=== PATIENT | female | born 1965 | race Caucasian/White ===

== ENCOUNTER → 2024-05-20 | Outpatient (CLI) | payer OTHER, SELFPAY ==
[2024-05-20 11:21] LABS: Hemoglobin 15.9 g/dL (12.0-15.0); Mean Corp Hgb Conc 32.4 g/dL (32-36); Mean Corpuscular Hgb 29.9 pg (27.0-32.0); Mean Corpuscular Volume 92.3 fL (81-99); Mean Platelet Vol. 10.1 fl (6.2-12.0); Platelet Count 216 K/mm3 (150-450); RBC Distribution Width CV 12.8 % (11.6-14.6); RBC Distribution Width SD 43.4 fl (35.1-43.9); Red Blood Count 5.31 M/mm3 (4.2-5.4); White Blood Count 9.9 K/mm3 (4.4-11.0)
[2024-05-20 11:54] LABS: AST(SGOT) 17 U/L (15-37); Alanine Aminotransfer ALT/SGPT 26 U/L (13-56); Albumin, Serum 3.7 g/dL (3.2-5.0); Alkaline Phosphatase 64 U/L (45-117); Anion Gap 5 (5-15); BUN 8 mg/dL (7-18); BUN/Creat Ratio 11.9 RATIO (10-20); Calcium,Total 9.4 mg/dL (8.5-10.1); Chloride 109 mmol/L (98-107); Cholesterol 98 mg/dL (200); Creatinine, Serum 0.67 mg/dL (0.55-1.02); EST Glomerular Filtration Rate 95 mL/min (>60); Est Glom Filt Rate - Afr Amer 115 mL/min (>60); Globulin 3.6 g/dL (2.2-4.2); Glucose 135 mg/dL (74-106); High Density Lipoprotein 41 mg/dL; Potassium 3.8 mmol/L (3.5-5.1); Protein, Total 7.3 g/dL (6.4-8.2); Sodium Level 139 mmol/L (136-145); Triglycerides 103 mg/dL; Very Low Density Lipoprotein 21 mg/dL (5-40)
== END | disposition home or self-care (01) ==
LOC: LAB 10:38
PROVIDERS: PCP Preventive Medicine Occupational Medicine; Referring Provider Internal Medicine Cardiovascular Disease; Visit Provider Internal Medicine Cardiovascular Disease
DX: I25.10 Atherosclerotic heart disease of native coronary artery without angina pectoris (principal); I74.09 Other arterial embolism and thrombosis of abdominal aorta; J44.9 Chronic obstructive pulmonary disease, unspecified; E11.9 Type 2 diabetes mellitus without complications
CPT/HCPCS: 36415; 80053; 80061; 85027

== ENCOUNTER → 2024-06-12 | Outpatient (CLI) | payer OTHER, SELFPAY ==
--- NOTE | 2024-06-12 06:56 | ECHOD_ITS ---
Reason For Study: CHEST PAIN Procedure This was a 2D Doppler, Color Flow transthoracic echocardiogram. Exam performed in department. Left Ventricle Normal LV size. Mild concentric left ventricular hypertrophy. The left ventricular ejection fraction is 65 %. Stage 1 diastolic dysfunction. Right Ventricle Normal right ventricle. Atria The left atrium is mildly enlarged. Normal right atrium. Bubble contrast study is negative for PFO/ASD. Mitral Valve There is Mild focal posterior mitral annular calcification. Trivial mitral valve insufficiency. Tricuspid Valve Trivial tricuspid valve insufficiency. Unable to estimate RV systolic pressure due to insufficient tricuspid regurgitant envelope. Aortic Valve Trisinus/trileaflet aortic valve. Pulmonic Valve The pulmonic valve is not well visualized. Great Vessels Calcified aortic root. Pericardium/Pleural No pericardial effusion. Medication Performed a rapid injection of agitated mix of 9 cc saline and 1cc air to assess for atrial septal defect. MMode/2D Measurements & Calculations LVIDd: 3.7 cm IVSd: 1.1 cm LAV(MOD-bp): 38.4 ml LVIDs: 2.4 cm LVPWd: 1.3 cm RVDd: 3.0 cm FS: 35.9 % LAV(MOD-bp) Indexed: 22.5 ml/m2 LAV(MOD-sp2): 53.7 ml LAV(MOD-sp4): 26.7 ml SV(MOD-sp4): 45.2 ml SV(sp4-el): 47.8 ml LVAd ap4: 25.5 cm2 LVLd ap4: 7.8 cm EDV(MOD-sp4): 68.7 ml EDV(sp4-el): 70.4 ml LVAs ap4: 13.5 cm2 LVLs ap4: 6.8 cm ESV(MOD-sp4): 23.6 ml ESV(sp4-el): 22.5 ml EF(MOD-sp4): 65.7 % EF(sp4-el): 68.0 % LA dimension(2D): 4.0 cm LA A4 area: 13.6 cm2 RA A4 area: 14.1 cm2 Time Measurements MV dec time: 0.16 sec Doppler Measurements & Calculations MV E max kj: 54.0 cm/sec Lat Peak E' Kj: 11.8 cm/sec Med Peak E' Kj: 8.6 cm/sec MV A max kj: 79.7 cm/sec E/E' lat: 4.6 E/E' med: 6.3 MV E/A: 0.68 MV V2 max: 90.0 cm/sec MV dec slope: 352.2 cm/sec2 Ao V2 max: 145.8 cm/sec MV max P.2 mmHg Ao max P.5 mmHg MV V2 mean: 60.5 cm/sec Ao V2 mean: 100.4 cm/sec MV mean P.6 mmHg Ao mean P.6 mmHg MV V2 VTI: 23.8 cm Ao V2 VTI: 31.7 cm AV (velocity ratio): 0.69 LV V1 max: 103.5 cm/sec PA V2 max: 85.1 cm/sec LV V1 max P.3 mmHg PA V2 mean: 67.3 cm/sec LV V1 mean P.7 mmHg LV V1 mean: 78.3 cm/sec LV V1 VTI: 21.8 cm ECHO/Echo Complete Interpretation Summary Mild concentric left ventricular hypertrophy. The left ventricular ejection fraction is 65 %. Stage 1 diastolic dysfunction. The left atrium is mildly enlarged. There is Mild focal posterior mitral annular calcification. Calcified aortic root. Ordering Physician: Andrew Maldonado Referring Physician: Andrew Maldonado Performed By: Marielos Cool RCS
--- NOTE | 2024-06-15 09:59 | STRESSREP_ITS ---
Stress Test Report Date: 06/12/2024 Procedure: Pharmacologic stress nuclear imaging study Indications: Chest pain Consent: Per the patient Procedure: The patient underwent pharmacologic (Regadenoson 0.4mg ) evaluation with a peak heart rate of 102 beats per minute (63%predicted maximal heart rate) and a peak blood pressure of 108/62 mmHg. The baseline ECG demonstrated sinus rhythm. The peak pharmacologic ECG demonstrated no ischemic changes. There were no cardiac dysrhythmias pretest, during pharmacologic infusion, or recovery. There was no complaint of chest discomfort during pharmacologic infusion or recovery. The patient was injected with 11.9 millicuries of technetium 99m Cardiolite and subsequently rest SPECT Cardiolite nuclear imaging was obtained in the horizontal long, vertical long, and short axis views. The patient underwent pharmacologic (Regadenoson) evaluation. The patient was injected with 34.7 millicuries of technetium 99m Cardiolite and subsequently stress SPECT Cardiolite nuclear imaging was obtained in the horizontal long, vertical long, and short axis views. A gated Cardiolite study at peak stress was obtained. The examination was stopped secondary to completion of protocol. Rest and stress SPECT Cardiolite nuclear imaging status post realignment, normalization, and attenuation correction demonstrate mildly decreased perfusion of the apex both in the breast as well as post pharmacological stress. Normal wall motion suggests attenuation artifact. There is end systolic thickening and brightening. The gated Cardiolite study demonstrates myocardial thickening and inward wall motion. The reported LVEF is 75%. Impression: 1. Pharmacologic (Regadenoson) evaluation 2. Peak pharmacologic ECG with no ischemic changes. 3. There were no cardiac dysrhythmias pretest, during pharmacologic infusion, or recovery. 5. Rest and stress SPECT Cardiolite nuclear imaging demonstrate relative uniform tracer uptake and myocardial perfusion appearing within normal limits. 6. The gated Cardiolite study reports an LVEF of 75%. This note was generated with [employer] software. It may contain incorrect words, spelling, and punctuation that were not noted in checking the note before signing.
== END | disposition home or self-care (01) ==
LOC: CVS 06:53
PROVIDERS: PCP Registered Nurse; Referring Provider Internal Medicine Cardiovascular Disease; Visit Provider Internal Medicine Cardiovascular Disease
DX: I25.10 Atherosclerotic heart disease of native coronary artery without angina pectoris (principal); I74.09 Other arterial embolism and thrombosis of abdominal aorta; J44.9 Chronic obstructive pulmonary disease, unspecified; E11.9 Type 2 diabetes mellitus without complications; G47.33 Obstructive sleep apnea (adult) (pediatric); E78.5 Hyperlipidemia, unspecified
CPT/HCPCS: 78452; 93017; 93306; A9500; A4216; J2785

== ENCOUNTER → 2024-08-19 | Outpatient (CLI) | payer MEDICAID, SELFPAY | END | disposition home or self-care (01) | PROVIDERS: PCP Registered Nurse; Referring Provider Internal Medicine Cardiovascular Disease; Visit Provider Internal Medicine Cardiovascular Disease | DX: J44.9 Chronic obstructive pulmonary disease, unspecified (principal); I25.10 Atherosclerotic heart disease of native coronary artery without angina pectoris; I51.89 Other ill-defined heart diseases; R06.09 Other forms of dyspnea | CPT/HCPCS: 94060; 94726; 94729 ==

== ENCOUNTER 2024-09-02 08:15 | Day surgery (SDC) | payer MEDICAID, SELFPAY ==
[2024-09-01 07:51] VITALS: BMI 25.0
[2024-09-02 09:12] LABS: Absolute Lymphocyte Count 2.58 X10^3/uL (0.83-4.51); Absolute Neutrophil Count 5.6 X10^3/uL (2.0-7.7); Basophil# 0.09 X10^3/uL; Eosinophil# 0.07 X10^3/uL; Eosinophils% 0.8 % (0-5); Hematocrit 50.8 % (37-47); Hemoglobin 16.7 g/dL (12.0-15.0); Lymphocyte # 2.58 X10^3/ul (0.83-4.51); Lymphocyte % 28.1 % (19-41); Mean Corp Hgb Conc 32.9 g/dL (32-36); Mean Corpuscular Hgb 30.2 pg (27.0-32.0); Mean Corpuscular Volume 91.9 fL (81-99); Mean Platelet Vol. 9.6 fl (6.2-12.0); Monocyte# 0.78 X10^3/uL; Monocyte% 8.5 % (0-10); NRBC Flagged by Analyzer 0 % (0-5); Neutrophil # 5.58 X10^3/uL (2.7-7.7); Neutrophil % 60.8 % (47-70); Platelet Count 225 K/mm3 (150-450); RBC Distribution Width CV 12.4 % (11.6-14.6); Red Blood Count 5.53 M/mm3 (4.2-5.4); White Blood Count 9.2 K/mm3 (4.4-11.0)
[2024-09-02 09:36] LABS: Anion Gap 5 (5-15); BUN 17 mg/dL (7-18); BUN/Creat Ratio 22.8 RATIO (10-20); Calcium,Total 9.4 mg/dL (8.5-10.1); Chloride 108 mmol/L (98-107); Creatinine, Serum 0.75 mg/dL (0.55-1.02); EST Glomerular Filtration Rate 84 mL/min (>60); Est Glom Filt Rate - Afr Amer 102 mL/min (>60); Estimated Creatinine Clearance 74.69 ml/min; Glucose 176 mg/dL (74-106); Potassium 3.9 mmol/L (3.5-5.1); Sodium Level 139 mmol/L (136-145)
--- NOTE | 2024-09-02 10:24 | PCM.HP.STD ---
HPI - General HPI Narrative CHIDI VELASQUEZ, is a 59 F who presents with prior left common iliac artery stent with stenosis proximal to leading edge adjacent to bifurcation. She presents for angiogram with possible intervention to preserve stent patency [facility] Medical History Aortoiliac occlusive disease Atherosclerosis of [place] arteries of extremities with rest pain, left leg COPD (chronic obstructive pulmonary disease) Coronary artery disease CALVIN (generalized anxiety disorder) Hyperlipidemia Lumbar foraminal stenosis MDD (major depressive disorder) AVE (obstructive sleep apnea) Peripheral neuropathy Type 2 diabetes mellitus Home Medications ?Medication ?Instructions ?Recorded ?Last Taken ?Type mometasone 220 mcg/actuation(60 220 mcg inhalation BID 07/03/14 Unknown History doses) breath activated powder inhaler (Asmanex Corso12haler) sitagliptin phosphate 50 1 ea PO BID 07/03/14 09/01/24 History mg-metformin 500 mg tablet (Janumet) atorvastatin 40 mg tablet 40 mg PO DAILY 05/12/24 Unknown History gabapentin 600 mg tablet 600 mg PO DAILY 05/12/24 Unknown History methocarbamol 500 mg tablet 500 mg PO QHS 05/12/24 Unknown History metoprolol succinate 25 mg capsule 25 mg PO DAILY 05/12/24 Unknown History sprinkle, ext. release 24 hr pantoprazole 40 mg tablet,delayed 40 mg PO DAILY 05/12/24 Unknown History release tiotropium bromide 2.5 2 puff inhalation DAILY 05/12/24 Unknown History mcg/actuation mist for inhalation (Spiriva Respimat) albuterol sulfate 90 mcg/actuation 1 inh inhalation ONCE 05/20/24 Unknown History aerosol inhaler clopidogrel 75 mg tablet 75 mg PO QDAY 05/20/24 09/01/24 History empagliflozin 10 mg tablet 10 mg PO DAILY 05/20/24 09/01/24 History (Jardiance) lidocaine 5 % topical patch 1 patch topical DAILY 05/20/24 Unknown History tramadol 50 mg tablet 50 mg PO DAILY 05/20/24 Unknown History aripiprazole 5 mg tablet 5 mg PO QDAY 08/11/24 Unknown History escitalopram oxalate 20 mg tablet 20 mg PO QDAY 08/11/24 Unknown History hydroxyzine HCl 25 mg tablet 25 mg PO TID 08/11/24 Unknown History Allergy/AdvReac Type Severity Reaction Status Date / Time No Known Allergies Allergy Verified 08/11/24 10:18 Family History Mother Heart disease Father Cancer Surgical History History of cardiac catheterization History of carotid endarterectomy History of cholecystectomy History of colonoscopy History of hysterectomy History of oophorectomy History of spinal surgery Hx of CABG Presence of stent in coronary artery S/P insertion of iliac artery stent (~05/2022) Social History Smoking Status: Former smoker Tobacco: How many years used: 38 how long ago did patient quit smokin months Vital Signs Vital Signs Vital Signs: Weight Weight: 146 lb Body Mass Index (BMI) 25.0 Physical Exam Const alert, oriented x3, no apparent distress and healthy appearing General Appearance: cooperative; Negative for combative or lethargic Orientation / Consciousness: awake Exam Limitations: no limitations HEENT Head and Scalp: normocephalic and atraumatic Eyes EOMs intact bilaterally General Eye: normal appearance of both eyes Neck full ROM General: trachea midline Resp normal respiratory effort and no use of accessory muscles Effort and Inspection: Negative for labored, stridor or audible wheezes Cardio regular rate and regular rhythm Back/Spine Cervical Spine: cervical ROM normal Extremity full ROM, normal capillary refill and no clubbing, cyanosis or edema Skin no rashes or lesions noted and no wounds Neuro oriented x3, CN's II-XII intact bilaterally, no focal motor deficits and no sensory deficits noted Psych thought process normal, cooperative, affect normal, speech normal and activity/motor behavior normal Results Lab / Micro Data 09/02/24 08:59 09/02/24 08:59 Labs: Laboratory Results - last 24 hr 09/02/24 08:59: WBC 9.2, RBC 5.53 H, Hgb 16.7 H, Hct 50.8 H, MCV 91.9, MCH 30.2, MCHC 32.9, RDW Std Deviation 42.0, RDW Coeff of [place] 12.4, Plt Count 225, MPV 9.6, Immature Gran % (Auto) 0.800, Neut % (Auto) 60.8, Lymph % (Auto) 28.1, [place] % (Auto) 8.5, Eos % (Auto) 0.8, Baso % (Auto) 1.0, Absolute Neuts (auto) 5.6, Absolute Lymphs (auto) 2.58, Nucleated RBC % 0, Sodium 139, Potassium 3.9, Chloride 108 H, Carbon Dioxide 26.0, Anion Gap 5, BUN 17, Creatinine 0.75, Estim Creat Clear Calc 74.69, Est GFR (MDRD) Af Amer 102, Est GFR (MDRD) Non-Af 84, BUN/Creatinine Ratio 22.8 H, Glucose 176 H, Calcium 9.4 Assessment & Plan Assessment/Plan (1) Peripheral arterial disease: PLAN: -angiogram possible kissing iliac stents
--- NOTE | 2024-09-02 16:42 | OP.PCM_ITS ---
Operative Report (Standard) Operative Information Surgery/Procedure Performed: Aortogram and pelvic angiogram Intravascular ultrasound aorta, left common iliac, left external iliac arteries Angioplasty and stent of the left common iliac artery Surgeon: Alejandro Quintana Date of Procedure: 09/02/24 Procedure Start Time: 11:00 Procedure Stop Time: 12:00 Pre-Operative Diagnosis: Atherosclerosis with claudication of left lower extremity with stenosis above prior iliac stent, at risk of stent Post-Operative Diagnosis: Same Select all DRAINS/GRAFTS/IMPLANTS that apply: Implanted device Implanted device details: Bard Lifestream 9x58 balloon expandable covered stent Type of Anesthesia: Local and Sedation,Conscious Estimated Blood Loss: 3 Specimen collected: No Description of surgery: HPI: Patient is a 59-year-old female who previously underwent a left common iliac artery stenting for lifestyle limiting claudication in 2021 at an outside facility. She had minimal improvement in her symptoms and subsequent surveillance vascular studies have suggested worsening left lower extremity perfusion. She had a CT angiography which revealed greater than 60% stenosis of the common iliac artery just proximal to the previously placed stent. Is unclear whether this was missed at the original intervention or if this has been progression of disease adjacent to the stent. She presents now for angiography with possible iliac artery intervention. Description of procedure: Upon obtaining form consent and verification correct patient procedure site patient was taken to the Application Software [facility] where she was positioned prepped and draped in usual sterile fashion. Timeouts performed consultation ministered Versed and fentanyl. Skin overlying the left common femoral artery was anesthetized 1% lidocaine the vessel accessed under ultrasound guidance with micropuncture needle wire. This was then exchanged for micropuncture sheath through which injection iliofemoral angiogram was performed revealing satisfactory positioning with no extravasation or dissection. This revealed stenosis at the inferior aspect of the prior stent as well as superior to it. There is also poor stent wall apposition of the distal aspect. Through the micropuncture sheath a Bentson wire was advanced traversing the prior stent and into the abdominal aorta. The micropuncture sheath was exchanged for a short 5 [place] sheath and through this an Omni Flush catheter advanced into the abdominal aorta and digital traction aortogram pelvic angiogram was performed. This revealed that there was no significant atherosclerosis at the origin of the contralateral iliac artery and the lesion appeared to be just below the left common iliac artery origin. So there is potentially room to perform intervention without the need for kissing iliac stents. An 018 wire was then advanced through the flush catheter which was then withdrawn and intravascular ultrasound probe advanced and recorded pullback performed of the aorta, left common iliac artery, left external iliac artery. This confirmed severe stenosis greater than 80% just superior to the previously placed stent as well as a mobile dissection flap inferior to the stent. This also revealed that the stent was fairly undersized compared to the [place] vessel. Finally this confirmed that we were able to treat the culprit lesion without need to extend to the aorta. The patient was then heparinized allowed to circulate for 3 minutes. The intravascular ultrasound probe was withdrawn and the catheter readvanced, the 018 wire exchanged for the Bentson wire and the 5 [place] sheath exchanged for 7 [place] Brite tip sheath. A marker catheter was then advanced in the position and magnified subtraction angiography performed of the iliac artery. This confirmed need for approximately 6 cm length stent. A Bard Lifestream 9 x 58 balloon expandable covered stent was then brought in field prep for manufactures instructions. This was then advanced into position with satisfactory coverage of the proximal lesion and inferior to the aortic bifurcation. The stent also covered the dissection inferior to the prior stent and landed cephalad to the internal iliac artery origin. Balloon was then inflated to nominal and then deflated withdrawn. Repeat angiography revealed satisfactory stent positioning with no residual stenosis either proximal or distal and no extravasation or dissection. The pre-existing dissection was covered in its entirety. There was poor stent to wall apposition at the distal aspect so a 10 mm x 2 angioplasty balloon was then advanced into the inferior aspect of the stent and inflated to nominal and then deflated withdrawn. Repeat angiography revealed improved stent wall apposition. The flush catheter then readvanced into the abdominal aorta and completion subtraction angiography performed in this position which revealed brisk contrast transit with no extravasation or dissection. There is no compromise of the contralateral iliac artery. Injection of this position did not reveal any contrast outside the distal aspect of the stent. A Mynx closure device was then deployed followed by 5 minutes minute pressure with satisfactory stasis noted. The patient was taken recovery area with plan discharged to home. Surgical Findings: See above. 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
== END 2024-09-02 23:59 | disposition home or self-care (01) ==
PROVIDERS: PCP Registered Nurse; Referring Provider Surgery Trauma Surgery; Visit Provider Surgery Trauma Surgery
DX: I73.9 Peripheral vascular disease, unspecified (principal); J44.9 Chronic obstructive pulmonary disease, unspecified; E11.51 Type 2 diabetes mellitus with diabetic peripheral angiopathy without gangrene; E11.42 Type 2 diabetes mellitus with diabetic polyneuropathy; I25.10 Atherosclerotic heart disease of native coronary artery without angina pectoris; E78.5 Hyperlipidemia, unspecified; G47.33 Obstructive sleep apnea (adult) (pediatric); Z95.820 Peripheral vascular angioplasty status with implants and grafts; Z79.51 Long term (current) use of inhaled steroids; Z87.891 Personal history of nicotine dependence; Z79.02 Long term (current) use of antithrombotics/antiplatelets; Z79.899 Other long term (current) drug therapy; Z79.84 Long term (current) use of oral hypoglycemic drugs; Z95.5 Presence of coronary angioplasty implant and graft; Z95.1 Presence of aortocoronary bypass graft
CPT/HCPCS: 36200; 36415; 37221; 37252; 37253; 75625; 76937; 80048; 85025; 99152; 99153; C1753; C1760; C1769; C1874; C1894; Q9967; C1725

== ENCOUNTER → 2024-10-01 | Outpatient (CLI) | payer MEDICAID, SELFPAY ==
[2024-10-01 11:48] LABS: Absolute Lymphocyte Count 4.04 X10^3/uL (0.83-4.51); Absolute Neutrophil Count 5.4 X10^3/uL (2.0-7.7); Basophil# 0.16 X10^3/uL; Basophil% 1.5 % (0-1); Eosinophil# 0.14 X10^3/uL; Eosinophils% 1.3 % (0-5); Hematocrit 49.5 % (37-47); Hemoglobin 16.3 g/dL (12.0-15.0); Lymphocyte # 4.04 X10^3/ul (0.83-4.51); Mean Corp Hgb Conc 32.9 g/dL (32-36); Mean Corpuscular Hgb 30.7 pg (27.0-32.0); Mean Corpuscular Volume 93.2 fL (81-99); Mean Platelet Vol. 9.6 fl (6.2-12.0); Monocyte# 0.73 X10^3/uL; Monocyte% 6.9 % (0-10); NRBC Flagged by Analyzer 0 % (0-5); Neutrophil # 5.43 X10^3/uL (2.7-7.7); Neutrophil % 51.1 % (47-70); POSITIVE MORPHOLOGY YES; Platelet Count 235 K/mm3 (150-450); RBC Distribution Width CV 12.5 % (11.6-14.6); RBC Distribution Width SD 42.7 fl (35.1-43.9); Red Blood Count 5.31 M/mm3 (4.2-5.4); White Blood Count 10.6 K/mm3 (4.4-11.0)
[2024-10-01 11:53] LABS: Differential Indicated SCAN CRITERIA MET
[2024-10-01 13:51] LABS: Atypical Lymphocyte 1+ %; Platelet Estimate ADEQUATE (ADEQ); Red Cell Morphology NORM C+C NORMAL (NORM C&C)
[2024-10-04 12:07] LABS: Alternaria tenuis <0.10 kU/L (Class 0); Ash, White <0.10 kU/L (Class 0); Aspergillus fumigatus <0.10 kU/L (Class 0); Bermuda Grass <0.10 kU/L (Class 0); Birch <0.10 kU/L (Class 0); Black Walnut <0.10 kU/L (Class 0); Cat Hair / Dander,Stand <0.10 kU/L (Class 0); Cedar, Mountain <0.10 kU/L (Class 0); Cladosporium herbarum <0.10 kU/L (Class 0); Cockroach, American <0.10 kU/L (Class 0); Cottonwood <0.10 kU/L (Class 0); D farinae Mite <0.10 kU/L (Class 0); D pteronyssinus <0.10 kU/L (Class 0); Dog Epithelia <0.10 kU/L (Class 0); Elm, American White <0.10 kU/L (Class 0); Immunoglobulin E 9 IU/mL (6-495); Maple/Box Elder <0.10 kU/L (Class 0); Mouse Urine <0.10 kU/L (Class 0); Mulberry, White <0.10 kU/L (Class 0); Oak, White <0.10 kU/L (Class 0); Pecan <0.10 kU/L (Class 0); Penicillium Notatum <0.10 kU/L (Class 0); Pigweed, Rough <0.10 kU/L (Class 0); Ragweed, Short/Common <0.10 kU/L (Class 0); Russian Thistle <0.10 kU/L (Class 0); Sheep Sorrel <0.10 kU/L (Class 0); Sycamore, American <0.10 kU/L (Class 0); Timothy Grass <0.10 kU/L (Class 0)
[2024-10-05 09:07] LABS: Immunoglobulin E 8 IU/mL (6-495)
== END | disposition home or self-care (01) ==
LOC: PAVLAB 11:28
PROVIDERS: PCP Registered Nurse; Referring Provider Internal Medicine Critical Care Medicine; Visit Provider Internal Medicine Critical Care Medicine
DX: J45.909 Unspecified asthma, uncomplicated (principal); F17.211 Nicotine dependence, cigarettes, in remission
CPT/HCPCS: 36415; 82785; 85025; 86003

== ENCOUNTER → 2024-10-14 | Outpatient (CLI) | payer MEDICAID, SELFPAY ==
--- NOTE | 2024-10-14 12:35 | ADUL_ITS ---
Reason For Study: S/P L YEIMY Stent Left Velocities Ext. Iliac Artery, dist = 106.7 cm./sec. Common Femoral Artery, mid = 119.0 cm./sec. Supf Femoral Artery, prox = 100.8 cm./sec. Supf Femoral Artery, mid = 80.1 cm./sec. Supf Femoral Artery, dist. = 52.7 cm./sec. Profunda Femoral Artery = 85.3 cm./sec. Popliteal Artery, mid = 53.9 cm./sec. Post. Tibial Artery, prox = 82.1 cm./sec. Post. Tibial Artery, mid = 57.6 cm./sec. Post. Tibial Artery, dist = 94.4 cm./sec. Peroneal Artery, prox = 39.2 cm./sec. Peroneal Artery, mid = 45.3 cm./sec. Peroneal Artery,dist = 35.5 cm./sec. Ant. Tibial Artery, prox = 47.8 cm./sec. Ant. Tibial Artery, mid = 60.0 cm./sec. Ant. Tibial Artery, dist = 78.4 cm./sec. Procedure Exam performed in department. VL/US Art Duplex Unilat Lower Ext Interpretation Summary Left lower extremity arteries patent with normal velocities and no evidence of stenosis Ordering Physician: Marlee Araujo Referring Physician: Ce Loza NP Performed By: Vicenta Marie RVT and Student
--- NOTE | 2024-10-14 12:35 | ART_ITS ---
Reason For Study: S/P L YEIMY Stent Procedure A bilateral lower extremity continuous wave Doppler with analog waveform analysis and ankle brachial indexes. Left Segmental Pressures Left brachial= 111mmHg. Left posterior tibial artery = 109mmHg. Left dorsalis pedis artery = 117mmHg. Left digit = 66 mmHg. The left dorsalis pedis waveforms are triphasic. The left posterior tibial artery waveforms are triphasic. Right Segmental Pressures Right brachial= 112mmHg. Right posterior tibial artery = 108mmHg. Right dorsalis pedis artery = 121mmHg. Right digit = 71 mmHg. The right dorsalis pedis waveforms are triphasic. The right posterior tibial artery waveforms are triphasic. Indices The right ankle brachial index by the dorsalis pedis is 1.08. The right ankle brachial index by the posterior tibial artery is 0.96. The right digital-brachial index is 0.63. The left ankle brachial index by the dorsalis pedis is 1.04. The left ankle brachial index by the posterior tibial artery is 0.97. The left digital-brachial index is 0.59. VL/Ankle Brachial Index Interpretation Summary Right TASIA 1.08, normal. Doppler/PVR waveforms of the right ankle normal at rest . TBI diminished, pedal.digit disease vs spasm Left TASIA 1.04, normal. Doppler/PVR waveforms of the left ankle normal at rest. TBI diminished, pedal.digit disease vs spasm Ordering Physician: Marlee Araujo Referring Physician: MARLEE ARAUJO Performed By: Vicenta Marie RVT and Student
== END | disposition home or self-care (01) ==
LOC: CVS 12:33
PROVIDERS: PCP Registered Nurse; Referring Provider Physician Assistant; Visit Provider Physician Assistant
DX: Z48.812 Encounter for surgical aftercare following surgery on the circulatory system (principal); I73.9 Peripheral vascular disease, unspecified
CPT/HCPCS: 93922; 93926

== ENCOUNTER → 2024-10-15 | Outpatient (CLI) | payer MEDICAID, SELFPAY ==
[2024-10-15 11:38] VITALS: PULSE 87; PULSE 90; PULSE 92; PULSE 94; PULSE 95; O2SAT 95; O2SAT 96; O2SAT 97
--- NOTE | 2024-10-19 10:29 | PCM.PSN.6M ---
PSN 6 Minute Walk Test 6 Minute Walk Test 6 Minute Walk Test: 6 Minute Walk Test PSN:6-Minute Walk Test Start: 10/15/24 11:38 Freq: Status: Active Protocol: [id number].[id number] Document 10/15/24 11:38 EW (Rec: 10/15/24 11:40 EW [id number]) 6 Minute Walk Test Date Performed 10/15/24 Time Performed 11:30 Height 5 ft 2 in Weight: 157 lb Weight in Pounds 157.0 lbs Assistive device used: None Pre-test Oxygen Delivery Method Room Air Pulse Ox (%) 97 Pulse Rate (60-100 beats/min) 90 Dyspnea Fran Scale (0-10) 0 Exertion Fran Scale (6-20) 7 1st minute Oxygen Delivery Method Room Air Pulse Ox (%) 95 Pulse Rate (60-100 beats/min) 94 2nd minute Oxygen Delivery Method Room Air Pulse Ox (%) 96 Pulse Rate (60-100 beats/min) 92 3rd minute Oxygen Delivery Method Room Air Pulse Ox (%) 96 Pulse Rate (60-100 beats/min) 95 4th minute Oxygen Delivery Method Room Air Pulse Ox (%) 95 Pulse Rate (60-100 beats/min) 94 5th minute Oxygen Delivery Method Room Air Pulse Ox (%) 95 Pulse Rate (60-100 beats/min) 94 6th minute Oxygen Delivery Method Room Air Pulse Ox (%) 95 Pulse Rate (60-100 beats/min) 90 Post-test Oxygen Delivery Method Room Air Pulse Ox (%) 97 Pulse Rate (60-100 beats/min) 87 Dyspnea Fran Scale (0-10) 1 Exertion Frna Scale (6-20) 14 Full Laps Walked 17 Partial Lap, Number of Tiles Walked 0 Total Distance Walked (ft) 1003 Interpretation Interpretation: The patient ambulated 1003 feet over the course of 6 minutes beginning on room air without assistive devices. Pretesting oxygen saturation was noted to be 97% on room air. With ambulation, the jerel oxygen saturation was 95%. There was no significant exertional oxygen desaturation. Recommendations Recommendations: There is no indication for the use of supplemental oxygen at this time.
== END | disposition home or self-care (01) ==
LOC: PSN 11:14
PROVIDERS: PCP Registered Nurse; Referring Provider Internal Medicine Critical Care Medicine; Visit Provider Internal Medicine Critical Care Medicine
DX: F17.211 Nicotine dependence, cigarettes, in remission (principal); J45.909 Unspecified asthma, uncomplicated
CPT/HCPCS: 94618

== ENCOUNTER → 2024-10-17 | Outpatient (CLI) | payer MEDICAID, SELFPAY ==
--- NOTE | 2024-10-17 07:34 | CT_ITS ---
EXAM: CT CHEST, LUNG CANCER SCREENING WITHOUT INTRAVENOUS CONTRAST CLINICAL INDICATION: h/o tobacco dependency TECHNIQUE: Helically acquired images were obtained of the chest without intravenous contrast using low dose (LDCT) lung cancer screening protocol. This CT exam was performed using one or more of the following dose reduction techniques: automated exposure control, adjustment of the mA and/or kV according to patient size, and/or use of iterative reconstruction technique. COMPARISON: No relevant prior studies available. FINDINGS: LUNGS AND PLEURAL SPACES: Paraseptal emphysematous changes of the upper lobes of lungs noted. No pleural effusion or thickening. No pneumothorax. No evidence of a lung mass or nodule. HEART: Surgical changes of coronary artery bypass graft (CABG). No pericardial effusion. Normal heart size. Coronary artery calcification and stents are present. MEDIASTINUM: Normal. No mediastinal or hilar adenopathy. Esophagus is unremarkable. No hiatal hernia. THYROID: Normal. No thyroid nodules or calcification. BONES/JOINTS: No suspicious lytic or blastic abnormality. VASCULATURE: See above. LYMPH NODES: Normal. No enlarged lymph nodes. CT/Low Dose CT Lung Screening IMPRESSION: 1. No evidence of a lung mass or nodule. 2. Paraseptal emphysematous changes of the lung apices. 3. Lung-RADS score: 1S - Additional clinically significant or potentially clinically significant findings are described. Recommend continued annual screening with a low-dose CT (LDCT) in 12 months. Electronically Signed: Mode Nicolas MD at 17:03 [facility] ,
== END | disposition home or self-care (01) ==
LOC: CT 07:20
PROVIDERS: PCP Registered Nurse; Referring Provider Internal Medicine Critical Care Medicine; Visit Provider Internal Medicine Critical Care Medicine
DX: Z12.2 Encounter for screening for malignant neoplasm of respiratory organs (principal); F17.211 Nicotine dependence, cigarettes, in remission; J45.909 Unspecified asthma, uncomplicated

== ENCOUNTER → 2024-11-02 | Outpatient (CLI) | payer MEDICARE, MEDICAID, SELFPAY ==
[2024-11-02 11:22] LABS: AST(SGOT) 9 U/L (15-37); Alanine Aminotransfer ALT/SGPT 20 U/L (13-56); Albumin, Serum 3.8 g/dL (3.2-5.0); Alkaline Phosphatase 72 U/L (45-117); Bilirubin, Direct 0.15 mg/dL (0.00-0.30); Cholesterol 184 mg/dL (200); Globulin 3.9 g/dL (2.2-4.2); High Density Lipoprotein 44 mg/dL; Protein, Total 7.7 g/dL (6.4-8.2); Triglycerides 242 mg/dL; Very Low Density Lipoprotein 48 mg/dL (5-40)
== END | disposition home or self-care (01) ==
LOC: LAB 09:10
PROVIDERS: PCP Registered Nurse; Referring Provider Physician Assistant Medical; Visit Provider Physician Assistant Medical
DX: E78.00 Pure hypercholesterolemia, unspecified (principal)
CPT/HCPCS: 36415; 80061; 80076

== ENCOUNTER → 2025-03-04 | Outpatient (CLI) | payer MEDICARE, MEDICAID, SELFPAY ==
--- NOTE | 2025-03-04 08:39 | ART_ITS ---
Reason For Study Reason For Study: PVD Procedure A bilateral lower extremity continuous wave Doppler with analog waveform analysis,segmental pressures,and ankle brachial indexes with exercise. Left Segmental Pressures Left brachial= 144mmHg. Left posterior tibial artery = 137mmHg. Left dorsalis pedis artery = 160mmHg. Left digit = 118 mmHg. The left dorsalis pedis waveforms are triphasic. The left posterior tibial artery waveforms are triphasic. Right Segmental Pressures Right posterior tibial artery = 153mmHg. Right dorsalis pedis artery = 163mmHg. Right digit = 99 mmHg. The right dorsalis pedis waveforms are triphasic. The right posterior tibial artery waveforms are triphasic. Indices The right ankle brachial index by the dorsalis pedis is 1.13. The right ankle brachial index by the posterior tibial artery is 1.06. The right digital-brachial index is 0.69. The right post exercise ankle brachial index is 1.00. The left ankle brachial index by the dorsalis pedis is 1.11. The left ankle brachial index by the posterior tibial artery is 0.95. The left digital-brachial index is 0.82. The left post exercise ankle brachial index is 0.98. VL/Lower Ext Art Exam w/ Exercise Interpretation Summary Right TASIA 1.13, normal. Doppler/PVR waveforms of the right leg normal at rest. TBI diminished, pedal/digit disease vs spasm. Right lower extremity exhibits normal response to exercise. Left TASIA 1.11, normal. TBI and Doppler/PVR waveforms of the left leg normal at rest. Left lower extremity exhibits normal response to exercise. Ordering Physician: Marlee Araujo Referring Physician: Ce Loza Performed By: Vicenta Marie RVT
== END | disposition home or self-care (01) ==
PROVIDERS: PCP Registered Nurse; Referring Provider Physician Assistant; Visit Provider Physician Assistant
DX: Z48.812 Encounter for surgical aftercare following surgery on the circulatory system (principal); I74.09 Other arterial embolism and thrombosis of abdominal aorta
CPT/HCPCS: 93924

== ENCOUNTER 2025-07-19 09:51 | Day surgery (SDC) | payer MEDICARE, MEDICAID, SELFPAY ==
--- NOTE | 2025-07-15 11:21 | PAT.ANESEVAL ---
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 When Was Last Pacemaker Check QUESTION #4 FULL TEXT: You/Your Family Experience fever (hyperthermia) with Anesthesia Last Oral Intake Last Oral intake: Last Oral Intake NPO since Meds taken in AM with sips of water? Meds patient instructed to take am of surgery PONV PONV - brazing machine operator helper: PONV - brazing machine operator helper Female Yes 07/15/25 09:28 HX of Motion Sickness No 07/15/25 09:28 HX of N/V After Surgery No 07/15/25 09:28 Non-Smoker Yes 07/15/25 09:28 Duration of Surgery greater Yes 07/15/25 09:28 than 60 minutes Number of Risk Factors 3 07/15/25 09:28 PONV Score Moderate Risk 07/15/25 09:28 Height & Weight Height & Weight: Anesthesia: Height & Weight Height 5 ft 2 in 04/01/25 10:56 Respiratory Assessment Respiratory Assessment - brazing machine operator helper: Respiratory Tract Infection Hx - brazing machine operator helper Hx Respiratory Tract Infection No 07/15/25 09:28 STOP Sleep Apnea STOP Sleep Apnea - brazing machine operator helper: STOP Sleep Apnea - brazing machine operator helper Hx Hypertension Yes: CONTROLLED WITH MED 07/15/25 09:28 Hx Sleep Apnea Yes 07/15/25 09:28 CPAP Yes: NONCOMPLIANT 07/15/25 09:28 BIPAP No 07/15/25 09:28 Do you snore loudly (louder than talking or can be heard Do you often feel tired/ fatigued/ sleepy during daytime? Has anyone observed you stop breathing during sleep? STOP Results Positive 07/15/25 09:28 QUESTION #5 FULL TEXT : Do you snore loudly (louder than talking or can be heard through closed doors)? 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 Specify any problems Hx of Preganancy in last 3 No 07/15/25 09:28 Months Nurse Filling Out Transfusion DSCHRIBER 07/15/25 09:28 & Questions: Date: 07/15/25 07/15/25 09:28 Time: :30 07/15/25 09:28 Patient unable to answer at this time (ie. confused, unrespo /Reproduction History /Reproductive History - brazing machine operator helper: /Reproductive Hx- brazing machine operator helper Hx Now No 07/15/25 09:28 Gestational Age (in weeks): EDC: Hx Hx Para Hx Section SAB No 07/15/25 09:28 [facility] Medical History (Updated 07/15/25 @ 09:46 by Darlene Bauer) Wears glasses Post-menopausal Marijuana use Alcohol use Ambulates with cane Arthritis Blood disorder Restless legs Injury of back Injury of head and neck Syncope Dietary restriction Gastric reflux Former smoker CPAP (continuous positive airway pressure) dependence Chronic cough Hypertension Leg cramps History of pain when walking History of normal Holter exam History of echocardiogram History of stress test Cardiology follow-up encounter Ventral hernia Coronary artery disease CALVIN (generalized anxiety disorder) MDD (major depressive disorder) Lumbar foraminal stenosis Hyperlipidemia Peripheral neuropathy Type 2 diabetes mellitus COPD (chronic obstructive pulmonary disease) Atherosclerosis of [place] arteries of extremities with rest pain, left leg Aortoiliac occlusive disease Home Medications ?Medication ?Instructions ?Recorded ?Last Taken ?Type atorvastatin 40 mg tablet 40 mg PO DAILY 05/12/24 Unknown History methocarbamol 500 mg tablet 1,000 mg PO QHS 05/12/24 Unknown History pantoprazole 40 mg tablet,delayed 40 mg PO DAILY 05/12/24 Unknown History release albuterol sulfate 90 mcg/actuation 1 inh inhalation Q4H PRN shortness 05/20/24 Unknown History aerosol inhaler of breath or wheezing clopidogrel 75 mg tablet 75 mg PO QDAY 05/20/24 09/01/24 History empagliflozin 10 mg tablet 10 mg PO DAILY 05/20/24 09/01/24 History (Jardiance) lidocaine 5 % topical patch 1 patch topical QHS 05/20/24 Unknown History aripiprazole 5 mg tablet 5 mg PO QDAY 08/11/24 Unknown History hydroxyzine HCl 25 mg tablet 25 mg PO TID PRN anxiety 08/11/24 Unknown History aspirin 81 mg tablet,delayed 81 mg PO QDAY 09/16/24 Unknown History release fluticasone 250 mcg-salmeterol 50 1 ea inhalation BID 10/01/24 Unknown History mcg/dose blistr powdr for inhalation (Advair Diskus) fluticasone propionate 50 2 spray intranasal QDAY 10/01/24 Unknown History mcg/actuation nasal spray,suspension (Allergy Relief (fluticasone)) amlodipine 5 mg tablet 5 mg PO QDAY #90 tabs 04/01/25 Unknown Rx metoprolol succinate 50 mg 50 mg PO QDAY #90 tabs 04/01/25 Unknown Rx tablet,extended release 24 hr tramadol 50 mg tablet 100 mg PO Q8H PRN pain 04/01/25 Unknown History cinnamon bark 500 mg capsule 2,000 mg PO BID 07/15/25 Unknown History (Cinnamon) naproxen 500 mg tablet,delayed 500 mg PO BID 07/15/25 Unknown History release pregabalin 200 mg capsule 200 mg PO TID PRN pain (scale 07/15/25 Unknown History score 1-3) tirzepatide 5 mg/0.5 mL 5 mg subcut MO 07/15/25 Unknown History subcutaneous pen injector (Mounjaro) tizanidine 4 mg tablet 4 mg PO BID PRN muscle spasticity 07/15/25 Unknown History Allergy/AdvReac Type Severity Reaction Status Date / Time No Known Allergies Allergy Verified 07/15/25 09:15 Family History Mother Heart disease Father Cancer Surgical History (Updated 07/15/25 @ 09:46 by Darlene Bauer) Hx of arthroscopic knee surgery H/O angioplasty S/P insertion of iliac artery stent (~05/2022) History of carotid endarterectomy History of oophorectomy History of cardiac catheterization History of spinal surgery History of colonoscopy Presence of stent in coronary artery Hx of CABG History of hysterectomy History of cholecystectomy Social History Smoking Status: Former smoker Tobacco: How many years used: 38 how long ago did patient quit smokin months second hand exposure: Yes Audit: Pertinent Findings Pertinent Findings EKG Perinent findings: EKG November 09, 2024. Normal sinus rhythm. Echo (EF%) pertinent findings: Echo 06/12/2024. Mild concentric left ventricular hypertrophy. EF 65%. Stage I diastolic dysfunction. The left atrium is mildly enlarged. There is mild focal posterior mitral annular calcification. Calcified aortic root. Consult pertinent findings: Cardiology visit 04/28/2025. 59-year-old lady with history of hypertension hyperlipidemia coronary artery disease with bypass surgery 06/01/2020 left internal mammary artery to the left anterior descending coronary artery with reverse saphenous vein, aortocoronary sequential graft side to side to the posterior descending coronary artery and end-to-side to the distal obtuse marginal coronary artery. Her most recent stress test from 06/15/2024 was negative for ischemia. She appears stable at this time. Will continue with her current medical therapy, along with aggressive risk factor and lifestyle modifications. Recommendation Anesthesia Recommendation Anesthesia recommendation: OPTIMIZED for anesthesia
[2025-07-19] VITALS (9 sets, daily range): BP systolic 113–151; BP diastolic 57–79; PULSE 78–82; RESP 16–18; TEMP 36.1–36.4; O2SAT 95–99; BMI 28.2
[2025-07-19] MEDS: Lactated Ringers 1,000 ML 15 ML IV (10:47)
--- NOTE | 2025-07-19 11:04 | PCM.PRE.AN2 ---
ASA Classification* ASA Classification ASA Classification: 3 Assessment & Plan Anesthesia* Anesthesia Assessment Anesthesia Assessment: Discussed sedation and/or anesthesia options, risks, benefits, and alternatives with patient/parents/legal guardian/POA. Questions invited. The patient/parents/legal guardian/POA seems to understand and agrees to proceed with anesthesia plan. Reviewed the physical assessment, medical history, allergy history and patient home medications list prior to surgery/procedure/anesthetic and documented any changes. Performed airway and anesthesia risk assessments. Anesthesia Type Anesthesia Type: General and Block Anesthesia Focused Assessment* Temperature: 97.5 F Pulse Rate: 80 Blood Pressure: 117/79 Respiratory Rate: 16 Pulse Ox: 99 Airway Assessment Mouth opens: >3 cm Mallampati Score: II Labs Anesthesia Preop lab: CBC WBC, (4.4-11.0) 10.6 K/mm3 10/01/24, 11:39 RBC, (4.2-5.4) 5.31 M/mm3 10/01/24, 11:39 Hgb, (12.0-15.0) 16.3 g/dL H 10/01/24, 11:39 Hct, (37-47) 49.5 % H 10/01/24, 11:39 Plt Count, (150-450) 235 K/mm3 10/01/24, 11:39 CHEMISTRY Potassium, (3.5-5.1) 3.9 mmol/L 09/02/24, 08:59 Sodium, (136-145) 139 mmol/L 09/02/24, 08:59 BUN, (7-18) 17 mg/dL 09/02/24, 08:59 Creatinine, (0.55-1.02) 0.75 mg/dL 09/02/24, 08:59 Glucose, (74-106) 176 mg/dL H 09/02/24, 08:59 COAG Pre-Assessment Diagnosis/Proposed Procedure Planned Operative Procedure(s): RIGHT SHOULDER ARTHROSCOPY RTC REPAIR Anesthesia History 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 When Was Last Pacemaker Check QUESTION #4 FULL TEXT: You/Your Family Experience fever (hyperthermia) with Anesthesia Last Oral Intake Last Oral intake: Last Oral Intake NPO since 07:30 07/19/25 10:28 Meds taken in AM with sips of Yes 07/19/25 10:28 water? Meds patient instructed to take am of surgery PONV PONV - communications department head: PONV - communications department head Female Yes 07/15/25 09:28 HX of Motion Sickness No 07/15/25 09:28 HX of N/V After Surgery No 07/15/25 09:28 Non-Smoker Yes 07/15/25 09:28 Duration of Surgery greater Yes 07/15/25 09:28 than 60 minutes Number of Risk Factors 3 07/15/25 09:28 PONV Score Moderate Risk 07/15/25 09:28 Height & Weight Height & Weight: Anesthesia: Height & Weight Height 5 ft 2 in 07/19/25 10:28 Weight: 70 kg 07/19/25 10:28 Body Mass Index (BMI) 28.2 07/19/25 10:28 Respiratory Assessment Respiratory Assessment - communications department head: Respiratory Tract Infection Hx - communications department head Hx Respiratory Tract Infection No 07/15/25 09:28 STOP Sleep Apnea STOP Sleep Apnea - communications department head: STOP Sleep Apnea - communications department head Hx Hypertension Yes: CONTROLLED WITH MED 07/15/25 09:28 Hx Sleep Apnea Yes 07/15/25 09:28 CPAP Yes: NONCOMPLIANT 07/15/25 09:28 BIPAP No 07/15/25 09:28 Do you snore loudly (louder than talking or can be heard Do you often feel tired/ fatigued/ sleepy during daytime? Has anyone observed you stop breathing during sleep? STOP Results Positive 07/15/25 09:28 QUESTION #5 FULL TEXT : Do you snore loudly (louder than talking or can be heard through closed doors)? 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 Specify any problems Hx of Preganancy in last 3 No 07/15/25 09:28 Months Nurse Filling Out Transfusion DSCHRIBER 07/15/25 09:28 & Questions: Date: 07/15/25 07/15/25 09:28 Time: :30 07/15/25 09:28 Patient unable to answer at this time (ie. confused, unrespo /Reproduction History /Reproductive History - communications department head: /Reproductive Hx- communications department head Hx Now No 07/15/25 09:28 Gestational Age (in weeks): EDC: Hx Hx Para Hx Section SAB No 07/15/25 09:28 Active Medications Active Medications: Current Medications Generic Name Dose Route Start Last Admin Trade Name Freq PRN Reason Stop Dose Admin Cefazolin Sodium 2 gm/ Sodium 110 mls @ 200 mls/hr 07/19/25 12:30 Chloride IV 07/19/25 13:02 INTRAOP ONE Lactated Ringer's 1,000 mls @ 15 mls/hr 07/19/25 10:15 07/19/25 10:47 IV 15 mls/hr .Q48H JOSE Administration PFSH Medical History Wears glasses Post-menopausal Marijuana use Alcohol use Ambulates with cane Arthritis Blood disorder Restless legs Injury of back Injury of head and neck Syncope Dietary restriction Gastric reflux Former smoker CPAP (continuous positive airway pressure) dependence Chronic cough Hypertension Leg cramps History of pain when walking History of normal Holter exam History of echocardiogram History of stress test Cardiology follow-up encounter Ventral hernia Coronary artery disease CALVIN (generalized anxiety disorder) MDD (major depressive disorder) Lumbar foraminal stenosis Hyperlipidemia Peripheral neuropathy Type 2 diabetes mellitus COPD (chronic obstructive pulmonary disease) Atherosclerosis of [place] arteries of extremities with rest pain, left leg Aortoiliac occlusive disease Home Medications ?Medication ?Instructions ?Recorded ?Last Taken ?Type atorvastatin 40 mg tablet 40 mg PO DAILY 05/12/24 Unknown History methocarbamol 500 mg tablet 1,000 mg PO QHS 05/12/24 Unknown History pantoprazole 40 mg tablet,delayed 40 mg PO DAILY 05/12/24 07/19/25 History release albuterol sulfate 90 mcg/actuation 1 inh inhalation Q4H PRN shortness 05/20/24 Unknown History aerosol inhaler of breath or wheezing clopidogrel 75 mg tablet 75 mg PO QDAY 05/20/24 07/14/25 History empagliflozin 10 mg tablet 10 mg PO DAILY 05/20/24 07/14/25 History (Jardiance) lidocaine 5 % topical patch 1 patch topical QHS 05/20/24 Unknown History aripiprazole 5 mg tablet 5 mg PO QDAY 08/11/24 Unknown History hydroxyzine HCl 25 mg tablet 25 mg PO TID PRN anxiety 08/11/24 Unknown History aspirin 81 mg tablet,delayed 81 mg PO QDAY 09/16/24 Unknown History release fluticasone 250 mcg-salmeterol 50 1 ea inhalation BID 10/01/24 07/19/25 History mcg/dose blistr powdr for inhalation (Advair Diskus) fluticasone propionate 50 2 spray intranasal QDAY 10/01/24 Unknown History mcg/actuation nasal spray,suspension (Allergy Relief (fluticasone)) amlodipine 5 mg tablet 5 mg PO QDAY #90 tabs 04/01/25 07/19/25 07:30 Rx metoprolol succinate 50 mg 50 mg PO QDAY #90 tabs 04/01/25 07/19/25 Rx tablet,extended release 24 hr tramadol 50 mg tablet 100 mg PO Q8H PRN pain 04/01/25 Unknown History cinnamon bark 500 mg capsule 2,000 mg PO BID 07/15/25 Unknown History (Cinnamon) naproxen 500 mg tablet,delayed 500 mg PO BID 07/15/25 07/14/25 History release pregabalin 200 mg capsule 200 mg PO TID PRN pain (scale 07/15/25 Unknown History score 1-3) tirzepatide 5 mg/0.5 mL 5 mg subcut MO 07/15/25 07/12/25 History subcutaneous pen injector (Gertrudis) tizanidine 4 mg tablet 4 mg PO BID PRN muscle spasticity 07/15/25 Unknown History Allergy/AdvReac Type Severity Reaction Status Date / Time No Known Allergies Allergy Verified 07/15/25 09:15 Family History Mother Heart disease Father Cancer Surgical History Hx of arthroscopic knee surgery H/O angioplasty S/P insertion of iliac artery stent (~05/2022) History of carotid endarterectomy History of oophorectomy History of cardiac catheterization History of spinal surgery History of colonoscopy Presence of stent in coronary artery Hx of CABG History of hysterectomy History of cholecystectomy Social History Smoking Status: Former smoker Tobacco: How many years used: 38 how long ago did patient quit smokin months second hand exposure: Yes Review of Systems (Anesthesia) ROS Narrative System reviewed and no additional complaints, except as documented.
[2025-07-19] MEDS: Midazolam 2 MG/2 ML Syringe IV (11:45)
[2025-07-19] MEDS: Cefazolin 1 GM/5 ML Vial 2 GM IV (12:01)
[2025-07-19] MEDS: Lactated Ringers 1,000 ML 1000 ML IV (12:01)
[2025-07-19] MEDS: fentaNYL 100 MCG/2 ML Ampul IV (12:07)
[2025-07-19] MEDS: Lidocaine 1% (5 ml sdv) 5 ML Vial IV (12:07)
[2025-07-19] MEDS: Epinephrine (1 mg/ml) 1 MG/ML VIAL (13:01)
--- NOTE | 2025-07-19 13:18 | PCM.OPRPT ---
Operative Report (Standard) Operative Information Date of Procedure: 07/19/25 Pre-Operative Diagnosis: 1. Right shoulder rotator cuff tear 2. Right shoulder adhesive capsulitis 3. Right shoulder superior labral tear anterior posterior Post-Operative Diagnosis: 1. Right shoulder rotator cuff tear 2. Right shoulder adhesive capsulitis 3. Right shoulder superior labral tear anterior posterior 4. Right shoulder long head of biceps tendinopathy Surgery/Procedure Performed: 1. Right shoulder arthroscopic rotator cuff repair 2. Right shoulder arthroscopic capsular release with manipulation under anesthesia 3. 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: Yes Entertainer Or Variety Artist: Shefali Skinner Tasks completed by first aid trainer: Opening & closing, Implanting device and Retracting Type of Anesthesia: General/Regional RN Documented Start/Stop Times: Operation Date: 07/19/25 12:30 Case Time Into Pre-Op 07/19/25 10:08 Anesthesia Start 07/19/25 12:01 Into Room 07/19/25 12:01 Procedure Start 07/19/25 12:26 Procedure Start Time: 12:26 Procedure Stop Time: 13:27 Select all DRAINS/GRAFTS/IMPLANTS that apply: Implanted device Implanted device details: Arthrex metallic biceps button, Arthrex 4.75 mm self punching bio composite swivel lock anchor Estimated Blood Loss: 5 cc Specimen collected: No Description of surgery: Patient was identified in preoperative holding area by name, medical record number, and date of . The operative extremity was marked. All questions were answered to the patient's satisfaction. An interscalene block was administered by anesthesia prior to the procedure. Patient was then brought to the operative suite at time of his procedure. She was positioned supine a sterile operating table. General anesthesia was induced and LMA was placed. Patient was then placed in lateral decubitus position with the right side up. A beanbag was used to hold the patient in the lateral decubitus position. An axillary roll was placed. Pillows were placed beneath and between his legs to for any bony prominences. We prepped and draped the right upper extremity in normal, sterile orthopedic fashion. The operative extremity was placed in traction utilizing arthroscopic bedroom with 15 pounds of tension applied to the operative extremity throughout the arthroscopic portion of the case. We performed a timeout with all parties in attendance in agreement with the side, site, and operation be performed. No concerns were voiced and we elected to proceed with surgery. 2 g Ancef was administered IV prior to incision by anesthesia staff. I first established a standard posterior portal 2 fingerbreadths inferior medial to the posterior lateral border of the scapular spine. Blunt tipped trocar and arthroscopic cannula was introduced into the glenohumeral joint. Joint was inflated with normal saline with epinephrine. Arthroscope was then introduced. Diagnostic arthroscopy was commenced. Upon entering the joint, I was unable to distend the joint at all to safely visualize the glenohumeral joint and made decision to remove arthroscopic instruments and perform a manipulation under anesthesia. Free manipulation range of motion was flexion to 90 degrees, external rotation 0 degrees. Multiple adhesions were then released with gradual overhead forward flexion and external rotation. There was full flexion to 160 degrees and external rotation to 40 degrees after completion of manipulation under anesthesia. I then reentered the shoulder in the posterior portal with the arthroscope and was able to do much better visualize the joint and joint suction was appropriate at this time. There was diffuse synovitis noted and some bleeding from our manipulation. This was cauterized. Capsular release was then performed through an anterior interval portal in the rotator interval carefully dissecting the interval. I released the anterior labrum from the capsule with the cautery. I then placed the arthroscope in the anterior portal and released the posterior capsule from the labrum with the cautery in standard fashion. The inferior capsule was visualized and appeared to be released with the manipulation. Glenohumeral cartilage was pristine. Superior labral tearing was noted with unstable biceps anchor. Tenotomy was performed at the biceps labral junction and the biceps tendon was allowed to retract into its groove. 60% articular sided tearing of the supraspinatus was noted and articular side was debrided with the shaver. Subscapularis was pristine. No loose bodies were identified. I then turned my attention to the subacromial space. Arthroscopic instruments were removed. I reentered the shoulder in the subacromial space with blunt tipped trocar. Standard lateral portal was established with an 11 blade scalpel. Passport was placed for suture management during rotator cuff repair. I then skeletonized the undersurface of the acromion. Acromion was unremarkable. The subacromial bursa was limitedly debrided. Bursitis was encountered. Bursal side of the supraspinatus tendon was then evaluated. I gently probed with a tissue elevator and easily fell until full-thickness tear in the crescent portion of the tendon. Limited debridement of adjacent tissue was performed with a shaver. Tear measured less than 1 cm in width. Tissue quality appeared reasonable. There was no significant delamination noted. Given the small cuff tear, I proceeded with a single anchor repair with a ripstop type configuration with a inverted mattress suture tape and FiberLink suture in the central portion of tendon medial to the suture tape. The 3 suture tails were then passed through the eyelet of a swivel lock anchor which was placed at the lateral margin of the footprint with good cortical purchase. There is small dogear anteriorly which was reduced with the knotless mechanism. Sutures were cut flush with the anchor. Anatomic reduction was achieved. I then thoroughly lavaged the subacromial space. Arthroscopic instruments were removed. Portal sites were closed in standard fashion with a [id number] 3-0 nylon suture. The arm was then taken out of traction. I turned my attention to the tenodesis. 2 cm oblique incision was made along the inferior border of the pectoralis major. Blunt dissection was carried down to level of the fascia which was opened just inferior to the pectoralis major. Long the biceps tendon was then retrieved beneath the pectoralis major. Partial tearing and tenosynovitis was noted in the tendon. Whipstitch was performed with a #2 fiber loop at the musculotendinous junction. The intercalary segment of the tendon was amputated and discarded. I then passed the suture tails alternatingly through a biceps button. Periosteum was elevated in the subpectoral region of the humerus. Unicortical fighter pilot hole was established with a spade tip drill. Button was then placed in our fighter pilot hole and deployed. Sutures were tensioned and tied. Suture tail was passed back through the tendon with a scorpion suture passer and reinforced with another set of knots. Wound was irrigated. Tenodesis was stable. Field block was administered with 10 cc quarter percent bupivacaine with epinephrine. Dermis was reapproximated buried 3-0 Vicryl suture. Skin finally reapproximated subsequent 4-0 Monocryl and Dermabond. Bulky sterile compression dressing was applied. Patient was placed in UltraSling. She tolerated the procedure well without apparent complication. She was safely awoken the operative suite and extubated. She was transferred to his ana paula and subsequently to PACU in stable condition. Need for skilled human resources assistant: Shefali Skinner PA-C was critical to the outcome of the case. During the course of the procedure the physician human resources assistant played a vital role. Her intimate knowledge of my steps in the procedure aided in safe and expedient completion of the procedure. The PA played a vital role in positioning particularly in obtaining the appropriate positioning. The PA was also vital in the retraction of soft tissues during the exposure and protecting vital structures. The PA was also vital and obtaining tendon reduction and assisting with hardware placement. She also played a vital role in closure and sling application with my direct supervision. Post Operative Plan: Weightbearing: Nonweightbearing right upper extremity, okay for pendulums. Range of motion of wrist elbow and hand as tolerated. Physical therapy to start in 2 weeks. Antibiotics: 2 g Ancef IV prior to incision DVT Prophylaxis: Restart home aspirin and Plavix postoperative day #1, early mobilization Rcokwell: None Dressing: Maintain dressing x 2 days then ok to shower X-Rays: None Pain Medication: Oxycodone Rx upon discharge Follow-up: 2 weeks post-operatively with me in the office Surgical Findings: Severe adhesive capsulitis. Improved range of motion after capsular release and YOU. Small partial thickness supraspinatus tear, at least 60%. Complications Complications: No Admit VTE Documentation VTE Present on Admission: No VTE Mechan Device Prophylaxis: SCD's VTE Pharm Prophylaxis ordered?: Yes
[2025-07-19] MEDS: Bupiv/Epi 0.25% 30 ML Vial (13:20)
--- NOTE | 2025-07-19 13:34 | PCM.POST.ANE ---
Anesthesia: Postop Eval I Current Vital Signs Temperature: 97 F Pulse Rate: 78 Blood Pressure: 151/68 Respiratory Rate: 18 Pulse Ox: 95 Assessment Airway patent: Yes Spontaneous unlabored respirations: Yes nausea: No Vomiting: No Anesthesia Complication: No Fluid Hydration Crystalloid volume administer (ml): 1,000 Total IV fluid infused: 1,000 Progress Note Anesthesia document: Postop Eval 1 completed: Yes
--- NOTE | 2025-07-19 14:06 | POSTOPAN2_ITS ---
Anesthesia Postop Eval I Sum Postop Eval Completion status Anesthesia document: Postop Eval 1 completed: Yes Anesthesia Postop Eval I Summary Anesthesia Postop Eval I Summary: Anesthesia Postop Eval I: Assessment Summary Airway patent Yes 07/19/25 13:37 [email or web address] Spontaneous unlabored Yes 07/19/25 13:37 [email or web address] respirations Mental status nausea No 07/19/25 13:37 [email or web address] Vomiting No 07/19/25 13:37 [email or web address] Anesthesia Postop Eval I: Fluid Summary Crystalloid volume administer 1,000 07/19/25 13:37 [email or web address] (ml) Colloids volume administered ( ml) Blood Product volume administered (ml) Total IV fluid infused 1,000 07/19/25 13:37 [email or web address] Anesthesia Postop Eval I: Summary Notes Anesthesia Complication No 07/19/25 13:37 [email or web address] Anesthesia Complication Comment: Post-operative progress note Anesthesia: Postop Eval II Evaluation Mental status: Awake Pain Level: 1 nausea: No Vomiting: No
--- NOTE | 2025-07-19 14:06 | PCM.POSTANE2 ---
Anesthesia Postop Eval I Sum Postop Eval Completion status Anesthesia document: Postop Eval 1 completed: Yes Anesthesia Postop Eval I Summary Anesthesia Postop Eval I Summary: Anesthesia Postop Eval I: Assessment Summary Airway patent Yes 07/19/25 13:37 [email or web address] Spontaneous unlabored Yes 07/19/25 13:37 [email or web address] respirations Mental status nausea No 07/19/25 13:37 [email or web address] Vomiting No 07/19/25 13:37 [email or web address] Anesthesia Postop Eval I: Fluid Summary Crystalloid volume administer 1,000 07/19/25 13:37 [email or web address] (ml) Colloids volume administered ( ml) Blood Product volume administered (ml) Total IV fluid infused 1,000 07/19/25 13:37 [email or web address] Anesthesia Postop Eval I: Summary Notes Anesthesia Complication No 07/19/25 13:37 [email or web address] Anesthesia Complication Comment: Post-operative progress note Anesthesia: Postop Eval II Evaluation Mental status: Awake Pain Level: 1 nausea: No Vomiting: No
== END 2025-07-19 15:26 | disposition home or self-care (01) ==
LOC: SDC 10:02 → AC 10:03
PROVIDERS: PCP Registered Nurse; Referring Provider Student in an Organized Health Care Education/Training Program; Visit Provider Student in an Organized Health Care Education/Training Program
PROC: (CPT 29827; principal; 2025-07-19 12:10)
DX: M75.101 Unspecified rotator cuff tear or rupture of right shoulder, not specified as traumatic (principal); J44.9 Chronic obstructive pulmonary disease, unspecified; E11.9 Type 2 diabetes mellitus without complications; M75.01 Adhesive capsulitis of right shoulder; F32.A Depression, unspecified; I10 Essential (primary) hypertension; E78.00 Pure hypercholesterolemia, unspecified; K21.9 Gastro-esophageal reflux disease without esophagitis; F41.9 Anxiety disorder, unspecified; I25.10 Atherosclerotic heart disease of native coronary artery without angina pectoris; Z86.718 Personal history of other venous thrombosis and embolism; Z79.84 Long term (current) use of oral hypoglycemic drugs; Z79.02 Long term (current) use of antithrombotics/antiplatelets; Z79.82 Long term (current) use of aspirin; Z79.899 Other long term (current) drug therapy; Z79.51 Long term (current) use of inhaled steroids; Z95.1 Presence of aortocoronary bypass graft; Z87.891 Personal history of nicotine dependence
CPT/HCPCS: 29827; 23430; 23700; 64450; 01630; 82962; C1713; J2405

== ENCOUNTER → 2025-08-16 | Outpatient (CLI) | payer MEDICARE, MEDICAID, SELFPAY ==
--- OUTSIDE RECORDS SUMMARY | 2025-08-16 19:39 | XMS RPT_ITS | CCD ---
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 Name Role Phone ALEJANDRO DAMON MD Admitting Unavailable ALEJANDRO DAMON MD Attending Unavailable ALEJANDRO DAMON MD Primary Care Unavailable ALEJANDRO DAMON MD Consulting Unavailable PROVIDER, UNKNOWN Consulting Unavailable PROVIDER, UNKNOWN Consulting Unavailable PROVIDER, UNKNOWN Consulting Unavailable DANAY WOODARD Admitting Unavailable DANAY WOODARD Attending Unavailable ALEJANDRO DAMON MD Referring Unavailable DANAY WOODARD Primary Care Unavailable ALEJANDRO DAMON MD Consulting Unavailable PROVIDER, UNKNOWN Consulting Unavailable PROVIDER, UNKNOWN Consulting Unavailable PROVIDER, UNKNOWN Consulting Unavailable No Family, Physician Primary Care Unavailable Lazara DAMON MD Unavailable JEYSON BLACK MD Unavailable [phone] Cale CARRILLO MD Unavailable [phone] Licha Merrill Unavailable Unavailable Kirit MCCLURE, Allison Unavailable Unavaila JSOE LUIS Jean Unavailable Unavailable DUGLAS MCCLURE, GERRI Unavailable Unavailable Aniya Holcomb Unavailable Unavailable Andera Damon Unavailable Unavailable CARLA DAMON Unavailable Unavailable DEMETRA CLARK Unavailable Unavailable JAYESH WALTER Unavailable Unavailable Unavailable Unavailable JOSE ANGEL ARCINIEGA-JOSEPHINE TRAORE Primary Care Physi kianna Josephine Walter CNP Primary Care Provider JOSEPHINE WALTER Attending Unavailable JOSEPHINE WALTER Primary Care Unavailable VARSHA MALONE MD Attending Unavailable JOSEPHINE WALTER Primary Care Unavailable VARSHA MALONE MD Attending Unavailable JOSEPHINE WALTER Primary Care Unavailable JOSEPHINE WALTER Primary Care Unavailable JOSEPHINE WALTER Attending Unavailable MICHELLE WHITTEN Attending Unavailable Alejandro Quintana MD Unavailable Andrew Maldnoado MD Unavailable SeaySharron Unavailable JOSEPHINE WALTER Primary Care Unavailable QIANA, MAYANK T Referring Unavailable MARLEE OVERTON Attending Unavailable JOSEPHINE WALTER Primary Care Unavailable MARLEE OVERTON Attending Unavailable Jose Angel PATHOLOGY TECHNOLOGIST-C, Josephine Referring Provider [phone] Marlee Del Rio Attending Provider [phone] Andrew Maldonado MD Attending Provider Jose Angel PATHOLOGY TECHNOLOGIST-C, Josephine Primary Care Provider [phone] Marlee Del Rio Referring Provider [phone] Alejandro Quintana MD Attending Provider [phone] Jose Angel PATHOLOGY TECHNOLOGIST-C, Josephine Referring Provider [phone] Marlee Del Rio Attending Provider [phone] [facility] PATHOLOGY TECHNOLOGIST-C, Susanne Attending Provider [phone] Jose Angel [facility] Primary Care Prov ider CONRY, MAYANK Referring Unavailable [facility], JOSEPHINE AMBERLE Primary Care Unava ilable CONRY, MAYANK Referring Unavailable JOSE ANGEL, JOSEPHINE AMBERLE Primary Care Unava ilable CONRY, MAYANK Referring Unavailable GOLIAS, SARA Attending Unavailable JOSE ANGEL, JOSEPHINE AMBERLE Primary Care Unava ilable CONRY, MAYANK Referring Unavailable JOSE ANGEL, JOSEPHINE AMBERLE Primary Care Unava ilable CONRY, MYAANK Referring Unavailable VALENTE HERNANDEZ Attending Unavailable JOSE ANGEL, JOSEPHINE AMBERLE Primary Care Unava ilable CONRY, MAYANK Referring Unavailable GOLIAS, SARA Attending Unavailable [facility], JOSEPHINE AMBERLE Primary Care Unava ilable CONRY, MAYANK Referring Unavailable GOLIAS, SARA Attending Unavailable JOSE ANGEL, JOSEPHINE AMBERLE Primary Care Unava ilable CONRY, MAYANK Referring Unavailable JOSE ANGEL, JOSEPHINE AMBERLE Primary Care Unava ilable CONRY, MAYANK Referring Unavailable GOLIAS, SARA Attending Unavailable JOSE ANGEL, JOSEPHINE AMBERLE Primary Care Unava ilable CONRY, MAYANK Referring Unavailable JOSE ANGEL, JOSEPHINE AMBERLE Primary Care Unava ilable CONRY, MAYANK Referring Unavailable JOSE ANGEL, JOSEPHINE AMBERLE Primary Care Unava ilable CONRY, MAYANK Referring Unavailable JOSE ANGEL, JOSEPHINE AMBERLE Primary Care Unava ilable KOBI GARSIA Referring Unavailable JOSE ANGEL, JOSEPHINE AMBERLE Primary Care Unava ilable JOSE ANGEL, JOSEPHINE AMBERLE Primary Care Unava ilable JOSE ANGEL, JOSEPHINE AMBERLE Referring Unava ilable JOSE ANGEL, JOSEPHINE AMBERLE Primary Care Unava ilable CONRY, MAYANK Referring Unavailable CONRY, MAYANK Referring Unavailable JOSE ANGEL, JOSEPHINE AMBERZULMA Primary Care Unava ilable CONRY, MAYANK Referring Unavailable JOSE ANGEL, JOSEPHINE AMBERLE Primary Care Unava ilable MARLEE OVERTON Referring Unavailable JOSE ANGEL, JOSEPHINE AMBERZULMA Primary Care Unava ilable JOSE ANGEL, JOSEPHINE AMBERLE Primary Care Unava ilable CONRY, MAYANK Referring Unavailable CONRY, MAYANK Referring Unavailable SARA WISEMAN Attending Unavailable JOSE ANGEL, JOSEPHINE AMBERLE Primary Care Unava ilable JOSE ANGEL BAR FINISH OPERATOR-SINK MAKER, JOSEPHINE A Attending Un available JOSE ANGEL BAR FINISH OPERATOR-SINK MAKER, JOSEPHINE A Primary Care Un available JOSE ANGEL BAR FINISH OPERATOR-SINK MAKER, JOSEPHINE A Attending Un available JOSE ANGEL BAR FINISH OPERATOR-SINK MAKER, JOSEPHINE A Primary Care Un available JOSE ANGEL BAR FINISH OPERATOR-SINK MAKER, JOSEPHINE A Attending Un available JOSE ANGEL BAR FINISH OPERATOR-SINK MAKER, JOSEPHINE A Primary Care Un available JOSE ANGEL BAR FINISH OPERATOR-SINK MAKER, JOSEPHINE A Attending Un available JOSE ANGEL BAR FINISH OPERATOR-SINK MAKER, JOSEPHINE A Primary Care Un available JOSE ANGEL BAR FINISH OPERATOR-SINK MAKER, JOSEPHINE A Attending Un available JOSE ANGEL BAR FINISH OPERATOR-SINK MAKER, JOSEPHINE A Primary Care Un available JOSE ANGEL, JOSEPHINE AMBERLE Primary Care Unava ilable ROMEO STAFFORD Attending Unavailable CONRY, MAYANK T Attending Unavailable ROMEO STAFFORD Referring Unavailable JOSE ANGEL, JOSEPHINE AMBERLE Primary Care Unava ilable CONRY, MAYANK T Referring Unavailable JOSE ANGEL, JOSEPHINE AMBER Primary Care Unava ilable NEWTON SHINE Attending Unavailable [facility], JOSEPHINE AMBER Primary Care Unava ilable CONRY, MAYANK T Referring Unavailable CONRY, MAYANK T Attending Unavailable [facility], JOSEPHINE AMBER Primary Care Unava ilable CONRY, MAYANK T Attending Unavailable [facility], JOSEPHINE AMBER Primary Care Unava ilable JOSE ANGEL, JOSEPHINE AMBER Primary Care Unava ilable CONRY, MAYANK T Referring Unavailable [facility], JOSEPHINE AMBER Primary Care Unava ilable CONRY, MAYANK T Attending Unavailable [facility], JOSEPHINE AMBER Primary Care Unava ilable CONRY, MAYANK T Referring Unavailable [facility], JOSEPHINE AMBER Primary Care Unava ilable CONRY, MYAANK T Attending Unavailable [facility], [facility] Primary Care Unava ilable CONRY, MAYANK T Referring Unavailable [facility], JOSEPHINE AMBER Primary Care Unava ilable KOBI GARSIA Attending Unavailable SELF Referring Unavailable [facility], [facility] Primary Care Unava ilable CONRY, MAYANK T Attending Unavailable [facility], [facility] Primary Care Unava ilable CONRY, MAYANK T Attending Unavailable [facility], [facility] Primary Care Unava ilable KOBI GARSIA Attending Unavailable [facility], [facility] Primary Care Unava ilable NEWTON SHINE Admitting Unavailable NEWTON SHINE Attending Unavailable [facility], [facility] Primary Care Unava ilable MISRY, MAYANK T Attending Unavailable [facility] Primary Care Unava ilable Jose Angel PATHOLOGY TECHNOLOGIST-C, Josephine Primary Care Physician Dr. Moiz Rodriguez DO Attending Physician Dr. Moiz Rodriguez DO Referring Provider Jose Angel PATHOLOGY TECHNOLOGIST-Josephine Lopez Referring Provider Sharron Moore Attending Physician Andrew Maldonado Referring Unavailable Andrew Maldonado Attending Unavailable Jose Angel PATHOLOGY TECHNOLOGIST, [facility] Unavailabl e Varinder Rendon Attending Unavailable Joel, Andrew Referring Unavailable Jose Angel PATHOLOGY TECHNOLOGIST, [facility] Unavailabl e Jose Angel PATHOLOGY TECHNOLOGIST, [facility] Unavailabl e Araujo, Marlee Referring Unavailable Araujo, Marlee Attending Unavailable Mariano, Alejandro Attending Unavailable Jose Angel PATHOLOGY TECHNOLOGIST, [facility] Unavailabl e Araujo, Marlee Referring Unavailable Jose Angel PATHOLOGY TECHNOLOGIST, [facility] Unavailabl e Jose Angel PATHOLOGY TECHNOLOGIST, [place] Referring Unavailabl e Sharron Seay Attending Unavailable Moiz Rodriguez Referring Unavailable Moiz Rodriguez Attending Unavailable Jose Angel PATHOLOGY TECHNOLOGIST, [facility] Unavailabl e Jose Angel PATHOLOGY TECHNOLOGIST, [facility] Unavailabl e Sharron Seay Referring Unavailable Sharron Seay Attending Unavailable Jose Angel PATHOLOGY TECHNOLOGIST, [facility] Unavailabl e Araujo, Marlee Referring Unavailable Araujo, Marlee Attending Unavailable Brown, Varinder Referring Unavailable BrownVarinder Attending Unavailable Jose Angel PATHOLOGY TECHNOLOGIST, [facility] Unavailabl e Brown, Varinder Referring Unavailable Jose Angel PATHOLOGY TECHNOLOGIST, [facility] Unavailabl e BrownVarinder Attending Unavailable Brown, Varinder Referring Unavailable Jose Angel PATHOLOGY TECHNOLOGIST, [facility] Unavailabl e Varinder Rendon Attending Unavailable Modesto, Alejandro Referring Unavailable Mariano, Alejandro Attending Unavailable Jose Angel PATHOLOGY TECHNOLOGIST, [facility] Unavailabl e Araujo, Marlee Consulting Unavailable Jose Angel PATHOLOGY TECHNOLOGIST, [place] Referring Unavailabl e Araujo, Marlee Attending Unavailable Andrew Maldonado Attending Unavailable Jose Angel PATHOLOGY TECHNOLOGIST, [place] Referring Unavailabl e Jose Angel PATHOLOGY TECHNOLOGIST, [facility] Unavailabl e Varinder Rendon Attending Unavailable Jose Angel PATHOLOGY TECHNOLOGIST, [facility] Unavailabl e Fernando Cooper Referring Unavailable Jose Angel PATHOLOGY TECHNOLOGIST, [facility] Unavailabl e Jose Angel PATHOLOGY TECHNOLOGIST, [place] Referring Unavailabl e Araujo, Marlee Attending Unavailable Eric Casey Attending Unavailable Jose Angel PATHOLOGY TECHNOLOGIST, [facility] Unavailabl e Jose Angel PATHOLOGY TECHNOLOGIST, [place] Referring Unavailabl e Modesto, Alejandro Attending Unavailable Jose Angel PATHOLOGY TECHNOLOGIST, [facility] Unavailabl e Araujo, Marlee Referring Unavailable Modesto, Alejandro Referring Unavailable Mariano, Alejandro Attending Unavailable Jose Angel [facility]Y TECHNOLOGIST, [facility] Ara[facility]jo, Marlee Consulting Unavailable Alejandro Quintana Consulting Unavailable Jose Angel HAUSER, [facility] Walter PATHOLOGY TECHNOLOGIST, [place] Referring UnavailSusanne Pro Attending Unavailable Varinder Rendon Consulting Unavailable Varinder Rendon Referring Unavailable Jose Angel PATHOLOGY TECHNOLOGIST, [facility] UnavailVarinder Turner Attending Unavailable Jose Angel HAUSER, [facility] UnavailDahiana Enrique Referring Unavail able Dahiana Escamilla Attending Unavail able Jose Angel PATHOLOGY TECHNOLOGIST, [facility] Araujo, Marlee Referring Unavailable Marlee Araujo Attending Unavailable Medications Current Medications Medication Drug Class(es) Dates Sig (Normalized) Sig (Original) 0.5 ML tirzepatide 10 MG/ML Auto-Injector [Mounjaro] (3 sources) Start: 05-24-2025 End: 08-22-2025 inject 1 dose by subcutaneous injection every week Mounjaro 5 mg/0.5 mL subcutaneous solution Dose : 5 mg =, Subcutaneous, qWeek, rotate injection sites, # 4 EA, 2 Refill(s), Pharmacy: [facility], 160, cm, 05/24/25 9:47:00 EDT, Height, kg, 05/24/25 9:47:00 EDT, Dosing Weight Start Date: 05/24/25 Stop Date: 08/22/25 Status: Ordered Medication Dispense Status: Completed Quantity: 4.0 Unit: EA Total Allowed Fills: 3 Fills Dispensed: 0 acetaminophen 500 mg oral tablet (20 sources) Start: 12-02-2024 End: 03-02-2025 take 2 tablets by mouth every six hours in the evening acetaminophen (TYLENOL) 500 mg tablet Take 2 tablets by mouth every 6 hours. 720 tablet 12/02/2024 1:26 PM EST 12/02/2024 03/02/2025 Active [id number] 200 actuat albuterol 0.09 mg/actuat metered dose inhaler (20 sources) beta2-Adrenergic Agonist Start: 09-07-2024 take 2 puff(s) by inhalation every six hours as needed for wheezing ProAir HFA MDI (90 mcg/inh) inhalation aerosol 2 puff(s), Inhalation, q6hr, PRN as needed for wheezing, # 3 EA, 3 Refill(s), Pharmacy: [facility], 158, cm, 07/22/24 8:29:00 EDT, Height, kg, 07/22/24 8:29:00 EDT, Dosing Weight Start Date: 09/07/24 Status: Ordered Medication Dispense Status: Completed Quantity: 3.0 Unit: EA Total Allowed Fills: 4 Fills Dispensed: 0 Start: 07-10-2024 take 2 puff(s) by in halation every six hours as needed for wheezing ProAir HFA MDI (90 mcg/inh) inhalation aerosol 2 puff(s), Inhalation, q6hr, PRN as needed for wheezing, # 3 EA, 0 Refill(s), Pharmacy: [facility], 158, loren, 06/03/24 7:47:00 EDT, Height, kg, 06/03/24 7:47:00 EDT, Dosing Weight Start Date: 07/10/24 Status: Ordered Start: 05-20-2024 Albuterol Sulf ate 90 mcg/actuation HFA aerosol inhaler Active 1 NMA INHALATION Q4H as needed for shortness of breath or wheezing May 19, 2024 11:00pm Complies with drug therapy Start: 05-20-2024 Albuterol Sulf ate 90 mcg/actuation HFA aerosol inhaler Active 1 NMA INHALATION ONCE May 20, 2024 12:00am Start: 04-27-2020 take 2 puff(s) by in halation every six hours as needed for wheezing ProAir HFA MDI (90 mcg/inh) inhalation aerosol 2 puff(s), Inhalation, q6hr, PRN as needed for wheezing Start Date: 04/27/20 Status: Ordered Start: 02-15-2020 take 1-2 puff(s) by inhalation every six hours as needed for wheezing albuterol HFA (PROVENTIL HFA, VENTOLIN HFA) 90 mcg/actuation inhaler Inhale 1-2 Puffs as instructed every 6 hours as needed for wheezing/shortness of breath. 02/15/2020 Active Start: 06-17-2019 ProAir HFA 108 (90 Base) MCG/ACT Inhalation Aerosol Solution ; 2 puffs Puff every four hours, as needed for 90 days Quantity: 3 {Inhaler} Refills: 1 Ordered: 17-Jun-2019 MD Lazara DAMON Start: 17-Jun-2019 Comments: Medication taken as needed. Comment on above: Medication taken as needed. amLODIPine 5 mg oral tablet (20 sources) Dihydropyridine Calcium Channel Dakotah Start: 01-28-20 End: 04-01-20 take 1 tablet by mouth once daily Amlodipine 5 mg tablet Active 5 mg PO daily April 01, 2025 10:17am Complies with drug therapy ARIPiprazole 5 mg oral tablet (20 sources) Atypical Antipsychotic Start: 08-11-20 take 1 tablet by mouth once daily Aripiprazole 5 mg tablet Active 5 mg PO daily August 11, 2024 12:00am Complies with drug therapy aspirin 81 mg delayed release oral tablet (20 sources) Platelet Aggregation Inhibitor, Nonsteroidal Anti-inflammatory Drug Start: 09-16-20 take 1 tablet by mouth once daily Aspirin 81 mg tablet,delayed release (DR/EC) Active 81 mg PO daily September 16, 2024 12:00am Complies with drug therapy take 1 capsule by mouth once abdelrahman ly aspirin 81 mg cap Take 81 mg by mouth once daily. Dr. Quintana manages. No instructions given Active take 1 tablet by mouth once cecelia y Aspirin Adult Low Strength 81 MG Oral Tablet Delayed Release ; 1 (one) daily (81 MG) atorvastatin 40 mg oral tablet (20 sources) HMG-CoA Reductase Inhibitor Start: 07-27-2020 End: 04-16-2026 take 1 tablet by mouth once daily Atorvastatin 40 mg tablet Active 40 mg PO DAILY May 11, 2024 11:00pm Complies with drug therapy 120 actuat budesonide 0.16 mg/actuat / formoterol fumarate 0.0045 mg/actuat metered dose inhaler (1 source) Corticosteroid, beta2-Adrenergic Agonist Start: 06-17-2019 take 2 puff(s) by inhalation twice daily Symbicort 160-4.5 MCG/ACT Inhalation Aerosol ; 2 (two) Puff two times daily for 60 days Quantity: 2 {Inhalation} Refills: 5 Ordered: 17-Jun-2019 MD Lazara DAMON Start: 17-Jun-2019 Comments: Mail order. Fax to ID #: [id number] Comment on above: Mail order. Fax to [phone] #: [id number] cariprazine 1.5 mg oral capsule (20 sources) Atypical Antipsychotic Start: 08-04-2025 take 1 capsule by mouth once daily Start: 07-22-2024 End: 11-20-2025 take 1 capsule by mouth once daily cariprazine (VRAYLAR) 1.5 mg capsule Take 1.5 mg by mouth once daily. 07/22/2024 Active cinnamon bark 500 mg oral capsule (1 source) Start: 07-15-2025 End: 08-04-2025 take 1 capsule by mouth twice daily Cinnamon Bark (Cinnamon) 500 mg capsule Discontinued 2000 mg PO TWICE A DAY July 14, 2025 11:00pm August 04, 2025 11:24am clopidogrel 75 mg oral tablet (20 sources) [id number] Platelet Inhibitor Start: 03-13-2024 End: 05-19-2026 take 1 tablet by mouth once daily Clopidogrel 75 mg tablet Active 75 mg PO daily May 19, 2024 11:00pm Complies with drug therapy diclofenac sodium 0.01 mg/mg topical gel (6 sources) Nonsteroidal Anti-inflammatory Drug Start: 05-27-2025 End: 08-25-2025 apply 2 g topically four times daily diclofenac (VOLTAREN) 1 % topical gel Apply 2 g to affected area four times daily. 240 g 2 05/27/2025 08/25/2025 Active docusate sodium 100 mg oral capsule (5 sources) Start: 12-02-2024 End: 12-16-2024 take 1 capsule by mouth twice daily in the evening docusate sodium (COLACE) 100 mg capsule Take 1 capsule by mouth two times a day for 14 days. 28 capsule 12/02/2024 1:26 PM EST 12/02/2024 12/16/2024 Active empagliflozin 10 mg oral tablet (20 sources) Sodium-Glucose Cotransporter 2 Inhibitor Start: 03-13-2024 End: 05-19-2026 take 1 tablet by mouth once daily Empagliflozin (Jardiance) 10 mg tablet Active 10 mg PO DAILY May 19, 2024 11:00pm Complies with drug therapy Start: 07-27-2020 take 1 tablet by coco once daily Jardiance 10 MG Oral Tablet ; 1 (one) Tablet daily for 30 days Quantity: 30 {Tablet} Refills: 2 Ordered: 27-Jul-2020 MD Lazara DAMON Start: 27-Jul-2020 ergocalciferol 0.05 mg oral capsule (19 sources) Provitamin D2 Compound Start: 08-04-2025 Start: 01-19-2025 take 1 capsule by mo ut every week ergocalciferol 50,000 unit capsule (VITAMIN D2, DRISDOL) Take 1 capsule by mouth one time a week. 01/19/2025 Active fluconazole 100 mg oral tablet (20 sources) Azole Antifungal Start: 08-14-2024 fluconazole ( DIFLUCAN) 100 mg tablet Take 100 mg by mouth as needed (yeast infections). 08/14/2024 Active Start: 11-03-2018 End: 11-17-2018 Diflucan 100 MG Oral Tablet ; 1 (one) Tablet 2 with initial dose, then 1 daily for 14 days Quantity: 15 {Tablet} Refills: 0 Ordered: 21-Nov-2018 MD Cale CARRILLO Start: 03-Nov-2018 End: 17-Nov-2018 Status: Inactive fluticasone propionate 0.05 mg/actuat metered dose nasal spray (20 sources) Corticosteroid Start: 10-01-2024 take 50 ug nasal route once daily Fluticasone Propionate (Allergy Relief (Fluticasone)) 50 mcg/actuation spray,suspension Active 2 NMA INTRANASAL daily October 01, 2024 12:00am administer into each nostril Complies with drug therapy Start: 08-19-2024 End: 08-14-2025 take 1 spray(s) nasal route once daily fluticasone proprionate NASAL 50 mcg/ spray 50 mcg Dose = 1 spray(s), Intranasal, qDay, USE 1 SPRAY(S) IN EACH NOSTRIL ONCE DAILY, # 3 EA, 3 Refill(s), Pharmacy: [facility], 158, cm, 07/22/24 8:29:00 EDT, Height, kg, 07/22/24 8:29:00 EDT, Dosing Weight Start Date: 08/19/24 Stop Date: 08/14/25 Status: Ordered Medication Dispense Status: Completed Quantity: 3.0 Unit: EA Total Allowed Fills: 4 Fills Dispensed: 0 Start: 03-13-2024 take 2 spray(s) nasa l route once daily fluticasone (FLONASE) 50 mcg/actuation nasal spray Use 2 Sprays in each nostril once daily. 03/13/2024 Active Start: 03-13-2024 take 1 spray(s) nasa l route once daily fluticasone (FLONASE) 50 mcg/actuation nasal spray USE 1 SPRAY(S) IN EACH NOSTRIL ONCE DAILY 03/13/2024 Active Start: 03-13-2024 take 1 spray(s) nasa l route once daily fluticasone proprionate NASAL 50 mcg/ spray USE 1 SPRAY(S) IN EACH NOSTRIL ONCE DAILY Start Date: 03/13/24 Status: Ordered Start: 07-15-2018 End: 05-20-2020 Fluticasone Propionate 50 MC G/ACT Nasal Suspension ; 2 (two) spray(s) spray(s) at bedtime for 90 days Quantity: 2 {Bottle} Refills: 3 Ordered: 20-May-2020 REN Beth Start: 15-Jul-2018 End: 20-May-2020 Status: Inactive fluticasone / salmeterol (20 sources) Corticosteroid, beta2-Adrenergic Agonist Start: 11-05-2024 take 1 dose by inhalation twice daily Advair Diskus 250 mcg-50 mcg inhalation powder Dose = 1 puff(s), Inhalation, BID, # 3 EA, 0 Refill(s), Pharmacy: [facility], 158, cm, 10/12/24 11:24:00 EST, Height, kg, 10/12/24 11:24:00 EST, Dosing Weight Start Date: 11/05/24 Status: Ordered Medication Dispense Status: Completed Quantity: 3.0 Unit: EA Total Allowed Fills: 1 Fills Dispensed: 0 Start: 11-05-2024 take 1 dose by inhal ation twice daily Advair Diskus 250 mcg-50 mcg inhalation powder Dose = 1 puff(s), Inhalation, BID, # 3 EA, 0 Refill(s), Pharmacy: [facility], 158, cm, 10/12/24 11:24:00 EST, Height, kg, 10/12/24 11:24:00 EST, Dosing Weight Start Date: 11/05/24 Status: Ordered Quantity: 3.0 Unit: EA Repeat number: 1 Start: 10-01-2024 Fluticasone Pr opion-Salmeterol (Advair Diskus) 250-50 mcg/dose blister with device Active 1 NMA INHALATION TWICE A DAY October 01, 2024 12:00am Complies with drug therapy Start: 10-01-2024 Fluticasone Pr opion-Salmeterol (Advair Diskus) 250-50 mcg/dose blister with device Active 1 NMA INHALATION TWICE A DAY October 01, 2024 1:00am Start: 07-10-2024 take 1 dose by inhal ation twice daily Advair Diskus 250 mcg-50 mcg inhalation powder Dose = 1 puff(s), Inhalation, BID, # 3 EA, 0 Refill(s), Pharmacy: [facility], 158, cm, 06/03/24 7:47:00 EDT, Height, kg, 06/03/24 7:47:00 EDT, Dosing Weight Start Date: 07/10/24 Status: Ordered Start: 04-27-2020 take 1 dose by inhal ation twice daily Advair Diskus 250 mcg-50 mcg inhalation powder Dose = 1 puff(s), Inhalation, BID Start Date: 04/27/20 Status: Ordered Start: 02-15-2020 fluticasone-sa lmeterol (ADVAIR, WIXELA) 250-50 mcg/dose inhaler Inhale 1 Inhalation as instructed two times a day. 02/15/2020 Active Start: 02-15-2020 fluticasone-sa lmeterol (ADVAIR, WIXELA) 250-50 mcg/dose inhaler Inhale 1 Inhalation as instructed two times a day. 0 02/15/2020 Active Start: 06-17-2019 Advair Diskus 250-50 MCG/DOSE Inhalation Aerosol Powder Breath Activated ; 1 inhalation Aero Pow Br Act Aero Pow Br Act two times daily for 60 days Quantity: 2 {Inhalation} Refills: 5 Ordered: 17-Jun-2019 REN Beth Start: 17-Jun-2019 Comments: Mail order. Fax: Customer ID: [id number] Start: 07-15-2018 End: 09-03-2018 Advair Diskus 250-50 MCG/DOS E Inhalation Aerosol Powder Breath Activated ; 1 inhalation Aero Pow Br Act two times daily for 0 days Quantity: 1 {Disk} Refills: 3 Ordered: 03-Sep-2018 REN ARDON Start: 15-Jul-2018 End: 03-Sep-2018 Status: Inactive Comment on above: Mail order. Fax: 10-07 [phone] ID: [id number] hydrOXYzine hydrochloride 25 mg oral tablet (20 sources) Antihistamine Start: 024 take 1 tablet by mouth once daily hydrOXYzine HCl (ATARAX) 25 mg tablet Take 25 mg by mouth once daily. 09/21/2024 Active Start: 08-11-2024 take 1 tablet by coco th three times daily as needed for anxiety Hydroxyzine Hcl 25 mg tablet Active 25 mg PO THREE TIMES A DAY as needed for anxiety August 11, 2024 12:00am Complies with drug therapy Start: 07-22-2024 End: 09-20-2024 hydrOXYzine hydrochloride 25 mg oral tablet Dose : 25 mg = 1 tab(s), Oral, q8h, PRN as needed for anxiety, X 30 day(s), # 45 tab(s), 1 Refill(s), 09/20/24 9:27:00 AM EST, Pharmacy: [facility], Generalized anxiety disorder Major depression, chronic, 158, cm, 07/22/24 8:29:00 EDT, Height, kg, 07/22/24 8:29:00 EDT, Dosing Weight Start Date: 07/22/24 Stop Date: 09/20/24 Status: Ordered lidocaine 0.05 mg/mg medicated patch (20 sources) Antiarrhythmic, Amide Local Anesthetic Start: 02-04-2025 End: 11-01-2025 lidocaine 5% topical patch Apply 1 patch(es), Topical, qDay, remove patches after 12 hours, X 90 day(s), # 90 patch(es), 2 Refill(s), Pharmacy: [facility], 158, cm, 01/18/25 10:31:00 EDT, Height, 75.4, kg, 01/18/25 10:31:00 EDT, Dosing Weight Start Date: 02/04/25 Stop Date: 11/01/25 Status: Ordered Medication Dispense Status: Completed Quantity: 90.0 Unit: patch(es) Total Allowed Fills: 3 Fills Dispensed: 0 Start: 01-26-2025 End: 01-26-2025 lidocaine (PF) 10 mg/mL (1 % ) 4 mL injection (XYLOCAINE) Start: 01-26-2025 End: 01-26-2025 4 mL, Injection - FOR ORTHO USE ONLY, ONCE, 1 dose, Starting on Sat01/26/25 at 1241, Until Sat01/26/25 at 1241 Start: 09-15-2024 apply 1 dose transde rmal route every twelve hours lidocaine (LIDODERM) 5 % Apply 1 Patch as directed every 12 hours. ARMS 09/15/2024 Active Start: 06-03-2024 End: 09-01-2024 lidocaine 5% topical patch A pply 1 patch(es), Topical, qDay, remove patches after 12 hours, X 30 day(s), # 30 patch(es), 2 Refill(s), Pharmacy: [facility], 158, cm, 06/03/24 7:47:00 EDT, Height, 69.4, kg, 06/03/24 7:47:00 EDT, Dosing Weight Start Date: 06/03/24 Stop Date: 09/01/24 Status: Ordered Start: 05-20-2024 Lidocaine 5 % adhesive patch,medicated Active 1 NMA TOPICAL AT BEDTIME May 19, 2024 11:00pm leave on most painful area for up to 12 hrs Complies with drug therapy Start: 03-13-2024 lidocaine 5% t opical patch Apply 1 patch(es), Topical, qDay, remove patches after 12 hours, # 30 patch(es), 0 Refill(s), 72.7 Start Date: 03/13/24 Status: Ordered losartan potassium 25 mg oral tablet (20 sources) Angiotensin 2 Receptor Dakotah Start: 02-15-2020 End: 11-09-2024 take 1 tablet by mouth once daily losartan (COZAAR) 25 mg tablet Take 25 mg by mouth once daily. 02/15/2020 Active metFORMIN hydrochloride 1000 mg / SITagliptin 50 mg oral tablet (20 sources) Biguanide, Dipeptidyl Peptidase 4 Inhibitor Start: 10-12-2024 take 1 tablet by mouth twice daily at mealtime JANUMET 50-1,000 mg per tablet Take 1 tablet by mouth two times a day with meals. 10/12/2024 Active Start: 10-12-2024 JANUMET 50-1,0 00 mg per tablet 10/12/2024 Active Start: 03-13-2024 End: 05-29-2025 take 1 tablet by mouth twice daily Janumet XR 50 / 1000 mg extended release oral tablet Dose = 1 tab(s), Oral, BID, # 180 tab(s), 3 Refill(s), Pharmacy: [facility], 158, cm, 06/03/24 7:47:00 EDT, Height, kg, 06/03/24 7:47:00 EDT, Dosing Weight Start Date: 06/03/24 Stop Date: 05/29/25 Status: Ordered Start: 02-15-2020 End: 11-09-2024 take 2 tablets by mouth once daily SITagliptin-metFORMIN (JANUMET XR) 50-1,000 mg TM24 Take 2 tablets by mouth once daily. [facility] 11/04/24 duplicate entry d/t insurance [facility] 02/15/2020 11/09/2024 Discontinued (Duplicate Entry) Start: 08-03-2019 End: 09-02-2019 take 1 tablet by mouth once daily Janumet XR 50-1000 MG Oral Tablet Extended Release 24 Hour ; 1 (one) Tablet daily for 30 days Quantity: 30 {Tablet} Refills: 0 Ordered: 03-Aug-2019 MD Lazara DAMON Start: 03-Aug-2019 End: 02-Sep-2019 Status: Inactive Start: 07-03-2014 End: 07-15-2025 Sitagliptin Phos-Metformin ( Janumet 50-500 Mg Tablet) 1 EACH tablet Discontinued 1 NMA PO TWICE A DAY July 02, 2014 11:00pm July 15, 2025 8:19am take 1 tablet by coco th once daily Janumet 50-500 MG Oral Tablet ; 1 tab daily (50-500 MG) Status: Inactive take 1 tablet by coco th every twenty-four hours Janumet XR 50-1000 MG Oral Tablet Extended Release 24 Hour ; 1 bid (50-1000 MG) Status: Inactive methocarbamol 500 mg oral tablet (20 sources) Muscle Relaxant Start: 05-12-2024 take 1 tablet by mouth at bedtime Methocarbamol 500 mg tablet Active 500 mg PO AT BEDTIME May 12, 2024 12:00am Start: 03-13-2024 End: 02-16-2025 take 2 tablets by mouth four times daily as needed methocarbamol 500 mg oral tablet TAKE TWO Tablets BY MOUTH FOUR TIMES DAILY NEEDED Start Date: 05/24/25 Status: Ordered Medication Dispense Status: Completed Total Allowed Fills: 1 Fills Dispensed: 0 methylPREDNISolone (18 sources) Corticosteroid Start: 02-04-2025 methylPREDNISolone (MEDROL DOSE-PACK) 4 mg Dose-Pack A directed 02/04/2025 Active 24 hr metoprolol succinate 50 mg extended release oral tablet (20 sources) beta-Adrenergic Dakotah Start: 01-27-2025 End: 04-01-2025 take 1 tablet by mouth once daily Metoprolol Succinate 50 mg tablet extended release 24 hr Active 50 mg PO daily 90 April 01, 2025 10:17am Complies with drug therapy Start: 05-12-2024 End: 01-27-2025 take 1 capsule by mouth once daily Metoprolol Succinate 25 mg capsule,sprinkle,ER 24hr Discontinued 25 mg PO DAILY May 11, 2024 11:00pm January 27, 2025 2:41pm Start: 03-13-2024 End: 05-30-2025 take 2 tablets by mouth once daily metoprolol succinate ER (TOPROL XL) 25 mg 24 hr tablet Take 2 tablets by mouth once daily. 180 tablet 05/20/2025 Active Start: 07-27-2020 take 0.5 tablet by m outh twice daily Metoprolol Tartrate 25 MG Oral Tablet ; 1/2 Tablet two times daily for 90 days Quantity: 90 {Tablet} Refills: 1 Ordered: 27-Jul-2020 MD Lazara DAMON Start: 27-Jul-2020 Start: 02-15-2020 End: 11-09-2024 metoprolol tartrate, short a cting, (LOPRESSOR) 50 mg tablet Take 50 mg by mouth. PACC 11/04/24 not taking [facility] 02/15/2020 11/09/2024 Discontinued (Changing Therapy/Dosage Form) MiscMED Miscellaneous Medica tion (4 sources) Start: 01-18-2025 MiscMED Miscel laneous Medication See Instructions, Takes a roll on advanced pain relief OTC to help with pain, 0 Refill(s), 74.1 Start Date: 01/18/25 Status: Ordered Medication Dispense Status: Completed Total Allowed Fills: 1 Fills Dispensed: 0 Start: 01-18-2025 MiscMED Miscel laneous Medication See Instructions, Takes a roll on advanced pain relief OTC to help with pain, 0 Refill(s), 74.1 Start Date: 01/18/25 Status: Ordered Repeat number: 1 MOUNJARO 2.5 mg/0.5 mL pen injector (9 sources) Start: 04-30-2025 inject 2.5 mg by subcutaneous injection every week MOUNJARO 2.5 mg/0.5 mL pen injector Inject 2.5 mg subcutaneously one time a week. PCP 04/30/2025 Active naproxen 500 mg delayed release oral tablet (9 sources) Nonsteroidal Anti-inflammatory Drug Start: 07-15-2025 take 1 tablet by mouth twice daily Naproxen 500 mg tablet,delayed release (DR/EC) Active 500 mg PO TWICE A DAY July 14, 2025 11:00pm Complies with drug therapy Start: 05-20-2025 End: 06-19-2025 take 1 tablet by mouth every twelve hours as needed naproxen (NAPROSYN) 500 mg tablet Take 1 tablet by mouth two times a day as needed (for Pain. Take with food.). FOR PAIN. TAKE WITH FOOD. 60 tablet 05/20/2025 06/19/2025 Active Start: 08-23-2024 End: 09-06-2024 take 1 tablet by mouth every twelve hours as needed naproxen (NAPROSYN) 500 mg tablet Take 1 tablet by mouth two times a day as needed for pain for up to 14 days. 28 tablet 08/23/2024 09/06/2024 Active Szlxo-8-VBT-EPA-Fish Oil (FISH OIL) 1,000 (120-180) mg cap (20 sources) Ezndn-3-IZJ-EPA- Fish Oil (FISH OIL) 1,000 (120-180) mg cap Take 2 g by mouth once daily. Last dose 11/09 due to surgery Active pantoprazole 40 mg delayed release oral tablet (20 sources) Proton Pump Inhibitor Start: 2023 End: 2025 take 1 tablet by mouth once daily Pantoprazole 40 mg tablet,delayed release (DR/EC) Active 40 mg PO DAILY May 11, 2024 11:00pm Complies with drug therapy Start: 07-07-2018 End: 07-15-2018 Pantoprazole Sodium 40 MG Or al Tablet Delayed Release ; 1 tab Tablet daily for 90 days Quantity: 90 {Tablet} Refills: 0 Ordered: 15-Jul-2018 MD Lazara DAMON Start: 07-Jul-2018 End: 15-Jul-2018 Status: Inactive polyethylene glycol 3350 170 00 mg powder for oral solution (4 sources) Osmotic Laxative Start: 08-04-2025 Start: 05-24-2025 MiraLax oral p owder for reconstitution gram(s) =, Oral, qDay, 0 Refill(s) Start Date: 05/24/25 Status: Ordered Medication Dispense Status: Completed Total Allowed Fills: 1 Fills Dispensed: 0 pregabalin 200 mg oral capsule (20 sources) Start: 07-15-2025 take 1 capsule by mouth three times daily as needed for pain Pregabalin 200 mg capsule Active 200 mg PO THREE TIMES A DAY as needed for pain (scale score 1-3) July 14, 2025 11:00pm Complies with drug therapy Start: 05-18-2025 End: 06-17-2025 take 1 capsule by mouth three times daily pregabalin (LYRICA) 200 mg capsule Indications: Cervical spondylosis with myelopathy , Lumbosacral spondylosis without myelopathy Take 1 capsule by mouth three times a day for 30 days. 90 capsule 2 05/18/2025 06/17/2025 Active Start: 09-28-2024 End: 07-15-2025 take 1 capsule by mouth three times daily Pregabalin (Lyrica) 150 mg capsule Discontinued 150 mg PO THREE TIMES A DAY November 17, 2024 12:00am July 15, 2025 8:19am Probiotic (2 sources) Start: 07-22-2024 Probiotic 0 Re fill(s) Start Date: 07/22/24 Status: Ordered Repeat number: 1 Start: 07-22-2024 Probiotic 0 Re fill(s) Start Date: 07/22/24 Status: Ordered sennosides, fpc 8.6 mg oral capsule (5 sources) Start: 08-04-2025 take 2 capsules by m outh at bedtime as needed Start: 02-15-2025 senna (sennosi yessi) 8.6 mg oral tablet Dose : 17.2 mg = 2 tab(s), Oral, qHS, PRN as needed for constipation, # 50 tab(s), 0 Refill(s), Pharmacy: [facility]/pharmacy #[id number], Constipation due to opioid therapy, 160, cm, 02/15/25 13:43:00 EDT, Height, kg, 02/15/25 13:43:00 EDT, Dosing Weight Start Date: 02/15/25 Status: Ordered Medication Dispense Status: Completed Quantity: 50.0 Unit: tab(s) Total Allowed Fills: 1 Fills Dispensed: 0 Indications: Drug induced constipation; Tirzepatide (1 source) Start: 08-04-2025 Tirzepatide (Mounjaro) 7.5 mg/0.5 mL pen injector Active 7.5 mg SC EVERY WEEK August 04, 2025 12:00am Complies with drug therapy Tirzepatide (1 source) Start: 07-15-2025 End: 08-04-2025 Tirzepatide (Mounjaro) 5 mg/0.5 mL pen injector Discontinued 5 mg SC MO July 14, 2025 11:00pm August 04, 2025 7:57am tiZANidine 4 mg oral tablet (20 sources) Central alpha-2 Adrenergic Agonist Start: 07-15-2025 take 1 tablet by mouth twice daily as needed Tizanidine 4 mg tablet Active 4 mg PO TWICE A DAY as needed for muscle spasticity July 14, 2025 11:00pm Complies with drug therapy Start: 05-18-2025 End: 06-17-2025 take 1 tablet by mouth every twelve hours as needed tiZANidine (ZANAFLEX) 4 mg tablet Take 1 tablet by mouth two times a day as needed. 60 tablet 2 05/18/2025 06/17/2025 Active Start: 01-12-2025 End: 03-18-2025 take 1 tablet by mouth every six hours as needed tiZANidine 4 mg oral tablet TAKE 1 TABLET BY MOUTH EVERY 6 HOURS NEEDED Start Date: 01/18/25 Status: Ordered Medication Dispense Status: Completed Total Allowed Fills: 1 Fills Dispensed: 0 traMADol hydrochloride 50 mg oral tablet (20 sources) Opioid Agonist Start: 05-24-2025 End: 08-22-2025 traMADol 50 mg oral tablet Dose : 100 mg = 2 tab(s), Oral, q8h, PRN for pain, # 60 tab(s), 2 Refill(s), Pharmacy: [facility], Spinal stenosis, lumbar region without neurogenic claudication Rotator cuff tear, 160, cm, 05/24/25 9:47:00 EDT, Height, 74.2, kg, 05/24/25 9:47:00 EDT, Dosing Weight Start Date: 05/24/25 Stop Date: 08/22/25 Status: Ordered Medication Dispense Status: Completed Quantity: 60.0 Unit: tab(s) Total Allowed Fills: 3 Fills Dispensed: 0 Indications: Spinal stenosis, lumbar region without neurogenic claudication; Unspecified rotator cuff tear or rupture of unspecified shoulder, not specified as traumatic; Start: 04-01-2025 take 2 tablets by [facility] every eight hours as needed for pain Tramadol 50 mg tablet Active 100 mg PO Q8H as needed for pain April 01, 2025 10:00am Complies with drug therapy Start: 04-01-2025 take 2 tablets by [facility] every six hours Tramadol 50 mg tablet Active 100 mg PO EVERY 6 HOURS April 01, 2025 11:00am Start: 03-03-2025 End: 05-02-2025 traMADol 50 mg oral tablet D ose : 100 mg = 2 tab(s), Oral, q8h, PRN for pain, # 60 tab(s), 1 Refill(s), Pharmacy: [facility], Spinal stenosis, lumbar region without neurogenic claudication Rotator cuff tear, 160, cm, 02/15/25 13:43:00 EDT, Height, 73.7, kg, 02/15/25 13:43:00 EDT, Dosing Weight Start Date: 03/03/25 Stop Date: 05/02/25 Status: Ordered Quantity: 60.0 Unit: tab(s) Repeat number: 2 Indications: Unspecified rotator cuff tear or rupture of unspecified shoulder, not specified as traumatic; Spinal stenosis, lumbar region without neurogenic claudication; Start: 12-02-2024 End: 12-16-2024 take 1 tablet by mouth every six hours as needed for pain traMADol (ULTRAM) 50 mg tablet Indications: Cervical myelopathy (HCC) Take 1 tablet by mouth every 6 hours as needed for pain for up to 7 days. 28 tablet 12/09/2024 12/16/2024 Active Start: 05-20-2024 End: 04-01-2025 take 1 tablet by mouth once daily as needed Tramadol 50 mg tablet Discontinued 50 mg PO DAILY as needed January 27, 2025 8:41am April 01, 2025 10:01am Start: 03-13-2024 End: 09-02-2024 take 1 tablet by mouth every six hours as needed traMADol (ULTRAM) 50 mg tablet Take 50 mg by mouth every 6 hours as needed for pain. 03/13/2024 Active Vitamin D2 1.25 mg (50,000 intl units) oral capsule (4 sources) Start: 04-21-2025 End: 07-20-2025 Vitamin D2 1.25 mg (50,000 i ntl units) oral capsule Dose : 50,000 International_Unit = 1 cap(s), Oral, qWeek, # 13 cap(s), 0 Refill(s), Pharmacy: [facility], 160, cm, 02/15/25 13:43:00 EDT, Height, kg, 02/15/25 13:43:00 EDT, Dosing Weight Start Date: 04/21/25 Stop Date: 07/20/25 Status: Ordered Medication Dispense Status: Completed Quantity: 13.0 Unit: cap(s) Total Allowed Fills: 1 Fills Dispensed: 0 Start: 04-21-2025 End: 07-20-2025 Vitamin D2 1.25 mg (50,000 i ntl units) oral capsule Dose : 50,000 International_Unit = 1 cap(s), Oral, qWeek, # 13 cap(s), 0 Refill(s), Pharmacy: [facility], 160, cm, 02/15/25 13:43:00 EDT, Height, kg, 02/15/25 13:43:00 EDT, Dosing Weight Start Date: 04/21/25 Stop Date: 07/20/25 Status: Ordered Quantity: 13.0 Unit: cap(s) Repeat number: 1 Completed/Discontinued Medications Medication Drug Class(es) Dates Sig (Normalized) Sig (Original) acetaminophen 300 mg / HYDROcodone bitartrate 5 mg oral tablet (3 sources) Opioid Agonist Start: 07-03-2014 End: 05-20-2024 Hydrocodone-Acetam inophen (Vicodin 5-300 Mg Tablet) 1 EACH tablet Discontinued 1 {tbl} PO EVERY 4 HOURS NEEDED as needed for Pain July 02, 2014 11:00pm May 20, 2024 8:58am acetaminophen 325 mg / oxyCODONE hydrochloride 5 mg oral tablet (1 source) Opioid Agonist Start: 06-17-2020 End: 06-24-2020 take 1 tablet by mouth twice daily as needed oxyCODONE-Acetamin ophen 5-325 MG Oral Tablet ; 1 (one) Tablet two times daily as needed for 7 days Quantity: 14 {Tablet} Refills: 0 Ordered: 04-Jul-2020 MD Lazara DAMON Start: 17-Jun-2020 End: 24-Jun-2020 Status: Inactive Comments: Medication taken as needed. Comment on above: Medication taken as needed. 60 actuat aclidinium bromide 0.4 mg/actuat dry powder inhaler (1 source) Start: 11-21-2018 End: 12-05-2018 take 1 puff(s) by inhalation twice daily as needed Tudorza Pressair 400 MCG/ACT Inhalation Aerosol Powder Breath Activated ; 1 puff Puff two times daily, as needed for 90 days Quantity: 1 {Inhaler} Refills: 0 Ordered: 05-Dec-2018 MD Lazara DAMON Start: 21-Nov-2018 End: 05-Dec-2018 Status: Inactive Comments: Medication taken as needed. Comment on above: Medication taken as needed. azithromycin 250 mg oral tablet (1 source) Macrolide Antimicrobial Start: 09-19-2018 End: 09-24-2018 Azithromycin 250 MG Oral Tablet ; 2 (two) Tablet on day one, then 1 tablet daily for 4 days for 5 days Quantity: 6 {Tablet} Refills: 0 Ordered: 06-Oct-2018 MD JEYSON BLACK Start: 19-Sep-2018 End: 24-Sep-2018 Status: Inactive benzonatate 100 mg oral capsule (8 sources) Non-narcotic Antitussive Start: 01-06-2020 End: 11-09-2024 benzonatate (TESSALON PERLE) 100 mg capsule Take 100 mg by mouth. PACC 11/04/24 no longer taking [facility] 01/06/2020 11/09/2024 Discontinued (Course of therapy completed) 30 ml bupivacaine hydrochloride 5 mg/ml injection (2 sources) Amide Local Anesthetic Start: 01-26-2025 End: 01-26-2025 BUPivacaine (PF) 0.5 % (5 mg/mL) 4 mL injection Start: 01-26-2025 End: 01-26-2025 4 mL, Injection - FOR ORTHO USE ONLY, ONCE, 1 dose, Starting on Sat01/26/25 at 1241, Until Sat01/26/25 at 1241 cephalexin 500 mg oral capsule (3 sources) Cephalosporin Antibacterial Start: 10-26-2014 End: 05-20-2024 take 1 capsule by mouth every six hours Cephalexin 500 MG capsule Discontinued 500 mg PO EVERY 6 HOURS 12 0 October 26, 2014 12:00am May 20, 2024 8:58am cyclobenzaprine hydrochloride 10 mg oral tablet (8 sources) Muscle Relaxant End: 11-09-2024 cyclobenzaprine (FLEXERIL) 10 mg tablet PACC 11/04/24 no longer taking [facility] 11/09/2024 Discontinued (Discontinued by another Health Care Provider) doxycycline hyclate 100 mg oral capsule (9 sources) Tetracycline-class Drug Start: 09-15-2024 End: 11-09-2024 take 1 capsule by mouth every twelve hours doxycycline hyclate (VIBRAMYCIN) 100 mg capsule Take 1 capsule by mouth every 12 hours. PACC 11/04/24 no longer taking [facility] 09/15/2024 11/09/2024 Discontinued (Course of therapy completed) Start: 06-03-2024 End: 06-13-2024 doxycycline hyclate 100 mg o ral capsule Dose : 100 mg = 1 cap(s), Oral, BID, X 10 day(s), # 20 cap(s), 0 Refill(s), 06/13/24 9:27:00 AM EDT, Pharmacy: [facility] #[id number], COPD exacerbation, 158, cm, 06/03/24 7:47:00 EDT, Height, 69.4, kg, 06/03/24 7:47:00 EDT, Dosing Weight Start Date: 06/03/24 Stop Date: 06/13/24 Status: Ordered escitalopram 20 mg oral tablet (20 sources) Serotonin Reuptake Inhibitor Start: 07-22-2024 End: 07-17-2025 take 1 tablet by mouth once daily Escitalopram Oxalate 20 mg tablet Discontinued 20 mg PO daily August 11, 2024 12:00am July 15, 2025 8:17am Start: 03-13-2024 End: 11-09-2024 take 1 tablet by mouth once escitalopram oxalate (BRIGETTE PRO) 10 mg tablet Take 10 mg by mouth every afternoon. 03/13/2024 11/09/2024 Discontinued (Discontinued by another Health Care Provider) Start: 03-13-2024 End: 05-30-2025 escitalopram 10 mg oral tabl et Dose : 10 mg = 1 tab(s), Oral, qDay, TAKE 1 TABLET BY MOUTH EVERY DAY, # 90 tab(s), 3 Refill(s), Pharmacy: [facility], 158, cm, 06/03/24 7:47:00 EDT, Height, kg, 06/03/24 7:47:00 EDT, Dosing Weight Start Date: 06/04/24 Stop Date: 05/30/25 Status: Ordered ezetimibe 10 mg oral tablet (14 sources) Dietary Cholesterol Absorption Inhibitor Start: 03-13-2024 End: 05-30-2025 take 1 tablet by mouth once daily Ezetimibe 10 mg tablet Discontinued 10 mg PO DAILY May 11, 2024 11:00pm August 11, 2024 4:05pm gabapentin 600 mg oral tablet (20 sources) Anti-epileptic Agent Start: 05-12-2024 End: 10-01-2024 take 1 tablet by mouth once daily Gabapentin 600 mg tablet Discontinued 600 mg PO DAILY May 12, 2024 1:30pm October 01, 2024 10:32am Start: 02-15-2020 End: 11-09-2024 take 2 capsules by mouth three times daily gabapentin (NEURONTIN) 300 mg capsule Take 600 mg by mouth three times a day. [facility] 11/04/24 NO LONGER TAKING JS 02/15/2020 11/09/2024 Discontinued (Discontinued by another Health Care Provider) Start: 06-17-2019 End: 09-15-2019 take 1 capsule by mouth four times daily as needed Neurontin 300 MG Oral Capsule ; 1 (one) Capsule four times daily, as needed for 90 days Quantity: 270 {Capsule} Refills: 0 Ordered: 17-Jun-2019 MD Lazara DAMON Start: 17-Jun-2019 End: 15-Sep-2019 Status: Inactive Comments: Medication taken as needed. Start: 07-03-2014 End: 05-12-2024 take 1 tablet by mouth three times daily at mealtime Gabapentin 600 MG tablet Discontinued 600 mg PO 3 TIMES DAILY WITH MEALS July 02, 2014 11:00pm May 12, 2024 1:36pm Comment on above: Cancel any remaining rx for 300 mg tabs Medication taken as needed. glipiZIDE er 2.5 mg 24 hr extended release oral tablet (1 source) Sulfonylurea Start: 11-03-19 End: 12-04-19 take 1 tablet by mouth once daily GlipiZIDE ER 2.5 MG Oral Tablet Extended Release 24 Hour ; 1 (one) Tablet Tablet daily for 30 days Quantity: 60 {Tablet} Refills: 0 Ordered: 05-Dec-2018 REN Beth Start: 03-Nov-2018 End: 03-Dec-2018 Status: Inactive glyBURIDE 2.5 mg oral tablet (1 source) Sulfonylurea Start: 12-06-19 End: 06-17-20 19 take 1 tablet by mouth twice daily glyBURIDE 2.5 MG Oral Tablet ; 1 (one) Tablet Tablet two times daily for 30 days Quantity: 60 {Tablet} Refills: 2 Ordered: 17-Jun-2019 REN ARDON Start: 05-Dec-2018 End: 17-Jun-2019 Status: Inactive ibuprofen 800 mg oral tablet (3 sources) Nonsteroidal Anti-inflammatory Drug Start: 07-03-20 End: 05-20-20 take 1 tablet by mouth three times daily as needed for pain Ibuprofen (Motrin) 800 MG tablet Discontinued 800 mg PO 3 TIMES DAILY NEEDED as needed for Pain July 02, 2014 11:00pm May 20, 2024 8:58am isosorbide dinitrate 30 mg oral tablet (1 source) Nitrate Vasodilator take 1 tablet by mouth once daily Isosorbide Dinitrate 30 MG Oral Tablet ; 1 daily (30 MG) Status: Inactive lisinopril 10 mg oral tablet (1 source) Angiotensin Converting Enzyme Inhibitor Start: 07-07-20 18 End: 09-03-20 18 Lisinopril 10 MG Oral Tablet ; 1 tab Tablet daily for 90 days Quantity: 90 {Tablet} Refills: 0 Ordered: 03-Sep-2018 REN ARDON Start: 07-Jul-2018 End: 03-Sep-2018 Status: Inactive modified 24 hr metFORMIN hydrochloride 500 mg extended release oral tablet (3 sources) Biguanide Start: 09-05-20 18 End: 06-17-20 19 take 2 tablets by mouth once daily metFORMIN HCl ER 500 MG Oral Tablet Extended Release 24 Hour ; 2 (two) Tablet Tablet daily for 30 days Quantity: 60 {Tablet} Refills: 5 Ordered: 17-Jun-2019 REN ARDON Start: 05-Sep-2018 End: 17-Jun-2019 Status: Inactive Start: 09-05-2018 End: 09-05-2018 take 2 tablets by mouth once daily MetFORMIN HCl ER (MOD) 500 MG Oral Tablet Extended Release 24 Hour ; 2 (two) Tablet daily for 30 days Quantity: 60 {Tablet} Refills: 5 Ordered: 05-Sep-2018 MD Lazara DAMON Start: 05-Sep-2018 End: 05-Sep-2018 Status: Inactive Start: 07-15-2018 End: 09-03-2018 take 1 tablet by mouth twice daily MetFORMIN HCl 500 MG Oral Tablet ; one Tablet two times daily for 90 days Quantity: 180 {Tablet} Refills: 5 Ordered: 03-Sep-2018 MD Lazara DAMON Start: 15-Jul-2018 End: 03-Sep-2018 Status: Inactive mometasone furoate 0.05 mg/actuat metered dose nasal spray (4 sources) Corticosteroid Start: 07-07-2018 End: 07-15-2018 take 2 spray(s) nasal route once daily Mometasone Furoate 50 MCG/ACT Nasal Suspension ; 2 (two) [place] each nostril qday for 90 days Quantity: 1 {Bottle} Refills: 2 Ordered: 15-Jul-2018 MD Lazara DAMON Start: 07-Jul-2018 End: 15-Jul-2018 Status: Inactive Start: 07-03-2014 End: 10-01-2024 Mometasone (Asmanex 220 Mcg Twisthaler) 220 MCG inhaler Discontinued 220 ug INHALATION TWICE A DAY July 02, 2014 11:00pm October 01, 2024 10:34am Start: 07-03-2014 End: 10-01-2024 Mometasone (Asmanex 220 Mcg Twisthaler) 220 MCG inhaler Discontinued 220 ug INHALATION TWICE A DAY July 03, 2014 12:00am October 01, 2024 11:34am montelukast 10 mg oral tablet (12 sources) Leukotriene Receptor Antagonist Start: 07-03-2014 End: 11-09-2024 take 1 tablet by mouth once daily Montelukast 10 MG tablet Discontinued 10 mg PO DAILY July 02, 2014 11:00pm May 20, 2024 8:58am nystatin 245568 unt/ml oral suspension (1 source) Polyene Antifungal Start: 11-03-2018 End: 11-03-2018 take 5 mL by mouth four times daily Nystatin 496854 UNIT/ML Mouth/Throat Suspension ; 5 Milliliter swish and swallow qid for 14 days Quantity: 150 {Milliliter} Refills: 0 Ordered: 03-Nov-2018 MD Cale CARRILLO Start: 03-Nov-2018 End: 03-Nov-2018 Status: Inactive [place]ana 7-Nlg-Jcl-Fish Oil (Fish Oil) 900-1,400 mg capsule,delayed release(DR/EC) (3 sources) Start: 09-16-2024 End: 01-27-2025 [place]ana 4-Kps-Vyu-Fish Oil (Fish Oil) 900-1,400 mg capsule,delayed release(DR/EC) Discontinued NMA PO September 16, 2024 12:00am January 27, 2025 8:40am Start: 09-16-2024 End: 01-27-2025 [place]ana 7-Ygi-Idc-Fish Oil (Fi sh Oil) 900-1,400 mg capsule,delayed release(DR/EC) Discontinued NMA PO September 16, 2024 1:00am January 27, 2025 9:40am omeprazole 40 mg delayed release oral capsule (9 sources) Proton Pump Inhibitor Start: 02-15-2020 End: 11-09-2024 omeprazole (PRILOSEC) 40 mg capsule PACC 11/04/24 no longer taking js 02/15/2020 11/09/2024 Discontinued (Discontinued by another Health Care Provider) ondansetron 4 mg disintegrating oral tablet (1 source) Serotonin-3 Receptor Antagonist Start: 01-30-2019 End: 06-17-2019 take 1 tablet by mouth every four hours as needed Ondansetron 4 MG Oral Tablet Disintegrating ; 1 (one) Tablet every four hours, as needed for 3 days Quantity: 10 {Tablet} Refills: 1 Ordered: 17-Jun-2019 REN ARDON Start: 30-Jan-2019 End: 17-Jun-2019 Status: Inactive Comments: Medication taken as needed. Comment on above: Medication taken as needed. oxyCODONE hydrochloride 10 mg oral tablet (18 sources) Opioid Agonist Start: 01-18-2025 End: 04-01-2025 take 1 tablet by mouth every eight hours as needed for pain Oxycodone 10 mg tablet Discontinued 10 mg PO EVERY 8 HOURS as needed for pain 0 January 26, 2025 11:00pm April 01, 2025 9:59am Start: 01-07-2025 End: 01-12-2025 take 1 tablet by mouth every six hours as needed for pain oxyCODONE IR (ROXICODONE) 5 mg immediate release tablet Indications: Status post cervical spinal fusion Take 1 tablet by mouth every 6 hours as needed for pain for up to 5 days. 20 tablet 01/07/2025 01/12/2025 Active predniSONE 20 mg oral tablet (9 sources) Start: 06-03-2024 End: 11-09-2024 predniSONE (DELTASONE) 20 mg tablet [facility] 11/04/24 NOT TAKING [facility] 06/03/2024 11/09/2024 Discontinued (Course of therapy completed) rosuvastatin calcium 40 mg oral tablet (3 sources) HMG-CoA Reductase Inhibitor Start: 07-03-2014 End: 05-20-2024 take 1 tablet by mouth once daily Rosuvastatin (Crestor) 40 MG tablet Discontinued 40 mg PO DAILY July 02, 2014 11:00pm May 20, 2024 8:59am ticagrelor 90 mg oral tablet (9 sources) Start: 02-15-2020 End: 11-09-2024 ticagrelor (BRILINTA) 90 mg tablet Take 90 mg by mouth once daily. Pt reports not taking PACC 11/0902/15/2020 11/09/2024 Discontinued (Discontinued by another Health Care Provider) Start: 02-15-2020 ticagrelor (BR ILINTA) 90 mg tablet Take 90 mg by mouth. 02/15/2020 Active 60 actuat tiotropium 0.0025 mg/actuat inhalation spray (20 sources) Anticholinergic Start: 05-12-2024 End: 04-01-2025 take 2.5 ug by inhalation once daily Tiotropium [place] (Spiriva Respimat) 2.5 mcg/actuation mist Discontinued 2 NMA INHALATION DAILY May 11, 2024 11:00pm April 01, 2025 10:00am Start: 03-13-2024 End: 05-30-2025 Spiriva HandiHaler 18 mcg inhalation capsule Dose : 18 mcg = 1 cap(s), Inhalation, qDay, # 90 cap(s), 3 Refill(s), Pharmacy: [facility], 158, cm, 06/03/24 7:47:00 EDT, Height, kg, 06/03/24 7:47:00 EDT, Dosing Weight Start Date: 06/04/24 Stop Date: 05/30/25 Status: Ordered Start: 02-15-2020 End: 11-09-2024 take 1 capsule by inhalation once daily tiotropium (SPIRIVA) 18 mcg inhalation capsule Inhale 18 mcg as instructed once daily. [facility] 11/04/24 no longer taking [facility] 02/15/2020 11/09/2024 Discontinued (Discontinued by another Health Care Provider) traZODone hydrochloride 100 mg oral tablet (10 sources) Serotonin Reuptake Inhibitor Start: 03-13-2024 End: 11-09-2024 take 1 tablet by mouth once daily at bedtime traZODone (DESYREL) 100 mg tablet Take 100 mg by mouth daily at bedtime. PAC 11/04/24 NO LONGER TAKING [facility] 03/13/2024 11/09/2024 Discontinued (Discontinued by another Health Care Provider) 1 ml triamcinolone acetonide 40 mg/ml injection (2 sources) Corticosteroid Start: 01-26-2025 End: 01-26-2025 triamcinolone acetonide 80 mg injection (KeNALog 40) Start: 01-26-2025 End: 01-26-2025 80 mg, Injection - FOR ORTHO USE ONLY, ONCE, 1 dose, Starting on Sat01/26/25 at 1241, Until Sat01/26/25 at 1241 Problems Active Problems Problem Classification Problem Date Documented Da te Episodic/Chronic Acute posthemorrhagic anemia (3 sources) Acute posthemorrhagic anemia; Translations: [Acute posthemorrhagic anemia] 06-17-2020 Episodic Comment on above: 11.1 (06/04/20). Administrative/social admission (2 sources) Patient encounter status; Translations: [Counseling, unspecified] 09-19-2018 Episodic Anxiety disorders (12 sources) Generalized anxiety disorder; Translations: [Generalized anxiety disorder] 03-13-2024 Chronic Comment on above: ON MED Aortic and peripheral arterial embolism or thrombosis (11 sources) Occlusion of aortoiliac artery; Translations: [Other arterial embolism and thrombosis of abdominal aorta] Onset: 5 09-16-2024 Chronic Comment on above: S/p L common iliac a rtery stent 09/02/24 Asthma (4 sources) Asthma; Translations: [Unspecified asthma, uncomplicated] Onset: 5 08-04-2025 Chronic Chronic obstructive pulmonary disease and bronchiectasis (20 sources) Mild chronic obstructive pulmonary disease; Translations: [Chronic obstructive pulmonary disease, unspecified] Onset: 5 07-27-2020 Chronic Comment on above: counselled that need s to stop smoking. Abnormal lung sounds. INHALERS Chronic obstructive pulmonary disease and bronchiectasis (3 sources) Chronic obstructive pulmonary disease and bronchiectasis 05-20-2020 Complications of surgical procedures or medical care (2 sources) Hypoinsulinemia following procedure; Translations: [Postprocedural hypoinsulinemia] Onset: 5 11-05-2024 Chronic Coronary atherosclerosis and other heart disease (20 sources) Coronary arteriosclerosis; Translations: [Atherosclerotic heart disease of [place] coronary artery without angina pectoris] Onset: 5 07-27-2020 Chronic Comment on above: stent placed 09/17, CABGx3 06/19. Sees cards. Diabetes mellitus with complications (12 sources) Neuropathy due to diabetes mellitus; Translations: [Type 2 diabetes mellitus with diabetic neuropathy, unspecified] Onset: 4 04-27-2019 Chronic Comment on above: new diagnosis. Diabetes mellitus without complication (20 sources) Type 2 diabetes mellitus without complication; Translations: [Type 2 diabetes mellitus without complications] Onset: 4 07-27-2020 Chronic Comment on above: Consider decrease me tormin if A1C good (in Janumet) to see if helps with diarrhea. Labs getting drawn elsewhere. ON MEDS Diabetes mellitus without complication (4 sources) Diabetes mellitus without complication 05-20-2020 Disorders of lipid metabolism (20 sources) Mixed hyperlipidemia; Translations: [Mixed hyperlipidemia] Onset: 5 07-27-2020 Chronic Comment on above: OPE=[id number] (02/19/18). ON MED Esophageal disorders (11 sources) Gastroesophageal reflux disease without esophagitis; Translations: [Gastro-esophageal reflux disease without esophagitis] Onset: 5 10-24-2021 Chronic Comment on above: does not do well if off of meds. Had symptoms on prilosec 20mg dose in past so will keep at 40mg. Esophageal disorders (2 sources) Esophageal disorders 05-20-2020 Essential hypertension (20 sources) Hypertensive disorder; Translations: [Essential (primary) hypertension] Onset: 5 11-09-2024 Chronic Genitourinary symptoms and ill-defined conditions (1 source) Increased frequency of urination; Translations: [Frequency of micturition] 06-17-2019 Episodic Headache; including migraine (1 source) Headache; including migraine 07-15-2018 Immunizations and screening for infectious disease (1 source) Needs influenza immunization; Translations: [Encounter for immunization] 07-15-2018 Episodic Inflammatory diseases of female pelvic organs (1 source) Subacute vaginitis; Translations: [Subacute and chronic vaginitis] 06-17-2019 Episodic Mood disorders (8 sources) Major depressive disorder; Translations: [Major depressive disorder, single episode, unspecified] 05-12-2024 Chronic Comment on above: ON MED Mycoses (2 sources) Candidiasis of mouth; Translations: [Candidal stomatitis] 11-03-2018 Episodic Noninfectious gastroenteritis (3 sources) Chronic diarrhea; Translations: [Noninfective gastroenteritis and colitis, unspecified] 05-20-2020 Episodic Nonspecific chest pain (14 sources) Chest pain 04-28-2020 Episodic Osteoarthritis (20 sources) Arthritis of knee; Translations: [Unilateral primary osteoarthritis, unspecified knee] Onset: 5 09-19-2018 Chronic Other acquired deformities (4 sources) Lumbar spondylolisthesis; Translations: [Spondylolisthesis, lumbar region] 05-18-2025 Episodic Other acquired deformities (1 source) Spondylolysis; Translations: [Spondylolysis, lumbar region] 05-18-2025 Episodic Other acquired deformities (2 sources) Spondylolisthesis, lumbar region; Translations: [Spondylolisthesis of lumbar region] Onset: 5 Episodic Other acquired deformities (1 source) Spondylolysis, lumbar region; Translations: [Lumbar spondylolysis] Onset: 5 Episodic Other aftercare (1 source) Post-discharge follow-up; Translations: [Encounter for follow-up examination after completed treatment for conditions other than malignant neoplasm] 06-17-2020 Episodic Other aftercare (3 sources) Surgical follow-up; Translations: [Encounter for surgical aftercare following surgery on the circulatory system] 09-16-2024 Episodic Other aftercare (2 sources) Other usp (current) drug therapy; Translations: [Other usp (current) drug therapy] Onset: Episodic Other and ill-defined heart disease (7 sources) Heart disease 04-27-2020 Chronic Other and ill-defined heart disease (10 sources) Diastolic dysfunction; Translations: [Other ill-defined heart diseases] 08-11-2024 Chronic Other and ill-defined heart disease (1 source) Other ill-defined heart diseases; Translations: [Other ill-defined heart diseases] Onset: Chronic Other circulatory disease (3 sources) Iliac artery stenosis 03-13-2024 Chronic Other circulatory disease (7 sources) Iatrogenic hypotension; Translations: [Other hypotension] 06-17-2020 Episodic Other connective tissue disease (2 sources) Female pelvic floor dysfunction; Translations: [Other specified disorders of muscle] 12-05-2018 Episodic Other connective tissue disease (10 sources) H/O: arthrodesis; Translations: [Arthrodesis status] Onset: 5 12-08-2024 Episodic Other connective tissue disease (4 sources) Adhesive capsulitis of right shoulder; Translations: [Adhesive capsulitis of right shoulder] 01-26-2025 Episodic Other connective tissue disease (2 sources) Myofascial pain; Translations: [Myalgia, other site] 02-16-2025 Episodic Other connective tissue disease (1 source) Unspecified rotator cuff tear or rupture of right shoulder, not specified as traumatic; Translations: [Unspecified rotator cuff tear or rupture of right shoulder, not specified as traumatic] Onset: 5 Episodic Other gastrointestinal disorders (1 source) Dysphagia; Translations: [Dysphagia, unspecified] 11-09-2024 Episodic Other lower respiratory disease (1 source) Abnormal breathing; Translations: [Unspecified abnormalities of breathing] 11-05-2024 Episodic Other lower respiratory disease (6 sources) Dyspnea on exertion; Translations: [Other forms of dyspnea] 05-20-2024 Episodic Other nervous system disorders (2 sources) Neuropathy; Translations: [Polyneuropathy, unspecified] 07-07-2018 Chronic Other nervous system disorders (20 sources) Cervical myelopathy; Translations: [Disease of spinal cord, unspecified] Onset: 5 09-08-2024 Chronic Other nervous system disorders (14 sources) Chronic pain; Translations: [Other chronic pain] Onset: 5 11-10-2024 Chronic Other nervous system disorders (3 sources) Peripheral nerve disease ; Translations: [Polyneuropathy, unspecified] 05-12-2024 Chronic Other nervous system disorders (2 sources) Other chronic pain; Translations: [Chronic right shoulder pain] Onset: 5 Chronic Other nervous system disorders (2 sources) Disease of spinal cord, unspecified; Translations: [Cervical myelopathy (HCC)] Onset: 5 Chronic Other nervous system disorders (2 sources) Postoperative pain ; Translations: [Other acute postprocedural pain] 06-17-2020 Episodic Other non-traumatic joint disorders (2 sources) Pain in left shoulder; Translations: [Pain in joint, shoulder region] Onset: 5 01-18-2025 Episodic Other nutritional; endocrine; and metabolic disorders (20 sources) Obese class I; Translations: [Obesity, Class I, BMI 30-34.9] Onset: 5 11-30-2024 Chronic Other upper respiratory disease (4 sources) Seasonal allergy; Translations: [Other seasonal allergic rhinitis] 06-17-2019 Chronic Other upper respiratory disease (1 source) Vocal cord paralysis; Translations: [Paralysis of vocal cords and larynx, unilateral] 11-09-2024 Chronic Other upper respiratory disease (1 source) Paralysis of vocal cords and larynx, unilateral; Translations: [Unilateral vocal cord paralysis] Onset: 5 Chronic Other upper respiratory infections (1 source) Chronic sinusitis; Translations: [Chronic sinusitis, unspecified] 09-19-2018 Chronic Peripheral and visceral atherosclerosis (12 sources) Peripheral vascular disease, unspecified; Translations: [Peripheral vascular disease, unspecified] Onset: 5 06-17-2020 Chronic Residual codes; unclassified (11 sources) Obstructive sleep apnea syndrome; Translations: [Obstructive sleep apnea (adult) (pediatric)] 03-13-2024 Chronic Residual codes; unclassified (20 sources) Sleep apnea; Translations: [Sleep apnea, unspecified] Onset: 5 11-30-2024 Chronic Residual codes; unclassified (2 sources) Obstructive sleep apnea (adult) (pediatric); Translations: [Obstructive sleep apnea (adult) (pediatric)] Onset: Chronic Residual codes; unclassified (6 sources) Tobacco user; Translations: [Tobacco use] 06-17-2020 Episodic Comment on above: smoker. Residual codes; unclassified (2 sources) Overweight; Translations: [Other specified conditions influencing health status] 09-19-2018 Episodic Residual codes; unclassified (1 source) Procedure not done; Translations: [Procedure and treatment not carried out, unspecified reason] 03-24-2024 Episodic Spondylosis; intervertebral disc disorders; other back problems (20 sources) Cervical spondylosis; Translations: [Other spondylosis with myelopathy, cervical region] Onset: 4 09-28-2024 Chronic Spondylosis; intervertebral disc disorders; other back problems (20 sources) Spinal stenosis in cervical region; Translations: [Spinal stenosis, cervical region] Onset: 4 07-27-2020 Episodic Substance-related disorders (7 sources) Tobacco dependence caused by cigarettes; Translations: [Nicotine dependence, cigarettes, in remission] Onset: 5 10-01-2024 Chronic Comment on above: LDCT ordered for Sep Unclassified (1 source) Follow-up after Hospitalization - The diagnosis of chest pain. The patient reports feeling feels well with minor complaints. The hospitalization was at [facility]. New medicaitons include: ASA and Isosorbide. Note for Follow-up after Hospitalization: going to [place] with Dr Woodard for heart cath 05-27-20. Eating better and losing weight. Going thru a divorce. C/O tiredness at times. 05-20-2020 Unclassified (1 source) sore throat - The sore throat has been occurring for 1 week. The symptoms have been associated with change in voice, cough (green), difficulty in swallowing and ear pain, while the symptoms have not been associated with fever. The sore throat is relieved by analgesics (Ibuprofen, Mucinex, Dayquil/Nyquil). 09-19-2018 Unclassified (1 source) Back Pain Lumbar, Chronic - This condition occurred without any known injury. The activity involved prolonged sitting. Note for Chronic lumbar back pain: Pt. denies any change in urination. 07-15-2018 Unclassified (1 source) [ADDITIONAL REASON] Knee Pain - The knee pain has been occurring for 2 months. The knee pain is aggravated by climbing. Note for Knee Pain: Pt. climbs into a truck daily and is having difficulty with pain by the end of the day. 07-15-2018 Unclassified (1 source) [ADDITIONAL REASON] Diabetes Type II, Follow Up - Note for Follow up for diabetes type II: Pt. does not check blood glucose at home. Pt. would like to discuss medications that are not covered by insurance. 07-15-2018 Unclassified (2 sources) History of cervical spine fusion 01-12-2025 Unclassified (3 sources) Chronic pain of right upper limb 01-12-2025 Unclassified (2 sources) Traumatic tear of right rotator cuff, unspecified tear extent, initial encounter 01-19-2025 Unclassified (1 source) Left shoulder pain, unspecified chronicity 01-20-2025 Unclassified (4 sources) Peripheral arterial disease 10-12-2024 Unclassified (6 sources) Autogenerated Problem Onset: 5 05-20-2025 Unclassified (1 source) Low back pain, unspecified back pain laterality, unspecified chronicity, unspecified whether sciatica present; Translations: [Low back pain, unspecified back pain laterality, unspecified chronicity, unspecified whether sciatica present] Onset: 4 Unclassified (1 source) Acute low back pain without sciatica, unspecified back pain laterality; Translations: [Acute low back pain without sciatica, unspecified back pain laterality] Onset: Past or Other Problems Problem Classification Problem Date Documented Da te Episodic/Chronic Abdominal hernia (11 sources) Umbilical hernia; Translations: [Hernia of anterior abdominal wall] Onset: 01-04-2025 03-13-2024 Episodic Complications of surgical procedures or medical care (9 sources) Complication of procedure; Translations: [Complication of surgical and medical care, unspecified, initial encounter] Onset: 02-23-2025 02-23-2025 Episodic Coronary atherosclerosis and other heart disease (20 sources) Stented coronary artery; Translations: [Presence of coronary angioplasty implant and graft] Onset: 11-30-2024 11-30-2024 Episodic Other aftercare (20 sources) Long-term current use of opiate analgesic drug; Translations: [prison (current) use of opiate analgesic] Onset: 11-10-2024 11-10-2024 Episodic Other aftercare (1 source) Encounter for surgical aftercare following surgery on the circulatory system; Translations: [Encounter for surgical aftercare following surgery on the circulatory system] Onset: 03-08-2025 Episodic Other connective tissue disease (20 sources) History of cervical spine fusion; Translations: [Arthrodesis status] Onset: 12-08-2024 12-15-2024 Episodic Other connective tissue disease (6 sources) Arthrodesis status; Translations: [S/P cervical spinal fusion] Onset: 10-09-2024 Episodic Other connective tissue disease (1 source) Myalgia, other site; Translations: [Myofascial pain] Onset: 02-16-2025 Episodic Other connective tissue disease (1 source) Adhesive capsulitis of right shoulder; Translations: [Adhesive capsulitis of right shoulder] Onset: 02-16-2025 Episodic Other gastrointestinal disorders (1 source) Dysphagia, unspecified; Translations: [Dysphagia, unspecified type] Onset: 11-09-2024 Episodic Other lower respiratory disease (1 source) Unspecified abnormalities of breathing; Translations: [Unspecified abnormalities of breathing] Onset: 11-09-2024 Episodic Other lower respiratory disease (1 source) Other forms of dyspnea; Translations: [Other forms of dyspnea] Onset: 03-12-2025 Episodic Other non-traumatic joint disorders (20 sources) Chronic pain of right upper limb; Translations: [Pain in right shoulder] Onset: 11-10-2024 01-12-2025 Episodic Other non-traumatic joint disorders (2 sources) Pain in right shoulder; Translations: [Chronic right shoulder pain] Onset: 01-13-2025 Episodic Other screening for suspected conditions (not mental disorders or infectious disease) (3 sources) Encounter for screening for nutritional disorder; Translations: [Encounter for screening for other suspected endocrine disorder] Onset: 11-04-2024 Episodic Residual codes; unclassified (20 sources) History of clinical finding in subject; Translations: [Personal history of other medical treatment] Onset: 11-30-2024 11-30-2024 Episodic Residual codes; unclassified (20 sources) Postprocedural state finding; Translations: [Other specified postprocedural states] Onset: 12-08-2024 12-08-2024 Episodic Sprains and strains (6 sources) Strain of muscle(s) and tendon(s) of the rotator cuff of right shoulder, initial encounter; Translations: [Rotator cuff (capsule) sprain] Onset: 01-19-2025 01-19-2025 Episodic Unclassified (1 source) Coronary Artery Disease (CAD) - Note for Coronary artery disease: Cardiac Surgery at [facility]. Has questions about Metoprolol ( blood pressures have been running low). Atorvastatin is currently on hold until cardio visit with Dr. Jignesh Yost on July 14, 2020. Also reported that surgeon for back wanted her to have surgery at some point for spinal stenosis, but needs to see certified recreational therapist before proceeding with any other surgeries. 06-17-2020 Unclassified (1 source) [ADDITIONAL REASON] Transition into care - The patient is transitioning into care from a hospital ([facility]) and a summary of care was reviewed. 06-17-2020 Unclassified (1 source) !Patient notification of lab results - Dr. Damon. Note for !Patient notification of lab results : Chidi, your urine culture came back normal. So you do not have a urinary tract infection or obvious vaginal infection. Assuming you are still having trouble, I would recommend that you see a yeast cake cutter for that. If you want any help setting that up just let us know. 06-19-2019 Unclassified (1 source) !Patient notification of lab results - Dr. Damon. Note for !Patient notification of lab results : fabienne Weaver for the delay in your results. Your A1C (3 month sugar check) was back down to 7.2 which is much improved. Our goal is still to get it under 7, so I think we did the right thing by going up on the Janumet.Let us know if you have any questions. 05-20-2019 Unclassified (1 source) Diarrhea - The onset of the diarrhea has been acute and has been occurring in a persistent pattern for 3 days. The symptoms have been associated with abdominal pain, nausea and weakness (sugars high and low). Note for Diarrhea: using Immodium prn. 01-30-2019 Unclassified (1 source) Mouth pain - The onset of the mouth pain has been acute and has been occurring for 10 days. Note for Mouth pain: Pt states had bilateral hip injections at [facility] Lidocaine/Kenalog on Oct 23 and Oct 30. Two days after first injection noted tongue pain and feeling of thickness. Now states tongue has white patches and is sore. Throat also starting to hurt. Burning w/ eating and drinking. H/O thrush.Also c/o hands cramping and increased thirst (is diabetic but does not check blood sugars at home). Also c/o difficulty sleeping. Here for exam. 11-03-2018 Unclassified (1 source) !Patient notification of lab results - Tommy. Note for !Patient notification of lab results : Chidi I did get your A1C results then, and it was MUCH improved at 7.5 (down from 9.5). Although the metformin has something to do with that, it is clear that you are working on your diet as well.Our goal is to get that under 7, so hopefully with the higher dose of metformin (if you can take it) and your continued work on diet and exercise we can get it there.Let us know if you have any questions. 09-04-2018 Unclassified (1 source) Transition into care - The patient is transitioning into care from another physician. Note for Transition into care: Moved here from [place] 07-07-2018 Results Test Name Value Interpretation Reference Range Facility Pulmonary Visit Reporton Pulmonary Visit Report [facility] Pulmonary Medicine [address] [place], [place] [address] OFFICE VISIT Date of Service: 08/04/25 MR#: [id number] Acct: [id number] Name: CHIDI MUSA Rep #: [id number] 1 : 1965 Provider: NATACHA Seay Age/Sex: 60/F Location: [facility] Status: Signed Assessment and Plan Assessment and Plan (1) AVE (obstructive sleep apnea): Status: Chronic Plan: Deteriorated. The patient is wondering if she would be appropriate for the inspire device. Unfortunately, I do not have a sleep study on and to know how severe her sleep apnea is. The sleep test that she previously had is over 2 years old anyway. I explained to the patient that PAP therapy is the gold standard to treat sleep apnea and the goal would be to have less than 5 events per hour. Treatment with the inspire device is considered successful with a 50% reduction in residual AHI, which depending on the severity of her sleep apnea, could leave her with an AHI greater than 5, even as high as 15 or 30. After discussing the risks and benefits the patient has agreed to reconsider PAP therapy. We will start with a split-night study to evaluate for the presence of obstructive sleep apnea and then get an appropriate recommended pressure support therapy with a comfortable mask. The patient is willing to try therapy and follow-up shortly here in the office to evaluate a compliance report and her symptoms. If the patient is unable to tolerate PAP therapy we will evaluate for the appropriateness of a referral to ENT for the inspire device. Follow-up in 6 to 8 weeks to evaluate response. She has been encouraged to contact the office with any new or worsening symptoms in the meantime. (2) MDD (major depressive disorder): Status: Chronic Qualifiers: Major depression recurrence: recurrent Active/Remission status: remission status unspecified Qualified Code(s): F33.9 - Major depressive disorder, recurrent, unspecified Comment: ON MED Plan: The patient admits to having major depressive disorder and understands that it is important to control obstructive sleep apnea to help reduce depression. Medication is managed by primary care and will continue to be moving forward. (3) Asthma: Status: Chronic Qualifiers: Asthma severity: moderate Asthma persistence: persistent Asthma complication type: uncomplicated Qualified Code(s): J45.40 - Moderate persistent asthma, uncomplicated Plan: Pulmonary function test from 2023 was normal, even though the patient has a significant smoking history she is not showing signs of COPD. She is stable on Advair and Flonase, which will be continued. Symptoms are not progressed, and she has remained smoke-free. No reason to repeat pulmonary function test at this time. No indication for antibiotics or prednisone. (4) Smoking greater than 20 pack years: Status: Chronic Comment: LDCT ordered for September 2025 Plan: Encourage ongoing smoking cessation. The last LDCT that we have on file is from September 2024. She is appropriate for repeat LDCT in 12 months, which will be September 2025. Ordered accordingly. (5) Anxiety: Status: Chronic Plan: Complicates exam, plan, care and prognosis. This may inhibit the patient's ability to tolerate PAP therapy. We will work with her to find a comfortable pressure and interface for the management of her obstructive sleep apnea. He will be my goal to try to find equipment that she can tolerate to control her sleep apnea through PAP therapy rather than the inspire device. However, if we are not able to find comfortable therapy with positive airway pressure I will refer the patient appropriately for either a dental appliance or the inspire device. Orders: Orders Split Night Sleep Study Today G47.33 - Obstructive sleep apnea (adult) (pediatric) Low Dose CT Lung Screening 09/30/25 F17.210 - Nicotine dependence, cigarettes, uncomplicated Plan Details Additional Comments: This note was generated with Tribe dictation software. It may contain incorrect words, spelling, and punctuation that were not noted in checking the note before signing. Portions of this documentation have been copied and pasted from previous office visit notes to provide a cohesive continuity of the history. The note has been reviewed, edited, and updated, as necessary. I have spent 41 minutes today reviewing labs, records and history. Time includes coordinating care, interpretation of tests. This also includes time I spent with the patient for exam, treatment plan and education as well as documenting clinical information. Follow Up: 6 Weeks HPI follow up Chief Complaint: high red blood cells HPI Comments Details: This patient presents to the office today to discuss high red and white blood cells. She is ambulatory and on room air. She has not recently been se (more content not included)... [facility] [facility] Telephone (IVAN) CHIDI MUSA ([id number]) 1965 F Date Time Provider Department 07/21/25 [facility] During your visit today, we recorded the following information about you: Palak Borjas LPN 07/21/2025 11:09 AM Signed Stated I just had shoulder surgery on 07/19/25 and I want to know if this will be a problem with laying on the table 07/29 for my LESI?Explained she should discuss having the LESI done, due to steroid use, with Surgeon to see if there should be a waiting period to have this done and why, to call us back and let us know his reply, stated ok. Allergies As of Date: 07/21/2025 (No Known Allergies) Date Reviewed: 05/20/2025 Reviewed by: Brynn Lisa MA - Fully Assessed Reason for Visit: LESI questions [Other] Prescriptions as of 07/21/2025 - pregablin (LYRICA) 200 mg capsule Take 1 capsule by mouth three times a day for 30 days. - diclofenac (VOLTAREN) 1 % topical gel Apply 2 g to affected area four times daily. - metoprolol succinate ER (TOPROL XL) 25 mg 24 hr tablet Take 2 tablets by mouth once daily. - MOUNJARO 2.5 mg/0.5 mL pen injector Inject 2.5 mg subcutaneously one time a week. PCP - amLODIPine (NORVASC) 5 mg tablet Take 1 tablet by mouth once daily. - methylPREDNISolone (MEDROL DOSE-PACK) 4 mg Dose-Pack A directed - ergocalciferol 50,000 unit capsule (VITAMIN D2, DRISDOL) Take 1 capsule by mouth one time a week. - losartan (COZAAR) 25 mg tablet Take 25 mg by mouth once daily. - Lzphu-5-CLK-EPA-Fish Oil (FISH OIL) 1,000 (120-180) mg cap Take 2 g by mouth once daily. Last dose 11/09 due to surgery - JANUMET 50-1,000 mg per tablet Take 1 tablet by mouth two times a day with meals. - ARIPiprazole (ABILIFY) 5 mg tablet Take 5 mg by mouth once daily. - cariprazine (VRAYLAR) 1.5 mg capsule Take 1.5 mg by mouth once daily. - JARDIANCE 10 mg tablet Take 10 mg by mouth once daily. - fluconazole (DIFLUCAN) 100 mg tablet Take 100 mg by mouth as needed (yeast infections). - fluticasone (FLONASE) 50 mcg/actuation nasal spray Use 2 Sprays in each nostril once daily. - hydrOXYzine HCl (ATARAX) 25 mg tablet Take 25 mg by mouth once daily. - lidocaine (LIDODERM) 5 % Apply 1 Patch as directed every 12 hours. ARMS - aspirin 81 mg cap Take 81 mg by mouth once daily. Dr. Quintana manages. No instructions given - albuterol HFA (PROVENTIL HFA, VENTOLIN HFA) 90 mcg/actuation inhaler Inhale 1-2 Puffs as instructed every 6 hours as needed for wheezing/shortness of breath. - atorvastatin (LIPITOR) 40 mg tablet Take 40 mg by mouth once daily. - clopidogrel (PLAVIX) 75 mg tablet Take 75 mg by mouth once daily. Dr. Quintana manages - fluticasone-salmetero l (ADVAIR, WIXELA) 250-50 mcg/dose inhaler Inhale 1 Inhalation as instructed two times a day. - pantoprazole DR (PROTONIX) 40 mg tablet Take 40 mg by mouth every afternoon. Problem List As Of Date 07/21/2025 Noted Resolved Cervical spondylosis with myelopathy [M47.12] 09/28/2024 Chronic right shoulder pain [M25.511, G89.29] 11/10/2024 Long-term current use of opiate analgesic [Z79.*11/10/2024 Lumbosacral spondylosis without myelopathy [M47*11/10/2024 Preop testing [Z01.818] 11/26/2024 Cervical myelopathy (HCC) [G95.9] 11/30/2024 CAD (coronary artery disease) [I25.10] 11/30/2024 Sleep apnea [G47.30] 11/30/2024 History of coronary artery bypass graft [Z95.1] 11/30/2024 Stented coronary artery [Z95.5] 11/30/2024 HTN (hypertension) [I10] 11/30/2024 Diabetes mellitus, type 2 (HCC) [E11.9] 11/30/2024 Arthritis [M19.90] 11/30/2024 History of psychiatric care [Z92.89] 11/30/2024 Obesity, Class I, BMI 30-34.9 [E66.811] 11/30/2024 Other specified postprocedural states [Z98.890] 12/08/2024 S/P cervical spinal fusion [Z98.1] 12/08/2024 Lumbosacral spondylosis with radiculopathy [M47*05/20/2025 Encounter Status:Closed by PALAK BORJAS on 07/21/25 [facility] Bedside Glucoseon 07-19-2025 FINGERSTICK GLU 127 mg/dL High 74-106 [facility] Comment on above: Result Comment: KASSANDRA KENT OF PATIENT CARE PER NURSING PROTOCOL Performed By: #### L 501.080 #### [facility] [address] [place], [address] CNCOon 07-19-2025 CNCO Letter Text [facility] Glucose measurement at bedsi deOrdered By: Moiz Rodriguez on 07-19-2025 Glucose [Mass/Vol] 127 mg/dL High 74-106 [facility] Comment on above: MANAGEMENT OF PATIEN T CARE PER NURSING PROTOCOL MR/POSTOP.ANEon 07-19-2025 MR/POSTOP.[facility] Medical Records Department [address] [facility] [place] [address] Anesthesia Postop Eval I 07/19/25 1334 MR#: [id number] Acct: [id number] Name: CHIDI MUSA Rep #: [id number] : 1965 60 From: Kaleb Cervantes CRNA PCP: Josephine Walter NP-C Status:REG SDC Y Race: C Location: [address] Anesthesia: Postop Eval I Current Vital Signs Temperature: 97 F Pulse Rate: 78 Blood Pressure: 151/68 Respiratory Rate: 18 Pulse Ox: 95 Assessment Airway patent: Yes Spontaneous unlabored respirations: Yes nausea: No Vomiting: No Anesthesia Complication: No Fluid Hydration Crystalloid volume administer (ml): 1,000 Total IV fluid infused: 1,000 Progress Note Anesthesia document: Postop Eval 1 completed: Yes 07/19/25 1337 Date Kaleb Blojailyn RESEARCH INTERN Cosigner Signature: Date CC: Signed Normal [facility] MR/[id number] 07-19-2025 [facility] Medical Records Department [address] [place] [address] Anesthesia Postop Eval II 07/19/25 1406 MR#: [id number] Acct: [id number] Name: CHIDI MUSA Rep #: [id number] : 1965 60 From: Uriel Meek MD PCP: NATACHA Loyola Status[place] [facility] [place] Race: C Location: [place] [address] Anesthesia Postop Eval I Sum Postop Eval Completion status Anesthesia document: Postop Eval 1 completed: Yes Anesthesia Postop Eval I Summary Anesthesia Postop Eval I Summary: Anesthesia Postop Eval I: Assessment Summary Airway patent Yes 07/19/25 13:37 RESEARCH [email or web address].[email or web address] Spontaneous unlabored Yes 07/19/25 13:37 RESEARCH INTERN.JBLOU respirations Mental status nausea No 07/19/25 13:37 RESEARCH INTERN.JBLOU Vomiting No 07/19/25 13:37 RESEARCH INTERN.JBLOU Anesthesia Postop Eval I: Fluid Summary Crystalloid volume administer 1,000 07/19/25 13:37 RESEARCH INTERN.JBLOU (ml) Colloids volume administered ( ml) Blood Product volume administered (ml) Total IV fluid infused 1,000 07/19/25 13:37 RESEARCH INTERN.JBLOU Anesthesia Postop Eval I: Summary Notes Anesthesia Complication No 07/19/25 13:37 RESEARCH INTERN.JBLOU Anesthesia Complication Comment: Post-operative progress note Anesthesia: Postop Eval II Evaluation Mental status: Awake Pain Level: 1 nausea: No Vomiting: No 07/19/25 1406 Date Uriel Bojorquez Signature: Date CC: Signed Normal [facility] Operative Reporton 5 Operative Report [facility] Medical Records Department [address] [place] [address] Operative Report 07/19/25 1318 MR#: [id number] Acct: [id number] Name: CHIDI MUSA Rep #: [id number] : 1965 60 From: Moiz Rodriguez DO PCP: NATACHA Loyola [facility] Location: [place] [address] Operative Report (Standard) Operative Information Date of Procedure: 07/19/25 Pre-Operative Diagnosis: 1. Right shoulder rotator cuff tear 2. Right shoulder adhesive capsulitis 3. Right shoulder superior labral tear anterior posterior Post-Operative Diagnosis: 1. Right shoulder rotator cuff tear 2. Right shoulder adhesive capsulitis 3. Right shoulder superior labral tear anterior posterior 4. Right shoulder long head of biceps tendinopathy Surgery/Procedure Performed: 1. Right shoulder arthroscopic rotator cuff repair 2. Right shoulder arthroscopic capsular release with manipulation under anesthesia 3. Right shoulder mini open subpectoral biceps tenodesis hvac r instructor: Yes Die Repair Machinist: Shefali Skinner Tasks completed by clinical education assistant: Opening closing, Implanting device and Retracting Type of Anesthesia: General/Regional RN Documented Start/Stop Times: Operation Date: 07/19/25 12:30 Case Time Into Pre-Op 07/19/25 10:08 Anesthesia Start 07/19/25 12:01 Into Room 07/19/25 12:01 Procedure Start 07/19/25 12:26 Procedure Start Time: 12:26 Procedure Stop Time: 13:27 Select all DRAINS/GRAFTS/IMPLANT S that apply: Implanted device Implanted device details: Arthrex metallic biceps button, Arthrex 4.75 mm self punching bio composite swivel lock anchor Estimated Blood Loss: 5 cc Specimen collected: No Description of surgery: Patient was identified in preoperative holding area by name, medical record number, and date of . The operative extremity was marked. All questions were answered to the patient's satisfaction. An interscalene block was administered by anesthesia prior to the procedure. Patient was then brought to the operative suite at time of his procedure. She was positioned supine a sterile operating table. General anesthesia was induced and LMA was placed. Patient was then placed in lateral decubitus position with the right side up. A beanbag was used to hold the patient in the lateral decubitus position. An axillary roll was placed. Pillows were placed beneath and between his legs to for any bony prominences. We prepped and draped the right upper extremity in normal, sterile orthopedic fashion. The operative extremity was placed in traction utilizing arthroscopic bedroom with 15 pounds of tension applied to the operative extremity throughout the arthroscopic portion of the case. We performed a timeout with all parties in attendance in agreement with the side, site, and operation be performed. No concerns were voiced and we elected to proceed with surgery. 2 g Ancef was administered IV prior to incision by anesthesia staff. I first established a standard posterior portal 2 fingerbreadths inferior medial to the posterior lateral border of the scapular spine. Blunt tipped trocar and arthroscopic cannula was introduced into the glenohumeral joint. Joint was inflated with normal saline with epinephrine. Arthroscope was then introduced. Diagnostic arthroscopy was commenced. Upon entering the joint, I was unable to distend the joint at all to safely visualize the glenohumeral joint and made decision to remove arthroscopic instruments and perform a manipulation under anesthesia. Free manipulation range of motion was flexion to 90 degrees, external rotation 0 degrees. Multiple adhesions were then released with gradual overhead forward flexion and external rotation. There was full flexion to 160 degrees and external rotation to 40 degrees after completion of manipulation under anesthesia. I then reentered the shoulder in the posterior portal with the arthroscope and was able to do much better visualize the joint and joint suction was appropriate at this time. There was diffuse synovitis noted and some bleeding from our manipulation. This was cauterized. Capsular release was then performed through an anterior interval portal in the rotator interval carefully dissecting the interval. I released the anterior labrum from the capsule with the cautery. I then placed the arthroscope in the anterior portal and released the posterior capsule from the labrum with the cautery in standard fashion. The inferior capsule was visualized and appeared to be released with the manipulation. Glenohumeral cartilage was pristine. Superior labral tearing was noted with unstable biceps anchor. Tenotomy was performed at the biceps labral junction and the biceps tendon was allowed to retract into its groove. 60% articular sided tearing of the supraspinatus was noted and articular side was debrided with the shaver. Subscapularis was (more content not included)... Normal [facility] Medical Records Department [address] [place] [address] PAT - Anesthesia 07/15/25 1121 MR#: [id number] Acct: [id number] Name: CHIDI MUSA Rep #: [id number] : 1965 60 From: Wallace Wilson MD PCP: NATACHA Loyola Status[place]PRE [facility] [place] Race: C [place] [facility] Pre-Assessment Diagnosis/Proposed Procedure Planned Operative Procedure(s): RIGHT SHOULDER ARTHROSCOPY RTC REPAIR Anesthesia History Anesthesia History - telecom analyst: Anesthesia History - telecom analyst Hx Hospitalization No 07/15/25 09:28 Any Problems With Anesthesia No 07/15/25 09:28 Cholinesterase deficiency No 07/15/25 09:28 You/Your Family Experience No 07/15/25 09:28 fever (hyperthermia) with Relationship Recent Exposure to Contagious Disease Does patient have nerve No 07/15/25 09:28 stimulator Patient instructed to have device shut off --Does patient have Pacemaker or ICD? When Was Last Pacemaker Check QUESTION #4 FULL TEXT: You/Your Family Experience fever (hyperthermia) with Anesthesia Last Oral Intake Last Oral intake: Last Oral Intake NPO since Meds taken in AM with sips of water? Meds patient instructed to take am of surgery PONV PONV - telecom analyst: PONV - telecom analyst Female Yes 07/15/25 09:28 HX of Motion Sickness No 07/15/25 09:28 HX of N/V After Surgery No 07/15/25 09:28 Non-Smoker Yes 07/15/25 09:28 Duration of Surgery greater Yes 07/15/25 09:28 than 60 minutes Number of Risk Factors 3 07/15/25 09:28 PONV Score Moderate Risk 07/15/25 09:28 Height Weight Height Weight: Anesthesia: Height Weight Height 5 ft 2 in 04/01/25 10:56 Respiratory Assessment Respiratory Assessment - telecom analyst: Respiratory Tract Infection Hx - telecom analyst Hx Respiratory Tract Infection No 07/15/25 09:28 STOP Sleep Apnea STOP Sleep Apnea - telecom analyst: STOP Sleep Apnea - telecom analyst Hx Hypertension Yes: CONTROLLED WITH MED 07/15/25 09:28 Hx Sleep Apnea Yes 07/15/25 09:28 CPAP Yes: NONCOMPLIANT 07/15/25 09:28 BIPAP No 07/15/25 09:28 Do you snore loudly (louder than talking or can be heard Do you often feel tired/ fatigued/ sleepy during daytime? Has anyone observed you stop breathing during sleep? STOP Results Positive 07/15/25 09:28 QUESTION #5 FULL TEXT : Do you snore loudly (louder than talking or can be heard through closed doors)? Tobacco Use History Tobacco Use History - telecom analyst: Tobacco Use History - telecom analyst Tobacco Use Smoking Status Former smoker 07/15/25 09:28 Hx Tobacco Use No 07/15/25 09:28 Years Smoking Packs Smoked per Day Smoking Cessation Date was Yes - quit smoking within 15 07/15/25 09:28 within the last 15 years years Hx Smoking Cessation Date 09/30/23 07/15/25 09:28 Hx Smoking Cessation No 07/15/25 09:28 Counseling Hematologic Medial History Hematologic Hx - telecom analyst: Hematologic Medical Hx - supervisor conditioning yard Hx of Blood Transfusion No 07/15/25 09:28 Hx of Transfusion in last 3 No 07/15/25 09:28 Months Date of Last Transfusion (if within last 3 months) Ever experience any problems No 07/15/25 09:28 with transfusion(s)? Specify any problems Hx of Preganancy in last 3 No 07/15/25 09:28 Months Nurse Filling Out Transfusion DSCHRIBER 07/15/25 09:28 Questions: Date: 07/15/25 07/15/25 09:28 Time: 07/15/25 09:28 Patient unable to answer at this time (ie. confused, unrespo /Reproductio n History /Reproductiv e History - telecom analyst: /Reproductiv e Hx- telecom analyst Hx Now No 07/15/25 09:28 Gestational Age (in weeks): EDC: Hx Hx Para Hx Section SAB No 07/15/25 09:28 [facility] Medical History (Updated 07/15/25 @ 09:46 by Darlene Bauer) Wears glasses Post-menopausal Marijuana use Alcohol use Ambulates with cane Arthritis Blood disorder Restless legs Injury of back Injury of head and neck Syncope Dietary restriction Gastric reflux Former smoker CPAP (continuous positive airway pressure) dependence Chronic cough Hypertension Leg cramps History of pain when walking History of normal Holter exam History of echocardiogram History of stress test Cardiology follow-up encounter Ventral hernia Coronary artery disease CALVIN (generalized anxiety disorder) MDD (major depressive disorder) Lumbar foraminal stenosis Hyperlipidemia Peripheral neuropathy Type 2 diabetes mellitus COPD (chronic obstructive pulmonary disease) Atherosclerosis of [place] arteries of extremities with rest pain, left leg Aorto (more content not included)... Normal [facility] .Auto Diffon 06-11-2025 Basophil, Absolute 0.1 10 3/mcL Normal 0.0-0.3 [facility] Comment on above: Performed By: #### T SH, GFR, CMP, A1C, ANEU, VIDH, CBC, LIPID, FT4, ADIFF #### [place] [address] [place], [place] [address] Basophils/100 WBC (Bld) 1.1 % Normal 0.0-2.5 [facility] Comment on above: Performed By: #### T SH, GFR, CMP, A1C, ANEU, VIDH, CBC, LIPID, FT4, ADIFF #### [place] [address] [place], [place] [address] Eosinophil, Absolute 0.1 10 3/mcL Normal 0.0-0.7 [facility] Comment on above: Performed By: #### T SH, GFR, CMP, A1C, ANEU, VIDH, CBC, LIPID, FT4, ADIFF #### [address] [address] Eosinophils/100 WBC (Bld) 1.3 % Normal 0.0-6.0 [facility] Comment on above: Performed By: #### T SH, GFR, CMP, A1C, ANEU, VIDH, CBC, LIPID, FT4, ADIFF #### [address] [address] Lymphocyte, Absolute 2.8 10 3/mcL Normal 0.9-4.3 [facility] Comment on above: Performed By: #### T SH, GFR, CMP, A1C, ANEU, VIDH, CBC, LIPID, FT4, ADIFF #### [address] [address] Lymphocytes/100 WBC (Bld) 26.5 % Normal 20.0-40.0 [facility] Comment on above: Performed By: #### T SH, GFR, CMP, A1C, ANEU, VIDH, CBC, LIPID, FT4, ADIFF #### [address] [address] Monocyte, Absolute 0.8 10 3/mcL Normal 0.1-1.4 [facility] Comment on above: Performed By: #### T SH, GFR, CMP, A1C, ANEU, VIDH, CBC, LIPID, FT4, ADIFF #### [address] [address] Monocytes/100 WBC (Bld) 7.6 % Normal 2.0-13.0 [facility] Comment on above: Performed By: #### T SH, GFR, CMP, A1C, ANEU, VIDH, CBC, LIPID, FT4, ADIFF #### [address] [address] Neutrophils/100 WBC (Bld) 63.5 % Normal 50.0-75.0 [facility] Comment on above: Performed By: #### T SH, GFR, CMP, A1C, ANEU, VIDH, CBC, LIPID, FT4, ADIFF #### [address] [address] .NEUABSon 06-11-2025 Neutrophil, Absolute 6.7 10 3/mcL Normal 2.3-8.1 [facility] Comment on above: Performed By: #### T SH, GFR, CMP, A1C, ANEU, VIDH, CBC, LIPID, FT4, ADIFF #### [place] [id number] CBCon 06-11-2025 Erythrocyte distribution width (RBC) [Ratio] 13.8 % Normal 11.5-15.5 [facility] Comment on above: Performed By: #### T SH, GFR, CMP, A1C, ANEU, VIDH, CBC, LIPID, FT4, ADIFF #### [place] [address] Hematocrit (Bld) [Volume fraction] 47.9 % High 34.0-46.0 [facility] Comment on above: Performed By: #### T SH, GFR, CMP, A1C, ANEU, VIDH, CBC, LIPID, FT4, ADIFF #### [place] [address] Hgb 16.3 G/dL High 12.0-16.0 [facility] Comment on above: Performed By: #### T SH, GFR, CMP, A1C, ANEU, VIDH, CBC, LIPID, FT4, ADIFF #### [place] [address] MCH (RBC) [Entitic mass] 31.1 pg Normal 27.0-33.0 [facility] Comment on above: Performed By: #### T SH, GFR, CMP, A1C, ANEU, VIDH, CBC, LIPID, FT4, ADIFF #### [place] [address] MCHC 34.1 G/dL Normal 32.0-36.0 [facility] Comment on above: Performed By: #### T SH, GFR, CMP, A1C, ANEU, VIDH, CBC, LIPID, FT4, ADIFF #### [address] [address] MCV (RBC) [Entitic vol] 91.1 fL Normal 80.0-99.0 [facility] Comment on above: Performed By: #### T SH, GFR, CMP, A1C, ANEU, VIDH, CBC, LIPID, FT4, ADIFF #### [address] [address] Platelet 186 10 3/mcL Normal 150-450 [facility] Comment on above: Performed By: #### T SH, GFR, CMP, A1C, ANEU, VIDH, CBC, LIPID, FT4, ADIFF #### [place] [id number] Platelet mean volume (Bld) [Entitic vol] 8.8 fL Normal 6.6-10.5 [facility] Comment on above: Performed By: #### T SH, GFR, CMP, A1C, ANEU, VIDH, CBC, LIPID, FT4, ADIFF #### [place] [id number] RBC 5.25 10 6/mcL Normal 4.10-5.30 [facility] Comment on above: Performed By: #### T SH, GFR, CMP, A1C, ANEU, VIDH, CBC, LIPID, FT4, ADIFF #### [address] [address] WBC 10.6 10 3/mcL Normal 4.5-10.8 [facility] Comment on above: Performed By: #### T SH, GFR, CMP, A1C, ANEU, VIDH, CBC, LIPID, FT4, ADIFF #### [address] [address] LABORATORYOrdered By: SYSTEM SYSTEM on 06-11-2025 Basophils (Bld) [#/Vol] 0.1 103/mcL Normal 0.0 - 0.3 10^3/mcL AO Workflow SS Basophils/100 WBC (Bld) 1.1 % Normal 0.0 - 2.5 % AO Workflow SS Eosinophil, Absolute 0.1 103/mcL Normal 0.0 - 0 .7 10^3/mcL AO Workflow SS Eosinophils/100 WBC (Bld) 1.3 % Normal 0.0 - 6.0 % AO Workflow SS Erythrocyte distribution width (RBC) [Ratio] 13.8 % Normal 11.5 - 15.5 % AO Workflow SS Hematocrit (Bld) [Volume fraction] 47.9 % High 34.0 - 46.0 % AO Workflow SS Hemoglobin (Bld) [Mass/Vol] 16.3 G/dL High 12.0 - 16.0 G/dL AO Workflow SS Lymphocytes (Bld) [#/Vol] 2.8 103/mcL Normal 0.9 - 4.3 10^3/mcL AO Workflow SS Lymphocytes/100 WBC (Bld) 26.5 % Normal 20.0 - 40.0 % AO Workflow SS MCH (RBC) [Entitic mass] 31.1 pg Normal 27.0 - 33.0 pg AO Workflow SS MCHC 34.1 G/dL Normal 32.0 - 36.0 G/dL AO Workflow SS MCV (RBC) [Entitic vol] 91.1 fL Normal 80.0 - 99.0 fL AO Workflow SS Monocytes (Bld) [#/Vol] 0.8 103/mcL Normal 0.1 - 1.4 10^3/mcL AO Workflow SS Monocytes/100 WBC (Bld) 7.6 % Normal 2.0 - 13.0 % AO Workflow SS Neutrophils (Bld) [#/Vol] 6.7 103/mcL Normal 2.3 - 8.1 10^3/mcL AO Workflow SS Neutrophils/100 WBC (Bld) 63.5 % Normal 50.0 - 75.0 % AO Workflow SS Platelet mean volume (Bld) [Entitic vol] 8.8 fL Normal 6.6 - 10.5 fL AO Workflow SS Platelets (Bld) [#/Vol] 186 103/mcL Normal 150 - 450 10^3/mcL AO Workflow SS RBC (Bld) [#/Vol] 5.25 106/mcL Normal 4.10 - 5.3 0 10^6/mcL AO Workflow SS WBC (Bld) [#/Vol] 10.6 103/mcL Normal 4.5 - 10.8 10^3/mcL AO Workflow SS MR Lumbar spine WO contrasto n 06-11-2025 IMPRESSION: Lumbar spondylosis as described most notable at L3-4 where there is asymmetric left-sided subarticular zone and neural foraminal narrowing. There is also moderate bilateral neural foraminal narrowing at L4-5. No severe spinal canal stenosis. Anatomic Lumbar Variant: None. L4-5 is considered the level of the iliac crest and assume there are 5 lumbar-type vertebrae. 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: PILLO Transcribe Date/Time: Jun 11 2025 8:56A Dictated by : ROMEO KIM MD This examination was interpreted and the report reviewed and electronically signed by: ROMEO KIM MD on Jun 11 2025 3:11PM [facility] DIVISION OF RADIOLOGY * * *Final Report* * * DATE OF EXAM: Jun 11 2025 7:35AM [facility]M 0303 - MRI LUMBAR SPINE WO IVCON / PROCEDURE REASON: Spondylolisthesis of lumbar region * * * * Physician Interpretation * * * * EXAMINATION: MRI LUMBAR SPINE WO IVCON CLINICAL HISTORY: Spondylolisthesis of lumbar region TECHNIQUE: Routine lumbosacral spine MR protocol without gadolinium. MQ: [id number] COMPARISON: CT 08/23/2024 RESULT: Counting reference: Lumbosacral junction. For the purposes of this report, L4-5 is considered the level of the iliac crest and assume there are 5 lumbar-type vertebrae. Anatomic variant: None. Localizer images: No additional findings. Alignment: Alignment is anatomic. Bone marrow signal/fracture: No evidence of pathologic marrow infiltration. No evidence of prior fracture. Conus: The conus is within normal limits of signal intensity and morphology. Paraspinal soft tissues: Paraspinal soft tissues are within normal limits. Lower thoracic spine: Visualized lower thoracic canal and foramina are patent. L1-L2: Disc bulging. Mild narrowing of the spinal canal. Foramina are patent. L2-L3: Minimal disc bulging and facet hypertrophy. Mild narrowing of the spinal canal and neural foramina. L3-L4: Disc bulging, eccentric to the left with osteophytes, and facet hypertrophy. Moderate left and mild right neural foraminal narrowing. Mild spinal canal narrowing with significant left-sided subarticular zone encroachment. L4-L5: Left greater than right facet hypertrophy. Moderate bilateral neural foraminal stenosis. Mild narrowing of the spinal canal. L5-S1: Canal and foramina are patent Sacrum and iliac wings: The visualized sacrum and iliac wings are within normal limits. DIVISION OF RADIOLOGY Provider, [facility] - 06/11/2025 * * *Final Report* * * DATE OF EXAM: Jun 11 2025 7:35AM [facility]M 0303 - MRI LUMBAR SPINE WO IVCON / PROCEDURE REASON: Spondylolisthesis of lumbar region * * * * Physician Interpretation * * * * EXAMINATION: MRI LUMBAR SPINE WO IVCON CLINICAL HISTORY: Spondylolisthesis of lumbar region TECHNIQUE: Routine lumbosacral spine MR protocol without gadolinium. MQ: [id number] COMPARISON: CT 08/23/2024 RESULT: Counting reference: Lumbosacral junction. For the purposes of this report, L4-5 is considered the level of the iliac crest and assume there are 5 lumbar-type vertebrae. Anatomic variant: None. Localizer images: No additional findings. Alignment: Alignment is anatomic. Bone marrow signal/fracture: No evidence of pathologic marrow infiltration. No evidence of prior fracture. Conus: The conus is within normal limits of signal intensity and morphology. Paraspinal soft tissues: Paraspinal soft tissues are within normal limits. Lower thoracic spine: Visualized lower thoracic canal and foramina are patent. L1-L2: Disc bulging. Mild narrowing of the spinal canal. Foramina are patent. L2-L3: Minimal disc bulging and facet hypertrophy. Mild narrowing of the spinal canal and neural foramina. L3-L4: Disc bulging, eccentric to the left with osteophytes, and facet hypertrophy. Moderate left and mild right neural foraminal narrowing. Mild spinal canal narrowing with significant left-sided subarticular zone encroachment. L4-L5: Left greater than right facet hypertrophy. Moderate bilateral neural foraminal stenosis. Mild narrowing of the spinal canal. L5-S1: Canal and foramina are patent Sacrum and iliac wings: The visualized sacrum and iliac wings are within normal limits. IMPRESSION IMPRESSION: Lumbar spondylosis as described most notable at L3-4 where there is asymmetric left-sided subarticular zone and neural foraminal narrowing. There is also moderate bilateral neural foraminal narrowing at L4-5. No severe spinal canal stenosis. Anatomic Lumbar Variant: None. L4-5 is considered the level of the iliac crest and assume there are 5 lumbar-type vertebrae. 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: PILLO Transcribe Date/Time: Jun 11 2025 8:56A Dictated by : ROMEO KIM MD This examination was interpreted and the report reviewed and electronically signed by: ROMEO KIM MD on Jun 11 2025 3:11PM EST [facility] Radiology Study observation (narrative) [facility] MR Lumbar spine WO contrastO rdered By: [facility] Provider on 06-11-2025 [facility] MRI LUMBAR SPINE WO IVCONon 06-11-2025 MRI LUMBAR SPINE WO IVCON * * *Final Report* * * DATE OF EXAM: Jun 11 2025 7:35AM [facility]M 0303 - MRI LUMBAR SPINE WO IVCON / PROCEDURE REASON: Spondylolisthesis of lumbar region * * * * Physician Interpretation * * * * EXAMINATION: MRI LUMBAR SPINE WO IVCON CLINICAL HISTORY: Spondylolisthesis of lumbar region TECHNIQUE: Routine lumbosacral spine MR protocol without gadolinium. MQ: [id number] COMPARISON: CT 08/23/2024 RESULT: Counting reference: Lumbosacral junction. For the purposes of this report, L4-5 is considered the level of the iliac crest and assume there are 5 lumbar-type vertebrae. Anatomic variant: None. Localizer images: No additional findings. Alignment: Alignment is anatomic. Bone marrow signal/fracture: No evidence of pathologic marrow infiltration. No evidence of prior fracture. Conus: The conus is within normal limits of signal intensity and morphology. Paraspinal soft tissues: Paraspinal soft tissues are within normal limits. Lower thoracic spine: Visualized lower thoracic canal and foramina are patent. L1-L2: Disc bulging. Mild narrowing of the spinal canal. Foramina are patent. L2-L3: Minimal disc bulging and facet hypertrophy. Mild narrowing of the spinal canal and neural foramina. L3-L4: Disc bulging, eccentric to the left with osteophytes, and facet hypertrophy. Moderate left and mild right neural foraminal narrowing. Mild spinal canal narrowing with significant left-sided subarticular zone encroachment. L4-L5: Left greater than right facet hypertrophy. Moderate bilateral neural foraminal stenosis. Mild narrowing of the spinal canal. L5-S1: Canal and foramina are patent Sacrum and iliac wings: The visualized sacrum and iliac wings are within normal limits. IMPRESSION: Lumbar spondylosis as described most notable at L3-4 where there is asymmetric left-sided subarticular zone and neural foraminal narrowing. There is also moderate bilateral neural foraminal narrowing at L4-5. No severe spinal canal stenosis. Anatomic Lumbar Variant: None. L4-5 is considered the level of the iliac crest and assume there are 5 lumbar-type vertebrae. 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: PILLO Transcribe Date/Time: Jun 11 2025 8:56A Dictated by : ROMEO KIM MD This examination was interpreted and the report reviewed and electronically signed by: ROMEO KIM MD on Jun 11 2025 3:11PM EST [id number] N [facility] (PAIVisualant) CHIDI MUSA ([id number]) 1965 F Date Time Provider Department 06/10/25 [facility] During your visit today, we recorded the following information about you: Dinora Galloway 06/10/2025 7:58 AM Signed Diabetic clearance is in scanned documents. Dinora Galloway June 10, 2025 7:58 AM Allergies As of Date: 06/10/2025 (No Known Allergies) Date Reviewed: 05/20/2025 Reviewed by: Brynn Lisa MA - Fully Assessed Reason for Visit: Diabetic Clearance Received [Other] Prescriptions as of 06/10/2025 - diclofenac (VOLTAREN) 1 % topical gel Apply 2 g to affected area four times daily. - naproxen (NAPROSYN) 500 mg tablet Take 1 tablet by mouth two times a day as needed (for Pain. Take with food.). FOR PAIN. TAKE WITH FOOD. - metoprolol succinate ER (TOPROL XL) 25 mg 24 hr tablet Take 2 tablets by mouth once daily. - MOUNJARO 2.5 mg/0.5 mL pen injector Inject 2.5 mg subcutaneously one time a week. PCP - pregabalin (LYRICA) 200 mg capsule Take 1 capsule by mouth three times a day for 30 days. - tiZANidine (ZANAFLEX) 4 mg tablet Take 1 tablet by mouth two times a day as needed. - amLODIPine (NORVASC) 5 mg tablet Take 1 tablet by mouth once daily. - methylPREDNISolone (MEDROL DOSE-PACK) 4 mg Dose-Pack A directed - ergocalciferol 50,000 unit capsule (VITAMIN D2, DRISDOL) Take 1 capsule by mouth one time a week. - losartan (COZAAR) 25 mg tablet Take 25 mg by mouth once daily. - Kwcxc-9-YKX-EPA-Fish Oil (FISH OIL) 1,000 (120-180) mg cap Take 2 g by mouth once daily. Last dose 11/09 due to surgery - JANUMET 50-1,000 mg per tablet Take 1 tablet by mouth two times a day with meals. - ARIPiprazole (ABILIFY) 5 mg tablet Take 5 mg by mouth once daily. - cariprazine (VRAYLAR) 1.5 mg capsule Take 1.5 mg by mouth once daily. - JARDIANCE 10 mg tablet Take 10 mg by mouth once daily. - fluconazole (DIFLUCAN) 100 mg tablet Take 100 mg by mouth as needed (yeast infections). - fluticasone (FLONASE) 50 mcg/actuation nasal spray Use 2 Sprays in each nostril once daily. - hydrOXYzine HCl (ATARAX) 25 mg tablet Take 25 mg by mouth once daily. - lidocaine (LIDODERM) 5 % Apply 1 Patch as directed every 12 hours. ARMS - aspirin 81 mg cap Take 81 mg by mouth once daily. Dr. Quintana manages. No instructions given - albuterol HFA (PROVENTIL HFA, VENTOLIN HFA) 90 mcg/actuation inhaler Inhale 1-2 Puffs as instructed every 6 hours as needed for wheezing/shortness of breath. - atorvastatin (LIPITOR) 40 mg tablet Take 40 mg by mouth once daily. - clopidogrel (PLAVIX) 75 mg tablet Take 75 mg by mouth once daily. Dr. Quintana manages - fluticasone-salmetero l (ADVAIR, WIXELA) 250-50 mcg/dose inhaler Inhale 1 Inhalation as instructed two times a day. - pantoprazole DR (PROTONIX) 40 mg tablet Take 40 mg by mouth every afternoon. Problem List As Of Date 06/10/2025 Noted Resolved Cervical spondylosis with myelopathy [M47.12] 09/28/2024 Chronic right shoulder pain [M25.511, G89.29] 11/10/2024 Long-term current use of opiate analgesic [Z79.*11/10/2024 Lumbosacral spondylosis without myelopathy [M47*11/10/2024 Preop testing [Z01.818] 11/26/2024 Cervical myelopathy (HCC) [G95.9] 11/30/2024 CAD (coronary artery disease) [I25.10] 11/30/2024 Sleep apnea [G47.30] 11/30/2024 History of coronary artery bypass graft [Z95.1] 11/30/2024 Stented coronary artery [Z95.5] 11/30/2024 HTN (hypertension) [I10] 11/30/2024 Diabetes mellitus, type 2 (HCC) [E11.9] 11/30/2024 Arthritis [M19.90] 11/30/2024 History of psychiatric care [Z92.89] 11/30/2024 Obesity, Class I, BMI 30-34.9 [E66.811] 11/30/2024 Other specified postprocedural states [Z98.890] 12/08/2024 S/P cervical spinal fusion [Z98.1] 12/08/2024 Lumbosacral spondylosis with radiculopathy [M47*05/20/2025 Encounter Status:Closed by DINORA GALLOWAY on 06/10/25 [facility] EUGENIEN Telephone (IVAN) CHIDI MUSA ([id number]) 1965 F Date Time Provider Department 06/10/25 KOBI GARSIA During your visit today, we recorded the following information about you: Jina Ramirez MA 06/10/2025 3:19 PM Signed Patient left message on Rx refill line stating she would like a increase in her pregabalin . The current dose is like eating candy and does nothing for her. Would like a call from the office . Jina Ramirez MA June 10, 2025 3:18 PM Kobi Garsia PA-C 06/10/2025 5:22 PM Signed She is on a reasonable dose of Lyrica. I will not increase the dose because the medication was last filled on 04/05/2025 which indicates she is taking the less medication than prescribed. [place] remind her the Lyrica can be taken three times a day Phillip Haji RN 06/11/2025 8:59 AM Signed Attempted to call pt, phone message states subscriber not in service, unable to leave a message Phillip Haji RN June 11, 2025 8:59 AM Allergies As of Date: 06/10/2025 (No Known Allergies) Date Reviewed: 05/20/2025 Reviewed by: Brynn Lisa MA - Fully Assessed Reason for Visit: Medication Problem [65] Prescriptions as of 06/11/2025 - diclofenac (VOLTAREN) 1 % topical gel Apply 2 g to affected area four times daily. - naproxen (NAPROSYN) 500 mg tablet Take 1 tablet by mouth two times a day as needed (for Pain. Take with food.). FOR PAIN. TAKE WITH FOOD. - metoprolol succinate ER (TOPROL XL) 25 mg 24 hr tablet Take 2 tablets by mouth once daily. - MOUNJARO 2.5 mg/0.5 mL pen injector Inject 2.5 mg subcutaneously one time a week. PCP - pregabalin (LYRICA) 200 mg capsule Take 1 capsule by mouth three times a day for 30 days. - tiZANidine (ZANAFLEX) 4 mg tablet Take 1 tablet by mouth two times a day as needed. - amLODIPine (NORVASC) 5 mg tablet Take 1 tablet by mouth once daily. - methylPREDNISolone (MEDROL DOSE-PACK) 4 mg Dose-Pack A directed - ergocalciferol 50,000 unit capsule (VITAMIN D2, DRISDOL) Take 1 capsule by mouth one time a week. - losartan (COZAAR) 25 mg tablet Take 25 mg by mouth once daily. - Jxltt-1-WCG-EPA-Fish Oil (FISH OIL) 1,000 (120-180) mg cap Take 2 g by mouth once daily. Last dose 11/09 due to surgery - JANUMET 50-1,000 mg per tablet Take 1 tablet by mouth two times a day with meals. - ARIPiprazole (ABILIFY) 5 mg tablet Take 5 mg by mouth once daily. - cariprazine (VRAYLAR) 1.5 mg capsule Take 1.5 mg by mouth once daily. - JARDIANCE 10 mg tablet Take 10 mg by mouth once daily. - fluconazole (DIFLUCAN) 100 mg tablet Take 100 mg by mouth as needed (yeast infections). - fluticasone (FLONASE) 50 mcg/actuation nasal spray Use 2 Sprays in each nostril once daily. - hydrOXYzine HCl (ATARAX) 25 mg tablet Take 25 mg by mouth once daily. - lidocaine (LIDODERM) 5 % Apply 1 Patch as directed every 12 hours. ARMS - aspirin 81 mg cap Take 81 mg by mouth once daily. Dr. Quintana manages. No instructions given - albuterol HFA (PROVENTIL HFA, VENTOLIN HFA) 90 mcg/actuation inhaler Inhale 1-2 Puffs as instructed every 6 hours as needed for wheezing/shortness of breath. - atorvastatin (LIPITOR) 40 mg tablet Take 40 mg by mouth once daily. - clopidogrel (PLAVIX) 75 mg tablet Take 75 mg by mouth once daily. Dr. Quintana manages - fluticasone-salmetero l (ADVAIR, WIXELA) 250-50 mcg/dose inhaler Inhale 1 Inhalation as instructed two times a day. - pantoprazole DR (PROTONIX) 40 mg tablet Take 40 mg by mouth every afternoon. Problem List As Of Date 06/10/2025 Noted Resolved Cervical spondylosis with myelopathy [M47.12] 09/28/2024 Chronic right shoulder pain [M25.511, G89.29] 11/10/2024 Long-term current use of opiate analgesic [Z79.*11/10/2024 Lumbosacral spondylosis without myelopathy [M47*11/10/2024 Preop testing [Z01.818] 11/26/2024 Cervical myelopathy (HCC) [G95.9] 11/30/2024 CAD (coronary artery disease) [I25.10] 11/30/2024 Sleep apnea [G47.30] 11/30/2024 History of coronary artery bypass graft [Z95.1] 11/30/2024 Stented coronary artery [Z95.5] 11/30/2024 HTN (hypertension) [I10] 11/30/2024 Diabetes mellitus, type 2 (HCC) [E11.9] 11/30/2024 Arthritis [M19.90] 11/30/2024 History of psychiatric care [Z92.89] 11/30/2024 Obesity, Class I, BMI 30-34.9 [E66.811] 11/30/2024 Other specified postprocedural states [Z98.890] 12/08/2024 S/P cervical spinal fusion [Z98.1] 12/08/2024 Lumbosacral spondylosis with radiculopathy [M47*05/20/2025 Encounter Status:Closed by PHILLIP HAJI on 06/11/25 [facility] .Auto Diffon 06-04-2025 Basophil, Absolute 0.1 10 3/mcL Normal 0.0-0.3 [facility] Comment on above: Performed By: #### L IPID, ANEU, CMP, GFR, CBC, ADIFF, A1C ####[facility] [place], [place] [address] Basophils/100 WBC (Bld) 1.3 % Normal 0.0-2.5 [facility] Comment on above: Performed By: #### L IPID, ANEU, CMP, GFR, CBC, ADIFF, A1C ####[facility] [place], [place] [address] Eosinophil, Absolute 0.1 10 3/mcL Normal 0.0-0.7 [facility] Comment on above: Performed By: #### L IPID, ANEU, CMP, GFR, CBC, ADIFF, A1C ####[facility] [place], [place] [address] Eosinophils/100 WBC (Bld) 1.6 % Normal 0.0-6.0 [facility] Comment on above: Performed By: #### L IPID, ANEU, CMP, GFR, CBC, ADIFF, A1C ####[place] [address] [place], [place] [address] Lymphocyte, Absolute 2.7 10 3/mcL Normal 0.9-4.3 [facility] Comment on above: Performed By: #### L IPID, ANEU, CMP, GFR, CBC, ADIFF, A1C ####[place] [address] [place], [place] [address] Lymphocytes/100 WBC (Bld) 30.7 % Normal 20.0-40.0 [facility] Comment on above: Performed By: #### L IPID, ANEU, CMP, GFR, CBC, ADIFF, A1C ####[place] [address] [place], [place] [address] Monocyte, Absolute 0.8 10 3/mcL Normal 0.1-1.4 [facility] Comment on above: Performed By: #### L IPID, ANEU, CMP, GFR, CBC, ADIFF, A1C ####[place] [address] [place], [place] [address] Monocytes/100 WBC (Bld) 9.0 % Normal 2.0-13.0 [facility] Comment on above: Performed By: #### L IPID, ANEU, CMP, GFR, CBC, ADIFF, A1C ####[place] [address] [place], [place] [address] Neutrophils/100 WBC (Bld) 57.4 % Normal 50.0-75.0 [facility] Comment on above: Performed By: #### L IPID, ANEU, CMP, GFR, CBC, ADIFF, A1C ####[place] [address] [place], [place] [address] .GFRon 06-04-2025 Estimated Glomerular Filtration Rate 87 ml/min/1.73sqm Normal [facility] Comment on above: Result Comment: Stages of Chronic Kidney Disease (CKD) Stage Description eGFR(ml/min/1.73 sq.m.) CKD 1 Normal kidney function or >=90 normal kindney function with possible kidney damage (ex. Proteinuria) CKD 2 Kidney damage with mild loss 60-89 of kidney function CKD 3a Mild to moderate loss of kidney 45-59 function CKD 3b Moderate to severe loss of 30-44 of kindey function CKD 4 Severe loss of kidney function 15-29 CKD 5 Kidney failure <15 Note: (go live 2024) the eGFR calculation was updated to the 2020 CKD-EPI creatinine equation without a race factor to calculate the eGFR results. Performed By: #### L IPID, ANEU, CMP, GFR, CBC, ADIFF, A1C ####[place] [address] [place], [place] [address] .NEUABSon 06-04-2025 Neutrophil, Absolute 5.0 10 3/mcL Normal 2.3-8.1 [facility] Comment on above: Performed By: #### L IPID, ANEU, CMP, GFR, CBC, ADIFF, A1C ####[place] [place], [place] [address] A1Con 06-04-2025 Glucose [Mass/Vol] 171 mg/dL Normal [facility] Comment on above: Result Comment: Jacinta mated Average Glucose calculated by equation ((28.7xA1C)-46.7) Estimated average glucose (eAG) is a calculated value from Hemoglobin A1C and is shipping services sales representative of the average blood glucose level in the last 2-3 month period. Normal range: less than 114 mg/dL Performed By: #### L IPID, ANEU, CMP, GFR, CBC, ADIFF, A1C ####[place] [place], [place] [address] HbA1c (Bld) [Mass fraction] 7.6 % High 4.3-6.4 [facility] Comment on above: Performed By: #### L IPID, ANEU, CMP, GFR, CBC, ADIFF, A1C ####[place] [address] [place], [place] [address] CBCon 06-04-2025 Erythrocyte distribution width (RBC) [Ratio] 13.9 % Normal 11.5-15.5 [facility] Comment on above: Performed By: #### L IPID, ANEU, CMP, GFR, CBC, ADIFF, A1C ####[place] [address] [place], [place] [address] Hematocrit (Bld) [Volume fraction] 52.4 % High 34.0-46.0 [facility] Comment on above: Performed By: #### L IPID, ANEU, CMP, GFR, CBC, ADIFF, A1C ####[address] [place], [place] [address] Hgb 17.5 G/dL High 12.0-16.0 [facility] Comment on above: Performed By: #### L IPID, ANEU, CMP, GFR, CBC, ADIFF, A1C ####[address] [place], [place] [address] MCH (RBC) [Entitic mass] 30.5 pg Normal 27.0-33.0 [facility] Comment on above: Performed By: #### L IPID, ANEU, CMP, GFR, CBC, ADIFF, A1C ####[address] [place], [place] [address] MCHC 33.4 G/dL Normal 32.0-36.0 [facility] Comment on above: Performed By: #### L IPID, ANEU, CMP, GFR, CBC, ADIFF, A1C ####[place] [address] [place], [place] [address] MCV (RBC) [Entitic vol] 91.4 fL Normal 80.0-99.0 [facility] Comment on above: Performed By: #### L IPID, ANEU, CMP, GFR, CBC, ADIFF, A1C ####[address] [place], [place] [address] Platelet 218 10 3/mcL Normal 150-450 [facility] Comment on above: Performed By: #### L IPID, ANEU, CMP, GFR, CBC, ADIFF, A1C ####[address] [place], [place] [address] Platelet mean volume (Bld) [Entitic vol] 8.8 fL Normal 6.6-10.5 [facility] Comment on above: Performed By: #### L IPID, ANEU, CMP, GFR, CBC, ADIFF, A1C ####[address] [place], [place] [address] RBC 5.73 10 6/mcL High 4.10-5.30 [facility] Comment on above: Performed By: #### L IPID, ANEU, CMP, GFR, CBC, ADIFF, A1C ####[address] [place], [place] [address] WBC 8.7 10 3/mcL Normal 4.5-10.8 [facility] Comment on above: Performed By: #### L IPID, ANEU, CMP, GFR, CBC, ADIFF, A1C ####[address] [address] [place], [place] [address] CMPon 06-04-2025 Albumin Level 4.1 G/dL Normal 3.4-4.8 [facility] Comment on above: Performed By: #### L IPID, ANEU, CMP, GFR, CBC, ADIFF, A1C ####[address] [place], [place] [address] Albumin/Globulin [Mass ratio] 1.2 {ratio} Normal 1.1-2.5 [facility] Comment on above: Performed By: #### L IPID, ANEU, CMP, GFR, CBC, ADIFF, A1C ####[address] [address] [place], [place] [address] ALP [Catalytic activity/Vol] 76 U/L Normal 40-135 [facility] Comment on above: Performed By: #### L IPID, ANEU, CMP, GFR, CBC, ADIFF, A1C ####[address] [place], [place] [address] ALT [Catalytic activity/Vol] 28 U/L Normal 14-59 [facility] Comment on above: Performed By: #### L IPID, ANEU, CMP, GFR, CBC, ADIFF, A1C ####[address] [address] [place], [place] [address] AST [Catalytic activity/Vol] 12 U/L Normal 10-40 [facility] Comment on above: Performed By: #### L IPID, ANEU, CMP, GFR, CBC, ADIFF, A1C ####[address] [place], [place] [address] Bili Total 1.1 mg/dL High 0.2-1.0 [facility] Comment on above: Result Comment: Use of this assay is not recommended for patients undergoing treatment with eltrombopag due to the potential for falsely elevated results. Performed By: #### L IPID, ANEU, CMP, GFR, CBC, ADIFF, A1C ####[address] [place], [place] [address] BUN/Creatinine Ratio 28 ratio High 7-27 [facility] Comment on above: Performed By: #### L IPID, ANEU, CMP, GFR, CBC, ADIFF, A1C ####[address] [place], [place] [address] Calcium [Mass/Vol] 9.6 mg/dL Normal 8.4-10.2 [facility] Comment on above: Performed By: #### L IPID, ANEU, CMP, GFR, CBC, ADIFF, A1C ####[address] [place], [place] [address] Chloride [Moles/Vol] 102 mmol/L Normal 98-107 [facility] Comment on above: Performed By: #### L IPID, ANEU, CMP, GFR, CBC, ADIFF, A1C ####[address] [place], [place] [address] CO2 [Moles/Vol] 28 mmol/L Normal 23-31 [facility] Comment on above: Performed By: #### L IPID, ANEU, CMP, GFR, CBC, ADIFF, A1C ####[address] [place], [place] [address] Creatinine [Mass/Vol] 0.78 mg/dL Normal 0.51-0.95 [facility] Comment on above: Performed By: #### L IPID, ANEU, CMP, GFR, CBC, ADIFF, A1C ####[place] [address] [place], [place] [address] Electrolyte Balance 8.0 mEq/L Normal 4.0-15.[address] [facility] Comment on above: Performed By: #### L IPID, ANEU, CMP, GFR, CBC, ADIFF, A1C ####[address] [place], [place] [address] Globulin 3.3 G/dL Normal 2.7-4.4 [facility] Comment on above: Performed By: #### L IPID, ANEU, CMP, GFR, CBC, ADIFF, A1C ####[address] [place], [place] [address] Glucose [Mass/Vol] 161 mg/dL High 80-115 [facility] Comment on above: Performed By: #### L IPID, ANEU, CMP, GFR, CBC, ADIFF, A1C ####[address] [place], [place] [address] Potassium [Moles/Vol] 4.1 mmol/L Normal 3.5-5.1 [facility] Comment on above: Performed By: #### L IPID, ANEU, CMP, GFR, CBC, ADIFF, A1C ####[address] [address] Sodium [Moles/Vol] 138 mmol/L Normal 136-145 [facility] Comment on above: Performed By: #### L IPID, ANEU, CMP, GFR, CBC, ADIFF, A1C ####[address] [place], [place] [address] Total Protein 7.4 G/dL Normal 6.4-8.2 [facility] Comment on above: Performed By: #### L IPID, ANEU, CMP, GFR, CBC, ADIFF, A1C ####[address] [place], [place] [address] Urea nitrogen [Mass/Vol] 22 mg/dL High 7-18 [facility] Comment on above: Performed By: #### L IPID, ANEU, CMP, GFR, CBC, ADIFF, A1C ####[address] [place], [place] [address] James 06-04-2025 REUBEN Telephone (IVAN) CHIDI MUSA ([id number]) 1965 F Date Time Provider Department 06/04/25 KOBI GARSIA During your visit today, we recorded the following information about you: Phillip Haji RN 06/04/2025 1:00 PM Signed Pt states that she started the voltaren gel and developed heart palpitations. She then researched it and states it has heart attack and stroke warning, pt states she is already a heart patient and will not continue to use this medication. She is asking for something in its place to help with her pain. Phillip Haji RN June 04, 2025 1:00 PM Angela Rojo PA-C 06/04/2025 1:20 PM Signed She could try lidocaine ointment and/or lidocaine patches/salon pas patches over the counter, but unfortunately there aren't any other anti-inflammatory creams to try, and as Kobi has told her previously, she shouldn't use an oral version of an NSAID due to being on plavix. If she has a TENS unit, she could try using that on her shoulder. Palak Borjas LPN 06/04/2025 2:48 PM Signed Spoke with pt who stated since she started to have chest pain after taking the NSAID, stopped using this, and I already use the lidocaine 5% patches. Discussed if TEN's is being used, stated I haven't for a while, it broke. Suggested asking for a new order next time having a OV and new order can be sent, especially since last purchased under private ins.. Allergies As of Date: 06/04/2025 (No Known Allergies) Date Reviewed: 05/20/2025 Reviewed by: Brynn Lisa MA - Fully Assessed Reason for Visit: Medication Problem [65] Prescriptions as of 06/04/2025 - diclofenac (VOLTAREN) 1 % topical gel Apply 2 g to affected area four times daily. - naproxen (NAPROSYN) 500 mg tablet Take 1 tablet by mouth two times a day as needed (for Pain. Take with food.). FOR PAIN. TAKE WITH FOOD. - metoprolol succinate ER (TOPROL XL) 25 mg 24 hr tablet Take 2 tablets by mouth once daily. - MOUNJARO 2.5 mg/0.5 mL pen injector Inject 2.5 mg subcutaneously one time a week. PCP - pregabalin (LYRICA) 200 mg capsule Take 1 capsule by mouth three times a day for 30 days. - tiZANidine (ZANAFLEX) 4 mg tablet Take 1 tablet by mouth two times a day as needed. - amLODIPine (NORVASC) 5 mg tablet Take 1 tablet by mouth once daily. - methylPREDNISolone (MEDROL DOSE-PACK) 4 mg Dose-Pack A directed - ergocalciferol 50,000 unit capsule (VITAMIN D2, DRISDOL) Take 1 capsule by mouth one time a week. - losartan (COZAAR) 25 mg tablet Take 25 mg by mouth once daily. - Ugmdo-1-MQG-EPA-Fish Oil (FISH OIL) 1,000 (120-180) mg cap Take 2 g by mouth once daily. Last dose 11/09 due to surgery - JANUMET 50-1,000 mg per tablet Take 1 tablet by mouth two times a day with meals. - ARIPiprazole (ABILIFY) 5 mg tablet Take 5 mg by mouth once daily. - cariprazine (VRAYLAR) 1.5 mg capsule Take 1.5 mg by mouth once daily. - JARDIANCE 10 mg tablet Take 10 mg by mouth once daily. - fluconazole (DIFLUCAN) 100 mg tablet Take 100 mg by mouth as needed (yeast infections). - fluticasone (FLONASE) 50 mcg/actuation nasal spray Use 2 Sprays in each nostril once daily. - hydrOXYzine HCl (ATARAX) 25 mg tablet Take 25 mg by mouth once daily. - lidocaine (LIDODERM) 5 % Apply 1 Patch as directed every 12 hours. ARMS - aspirin 81 mg cap Take 81 mg by mouth once daily. Dr. Quintana manages. No instructions given - albuterol HFA (PROVENTIL HFA, VENTOLIN HFA) 90 mcg/actuation inhaler Inhale 1-2 Puffs as instructed every 6 hours as needed for wheezing/shortness of breath. - atorvastatin (LIPITOR) 40 mg tablet Take 40 mg by mouth once daily. - clopidogrel (PLAVIX) 75 mg tablet Take 75 mg by mouth once daily. Dr. Quintana manages - fluticasone-salmetero l (ADVAIR, WIXELA) 250-50 mcg/dose inhaler Inhale 1 Inhalation as instructed two times a day. - pantoprazole DR (PROTONIX) 40 mg tablet Take 40 mg by mouth every afternoon. Problem List As Of Date 06/04/2025 Noted Resolved Cervical spondylosis with myelopathy [M47.12] 09/28/2024 Chronic right shoulder pain [M25.511, G89.29] 11/10/2024 Long-term current use of opiate analgesic [Z79.*11/10/2024 Lumbosacral spondylosis without myelopathy [M47*11/10/2024 Preop testing [Z01.818] 11/26/2024 Cervical myelopathy (HCC) [G95.9] 11/30/2024 CAD (coronary artery disease) [I25.10] 11/30/2024 Sleep apnea [G47.30] 11/30/2024 History of coronary artery bypass graft [Z95.1] 11/30/2024 Stented coronary artery [Z95.5] 11/30/2024 HTN (hypertension) [I10] 11/30/2024 Diabetes mellitus, type 2 (HCC) [E11.9] 11/30/2024 Arthritis [M19.90] 11/30/2024 History of psychiatric care [Z92.89] 11/30/2024 Obesity, Class I, BMI 30-34.9 [E66.811] 11/30/2024 Other specified postprocedural states [Z98.890] 12/08/2024 S/P cervical spinal fusion [Z98.1] 12/08/2024 Lumbosacral spondylosis with radiculopathy [M47 (more content not included)... Normal [facility] LABORATORYOrdered By: SYSTEM SYSTEM on 06-04-2025 Albumin BCP dye [Mass/Vol] 4.1 G/dL Normal 3.4 - 4.8 G/dL AO ADM SS Albumin/Globulin [Mass ratio] 1.2 {ratio} Normal 1.1 - 2.5 ratio AO ADM SS ALP [Catalytic activity/Vol] 76 U/L Normal 40 - 135 U/L AO ADM SS ALT With P-5'-P [Catalytic activity/Vol] 28 U/L Normal 14 - 59 U/L AO ADM SS AST With P-5'-P [Catalytic activity/Vol] 12 U/L Normal 10 - 40 U/L AO ADM SS Basophils (Bld) [#/Vol] 0.1 103/mcL Normal 0.0 - 0.3 10^3/mcL AO Workflow SS Basophils/100 WBC (Bld) 1.3 % Normal 0.0 - 2.5 % AO Workflow SS Bilirubin [Mass/Vol] 1.1 mg/dL High 0.2 - 1 .0 mg/dL AO ADM SS Comment on above: Interpretive Data: U se of this assay is not recommended for patients undergoing treatment with eltrombopag due to the potential for falsely elevated results. Calcium [Mass/Vol] 9.6 mg/dL Normal 8.4 - 10. 2 mg/dL AO ADM SS Chloride [Moles/Vol] 102 mmol/L Normal 98 - 10 7 mmol/L AO ADM SS CO2 [Moles/Vol] 28 mmol/L Normal 23 - 31 mmol/L AO ADM SS Creatinine [Mass/Vol] 0.78 mg/dL Normal 0.51 - 0.95 mg/dL AO ADM SS Electrolyte Balance 8.0 mEq/L Normal 4.0 - 15 .0 mEq/L AO ADM SS Eosinophil, Absolute 0.1 103/mcL Normal 0.0 - 0 .7 10^3/mcL AO Workflow SS Eosinophils/100 WBC (Bld) 1.6 % Normal 0.0 - 6.0 % AO Workflow SS Erythrocyte distribution width (RBC) [Ratio] 13.9 % Normal 11.5 - 15.5 % AO Workflow SS Estimated Glomerular Filtration Rate 87 ml/min/1.73sqm Invalid Interpretation Code AO Chemistry S Comment on above: Interpretive Data: Stages of Chronic Kidney Disease (CKD) Stage Description eGFR(ml/min/1.73 sq.m.) CKD 1 Normal kidney function or >=90 normal kindney function with possible kidney damage (ex. Proteinuria) CKD 2 Kidney damage with mild loss 60-89 of kidney function CKD 3a Mild to moderate loss of kidney 45-59 function CKD 3b Moderate to severe loss of 30-44 of kindey function CKD 4 Severe loss of kidney function 15-29 CKD 5 Kidney failure <15 Note: (go live 2024) the eGFR calculation was updated to the 2020 CKD-EPI creatinine equation without a race factor to calculate the eGFR results. Globulin 3.3 G/dL Normal 2.7 - 4.4 G/dL AO ADM SS Glucose [Mass/Vol] 161 mg/dL High 80 - 115 mg/dL AO ADM SS Glucose [Mass/Vol] 171 mg/dL Invalid Interpretation Code AO Chemistry S Comment on above: Interpretive Data: E stimated average glucose (eAG) is a calculated value from Hemoglobin A1C and is shipping services sales representative of the average blood glucose level in the last 2-3 month period. Normal range: less than 114 mg/dL HbA1c (Bld) [Mass fraction] 7.6 % High 4.3 - 6.4 % AO ADM SS Hematocrit (Bld) [Volume fraction] 52.4 % High 34.0 - 46.0 % AO Workflow SS Hemoglobin (Bld) [Mass/Vol] 17.5 G/dL High 12.0 - 16.0 G/dL AO Workflow SS Lymphocytes (Bld) [#/Vol] 2.7 103/mcL Normal 0.9 - 4.3 10^3/mcL AO Workflow SS Lymphocytes/100 WBC (Bld) 30.7 % Normal 20.0 - 40.0 % AO Workflow SS MCH (RBC) [Entitic mass] 30.5 pg Normal 27.0 - 33.0 pg AO Workflow SS MCHC 33.4 G/dL Normal 32.0 - 36.0 G/dL AO Workflow SS MCV (RBC) [Entitic vol] 91.4 fL Normal 80.0 - 99.0 fL AO Workflow SS Monocytes (Bld) [#/Vol] 0.8 103/mcL Normal 0.1 - 1.4 10^3/mcL AO Workflow SS Monocytes/100 WBC (Bld) 9.0 % Normal 2.0 - 13.0 % AO Workflow SS Neutrophils (Bld) [#/Vol] 5.0 103/mcL Normal 2.3 - 8.1 10^3/mcL AO Workflow SS Neutrophils/100 WBC (Bld) 57.4 % Normal 50.0 - 75.0 % AO Workflow SS Platelet mean volume (Bld) [Entitic vol] 8.8 fL Normal 6.6 - 10.5 fL AO Workflow SS Platelets (Bld) [#/Vol] 218 103/mcL Normal 150 - 450 10^3/mcL AO Workflow SS Potassium [Moles/Vol] 4.1 mmol/L Normal 3.5 - 5.1 mmol/L AO ADM SS Protein [Mass/Vol] 7.4 G/dL Normal 6.4 - 8.2 G/dL AO ADM SS RBC (Bld) [#/Vol] 5.73 106/mcL High 4.10 - 5.3 0 10^6/mcL AO Workflow SS Sodium [Moles/Vol] 138 mmol/L Normal 136 - 145 mmol/L AO ADM SS Urea nitrogen [Mass/Vol] 22 mg/dL High 7 - 18 mg/dL AO ADM SS Urea nitrogen/Creatinine [Mass ratio] 28 ratio High 7 - 27 ratio AO ADM SS WBC (Bld) [#/Vol] 8.7 103/mcL Normal 4.5 - 10.8 10^3/mcL AO Workflow SS LABORATORYOrdered By: Jemal Riggs on 06-04-2025 Cholesterol [Mass/Vol] 187 mg/dL Normal 0 - 200 mg/dL AO ADM SS Comment on above: Interpretive Data: C holesterol Reference Interval: Less than 200 Desirable 200-239 Borderline high risk 240 and above High risk Cholesterol in HDL [Mass/Vol] 31 mg/dL Low 40 - 60 mg/dL AO ADM SS Cholesterol in LDL [Mass/Vol] 115 mg/dL Normal 0 - 130 mg/dL AO ADM SS Triglyceride [Mass/Vol] 206 mg/dL High 0 - 150 mg/dL AO ADM SS Comment on above: Interpretive Data: T riglyceride Reference Interval: Less than 150 Normal 150-199 Borderline high risk 200-499 High risk 500 or higher Very high risk LIPIDon 06-04-2025 Cholesterol [Mass/Vol] 187 mg/dL Normal 0-200 [facility] Comment on above: Result Comment: Chol esterol Reference Interval: Less than 200 Desirable 200-239 Borderline high risk 240 and above High risk Performed By: #### L IPID, ANEU, CMP, GFR, CBC, ADIFF, A1C ####[facility] [place], [place] [address] Cholesterol in HDL [Mass/Vol] 31 mg/dL Low 40-60 [facility] Comment on above: Performed By: #### L IPID, ANEU, CMP, GFR, CBC, ADIFF, A1C ####[address] [place], [place] [address] Cholesterol in LDL [Mass/Vol] 115 mg/dL Normal 0-130 [facility] Comment on above: Performed By: #### L IPID, ANEU, CMP, GFR, CBC, ADIFF, A1C ####[address] [place], [place] [address] Triglyceride [Mass/Vol] 206 mg/dL High 0-150 [facility] Comment on above: Result Comment: Trig lyceride Reference Interval: Less than 150 Normal 150-199 Borderline high risk 200-499 High risk 500 or higher Very high risk Performed By: #### L IPID, ANEU, CMP, GFR, CBC, ADIFF, A1C ####[address] [place], [place] [address] James 06-01-2025 EUGENIE Telephone (IVAN) CHIDI MUSA ([id number]) 1965 F Date Time Provider Department 06/01/25 KOBI GARSIA During your visit today, we recorded the following information about you: Jina Ramirez MA 06/01/2025 1:13 PM Signed Patient called Rx refill line asking for a call back. She states her pregabalin (LYRICA) 200 mg capsule isn't helping with her shoulder pain. Requesting something stronger Jina Ramirez MA June 01, 2025 1:13 PM Palak Borjas LPN 06/01/2025 2:55 PM Signed Left message on Id'd VM asking if she has used cream that was ordered and how often, to return call to Nur[facility]. Palak Borjas LPN 06/01/2025 3:47 PM Signed Spoke with pt who stated she did not get the voltaren gel yet I don't know what pharmacy that went to. Explained what pharmacy. Stated I don't think I have any lyrica also. Explained pregabalin is lyrica and script was sent on 05/18/25, to check with pharmacy on both orders. Encouraged use these medications for pain relief as ordered. Allergies As of Date: 06/01/2025 (No Known Allergies) Date Reviewed: 05/20/2025 Reviewed by: Brynn Lisa MA - Fully Assessed Reason for Visit: Medication Problem [65] Prescriptions as of 06/01/2025 - diclofenac (VOLTAREN) 1 % topical gel Apply 2 g to affected area four times daily. - naproxen (NAPROSYN) 500 mg tablet Take 1 tablet by mouth two times a day as needed (for Pain. Take with food.). FOR PAIN. TAKE WITH FOOD. - metoprolol succinate ER (TOPROL XL) 25 mg 24 hr tablet Take 2 tablets by mouth once daily. - MOUNJARO 2.5 mg/0.5 mL pen injector Inject 2.5 mg subcutaneously one time a week. PCP - pregabalin (LYRICA) 200 mg capsule Take 1 capsule by mouth three times a day for 30 days. - tiZANidine (ZANAFLEX) 4 mg tablet Take 1 tablet by mouth two times a day as needed. - amLODIPine (NORVASC) 5 mg tablet Take 1 tablet by mouth once daily. - methylPREDNISolone (MEDROL DOSE-PACK) 4 mg Dose-Pack A directed - ergocalciferol 50,000 unit capsule (VITAMIN D2, DRISDOL) Take 1 capsule by mouth one time a week. - losartan (COZAAR) 25 mg tablet Take 25 mg by mouth once daily. - Jypad-5-SPV-EPA-Fish Oil (FISH OIL) 1,000 (120-180) mg cap Take 2 g by mouth once daily. Last dose 11/09 due to surgery - JANUMET 50-1,000 mg per tablet Take 1 tablet by mouth two times a day with meals. - ARIPiprazole (ABILIFY) 5 mg tablet Take 5 mg by mouth once daily. - cariprazine (VRAYLAR) 1.5 mg capsule Take 1.5 mg by mouth once daily. - JARDIANCE 10 mg tablet Take 10 mg by mouth once daily. - fluconazole (DIFLUCAN) 100 mg tablet Take 100 mg by mouth as needed (yeast infections). - fluticasone (FLONASE) 50 mcg/actuation nasal spray Use 2 Sprays in each nostril once daily. - hydrOXYzine HCl (ATARAX) 25 mg tablet Take 25 mg by mouth once daily. - lidocaine (LIDODERM) 5 % Apply 1 Patch as directed every 12 hours. ARMS - aspirin 81 mg cap Take 81 mg by mouth once daily. Dr. Quintana manages. No instructions given - albuterol HFA (PROVENTIL HFA, VENTOLIN HFA) 90 mcg/actuation inhaler Inhale 1-2 Puffs as instructed every 6 hours as needed for wheezing/shortness of breath. - atorvastatin (LIPITOR) 40 mg tablet Take 40 mg by mouth once daily. - clopidogrel (PLAVIX) 75 mg tablet Take 75 mg by mouth once daily. Dr. Quintana manages - fluticasone-salmetero l (ADVAIR, WIXELA) 250-50 mcg/dose inhaler Inhale 1 Inhalation as instructed two times a day. - pantoprazole DR (PROTONIX) 40 mg tablet Take 40 mg by mouth every afternoon. Problem List As Of Date 06/01/2025 Noted Resolved Cervical spondylosis with myelopathy [M47.12] 09/28/2024 Chronic right shoulder pain [M25.511, G89.29] 11/10/2024 Long-term current use of opiate analgesic [Z79.*11/10/2024 Lumbosacral spondylosis without myelopathy [M47*11/10/2024 Preop testing [Z01.818] 11/26/2024 Cervical myelopathy (HCC) [G95.9] 11/30/2024 CAD (coronary artery disease) [I25.10] 11/30/2024 Sleep apnea [G47.30] 11/30/2024 History of coronary artery bypass graft [Z95.1] 11/30/2024 Stented coronary artery [Z95.5] 11/30/2024 HTN (hypertension) [I10] 11/30/2024 Diabetes mellitus, type 2 (HCC) [E11.9] 11/30/2024 Arthritis [M19.90] 11/30/2024 History of psychiatric care [Z92.89] 11/30/2024 Obesity, Class I, BMI 30-34.9 [E66.811] 11/30/2024 Other specified postprocedural states [Z98.890] 12/08/2024 S/P cervical spinal fusion [Z98.1] 12/08/2024 Lumbosacral spondylosis with radiculopathy [M47*05/20/2025 Encounter Status:Closed by PALAK BORJAS on 06/01/25 [facility] CHIDI MUSA ([id number]) 1965 F Date Time Provider Department 05/26/25 NEWTON SHINE [facility] During your visit today, we recorded the following information about you: Celine Hamilton MA 05/26/2025 1:06 PM Signed Patient called in about a pain cream that was suppose to be ordered for her. Palak Borjas LPN 05/27/2025 2:45 PM Signed Attempted to reach pt to discuss, no answer or VM set up. Allergies As of Date: 05/26/2025 (No Known Allergies) Date Reviewed: 05/20/2025 Reviewed by: Brynn Lisa MA - Fully Assessed Primary Visit Diagnosis:Lumbosacral spondylosis without myelopathy [M47.817] Order(s):diclofenac (VOLTAREN) 1 % topical gelApply 2 g to affected area four times daily.Disp: 240 gRfl: 2 Prescriptions as of 05/27/2025 - diclofenac (VOLTAREN) 1 % topical gel Apply 2 g to affected area four times daily. - naproxen (NAPROSYN) 500 mg tablet Take 1 tablet by mouth two times a day as needed (for Pain. Take with food.). FOR PAIN. TAKE WITH FOOD. - metoprolol succinate ER (TOPROL XL) 25 mg 24 hr tablet Take 2 tablets by mouth once daily. - MOUNJARO 2.5 mg/0.5 mL pen injector Inject 2.5 mg subcutaneously one time a week. PCP - pregabalin (LYRICA) 200 mg capsule Take 1 capsule by mouth three times a day for 30 days. - tiZANidine (ZANAFLEX) 4 mg tablet Take 1 tablet by mouth two times a day as needed. - amLODIPine (NORVASC) 5 mg tablet Take 1 tablet by mouth once daily. - methylPREDNISolone (MEDROL DOSE-PACK) 4 mg Dose-Pack A directed - ergocalciferol 50,000 unit capsule (VITAMIN D2, DRISDOL) Take 1 capsule by mouth one time a week. - losartan (COZAAR) 25 mg tablet Take 25 mg by mouth once daily. - Wbsby-4-SVS-EPA-Fish Oil (FISH OIL) 1,000 (120-180) mg cap Take 2 g by mouth once daily. Last dose 11/09 due to surgery - JANUMET 50-1,000 mg per tablet Take 1 tablet by mouth two times a day with meals. - ARIPiprazole (ABILIFY) 5 mg tablet Take 5 mg by mouth once daily. - cariprazine (VRAYLAR) 1.5 mg capsule Take 1.5 mg by mouth once daily. - JARDIANCE 10 mg tablet Take 10 mg by mouth once daily. - fluconazole (DIFLUCAN) 100 mg tablet Take 100 mg by mouth as needed (yeast infections). - fluticasone (FLONASE) 50 mcg/actuation nasal spray Use 2 Sprays in each nostril once daily. - hydrOXYzine HCl (ATARAX) 25 mg tablet Take 25 mg by mouth once daily. - lidocaine (LIDODERM) 5 % Apply 1 Patch as directed every 12 hours. ARMS - aspirin 81 mg cap Take 81 mg by mouth once daily. Dr. Quintana manages. No instructions given - albuterol HFA (PROVENTIL HFA, VENTOLIN HFA) 90 mcg/actuation inhaler Inhale 1-2 Puffs as instructed every 6 hours as needed for wheezing/shortness of breath. - atorvastatin (LIPITOR) 40 mg tablet Take 40 mg by mouth once daily. - clopidogrel (PLAVIX) 75 mg tablet Take 75 mg by mouth once daily. Dr. Quintana manages - fluticasone-salmetero l (ADVAIR, WIXELA) 250-50 mcg/dose inhaler Inhale 1 Inhalation as instructed two times a day. - pantoprazole DR (PROTONIX) 40 mg tablet Take 40 mg by mouth every afternoon. Problem List As Of Date 05/26/2025 Noted Resolved Cervical spondylosis with myelopathy [M47.12] 09/28/2024 Chronic right shoulder pain [M25.511, G89.29] 11/10/2024 Long-term current use of opiate analgesic [Z79.*11/10/2024 Lumbosacral spondylosis without myelopathy [M47*11/10/2024 Preop testing [Z01.818] 11/26/2024 Cervical myelopathy (HCC) [G95.9] 11/30/2024 CAD (coronary artery disease) [I25.10] 11/30/2024 Sleep apnea [G47.30] 11/30/2024 History of coronary artery bypass graft [Z95.1] 11/30/2024 Stented coronary artery [Z95.5] 11/30/2024 HTN (hypertension) [I10] 11/30/2024 Diabetes mellitus, type 2 (HCC) [E11.9] 11/30/2024 Arthritis [M19.90] 11/30/2024 History of psychiatric care [Z92.89] 11/30/2024 Obesity, Class I, BMI 30-34.9 [E66.811] 11/30/2024 Other specified postprocedural states [Z98.890] 12/08/2024 S/P cervical spinal fusion [Z98.1] 12/08/2024 Lumbosacral spondylosis with radiculopathy [M47*05/20/2025 Prescriptions ordered this encounter Disp Refills Start End DICLOFENAC 1 % TOPICAL GEL 240 g 2 05/27/2025 08/25/2025 Route: TOP Sig: Apply 2 g to affected area four times daily. Encounter Status:Closed by NEWTON SHINE on 05/27/25 [facility] James 05-25-2025 REUBEN Telephone (PAIMER) CHIDI MUSA ([id number]) 1965 F Date Time Provider Department 05/25/25 KOBI GARSIA During your visit today, we recorded the following information about you: Phillip Haji RN 05/25/2025 11:36 AM Signed Pt states she has not gotten any relief with right shoulder injections done 05/17. Pt is asking if anything else can be done, next ov is 08/19, please dahlia Haji RN May 25, 2025 11:36 AM Kobi Garsia PA-C 05/25/2025 11:56 AM Signed She may follow up with ortho. Or if interested, she may resume PT. I can place an order. She can apply Voltaren gel as needed to the shoulder. I'd not recommend PO NSAIDs since patient is also prescribed Plavix Phillip Haji RN 05/25/2025 4:05 PM Signed Pt notified of the below, she said she will try the diclofenac gel. She does not want to do therapy because they can never get insurance to approve it and she is still paying on a bill from last time. Phillip Haji RN May 25, 2025 4:05 PM Allergies As of Date: 05/25/2025 (No Known Allergies) Date Reviewed: 05/20/2025 Reviewed by: Brynn Lisa MA - Fully Assessed Reason for Visit: Patient Update [1234] Prescriptions as of 07/13/2025 - pregablin (LYRICA) 200 mg capsule Take 1 capsule by mouth three times a day for 30 days. - diclofenac (VOLTAREN) 1 % topical gel Apply 2 g to affected area four times daily. - metoprolol succinate ER (TOPROL XL) 25 mg 24 hr tablet Take 2 tablets by mouth once daily. - MOUNJARO 2.5 mg/0.5 mL pen injector Inject 2.5 mg subcutaneously one time a week. PCP - amLODIPine (NORVASC) 5 mg tablet Take 1 tablet by mouth once daily. - methylPREDNISolone (MEDROL DOSE-PACK) 4 mg Dose-Pack A directed - ergocalciferol 50,000 unit capsule (VITAMIN D2, DRISDOL) Take 1 capsule by mouth one time a week. - losartan (COZAAR) 25 mg tablet Take 25 mg by mouth once daily. - Ujlnu-2-IQT-EPA-Fish Oil (FISH OIL) 1,000 (120-180) mg cap Take 2 g by mouth once daily. Last dose 11/09 due to surgery - JANUMET 50-1,000 mg per tablet Take 1 tablet by mouth two times a day with meals. - ARIPiprazole (ABILIFY) 5 mg tablet Take 5 mg by mouth once daily. - cariprazine (VRAYLAR) 1.5 mg capsule Take 1.5 mg by mouth once daily. - JARDIANCE 10 mg tablet Take 10 mg by mouth once daily. - fluconazole (DIFLUCAN) 100 mg tablet Take 100 mg by mouth as needed (yeast infections). - fluticasone (FLONASE) 50 mcg/actuation nasal spray Use 2 Sprays in each nostril once daily. - hydrOXYzine HCl (ATARAX) 25 mg tablet Take 25 mg by mouth once daily. - lidocaine (LIDODERM) 5 % Apply 1 Patch as directed every 12 hours. ARMS - aspirin 81 mg cap Take 81 mg by mouth once daily. Dr. Quintana manages. No instructions given - albuterol HFA (PROVENTIL HFA, VENTOLIN HFA) 90 mcg/actuation inhaler Inhale 1-2 Puffs as instructed every 6 hours as needed for wheezing/shortness of breath. - atorvastatin (LIPITOR) 40 mg tablet Take 40 mg by mouth once daily. - clopidogrel (PLAVIX) 75 mg tablet Take 75 mg by mouth once daily. Dr. Quintana manages - fluticasone-salmetero l (ADVAIR, WIXELA) 250-50 mcg/dose inhaler Inhale 1 Inhalation as instructed two times a day. - pantoprazole DR (PROTONIX) 40 mg tablet Take 40 mg by mouth every afternoon. Problem List As Of Date 05/25/2025 Noted Resolved Cervical spondylosis with myelopathy [M47.12] 09/28/2024 Chronic right shoulder pain [M25.511, G89.29] 11/10/2024 Long-term current use of opiate analgesic [Z79.*11/10/2024 Lumbosacral spondylosis without myelopathy [M47*11/10/2024 Preop testing [Z01.818] 11/26/2024 Cervical myelopathy (HCC) [G95.9] 11/30/2024 CAD (coronary artery disease) [I25.10] 11/30/2024 Sleep apnea [G47.30] 11/30/2024 History of coronary artery bypass graft [Z95.1] 11/30/2024 Stented coronary artery [Z95.5] 11/30/2024 HTN (hypertension) [I10] 11/30/2024 Diabetes mellitus, type 2 (HCC) [E11.9] 11/30/2024 Arthritis [M19.90] 11/30/2024 History of psychiatric care [Z92.89] 11/30/2024 Obesity, Class I, BMI 30-34.9 [E66.811] 11/30/2024 Other specified postprocedural states [Z98.890] 12/08/2024 S/P cervical spinal fusion [Z98.1] 12/08/2024 Lumbosacral spondylosis with radiculopathy [M47*05/20/2025 Encounter Status:Closed by PHILLIP HAJI on 07/13/25 [facility] LABORATORYOrdered By: Yassine Govea on 05-24-2025 Amphetamines Screen Ql (U) Negative *NA* (05/24/25 10:11 AM) Invalid Interpretation Code Negative AO ADM SS Barbiturates Screen Ql (U) Negative *NA* (05/24/25 10:11 AM) Invalid Interpretation Code Negative AO ADM SS Benzodiazepines Ql (U) Negative *NA* (05/24/25 10:11 AM) Invalid Interpretation Code Negative AO ADM SS Benzoylecgonine Screen Ql (U) Negative *NA* (05/24/25 10:11 AM) Invalid Interpretation Code Negative AO ADM SS Cannabinoids Screen Ql (U) Positive *ABN* (05/24/25 10:11 AM) Invalid Interpretation Code Negative AO ADM SS Methadone Screen Ql (U) Negative *NA* (05/24/25 10:11 AM) Invalid Interpretation Code Negative AO ADM SS Opiates Screen Ql (U) Negative *NA* (05/24/25 10:11 AM) Invalid Interpretation Code Negative AO ADM SS Phencyclidine Ql (U) Negative *NA* (05/24/25 10:11 AM) Invalid Interpretation Code Negative AO ADM SS Urine Drugs screened: See Below 1 (05/24/25 10:11 AM) Normal AO Chemistry S Comment on above: Interpretive Data: T his drug screen is a presumptive screening only. No confirmation will be performed unless requested. Drugs screened include: Threshold Amphetamines/Methamphetamines 1,000 ng/mL Barbiturates 200 ng/mL Benzodiazepine metabolites 200 ng/mL Cannabinoids (THC metabolites) 50 ng/mL Cocaine 300 ng/mL Opiates 300 ng/mL Methadone 300 ng/mL Phencyclidine (PCP) 25 ng/mL Testing has been performed FOR MEDICAL PURPOSES ONLY. Lizette 05-24-2025 Amphetamine (u) Negative Normal Negative [facility] Comment on above: Performed By: #### T SH, GFR, CMP, A1C, ANEU, VIDH, CBC, LIPID, FT4, ADIFF #### [address] [address] Barbiturate (u) Negative Normal Negative [facility] Comment on above: Performed By: #### T SH, GFR, CMP, A1C, ANEU, VIDH, CBC, LIPID, FT4, ADIFF #### [address] [address] Benzodiazepine (u) Negative Normal Negative [facility] Comment on above: Performed By: #### T SH, GFR, CMP, A1C, ANEU, VIDH, CBC, LIPID, FT4, ADIFF #### [address] [address] Cannabinoid (u) Positive Abnormal Negative [facility] Comment on above: Performed By: #### T SH, GFR, CMP, A1C, ANEU, VIDH, CBC, LIPID, FT4, ADIFF #### [address] [address] Cocaine Ql (U) Negative Normal Negative [facility] Comment on above: Performed By: #### T SH, GFR, CMP, A1C, ANEU, VIDH, CBC, LIPID, FT4, ADIFF #### [place] [address] Methadone Ql (U) Negative Normal Negative [facility] Comment on above: Performed By: #### T SH, GFR, CMP, A1C, ANEU, VIDH, CBC, LIPID, FT4, ADIFF #### [place] [address] Opiate (u) Negative Normal Negative [facility] Comment on above: Performed By: #### T SH, GFR, CMP, A1C, ANEU, VIDH, CBC, LIPID, FT4, ADIFF #### [place] [address] PCP (u) Negative Normal Negative [facility] Comment on above: Performed By: #### T SH, GFR, CMP, A1C, ANEU, VIDH, CBC, LIPID, FT4, ADIFF #### [place] [address] Urine Drugs screened: See Below [facility] Comment on above: Result Comment: This drug screen is a presumptive screening only. No confirmation will be performed unless requested. Drugs screened include: Threshold Amphetamines/Methamphetamines 1,000 ng/mL Barbiturates 200 ng/mL Benzodiazepine metabolites 200 ng/mL Cannabinoids (THC metabolites) 50 ng/mL Cocaine 300 ng/mL Opiates 300 ng/mL Methadone 300 ng/mL Phencyclidine (PCP) 25 ng/mL Testing has been performed FOR MEDICAL PURPOSES ONLY. Performed By: #### T SH, GFR, CMP, A1C, ANEU, VIDH, CBC, LIPID, FT4, ADIFF #### [place] [address] CNCOon 05-20-2025 CNCO Letter Text [facility] OPERATIVE NOon 05-20-2025 OPERATIVE NO HNO ID: [id number] Author: NEWTON SHINE MD Service: Anesthesiology Author Type: Physician Type: Operative Report Filed: 05/20/2025 09:29 Note Text: OPERATIVE/PROCEDURE REPORT : LOG ID: [id number] SURGERY/PROCEDURE DATE: 05/20/2025 INCISION/PROCEDURE START TIME: 9:15 AM INCISION CLOSE/PROCEDURE END TIME: 9:27 AM PRE-OP/PRE-PROCEDURE DIAGNOSIS: Chronic right shoulder pain [M25.511, G89.29] POST-OP/POST-PROCEDUR E DIAGNOSIS: Chronic right shoulder pain [M25.511, G89.29] SURGERY/PROCEDURE(S): Right Suprascapular Nerve block under ultrasound guidance SURGEON(S)/PROCEDURAL IST(S) AND MOTOR OVERHAULER(S): Surgeons and Role: * Newton Shine MD - Primary No Additional Staff The attending was present for the gutierrez portions of the procedure. ANESTHESIA: Local SURGERY/PROCEDURE DESCRIPTION: . Ms. Musa was transported to the fluoroscopy suite and was placed in a sitting position on the fluoroscopy table. The patient was monitored using pulse oximetry and intermittent blood pressure reading. Using sterile technique, the skin over the injection site was prepped with Chlora-Prep and draped. INFORMED CONSENT: The procedure, risks, benefits and options were discussed with patient. There are no contraindications to the procedure. The patient expressed understanding and agreed to proceed. The personnel performing the procedure was discussed. I verify that I personally obtained Chidi Musa's consent prior to the start of the procedure and the signed consent can be found on the patient's chart. Newton Shine MD May 20, 2025 PROCEDURE: right SUPRASCAPULAR NERVE BLOCK-ultrasound guidance DESCRIPTION OF PROCEDURE: The patient was brought to the fluoroscopy suite. The patient was seated on the fluoroscopy table. Continuous hemodynamic monitoring was initiated including blood pressure and pulse oximetry. The skin was prepped with povidone-iodine three times, and draped in a sterile fashion. With a 25-gauge, 1.5 inch needle, lidocaine 1% was injected subcutaneously over the entry site. Ultrasound probe was positioned in a transverse fashion along the scapular spine. A 22-gauge 80 mm ultrasound needle was advanced under ultrasound guidance and placed underneath the transverse scapular ligament. After negative aspiration for blood or air. Subsequently, 6 ml of Bupivacaine 0.5% and 40 mg Kenalog was slowly administered. The needle was removed and bleeding was nil. A sterile dressing was applied. Patient was taken to the Post-block Recovery Area for further observation. EBL: NONE Specimen: None Newton Shine MD May 20, 2025 [facility] Post-Procedure Note Patient name: Chidi Musa ASSESSMENT: Pre Procedure diagnosis: Suprascapular nerve entrapment (primary encounter diagnosis) Post-Procedure diagnosis: same Post Procedure Pain Level: 1 on a scale of 0-10. Postoperative Nausea/Vomiting (PONV): absent Postoperative hydration status: adequate PLAN: - s/p right SUPRASCAPULAR NERVE BLOCK. - RTC as needed for repeat injection. - The treatment plan was discussed with the patient. Post procedure instructions were reviewed and the patient voiced understanding. Chidi Musa was discharged to Home. Condition at the time of discharge was Good Newton Shine MD May 20, 2025 [facility] 05-19-[address] [facility] Telephone (IVAN) CHIDI MUSA ([id number]) 1965 F Date Time Provider Department 05/19/25 NEWTON SHINE During your visit today, we recorded the following information about you: Phillip Haji RN 05/19/2025 1:44 PM Signed Pt states she spoke to her vasuclar surgeon, harlan Quintana dr, Rehan, and medical provider , MURTAZA Walter, about stopping blood thinner for procedure, ASA 81 and Plavix 75. Pt states she has gotten the okay to procedure with procedure as scheduled. Phillip Haji RN May 19, 2025 1:44 PM Kobi Garsia PA-C 05/20/2025 8:09 AM Signed She does not need to stop her blood thinner for the nerve blk. She needs to discuss medication/sliding scale to manage her blood sugar due to the steroids. Palak Borjas LPN 05/20/2025 11:13 AM Signed Steroid clearance form faxed to Deo Walter PCP at this time. Pt informed of this information and that she will need to work with her PCP on a possible sliding scale and that she does not need to stop the blood thinners for this procedure, stated ok. Allergies As of Date: 05/19/2025 (No Known Allergies) Date Reviewed: 05/18/2025 Reviewed by: Palak Borjas LPN - Fully Assessed Reason for Visit: Patient Update [1234] Prescriptions as of 05/20/2025 - naproxen (NAPROSYN) 500 mg tablet Take 1 tablet by mouth two times a day as needed (for Pain. Take with food.). FOR PAIN. TAKE WITH FOOD. - metoprolol succinate ER (TOPROL XL) 25 mg 24 hr tablet Take 2 tablets by mouth once daily. - MOUNJARO 2.5 mg/0.5 mL pen injector Inject 2.5 mg subcutaneously one time a week. PCP - pregabalin (LYRICA) 200 mg capsule Take 1 capsule by mouth three times a day for 30 days. - tiZANidine (ZANAFLEX) 4 mg tablet Take 1 tablet by mouth two times a day as needed. - amLODIPine (NORVASC) 5 mg tablet Take 1 tablet by mouth once daily. - methylPREDNISolone (MEDROL DOSE-PACK) 4 mg Dose-Pack A directed - ergocalciferol 50,000 unit capsule (VITAMIN D2, DRISDOL) Take 1 capsule by mouth one time a week. - losartan (COZAAR) 25 mg tablet Take 25 mg by mouth once daily. - Jfjvi-4-YIR-EPA-Fish Oil (FISH OIL) 1,000 (120-180) mg cap Take 2 g by mouth once daily. Last dose 11/09 due to surgery - JANUMET 50-1,000 mg per tablet Take 1 tablet by mouth two times a day with meals. - ARIPiprazole (ABILIFY) 5 mg tablet Take 5 mg by mouth once daily. - cariprazine (VRAYLAR) 1.5 mg capsule Take 1.5 mg by mouth once daily. - JARDIANCE 10 mg tablet Take 10 mg by mouth once daily. - fluconazole (DIFLUCAN) 100 mg tablet Take 100 mg by mouth as needed (yeast infections). - fluticasone (FLONASE) 50 mcg/actuation nasal spray Use 2 Sprays in each nostril once daily. - hydrOXYzine HCl (ATARAX) 25 mg tablet Take 25 mg by mouth once daily. - lidocaine (LIDODERM) 5 % Apply 1 Patch as directed every 12 hours. ARMS - aspirin 81 mg cap Take 81 mg by mouth once daily. Dr. Quintana manages. No instructions given - albuterol HFA (PROVENTIL HFA, VENTOLIN HFA) 90 mcg/actuation inhaler Inhale 1-2 Puffs as instructed every 6 hours as needed for wheezing/shortness of breath. - atorvastatin (LIPITOR) 40 mg tablet Take 40 mg by mouth once daily. - clopidogrel (PLAVIX) 75 mg tablet Take 75 mg by mouth once daily. Dr. Quintana manages - fluticasone-salmetero l (ADVAIR, WIXELA) 250-50 mcg/dose inhaler Inhale 1 Inhalation as instructed two times a day. - pantoprazole DR (PROTONIX) 40 mg tablet Take 40 mg by mouth every afternoon. Problem List As Of Date 05/19/2025 Noted Resolved Cervical spondylosis with myelopathy [M47.12] 09/28/2024 Chronic right shoulder pain [M25.511, G89.29] 11/10/2024 Long-term current use of opiate analgesic [Z79.*11/10/2024 Lumbosacral spondylosis without myelopathy [M47*11/10/2024 Preop testing [Z01.818] 11/26/2024 Cervical myelopathy (HCC) [G95.9] 11/30/2024 CAD (coronary artery disease) [I25.10] 11/30/2024 Sleep apnea [G47.30] 11/30/2024 History of coronary artery bypass graft [Z95.1] 11/30/2024 Stented coronary artery [Z95.5] 11/30/2024 HTN (hypertension) [I10] 11/30/2024 Diabetes mellitus, type 2 (HCC) [E11.9] 11/30/2024 Arthritis [M19.90] 11/30/2024 History of psychiatric care [Z92.89] 11/30/2024 Obesity, Class I, BMI 30-34.9 [E66.811] 11/30/2024 Other specified postprocedural states [Z98.890] 12/08/2024 S/P cervical spinal fusion [Z98.1] 12/08/2024 Encounter Status:Closed by PALAK BORJAS on 05/20/25 [facility] CNOVon 05-18-2025 CNOV Office Visit (IVAN ) CHIDI MUSA ([id number]) 1965 F Date Time Provider Department 05/18/25 9:30 AM KOBI GARSIA During your visit today, we recorded the following information about you: Pulse Respiration Blood pressure Weight 75/minute 16/minute 118/61 75.1 kg Height 1.6 m Kobi Garsia PA-C 05/18/2025 10:02 AM Signed PATIENT: Chidi Musa : 1965 DATE OF SERVICE: 05/18/2025 REFERRING PRACTITIONER: No ref. provider found PRIMARY CARE PROVIDER: Josephine Walter CNP CHIEF COMPLAINT: Patient presents with: Pain: Neck Shoulder Low back HISTORY OF PRESENT ILLNESS: Chidi Musa is a 59 year old year old female who presents to the clinic today with chief complaint(s) as above. Following up for: chronic pain, neck pain, right shoulder pain, low back pain Response to treatment recommendations: Lyrica and Tizanidine reduces pain levels but pain is still difficult to control. PCP prescribes Tramadol, medication is not as helpful as before. Pt stopped PT due affordability.This was helping the neck pain but not right shoulder pain. Pt scheduled for suprascapular nerve blk on 05/20/2025. She has seen Dr Overton recently and is not a surgical candidate unless able to reduce blood sugar. Increased low back pain for the past 3 months, pain radiates to both legs, not improved with conservative treatment Current primary concern/description: low back pain/aching, throbbing Pain Level: 10 /10 Better with: heat, positioning Worse with: walking or sitting for long Numbness/Tingling: [x] Yes [] No both legs/calves Bladder/bowel fxn change: [] Yes [x] No --- Review of Systems HENT: Negative. Eyes: Negative. Cardiovascular: Positive for claudication. Respiratory: Negative. Endocrine: Negative. Skin: Negative. Musculoskeletal: Positive for back pain, joint pain, muscle weakness, myalgias, neck pain and stiffness. Gastrointestinal: Negative. Genitourinary: Negative. Neurological: Positive for loss of balance and paresthesias. Psychiatric/Behaviora l: Positive for depression. The patient has insomnia. === HISTORY: ALLERGIES No Known Allergies PAST MEDICAL HISTORY Diagnosis Date Back pain [facility] Pain management Dr. Jorge follows Coronary artery disease 1 stent placed 09/08/19 Dr. Maldonado follows, started managaing care in 12/2023 Depression PCP manages Diabetes ([facility]) PCP manages Generalized anxiety disorder PCP manages GERD (gastroesophageal reflux disease) controlled with meds PCP follows Heart attack ([facility]) 05/2020 CABG X3-[place] Hypertension PCP manages/ controlled on meds Mixed hyperlipidemia controlled with meds PCP follows Neck pain Dr. Sheehan follows- reported falling off pickup truck bed 08/30/24 and has had problems since. muscle spasms down both arms/shoulders AVE (obstructive sleep apnea) sleep study completed 2023 [facility]. due to anxiety/depression noncompliant with cpap. unable to tolerate mask Other emphysema ([facility]) Maria T Seay N.P. pulmonology [place]. 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 [address] Quintana follows-aspirin/plavi x PAST SURGICAL HISTORY Procedure Laterality Date ADDTL NECK SPINE FUSION 06/30/2007 [place] ARTHROTOMY W/MENISCUS REPAIR KNEE Left 06/18/2007 CABG (3) VEIN GRAFTS AND ARTERIAL GRAFT(S) 05/2020 [facility] Rendon PAST SURGICAL HISTORY OF Left 09/02/2024 stent placement Iliac artery PAST SURGICAL HISTORY OF 09/08/2019 1 stent placed in heart REMOVAL GALLBLADDER 04/11/1986 [facility] TOTAL ABDOM HYSTERECTOMY 08/30/2005 at [facility] No family history on file. SOCIAL HISTORY[1] Current Outpatient Medications Medication Sig pregabalin (LYRICA) 150 mg capsule Take 1 capsule by mouth three times a day for 30 days. amLODIPine (NORVASC) 5 mg tablet Take 1 tablet by mouth once daily. methylPREDNISolone (MEDROL DOSE-PACK) 4 mg Dose-Pack A directed ergocalciferol 50,000 unit capsule (VITAMIN D2, DRISDOL) Take 1 capsule by mouth one time a week. losartan (COZAAR) 25 mg tablet Take 25 mg by mouth once daily. Tcbqw-2-NPV-EPA-Fish Oil (FISH OIL) 1,000 (120-180) mg cap Take 2 g by mouth once daily. Last dose 11/09 due to surgery JANUMET 50-1,000 mg per tablet Take 1 tablet by mouth two times a day with meals. ARIPiprazole (ABILIFY) 5 mg tablet Take 5 mg by mouth once daily. cariprazine (VRAYLAR) 1.5 mg capsule Take 1.5 mg by mouth once daily. JARDIANCE 10 mg tablet Take 10 mg by mouth once daily. fluconazole (DIFLUCAN) 100 mg tablet Take 100 mg by mouth as needed (yeast infections). fluticasone (FLONASE) 50 mcg/actuation nasal spray Use 2 Sprays in each nostril once daily. hydrOXYzine HCl (ATARAX) 25 mg tablet Take 25 mg by m (more content not included)... [facility] 05-18-2025 [facility] Telephone (IVAN) CHIDI MUSA ([id number]) 1965 F Date Time Provider Department 05/18/25 KOBI GARSIA During your visit today, we recorded the following information about you: Kobi Garsia PA-C 05/18/2025 10:01 AM Signed Can you ask pt to contact her PCP and notify her of her upcoming procedure in case her diabetic medications need adjusted after the procedure? *Im unable to message the PCP directly (not [facility]) and was unable to reach the provider on the number given Chrissie Sarah RN 05/18/2025 1:36 PM Signed Pt contacted as to below and acknowledges below as well as to contact [facility] with any updates, questions, or concerns. Chrissie Sarah RN May 18, 2025 1:36 PM Allergies As of Date: 05/18/2025 (No Known Allergies) Date Reviewed: 05/18/2025 Reviewed by: Palak Borjas LPN - Fully Assessed Prescriptions as of 05/18/2025 - MOUNJARO 2.5 mg/0.5 mL pen injector Inject 2.5 mg subcutaneously one time a week. PCP - pregabalin (LYRICA) 200 mg capsule Take 1 capsule by mouth three times a day for 30 days. - tiZANidine (ZANAFLEX) 4 mg tablet Take 1 tablet by mouth two times a day as needed. - amLODIPine (NORVASC) 5 mg tablet Take 1 tablet by mouth once daily. - methylPREDNISolone (MEDROL DOSE-PACK) 4 mg Dose-Pack A directed - ergocalciferol 50,000 unit capsule (VITAMIN D2, DRISDOL) Take 1 capsule by mouth one time a week. - losartan (COZAAR) 25 mg tablet Take 25 mg by mouth once daily. - Vnued-0-VRI-EPA-Fish Oil (FISH OIL) 1,000 (120-180) mg cap Take 2 g by mouth once daily. Last dose 11/09 due to surgery - JANUMET 50-1,000 mg per tablet Take 1 tablet by mouth two times a day with meals. - ARIPiprazole (ABILIFY) 5 mg tablet Take 5 mg by mouth once daily. - cariprazine (VRAYLAR) 1.5 mg capsule Take 1.5 mg by mouth once daily. - JARDIANCE 10 mg tablet Take 10 mg by mouth once daily. - fluconazole (DIFLUCAN) 100 mg tablet Take 100 mg by mouth as needed (yeast infections). - fluticasone (FLONASE) 50 mcg/actuation nasal spray Use 2 Sprays in each nostril once daily. - hydrOXYzine HCl (ATARAX) 25 mg tablet Take 25 mg by mouth once daily. - lidocaine (LIDODERM) 5 % Apply 1 Patch as directed every 12 hours. ARMS - aspirin 81 mg cap Take 81 mg by mouth once daily. Dr. Quintana manages. No instructions given - albuterol HFA (PROVENTIL HFA, VENTOLIN HFA) 90 mcg/actuation inhaler Inhale 1-2 Puffs as instructed every 6 hours as needed for wheezing/shortness of breath. - atorvastatin (LIPITOR) 40 mg tablet Take 40 mg by mouth once daily. - clopidogrel (PLAVIX) 75 mg tablet Take 75 mg by mouth once daily. Dr. Quintana manages - fluticasone-salmetero l (ADVAIR, WIXELA) 250-50 mcg/dose inhaler Inhale 1 Inhalation as instructed two times a day. - metoprolol succinate ER (TOPROL XL) 25 mg 24 hr tablet Take 25 mg by mouth once daily. - pantoprazole DR (PROTONIX) 40 mg tablet Take 40 mg by mouth every afternoon. Problem List As Of Date 05/18/2025 Noted Resolved Cervical spondylosis with myelopathy [M47.12] 09/28/2024 Chronic right shoulder pain [M25.511, G89.29] 11/10/2024 Long-term current use of opiate analgesic [Z79.*11/10/2024 Lumbosacral spondylosis without myelopathy [M47*11/10/2024 Preop testing [Z01.818] 11/26/2024 Cervical myelopathy (HCC) [G95.9] 11/30/2024 CAD (coronary artery disease) [I25.10] 11/30/2024 Sleep apnea [G47.30] 11/30/2024 History of coronary artery bypass graft [Z95.1] 11/30/2024 Stented coronary artery [Z95.5] 11/30/2024 HTN (hypertension) [I10] 11/30/2024 Diabetes mellitus, type 2 (HCC) [E11.9] 11/30/2024 Arthritis [M19.90] 11/30/2024 History of psychiatric care [Z92.89] 11/30/2024 Obesity, Class I, BMI 30-34.9 [E66.811] 11/30/2024 Other specified postprocedural states [Z98.890] 12/08/2024 S/P cervical spinal fusion [Z98.1] 12/08/2024 Encounter Status:Closed by CHRISSIE SARAH on 05/18/25 Normal [facility] .Auto Diffon 04-27-2025 Basophil, Absolute 0.2 10 3/mcL Normal 0.0-0.3 [facility] Comment on above: Performed By: #### T SH, GFR, CMP, A1C, ANEU, VIDH, CBC, LIPID, FT4, ADIFF ####[address] [place], [place] [address] Basophils/100 WBC (Bld) 1.9 % Normal 0.0-2.5 [facility] Comment on above: Performed By: #### T SH, GFR, CMP, A1C, ANEU, VIDH, CBC, LIPID, FT4, ADIFF ####[place] [address] [place], [place] [address] Eosinophil, Absolute 0.1 10 3/mcL Normal 0.0-0.7 [facility] Comment on above: Performed By: #### T SH, GFR, CMP, A1C, ANEU, VIDH, CBC, LIPID, FT4, ADIFF ####[facility] [place], [place] [address] Eosinophils/100 WBC (Bld) 1.4 % Normal 0.0-6.0 [facility] Comment on above: Performed By: #### T SH, GFR, CMP, A1C, ANEU, VIDH, CBC, LIPID, FT4, ADIFF ####[address] [place], [place] [address] Lymphocyte, Absolute 2.8 10 3/mcL Normal 0.9-4.3 [facility] Comment on above: Performed By: #### T SH, GFR, CMP, A1C, ANEU, VIDH, CBC, LIPID, FT4, ADIFF ####[facility] [place], [place] [address] Lymphocytes/100 WBC (Bld) 29.9 % Normal 20.0-40.0 [facility] Comment on above: Performed By: #### T SH, GFR, CMP, A1C, ANEU, VIDH, CBC, LIPID, FT4, ADIFF ####[address] [place], [place] [address] Monocyte, Absolute 0.8 10 3/mcL Normal 0.1-1.4 [facility] Comment on above: Performed By: #### T SH, GFR, CMP, A1C, ANEU, VIDH, CBC, LIPID, FT4, ADIFF ####[place] [address] [place], [place] [address] Monocytes/100 WBC (Bld) 8.1 % Normal 2.0-13.0 [facility] Comment on above: Performed By: #### T SH, GFR, CMP, A1C, ANEU, VIDH, CBC, LIPID, FT4, ADIFF ####[facility] [place], [place] [address] Neutrophils/100 WBC (Bld) 58.7 % Normal 50.0-75.0 [facility] Comment on above: Performed By: #### T SH, GFR, CMP, A1C, ANEU, VIDH, CBC, LIPID, FT4, ADIFF ####[facility] [place], [place] [address] .GFRon 04-27-2025 Estimated Glomerular Filtration Rate 100 ml/min/1.73sqm Normal [facility] Comment on above: Result Comment: Stages of Chronic Kidney Disease (CKD) Stage Description eGFR(ml/min/1.73 sq.m.) CKD 1 Normal kidney function or >=90 normal kindney function with possible kidney damage (ex. Proteinuria) CKD 2 Kidney damage with mild loss 60-89 of kidney function CKD 3a Mild to moderate loss of kidney 45-59 function CKD 3b Moderate to severe loss of 30-44 of kindey function CKD 4 Severe loss of kidney function 15-29 CKD 5 Kidney failure <15 Note: (go live 2024) the eGFR calculation was updated to the 2020 CKD-EPI creatinine equation without a race factor to calculate the eGFR results. Performed By: #### T SH, GFR, CMP, A1C, ANEU, VIDH, CBC, LIPID, FT4, ADIFF #### [facility] [address] [place], [place] [address] .NEUABSon 04-27-2025 Neutrophil, Absolute 5.4 10 3/mcL Normal 2.3-8.1 [facility] Comment on above: Performed By: #### T SH, GFR, CMP, A1C, ANEU, VIDH, CBC, LIPID, FT4, ADIFF ####[place] [id number] [place], [place] [address] A1Con 04-27-2025 Glucose [Mass/Vol] 206 mg/dL Normal [facility] Comment on above: Result Comment: Jacinta mated Average Glucose calculated by equation ((28.7xA1C)-46.7) Estimated average glucose (eAG) is a calculated value from Hemoglobin A1C and is shipping services sales representative of the average blood glucose level in the last 2-3 month period. Normal range: less than 114 mg/dL Performed By: #### T SH, GFR, CMP, A1C, ANEU, VIDH, CBC, LIPID, FT4, ADIFF #### [place] [address] HbA1c (Bld) [Mass fraction] 8.8 % High 4.3-6.4 [facility] Comment on above: Performed By: #### T SH, GFR, CMP, A1C, ANEU, VIDH, CBC, LIPID, FT4, ADIFF #### [place] [address] CBCon 04-27-2025 Erythrocyte distribution width (RBC) [Ratio] 14.4 % Normal 11.5-15.5 [facility] Comment on above: Performed By: #### T SH, GFR, CMP, A1C, ANEU, VIDH, CBC, LIPID, FT4, ADIFF #### [place] [address] Hematocrit (Bld) [Volume fraction] 47.1 % High 34.0-46.0 [facility] Comment on above: Performed By: #### T SH, GFR, CMP, A1C, ANEU, VIDH, CBC, LIPID, FT4, ADIFF #### [place] [address] Hgb 15.9 G/dL Normal 12.0-16.0 [facility] Comment on above: Performed By: #### T SH, GFR, CMP, A1C, ANEU, VIDH, CBC, LIPID, FT4, ADIFF #### [address] [address] MCH (RBC) [Entitic mass] 30.6 pg Normal 27.0-33.0 [facility] Comment on above: Performed By: #### T SH, GFR, CMP, A1C, ANEU, VIDH, CBC, LIPID, FT4, ADIFF #### [place] [address] MCHC 33.7 G/dL Normal 32.0-36.0 [facility] Comment on above: Performed By: #### T SH, GFR, CMP, A1C, ANEU, VIDH, CBC, LIPID, FT4, ADIFF #### [place] [address] MCV (RBC) [Entitic vol] 90.8 fL Normal 80.0-99.0 [facility] Comment on above: Performed By: #### T SH, GFR, CMP, A1C, ANEU, VIDH, CBC, LIPID, FT4, ADIFF #### [place] [address] Platelet 203 10 3/mcL Normal 150-450 [facility] Comment on above: Performed By: #### T SH, GFR, CMP, A1C, ANEU, VIDH, CBC, LIPID, FT4, ADIFF #### [place] [address] Platelet mean volume (Bld) [Entitic vol] 8.7 fL Normal 6.6-10.5 [facility] Comment on above: Performed By: #### T SH, GFR, CMP, A1C, ANEU, VIDH, CBC, LIPID, FT4, ADIFF #### [place] [address] RBC 5.19 10 6/mcL Normal 4.10-5.30 [facility] Comment on above: Performed By: #### T SH, GFR, CMP, A1C, ANEU, VIDH, CBC, LIPID, FT4, ADIFF #### [place] [id number] WBC 9.3 10 3/mcL Normal 4.5-10.8 [facility] Comment on above: Performed By: #### T SH, GFR, CMP, A1C, ANEU, VIDH, CBC, LIPID, FT4, ADIFF #### [address] [address] CMPon 04-27-2025 Albumin Level 3.5 G/dL Normal 3.4-4.8 [facility] Comment on above: Performed By: #### T SH, GFR, CMP, A1C, ANEU, VIDH, CBC, LIPID, FT4, ADIFF #### [address] [address] Albumin/Globulin [Mass ratio] 1.0 {ratio} Low 1.1-2.5 [facility] Comment on above: Performed By: #### T SH, GFR, CMP, A1C, ANEU, VIDH, CBC, LIPID, FT4, ADIFF #### [address] [address] ALP [Catalytic activity/Vol] 61 U/L Normal 40-135 [facility] Comment on above: Performed By: #### T SH, GFR, CMP, A1C, ANEU, VIDH, CBC, LIPID, FT4, ADIFF #### [address] [address] ALT [Catalytic activity/Vol] 19 U/L Normal 14-59 [facility] Comment on above: Performed By: #### T SH, GFR, CMP, A1C, ANEU, VIDH, CBC, LIPID, FT4, ADIFF #### [address] [address] AST [Catalytic activity/Vol] 13 U/L Normal 10-40 [facility] Comment on above: Performed By: #### T SH, GFR, CMP, A1C, ANEU, VIDH, CBC, LIPID, FT4, ADIFF #### [address] [address] Bili Total 0.9 mg/dL Normal 0.2-1.0 [facility] Comment on above: Result Comment: Use of this assay is not recommended for patients undergoing treatment with eltrombopag due to the potential for falsely elevated results. Performed By: #### T SH, GFR, CMP, A1C, ANEU, VIDH, CBC, LIPID, FT4, ADIFF #### [address] [address] BUN/Creatinine Ratio 23 ratio Normal 7-27 [facility] Comment on above: Performed By: #### T SH, GFR, CMP, A1C, ANEU, VIDH, CBC, LIPID, FT4, ADIFF #### [address] [address] Calcium [Mass/Vol] 9.4 mg/dL Normal 8.4-10.2 [facility] Comment on above: Performed By: #### T SH, GFR, CMP, A1C, ANEU, VIDH, CBC, LIPID, FT4, ADIFF #### [place] [address] Chloride [Moles/Vol] 105 mmol/L Normal 98-107 [facility] Comment on above: Performed By: #### T SH, GFR, CMP, A1C, ANEU, VIDH, CBC, LIPID, FT4, ADIFF #### [place] [address] CO2 [Moles/Vol] 28 mmol/L Normal 23-31 [facility] Comment on above: Performed By: #### T SH, GFR, CMP, A1C, ANEU, VIDH, CBC, LIPID, FT4, ADIFF #### [address] [address] Creatinine [Mass/Vol] 0.66 mg/dL Normal 0.51-0.95 [facility] Comment on above: Performed By: #### T SH, GFR, CMP, A1C, ANEU, VIDH, CBC, LIPID, FT4, ADIFF #### [address] [address] Electrolyte Balance 8.0 mEq/L Normal 4.0-15.[address] [facility] Comment on above: Performed By: #### T SH, GFR, CMP, A1C, ANEU, VIDH, CBC, LIPID, FT4, ADIFF #### [address] [address] Globulin 3.5 G/dL Normal 2.7-4.4 [facility] Comment on above: Performed By: #### T SH, GFR, CMP, A1C, ANEU, VIDH, CBC, LIPID, FT4, ADIFF #### [address] [address] Glucose [Mass/Vol] 153 mg/dL High 80-115 [facility] Comment on above: Performed By: #### T SH, GFR, CMP, A1C, ANEU, VIDH, CBC, LIPID, FT4, ADIFF #### [address] [address] Potassium [Moles/Vol] 3.9 mmol/L Normal 3.5-5.1 [facility] Comment on above: Performed By: #### T SH, GFR, CMP, A1C, ANEU, VIDH, CBC, LIPID, FT4, ADIFF #### [address] [address] Sodium [Moles/Vol] 141 mmol/L Normal 136-145 [facility] Comment on above: Performed By: #### T SH, GFR, CMP, A1C, ANEU, VIDH, CBC, LIPID, FT4, ADIFF #### [address] [address] Total Protein 7.0 G/dL Normal 6.4-8.2 [facility] Comment on above: Performed By: #### T SH, GFR, CMP, A1C, ANEU, VIDH, CBC, LIPID, FT4, ADIFF #### [address] [address] Urea nitrogen [Mass/Vol] 15 mg/dL Normal 7-18 [facility] Comment on above: Performed By: #### T SH, GFR, CMP, A1C, ANEU, VIDH, CBC, LIPID, FT4, ADIFF #### [address] [address] FT4on 04-27-2025 Free T4 [Mass/Vol] 1.18 ng/dL Normal 0.76-1.46 [facility] Comment on above: Performed By: #### T SH, GFR, CMP, A1C, ANEU, VIDH, CBC, LIPID, FT4, ADIFF #### [address] [address] LABORATORYOrdered By: SYSTEM SYSTEM on 04-27-2025 25-hydroxyvitamin D3 [Mass/Vol] 34.8 ng/mL Invalid Interpretation Code AO ADM SS Comment on above: Interpretive Data: I nterpretive Values Based on Total 25(OH) Vitamin D: Deficient <20 ng/mL Insufficient 20 - <30 ng/mL Sufficient 30-100 ng/mL Albumin BCP dye [Mass/Vol] 3.5 G/dL Normal 3.4 - 4.8 G/dL AO ADM SS Albumin/Globulin [Mass ratio] 1.0 {ratio} Low 1.1 - 2.5 ratio AO ADM SS ALP [Catalytic activity/Vol] 61 U/L Normal 40 - 135 U/L AO ADM SS ALT With P-5'-P [Catalytic activity/Vol] 19 U/L Normal 14 - 59 U/L AO ADM SS AST With P-5'-P [Catalytic activity/Vol] 13 U/L Normal 10 - 40 U/L AO ADM SS Basophils (Bld) [#/Vol] 0.2 103/mcL Normal 0.0 - 0.3 10^3/mcL AO Workflow SS Basophils/100 WBC (Bld) 1.9 % Normal 0.0 - 2.5 % AO Workflow SS Bilirubin [Mass/Vol] 0.9 mg/dL Normal 0.2 - 1 .0 mg/dL AO ADM SS Comment on above: Interpretive Data: U se of this assay is not recommended for patients undergoing treatment with eltrombopag due to the potential for falsely elevated results. Calcium [Mass/Vol] 9.4 mg/dL Normal 8.4 - 10. 2 mg/dL AO ADM SS Chloride [Moles/Vol] 105 mmol/L Normal 98 - 10 7 mmol/L AO ADM SS CO2 [Moles/Vol] 28 mmol/L Normal 23 - 31 mmol/L AO ADM SS Creatinine [Mass/Vol] 0.66 mg/dL Normal 0.51 - 0.95 mg/dL AO ADM SS Electrolyte Balance 8.0 mEq/L Normal 4.0 - 15 .0 mEq/L AO ADM SS Eosinophil, Absolute 0.1 103/mcL Normal 0.0 - 0 .7 10^3/mcL AO Workflow SS Eosinophils/100 WBC (Bld) 1.4 % Normal 0.0 - 6.0 % AO Workflow SS Erythrocyte distribution width (RBC) [Ratio] 14.4 % Normal 11.5 - 15.5 % AO Workflow SS Estimated Glomerular Filtration Rate 100 ml/min/1.73sqm Invalid Interpretation Code AO Chemistry S Comment on above: Interpretive Data: Stages of Chronic Kidney Disease (CKD) Stage Description eGFR(ml/min/1.73 sq.m.) CKD 1 Normal kidney function or >=90 normal kindney function with possible kidney damage (ex. Proteinuria) CKD 2 Kidney damage with mild loss 60-89 of kidney function CKD 3a Mild to moderate loss of kidney 45-59 function CKD 3b Moderate to severe loss of 30-44 of kindey function CKD 4 Severe loss of kidney function 15-29 CKD 5 Kidney failure <15 Note: (go live 2024) the eGFR calculation was updated to the 2020 CKD-EPI creatinine equation without a race factor to calculate the eGFR results. Free T4 [Mass/Vol] 1.18 ng/dL Normal 0.76 - 1. 46 ng/dL AO ADM SS Globulin 3.5 G/dL Normal 2.7 - 4.4 G/dL AO ADM SS Glucose [Mass/Vol] 153 mg/dL High 80 - 115 mg/dL AO ADM SS Glucose [Mass/Vol] 206 mg/dL Invalid Interpretation Code AO Chemistry S Comment on above: Interpretive Data: E stimated average glucose (eAG) is a calculated value from Hemoglobin A1C and is shipping services sales representative of the average blood glucose level in the last 2-3 month period. Normal range: less than 114 mg/dL HbA1c (Bld) [Mass fraction] 8.8 % High 4.3 - 6.4 % AO ADM SS Hematocrit (Bld) [Volume fraction] 47.1 % High 34.0 - 46.0 % AO Workflow SS Hemoglobin (Bld) [Mass/Vol] 15.9 G/dL Normal 12.0 - 16.0 G/dL AO Workflow SS Lymphocytes (Bld) [#/Vol] 2.8 103/mcL Normal 0.9 - 4.3 10^3/mcL AO Workflow SS Lymphocytes/100 WBC (Bld) 29.9 % Normal 20.0 - 40.0 % AO Workflow SS MCH (RBC) [Entitic mass] 30.6 pg Normal 27.0 - 33.0 pg AO Workflow SS MCHC 33.7 G/dL Normal 32.0 - 36.0 G/dL AO Workflow SS MCV (RBC) [Entitic vol] 90.8 fL Normal 80.0 - 99.0 fL AO Workflow SS Monocytes (Bld) [#/Vol] 0.8 103/mcL Normal 0.1 - 1.4 10^3/mcL AO Workflow SS Monocytes/100 WBC (Bld) 8.1 % Normal 2.0 - 13.0 % AO Workflow SS Neutrophils (Bld) [#/Vol] 5.4 103/mcL Normal 2.3 - 8.1 10^3/mcL AO Workflow SS Neutrophils/100 WBC (Bld) 58.7 % Normal 50.0 - 75.0 % AO Workflow SS Platelet mean volume (Bld) [Entitic vol] 8.7 fL Normal 6.6 - 10.5 fL AO Workflow SS Platelets (Bld) [#/Vol] 203 103/mcL Normal 150 - 450 10^3/mcL AO Workflow SS Potassium [Moles/Vol] 3.9 mmol/L Normal 3.5 - 5.1 mmol/L AO ADM SS Protein [Mass/Vol] 7.0 G/dL Normal 6.4 - 8.2 G/dL AO ADM SS RBC (Bld) [#/Vol] 5.19 106/mcL Normal 4.10 - 5.3 0 10^6/mcL AO Workflow SS Sodium [Moles/Vol] 141 mmol/L Normal 136 - 145 mmol/L AO ADM SS TSH Qn 1.74 m[IU]/L Normal 0.36 - 3.74 mcIU/mL AO ADM SS Urea nitrogen [Mass/Vol] 15 mg/dL Normal 7 - 18 mg/dL AO ADM SS Urea nitrogen/Creatinine [Mass ratio] 23 ratio Normal 7 - 27 ratio AO ADM SS WBC (Bld) [#/Vol] 9.3 103/mcL Normal 4.5 - 10.8 10^3/mcL AO Workflow SS LABORATORYOrdered By: Lali Ortiz on 04-27-2025 Cholesterol [Mass/Vol] 140 mg/dL Normal 0 - 200 mg/dL AO ADM SS Comment on above: Interpretive Data: C holesterol Reference Interval: Less than 200 Desirable 200-239 Borderline high risk 240 and above High risk Cholesterol in HDL [Mass/Vol] 33 mg/dL Low 40 - 60 mg/dL AO ADM SS Cholesterol in LDL [Mass/Vol] 57 mg/dL Normal 0 - 130 mg/dL AO ADM SS Triglyceride [Mass/Vol] 252 mg/dL High 0 - 150 mg/dL AO ADM SS Comment on above: Interpretive Data: T riglyceride Reference Interval: Less than 150 Normal 150-199 Borderline high risk 200-499 High risk 500 or higher Very high risk LIPIDon 04-27-2025 Cholesterol [Mass/Vol] 140 mg/dL Normal 0-200 [facility] Comment on above: Result Comment: Chol esterol Reference Interval: Less than 200 Desirable 200-239 Borderline high risk 240 and above High risk Performed By: #### T SH, GFR, CMP, A1C, ANEU, VIDH, CBC, LIPID, FT4, ADIFF #### [address] [address] Cholesterol in HDL [Mass/Vol] 33 mg/dL Low 40-60 [facility] Comment on above: Performed By: #### T SH, GFR, CMP, A1C, ANEU, VIDH, CBC, LIPID, FT4, ADIFF #### [address] [address] Cholesterol in LDL [Mass/Vol] 57 mg/dL Normal 0-130 [facility] Comment on above: Performed By: #### T SH, GFR, CMP, A1C, ANEU, VIDH, CBC, LIPID, FT4, ADIFF #### [address] [address] Triglyceride [Mass/Vol] 252 mg/dL High 0-150 [facility] Comment on above: Result Comment: Trig lyceride Reference Interval: Less than 150 Normal 150-199 Borderline high risk 200-499 High risk 500 or higher Very high risk Performed By: #### T SH, GFR, CMP, A1C, ANEU, VIDH, CBC, LIPID, FT4, ADIFF #### [place] [place], [place] [address] TSHon 04-27-2025 TSH Qn 1.74 m[IU]/L Normal 0.36-3.74 [facility] Comment on above: Performed By: #### T SH, GFR, CMP, A1C, ANEU, VIDH, CBC, LIPID, FT4, ADIFF #### [place] [address] [place], [place] [address] VIDHon 04-27-2025 Vit. D 25-Hydroxy 34.8 ng/mL Normal [facility] Comment on above: Result Comment: Inte rpretive Values Based on Total 25(OH) Vitamin D: Deficient <20 ng/mL Insufficient 20 - <30 ng/mL Sufficient 30-100 ng/mL Performed By: #### T SH, GFR, CMP, A1C, ANEU, VIDH, CBC, LIPID, FT4, ADIFF #### [address] [address] Cardiology Visit Reporton Cardiology Visit Report [facility] [address] [place] [address] OFFICE VISIT Date of Service: 04/01/25 MR#: [id number] Acct: [id number] Name: CHIDI MUSA Rep #: [id number] : 1965 Provider: NATACHA michael Age/Sex: 59/F [place] [facility] [place] [place] Status: Signed HPI HPI History of Present Illness Details: This is a 59-year-old lady who presents today for cardiovascular follow-up visit. She has a history of hypertension, hyperlipidemia, coronary artery disease with bypass surgery 06/01/2020-left internal mammary artery to the left anterior descending coronary artery with reverse saphenous vein, aortocoronary sequential graft [id number] to the posterior descending coronary artery and end-to-side to the distal obtuse marginal coronary artery. From a cardiac standpoint, the patient is doing well. She denies any palpitations, chest pain, pressure or heaviness. She does acknowledge SOB with exertion-walking. This is nothing new or worsening. She denies Orthopnea, and PND. She does not have bleeding issues; no blood in urine, stool, or nosebleeds. She does acknowledge a decrease in energy level-she is status post cervical surgery. She denies myalgias, or claudication. She does not have edema, or sudden weight gain. She does have occasional lightheadedness with quick positional changes. She denies dizziness, syncopal or near syncopal episodes, and headaches. Intake Vital Signs 01/27/25 08:23 04/01/25 10:56 Height 5 ft 2 in 5 ft 2 in Weight: 172 lb BMI 31.4 BP 118/71 Blood Pressure Location Lt brachial Position Sitting Respiration 18 Pulse 67 Pulse Source Monitor Intake Visit Reasons: 3 M FU Grinder Lap Required: No Accompanied by: Self Is patient in pain?: No Allergies No Known Allergies Allergy (Verified 04/01/25 11:11) Medications ???Medication ???Instructions ???Recorded ???Confirmed ???Type sitagliptin phosphate 50 1 ea PO BID 07/03/14 04/01/25 Hist ory mg-metformin 500 mg tablet (Janumet) atorvastatin 40 mg tablet 40 mg PO DAILY 05/12/24 04/01/25 H istory methocarbamol 500 mg tablet 500 mg PO QHS 05/12/24 04/01/25 Hi story pantoprazole 40 mg tablet,delayed 40 mg PO DAILY 05/12/24 04/01/25 History release albuterol sulfate 90 mcg/actuation 1 inh inhalation ONCE 05/20/24 0 04/01/25 History aerosol inhaler clopidogrel 75 mg tablet 75 mg PO QDAY 05/20/24 04/01/25 Hi story empagliflozin 10 mg tablet 10 mg PO DAILY 05/20/24 04/01/25 H istory (Jardiance) lidocaine 5 % topical patch 1 patch topical DAILY 05/20/2412/22 History aripiprazole 5 mg tablet 5 mg PO QDAY 08/11/24 04/01/25 His tory escitalopram oxalate 20 mg tablet 20 mg PO QDAY 08/11/24 04/01/25 H istory hydroxyzine HCl 25 mg tablet 25 mg PO TID 08/11/24 04/01/25 His tory aspirin 81 mg tablet,delayed 81 mg PO QDAY 09/16/24 04/01/25 Hi story release fluticasone 250 mcg-salmeterol 50 1 ea inhalation BID 10/01/2412/22 History mcg/dose blistr powdr for inhalation (Advair Diskus) fluticasone propionate 50 2 spray intranasal QDAY 10/01/24 0 04/01/25 History mcg/actuation nasal spray,suspension (Allergy Relief (fluticasone)) pregabalin 150 mg capsule (Lyrica) 150 mg PO TID 11/17/24 04/01/25 History amlodipine 5 mg tablet 5 mg PO QDAY #90 tabs 04/01/2512/22 Rx metoprolol succinate 50 mg 50 mg PO QDAY #90 tabs 04/01/25 Rx tablet,extended release 24 hr tramadol 50 mg tablet 100 mg PO Q6H 04/01/25 04/01/25 Hi story Have you fallen in the past year?: Yes (6-2 of them knees gave out, rest tripping) PFSH Medical History Ventral hernia Coronary artery disease [place] (generalized anxiety disorder) MDD (major depressive disorder) AVE (obstructive sleep apnea) Lumbar foraminal stenosis Hyperlipidemia Peripheral neuropathy Type 2 diabetes mellitus COPD (chronic obstructive pulmonary disease) Atherosclerosis of [place] arteries of extremities with rest pain, left leg Aortoiliac occlusive disease Surgical History H/O angioplasty S/P insertion of iliac artery stent ( 05/2022) History of carotid endarterectomy History of oophorectomy History of cardiac catheterization History of spinal surgery History of colonoscopy Presence of stent in coronary artery Hx of CABG History of hysterectomy History of cholecystectomy Family History Mother Heart disease Father Cancer Social History Smoking Status: Former smoker Tobacco: How many years used: 38 how long ago did patient quit smokin months (more content not included)... Normal [facility] CT CERVICAL SPINE WO IVCONon 03-10-2025 CT CERVICAL SPINE WO IVCON * * *Final Report* * * DATE OF EXAM: Mar 10 2025 8:51AM [facility] 0505 - CT CERVICAL SPINE WO IVCON / PROCEDURE REASON: Adverse effect of treatment, initial encounter * * * * Physician Interpretation * * * * EXAMINATION: CT CERVICAL SPINE WO IVCON CLINICAL HISTORY: Adverse effect of treatment, initial encounter TECHNIQUE: Spiral, high resolution axial unenhanced images were obtained from the skull base to the cervicothoracic junction with sagittal and coronal planar reconstructions. MQ: [id number] CT Radiation dose: Integrated CT Dose-Length Product (DLP) for this visit = 389 mGy*cm CT Dose Reduction Employed: Automated exposure control(AEC) and iterative recon COMPARISON: Same day MRI cervical spine, CT cervical spine 10/20/2024 and MRI cervical spine 09/21/2024 RESULT: Counting reference: Craniocervical junction. Anatomic Variants: None. Nanotechnician (topogram) images: Median sternotomy wires are present. Alignment: Mild straightening of the normal cervical lordosis. Minimal anterolisthesis of C5 upon C6. Craniocervical junction: Craniocervical junction is normal. Osseous structures/fracture: Postsurgical changes related to prior C6-C7 anterior cervical discectomy and interbody fusion. Postsurgical changes related to interval C5 laminectomy as well as C4-5 and C5-6 posterior instrumentation with lateral mass screws and vertical connecting rods. There is mild periprosthetic lucency surrounding both C6 lateral mass screws. No evidence of hardware fracture. Osseous fusion of the C6 and C7 vertebral bodies. No evidence of acute osseous fracture. Cervical soft tissues: Postsurgical changes of the prevertebral soft tissues at C6-C7. Postsurgical changes of the dorsal paraspinal soft tissues from C4-C6. Atherosclerotic calcifications at the carotid bulbs. Emphysematous changes of the lung apices. Degenerative changes: Calcified disc osteophyte complex at C5-6. Degenerative canal and neural foraminal stenoses are better characterized on same-day MRI cervical spine. Suspect mild to moderate bilateral neural foraminal stenosis at C5-6 due to uncovertebral and facet hypertrophy, right greater than left. Otherwise, no severe osseous neural foraminal stenosis. IMPRESSION: Interval postsurgical changes related to C5 posterior decompression and C4-C6 posterior instrumentation. Mild periprostatic lucency surrounding both C6 lateral mass screws, suspicious for hardware loosening. No evidence of hardware fracture. Stable postsurgical changes related to prior C6-7 ACDF. Canal and neural foraminal stenoses are better characterized on same-day MRI. Anatomic Variant: None. Assume 7 cervical vertebrae with counting from the craniocervical junction. 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: PILLO Transcribe Date/Time: Mar 10 2025 9:31A Dictated by : JAYLIN PETERSON MD This examination was interpreted and the report reviewed and electronically signed by: JAYLIN PETERSON MD on Mar 10 2025 9:40AM EST [id number] N Normal [facility] CT Cervical spine WO contras ton 03-10-2025 IMPRESSION: Interval postsurgical changes related to C5 posterior decompression and C4-C6 posterior instrumentation. Mild periprostatic lucency surrounding both C6 lateral mass screws, suspicious for hardware loosening. No evidence of hardware fracture. Stable postsurgical changes related to prior C6-7 ACDF. Canal and neural foraminal stenoses are better characterized on same-day MRI. Anatomic Variant: None. Assume 7 cervical vertebrae with counting from the craniocervical junction. 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: ROBERTS CHAPELJunior Transcribe Date/Time: Mar 10 2025 9:31A Dictated by : JAYLIN PETERSON MD This examination was interpreted and the report reviewed and electronically signed by: JAYLIN PETERSON MD on Mar 10 2025 9:40AM EST DIVISION OF RADIOLOGY * * *Final Report* * * DATE OF EXAM: Mar 10 2025 8:51AM [facility] 0505 - CT CERVICAL SPINE WO IVCON / PROCEDURE REASON: Adverse effect of treatment, initial encounter * * * * Physician Interpretation * * * * EXAMINATION: CT CERVICAL SPINE WO IVCON CLINICAL HISTORY: Adverse effect of treatment, initial encounter TECHNIQUE: Spiral, high resolution axial unenhanced images were obtained from the skull base to the cervicothoracic junction with sagittal and coronal planar reconstructions. MQ: [id number]_5 CT Radiation dose: Integrated CT Dose-Length Product (DLP) for this visit = 389 mGy*cm CT Dose Reduction Employed: Automated exposure control(AEC) and iterative recon COMPARISON: Same day MRI cervical spine, CT cervical spine 10/20/2024 and MRI cervical spine 09/21/2024 RESULT: Counting reference: Craniocervical junction. Anatomic Variants: None. Nanotechnician (topogram) images: Median sternotomy wires are present. Alignment: Mild straightening of the normal cervical lordosis. Minimal anterolisthesis of C5 upon C6. Craniocervical junction: Craniocervical junction is normal. Osseous structures/fracture: Postsurgical changes related to prior C6-C7 anterior cervical discectomy and interbody fusion. Postsurgical changes related to interval C5 laminectomy as well as C4-5 and C5-6 posterior instrumentation with lateral mass screws and vertical connecting rods. There is mild periprosthetic lucency surrounding both C6 lateral mass screws. No evidence of hardware fracture. Osseous fusion of the C6 and C7 vertebral bodies. No evidence of acute osseous fracture. Cervical soft tissues: Postsurgical changes of the prevertebral soft tissues at C6-C7. Postsurgical changes of the dorsal paraspinal soft tissues from C4-C6. Atherosclerotic calcifications at the carotid bulbs. Emphysematous changes of the lung apices. Degenerative changes: Calcified disc osteophyte complex at C5-6. Degenerative canal and neural foraminal stenoses are better characterized on same-day MRI cervical spine. Suspect mild to moderate bilateral neural foraminal stenosis at C5-6 due to uncovertebral and facet hypertrophy, right greater than left. Otherwise, no severe osseous neural foraminal stenosis. DIVISION OF RADIOLOGY Provider, [facility] - 03/10/2025 * * *Final Report* * * DATE OF EXAM: Mar 10 2025 8:51AM [facility] 0505 - CT CERVICAL SPINE WO IVCON / PROCEDURE REASON: Adverse effect of treatment, initial encounter * * * * Physician Interpretation * * * * EXAMINATION: CT CERVICAL SPINE WO IVCON CLINICAL HISTORY: Adverse effect of treatment, initial encounter TECHNIQUE: Spiral, high resolution axial unenhanced images were obtained from the skull base to the cervicothoracic junction with sagittal and coronal planar reconstructions. MQ: [id number] CT Radiation dose: Integrated CT Dose-Length Product (DLP) for this visit = 389 mGy*cm CT Dose Reduction Employed: Automated exposure control(AEC) and iterative recon COMPARISON: Same day MRI cervical spine, CT cervical spine 10/20/2024 and MRI cervical spine 09/21/2024 RESULT: Counting reference: Craniocervical junction. Anatomic Variants: None. Nanotechnician (topogram) images: Median sternotomy wires are present. Alignment: Mild straightening of the normal cervical lordosis. Minimal anterolisthesis of C5 upon C6. Craniocervical junction: Craniocervical junction is normal. Osseous structures/fracture: Postsurgical changes related to prior C6-C7 anterior cervical discectomy and interbody fusion. Postsurgical changes related to interval C5 laminectomy as well as C4-5 and C5-6 posterior instrumentation with lateral mass screws and vertical connecting rods. There is mild periprosthetic lucency surrounding both C6 lateral mass screws. No evidence of hardware fracture. Osseous fusion of the C6 and C7 vertebral bodies. No evidence of acute osseous fracture. Cervical soft tissues: Postsurgical changes of the prevertebral soft tissues at C6-C7. Postsurgical changes of the dorsal paraspinal soft tissues from C4-C6. Atherosclerotic calcifications at the carotid bulbs. Emphysematous changes of the lung apices. Degenerative changes: Calcified disc osteophyte complex at C5-6. Degenerative canal and neural foraminal stenoses are better characterized on same-day MRI cervical spine. Suspect mild to moderate bilateral neural foraminal stenosis at C5-6 due to uncovertebral and facet hypertrophy, right greater than left. Otherwise, no severe osseous neural foraminal stenosis. IMPRESSION IMPRESSION: Interval postsurgical changes related to C5 posterior decompression and C4-C6 posterior instrumentation. Mild periprostatic lucency surrounding both C6 lateral mass screws, suspicious for hardware loosening. No evidence of hardware fracture. Stable postsurgical changes related to prior C6-7 ACDF. Canal and neural foraminal stenoses are better characterized on same-day MRI. Anatomic Variant: None. Assume 7 cervical vertebrae with counting from the craniocervical junction. 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: PSCB Transcribe Date/Time: Mar 10 2025 9:31A Dictated by : JAYLIN PETERSON MD This examination was interpreted and the report reviewed and electronically signed by: JAYLIN PETERSON MD on Mar 10 2025 9:40AM EST [facility] CT Cervical spine WO contras tOrdered By: [facility] Provider on 03-10-2025 [facility] MR Cervical spine WO contras ton 03-10-2025 IMPRESSION: Post surgical changes of the cervical spine with improved canal patency at C5-6, as discussed. Hardware is better characterized on same day CT. No new high-grade canal stenosis. Suboptimal evaluation of the neural foramina at C5-6, although suspect mild to moderate persistent neural foraminal narrowing. Similar myelomalacia at C5-6. Anatomic Variant: None. Assume 7 cervical vertebrae with counting from the craniocervical junction. 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: PILLO Transcribe Date/Time: Mar 10 2025 9:21A Dictated by : JAYLIN PETERSON MD This examination was interpreted and the report reviewed and electronically signed by: JAYLIN PETERSON MD on Mar 10 2025 3:45PM [facility] DIVISION OF RADIOLOGY * * *Final Report* * * DATE OF EXAM: Mar 10 2025 8:25AM [facility] 0297 - MRI CERVICAL SPINE WO IVCON / PROCEDURE REASON: Adverse effect of treatment, initial encounter * * * * Physician Interpretation * * * * EXAMINATION: MRI CERVICAL SPINE WO IVCON CLINICAL HISTORY: Adverse effect of treatment, initial encounter TECHNIQUE: Routine cervical spine MR protocol without gadolinium. MQ: MRCSPWO_3 COMPARISON: CT cervical spine 10/20/2024 and MRI cervical spine 09/21/2024 RESULT: Counting reference: Craniocervical junction. Anatomic Variants: None. Localizer images: No additional findings Alignment: Straightening of the normal cervical lordosis. Craniocervical junction: Craniocervical junction is normal. Cord: Similar mild cord volume loss at C5-6 with probable punctate focus of myelomalacia within the right aspect of the cord in this region. No new cord signal abnormality. Bone marrow signal/fracture: Postsurgical changes related to prior C6-7 anterior cervical discectomy and interbody fusion, as well as interval C5 laminectomy/posterior decompression with C4-5 and C5-6 posterior instrumented fusion ( with lateral mass screws and vertical connecting rods). Hardware integrity is difficult to assess on the basis of MRI. No suspicious/pathologic marrow infiltrative process. Osseous fusion of C6 and C7 vertebral bodies, unchanged. Cervical soft tissues: Postsurgical changes of the dorsal paraspinal soft tissues from C4-C6. Post surgical changes of the prevertebral soft tissues at C6-7. C2-C3: Similar mild canal stenosis due to a disc bulge and dorsal ligamentum flavum infolding. No significant neural foraminal stenosis. C3-C4: Similar mild canal stenosis due to a disc bulge and dorsal ligamentum flavum infolding. The right neural foramen is patent. Mild left neural foraminal stenosis due to uncovertebral and facet hypertrophy. C4-C5: The canal is partially decompressed posteriorly. Mild effacement of the ventral CSF space due to a disc bulge. No significant neural foraminal stenosis. C5-C6: Postsurgical changes related to interval posterior decompression with improved canal patency. Persistent effacement of the ventral CSF space due to a disc bulge/extrusion slightly eccentric to the right with underlying osteophytes. There is similar ventral cord abutment. The dorsal CSF space is patent. The neural foramina are suboptimally assessed due to metallic artifact, although suspect mild to moderate bilateral neural foraminal stenosis, right greater than left, due to uncovertebral and facet hypertrophy. C6-C7: Mild canal stenosis due to osteophytic endplate ridging eccentric to the right as well as dorsal ligamentum flavum infolding. No significant neural foraminal stenosis. C7-T1: No significant canal or neural foraminal stenosis. DIVISION OF RADIOLOGY Provider, [facility] - 03/10/2025 * * *Final Report* * * DATE OF EXAM: Mar 10 2025 8:25AM [facility] 0297 - MRI CERVICAL SPINE WO IVCON / PROCEDURE REASON: Adverse effect of treatment, initial encounter * * * * Physician Interpretation * * * * EXAMINATION: MRI CERVICAL SPINE WO IVCON CLINICAL HISTORY: Adverse effect of treatment, initial encounter TECHNIQUE: Routine cervical spine MR protocol without gadolinium. MQ: [id number]_3 COMPARISON: CT cervical spine 10/20/2024 and MRI cervical spine 09/21/2024 RESULT: Counting reference: Craniocervical junction. Anatomic Variants: None. Localizer images: No additional findings Alignment: Straightening of the normal cervical lordosis. Craniocervical junction: Craniocervical junction is normal. Cord: Similar mild cord volume loss at C5-6 with probable punctate focus of myelomalacia within the right aspect of the cord in this region. No new cord signal abnormality. Bone marrow signal/fracture: Postsurgical changes related to prior C6-7 anterior cervical discectomy and interbody fusion, as well as interval C5 laminectomy/posterior decompression with C4-5 and C5-6 posterior instrumented fusion ( with lateral mass screws and vertical connecting rods). Hardware integrity is difficult to assess on the basis of MRI. No suspicious/pathologic marrow infiltrative process. Osseous fusion of C6 and C7 vertebral bodies, unchanged. Cervical soft tissues: Postsurgical changes of the dorsal paraspinal soft tissues from C4-C6. Post surgical changes of the prevertebral soft tissues at C6-7. C2-C3: Similar mild canal stenosis due to a disc bulge and dorsal ligamentum flavum infolding. No significant neural foraminal stenosis. C3-C4: Similar mild canal stenosis due to a disc bulge and dorsal ligamentum flavum infolding. The right neural foramen is patent. Mild left neural foraminal stenosis due to uncovertebral and facet hypertrophy. C4-C5: The canal is partially decompressed posteriorly. Mild effacement of the ventral CSF space due to a disc bulge. No significant neural foraminal stenosis. C5-C6: Postsurgical changes related to interval posterior decompression with improved canal patency. Persistent effacement of the ventral CSF space due to a disc bulge/extrusion slightly eccentric to the right with underlying osteophytes. There is similar ventral cord abutment. The dorsal CSF space is patent. The neural foramina are suboptimally assessed due to metallic artifact, although suspect mild to moderate bilateral neural foraminal stenosis, right greater than left, due to uncovertebral and facet hypertrophy. C6-C7: Mild canal stenosis due to osteophytic endplate ridging eccentric to the right as well as dorsal ligamentum flavum infolding. No significant neural foraminal stenosis. C7-T1: No significant canal or neural foraminal stenosis. IMPRESSION IMPRESSION: Post surgical changes of the cervical spine with improved canal patency at C5-6, as discussed. Hardware is better characterized on same day CT. No new high-grade canal stenosis. Suboptimal evaluation of the neural foramina at C5-6, although suspect mild to moderate persistent neural foraminal narrowing. Similar myelomalacia at C5-6. Anatomic Variant: None. Assume 7 cervical vertebrae with counting from the craniocervical junction. 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: PSCB Transcribe Date/Time: Mar 10 2025 9:21A Dictated by : JAYLIN PETERSON MD This examination was interpreted and the report reviewed and electronically signed by: JAYLIN PETERSON MD on Mar 10 2025 3:45PM [facility] MR Cervical spine WO contras tOrdered By: [facility] Provider on 03-10-2025 [facility] MRI CERVICAL SPINE WO IVCONo n 03-10-2025 MRI CERVICAL SPINE WO IVCON * * *Final Report* * * DATE OF EXAM: Mar 10 2025 8:25AM [facility] 0297 - MRI CERVICAL SPINE WO IVCON / PROCEDURE REASON: Adverse effect of treatment, initial encounter * * * * Physician Interpretation * * * * EXAMINATION: MRI CERVICAL SPINE WO IVCON CLINICAL HISTORY: Adverse effect of treatment, initial encounter TECHNIQUE: Routine cervical spine MR protocol without gadolinium. MQ: MRCSPWO_3 COMPARISON: CT cervical spine 10/20/2024 and MRI cervical spine 09/21/2024 RESULT: Counting reference: Craniocervical junction. Anatomic Variants: None. Localizer images: No additional findings Alignment: Straightening of the normal cervical lordosis. Craniocervical junction: Craniocervical junction is normal. Cord: Similar mild cord volume loss at C5-6 with probable punctate focus of myelomalacia within the right aspect of the cord in this region. No new cord signal abnormality. Bone marrow signal/fracture: Postsurgical changes related to prior C6-7 anterior cervical discectomy and interbody fusion, as well as interval C5 laminectomy/posterior decompression with C4-5 and C5-6 posterior instrumented fusion ( with lateral mass screws and vertical connecting rods). Hardware integrity is difficult to assess on the basis of MRI. No suspicious/pathologic marrow infiltrative process. Osseous fusion of C6 and C7 vertebral bodies, unchanged. Cervical soft tissues: Postsurgical changes of the dorsal paraspinal soft tissues from C4-C6. Post surgical changes of the prevertebral soft tissues at C6-7. C2-C3: Similar mild canal stenosis due to a disc bulge and dorsal ligamentum flavum infolding. No significant neural foraminal stenosis. C3-C4: Similar mild canal stenosis due to a disc bulge and dorsal ligamentum flavum infolding. The right neural foramen is patent. Mild left neural foraminal stenosis due to uncovertebral and facet hypertrophy. C4-C5: The canal is partially decompressed posteriorly. Mild effacement of the ventral CSF space due to a disc bulge. No significant neural foraminal stenosis. C5-C6: Postsurgical changes related to interval posterior decompression with improved canal patency. Persistent effacement of the ventral CSF space due to a disc bulge/extrusion slightly eccentric to the right with underlying osteophytes. There is similar ventral cord abutment. The dorsal CSF space is patent. The neural foramina are suboptimally assessed due to metallic artifact, although suspect mild to moderate bilateral neural foraminal stenosis, right greater than left, due to uncovertebral and facet hypertrophy. C6-C7: Mild canal stenosis due to osteophytic endplate ridging eccentric to the right as well as dorsal ligamentum flavum infolding. No significant neural foraminal stenosis. C7-T1: No significant canal or neural foraminal stenosis. IMPRESSION: Post surgical changes of the cervical spine with improved canal patency at C5-6, as discussed. Hardware is better characterized on same day CT. No new high-grade canal stenosis. Suboptimal evaluation of the neural foramina at C5-6, although suspect mild to moderate persistent neural foraminal narrowing. Similar myelomalacia at C5-6. Anatomic Variant: None. Assume 7 cervical vertebrae with counting from the craniocervical junction. 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: ROBERTS CHAPELJunior Transcribe Date/Time: Mar 10 2025 9:21A Dictated by : JAYLIN PETERSON MD This examination was interpreted and the report reviewed and electronically signed by: JAYLIN PETERSON MD on Mar 10 2025 3:45PM EST [id number] Normal [facility] No Panel Informationon 03-10 Radiology Study observation (narrative) [facility] Arterial study reportOrdered By: Alejandro Quintana on 03-04-2025 Noninvasive arteriosclerosis study report [facility] [address] [place] [id number] Lower Ext Art Exam w/ Exercise 03/04/25 0856 MR#: [id number] Acct: [id number] Name: CHIDI MUSA Rep #:[id number] : 1965 59 From: Alejandro Green Attending Dr: HEIDI Allen Stat us: REG CLI Ordering Dr: Marlee Araujo Date: Location: [facility] Sex: F C Admitted: Reason For Study Reason For Study: PVD Procedure A bilateral lower extremity continuous wave Doppler with analog waveform analysis,segmental pressures,and ankle brachial indexes with exercise. Left Segmental Pressures Left brachial= 144mmHg. Left posterior tibial artery = 137mmHg. Left dorsalis pedis artery = 160mmHg. Left digit = 118 mmHg. The left dorsalis pedis waveforms are triphasic. The left posterior tibialartery waveforms are triphasic. Right Segmental Pressures Right posterior tibial artery = 153mmHg. Right dorsalis pedis artery = 163mmHg. Right digit = 99 mmHg. The right dorsalis pedis waveforms are triphasic. The right posterior tibial artery waveforms are triphasic. Indices The right ankle brachial index by the dorsalis pedis is 1.13. The right ankle brachial index by the posterior tibial artery is 1.06. The right digital-brachial index is 0.69. The right post exercise ankle brachial index is 1.00. The left ankle brachial index by the dorsalis pedis is 1.11. The left ankle brachial index by the posterior tibial artery is 0.95. The left digital-brachial index is 0.82. The left post exercise ankle brachial index is 0.98. VL/Lower Ext Art Exam w/ Exercise Interpretation Summary Right TASIA 1.13, normal. Doppler/PVR waveforms of the right leg normal at rest. TBI diminished, pedal/digit disease vs spasm. Right lower extremity exhibits normal response to exercise. Left TASIA 1.11, normal. TBI and Doppler/PVR waveforms of the left leg normal at rest. Left lower extremity exhibits normal response to exercise. Ordering Physician: Marlee Araujo Referring Physician: Josephine Walter Performed By: Romeo Marie RVT 03/04/25 1601 Date _ Alejandro Quintana MD CC: NATACHA Walter; HEIDI Allen ~ Date Dictated: 03/04/25855 Date Transcribed: 03/04/25 1601 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: Signed [facility] Work Phone: Lower Ext Art Exam w/ Exerci mignon 03-04-2025 Lower Ext Art Exam w/ Exercise [facility] [place] [address] Lower Ext Art Exam w/ Exercise 03/04/2556 MR#: [id number] Acct: [id number] Name: CHIDI MUSA Rep #: [id number] : 1965 59 From: Alejandro Quintana MD Attending Dr: HEIDI Allen Status: REG CLI Ordering Dr: Marlee Araujo Date: 03/04/25 Location: [facility] Sex: F C Admitted: Reason For Study Reason For Study: PVD Procedure A bilateral lower extremity continuous wave Doppler with analog waveform analysis,segmental pressures,and ankle brachial indexes with exercise. Left Segmental Pressures Left brachial= 144mmHg. Left posterior tibial artery = 137mmHg. Left dorsalis pedis artery = 160mmHg. Left digit = 118 mmHg. The left dorsalis pedis waveforms are triphasic. The left posterior tibial artery waveforms are triphasic. Right Segmental Pressures Right posterior tibial artery = 153mmHg. Right dorsalis pedis artery = 163mmHg. Right digit = 99 mmHg. The right dorsalis pedis waveforms are triphasic. The right posterior tibial artery waveforms are triphasic. Indices The right ankle brachial index by the dorsalis pedis is 1.13. The right ankle brachial index by the posterior tibial artery is 1.06. The right digital-brachial index is 0.69. The right post exercise ankle brachial index is 1.00. The left ankle brachial index by the dorsalis pedis is 1.11. The left ankle brachial index by the posterior tibial artery is 0.95. The left digital-brachial index is 0.82. The left post exercise ankle brachial index is 0.98. VL/Lower Ext Art Exam w/ Exercise Interpretation Summary Right TASIA 1.13, normal. Doppler/PVR waveforms of the right leg normal at rest. TBI diminished, pedal/digit disease vs spasm. Right lower extremity exhibits normal response to exercise. Left TASIA 1.11, normal. TBI and Doppler/PVR waveforms of the left leg normal at rest. Left lower extremity exhibits normal response to exercise. Ordering Physician: Marlee Araujo Referring Physician: Josephine Walter Performed By: Romeo Marie RVT 03/04/25 1601 Date Alejandro Quintana MD CC: PATHOLOGY TECHNOLOGIST-C Josephine Walter; HEIDI Allen Date Dictated: 03/04/2556 Date Transcribed: 03/04/25 160 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: Signed Sam[facility] CNTHERAPYon 03-03-2025 CNTHERAPY OT/PT/Speech Visit (PTWS) CHIDI MUSA ([id number]) 1965 F Date Time Provider Department 03/03/25 7:45 AM VALENTE HERNANDEZ PTWS Date Time Provider Department Center 03/03/2025 7:45 AM [id number], COLIN PTWS [facility] Reason for Visit: Physical Therapy [503] PT Discharge [752] Primary Visit Diagnosis:Chronic right shoulder pain [M25.511, G89.29] Other Visit Diagnosis:S/P cervical spinal fusion [Z98.1] Allergies As of Date: 03/03/2025 (No Known Allergies) Date Reviewed: 02/23/2025 Reviewed by: Hina Torres MA - Fully Assessed Prescriptions as of 05/06/2025 - pregabalin (LYRICA) 150 mg capsule Take 1 capsule by mouth three times a day for 30 days. - amLODIPine (NORVASC) 5 mg tablet Take 1 tablet by mouth once daily. - methylPREDNISolone (MEDROL DOSE-PACK) 4 mg Dose-Pack A directed - ergocalciferol 50,000 unit capsule (VITAMIN D2, DRISDOL) Take 1 capsule by mouth one time a week. - losartan (COZAAR) 25 mg tablet Take 25 mg by mouth once daily. - Aoyxj-7-HOM-EPA-Fish Oil (FISH OIL) 1,000 (120-180) mg cap Take 2 g by mouth once daily. Last dose 11/09 due to surgery - JANUMET 50-1,000 mg per tablet Take 1 tablet by mouth two times a day with meals. - ARIPiprazole (ABILIFY) 5 mg tablet Take 5 mg by mouth once daily. - cariprazine (VRAYLAR) 1.5 mg capsule Take 1.5 mg by mouth once daily. - JARDIANCE 10 mg tablet Take 10 mg by mouth once daily. - fluconazole (DIFLUCAN) 100 mg tablet Take 100 mg by mouth as needed (yeast infections). - fluticasone (FLONASE) 50 mcg/actuation nasal spray Use 2 Sprays in each nostril once daily. - hydrOXYzine HCl (ATARAX) 25 mg tablet Take 25 mg by mouth once daily. - lidocaine (LIDODERM) 5 % Apply 1 Patch as directed every 12 hours. ARMS - aspirin 81 mg cap Take 81 mg by mouth once daily. Dr. Quintana manages. No instructions given - albuterol HFA (PROVENTIL HFA, VENTOLIN HFA) 90 mcg/actuation inhaler Inhale 1-2 Puffs as instructed every 6 hours as needed for wheezing/shortness of breath. - atorvastatin (LIPITOR) 40 mg tablet Take 40 mg by mouth once daily. - clopidogrel (PLAVIX) 75 mg tablet Take 75 mg by mouth once daily. Dr. Quintana manages - fluticasone-salmetero l (ADVAIR, WIXELA) 250-50 mcg/dose inhaler Inhale 1 Inhalation as instructed two times a day. - metoprolol succinate ER (TOPROL XL) 25 mg 24 hr tablet Take 25 mg by mouth once daily. - pantoprazole DR (PROTONIX) 40 mg tablet Take 40 mg by mouth every afternoon. Normal [facility] CNTHERAPYon 02-26-2025 CNTHERAPY OT/PT/Speech Visit (PTWS) CHIDI MUSA ([id number]) 1965 F Date Time Provider Department 02/26/25 10:30 AM SARA WISEMAN PTWS Date Time Provider Department [place] 02/26/2025 10:30 AM [id number], BRENT PTWS Vickie Sam Reason for Visit: Physical Therapy [503] PT Progress Note [4696] Primary Visit Diagnosis:Chronic right shoulder pain [M25.511, G89.29] Other Visit Diagnosis:S/P cervical spinal fusion [Z98.1] Allergies As of Date: 02/26/2025 (No Known Allergies) Date Reviewed: 02/23/2025 Reviewed by: Hina Torres MA - Fully Assessed Prescriptions as of 02/26/2025 - amLODIPine (NORVASC) 5 mg tablet Take 1 tablet by mouth once daily. - methylPREDNISolone (MEDROL DOSE-PACK) 4 mg Dose-Pack A directed - ergocalciferol 50,000 unit capsule (VITAMIN D2, DRISDOL) Take 1 capsule by mouth one time a week. - losartan (COZAAR) 25 mg tablet Take 25 mg by mouth once daily. - pregabalin (LYRICA) 150 mg capsule Take 1 capsule by mouth three times a day for 30 days. - tiZANidine (ZANAFLEX) 4 mg tablet Take 1 tablet by mouth every 6 hours as needed. - acetaminophen (TYLENOL) 500 mg tablet Take 2 tablets by mouth every 6 hours. - Exapt-3-UMT-EPA-Fish Oil (FISH OIL) 1,000 (120-180) mg cap Take 2 g by mouth once daily. Last dose 11/09 due to surgery - JANUMET 50-1,000 mg per tablet Take 1 tablet by mouth two times a day with meals. - ARIPiprazole (ABILIFY) 5 mg tablet Take 5 mg by mouth once daily. - cariprazine (VRAYLAR) 1.5 mg capsule Take 1.5 mg by mouth once daily. - JARDIANCE 10 mg tablet Take 10 mg by mouth once daily. - fluconazole (DIFLUCAN) 100 mg tablet Take 100 mg by mouth as needed (yeast infections). - fluticasone (FLONASE) 50 mcg/actuation nasal spray Use 2 Sprays in each nostril once daily. - hydrOXYzine HCl (ATARAX) 25 mg tablet Take 25 mg by mouth once daily. - lidocaine (LIDODERM) 5 % Apply 1 Patch as directed every 12 hours. ARMS - aspirin 81 mg cap Take 81 mg by mouth once daily. Dr. Quintana manages. No instructions given - albuterol HFA (PROVENTIL HFA, VENTOLIN HFA) 90 mcg/actuation inhaler Inhale 1-2 Puffs as instructed every 6 hours as needed for wheezing/shortness of breath. - atorvastatin (LIPITOR) 40 mg tablet Take 40 mg by mouth once daily. - clopidogrel (PLAVIX) 75 mg tablet Take 75 mg by mouth once daily. Dr. Quintana manages - fluticasone-salmetero l (ADVAIR, WIXELA) 250-50 mcg/dose inhaler Inhale 1 Inhalation as instructed two times a day. - metoprolol succinate ER (TOPROL XL) 25 mg 24 hr tablet Take 25 mg by mouth once daily. - pantoprazole DR (PROTONIX) 40 mg tablet Take 40 mg by mouth every afternoon. [facility] CNOVon 02-23-2025 CNOV Office Visit ([facility] ) CHIDI MUSA ([id number]) 1965 Date Time Provider Department 02/23/25 9:30 AM MAYANK SHEEHAN [facility] During your visit today, we recorded the following information about you: Weight Height 73.9 kg 1.6 m Hina Torres MA 02/23/2025 9:46 AM Signed 59 y/o female presents to office for a routine post op appointment. Pain is radiating into the right shoulder. Xrays obtained today. Mayank Sheehan MD 02/23/2025 9:46 AM Signed Mayank Sheehan MD [facility] - Orthopaedic Spine Surgeon [address] [facility], [address], [facility] [address], [place] [address] Phone: [phone] FAX: [phone] Spine Surgery Post-op Follow-up Service Date: 02/23/2025 Surgery Date: 11/30/2024 Surgery(ies): C4-6 PSF, C5 laminectomy Pre-operative Symptoms: Cervical spine pain with radiation to bilateral upper extremities, bilateral upper extremity weakness, gait imbalance, dexterity issues HPI: Chidi Musa is seen for 3-month post operative follow up. Pain in cervical spine is can be improved significantly. She has severe pain in the right shoulder. This is her main complaint today. Pain only radiates down the arm to the level of the elbow with range of motion of the right shoulder. She is unable to sleep on the right side. Any range of motion of the right shoulder causes her severe pain. She did have an injection completed which she feels worsened her pain. Also states the range of motion of the shoulder has been worsening. She did receive a second opinion regarding the right shoulder from [facility] who recommended proceeding with surgery after she was cleared from spinal surgery standpoint. ALLERGIES No Known Allergies Current Outpatient Medications Medication Sig Dispense Refill amLODIPine (NORVASC) 5 mg tablet Take 1 tablet by mouth once daily. methylPREDNISolone (MEDROL DOSE-PACK) 4 mg Dose-Pack A directed ergocalciferol 50,000 unit capsule (VITAMIN D2, DRISDOL) Take 1 capsule by mouth one time a week. losartan (COZAAR) 25 mg tablet Take 25 mg by mouth once daily. pregabalin (LYRICA) 150 mg capsule Take 1 capsule by mouth three times a day for 30 days. 90 capsule 2 tiZANidine (ZANAFLEX) 4 mg tablet Take 1 tablet by mouth every 6 hours as needed. 30 tablet 1 acetaminophen (TYLENOL) 500 mg tablet Take 2 tablets by mouth every 6 hours. 720 tablet 0 JANUMET 50-1,000 mg per tablet Take 1 tablet by mouth two times a day with meals. ARIPiprazole (ABILIFY) 5 mg tablet Take 5 mg by mouth once daily. JARDIANCE 10 mg tablet Take 10 mg by mouth once daily. fluconazole (DIFLUCAN) 100 mg tablet Take 100 mg by mouth as needed (yeast infections). fluticasone (FLONASE) 50 mcg/actuation nasal spray Use 2 Sprays in each nostril once daily. hydrOXYzine HCl (ATARAX) 25 mg tablet Take 25 mg by mouth once daily. lidocaine (LIDODERM) 5 % Apply 1 Patch as directed every 12 hours. ARMS aspirin 81 mg cap Take 81 mg by mouth once daily. Dr. Quintana manages. No instructions given albuterol HFA (PROVENTIL HFA, VENTOLIN HFA) 90 mcg/actuation inhaler Inhale 1-2 Puffs as instructed every 6 hours as needed for wheezing/shortness of breath. atorvastatin (LIPITOR) 40 mg tablet Take 40 mg by mouth once daily. clopidogrel (PLAVIX) 75 mg tablet Take 75 mg by mouth once daily. Dr. Quintana manages fluticasone-salmetero l (ADVAIR, WIXELA) 250-50 mcg/dose inhaler Inhale 1 Inhalation as instructed two times a day. metoprolol succinate ER (TOPROL XL) 25 mg 24 hr tablet Take 25 mg by mouth once daily. (Patient taking differently: Take 50 mg by mouth once daily.) pantoprazole DR (PROTONIX) 40 mg tablet Take 40 mg by mouth every afternoon. Fcgkx-3-BQO-EPA-Fish Oil (FISH OIL) 1,000 (120-180) mg cap Take 2 g by mouth once daily. Last dose 11/09 due to surgery cariprazine (VRAYLAR) 1.5 mg capsule Take 1.5 mg by mouth once daily. No current facility-administered medications for this visit. Physical Examination: Vital Signs: Ht 160 cm (5' 3) Wt 73.9 kg (163 lb) BMI 28.87 kg/m? General Appearance: Well nourished, well developed, and no apparent distress. Incision: Clean, dry, and intact. No active drainage. No erythema. Cervical collar in place in appropriate position. Sensory: Sensation intact to light touch in C5-T1 and L1-S1 dermatomes. Motor: Upper Extremities Right Left Deltoid (C5) 3* 5 Biceps (C6) 5 5 Triceps (C7) 5 5 First Assistant (C8) 5 5 Interossei (T1) 5 5 Lower Extremities Right Left Psoas (L2) 5 5 Quadriceps (L3) 5 5 Dorsiflexion (L4) 5 5 EHL (L5) 5 5 Plantarflexion (S1) 5 5 *Severely limited secondary to pain. Gait: Smooth reciprocal gait. Long Tract Signs: No clonus. Ruben's present bilaterally. Reflexes: Symmetric, brisk bilateral patellar and Achilles reflexes. Right Shoulder: Severe pain wi (more content not included)... [facility] CNTHERAPYon 02-18-2025 CNTHERAPY OT/PT/Speech Visit (PTWS) CHIDI MUSA ([id number]) 1965 F Date Time Provider Department 02/18/25 10:00 AM SARA WISEMAN [facility] Date Time Provider Department Center 02/18/2025 10:00 AM [id number], BRENT PTWS Vickie Sam Reason for Visit: Physical Therapy [503] Primary Visit Diagnosis:Chronic right shoulder pain [M25.511, G89.29] Other Visit Diagnosis:S/P cervical spinal fusion [Z98.1] Allergies As of Date: 02/18/2025 (No Known Allergies) Date Reviewed: 02/16/2025 Reviewed by: Palak Borjas LPN - Fully Assessed Prescriptions as of 02/18/2025 - amLODIPine (NORVASC) 5 mg tablet Take 1 tablet by mouth once daily. - methylPREDNISolone (MEDROL DOSE-PACK) 4 mg Dose-Pack A directed - ergocalciferol 50,000 unit capsule (VITAMIN D2, DRISDOL) Take 1 capsule by mouth one time a week. - losartan (COZAAR) 25 mg tablet Take 25 mg by mouth once daily. - pregabalin (LYRICA) 150 mg capsule Take 1 capsule by mouth three times a day for 30 days. - tiZANidine (ZANAFLEX) 4 mg tablet Take 1 tablet by mouth every 6 hours as needed. - acetaminophen (TYLENOL) 500 mg tablet Take 2 tablets by mouth every 6 hours. - Hscwu-7-AXX-EPA-Fish Oil (FISH OIL) 1,000 (120-180) mg cap Take 2 g by mouth once daily. Last dose 11/09 due to surgery - JANUMET 50-1,000 mg per tablet Take 1 tablet by mouth two times a day with meals. - ARIPiprazole (ABILIFY) 5 mg tablet Take 5 mg by mouth once daily. - cariprazine (VRAYLAR) 1.5 mg capsule Take 1.5 mg by mouth once daily. - JARDIANCE 10 mg tablet Take 10 mg by mouth once daily. - fluconazole (DIFLUCAN) 100 mg tablet Take 100 mg by mouth as needed (yeast infections). - fluticasone (FLONASE) 50 mcg/actuation nasal spray Use 2 Sprays in each nostril once daily. - hydrOXYzine HCl (ATARAX) 25 mg tablet Take 25 mg by mouth once daily. - lidocaine (LIDODERM) 5 % Apply 1 Patch as directed every 12 hours. ARMS - aspirin 81 mg cap Take 81 mg by mouth once daily. Dr. Quintana manages. No instructions given - albuterol HFA (PROVENTIL HFA, VENTOLIN HFA) 90 mcg/actuation inhaler Inhale 1-2 Puffs as instructed every 6 hours as needed for wheezing/shortness of breath. - atorvastatin (LIPITOR) 40 mg tablet Take 40 mg by mouth once daily. - clopidogrel (PLAVIX) 75 mg tablet Take 75 mg by mouth once daily. Dr. Quintana manages - fluticasone-salmetero l (ADVAIR, WIXELA) 250-50 mcg/dose inhaler Inhale 1 Inhalation as instructed two times a day. - metoprolol succinate ER (TOPROL XL) 25 mg 24 hr tablet Take 25 mg by mouth once daily. - pantoprazole DR HilarioPROTONIX) 40 mg tablet Take 40 mg by mouth every afternoon. [facility] XR CERVICAL 4V AP/LAT/FLX/EX Ton 02-18-2025 XR CERVICAL 4V AP/LAT/FLX/EXT * * *Final Report* * * DATE OF EXAM: Feb 18 2025 11:26AM WRX [id number] - XR CERVICAL 4V AP/LAT/FLX/EXT / PROCEDURE REASON: S/P cervical spinal fusion * * * * Physician Interpretation * * * * EXAMINATION / TECHNIQUE: XR CERVICAL 4V AP/LAT/FLX/EXT HISTORY: cervical spinal fusion done 11/30/2024, follow-up. S/P cervical spinal fusion COMPARISON: 01/12/25. RESULT: See Impression IMPRESSION: Counting reference: Craniocervical junction. Anatomic Variants: None. Anterior and posterior fusion constructs are intact and unchanged in position. Vertebral body heights and sagittal alignment are maintained. Prevertebral soft tissues are normal. No dynamic instability. 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: ROBERTS CHAPELJunior Transcribe Date/Time: Feb 23 2025 8:10P Dictated by : JANELLE HORNER MD This examination was interpreted and the report reviewed and electronically signed by: JANELLE HORNER MD on Feb 23 2025 8:11PM EST [id number] [facility] James 02-17-[address] [facility] Telephone ([facility]) CHIDI MUSA ([id number]) 1965 F Date Time Provider Department 02/17/25 MAYANK SHEEHAN [facility] During your visit today, we recorded the following information about you: Isaiah Quintana 02/17/2025 3:41 PM Signed Spoke to patient I requested her to have x-rays done before seeing Dr Sheehan on 02-23-25, she will do so Allergies As of Date: 02/17/2025 (No Known Allergies) Date Reviewed: 02/16/2025 Reviewed by: Palak Borjas LPN - Fully Assessed Prescriptions as of 02/17/2025 - amLODIPine (NORVASC) 5 mg tablet Take 1 tablet by mouth once daily. - methylPREDNISolone (MEDROL DOSE-PACK) 4 mg Dose-Pack A directed - ergocalciferol 50,000 unit capsule (VITAMIN D2, DRISDOL) Take 1 capsule by mouth one time a week. - losartan (COZAAR) 25 mg tablet Take 25 mg by mouth once daily. - pregabalin (LYRICA) 150 mg capsule Take 1 capsule by mouth three times a day for 30 days. - tiZANidine (ZANAFLEX) 4 mg tablet Take 1 tablet by mouth every 6 hours as needed. - acetaminophen (TYLENOL) 500 mg tablet Take 2 tablets by mouth every 6 hours. - Tcozx-6-KSZ-EPA-Fish Oil (FISH OIL) 1,000 (120-180) mg cap Take 2 g by mouth once daily. Last dose 11/09 due to surgery - JANUMET 50-1,000 mg per tablet Take 1 tablet by mouth two times a day with meals. - ARIPiprazole (ABILIFY) 5 mg tablet Take 5 mg by mouth once daily. - cariprazine (VRAYLAR) 1.5 mg capsule Take 1.5 mg by mouth once daily. - JARDIANCE 10 mg tablet Take 10 mg by mouth once daily. - fluconazole (DIFLUCAN) 100 mg tablet Take 100 mg by mouth as needed (yeast infections). - fluticasone (FLONASE) 50 mcg/actuation nasal spray Use 2 Sprays in each nostril once daily. - hydrOXYzine HCl (ATARAX) 25 mg tablet Take 25 mg by mouth once daily. - lidocaine (LIDODERM) 5 % Apply 1 Patch as directed every 12 hours. ARMS - aspirin 81 mg cap Take 81 mg by mouth once daily. Dr. Quintana manages. No instructions given - albuterol HFA (PROVENTIL HFA, VENTOLIN HFA) 90 mcg/actuation inhaler Inhale 1-2 Puffs as instructed every 6 hours as needed for wheezing/shortness of breath. - atorvastatin (LIPITOR) 40 mg tablet Take 40 mg by mouth once daily. - clopidogrel (PLAVIX) 75 mg tablet Take 75 mg by mouth once daily. Dr. Quintana manages - fluticasone-salmetero l (ADVAIR, WIXELA) 250-50 mcg/dose inhaler Inhale 1 Inhalation as instructed two times a day. - metoprolol succinate ER (TOPROL XL) 25 mg 24 hr tablet Take 25 mg by mouth once daily. - pantoprazole DR (PROTONIX) 40 mg tablet Take 40 mg by mouth every afternoon. Problem List As Of Date 02/17/2025 Noted Resolved Cervical spondylosis with myelopathy [M47.12] 09/28/2024 Chronic right shoulder pain [M25.511, G89.29] 11/10/2024 Long-term current use of opiate analgesic [Z79.*11/10/2024 Lumbosacral spondylosis without myelopathy [M47*11/10/2024 Preop testing [Z01.818] 11/26/2024 Cervical myelopathy (HCC) [G95.9] 11/30/2024 CAD (coronary artery disease) [I25.10] 11/30/2024 Sleep apnea [G47.30] 11/30/2024 History of coronary artery bypass graft [Z95.1] 11/30/2024 Stented coronary artery [Z95.5] 11/30/2024 HTN (hypertension) [I10] 11/30/2024 Diabetes mellitus, type 2 (HCC) [E11.9] 11/30/2024 Arthritis [M19.90] 11/30/2024 History of psychiatric care [Z92.89] 11/30/2024 Obesity, Class I, BMI 30-34.9 [E66.811] 11/30/2024 Other specified postprocedural states [Z98.890] 12/08/2024 S/P cervical spinal fusion [Z98.1] 12/08/2024 Encounter Status:Closed by ISAIAH QUINTANA on 02/17/25 [facility] Drea 02-16-2025 CNOV Office Visit ([facility] ) CHIDI MUSA ([id number]) 1965 F Date Time Provider Department 02/16/25 8:30 AM KOBI GARSIA During your visit today, we recorded the following information about you: Pulse Respiration Blood pressure Weight 77/minute 16/minute 125/68 74.4 kg Height 1.575 m Palak Borjas LPN 02/16/2025 9:07 AM Signed Neck - Less radiating pain since going to PT (still going), feels like a knot in neck. Pain goes into rt arm Had steroid injection from Dr Overton, pain worse. Presently on oral steroids. Uses hemp cream Shoulder- right - pain goes into back. Pain feels deep. Kobi Garsia PA-C 02/16/2025 9:07 AM Signed PATIENT: Chidi Musa : 1965 DATE OF SERVICE: 02/16/2025 REFERRING PRACTITIONER: Donny PRIMARY CARE PROVIDER: Josephine Walter SINK MAKER, SINK MAKER CHIEF COMPLAINT: Patient presents with: Pain: Shoulder - right Neck HISTORY OF PRESENT ILLNESS: Chidi Musa is a 59 year old year old female who presents to the clinic today with chief complaint(s) as above. Following up for: chronic pain, right shoulder pain, neck pain, low back pain Response to treatment recommendations: Lyrica and Tizanidine help dull the pain. Pt continues with PT which is helping the neck pain but not right shoulder pain Current primary concern/description: right shoulder pain/aching, burning, dull Pain Level: 10 /10 Better with: medication, reposition, rest Worse with: at night, movement of right shoulder Numbness/Tingling: [] Yes [x] No Bladder/bowel fxn change: [] Yes [x] No --- Review of Systems Constitutional: Negative. HENT: Negative. Eyes: Negative. Cardiovascular: Negative. Respiratory: Negative. Endocrine: Negative. Skin: Negative. Musculoskeletal: Positive for back pain, joint pain, muscle weakness, myalgias, neck pain and stiffness. Gastrointestinal: Negative. Genitourinary: Negative. Neurological: Negative. Psychiatric/Behaviora l: Positive for depression. The patient is nervous/anxious. === HISTORY: ALLERGIES No Known Allergies PAST MEDICAL HISTORY Diagnosis Date Back pain [facility] Pain management Dr. Jorge follows Coronary artery disease 1 stent placed 09/08/19 Dr. Maldonado follows, started managaing care in 12/2023 Depression PCP manages Diabetes ([facility]) PCP manages Generalized anxiety disorder PCP manages GERD (gastroesophageal reflux disease) controlled with meds PCP follows Heart attack ([facility]) 05/2020 CABG X3-[place] Hypertension PCP manages/ controlled on meds Mixed hyperlipidemia controlled with meds PCP follows Neck pain Dr. Sheehan follows- reported falling off pickup truck bed 08/30/24 and has had problems since. muscle spasms down both arms/shoulders AVE (obstructive sleep apnea) sleep study completed 2023 [facility]. due to anxiety/depression noncompliant with cpap. unable to tolerate mask Other emphysema ([facility]) Maria T Seay N.P. pulmonology [place]. 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 [address] Quintana follows-aspirin/plavi x PAST SURGICAL HISTORY Procedure Laterality Date ADDTL NECK SPINE FUSION 06/30/2007 [place] ARTHROTOMY W/MENISCUS REPAIR KNEE Left 06/18/2007 CABG (3) VEIN GRAFTS AND ARTERIAL GRAFT(S) 05/2020 [place]-Dr. Rendon PAST SURGICAL HISTORY OF Left 09/02/2024 stent placement Iliac artery PAST SURGICAL HISTORY OF 09/08/2019 1 stent placed in heart REMOVAL GALLBLADDER 04/11/1986 [facility] TOTAL ABDOM HYSTERECTOMY 08/30/2005 at [facility] No family history on file. Social History Tobacco Use Smoking status: Former Current packs/day: 1.00 Average packs/day: 1 pack/day for 38.0 years (38.0 ttl pk-yrs) Types: Cigarettes Smokeless tobacco: Never Vaping Use Vaping status: Former Substance Use Topics Alcohol use: Yes Drug use: Not Currently Types: Marijuana Comment: occasionally Current Outpatient Medications Medication Sig amLODIPine (NORVASC) 5 mg tablet Take 1 tablet by mouth once daily. methylPREDNISolone (MEDROL DOSE-PACK) 4 mg Dose-Pack A directed ergocalciferol 50,000 unit capsule (VITAMIN D2, DRISDOL) Take 1 capsule by mouth one time a week. losartan (COZAAR) 25 mg tablet Take 25 mg by mouth once daily. tiZANidine (ZANAFLEX) 4 mg tablet TAKE 1 TABLET BY MOUTH EVERY 6 HOURS NEEDED acetaminophen (TYLENOL) 500 mg tablet Take 2 tablets by mouth every 6 hours. JANUMET 50-1,000 mg per tablet Take 1 tablet by mouth two times a day with meals. ARIPiprazole (ABILIFY) 5 mg tablet Take 5 mg by mouth once daily. JARDIANCE 10 mg tablet Take 10 mg by mouth once daily. fluconazole (DIFLUCAN) 100 mg tablet Take 100 mg by mouth as needed (yeast infections). fluticasone (FLONASE) 50 mcg/actuation nasal spray Use (more content not included)... [facility] 02-16-2025 [facility] Telephone ([facility]) CHIDI MUSA ([id number]) 1965 F Date Time Provider Department 02/16/25 KOBI GARSIA During your visit today, we recorded the following information about you: Neelam Manuel RN 02/16/2025 1:18 PM Signed Pt called and LM stating that her PT will do the dry needling. She needs order faxed to [phone]. Neelam Manuel RN February 16, 2025 1:17 PM Kobi Garsia PA-C 02/16/2025 5:11 PM Signed Dry needling ordered Phillip Haji RN 02/17/2025 1:56 PM Signed Lmom to call office Phillip Haji RN February 17, 2025 1:55 PM Phillip Haji RN 02/17/2025 2:43 PM Signed Pt notified Phillip Haji RN February 17, 2025 2:43 PM Allergies As of Date: 02/16/2025 (No Known Allergies) Date Reviewed: 02/16/2025 Reviewed by: Palak Borjas LPN - Fully Assessed Reason for Visit: Patient Update [1234] Primary Visit Diagnosis:Myofascial pain [M79.18] Order(s):CONSULT TO PHYSICAL THERAPY [1300] Order #: [id number]: 1 FUTURE Prescriptions as of 02/17/2025 - amLODIPine (NORVASC) 5 mg tablet Take 1 tablet by mouth once daily. - methylPREDNISolone (MEDROL DOSE-PACK) 4 mg Dose-Pack A directed - ergocalciferol 50,000 unit capsule (VITAMIN D2, DRISDOL) Take 1 capsule by mouth one time a week. - losartan (COZAAR) 25 mg tablet Take 25 mg by mouth once daily. - pregabalin (LYRICA) 150 mg capsule Take 1 capsule by mouth three times a day for 30 days. - tiZANidine (ZANAFLEX) 4 mg tablet Take 1 tablet by mouth every 6 hours as needed. - acetaminophen (TYLENOL) 500 mg tablet Take 2 tablets by mouth every 6 hours. - Ingxj-2-XKG-EPA-Fish Oil (FISH OIL) 1,000 (120-180) mg cap Take 2 g by mouth once daily. Last dose 11/09 due to surgery - JANUMET 50-1,000 mg per tablet Take 1 tablet by mouth two times a day with meals. - ARIPiprazole (ABILIFY) 5 mg tablet Take 5 mg by mouth once daily. - cariprazine (VRAYLAR) 1.5 mg capsule Take 1.5 mg by mouth once daily. - JARDIANCE 10 mg tablet Take 10 mg by mouth once daily. - fluconazole (DIFLUCAN) 100 mg tablet Take 100 mg by mouth as needed (yeast infections). - fluticasone (FLONASE) 50 mcg/actuation nasal spray Use 2 Sprays in each nostril once daily. - hydrOXYzine HCl (ATARAX) 25 mg tablet Take 25 mg by mouth once daily. - lidocaine (LIDODERM) 5 % Apply 1 Patch as directed every 12 hours. ARMS - aspirin 81 mg cap Take 81 mg by mouth once daily. Dr. Quintana manages. No instructions given - albuterol HFA (PROVENTIL HFA, VENTOLIN HFA) 90 mcg/actuation inhaler Inhale 1-2 Puffs as instructed every 6 hours as needed for wheezing/shortness of breath. - atorvastatin (LIPITOR) 40 mg tablet Take 40 mg by mouth once daily. - clopidogrel (PLAVIX) 75 mg tablet Take 75 mg by mouth once daily. Dr. Quintana manages - fluticasone-salmetero l (ADVAIR, WIXELA) 250-50 mcg/dose inhaler Inhale 1 Inhalation as instructed two times a day. - metoprolol succinate ER (TOPROL XL) 25 mg 24 hr tablet Take 25 mg by mouth once daily. - pantoprazole DR (PROTONIX) 40 mg tablet Take 40 mg by mouth every afternoon. Problem List As Of Date 02/16/2025 Noted Resolved Cervical spondylosis with myelopathy [M47.12] 09/28/2024 Chronic right shoulder pain [M25.511, G89.29] 11/10/2024 Long-term current use of opiate analgesic [Z79.*11/10/2024 Lumbosacral spondylosis without myelopathy [M47*11/10/2024 Preop testing [Z01.818] 11/26/2024 Cervical myelopathy (HCC) [G95.9] 11/30/2024 CAD (coronary artery disease) [I25.10] 11/30/2024 Sleep apnea [G47.30] 11/30/2024 History of coronary artery bypass graft [Z95.1] 11/30/2024 Stented coronary artery [Z95.5] 11/30/2024 HTN (hypertension) [I10] 11/30/2024 Diabetes mellitus, type 2 (HCC) [E11.9] 11/30/2024 Arthritis [M19.90] 11/30/2024 History of psychiatric care [Z92.89] 11/30/2024 Obesity, Class I, BMI 30-34.9 [E66.811] 11/30/2024 Other specified postprocedural states [Z98.890] 12/08/2024 S/P cervical spinal fusion [Z98.1] 12/08/2024 Encounter Status:Closed by PHILLIP HAJI on 02/17/25 [facility] CNTHERAPYon 02-15-2025 CNTHERAPY OT/PT/Speech Visit (PTWS) CHIDI MUSA ([id number]) 1965 F Date Time Provider Department 02/15/25 8:45 AM MANUELA LIANG Date Time Provider Department [place] 02/15/2025 8:45 AM [id number] LIANG Reason for Visit: Physical Therapy [503] Primary Visit Diagnosis:Chronic right shoulder pain [M25.511, G89.29] Other Visit Diagnosis:S/P cervical spinal fusion [Z98.1] Allergies As of Date: 02/15/2025 (No Known Allergies) Date Reviewed: 01/26/2025 Reviewed by: Marlee Overton MD - Fully Assessed Prescriptions as of 02/15/2025 - tiZANidine (ZANAFLEX) 4 mg tablet TAKE 1 TABLET BY MOUTH EVERY 6 HOURS NEEDED - oxyCODONE IR (ROXICODONE) 10 mg tab - pregabalin (LYRICA) 150 mg capsule Take 1 capsule by mouth three times a day for 30 days. - acetaminophen (TYLENOL) 500 mg tablet Take 2 tablets by mouth every 6 hours. - Wtgtv-7-RVB-EPA-Fish Oil (FISH OIL) 1,000 (120-180) mg cap Take 2 g by mouth once daily. Last dose 11/09 due to surgery - JANUMET 50-1,000 mg per tablet Take 1 tablet by mouth two times a day with meals. - ARIPiprazole (ABILIFY) 5 mg tablet Take 5 mg by mouth once daily. - cariprazine (VRAYLAR) 1.5 mg capsule Take 1.5 mg by mouth once daily. - JARDIANCE 10 mg tablet Take 10 mg by mouth once daily. - fluconazole (DIFLUCAN) 100 mg tablet Take 100 mg by mouth as needed (yeast infections). - fluticasone (FLONASE) 50 mcg/actuation nasal spray Use 2 Sprays in each nostril once daily. - hydrOXYzine HCl (ATARAX) 25 mg tablet Take 25 mg by mouth once daily. - lidocaine (LIDODERM) 5 % Apply 1 Patch as directed every 12 hours. ARMS - methocarbamol (ROBAXIN) 500 mg tablet Take 1,000 mg by mouth four times a day as needed (PAIN). - aspirin 81 mg cap Take 81 mg by mouth once daily. Dr. Quintana manages. No instructions given - albuterol HFA (PROVENTIL HFA, VENTOLIN HFA) 90 mcg/actuation inhaler Inhale 1-2 Puffs as instructed every 6 hours as needed for wheezing/shortness of breath. - atorvastatin (LIPITOR) 40 mg tablet Take 40 mg by mouth once daily. - clopidogrel (PLAVIX) 75 mg tablet Take 75 mg by mouth once daily. Dr. Quintana manages - fluticasone-salmetero l (ADVAIR, WIXELA) 250-50 mcg/dose inhaler Inhale 1 Inhalation as instructed two times a day. - metoprolol succinate ER (TOPROL XL) 25 mg 24 hr tablet Take 25 mg by mouth once daily. - pantoprazole DR (PROTONIX) 40 mg tablet Take 40 mg by mouth every afternoon. [facility] CNTHERAPYon 02-11-2025 CNTHERAPY OT/PT/Speech Visit (PTWS) CHIDI MUSA ([id number]) 1965 F Date Time Provider Department 02/11/25 8:45 AM MANUELA LIANG [facility] Date Time Provider Department Center 02/11/2025 8:45 AM [id number] LIANG Reason for Visit: Physical Therapy [503] Primary Visit Diagnosis:Chronic right shoulder pain [M25.511, G89.29] Other Visit Diagnosis:S/P cervical spinal fusion [Z98.1] Allergies As of Date: 02/11/2025 (No Known Allergies) Date Reviewed: 01/26/2025 Reviewed by: Marlee Overton MD - Fully Assessed Prescriptions as of 02/11/2025 - tiZANidine (ZANAFLEX) 4 mg tablet TAKE 1 TABLET BY MOUTH EVERY 6 HOURS NEEDED - oxyCODONE IR (ROXICODONE) 10 mg tab - pregabalin (LYRICA) 150 mg capsule Take 1 capsule by mouth three times a day for 30 days. - acetaminophen (TYLENOL) 500 mg tablet Take 2 tablets by mouth every 6 hours. - Laono-6-QKG-EPA-Fish Oil (FISH OIL) 1,000 (120-180) mg cap Take 2 g by mouth once daily. Last dose 11/09 due to surgery - JANUMET 50-1,000 mg per tablet Take 1 tablet by mouth two times a day with meals. - ARIPiprazole (ABILIFY) 5 mg tablet Take 5 mg by mouth once daily. - cariprazine (VRAYLAR) 1.5 mg capsule Take 1.5 mg by mouth once daily. - JARDIANCE 10 mg tablet Take 10 mg by mouth once daily. - fluconazole (DIFLUCAN) 100 mg tablet Take 100 mg by mouth as needed (yeast infections). - fluticasone (FLONASE) 50 mcg/actuation nasal spray Use 2 Sprays in each nostril once daily. - hydrOXYzine HCl (ATARAX) 25 mg tablet Take 25 mg by mouth once daily. - lidocaine (LIDODERM) 5 % Apply 1 Patch as directed every 12 hours. ARMS - methocarbamol (ROBAXIN) 500 mg tablet Take 1,000 mg by mouth four times a day as needed (PAIN). - aspirin 81 mg cap Take 81 mg by mouth once daily. Dr. Quintana manages. No instructions given - albuterol HFA (PROVENTIL HFA, VENTOLIN HFA) 90 mcg/actuation inhaler Inhale 1-2 Puffs as instructed every 6 hours as needed for wheezing/shortness of breath. - atorvastatin (LIPITOR) 40 mg tablet Take 40 mg by mouth once daily. - clopidogrel (PLAVIX) 75 mg tablet Take 75 mg by mouth once daily. Dr. Quintana manages - fluticasone-salmetero l (ADVAIR, WIXELA) 250-50 mcg/dose inhaler Inhale 1 Inhalation as instructed two times a day. - metoprolol succinate ER (TOPROL XL) 25 mg 24 hr tablet Take 25 mg by mouth once daily. - pantoprazole DR (PROTONIX) 40 mg tablet Take 40 mg by mouth every afternoon. Ticket Sales Supervisor: Addendum Therapy (PT/OT/Speech/Resp) ID: [id number] 02/11/2025 9:25 AM Author: MANUELA LIANG Signed by MANUELA LIANG ENTRY EXAMINER on 02/11/2025 at 9:25 AM * * * This document replaces document [id number] * * * Document text: Program_ID:[id number] Access Code: [email or web address] URL: [email or web address] Date: 02-11-2025 Prepared By: Sara Wiseman Program Notes Exercises - Seated Cervical Flexion AROM - 3 x daily - 7 x weekly - 2 sets - 10 reps - Seated Cervical Extension AROM - 3 x daily - 7 x weekly - 2 sets - 10 reps - Seated Cervical Sidebending AROM - 3 x daily - 7 x weekly - 2 sets - 10 reps - Seated Cervical Rotation AROM - 3 x daily - 7 x weekly - 2 sets - 10 reps - Standing Isometric Cervical Sidebending with Manual Resistance - 1 x daily - 7 x weekly - 2 sets - 5-10 reps - Standing Isometric Cervical Extension with Manual Resistance - 1 x daily - 7 x weekly - 2 sets - 5-10 reps - Standing Isometric Cervical Flexion with Manual Resistance - 1 x daily - 7 x weekly - 2 sets - 5-10 reps - Seated Shoulder Flexion Towel Slide at Table Top - 1 x daily - 7 x weekly - 2 sets - 10 reps ----- [facility] THERAPY NTon 02-11-2025 THERAPY NT HNO ID: [id number] Author: MANUELA LIANG PTA Service: ? Author Type: Human Resources Manager Type: Therapy (PT/OT/Speech/Resp) Filed: 02/11/2025 09:25 Note Text: Program_ID:[id number] Access Code: [email or web address] URL: [email or web address] Date: 02-11-2025 Prepared By: Sara Wiseman Program Notes Exercises - Seated Cervical Flexion AROM - 3 x daily - 7 x weekly - 2 sets - 10 reps - Seated Cervical Extension AROM - 3 x daily - 7 x weekly - 2 sets - 10 reps - Seated Cervical Sidebending AROM - 3 x daily - 7 x weekly - 2 sets - 10 reps - Seated Cervical Rotation AROM - 3 x daily - 7 x weekly - 2 sets - 10 reps - Standing Isometric Cervical Sidebending with Manual Resistance - 1 x daily - 7 x weekly - 2 sets - 5-10 reps - Standing Isometric Cervical Extension with Manual Resistance - 1 x daily - 7 x weekly - 2 sets - 5-10 reps - Standing Isometric Cervical Flexion with Manual Resistance - 1 x daily - 7 x weekly - 2 sets - 5-10 reps - Seated Shoulder Flexion Towel Slide at Table Top - 1 x daily - 7 x weekly - 2 sets - 10 reps [facility] [id number] 02-04-2025 [id number] HNO ID: [id number] Author: SARA WISEMAN PT Service: ? Author Type: Physical Therapist Type: [id number] Filed: 02/04/2025 17:38 Note Text: [facility] Physical Therapy Plan of Care Certification Patient Name: Chidi Musa : 1965 [facility] #: [id number] Date: 02/04/2025 To: Mayank Sheehan MD From Therapist: Sara Wiseman PT RE: Patient Certification/ Recertification Your review, approval and electronic signature are required in order to comply with Payor: MEDICARE / Plan: MEDICARE A AND B / Product Type: Medicare / regulations. The identified Physical Therapy PLAN OF CARE for the patient is as follows: M25.511, G89.29 Chronic right shoulder pain (primary encounter diagnosis) Z98.1 S/P cervical spinal fusion PLAN OF CARE UPDATE: Assessment: Chidi Musa demonstrates moderate improvement in cervical spine, especially ROM and difficulty with R UE symptoms and function. The patient has progressed toward goals. Patient continues to present with impairments in ADL's, independence in exercise, overall function, patient reported outcome measures, posture, range of motion, soft tissue healing, strength, and symptom management that interfere with reaching overhead, reaching behind back, dressing, lifting, sleeping, grooming . Current prognosis is Good due to: current objective clinical presentation, positive past response to therapy, within-session changes. The patient will benefit from continued skilled therapy services to meet the updated goals for this plan of care as noted below. Updated: 02/04/25 Goals for Episode of Care: established 01/13/25 Patient reported outcome of physical function will increase T-score by a minimum 5 points. - Partially MET, will continue Boles in home exercise program. - MET, will continue and progress to tolerance. Patient will decrease R shoulder pain rating by 2 points to meet minimal clinical important difference for numeric pain rating scale. - Not MET, will continue Patient will increase active ROM of R shoulder to WFL, symmetrical and pain-free to allow pt to to improve performance of ADLs. - Not MET, will continue Perform reaching, lifting, dressing and grooming with decreased report of symptoms/pain in 6 weeks. - Not MET, will continue Patient will decrease neck pain rating by 2 points to meet minimal clinical important difference for numeric pain rating scale.- Partially MET, will continue Restore pain free cervical ROM to WFL to allow for improved tolerance with design tech. - Partially MET, will continue Sleep throughout the night without pain/symptoms. - Not MET, will continue Patient will increase strength of postural muscles to WFL to allow for improve ability to maintain proper posture, improve mechanics, and decrease pain. - Not MET, will continue Patient Goals: decrease pain and be able to plant lira this spring. Walk dog - Not MET, will continue Time Frame for Goals and Treatment : 03/18/25 Patient Goals: decrease pain and be able to plant lira this spring. Walk dog Planned Interventions, Frequency, and Duration: 2x/week, 6 weeks Total Number of Visits Planned: 12 Patient to be seen for Therapeutic exercise (38419), Neuromuscular re-education (76134), Manual therapy (54970), Therapeutic activities (77737), Self-[place] [facility] management (60546), Patient/Family/Caregi lena Education, Body Mechanics Training PLAN FOR NEXT VISIT: Continue with gentle therex for R UE and cervical spine. Progress to tolerance and continue manual therapy. For further details regarding this patient refer to the Physical Therapy electronically documented visit dated 02/04/2025. Provider Attestation I have reviewed the treatment plan for Chidi Paige Musa, [facility]# [id number] for the period of 02/04/25 -- 03/18/25, established on 02/04/2025. Signature certifies the need for therapy services. [facility] CNTHERAPYon 02-04-2025 CNTHERAPY OT/PT/Speech Visit (PTWS) CHIDI MUSA ([id number]) 1965 F Date Time Provider Department 02/04/25 10:00 AM SARA WISEMAN PTWS Date Time Provider Department Center 02/04/2025 10:00 AM [id number], BRENT PTWS [facility] Reason for Visit: Physical Therapy [503] PT Progress Note [1596] Primary Visit Diagnosis:Chronic right shoulder pain [M25.511, G89.29] Other Visit Diagnosis:S/P cervical spinal fusion [Z98.1] Allergies As of Date: 02/04/2025 (No Known Allergies) Date Reviewed: 01/26/2025 Reviewed by: Marlee Overton MD - Fully Assessed Prescriptions as of 02/04/2025 - tiZANidine (ZANAFLEX) 4 mg tablet TAKE 1 TABLET BY MOUTH EVERY 6 HOURS NEEDED - oxyCODONE IR (ROXICODONE) 10 mg tab - pregabalin (LYRICA) 150 mg capsule Take 1 capsule by mouth three times a day for 30 days. - acetaminophen (TYLENOL) 500 mg tablet Take 2 tablets by mouth every 6 hours. - Vezep-8-KMN-EPA-Fish Oil (FISH OIL) 1,000 (120-180) mg cap Take 2 g by mouth once daily. Last dose 11/09 due to surgery - JANUMET 50-1,000 mg per tablet Take 1 tablet by mouth two times a day with meals. - ARIPiprazole (ABILIFY) 5 mg tablet Take 5 mg by mouth once daily. - cariprazine (VRAYLAR) 1.5 mg capsule Take 1.5 mg by mouth once daily. - JARDIANCE 10 mg tablet Take 10 mg by mouth once daily. - fluconazole (DIFLUCAN) 100 mg tablet Take 100 mg by mouth as needed (yeast infections). - fluticasone (FLONASE) 50 mcg/actuation nasal spray Use 2 Sprays in each nostril once daily. - hydrOXYzine HCl (ATARAX) 25 mg tablet Take 25 mg by mouth once daily. - lidocaine (LIDODERM) 5 % Apply 1 Patch as directed every 12 hours. ARMS - methocarbamol (ROBAXIN) 500 mg tablet Take 1,000 mg by mouth four times a day as needed (PAIN). - aspirin 81 mg cap Take 81 mg by mouth once daily. Dr. Quintana manages. No instructions given - albuterol HFA (PROVENTIL HFA, VENTOLIN HFA) 90 mcg/actuation inhaler Inhale 1-2 Puffs as instructed every 6 hours as needed for wheezing/shortness of breath. - atorvastatin (LIPITOR) 40 mg tablet Take 40 mg by mouth once daily. - clopidogrel (PLAVIX) 75 mg tablet Take 75 mg by mouth once daily. Dr. Quintana manages - fluticasone-salmetero l (ADVAIR, WIXELA) 250-50 mcg/dose inhaler Inhale 1 Inhalation as instructed two times a day. - metoprolol succinate ER (TOPROL XL) 25 mg 24 hr tablet Take 25 mg by mouth once daily. - pantoprazole DR (PROTONIX) 40 mg tablet Take 40 mg by mouth every afternoon. [facility] ([facility]) CHIDI MUSA ([id number]) 1965 F Date Time Provider Department 02/03/25 CLAUDIA WASHINGTON MRI During your visit today, we recorded the following information about you: Christelle Marte 02/03/2025 8:19 AM Signed Patient is requesting disc of 01/21/25 MRI Shoulder RT. PSS explained that a separate release would need signed for report and to provide the fax number of the non [facility] office. 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 Claudia Washington, PSS 02/05/2025 12:17 PM Signed Pt picked up Allergies As of Date: 02/03/2025 (No Known Allergies) Date Reviewed: 01/26/2025 Reviewed by: Marlee Overton MD - Fully Assessed Reason for Visit: Release Of Medical Records [2017] Cmt: Imaging Prescriptions as of 04/22/2025 - pregabalin (LYRICA) 150 mg capsule Take 1 capsule by mouth three times a day for 30 days. - amLODIPine (NORVASC) 5 mg tablet Take 1 tablet by mouth once daily. - methylPREDNISolone (MEDROL DOSE-PACK) 4 mg Dose-Pack A directed - ergocalciferol 50,000 unit capsule (VITAMIN D2, DRISDOL) Take 1 capsule by mouth one time a week. - losartan (COZAAR) 25 mg tablet Take 25 mg by mouth once daily. - Ukevy-9-CNB-EPA-Fish Oil (FISH OIL) 1,000 (120-180) mg cap Take 2 g by mouth once daily. Last dose 11/09 due to surgery - JANUMET 50-1,000 mg per tablet Take 1 tablet by mouth two times a day with meals. - ARIPiprazole (ABILIFY) 5 mg tablet Take 5 mg by mouth once daily. - cariprazine (VRAYLAR) 1.5 mg capsule Take 1.5 mg by mouth once daily. - JARDIANCE 10 mg tablet Take 10 mg by mouth once daily. - fluconazole (DIFLUCAN) 100 mg tablet Take 100 mg by mouth as needed (yeast infections). - fluticasone (FLONASE) 50 mcg/actuation nasal spray Use 2 Sprays in each nostril once daily. - hydrOXYzine HCl (ATARAX) 25 mg tablet Take 25 mg by mouth once daily. - lidocaine (LIDODERM) 5 % Apply 1 Patch as directed every 12 hours. ARMS - aspirin 81 mg cap Take 81 mg by mouth once daily. Dr. Quintana manages. No instructions given - albuterol HFA (PROVENTIL HFA, VENTOLIN HFA) 90 mcg/actuation inhaler Inhale 1-2 Puffs as instructed every 6 hours as needed for wheezing/shortness of breath. - atorvastatin (LIPITOR) 40 mg tablet Take 40 mg by mouth once daily. - clopidogrel (PLAVIX) 75 mg tablet Take 75 mg by mouth once daily. Dr. Quintana manages - fluticasone-salmetero l (ADVAIR, WIXELA) 250-50 mcg/dose inhaler Inhale 1 Inhalation as instructed two times a day. - metoprolol succinate ER (TOPROL XL) 25 mg 24 hr tablet Take 25 mg by mouth once daily. - pantoprazole DR (PROTONIX) 40 mg tablet Take 40 mg by mouth every afternoon. Problem List As Of Date 02/03/2025 Noted Resolved Cervical spondylosis with myelopathy [M47.12] 09/28/2024 Chronic right shoulder pain [M25.511, G89.29] 11/10/2024 Long-term current use of opiate analgesic [Z79.*11/10/2024 Lumbosacral spondylosis without myelopathy [M47*11/10/2024 Preop testing [Z01.818] 11/26/2024 Cervical myelopathy (HCC) [G95.9] 11/30/2024 CAD (coronary artery disease) [I25.10] 11/30/2024 Sleep apnea [G47.30] 11/30/2024 History of coronary artery bypass graft [Z95.1] 11/30/2024 Stented coronary artery [Z95.5] 11/30/2024 HTN (hypertension) [I10] 11/30/2024 Diabetes mellitus, type 2 (HCC) [E11.9] 11/30/2024 Arthritis [M19.90] 11/30/2024 History of psychiatric care [Z92.89] 11/30/2024 Obesity, Class I, BMI 30-34.9 [E66.811] 11/30/2024 Other specified postprocedural states [Z98.890] 12/08/2024 S/P cervical spinal fusion [Z98.1] 12/08/2024 Encounter Status:[facility]ST[facility] CHIDI MUSA ([id number]) 1965 F Date Time Provider Department 02/02/25 MAYANK SHEEHAN [facility] During your visit today, we recorded the following information about you: Hina Torres MA 02/02/2025 4:05 PM Poly Weaver called into the office today with concerns of worsened shoulder pain since an injection that is radiating through the forearm. She was asking if Dr. Sheehan could take over the care for the shoulder and arm. I informed her that Dr. Sheehan only treats spine, that she would need to call and schedule a follow up with Dr. Overton. She verbalized understanding. Allergies As of Date: 02/02/2025 (No Known Allergies) Date Reviewed: 01/26/2025 Reviewed by: Marlee Overton MD - Fully Assessed Prescriptions as of 02/02/2025 - tiZANidine (ZANAFLEX) 4 mg tablet TAKE 1 TABLET BY MOUTH EVERY 6 HOURS NEEDED - oxyCODONE IR (ROXICODONE) 10 mg tab - pregabalin (LYRICA) 150 mg capsule Take 1 capsule by mouth three times a day for 30 days. - acetaminophen (TYLENOL) 500 mg tablet Take 2 tablets by mouth every 6 hours. - Sbxhq-0-THH-EPA-Fish Oil (FISH OIL) 1,000 (120-180) mg cap Take 2 g by mouth once daily. Last dose 11/09 due to surgery - JANUMET 50-1,000 mg per tablet Take 1 tablet by mouth two times a day with meals. - ARIPiprazole (ABILIFY) 5 mg tablet Take 5 mg by mouth once daily. - cariprazine (VRAYLAR) 1.5 mg capsule Take 1.5 mg by mouth once daily. - JARDIANCE 10 mg tablet Take 10 mg by mouth once daily. - fluconazole (DIFLUCAN) 100 mg tablet Take 100 mg by mouth as needed (yeast infections). - fluticasone (FLONASE) 50 mcg/actuation nasal spray Use 2 Sprays in each nostril once daily. - hydrOXYzine HCl (ATARAX) 25 mg tablet Take 25 mg by mouth once daily. - lidocaine (LIDODERM) 5 % Apply 1 Patch as directed every 12 hours. ARMS - methocarbamol (ROBAXIN) 500 mg tablet Take 1,000 mg by mouth four times a day as needed (PAIN). - aspirin 81 mg cap Take 81 mg by mouth once daily. Dr. Quintana manages. No instructions given - albuterol HFA (PROVENTIL HFA, VENTOLIN HFA) 90 mcg/actuation inhaler Inhale 1-2 Puffs as instructed every 6 hours as needed for wheezing/shortness of breath. - atorvastatin (LIPITOR) 40 mg tablet Take 40 mg by mouth once daily. - clopidogrel (PLAVIX) 75 mg tablet Take 75 mg by mouth once daily. Dr. Quintana manages - fluticasone-salmetero l (ADVAIR, WIXELA) 250-50 mcg/dose inhaler Inhale 1 Inhalation as instructed two times a day. - metoprolol succinate ER (TOPROL XL) 25 mg 24 hr tablet Take 25 mg by mouth once daily. - pantoprazole DR (PROTONIX) 40 mg tablet Take 40 mg by mouth every afternoon. Problem List As Of Date 02/02/2025 Noted Resolved Cervical spondylosis with myelopathy [M47.12] 09/28/2024 Chronic right shoulder pain [M25.511, G89.29] 11/10/2024 Long-term current use of opiate analgesic [Z79.*11/10/2024 Lumbosacral spondylosis without myelopathy [M47*11/10/2024 Preop testing [Z01.818] 11/26/2024 Cervical myelopathy (HCC) [G95.9] 11/30/2024 CAD (coronary artery disease) [I25.10] 11/30/2024 Sleep apnea [G47.30] 11/30/2024 History of coronary artery bypass graft [Z95.1] 11/30/2024 Stented coronary artery [Z95.5] 11/30/2024 HTN (hypertension) [I10] 11/30/2024 Diabetes mellitus, type 2 (HCC) [E11.9] 11/30/2024 Arthritis [M19.90] 11/30/2024 History of psychiatric care [Z92.89] 11/30/2024 Obesity, Class I, BMI 30-34.9 [E66.811] 11/30/2024 Other specified postprocedural states [Z98.890] 12/08/2024 S/P cervical spinal fusion [Z98.1] 12/08/2024 Encounter Status:Closed by HINA TORRES on 02/02/25 [facility] CNTHERAPYon 02-02-2025 CNTHERAPY OT/PT/Speech Visit (PTWS) CHIDI MUSA ([id number]) 1965 F Date Time Provider Department 02/02/25 9:30 AM MANUELA LIANG PTWS Date Time Provider Department Center 02/02/2025 9:30 AM [id number] LIANG Reason for Visit: Physical Therapy [503] Primary Visit Diagnosis:Chronic right shoulder pain [M25.511, G89.29] Other Visit Diagnosis:S/P cervical spinal fusion [Z98.1] Allergies As of Date: 02/02/2025 (No Known Allergies) Date Reviewed: 01/26/2025 Reviewed by: Marlee Overton MD - Fully Assessed Prescriptions as of 02/02/2025 - tiZANidine (ZANAFLEX) 4 mg tablet TAKE 1 TABLET BY MOUTH EVERY 6 HOURS NEEDED - oxyCODONE IR (ROXICODONE) 10 mg tab - pregabalin (LYRICA) 150 mg capsule Take 1 capsule by mouth three times a day for 30 days. - acetaminophen (TYLENOL) 500 mg tablet Take 2 tablets by mouth every 6 hours. - Khwnb-2-IKO-EPA-Fish Oil (FISH OIL) 1,000 (120-180) mg cap Take 2 g by mouth once daily. Last dose 11/09 due to surgery - JANUMET 50-1,000 mg per tablet Take 1 tablet by mouth two times a day with meals. - ARIPiprazole (ABILIFY) 5 mg tablet Take 5 mg by mouth once daily. - cariprazine (VRAYLAR) 1.5 mg capsule Take 1.5 mg by mouth once daily. - JARDIANCE 10 mg tablet Take 10 mg by mouth once daily. - fluconazole (DIFLUCAN) 100 mg tablet Take 100 mg by mouth as needed (yeast infections). - fluticasone (FLONASE) 50 mcg/actuation nasal spray Use 2 Sprays in each nostril once daily. - hydrOXYzine HCl (ATARAX) 25 mg tablet Take 25 mg by mouth once daily. - lidocaine (LIDODERM) 5 % Apply 1 Patch as directed every 12 hours. ARMS - methocarbamol (ROBAXIN) 500 mg tablet Take 1,000 mg by mouth four times a day as needed (PAIN). - aspirin 81 mg cap Take 81 mg by mouth once daily. Dr. Quintana manages. No instructions given - albuterol HFA (PROVENTIL HFA, VENTOLIN HFA) 90 mcg/actuation inhaler Inhale 1-2 Puffs as instructed every 6 hours as needed for wheezing/shortness of breath. - atorvastatin (LIPITOR) 40 mg tablet Take 40 mg by mouth once daily. - clopidogrel (PLAVIX) 75 mg tablet Take 75 mg by mouth once daily. Dr. Quintana manages - fluticasone-salmetero l (ADVAIR, WIXELA) 250-50 mcg/dose inhaler Inhale 1 Inhalation as instructed two times a day. - metoprolol succinate ER (TOPROL XL) 25 mg 24 hr tablet Take 25 mg by mouth once daily. - pantoprazole DR (PROTONIX) 40 mg tablet Take 40 mg by mouth every afternoon. [facility] (AGPOB1) CHIDI MUSA ([id number]) 1965 F Date Time Provider Department 01/29/25 MARLEE OVERTON AGPOB1 During your visit today, we recorded the following information about you: Cassie Lopez 01/29/2025 1:12 PM Addendum I just called Chidi back, but had to leave a message. I left her Dr. Overton's reply below on her voicemail. ----- Message from Marlee Overton MD sent at 01/29/2025 12:04 PM EDT ----- Regarding: RE: Post injection complaints No I doubt the forearm pain is coming from her shoulder. She has a bad neck and probably is the reason her forearm is hurting. But tell her nothing to worry about. ----- Message ----- From: Cassie Lopez Sent: 01/29/2025 10:29 AM EDT To: Marlee Overton MD Subject: RE: Post injection complaints Did you mean this is normal side effect sometimes and just recheck in 6 wks? ----- Message ----- From: Marlee Overton MD Sent: 01/29/2025 9:31 AM EDT To: Cassie Karimi Subject: RE: Post injection complaints No need for MRI of forearm. This is likely coming from her neck. Just normalize and I'll check on her in 6 weeks. ----- Message ----- From: Cassie Lopez Sent: 01/29/2025 9:16 AM EDT To: Marlee Overton MD Subject: Post injection complaints Chidi called this morning stating since injection earlier this week she is having more shoulder pain that is going into her forearm. She thinks she needs an MRI of her forearm now and is asking for an order. I let her know you are in surgery all day, but that I would send message to see what is appropriate for next step. Allergies As of Date: 01/29/2025 (No Known Allergies) Date Reviewed: 01/26/2025 Reviewed by: Marlee Overton MD - Fully Assessed Reason for Visit: Patient Update [1234] Returning Patient's Call [408] Cmt: Patient post injection concern Prescriptions as of 01/29/2025 - tiZANidine (ZANAFLEX) 4 mg tablet TAKE 1 TABLET BY MOUTH EVERY 6 HOURS NEEDED - oxyCODONE IR (ROXICODONE) 10 mg tab - pregabalin (LYRICA) 150 mg capsule Take 1 capsule by mouth three times a day for 30 days. - acetaminophen (TYLENOL) 500 mg tablet Take 2 tablets by mouth every 6 hours. - Bmwsz-6-XDN-EPA-Fish Oil (FISH OIL) 1,000 (120-180) mg cap Take 2 g by mouth once daily. Last dose 11/09 due to surgery - JANUMET 50-1,000 mg per tablet Take 1 tablet by mouth two times a day with meals. - ARIPiprazole (ABILIFY) 5 mg tablet Take 5 mg by mouth once daily. - cariprazine (VRAYLAR) 1.5 mg capsule Take 1.5 mg by mouth once daily. - JARDIANCE 10 mg tablet Take 10 mg by mouth once daily. - fluconazole (DIFLUCAN) 100 mg tablet Take 100 mg by mouth as needed (yeast infections). - fluticasone (FLONASE) 50 mcg/actuation nasal spray Use 2 Sprays in each nostril once daily. - hydrOXYzine HCl (ATARAX) 25 mg tablet Take 25 mg by mouth once daily. - lidocaine (LIDODERM) 5 % Apply 1 Patch as directed every 12 hours. ARMS - methocarbamol (ROBAXIN) 500 mg tablet Take 1,000 mg by mouth four times a day as needed (PAIN). - aspirin 81 mg cap Take 81 mg by mouth once daily. Dr. Quintana manages. No instructions given - albuterol HFA (PROVENTIL HFA, VENTOLIN HFA) 90 mcg/actuation inhaler Inhale 1-2 Puffs as instructed every 6 hours as needed for wheezing/shortness of breath. - atorvastatin (LIPITOR) 40 mg tablet Take 40 mg by mouth once daily. - clopidogrel (PLAVIX) 75 mg tablet Take 75 mg by mouth once daily. Dr. Quintana manages - fluticasone-salmetero l (ADVAIR, WIXELA) 250-50 mcg/dose inhaler Inhale 1 Inhalation as instructed two times a day. - metoprolol succinate ER (TOPROL XL) 25 mg 24 hr tablet Take 25 mg by mouth once daily. - pantoprazole DR (PROTONIX) 40 mg tablet Take 40 mg by mouth every afternoon. Problem List As Of Date 01/29/2025 Noted Resolved Cervical spondylosis with myelopathy [M47.12] 09/28/2024 Chronic right shoulder pain [M25.511, G89.29] 11/10/2024 Long-term current use of opiate analgesic [Z79.*11/10/2024 Lumbosacral spondylosis without myelopathy [M47*11/10/2024 Preop testing [Z01.818] 11/26/2024 Cervical myelopathy (HCC) [G95.9] 11/30/2024 CAD (coronary artery disease) [I25.10] 11/30/2024 Sleep apnea [G47.30] 11/30/2024 History of coronary artery bypass graft [Z95.1] 11/30/2024 Stented coronary artery [Z95.5] 11/30/2024 HTN (hypertension) [I10] 11/30/2024 Diabetes mellitus, type 2 (HCC) [E11.9] 11/30/2024 Arthritis [M19.90] 11/30/2024 History of psychiatric care [Z92.89] 11/30/2024 Obesity, Class I, BMI 30-34.9 [E66.811] 11/30/2024 Other specified postprocedural states [Z98.890] 12/08/2024 S/P cervical spinal fusion [Z98.1] 12/08/2024 Encounter Status:Closed by [employer] MANAGER CASSIE KARIMI on 01/29/25 [facility] CNPN Telephone (PAIMER) CHIDI MUSA ([id number]) 1965 F Date Time Provider Department 01/29/25 [facility] [facility] During your visit today, we recorded the following information about you: Neelam Manuel RN 01/29/2025 8:52 AM Signed Pt called and LM on care line noting that she changed her mind and does not want to see provider in [place]. She wants to keep seeing our PM in [place]. Pt asking to disregard previous message. Neelam Manuel RN January 29, 2025 8:51 AM Allergies As of Date: 01/29/2025 (No Known Allergies) Date Reviewed: 01/26/2025 Reviewed by: Marlee Overton MD - Fully Assessed Reason for Visit: Patient Update [1234] Cmt: Pt not wanting to leave [facility] PM Prescriptions as of 01/29/2025 - tiZANidine (ZANAFLEX) 4 mg tablet TAKE 1 TABLET BY MOUTH EVERY 6 HOURS NEEDED - oxyCODONE IR (ROXICODONE) 10 mg tab - pregabalin (LYRICA) 150 mg capsule Take 1 capsule by mouth three times a day for 30 days. - acetaminophen (TYLENOL) 500 mg tablet Take 2 tablets by mouth every 6 hours. - Nlrrr-4-LPP-EPA-Fish Oil (FISH OIL) 1,000 (120-180) mg cap Take 2 g by mouth once daily. Last dose 11/09 due to surgery - JANUMET 50-1,000 mg per tablet Take 1 tablet by mouth two times a day with meals. - ARIPiprazole (ABILIFY) 5 mg tablet Take 5 mg by mouth once daily. - cariprazine (VRAYLAR) 1.5 mg capsule Take 1.5 mg by mouth once daily. - JARDIANCE 10 mg tablet Take 10 mg by mouth once daily. - fluconazole (DIFLUCAN) 100 mg tablet Take 100 mg by mouth as needed (yeast infections). - fluticasone (FLONASE) 50 mcg/actuation nasal spray Use 2 Sprays in each nostril once daily. - hydrOXYzine HCl (ATARAX) 25 mg tablet Take 25 mg by mouth once daily. - lidocaine (LIDODERM) 5 % Apply 1 Patch as directed every 12 hours. ARMS - methocarbamol (ROBAXIN) 500 mg tablet Take 1,000 mg by mouth four times a day as needed (PAIN). - aspirin 81 mg cap Take 81 mg by mouth once daily. Dr. Quintana manages. No instructions given - albuterol HFA (PROVENTIL HFA, VENTOLIN HFA) 90 mcg/actuation inhaler Inhale 1-2 Puffs as instructed every 6 hours as needed for wheezing/shortness of breath. - atorvastatin (LIPITOR) 40 mg tablet Take 40 mg by mouth once daily. - clopidogrel (PLAVIX) 75 mg tablet Take 75 mg by mouth once daily. Dr. Quintana manages - fluticasone-salmetero l (ADVAIR, WIXELA) 250-50 mcg/dose inhaler Inhale 1 Inhalation as instructed two times a day. - metoprolol succinate ER (TOPROL XL) 25 mg 24 hr tablet Take 25 mg by mouth once daily. - pantoprazole DR (PROTONIX) 40 mg tablet Take 40 mg by mouth every afternoon. Problem List As Of Date 01/29/2025 Noted Resolved Cervical spondylosis with myelopathy [M47.12] 09/28/2024 Chronic right shoulder pain [M25.511, G89.29] 11/10/2024 Long-term current use of opiate analgesic [Z79.*11/10/2024 Lumbosacral spondylosis without myelopathy [M47*11/10/2024 Preop testing [Z01.818] 11/26/2024 Cervical myelopathy (HCC) [G95.9] 11/30/2024 CAD (coronary artery disease) [I25.10] 11/30/2024 Sleep apnea [G47.30] 11/30/2024 History of coronary artery bypass graft [Z95.1] 11/30/2024 Stented coronary artery [Z95.5] 11/30/2024 HTN (hypertension) [I10] 11/30/2024 Diabetes mellitus, type 2 (HCC) [E11.9] 11/30/2024 Arthritis [M19.90] 11/30/2024 History of psychiatric care [Z92.89] 11/30/2024 Obesity, Class I, BMI 30-34.9 [E66.811] 11/30/2024 Other specified postprocedural states [Z98.890] 12/08/2024 S/P cervical spinal fusion [Z98.1] 12/08/2024 Encounter Status:Closed by NEELAM MANUEL on 01/29/25 [facility] James 01-28-2025 CNPN Telephone (SPAGWO) CHIDI MUSA ([id number]) 1965 F Date Time Provider Department 01/28/25 PHILLIP BLAND During your visit today, we recorded the following information about you: DougFernando 01/28/2025 1:04 PM Signed Patient stopped by the [place] office today, hoping to get scheduled with [facility]. She has been seeing another pain management practice recently so she signed a records release request and was told about the release of care letter that is required. Notified her that once we have her records (and a release of car letter) from the other practice we will reach out to get her scheduled. Fernando Camacho Allergies As of Date: 01/28/2025 (No Known Allergies) Date Reviewed: 01/26/2025 Reviewed by: Marlee Overton MD - Fully Assessed Reason for Visit: New Patient Evaluation [154] Prescriptions as of 01/28/2025 - tiZANidine (ZANAFLEX) 4 mg tablet TAKE 1 TABLET BY MOUTH EVERY 6 HOURS NEEDED - oxyCODONE IR (ROXICODONE) 10 mg tab - pregabalin (LYRICA) 150 mg capsule Take 1 capsule by mouth three times a day for 30 days. - acetaminophen (TYLENOL) 500 mg tablet Take 2 tablets by mouth every 6 hours. - Enpfj-7-EHB-EPA-Fish Oil (FISH OIL) 1,000 (120-180) mg cap Take 2 g by mouth once daily. Last dose 11/09 due to surgery - JANUMET 50-1,000 mg per tablet Take 1 tablet by mouth two times a day with meals. - ARIPiprazole (ABILIFY) 5 mg tablet Take 5 mg by mouth once daily. - cariprazine (VRAYLAR) 1.5 mg capsule Take 1.5 mg by mouth once daily. - JARDIANCE 10 mg tablet Take 10 mg by mouth once daily. - fluconazole (DIFLUCAN) 100 mg tablet Take 100 mg by mouth as needed (yeast infections). - fluticasone (FLONASE) 50 mcg/actuation nasal spray Use 2 Sprays in each nostril once daily. - hydrOXYzine HCl (ATARAX) 25 mg tablet Take 25 mg by mouth once daily. - lidocaine (LIDODERM) 5 % Apply 1 Patch as directed every 12 hours. ARMS - methocarbamol (ROBAXIN) 500 mg tablet Take 1,000 mg by mouth four times a day as needed (PAIN). - aspirin 81 mg cap Take 81 mg by mouth once daily. Dr. Quintana manages. No instructions given - albuterol HFA (PROVENTIL HFA, VENTOLIN HFA) 90 mcg/actuation inhaler Inhale 1-2 Puffs as instructed every 6 hours as needed for wheezing/shortness of breath. - atorvastatin (LIPITOR) 40 mg tablet Take 40 mg by mouth once daily. - clopidogrel (PLAVIX) 75 mg tablet Take 75 mg by mouth once daily. Dr. Quintana manages - fluticasone-salmetero l (ADVAIR, WIXELA) 250-50 mcg/dose inhaler Inhale 1 Inhalation as instructed two times a day. - metoprolol succinate ER (TOPROL XL) 25 mg 24 hr tablet Take 25 mg by mouth once daily. - pantoprazole DR (PROTONIX) 40 mg tablet Take 40 mg by mouth every afternoon. Problem List As Of Date 01/28/2025 Noted Resolved Cervical spondylosis with myelopathy [M47.12] 09/28/2024 Chronic right shoulder pain [M25.511, G89.29] 11/10/2024 Long-term current use of opiate analgesic [Z79.*11/10/2024 Lumbosacral spondylosis without myelopathy [M47*11/10/2024 Preop testing [Z01.818] 11/26/2024 Cervical myelopathy (HCC) [G95.9] 11/30/2024 CAD (coronary artery disease) [I25.10] 11/30/2024 Sleep apnea [G47.30] 11/30/2024 History of coronary artery bypass graft [Z95.1] 11/30/2024 Stented coronary artery [Z95.5] 11/30/2024 HTN (hypertension) [I10] 11/30/2024 Diabetes mellitus, type 2 (HCC) [E11.9] 11/30/2024 Arthritis [M19.90] 11/30/2024 History of psychiatric care [Z92.89] 11/30/2024 Obesity, Class I, BMI 30-34.9 [E66.811] 11/30/2024 Other specified postprocedural states [Z98.890] 12/08/2024 S/P cervical spinal fusion [Z98.1] 12/08/2024 Encounter Status:Closed by FERNANDO CAMACHO on 01/28/25 [facility] CNTHERAPYon 01-28-2025 CNTHERAPY OT/PT/Speech Visit (PTWS) CHIDI MUSA ([id number]) 1965 F Date Time Provider Department 01/28/25 10:45 AM SARA WISEMAN PTMERRAY Date Time Provider Department Center 01/28/2025 10:45 AM [id number], BRENT PTWS Vickie Sam Reason for Visit: Physical Therapy [503] Primary Visit Diagnosis:Chronic right shoulder pain [M25.511, G89.29] Other Visit Diagnosis:S/P cervical spinal fusion [Z98.1] Allergies As of Date: 01/28/2025 (No Known Allergies) Date Reviewed: 01/26/2025 Reviewed by: Marlee Overton MD - Fully Assessed Prescriptions as of 01/28/2025 - tiZANidine (ZANAFLEX) 4 mg tablet TAKE 1 TABLET BY MOUTH EVERY 6 HOURS NEEDED - oxyCODONE IR (ROXICODONE) 10 mg tab - pregabalin (LYRICA) 150 mg capsule Take 1 capsule by mouth three times a day for 30 days. - acetaminophen (TYLENOL) 500 mg tablet Take 2 tablets by mouth every 6 hours. - Jbqcm-2-SMQ-EPA-Fish Oil (FISH OIL) 1,000 (120-180) mg cap Take 2 g by mouth once daily. Last dose 11/09 due to surgery - JANUMET 50-1,000 mg per tablet Take 1 tablet by mouth two times a day with meals. - ARIPiprazole (ABILIFY) 5 mg tablet Take 5 mg by mouth once daily. - cariprazine (VRAYLAR) 1.5 mg capsule Take 1.5 mg by mouth once daily. - JARDIANCE 10 mg tablet Take 10 mg by mouth once daily. - fluconazole (DIFLUCAN) 100 mg tablet Take 100 mg by mouth as needed (yeast infections). - fluticasone (FLONASE) 50 mcg/actuation nasal spray Use 2 Sprays in each nostril once daily. - hydrOXYzine HCl (ATARAX) 25 mg tablet Take 25 mg by mouth once daily. - lidocaine (LIDODERM) 5 % Apply 1 Patch as directed every 12 hours. ARMS - methocarbamol (ROBAXIN) 500 mg tablet Take 1,000 mg by mouth four times a day as needed (PAIN). - aspirin 81 mg cap Take 81 mg by mouth once daily. Dr. Quintana manages. No instructions given - albuterol HFA (PROVENTIL HFA, VENTOLIN HFA) 90 mcg/actuation inhaler Inhale 1-2 Puffs as instructed every 6 hours as needed for wheezing/shortness of breath. - atorvastatin (LIPITOR) 40 mg tablet Take 40 mg by mouth once daily. - clopidogrel (PLAVIX) 75 mg tablet Take 75 mg by mouth once daily. Dr. Quintana manages - fluticasone-salmetero l (ADVAIR, WIXELA) 250-50 mcg/dose inhaler Inhale 1 Inhalation as instructed two times a day. - metoprolol succinate ER (TOPROL XL) 25 mg 24 hr tablet Take 25 mg by mouth once daily. - pantoprazole DR (PROTONIX) 40 mg tablet Take 40 mg by mouth every afternoon. [facility] Cardiology Visit Reporton Cardiology Visit Report [facility] [address] [place] [address] OFFICE VISIT Date of Service: 01/27/25 MR#: [id number] Acct: [id number] Name: CHIDI MUSA Rep #: [id number] : 1965 Provider: Dr. Andrew Maldonado MD Age/Sex: 59/F [place] [facility] [place] [place] Status: Signed HPI HPI History of Present Illness Details: This lady is here for follow-up visit. Lately she has been having problems with her shoulders. According to her, she has been diagnosed with frozen shoulder. She describes significant pain with that. Denies any chest pains. She continues to have some shortness of breath with exertion. Not very specific about it. Denies orthopnea or PND. No ankle edema. Intake Vital Signs 11/04/24 08:58 01/27/25 08:23 Height 5 ft 2 in 5 ft 2 in Weight: 167 lb BMI 30.5 BP 130/75 H Blood Pressure Location Lt brachial Position Sitting Respiration 18 Pulse 76 Pulse Source NIBP Intake Visit Reasons: 6 M FU Grinder Lap Required: No Accompanied by: Self Is patient in pain?: Yes (joints; neck/shoulder) Allergies No Known Allergies Allergy (Verified 01/27/25 09:39) Medications ???Medication ???Instructions ???Recorded ???Confirmed ???Type sitagliptin phosphate 50 1 ea PO BID 07/03/14 01/27/25 Hist ory mg-metformin 500 mg tablet (Shayanumeestefania) atorvastatin 40 mg tablet 40 mg PO DAILY 05/12/24 01/27/25 H istory methocarbamol 500 mg tablet 500 mg PO QHS 05/12/24 01/27/25 Hi story metoprolol succinate 25 mg capsule 25 mg PO DAILY 05/12/24 01/27/25 History sprinkle, ext. release 24 hr pantoprazole 40 mg tablet,delayed 40 mg PO DAILY 05/12/24 01/27/25 History release tiotropium bromide 2.5 2 puff inhalation DAILY 05/12/24 0 01/27/25 History mcg/actuation mist for inhalation (Spiriva Respimat) albuterol sulfate 90 mcg/actuation 1 inh inhalation ONCE 05/20/24 0 01/27/25 History aerosol inhaler clopidogrel 75 mg tablet 75 mg PO QDAY 05/20/24 01/27/25 Hi story empagliflozin 10 mg tablet 10 mg PO DAILY 05/20/24 01/27/25 H istory (Jardiance) lidocaine 5 % topical patch 1 patch topical DAILY 05/20/24 History aripiprazole 5 mg tablet 5 mg PO QDAY 08/11/24 01/27/25 His tory escitalopram oxalate 20 mg tablet 20 mg PO QDAY 08/11/24 01/27/25 H istory hydroxyzine HCl 25 mg tablet 25 mg PO TID 08/11/24 01/27/25 His tory aspirin 81 mg tablet,delayed 81 mg PO QDAY 09/16/24 01/27/25 Hi story release fluticasone 250 mcg-salmeterol 50 1 ea inhalation BID 10/01/2412/31 History mcg/dose blistr powdr for inhalation (Advair Diskus) fluticasone propionate 50 2 spray intranasal QDAY 10/01/24 0 01/27/25 History mcg/actuation nasal spray,suspension (Allergy Relief (fluticasone)) pregabalin 150 mg capsule (Lyrica) 150 mg PO TID 11/17/24 01/27/25 History oxycodone 10 mg tablet 10 mg PO Q8 PRN pain 01/27/2512/31 History tramadol 50 mg tablet 50 mg PO DAILY PRN 01/27/25 History Ejection fraction %: 65 Have you fallen in the past year?: Yes (BLE weakness; no major injury) [facility] Medical History Aortoiliac occlusive disease Atherosclerosis of [place] arteries of extremities with rest pain, left leg COPD (chronic obstructive pulmonary disease) Coronary artery disease CALVIN (generalized anxiety disorder) Hyperlipidemia Lumbar foraminal stenosis MDD (major depressive disorder) AVE (obstructive sleep apnea) Peripheral neuropathy Type 2 diabetes mellitus Ventral hernia Surgical History H/O angioplasty History of cardiac catheterization History of carotid endarterectomy History of cholecystectomy History of colonoscopy History of hysterectomy History of oophorectomy History of spinal surgery Hx of CABG Presence of stent in coronary artery S/P insertion of iliac artery stent ( 05/2022) Family History Mother Heart disease Father Cancer Social History Smoking Status: Former smoker Tobacco: How many years used: 38 how long ago did patient quit smokin months second hand exposure: Yes ROS Const Const: Positive for headache(s); Negative for fatigue, weakness or weight gain Eyes Eyes: Positive for blurry vision ENT ENT: Positive for headache(s); Negative for dizziness, Nosebleed/epistaxis or balance problems Cardio Chest Pain: No Palpitations: No Edema: None Muscle aches with walking: None Resp Respiratory: Positive for SOB with activity, SOB at rest and SOB orthopnea SOB lying down GI GI: Negative nausea, vomiting or heartburn Musc Musc: Positive fo (more content not included)... [facility] ) CHIDI MUSA ([id number]) 1965 F Date Time Provider Department 01/26/25 11:00 AM [id number] During your visit today, we recorded the following information about you: Respiration Weight Height 17/minute 75.3 kg 1.575 m Marlee Overton MD 01/26/2025 12:42 PM Signed Marlee Overton MD Orthopedic Sports Medicine Surgery [address] [facility] On license of [facility] [id number] [address] [place] [address] [facility] [address], [facility] [address], [place] [address] NAME: Chidi Musa : 1965 DATE: 01/26/2025 Reason for Visit/Chief Complaint: Right shoulder pain History of present illness: Chidi is a 59 year old female who presents for follow-up evaluation of acute right shoulder pain after a fall in August 2024. At the patient's last visit, I ordered an MRI as I was concerned for a traumatic full-thickness rotator cuff tear. She presents 1 week later for MRI results. She continues to have excruciating pain in her right shoulder. A normal sprain started 2 years. She cannot lift her arm at all due to her significant right shoulder pain. I have reviewed and updated the patient's past medical history, past surgical history, social history, and family history. This is located both in the patient's note and their intake form that has been scanned into the medical record for today's visit. 14 point review of systems was reviewed per signed intake sheet and is otherwise negative except as noted above. Objective: Constitutional: Well developed, well nourished, no acute distress HEENT: mucous membranes moist, normocephalic atraumatic Psychologic: appropriate mood and affect Chest: bilateral chest elevations, symmetric Cardiovascular: pink extremities, peripheral perfusion intact Respiratory: no respiratory distress, nonlabored on room air Abdomen: soft, nontender Neurologic: orientation to person, place and time Right SHOULDER EXAM Examination of the right shoulder very limited due to patient's pain. She has exquisite tenderness palpation around her entire right arm. She has active forward elevation 20 degrees. Passive forward elevation 90 degrees with significant pain. External rotation 30 degrees. Internal rotation to hip with significant pain. Unable to assess strength due to patient's significant pain and weakness. The patient has a warm and well-perfused upper extremity with capillary refill less than 2 seconds. Sensation is intact to light touch in terminal nerve distributions. The patient has no palpable epitrochlear lymphadenopathy. Imaging: X-Rays: 3 views right shoulder personally reviewed demonstrate no acute abnormalities. Evidence of sternal wires. MRI right shoulder personally reviewed demonstrating a partial-thickness rotator cuff tear with no full-thickness component. There is capsular edema consistent with adhesive capsulitis. Procedures: Large Joint Arthro/Inj: R shoulder joint 01/26/2025 12:41 PM The procedure site was prepped in the usual sterile fashion. Site: R shoulder joint Medications: 80 mg triamcinolone acetonide 40 mg/mL Anesthetics: 4 mL lidocaine (PF) 10 mg/mL (1 %); 4 mL BUPivacaine (PF) 0.5 % (5 mg/mL) Outcome: Tolerated well, no immediate complications Post-injection instructions were reviewed with the patient and the patient voiced understanding of these instructions. Informed Consent [place] Protocol SIGN IN Sign in communication not applicable due to emergent procedure. TIME OUT Relevant labs, photos, and/or imaging studies have been reviewed. Consent documented and matches the intended procedure. Assessment/Plan 59-year-old female with right shoulder partial rotator cuff tear, possible adhesive capsulitis - I discussed treatment options with the patient. I discussed the risk of right shoulder subacromial injection including bleeding, infection, continued pain, and she elected to proceed. This was administered in office without complication. See procedure note. Postinjection instructions given to patient. It is possible she is in the inflammatory phase of adhesive capsulitis following her cervical spine surgery. I will see her back in 6 weeks to monitor her progress. All questions were answered at today's visit. Marlee Overton MD 01/26/2025 12:40 PM Robbie Lechuga LPN 01/26/2025 12:42 PM Signed Prepared medication injection 4ml of lidocaine, 4ml of bupivacaine, and 2ml of triamcinolone a for provider to administer to patient per order. Once prepared medication was handed to provider to administer to patient. Robbie Lechuga LPN Allergies As of Date: 01/26/2025 (No Known Allergies) Date Reviewed: 01/26/2025 Reviewed by: Marlee Overton MD - Fully Assessed Reason for Visit: Follow Up [171] Results - Mri [3561] Primary Visit Diagnosis:Traumatic tear of right (more content not included)... Normal [facility] Large Joint Arthro/Inj: R sh oulder jointon 01-26-2025 Marlee Overton MD 01/26/2025 12:42 PM Large Joint Arthro/Inj: R shoulder joint 01/26/2025 12:41 PM The procedure site was prepped in the usual sterile fashion. Site: R shoulder joint Medications: 80 mg triamcinolone acetonide 40 mg/mL Anesthetics: 4 mL lidocaine (PF) 10 mg/mL (1 %); 4 mL BUPivacaine (PF) 0.5 % (5 mg/mL) Outcome: Tolerated well, no immediate complications Post-injection instructions were reviewed with the patient and the patient voiced understanding of these instructions. Informed Consent [place] Protocol SIGN IN Sign in communication not applicable due to emergent procedure. TIME OUT Relevant labs, photos, and/or imaging studies have been reviewed. Consent documented and matches the intended procedure. [facility] CNTHERAPYon 01-25-2025 CNTHERAPY OT/PT/Speech Visit (PTWS) CHIDI MUSA ([id number]) 1965 F Date Time Provider Department 01/25/25 11:00 AM MANUELA LIANG PTMERARY Date Time Provider Department [place] 01/25/2025 11:00 AM [id number], MARIAH PTWS Vickie Sam Reason for Visit: Physical Therapy [503] Primary Visit Diagnosis:Chronic right shoulder pain [M25.511, G89.29] Other Visit Diagnosis:S/P cervical spinal fusion [Z98.1] Allergies As of Date: 01/25/2025 (No Known Allergies) Date Reviewed: 01/19/2025 Reviewed by: Marlee Overton MD - Fully Assessed Prescriptions as of 01/25/2025 - tiZANidine (ZANAFLEX) 4 mg tablet TAKE 1 TABLET BY MOUTH EVERY 6 HOURS NEEDED - oxyCODONE IR (ROXICODONE) 10 mg tab - pregabalin (LYRICA) 150 mg capsule Take 1 capsule by mouth three times a day for 30 days. - acetaminophen (TYLENOL) 500 mg tablet Take 2 tablets by mouth every 6 hours. - Ykpgw-2-LCW-EPA-Fish Oil (FISH OIL) 1,000 (120-180) mg cap Take 2 g by mouth once daily. Last dose 11/09 due to surgery - JANUMET 50-1,000 mg per tablet Take 1 tablet by mouth two times a day with meals. - ARIPiprazole (ABILIFY) 5 mg tablet Take 5 mg by mouth once daily. - cariprazine (VRAYLAR) 1.5 mg capsule Take 1.5 mg by mouth once daily. - JARDIANCE 10 mg tablet Take 10 mg by mouth once daily. - fluconazole (DIFLUCAN) 100 mg tablet Take 100 mg by mouth as needed (yeast infections). - fluticasone (FLONASE) 50 mcg/actuation nasal spray Use 2 Sprays in each nostril once daily. - hydrOXYzine HCl (ATARAX) 25 mg tablet Take 25 mg by mouth once daily. - lidocaine (LIDODERM) 5 % Apply 1 Patch as directed every 12 hours. ARMS - methocarbamol (ROBAXIN) 500 mg tablet Take 1,000 mg by mouth four times a day as needed (PAIN). - aspirin 81 mg cap Take 81 mg by mouth once daily. Dr. Quintana manages. No instructions given - albuterol HFA (PROVENTIL HFA, VENTOLIN HFA) 90 mcg/actuation inhaler Inhale 1-2 Puffs as instructed every 6 hours as needed for wheezing/shortness of breath. - atorvastatin (LIPITOR) 40 mg tablet Take 40 mg by mouth once daily. - clopidogrel (PLAVIX) 75 mg tablet Take 75 mg by mouth once daily. Dr. Quintana manages - fluticasone-salmetero l (ADVAIR, WIXELA) 250-50 mcg/dose inhaler Inhale 1 Inhalation as instructed two times a day. - metoprolol succinate ER (TOPROL XL) 25 mg 24 hr tablet Take 25 mg by mouth once daily. - pantoprazole DR (PROTONIX) 40 mg tablet Take 40 mg by mouth every afternoon. [facility] MRI SHOULDER WO IVCON RTon 0 01-21-2025 MRI SHOULDER WO IVCON RT * * *Final Report* * * DATE OF EXAM: Jan 21 2025 8:09AM WR [id number] - MRI SHOULDER WO IVCON RT / PROCEDURE REASON: Traumatic tear of right rotator cuff, unspecified tear extent, initial encounter * * * * Physician Interpretation * * * * EXAMINATION: MRI SHOULDER WO IVCON RT HISTORY: Fall August 2024 with persistent right shoulder pain and decreased range of motion. TECHNIQUE: Routine non-contrast MRI of the shoulder. MQ: [id number] COMPARISON: Radiographs 01/12/2025 RESULT: TENDONS: Rotator cuff tendons: -Supraspinatus: High grade bursal surface partial thickness (more than 50%) tear involving the anterior third of the tendon with background tendinosis -Infraspinatus: Intact with mild tendinosis -Subscapularis: Intact with mild tendinosis -Teres Minor: Intact tendon Biceps (Long head) Tendon: Intact , with medial perching in the bicipital groove MUSCLES: Rotator cuff muscles: -Supraspinatus: Preserved bulk and no fatty changes. -Infraspinatus: Preserved bulk and no fatty changes. -Subscapularis: Preserved bulk and no fatty changes. -Teres Minor: Preserved bulk and no fatty changes. Other muscles: Preserved signal and bulk in the deltoid. JOINTS: Glenohumeral Joint: -Labrum: Tear in the superior labrum -Cartilage: Normal -Joint Fluid: No effusion . No synovitis. Mild diffuse capsular thickening and edema. Acromioclavicular Joint: Mild hypertrophic degenerative changes BONES AND MARROW: No evidence of fracture or suspicious bone marrow replacing process OTHER: Subdeltoid/Subacromia l Bursa: Normal Other: No other significant findings. Localizer images: No additional findings. IMPRESSION: Rotator cuff tendinosis with small high-grade partial-thickness supraspinatus rotator cuff tear at the leading edge. No atrophy. Capsular edema and thickening which can be seen with adhesive capsulitis. Superior labral tear. 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: PSCB Transcribe Date/Time: Jan 21 2025 8:25A Dictated by : JOSÉ LUIS MOSS, DO This examination was interpreted and the report reviewed and electronically signed by: BASIM GO MD on Jan 21 2025 8:44AM EST [id number] [facility] CNOVon 01-19-2025 CNOV Office Visit (AGHWG1 ) CHIDI MUSA ([id number]) 1965 F Date Time Provider Department 01/19/25 10:15 AM MARLEE OVERTON [id number] During your visit today, we recorded the following information about you: Respiration Weight Height 18/minute 75.3 kg 1.575 m Marlee Overton MD 01/19/2025 10:43 AM Signed Marlee Overton MD Orthopedic Sports Medicine Surgery [address] [place] [address] [id number] [place] [address] Dr [facility] [address] [address] NAME: Chidi Musa : 1965 DATE: 01/19/2025 Reason for Visit/Chief Complaint: Right shoulder pain History of present illness: Chidi is a 59 year old female who presents as a consultation requested by Dr. Mayank Sheehan for an opinion regarding right shoulder pain. My final recommendations will be communicated back to the requesting physician by way of shared medical record or letter via US mail. The patient states she had a fall in August when she fell off a pickup truck. She was evaluated in the emergency department and eventually had surgery by Dr. Sheehan for her cervical spine. The patient states since her fall, she has been unable to lift her right arm. She has had extreme pain in her right shoulder going down her right arm into her elbow. She cannot sleep due to her pain. Today in my office, she is in exquisite pain. She does started physical therapy postoperative after her cervical spine. She states prior to her fall, she was having no right shoulder pain. She is right-hand dominant. 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 She used to smoke but has not smoked recently. I have reviewed and updated the patient's past medical history, past surgical history, social history, and family history. This is located both in the patient's note and their intake form that has been scanned into the medical record for today's visit. 14 point review of systems was reviewed per signed intake sheet and is otherwise negative except as noted above. Objective: Constitutional: Well developed, well nourished, no acute distress HEENT: mucous membranes moist, normocephalic atraumatic Psychologic: appropriate mood and affect Chest: bilateral chest elevations, symmetric Cardiovascular: pink extremities, peripheral perfusion intact Respiratory: no respiratory distress, nonlabored on room air Abdomen: soft, nontender Neurologic: orientation to person, place and time Right SHOULDER EXAM Examination of the right shoulder very limited due to patient's pain. She has exquisite tenderness palpation around her entire right arm. She has active forward elevation 20 degrees. Passive forward elevation 90 degrees with significant pain. External rotation 30 degrees. Internal rotation to hip with significant pain. Unable to assess strength due to patient's significant pain and weakness. The patient has a warm and well-perfused upper extremity with capillary refill less than 2 seconds. Sensation is intact to light touch in terminal nerve distributions. The patient has no palpable epitrochlear lymphadenopathy. Imaging: X-Rays: 3 views right shoulder personally reviewed demonstrate no acute abnormalities. Evidence of sternal wires. 3 views left shoulder ordered, obtained, reviewed in office today demonstrate no acute abnormalities. Assessment/Plan 59-year-old female with extreme right shoulder pain and weakness with unable to lift arm after fall in August 2024. - I discussed treatment options with the patient. This time, I will order an MRI to rule out a traumatic full-thickness rotator cuff tear. Patient is having pain out of proportion I discussed treatment options with the patient. This time, I will order an MRI to rule out a traumatic full-thickness rotator cuff tear. Patient is having pain out of proportion I did place a physical therapy order to start gentle range of motion exercises prior to MRI completion. Will continue to monitor patient for Left shoulder pain, unspecified chronicity (primary encounter diagnosis) Traumatic tear of right rotator cuff, unspecified tear extent, initial encounter, patient to schedule visit as per follow up discussed. Marlee Overton MD 01/19/2025 Referring Provider: MAYANK SHEEHAN [[id number]] Allergies As of Date: 01/19/2025 (No Known Allergies) Date Reviewed: 01/19/2025 Reviewed by: Marlee Overton MD - Fully Assessed Reason for Visit: New [785667] Pain [78] New [463301] Pain [78] Primary Visit Diagnosis:Left shoulder pain, unspecified chronicity [M25.512] Other Visit Diagnosis:Traumatic tear of right rotator cuff, unspecified tear extent, initial encounter [S46.011A] Order(s):XR SHOULDER GENERAL 3V OR MORE AP/TRUE AP/OTHER LEFT [8301721] Order #: [id number] CONSULT TO PHYSICAL THERAPY [9032] Order #: [id number]: 1 FUTURE MRI SHOULDER WO IVCON RIGHT [37987 (more content not included)... [facility] XR Shoulder - left 3 Viewson 01-19-2025 3 views left shoulde r ordered, obtained, reviewed in office today demonstrate no acute abnormalities. [facility] Radiology Study observation (narrative) [facility] [id number] 01-13-2025 [id number] HNO ID: [id number] Author: SARA WISEMAN PT Service: ? Author Type: Physical Therapist Type: [id number] Filed: 01/13/2025 15:35 Note Text: [facility] Sports Therapy Physical Therapy Plan of Care Certification Patient Name: Chidi Musa : 1965 [facility] #: [id number] Date: 01/13/2025 To: Mayank Sheehan MD From Therapist: Sara Wiseman PT RE: Patient Certification/ Recertification Your review, approval and electronic signature are required in order to comply with Payor: MEDICARE / Plan: MEDICARE A AND B / Product Type: Medicare / regulations. 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 The patient presents with impairments in ADL's, independence in exercise, overall function, range of motion, strength, symptom management, and tissue tenderness. PROMIS? (Patient-Reported Outcomes Measurement Information System) scores were reviewed and identified as a rehabilitation concern. Prognosis for therapy is Fair due to: clinical presentation, multiple co- morbidities, chronic nature of impairments, limited tolerance to activity, limited support system. The patient will benefit from skilled therapy services to meet the goals established for this plan of care as noted below. Goals for Episode of Care: established 01/13/25 Patient reported outcome of physical function will increase T-score by a minimum 5 points. Boles in home exercise program. Patient will decrease R shoulder pain rating by 2 points to meet minimal clinical important difference for numeric pain rating scale. Patient will increase active ROM of R shoulder to WFL, symmetrical and pain-free to allow pt to to improve performance of ADLs. Perform reaching, lifting, dressing and grooming with decreased report of symptoms/pain in 6 weeks. Patient will decrease neck pain rating by 2 points to meet minimal clinical important difference for numeric pain rating scale. Restore pain free cervical ROM to WFL to allow for improved tolerance with design tech. Sleep throughout the night without pain/symptoms. Patient will increase strength of postural muscles to WFL to allow for improve ability to maintain proper posture, improve mechanics, and decrease pain. Patient Goals: decrease pain and be able to plant lira this spring. Walk dog Time Frame for Goals and Treatment : 02/24/25 Planned Interventions, Frequency, and Duration: Current Frequency: 2x/week Duration: 6 weeks Total Number of Visits Planned: 12 Planned Treatment Interventions: Therapeutic exercise (97099), Neuromuscular re-education (65179), Manual therapy (13130), Therapeutic activities (96538), Self-[facility] management (28322), Patient/Family/Caregi lena Education, Body Mechanics Training PLAN FOR NEXT VISIT: Review, correct and progress HEP to tolerance. Focus on AROM and pain control through therex for R shoulder and cervical spine. Postural strengthening should be considered as well as gentle stretching of cervical spine musculature. Patient demonstrates good understanding of plan of care and treatment. The above goals and plan of care were discussed and agreed upon by patient/family. For further details regarding this patient refer to the Physical Therapy electronically documented visit dated 01/13/2025. Provider Attestation I have reviewed the treatment plan for Chidi Paige Musa, F# [id number] for the period of 01/13/25 -- 02/24/25, established on 01/13/2025. Signature certifies the need for therapy services. [facility] CNTHERAPYon 01-13-2025 CNTHERAPY OT/PT/Speech Visit (PTWS) EVACHIDI L ([id number]) 1965 F Date Time Provider Department 01/13/25 9:00 AM SARA WISEMAN PTWS Date Time Provider Department [place] 01/13/2025 9:00 AM [id number], BRENT PTWS Vickie Sam Reason for Visit: PT Eval [747] Physical Therapy [503] Visit Diagnoses:Status post cervical spinal fusion [Z98.1] Chronic right shoulder pain [M25.511, G89.29] Allergies As of Date: 01/13/2025 (No Known Allergies) Date Reviewed: 01/12/2025 Reviewed by: Hina Torres MA - Fully Assessed Prescriptions as of 01/13/2025 - tiZANidine (ZANAFLEX) 4 mg tablet Take 1 tablet by mouth every 6 hours as needed. - pregabalin (LYRICA) 150 mg capsule Take 1 capsule by mouth three times a day for 30 days. - acetaminophen (TYLENOL) 500 mg tablet Take 2 tablets by mouth every 6 hours. - Ebrap-2-XVF-EPA-Fish Oil (FISH OIL) 1,000 (120-180) mg cap Take 2 g by mouth once daily. Last dose 11/09 due to surgery - JANUMET 50-1,000 mg per tablet Take 1 tablet by mouth two times a day with meals. - ARIPiprazole (ABILIFY) 5 mg tablet Take 5 mg by mouth once daily. - cariprazine (VRAYLAR) 1.5 mg capsule Take 1.5 mg by mouth once daily. - JARDIANCE 10 mg tablet Take 10 mg by mouth once daily. - fluconazole (DIFLUCAN) 100 mg tablet Take 100 mg by mouth as needed (yeast infections). - fluticasone (FLONASE) 50 mcg/actuation nasal spray Use 2 Sprays in each nostril once daily. - hydrOXYzine HCl (ATARAX) 25 mg tablet Take 25 mg by mouth once daily. - lidocaine (LIDODERM) 5 % Apply 1 Patch as directed every 12 hours. ARMS - methocarbamol (ROBAXIN) 500 mg tablet Take 1,000 mg by mouth four times a day as needed (PAIN). - aspirin 81 mg cap Take 81 mg by mouth once daily. Dr. Quintana manages. No instructions given - albuterol HFA (PROVENTIL HFA, VENTOLIN HFA) 90 mcg/actuation inhaler Inhale 1-2 Puffs as instructed every 6 hours as needed for wheezing/shortness of breath. - atorvastatin (LIPITOR) 40 mg tablet Take 40 mg by mouth once daily. - clopidogrel (PLAVIX) 75 mg tablet Take 75 mg by mouth once daily. Dr. Quintana manages - fluticasone-salmetero l (ADVAIR, WIXELA) 250-50 mcg/dose inhaler Inhale 1 Inhalation as instructed two times a day. - metoprolol succinate ER (TOPROL XL) 25 mg 24 hr tablet Take 25 mg by mouth once daily. - pantoprazole DR (PROTONIX) 40 mg tablet Take 40 mg by mouth every afternoon. Ticket Sales Supervisor: Addendum Therapy (PT/OT/Speech/Resp) ID: [id number] 01/13/2025 9:55 AM Author: SARA WISEMAN Signed by SARA WISEMAN PT on 01/13/2025 at 9:55 AM * * * This document replaces document [id number] * * * Document text: Program_ID:[id number] Access Code: [email or web address] URL: [email or web address] Date: 01-13-2025 Prepared By: Sara Wiseman Program Notes Exercises - Seated Cervical Flexion AROM - 3 x daily - 7 x weekly - 2 sets - 10 reps - Seated Cervical Extension AROM - 3 x daily - 7 x weekly - 2 sets - 10 reps - Seated Cervical Sidebending AROM - 3 x daily - 7 x weekly - 2 sets - 10 reps - Seated Cervical Rotation AROM - 3 x daily - 7 x weekly - 2 sets - 10 reps ----- [facility] THERAPY NTon 01-13-2025 THERAPY NT HNO ID: [id number] Author: SARA WISEMAN PT Service: ? Author Type: Physical Therapist Type: Therapy (PT/OT/Speech/Resp) Filed: 01/13/2025 09:55 Note Text: Program_ID:[id number] Access Code: [email or web address] URL: [email or web address] Date: 01-13-2025 Prepared By: Sara Wiseman Program Notes Exercises - Seated Cervical Flexion AROM - 3 x daily - 7 x weekly - 2 sets - 10 reps - Seated Cervical Extension AROM - 3 x daily - 7 x weekly - 2 sets - 10 reps - Seated Cervical Sidebending AROM - 3 x daily - 7 x weekly - 2 sets - 10 reps - Seated Cervical Rotation AROM - 3 x daily - 7 x weekly - 2 sets - 10 reps [facility] CNOVon 01-12-2025 CNOV Office Visit ([facility] ) CHIDI MUSA ([id number]) 1965 F Date Time Provider Department 01/12/25 9:45 AM MAYANK SHEEHAN [facility] During your visit today, we recorded the following information about you: Hina Torres MA 01/12/2025 9:28 AM Signed 59 y/o female presents to office for a routine post op appointment. She is wearing the cervical collar as prescribed. Xrays obtained. The pain is radiating down the right arm. She doesn't believe she has had a muscle relaxer Mayank Sheehan MD 01/12/2025 9:28 AM Signed Mayank Sheehan MD [facility] - Orthopaedic Spine Surgeon [address], [address], [place] [address] [place] [address], [address], [place] [address] Phone: [phone] FAX: [phone] Spine Surgery Post-op Follow-up Service Date: 01/12/2025 Surgery Date: 11/30/2024 Surgery(ies): C4-6 PSF, C5 laminectomy Pre-operative Symptoms: Cervical spine pain with radiation to bilateral upper extremities, bilateral upper extremity weakness, gait imbalance, dexterity issues HPI: Chidi Musa is seen for 6 week post operative follow up. She is doing very well. Has some continued pain in the posterior cervical spine but this is well-controlled with pain medication. Feels that strength, numbness, dexterity, and balance have all improved. She has been compliant with cervical collar wear. Chidi reports persistent shoulder pain that is affecting her sleep. The pain is localized to the shoulder, axilla, and across the upper chest. It is exacerbated by arm elevation, external rotation, and palpation. She denies any recent falls or trauma. She also reports a sensation of a big knot at the base of her right ear, which she finds bothersome. She denies hand numbness and notes improved cervical range of motion. She has been using lidocaine patches for pain relief, but they have not been effective. She also reports that Oxycodone initially provided 2.5 hours of sleep but became ineffective after 2 nights. She inquires about the possibility of trying a muscle relaxer for pain management. ALLERGIES No Known Allergies Current Outpatient Medications Medication Sig Dispense Refill oxyCODONE IR (ROXICODONE) 5 mg immediate release tablet Take 1 tablet by mouth every 6 hours as needed for pain for up to 5 days. 20 tablet 0 acetaminophen (TYLENOL) 500 mg tablet Take 2 tablets by mouth every 6 hours. 720 tablet 0 Vktar-9-HYD-EPA-Fish Oil (FISH OIL) 1,000 (120-180) mg cap Take 2 g by mouth once daily. Last dose 11/09 due to surgery JANUMET 50-1,000 mg per tablet Take 1 tablet by mouth two times a day with meals. ARIPiprazole (ABILIFY) 5 mg tablet Take 5 mg by mouth once daily. JARDIANCE 10 mg tablet Take 10 mg by mouth once daily. fluconazole (DIFLUCAN) 100 mg tablet Take 100 mg by mouth as needed (yeast infections). fluticasone (FLONASE) 50 mcg/actuation nasal spray Use 2 Sprays in each nostril once daily. hydrOXYzine HCl (ATARAX) 25 mg tablet Take 25 mg by mouth once daily. lidocaine (LIDODERM) 5 % Apply 1 Patch as directed every 12 hours. ARMS methocarbamol (ROBAXIN) 500 mg tablet Take 1,000 mg by mouth four times a day as needed (PAIN). aspirin 81 mg cap Take 81 mg by mouth once daily. Dr. Quintana manages. No instructions given albuterol HFA (PROVENTIL HFA, VENTOLIN HFA) 90 mcg/actuation inhaler Inhale 1-2 Puffs as instructed every 6 hours as needed for wheezing/shortness of breath. atorvastatin (LIPITOR) 40 mg tablet Take 40 mg by mouth once daily. clopidogrel (PLAVIX) 75 mg tablet Take 75 mg by mouth once daily. Dr. Quintana manages fluticasone-salmetero l (ADVAIR, WIXELA) 250-50 mcg/dose inhaler Inhale 1 Inhalation as instructed two times a day. metoprolol succinate ER (TOPROL XL) 25 mg 24 hr tablet Take 25 mg by mouth once daily. pantoprazole DR (PROTONIX) 40 mg tablet Take 40 mg by mouth every afternoon. pregabalin (LYRICA) 150 mg capsule Take 1 capsule by mouth three times a day for 30 days. 90 capsule 1 cariprazine (VRAYLAR) 1.5 mg capsule Take 1.5 mg by mouth once daily. No current facility-administered medications for this visit. Physical Examination: Vital Signs: There were no vitals taken for this visit. General Appearance: Well nourished, well developed, and no apparent distress. Incision: Clean, dry, and intact. No active drainage. No erythema. Cervical collar in place in appropriate position. Sensory: Sensation intact to light touch in C5-T1 and L1-S1 dermatomes. Motor: Upper Extremities Right Left Deltoid (C5) 5 5 Biceps (C6) 5 5 Triceps (C7) 5 5 First Assistant (C8) 5 5 Interossei (T1) 5 5 Lower Extremities Right Left Psoas (L2) 5 5 Quadriceps (L3) 5 5 Dorsiflexion (L4) 5 5 EHL (L5) 5 5 Plantarflexion (S1) 5 5 Gait: Smooth reciprocal gait. Long Tract Signs: No clonus. Ruben's present bilaterally. Reflexes: S (more content not included)... [facility] XR CERVICAL 2V AP/LATon 12-29 XR CERVICAL 2V AP/LAT * * *Final Report* * * DATE OF EXAM: Jan 12 2025 8:36AM RHX 5308 - XR CERVICAL 2V AP/LAT / PROCEDURE REASON: S/P cervical spinal fusion * * * * Physician Interpretation * * * * XR CERVICAL 2V AP/LAT Ordering Physician: MAYANK SHEEHAN 01/12/2025 8:36 AM 4 VIEW CERVICAL SPINE: Clinical Statement: Status post cervical spinal fusion Comparison: Two-view cervical spine 12/15/2024 FINDINGS: Vertebral body C1-C7 are visualized. There is an anterior cervical fusion with osseous fusion of the vertebral bodies at C6-C7. A posterior spinal fusion is seen at C4 C5-6 and C5-C6. Laminectomies are seen in C4 and C5 no hardware failure or loosening there is mild degenerative disc disease at C5-C6 IMPRESSION: Stable postsurgical changes, no acute abnormality 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: PILLO Transcribe Date/Time: Jan 13 2025 10:24A Dictated by : ALLI ASHER MD This examination was interpreted and the report reviewed and electronically signed by: ALLI ASHER MD on Jan 13 2025 10:26AM EST [id number] N [facility] XR SHLDR >/=3V AP/BUTCH AP/OTH R RTon 01-12-2025 XR SHLDR >/=3V AP/BUTCH AP/OTHR RT * * *Final Report* * * DATE OF EXAM: Jan 12 2025 10:05AM RHX 5253 - XR SHLDR >/=3V AP/BUTCH AP/OTHR RT / PROCEDURE REASON: multiple diagnoses * * * * Physician Interpretation * * * * XR SHLDR >/=3V AP/BUTCH AP/OTHR RT Ordering Physician: MAYANK SHEEHAN Clinical Statement: Right shoulder pain with decreased range of motion FINDINGS: No fracture or dislocation. The glenohumeral relationship is normal. Moderate acromioclavicular degenerative change. No periarticular calcifications or erosive arthropathy. Postoperative changes in the cervical spine, partially visualized. IMPRESSION: No acute osseous abnormality. Moderate acromioclavicular degenerative change. 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: PSCB Transcribe Date/Time: Jan 14 2025 7:03A Dictated by : CAREY DAMON MD This examination was interpreted and the report reviewed and electronically signed by: CAREY DAMON MD on Jan 14 2025 7:03AM EST [id number] N [facility] 25(OH)D3 [facility] 2024 25-hydroxyvitamin D3 [Mass/Vol] 17.1 ng/mL Low 31.0-80.0 [facility] Comment on above: Order Comment: Speci men Type: BLOOD SPECIMENOrdering Facility: [facility] Address: [address] [place] [address] Result Comment: Clas sification of 25 [place] Vitamin D status: Deficiency/Insufficiency: < or = 30 ng/ml. Sufficiency/Optimal Levels: 31-80 ng/mL Toxicity: > 100 ng/mL. Test performed by chemiluminescent immunoassay. Performed By: #### 1 989-3 ####[facility] LABIA [id number] [place] [address] [place] ALBUMIN/CREATININE RATIO, UR [facility] 01-07-2025 Albumin DL <= 20 mg/L (U) [Mass/Vol] mg/dL [facility] Comment on above: Order Comment: Speci men Type: URINE SPECIMENOrdering Facility: [facility] Address: [address] [place] [address] Performed By: #### U ACR ####[facility] LABCLIA [id number] [place] [address] [place] Albumin/Creatinine (U) [Mass ratio] <25 Normal <30 [facility] Comment on above: Order Comment: Speci men Type: URINE SPECIMENOrdering Facility: [facility] Address: [address] [place] [address] Result Comment: Adul t Male and Female Nephrotic Criteria: <30 mg/g is considered normal to mildly increased 30-300 mg/g is considered moderately increased >300 mg/g is considered severely increased KDIGO. (2013). KDIGO 2012 Clinical Practice Guideline for the Evaluation and Management of Chronic Kidney Disease. Official Journal of the International Society of Nephrology, 3(1), 1-150. Performed By: #### U ACR ####[facility] LABCLIA [id number] [address] [place] Creatinine (U) [Mass/Vol] 47.1 mg/dL Normal 20.0-300.0 [facility] Comment on above: Order Comment: Maryellen gallardo Type: URINE SPECIMENOrdering Facility: [facility] Address: [address] [place] [address] Performed By: #### U ACR ####[facility] LABIA [id number] [address] [place] CBC panel Auto (Bld)on 01-07 Erythrocyte distribution width (RBC) [Ratio] 12.6 % Normal 11.5-15.0 [facility] Comment on above: Order Comment: Jadi men Type: BLOOD SPECIMENOrdering Facility: [facility] Address: [address] [place] [address] Performed By: #### 5 8410-2 ####[facility] LABIA [id number] [address] [place] Hematocrit (Bld) [Volume fraction] 50.4 % High 36.0-46.0 [facility] Comment on above: Order Comment: Jadi men Type: BLOOD SPECIMENOrdering Facility: [facility] Address: [address] [place] [address] Performed By: #### 5 8410-2 ####[facility] LABIA [id number] [address] OF [facility] Hemoglobin (Bld) [Mass/Vol] 16.7 g/dL High 11.5-15.5 [facility] Comment on above: Order Comment: Speci men Type: BLOOD SPECIMENOrdering Facility: [facility] Address: [address] [place] [address] Performed By: #### 5 8410-2 ####[facility] LABIA [id number] [address] [place] MCH (RBC) [Entitic mass] 29.9 pg Normal 26.0-34.0 [facility] Comment on above: Order Comment: Speci men Type: BLOOD SPECIMENOrdering Facility: [facility] Address: [address] [place] [address] Performed By: #### 5 8410-2 ####[facility] LABIA [id number] [address] MCHC (RBC) [Mass/Vol] 33.1 g/dL Normal 30.5-36.0 [facility] Comment on above: Order Comment: Speci men Type: BLOOD SPECIMENOrdering Facility: [facility] Address: [address] [place] [address] Performed By: #### 5 8410-2 ####[facility] LABIA [id number] [place] [id number] [place] [facility] MCV (RBC) [Entitic vol] 90.3 fL Normal 80.0-100.0 [facility] Comment on above: Order Comment: Speci men Type: BLOOD SPECIMENOrdering Facility: [facility] Address: [address] [place] [address] Performed By: #### 5 8410-2 ####[facility] LABCLIA [id number] [address] [address] [place] Nucleated RBC (Bld) [#/Vol] 10*3/uL Normal <0.01 [facility] Comment on above: Order Comment: Speci men Type: BLOOD SPECIMENOrdering Facility: [facility] Address: [address] [place] [address] Performed By: #### 5 8410-2 ####[facility] LABIA [id number] [place] [id number] [place] Platelet mean volume (Bld) [Entitic vol] 10.1 fL Normal 9.0-12.7 [facility] Comment on above: Order Comment: Speci men Type: BLOOD SPECIMENOrdering Facility: [facility] Address: [address] [place] [address] Performed By: #### 5 8410-2 ####[facility] LABIA [id number] [address] [place] Platelets (Bld) [#/Vol] 266 10*3/uL Normal 150-400 [facility] Comment on above: Order Comment: Speci men Type: BLOOD SPECIMENOrdering Facility: [facility] Address: [address] [place] [address] Performed By: #### 5 8410-2 ####[facility] LABIA [id number] [place] [id number] [place] RBC (Bld) [#/Vol] 5.58 10*6/uL High 3.90-5.20 [facility] Comment on above: Order Comment: Speci men Type: BLOOD SPECIMENOrdering Facility: [facility] Address: [address] [place] [address] Performed By: #### 5 8410-2 ####[facility] LABIA [id number] [place] [address] [place] WBC (Bld) [#/Vol] 10.61 10*3/uL Normal 3.70-11.00 [facility] Comment on above: Order Comment: Speci men Type: BLOOD SPECIMENOrdering Facility: [facility] Address: [address] [place] [address] Performed By: #### 5 8410-2 ####[facility] LABCLIA [id number] [place] [address] [place] Comprehensive metabolic 2000 panelon 01-07-2025 Albumin [Mass/Vol] 4.5 g/dL Normal 3.9-4.9 [facility] Comment on above: Order Comment: Speci men Type: BLOOD SPECIMENOrdering Facility: [facility] Address: [address] [place] [address] Performed By: #### 2 4323-8, 3016-3, 21681-6, 3024-7 ####[facility] LABCLIA [id number] [place] [address] [place] ALP [Catalytic activity/Vol] 70 U/L Normal 34-123 [facility] Comment on above: Order Comment: Speci men Type: BLOOD SPECIMENOrdering Facility: [facility] Address: [address] [place] [address] Performed By: #### 2 4323-8, 3016-3, 77003-9, 3024-7 ####[facility] LABCLIA [id number] [place] [address] [place] ALT [Catalytic activity/Vol] 22 U/L Normal 7-38 [facility] Comment on above: Order Comment: Speci men Type: BLOOD SPECIMENOrdering Facility: [facility] Address: [address] [place] [address] Performed By: #### 2 4323-8, 3016-3, 95150-8, 3024-7 ####[facility] LABCLIA [id number] [address] [address] [place] Anion gap [Moles/Vol] 14 mmol/L Normal 8-15 [facility] Comment on above: Order Comment: Speci men Type: BLOOD SPECIMENOrdering Facility: [facility] Address: [address] [place] [address] Performed By: #### 2 4323-8, 3016-3, 72696-1, 3024-7 ####[facility] LABCLIA [id number] [address] [address] [place] AST [Catalytic activity/Vol] 16 U/L Normal 13-35 [facility] Comment on above: Order Comment: Speci men Type: BLOOD SPECIMENOrdering Facility: [facility] Address: [address] [place] [address] Performed By: #### 2 4323-8, 3016-3, 13512-1, 3024-7 ####[facility] LABIA [id number] [address] [address] [place] Bilirubin [Mass/Vol] 0.9 mg/dL Normal 0.2-1.3 [facility] Comment on above: Order Comment: Speci men Type: BLOOD SPECIMENOrdering Facility: [facility] Address: [address] [place] [address] Performed By: #### 2 4323-8, 3016-3, 83782-2, 3024-7 ####[facility] LABCLIA [id number] [address] [address] [place] Calcium [Mass/Vol] 9.9 mg/dL Normal 8.5-10.2 [facility] Comment on above: Order Comment: Speci men Type: BLOOD SPECIMENOrdering Facility: [facility] Address: [address] [place] [address] Performed By: #### 2 4323-8, 3016-3, 34244-4, 3024-7 ####[facility] LABCLIA [id number] [address] [address] [place] Chloride [Moles/Vol] 103 mmol/L Normal 98-107 [facility] Comment on above: Order Comment: Speci men Type: BLOOD SPECIMENOrdering Facility: [facility] Address: [address] [place] [address] Performed By: #### 2 4323-8, 3016-3, 50514-7, 3024-7 ####[facility] LABIA [id number] [place] [address] [place] CO2 [Moles/Vol] 21 mmol/L Low 22-30 [facility] Comment on above: Order Comment: Speci men Type: BLOOD SPECIMENOrdering Facility: [facility] Address: [address] [place] [address] Performed By: #### 2 4323-8, 3016-3, 81945-7, 3024-7 ####[facility] LABIA [id number] [place] [address] [place] Creatinine [Mass/Vol] 0.59 mg/dL Normal 0.58-0.96 [facility] Comment on above: Order Comment: Speci men Type: BLOOD SPECIMENOrdering Facility: [facility] Address: [address] [place] [address] Performed By: #### 2 4323-8, 3016-3, 39935-7, 302-7 ####[facility] LABIA [id number] [place] [address] [place] Creatinine and Glomerular filtration rate.predicted panel (S/P/Bld) 103 mL/min/1.73m??? Normal >=60 [facility] Comment on above: Order Comment: Speci men Type: BLOOD SPECIMENOrdering Facility: [facility] Address: [address] [place] [address] Result Comment: Jacinta mated Glomerular Filtration Rate (eGFR) is calculated using the 2020 CKD-EPI creatinine equation. This equation utilizes serum creatinine, sex, and age as parameters. The creatinine assay has traceable calibration to isotope dilution-mass spectrometry. Refer to KDIGO guidelines for clinical interpretation. In patients with unstable renal function, e.g. those with acute kidney injury, the eGFR may not accurately reflect actual GFR. Performed By: #### 2 4323-8, 3016-3, 84569-9, 3023-7 ####[facility] LABCLIA [id number] [address] [address] [place] Glucose [Mass/Vol] 225 mg/dL High 74-99 [facility] Comment on above: Order Comment: Maryellen gallardo Type: BLOOD SPECIMENOrdering Facility: [facility] Address: [address] [place] [address] Result Comment: The [place] Diabetes Association (ADA) provides guidance for cutoff values for fasting glucose and random glucose. The ADA defines fasting as no caloric intake for at least 8 hours. Fasting plasma glucose results between 100 to 125 mg/dL indicate increased risk for diabetes (prediabetes). Fasting plasma glucose results greater than or equal to 126 mg/dL meet the criteria for diagnosis of diabetes. In the absence of unequivocal hyperglycemia, results should be confirmed by repeat testing. In a patient with classic symptoms of hyperglycemia or hyperglycemic crisis, random plasma glucose results greater than or equal to 200 mg/dL meet the criteria for diagnosis of diabetes. Reference: Standards of Medical Care in Diabetes 2016, [place] Diabetes Association. Diabetes Care. 2016.39(Suppl 1). Performed By: #### 2 4323-8, 3016-3, 90856-7, 302-7 ####[facility] LABIA [id number] [address] [address] [place] Potassium [Moles/Vol] 3.8 mmol/L Normal 3.7-5.1 [facility] Comment on above: Order Comment: Maryellen gallardo Type: BLOOD SPECIMENOrdering Facility: [facility] Address: [address] [place], [place] [address] Performed By: #### 2 4323-8, 3016-3, 91211-6, 3024-7 ####[facility] LABCLIA [id number] [facility] [address] [place] [address] [place] Protein [Mass/Vol] 7.5 g/dL Normal 6.3-8.0 [facility] Comment on above: Order Comment: Jadi men Type: BLOOD SPECIMENOrdering Facility: [facility] Address: [address] [place], [place] [address] Performed By: #### 2 4323-8, 3016-3, 38349-1, 302-7 ####[facility] LABCLIA [id number] [address] [address] [place] Sodium [Moles/Vol] 138 mmol/L Normal 136-144 [facility] Comment on above: Order Comment: Maryellen gallardo Type: BLOOD SPECIMENOrdering Facility: [facility] Address: [address] [place] [address] Performed By: #### 2 4323-8, 3016-3, 38714-1, 302-7 ####[facility] LABCLIA [id number] [address] [address] [place] Urea nitrogen [Mass/Vol] 12 mg/dL Normal 7-21 [facility] Comment on above: Order Comment: Maryellen gallardo Type: BLOOD SPECIMENOrdering Facility: [facility] Address: [address] [place] [address] Performed By: #### 2 4323-8, 3016-3, 86134-9, 3024-7 ####[facility] LABCLIA [id number] [address] [address] [place] HbA1c (Bld)on 01-07-2025 Average glucose Estimated from glycated hemoglobin (Bld) [Mass/Vol] 183 mg/dL Normal [facility] Comment on above: Order Comment: Speci men Type: BLOOD SPECIMENOrdering Facility: [facility] Address: [address] [place] [address] Result Comment: eAG: (Estimated average glucose) is a calculated value from HgbA1c and is shipping services sales representative of the average blood glucose level in the last 2-3 month period. Performed By: #### 5 5454-3 ####[facility] LABCLIA [id number] [address] [address] [place] HbA1c (Bld) [Mass fraction] 8.0 % High 4.3-5.6 [facility] Comment on above: Order Comment: Maryellen [facility] Type: BLOOD SPECIMENOrdering Facility: [facility] Address: [address] [place] [address] Result Comment: Leo [place] Diabetes Association guidelines indicate that patients with HgbA1c in the range 5.7-6.4% are at increased risk for development of diabetes, and intervention by lifestyle modification may be beneficial. HgbA1c greater or equal to 6.5% is considered diagnostic of diabetes. Performed By: #### 5 5454-3 ####[facility] LABCLIA [id number] [address] [address] [place] Lipid 1996 panelon 5 Cholesterol [Mass/Vol] 195 mg/dL Normal <200 [facility] Comment on above: Order Comment: Maryellen [facility] Type: BLOOD SPECIMENOrdering Facility: [facility] Address: [address] [place] [address] Result Comment: <200 mg/dL, Desirable 200-239 mg/dL, Borderline high >239 mg/dL, High Performed By: #### 2 4323-8, 3016-3, 82392-1, 3024-7 ####[facility] LABCLIA [id number] [address] [address] [place] Cholesterol in HDL [Mass/Vol] 39 mg/dL Low >39 [facility] Comment on above: Order Comment: Maryellen [facility] Type: BLOOD SPECIMENOrdering Facility: [facility] Address: [address] [place] [address] Result Comment: 40-5 9 mg/dL, Acceptable >59 mg/dL, High: Negative risk factor for coronary heart disease <40 mg/dL, Low: Positive risk factor for coronary heart disease Performed By: #### 2 4323-8, 3016-3, 54123-2, 302-7 ####[facility] LABCLIA [id number] [place] [address] [facility] Cholesterol in LDL [Mass/Vol] 122 mg/dL High <100 [facility] Comment on above: Order Comment: Maryellen gallardo Type: BLOOD SPECIMENOrdering Facility: [facility] Address: [address] [place] [address] Result Comment: <100 mg/dL, Optimal 100-129 mg/dL, Near optimal/above optimal 130-159 mg/dL, Borderline high 160-189 mg/dL, High >189 mg/dL, Very high Secondary prevention optimal LDL Cholesterol levels are recommended to be < 70 mg/dL Performed By: #### 2 4323-8, 3016-3, 05636-4, 7 ####[facility] LABCLIA [id number] [address] [place] Cholesterol in LDL/Cholesterol in HDL [Mass ratio] 3.13 {ratio} High <2.54 [facility] Comment on above: Order Comment: Maryellen gallardo Type: BLOOD SPECIMENOrdering Facility: [facility] Address: [address] [place] [address] Result Comment: Refe rence: 1. National Cholesterol Education Program ATP III Guideline At-A-Glance Quick Desk Reference: National Heart, Lung, and Blood [place]. National Institutes of Health. 2001: NIH Publication No. 01-3305. 2. An International Atherosclerosis Society position paper: global recommendations for the management of dyslipidemia: executive summary, Atherosclerosis. 2014: 232(2):410-413. Performed By: #### 2 4323-8, 3016-3, 30718-4, 3023-7 ####[facility] LABCLIA [id number] [address] [address] [place] Cholesterol in VLDL [Mass/Vol] 34 mg/dL High <30 [facility] Comment on above: Order Comment: Speci men Type: BLOOD SPECIMENOrdering Facility: [facility] Address: [address] [place] [address] Performed By: #### 2 4323-8, 6-3, 12089-4, 3023-7 ####[facility] LABCLIA [id number] [address] [address] [place] Cholesterol non HDL [Mass/Vol] 156 mg/dL High <130 [facility] Comment on above: Order Comment: Speci men Type: BLOOD SPECIMENOrdering Facility: [facility] Address: [address] [place] [address] Result Comment: <130 mg/dL, Optimal 130-159 mg/dL, Near optimal/above optimal 160-189 mg/dL, Borderline high 190-219 mg/dL, High >219 mg/dL, Very high Secondary prevention optimal non HDL Cholesterol levels are recommended to be <100 mg/dL Performed By: #### 2 4323-8, 6-3, 82492-9, 7 ####[facility] LABCLIA [id number] [address] [place] [address] [place] Cholesterol.total/Ch olesterol in HDL [Mass ratio] 5.00 {ratio} Normal <5.10 [facility] Comment on above: Order Comment: Speci men Type: BLOOD SPECIMENOrdering Facility: [facility] Address: [address] [place] [address] Performed By: #### 2 4323-8, 6-3, 27616-8, 3023-7 ####[facility] LABCLIA [id number] [address] [address] [place] FASTING TIME 12 hrs Normal [facility] Comment on above: Order Comment: Speci men Type: BLOOD SPECIMENOrdering Facility: [facility] Address: [address] [place] [address] Performed By: #### 2 4323-8, 3016-3, 91073-0, 3027 ####[facility] LABCLIA [id number] [address] [address] [place] Triglyceride [Mass/Vol] 169 mg/dL High <150 [facility] Comment on above: Order Comment: Speci men Type: BLOOD SPECIMENOrdering Facility: [facility] Address: [address] [place] [address] Result Comment: <150 mg/dL, Normal 150-199 mg/dL, Borderline high 200-499 mg/dL, High >499 mg/dL, Very high Performed By: #### 2 4323-8, 3016-3, 32230-9, 3024-03 ####[facility] LABCLIA [id number] [address] [place] [address] [place] T4 Free SerPl-mCncon 025 Free T4 [Mass/Vol] 1.6 ng/dL Normal 0.9-1.7 [facility] Comment on above: Order Comment: Speci men Type: BLOOD SPECIMENOrdering Facility: [facility] Address: [address] [place] [address] Performed By: #### 2 4323-8, 3016-3, 34777-8, 7 ####[facility] LABCLIA [id number] [address] [address] [place] TSH SerPl-aCncon 01-07-2025 TSH Qn 1.330 m[IU]/L Normal 0.270-4.200 [facility] Comment on above: Order Comment: Speci men Type: BLOOD SPECIMENOrdering Facility: [facility] Address: [address] [place] [address] Performed By: #### 2 4323-8, 3016-3, 29245-5, 3024-7 ####[facility] VALERIE [id number] [address] [place] James 01-06-2025 CNPN Telephone ([facility]) CHIDI MUSA ([id number]) 1965 F Date Time Provider Department 01/06/25 MAYANK SHEEHAN [facility] During your visit today, we recorded the following information about you: Isaiah Quintana 01/06/2025 1:30 PM Signed Spoke to patient I requested her to have x-rays done before seeing Dr Sheehan on 01-12-25, she will do so Allergies As of Date: 01/06/2025 (No Known Allergies) Date Reviewed: 12/15/2024 Reviewed by: Hina Torres MA - Fully Assessed Prescriptions as of 01/06/2025 - pregabalin (LYRICA) 150 mg capsule Take 1 capsule by mouth three times a day for 30 days. - acetaminophen (TYLENOL) 500 mg tablet Take 2 tablets by mouth every 6 hours. - Otsiq-1-OVO-EPA-Fish Oil (FISH OIL) 1,000 (120-180) mg cap Take 2 g by mouth once daily. Last dose 11/09 due to surgery - JANUMET 50-1,000 mg per tablet Take 1 tablet by mouth two times a day with meals. - ARIPiprazole (ABILIFY) 5 mg tablet Take 5 mg by mouth once daily. - cariprazine (VRAYLAR) 1.5 mg capsule Take 1.5 mg by mouth once daily. - JARDIANCE 10 mg tablet Take 10 mg by mouth once daily. - fluconazole (DIFLUCAN) 100 mg tablet Take 100 mg by mouth as needed (yeast infections). - fluticasone (FLONASE) 50 mcg/actuation nasal spray Use 2 Sprays in each nostril once daily. - hydrOXYzine HCl (ATARAX) 25 mg tablet Take 25 mg by mouth once daily. - lidocaine (LIDODERM) 5 % Apply 1 Patch as directed every 12 hours. ARMS - methocarbamol (ROBAXIN) 500 mg tablet Take 1,000 mg by mouth four times a day as needed (PAIN). - aspirin 81 mg cap Take 81 mg by mouth once daily. Dr. Quintana manages. No instructions given - albuterol HFA (PROVENTIL HFA, VENTOLIN HFA) 90 mcg/actuation inhaler Inhale 1-2 Puffs as instructed every 6 hours as needed for wheezing/shortness of breath. - atorvastatin (LIPITOR) 40 mg tablet Take 40 mg by mouth once daily. - clopidogrel (PLAVIX) 75 mg tablet Take 75 mg by mouth once daily. Dr. Quintana manages - fluticasone-salmetero l (ADVAIR, WIXELA) 250-50 mcg/dose inhaler Inhale 1 Inhalation as instructed two times a day. - metoprolol succinate ER (TOPROL XL) 25 mg 24 hr tablet Take 25 mg by mouth once daily. - pantoprazole DR (PROTONIX) 40 mg tablet Take 40 mg by mouth every afternoon. Problem List As Of Date 01/06/2025 Noted Resolved Cervical spondylosis with myelopathy [M47.12] 09/28/2024 Other chronic pain [G89.29] 11/10/2024 Long-term current use of opiate analgesic [Z79.*11/10/2024 Lumbosacral spondylosis without myelopathy [M47*11/10/2024 Preop testing [Z01.818] 11/26/2024 Cervical myelopathy (HCC) [G95.9] 11/30/2024 CAD (coronary artery disease) [I25.10] 11/30/2024 Sleep apnea [G47.30] 11/30/2024 History of coronary artery bypass graft [Z95.1] 11/30/2024 Stented coronary artery [Z95.5] 11/30/2024 HTN (hypertension) [I10] 11/30/2024 Diabetes mellitus, type 2 (HCC) [E11.9] 11/30/2024 Arthritis [M19.90] 11/30/2024 History of psychiatric care [Z92.89] 11/30/2024 Obesity, Class I, BMI 30-34.9 [E66.811] 11/30/2024 Other specified postprocedural states [Z98.890] 12/08/2024 Status post arthrodesis [Z98.1] 12/08/2024 Encounter Status:Closed by ISAIAH QUINTANA on 01/06/25 [facility] CNPN Telephone ([employer]) CHIDI MUSA ([id number]) 1965 F Date Time Provider Department 01/06/25 MAYANK SHEEHAN [facility] During your visit today, we recorded the following information about you: Kaleb Schultz LPN 01/06/2025 1:42 PM Signed Patient called with c/o having increased pain and spasms to Rt arm. Patient has very little relief with Tramadol 50 mg. Pain on average is an 8, but today patient rates pain a 10. She has been using a heating pad, and OTC cream for pain as well. Patient wanting to know if she can increase the Tramadol or try a different pain medication. Kaleb Schultz LPN Allergies As of Date: 01/06/2025 (No Known Allergies) Date Reviewed: 12/15/2024 Reviewed by: Hina Torres MA - Fully Assessed Reason for Visit: Patient Question [4939] Primary Visit Diagnosis:Status post cervical spinal fusion [Z98.1] Order(s):oxyCODONE IR (ROXICODONE) 5 mg immediate release tabletTake 1 tablet by mouth every 6 hours as needed for pain for up to 5 days.Disp: 20 tabletRfl: 0 Prescriptions as of 01/07/2025 - oxyCODONE IR (ROXICODONE) 5 mg immediate release tablet Take 1 tablet by mouth every 6 hours as needed for pain for up to 5 days. - pregabalin (LYRICA) 150 mg capsule Take 1 capsule by mouth three times a day for 30 days. - acetaminophen (TYLENOL) 500 mg tablet Take 2 tablets by mouth every 6 hours. - Wudlk-4-KVN-EPA-Fish Oil (FISH OIL) 1,000 (120-180) mg cap Take 2 g by mouth once daily. Last dose 11/09 due to surgery - JANUMET 50-1,000 mg per tablet Take 1 tablet by mouth two times a day with meals. - ARIPiprazole (ABILIFY) 5 mg tablet Take 5 mg by mouth once daily. - cariprazine (VRAYLAR) 1.5 mg capsule Take 1.5 mg by mouth once daily. - JARDIANCE 10 mg tablet Take 10 mg by mouth once daily. - fluconazole (DIFLUCAN) 100 mg tablet Take 100 mg by mouth as needed (yeast infections). - fluticasone (FLONASE) 50 mcg/actuation nasal spray Use 2 Sprays in each nostril once daily. - hydrOXYzine HCl (ATARAX) 25 mg tablet Take 25 mg by mouth once daily. - lidocaine (LIDODERM) 5 % Apply 1 Patch as directed every 12 hours. ARMS - methocarbamol (ROBAXIN) 500 mg tablet Take 1,000 mg by mouth four times a day as needed (PAIN). - aspirin 81 mg cap Take 81 mg by mouth once daily. Dr. Quintana manages. No instructions given - albuterol HFA (PROVENTIL HFA, VENTOLIN HFA) 90 mcg/actuation inhaler Inhale 1-2 Puffs as instructed every 6 hours as needed for wheezing/shortness of breath. - atorvastatin (LIPITOR) 40 mg tablet Take 40 mg by mouth once daily. - clopidogrel (PLAVIX) 75 mg tablet Take 75 mg by mouth once daily. Dr. Quintana manages - fluticasone-salmetero l (ADVAIR, WIXELA) 250-50 mcg/dose inhaler Inhale 1 Inhalation as instructed two times a day. - metoprolol succinate ER (TOPROL XL) 25 mg 24 hr tablet Take 25 mg by mouth once daily. - pantoprazole DR (PROTONIX) 40 mg tablet Take 40 mg by mouth every afternoon. Problem List As Of Date 01/06/2025 Noted Resolved Cervical spondylosis with myelopathy [M47.12] 09/28/2024 Other chronic pain [G89.29] 11/10/2024 Long-term current use of opiate analgesic [Z79.*11/10/2024 Lumbosacral spondylosis without myelopathy [M47*11/10/2024 Preop testing [Z01.818] 11/26/2024 Cervical myelopathy (HCC) [G95.9] 11/30/2024 CAD (coronary artery disease) [I25.10] 11/30/2024 Sleep apnea [G47.30] 11/30/2024 History of coronary artery bypass graft [Z95.1] 11/30/2024 Stented coronary artery [Z95.5] 11/30/2024 HTN (hypertension) [I10] 11/30/2024 Diabetes mellitus, type 2 (HCC) [E11.9] 11/30/2024 Arthritis [M19.90] 11/30/2024 History of psychiatric care [Z92.89] 11/30/2024 Obesity, Class I, BMI 30-34.9 [E66.811] 11/30/2024 Other specified postprocedural states [Z98.890] 12/08/2024 Status post arthrodesis [Z98.1] 12/08/2024 Prescriptions ordered this encounter Disp Refills Start End OXYCODONE 5 MG TABLET 20 t* 0 01/07/2025 01/12/2025 Route: ORAL Sig: Take 1 tablet by mouth every 6 hours as needed for pain for up to 5 days. Encounter Status:Closed by MAYANK SHEEHAN on 01/07/25 [facility]rea 12-15-2024 CNOV Office Visit ([facility] ) CHIDI MUSA ([id number]) 1965 F Date Time Provider Department 12/15/24 10:30 AM MAYANK SHEEHAN [facility] During your visit today, we recorded the following information about you: Weight Height 75.3 kg 1.575 m Hina Torres MA 12/15/2024 11:19 AM Signed 59 y/o female presents to office for routine post op. Sx 11/30/24 cervical fusion. She reports overall she is feeling much better. Still having occasional pain. Mayank Sheehan MD 12/15/2024 11:19 AM Signed Mayank Sheehan MD [facility] - Orthopaedic Spine Surgeon [address] [facility], [address], [address], [address], [place] [address] Phone: [phone] ([phone] FAX: [phone] Spine Surgery Post-op Follow-up Service Date: 12/15/2024 Surgery Date: 11/30/2024 Surgery(ies): C4-6 PSF, C5 laminectomy Pre-operative Symptoms: Cervical spine pain with radiation to bilateral upper extremities, bilateral upper extremity weakness, gait imbalance, dexterity issues HPI: Chidi Musa is seen for 2 week post operative follow up. She is doing very well. Has some continued pain in the posterior cervical spine but this is well-controlled with pain medication. Radiating pain in the right extremity has significantly proved. Feels that strength, numbness, dexterity, and balance have all improved. She has been compliant with cervical collar wear. Denies new issues. ALLERGIES No Known Allergies Current Outpatient Medications Medication Sig Dispense Refill traMADol (ULTRAM) 50 mg tablet Take 1 tablet by mouth every 6 hours as needed for pain for up to 7 days. 28 tablet 0 pregabalin (LYRICA) 150 mg capsule Take 1 capsule by mouth three times a day for 30 days. 90 capsule 1 acetaminophen (TYLENOL) 500 mg tablet Take 2 tablets by mouth every 6 hours. 720 tablet 0 docusate sodium (COLACE) 100 mg capsule Take 1 capsule by mouth two times a day for 14 days. 28 capsule 0 Egxqn-1-XPH-EPA-Fish Oil (FISH OIL) 1,000 (120-180) mg cap Take 2 g by mouth once daily. Last dose 11/09 due to surgery JANUMET 50-1,000 mg per tablet Take 1 tablet by mouth two times a day with meals. ARIPiprazole (ABILIFY) 5 mg tablet Take 5 mg by mouth once daily. JARDIANCE 10 mg tablet Take 10 mg by mouth once daily. fluconazole (DIFLUCAN) 100 mg tablet Take 100 mg by mouth as needed (yeast infections). fluticasone (FLONASE) 50 mcg/actuation nasal spray Use 2 Sprays in each nostril once daily. hydrOXYzine HCl (ATARAX) 25 mg tablet Take 25 mg by mouth once daily. lidocaine (LIDODERM) 5 % Apply 1 Patch as directed every 12 hours. ARMS methocarbamol (ROBAXIN) 500 mg tablet Take 1,000 mg by mouth four times a day as needed (PAIN). aspirin 81 mg cap Take 81 mg by mouth once daily. Dr. Quintana manages. No instructions given albuterol HFA (PROVENTIL HFA, VENTOLIN HFA) 90 mcg/actuation inhaler Inhale 1-2 Puffs as instructed every 6 hours as needed for wheezing/shortness of breath. atorvastatin (LIPITOR) 40 mg tablet Take 40 mg by mouth once daily. clopidogrel (PLAVIX) 75 mg tablet Take 75 mg by mouth once daily. Dr. Quintana manages fluticasone-salmetero l (ADVAIR, WIXELA) 250-50 mcg/dose inhaler Inhale 1 Inhalation as instructed two times a day. metoprolol succinate ER (TOPROL XL) 25 mg 24 hr tablet Take 25 mg by mouth once daily. pantoprazole DR (PROTONIX) 40 mg tablet Take 40 mg by mouth every afternoon. cariprazine (VRAYLAR) 1.5 mg capsule Take 1.5 mg by mouth once daily. No current facility-administered medications for this visit. Physical Examination: Vital Signs: Ht 157.5 cm (5' 2) Wt 75.3 kg (166 lb) BMI 30.36 kg/m? General Appearance: Well nourished, well developed, and no apparent distress. Incision: Clean, dry, and intact. No active drainage. No erythema. Cervical collar in place in appropriate position. Sensory: Sensation intact to light touch in C5-T1 and L1-S1 dermatomes. Motor: Upper Extremities Right Left Deltoid (C5) 5 5 Biceps (C6) 5 5 Triceps (C7) 5 5 First Assistant (C8) 5 5 Interossei (T1) 5 5 Lower Extremities Right Left Psoas (L2) 5 5 Quadriceps (L3) 5 5 Dorsiflexion (L4) 5 5 EHL (L5) 5 5 Plantarflexion (S1) 5 5 Gait: Smooth reciprocal gait. Long Tract Signs: No clonus. Ruben's present bilaterally. Reflexes: Symmetric, brisk bilateral patellar and Achilles reflexes. Imaging AP and lateral x-rays cervical spine obtained and independently interpreted. Image demonstrates C4-6 posterior spinal fusion instrumentation in appropriate position. Assessment 59 year old female who presents 2 weeks status-post C4-6 PSF, C5 laminectomy: recovering well. Plan Hard cervical collar may be removed when seated or lying down. Collar should be worn when upright and ambulatory. Continue with pain medication as prescribed. Continue with restrictions of bending, twi (more content not included)... [facility] XR CERVICAL 2V AP/LATon 11-28 XR CERVICAL 2V AP/LAT * * *Final Report* * * DATE OF EXAM: Dec 15 2024 10:17AM RHX [id number] - XR CERVICAL 2V AP/LAT / PROCEDURE REASON: S/P cervical spinal fusion * * * * Physician Interpretation * * * * XR CERVICAL 2V AP/LAT Ordering Physician: MAYANK SHEEHAN Clinical Statement: Status post cervical spinal fusion. Comparison 12/02/2024 FINDINGS: Redemonstration of postoperative changes status post multilevel decompression with posterior construct C4-C6. Prior anterior fusion with screw and plate fixation C6-7 with solid osseous fusion across the discs. The hardware is intact and in unchanged position. No change in alignment. The lung apices are clear. IMPRESSION: Postoperative changes status post C4-6 posterior decompression and fusion and prior C6-7 fusion. No hardware complication or change in alignment. 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: PSCB Transcribe Date/Time: Dec 17 2024 7:03A Dictated by : CAREY DAMON MD This examination was interpreted and the report reviewed and electronically signed by: CAREY DAMON MD on Dec 17 2024 7:05AM EST [id number] N [facility] CHIDI MUSA ([id number]) 1965 F Date Time Provider Department 12/09/24 MAYANK SHEEHAN During your visit today, we recorded the following information about you: Isaiah Quintana 12/09/2024 2:25 PM Signed Called patient to inform her to have x-rays done before seeing Dr Sheehan on 12-15-24, She will do so. Allergies As of Date: 12/09/2024 (No Known Allergies) Date Reviewed: 12/02/2024 Reviewed by: Desiree Blas, RN - Fully Assessed Prescriptions as of 12/09/2024 - pregabalin (LYRICA) 150 mg capsule Take 1 capsule by mouth three times a day for 30 days. - acetaminophen (TYLENOL) 500 mg tablet Take 2 tablets by mouth every 6 hours. - docusate sodium (COLACE) 100 mg capsule Take 1 capsule by mouth two times a day for 14 days. - traMADol (ULTRAM) 50 mg tablet Take 1 tablet by mouth every 6 hours as needed for pain for up to 7 days. - Cbehy-2-MTC-EPA-Fish Oil (FISH OIL) 1,000 (120-180) mg cap Take 2 g by mouth once daily. Last dose 11/09 due to surgery - JANUMET 50-1,000 mg per tablet Take 1 tablet by mouth two times a day with meals. - ARIPiprazole (ABILIFY) 5 mg tablet Take 5 mg by mouth once daily. - cariprazine (VRAYLAR) 1.5 mg capsule Take 1.5 mg by mouth once daily. - JARDIANCE 10 mg tablet Take 10 mg by mouth once daily. - fluconazole (DIFLUCAN) 100 mg tablet Take 100 mg by mouth as needed (yeast infections). - fluticasone (FLONASE) 50 mcg/actuation nasal spray Use 2 Sprays in each nostril once daily. - hydrOXYzine HCl (ATARAX) 25 mg tablet Take 25 mg by mouth once daily. - lidocaine (LIDODERM) 5 % Apply 1 Patch as directed every 12 hours. ARMS - methocarbamol (ROBAXIN) 500 mg tablet Take 1,000 mg by mouth four times a day as needed (PAIN). - aspirin 81 mg cap Take 81 mg by mouth once daily. Dr. Quintana manages. No instructions given - albuterol HFA (PROVENTIL HFA, VENTOLIN HFA) 90 mcg/actuation inhaler Inhale 1-2 Puffs as instructed every 6 hours as needed for wheezing/shortness of breath. - atorvastatin (LIPITOR) 40 mg tablet Take 40 mg by mouth once daily. - clopidogrel (PLAVIX) 75 mg tablet Take 75 mg by mouth once daily. Dr. Quintana manages - fluticasone-salmetero l (ADVAIR, WIXELA) 250-50 mcg/dose inhaler Inhale 1 Inhalation as instructed two times a day. - metoprolol succinate ER (TOPROL XL) 25 mg 24 hr tablet Take 25 mg by mouth once daily. - pantoprazole DR (PROTONIX) 40 mg tablet Take 40 mg by mouth every afternoon. Problem List As Of Date 12/09/2024 Noted Resolved Cervical spondylosis with myelopathy [M47.12] 09/28/2024 Other chronic pain [G89.29] 11/10/2024 Long-term current use of opiate analgesic [Z79.*11/10/2024 Lumbosacral spondylosis without myelopathy [M47*11/10/2024 Preop testing [Z01.818] 11/26/2024 Cervical myelopathy (HCC) [G95.9] 11/30/2024 CAD (coronary artery disease) [I25.10] 11/30/2024 Sleep apnea [G47.30] 11/30/2024 History of coronary artery bypass graft [Z95.1] 11/30/2024 Stented coronary artery [Z95.5] 11/30/2024 HTN (hypertension) [I10] 11/30/2024 Diabetes mellitus, type 2 (HCC) [E11.9] 11/30/2024 Arthritis [M19.90] 11/30/2024 History of psychiatric care [Z92.89] 11/30/2024 Obesity, Class I, BMI 30-34.9 [E66.811] 11/30/2024 Other specified postprocedural states [Z98.890] 12/08/2024 Status post arthrodesis [Z98.1] 12/08/2024 Encounter Status:Closed by ISAIAH QUINTANA on 12/09/24 Normal [facility] Basic metabolic 2000 panelon 12-02-2024 Anion gap [Moles/Vol] 7 mmol/L Normal 5-16 [facility] Comment on above: Order Comment: Speci men Type: BLOOD SPECIMENOrdering Facility: [facility] Address: [address] [place] [address] Performed By: #### 2 4321-2 ####[facility] LABORATORYCLIA [id number] [place] [id number] [place] Calcium [Mass/Vol] 9.4 mg/dL Normal 8.5-10.5 [facility] Comment on above: Order Comment: Speci men Type: BLOOD SPECIMENOrdering Facility: [facility] Address: [address] [place] [address] Performed By: #### 2 4321-2 ####[facility] LABORATORYCLIA [id number] [place] [address] [place] Chloride [Moles/Vol] 108 mmol/L High 98-107 [facility] Comment on above: Order Comment: Speci men Type: BLOOD SPECIMENOrdering Facility: [facility] Address: [address] [place] [address] Performed By: #### 2 4321-2 ####[facility] LABORATORYCLIA [id number] [place] [id number] [place] CO2 [Moles/Vol] 23 mmol/L Normal 21-32 [facility] Comment on above: Order Comment: Speci men Type: BLOOD SPECIMENOrdering Facility: [facility] Address: [address] [place] [address] Performed By: #### 2 4321-2 ####[facility] LABORATORYCLIA [id number] [place] [id number] [place] Creatinine [Mass/Vol] 0.52 mg/dL Normal 0.51-0.95 [facility] Comment on above: Order Comment: Maryellen gallardo Type: BLOOD SPECIMENOrdering Facility: [facility] Address: [address] [place] [address] Result Comment: Kandice ents receiving either N-Acetylcysteine (NAC) or Metamizole prior to venipuncture, may have falsely depressed results. Performed By: #### 2 4321-2 ####[facility] LABORATORYCLIA [id number] [address] OF [facility] Creatinine and Glomerular filtration rate.predicted panel (S/P/Bld) 107 mL/min/1.73m??? Normal >=60 [facility] Comment on above: Order Comment: Mareyllen gallardo Type: BLOOD SPECIMENOrdering Facility: [facility] Address: [address] [place] [address] Result Comment: Jacinta mated Glomerular Filtration Rate (eGFR) is calculated using the 2020 CKD-EPI creatinine equation. This equation utilizes serum creatinine, sex, and age as parameters. The creatinine assay has traceable calibration to isotope dilution-mass spectrometry. Refer to KDIGO guidelines for clinical interpretation. In patients with unstable renal function, e.g. those with acute kidney injury, the eGFR may not accurately reflect actual GFR. Performed By: #### 2 4321-2 ####[facility] LABORATORYCLIA [id number] [place] [address] [place] Glucose [Mass/Vol] 157 mg/dL High 70-100 [facility] Comment on above: Order Comment: Maryellen gallardo Type: BLOOD SPECIMENOrdering Facility: [facility] Address: [address] [place] [address] Result Comment: The [place] Diabetes Association (ADA) provides guidance for cutoff values for fasting glucose and random glucose. The ADA defines fasting as no caloric intake for at least 8 hours. Fasting plasma glucose results between 100 to 125 mg/dL indicate increased risk for diabetes (prediabetes). Fasting plasma glucose results greater than or equal to 126 mg/dL meet the criteria for diagnosis of diabetes. In the absence of unequivocal hyperglycemia, results should be confirmed by repeat testing. In a patient with classic symptoms of hyperglycemia or hyperglycemic crisis, random plasma glucose results greater than or equal to 200 mg/dL meet the criteria for diagnosis of diabetes. Reference: Standards of Medical Care in Diabetes 2016, [place] Diabetes Association. Diabetes Care. 2016.39(Suppl 1). Results may be falsely elevated after the administration of Sulfapyridine. Results may be falsely depressed after the administration of Sulfasalazine. Performed By: #### 2 4321-2 ####[facility] LABORATORYCLIA [id number] [place] [address] [place] Potassium [Moles/Vol] 4.4 mmol/L Normal 3.5-5.1 [facility] Comment on above: Order Comment: Speci men Type: BLOOD SPECIMENOrdering Facility: [facility] Address: [address] [place] [address] Performed By: #### 2 4321-2 ####[facility] LABORATORYCLIA [id number] [place] [address] [place] Sodium [Moles/Vol] 138 mmol/L Normal 136-145 [facility] Comment on above: Order Comment: Speci men Type: BLOOD SPECIMENOrdering Facility: [facility] Address: [address] [place] [address] Performed By: #### 2 4321-2 ####[facility] LABORATORYCLIA [id number] [place] [id number] [place] Urea nitrogen [Mass/Vol] 12 mg/dL Normal 7-26 [facility] Comment on above: Order Comment: Speci men Type: BLOOD SPECIMENOrdering Facility: [facility] Address: [address] [place] [address] Performed By: #### 2 4321-2 ####[facility] LABORATORYCLIA [id number] [place] [id number] [place] CBC panel Auto (Bld)on 12-02 Erythrocyte distribution width (RBC) [Ratio] 12.7 % Normal 11.5-15.0 [facility] Comment on above: Order Comment: Speci men Type: BLOOD SPECIMENOrdering Facility: [facility] Address: [address] [place] [address] Performed By: #### 5 8410-2 ####[facility] LABORATORYCLIA [id number] [address] [place] Hematocrit (Bld) [Volume fraction] 45.2 % Normal 36.0-46.0 [facility] Comment on above: Order Comment: Speci men Type: BLOOD SPECIMENOrdering Facility: [facility] Address: [address] [place] [address] Performed By: #### 5 8410-2 ####[facility] LABORATORYCLIA [id number] [place] [address] [place] Hemoglobin (Bld) [Mass/Vol] 15.2 g/dL Normal 11.5-15.5 [facility] Comment on above: Order Comment: Speci men Type: BLOOD SPECIMENOrdering Facility: [facility] Address: [address] [place] [address] Performed By: #### 5 8410-2 ####[facility] LABORATORYCLIA [id number] [address] [place] MCH (RBC) [Entitic mass] 30.7 pg Normal 26.0-34.0 [facility] Comment on above: Order Comment: Speci men Type: BLOOD SPECIMENOrdering Facility: [facility] Address: [address] [place] [address] Performed By: #### 5 8410-2 ####[facility] LABORATORYCLIA [id number] [place] [address] [place] MCHC (RBC) [Mass/Vol] 33.6 g/dL Normal 30.5-36.0 [facility] Comment on above: Order Comment: Speci men Type: BLOOD SPECIMENOrdering Facility: [facility] Address: [address] [place] [address] Performed By: #### 5 8410-2 ####[facility] LABORATORYCLIA [id number] [place] [address] [place] MCV (RBC) [Entitic vol] 91.3 fL Normal 80.0-100.0 [facility] Comment on above: Order Comment: Speci men Type: BLOOD SPECIMENOrdering Facility: [facility] Address: [address] [place] [address] Performed By: #### 5 8410-2 ####[facility] LABORATORYCLIA [id number] [place] [id number] [place] Nucleated RBC (Bld) [#/Vol] 10*3/uL Normal <0.01 [facility] Comment on above: Order Comment: Speci men Type: BLOOD SPECIMENOrdering Facility: [facility] Address: [address] [place] [address] Performed By: #### 5 8410-2 ####[facility] LABORATORYCLIA [id number] [place] [address] [place] Platelet mean volume (Bld) [Entitic vol] 10.2 fL Normal 9.0-12.7 [facility] Comment on above: Order Comment: Speci men Type: BLOOD SPECIMENOrdering Facility: [facility] Address: [address] [place] [address] Performed By: #### 5 8410-2 ####[facility]ORATORYCLIA [id number] [place] [address] [place] Platelets (Bld) [#/Vol] 198 10*3/uL Normal 150-400 [facility] Comment on above: Order Comment: Speci men Type: BLOOD SPECIMENOrdering Facility: [facility] Address: [address] [place] [address] Performed By: #### 5 8410-2 ####[facility] LABORATORYCLIA [id number] [place] [address] [place] RBC (Bld) [#/Vol] 4.95 10*6/uL Normal 3.90-5.20 [facility] Comment on above: Order Comment: Speci men Type: BLOOD SPECIMENOrdering Facility: [facility] Address: [address] [place] [address] Performed By: #### 5 8410-2 ####[facility] LABORATORYCLIA [id number] [address] [place] WBC (Bld) [#/Vol] 12.43 10*3/uL High 3.70-11.00 [facility] Comment on above: Order Comment: Speci men Type: BLOOD SPECIMENOrdering Facility: [facility] Address: [facility] [place] [address] Performed By: #### 5 8410-2 ####[facility] LABORATORYCLIA [id number] [place] [id number] [facility] CNDSon 12-02-2024 CNDS HNO ID: [id number] Author: MAYANK SHEEHAN MD Service: Orthopaedic Surgery Author Type: Physician Type: Discharge Summary Filed: 12/03/2024 14:49 Note Text: DISCHARGE SUMMARY PATIENT NAME: Chidi Musa Code Status: Full Code Highest Readmission Risk Score: 9 The 30 day readmissions risk score is derived from an internally validated risk model which evaluates patient level characteristics, utilization history, medication orders and lab results up until the day of discharge. Patients with a score of 39 or above are considered highest risk for readmission. Specific patient level drivers will be listed at the bottom of the summary. Admission Information Admission Information ADMIT DATE: 11/30/2024 DISCHARGE DATE: 12/02/24 MY DOCTORS AND MEDICAL TEAM: My Main Hospital Doctor: Mayank Sheehan MD Primary Care Provider: Josephine Walter CNP, CNP My Medical Team Members: Treatment Team: Attending Provider: Mayank Sheehan MD Consulting: APP2 Consulting: Andrea Harper APRN.CNP MY CONDITION AT DISCHARGE: Stable REASON I WAS IN THE HOSPITAL: cervical myelopathy SUMMARY OF WHAT HAPPENED WHILE I WAS IN THE HOSPITAL: Patient was admitted for pain control and observation. Patient was hemodynamically stable following surgery. Pain controlled. Evaluated by physical therapy who recommended discharge to home . OTHER PROBLEMS/DIAGNOSIS: Principal Problem: Cervical myelopathy (HCC) Active Problems: CAD (coronary artery disease) Sleep apnea History of coronary artery bypass graft Stented coronary artery HTN (hypertension) Diabetes mellitus, type 2 (HCC) Arthritis History of psychiatric care Obesity, Class I, BMI 30-34.9 Resolved Problems: * No resolved hospital problems. * OPERATIONS PERFORMED WHILE IN THE HOSPITAL:PSF cervical spine Discharge Disposition Discharge Disposition: Home With Self Care Activity When You Leave the Hospital May bathe and shower May shower only Weight-bearing limited to: Anterior AND Posterior Cervical Fusions: Hard cervical collar on at all times except during showers Dressing may be removed (except Steri Strips) on POD #5 Posterior cervical fusions require suture removal and have no Steri Strips No cervical ROM Limit lifting to <15 lbs No diet restrictions Pain medication as prescribed, avoid NSAIDs May resume anticoagulation on POD #7 Diet Instructions Regular For Pain When You Leave the Hospital Use the dispensed medication (see prescription) Call Your Doctor If You have redness, swelling, pus or drainage from the wound Treatment Team: Attending Provider: Mayank Sheehan MD Consulting: MR KELVIN FELICIANO APP2 Consulting: Andrea Harper APRN.SINK MAKER FOLLOW-UP APPOINTMENTS ALREADY SCHEDULED WITH A [facility] PROVIDER: Future Appointments Date Time Provider Department Center 12/15/2024 10:30 AM Mayank Sheehan MD [facility] ALLERGIES No Known Allergies DISCHARGE MEDICATION: Medication List START taking these medications acetaminophen 500 mg tablet Commonly known as: TYLENOL Take 2 tablets by mouth every 6 hours. docusate sodium 100 mg capsule Commonly known as: COLACE Take 1 capsule by mouth two times a day for 14 days. CONTINUE taking these medications albuterol HFA 90 mcg/actuation inhaler Commonly known as: PROVENTIL HFA, VENTOLIN HFA ARIPiprazole 5 mg tablet Commonly known as: ABILIFY aspirin 81 mg Cap atorvastatin 40 mg tablet Commonly known as: LIPITOR clopidogrel 75 mg tablet Commonly known as: PLAVIX Fish OiL 1,000 (120-180) mg Cap Generic drug: Sivck-7-ZYB-EPA-Fish Oil fluconazole 100 mg tablet Commonly known as: DIFLUCAN fluticasone 50 mcg/actuation nasal spray Commonly known as: FLONASE fluticasone-salmetero l 250-50 mcg/dose inhaler Commonly known as: ADVAIR, WIXELA hydrOXYzine HCl 25 mg tablet Commonly known as: ATARAX JANUMET 50-1,000 mg per tablet Generic drug: SITagliptin-metFORMIN JARDIANCE 10 mg tablet Generic drug: empagliflozin lidocaine 5 % Commonly known as: LIDODERM methocarbamol 500 mg tablet Commonly known as: ROBAXIN metoprolol succinate ER 25 mg 24 hr tablet Commonly known as: TOPROL XL pantoprazole DR 40 mg tablet Commonly known as: PROTONIX pregabalin 150 mg capsule Commonly known as: LYRICA Take 1 capsule by mouth three times a day for 30 days. traMADol 50 mg tablet Commonly known as: ULTRAM Take 1 tablet by mouth every 6 hours as needed for pain for up to 7 days. VRAYLAR 1.5 mg capsule Generic drug: cariprazine Where to Get Your Medications These medications were sent to [facility] [address] [place] [address] Hours: Saturday-Saturday 7am-7pm, Saturday 9am-1pm acetaminophen 500 mg tablet docusate sodium 100 mg capsule traMADol 50 mg tablet Discharge Physical Exam: VITAL SIGNS: BP 132/59 Pulse 66 Temp 36.8 ?C (98. (more content not included)... Normal [facility] CONSULT PROGon 12-02-2024 CONSULT PROG HNO ID: [id number] Author: ANDREA HARPER APRN.CNP Service: Hospital Medicine Author Type: Nurse Practitioner Type: Consult Progress Note Filed: 12/02/2024 14:13 Note Text: DEPARTMENT OF HOSPITAL MEDICINE CONSULT PROGRESS NOTE SERVICE DATE: 12/02/2024 SERVICE TIME: 1:08 PM Hospital Medicine/Primary Attending: Mayank Sheehan MD PRIMARY CARE PHYSICIAN: Josephine Walter CNP, SINK MAKER Readmission: Highest Readmission Risk Score: 9 Subjective INTERVAL HPI: No acute events overnight. Seen and examined at bedside. She states pain well controlled, although rated 7/10. Denies chest pain, shortness of breath, abdominal pain, nausea, vomiting, fever, chills. Surgery planning discharge today. She is medically stable for discharge. Current Facility-Administered Medications Medication Dose Route Frequency albuterol HFA 90 mcg/actuation 1-2 Puff (PROVENTIL HFA, VENTOLIN HFA) 1-2 Puff INHALATION q 6 H PRN atorvastatin 40 mg tab(s) (LIPITOR) 40 mg ORAL DAILY metoprolol succinate ER 25 mg tab(s) (TOPROL XL) 25 mg ORAL DAILY pantoprazole DR 40 mg tab(s) (PROTONIX) 40 mg ORAL DAILY (6 AM) ARIPiprazole 5 mg tablet (ABILIFY) 5 mg ORAL DAILY empagliflozin 10 mg tab(s) (JARDIANCE) 10 mg ORAL DAILY hydrOXYzine HCl 25 mg tab(s) (ATARAX) 25 mg ORAL DAILY methocarbamol 1,000 mg tab(s) (ROBAXIN) 1,000 mg ORAL QID PRN pregabalin 150 mg cap(s) (LYRICA) 150 mg ORAL TID morphine 2 mg injection 2 mg INTRAVENOUS q 2 H PRN acetaminophen 1,000 mg tab(s) (TYLENOL) 1,000 mg ORAL q 6 H ondansetron 4 mg tab(s) (ZOFRAN) 4 mg ORAL q 6 H PRN Or ondansetron (PF) 4 mg injection (ZOFRAN) 4 mg INTRAVENOUS q 6 H PRN metoclopramide HCl 10 mg injection (REGLAN) 10 mg INTRAVENOUS q 6 H PRN diphenhydrAMINE 25 mg injection (BENADRYL) 25 mg INTRAVENOUS q 6 H PRN docusate sodium 100 mg cap(s) (COLACE) 100 mg ORAL BID mometasone-formoterol 100-5 mcg/actuation 2 Puff inhaler (DULERA) 2 Puff INHALATION BID SITagliptin phosphate 50 mg tab(s) (JANUVIA) 50 mg ORAL DAILY And metFORMIN 1,000 mg tab(s) (GLUCOPHAGE) 1,000 mg ORAL BID w MEALS traMADol 50 mg tab(s) (ULTRAM) 50 mg ORAL q 6 H PRN dextrose 40 % 15 g 15 g ORAL PRN Or glucagon 1 mg injection 1 mg INTRAMUSCULAR PRN Or dextrose 10% iv bolus 12.5 g INTRAVENOUS PRN insulin lispro injection (rapid acting) (ADMElog) SUBCUTANEOUS w MEALS Objective PHYSICAL EXAM: BP 132/59 Pulse 66 Temp (Src) 98.3 (Oral) Resp 16 Ht 5' 2 (1.58m) Wt 166 lb 3.6 oz (75.4kg) SpO2 97% BMI 30.40 kg/(m2). O2 Therapy: Room Air Physical Exam Performed GENERAL: Alert, no distress, cooperative, Obese SKIN: Skin color, texture, turgor normal. No rashes or lesions. NECK: C-collar intact, hemovac intact with scant serosanguinous drainage in canister LUNGS: Lungs clear to auscultation, Good diaphragmatic excursion CARDIAC: Normal S1 and S2; no rubs, murmurs, or gallops ABDOMEN: Abdomen soft, non-tender, BS normal, No masses or organomegaly EXTREMITIES: Normal exam of the extremities NEURO: Grossly normal cognition, motor function, and cranial nerves III-XII The remainder of the physical exam is noncontributory. Lines, Drains, and Airways Line Duration Peripheral 11/30/24 1146 Left Forearm 18 Gauge 2 days Drain Duration Drain/Tube 11/30/24 1649 Hemovac Upper;Medial Back Drain #1 1 day Reviewed lines and will discuss with nurse to discontinue. DATA: Diagnostic tests reviewed for today's visit: Most recent labs Most recent imaging CBC, Coags, BMP, Mg, Phos Recent Labs 12/02/24 0601 12/01/24 0522 WBC 12.43* 11.80* HB 15.2 14.3 HCT 45.2 43.8 PLT 198 202 NA 138 139 K 4.4 4.3 CHLOR 108* 105 CO2 23 28 BUN 12 12 CREAT 0.52 0.68 GLUC 157* 132* CA 9.4 9.1 Assessment/Plan Problem List Cervical myelopathy (HCC) (POA: Yes) CAD (coronary artery disease) (POA: Status not on file) Sleep apnea (POA: Status not on file) History of coronary artery bypass graft (POA: Status not on file) Stented coronary artery (POA: Status not on file) HTN (hypertension) (POA: Status not on file) Diabetes mellitus, type 2 (HCC) (POA: Status not on file) Arthritis (POA: Status not on file) History of psychiatric care (POA: Status not on file) Obesity, Class I, BMI 30-34.9 (POA: Status not on file) HOSPITAL COURSE: Chidi Musa is a 59 year old female presented with past medical history of HTN, HLD, CAD s/p PCI and CABG x 3, PAD s/p iliac artery stent/thrombectomy 08/2024, TIIDM, emphysema, AVE noncompliant with CPAP, Hx R vocal cord paralysis and dysphagia, anxiety, GERD, and cervical stenosis presenting for elective C4-6 PSF with C5 laminectomy with Dr. Sheehan on 11/30/24. [facility] is consulted for medical management. Principal Problem: #Cervical Stenosis - s/p C4-6 PSF with C5 laminectomy with Dr. Sheehan on 11/30/24 - Management including DVT prophylaxis and pain management per surgery primary. #CAD s/p PCI And CABG #HTN #HLD #PAD - Continue home A (more content not included)... Normal [facility] XR CERVICAL 2V AP/LATon 03-0 XR CERVICAL 2V AP/LAT * * *Final Report* * * DATE OF EXAM: Dec 02 2024 8:29AM RHX [id number] - XR CERVICAL 2V AP/LAT / PROCEDURE REASON: Post-operative / post-procedure assessment, asymptomatic * * * * Physician Interpretation * * * * XR CERVICAL 2V AP/LAT Ordering Physician: MAYANK SHEEHAN Clinical Statement: Postoperative/postpro cedural assessment, asymptomatic. Comparison 09/08/2024 FINDINGS: Interval posterior decompression with construct C4-C6. The hardware is intact. Normal alignment. Prior C6-7 fusion There is a surgical drain present. No prevertebral soft tissue swelling. IMPRESSION: Interval C4-6 posterior decompression and fusion. No hardware complication identified. 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: PSCB Transcribe Date/Time: Dec 02 2024 8:48A Dictated by : CAREY DAMON MD This examination was interpreted and the report reviewed and electronically signed by: CAREY DAMON MD on Dec 02 2024 8:49AM EST [id number] Normal [facility] Basic metabolic 2000 panelon 12-01-2024 Anion gap [Moles/Vol] 6 mmol/L Normal -16 [facility] Comment on above: Order Comment: Speci men Type: BLOOD SPECIMENOrdering Facility: [facility] Address: [address] [place] [address] Performed By: #### 2 4321-2 ####[facility] LABORATORYCLIA [id number] [place] [address] [place] Calcium [Mass/Vol] 9.1 mg/dL Normal 8.5-10.5 [facility] Comment on above: Order Comment: Speci men Type: BLOOD SPECIMENOrdering Facility: [facility] Address: [address] [place] [address] Performed By: #### 2 4321-2 ####[facility] LABORATORYCLIA [id number] [place] [id number] [place] Chloride [Moles/Vol] 105 mmol/L Normal 98-107 [facility] Comment on above: Order Comment: Speci men Type: BLOOD SPECIMENOrdering Facility: [facility] Address: [address] [place] [address] Performed By: #### 2 4321-2 ####[facility] LABORATORYCLIA [id number] [place] [address] [place] CO2 [Moles/Vol] 28 mmol/L Normal 21-32 [facility] Comment on above: Order Comment: Speci men Type: BLOOD SPECIMENOrdering Facility: [facility] Address: [address] [place] [address] Performed By: #### 2 4321-2 ####[facility] LABORATORYCLIA [id number] [place] [address] [place] Creatinine [Mass/Vol] 0.68 mg/dL Normal 0.51-0.95 [facility] Comment on above: Order Comment: Speci men Type: BLOOD SPECIMENOrdering Facility: [facility] Address: [address] [place] [address] Result Comment: Kandice ents receiving either N-Acetylcysteine (NAC) or Metamizole prior to venipuncture, may have falsely depressed results. Performed By: #### 2 4321-2 ####[facility] LABORATORYCLIA [id number] [place] [address] [place] Creatinine and Glomerular filtration rate.predicted panel (S/P/Bld) 100 mL/min/1.73m??? Normal >=60 [facility] Comment on above: Order Comment: Speci men Type: BLOOD SPECIMENOrdering Facility: [facility] Address: [address] [place] [address] Result Comment: Jacinta mated Glomerular Filtration Rate (eGFR) is calculated using the 2020 CKD-EPI creatinine equation. This equation utilizes serum creatinine, sex, and age as parameters. The creatinine assay has traceable calibration to isotope dilution-mass spectrometry. Refer to KDIGO guidelines for clinical interpretation. In patients with unstable renal function, e.g. those with acute kidney injury, the eGFR may not accurately reflect actual GFR. Performed By: #### 2 4321-2 ####[facility] LABORATORYCLIA [id number] [place] [address] [place] Glucose [Mass/Vol] 132 mg/dL High 70-100 [facility] Comment on above: Order Comment: Maryellen gallardo Type: BLOOD SPECIMENOrdering Facility: [facility] Address: [address] [place] [id number] Result Comment: The [place] Diabetes Association (ADA) provides guidance for cutoff values for fasting glucose and random glucose. The ADA defines fasting as no caloric intake for at least 8 hours. Fasting plasma glucose results between 100 to 125 mg/dL indicate increased risk for diabetes (prediabetes). Fasting plasma glucose results greater than or equal to 126 mg/dL meet the criteria for diagnosis of diabetes. In the absence of unequivocal hyperglycemia, results should be confirmed by repeat testing. In a patient with classic symptoms of hyperglycemia or hyperglycemic crisis, random plasma glucose results greater than or equal to 200 mg/dL meet the criteria for diagnosis of diabetes. Reference: Standards of Medical Care in Diabetes 2016, [place] Diabetes Association. Diabetes Care. 2016.39(Suppl 1). Results may be falsely elevated after the administration of Sulfapyridine. Results may be falsely depressed after the administration of Sulfasalazine. Performed By: #### 2 4321-2 ####[facility] LABORATORYCLIA [id number] [place] [address] [place] Potassium [Moles/Vol] 4.3 mmol/L Normal 3.5-5.1 [facility] Comment on above: Order Comment: Maryellen gallardo Type: BLOOD SPECIMENOrdering Facility: [facility] Address: [address] [place] [address] Performed By: #### 2 4321-2 ####[facility] LABORATORYCLIA [id number] [place] [id number] [place] Sodium [Moles/Vol] 139 mmol/L Normal 136-145 [facility] Comment on above: Order Comment: Speci men Type: BLOOD SPECIMENOrdering Facility: [facility] Address: [address] [place] [address] Performed By: #### 2 4321-2 ####[facility] LABORATORYCLIA [id number] [place] [id number] [place] Urea nitrogen [Mass/Vol] 12 mg/dL Normal 7-26 [facility] Comment on above: Order Comment: Speci men Type: BLOOD SPECIMENOrdering Facility: [facility] Address: [address] [place] [address] Performed By: #### 2 4321-2 ####[facility] LABORATORYCLIA [id number] [place] [id number] [facility] CBC panel Auto (Bld)on 12-01 Erythrocyte distribution width (RBC) [Ratio] 12.4 % Normal 11.5-15.0 [facility] Comment on above: Order Comment: Speci men Type: BLOOD SPECIMENOrdering Facility: [facility] Address: [address] [place] [address] Performed By: #### 5 8410-2 ####[facility] LABORATORYCLIA [id number] [address] [place] Hematocrit (Bld) [Volume fraction] 43.8 % Normal 36.0-46.0 [facility] Comment on above: Order Comment: Speci men Type: BLOOD SPECIMENOrdering Facility: [facility] Address: [address] [place] [address] Performed By: #### 5 8410-2 ####[facility] LABORATORYCLIA [id number] [place] [id number] [place] Hemoglobin (Bld) [Mass/Vol] 14.3 g/dL Normal 11.5-15.5 [facility] Comment on above: Order Comment: Speci men Type: BLOOD SPECIMENOrdering Facility: [facility] Address: [address] [place] [address] Performed By: #### 5 8410-2 ####[facility] LABORATORYCLIA [id number] [address] MCH (RBC) [Entitic mass] 30.4 pg Normal 26.0-34.0 [facility] Comment on above: Order Comment: Speci men Type: BLOOD SPECIMENOrdering Facility: [facility] Address: [address] [place] [address] Performed By: #### 5 8410-2 ####[facility] LABORATORYCLIA [id number] [address] [place] MCHC (RBC) [Mass/Vol] 32.6 g/dL Normal 30.5-36.0 [facility] Comment on above: Order Comment: Speci men Type: BLOOD SPECIMENOrdering Facility: [facility] Address: [address] [place] [address] Performed By: #### 5 8410-2 ####[facility] LABORATORYCLIA [id number] [address] MCV (RBC) [Entitic vol] 93.0 fL Normal 80.0-100.0 [facility] Comment on above: Order Comment: Speci men Type: BLOOD SPECIMENOrdering Facility: [facility] Address: [address] [place] [address] Performed By: #### 5 8410-2 ####[facility] LABORATORYCLIA [id number] [address] Nucleated RBC (Bld) [#/Vol] 10*3/uL Normal <0.01 [facility] Comment on above: Order Comment: Speci men Type: BLOOD SPECIMENOrdering Facility: [facility] Address: [address] [place] [address] Performed By: #### 5 8410-2 ####[facility] LABORATORYCLIA [id number] [address] [place] Platelet mean volume (Bld) [Entitic vol] 9.7 fL Normal 9.0-12.7 [facility] Comment on above: Order Comment: Speci men Type: BLOOD SPECIMENOrdering Facility: [facility] Address: [address] [place] [address] Performed By: #### 5 8410-2 ####[facility] LABORATORYCLIA [id number] [place] [id number] [facility] Platelets (Bld) [#/Vol] 202 10*3/uL Normal 150-400 [facility] Comment on above: Order Comment: Speci men Type: BLOOD SPECIMENOrdering Facility: [facility] Address: [address] [place] [address] Performed By: #### 5 8410-2 ####[facility] LABORATORYCLIA [id number] [place] [id number] [facility] RBC (Bld) [#/Vol] 4.71 10*6/uL Normal 3.90-5.20 [facility] Comment on above: Order Comment: Speci men Type: BLOOD SPECIMENOrdering Facility: [facility] Address: [address] [place] [address] Performed By: #### 5 8410-2 ####[facility] LABORATORYCLIA [id number] [place] [id number] [facility] [place] WBC (Bld) [#/Vol] 11.80 10*3/uL High 3.70-11.00 [facility] Comment on above: Order Comment: Speci men Type: BLOOD SPECIMENOrdering Facility: [facility] Address: [address] [place] [address] Performed By: #### 5 8410-2 ####[facility] LABORATORYCLIA [id number] [place] [id number] [facility] CONSULTon 12-01-2024 CONSULT HNO ID: [id number] Author: DANYELL CROKOS PA Service: Hospital Medicine Author Type: Physician Manufacturing Helper Type: Consults Filed: 12/01/2024 15:32 Note Text: DEPARTMENT OF HOSPITAL MEDICINE INITIAL CONSULT HANDP SERVICE DATE: 12/01/2024 SERVICE TIME: 9:52 AM Hospital Medicine/Primary: HEIDI Lopez HPI: Pt is a 59 yo female with PMHx of HTN, HLD, CAD s/p PCI and CABG x 3, PAD s/p iliac artery stent/thrombectomy 08/2024, TIIDM, emphysema, AVE noncompliant with CPAP, Hx R vocal cord paralysis and dysphagia, anxiety, GERD, and cervical stenosis presenting for elective C4-6 PSF with C5 laminectomy with Dr. Sheehan on 11/30/24. [facility] is consulted for medical management. Preoperative labwork was unremarkable. On admission, BP 134/71, temp 97.7, HR 67, RR 18, SpO2 98% on RA. Subjective : Had RUE pain preoperatively and notes that this has almost entirely resolved. Neck pain is so far fairly well-controlled. Denies CP, SOB, cough, congestion, fever/chills, sore throat, nausea, vomiting, change in bowel or bladder habits. No significant overnight events per RN. Review of Systems Respiratory: Negative for cough and shortness of breath. Cardiovascular: Negative for chest pain. Gastrointestinal: Negative for abdominal pain, nausea and vomiting. Musculoskeletal: Positive for neck pain. Neurological: Positive for light-headedness. Negative for dizziness. MEDICATIONS: Reviewed Objective PHYSICAL EXAM: BP 165/69 Pulse 72 Temp (Src) 98.1 (Oral) Resp 18 Ht 5' 2 (1.58m) Wt 166 lb 3.6 oz (75.4kg) SpO2 97% BMI 30.40 kg/(m2). O2 Therapy: Room Air, Liters (Numeric Only): 1.5 Physical Exam Constitutional: General: She is not in acute distress. Appearance: She is not ill-appearing. Comments: Pleasant and cooperative adult female sitting up in chair wearing C collar, NAD. Neck: Comments: Drain in place with mod amount of serosanguineous drainage. Cardiovascular: Rate and Rhythm: Normal rate and regular rhythm. Heart sounds: Normal heart sounds. Pulmonary: Effort: Pulmonary effort is normal. Breath sounds: Normal breath sounds. Abdominal: General: Bowel sounds are normal. There is no distension. Palpations: Abdomen is soft. Tenderness: There is no abdominal tenderness. Neurological: Mental Status: She is alert. Psychiatric: Mood and Affect: Mood normal. Behavior: Behavior normal. DATA: Diagnostic tests reviewed for today's visit: Most recent labs and imaging results. CBC, Coags, BMP, Mg, Phos Recent Labs 12/01/24 0522 WBC 11.80* HB 14.3 HCT 43.8 PLT 202 NA 139 K 4.3 CHLOR 105 CO2 28 BUN 12 CREAT 0.68 GLUC 132* CA 9.1 Liver Function, Amylase, AND Lipase Cardiac Enzymes Assessment and Plan: #Cervical Stenosis - s/p C4-6 PSF with C5 laminectomy with Dr. Sheehan on 11/30/24 - Management including DVT prophylaxis and pain management per surgery primary. - Monitor daily CBC for post-op abnormalities including leukocytosis and anemia. #CAD s/p PCI And CABG #HTN #HLD #PAD - Continue home ASA 81mg and plavix 75mg daily when okay per ortho surg. Continue home lipitor 20mg daily. - Continue toprol 25mg daily #TIIDM - continue home jardiance 10mg daily with janumet BID - Start Scale I SSI - Continue Accu-Cheks before meals and at bedtime. Hypoglycemia management per protocol. #AVE noncompliant with CPAP #Emphysema without Exacerbation - Continue dulera - Continue to emphasize importance of CPAP Compliance #Anxiety- Continue home vraylar 1.5mg daily and bilify 5mg daily #GERD- #Obesity- Weight loss recommended and encouraged. Medication and Non-Pharmacologic VTE Prophylaxis/Anticoagu lants 11/30/242014 vte pharmacologic prophylaxis contraindicated ([place]) 11/30/242014 pneumatic compression sleeve(s) ([place]) 11/30/242014 activity - mobilize patient ([place]) VTE Prophylaxis: Other - Management including DVT prophylaxis and pain management per surgery primary. Code Status: Full Code Disposition: Provided counseling/patient education regarding acute conditions, exacerbation of chronic conditions, management of chronic conditions Plan of care discussed with: discussed with RN, discussed with TCC/SW, patient and family updated, I personally examined the patient, I personally reviewed chart data, labs, radiology reports SIGNATURE: HEIDI Lopez PATIENT NAME: Chidi Musa DATE: December 01, 2024 TIME: 9:52 AM PAGER/CONTACT #: [phone] [facility] NURSING PROGon 12-01-2024 NURSING PROG HNO ID: [id number] Author: DESIREE BLAS RN Service: Nursing Author Type: Registered Nurse Type: Nursing Progress Note Filed: 12/01/2024 10:40 Note Text: Spoke to Cami at this time regarding LSO that was ordered Saturday, per Tammi , brace had to be special fitted and ordered and should be delivered to pt this afternoon. Case management and therapies updated at this time. [facility] THERAPY NTon 12-01-2024 THERAPY NT HNO ID: [id number] Author: TIERRA VU, OTR/L Service: Occupational Therapy Author Type: Occupational Therapist Type: Therapy (PT/OT/Speech/Resp) Filed: 12/01/2024 12:03 Note Text: Occupational Therapy Evaluation Summary SERVICE DATE: 12/01/2024 SERVICE TIME: 1108 to 1153 ROOM: [place] [address] OT 6 Clicks Score: 24 Total Joint Replacement Discharge Readiness: Cleared from Occupational Therapy DISCHARGE RECOMMENDATIONS Home Recommended Discharge Disposition Comments: pt presents at supervision level with ADLs, functional transfers and safety. pt able to manage c-collar, has friend to assist upon homegoing 22/04 for a week. pt with no further skilled OT needs Anticipated Discharge Needs: Supervision at Home Supervision at Home due to: Decreased safety awareness ASSESSMENT Response to Therapy Interventions: Good Participation in Activities PRECAUTIONS Spine, Brace, Lines/Tubes/Drains hemovac CURRENT HOSPITAL COURSE s/p elective C5 laminectomy and C4-[address] fusion by Dr Sheehan on 11/30/24 Relevant Past Medical History: CAD, depression, DM, anxiety, CABG, HTN, back pain HOME LIVING Patient Lives With: Self/Alone Assistance Available: 24-Hour, Other: See Comment Comments: friend to stay with pt Entry To Home: Stairs, With Rail Number Of Stairs Into Home: 2 Number Of Stairs To Bed/Bath: 0 Tub/Shower Type: step over tub shower Equipment Owned: Grab Bars- Shower, Grab Bars- Toilet PRIOR FUNCTIONAL LEVEL Within Functional Limits Pt reports independence with all activity prior to admission. She reports ambulating without an AD Baseline Cognition: Oriented to self, Oriented to place, Oriented to time, Oriented to situation SUBJECTIVE COGNITION Responsiveness: Alert Follows Commands: 3-step Commands THERAPY DIAGNOSIS Decreased activities of daily living (ADL) TREATMENT INTERVENTIONS Evaluation, Self Retirement Management (19491) Timed Code Treatment (minutes): 30 Skilled Treatment Time (minutes): 45 TRAINING AND EDUCATION PROVIDED Activity Adaptation/Compensato ry Strategies, Bed Mobility, Benefits of In-Hospital Mobility, Discharge Planning, Edema Management, Energy Conservation, Functional Mobility Involving ADLs, Grooming Tasks, Insight into Deficits, Lower Extremity Bathing, Lower Extremity Dressing, Pain Management, Positioning, Precautions/Restricti ons, Role of Occupational Therapy, Safety/Judgment, Sitting Balance to Improve Boles with ADLs/Self-Care, Standing Balance to Improve Boles with ADLs/Self-Care, Transfer - Sit to Stand, Transfer - Toilet/Commode THERAPEUTIC SKILLS USED Activity Dosing, Cuing Tactile, Cuing Verbal, Cuing Visual FUNCTIONAL STATUS Activities of Daily Living Assist Level Additional Information Feeding Independent Grooming Supervision Bathing Upper Body Supervision Bathing Lower Body Supervision Dressing Upper Body Supervision Dressing Lower Body Supervision Toileting Supervision Mobility Assist Level Additional Information Bed Mobility Supine To Sit: Supervision Sit To Supine: Supervision Sit to Stand Supervision Stand to Sit Supervision Bed to Chair Toilet/Commode Supervision Shower Functional Mobility Supervision, Additional Information Functional Mobility Device: None good pacing, no LOB, denied dizziness; to/from bathroom ~18ftx2 GOALS Patient will demonstrate understanding of importance of mobility during hospital stay and resolve all self-care, cognitive and/or coping needs identified. Rehab Potential: Excellent PLAN OT Frequency: Discontinue Therapy Services Reasons Therapy Services Discontinued: Goals met Treatment Interventions: Education, Self Care/Home Management SIGNATURE: PACO Singh/L PATIENT NAME: Chidi Musa DATE: December 01, 2024 TIME: 12:02 PM Normal [facility] THERAPY NT HNO ID: [id number] Author: ARCENIO NOONAN PT Service: Physical Therapy Author Type: Physical Therapist Type: Therapy (PT/OT/Speech/Resp) Filed: 12/01/2024 10:54 Note Text: Physical Therapy Evaluation Summary SERVICE DATE: 12/01/2024 SERVICE TIME: 0930 to 0954 ROOM: [id number] PT 6 Clicks Score: 24 Total Joint Replacement Discharge Readiness: Cleared from Physical Therapy DISCHARGE RECOMMENDATIONS Home Recommended Discharge Disposition Comments: with HEP Anticipated Discharge Needs: Supervision at Home Supervision at Home due to: Decreased safety awareness ASSESSMENT Response to Therapy Interventions: Good Participation in Activities Pt tolerated PT eval well. She demonstrated good overall mobility and does not require inpatient therapy at this time PRECAUTIONS Spine, Brace, Lines/Tubes/Drains CURRENT HOSPITAL COURSE s/p elective C5 laminectomy and C4-[address] spinal fusion by Dr Sheehan on 11/30/24 Relevant Past Medical History: CAD, depression, DM, anxiety, CABG, HTN, back pain HOME LIVING Patient Lives With: Self/Alone Assistance Available: 24-Hour, Other: See Comment Comments: friend to stay with pt Entry To Home: Stairs, With Rail Number Of Stairs Into Home: 2 Number Of Stairs To Bed/Bath: 0 Tub/Shower Type: step over tub shower Equipment Owned: Grab Bars- Shower PRIOR FUNCTIONAL LEVEL Within Functional Limits Pt reports independence with all activity prior to admission. She reports ambulating without an AD SUBJECTIVE THERAPY DIAGNOSIS Reduced mobility-other TREATMENT INTERVENTIONS Evaluation, Therapeutic Activity (89112) Timed Code Treatment (minutes): 9 Skilled Treatment Time (minutes): 24 TRAINING AND EDUCATION PROVIDED Anatomy and Impact on Deficits, Assistive Device Use, Bed Mobility, Benefits of In-Hospital Mobility, Discharge Planning, Disease Specific Education, Exercise Program, Expected Functional Level, Falls Prevention, Gait Pattern, Reduction of Deviations, Handout Issued, Positioning, Precautions/Restricti ons, Role of Physical Therapy, Transfers THERAPEUTIC SKILLS USED Cues for Sequencing/Proper Technique for Activity, Cuing Verbal FUNCTIONAL STATUS Bed Mobility Supine To Sit: Supervision, Additional Information log roll Transfers Sit To Stand: Supervision Stand To Sit: Supervision Bed to Chair Gait Supervision Gait Device: None General Deviations/Observatio ns: Shuffling Gait Gait Distance (feet): 250 Stairs Supervision Stairs Device: Rail Number of Stairs: 5 GOALS Patient will demonstrate understanding of importance of mobility during hospital stay and resolve all functional needs identified. Rehab Potential: Excellent Progress Toward Goals: Progressing as expected PLAN PT Frequency: Discontinue Therapy Services Reasons Therapy Services Discontinued: No skilled needs Treatment Interventions: Education SIGNATURE: Arcenio Noonan, PT PATIENT NAME: Chidi Musa DATE: December 01, 2024 TIME: 10:54 AM Normal [facility] ANES POSTPROC EVALon 025 ANES POSTPROC EVAL HNO ID: [id number] Author: KEN ZARATE MD Service: Anesthesiology Author Type: Anesthesiologist Type: Anesthesia Postprocedure Evaluation Filed: 11/30/2024 18:53 Note Text: POST ANESTHESIA EVALUATION NOTE : 1965 Procedure Summary Date: 11/30/24 Room / Location: OR 05 / OR Anesthesia Start: 1430 Anesthesia Stop: 1730 Procedures: ARTHRODESIS CERVICAL POSTERIOR, BELOW C2 1ST SINGLE LEVEL (Bilateral: Spine Cervical) ARTHRODESIS CERVICAL BELOW C2, 2ND CERVICAL LEVEL (Bilateral: Spine Cervical) LAMINECTOMY CERVICAL POSTERIOR LEVEL 3 (Bilateral: Spine Cervical) Diagnosis: Cervical myelopathy (HCC) 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 Spinal stenosis in cervical region (Cervical myelopathy (HCC) [G95.9]) (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 [M50.322, Z98.1]) (Spinal stenosis in cervical region [M48.02]) Surgeons: Mayank Sheehan MD Responsible Provider: Ken Zarate MD Anesthesia Type: general ASA Status: 3 Anesthesia Type: general Airway Type: ETT Last Vitals Vitals Value Taken Time BP 131/63 11/30/24 1845 Temp 36.7 ?C (98 ?F) 11/30/24 1717 Pulse 74 11/30/24 1852 Resp 16 11/30/24 1745 SpO2 95 % 11/30/24 1852 Vitals shown include unfiled device data. Post Anesthesia Patient Status Patient Evaluation: PACU. Anticipated Disposition: inpatient floor planned admission. Neurological Status: aware and responsive. Pulmonary Status: breathing comfortably on room air Airway Control: returned to baseline unsupported. Cardiovascular Status: stable. Pain Management: clinically adequate Postoperative Hydration: acceptable. Intraoperative Events: no significant anesthesia events Post Operative Nausea/Vomiting Status: no significant post operative nausea or vomiting Recommendation: further care per PACU/ICU/floor team. Anesthesia Observations No Documentation SIGNATURE: Ken Zarate MD PATIENT NAME: Chidi Musa DATE: November 30, 2024 TIME: 6:53 PM CSN: [id number] [facility] ANES PRE-OPon 11-30-2024 ANES PRE-OP HNO ID: [id number] Author: ED DO DO Service: ? Author Type: Anesthesiologist Type: Anesthesia Preprocedure Evaluation Filed: 11/30/2024 12:14 Note Text: ANESTHESIOLOGY DAY OF SURGERY NOTE : 1965 Procedure Information Date/Time: 11/30/24 1435 Procedures: ARTHRODESIS CERVICAL POSTERIOR, BELOW C2 1ST SINGLE LEVEL (Bilateral: Spine Cervical) ARTHRODESIS CERVICAL BELOW C2, 2ND CERVICAL LEVEL (Bilateral: Spine Cervical) LAMINECTOMY CERVICAL POSTERIOR LEVEL 3 (Bilateral: Spine Cervical) TRANSFUSION BLOOD Location: MR OR 05 / MR OR Surgeons: Mayank Sheehan MD Estimated body mass index is 30.4 kg/m? as calculated from the following: Height as of this encounter: 157.5 cm (5' 2). Weight as of this encounter: 75.4 kg (166 lb 3.6 oz). Most recent hematocrit and potassium results: Hematocrit 48.0 11/04/2024 Potassium 4.1 11/04/2024 Relevant Problems ANESTHESIA (+) Sleep apnea CARDIO (+) CAD (coronary artery disease) (+) HTN (hypertension) (+) History of coronary artery bypass graft (+) Stented coronary artery ENDO (+) Diabetes mellitus, type 2 (HCC) NEURO-PSYCH (+) History of psychiatric care PULMONARY (+) Sleep apnea Other (+) Arthritis I - PHYSICAL EVALUATION AIRWAY Patient intubated: No. Tracheostomy tube not present Mallampati: III. TM distance: >3 FB. Neck ROM: full ROM without neurological symptoms. Mouth opening: adequate. Short neck: no. Thick neck: no DENTAL Dental findings: teeth intact. II - ANESTHESIA PLAN ASA Score: 3 Anesthetic Plan: general Airway type: ETT NPO Status: adequate Beta [place] Monitoring Plan Monitoring plan: standard ASA and invasive hemodynamic monitoring. Monitoring method: arterial Line (possible marina) Post Procedure Analgesic Plan Postoperative analgesic plan: parenteral or oral opioids, multimodal analgesia and per surgical service. Informed Consent Anesthetic risks, benefits, alternatives, personnel and consent discussed: yes. Patient / Responsible Alliance Party agrees to proceed: yes Patient / Surrogate agrees to blood products: blood products not planned Vitals Value Taken Time BP 134/71 11/30/24 1054 Pulse 69 11/30/24 1056 Resp 18 11/30/24 1054 Temp 36.5 ?C (97.7 ?F) 11/30/24 1054 SpO2 98 % 11/30/24 1056 Vitals shown include unfiled device data. Facility-Administered Medications as of 11/30/2024 Medication Dose Route Frequency lidocaine (PF) 10 mg/mL (1 %) 2 mg injection (XYLOCAINE) 0.2 mL INTRADERMAL PRN lactated ringers iv infusion 30 mL/hr INTRAVENOUS CONTINUOUS NaCl 0.9% iv flush bag 20 mL INTRAVENOUS PRN ceFAZolin iv piggyback 2 g in D5W (iso-osmotic) 100 mL (ANCEF) 2 g INTRAVENOUS ONCE vancomycin iv piggyback 1 g in D5W 200 mL (VANCOCIN) 1 g INTRAVENOUS ONCE tranexamic acid (CYKLOKAPRON) in NaCl 0.7% 1,000 mg 100 mL 1,000 mg INTRAVENOUS ONCE Outpatient Medications as of 11/30/2024 Medication Sig JANUMET 50-1,000 mg per tablet Take 1 tablet by mouth two times a day with meals. ARIPiprazole (ABILIFY) 5 mg tablet Take 5 mg by mouth once daily. cariprazine (VRAYLAR) 1.5 mg capsule Take 1.5 mg by mouth once daily. JARDIANCE 10 mg tablet Take 10 mg by mouth once daily. fluconazole (DIFLUCAN) 100 mg tablet Take 100 mg by mouth as needed (yeast infections). fluticasone (FLONASE) 50 mcg/actuation nasal spray Use 2 Sprays in each nostril once daily. hydrOXYzine HCl (ATARAX) 25 mg tablet Take 25 mg by mouth once daily. lidocaine (LIDODERM) 5 % Apply 1 Patch as directed every 12 hours. ARMS methocarbamol (ROBAXIN) 500 mg tablet Take 1,000 mg by mouth four times a day as needed (PAIN). pregabalin (LYRICA) 150 mg capsule Take 1 capsule by mouth three times a day for 30 days. aspirin 81 mg cap Take 81 mg by mouth once daily. Dr. Quintana manages. No instructions given albuterol HFA (PROVENTIL HFA, VENTOLIN HFA) 90 mcg/actuation inhaler Inhale 1-2 Puffs as instructed every 6 hours as needed for wheezing/shortness of breath. atorvastatin (LIPITOR) 40 mg tablet Take 40 mg by mouth once daily. clopidogrel (PLAVIX) 75 mg tablet Take 75 mg by mouth once daily. Dr. Quintana manages fluticasone-salmetero l (ADVAIR, WIXELA) 250-50 mcg/dose inhaler Inhale 1 Inhalation as instructed two times a day. metoprolol succinate ER (TOPROL XL) 25 mg 24 hr tablet Take 25 mg by mouth once daily. pantoprazole DR (PROTONIX) 40 mg tablet Take 40 mg by mouth every afternoon. traMADol (ULTRAM) 50 mg tablet Take 50 mg by mouth every 6 hours as needed for pain. I have interviewed and examined the patient. I have reviewed the medical record and/or the pre-anesthesia evaluation, pertinent labs, and test results. This contains updated information obtained within 48 hours of Surgery/Procedure. SIGNATURE: Ed Do DO PATIENT NAME: Chidi Musa DATE: November 30, 2024 TIME: 11:36 AM CSN: [id number] [facility] BRIEF OP NOTon 11-30-2024 BRIEF OP NOT HNO ID: [id number] Author: MAYANK SHEEHAN MD Service: Orthopaedic Surgery Author Type: Physician Type: Brief Op Note Filed: 11/30/2024 17:16 Note Text: Orthopaedic Surgery Brief Operative Note Log ID: [id number] Surgery/Procedure Date: 11/30/2024 Incision/Procedure Start Time: 3:24 PM Incision Close/Procedure End Time: 4:59 PM Surgeon(s)/Procedural ist(s) and Manufacturing Helper(s): Surgeons and Role: * Mayank Sheehan MD - Primary Physician Manufacturing Helper: Hannah Morrow PA-C Shaker Repairer: Gita Lindsey SA Procedure(s): C4-6 PSF with C5 laminectomy Anesthesia: General Pre-Op/Pre-Procedure Diagnosis: Cervical myelopathy Post-Op/Post-Procedur e Diagnosis: Same Fluids: 1,800 mL Estimated Blood Loss: 50 mL Rockwell: None Specimens: None Drains: 10 [place] Hemovac Findings: See operative report. Complications: None Special medications: 2 g Ancef/1 g Vancomycin (IV)/1 g TXA/1 g Vancomycin powder Assessment: 59 year old female status-post: C4-6 PSF with C5 laminectomy. Post op plan: Pain control. Neuro checks Q4H. Activity: No cervical spine ROM. No lifting >15 lbs. Immobilization: Hard cervical collar at all times. Dressing(s): Aquacel - maintain until POD #5. Drain(s): 10 [place] Hemovac - maintain until output <30 mL/shift. PT/OT: Evaluation AND recommendations. DVT PPx: SCDs. No chemoprophylaxis. Antibiotics: Ancef 2 g Q8H and Vancomycin 1 g Q12 H for 24 hours. Rockwell: None. Imaging: X-rays of C-spine on POD #2. Anticipated Length of Stay/Disposition: 3-4 days/Home. Mayank Sheehan MD Orthopaedic Spine Surgery [facility] HISTORY PHYSICALon HISTORY PHYSICAL HNO ID: [id number] Author: MAYANK SHEEHAN MD Service: Orthopaedic Surgery Author Type: Physician Type: H&P Filed: 11/30/2024 11:15 Note Text: Orthopaedic Surgery History and Physical Date: November 30, 2024 Time: 11:13 AM History of Present Illness Chidi Musa is a 59 year old female who presents for elective posterior cervical decompression/fusion. She reports progressive worsening of symptoms in the last visit. Radiating pain into the bilateral upper extremities, but appreciable the right upper extremity, has worsened. She is very anxious to proceed with surgery. Review of Systems A 10-point review of systems was completed and is otherwise non-contributory to the patient's presenting condition. History PAST MEDICAL HISTORY Diagnosis Date Back pain [facility] Pain management Dr. Jorge follows Coronary artery disease 1 stent placed 09/08/19 Dr. Maldonado follows, started managaing care in 12/2023 Depression PCP manages Diabetes ([facility]) PCP manages Generalized anxiety disorder PCP manages GERD (gastroesophageal reflux disease) controlled with meds PCP follows Heart attack ([facility]) 05/2020 CABG X3-Shya Hypertension PCP manages/ controlled on meds Mixed hyperlipidemia controlled with meds PCP follows Neck pain Dr. Sheehan follows- reported falling off pickup truck bed 08/30/24 and has had problems since. muscle spasms down both arms/shoulders AVE (obstructive sleep apnea) sleep study completed 2023 [facility]. due to anxiety/depression noncompliant with cpap. unable to tolerate mask Other emphysema ([facility]) [facility] T Se[facility] pulmonology vickie. 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 [address] Quintana follows-aspirin/plavi x PAST SURGICAL HISTORY Procedure Laterality Date ADDTL NECK SPINE FUSION 06/30/2007 [place] ARTHROTOMY W/MENISCUS REPAIR KNEE Left 06/18/2007 CABG (3) VEIN GRAFTS AND ARTERIAL GRAFT(S) 05/2020 Shiela Rendon PAST SURGICAL HISTORY OF Left 09/02/2024 stent placement Iliac artery PAST SURGICAL HISTORY OF 09/08/2019 1 stent placed in heart REMOVAL GALLBLADDER 04/11/1986 [facility] TOTAL ABDOM HYSTERECTOMY 08/30/2005 at [facility] Depression Screening Never done Anxiety Screening Never done Hepatitis C Screening Never done HIV Screening Never done DTaP,Tdap,Td Vaccine(1 - Tdap) Never done Cervical Cancer Screening Never done Shingrix Vaccine(1 of 2) Never done Pneumococcal Vaccine: 50+(1 of 1 - PCV) Never done Mammogram Screening due on 09/21/2020 Influenza Vaccine(1) Never done Covid-19 Vaccine(1 - 2023- season) Never done RSV Vaccine(1 - Risk 60-74 years 1-dose series) Never done Colorectal Cancer Screening due on 10/09/2024 Lipid Screening due on 11/16/2024 Diabetes Screening due on 11/09/2027 A review of the patient's history was completed and is otherwise non-contributory to the patient's presenting condition. Medications JANUMET 50-1,000 mg per tabletTake 1 tablet by mouth two times a day with meals.Disp: Rfl: ARIPiprazole (ABILIFY) 5 mg tabletTake 5 mg by mouth once daily.Disp: Rfl: cariprazine (VRAYLAR) 1.5 mg capsuleTake 1.5 mg by mouth once daily.Disp: Rfl: JARDIANCE 10 mg tabletTake 10 mg by mouth once daily.Disp: Rfl: fluconazole (DIFLUCAN) 100 mg tabletTake 100 mg by mouth as needed (yeast infections).Disp: Rfl: fluticasone (FLONASE) 50 mcg/actuation nasal sprayUse 2 Sprays in each nostril once daily.Disp: Rfl: hydrOXYzine HCl (ATARAX) 25 mg tabletTake 25 mg by mouth once daily.Disp: Rfl: lidocaine (LIDODERM) 5 %Apply 1 Patch as directed every 12 hours. ARMSDisp: Rfl: methocarbamol (ROBAXIN) 500 mg tabletTake 1,000 mg by mouth four times a day as needed (PAIN).Disp: Rfl: pregabalin (LYRICA) 150 mg capsuleTake 1 capsule by mouth three times a day for 30 days.Disp: 90 capsuleRfl: 1 aspirin 81 mg capTake 81 mg by mouth once daily. Dr. Quintana manages. No instructions givenDisp: Rfl: albuterol HFA (PROVENTIL HFA, VENTOLIN HFA) 90 mcg/actuation inhalerInhale 1-2 Puffs as instructed every 6 hours as needed for wheezing/shortness of breath.Disp: Rfl: atorvastatin (LIPITOR) 40 mg tabletTake 40 mg by mouth once daily.Disp: Rfl: clopidogrel (PLAVIX) 75 mg tabletTake 75 mg by mouth once daily. Dr. Quintana managesDisp: Rfl: fluticasone-salmetero l (ADVAIR, WIXELA) 250-50 mcg/dose inhalerInhale 1 Inhalation as instructed two times a day.Disp: Rfl: metoprolol succinate ER (TOPROL XL) 25 mg 24 hr tabletTake 25 mg by mouth once daily.Disp: Rfl: pantoprazole DR (PROTONIX) 40 mg tabletTake 40 mg by mouth every afternoon.Disp: Rfl: traMADol (ULTRAM) 50 mg tabletTake 50 mg by mouth every 6 hours as needed for pain.Disp: Rfl: Vmyxa-8-RNL-EPA-Fish Oil (FISH OIL) 1,000 (120-180) mg capTake 2 g by mouth once daily. Last dose 11/09 due to surgeryDisp: Rfl: Allergies (more content not included)... [facility] OPERATIVE NOon 11-30-2024 OPERATIVE NO HNO ID: [id number] Author: MAYANK SHEEHAN MD Service: Orthopaedic Surgery Author Type: Physician Type: Operative Report Filed: 11/30/2024 17:21 Note Text: Orthopaedic Surgery Operative Report Patient Name: Chidi Musa Log ID: [id number] Surgery/Procedure Date: 11/30/2024 Incision/Procedure Start Time: 3:24 PM Incision Close/Procedure End Time: 4:59 PM Surgeon(s): Mayank Sheehan MD Manufacturing Helper(s): Surgeons and Role: * Mayank Sheehan MD - Primary Physician Manufacturing Helper: Hannah Morrow PA-C Shaker Repairer: Gita Lindsey SA PARTICIPATION IN SURGERY/PROCEDURE: The advanced practice provider provided surgical instrument mechanic services in a non-teaching setting. My assistant education director was present during patient positioning, prepping, draping, retracting, closing, and bandaging; and this assistance was medically necessary given the complexity of the case. Pre-Op/Pre-Procedure Diagnosis: Cervical myelopathy History of C6-7 ACDF Post-Op/Post-Procedur e Diagnosis: Same Anesthesia: General Procedure(s) in Summary: C4-6 posterior spinal fusion C4-6 instrumentation C5 laminectomy Application/removal of Fernando head stabilization system Intraoperative neuromonitoring Instrumentation: Globus Quartex Operative Procedure: The patient was identified in the preoperative holding area. Consent and surgical level were verified. The risks, benefits, and alternatives of surgery were reviewed, and the patient accepted and desired to proceed. All questions were answered, and no guarantees were given or implied. The patient voiced an understanding of the surgical plan and postoperative care. The patient was brought into the operating theater where anesthesia was induced. Line access was performed. Neuromonitoring, including MEPs and SSEPs, was set up and followed for the duration of the procedure. The patient head was stabilized using the [place] cranial stabilization system. The patient was positioned prone. Care was taken to pad all bony prominences from the head, upper extremities, trunk, and lower extremities. The patient was prepped and draped in the standard surgical fashion. A time-out was performed with the attending physicians present from both Anesthesia and Surgery, as well as the nursing staff members. Images were reviewed and surgical level and plan confirmed. Antibiotics were administered, and we proceeded with the surgery. A cosmetic, linear incision was made centered over the spinous processes of C4 to C6. Sharp and blunt dissection was carried out down to the deep fascia. We began to dissect the spine in a subperiosteal fashion from the spinous processes down laterally to the laminas, extending laterally to expose the lateral masses in the cervical spine and transverse processes in the thoracic spine. Hemostasis was achieved throughout the case with bovie, bipolar electrocautery, injectable gelfoam, and gelfoam/thrombin. Fluoroscopy was utilized to confirm the surgical levels of interest. Once the exposure was completed, our attention was next turned to our posterior segmental instrumentation from C4 to C6. Magerl lateral mass screw technique was utilized for lateral mass screws placed at C4-6. Each lateral mass screw was carefully measured and placed utilizing sequential drilling and probing. After an appropriate depth was reached, a ball-tip probe was used to ensure no cortical violation of the lateral masses was present. Each screw was then advanced by hand to appropriate depth. Fluoroscopy was used to confirm satisfactory placement of the screws. Our attention was then turned to the decompression. New decompression was performed at C5 levels. We performed cervical laminectomy, facetectomy, and foraminotomy at the abovementioned levels. A bur was used to perform the laminectomy, and the laminas were removed en bloc in a lobster tail fashion, taking care to free all adhesions from the dura. We then used a Kerrison rongeur to complete our foraminotomies and used a nerve hook to ensure adequate decompression of the exiting nerve roots. Rods were then cut and contoured. These were placed into the screw tulips and provisionally tightened. A final filteration operator was then used. Copious irrigation was undertaken with normal saline and Betadine saline solution. The posterior elements from C4 to C6 were decorticated. Local autograft and morselized allograft bone was placed for posterolateral spinal fusion at these levels after decortication of the posterior bony elements. A deep drain was placed. Vancomycin powder was applied in the wound. The wound was closed in layers. The muscles were approximated with interrupted 0-Ethibond. The fascia was closed with [id number] 0-Ethibond, followed by inverted 2-0 Vicryl dermal stitches and a running 2-0 Nylon for skin closure. A sterile dressing was applied. The patient was flipped supine, and the Fernando was then (more content not included)... Normal [facility] XR VERIFY LEVEL [id number] 11-30-2024 XR VERIFY LEVEL C-SPINE-NB * * *Final Report* * * DATE OF EXAM: Nov 30 2024 3:44PM [id number] - XR VERIFY LEVEL C-SPINE-NB / PROCEDURE REASON: Spinal stenosis, cervical * * * * Physician Interpretation * * * * XR VERIFY LEVEL C-SPINE-NB Ordering Physician: MAYANK SHEEHAN Clinical Statement: Spinal stenosis, cervical FINDINGS: The tip of the surgical clamp is at the C4 spinous process. IMPRESSION: Intraoperative localization as above. The findings were verbally confirmed with the spine surgeon at the time of the examination. 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: PILLO Transcribe Date/Time: Nov 30 2024 3:46P Dictated by : CAREY DAMON MD This examination was interpreted and the report reviewed and electronically signed by: CAREY DAMON MD on Nov 30 2024 3:46PM EST [id number] [facility] CHIDI MUSA ([id number]) 1965 F Date Time Provider Department 11/25/24 MAYANK SHEEHAN [facility] During your visit today, we recorded the following information about you: Kaleb Schultz LPN 11/25/2024 9:09 AM Signed Left 2nd message for Dr. Walter's nurse requesting update on clearance form. Asked for nurse to return call. Kaleb Schultz LPN Allergies As of Date: 11/25/2024 (No Known Allergies) Date Reviewed: 11/09/2024 Reviewed by: Lincoln Morgan, RNE - Fully Assessed Reason for Visit: Preparations For Surgery [898] Cmt: Medical clearance Prescriptions as of 11/25/2024 - Zrozv-5-YTE-EPA-Fish Oil (FISH OIL) 1,000 (120-180) mg cap Take 2 g by mouth once daily. Last dose 11/09 due to surgery - JANUMET 50-1,000 mg per tablet Take 1 tablet by mouth two times a day with meals. - ARIPiprazole (ABILIFY) 5 mg tablet Take 5 mg by mouth once daily. - cariprazine (VRAYLAR) 1.5 mg capsule Take 1.5 mg by mouth once daily. - JARDIANCE 10 mg tablet Take 10 mg by mouth once daily. - fluconazole (DIFLUCAN) 100 mg tablet Take 100 mg by mouth as needed (yeast infections). - fluticasone (FLONASE) 50 mcg/actuation nasal spray Use 2 Sprays in each nostril once daily. - hydrOXYzine HCl (ATARAX) 25 mg tablet Take 25 mg by mouth once daily. - lidocaine (LIDODERM) 5 % Apply 1 Patch as directed every 12 hours. ARMS - methocarbamol (ROBAXIN) 500 mg tablet Take 1,000 mg by mouth four times a day as needed (PAIN). - pregabalin (LYRICA) 150 mg capsule Take 1 capsule by mouth three times a day for 30 days. - aspirin 81 mg cap Take 81 mg by mouth once daily. Dr. Quintana manages. No instructions given - albuterol HFA (PROVENTIL HFA, VENTOLIN HFA) 90 mcg/actuation inhaler Inhale 1-2 Puffs as instructed every 6 hours as needed for wheezing/shortness of breath. - atorvastatin (LIPITOR) 40 mg tablet Take 40 mg by mouth once daily. - clopidogrel (PLAVIX) 75 mg tablet Take 75 mg by mouth once daily. Dr. Quintana manages - fluticasone-salmetero l (ADVAIR, WIXELA) 250-50 mcg/dose inhaler Inhale 1 Inhalation as instructed two times a day. - metoprolol succinate ER (TOPROL XL) 25 mg 24 hr tablet Take 25 mg by mouth once daily. - pantoprazole DR (PROTONIX) 40 mg tablet Take 40 mg by mouth every afternoon. - traMADol (ULTRAM) 50 mg tablet Take 50 mg by mouth every 6 hours as needed for pain. Problem List As Of Date 11/25/2024 Noted Resolved Cervical spondylosis with myelopathy [M47.12] 09/28/2024 Other chronic pain [G89.29] 11/10/2024 Long-term current use of opiate analgesic [Z79.*11/10/2024 Lumbosacral spondylosis without myelopathy [M47*11/10/2024 Encounter Status:Closed by KALEB SCHULTZ on 11/25/24 [facility] James 11-24-2024 EUGENIEN Telephone ([facility]) CHIDI MUSA ([id number]) 1965 F Date Time Provider Department 11/24/24 MAYANK SHEEHAN During your visit today, we recorded the following information about you: Kaleb Schultz LPN 11/24/2024 10:51 AM Addendum Vascular surgeon gave instructions for patient to hold Plavix x 5 days, he would prefer for patient to continue ASA 81 mg if possible, but he gave ok for patient to also hold for [address] Sheehan prefers. Per Dr. Sheehan, instructed patient to hold both Plavix and ASA for 5 days prior to surgery. He will have patient restart ASA on POD # 2. Patient voiced understanding. Kaleb Schultz LPN Allergies As of Date: 11/24/2024 (No Known Allergies) Date Reviewed: 11/09/2024 Reviewed by: Lincoln Morgan, RN - Fully Assessed Reason for Visit: Preparations For Surgery [898] Prescriptions as of 11/24/2024 - Okkgr-5-NUO-EPA-Fish Oil (FISH OIL) 1,000 (120-180) mg cap Take 2 g by mouth once daily. Last dose 11/09 due to surgery - JANUMET 50-1,000 mg per tablet Take 1 tablet by mouth two times a day with meals. - ARIPiprazole (ABILIFY) 5 mg tablet Take 5 mg by mouth once daily. - cariprazine (VRAYLAR) 1.5 mg capsule Take 1.5 mg by mouth once daily. - JARDIANCE 10 mg tablet Take 10 mg by mouth once daily. - fluconazole (DIFLUCAN) 100 mg tablet Take 100 mg by mouth as needed (yeast infections). - fluticasone (FLONASE) 50 mcg/actuation nasal spray Use 2 Sprays in each nostril once daily. - hydrOXYzine HCl (ATARAX) 25 mg tablet Take 25 mg by mouth once daily. - lidocaine (LIDODERM) 5 % Apply 1 Patch as directed every 12 hours. ARMS - methocarbamol (ROBAXIN) 500 mg tablet Take 1,000 mg by mouth four times a day as needed (PAIN). - pregabalin (LYRICA) 150 mg capsule Take 1 capsule by mouth three times a day for 30 days. - aspirin 81 mg cap Take 81 mg by mouth once daily. Dr. Quintana manages. No instructions given - albuterol HFA (PROVENTIL HFA, VENTOLIN HFA) 90 mcg/actuation inhaler Inhale 1-2 Puffs as instructed every 6 hours as needed for wheezing/shortness of breath. - atorvastatin (LIPITOR) 40 mg tablet Take 40 mg by mouth once daily. - clopidogrel (PLAVIX) 75 mg tablet Take 75 mg by mouth once daily. Dr. Quintana manages - fluticasone-salmetero l (ADVAIR, WIXELA) 250-50 mcg/dose inhaler Inhale 1 Inhalation as instructed two times a day. - metoprolol succinate ER (TOPROL XL) 25 mg 24 hr tablet Take 25 mg by mouth once daily. - pantoprazole DR (PROTONIX) 40 mg tablet Take 40 mg by mouth every afternoon. - traMADol (ULTRAM) 50 mg tablet Take 50 mg by mouth every 6 hours as needed for pain. Problem List As Of Date 11/24/2024 Noted Resolved Cervical spondylosis with myelopathy [M47.12] 09/28/2024 Other chronic pain [G89.29] 11/10/2024 Long-term current use of opiate analgesic [Z79.*11/10/2024 Lumbosacral spondylosis without myelopathy [M47*11/10/2024 Encounter Status:Closed by KALEB SCHULTZ on 11/24/24 [facility] MR/BMSTahmina 11-17-2024 MR/BMS.[facility] Vascular Surgery [address] [place] [address]. [address] [place] [address] OFFICE VISIT Date of Service: 11/17/24 MR#: [id number] Acct: [id number] Name: EVACHIDI BASIL Rep #: [id number] : 1965 Provider: HEIDI Allen Age/Sex: 59/F Location: [facility] Status: Signed Intake Vital Signs 11/04/24 08:58 11/17/24 14:16 Height 5 ft 2 in Weight: 166 lb BP 153/75 H Blood Pressure Location Lt brachial Position Sitting Respiration 16 Pulse 90 Pulse Source Monitor Temp 97.6 F L Temp Source Temporal Pulse Oximetry (%) 97 Oxygen Delivery Method room air Intake Visit Reasons: Surgical clearance Is patient in pain?: Yes Allergies No Known Allergies Allergy (Verified 11/17/24 14:17) Medications ???Medication ???Instructions ???Recorded ???Confirmed ???Type sitagliptin phosphate 50 1 ea PO BID 07/03/14 11/17/24 Hist ory mg-metformin 500 mg tablet (Janumet) atorvastatin 40 mg tablet 40 mg PO DAILY 05/12/24 11/17/24 H istory methocarbamol 500 mg tablet 500 mg PO QHS 05/12/24 11/17/24 Hi story metoprolol succinate 25 mg capsule 25 mg PO DAILY 05/12/24 11/17/24 History sprinkle, ext. release 24 hr pantoprazole 40 mg tablet,delayed 40 mg PO DAILY 05/12/24 11/17/24 History release tiotropium bromide 2.5 2 puff inhalation DAILY 05/12/24 0 11/17/24 History mcg/actuation mist for inhalation (Spiriva Respimat) albuterol sulfate 90 mcg/actuation 1 inh inhalation ONCE 05/20/24 0 11/17/24 History aerosol inhaler clopidogrel 75 mg tablet 75 mg PO QDAY 05/20/24 11/17/24 Hi story empagliflozin 10 mg tablet 10 mg PO DAILY 05/20/24 11/17/24 H istory (Jardiance) lidocaine 5 % topical patch 1 patch topical DAILY 05/20/24 History tramadol 50 mg tablet 50 mg PO DAILY 05/20/24 11/17/24 H istory aripiprazole 5 mg tablet 5 mg PO QDAY 08/11/24 11/17/24 His tory escitalopram oxalate 20 mg tablet 20 mg PO QDAY 08/11/24 11/17/24 H istory hydroxyzine HCl 25 mg tablet 25 mg PO TID 08/11/24 11/17/24 His tory aspirin 81 mg tablet,delayed 81 mg PO QDAY 09/16/24 11/17/24 Hi story release omega 5-vmo-qgz-fish oil 900 cap PO 09/16/24 11/17/24 History mg-1,400 mg capsule,delayed release (Fish Oil) fluticasone 250 mcg-salmeterol 50 1 ea inhalation BID 10/01/2410/31 History mcg/dose blistr powdr for inhalation (Advair Diskus) fluticasone propionate 50 2 spray intranasal QDAY 10/01/24 0 11/17/24 History mcg/actuation nasal spray,suspension (Allergy Relief (fluticasone)) pregabalin 150 mg capsule (Lyrica) 150 mg PO TID 11/17/24 11/17/24 History Is last menstrual period known: No Post menopausal: Yes Patient : No Have you fallen in the past year?: Yes PFSH Medical History Ventral hernia Coronary artery disease CALVIN (generalized anxiety disorder) MDD (major depressive disorder) AVE (obstructive sleep apnea) Lumbar foraminal stenosis Hyperlipidemia Peripheral neuropathy Type 2 diabetes mellitus COPD (chronic obstructive pulmonary disease) Atherosclerosis of [place] arteries of extremities with rest pain, left leg Aortoiliac occlusive disease Surgical History H/O angioplasty S/P insertion of iliac artery stent ( 05/2022) History of carotid endarterectomy History of oophorectomy History of cardiac catheterization History of spinal surgery History of colonoscopy Presence of stent in coronary artery Hx of CABG History of hysterectomy History of cholecystectomy Family History Mother Heart disease Father Cancer Social History Smoking Status: Former smoker Tobacco: How many years used: 38 how long ago did patient quit smokin months second hand exposure: Yes HPI HPI HPI: CHIDI MUSA, is a 59 F who presents to the office today for preoperative clearance. She relates that she fell off of a truck bed in August 2024 and landed on her tailbone. Subsequently, she has had severe neck pain with upper extremity radiculopathy; workup revealed significant cervical spine disc disease and she is scheduled for intervention with [facility] spine in early November. Recall that she recently underwent angioplasty and stent of the L YEIMY on 09/02/24 which was performed due to either recurrent or previously missed stenosis just proximal and inferior to her prior YEIMY stent which threatened the ongoing patency of this prior stent which had been placed when patient was living in [place]. Since this procedure, she has not had any new/worsened lower extremity pain, swelling, discoloration (more content not included)... [facility] CHIDI MUSA ([id number]) 1965 F Date Time Provider Department 11/13/24 RENE DAYRoshni During your visit today, we recorded the following information about you: Celine Hamilton MA 11/13/2024 5:58 AM Signed [employer] No-Show Documentation Chidi Musa no showed for an appointment on 11/11/2024 with N/Jer Day APRN. at [facility]. The patient was was scheduled for a follow up appointment. I called and spoke with the patient regarding missed appointment. No The patient stated the reason that they missed the appointment was because Could not make contact with patient . Resources discussed/offered to patient: No No show determined to be fault of patient: N/A This is the patients first no show in the last 12 months. Patient was rescheduled for 11/20/2024. Letter mailed regular mail AND certified : No Is this the Third or Fourth No Show? No Celine Hamilton MA November 13, 2024 5:53 AM Allergies As of Date: 11/13/2024 (No Known Allergies) Date Reviewed: 11/09/2024 Reviewed by: Lincoln Morgan, RN - Fully Assessed Prescriptions as of 11/13/2024 - Jgnvj-4-NNQ-EPA-Fish Oil (FISH OIL) 1,000 (120-180) mg cap Take 2 g by mouth once daily. Last dose 11/09 due to surgery - JANUMET 50-1,000 mg per tablet Take 1 tablet by mouth two times a day with meals. - ARIPiprazole (ABILIFY) 5 mg tablet Take 5 mg by mouth once daily. - cariprazine (VRAYLAR) 1.5 mg capsule Take 1.5 mg by mouth once daily. - JARDIANCE 10 mg tablet Take 10 mg by mouth once daily. - fluconazole (DIFLUCAN) 100 mg tablet Take 100 mg by mouth as needed (yeast infections). - fluticasone (FLONASE) 50 mcg/actuation nasal spray Use 2 Sprays in each nostril once daily. - hydrOXYzine HCl (ATARAX) 25 mg tablet Take 25 mg by mouth once daily. - lidocaine (LIDODERM) 5 % Apply 1 Patch as directed every 12 hours. ARMS - methocarbamol (ROBAXIN) 500 mg tablet Take 1,000 mg by mouth four times a day as needed (PAIN). - pregabalin (LYRICA) 150 mg capsule Take 1 capsule by mouth three times a day for 30 days. - aspirin 81 mg cap Take 81 mg by mouth once daily. Dr. Quintana manages. No instructions given - albuterol HFA (PROVENTIL HFA, VENTOLIN HFA) 90 mcg/actuation inhaler Inhale 1-2 Puffs as instructed every 6 hours as needed for wheezing/shortness of breath. - atorvastatin (LIPITOR) 40 mg tablet Take 40 mg by mouth once daily. - clopidogrel (PLAVIX) 75 mg tablet Take 75 mg by mouth once daily. Dr. Quintana manages - fluticasone-salmetero l (ADVAIR, WIXELA) 250-50 mcg/dose inhaler Inhale 1 Inhalation as instructed two times a day. - metoprolol succinate ER (TOPROL XL) 25 mg 24 hr tablet Take 25 mg by mouth once daily. - pantoprazole DR (PROTONIX) 40 mg tablet Take 40 mg by mouth every afternoon. - traMADol (ULTRAM) 50 mg tablet Take 50 mg by mouth every 6 hours as needed for pain. Problem List As Of Date 11/13/2024 Noted Resolved Cervical spondylosis with myelopathy [M47.12] 09/28/2024 Other chronic pain [G89.29] 11/10/2024 Long-term current use of opiate analgesic [Z79.*11/10/2024 Lumbosacral spondylosis without myelopathy [M47*11/10/2024 Encounter Status:Closed by CELINE HAMILTON on 11/13/24 [facility] CNCOon 11-12-2024 CNCO Letter Text [facility] EKGon 11-09-2024 Electrocardiogram Ventricular Rate : 7 4 BPM Atrial Rate : 74 BPM P-R Interval : 166 ms QRS Duration : 108 ms Q-T Interval : 406 ms QTC Calculation(Bazett) : 450 ms Calculated P Willard : 29 degrees Calculated R Willard : 4 degrees Calculated T Willard : 25 degrees Normal sinus rhythm Normal ECG No previous ECGs available Confirmed by REANNA SILVA MD ([id number]) on 11/09/2024 8:53:27 PM NAME : CHIDI MUSA PID : [id number] : 1965 Gender : Female Race : ORD : Procedure Date : Nov 09 2024 09:42:11 Edit Date : Nov 09 2024 20:53:31 Diagnosis: Normal sinus rhythm Normal ECG No previous ECGs available Confirmed by REANNA SILVA MD ([id number]) on 11/09/2024 8:53:27 PM Test Reason : Location : 2 : [facility] Overread By : REANNA SILVA MD Edited By : REANNA SILVA MD Referred By : QIANA Acquired by : TEMO [facility] HbA1c (Bld)on 11-09-2024 Average glucose Estimated from glycated hemoglobin (Bld) [Mass/Vol] 163 mg/dL [facility] Comment on above: Order Comment: Maryellen gallardo Type: BLOOD SPECIMENOrdering Facility: [facility] Address: [address] [place] [address] Result Comment: eAG: (Estimated average glucose) is a calculated value from HgbA1c and is shipping services sales representative of the average blood glucose level in the last 2-3 month period. Performed By: #### 5 5454-3 ####[facility] LABCLIA [id number] [place] [address] [place] HbA1c (Bld) [Mass fraction] 7.3 % High 4.3-5.6 [facility] Comment on above: Order Comment: Maryellen gallardo Type: BLOOD SPECIMENOrdering Facility: [facility] Address: [address] [place] [address] Result Comment: Amer [place] Diabetes Association guidelines indicate that patients with HgbA1c in the range 5.7-6.4% are at increased risk for development of diabetes, and intervention by lifestyle modification may be beneficial. HgbA1c greater or equal to 6.5% is considered diagnostic of diabetes. Performed By: #### 5 5454-3 ####[facility] LABCLIA [id number] [facility] [id number] [place] [address] [place] NT PRO BNPon 11-09-2024 Natriuretic peptide.B prohormone N-Terminal [Mass/Vol] 76 pg/mL NINF - 125 pg/mL [facility] Comment on above: NT-proBNP results of less than 300 pg/mL likely rules out acute congestive heart failure with 99% predictive value. NOTE: These cutoff points are suggested for ACUTE CHF DIAGNOSIS only Less than 50 years Greater than 450 pg/mL 50 - 75 years Greater than 900 pg/mL Greater than 75 years Greater than 1800 pg/mL NT-proBNP SerPl-mCncon 11-09 Natriuretic peptide.B prohormone N-Terminal [Mass/Vol] 76 pg/mL Normal <125 [facility] Comment on above: Order Comment: Speci sami Type: BLOOD SPECIMENOrdering Facility: [facility] Address: [address] [place] [address] Result Comment: NT-p roBNP results of less than 300 pg/mL likely rules out acute congestive heart failure with 99% predictive value. NOTE: These cutoff points are suggested for ACUTE CHF DIAGNOSIS only Less than 50 years\X09\ Greater than 450 pg/mL 50 - 75 years\X09\\X09\ Greater than 900 pg/mL Greater than 75 years\X09\ Greater than 1800 pg/mL Performed By: #### 3 3762-6 ####[facility] LABORATORYCLIA [id number] [place] [address] [place] Natriuretic peptide.B prohor darinel N-Terminal [Mass/Vol]on 11-09-2024 Interpretation and review of laboratory results Normal [facility] STAPHYLOCOCCUS AUREUS AND MR SA SCREEN, PCR, NASALon 11-09-2024 S. aureus and MRSA panel JASON+probe (Nose) Not detected Normal Not Detected [facility] Comment on above: Order Comment: Speci men Type: SWABOrdering Facility: [facility] Address: [address] [place], [place] [address] Performed By: #### S APCR ####[facility] LABORATORYCLIA [id number] [place] [address] [place] Basic metabolic 2000 panelon 11-04-2024 Anion gap [Moles/Vol] 10 mmol/L Normal 8-15 [facility] Comment on above: Order Comment: Speci men Type: BLOOD SPECIMENOrdering Facility: [facility] Address: [address] [place] [address] Performed By: #### 2 4321-2 ####[facility] LABCLIA [id number] [place] [address] [place] Calcium [Mass/Vol] 9.4 mg/dL Normal 8.5-10.2 [facility] Comment on above: Order Comment: Speci men Type: BLOOD SPECIMENOrdering Facility: [facility] Address: [address] [place], [place] [address] Performed By: #### 2 4321-2 ####[facility] LABCLIA [id number] [place] [address] [place] Chloride [Moles/Vol] 104 mmol/L Normal 98-107 [facility] Comment on above: Order Comment: Speci men Type: BLOOD SPECIMENOrdering Facility: [facility] Address: [address] [place], [place] [address] Performed By: #### 2 4321-2 ####[facility] LABCLIA [id number] [place] [id number] [place] CO2 [Moles/Vol] 25 mmol/L Normal 22-30 [facility] Comment on above: Order Comment: Speci men Type: BLOOD SPECIMENOrdering Facility: [facility] Address: [address] [place], [place] [address] Performed By: #### 2 4321-2 ####[facility] LABCLIA [id number] [address] [place] Creatinine [Mass/Vol] 0.58 mg/dL Normal 0.58-0.96 [facility] Comment on above: Order Comment: Maryellen gallardo Type: BLOOD SPECIMENOrdering Facility: [facility] Address: [address] [place] [address] Performed By: #### 2 4321-2 ####[facility] LABIA [id number] [address] Creatinine and Glomerular filtration rate.predicted panel (S/P/Bld) 104 mL/min/1.73m??? Normal >=60 [facility] Comment on above: Order Comment: Maryellen gallardo Type: BLOOD SPECIMENOrdering Facility: [facility] Address: [address] [place] [address] Result Comment: Jacinta mated Glomerular Filtration Rate (eGFR) is calculated using the 2020 CKD-EPI creatinine equation. This equation utilizes serum creatinine, sex, and age as parameters. The creatinine assay has traceable calibration to isotope dilution-mass spectrometry. Refer to KDIGO guidelines for clinical interpretation. In patients with unstable renal function, e.g. those with acute kidney injury, the eGFR may not accurately reflect actual GFR. Performed By: #### 2 4321-2 ####[facility] LABCLIA [id number] [place] [address] [place] Glucose [Mass/Vol] 210 mg/dL High 74-99 [facility] Comment on above: Order Comment: Maryellen gallardo Type: BLOOD SPECIMENOrdering Facility: [facility] Address: [address] [place] [address] Result Comment: The [place] Diabetes Association (ADA) provides guidance for cutoff values for fasting glucose and random glucose. The ADA defines fasting as no caloric intake for at least 8 hours. Fasting plasma glucose results between 100 to 125 mg/dL indicate increased risk for diabetes (prediabetes). Fasting plasma glucose results greater than or equal to 126 mg/dL meet the criteria for diagnosis of diabetes. In the absence of unequivocal hyperglycemia, results should be confirmed by repeat testing. In a patient with classic symptoms of hyperglycemia or hyperglycemic crisis, random plasma glucose results greater than or equal to 200 mg/dL meet the criteria for diagnosis of diabetes. Reference: Standards of Medical Care in Diabetes 2016, [place] Diabetes Association. Diabetes Care. 2016.39(Suppl 1). Performed By: #### 2 4321-2 ####[facility] LABCLIA [id number] [place] [address] [place] Potassium [Moles/Vol] 4.1 mmol/L Normal 3.7-5.1 [facility] Comment on above: Order Comment: Speci men Type: BLOOD SPECIMENOrdering Facility: [facility] Address: [address] [place] [address] Performed By: #### 2 4321-2 ####[facility] LABCLIA [id number] [place] [address] [place] Sodium [Moles/Vol] 139 mmol/L Normal 136-144 [facility] Comment on above: Order Comment: Speci men Type: BLOOD SPECIMENOrdering Facility: [facility] Address: [address] [place] [address] Performed By: #### 2 4321-2 ####[facility] LABIA [id number] [place] [address] [place] Urea nitrogen [Mass/Vol] 9 mg/dL Normal 7-21 [facility] Comment on above: Order Comment: Speci men Type: BLOOD SPECIMENOrdering Facility: [facility] Address: [address] [place] [address] Performed By: #### 2 4321-2 ####[facility] LABIA [id number] [place] [address] [place] CBC panel Auto (Bld)on 11-04 Erythrocyte distribution width (RBC) [Ratio] 12.7 % Normal 11.5-15.0 [facility] Comment on above: Order Comment: Speci men Type: BLOOD SPECIMENOrdering Facility: [facility] Address: [address] [place] [address] Performed By: #### 5 8410-2 ####[facility] LABCLIA [id number] [place] [address] [place] Hematocrit (Bld) [Volume fraction] 48.0 % High 36.0-46.0 [facility] Comment on above: Order Comment: Speci men Type: BLOOD SPECIMENOrdering Facility: [facility] Address: [address] [place] [address] Performed By: #### 5 8410-2 ####[facility] LABIA [id number] [place] [address] [place] Hemoglobin (Bld) [Mass/Vol] 15.6 g/dL High 11.5-15.5 [facility] Comment on above: Order Comment: Speci men Type: BLOOD SPECIMENOrdering Facility: [facility] Address: [address] [place] [address] Performed By: #### 5 8410-2 ####[facility] LABIA [id number] [place] [address] [place] MCH (RBC) [Entitic mass] 30.6 pg Normal 26.0-34.0 [facility] Comment on above: Order Comment: Speci men Type: BLOOD SPECIMENOrdering Facility: [facility] Address: [address] [place] [address] Performed By: #### 5 8410-2 ####[facility] LABIA [id number] [place] [address] [place] MCHC (RBC) [Mass/Vol] 32.5 g/dL Normal 30.5-36.0 [facility] Comment on above: Order Comment: Speci men Type: BLOOD SPECIMENOrdering Facility: [facility] Address: [address] [place] [address] Performed By: #### 5 8410-2 ####[facility] LABCLIA [id number] [place] [address] [place] MCV (RBC) [Entitic vol] 94.1 fL Normal 80.0-100.0 [facility] Comment on above: Order Comment: Speci men Type: BLOOD SPECIMENOrdering Facility: [facility] Address: [address] [place] [address] Performed By: #### 5 8410-2 ####[facility] LABIA [id number] [place] [address] [place] Nucleated RBC (Bld) [#/Vol] 10*3/uL Normal <0.01 [facility] Comment on above: Order Comment: Speci men Type: BLOOD SPECIMENOrdering Facility: [facility] Address: [address] [place] [address] Performed By: #### 5 8410-2 ####[facility] LABIA [id number] [place] [address] [place] Platelet mean volume (Bld) [Entitic vol] 10.2 fL Normal 9.0-12.7 [facility] Comment on above: Order Comment: Speci men Type: BLOOD SPECIMENOrdering Facility: [facility] Address: [address] [place] [address] Performed By: #### 5 8410-2 ####[facility] LABIA [id number] [place] [address] [place] Platelets (Bld) [#/Vol] 212 10*3/uL Normal 150-400 [facility] Comment on above: Order Comment: Speci men Type: BLOOD SPECIMENOrdering Facility: [facility] Address: [address] [place] [address] Performed By: #### 5 8410-2 ####[facility] LABCLIA [id number] [place] [address] [place] RBC (Bld) [#/Vol] 5.10 10*6/uL Normal 3.90-5.20 [facility] Comment on above: Order Comment: Speci men Type: BLOOD SPECIMENOrdering Facility: [facility] Address: [address] [place] [address] Performed By: #### 5 8410-2 ####[facility] LABIA [id number] [place] [address] [place] WBC (Bld) [#/Vol] 8.17 10*3/uL Normal 3.70-11.00 [facility] Comment on above: Order Comment: Speci men Type: BLOOD SPECIMENOrdering Facility: [facility] Address: [address] [place] [address] Performed By: #### 5 8410-2 ####[facility] LABIA [id number] [place] [address] [place] CNCOon 11-04-2024 CNCO Letter Text [facility] CNPNon 11-04-2024 EUGENIEN Telephone (PRANMY) CHIDI MUSA ([id number]) 1965 F Date Time Provider Department 11/04/24 YOLY PARR During your visit today, we recorded the following information about you: Patience Schwarz 11/12/2024 7:54 AM Signed [employer] No-Show Documentation Chidi Musa no showed for an appointment on 11/11/2024 with Carmine Day APRN. at 4:00 pm. The patient was was scheduled for a consult. I called and spoke with the patient regarding missed appointment. Yes, patient given [facility] contact number [phone] to reschedule. The patient stated the reason that they missed the appointment was because forgot about appointment . Resources discussed/offered to patient: No No show determined to be fault of patient: Yes This is the patients first no show in the last 12 months. Patient was rescheduled for na. Letter mailed regular mail . Yes Is this the Third or Fourth No Show? No Patience Schwarz November 12, 2024 7:51 AM Allergies As of Date: 11/04/2024 (No Known Allergies) Date Reviewed: 11/04/2024 Reviewed by: Yoly Parr RN - Fully Assessed Reason for Visit: Appointment [186] Cmt: No show Prescriptions as of 11/12/2024 - Qlhht-8-PBY-EPA-Fish Oil (FISH OIL) 1,000 (120-180) mg cap Take 2 g by mouth once daily. Last dose 11/09 due to surgery - JANUMET 50-1,000 mg per tablet Take 1 tablet by mouth two times a day with meals. - ARIPiprazole (ABILIFY) 5 mg tablet Take 5 mg by mouth once daily. - cariprazine (VRAYLAR) 1.5 mg capsule Take 1.5 mg by mouth once daily. - JARDIANCE 10 mg tablet Take 10 mg by mouth once daily. - fluconazole (DIFLUCAN) 100 mg tablet Take 100 mg by mouth as needed (yeast infections). - fluticasone (FLONASE) 50 mcg/actuation nasal spray Use 2 Sprays in each nostril once daily. - hydrOXYzine HCl (ATARAX) 25 mg tablet Take 25 mg by mouth once daily. - lidocaine (LIDODERM) 5 % Apply 1 Patch as directed every 12 hours. ARMS - methocarbamol (ROBAXIN) 500 mg tablet Take 1,000 mg by mouth four times a day as needed (PAIN). - pregabalin (LYRICA) 150 mg capsule Take 1 capsule by mouth three times a day for 30 days. - aspirin 81 mg cap Take 81 mg by mouth once daily. Dr. Quintana manages. No instructions given - albuterol HFA (PROVENTIL HFA, VENTOLIN HFA) 90 mcg/actuation inhaler Inhale 1-2 Puffs as instructed every 6 hours as needed for wheezing/shortness of breath. - atorvastatin (LIPITOR) 40 mg tablet Take 40 mg by mouth once daily. - clopidogrel (PLAVIX) 75 mg tablet Take 75 mg by mouth once daily. Dr. Quintana manages - fluticasone-salmetero l (ADVAIR, WIXELA) 250-50 mcg/dose inhaler Inhale 1 Inhalation as instructed two times a day. - metoprolol succinate ER (TOPROL XL) 25 mg 24 hr tablet Take 25 mg by mouth once daily. - pantoprazole DR (PROTONIX) 40 mg tablet Take 40 mg by mouth every afternoon. - traMADol (ULTRAM) 50 mg tablet Take 50 mg by mouth every 6 hours as needed for pain. Problem List As Of Date 11/04/2024 Noted Resolved Cervical spondylosis with myelopathy [M47.12] 09/28/2024 Encounter Status:Closed by PATIENCE SCHWARZ on 11/12/24 Normal [facility] PT panel Coag (PPP)on 2024 INR Coag (PPP) [Relative time] 1.0 {INR} Normal 0.9-1.3 [facility] Comment on above: Order Comment: Speci men Type: BLOOD SPECIMENOrdering Facility: [facility] Address: [address] [place] [address] Result Comment: Kayla min K Antagonist (VKA) Therapeutic Range: INR 2 to 3 (Target INR of 2.5) Note: For patients treated with VKA drugs, such as warfarin, the [employer] 2012 Guideline recommends a therapeutic INR range of 2 to 3 (target INR of 2.5). This recommendation includes high-risk patients with antiphospholipid syndrome with previous arterial or venous thromboembolism, current-generation mechanical or bioprosthetic aortic heart valve replacement. Note: Patients with mechanical aortic valve replacement and additional risk factors for thromboembolic events (atrial fibrillation, previous thromboembolism, LV dysfunction, hypercoagulable conditions) or an older generation mechanical AVR (i.e., ball in-Cage) or any mechanical MVR should have a INR therapeutic range of 2.5 to 3.5 (target INR of 3). Judi GH, et al. Chest 2012, 141:7S-47S Michaela RA, et al. [facility] 2017, 70: 252-289 Performed By: #### 3 4528-0 ####[facility] LABCLIA [id number] [facility] [id number] [place] PT Coag (PPP) [Time] 10.6 s Normal 9.7-13.0 [facility] Comment on above: Order Comment: Speci men Type: BLOOD SPECIMENOrdering Facility: [facility] Address: [address] [place] [address] Performed By: #### 3 4528-0 ####[facility] LABCLIA [id number] [place] [address] [place] TYPE AND SCREEN,30 DAYon ABO A Normal [facility] Comment on above: Order Comment: Speci men Type: BLOOD SPECIMENOrdering Facility: [facility] Address: [address] [place] [address] Performed By: #### T SCR30 ####[facility] BLOOD BANKIA [id number] [place] [address] [place] Rh Nom (Bld) Positive Normal [facility] Comment on above: Order Comment: Speci men Type: BLOOD SPECIMENOrdering Facility: [facility] Address: [address] [place] [address] Performed By: #### T SCR30 ####[facility] BLOOD BANKCLIA [id number] [address] [place] Lipid Profileon 11-02-2024 Cholesterol [Mass/Vol] 184 mg/dL Normal 200 [facility] Comment on above: Result Comment: <200 mg/dL Desirable 200-240 mg/dL Borderline >240 mg/dL High Risk Performed By: #### L 500.3400, L500.4100 ####[facility] [address] [place], [address] Cholesterol in HDL [Mass/Vol] 44 mg/dL Normal [facility] Comment on above: Result Comment: The drugs N-Acetylcysteine and Metamizole may falsely depress this assay. Reference Range HDL <40 mg/dL Low HDL Cholesterol HDL >or= 60 mg/dL High HDL Cholesterol Performed By: #### L 500.3400, L500.4100 ####[facility] [address] [place], [address] Cholesterol in LDL [Mass/Vol] 92 mg/dL Normal 0-130 [facility] Comment on above: Performed By: #### L 500.3400, L500.4100 ####[facility] [address] [place], [address] Cholesterol in VLDL [Mass/Vol] 48 mg/dL High 5-40 [facility] Comment on above: Performed By: #### L 500.3400, L500.4100 ####[facility] [address] [place], [address] Triglyceride [Mass/Vol] 242 mg/dL High [facility] Comment on above: Result Comment: The drugs N-Acetylcysteine and Metamizole may falsely depress this assay. Serum Triglycerides Reference Interval Normal <150 mg/dL Borderline high 150 - 199 mg/dL High 200 - 499 mg/dL Very High > or = 500 mg/dL Performed By: #### L 500.3400, L500.4100 ####[facility] [address] [place], [address] Liver Profileon 11-02-2024 Albumin [Mass/Vol] 3.8 g/dL Normal 3.2-5.0 [facility] Comment on above: Performed By: #### L 500.3400, L500.4100 #### [facility] [address] [place], [address] ALK P 72 U/L Normal 45-117 [facility] Comment on above: Performed By: #### L 500.3400, L500.4100 #### [facility] [address] [place], [address] ALT [Catalytic activity/Vol] 20 U/L Normal 13-56 [facility] Comment on above: Performed By: #### L 500.3400, L500.4100 #### [facility] [address] [place], [address] AST [Catalytic activity/Vol] 9 U/L Low 15-37 [facility] Comment on above: Performed By: #### L 500.3400, L500.4100 #### [facility] [address] [place], [address] Bilirubin [Mass/Vol] 0.60 mg/dL Normal 0.20-1.00 [facility] Comment on above: Result Comment: For patients on eltrombopag therapy, use of Dimension [place] TBIL is not recommended. Performed By: #### L 500.3400, L500.4100 #### [facility] [address] [place], [address] Bilirubin.direct [Mass/Vol] 0.15 mg/dL Normal 0.00-0.30 [facility] Comment on above: Performed By: #### L 500.3400, L500.4100 #### [facility] [address] [place], [address] Globulin (S) [Mass/Vol] 3.9 g/dL Normal 2.2-4.2 [facility] Comment on above: Performed By: #### L 500.3400, L500.4100 #### [facility] [address] [place], [address] T PROT 7.7 g/dL Normal 6.4-8.2 [facility] Comment on above: Performed By: #### L 500.3400, L500.4100 #### [facility] [address] [place], [address] CNCOon 10-30-2024 CNCO Letter Text [facility] James 10-30-2024 CNPN Telephone ([facility]) CHIDI MUSA ([id number]) 1965 F Date Time Provider Department 10/30/24 MAYANK SHEEHAN During your visit today, we recorded the following information about you: Kaleb Schultz LPN 10/30/2024 8:39 AM Signed Scheduled C4-6 PSF and C5 laminectomy on 11/30/24 at [facility]. POV with Dr. Sheehan is scheduled on 12/15/24, [facility]. Instructions, surgery guide, and skin prep were given to patient at 10/27/24 office visit. All questions were answered at that time. Faxed medical clearance to Josephine Walter CNP, cardiac clearance to Dr. Andrew Maldonado and vascular clearance to Dr. Alejandro Quintana. Kaleb Schultz LPN Allergies As of Date: 10/30/2024 (No Known Allergies) Date Reviewed: 10/27/2024 Reviewed by: Estela Foy MA - Fully Assessed Reason for Visit: Preparations For Surgery [898] Prescriptions as of 10/30/2024 - JANUMET 50-1,000 mg per tablet - ARIPiprazole (ABILIFY) 5 mg tablet - benzonatate (TESSALON PERLE) 100 mg capsule Take 100 mg by mouth. - cariprazine (VRAYLAR) 1.5 mg capsule 1.5 mg. - cyclobenzaprine (FLEXERIL) 10 mg tablet 1 tablet at bedtime as needed Orally Once a day - doxycycline hyclate (VIBRAMYCIN) 100 mg capsule Take 1 capsule by mouth every 12 hours. - JARDIANCE 10 mg tablet 10 mg. - fluconazole (DIFLUCAN) 100 mg tablet - fluticasone (FLONASE) 50 mcg/actuation nasal spray USE 1 SPRAY(S) IN EACH NOSTRIL ONCE DAILY - hydrOXYzine HCl (ATARAX) 25 mg tablet - lidocaine (LIDODERM) 5 % - losartan (COZAAR) 25 mg tablet Take 25 mg by mouth. - methocarbamol (ROBAXIN) 500 mg tablet Take 1,000 mg by mouth four times a day as needed. - metoprolol tartrate, short acting, (LOPRESSOR) 50 mg tablet Take 50 mg by mouth. - montelukast (SINGULAIR) 10 mg tablet Take 10 mg by mouth. - omeprazole (PRILOSEC) 40 mg capsule 1 capsule 30 minutes before morning meal Orally Once a day - predniSONE (DELTASONE) 20 mg tablet - ticagrelor (BRILINTA) 90 mg tablet Take 90 mg by mouth. - traZODone (DESYREL) 100 mg tablet 100 mg. - pregabalin (LYRICA) 150 mg capsule Take 1 capsule by mouth three times a day for 30 days. - aspirin 81 mg cap Take by mouth. - albuterol HFA (PROVENTIL HFA, VENTOLIN HFA) 90 mcg/actuation inhaler Inhale 1-2 Puffs as instructed every 6 hours as needed for wheezing/shortness of breath. - atorvastatin (LIPITOR) 40 mg tablet Take 40 mg by mouth once daily. - clopidogrel (PLAVIX) 75 mg tablet Take 1 tablet by mouth every afternoon. - escitalopram oxalate (LEXAPRO) 10 mg tablet Take 1 tablet by mouth every afternoon. - fluticasone-salmetero l (ADVAIR, WIXELA) 250-50 mcg/dose inhaler Inhale 1 Inhalation as instructed two times a day. - gabapentin (NEURONTIN) 300 mg capsule Take 600 mg by mouth three times a day. - metoprolol succinate ER (TOPROL XL) 25 mg 24 hr tablet Take 25 mg by mouth once daily. - pantoprazole DR (PROTONIX) 40 mg tablet Take 1 tablet by mouth every afternoon. - traMADol (ULTRAM) 50 mg tablet Take 50 mg by mouth every 6 hours as needed for pain. - SITagliptin-metFORMIN (JANUMET XR) 50-1,000 mg TM24 Take 2 tablets by mouth once daily. - tiotropium (SPIRIVA) 18 mcg inhalation capsule Inhale 18 mcg as instructed once daily. Problem List As Of Date 10/30/2024 Noted Resolved Cervical spondylosis with myelopathy [M47.12] 09/28/2024 Encounter Status:Closed by KALEB SCHULTZ on 10/30/24 [facility] CHIDI MUSA ([id number]) 1965 F Date Time Provider [facility] During your visit today, we recorded the following information about you: Isaiah Quintana 10/28/2024 9:05 AM Signed Spoke to patient to garbage pick up man her disc for the lumbar spine, she will pick this up the next time she is in to see Dr Sheehan. Allergies As of Date: 10/28/2024 (No Known Allergies) Date Reviewed: 10/27/2024 Reviewed by: Estela Foy MA - Fully Assessed Prescriptions as of 10/28/2024 - JANUMET 50-1,000 mg per tablet - ARIPiprazole (ABILIFY) 5 mg tablet - benzonatate (TESSALON PERLE) 100 mg capsule Take 100 mg by mouth. - cariprazine (VRAYLAR) 1.5 mg capsule 1.5 mg. - cyclobenzaprine (FLEXERIL) 10 mg tablet 1 tablet at bedtime as needed Orally Once a day - doxycycline hyclate (VIBRAMYCIN) 100 mg capsule Take 1 capsule by mouth every 12 hours. - JARDIANCE 10 mg tablet 10 mg. - fluconazole (DIFLUCAN) 100 mg tablet - fluticasone (FLONASE) 50 mcg/actuation nasal spray USE 1 SPRAY(S) IN EACH NOSTRIL ONCE DAILY - hydrOXYzine HCl (ATARAX) 25 mg tablet - lidocaine (LIDODERM) 5 % - losartan (COZAAR) 25 mg tablet Take 25 mg by mouth. - methocarbamol (ROBAXIN) 500 mg tablet Take 1,000 mg by mouth four times a day as needed. - metoprolol tartrate, short acting, (LOPRESSOR) 50 mg tablet Take 50 mg by mouth. - montelukast (SINGULAIR) 10 mg tablet Take 10 mg by mouth. - omeprazole (PRILOSEC) 40 mg capsule 1 capsule 30 minutes before morning meal Orally Once a day - predniSONE (DELTASONE) 20 mg tablet - ticagrelor (BRILINTA) 90 mg tablet Take 90 mg by mouth. - traZODone (DESYREL) 100 mg tablet 100 mg. - pregabalin (LYRICA) 150 mg capsule Take 1 capsule by mouth three times a day for 30 days. - aspirin 81 mg cap Take by mouth. - albuterol HFA (PROVENTIL HFA, VENTOLIN HFA) 90 mcg/actuation inhaler Inhale 1-2 Puffs as instructed every 6 hours as needed for wheezing/shortness of breath. - atorvastatin (LIPITOR) 40 mg tablet Take 40 mg by mouth once daily. - clopidogrel (PLAVIX) 75 mg tablet Take 1 tablet by mouth every afternoon. - escitalopram oxalate (LEXAPRO) 10 mg tablet Take 1 tablet by mouth every afternoon. - fluticasone-salmetero l (ADVAIR, WIXELA) 250-50 mcg/dose inhaler Inhale 1 Inhalation as instructed two times a day. - gabapentin (NEURONTIN) 300 mg capsule Take 600 mg by mouth three times a day. - metoprolol succinate ER (TOPROL XL) 25 mg 24 hr tablet Take 25 mg by mouth once daily. - pantoprazole DR (PROTONIX) 40 mg tablet Take 1 tablet by mouth every afternoon. - traMADol (ULTRAM) 50 mg tablet Take 50 mg by mouth every 6 hours as needed for pain. - SITagliptin-metFORMIN (JANUMET XR) 50-1,000 mg TM24 Take 2 tablets by mouth once daily. - tiotropium (SPIRIVA) 18 mcg inhalation capsule Inhale 18 mcg as instructed once daily. Problem List As Of Date 10/28/2024 Noted Resolved Cervical spondylosis with myelopathy [M47.12] 09/28/2024 Encounter Status:Closed by ISAIAH UQINTANA on 10/28/24 [facility] Drea 10-27-2024 [facility] Office Visit ([facility] ) CHIDI MUSA ([id number]) 1965 F Date Time Provider Department 10/27/24 2:00 PM MAYANK SHEEHAN During your visit today, we recorded the following information about you: Pulse Weight Height 83/minute 71.8 kg 1.575 m FoyEstela rivera MA 10/27/2024 4:25 PM Signed 59 year old female pt here for cervical pain and results. 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 At our prior visit I recommended CT of cervical spine for surgical planning. Chidi Musa presents today for repeat evaluation and surgical discussion. She reports progressive worsening of symptoms in the last visit. Radiating pain into the bilateral upper extremities, but appreciable the right upper extremity, has worsened. She is very anxious to proceed with surgery. Of note, the patient reports significant hoarseness following the initial surgery that has progressively worsened as well as continued difficulty swallowing after her initial ACDF. Summary of Symptoms Pain Location: Cervical and lumbar spine Radiation of Pain: Bilateral upper extremities, bilateral buttocks lateral thighs Weakness: Bilateral extremities Dexterity Issues: Yes Imbalance: Yes Falls: Yes Bowel/Bladder Dysfunction: No Change in Symptoms: Worsening pain in cervical spine as well as worsening bilateral hand numbness Prior Conservative Treatment Physical Therapy: Yes (>1 year ago) Medications: Gabapentin, tramadol Pain Management: No (previously effective, but no relief with most recent injection) Injections: Yes Surgery: ACDF (uncertain of surgeon name or level) Other: No The following portions of the patient's history were reviewed and updated as appropriate: allergies, current medications, past family history, past medical history, past social history, past surgical history and problem list. ACTIVE PROBLEM LIST Cervical Spondylosis With Myelopathy History reviewed. No pertinent past medical history. History reviewed. No pertinent surgical history. History reviewed. No pertinent family history. Social History Tobacco Use Smoking status: Former Current packs/day: 1.00 Average packs/day: 1 pack/day for 38.0 years (38.0 ttl pk-yrs) Types: Cigarettes Smokeless tobacco: Never Substance Use Topics Alcohol use: Yes Drug use: Not Currently ALLERGIES No Known Allergies Medications: JANUMET 50-1,000 mg per tablet ARIPiprazole (ABILIFY) 5 mg tablet benzonatate (TESSALON PERLE) 100 mg capsule Take 100 mg by mouth. doxycycline hyclate (VIBRAMYCIN) 100 mg capsule Take 1 capsule by mouth every 12 hours. JARDIANCE 10 mg tablet 10 mg. fluconazole (DIFLUCAN) 100 mg tablet fluticasone (FLONASE) 50 mcg/actuation nasal spray USE 1 SPRAY(S) IN EACH NOSTRIL ONCE DAILY hydrOXYzine HCl (ATARAX) 25 mg tablet lidocaine (LIDODERM) 5 % losartan (COZAAR) 25 mg tablet Take 25 mg by mouth. methocarbamol (ROBAXIN) 500 mg tablet Take 1,000 mg by mouth four times a day as needed. metoprolol tartrate, short acting, (LOPRESSOR) 50 mg tablet Take 50 mg by mouth. predniSONE (DELTASONE) 20 mg tablet ticagrelor (BRILINTA) 90 mg tablet Take 90 mg by mouth. traZODone (DESYREL) 100 mg tablet 100 mg. pregabalin (LYRICA) 150 mg capsule Take 1 capsule by mouth three times a day for 30 days. aspirin 81 mg cap Take by mouth. albuterol HFA (PROVENTIL HFA, VENTOLIN HFA) 90 mcg/actuation inhaler Inhale 1-2 Puffs as instructed every 6 hours as needed for wheezing/shortness of breath. atorvastatin (LIPITOR) 40 mg tablet Take 40 mg by mouth once daily. clopidogrel (PLAVIX) 75 mg tablet Take 1 tablet by mouth every afternoon. fluticasone-salmetero l (ADVAIR, WIXELA) 250-50 mcg/dose inhaler Inhale 1 Inhalation as instructed two times a day. metoprolol succinate ER (TOPROL XL) 25 mg 24 hr tablet Take 25 mg by mouth once daily. pantoprazole DR (PROTONIX) 40 mg tablet Take 1 tablet by mouth every afternoon. SITagliptin-metFORMIN (JANUMET XR) 50-1,000 mg TM24 Take 2 tablets by mouth once daily. tiotropium (SPIRIVA) 18 mcg inhalation capsule Inhale 18 mcg as instructed once daily. cariprazine (VRAYLAR) 1.5 mg capsule 1.5 mg. cyclobenzaprine (FLEXERIL) 10 mg tab (more content not included)... Normal [facility] CT CERVICAL SPINE WO IVCONon 10-20-2024 CT CERVICAL SPINE WO IVCON * * *Final Report* * * DATE OF EXAM: Oct 20 2024 9:05AM [facility] 0505 - CT CERVICAL SPINE WO IVCON / PROCEDURE REASON: Spinal stenosis of cervical region * * * * Physician Interpretation * * * * EXAMINATION: CT CERVICAL SPINE WO IVCON CLINICAL HISTORY: Spinal stenosis of cervical region TECHNIQUE: Spiral, high resolution axial unenhanced images were obtained from the skull base to the cervicothoracic junction with sagittal and coronal planar reconstructions. MQ: [id number] CT Radiation dose: Integrated CT Dose-Length Product (DLP) for this visit = 385 mGy*cm CT Dose Reduction Employed: Automated exposure control(AEC) and iterative recon COMPARISON: MRI cervical spine 09/21/2024 RESULT: Counting reference: Craniocervical junction. Anatomic Variants: None. Nanotechnician (topogram) images: Median sternotomy wires are present. Alignment: Mild diffuse levocurvature is present throughout the cervical spine. Trace degenerative anterolisthesis of C5 on C6. Of the normal cervical lordosis. Craniocervical junction: Craniocervical junction is normal. Osseous structures/fracture: Chronic postsurgical changes of C6-C7 ACDF with plate and screw fixation and interbody grafting. No evidence of a lytic or blastic process in the visualized spine. No evidence of acute or chronic fracture. Cervical soft tissues: Calcified atherosclerotic plaque is present along the bilateral carotid artery bifurcations. No evidence of prevertebral edema. Query right vocal cord paralysis. Degenerative changes: Degenerative disc disease is most pronounced at C5-C6 with small posterior disc osteophyte complex resulting in mild to moderate canal stenosis. Foraminal stenosis is better characterized on recent MRI. Additional comments: Centrilobular and paraseptal emphysema are present within the lung apices. IMPRESSION: Degenerative disc disease is most pronounced at C5-C6 with small posterior disc osteophyte complex resulting in mild to moderate canal stenosis. Foraminal stenosis is better characterized on recent MRI. Chronic postsurgical changes of C6-C7 ACDF with plate and screw fixation and interbody grafting. Anatomic Variant: None. Assume 7 cervical vertebrae with counting from the craniocervical junction. 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: [facility] Transcribe Date/Time: Oct 20 2024 9:19A Dictated by : RENETTA URIBE MD This examination was interpreted and the report reviewed and electronically signed by: RENETTA URIBE MD on Oct 20 2024 9:24AM EST [id number] Normal [facility] CT Cervical spine WO contras ton 10-20-2024 IMPRESSION: Degenerative disc disease is most pronounced at C5-C6 with small posterior disc osteophyte complex resulting in mild to moderate canal stenosis. Foraminal stenosis is better characterized on recent MRI. Chronic postsurgical changes of C6-C7 ACDF with plate and screw fixation and interbody grafting. Anatomic Variant: None. Assume 7 cervical vertebrae with counting from the craniocervical junction. 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: [facility] Transcribe Date/Time: Oct 20 2024 9:19A Dictated by : RENETTA URIBE MD This examination was interpreted and the report reviewed and electronically signed by: RENETTA URIBE MD on Oct 20 2024 9:24AM EST DIVISION OF RADIOLOGY * * *Final Report* * * DATE OF EXAM: Oct 20 2024 9:05AM [facility] 0505 - CT CERVICAL SPINE WO IVCON / PROCEDURE REASON: Spinal stenosis of cervical region * * * * Physician Interpretation * * * * EXAMINATION: CT CERVICAL SPINE WO IVCON CLINICAL HISTORY: Spinal stenosis of cervical region TECHNIQUE: Spiral, high resolution axial unenhanced images were obtained from the skull base to the cervicothoracic junction with sagittal and coronal planar reconstructions. MQ: CTCSPWO_5 CT Radiation dose: Integrated CT Dose-Length Product (DLP) for this visit = 385 mGy*cm CT Dose Reduction Employed: Automated exposure control(AEC) and iterative recon COMPARISON: MRI cervical spine 09/21/2024 RESULT: Counting reference: Craniocervical junction. Anatomic Variants: None. Nanotechnician (topogram) images: Median sternotomy wires are present. Alignment: Mild diffuse levocurvature is present throughout the cervical spine. Trace degenerative anterolisthesis of C5 on C6. Of the normal cervical lordosis. Craniocervical junction: Craniocervical junction is normal. Osseous structures/fracture: Chronic postsurgical changes of C6-C7 ACDF with plate and screw fixation and interbody grafting. No evidence of a lytic or blastic process in the visualized spine. No evidence of acute or chronic fracture. Cervical soft tissues: Calcified atherosclerotic plaque is present along the bilateral carotid artery bifurcations. No evidence of prevertebral edema. Query right vocal cord paralysis. Degenerative changes: Degenerative disc disease is most pronounced at C5-C6 with small posterior disc osteophyte complex resulting in mild to moderate canal stenosis. Foraminal stenosis is better characterized on recent MRI. Additional comments: Centrilobular and paraseptal emphysema are present within the lung apices. DIVISION OF RADIOLOGY Provider, [facility] - 10/20/2024 * * *Final Report* * * DATE OF EXAM: Oct 20 2024 9:05AM [facility] 0505 - CT CERVICAL SPINE WO IVCON / PROCEDURE REASON: Spinal stenosis of cervical region * * * * Physician Interpretation * * * * EXAMINATION: CT CERVICAL SPINE WO IVCON CLINICAL HISTORY: Spinal stenosis of cervical region TECHNIQUE: Spiral, high resolution axial unenhanced images were obtained from the skull base to the cervicothoracic junction with sagittal and coronal planar reconstructions. MQ: CTCSPWO_5 CT Radiation dose: Integrated CT Dose-Length Product (DLP) for this visit = 385 mGy*cm CT Dose Reduction Employed: Automated exposure control(AEC) and iterative recon COMPARISON: MRI cervical spine 09/21/2024 RESULT: Counting reference: Craniocervical junction. Anatomic Variants: None. Nanotechnician (topogram) images: Median sternotomy wires are present. Alignment: Mild diffuse levocurvature is present throughout the cervical spine. Trace degenerative anterolisthesis of C5 on C6. Of the normal cervical lordosis. Craniocervical junction: Craniocervical junction is normal. Osseous structures/fracture: Chronic postsurgical changes of C6-C7 ACDF with plate and screw fixation and interbody grafting. No evidence of a lytic or blastic process in the visualized spine. No evidence of acute or chronic fracture. Cervical soft tissues: Calcified atherosclerotic plaque is present along the bilateral carotid artery bifurcations. No evidence of prevertebral edema. Query right vocal cord paralysis. Degenerative changes: Degenerative disc disease is most pronounced at C5-C6 with small posterior disc osteophyte complex resulting in mild to moderate canal stenosis. Foraminal stenosis is better characterized on recent MRI. Additional comments: Centrilobular and paraseptal emphysema are present within the lung apices. IMPRESSION IMPRESSION: Degenerative disc disease is most pronounced at C5-C6 with small posterior disc osteophyte complex resulting in mild to moderate canal stenosis. Foraminal stenosis is better characterized on recent MRI. Chronic postsurgical changes of C6-C7 ACDF with plate and screw fixation and interbody grafting. Anatomic Variant: None. Assume 7 cervical vertebrae with counting from the craniocervical junction. 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: PSCB Transcribe Date/Time: Oct 20 2024 9:19A Dictated by : RENETTA URIBE MD This examination was interpreted and the report reviewed and electronically signed by: RENETTA URIBE MD on Oct 20 2024 9:24AM EST [facility] Radiology Study observation (narrative) [facility] CT Cervical spine WO contras tOrdered By: [facility] Provider on 10-20-2024 [facility] 6 Minute Walk Teston 025 6 Minute Walk Test y [facility] Pulmonary Services/Neurology [address] [place] [address] MR#: [id number] Acct: [id number] Name: CHIDI MUSA BASIL Rep #: [id number] : 1965 59 From: Varinder Rendon DO Referring Dr: Varinder Rendon DO Status: REG CLI Location: PSN Date: Sex: F C PSN 6 Minute Walk Test 6 Minute Walk Test 6 Minute Walk Test: 6 Minute Walk Test PSN:6-Minute Walk Test Start: 10/15/24 11:38 Freq: Status: Active Protocol: RESP.6MINW Document 10/15/24 11:38 EW (Rec: 10/15/24 11:40 EW [id number]) 6 Minute Walk Test Date Performed 10/15/24 Time Performed 11:30 Height 5 ft 2 in Weight: 157 lb Weight in Pounds 157.0 lbs Assistive device used: None Pre-test Oxygen Delivery Method Room Air Pulse Ox (%) 97 Pulse Rate (60-100 beats/min) 90 Dyspnea Fran Scale (0-10) 0 Exertion Fran Scale (6-20) 7 1st minute Oxygen Delivery Method Room Air Pulse Ox (%) 95 Pulse Rate (60-100 beats/min) 94 2nd minute Oxygen Delivery Method Room Air Pulse Ox (%) 96 Pulse Rate (60-100 beats/min) 92 3rd minute Oxygen Delivery Method Room Air Pulse Ox (%) 96 Pulse Rate (60-100 beats/min) 95 4th minute Oxygen Delivery Method Room Air Pulse Ox (%) 95 Pulse Rate (60-100 beats/min) 94 5th minute Oxygen Delivery Method Room Air Pulse Ox (%) 95 Pulse Rate (60-100 beats/min) 94 6th minute Oxygen Delivery Method Room Air Pulse Ox (%) 95 Pulse Rate (60-100 beats/min) 90 Post-test Oxygen Delivery Method Room Air Pulse Ox (%) 97 Pulse Rate (60-100 beats/min) 87 Dyspnea Fran Scale (0-10) 1 Exertion Fran Scale (6-20) 14 Full Laps Walked 17 Partial Lap, Number of Tiles Walked 0 Total Distance Walked (ft) 1003 Interpretation Interpretation: The patient ambulated 1003 feet over the course of 6 minutes beginning on room air without assistive devices. Pretesting oxygen saturation was noted to be 97% on room air. With ambulation, the jerel oxygen saturation was 95%. There was no significant exertional oxygen desaturation. Recommendations Recommendations: There is no indication for the use of supplemental oxygen at this time. 10/19/24 102 Date Varinder Rendon DO CC: Date Dictated: 10/19/24 102 Date Transcribed: 10/19/241028 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: Dr. Varinder Rendon DO Signed Normal [facility] Low Dose CT Lung Screeningon 10-17-[address] Lung Screening [facility] Imaging Services [address] [place] [address] Lung Screening MR#: [id number] Acct: [id number] Name: CHIDI MUSA Rep #: [id number] : 1965 F 59 From: Mode Nicolas MD PCP: Josephine Walter NP-C Status: [facility] Study: Low Dose CT Lung Screening Date of Exam: 10/17 Exam# [id number] Ordering Dr: Varinder Rendon DO [id number] EXAM: CT CHEST, LUNG CANCER SCREENING WITHOUT INTRAVENOUS CONTRAST CLINICAL INDICATION: h/o tobacco dependency TECHNIQUE: Helically acquired images were obtained of the chest without intravenous contrast using low dose (LDCT) lung cancer screening protocol. This CT exam was performed using one or more of the following dose reduction techniques: automated exposure control, adjustment of the mA and/or kV according to patient size, and/or use of iterative reconstruction technique. COMPARISON: No relevant prior studies available. FINDINGS: LUNGS AND PLEURAL SPACES: Paraseptal emphysematous changes of the upper lobes of lungs noted. No pleural effusion or thickening. No pneumothorax. No evidence of a lung mass or nodule. HEART: Surgical changes of coronary artery bypass graft (CABG). No pericardial effusion. Normal heart size. Coronary artery calcification and stents are present. MEDIASTINUM: Normal. No mediastinal or hilar adenopathy. Esophagus is unremarkable. No hiatal hernia. THYROID: Normal. No thyroid nodules or calcification. BONES/JOINTS: No suspicious lytic or blastic abnormality. VASCULATURE: See above. LYMPH NODES: Normal. No enlarged lymph nodes. CT/Low Dose CT Lung Screening IMPRESSION: 1. No evidence of a lung mass or nodule. 2. Paraseptal emphysematous changes of the lung apices. 3. Lung-RADS score: 1S - Additional clinically significant or potentially clinically significant findings are described. Recommend continued annual screening with a low-dose CT (LDCT) in 12 months. Electronically Signed: Mode Nicolas MD at 17:03 EST , CC: NATACHA Walter; Dr. Varinder Rendon DO 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: Signed Normal [facility] Ankle Brachial Indexon 10-14 Ankle Brachial Index [facility] Cardiovascular Services [address] [place] [address] Ankle Brachial Index 10/14/24 1251 MR#: [id number] Acct: [id number] Name: CHIDI MUSA Rep #: [id number] : 1965 59 From: Alejandro Quintana MD Attending Dr: HEIDI Allen Status: REG CLI Ordering Dr: Marlee Araujo Date: 10/14/24 Location: CVS Sex: F C Admitted: Reason For Study: S/P L YEIMY Stent Procedure A bilateral lower extremity continuous wave Doppler with analog waveform analysis and ankle brachial indexes. Left Segmental Pressures Left brachial= 111mmHg. Left posterior tibial artery = 109mmHg. Left dorsalis pedis artery = 117mmHg. Left digit = 66 mmHg. The left dorsalis pedis waveforms are triphasic. The left posterior tibial artery waveforms are triphasic. Right Segmental Pressures Right brachial= 112mmHg. Right posterior tibial artery = 108mmHg. Right dorsalis pedis artery = 121mmHg. Right digit = 71 mmHg. The right dorsalis pedis waveforms are triphasic. The right posterior tibial artery waveforms are triphasic. Indices The right ankle brachial index by the dorsalis pedis is 1.08. The right ankle brachial index by the posterior tibial artery is 0.96. The right digital-brachial index is 0.63. The left ankle brachial index by the dorsalis pedis is 1.04. The left ankle brachial index by the posterior tibial artery is 0.97. The left digital-brachial index is 0.59. VL/Ankle Brachial Index Interpretation Summary Right TASIA 1.08, normal. Doppler/PVR waveforms of the right ankle normal at rest. TBI diminished, pedal.digit disease vs spasm Left TASIA 1.04, normal. Doppler/PVR waveforms of the left ankle normal at rest. TBI diminished, pedal.digit disease vs spasm Ordering Physician: Marlee Araujo Referring Physician: MARLEE ARAUJO Performed By: Romeo Marie RVT and Student 10/14/24 1548 Date Alejandro Quintana MD CC: NATACHA Walter; HEIDI Allen Date Dictated: 10/14/24 1251 Date Transcribed: 10/14/241547 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: Signed Normal [facility] Art Duplex Unilat Lower E xton 10-14-2024 Art Duplex Unilat Lower Ext [facility] Cardiovascular Services [address] [place] [address] [place] Art Duplex Unilat Lower Ext 10/14/24 1305 MR#: [id number] Acct: [id number] Name: CHIDI MUSA Rep #: [id number] : 1965 59 From: Alejandro Quintana MD Attending Dr: HEIDI Allen Status: REG CLI Ordering Dr: Marlee Araujo Date: 10/14/24 Location: CVS Sex: F C Admitted: Reason For Study: S/P L YEIMY Stent Left Velocities Ext. Iliac Artery, dist = 106.7 cm./sec. Common Femoral Artery, mid = 119.0 cm./sec. Supf Femoral Artery, prox = 100.8 cm./sec. Supf Femoral Artery, mid = 80.1 cm./sec. Supf Femoral Artery, dist. = 52.7 cm./sec. Profunda Femoral Artery = 85.3 cm./sec. Popliteal Artery, mid = 53.9 cm./sec. Post. Tibial Artery, prox = 82.1 cm./sec. Post. Tibial Artery, mid = 57.6 cm./sec. Post. Tibial Artery, dist = 94.4 cm./sec. Peroneal Artery, prox = 39.2 cm./sec. Peroneal Artery, mid = 45.3 cm./sec. Peroneal Artery,dist = 35.5 cm./sec. Ant. Tibial Artery, prox = 47.8 cm./sec. Ant. Tibial Artery, mid = 60.0 cm./sec. Ant. Tibial Artery, dist = 78.4 cm./sec. Procedure Exam performed in department. VL/US Art Duplex Unilat Lower Ext Interpretation Summary Left lower extremity arteries patent with normal velocities and no evidence of stenosis Ordering Physician: Marlee Araujo Referring Physician: Josephine Walter NP Performed By: Romeo Marie RVT and Student 10/14/24 1549 Date Alejandro Quintana MD CC: NATACHA Walter; HEIDI Allen Date Dictated: 10/14/24 1305 Date Transcribed: 10/14/24 1549 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: Signed Normal [facility] Immunoglobulin Fransico 5 IMMUNOGLOB E QN 8 IU/mL Normal 6-495 [facility] Comment on above: Result Comment: Perf ormed at: - [facility] [id number] Physical Therapy Manager: Chris Chaparro MD, Phone: [phone] Performed By: #### L 5501.0240, T8200.1600, L100.0100 ####[facility] [address] [place], [address] Allergen Resp. Area 5on 010 5-2025 ALTERNARIA TEN <0.10 Normal Class 0 [facility] Comment on above: Order Comment: Reaso n for Exam: asthma Performed By: #### L 5500.0700, L3200.1600, L100.0100 ####[facility] [address] [place], [address] ISAIAH, WHITE <0.10 Normal Class 0 [facility] Comment on above: Order Comment: Reaso n for Exam: asthma Performed By: #### L 5500.0700, L3200.1600, L100.0100 ####[facility] [address] [place], [address] ASPERGILLUS FUM <0.10 Normal Class 0 [facility] Comment on above: Order Comment: Reaso n for Exam: asthma Performed By: #### L 5500.0700, L3200.1600, L100.0100 ####[facility] [address] [place], [address] BERMUDA GRASS <0.10 Normal Class 0 [facility] Comment on above: Order Comment: Reaso n for Exam: asthma Performed By: #### L 5500.0700, L3200.1600, L100.0100 ####[facility] [address] [place], [address] BIRCH <0.10 Normal Class 0 [facility] Comment on above: Order Comment: Reaso n for Exam: asthma Performed By: #### L 5500.0700, L3200.1600, L100.0100 ####[facility] [address] [place], [address] BLACK WALNUT <0.10 Normal Class 0 [facility] Comment on above: Order Comment: Reaso n for Exam: asthma Performed By: #### L 5500.0700, L3200.1600, L100.0100 ####[facility] [address] [place], [place], [address] CAT HAIR/DANDER <0.10 Normal Class 0 [facility] Comment on above: Order Comment: Reaso n for Exam: asthma Performed By: #### L 5500.0700, L3200.1600, L100.0100 ####[facility] [address] [place], [address] CLADOSPOR HERB <0.10 Normal Class 0 [facility] Comment on above: Order Comment: Reaso n for Exam: asthma Performed By: #### L 5500.0700, L3200.1600, L100.0100 ####[facility] [address] [place], [address] COCKROACH,AMER <0.10 Normal Class 0 [facility] Comment on above: Order Comment: Reaso n for Exam: asthma Performed By: #### L 5500.0700, L3200.1600, L100.0100 ####[facility] [address] [place], [address] COMMENT Comment Normal . [facility] Comment on above: Order Comment: Reaso n for Exam: asthma Result Comment: Kike yoder of Specific IgE Class Description of Class ----- < 0.10 0 Negative 0.10 - 0.31 0/I Equivocal/Low 0.32 - 0.55 I Low 0.56 - 1.40 II Moderate 1.41 - 3.90 III High 3.91 - 19.00 IV Very High 19.01 - 100.00 V Very High >100.00 Very High Performed By: #### L 5500.0700, L3200.1600, L100.0100 ####[facility] [address] [place], [address] COTTONWOOD <0.10 Normal Class 0 [facility] Comment on above: Order Comment: Reaso n for Exam: asthma Performed By: #### L 5500.0700, L3200.1600, L100.0100 ####[facility] [address] [place], [address] D FARINAE MITE <0.10 Normal Class 0 [facility] Comment on above: Order Comment: Reaso n for Exam: asthma Performed By: #### L 5500.0700, L3200.1600, L100.0100 ####[facility] [address] [place], [address] D PTERONYSSINUS <0.10 Normal Class 0 [facility] Comment on above: Order Comment: Reaso n for Exam: asthma Performed By: #### L 5500.0700, L3200.1600, L100.0100 ####[facility] [address] [place], [address] DOG EPITHELIA <0.10 Normal Class 0 [facility] Comment on above: Order Comment: Reaso n for Exam: asthma Performed By: #### L 5500.0700, L3200.1600, L100.0100 ####[facility] [address] [place], [address] ELM,AMER WHITE <0.10 Normal Class 0 [facility] Comment on above: Order Comment: Reaso n for Exam: asthma Performed By: #### L 5500.0700, L3200.1600, L100.0100 ####[facility] [address] [place], [address] IMMUNOGLOB E 9 IU/mL Normal 6-495 [facility] Comment on above: Order Comment: Reaso n for Exam: asthma Performed By: #### L 5500.0700, L3200.1600, L100.0100 ####[facility] [address] [place], [address] MAPLE/BOX ELDER <0.10 Normal Class 0 [facility] Comment on above: Order Comment: Reaso n for Exam: asthma Performed By: #### L 5500.0700, L3200.1600, L100.0100 ####[facility] [address] [place], [address] MOUNTAIN CEDAR <0.10 Normal Class 0 [facility] Comment on above: Order Comment: Reaso n for Exam: asthma Performed By: #### L 5500.0700, L3200.1600, L100.0100 ####[facility] [address] [place], [address] Mouse Urine <0.10 Normal Class 0 [facility] Comment on above: Order Comment: Reaso n for Exam: asthma Result Comment: Perf ormed at: - [facility] [id number] Physical Therapy Manager: Chris Chaparro MD, Phone: [phone] Performed By: #### L 5500.0700, L3200.1600, L100.0100 ####[facility] [address] [place], [address] MULBERRY,WHITE <0.10 Normal Class 0 [facility] Comment on above: Order Comment: Reaso n for Exam: asthma Performed By: #### L 5500.0700, L3200.1600, L100.0100 ####[facility] [address] [place], [address] OAK, WHITE <0.10 Normal Class 0 [facility] Comment on above: Order Comment: Reaso n for Exam: asthma Performed By: #### L 5500.0700, L3200.1600, L100.0100 ####[facility] [address] [place], [address] PECAN <0.10 Normal Class 0 [facility] Comment on above: Order Comment: Reaso n for Exam: asthma Performed By: #### L 5500.0700, L3200.1600, L100.0100 ####[facility] [address] [place], [address] PEN NOTATUM <0.10 Normal Class 0 [facility] Comment on above: Order Comment: Reaso n for Exam: asthma Performed By: #### L 5500.0700, L3200.1600, L100.0100 ####[facility] [address] [place], [address] PIGWEED, ROUGH <0.10 Normal Class 0 [facility] Comment on above: Order Comment: Reaso n for Exam: asthma Performed By: #### L 5500.0700, L3200.1600, L100.0100 ####[facility] [address] [place], [address] RAGWEED SH/COM <0.10 Normal Class 0 [facility] Comment on above: Order Comment: Reaso n for Exam: asthma Performed By: #### L 5500.0700, L3200.1600, L100.0100 ####[facility] [address] [place], [address] NAURUAN THISTLE <0.10 Normal Class 0 [facility] Comment on above: Order Comment: Reaso n for Exam: asthma Performed By: #### L 5500.0700, L3200.1600, L100.0100 ####[facility] [address] [place], [address] SHEEP SORREL <0.10 Normal Class 0 [facility] Comment on above: Order Comment: Reaso n for Exam: asthma Performed By: #### L 5500.0700, L3200.1600, L100.0100 ####[facility] [address] [place], [address] SYCAMORE, AMER <0.10 Normal Class 0 [facility] Comment on above: Order Comment: Reaso n for Exam: asthma Performed By: #### L 5500.0700, L3200.1600, L100.0100 ####[facility] [address] [place], [address] KAYLIE GRASS <0.10 Normal Class 0 [facility] Comment on above: Order Comment: Mariselao n for Exam: asthma Performed By: #### L 5500.0700, L3200.1600, L100.0100 ####[facility] [address] [place], [address] CBC W/Diff, Automatedon ATYPICAL LYMPH 1+ Normal [facility] Comment on above: Performed By: #### L 5500.0700, L3200.1600, L100.0100 ####[facility] [address] [place], [address] PLT EST ADEQUATE Normal ADEQ [facility] Comment on above: Performed By: #### L 5500.0700, L3200.1600, L100.0100 ####[facility] [address] [place], [address] RED CELL MORPH NORM C+C Normal NORM C C [facility] Comment on above: Performed By: #### L 5500.0700, L3200.1600, L100.0100 ####[facility] [address] [place], [address] Pulmonary Visit Reporton Pulmonary Visit Report [facility] [place] [address] [place] [address] OFFICE VISIT Date of Service: 10/01/24 MR#: [id number] Acct: [id number] Name: CHIDI MUSA Rep #: [id number] : 1965 Provider: Dr. Varinder Rendon DO Age/Sex: 59/F [place] [facility] [place]: Signed Assessment and Plan Assessment and Plan (1) Asthma: Status: Suspected Plan: The patient initially presented today for the evaluation of COPD, having previously been under the care of a pulmonary provider in [place] and later by a pulmonary provider in [place] where she was residing until recently. Ironically, the patient has had multiple pulmonary function studies completed over the years, the last of which was done here in July 2024, none of which have ever demonstrated any evidence of COPD. While it is certainly plausible that the patient may have an underlying component of asthma, I do have to consider alternative etiologies such as vocal cord dysfunction as a potential factor for her episodic wheezing. The patient has a normal nitric oxide level at today's office visit. Given that she has been maintained on Advair, Spiriva and as needed albuterol, I did recommend that for now we discontinue her Spiriva. If the patient remains unchanged from a respiratory perspective at her follow-up office visit, I would consider holding her Advair and reassessing her respiratory symptoms. In the interim, I am going to obtain a 6-minute walk test to assess for any exertional hypoxemia and will perform an allergy workup including RAST profile, IgE and CBC with differential. Result: Oral exhaled NO (ppb): 10 Normal: 5-20 ppb (Adult) High Normal/Increased: 20-35 ppb (Adult). Moderately raised exhaled nitric oxide may indicate underlying inflammation, but notes that cold and influenza can raise exhaled nitric oxide in some patients have higher baseline levels than others. High: >35 ppb (Adult). Indicative of ongoing eosinophilic inflammation. Symptomatic patient likely to respond to steroids. Possible causes include: Poor compliance, recent allergen exposure, steroid dose inadequate, and steroid resistance. (2) Nicotine dependence, cigarettes, in remission: Status: Chronic Plan: Ongoing tobacco cessation is strongly recommended. I have determined that the patient is eligible for a low-dose CT scan based on age, absence of signs or symptoms of lung cancer, and total pack years. The patient and I engaged in shared decision making, including the use of one or more decision aids, to include benefits, harms, follow-up diagnostic testing, over diagnosis, false positive rate, and total radiation exposure. The patient understands and feels comfortable with proceeding with testing. (3) AVE (obstructive sleep apnea): Status: Chronic Plan: The patient reported a history of sleep apnea of unknown severity, for which she is no longer compliant with nocturnal PAP therapy due to her underlying anxiety and inability to tolerate positive pressure. Orders: Orders NIOX Today F17.211 - Nicotine dependence, cigarettes, in remission, J45.909 - Unspecified asthma, uncomplicated Low Dose CT Lung Screening Today F17.211 - Nicotine dependence, cigarettes, in remission, J45.909 - Unspecified asthma, uncomplicated Simple Pulmonary Exercise Test 10/15/24 F17.211 - Nicotine dependence, cigarettes, in remission, J45.909 - Unspecified asthma, uncomplicated Immunoglobulin E Today F17.211 - Nicotine dependence, cigarettes, in remission, J45.909 - Unspecified asthma, uncomplicated CBC W/Diff, Automated Today F17.211 - Nicotine dependence, cigarettes, in remission, J45.909 - Unspecified asthma, uncomplicated Allergen Resp. Area 5 Today F17.211 - Nicotine dependence, cigarettes, in remission, J45.909 - Unspecified asthma, uncomplicated HPI HPI Comments Details: The patient is a 59-year-old female who presents to the clinic today in referral for the evaluation of COPD. The patient reported that she was initially diagnosed by a pulmonary provider approximately 8 years ago in [facility]. Following this, the patient resided in [place], prior to relocating to the area. The patient reported to me that while living in [place], that she was being maintained on inhalers for COPD. However, the patient had pulmonary function studies completed in June 2023 which were grossly within normal limits, without any evidence of COPD. For reasons that are not entirely clear, she has been maintained on Advair, Spiriva and as needed albuterol. The patient has an approximate [id number] smoking history, having quit completely in 2023. 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 She has a known history of anxiety and depression. She does currently keep a poodle as a pet in her home environment. The (more content not included)... Normal [facility] CNOVon 09-28-2024 CNOV Office Visit (IVAN ) CHIDI MUSA ([id number]) 1965 F Date Time Provider Department 09/28/24 7:45 AM NEWTON SHINE During your visit today, we recorded the following information about you: Pulse Respiration Blood pressure Weight 70/minute 16/minute 111/65 70.8 kg Height 1.575 m Newton Shine MD 09/30/2024 10:26 AM Signed [facility] Department of Pain Management New Patient Consultation PATIENT: Chidi Musa : 1965 DATE OF SERVICE: 09/28/2024 REFERRING PRACTITIONER: Mayank Sheehan MD PRIMARY CARE PROVIDER: Josephine Walter CNP, SINK MAKER CHIEF COMPLAINT: Patient presents with: Neck Pain: Neck, arms HISTORY OF PRESENT ILLNESS: Chidi Musa is a 59 year old year old female who presents to the clinic today with chief complaint(s) as above. Onset/Duration: 5 weeks Injury: ACDF unknown level at [employer] in 1989 Fell from truck and landed on tail bone in Jul 2024 Location/radiation/re ferral: Bacjk of the neck and radiates to upper back, bilateral shoulders, arm pit and arm and hands Lower back radiates along the back -radiates to the toes But neck pain is worse than low back pain. Description: The pain is described as aching, burning, and stabbing. Pain Level: Now: 10 /10 Best: 8 /10 Worst: 10 /10 Numbness/Tingling (location): In the upper extremity Weakness (location): Significant weakness in both upper extremities Aggravating Factors: sleeping Alleviating Factors: medications and heat. Smoking weed The pain does interfere with the patient's sleep at night and the patient reports 2 hours of uninterrupted sleep per night. Interference with: physical activity and sleeping Patient entered comments: Fever/Chills: [] Yes [x] No Recent significant weight change: [] Yes [x] No Bladder/Bowel incontinence: [] Yes [x] No Sudden significant weakness: [x] Yes [] No Using arms- significant weakness Is this visit directly related to a work or auto injury? [] Yes [x] No If so, pre-Injury Symptoms: n/a Past Treatments: Past Treatment: PT or Home exercise (for this condition): [x] Yes [] No Chiropractic (for this condition): [] Yes [x] No In the past 12 months, She completed 0 physical therapy sessions. Pain Medications: - Opioids: Tramadol 50 mg twice daily - NSAIDs: N - Anti-Depressants: N - Anti-Convulsants: gabapentin 600 mg tid- not helping much - Others: Desryl 100 mg - Lidocaine patch:Yes- - Muscle relaxants:Flexeril 10mg/ methocarbamol 500 OARRS report: Reviewed: The patient's OARRS report was reviewed and is consistent with the reported medication use. The patient has not seen other pain providers. Past pain treatment has included PT Past pain medications have included Tylenol Gabapentin Opioids: Tramadol She had relief from the following interventions: None She had relief from the following medications:Opioids: Tramadol Lidocaine patch Work/Functional Status Able to ambulate and perform ADL's without devices: [] Yes [x] No Review of Systems: GENERAL: No weight loss, malaise or fevers. HEENT: Negative for frequent or significant headaches. NECK: Negative for lumps, goiter, pain and significant neck swelling. RESPIRATORY: Negative for cough, wheezing or shortness of breath. Exsmoker CARDIOVASCULAR: Negative for chest pain, leg swelling or palpitations. PVD- Stents CABG Stents CAD GI: Negative for abdominal discomfort, blood in stools or black stools or change in bowel habits. HPL DM- Type-2. MUSCULOSKELETAL: Negative for joint pain or swelling, Positive for back pain or muscle pain. SKIN: Negative for lesions, rash, and itching. PSYCH: Positive for for sleep disturbance, mood disorder and recent psychosocial stressors. HEMATOLOGY/LYMPHOLOGY : Negative for prolonged bleeding, bruising easily or swollen nodes. NEURO: No history of syncope, paralysis, seizures or tremors. All other reviewed and negative other than HPI. 14 point ROS; pertinent positives listed above, the rest are reviewed and confirmed to be negative. === HISTORY: ALLERGIES No Known Allergies History reviewed. No pertinent past medical history. History reviewed. No pertinent surgical history. History reviewed. No pertinent family history. Social History Tobacco Use Smoking status: Former Current packs/day: 1.00 Average packs/day: 1 pack/day for 38.0 years (38.0 ttl pk-yrs) Types: Cigarettes Smokeless tobacco: Never Substance Use Topics Alcohol use: Yes Drug use: Not Currently Current Outpatient Medications Medication Sig ARIPiprazole (ABILIFY) 5 mg tablet benzonatate (TESSALON PERLE) 100 mg capsule Take 100 mg by mouth. cariprazine (VRAYLAR) 1.5 mg capsule 1.5 mg. cyclobenzaprine (FLEXERIL) 10 mg tablet 1 tablet at bedtime as needed (more content not included)... Normal [facility] MR Cervical spine WO michelle ton 09-21-2024 Radiology Study observation (narrative) [facility] IMPRESSION: Degenerative changes are most pronounced at C5-C6 resulting in mild to moderate canal stenosis as well as moderate right and mild left foraminal stenosis. Faint patchy T2 STIR hyperintense signal abnormality is present in the right lateral spinal cord at the level of the C5-C6 disc space, compatible with myelomalacia. No residual canal or foraminal stenosis at C6-C7 following surgical decompression. Anatomic Variant: None. Assume 7 cervical vertebrae with counting from the craniocervical junction. 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: PSCB Transcribe Date/Time: Sep 21 2024 11:49A Dictated by : RENETTA URIBE MD This examination was interpreted and the report reviewed and electronically signed by: RENETTA URIBE MD on Sep 21 2024 11:54AM [facility] DIVISION OF RADIOLOGY * * *Final Report* * * DATE OF EXAM: Sep 21 2024 11:25AM [facility] 0297 - MRI CERVICAL SPINE WO IVCON / PROCEDURE REASON: Spinal stenosis of cervical region * * * * Physician Interpretation * * * * EXAMINATION: MRI CERVICAL SPINE WO IVCON CLINICAL HISTORY: Spinal stenosis of cervical region TECHNIQUE: Routine cervical spine MR protocol without gadolinium. MQ: [id number]_[id number] COMPARISON: Cervical spine radiographs 09/08/2024 RESULT: Counting reference: Craniocervical junction. Anatomic Variants: None. Localizer images: No additional findings. Alignment: Mild degenerative anterolisthesis of C5 on C6 and C7 on T1. Craniocervical junction: Craniocervical junction is normal. Cord: Faint patchy T2 STIR hyperintense signal abnormality is present in the right lateral spinal cord at the level of the C5-C6 disc space. Bone marrow signal/fracture: Chronic postsurgical changes of C6-C7 ACDF with plate and screw fixation. No evidence of pathologic marrow infiltration. No evidence of prior fracture. Cervical soft tissues: The paraspinal soft tissues are within normal limits. C2-C3: Mild degenerative disc and facet disease without substantial canal or foraminal stenosis. C3-C4: Mild degenerative disc and facet disease without substantial canal or foraminal stenosis. C4-C5: Mild degenerative disc and facet disease without substantial canal or foraminal stenosis. C5-C6: Moderate degenerative disc disease with irregular posterior disc osteophyte complex, mild bilateral uncovertebral spurring, and minimal degenerative facet disease resulting in mild to moderate canal stenosis as well as mild left and moderate right foraminal stenosis. C6-C7: No substantial residual canal or foraminal stenosis following surgical decompression. C7-T1: Mild degenerative disc disease without substantial canal or foraminal stenosis. DIVISION OF RADIOLOGY Provider, [facility] - 09/21/2024 * * *Final Report* * * DATE OF EXAM: Sep 21 2024 11:25AM [facility] 0297 - MRI CERVICAL SPINE WO IVCON / PROCEDURE REASON: Spinal stenosis of cervical region * * * * Physician Interpretation * * * * EXAMINATION: MRI CERVICAL SPINE WO IVCON CLINICAL HISTORY: Spinal stenosis of cervical region TECHNIQUE: Routine cervical spine MR protocol without gadolinium. MQ: [id number]_[id number] COMPARISON: Cervical spine radiographs 09/08/2024 RESULT: Counting reference: Craniocervical junction. Anatomic Variants: None. Localizer images: No additional findings. Alignment: Mild degenerative anterolisthesis of C5 on C6 and C7 on T1. Craniocervical junction: Craniocervical junction is normal. Cord: Faint patchy T2 STIR hyperintense signal abnormality is present in the right lateral spinal cord at the level of the C5-C6 disc space. Bone marrow signal/fracture: Chronic postsurgical changes of C6-C7 ACDF with plate and screw fixation. No evidence of pathologic marrow infiltration. No evidence of prior fracture. Cervical soft tissues: The paraspinal soft tissues are within normal limits. C2-C3: Mild degenerative disc and facet disease without substantial canal or foraminal stenosis. C3-C4: Mild degenerative disc and facet disease without substantial canal or foraminal stenosis. C4-C5: Mild degenerative disc and facet disease without substantial canal or foraminal stenosis. C5-C6: Moderate degenerative disc disease with irregular posterior disc osteophyte complex, mild bilateral uncovertebral spurring, and minimal degenerative facet disease resulting in mild to moderate canal stenosis as well as mild left and moderate right foraminal stenosis. C6-C7: No substantial residual canal or foraminal stenosis following surgical decompression. C7-T1: Mild degenerative disc disease without substantial canal or foraminal stenosis. IMPRESSION IMPRESSION: Degenerative changes are most pronounced at C5-C6 resulting in mild to moderate canal stenosis as well as moderate right and mild left foraminal stenosis. Faint patchy T2 STIR hyperintense signal abnormality is present in the right lateral spinal cord at the level of the C5-C6 disc space, compatible with myelomalacia. No residual canal or foraminal stenosis at C6-C7 following surgical decompression. Anatomic Variant: None. Assume 7 cervical vertebrae with counting from the craniocervical junction. 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: PILLO Transcribe Date/Time: Sep 21 2024 11:49A Dictated by : RENETTA URIBE MD This examination was interpreted and the report reviewed and electronically signed by: RENETTA URIBE MD on Sep 21 2024 11:54AM EST [facility] MR Cervical spine WO contras tOrdered By: [facility] Provider on 09-21-2024 [facility] MRI CERVICAL SPINE WO IVCONo n 09-21-2024 MRI CERVICAL SPINE WO IVCON * * *Final Report* * * DATE OF EXAM: Sep 21 2024 11:25AM [facility] 0297 - MRI CERVICAL SPINE WO IVCON / PROCEDURE REASON: Spinal stenosis of cervical region * * * * Physician Interpretation * * * * EXAMINATION: MRI CERVICAL SPINE WO IVCON CLINICAL HISTORY: Spinal stenosis of cervical region TECHNIQUE: Routine cervical spine MR protocol without gadolinium. MQ: [id number]_[id number] COMPARISON: Cervical spine radiographs 09/08/2024 RESULT: Counting reference: Craniocervical junction. Anatomic Variants: None. Localizer images: No additional findings. Alignment: Mild degenerative anterolisthesis of C5 on C6 and C7 on T1. Craniocervical junction: Craniocervical junction is normal. Cord: Faint patchy T2 STIR hyperintense signal abnormality is present in the right lateral spinal cord at the level of the C5-C6 disc space. Bone marrow signal/fracture: Chronic postsurgical changes of C6-C7 ACDF with plate and screw fixation. No evidence of pathologic marrow infiltration. No evidence of prior fracture. Cervical soft tissues: The paraspinal soft tissues are within normal limits. C2-C3: Mild degenerative disc and facet disease without substantial canal or foraminal stenosis. C3-C4: Mild degenerative disc and facet disease without substantial canal or foraminal stenosis. C4-C5: Mild degenerative disc and facet disease without substantial canal or foraminal stenosis. C5-C6: Moderate degenerative disc disease with irregular posterior disc osteophyte complex, mild bilateral uncovertebral spurring, and minimal degenerative facet disease resulting in mild to moderate canal stenosis as well as mild left and moderate right foraminal stenosis. C6-C7: No substantial residual canal or foraminal stenosis following surgical decompression. C7-T1: Mild degenerative disc disease without substantial canal or foraminal stenosis. IMPRESSION: Degenerative changes are most pronounced at C5-C6 resulting in mild to moderate canal stenosis as well as moderate right and mild left foraminal stenosis. Faint patchy T2 STIR hyperintense signal abnormality is present in the right lateral spinal cord at the level of the C5-C6 disc space, compatible with myelomalacia. No residual canal or foraminal stenosis at C6-C7 following surgical decompression. Anatomic Variant: None. Assume 7 cervical vertebrae with counting from the craniocervical junction. 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: PSCB Transcribe Date/Time: Sep 21 2024 11:49A Dictated by : RENETTA URIBE MD This examination was interpreted and the report reviewed and electronically signed by: RENETTA URIBE MD on Sep 21 2024 11:54AM EST [id number] Normal [facility] Surgery Visit Reporton 09-21 Surgery Visit Report [facility] [address] [place] [address]. [address] [place] [address] OFFICE VISIT Date of Service: 09/21/24 MR#: [id number] Acct: [id number] Name: EVACHIDI BASIL Rep #: [id number] 1 : 1965 Provider: Dr. Eric young MD Age/Sex: 59/F Location: [facility] Status: Signed Intake Vital Signs 09/02/24 09:19 09/21/24 08:50 Height 5 ft 4 in 5 ft 2 in Weight: 146 lb 153 lb BMI 28.0 BP 152/96 H Blood Pressure Location Rt brachial Position Sitting Respiration 18 Pulse 92 Pulse Source Monitor Temp 97.2 F L Temp Source Temporal Pulse Oximetry (%) 97 Oxygen Delivery Method room air Intake Visit Reasons: VENTRAL HERNIA Chief Complaint: ventral hernia Is patient in pain?: Yes (neck pain I fell off a pick-up truck ) Allergies No Known Allergies Allergy (Verified 09/21/24 08:52) Medications ???Medication ???Instructions ???Recorded ???Confirmed ???Type mometasone 220 mcg/actuation(60 220 mcg inhalation BID 07/03/14 09/16/24 History doses) breath activated powder inhaler (Asmanex Twisthaler) sitagliptin phosphate 50 1 ea PO BID 07/03/14 09/16/24 History mg-metformin 500 mg tablet (Janumet) atorvastatin 40 mg tablet 40 mg PO DAILY 05/12/24 09/16/24 History gabapentin 600 mg tablet 600 mg PO DAILY 05/12/24 09/16/24 History methocarbamol 500 mg tablet 500 mg PO QHS 05/12/24 09/16/24 History metoprolol succinate 25 mg capsule 25 mg PO DAILY 05/12/24 09/16/24 History sprinkle, ext. release 24 hr pantoprazole 40 mg tablet,delayed 40 mg PO DAILY 05/12/24 09/16/24 History release tiotropium bromide 2.5 2 puff inhalation DAILY 05/12/24 09/16/24 History mcg/actuation mist for inhalation (Spiriva Respimat) albuterol sulfate 90 mcg/actuation 1 inh inhalation ONCE 05/20/24 09/16/24 History aerosol inhaler clopidogrel 75 mg tablet 75 mg PO QDAY 05/20/24 09/16/24 History empagliflozin 10 mg tablet 10 mg PO DAILY 05/20/24 09/16/24 History (Jardiance) lidocaine 5 % topical patch 1 patch topical DAILY 05/20/24 09/16/24 History tramadol 50 mg tablet 50 mg PO DAILY 05/20/24 09/16/24 History aripiprazole 5 mg tablet 5 mg PO QDAY 08/11/24 09/16/24 History escitalopram oxalate 20 mg tablet 20 mg PO QDAY 08/11/24 09/16/24 History hydroxyzine HCl 25 mg tablet 25 mg PO TID 08/11/24 09/16/24 History aspirin 81 mg tablet,delayed 81 mg PO QDAY 09/16/24 09/16/24 History release omega 1-lao-izq-fish oil 900 cap PO 09/16/24 09/16/24 History mg-1,400 mg capsule,delayed release (Fish Oil) [facility] Medical History Ventral hernia Coronary artery disease CALVIN (generalized anxiety disorder) MDD (major depressive disorder) AVE (obstructive sleep apnea) Lumbar foraminal stenosis Hyperlipidemia Peripheral neuropathy Type 2 diabetes mellitus COPD (chronic obstructive pulmonary disease) Atherosclerosis of [place] arteries of extremities with rest pain, left leg Aortoiliac occlusive disease Surgical History S/P insertion of iliac artery stent ( 05/2022) History of carotid endarterectomy History of oophorectomy History of cardiac catheterization History of spinal surgery History of colonoscopy Presence of stent in coronary artery Hx of CABG History of hysterectomy History of cholecystectomy Family History Mother Heart disease Father Cancer Social History Smoking Status: Former smoker Tobacco: How many years used: 38 how long ago did patient quit smokin months HPI HPI HPI: The patient is a 59-year-old female who is being seen today for a ventral hernia. She states that she first noticed this probably a year ago. This could perhaps have been present a bit longer. It sounds as though this was found incidentally on a CT scan performed at an outside facility while she lived in [place]. She presents today for evaluation of this hernia. She states that it will sometimes bulge out and be approximately the size of a adult hand/fist. She denies any significant pain per se. She denies any obstructive symptoms. It is important to note that she has a pretty significant cardiovascular history. She recently had a peripheral vascular stent placed by Dr. Quintana less than 3 weeks ago. She is on chronic aspirin and Plavix. ROS General General: Yes weight change and fatigue; No appetite, colon cancer, breast cancer or weakness HEENT HEENT: No difficulty swallowing, eye injury, eye surgery, swollen glands or hoarseness Endo Endocrine: Yes diabetes mellitus; No thyroid disease, thyroid cancer, Hair loss, heat intole (more content not included)... Normal [facility] MR/Ovidio 09-16-2024 MR/BMS.BRYANT [facility] [address] [place] [address] OFFICE VISIT Date of Service: 09/16/24 MR#: [id number] Acct: [id number] Name: CHIDI MUSA Rep #: [id number] : 1965 Provider: HEIDI Allen Age/Sex: 59/F Location: [facility] Status: Signed Intake Vital Signs 05/20/24 09:52 09/02/24 09:19 09/16/24 08:24 Height 5 ft 4 in 5 ft 4 in Weight: 153 lb BP 118/75 Blood Pressure Location Lt brachial Position Sitting Respiration 16 Pulse 73 Pulse Source Monitor Temp 98 F Temp Source Temporal Pulse Oximetry (%) 98 Oxygen Delivery Method room air Intake Visit Reasons: Post Angiogram FU Chief Complaint: f/u Is patient in pain?: No Allergies No Known Allergies Allergy (Verified 09/16/24 08:25) Medications ???Medication ???Instructions ???Recorded ???Confirmed ???Type mometasone 220 mcg/actuation(60 220 mcg inhalation BID 07/03/14 09/16/24 History doses) breath activated powder inhaler (Asmanex Twisthaler) sitagliptin phosphate 50 1 ea PO BID 07/03/14 09/16/24 History mg-metformin 500 mg tablet (Janumet) atorvastatin 40 mg tablet 40 mg PO DAILY 05/12/24 09/16/24 History gabapentin 600 mg tablet 600 mg PO DAILY 05/12/24 09/16/24 History methocarbamol 500 mg tablet 500 mg PO QHS 05/12/24 09/16/24 History metoprolol succinate 25 mg capsule 25 mg PO DAILY 05/12/24 09/16/24 History sprinkle, ext. release 24 hr pantoprazole 40 mg tablet,delayed 40 mg PO DAILY 05/12/24 09/16/24 History release tiotropium bromide 2.5 2 puff inhalation DAILY 05/12/24 09/16/24 History mcg/actuation mist for inhalation (Spiriva Respimat) albuterol sulfate 90 mcg/actuation 1 inh inhalation ONCE 05/20/24 09/16/24 History aerosol inhaler clopidogrel 75 mg tablet 75 mg PO QDAY 05/20/24 09/16/24 History empagliflozin 10 mg tablet 10 mg PO DAILY 05/20/24 09/16/24 History (Jardiance) lidocaine 5 % topical patch 1 patch topical DAILY 05/20/24 09/16/24 History tramadol 50 mg tablet 50 mg PO DAILY 05/20/24 09/16/24 History aripiprazole 5 mg tablet 5 mg PO QDAY 08/11/24 09/16/24 History escitalopram oxalate 20 mg tablet 20 mg PO QDAY 08/11/24 09/16/24 History hydroxyzine HCl 25 mg tablet 25 mg PO TID 08/11/24 09/16/24 History aspirin 81 mg tablet,delayed 81 mg PO QDAY 09/16/24 09/16/24 History release omega 0-dsk-yeg-fish oil 900 cap PO 09/16/24 09/16/24 History mg-1,400 mg capsule,delayed release (Fish Oil) Is last menstrual period known: No Post menopausal: Yes Patient : No Have you fallen in the past year?: Yes PFSH Medical History Aortoiliac occlusive disease Atherosclerosis of [place] arteries of extremities with rest pain, left leg COPD (chronic obstructive pulmonary disease) Coronary artery disease CALVIN (generalized anxiety disorder) Hyperlipidemia Lumbar foraminal stenosis MDD (major depressive disorder) AVE (obstructive sleep apnea) Peripheral neuropathy Type 2 diabetes mellitus Surgical History S/P insertion of iliac artery stent ( 05/2022) History of carotid endarterectomy History of oophorectomy History of cardiac catheterization History of spinal surgery History of colonoscopy Presence of stent in coronary artery Hx of CABG History of hysterectomy History of cholecystectomy Family History Mother Heart disease Father Cancer Social History Smoking Status: Former smoker Tobacco: How many years used: 38 how long ago did patient quit smokin months HPI HPI HPI: CHIDI MUSA, is a 59 F who presents to the office today for follow-up s/p aortogram with angioplasty and stent of the L YEIMY on 09/02/24. This was performed due to either recurrent or previously missed stenosis just proximal and inferior to her prior YEIMY stent which threatened the ongoing patency of this prior stent which had been placed when patient was living in [place]. The procedure was without complication, she reports she tolerated it well. Her initial stent was placed in [place] due to atypical leg pain/paresthesias, she did not have any improvement in her symptoms after this stent was placed. Again, she has not noticed any difference in her LLE shooting pain/paresthesias since this most recent procedure. She does have significant DDD with radiculopathy for which she is following with orthopedics/spine surgery. She does report she'd had some aching discomfort in her groin and this seems to be better since the procedure. She also tells me today that she has a hernia which is concerning to her and she would like this to be ev (more content not included)... Normal [facility] 09-11-[address] [facility] Telephone ([facility]) CHIDI MUSA ([id number]) 1965 F Date Time Provider Department 09/11/24 MAYANK SHEEHAN [facility] During your visit today, we recorded the following information about you: Rachael Pace 09/11/2024 8:49 AM Signed Spoke to the patient to see if she could garbage pick up man her records from [facility] as I have tried to get them and they are not coming through the fax machine properly. The patient said she will go pick them up and bring them to us when she has her next appointment. Allergies As of Date: 09/11/2024 (No Known Allergies) Date Reviewed: 09/08/2024 Reviewed by: Hina Torres MA - Fully Assessed Reason for Visit: Patient Update [1234] Prescriptions as of 09/11/2024 - aspirin 81 mg cap Take by mouth. - albuterol HFA (PROVENTIL HFA, VENTOLIN HFA) 90 mcg/actuation inhaler Inhale 1-2 Puffs as instructed every 6 hours as needed for wheezing/shortness of breath. - atorvastatin (LIPITOR) 40 mg tablet Take 40 mg by mouth once daily. - clopidogrel (PLAVIX) 75 mg tablet Take 1 tablet by mouth every afternoon. - escitalopram oxalate (LEXAPRO) 10 mg tablet Take 1 tablet by mouth every afternoon. - ezetimibe (ZETIA) 10 mg tablet Take 1 tablet by mouth every afternoon. - fluticasone-salmetero l (ADVAIR, WIXELA) 250-50 mcg/dose inhaler Inhale 1 Inhalation as instructed two times a day. - gabapentin (NEURONTIN) 300 mg capsule Take 600 mg by mouth three times a day. - metoprolol succinate ER (TOPROL XL) 25 mg 24 hr tablet Take 25 mg by mouth once daily. - pantoprazole DR (PROTONIX) 40 mg tablet Take 1 tablet by mouth every afternoon. - traMADol (ULTRAM) 50 mg tablet Take 50 mg by mouth every 6 hours as needed for pain. - SITagliptin-metFORMIN (JANUMET XR) 50-1,000 mg TM24 Take 2 tablets by mouth once daily. - tiotropium (SPIRIVA) 18 mcg inhalation capsule Inhale 18 mcg as instructed once daily. Problem List As Of Date: 09/11/2024 (None) Encounter Status:Closed by RACHAEL PACE on 09/11/24 [facility] ([facility] ) CHIDI MUSA ([id number]) 1965 F Date Time Provider Department 09/08/24 9:00 AM MAYANK SHEEHAN [facility] During your visit today, we recorded the following information about you: Weight Height 64.4 kg 1.575 m Hina Torres MA 09/08/2024 9:16 AM Signed 59 y/o female presents to office with concerns of low back pain that has been present of 3+ years. She reports that she was receiving ELKIN that was working. Her last injection was [place]/2022 [place] She hasn't completed recent PT. She reports that the pain is causing difficulty walking. She additionally adds that a few months ago she dropped a mirror on her head and has had neck pain as well. She admits she didn't inform us of this when the appointment was being made. Xrays of lumbar spine completed 09/04/2024. Mayank Sheehan MD 09/08/2024 9:16 AM Signed Mayank Sheehan MD [facility] Orthopaedic Surgery - Orthopaedic Spine Surgeon [address], [address], [place] [address] [address], [address], [place] [address] Phone: [phone] FAX: [phone] Spine Surgery Outpatient Note Service Date: 09/08/2024 Referring Provider: Romeo Stafford [address] [place] [address] Dr [facility] [address] Chief Complaint: Lumbar back pain with radiation to the bilateral buttocks lateral thighs History of Present Illness Chidi Musa is a 59 year old female with medical history as below presenting alone as a new patient today. Chidi Musa presents with primary complaint of lumbar back pain with radiation to the bilateral buttocks lateral thighs. Patient reports that symptoms have been present for the past 3 years. She was previously seeing a spine surgeon in [place] who recommended multilevel decompression and fusion for symptoms of neurogenic claudication. However, surgeon reportedly moved and patient has not had surgery. She endorses pain in lumbar spine that radiates into the buttocks and lateral thighs and is worse with activity. Pain is relieved with sitting down. Additionally endorses generalized feeling weakness in the bilateral upper extremities as well as numbness and paresthesias in the bilateral hands. Has history of ACDF (uncertain of level) after having a near fall or head in 2017. Surgery was performed at [facility]. Additionally endorses difficulty with dexterity and balance that has been progressively worsening. No history of lumbar surgery. Summary of Symptoms Pain Location: Cervical and lumbar spine Radiation of Pain: Bilateral upper extremities, bilateral buttocks lateral thighs Weakness: Bilateral extremities Dexterity Issues: Yes Imbalance: Yes Falls: Yes Bowel/Bladder Dysfunction: No Prior Conservative Treatment Physical Therapy: Yes (>1 year ago) Medications: Gabapentin, tramadol Pain Management: No (previously effective, but no relief with most recent injection) Injections: Yes Surgery: ACDF (uncertain of surgeon name or level) Other: No The following portions of the patient's history were reviewed and updated as appropriate: allergies, current medications, past family history, past medical history, past social history, past surgical history and problem list. There is no problem list on file for this patient. History reviewed. No pertinent past medical history. History reviewed. No pertinent surgical history. History reviewed. No pertinent family history. Social History Tobacco Use Smoking status: Former Current packs/day: 1.00 Average packs/day: 1 pack/day for 38.0 years (38.0 ttl pk-yrs) Types: Cigarettes Smokeless tobacco: Never Substance Use Topics Alcohol use: Yes Drug use: Not Currently ALLERGIES No Known Allergies Medications: aspirin 81 mg cap Take by mouth. albuterol HFA (PROVENTIL HFA, VENTOLIN HFA) 90 mcg/actuation inhaler Inhale 1-2 Puffs as instructed every 6 hours as needed for wheezing/shortness of breath. atorvastatin (LIPITOR) 40 mg tablet Take 40 mg by mouth once daily. clopidogrel (PLAVIX) 75 mg tablet Take 1 tablet by mouth every afternoon. escitalopram oxalate (LEXAPRO) 10 mg tablet Take 1 tablet by mouth every afternoon. ezetimibe (ZETIA) 10 mg tablet Take 1 tablet by mouth every afternoon. fluticasone-salmetero l (ADVAIR, WIXELA) 250-50 mcg/dose inhaler Inhale 1 Inhalation as instructed two times a day. gabapentin (NEURONTIN) 300 mg capsule Take 600 mg by mouth three times a day. metoprolol succinate ER (TOPROL XL) 25 mg 24 hr tablet Take 25 mg by mouth once daily. pantoprazole DR (PROTONIX) 40 mg tablet Take 1 tablet by mouth every afternoon. traMADol (ULTRAM) 50 mg tablet Take 50 mg by mouth every 6 hours as needed for pain. SITagliptin-metFORMIN (JANUMET XR) 50-1,000 mg TM24 Take 2 tablets by mouth once daily. tiotropium (SPIRIVA) 18 mcg inhalation capsule Inhale 18 mcg as ins (more content not included)... Normal [facility] XR CERVICAL 4V AP/LAT/FLX/EX Ton 09-08-2024 XR CERVICAL 4V AP/LAT/FLX/EXT * * *Final Report* * * DATE OF EXAM: Sep 08 2024 10:03AM [id number] - XR CERVICAL 4V AP/LAT/FLX/EXT / PROCEDURE REASON: Cervical myelopathy (HCC) * * * * Physician Interpretation * * * * CERVICAL SPINE 5 VIEWS: Clinical Statement: Cervical myelopathy. Comparison: None. FINDINGS: There is mild straightening of the cervical lordosis. Normal alignment. There are postsurgical changes of anterior fusion at C6-C7 with intact plate and screw fixation hardware. There is mild anterior spurring at C5-C6. The prevertebral soft tissue contour is maintained. No instability on lateral flexion and extension views. No fracture or other bony abnormality. IMPRESSION: Status post ACDF at C6-C7 with solid fusion and intact hardware. Mild degenerative disc disease at C5-C6. Mild straightening of the cervical lordosis which may relate to positioning or muscle spasm. 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: PSCB Transcribe Date/Time: Sep 10 2024 1:59P Dictated by : ANGELA MORALES MD This examination was interpreted and the report reviewed and electronically signed by: ANGELA MORALES MD on Sep 10 2024 2:01PM EST [id number] N [facility] XR LUMBAR 4V AP/LAT/ FLEX/EX Ton 09-04-2024 XR LUMBAR 4V AP/LAT/ FLEX/EXT * * *Final Report* * * DATE OF EXAM: Sep 04 2024 8:19AM [id number] - XR LUMBAR 4V AP/LAT/ FLEX/EXT / PROCEDURE REASON: Low back pain, unspecified back pain laterality, unspecified chronicity, unspeci * * * * Physician Interpretation * * * * EXAMINATION: XR LUMBAR 4V AP/LAT/ FLEX/EXT CLINICAL HISTORY: Chronic low back pain. Technique: XR LUMBAR 4V AP/LAT/ FLEX/EXT Comparison: CT dated 08/23/2024. RESULT: Vertebral body heights are maintained. Approximately 3 mm retrolisthesis of L1 on L2 in neutral upright position, decreasing to 2 mm on flexion view (1 mm dynamic subluxation). No spondylolisthesis or dynamic subluxation at any other level. Sagittal spinal alignment is otherwise anatomic. Mild multilevel degenerative disc disease and facet arthropathy throughout the lumbar spine. LEFT iliac stent. No acute soft tissue abnormality. IMPRESSION: See result. 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: PSCB Transcribe Date/Time: Sep 08 2024 1:33A Dictated by : LETITIA PLATT MD This examination was interpreted and the report reviewed and electronically signed by: LETITIA PLATT MD on Sep 08 2024 1:41AM EST [id number] Normal [facility] CHIDI MUSA ([id number]) 1965 F Date Time Provider Department 09/03/24 MAYANK SHEEHAN [facility] During your visit today, we recorded the following information about you: Rachael Pace 09/03/2024 8:32 AM Signed Spoke to the patient to let her know that Dr. Sheehan would like for her to have xrays done prior to her appointment on 09/08/24. I let her know that if these are not completed we will have to reschedule her appointment. She understood and said she will have them done at [facility] prior to her appointment. Allergies As of Date: 09/03/2024 (No Known Allergies) Date Reviewed: 08/23/2024 Reviewed by: Angela Awad, REN - Fully Assessed Reason for Visit: Appointment [186] Prescriptions as of 09/03/2024 - naproxen (NAPROSYN) 500 mg tablet Take 1 tablet by mouth two times a day as needed for pain for up to 14 days. - albuterol HFA (PROVENTIL HFA, VENTOLIN HFA) 90 mcg/actuation inhaler Inhale 1-2 Puffs as instructed every 6 hours as needed for wheezing/shortness of breath. - atorvastatin (LIPITOR) 40 mg tablet Take 40 mg by mouth once daily. - clopidogrel (PLAVIX) 75 mg tablet Take 1 tablet by mouth every afternoon. - escitalopram oxalate (LEXAPRO) 10 mg tablet Take 1 tablet by mouth every afternoon. - ezetimibe (ZETIA) 10 mg tablet Take 1 tablet by mouth every afternoon. - fluticasone-salmetero l (ADVAIR, WIXELA) 250-50 mcg/dose inhaler Inhale 1 Inhalation as instructed two times a day. - gabapentin (NEURONTIN) 300 mg capsule Take 600 mg by mouth three times a day. - metoprolol succinate ER (TOPROL XL) 25 mg 24 hr tablet Take 25 mg by mouth once daily. - pantoprazole DR (PROTONIX) 40 mg tablet Take 1 tablet by mouth every afternoon. - traMADol (ULTRAM) 50 mg tablet Take 50 mg by mouth every 6 hours as needed for pain. - SITagliptin-metFORMIN (JANUMET XR) 50-1,000 mg TM24 Take 2 tablets by mouth once daily. - tiotropium (SPIRIVA) 18 mcg inhalation capsule Inhale 18 mcg as instructed once daily. Problem List As Of Date: 09/03/2024 (None) Encounter Status:Closed by RACHAEL PACE on 09/03/24 [facility] Basic Metabolic Profile (BMP )on 09-02-2024 BUN/CRE 22.8 RATIO High 10-20 [facility] Comment on above: Performed By: #### L 100.0100, L500.2500 ####[facility] [address] [place], [address] CA,Total 9.4 mg/dL Normal 8.5-10.1 [facility] Comment on above: Performed By: #### L 100.0100, L500.2500 ####[facility] [address] [place], [address] Chloride [Moles/Vol] 108 mmol/L High 98-107 [facility] Comment on above: Performed By: #### L 100.0100, L500.2500 ####[facility] [address] [place], [address] CO2 [Moles/Vol] 26.0 mmol/L Normal 21.0-32.0 [facility] Comment on above: Performed By: #### L 100.0100, L500.2500 ####[facility] [address] [place], [address] Creatinine [Mass/Vol] 0.75 mg/dL Normal 0.55-1.02 [facility] Comment on above: Result Comment: The validity of the calculated GFR GFRAA in patients over 70 years has not been determined. Clinical correlation is essential. Performed By: #### L 100.0100, L500.2500 ####[facility] [address] [place], [address] ECRCL 74.69 ml/min Normal [facility] Comment on above: Performed By: #### L 100.0100, L500.2500 ####[facility] [address] [place], [address] EST GFR - AA 102 mL/min Normal >60 [facility] Comment on above: Result Comment: Afri can Scottish GFR Calc Performed By: #### L 100.0100, L500.2500 ####[facility] [address] [place], [address] GAP 5 Normal 5-15 [facility] Comment on above: Performed By: #### L 100.0100, L500.2500 ####[facility] [address] [place], [address] GFR/1.73 sq M.predicted among non-blacks MDRD (S/P/Bld) [Vol rate/Area] 84 mL/min/{1.73_m2} Normal >60 [facility] Comment on above: Result Comment: Non- GFR Calc Performed By: #### L 100.0100, L500.2500 ####[facility] [address] [place], [address] Glucose [Mass/Vol] 176 mg/dL High 74-106 [facility] Comment on above: Result Comment: Fast ing Glucose result greater than or equal to 126 mg/dL suggests DIABETES MELLITUS per A.D.A. criteria. Performed By: #### L 100.0100, L500.2500 ####[facility] [address] [place], [address] Potassium [Moles/Vol] 3.9 mmol/L Normal 3.5-5.1 [facility] Comment on above: Performed By: #### L 100.0100, L500.2500 ####[facility] [address] [place], [address] Sodium [Moles/Vol] 139 mmol/L Normal 136-145 [facility] Comment on above: Performed By: #### L 100.0100, L500.2500 ####[facility] [address] [place], [address] Urea nitrogen [Mass/Vol] 17 mg/dL Normal 7-18 [facility] Comment on above: Performed By: #### L 100.0100, L500.2500 ####[facility] [address] [place], [address] CBC W/Diff, Automatedon 12-0 -2023 Absolute Lymph 2.58 X10 3/uL Normal 0.83-4.51 [facility] Comment on above: Performed By: #### L 100.0100, L500.2500 ####[facility] [address] [place], [address] Absolute Neut 5.6 X10 3/uL Normal 2.0-7.7 [facility] Comment on above: Performed By: #### L 100.0100, L500.2500 ####[facility] [address] [place], [address] Basophils/100 WBC (Bld) 1.0 % Normal 0-1 [facility] Comment on above: Performed By: #### L 100.0100, L500.2500 ####[facility] [address] [place], [address] Eosinophils/100 WBC (Bld) 0.8 % Normal 0-5 [facility] Comment on above: Performed By: #### L 100.0100, L500.2500 ####[facility] [address] [place], [address] Erythrocyte distribution width (RBC) [Ratio] 12.4 % Normal 11.6-14.6 [facility] Comment on above: Performed By: #### L 100.0100, L500.2500 ####[facility] [address] [place], [address] Hematocrit (Bld) [Volume fraction] 50.8 % High 37-47 [facility] Comment on above: Performed By: #### L 100.0100, L500.2500 ####[facility] [address] [place], [address] Hemoglobin (Bld) [Mass/Vol] 16.7 g/dL High 12.0-15.0 [facility] Comment on above: Performed By: #### L 100.0100, L500.2500 ####[facility] [address] [place], [address] IG% 0.800 Normal 0.0-0.9 [facility] Comment on above: Result Comment: IG% - Immature Granulocytes (promyelocytes, myelocytes and metamyelocytes) > 1% indicates that a LEFT SHIFT is Present. Performed By: #### L 100.0100, L500.2500 ####[facility] [address] [place], [address] Lymphocytes/100 WBC (Bld) 28.1 % Normal 19-41 [facility] Comment on above: Performed By: #### L 100.0100, L500.2500 ####[facility] [address] [place], [address] MCH (RBC) [Entitic mass] 30.2 pg Normal 27.0-32.0 [facility] Comment on above: Performed By: #### L 100.0100, L500.2500 ####[facility] [address] [place], [address] MCHC (RBC) [Mass/Vol] 32.9 g/dL Normal 32-36 [facility] Comment on above: Performed By: #### L 100.0100, L500.2500 ####[facility] [address] [place], [address] MCV (RBC) [Entitic vol] 91.9 fL Normal 81-99 [facility] Comment on above: Performed By: #### L 100.0100, L500.2500 ####[facility] [address] [place], [address] Monocytes/100 WBC (Bld) 8.5 % Normal 0-10 [facility] Comment on above: Performed By: #### L 100.0100, L500.2500 ####[facility] [address] [place], [address] Neutrophils/100 WBC (Bld) 60.8 % Normal 47-70 [facility] Comment on above: Performed By: #### L 100.0100, L500.2500 ####[facility] [address] [place], [address] Nucleated RBC (Bld) [#/Vol] 0 10*3/uL Normal 0-5 [facility] Comment on above: Performed By: #### L 100.0100, L500.2500 ####[facility] [address] [place], [address] Platelet mean volume (Bld) [Entitic vol] 9.6 fL Normal 6.2-12.0 [facility] Comment on above: Performed By: #### L 100.0100, L500.2500 ####[facility] [address] [place], [address] Platelets (Bld) [#/Vol] 225 10*3/uL Normal 150-450 [facility] Comment on above: Performed By: #### L 100.0100, L500.2500 ####[facility] [address] [place], [address] RBC (Bld) [#/Vol] 5.53 10*6/uL High 4.2-5.4 [facility] Comment on above: Performed By: #### L 100.0100, L500.2500 ####[facility] [address] [place], [address] RDW SD 42.0 fl Normal 35.1-43.9 [facility] Comment on above: Performed By: #### L 100.0100, L500.2500 ####[facility] [address] [place], [address] WBC (Bld) [#/Vol] 9.2 10*3/uL Normal 4.4-11.0 [facility] Comment on above: Performed By: #### L 100.0100, L500.2500 ####[facility] [address] [place], [address] Operative Reporton 4 Operative Report [facility] Medical Records Department [address] [place] [address] Operative Report 09/02/24 1642 MR#: [id number] Acct: [id number] Name: CHIDI MUSA Rep #: [id number] : 1965 59 From: Alejandro Quintana MD PCP: Josepihne Walter NP-Jessica [place] [facility] [place] Location: [facility] Operative Report (Standard) Operative Information Surgery/Procedure Performed: Aortogram and pelvic angiogram Intravascular ultrasound aorta, left common iliac, left external iliac arteries Angioplasty and stent of the left common iliac artery Surgeon: Alejandro Quintana Date of Procedure: 09/02/24 Procedure Start Time: 11:00 Procedure Stop Time: 12:00 Pre-Operative Diagnosis: Atherosclerosis with claudication of left lower extremity with stenosis above prior iliac stent, at risk of stent Post-Operative Diagnosis: Same Select all DRAINS/GRAFTS/IMPLANT S that apply: Implanted device Implanted device details: Bard Lifestream 9x58 balloon expandable covered stent Type of Anesthesia: Local and Sedation,Conscious Estimated Blood Loss: 3 Specimen collected: No Description of surgery: HPI: Patient is a 59-year-old female who previously underwent a left common iliac artery stenting for lifestyle limiting claudication in 2021 at an outside facility. She had minimal improvement in her symptoms and subsequent surveillance vascular studies have suggested worsening left lower extremity perfusion. She had a CT angiography which revealed greater than 60% stenosis of the common iliac artery just proximal to the previously placed stent. Is unclear whether this was missed at the original intervention or if this has been progression of disease adjacent to the stent. She presents now for angiography with possible iliac artery intervention. Description of procedure: Upon obtaining form consent and verification correct patient procedure site patient was taken to the [facility] where she was positioned prepped and draped in usual sterile fashion. Timeouts performed consultation ministered Versed and fentanyl. Skin overlying the left common femoral artery was anesthetized 1% lidocaine the vessel accessed under ultrasound guidance with micropuncture needle wire. This was then exchanged for micropuncture sheath through which injection iliofemoral angiogram was performed revealing satisfactory positioning with no extravasation or dissection. This revealed stenosis at the inferior aspect of the prior stent as well as superior to it. There is also poor stent wall apposition of the distal aspect. Through the micropuncture sheath a Amir[employer] wire was advanced traversing the prior stent and into the abdominal aorta. The micropuncture sheath was exchanged for a short 5 Emirati sheath and through this an Omni Flush catheter advanced into the abdominal aorta and digital traction aortogram pelvic angiogram was performed. This revealed that there was no significant atherosclerosis at the origin of the contralateral iliac artery and the lesion appeared to be just below the left common iliac artery origin. So there is potentially room to perform intervention without the need for kissing iliac stents. An 018 wire was then advanced through the flush catheter which was then withdrawn and intravascular ultrasound probe advanced and recorded pullback performed of the aorta, left common iliac artery, left external iliac artery. This confirmed severe stenosis greater than 80% just superior to the previously placed stent as well as a mobile dissection flap inferior to the stent. This also revealed that the stent was fairly undersized compared to the diomede vessel. Finally this confirmed that we were able to treat the culprit lesion without need to extend to the aorta. The patient was then heparinized allowed to circulate for 3 minutes. The intravascular ultrasound probe was withdrawn and the catheter readvanced, the 018 wire exchanged for the [employer] wire and the 5 Emirati sheath exchanged for 7 Emirati Brite tip sheath. A marker catheter was then advanced in the position and magnified subtraction angiography performed of the iliac artery. This confirmed need for approximately 6 cm length stent. A Bard Lifestream 9 x 58 balloon expandable covered stent was then brought in field prep for manufactures instructions. This was then advanced into position with satisfactory coverage of the proximal lesion and inferior to the aortic bifurcation. The stent also covered the dissection inferior to the prior stent and landed cephalad to the internal iliac artery origin. Balloon was then inflated to nominal and then deflated withdrawn. Repeat angiography revealed satisfactory stent positioning with no residual stenosis either proximal or distal and no extravasation or dissection. The pre-existing dissection was covered in its entirety. There was poor stent to wall apposition at the distal aspect so a 10 mm x 2 angioplasty balloon was (more content not included)... Normal [facility] CT LUMBAR SPINE WO IVCONon 1 10-23-2023 CT LUMBAR SPINE WO IVCON * * *Final Report* * * DATE OF EXAM: Aug 23 2024 5:52PM [facility] 0508 - CT LUMBAR SPINE WO IVCON / PROCEDURE REASON: Low back pain, fall * * * * Physician Interpretation * * * * EXAMINATION: CT LUMBAR SPINE WO IVCON, CT SACRUM/COCCYX WO CONTRAST CLINICAL HISTORY: Low back pain, fall (accession [id number]), Trauma (accession [id number]) Technique: CT of the lumbar spine and CT of the sacrum/coccyx were performed without IV contrast and multiplanar reconstructions were generated. Exam Date: 08/23/2024 5:52 PM Comparison: None Contrast: None. CT Radiation dose: Integrated Dose-length product (DLP) for this visit = 949.19 mGy*cm CT Dose Reduction Employed: Automated exposure control(AEC) and iterative recon RESULT: Lumbar spine: There are 5 lumbar type vertebral bodies. Normal lumbar lordosis is maintained. Vertebral body heights are maintained. There is mild multilevel intervertebral disc height loss. Multilevel facet hypertrophy is present. There is mild spinal canal stenosis at the L2-L3 level with mild bilateral neural foraminal narrowing. There is mild spinal canal stenosis at the L3-L4 level with moderate left and mild right neural foraminal narrowing. There is mild spinal canal stenosis at the L4-L5 level with moderate bilateral neural foraminal narrowing. There is moderate bilateral neural foraminal narrowing at the L5-S1 level. Calcified atherosclerosis is present and there is a vascular stent in the left external iliac artery. Sacrum and coccyx: Demineralization diminishes evaluation. Degenerative changes are present in the sacroiliac joints. There is no fracture or dislocation. IMPRESSION: No traumatic subluxation or fracture in the lumbar spine. No appreciable fracture in the sacrum or coccyx. 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: PILLO Transcribe Date/Time: Aug 23 2024 7:45P Dictated by : PETRONA SALINAS MD This examination was interpreted and the report reviewed and electronically signed by: PETRONA SALINAS MD on Aug 23 2024 7:55PM EST [id number] N [facility] CT SACRUM/COCCYX WO CONTRAST on 08-23-2024 CT SACRUM/COCCYX WO CONTRAST * * *Final Report* * * DATE OF EXAM: Aug 23 2024 5:52PM [facility] [address] - CT SACRUM/COCCYX WO CONTRAST / PROCEDURE REASON: Trauma * * * * Physician Interpretation * * * * EXAMINATION: CT LUMBAR SPINE WO IVCON, CT SACRUM/COCCYX WO CONTRAST CLINICAL HISTORY: Low back pain, fall (accession [id number]), Trauma (accession [id number]) Technique: CT of the lumbar spine and CT of the sacrum/coccyx were performed without IV contrast and multiplanar reconstructions were generated. Exam Date: 08/23/2024 5:52 PM Comparison: None Contrast: None. CT Radiation dose: Integrated Dose-length product (DLP) for this visit = 949.19 mGy*cm CT Dose Reduction Employed: Automated exposure control(AEC) and iterative recon RESULT: Lumbar spine: There are 5 lumbar type vertebral bodies. Normal lumbar lordosis is maintained. Vertebral body heights are maintained. There is mild multilevel intervertebral disc height loss. Multilevel facet hypertrophy is present. There is mild spinal canal stenosis at the L2-L3 level with mild bilateral neural foraminal narrowing. There is mild spinal canal stenosis at the L3-L4 level with moderate left and mild right neural foraminal narrowing. There is mild spinal canal stenosis at the L4-L5 level with moderate bilateral neural foraminal narrowing. There is moderate bilateral neural foraminal narrowing at the L5-S1 level. Calcified atherosclerosis is present and there is a vascular stent in the left external iliac artery. Sacrum and coccyx: Demineralization diminishes evaluation. Degenerative changes are present in the sacroiliac joints. There is no fracture or dislocation. IMPRESSION: No traumatic subluxation or fracture in the lumbar spine. No appreciable fracture in the sacrum or coccyx. 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: [facility] Transcribe Date/Time: Aug 23 2024 7:45P Dictated by : PETRONA SALINAS MD This examination was interpreted and the report reviewed and electronically signed by: PETRONA SALINAS MD on Aug 23 2024 7:55PM EST [id number] N [facility] ED NOTEon 08-23-2024 ED NOTE HNO ID: [id number] Author: DEMETRA WINSTON RN Service: Emergency Medicine Author Type: Registered Nurse Type: ED Notes Filed: 08/23/2024 22:20 Note Text: Pt ambulated in turner without issue. Dr Stafford notified. [facility] ED NOTE HNO ID: [id number] Author: DEMETRA WINSTON, REN Service: Emergency Medicine Author Type: Registered Nurse Type: ED Notes Filed: 08/23/2024 19:53 Note Text: States she fell from pickup truck while trying to unload the truck and fell backwards. Denies head injury, LOC, but currently on plavix. States the pain is on her sacrum and worsening with ambulation and palpation. Pt concerned about staying due to her puppy at home. [facility] ED NOTE HNO ID: [id number] Author: TAMMI FLORES Tech Service: ? Author Type: Disk Recordist Type: ED Notes Filed: 08/23/2024 18:49 Note Text: Bed: 04-ED Expected date: Expected time: Means of arrival: Comments: room 16 [facility] ED NOTE HNO ID: [id number] Author: RAFFI BEASLEY RN Service: Emergency Medicine Author Type: Registered Nurse Type: ED Notes Filed: 08/23/2024 17:49 Note Text: Trauma downgraded to level 3 per Trauma Activation Criteria flowsheet. As a result, ELKIN was downgraded to a 3. [facility] ED NOTE HNO ID: [id number] Author: ANGELA AWAD RN Service: ? Author Type: Registered Nurse Type: ED Notes Filed: 08/23/2024 17:24 Note Text: Trauma activated [facility] ED PROV NOTEon 08-23-2024 ED PROV NOTE HNO ID: [id number] Author: ROMEO STAFFORD MD Service: ? Author Type: Physician Type: ED Provider Notes Filed: 08/24/2024 00:04 Note Text: ED Provider Note Patient Name: Chidi Musa : 1965 SERVICE DATE: 08/23/24 History Patient presents with: Fall: Fell off pickup, tailbone pain HPI Chidi Musa is a 59 year old female with a pertinent PMHx of CAD, COPD, anxiety, hyperlipidemia. Chidi Musa presents with a chief complaint of back pain. States that earlier today she fell backwards off of a pickup truck. She landed on her tailbone. She is having increased pain there. She has been able to ambulate since this happened. She denies any other injuries or pain anywhere else. She states that she has some pins and needle sensation in her feet but denies any numbness or weakness. She denies any saddle anesthesia or urinary retention/incontinenc e. No past medical history on file. No past surgical history on file. No family history on file. Social History Tobacco Use Smoking status: Former Current packs/day: 1.00 Average packs/day: 1 pack/day for 38.0 years (38.0 ttl pk-yrs) Types: Cigarettes Smokeless tobacco: Never Substance and Sexual Activity Alcohol use: Not on file Drug use: Not on file Sexual activity: Not on file ALLERGIES No Known Allergies Review of Systems Physical Exam Vitals [08/23/24 1713] BP Pulse Temp Temp src Resp SpO2 Weight Height 154/72 73 36.7 ?C (98 ?F) Oral 20 -- 64.4 kg (142 lb) 1.575 m (5' 2) Physical Exam Vitals and nursing note reviewed. Constitutional: Appearance: Normal appearance. HENT: Head: Normocephalic and atraumatic. Eyes: Extraocular Movements: Extraocular movements intact. Cardiovascular: Rate and Rhythm: Normal rate. Pulmonary: Effort: Pulmonary effort is normal. Abdominal: Palpations: Abdomen is soft. Musculoskeletal: General: Normal range of motion. Skin: General: Skin is warm and dry. Neurological: Mental Status: She is alert. Mental status is at baseline. Cranial Nerves: No cranial nerve deficit. Sensory: No sensory deficit. Motor: No weakness. Coordination: Coordination normal. Gait: Gait normal. Diagnostic Testing ED Labs Ordered and Reviewed - No data to display Procedures ED Course / Clinical Impression ED Course as of 08/24/24 0000 Others' Documentation Sun Aug 23, 2024 1822 Patient complaining of progressive foot numbness. Will transfer to comprehensive bed. [EP] 1826 Pulses intact. Reflexes appear to be intact in lower extremities. Complaining of worsening paresthesia than my initial evaluation [EP] ED Course User Index [EP] Laura Shipley PA-C Clinical Impressions as of 08/24/24 0000 Acute low back pain without sciatica, unspecified back pain laterality MDM / Disposition / Plan Chidi Musa is a 59 year old female who presented to the ED complaining of tailbone pain following a fall. Their chart was reviewed. The nursing note was reviewed. Vital signs were reviewed and were stable. On physical exam, she had tenderness over the sacrum. She had no weakness or sensory deficits. CTs of her lumbar spine and sacrum were done from triage. These resulted with no acute fracture or malalignment. She was given Toradol, Dilaudid, Robaxin, Zofran, and a Lidoderm patch. On re-evaluation, she was feeling improved. She was able to ambulate with a stable gait. She states that she follows with a spine surgeon but recently moved and is requesting a new surgeon. She states that she does have a history of bulging disks and at 1 point was planning for surgery. She was given information for our spine surgeons here and was told to follow-up with them as well as her primary care doctor. She was agreeable with this plan. She was provided with prescriptions for Robaxin, Lidoderm, naproxen. She was discharged home in stable condition with appropriate return precautions. Differential Diagnoses - Sacral pain is more likely for the following reason(s): suggested by HANDP - Spinal fracture is less likely for the following reason(s): no evidence on imaging - Spinal cord compression is less likely for the following reason(s): HANDP not suggestive and no evidence on imaging Management Radiology Reports CT LUMBAR SPINE WO IVCON Final Result IMPRESSION: No traumatic subluxation or fracture in the lumbar spine. No appreciable fracture in the sacrum or coccyx. 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: [facility] Transcribe Date/Time: Aug 23 2024 7:45P Dictated by : PETRONA SALINAS MD This examination was interpreted and the report reviewed and electronically signed by: PETRONA SALINAS MD on Aug 23 2024 7:55PM EST CT SACRUM/COCCYX WO IVCON Final Result IMPRESSION: No traumatic subluxation or fracture in the lumbar spine. No appreciable fracture in the sacrum or coccyx. 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: [facility] Transcribe Date/Time: Aug 23 2024 7:45P Dictated by : PETRONA MILLS (more content not included)... Normal [facility] ED Triage Noteon 08-23-2024 ED Triage Note HNO ID: [id number] Author: NORI CHRISTIAN PA-C Service: ? Author Type: Physician Manufacturing Helper Type: ED Triage Notes Filed: 08/23/2024 17:26 Note Text: ED TRIAGE PROVIDER NOTE Patient Name: Chidi Musa Service Date: 08/23/24 BRIEF HPI: This is a 59 year old female who presents to the ED with: Patient comes in for evaluation of sacrococcygeal pain and low back pain after fall of a pickup truck. No other trauma no other injuries no other complaints associate with this. She has no ride for home BRIEF EXAM: Lumbar sacral pain INITIAL WORKUP AND DECISION MAKING: Orders Placed This Encounter CT LUMBAR SPINE WO IVCON CT SACRUM/COCCYX WO IVCON keTORolac 30 mg injection (Toradol) SIGNATURE: Nori Christian PA-C Normal [facility] .Auto Diffon 07-22-2024 Basophil, Absolute 0.1 10 3/mcL Normal 0.0-0.2 [facility] Comment on above: Performed By: #### T SH, GFR, CMP, A1C, ANEU, VIDH, CBC, LIPID, FT4, ADIFF #### [address] [address] Basophils/100 WBC (Bld) 0.9 % Normal 0.0-2.5 [facility] Comment on above: Performed By: #### T SH, GFR, CMP, A1C, ANEU, VIDH, CBC, LIPID, FT4, ADIFF #### [address] [address] Eosinophil, Absolute 0.1 10 3/mcL Normal 0.0-0.7 [facility] Comment on above: Performed By: #### T SH, GFR, CMP, A1C, ANEU, VIDH, CBC, LIPID, FT4, ADIFF #### [address] [address] Eosinophils/100 WBC (Bld) 0.9 % Normal 0.0-7.0 [facility] Comment on above: Performed By: #### T SH, GFR, CMP, A1C, ANEU, VIDH, CBC, LIPID, FT4, ADIFF #### [address] [address] Lymphocyte, Absolute 3.6 10 3/mcL Normal 0.9-4.3 [facility] Comment on above: Performed By: #### T SH, GFR, CMP, A1C, ANEU, VIDH, CBC, LIPID, FT4, ADIFF #### [address] [address] Lymphocytes/100 WBC (Bld) 29.7 % Normal 20.0-40.0 [facility] Comment on above: Performed By: #### T SH, GFR, CMP, A1C, ANEU, VIDH, CBC, LIPID, FT4, ADIFF #### [address] [address] Monocyte, Absolute 0.7 10 3/mcL Normal 0.1-1.4 [facility] Comment on above: Performed By: #### T SH, GFR, CMP, A1C, ANEU, VIDH, CBC, LIPID, FT4, ADIFF #### [address] [address] Monocytes/100 WBC (Bld) 5.8 % Normal 2.0-13.0 [facility] Comment on above: Performed By: #### T SH, GFR, CMP, A1C, ANEU, VIDH, CBC, LIPID, FT4, ADIFF #### [place] [address] [place], [place] [address] Neutrophils/100 WBC (Bld) 62.7 % Normal 50.0-75.0 [facility] Comment on above: Performed By: #### T SH, GFR, CMP, A1C, ANEU, VIDH, CBC, LIPID, FT4, ADIFF #### [address] [address] .GFRon 07-22-2024 GFR 107 ml/min/1.73sqm Normal [facility] Comment on above: Result Comment: GFR Population mean for , Non- Americans Ages 20-29 = 116 mL/min/1.73 sq.m. Ages 30-39 = 107 mL/min/1.73 sq.m. Ages 40-49 = 99 mL/min/1.73 sq.m. Ages 50-59 = 93 mL/min/1.73 sq.m. Ages 60-69 = 85 mL/min/1.73 sq.m. Ages 70+ = 75 mL/min/1.73 sq.m. Chronic Kidney Disease: Less than 60 mL/min/1.73 square meters End Stage Renal Disease: Less than 15 mL/min/1.73 square meters Performed By: #### T SH, GFR, CMP, A1C, ANEU, VIDH, CBC, LIPID, FT4, ADIFF #### [address] [address] GFR Non- 88 ml/min/1.73sqm Normal [facility] Comment on above: Result Comment: GFR Population mean for , Non- Americans Ages 20-29 = 116 mL/min/1.73 sq.m. Ages 30-39 = 107 mL/min/1.73 sq.m. Ages 40-49 = 99 mL/min/1.73 sq.m. Ages 50-59 = 93 mL/min/1.73 sq.m. Ages 60-69 = 85 mL/min/1.73 sq.m. Ages 70+ = 75 mL/min/1.73 sq.m. Chronic Kidney Disease: Less than 60 mL/min/1.73 square meters End Stage Renal Disease: Less than 15 mL/min/1.73 square meters Performed By: #### T SH, GFR, CMP, A1C, ANEU, VIDH, CBC, LIPID, FT4, ADIFF #### [address] [address] .NEUABSon 07-22-2024 Neutrophil, Absolute 7.5 10 3/mcL Normal 2.3-8.1 [facility] Comment on above: Performed By: #### T SH, GFR, CMP, A1C, ANEU, VIDH, CBC, LIPID, FT4, ADIFF #### [address] [address] AMYon 07-22-2024 Amylase [Catalytic activity/Vol] 40 U/L Normal 25-115 [facility] Comment on above: Performed By: #### T SH, GFR, CMP, A1C, ANEU, VIDH, CBC, LIPID, FT4, ADIFF #### [address] [address] CBCon 07-22-2024 Erythrocyte distribution width (RBC) [Ratio] 13.7 % Normal 11.5-15.5 [facility] Comment on above: Performed By: #### T SH, GFR, CMP, A1C, ANEU, VIDH, CBC, LIPID, FT4, ADIFF #### [address] [address] Hematocrit (Bld) [Volume fraction] 48.0 % High 34.0-46.0 [facility] Comment on above: Performed By: #### T SH, GFR, CMP, A1C, ANEU, VIDH, CBC, LIPID, FT4, ADIFF #### [place] [address] Hgb 16.0 G/dL Normal 12.0-16.0 [facility] Comment on above: Performed By: #### T SH, GFR, CMP, A1C, ANEU, VIDH, CBC, LIPID, FT4, ADIFF #### [place] [address] MCH (RBC) [Entitic mass] 30.6 pg Normal 27.0-33.0 [facility] Comment on above: Performed By: #### T SH, GFR, CMP, A1C, ANEU, VIDH, CBC, LIPID, FT4, ADIFF #### [place] [address] MCHC 33.3 G/dL Normal 32.0-36.0 [facility] Comment on above: Performed By: #### T SH, GFR, CMP, A1C, ANEU, VIDH, CBC, LIPID, FT4, ADIFF #### [place] [address] MCV (RBC) [Entitic vol] 92.2 fL Normal 80.0-99.0 [facility] Comment on above: Performed By: #### T SH, GFR, CMP, A1C, ANEU, VIDH, CBC, LIPID, FT4, ADIFF #### [place] [address] Platelet 214 10 3/mcL Normal 150-450 [facility] Comment on above: Performed By: #### T SH, GFR, CMP, A1C, ANEU, VIDH, CBC, LIPID, FT4, ADIFF #### [place] [address] Platelet mean volume (Bld) [Entitic vol] 8.4 fL Normal 6.6-10.5 [facility] Comment on above: Performed By: #### T SH, GFR, CMP, A1C, ANEU, VIDH, CBC, LIPID, FT4, ADIFF #### [address] [address] RBC 5.21 10 6/mcL Normal 4.10-5.30 [facility] Comment on above: Performed By: #### T SH, GFR, CMP, A1C, ANEU, VIDH, CBC, LIPID, FT4, ADIFF #### [address] [address] WBC 12.0 10 3/mcL High 4.5-10.8 [facility] Comment on above: Performed By: #### T SH, GFR, CMP, A1C, ANEU, VIDH, CBC, LIPID, FT4, ADIFF #### [place] [address] CDIFPCRon 07-22-2024 Clostridium difficile PCR Negative Normal Negative [facility] Comment on above: Performed By: #### T SH, GFR, CMP, A1C, ANEU, VIDH, CBC, LIPID, FT4, ADIFF #### [address] [address] Clostridium difficile PCR Int Normal [facility] Comment on above: Result Comment: No t cdB gene DNA detected. Negative test results may occur from improper collection, handling or storage of specimen, technical error, or extremely low levels of target below the limit of detection of the assay. See Below Performed By: #### T SH, GFR, CMP, A1C, ANEU, VIDH, CBC, LIPID, FT4, ADIFF #### [address] [address] CMPon 07-22-2024 Albumin Level 4.1 G/dL Normal 3.4-4.8 [facility] Comment on above: Performed By: #### T SH, GFR, CMP, A1C, ANEU, VIDH, CBC, LIPID, FT4, ADIFF #### [address] [address] Albumin/Globulin [Mass ratio] 1.5 {ratio} Normal 1.1-2.5 [facility] Comment on above: Performed By: #### T SH, GFR, CMP, A1C, ANEU, VIDH, CBC, LIPID, FT4, ADIFF #### [address] [address] ALP [Catalytic activity/Vol] 69 U/L Normal 40-135 [facility] Comment on above: Performed By: #### T SH, GFR, CMP, A1C, ANEU, VIDH, CBC, LIPID, FT4, ADIFF #### [address] [address] ALT [Catalytic activity/Vol] 29 U/L Normal 14-59 [facility] Comment on above: Performed By: #### T SH, GFR, CMP, A1C, ANEU, VIDH, CBC, LIPID, FT4, ADIFF #### [address] [address] AST [Catalytic activity/Vol] 13 U/L Normal 10-40 [facility] Comment on above: Performed By: #### T SH, GFR, CMP, A1C, ANEU, VIDH, CBC, LIPID, FT4, ADIFF #### [address] [address] Bili Total 1.2 mg/dL High 0.2-1.0 [facility] Comment on above: Result Comment: Use of this assay is not recommended for patients undergoing treatment with eltrombopag due to the potential for falsely elevated results. Performed By: #### T SH, GFR, CMP, A1C, ANEU, VIDH, CBC, LIPID, FT4, ADIFF #### [address] [address] BUN/Creatinine Ratio 16 ratio Normal 7-27 [facility] Comment on above: Performed By: #### T SH, GFR, CMP, A1C, ANEU, VIDH, CBC, LIPID, FT4, ADIFF #### [address] [address] Calcium [Mass/Vol] 9.6 mg/dL Normal 8.4-10.2 [facility] Comment on above: Performed By: #### T SH, GFR, CMP, A1C, ANEU, VIDH, CBC, LIPID, FT4, ADIFF #### [address] [address] Chloride [Moles/Vol] 104 mmol/L Normal 98-107 [facility] Comment on above: Performed By: #### T SH, GFR, CMP, A1C, ANEU, VIDH, CBC, LIPID, FT4, ADIFF #### [address] [address] CO2 [Moles/Vol] 27 mmol/L Normal 23-31 [facility] Comment on above: Performed By: #### T SH, GFR, CMP, A1C, ANEU, VIDH, CBC, LIPID, FT4, ADIFF #### [place] [address] Creatinine [Mass/Vol] 0.68 mg/dL Normal 0.55-1.02 [facility] Comment on above: Result Comment: Test ing performed on Siemens Dimension EXL analyzer using a modified kinetic Rena technique. Performed By: #### T SH, GFR, CMP, A1C, ANEU, VIDH, CBC, LIPID, FT4, ADIFF #### [address] [address] Electrolyte Balance 9.0 mEq/L Normal 4.0-15.[address] [facility] Comment on above: Performed By: #### T SH, GFR, CMP, A1C, ANEU, VIDH, CBC, LIPID, FT4, ADIFF #### [place] [id number] Globulin 2.7 G/dL Normal [facility] Comment on above: Performed By: #### T SH, GFR, CMP, A1C, ANEU, VIDH, CBC, LIPID, FT4, ADIFF #### [address] [address] Glucose [Mass/Vol] 150 mg/dL High 80-115 [facility] Comment on above: Performed By: #### T SH, GFR, CMP, A1C, ANEU, VIDH, CBC, LIPID, FT4, ADIFF #### [address] [address] Potassium [Moles/Vol] 4.1 mmol/L Normal 3.5-5.1 [facility] Comment on above: Performed By: #### T SH, GFR, CMP, A1C, ANEU, VIDH, CBC, LIPID, FT4, ADIFF #### [place] [place], [place] [address] Sodium [Moles/Vol] 140 mmol/L Normal 136-145 [facility] Comment on above: Performed By: #### T SH, GFR, CMP, A1C, ANEU, VIDH, CBC, LIPID, FT4, ADIFF #### [place] [place], [place] [address] Total Protein 6.8 G/dL Normal 6.4-8.2 [facility] Comment on above: Performed By: #### T SH, GFR, CMP, A1C, ANEU, VIDH, CBC, LIPID, FT4, ADIFF #### [id number] [place], [place] [address] Urea nitrogen [Mass/Vol] 11 mg/dL Normal 7-18 [facility] Comment on above: Performed By: #### T SH, GFR, CMP, A1C, ANEU, VIDH, CBC, LIPID, FT4, ADIFF #### [address] [address] LABORATORYOrdered By: Dannielle Finley on 07-22-2024 Adenovirus 40+41 DNA JASON+non-probe Ql (Stl) Not Detected *NA* (07/22/24 1:25 PM) Invalid Interpretation Code Not Detected AH Auto Microbiology GL SS Astrovirus subtypes 1-8 RNA JASON+non-probe Ql (Stl) Not Detected *NA* (07/22/24 1:25 PM) Invalid Interpretation Code Not Detected AH Auto Microbiology GL SS C. cayetanensis DNA JASON+non-probe Ql (Stl) Not Detected *NA* (07/22/24 1:25 PM) Invalid Interpretation Code Not Detected AH Auto Microbiology GL SS C. coli+jejuni+upsalien sis DNA JASON+non-probe Ql (Stl) Not Detected *NA* (07/22/24 1:25 PM) Invalid Interpretation Code Not Detected AH Auto Microbiology GL SS Cryptosporidium sp DNA JASON+non-probe Ql (Stl) Not Detected *NA* (07/22/24 1:25 PM) Invalid Interpretation Code Not Detected AH Auto Microbiology GL SS E. coli enteroaggregative Tomy plasmid aggR+aatA genes JASON+non-probe Ql (Stl) Not Detected *NA* (07/22/24 1:25 PM) Invalid Interpretation Code Not Detected AH Auto Microbiology GL SS E. coli enteropathogenic eae gene JASON+non-probe Ql (Stl) Not Detected *NA* (07/22/24 1:25 PM) Invalid Interpretation Code Not Detected AH Auto Microbiology GL SS E. coli enterotoxigenic ltA+st1a+st1b genes JASON+non-probe Ql (Stl) Not Detected *NA* (07/22/24 1:25 PM) Invalid Interpretation Code Not Detected AH Auto Microbiology GL SS E. coli O157 DNA JASON+non-probe Ql (Stl) Not Applicable (07/22/24 1:25 PM) Normal Not Detected AH Auto Microbiology GL SS E. coli stx1+stx2 genes JASON+non-probe Ql (Stl) Not Detected *NA* (07/22/24 1:25 PM) Invalid Interpretation Code Not Detected AH Auto Microbiology GL SS E. histolytica DNA JASON+non-probe Ql (Stl) Not Detected *NA* (07/22/24 1:25 PM) Invalid Interpretation Code Not Detected AH Auto Microbiology GL SS G. lamblia DNA JASON+non-probe Ql (Stl) Not Detected *NA* (07/22/24 1:25 PM) Invalid Interpretation Code Not Detected AH Auto Microbiology GL SS Norovirus genogroup I+II RNA JASON+non-probe Ql (Stl) See below Invalid Interpretation Code Not Detected AH Auto Microbiology GL SS Comment on above: Result Comment: T he body repairer of the Stool GI PCR panel has identified an increase of potential false positive results for Norovirus. A Norovirus positive result should correlate with the patient s clinical history and presentation, along with travel history and disease severity. Plesiomonas shigelloides Not Detected *NA* (07/22/24 1:25 PM) Invalid Interpretation Code Not Detected AH Auto Microbiology GL SS Rotavirus A RNA JASON+non-probe Ql (Stl) Not Detected *NA* (07/22/24 1:25 PM) Invalid Interpretation Code Not Detected AH Auto Microbiology GL SS S. enterica+bongori DNA JASON+non-probe Ql (Stl) Not Detected *NA* (07/22/24 1:25 PM) Invalid Interpretation Code Not Detected AH Auto Microbiology GL SS Sapovirus genogroups I+II+IV+V RNA JASON+non-probe Ql (Stl) Not Detected *NA* (07/22/24 1:25 PM) Invalid Interpretation Code Not Detected AH Auto Microbiology GL SS Shigella species+EIEC invasion plasmid antigen H ipaH gene JASON+non-probe Ql (Stl) Not Detected *NA* (07/22/24 1:25 PM) Invalid Interpretation Code Not Detected AH Auto Microbiology GL SS Stool GI Comment See Comment 2 (07/22/24 1:25 PM) Normal AH Auto Microbiology GL SS Comment on above: Interpretive Data: V irus, bacteria, and parasite nucleic acid may persist in vivo independently of organism viability. Negative Film Array GI panel results in the setting of clinical illness compatible with gastroenteritis may be due to infection by pathogens that are not detected by this test. False negatives may occur due to genetic variability in the region targeted by the primers. V. cholerae DNA JASON+non-probe Ql (Stl) Not Detected *NA* (07/22/24 1:25 PM) Invalid Interpretation Code Not Detected AH Auto Microbiology GL SS V. cholerae+parahaemoly ticus+vulnificus DNA JASON+non-probe Ql (Stl) Not Detected *NA* (07/22/24 1:25 PM) Invalid Interpretation Code Not Detected AH Auto Microbiology GL SS Y. enterocolitica DNA JASON+non-probe Ql (Stl) Not Detected *NA* (07/22/24 1:25 PM) Invalid Interpretation Code Not Detected AH Auto Microbiology GL SS LABORATORYOrdered By: Lali Ortiz on 07-22-2024 Hemoglobin.gastroint estinal Ql (Stl) Negative (07/22/24 1:25 PM) Normal AO Rapid Testing SS Clostridium difficile PCR Negative (07/22/24 9:38 AM) Normal AO Auto Urine SS Clostridium difficile PCR Int No tcdB gene DNA detected. Negative test results may occur from improper collection, handling or storage of specimen, technical error, or extremely low levels of target below the limit of detection of the assay. Invalid Interpretation Code AO Auto Urine SS LABORATORYOrdered By: SYSTEM SYSTEM on 07-22-2024 Albumin BCP dye [Mass/Vol] 4.1 G/dL Normal 3.4 - 4.8 G/dL AO ADM SS Albumin/Globulin [Mass ratio] 1.5 {ratio} Normal 1.1 - 2.5 ratio AO ADM SS ALP [Catalytic activity/Vol] 69 U/L Normal 40 - 135 U/L AO ADM SS ALT With P-5'-P [Catalytic activity/Vol] 29 U/L Normal 14 - 59 U/L AO ADM SS Amylase [Catalytic activity/Vol] 40 U/L Normal 25 - 115 U/L AO ADM SS AST With P-5'-P [Catalytic activity/Vol] 13 U/L Normal 10 - 40 U/L AO ADM SS Basophils (Bld) [#/Vol] 0.1 103/mcL Normal 0.0 - 0.2 10^3/mcL AO Workflow SS Basophils/100 WBC (Bld) 0.9 % Normal 0.0 - 2.5 % AO Workflow SS Bilirubin [Mass/Vol] 1.2 mg/dL High 0.2 - 1 .0 mg/dL AO ADM SS Comment on above: Interpretive Data: U se of this assay is not recommended for patients undergoing treatment with eltrombopag due to the potential for falsely elevated results. Calcium [Mass/Vol] 9.6 mg/dL Normal 8.4 - 10. 2 mg/dL AO ADM SS Chloride [Moles/Vol] 104 mmol/L Normal 98 - 10 7 mmol/L AO ADM SS CO2 [Moles/Vol] 27 mmol/L Normal 23 - 31 mmol/L AO ADM SS Creatinine [Mass/Vol] 0.68 mg/dL Normal 0.55 - 1.02 mg/dL AO ADM SS Comment on above: Interpretive Data: T esting performed on Siemens Dimension EXL analyzer using a modified kinetic Rena technique. Electrolyte Balance 9.0 mEq/L Normal 4.0 - 15 .0 mEq/L AO ADM SS Eosinophil, Absolute 0.1 103/mcL Normal 0.0 - 0 .7 10^3/mcL AO Workflow SS Eosinophils/100 WBC (Bld) 0.9 % Normal 0.0 - 7.0 % AO Workflow SS Erythrocyte distribution width (RBC) [Ratio] 13.7 % Normal 11.5 - 15.5 % AO Workflow SS GFR/1.73 sq M.predicted among blacks MDRD (S/P/Bld) [Vol rate/Area] 107 ml/min/1.73sqm Invalid Interpretation Code AO Chemistry S Comment on above: Interpretive Data: GFR Population mean for , Non- Americans Ages 20-29 = 116 mL/min/1.73 sq.m. Ages 30-39 = 107 mL/min/1.73 sq.m. Ages 40-49 = 99 mL/min/1.73 sq.m. Ages 50-59 = 93 mL/min/1.73 sq.m. Ages 60-69 = 85 mL/min/1.73 sq.m. Ages 70+ = 75 mL/min/1.73 sq.m. Chronic Kidney Disease: Less than 60 mL/min/1.73 square meters End Stage Renal Disease: Less than 15 mL/min/1.73 square meters GFR/1.73 sq M.predicted among non-blacks MDRD (S/P/Bld) [Vol rate/Area] 88 ml/min/1.73sqm Invalid Interpretation Code AO Chemistry S Comment on above: Interpretive Data: GFR Population mean for , Non- Americans Ages 20-29 = 116 mL/min/1.73 sq.m. Ages 30-39 = 107 mL/min/1.73 sq.m. Ages 40-49 = 99 mL/min/1.73 sq.m. Ages 50-59 = 93 mL/min/1.73 sq.m. Ages 60-69 = 85 mL/min/1.73 sq.m. Ages 70+ = 75 mL/min/1.73 sq.m. Chronic Kidney Disease: Less than 60 mL/min/1.73 square meters End Stage Renal Disease: Less than 15 mL/min/1.73 square meters Globulin 2.7 G/dL Invalid Interpretation Code AO ADM SS Glucose [Mass/Vol] 150 mg/dL High 80 - 115 mg/dL AO ADM SS Hematocrit (Bld) [Volume fraction] 48.0 % High 34.0 - 46.0 % AO Workflow SS Hemoglobin (Bld) [Mass/Vol] 16.0 G/dL Normal 12.0 - 16.0 G/dL AO Workflow SS Lipase [Catalytic activity/Vol] 48 U/L Normal 16 - 77 U/L AO ADM SS Lymphocytes (Bld) [#/Vol] 3.6 103/mcL Normal 0.9 - 4.3 10^3/mcL AO Workflow SS Lymphocytes/100 WBC (Bld) 29.7 % Normal 20.0 - 40.0 % AO Workflow SS MCH (RBC) [Entitic mass] 30.6 pg Normal 27.0 - 33.0 pg AO Workflow SS MCHC 33.3 G/dL Normal 32.0 - 36.0 G/dL AO Workflow SS MCV (RBC) [Entitic vol] 92.2 fL Normal 80.0 - 99.0 fL AO Workflow SS Monocytes (Bld) [#/Vol] 0.7 103/mcL Normal 0.1 - 1.4 10^3/mcL AO Workflow SS Monocytes/100 WBC (Bld) 5.8 % Normal 2.0 - 13.0 % AO Workflow SS Neutrophils (Bld) [#/Vol] 7.5 103/mcL Normal 2.3 - 8.1 10^3/mcL AO Workflow SS Neutrophils/100 WBC (Bld) 62.7 % Normal 50.0 - 75.0 % AO Workflow SS Platelet mean volume (Bld) [Entitic vol] 8.4 fL Normal 6.6 - 10.5 fL AO Workflow SS Platelets (Bld) [#/Vol] 214 103/mcL Normal 150 - 450 10^3/mcL AO Workflow SS Potassium [Moles/Vol] 4.1 mmol/L Normal 3.5 - 5.1 mmol/L AO ADM SS Protein [Mass/Vol] 6.8 G/dL Normal 6.4 - 8.2 G/dL AO ADM SS RBC (Bld) [#/Vol] 5.21 106/mcL Normal 4.10 - 5.3 0 10^6/mcL AO Workflow SS Sodium [Moles/Vol] 140 mmol/L Normal 136 - 145 mmol/L AO ADM SS Urea nitrogen [Mass/Vol] 11 mg/dL Normal 7 - 18 mg/dL AO ADM SS Urea nitrogen/Creatinine [Mass ratio] 16 ratio Normal 7 - 27 ratio AO ADM SS WBC (Bld) [#/Vol] 12.0 103/mcL High 4.5 - 10.8 10^3/mcL AO Workflow SS LIPon 07-22-2024 Lipase Level 48 U/L Normal 16-77 [facility] Comment on above: Performed By: #### T SH, GFR, CMP, A1C, ANEU, VIDH, CBC, LIPID, [id number], ADIFF #### [address] [address] OCC (LAB)on 07-22-2024 Occult Blood Fecal Negative Normal Negative [facility] Comment on above: Performed By: #### S TGIPCR ####[place] [address]#### OCC ####[address] [address] STGIPCRon 07-22-2024 Adenovirus F 40/41 Not detected Normal Not Detected [facility] Comment on above: Performed By: #### T SH, GFR, CMP, A1C, ANEU, VIDH, CBC, LIPID, FT4, ADIFF #### [address] [address] Astrovirus Not detected Normal Not Detected [facility] Comment on above: Performed By: #### T SH, GFR, CMP, A1C, ANEU, VIDH, CBC, LIPID, FT4, ADIFF #### [address] [address] Campy (jejuni/coli/ups) Not detected Normal Not Detected [facility] Comment on above: Performed By: #### T SH, GFR, CMP, A1C, ANEU, VIDH, CBC, LIPID, FT4, ADIFF #### [address] [address] Cryptosporidium Not detected Normal Not Detected [facility] Comment on above: Performed By: #### T SH, GFR, CMP, A1C, ANEU, VIDH, CBC, LIPID, FT4, ADIFF #### [address] [address] Cyclospora Not detected Normal Not Detected [facility] Comment on above: Performed By: #### T SH, GFR, CMP, A1C, ANEU, VIDH, CBC, LIPID, FT4, ADIFF #### [address] [address] E. coli (ETEC) Not detected Normal Not Detected [facility] Comment on above: Performed By: #### T SH, GFR, CMP, A1C, ANEU, VIDH, CBC, LIPID, FT4, ADIFF #### [place] [address] E. coli O157 Not Applicable Normal Not Detected [facility] Comment on above: Performed By: #### T SH, GFR, CMP, A1C, ANEU, VIDH, CBC, LIPID, FT4, ADIFF #### [place] [address] Entamoeba histolytica Not detected Normal Not Detected [facility] Comment on above: Performed By: #### T SH, GFR, CMP, A1C, ANEU, VIDH, CBC, LIPID, FT4, ADIFF #### [place] [address] Enteroaggregative E. coli (EAEC) Not detected Normal Not Detected [facility] Comment on above: Performed By: #### T SH, GFR, CMP, A1C, ANEU, VIDH, CBC, LIPID, FT4, ADIFF #### [place] [address] Enteropathogenic E. coli (EPEC) Not detected Normal Not Detected [facility] Comment on above: Performed By: #### T SH, GFR, CMP, A1C, ANEU, VIDH, CBC, LIPID, FT4, ADIFF #### [place] [address] Giardia lamblia Not detected Normal Not Detected [facility] Comment on above: Performed By: #### T SH, GFR, CMP, A1C, ANEU, VIDH, CBC, LIPID, FT4, ADIFF #### [place] [address] Norovirus GI/GII See below Normal Not Detected [facility] Comment on above: Result Comment: T he body repairer of the Stool GI PCR panel has identified an increase of potential false positive results for Norovirus. A Norovirus positive result should correlate with the patient?s clinical history and presentation, along with travel history and disease severity. Performed By: #### T SH, GFR, CMP, A1C, ANEU, VIDH, CBC, LIPID, FT4, ADIFF #### [place] [address] Plesiomonas shigelloides Not detected Normal Not Detected [facility] Comment on above: Performed By: #### T SH, GFR, CMP, A1C, ANEU, VIDH, CBC, LIPID, FT4, ADIFF #### [place] [address] Rotavirus A Not detected Normal Not Detected [facility] Comment on above: Performed By: #### T SH, GFR, CMP, A1C, ANEU, VIDH, CBC, LIPID, FT4, ADIFF #### [place] [address] Salmonella species, stool Not detected Normal Not Detected [facility] Comment on above: Performed By: #### T SH, GFR, CMP, A1C, ANEU, VIDH, CBC, LIPID, FT4, ADIFF #### [place] [address] Sapovirus I,II,IV,V Not detected Normal Not Detected [facility] Comment on above: Performed By: #### T SH, GFR, CMP, A1C, ANEU, VIDH, CBC, LIPID, FT4, ADIFF #### [place] [address] Shig Tox E. coli (STEC) Not detected Normal Not Detected [facility] Comment on above: Performed By: #### T SH, GFR, CMP, A1C, ANEU, VIDH, CBC, LIPID, FT4, ADIFF #### [place] [address] Shigella/Enteroinvas elaine E. coli (EIEC) Not detected Normal Not Detected [facility] Comment on above: Performed By: #### T SH, GFR, CMP, A1C, ANEU, VIDH, CBC, LIPID, FT4, ADIFF #### [place] [id number] Stool GI Comment See Comment Normal [facility] Comment on above: Result Comment: Viru s, bacteria, and parasite nucleic acid may persist in vivo independently of organism viability. Negative Film Array GI panel results in the setting of clinical illness compatible with gastroenteritis may be due to infection by pathogens that are not detected by this test. False negatives may occur due to genetic variability in the region targeted by the primers. Performed By: #### T SH, GFR, CMP, A1C, ANEU, VIDH, CBC, LIPID, FT4, ADIFF #### [place] [address] [place], [place] [address] Vibrio cholerae Not detected Normal Not Detected [facility] Comment on above: Performed By: #### T SH, GFR, CMP, A1C, ANEU, VIDH, CBC, LIPID, FT4, ADIFF #### [address] [address] Vibrio par/vul/chol Not detected Normal Not Detected [facility] Comment on above: Performed By: #### T SH, GFR, CMP, A1C, ANEU, VIDH, CBC, LIPID, FT4, ADIFF #### [address] [address] Yersinia enterocolitica Not detected Normal Not Detected [facility] Comment on above: Performed By: #### T SH, GFR, CMP, A1C, ANEU, VIDH, CBC, LIPID, FT4, ADIFF #### [address] [address] COVPCRon 06-03-2024 SARS-CoV-2 (COVID-19) RNA JASON+probe Ql (Unsp spec) Negative Normal Negative [facility] ([place]) Comment on above: Result Comment: Resu lts from the Xpert Xpress CoV-2/Flu/RSV plus test should be correlated with the clinical history, epidemiological data, and other data available to the clinical evaluating the patient. Performance of the Xpert Xpress CoV-2/Flu/RSV plus test has only been established in nasopharyngeal swab specimen. Erroneous test results might occur from improper specimen collection, failure to follow the recommended sample collection, handling and storage procedures, technical error, or sample mix-up. False negative results may occur if a virus is present at a level below the analytical limit of detection. Viral nucleic acid may persist in vivo, independent of virus viability. Detection of analyte target(s) does not imply that the corresponding virus(es) are infectious or are the causative agents for clinical symptoms. Recent patient exposure to FluMist or other live attenuated influenza vaccines may cause inaccurate positive results. Performed By: #### C OVPCR #### [place] [address] LABORATORYOrdered By: Kelly Ortiz on 06-03-2024 SARS-CoV-2 (COVID-19) RNA JASON+probe Ql (Resp) Negative 1 (06/03/24 1:28 PM) Normal AO Auto Urine SS Comment on above: Interpretive Data: R esults from the Xpert Xpress CoV-2/Flu/RSV plus test should be correlated with the clinical history, epidemiological data, and other data available to the clinical evaluating the patient. Performance of the Xpert Xpress CoV-2/Flu/RSV plus test has only been established in nasopharyngeal swab specimen. Erroneous test results might occur from improper specimen collection, failure to follow the recommended sample collection, handling and storage procedures, technical error, or sample mix-up. False negative results may occur if a virus is present at a level below the analytical limit of detection. Viral nucleic acid may persist in vivo, independent of virus viability. Detection of analyte target(s) does not imply that the corresponding virus(es) are infectious or are the causative agents for clinical symptoms. Recent patient exposure to FluMist or other live attenuated influenza vaccines may cause inaccurate positive results. LABORATORYOrdered By: Yassine Govea on 06-03-2024 Albumin DL <= 20 mg/L (U) [Mass/Vol] 442 mcg/dL Invalid Interpretation Code AO ADM SS Albumin/Creatinine DL <= 20 mg/L (U) [Mass ratio] 6 mcg/mg Normal 0 - 30 mcg/mg AO ADM SS Creatinine (U) [Mass/Vol] 74.6 mg/dL Normal 28.0 - 117.0 mg/dL AO ADM SS MALBRon 06-03-2024 U Creatinine 74.6 mg/dL Normal 28.0-117.0 [facility] ([place]) Comment on above: Performed By: #### M ALBR #### [address] [address] U Microalb 442 mcg/dL Normal [facility] ([place]) Comment on above: Performed By: #### M ALBR #### [address] [address] U Ratio Alb/Cre 6 mcg/mg Normal 0-30 [facility] ([place]) Comment on above: Performed By: #### M ALBR #### [address] [address] .Auto Diffon 03-16-2024 Basophil, Absolute 0.1 10 3/mcL Normal 0.0-0.2 [facility] ([place]) Comment on above: Performed By: #### A DIFF, ANEU, CMP, GFR, CBC, LIPID #### [address] [address] Basophils/100 WBC (Bld) 0.8 % Normal 0.0-2.5 [facility] ([place]) Comment on above: Performed By: #### A DIFF, ANEU, CMP, GFR, CBC, LIPID #### [address] [address] Eosinophil, Absolute 0.1 10 3/mcL Normal 0.0-0.4 [facility] ([place]) Comment on above: Performed By: #### A DIFF, ANEU, CMP, GFR, CBC, LIPID #### [address] [address] Eosinophils/100 WBC (Bld) 0.9 % Normal 0.0-7.0 [facility] ([place]) Comment on above: Performed By: #### A DIFF, ANEU, CMP, GFR, CBC, LIPID #### [address] [address] Lymphocyte, Absolute 3.0 10 3/mcL Normal 0.8-3.9 [facility] ([place]) Comment on above: Performed By: #### A DIFF, ANEU, CMP, GFR, CBC, LIPID #### [address] [address] Lymphocytes/100 WBC (Bld) 25.0 % Normal 10.0-50.0 [facility] ([place]) Comment on above: Performed By: #### A DIFF, ANEU, CMP, GFR, CBC, LIPID #### [address] [address] Monocyte, Absolute 0.8 10 3/mcL Normal 0.2-1.0 [facility] ([place]) Comment on above: Performed By: #### A DIFF, ANEU, CMP, GFR, CBC, LIPID #### [address] [address] Monocytes/100 WBC (Bld) 6.9 % Normal 1.7-13.0 [facility] ([place]) Comment on above: Performed By: #### A DIFF, ANEU, CMP, GFR, CBC, LIPID #### [address] [address] Neutrophils/100 WBC (Bld) 66.4 % Normal 37.0-80.0 [facility] ([place]) Comment on above: Performed By: #### A DIFF, ANEU, CMP, GFR, CBC, LIPID #### [address] [address] .GFRon 03-16-2024 GFR 115 ml/min/1.73sqm Normal [facility] ([place]) Comment on above: Result Comment: GFR Population mean for , Non- Americans Ages 20-29 = 116 mL/min/1.73 sq.m. Ages 30-39 = 107 mL/min/1.73 sq.m. Ages 40-49 = 99 mL/min/1.73 sq.m. Ages 50-59 = 93 mL/min/1.73 sq.m. Ages 60-69 = 85 mL/min/1.73 sq.m. Ages 70+ = 75 mL/min/1.73 sq.m. Chronic Kidney Disease: Less than 60 mL/min/1.73 square meters End Stage Renal Disease: Less than 15 mL/min/1.73 square meters Performed By: #### A DIFF, ANEU, CMP, GFR, CBC, LIPID #### [address] [address] GFR Non- 95 ml/min/1.73sqm Normal [facility] ([place]) Comment on above: Result Comment: GFR Population mean for , Non- Americans Ages 20-29 = 116 mL/min/1.73 sq.m. Ages 30-39 = 107 mL/min/1.73 sq.m. Ages 40-49 = 99 mL/min/1.73 sq.m. Ages 50-59 = 93 mL/min/1.73 sq.m. Ages 60-69 = 85 mL/min/1.73 sq.m. Ages 70+ = 75 mL/min/1.73 sq.m. Chronic Kidney Disease: Less than 60 mL/min/1.73 square meters End Stage Renal Disease: Less than 15 mL/min/1.73 square meters Performed By: #### A DIFF, ANEU, CMP, GFR, CBC, LIPID #### [address] [address] .NEUABSon 03-16-2024 Neutrophil, Absolute 7.9 10 3/mcL High 2.9-6.2 [facility] ([place]) Comment on above: Performed By: #### A DIFF, ANEU, CMP, GFR, CBC, LIPID #### [address] [address] CBCon 03-16-2024 Erythrocyte distribution width (RBC) [Ratio] 13.6 % Normal 11.5-14.5 [facility] ([place]) Comment on above: Performed By: #### A DIFF, ANEU, CMP, GFR, CBC, LIPID #### [address] [address] Hematocrit (Bld) [Volume fraction] 47.6 % High 37.0-47.0 [facility] ([place]) Comment on above: Performed By: #### A DIFF, ANEU, CMP, GFR, CBC, LIPID #### [address] [address] Hgb 15.6 G/dL Normal 12.0-16.0 [facility] ([place]) Comment on above: Performed By: #### A DIFF, ANEU, CMP, GFR, CBC, LIPID #### [address] [address] MCH (RBC) [Entitic mass] 30.2 pg Normal 27.0-31.2 [facility] ([place]) Comment on above: Performed By: #### A DIFF, ANEU, CMP, GFR, CBC, LIPID #### [place] [id number] MCHC 32.7 G/dL Low 33.0-37.0 [facility] ([place] Comment on above: Performed By: #### A DIFF, ANEU, CMP, GFR, CBC, LIPID #### [place] [address] MCV (RBC) [Entitic vol] 92.4 fL Normal 80.0-94.0 [facility] ([place]) Comment on above: Performed By: #### A DIFF, ANEU, CMP, GFR, CBC, LIPID #### [place] [id number] Platelet 202 10 3/mcL Normal 130-400 [facility] ([place]) Comment on above: Performed By: #### A DIFF, ANEU, CMP, GFR, CBC, LIPID #### [address] [address] Platelet mean volume (Bld) [Entitic vol] 8.8 fL Normal 7.4-10.4 [facility] ([place]) Comment on above: Performed By: #### A DIFF, ANEU, CMP, GFR, CBC, LIPID #### [place] [id number] RBC 5.16 10 6/mcL Normal 4.20-5.40 [facility] ([place]) Comment on above: Performed By: #### A DIFF, ANEU, CMP, GFR, CBC, LIPID #### [place] [id number] WBC 12.0 10 3/mcL High 4.6-10.8 [facility] ([place]) Comment on above: Performed By: #### A DIFF, ANEU, CMP, GFR, CBC, LIPID #### [address] [address] CMPon 03-16-2024 Albumin Level 3.7 G/dL Normal 3.5-5.0 [facility] ([place]) Comment on above: Performed By: #### A DIFF, ANEU, CMP, GFR, CBC, LIPID #### [address] [address] Albumin/Globulin [Mass ratio] 1.2 {ratio} Normal 1.1-2.5 [facility] ([place]) Comment on above: Performed By: #### A DIFF, ANEU, CMP, GFR, CBC, LIPID #### [address] [address] ALP [Catalytic activity/Vol] 70 U/L Normal 40-135 [facility] ([place]) Comment on above: Performed By: #### A DIFF, ANEU, CMP, GFR, CBC, LIPID #### [address] [address] ALT [Catalytic activity/Vol] 24 U/L Normal 14-59 [facility] ([place]) Comment on above: Performed By: #### A DIFF, ANEU, CMP, GFR, CBC, LIPID #### [address] [address] AST [Catalytic activity/Vol] 13 U/L Normal 10-40 [facility] ([place]) Comment on above: Performed By: #### A DIFF, ANEU, CMP, GFR, CBC, LIPID #### [address] [address] Bili Total 0.8 mg/dL Normal 0.2-1.0 [facility] ([place]) Comment on above: Result Comment: Use of this assay is not recommended for patients undergoing treatment with eltrombopag due to the potential for falsely elevated results. Performed By: #### A DIFF, ANEU, CMP, GFR, CBC, LIPID #### [address] [address] BUN/Creatinine Ratio 20 ratio Normal 7-27 [facility] ([place]) Comment on above: Performed By: #### A DIFF, ANEU, CMP, GFR, CBC, LIPID #### [address] [address] Calcium [Mass/Vol] 8.6 mg/dL Normal 8.4-10.2 [facility] ([place]) Comment on above: Performed By: #### A DIFF, ANEU, CMP, GFR, CBC, LIPID #### [address] [address] Chloride [Moles/Vol] 103 mmol/L Normal 98-107 [facility] ([place]) Comment on above: Performed By: #### A DIFF, ANEU, CMP, GFR, CBC, LIPID #### [place] [address] CO2 [Moles/Vol] 27 mmol/L Normal 22-29 [facility] ([place]) Comment on above: Performed By: #### A DIFF, ANEU, CMP, GFR, CBC, LIPID #### [place] [address] Creatinine [Mass/Vol] 0.64 mg/dL Normal 0.55-1.02 [facility] ([place]) Comment on above: Performed By: #### A DIFF, ANEU, CMP, GFR, CBC, LIPID #### [address] [address] Electrolyte Balance 9.0 mEq/L Normal 4.0-15.0 [facility] ([place]) Comment on above: Performed By: #### A DIFF, ANEU, CMP, GFR, CBC, LIPID #### [address] [address] Globulin 3.1 G/dL Normal [facility] ([place]) Comment on above: Performed By: #### A DIFF, ANEU, CMP, GFR, CBC, LIPID #### [address] [address] Glucose [Mass/Vol] 182 mg/dL High 70-105 [facility] ([place]) Comment on above: Performed By: #### A DIFF, ANEU, CMP, GFR, CBC, LIPID #### [place] [address] [place], [place] [address] Potassium [Moles/Vol] 4.0 mmol/L Normal 3.5-5.1 [facility] ([place]) Comment on above: Performed By: #### A DIFF, ANEU, CMP, GFR, CBC, LIPID #### [place] [address] [place], [place] [address] Sodium [Moles/Vol] 139 mmol/L Normal 136-145 [facility] ([place]) Comment on above: Performed By: #### A DIFF, ANEU, CMP, GFR, CBC, LIPID #### [place] [address] [place], [place] [address] Total Protein 6.8 G/dL Normal 6.4-8.2 [facility] ([place]) Comment on above: Performed By: #### A DIFF, ANEU, CMP, GFR, CBC, LIPID #### [place] [address] [place], [place] [address] Urea nitrogen [Mass/Vol] 13 mg/dL Normal 7-18 [facility] ([place]) Comment on above: Performed By: #### A DIFF, ANEU, CMP, GFR, CBC, LIPID #### [address] [address] LABORATORYOrdered By: SYSTEM SYSTEM on 03-16-2024 Albumin BCP dye [Mass/Vol] 3.7 G/dL Normal 3.5 - 5.0 G/dL AO ADM SS Albumin/Globulin [Mass ratio] 1.2 {ratio} Normal 1.1 - 2.5 ratio AO ADM SS ALP [Catalytic activity/Vol] 70 U/L Normal 40 - 135 U/L AO ADM SS ALT With P-5'-P [Catalytic activity/Vol] 24 U/L Normal 14 - 59 U/L AO ADM SS AST With P-5'-P [Catalytic activity/Vol] 13 U/L Normal 10 - 40 U/L AO ADM SS Basophil, Absolute 0.1 103/mcL Normal 0.0 - 0.2 10^3/mcL AO Workflow SS Basophils/100 WBC (Bld) 0.8 % Normal 0.0 - 2.5 % AO Workflow SS Bilirubin [Mass/Vol] 0.8 mg/dL Normal 0.2 - 1 .0 mg/dL AO ADM SS Comment on above: Interpretive Data: U se of this assay is not recommended for patients undergoing treatment with eltrombopag due to the potential for falsely elevated results. Calcium [Mass/Vol] 8.6 mg/dL Normal 8.4 - 10. 2 mg/dL AO ADM SS Chloride [Moles/Vol] 103 mmol/L Normal 98 - 10 7 mmol/L AO ADM SS CO2 [Moles/Vol] 27 mmol/L Normal 22 - 29 mmol/L AO ADM SS Creatinine [Mass/Vol] 0.64 mg/dL Normal 0.55 - 1.02 mg/dL AO ADM SS Electrolyte Balance 9.0 mEq/L Normal 4.0 - 15 .0 mEq/L AO ADM SS Eosinophil, Absolute 0.1 103/mcL Normal 0.0 - 0 .4 10^3/mcL AO Workflow SS Eosinophils/100 WBC (Bld) 0.9 % Normal 0.0 - 7.0 % AO Workflow SS Erythrocyte distribution width (RBC) [Ratio] 13.6 % Normal 11.5 - 14.5 % AO Workflow SS GFR/1.73 sq M.predicted among blacks MDRD (S/P/Bld) [Vol rate/Area] 115 ml/min/1.73sqm Invalid Interpretation Code AO Chemistry S Comment on above: Interpretive Data: GFR Population mean for , Non- Americans Ages 20-29 = 116 mL/min/1.73 sq.m. Ages 30-39 = 107 mL/min/1.73 sq.m. Ages 40-49 = 99 mL/min/1.73 sq.m. Ages 50-59 = 93 mL/min/1.73 sq.m. Ages 60-69 = 85 mL/min/1.73 sq.m. Ages 70+ = 75 mL/min/1.73 sq.m. Chronic Kidney Disease: Less than 60 mL/min/1.73 square meters End Stage Renal Disease: Less than 15 mL/min/1.73 square meters GFR/1.73 sq M.predicted among non-blacks MDRD (S/P/Bld) [Vol rate/Area] 95 ml/min/1.73sqm Invalid Interpretation Code AO Chemistry S Comment on above: Interpretive Data: GFR Population mean for , Non- Americans Ages 20-29 = 116 mL/min/1.73 sq.m. Ages 30-39 = 107 mL/min/1.73 sq.m. Ages 40-49 = 99 mL/min/1.73 sq.m. Ages 50-59 = 93 mL/min/1.73 sq.m. Ages 60-69 = 85 mL/min/1.73 sq.m. Ages 70+ = 75 mL/min/1.73 sq.m. Chronic Kidney Disease: Less than 60 mL/min/1.73 square meters End Stage Renal Disease: Less than 15 mL/min/1.73 square meters Globulin 3.1 G/dL Invalid Interpretation Code AO ADM SS Glucose [Mass/Vol] 182 mg/dL High 70 - 105 mg/dL AO ADM SS Hematocrit (Bld) [Volume fraction] 47.6 % High 37.0 - 47.0 % AO Workflow SS Hemoglobin (Bld) [Mass/Vol] 15.6 G/dL Normal 12.0 - 16.0 G/dL AO Workflow SS Lymphocyte, Absolute 3.0 103/mcL Normal 0.8 - 3 .9 10^3/mcL AO Workflow SS Lymphocytes/100 WBC (Bld) 25.0 % Normal 10.0 - 50.0 % AO Workflow SS MCH (RBC) [Entitic mass] 30.2 pg Normal 27.0 - 31.2 pg AO Workflow SS MCHC 32.7 G/dL Low 33.0 - 37.0 G/dL AO Workflow SS MCV (RBC) [Entitic vol] 92.4 fL Normal 80.0 - 94.0 fL AO Workflow SS Monocyte, Absolute 0.8 103/mcL Normal 0.2 - 1.0 10^3/mcL AO Workflow SS Monocytes/100 WBC (Bld) 6.9 % Normal 1.7 - 13.0 % AO Workflow SS Neutrophil, Absolute 7.9 103/mcL High 2.9 - 6 .2 10^3/mcL AO Workflow SS Neutrophils/100 WBC (Bld) 66.4 % Normal 37.0 - 80.0 % AO Workflow SS Platelet mean volume (Bld) [Entitic vol] 8.8 fL Normal 7.4 - 10.4 fL AO Workflow SS Platelets (Bld) [#/Vol] 202 103/mcL Normal 130 - 400 10^3/mcL AO Workflow SS Potassium [Moles/Vol] 4.0 mmol/L Normal 3.5 - 5.1 mmol/L AO ADM SS Protein [Mass/Vol] 6.8 G/dL Normal 6.4 - 8.2 G/dL AO ADM SS RBC (Bld) [#/Vol] 5.16 106/mcL Normal 4.20 - 5.4 0 10^6/mcL AO Workflow SS Sodium [Moles/Vol] 139 mmol/L Normal 136 - 145 mmol/L AO ADM SS Urea nitrogen [Mass/Vol] 13 mg/dL Normal 7 - 18 mg/dL AO ADM SS Urea nitrogen/Creatinine [Mass ratio] 20 ratio Normal 7 - 27 ratio AO ADM SS WBC (Bld) [#/Vol] 12.0 103/mcL High 4.6 - 10.8 10^3/mcL AO Workflow SS LABORATORYOrdered By: Yassine Govea on 03-16-2024 Cholesterol [Mass/Vol] 111 mg/dL Normal 0 - 200 mg/dL AO ADM SS Comment on above: Interpretive Data: C holesterol Reference Interval: Less than 200 Desirable 200-239 Borderline high risk 240 and above High risk Cholesterol in HDL [Mass/Vol] 37 mg/dL Low 40 - 60 mg/dL AO ADM SS Cholesterol in LDL [Mass/Vol] 30 mg/dL Normal 0 - 130 mg/dL AO ADM SS Triglyceride [Mass/Vol] 222 mg/dL High 0 - 150 mg/dL AO ADM SS Comment on above: Interpretive Data: T riglyceride Reference Interval: Less than 150 Normal 150-199 Borderline high risk 200-499 High risk 500 or higher Very high risk LIPIDon 03-16-2024 Cholesterol [Mass/Vol] 111 mg/dL Normal 0-200 [facility] [place] Comment on above: Result Comment: Chol esterol Reference Interval: Less than 200 Desirable 200-239 Borderline high risk 240 and above High risk Performed By: #### A DIFF, ANEU, CMP, GFR, CBC, LIPID #### [address] [place] [address] [place], [place] [address] Cholesterol in HDL [Mass/Vol] 37 mg/dL Low 40-60 [facility] [place] Comment on above: Performed By: #### A DIFF, ANEU, CMP, GFR, CBC, LIPID #### Shay [address] [address] Cholesterol in LDL [Mass/Vol] 30 mg/dL Normal 0-130 [facility] [place] Comment on above: Performed By: #### A DIFF, ANEU, CMP, GFR, CBC, LIPID #### Shay [address] [address] Triglyceride [Mass/Vol] 222 mg/dL High 0-150 [facility] ([place] Comment on above: Result Comment: Trig lyceride Reference Interval: Less than 150 Normal 150-199 Borderline high risk 200-499 High risk 500 or higher Very high risk Performed By: #### A DIFF, ANEU, CMP, GFR, CBC, LIPID #### Sh[address] [address] CBC + DIFFon 05-21-2020 Basophils (Bld) [#/Vol] 0.10 x10EE3/UL Normal 0.00 - 0.10 [facility] Comment on above: Performed By: #### 2 66649 #### [facility],[address] [place] [address] Basophils/100 WBC (Bld) 1.3 % Normal 0.0 - 2.0 [facility] Comment on above: Performed By: #### 2 61637 #### [facility],[address] [place] [address] CBC + DIFF Normal [facility] Comment on above: Result Comment: CBC- COMPLETE BLOOD COUNT Performed By: #### 2 47795 #### [facility],[address] [place] [address] 34854 Eosinophils (Bld) [#/Vol] 0.20 x10EE3/UL Normal 0.00 - 0.50 [facility] Comment on above: Performed By: #### 2 43988 #### [facility],[address] [place] [address] 16394 Eosinophils/100 WBC (Bld) 1.6 % Normal 0.0 - 7.0 [facility] Comment on above: Performed By: #### 2 76949 #### [facility],[address] [place] [address] 59687 Erythrocyte distribution width (RBC) [Ratio] 13.2 % Normal 12.0 - 15.6 [facility] Comment on above: Performed By: #### 2 36296 #### [facility],[address] [place] [address] 25308 Hematocrit (Bld) [Volume fraction] 43.1 % Normal 34.0 - 46.0 [facility] Comment on above: Performed By: #### 2 97997 #### [facility],[address] [place] [address] 61705 Hemoglobin (Bld) [Mass/Vol] 14.9 g/dL Normal 12.0 - 16.0 [facility] Comment on above: Performed By: #### 2 07779 #### [facility],[address] [place] [address] 00790 Lymphocytes (Bld) [#/Vol] 3.00 x10EE3/UL High 0.80 - 2.80 [facility] Comment on above: Performed By: #### 2 13303 #### [facility],[address] [place] [address] 05712 Lymphocytes/100 WBC (Bld) 29.6 % Normal 20.0 - 45.0 [facility] Comment on above: Performed By: #### 2 31475 #### [facility],[address] [place] [address] 57803 MANUAL DIFF N/A Normal [facility] Comment on above: Performed By: #### 2 14361 #### [facility],[address] [place] [address] 36795 MCH (RBC) [Entitic mass] 32 pg Normal 27 - 33 [facility] Comment on above: Performed By: #### 2 33889 #### [facility],[address] [place] [address] 11157 MCHC (RBC) [Mass/Vol] 34 X10 3 Normal 32 - 36 [facility] Comment on above: Performed By: #### 2 78758 #### [facility],[address] [place] [address] 00836 MCV (RBC) [Entitic vol] 92 fL Normal 80 - 99 [facility] Comment on above: Performed By: #### 2 58141 #### [facility],[address] [place] [address] 97406 Monocytes (Bld) [#/Vol] 0.80 x10EE3/UL Normal 0.20 - 1.00 [facility] Comment on above: Performed By: #### 2 76733 #### [facility],[address] [place] [address] 44499 MONOS % 7.4 % Normal 0.0 - 10.0 [facility] Comment on above: Performed By: #### 2 09637 #### [facility],[address] [place] [address] 20832 Morphology Shamar (Bld) [Interp] N/A Normal [facility] Comment on above: Performed By: #### 2 50497 #### [facility],[address] [place] [address] 94505 Neutrophils (Bld) [#/Vol] 6.10 x10EE3/UL Normal 1.50 - 7.10 [facility] Comment on above: Performed By: #### 2 60539 #### [facility],[address] [place] [address] 77505 Neutrophils/100 WBC (Bld) 60.1 % Normal 46.0 - 76.0 [facility] Comment on above: Performed By: #### 2 67731 #### [facility],[address] [place] [address] 32389 Platelet mean volume (Bld) [Entitic vol] 8.5 fL Normal 6.6 - 10.5 [facility] Comment on above: Result Comment: AUTO MATED DIFFERENTIAL Performed By: #### 2 08681 #### [facility],[address] [place] [address]53 Platelets (Bld) [#/Vol] 243 x10EE3/UL Normal 150 - 450 [facility] Comment on above: Performed By: #### 2 14178 #### [facility],[address] [place] [address] 12263 RBC (Bld) [#/Vol] 4.70 x 10EE6/UL Normal 4.10 - 5.30 [facility] Comment on above: Performed By: #### 2 77718 #### [facility],[address] [place] [address] 09435 WBC (Bld) [#/Vol] 10.2 x 10EE3/UL Normal 4.5 - 10.8 [facility] Comment on above: Performed By: #### 2 90989 #### [facility],[address] [place] [address] 42759 CMP with eGFRon 05-21-2020 Age - Reported 54 years Normal [facility] Comment on above: Performed By: #### 2 47990 #### [facility],[address] [place] [address] 12601 Albumin [Mass/Vol] 4.0 g/dL Normal 3.4 - 4.8 [facility] Comment on above: Performed By: #### 2 45289 #### [facility],[address] [place] [address] 29536 Albumin/Globulin [Mass ratio] 1.5 {ratio} Normal 0.9 - 1.6 [facility] Comment on above: Performed By: #### 2 58778 #### [facility],[address] [place] [address] 98983 ALK PHOS 43 U/L Normal 38 - 126 [facility] Comment on above: Performed By: #### 2 23133 #### [facility],[address] [place] [address] 76424 ALT/SGPT 26 U/L Normal 8 - 35 [facility] Comment on above: Performed By: #### 2 13561 #### [facility],[address] [place] [address] 51829 Anion gap [Moles/Vol] 17 mmol/L Normal 10 - 20 [facility] Comment on above: Performed By: #### 2 93345 #### [facility],[address] [place] [address] 89679 AST/SGOT 20 U/L Normal 13 - 39 [facility] Comment on above: Performed By: #### 2 97111 #### [facility],[address] [place] [address] 73283 B/C RATIO 20 ratio Normal 0 - 30 [facility] Comment on above: Performed By: #### 2 85128 #### [facility],[address] [place] [address] 43882 Bilirubin [Mass/Vol] 1.0 mg/dL Normal 0.0 - 1.5 [facility] Comment on above: Performed By: #### 2 17868 #### [facility],[address] [place] [address] 29966 Calcium [Mass/Vol] 10.0 mg/dL Normal 8.6 - 10.2 [facility] Comment on above: Performed By: #### 2 62441 #### [facility],[address] [place] [address] 71184 Chloride [Moles/Vol] 105 mmol/L Normal 98 - 107 [facility] Comment on above: Performed By: #### 2 73942 #### [facility],[address] [place] [address] 66142 CO2 [Moles/Vol] 20.8 mmol/L Low 21.0 - 31.0 [facility] Comment on above: Performed By: #### 2 27969 #### [facility],[address] [place] [address] 66943 Creatinine [Mass/Vol] 0.6 mg/dL Normal 0.6 - 1.2 [facility] Comment on above: Performed By: #### 2 43822 #### [facility],[address] [place] [address]340 GFR/1.73 sq M predicted among non-blacks MDRD (S/P/Bld) [Vol rate/Area] mL/min/{1.73_m2} Normal 60 - 999 [facility] Comment on above: Performed By: #### 2 13051 #### [facility],[address] [place] [address] Result Comment: ACCO RDING TO THE NATIONAL KIDNEY DISEASE EDUCATION PROGRAM(NKDE), A NORMAL eGFR IS A VALUE GREATER THAN OR EQUAL TO 60 ML/MIN/1.73 SQ METERS. CHRONIC KIDNEY DISEASE: <60mL/MIN/1.73 SQ METERS KIDNEY FAILURE: <15mL/MIN/1.73 SQ METERS THIS TEST SHOULD ONLY BE USED FOR PATIENTS 18 YEARS OF AGE AND OLDER. GFR/1.73 sq M predicted among non-blacks MDRD (S/P/Bld) [Vol rate/Area] Normal [facility] Comment on above: Result Comment: COMP REHENSIVE METABOLIC PANEL Performed By: #### 2 60829 #### [place] [id number] Globulin (S) [Mass/Vol] 2.7 g/dL Normal 1.5 - 3.8 [facility] Comment on above: Performed By: #### 2 99510 #### [facility],[address] [place] [address] 22516 Glucose [Mass/Vol] 121 mg/dL High 74 - 106 [facility] Comment on above: Performed By: #### 2 72750 #### [address] [address] Potassium [Moles/Vol] 4.0 mmol/L Normal 3.5 - 5.1 [facility] Comment on above: Performed By: #### 2 50597 #### [place] [id number] Protein [Mass/Vol] 6.7 g/dL Normal 6.4 - 8.3 [facility] Comment on above: Performed By: #### 2 69467 #### [facility],[address] [place] [address] 98341 Sodium [Moles/Vol] 139 mmol/L Normal 136 - 145 [facility] Comment on above: Performed By: #### 2 97963 #### [facility],[address] [place] [address] 88108 Urea nitrogen [Mass/Vol] 12 mg/dL Normal 6 - 20 [facility] Comment on above: Performed By: #### 2 13908 #### [facility],[address] [place] [address] 87506 LIPID PROFILEon 05-21-2020 Cholesterol [Mass/Vol] 92 mg/dL Normal 0 - 200 [facility] Comment on above: Performed By: #### 2 44766 #### [facility],[address] [place] [address] 73349 Cholesterol in HDL [Mass/Vol] 32 mg/dL Low 40 - 60 [facility] Comment on above: Performed By: #### 2 52140 #### [facility],[address] [place] [address] 79970 Cholesterol in LDL [Mass/Vol] 36 mg/dL Normal 0 - 129 [facility] Comment on above: Performed By: #### 2 52263 #### [facility],[address] [place] [address] 08673 Cholesterol.total/Ch olesterol in HDL [Mass ratio] 2.9 {ratio} Normal 0.0 - 5.0 [facility] Comment on above: Performed By: #### 2 04234 #### [facility],[address] [place] [address] 76803 Lipid 1996 panel Normal [facility] Comment on above: Result Comment: LIPI D PROFILE Performed By: #### 2 77451 #### [facility],[address] [place] [address] 58453 Triglyceride [Mass/Vol] 121 mg/dL Normal 0 - 150 [facility] Comment on above: Performed By: #### 2 78414 #### [facility],[address] [place] [address] 15068 TSHon 05-21-2020 TSH Qn 1.64 uIU/ml Normal 0.34 - 5.60 [facility] Comment on above: Performed By: #### 2 19735 #### [facility],[address] [place] [address] 05356 GC/CHLAM AMPLIFICATION URINE [CCL]on 06-19-2019 Chlamydia Amplif, Ur Negative Normal [facility] Comment on above: Result Comment: For screening asymptomatic women, a vaginal swab specimen (APTIMA vaginal swab 422816) is optimal. Urine specimens have reduced sensitivity for Chlamydia trachomatis or Neisseria gonorrhoeae infection in female patients without symptoms. This test was developed and its performance characteristics determined by [facility] [place] ( [place]). It has not been cleared or approved by the FDA. [facility] is regulated under CLIA as qualified to perform high complexity testing. This test is used for clinical purposes. It should not be regarded as investigational or for research. [facility] [place] [address] Coby Pierre M.D. [id number] Performed By: #### 2 82075 #### [facility],[address] [place] [address] 41102 UGCAMP Negative Normal [facility] Comment on above: Performed By: #### 2 17812 #### [facility],[address] [place] [address] 55274 GC/Chlamydia Amp, Uron 06-19 Chlamydia Amplif, Ur Normal [facility] Comment on above: Result Comment: Nega tive for For screening asymptomatic women, a vaginal swab specimen (APTIMA vaginal swab 988468) is optimal. Urine specimens have reduced sensitivity for Chlamydia trachomatis or Neisseria gonorrhoeae infection in female patients without symptoms. This test was developed and its performance characteristics determined by [facility] [place] ([facility]). It has not been cleared or approved by the FDA. [facility] is regulated under CLIA as qualified to perform high complexity testing. This test is used for clinical purposes. It should not be regarded as investigational or for research. Chlamydia For screening asymptomatic women, a vaginal swab specimen (APTIMA vaginal swab 684235) is optimal. Urine specimens have reduced sensitivity for Chlamydia trachomatis or Neisseria gonorrhoeae infection in female patients without symptoms. This test was developed and its performance characteristics determined by [facility] and [facility] [place] ([facility]). It has not been cleared or approved by the FDA. [facility] is regulated under CLIA as qualified to perform high complexity testing. This test is used for clinical purposes. It should not be regarded as investigational or for research. trachomatis by For screening asymptomatic women, a vaginal swab specimen (APTIMA vaginal swab 046622) is optimal. Urine specimens have reduced sensitivity for Chlamydia trachomatis or Neisseria gonorrhoeae infection in female patients without symptoms. This test was developed and its performance characteristics determined by [facility] and [facility] [place] ([facility]). It has not been cleared or approved by the FDA. [facility] is regulated under CLIA as qualified to perform high complexity testing. This test is used for clinical purposes. It should not be regarded as investigational or for research. amplification. For screening asymptomatic women, a vaginal swab specimen (APTIMA vaginal swab 552789) is optimal. Urine specimens have reduced sensitivity for Chlamydia trachomatis or Neisseria gonorrhoeae infection in female patients without symptoms. This test was developed and its performance characteristics determined by [facility] [place] ([facility]). It has not been cleared or approved by the FDA. [facility] is regulated under CLIA as qualified to perform high complexity testing. This test is used for clinical purposes. It should not be regarded as investigational or for research. Performed By: #### U GCCT #### [facility] Routine Lab [phone] GC Amplification, Ur NGNEG Normal [facility] Comment on above: Performed By: #### U GCCT #### [facility] Routine Lab [address] [place], [place] [address] CHEST 2 VIEWSon 06-17-2019 CHEST [address] [address] Patient: CHIDI SANDERSON Phone#: : 1965 Age: 54 Gender: F Pt. Type: Out Account: [id number] Location: Ordering: ALEJANDRO DAMON Exam Date: 06/17/2019/16:12 Family Phys: Charge Code: 111309 Physician: Maries Order #: [id number] DLP Dose#: PROCEDURE: X-RAY CHEST 2 VIEWS COMPARISON: None. INDICATIONS: Difficulty breathing. FINDINGS: LUNGS: Normal. No significant pulmonary parenchymal abnormalities. VASCULATURE: Normal. Unremarkable pulmonary vasculature. CARDIAC: Normal. No cardiac silhouette abnormality or cardiomegaly. MEDIASTINUM: Normal. No visible mass or adenopathy. PLEURA: Normal. No effusion or pleural thickening. BONES: Anterior cervical fusion hardware is present. There are degenerative changes of the spine. OTHER: Negative. CONCLUSION: No acute disease. Dictated by: Laura Cuellar MD on 06/17/2019 at 16:35 Approved by: Laura Cuellar MD on 06/17/2019 at 16:35 Normal [facility] CULTURE URINEon 06-17-2019 CULTURE URINE CULTURE URINE _URINE CULTURE_ M I C R O B I O L O G Y R E P O R T FINAL Antimicrobial Susceptibility and Organism Identification Report Specimen Number : [id number] Requested : 06/17/19 Specimen Source : URINE Collected : 06/17/19 15:47 [facility]man of Isolation : OUTPATIENT Received : 06/17/19 15:47 Requesting Physician : TOMMY PATRICK ------ Patient/Specimen Tests and Comments Specimen Comments FINAL REPORT: URINE COLONY COUNT: [id number] CFU/CC >OR=TO 3 COLONY TYPES CONTAMINATED WITH: GRAM POSITIVE ROSA ------ Tech : Source : URINE ID # : [id number] FINAL Report Date : / / : Collected : 06/17/19 15:47 06/20/19.1023.KLS. 06/19/19.0815.BKO. 06/20/19.1023.[employer] VANGIE Hogan [facility] Comment on above: Performed By: #### 2 05304 #### [facility],[address] [place], [place] [id number] Laboratory - Chemistry and C hemistry - challengeon 06-17-2019 Glucose Glucometer (BldC) [Moles/Vol] 166 mg/dL Abnormal 60 - 105 mg/dL [facility] [facility] URINALYSISon 06-17-2019 Bilirubin [Mass/Vol] Negative Normal NORMAL: NEGATIVE [facility] Comment on above: Performed By: #### 2 21540 #### [facility],[address] [place] [address] 11308 Blood Negative Normal NORMAL: NEGATIVE [facility] Comment on above: Performed By: #### 2 73362 #### [facility],[address] [place], [place] [id number] Clarity (U) clear Normal NORMAL: CLEAR [facility] Comment on above: Performed By: #### 2 54081 #### [facility],[address] [place], [place] [address] Color (U) p.yel Normal NORMAL: YELLOW [facility] Comment on above: Performed By: #### 2 28399 #### [facility],[address] [place] [address] 72678 Glucose [Mass/Vol] 100 Abnormal NORMAL: NORMAL [facility] Comment on above: Performed By: #### 2 11737 #### [facility],[address] [place] [address] 16224 Ketone Negative Normal NORMAL: NEGATIVE [facility] Comment on above: Performed By: #### 2 26942 #### [facility],[address] [place] [address] 40409 Microscopic NOT Normal [facility] Comment on above: Performed By: #### 2 87241 #### [facility],[address] [place] [address] 26188 Nitrite Ql (U) Negative Normal NORMAL: NEGATIVE [facility] Comment on above: Performed By: #### 2 70309 #### [facility],[address] [place] [address] pH (Bld) 6 Normal NORMAL: 5.0-8.0 [facility] Comment on above: Performed By: #### 2 10293 #### [facility],[address] [place] [address] Protein (U) [Mass/Vol] Negative Normal NORMAL: NEGATIVE [facility] Comment on above: Performed By: #### 2 26463 #### [facility],[address] [place] [address] Sp [place]ountain 1.020 Normal NORMAL: 1.010-1.030 [facility] Comment on above: Performed By: #### 2 85527 #### [facility],[address] [place] [address] Specimen type Nom (Spec) UNSPECIFIED Normal [facility] Comment on above: Performed By: #### 2 60743 #### [facility],[address] [place] [address] 67496 Urobilinog NORM Normal NORMAL: NORMAL [facility] Comment on above: Performed By: #### 2 49375 #### [facility],[address] [place] [address] 08987 WBC (Bld) [#/Vol] Negative Normal NORMAL: NEGATIVE [facility] Comment on above: Performed By: #### 2 34354 #### [facility],[address] [place], [place] [address] Hemoglobin A1con 04-30-2019 HbA1c (Bld) [Mass fraction] 7.2 % High 4.3-5.6 [facility] Comment on above: Performed By: #### H BA1C #### [facility] Routine Lab [address] [address] HbA1c (Bld) [Mass fraction] 160 mg/dL Normal [facility] Comment on above: Performed By: #### H BA1C #### [facility] Routine Lab [address] [address] Laboratory - Chemistry and C hemistry - challengeon 12-05-2018 Glucose Glucometer (BldC) [Moles/Vol] 160 mg/dL Abnormal 60 - 105 mg/dL [facility] Hemoglobin A1con 12-02-2018 HbA1c (Bld) [Mass fraction] 9.1 % High 4.3-5.6 [facility] Comment on above: Performed By: #### H BA1C #### [facility] Routine Lab [address] [place] [address] HbA1c (Bld) [Mass fraction] 214 mg/dL Normal [facility] Comment on above: Performed By: #### H BA1C #### [facility] Routine Lab [address] [place] [address] Laboratory - Chemistry and C hemistry - challengeon 11-03-2018 Glucose Glucometer (BldC) [Moles/Vol] 409 mg/dL Abnormal 60 - 105 mg/dL [facility] Laboratory - Chemistry and C hemistry - challengeon 07-15-2018 Bilirubin Ql (U) Negative Normal [facility] Ketones Ql (U) TRACE Abnormal [facility] pH (U) 5.5 [pH] Normal [facility] Specific gravity (U) [Rel density] 1.030 Abnormal [facility] [facility] Laboratory - Hematology and Cell countson 07-15-2018 Hemoglobin Ql (U) Negative Normal [facility] Laboratory - Specimen inform ationon 07-15-2018 Appearance (U) clear [facility] Color (U) GEORGE Normal [facility] Laboratory - Urinalysison Glucose Test strip (U) [Mass/Vol] Negative Normal [facility], Inc.; [facility] Leukocyte esterase Test strip Ql (U) Negative Normal [facility], Inc.; [facility] Nitrite Ql (U) Negative Normal [facility] Protein Ql (U) TRACE Abnormal [facility] No Panel Informationon 07-15 UA - ODOR Negative Normal [facility], Inc.; [facility] UA - UROBILIGEN 1 Normal [facility] Vital Signs Date Time Vital Sign Value Performing Clinician Faci lity 08-04-2025 07:57-0500 Body height 157.48 cm Josephine Winslow Work Phone: [facility] 08-04-2025 07:57-0500 Body mass index (BMI) [Ratio] 27.2 kg/m2 Josephine Walter NP-C Work Phone: [facility] 08-04-2025 07:57-0500 Body temperature 97.4 [degF] Josephine Walter NP -C Work Phone: [facility] 08-04-2025 07:57-0500 Body weight 67.58 kg Josephine Walter NP -C Work Phone: [facility] 08-04-2025 07:57-0500 Diastolic blood pressure 64 mm[Hg] Josephine Walter NP-C Work Phone: [facility] 08-04-2025 07:57-0500 Heart rate 93 /min Josephine Walter PATHOLOGY TECHNOLOGIST -C Work Phone: [facility] 08-04-2025 07:57-0500 Respiratory rate 18 /min Josephine Walter PATHOLOGY TECHNOLOGIST -C Work Phone: [facility] 08-04-2025 07:57-0500 SaO2% (BldA) [Mass fraction] 97 % Josephine Walter PATHOLOGY TECHNOLOGIST-C Work Phone: [facility] 08-04-2025 07:57-0500 Systolic blood pressure 111 mm[Hg] Josephine Walter PATHOLOGY TECHNOLOGIST-C Work Phone: [facility] 07-19-2025 14:06-0400 Body temperature 97 [degF] Josephine Walter PATHOLOGY TECHNOLOGIST -C Work Phone: [facility] 07-19-2025 14:06-0400 Diastolic blood pressure 78 mm[Hg] Josephine Lassiterer PATHOLOGY TECHNOLOGIST-C Work Phone: [facility] 07-19-2025 14:06-0400 Heart rate 82 /min Josephine Lassiterer PATHOLOGY TECHNOLOGIST -C Work Phone: [facility] 07-19-2025 14:06-0400 Respiratory rate 16 /min Josephine Lassiterer PATHOLOGY TECHNOLOGIST -C Work Phone: [facility] 07-19-2025 14:06-0400 SaO2% (BldA) [Mass fraction] 97 % Josephine Lassiterer PATHOLOGY TECHNOLOGIST-C Work Phone: [facility] 07-19-2025 14:06-0400 Systolic blood pressure 113 mm[Hg] Josephine Lassiterer PATHOLOGY TECHNOLOGIST-C Work Phone: [facility] 07-19-2025 10:28-0400 Body mass index (BMI) [Ratio] 28.2 kg/m2 Josephine Walter PATHOLOGY TECHNOLOGIST-C Work Phone: [facility] 07-19-2025 10:28-0400 Body weight 70 kg Josephine Walter PATHOLOGY TECHNOLOGIST -C Work Phone: [facility] 05-18-2025 09:11-0400 Body height 160 cm Kobi Jacque PA-C Work Phone: [facility] 05-18-2025 09:11-0400 Body mass index (BMI) [Ratio] 29.33 kg/m2 Kobi Jacque PA-C Work Phone: [facility] 05-18-2025 09:11-0400 Body weight 75.1 kg Kobi Jacque PA-C Work Phone: [facility] 05-18-2025 09:11-0400 Diastolic blood pressure 61 mm[Hg] Kobi Jacque PA-C Work Phone: [facility] 05-18-2025 09:11-0400 Heart rate 75 /min Kobi Jacque PA-C Work Phone: [facility] 05-18-2025 09:11-0400 Respiratory rate 16 /min Kobi Jacque PA-C Work Phone: [facility] 05-18-2025 09:11-0400 SaO2% (BldA) [Mass fraction] 98 % Kobi Jacque PA-C Work Phone: [facility] 05-18-2025 09:11-0400 Systolic blood pressure 118 mm[Hg] Kobi Jacque PA-C Work Phone: [facility] 04-01-2025 10:56-0400 Body height 157.48 cm Josephine Walter PATHOLOGY TECHNOLOGIST -C Work Phone: [facility] 04-01-2025 10:56-0400 Body mass index (BMI) [Ratio] 31.4 kg/m2 Josephine Walter PATHOLOGY TECHNOLOGIST-C Work Phone: [facility] 04-01-2025 10:56-0400 Body weight 78.01 kg Josephine Walter PATHOLOGY TECHNOLOGIST -C Work Phone: [facility] 04-01-2025 10:56-0400 Diastolic blood pressure 71 mm[Hg] Josephine Walter PATHOLOGY TECHNOLOGIST-C Work Phone: [facility] 04-01-2025 10:56-0400 Heart rate 67 /min Josephine Walter PATHOLOGY TECHNOLOGIST -C Work Phone: [facility] 04-01-2025 10:56-0400 Respiratory rate 18 /min Josephine Walter PATHOLOGY TECHNOLOGIST -C Work Phone: [facility] 04-01-2025 10:56-0400 Systolic blood pressure 118 mm[Hg] Josephine Walter PATHOLOGY TECHNOLOGIST-C Work Phone: [facility] 02-23-2025 09:06-0400 Body height 160 cm Mayank Sheehan MD Work Phone: [facility] 02-23-2025 09:06-0400 Body mass index (BMI) [Ratio] 28.87 kg/m2 Mayank Sheehan MD Work Phone: [facility] 02-23-2025 09:06-0400 Body weight 73.94 kg Mayank Sheehan MD Work Phone: [facility] 02-16-2025 08:26-0400 Body height 157.5 cm Kobi Jacque PA-C Work Phone: [facility] 02-16-2025 08:26-0400 Body mass index (BMI) [Ratio] 30 kg/m2 Kobi Jacque PA-C Work Phone: [facility] 02-16-2025 08:26-0400 Body weight 74.4 kg Kobi Jacque PA-C Work Phone: [facility] 02-16-2025 08:26-0400 Diastolic blood pressure 68 mm[Hg] Kobi Jacque PA-C Work Phone: [facility] 02-16-2025 08:26-0400 Heart rate 77 /min Kobi Jacque PA-C Work Phone: [facility] 02-16-2025 08:26-0400 Respiratory rate 16 /min Kobi Rhodesos PA-C Work Phone: [facility] 02-16-2025 08:26-0400 SaO2% (BldA) [Mass fraction] 98 % Kobi Rhodesos PA-C Work Phone: [facility] 02-16-2025 08:26-0400 Systolic blood pressure 125 mm[Hg] Kobi Garsia PA-C Work Phone: [facility] 01-27-2025 08:23-0400 Body height 157.48 cm Josephine Walter PATHOLOGY TECHNOLOGIST -C Work Phone: [facility] 01-27-2025 08:23-0400 Body mass index (BMI) [Ratio] 30.5 kg/m2 Josephine Walter PATHOLOGY TECHNOLOGIST-C Work Phone: [facility] 01-27-2025 08:23-0400 Body weight 75.74 kg Josephine Walter PATHOLOGY TECHNOLOGIST -C Work Phone: [facility] 01-27-2025 08:23-0400 Diastolic blood pressure 75 mm[Hg] Josephine Walter PATHOLOGY TECHNOLOGIST-C Work Phone: [facility] 01-27-2025 08:23-0400 Heart rate 76 /min Josephine Walter PATHOLOGY TECHNOLOGIST -C Work Phone: [facility] 01-27-2025 08:23-0400 Respiratory rate 18 /min Josephine Walter PATHOLOGY TECHNOLOGIST -C Work Phone: [facility] 01-27-2025 08:23-0400 Systolic blood pressure 130 mm[Hg] Josephine Walter PATHOLOGY TECHNOLOGIST-C Work Phone: [facility] 01-26-2025 10:51-0400 Body height 157.5 cm Marlee Overton MD Work Phone: [facility] 01-26-2025 10:51-0400 Body mass index (BMI) [Ratio] 30.36 kg/m2 Marlee Overton MD Work Phone: [facility] 01-26-2025 10:51-0400 Body weight 75.3 kg Marlee Overton MD Work Phone: [facility] 01-26-2025 10:51-0400 Respiratory rate 17 /min Marlee Overton MD Work Phone: [facility] 01-19-2025 10:18-0400 Body height 157.5 cm Marlee Overton MD Work Phone: [facility] 01-19-2025 10:18-0400 Body mass index (BMI) [Ratio] 30.36 kg/m2 Marlee Overton MD Work Phone: [facility] 01-19-2025 10:18-0400 Body weight 75.3 kg Marlee Overton MD Work Phone: [facility] 01-19-2025 10:18-0400 Respiratory rate 18 /min Marlee Overton MD Work Phone: [facility] 01-13-2025 09:00-0400 Diastolic blood pressure 80 mm[Hg] Sara Golias PT Work Phone: [facility] 01-13-2025 09:00-0400 Heart rate 75 /min Sara Golias PT Work Phone: [facility] 01-13-2025 09:00-0400 Systolic blood pressure 132 mm[Hg] Sara Golias PT Work Phone: [facility] 12-15-2024 10:48-0400 Body height 157.5 cm Mayank Sheehan MD Work Phone: [facility] 12-15-2024 10:48-0400 Body mass index (BMI) [Ratio] 30.36 kg/m2 Mayank Sheehan MD Work Phone: [facility] 12-15-2024 10:48-0400 Body weight 75.3 kg Mayank Sheehan MD Work Phone: [facility] 11-17-2024 14:16-0500 Body temperature 97.6 [degF] Josephine Walter PATHOLOGY TECHNOLOGIST -C Work Phone: [facility] 11-17-2024 14:16-0500 Body weight 75.29 kg Josephine Walter PATHOLOGY TECHNOLOGIST -C Work Phone: [facility] 11-17-2024 14:16-0500 Diastolic blood pressure 75 mm[Hg] Josephine Walter PATHOLOGY TECHNOLOGIST-C Work Phone: [facility] 11-17-2024 14:16-0500 Heart rate 90 /min Josephine Walter PATHOLOGY TECHNOLOGIST -C Work Phone: [facility] 11-17-2024 14:16-0500 Respiratory rate 16 /min Josephine Walter PATHOLOGY TECHNOLOGIST -C Work Phone: [facility] 11-17-2024 14:16-0500 SaO2% (BldA) [Mass fraction] 97 % Josephine Walter PATHOLOGY TECHNOLOGIST-C Work Phone: [facility] 11-17-2024 14:16-0500 Systolic blood pressure 153 mm[Hg] Josephine Walter PATHOLOGY TECHNOLOGIST-C Work Phone: [facility] 11-09-2024 09:07-0500 Body height 157.5 cm Pacc 1 Work Phone: [facility] 11-09-2024 09:07-0500 Body mass index (BMI) [Ratio] 29.63 kg/m2 Pacc 1 Work Phone: [facility] 11-09-2024 09:07-0500 Body weight 73.48 kg Pacc 1 Work Phone: [facility] 11-09-2024 09:07-0500 Diastolic blood pressure 76 mm[Hg] Pacc 1 Work Phone: [facility] 11-09-2024 09:07-0500 Heart rate 85 /min Pacc 1 Work Phone: [facility] 11-09-2024 09:07-0500 Respiratory rate 18 /min Pacc 1 Work Phone: [facility] 11-09-2024 09:07-0500 SaO2% (BldA) [Mass fraction] 96 % Pac 1 Work Phone: [facility] 11-09-2024 09:07-0500 Systolic blood pressure 136 mm[Hg] Pac 1 Work Phone: [facility] 10-27-2024 13:35-0500 Body height 157.5 cm Mayank Sheehan MD Work Phone: [facility] 10-27-2024 13:35-0500 Body mass index (BMI) [Ratio] 28.93 kg/m2 Mayank Sheehan MD Work Phone: [facility] 10-27-2024 13:35-0500 Body weight 71.76 kg Mayank Sheehan MD Work Phone: [facility] 10-27-2024 13:35-0500 Heart rate 83 /min Mayank Sheehan MD Work Phone: [facility] 10-27-2024 13:35-0500 SaO2% (BldA) [Mass fraction] 96 % Mayank Sheehan MD Work Phone: [facility] 09-28-2024 07:29-0500 Body height 157.5 cm Newton Shine MD Work Phone: [facility] 09-28-2024 07:29-0500 Body mass index (BMI) [Ratio] 28.53 kg/m2 Newton Shine MD Work Phone: [facility] 09-28-2024 07:29-0500 Body weight 70.76 kg Newton Shine MD Work Phone: [facility] 09-28-2024 07:29-0500 Diastolic blood pressure 65 mm[Hg] Newton Shine MD Work Phone: [facility] 09-28-2024 07:29-0500 Heart rate 70 /min Newton Shine MD Work Phone: [facility] 09-28-2024 07:29-0500 Respiratory rate 16 /min Newton Shine MD Work Phone: [facility] 09-28-2024 07:29-0500 SaO2% (BldA) [Mass fraction] 98 % Newton Shine MD Work Phone: [facility] 09-28-2024 07:29-0500 Systolic blood pressure 111 mm[Hg] Newton Shine MD Work Phone: [facility] 09-08-2024 08:56-0500 Body height 157.5 cm Mayank Sheehan MD Work Phone: [facility] 09-08-2024 08:56-0500 Body mass index (BMI) [Ratio] 25.97 kg/m2 Mayank Sheehan MD Work Phone: [facility] 09-08-2024 08:56-0500 Body weight 64.41 kg Mayank Sheehan MD Work Phone: [facility] 03-24-2024 15:44-0400 Body temperature 97.81 [degF] Krislyn Aberegg PA Work Phone: [facility] 03-24-2024 15:44-0400 Body weight 75 kg Krislyn Aberegg PA Work Phone: [facility] 03-24-2024 15:44-0400 Diastolic blood pressure 72 mm[Hg] Krislyn Aberegg PA Work Phone: [facility] 03-24-2024 15:44-0400 Heart rate 116 /min Krislyn Aberegg PA Work Phone: [facility] 03-24-2024 15:44-0400 Respiratory rate 20 /min Krislyn Aberegg PA Work Phone: [facility] 03-24-2024 15:44-0400 SaO2% (BldA) [Mass fraction] 97 % Krislyn Aberegg PA Work Phone: [facility] 03-24-2024 15:44-0400 Systolic blood pressure 125 mm[Hg] Sanjay GORDON Work Phone: [facility] 06-17-2020 15:36-0400 Body height 160.02 cm [facility], [facility] 06-17-2020 15:36-0400 Body mass index (BMI) [Ratio] 28.52 kg/m2 [facility] 06-17-2020 15:36-0400 Body surface area Derived from formula 1.76 m2 [facility], Inc.; [facility], [facility]. 06-17-2020 15:36-0400 Body weight 73.03 kg [facility], Inc.; [facility] 06-17-2020 15:36-0400 Diastolic blood pressure 77 mm[Hg] [facility] Inc.; [facility], Inc[facility] Comment on above: Patient Position: Sitting; Cuff Location : Left Arm; Cuff Size: Standard 06-17-2020 15:36-0400 Heart rate 102 /min [facility], Inc.; [employer] [facility], Inc. Comment on above: Pattern: Regular 06-17-2020 15:36-0400 Systolic blood pressure 115 mm[Hg] [facility], [facility].; [facility], Inc[facility] Comment on above: Patient Position: Sitting; Cuff Location : Left Arm; Cuff Size: Standard 05-20-2020 15:44-0400 Body height 160.02 cm Allison Beth RN [facility].; [facility], Inc[facility] 05-20-2020 15:44-0400 Body mass index (BMI) [Ratio] 27.81 kg/m2 Allison Beth RN [facility], Inc.; [facility], Inc[facility] 05-20-2020 15:44-0400 Body surface area Derived from formula 1.74 m2 Allison Beth RN [facility], Inc.; [facility], Inc[facility] 05-20-2020 15:44-0400 Body weight 71.22 kg Allison Beth RN [facility], I-MD.; [facility] [employer] [facility], [facility] 05-20-2020 15:44-0400 Diastolic blood pressure 80 mm[Hg] Allison Beth RN [facility], Inc.; [facility] [employer] [facility], [facility] Comment on above: Patient Position: Sitting; Cuff Location : Left Arm; Cuff Size: Large 05-20-2020 15:44-0400 Heart rate 78 /min Allison Beth RN [facility], I-MD.; [facility], I-MD. Comment on above: Pattern: Regular 05-20-2020 15:44-0400 Systolic blood pressure 117 mm[Hg] Allison Beth RN [facility], Inc.; [employer] [facility] [facility], I-MD. Comment on above: Patient Position: Sitting; Cuff Location : Left Arm; Cuff Size: Large 06-17-2019 14:26-0400 Body height 160.02 cm GERRI ARDON RN [facility], Inc.; [facility]ENTERsarvaMAIL [facility] [employer] [facility], Inc[facility] 06-17-2019 14:26-0400 Body mass index (BMI) [Ratio] 31.53 kg/m2 GERRI GRATE REN [facility], Inc.; [facility], Inc[facility] 06-17-2019 14:26-0400 Body surface area Derived from formula 1.84 m2 GERRI GRATE REN [facility], Inc.; [facility] [employer] [facility], Inc[facility] 06-17-2019 14:26-0400 Body weight 80.74 kg GERRI GRATE REN [facility], Inc.; [facility] [employer] [facility], Inc[facility] 06-17-2019 14:26-0400 Diastolic blood pressure 77 mm[Hg] GERRI GRATE REN [facility], Inc.; [employer] [facility] [employer] [facility], I-MD. Comment on above: Patient Position: Sitting; Cuff Location : Right Arm; Cuff Size: Large 06-17-2019 14:26-0400 Heart rate 87 /min GERRI ARDON RN [facility] [place] [employer] [facility], Inc.; [facility] [employer], Inc. Comment on above: Pattern: Regular 06-17-2019 14:26-0400 Systolic blood pressure 127 mm[Hg] GERRIMCKINLEY ARDON REN [facility] [place] [employer] [facility], Inc.; [facility] NIGHTMUTE[facility] [employer], Inc. Comment on above: Patient Position: Sitting; Cuff Location : Right Arm; Cuff Size: Large 01-30-2019 13:37-0400 Body height 160.02 cm Allison Beth RN [facility] [employer] [facility], Inc.; [employer] [facility] [employer], [employer] 01-30-2019 13:37-0400 Body mass index (BMI) [Ratio] 31.44 kg/m2 Allison Beth RN [facility] [place] [employer] [facility], Inc.; [employer] [facility] [employer], [employer] 01-30-2019 13:37-0400 Body surface area Derived from formula 1.84 m2 Allison Beth RN [facility] [place] [employer] [facility], Inc.; [employer] [facility] [employer], Inc. 01-30-2019 13:37-0400 Body temperature 98.1 [degF] Allison Beth RN [facility] [employer] [facility] [employer], [employer]. Comment on above: Method: Oral 01-30-2019 13:37-0400 Body weight 80.51 kg Allison Beth RN [facility] [employer]CRM, Inc.; [employer] [facility] [employer], Inc. 01-30-2019 13:37-0400 Diastolic blood pressure 85 mm[Hg] Allison Beth RN [facility] [employer] Inc.; [employer], Inc. Comment on above: Patient Position: Sitting; Cuff Location : Left Arm; Cuff Size: Large 01-30-2019 13:37-0400 Heart rate 85 /min Allison Beth RN [facility] [employer], I-MD.; [employer], Inc. Comment on above: Pattern: Regular 01-30-2019 13:37-0400 Systolic blood pressure 145 mm[Hg] Allison Beth RN [facility] [employer].; [employer], I-MD. Comment on above: Patient Position: Sitting; Cuff Location : Left Arm; Cuff Size: Large 12-05-2018 10:35-0500 Body height 160.02 cm Allison Beth RN [facility], Inc.; [employer] [facility], Inc. 12-05-2018 10:35-0500 Body mass index (BMI) [Ratio] 32.95 kg/m2 Allison Beth RN [facility], Inc.; [facility], Inc[facility] 12-05-2018 10:35-0500 Body surface area Derived from formula 1.88 m2 Allison Beth RN [facility], Inc.; [facility], I-MD. 12-05-2018 10:35-0500 Body weight 84.37 kg Allison Beth RN [facility], Inc.; [facility], I-MD. 12-05-2018 10:35-0500 Diastolic blood pressure 83 mm[Hg] Allison Beth RN [facility], I-MD.; [employer] [facility] [employer] [facility], I-MD. Comment on above: Patient Position: Sitting; Cuff Location : Left Arm; Cuff Size: Large 12-05-2018 10:35-0500 Heart rate 93 /min Allison Beth RN [facility], I-MD.; [employer] [facility] [employer] [facility], Inc. Comment on above: Pattern: Regular 12-05-2018 10:35-0500 Systolic blood pressure 133 mm[Hg] Allison Beth RN [facility], I-MD.; [employer] [facility] [employer] [facility], Inc. Comment on above: Patient Position: Sitting; Cuff Location : Left Arm; Cuff Size: Large 11-03-2018 16:06-0500 Body height 160.02 cm GERRI ARDON RN [facility] [employer] [facility], Inc.; [facility], I-MD. 11-03-2018 16:06-0500 Body mass index (BMI) [Ratio] 31.64 kg/m2 GERRI ARDON RN [facility], Inc.; [facility], I-MD. 11-03-2018 16:06-0500 Body surface area Derived from formula 1.84 m2 GERRI ARDON RN [facility] [place] [employer] [facility], Inc.; [facility] [employer] [facility] [place] [employer] [facility], Inc. 11-03-2018 16:06-0500 Body weight 81.01 kg GERRIMCKINLEY ARDON RN [facility] [place] [employer] [facility], Inc.; [facility] [employer] [facility], Inc. 11-03-2018 16:06-0500 Diastolic blood pressure 78 mm[Hg] GERRI ARDON RN [facility] [place] [employer] [facility], Inc.; [facility] [employer] [facility] [place] [employer] [facility], Inc. Comment on above: Patient Position: Sitting; Cuff Location : Left Arm; Cuff Size: Standard 11-03-2018 16:06-0500 Heart rate 76 /min GERRI ARDON RN [facility] [place] [employer] [facility], Inc.; [facility] [place] [employer] [facility], Inc. Comment on above: Pattern: Regular 11-03-2018 16:06-0500 Systolic blood pressure 152 mm[Hg] GERRI ARDON RN [facility], Inc.; [email or web address] [facility] [place] [employer] [facility], Inc. Comment on above: Patient Position: Sitting; Cuff Location : Left Arm; Cuff Size: Standard 09-19-2018 11:06-0500 Body height 160.02 cm Andrea Barakat [employer] [facility], Inc.; [employer], Inc. 09-19-2018 11:06-0500 Body mass index (BMI) [Ratio] 31.53 kg/m2 Andrea Barakat Damon [facility] [place] [employer] [facility], Inc.; [employer], Inc. 09-19-2018 11:06-0500 Body surface area Derived from formula 1.84 m2 Andrea Barakat [employer] [facility], Inc.; [employer], Inc. 09-19-2018 11:06-0500 Body temperature 98.7 [degF] Andrea Barakat [employer], Inc.; [employer], Inc. Comment on above: Method: Oral 09-19-2018 11:06-0500 Body weight 80.74 kg Andrea Barakat [employer], Inc.; [employer], Inc. 09-19-2018 11:06-0500 Diastolic blood pressure 72 mm[Hg] Andrea Barakat [facility], Inc.; [facility], I-MD. Comment on above: Patient Position: Sitting; Cuff Location : Right Arm; Cuff Size: Large 09-19-2018 11:06-0500 Heart rate 75 /min Andrea Barakat [facility], Inc.; [facility], Inc. Comment on above: Pattern: Regular 09-19-2018 11:06-0500 Systolic blood pressure 117 mm[Hg] Andrea Barakat [facility], Inc.; [facility] HospitalLucidux. Comment on above: Patient Position: Sitting; Cuff Location : Right Arm; Cuff Size: Large 09-03-2018 16:00-0500 Body height 160.02 cm GERRI ARDON RN [facility].; [facility], Inc[employer] 09-03-2018 16:00-0500 Body mass index (BMI) [Ratio] 31.18 kg/m2 GERRI ARDON RN [facility], Inc.; [facility], Inc. 09-03-2018 16:00-0500 Body surface area Derived from formula 1.83 m2 GERRI ARDON RN [facility], Inc.; [facility], Inc. 09-03-2018 16:00-0500 Body weight 79.83 kg GERRI ARDON RN [facility], Inc.; [facility], Inc. 09-03-2018 16:00-0500 Diastolic blood pressure 68 mm[Hg] GERRI ARDON RN [facility], Inc.; [facility] ValleyLucidux. Comment on above: Patient Position: Sitting; Cuff Location : Left Arm; Cuff Size: Large 09-03-2018 16:00-0500 Heart rate 79 /min GERRI ARDON RN [facility], Inc.; [facility] [employer] [facility], Inc. Comment on above: Pattern: Regular 09-03-2018 16:00-0500 Systolic blood pressure 103 mm[Hg] GERRI ARDON RN [facility], Inc.; [facility] [employer] [facility], Inc. Comment on above: Patient Position: Sitting; Cuff Location : Left Arm; Cuff Size: Large 07-15-2018 15:48-0400 Body height 160.02 cm Andrea Barakat [employer] [facility], Inc.; [employer], Inc. 07-15-2018 15:48-0400 Body mass index (BMI) [Ratio] 30.72 kg/m2 Andrea Barakat [employer] [facility], Inc.; [facility] [employer], Inc[employer] 07-15-2018 15:48-0400 Body surface area Derived from formula 1.82 m2 Andrea Barakat [employer] [facility] Cristal [facility] [employer], Inc. 07-15-2018 15:48-0400 Body weight 78.65 kg Andrea Barakat Damon [facility] [place] [employer] [facility] [employer], [employer] 07-15-2018 15:48-0400 Diastolic blood pressure 78 mm[Hg] Andrea Barakat [employer] [facility] [employer], [employer] Comment on above: Patient Position: Sitting; Cuff Location : Left Arm; Cuff Size: Standard 07-15-2018 15:48-0400 Heart rate 80 /min Andrea Barakat [employer] [facility] [employer] Comment on above: Pattern: Regular 07-15-2018 15:48-0400 Systolic blood pressure 125 mm[Hg] Andrea Barakat [employer] [facility] [employer], Inc[employer] Comment on above: Patient Position: Sitting; Cuff Location : Left Arm; Cuff Size: Standard 07-07-2018 14:19-0400 Body height 160.02 cm [facility] [employer], Inc.; MELBER [employer] [facility] [employer] 07-07-2018 14:19-0400 Body mass index (BMI) [Ratio] 31 kg/m2 Aniya [employer] [facility] [employer].; [facility] [employer] 07-07-2018 14:19-0400 Body surface area Derived from formula 1.83 m2 Aniya [employer] [employer], [employer] MELBER [employer] 07-07-2018 14:190400 Body weight 79.38 kg Aniya [employer] [employer].; [facility] [employer]. 07-07-2018 14:19-0400 Diastolic blood pressure 78 mm[Hg] Aniya [employer] [employer] MELBER [employer] [facility] [employer]. Comment on above: Patient Position: Sitting; Cuff Location : Left Arm; Cuff Size: Standard 07-07-2018 14:19-0400 Heart rate 82 /min Aniya [employer] [employer] MEL[employer] [facility] [employer]. Comment on above: Pattern: Regular 07-07-2018 14:-0400 Systolic blood pressure 133 mm[Hg] Aniya [employer] MELBER [employer] [facility] [employer]. Comment on above: Patient Position: Sitting; Cuff Location : Left Arm; Cuff Size: Standard Encounters Encounter Date Encounter Type Care Provider Facility Start: 08-20-2025 ambulatory Josephine ramires PATHOLOGY TECHNOLOGIST Facility:[facility] Start: 08-16-2025 ambulatory Josephine ramires PATHOLOGY TECHNOLOGIST Facility:[facility] Start: 08-04-2025 End: 08-04-2025 ambulatory Josephine Walter PATHOLOGY TECHNOLOGIST [place] Start: 07-19-2025 End: 07-19-2025 Admission to same day surgery center Dr. Moiz Rodriguez DO -[facility] Start: 07-19-2025 End: 07-19-2025 ambulatory Josephine Walter PATHOLOGY TECHNOLOGIST-C Work Phone: -[facility] Start: 06-24-2025 End: 06-24-2025 ambulatory MAYANK SHEEHAN Facility:[id number] Start: 06-11-2025 End: 06-11-2025 Patient encounter procedure JOSEPHINE WALTER BAR FINISH OPERATOR-SINK MAKER [facility] Start: 06-11-2025 End: 06-11-2025 ambulatory KOBI GARSIA Facility:[facility] Start: 06-11-2025 End: 06-11-2025 Subsequent hospital visit by physician Mri Radio [facility] Wstr (I-Stat/1.5t) Work Phone: Radiology Comment on above: Spondylolisthesis of lumbar region [M43.16] Start: 06-10-2025 End: 06-11-2025 Telephone encounter Newton Shine MD Work Phone: Pain Management Comment on above: Diabetic Clearance R eceived Medication Problem Start: 06-04-2025 End: 06-04-2025 Telephone encounter Kobi Garsia PA-C Work Phone: Pain Management Comment on above: Medication Problem Start: 06-04-2025 End: 06-04-2025 ambulatory JOSEPHINE WALTER APRN-SINK MAKER Facility:[facility] Start: 06-04-2025 End: 06-04-2025 Patient encounter procedure JOSEPHINE WALTER BAR FINISH OPERATOR-SINK MAKER [facility] Start: 06-01-2025 End: 06-01-2025 Telephone encounter Kobi Garsia PA-C Work Phone: Pain Management Comment on above: Medication Problem Start: 05-26-2025 End: 05-27-2025 Telephone encounter Newton Shine MD Work Phone: [facility] Start: 05-24-2025 End: 05-28-2025 ambulatory JOSEPHINE WALTER APRN-SINK MAKER Facility:[facility] Start: 05-24-2025 End: 05-28-2025 Outreach Lab JOSEPHINE WALTER APRN-SINK MAKER [facility] Start: 05-20-2025 End: 05-20-2025 ambulatory NEWTON SHINE Facility:[id number] Start: 05-19-2025 End: 05-20-2025 Telephone encounter Newton Shine MD Work Phone: Pain Management Comment on above: Patient Update Start: 05-18-2025 End: 05-18-2025 E-mail encounter from caregiver Newton Shine MD Work Phone: Pain Management Start: 05-18-2025 End: 05-18-2025 Telephone encounter Kobi Garsia PA-C Work Phone: Pain Management Start: 05-18-2025 End: 05-18-2025 Office outpatient visit 40 minutes Kobi Garsia PA-C Work Phone: Pain Management Comment on above: Lumbar radiculopathy (Primary Dx); Cervical spondylosis with myelopathy; Chronic right shoulder pain; Adhesive capsulitis of right shoulder; Myofascial pain; Cervical postlaminectomy syndrome; Lumbar spondylosis; Lumbosacral spondylosis without myelopathy; Lumbar spondylolysis; Spondylolisthesis of lumbar region Start: 05-18-2025 End: 05-18-2025 ambulatory Newton Shine MD Work Phone: Pain Management Comment on above: pre procedure messag e Start: 04-27-2025 End: 04-27-2025 ambulatory JOSEPHINE WALTER APRN-SINK MAKER Facility:[facility] Start: 04-27-2025 End: 04-27-2025 Patient encounter procedure JOSEPHINE WALTER APRN-SINK MAKER [facility] Start: 04-01-2025 End: 04-01-2025 Patient encounter procedure Susanne CHOC -[facility] Work Phone: Start: 04-01-2025 End: 04-01-2025 ambulatory Josephine Walter PATHOLOGY TECHNOLOGIST-C Work Phone: [facility] Start: 03-25-2025 End: 03-25-2025 Patient encounter procedure Mayank Sheehan MD Work Phone: [facility] Comment on above: Status post cervical spinal fusion (Primary Dx) Start: 03-25-2025 End: 03-25-2025 Telemedicine consultation with patient Mayank Sheehan MD Work Phone: [facility] Start: 03-25-2025 End: 03-25-2025 ambulatory MAYANK SHEEHAN Facility:[id number] Start: 03-10-2025 ambulatory JOSEPHINE WALTER Facility:[facility] Start: 03-10-2025 End: 03-10-2025 Subsequent hospital visit by physician Mri Radio [facility] Wstr (I-Stat/1.5t) Work Phone: Radiology Comment on above: Adverse effect of tr eatment, initial encounter [T88.9XXA] Start: 03-08-2025 End: 03-10-2025 Refill Kobi Garsia PA-C Work Phone: Pain Management Comment on above: Refill Request Start: 03-04-2025 Non-patient / Non-visit Dr. Alejandro benavides MD -[facility] Start: 03-04-2025 End: 03-04-2025 ambulatory Josephine Walter PATHOLOGY TECHNOLOGIST-C Work Phone: [facility] Work Phone: Start: 03-04-2025 End: 03-04-2025 Patient encounter procedure Marlee Araujo PA -[facility] Work Phone: Start: 03-03-2025 End: 03-04-2025 ambulatory Valente Hernandez PT Work Phone: [facility] Comment on above: Chronic right should er pain (Primary Dx); S/P cervical spinal fusion Start: 02-26-2025 End: 02-26-2025 ambulatory Sara Wiseman PT Work Phone: [facility] Comment on above: Chronic right should er pain (Primary Dx); S/P cervical spinal fusion Start: 02-23-2025 End: 02-23-2025 Patient encounter procedure Mayank Sheehan MD Work Phone: [facility] Comment on above: Status post cervical spinal fusion (Primary Dx); Cervical myelopathy (HCC); 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; Adverse effect of treatment, initial encounter; Adhesive capsulitis of right shoulder; Traumatic tear of right rotator cuff, unspecified tear extent, initial encounter; Chronic right shoulder pain Start: 02-23-2025 End: 02-23-2025 ambulatory MAYANK SHEEHAN Facility:[id number] Start: 02-18-2025 ambulatory MAYANK SHEEHAN Facility:[facility] Start: 02-18-2025 End: 02-18-2025 ambulatory MAYANK SHEEHAN Facility:[facility] Start: 02-16-2025 End: 02-16-2025 Office outpatient visit 25 minutes Kobi Garsia PA-C Work Phone: Pain Management Comment on above: Chronic right should er pain (Primary Dx); Cervical spondylosis with myelopathy; Myofascial pain; Adhesive capsulitis of right shoulder; Lumbosacral spondylosis without myelopathy Start: 02-16-2025 End: 02-16-2025 ambulatory KOBI GARSIA Facility:[id number] Start: 02-15-2025 End: 02-15-2025 ambulatory Manuela Liang ENTRY EXAMINER Work Phone: [facility] Comment on above: Chronic right should er pain (Primary Dx); S/P cervical spinal fusion Start: 02-11-2025 End: 02-11-2025 ambulatory Manuela Kascj ENTRY EXAMINER Work Phone: [facility] Comment on above: Chronic right should er pain (Primary Dx); S/P cervical spinal fusion Start: 02-04-2025 End: 02-04-2025 ambulatory Sara Wiseman PT Work Phone: [facility] Comment on above: Chronic right should er pain (Primary Dx); S/P cervical spinal fusion Start: 02-03-2025 End: 04-22-2025 Telephone encounter Claudia Washington PSS MR IMAGING Comment on above: Release Of Medical R ecords (Imaging) Start: 02-02-2025 End: 02-02-2025 Telephone encounter Mayank Sheehan MD Work Phone: [facility] Start: 02-02-2025 End: 02-02-2025 ambulatory Manuela Liang ENTRY EXAMINER Work Phone: [facility] Comment on above: Chronic right should er pain (Primary Dx); S/P cervical spinal fusion Start: 01-29-2025 End: 01-29-2025 Telephone encounter Newton Shine MD Work Phone: Pain Management Comment on above: Patient Update (Pt n ot wanting to leave [facility] PM) Patient Update; Retu rning Patient's Call (Patient post injection concern) Start: 01-28-2025 End: 01-28-2025 Telephone encounter Phillip Pineda LEDESMASINK MAKER Work Phone: [facility] Comment on above: New Patient Evaluati on Start: 01-28-2025 End: 01-28-2025 ambulatory Sara Wiseman PT Work Phone: [facility] Comment on above: Chronic right should er pain (Primary Dx); S/P cervical spinal fusion Start: 01-27-2025 End: 01-27-[address] Andrew Maldonado MD -[facility] Work Phone: Start: 01-27-2025 End: 01-27-2025 ambulatory Andrew Maldonado [place] [place] Start: 01-26-2025 End: 01-26-2025 Patient encounter procedure Marlee Overton MD Work Phone: [facility] Comment on above: Traumatic tear of ri ght rotator cuff, unspecified tear extent, initial encounter (Primary Dx); Adhesive capsulitis of right shoulder Start: 01-26-2025 End: 01-26-2025 ambulatory JOSEPHINE WALTER Facility:[facility] Start: 01-25-2025 End: 01-25-2025 ambulatory MAYANK SHEEHAN Facility:[facility] Start: 01-21-2025 ambulatory MARLEE OVERTON Facility :[facility] Start: 01-19-2025 End: 01-19-2025 Brandin Sheehan MD Work Phone: [facility] Comment on above: Med Change Request Start: 01-19-2025 End: 01-19-2025 Patient encounter procedure Marlee Overton MD Work Phone: [facility] Comment on above: Left shoulder pain, unspecified chronicity (Primary Dx); Traumatic tear of right rotator cuff, unspecified tear extent, initial encounter Start: 01-19-2025 End: 01-19-2025 ambulatory JOSEPHINE WALTER Facility:[facility] Start: 01-13-2025 End: 01-13-2025 ambulatory Sara Wiseman PT Work Phone: [facility] Comment on above: Status post cervical spinal fusion; Chronic right shoulder pain Start: 01-12-2025 End: 01-12-2025 Patient encounter procedure Mayank Sheehan MD Work Phone: [facility] Comment on above: Status post cervical spinal fusion (Primary Dx); Chronic right shoulder pain Start: 01-12-2025 End: 01-12-2025 Subsequent hospital visit by physician [facility] Comment on above: Status post cervical spinal fusion [Z98.1] Start: 01-12-2025 End: 01-12-2025 ambulatory MAYANK T CONRY Facility:[id number] Start: 01-12-2025 ambulatory MAYANK T CONRY Facility :[id number] Start: 01-12-2025 End: 01-12-2025 Subsequent hospital visit by physician [facility] Comment on above: S/P cervical spinal fusion [Z98.1] Start: 01-07-2025 End: 01-07-2025 ambulatory JOSEPHINE WALTER Facility:[facility] Start: 01-06-2025 End: 01-07-2025 Telephone encounter Mayank Sheehan MD Work Phone: [facility] Comment on above: Patient Question Start: 12-15-2024 End: 12-15-2024 Patient encounter procedure Mayank Sheehan MD Work Phone: [facility] Comment on above: Status post cervical spinal fusion (Primary Dx); Cervical myelopathy (HCC) Start: 12-15-2024 End: 12-15-2024 ambulatory MAYANK SHEEHAN Facility:[id number] Start: 12-15-2024 End: 12-15-2024 Subsequent hospital visit by physician Xr [facility] Comment on above: S/P cervical spinal fusion [Z98.1] Start: 12-09-2024 End: 12-09-2024 Telephone encounter Mayank Sheehan MD Work Phone: [facility] Comment on above: Refill Request Start: 12-07-2024 End: 12-08-2024 Refill Newton Shine MD Work Phone: Pain Management Comment on above: Refill Request Start: 12-02-2024 Patient encounter status Newton Shine MD Work Phone: [facility] Work Phone: Start: 11-25-2024 End: 11-25-2024 Telephone encounter Mayank Sheehan MD Work Phone: [facility] Comment on above: Preparations For Rafa noel (Medical clearance) Start: 11-24-2024 End: 11-24-2024 Telephone encounter Mayank Sheehan MD Work Phone: [facility] Comment on above: Preparations For Rafa noel Start: 11-17-2024 End: 11-17-2024 Patient encounter procedure Marlee GORDON -[facility] Work Phone: Start: 11-17-2024 End: 11-17-2024 ambulatory Josephine Walter NP Facility:[facility] Start: 11-13-2024 End: 11-13-2024 Telephone encounter Rene Day APRN.SINK MAKER Work Phone: Pain Management Start: 11-09-2024 End: 11-09-2024 Office outpatient new 45 minutes [place] [address] Work Phone: Pre Anesthesia Comment on above: Preop testing (Prima ry Dx); Postprocedural hypoinsulinemia; Unspecified abnormalities of breathing; Cervical myelopathy (HCC); Spinal stenosis, cervical region; Type 2 diabetes mellitus without complication, without long-term current use of insulin (HCC); Gastroesophageal reflux disease, unspecified whether esophagitis present; Dysphagia, unspecified type; Unilateral vocal cord paralysis; Coronary artery disease involving diomede coronary artery of diomede heart without angina pectoris; PAD (peripheral artery disease) (HCC); Hypertension, unspecified type; Hyperlipidemia, unspecified hyperlipidemia type Start: 11-09-2024 End: 11-09-2024 Patient encounter status [facility] Work Phone: [facility] Work Phone: Start: 11-09-2024 End: 11-09-2024 ambulatory JOSEPHINE WALTER Facility:[id number] Start: 11-09-2024 Encounter for other preprocedural examination JOSEPHINE [facility] Start: 11-04-2024 End: 11-12-2024 Telephone encounter Yoly Parr RN Pre Anesthesia Comment on above: Appointment (No show ) Start: 11-04-2024 End: 11-04-2024 ambulatory MAYANK SHEEHAN Facility:[facility] Start: 11-02-2024 End: 11-02-2024 ambulatory Josephine Walter NP Facility:[facility] Start: 10-30-2024 End: 10-30-2024 Telephone encounter Mayank Sheehan MD Work Phone: [facility] Comment on above: Preparations For Rafa noel Start: 10-28-2024 End: 10-28-2024 Telephone encounter Mayank Sheehan MD Work Phone: [facility] Start: 10-27-2024 End: 10-27-2024 Patient encounter procedure Mayank Sheehan MD Work Phone: [facility] Comment on above: Cervical myelopathy (HCC) (Primary Dx); 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; Spinal stenosis of cervical region Start: 10-27-2024 End: 10-27-2024 ambulatory MAYANK SHEEHAN Facility:[id number] Start: 10-20-2024 End: 10-20-2024 ambulatory MAYANK ABEBEDIDIER Facility:[facility] Start: 10-20-2024 End: 10-20-2024 Subsequent hospital visit by physician Dionna [facility] Wstr (I-Stat) Work Phone: Cat Scan Comment on above: Spinal stenosis of c ervical region [M48.02] Start: 10-19-2024 ambulatory Varinder Rendon Facility:[facility] Start: 10-17-2024 End: 10-17-2024 ambulatory Varinder [facility] Facility:[facility] Start: 10-14-2024 End: 10-15-2024 ambulatory [facility] Facility:[facility] Start: 10-13-2024 End: 10-14-2024 [facility] Start: 10-09-2024 End: 10-09-2024 Patient encounter procedure Mayank Sheehan MD Work Phone: [facility] Comment on above: Cervical myelopathy (HCC) (Primary Dx); 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; Spinal stenosis of cervical region Start: 10-09-2024 End: 10-09-2024 Telemedicine consultation with patient Mayank Sheehan MD Work Phone: [facility] Start: 10-09-2024 End: 10-09-2024 ambulatory MAYANK SHEEHAN Facility:[id number] Start: 10-01-2024 End: 10-05-2024 Admission to same day surgery center Newton Shine MD Work Phone: Pain Management Comment on above: Re: Injections/Surge ry Start: 10-01-2024 End: 10-05-2024 E-mail encounter from caregiver Newton Shine MD Work Phone: Pain Management Start: 10-01-2024 End: 10-01-2024 ambulatory Varinder Rendon Facility:[facility] Start: 10-01-2024 End: 10-01-2024 ambulatory Varinder [facility] Facility:[facility] Start: 09-28-2024 End: 09-28-2024 Office outpatient new 45 minutes Newton Shine MD Work Phone: Pain Management Comment on above: Lumbosacral spondylo sis without myelopathy (Primary Dx); Cervical spondylosis with myelopathy Start: 09-28-2024 End: 09-28-2024 ambulatory NEWTON SHINE Facility:[id number] Start: 09-21-2024 End: 09-21-2024 ambulatory MAYANK SHEEHAN Facility:[facility] Start: 09-21-2024 End: 09-21-2024 Subsequent hospital visit by physician Mri Radio [facility] Wstr (I-Stat/1.5t) Work Phone: Radiology Comment on above: Spinal stenosis of c ervical region [M48.02] Start: 09-21-2024 End: 09-21-2024 ambulatory Eric Casey Facility:[facility] Start: 09-16-2024 End: 09-16-2024 ambulatory Josephine Walter NP [place] Start: 09-11-2024 End: 09-11-2024 Telephone encounter Mayank Sheehan MD Work Phone: [facility] Comment on above: Patient Update Start: 09-08-2024 End: 09-08-2024 Subsequent hospital visit by physician Xr [facility] Comment on above: Cervical myelopathy (HCC) [G95.9] Start: 09-08-2024 End: 09-08-2024 Patient encounter procedure Mayank Sheehan MD Work Phone: [facility] Comment on above: Cervical myelopathy (HCC) (Primary Dx); Spinal stenosis of lumbar region with neurogenic claudication; Spinal stenosis of cervical region Start: 09-08-2024 End: 09-08-2024 ambulatory MAYANK SHEEHAN Facility:[id number] Start: 09-04-2024 End: 09-04-2024 ambulatory MAYANK ABEBEDIDIER Facility:[facility] Start: 09-04-2024 End: 09-04-2024 Subsequent hospital visit by physician Xr [facility] Vickie Work Phone: Radiology Comment on above: Low back pain, unspe cified back pain laterality, unspecified chronicity, unspecified whether sciatica present [M54.50] Start: 09-03-2024 End: 09-03-2024 Telephone encounter Mayank Sheehan MD Work Phone: [facility] Comment on above: Appointment Start: 09-02-2024 ambulatory Alejandro Mariano Facility:[facility] Start: 09-02-2024 End: 09-02-2024 ambulatory [facility] Facility:[facility] Start: 08-23-2024 End: 08-23-2024 Emergency department patient visit JOSEPHINE WALTER Facility:[id number] Start: 08-19-2024 ambulatory Varinder eRndon Facility:[facility] Start: 08-19-2024 End: 08-19-2024 ambulatory Andrew Maldonado Facility:[facility] Start: 07-22-2024 End: 07-22-2024 ambulatory JOSEPHINE WALTER BAR FINISH OPERATOR-SINK MAKER Facility:[facility] Start: 07-22-2024 End: 07-22-2024 Patient encounter procedure JOSEPHINE WALTER BAR FINISH OPERATOR-SINK MAKER [facility] Start: 06-03-2024 ambulatory JOSEPHINE WALTER Facil ity:[facility] Start: 06-03-2024 End: 06-07-2024 Outreach Lab JOSEPHINE WALTER BAR FINISH OPERATOR-SINK MAKER [facility] Start: 05-13-2024 ambulatory VARSHA MALONE MD Faci lity:[facility] Start: 04-01-2024 ambulatory VARSHA MALONE MD Faci lity:[facility] Start: 03-24-2024 End: 03-24-2024 Patient encounter procedure Sanjay GORDON Work Phone: [facility] Comment on above: Procedure not raven d out (Primary Dx) Start: 03-16-2024 End: 03-20-2024 ambulatory JOSEPHINE WALTER Facility:[facility] Start: 03-16-2024 End: 03-20-2024 Outreach Lab JOSEPHINE WALTER BAR FINISH OPERATOR-SINK MAKER [facility] Start: 08-22-2023 End: 08-22-2023 Emergency department patient visit Physician [facility] Start: 10-24-2021 End: 10-24-2021 Medication Refill/Order Lazara DAMON MD Work Phone: [place] [employer] Start: 07-27-2020 End: 07-27-2020 Medication Refill/Order Lazara DAMON MD Work Phone: [place] [employer]. Start: 07-04-2020 End: 07-05-2020 Medication Refill/Order Lazara DAMON MD Work Phone: [employer] [facility] [employer] Start: 06-17-2020 End: 06-17-2020 Historical Summary Lazara DAMON MD Work Phone: [place] [employer] [facility] [employer]. Start: 06-17-2020 End: 06-17-2020 Office outpatient visit 25 minutes Lazara DAMON MD Work Phone: [place] [employer]. Start: 05-21-2020 End: 05-21-2020 Patient encounter procedure [facility] Start: 05-20-2020 End: 05-20-2020 Office outpatient visit 25 minutes Lazara DAMON MD Work Phone: [place] [employer] [facility] [employer] Start: 08-03-2019 End: 08-03-2019 Lab Only Lazara DAMON MD Work Phone: [facility] [employer] Start: 06-23-2019 End: 06-23-2019 Historical Summary Lazara DAMON MD Work Phone: [facility] [employer] Start: 06-18-2019 End: 06-19-2019 Results Review Lazara DAMON MD Work Phone: [place] [employer] [facility] [employer] Start: 06-17-2019 End: 06-17-2019 Patient encounter procedure ALEJANDRO DAMON [facility] Start: 06-17-2019 End: 06-17-2019 Medication Refill/Order Lazara DAMON MD Work Phone: [employer] Start: 06-17-2019 End: 06-17-2019 Office outpatient visit 25 minutes Lazara DAMON MD Work Phone: [employer] Start: 05-20-2019 End: 05-20-2019 Results Review Lazara DAMON MD Work Phone: [employer] Start: 04-30-2019 End: 04-30-2019 Historical Summary Lazara DAMON MD Work Phone: [employer] Start: 04-27-2019 End: 04-27-2019 Lab Only Lazara DAMON MD Work Phone: [facility] [employer] Start: 04-27-2019 End: 04-27-2019 Medication Refill/Order Lazara DAMON MD Work Phone: [employer]. Start: 01-30-2019 End: 01-30-2019 Office outpatient visit 25 minutes Lazara DAMON MD Work Phone: [employer]. Start: 12-05-2018 End: 12-05-2018 Office outpatient visit 25 minutes Lazara DAMON MD Work Phone: [place]. Start: 11-26-2018 End: 11-26-2018 Lab Only Lazara DAMON MD Work Phone: [employer]. Start: 11-03-2018 End: 11-03-2018 Medication Refill/Order Lazara DAMON MD Work Phone: [employer]. Start: 11-03-2018 End: 11-03-2018 Office outpatient visit 15 minutes Lazara DAMON MD [facility] Start: 09-19-2018 End: 09-19-2018 Office outpatient visit 15 minutes Lazara DAMON MD Work Phone[facility] Start: 09-05-2018 End: 09-05-2018 Medication Refill/Order Lazara DAMON MD Work Phone: [employer] [employer] Start: 09-03-2018 End: 09-04-2018 Results Review Lazara DAMON MD Work Phone: [employer] Start: 09-03-2018 End: 09-03-2018 Office outpatient visit 25 minutes Lazara DAMON MD Work Phone: [employer] Start: 08-13-2018 End: 08-13-2018 Historical Summary Lazara DAMON MD Work Phone: [employer] Start: 07-15-2018 End: 07-15-2018 Office outpatient visit 25 minutes Lazara DAMON MD Work Phone: [employer] Start: 07-07-2018 End: 07-07-2018 Medication Refill/Order Lazara DAMON MD Work Phone: [employer] Start: 07-07-2018 End: 07-07-2018 Office outpatient visit 25 minutes Lazara DAMON MD Work Phone: [employer] Start: 07-07-2018 End: 07-07-2018 Historical Summary Lazara DAMON MD Work Phone: [employer] Procedures Date Procedure Procedure Detail Performing Clinician Start: 06-11-2025 Mri spinal canal lum bar w/o contrast material Kobi Garsia PA-C Work Phone: Start: 03-10-2025 Ct cervical spine w/ o contrast material Mayank Sheehan MD Work Phone: Start: 03-10-2025 Mri spinal canal cer vical w/o contrast samuel Sheehan MD Work Phone: Start: 01-26-2025 Arthrocentesis aspir &/inj major jt/bursa w/o us Marlee Overton MD Work Phone: Start: 01-26-2025 Follow-up visit Follow Up MARLEE OVERTON Start: 01-19-2025 Radex shoulder compl ete minimum 2 views Marlee Overton MD Work Phone: Start: 11-30-2024 History of coronary artery bypass grafting History of coronary artery bypass graft Newton Shine MD Work Phone: Start: 11-04-2024 Antibody screen MAYANK SHEEHAN Comment on above: Order Comment: Speci men Type: BLOOD SPECIMENOrdering Facility: [facility] Address: [address] [place] [address] Performed By: #### T [id number] ####CC MAIN BLOOD BANKCLIA [id number] [address] OF [place] Start: 10-20-2024 Ct cervical spine w/ o contrast material Mayank Sheehan MD Work Phone: Start: 09-21-2024 Mri spinal canal cer vical w/o contrast samuel Sheehan MD Work Phone: Start: 09-02-2024 Angiography JOSEPHINE WALTER APRN-SINK MAKER Comment on above: had a stent placed i n iliac artery Start: 09-02-2024 Iliac artery stent NANDO WALTER APRN-SINK MAKER Start: 06-17-2020 End: 06-17-2020 Collj & interpj physiol data min 30 min ea 30 d J ALEJANDRO DAMON MD Work Phone: Start: 06-17-2020 End: 06-17-2020 Dischrg meds reconciled w/current med list JAYESH WALTER Start: 06-17-2020 End: 06-17-2020 Examination of retina JAYESH WALTER Comment on above: No DR Martine Benítez Start: 06-01-2020 End: 06-01-2020 Aortocoronary bypass of three coronary arteries JAYESH WALTER Comment on above: Shay. Start: 06-01-2020 Coronary artery bypa ss grafts x 3 JOSEPHINE WALTER BAR FINISH OPERATORWHMSOFT Comment on above: 3-vessel coronary ar edwina bypass grafting using left internal mammary artery to the left anterior descending coronary artery with reverse saphenous vein, aortocoronary sequential graft [id number] to the posterior descending coronary artery and end-to-side to the distal obtuse marginal coronary artery. Start: 05-27-2020 Cardiac catheterization JOSEPHINE JOSE ANGEL BAR FINISH OPERATORWHMSOFT Comment on above: SUMMARY: 1. Left ventricle: Systolic function is normal. The estimated ejection fraction is 55-60%. 2. Left main: Mid-vessel lesion: There is a 70% stenosis. 3. Left circumflex: Mid-vessel lesion: There is a 70% stenosis. 4. Right coronary: Proximal vessel lesion: There is an 80% restenosis in the previous stent. IMPRESSIONS: Multiple vessel coronary artery disease. Start: 05-20-2020 End: 05-20-2020 Collj & interpj physiol data min 30 min ea 30 d J ALEJANDRO DAMON MD Work Phone: Start: 05-20-2020 End: 05-20-2020 Urinary Incontinence JAYESH JOSE ANGEL Comment on above: Abnormal. incont if coughs or sneezes Start: 04-28-2020 Cardiovascular stres s testing JOSEPHINE WALTER BAR FINISH OPERATORWHMSOFT Start: 11-16-2019 Lipid 1996 panel - S bronson or Plasma Sanjay GORDON Work Phone: Start: 09-08-2019 End: 09-08-2019 Percutaneous transluminal coronary angioplasty JAYESH JOSE ANGEL Comment on above: stent x1 (in [facility] ) Start: 12-10-2019 Stented coronary art tasha (finding) JOSEPHINE WALTER BAR FINISH OPERATOR-SINK MAKER Start: 06-17-2019 Urinalysis ALEJANDRO Madsen Comment on above: Result Comment: URIN ALYSIS Performed By: #### [id number] #### [facility],[address] [place] [address] Start: 06-17-2019 End: 06-17-2019 Collj & interpj physiol data min 30 min ea 30 d Lazara DAMON MD Work Phone: Start: 06-17-2019 End: 06-17-2019 Dischrg meds reconciled w/current med list Lazara DAMON MD Work Phone: Start: 04-27-2019 End: 04-27-2019 Collj & interpj physiol data min 30 min ea 30 d DEMETRA CLARK Start: 01-30-2019 End: 01-30-2019 Foot examination performed Lazara DAMON MD Work Phone: Start: 12-05-2018 End: 12-05-2018 Dischrg meds reconciled w/current med list Lazara DAMON MD Work Phone: Start: 11-03-2018 End: 11-03-2018 Dischrg meds reconciled w/current med list Cale CARRILLO MD Work Phone: Start: 09-19-2018 End: 09-19-2018 Dischrg meds reconciled w/current med list JEYSON BLACK MD Work Phone: Start: 09-30-2003 End: 09-30-2003 fused discs in neck JAYESH WALTER Gallbladder structur e (body structure) JOSEPHINE WALTER BAR FINISH OPERATOR-SINK MAKER H/O: surgery H/O neck surgery Josephine douglas PATHOLOGY TECHNOLOGIST-C Work Phone: Comment on above: 11/2024 History of coronary artery bypass grafting Hx of CABG Josephine Walter PATHOLOGY TECHNOLOGIST-C Work Phone: Comment on above: 06/01/2020 left international freight forwarder al mammary artery to the left anterior descending coronary artery with reverse saphenous vein, aortocoronary sequential graft [id number] to the posterior descending coronary artery and end-to-side to the distal obtuse marginal coronary artery History of coronary artery bypass grafting Hx of CABG Dr. Andrew Maldonado MD History of coronary artery bypass grafting Hx of CABG Susanne Rabago PATHOLOGY TECHNOLOGIST-C History of coronary artery bypass grafting Hx of CABG JOSEPHINE WALTER BAR FINISH OPERATOR-SINK MAKER Hysterectomy JOSEPHINE SOLIS BAR FINISH OPERATOR-SINK MAKER Knee meniscus repair JAYESH WALTER Comment on above: Left. about 2000. Neck structure (body structure) JOSEPHINE WALTER BAR FINISH OPERATOR-SINK MAKER Total hysterectomy JAYESH DOUGLAS Comment on above: uncertain dates, not for cancer. Plan of Treatment Date Care Activity Detail Author Start: 11-09-2027 Diabetes Screening Diabetes Screening [facility] Start: 11-04-2027 Diabetes Screening Diabetes Screening [facility] Start: 02-16-2026 BP Controlled (<130/80) BP Controlled (<130/80) [facility] Start: 01-07-2026 Hepatitis B screening Urine Albumin:Creatinine Ratio [facility] Start: 01-07-2026 Hepatitis B surface antibody level LDL Cholesterol [facility] Start: 11-25-2025 End: 11-25-2025 Patient encounter procedure 11/25/2025 8:30 AM EST Office Visit [facility] [address] [address] Mayank Sheehan MD [address] [place] [id number] 9 month follow up [facility] Comment on above: 9 month follow up Start: 08-19-2025 End: 08-19-2025 Patient encounter procedure 08/19/2025 10:00 AM EST Office Visit Pain Management [address] [place] [address] Kobi Garsia PA-C [address] [place] [address] Follow Up Pain Management Comment on above: Follow Up Start: 08-04-2025 Polysomnography [facility] Start: 08-04-2025 End: 08-04-2025 Patient encounter procedure [facility] Work Phone: Start: 07-29-2025 End: 07-29-2025 Admission to same day surgery center [facility] Comment on above: LUMBAR EPIDURAL BLOCK W/INJECTION NON NE UROLYTIC W/IMAGE GUIDANCE L5-S1 Start: 07-29-2025 End: 07-29-2025 Njx dx/ther sbst intrlmnr lmbr/sac w/img gdn LUMBAR EPIDURAL BLOCK W/INJECTION NON NEUROLYTIC W/IMAGE GUIDANCE Lumbosacral spondylosis with radiculopathy 07/29/2025 8:00 AM EDT MR PAIN Start: 07-29-2025 Subsequent hospital visit by physician 07/29/2025 8:00 AM EDT Hospital Encounter [facility] [address] [place] [address] Newton Shine MD [address] [place] [address] Lumbosacral spondylosis with radiculopathy [M47.27] [facility] Comment on above: Lumbosacral spondylosis with radiculopat hy [M47.27] Start: 07-19-2025 Anchoring of tendon of biceps REPAIR BICEPS TENDON [facility] Start: 07-19-2025 Anes arthrs humeral h/n strnclav & shoulder nos ANESTH SURGERY OF SHOULDER [facility] Start: 07-19-2025 Arthroscopy of shoulder with biceps tenodesis FARRAH ARTHRS SRG RT8TR CUF RPR [facility] Start: 07-19-2025 Injection aa&/strd other peripheral nerve/branch NJX AA&/STRD OTHER PN/BRANCH [facility] Start: 07-19-2025 Surgical manipulation of shoulder joint MNPJ ANES FARRAH JT FIXJ APRATS [facility] Start: 07-19-2025 Application of ice collar, cap or bag [facility] Start: 07-19-2025 Catheterization of vein [facility] Start: 07-19-2025 Following clinical pathway protocol [facility] Start: 07-19-2025 Patient discharge [facility] Start: 07-19-2025 Procedure discontinued [facility] Start: 07-19-2025 Taking patient vital signs [facility] Start: 07-19-2025 Vital signs measurements [facility] Start: 07-19-2025 [facility] Start: 07-19-2025 Medication education [facility] Start: 06-11-2025 End: 06-11-2025 Patient encounter procedure 06/11/2025 8:00 AM EDT Appointment Radiology [address] [place] [address] Spondylolisthesis of lumbar region [M43.16] MRI LUMBAR SPINE WO [facility] Comment on above: Spondylolisthesis of lumbar region [M43. 16] MRI LUMBAR SPINE WO [facility] Start: 05-31-2025 Influenza vaccination [facility] Start: 05-20-2025 End: 05-20-2025 Admission to same day surgery center [facility] Comment on above: BLOCK SUPRASCAPULAR nerve block Start: 05-20-2025 End: 05-20-2025 Injection aa&/strd suprascapular nerve MR PAIN Start: 05-20-2025 Subsequent hospital visit by physician [facility] Comment on above: Chronic right shoulder pain [M25.511, G8 9.29] Start: 05-18-2025 End: 05-18-2025 Patient encounter procedure 05/18/2025 9:30 AM EDT Office Visit Pain Management [address] [place] [address] Kobi Garsia PA-C [address] [place] [address] 3 month follow up Pain Management Comment on above: 3 month follow up Start: 05-09-2025 Hemoglobin A1c measurement HbA1C [facility] Start: 04-08-2025 Hemoglobin A1c measurement HbA1C [facility] Start: 03-25-2025 End: 03-25-2025 Patient encounter procedure 03/25/2025 11:15 AM EDT [facility] [address] [place] [address] [place] [address] Mayank Sheehan MD [address] [facility] [address] [place] [address] results [facility] Comment on above: MRI CT results Start: 03-25-2025 End: 03-25-2025 ambulatory 03/25/2025 9:15 AM EDT OT/PT/Speech Visit [facility] [address] [place] [address] Sara Wiseman, PT [address] [place] [address] Z98.1 (ICD-10-CM) - Status post cervical spinal fusion [facility] Comment on above: Z98.1 (ICD-10-CM) - Status post cervical spinal fusion Start: 03-22-2025 End: 03-22-2025 ambulatory 03/22/2025 9:00 AM EDT OT/PT/Speech Visit [facility] [address] [place] [address] Valente Hernandez, PT [address] [facility] [place] [address] Z98.1 (ICD-10-CM) - Status post cervical spinal fusion [facility] Comment on above: Z98.1 (ICD-10-CM) - Status post cervical spinal fusion Start: 03-19-2025 End: 03-19-2025 ambulatory 03/19/2025 11:15 AM EDT OT/PT/Speech Visit [facility] [address] [place] [address] Nisreen Wisemannt, PT [address] [place] [address] Z98.1 (ICD-10-CM) - Status post cervical spinal fusion [facility] Comment on above: Z98.1 (ICD-10-CM) - Status post cervical spinal fusion Start: 03-15-2025 End: 03-15-2025 Patient encounter procedure 03/15/2025 4:00 PM EDT Office Visit Pain Management [address] [place] [address] Newton Shine MD [address] [place] [address] follow up Pain Management Comment on above: follow up Start: 03-15-2025 End: 03-15-2025 ambulatory 03/15/2025 11:30 AM EDT OT/PT/Speech Visit [facility] [address] [place] [address] Valente Hernandez, PT [address] [place] [address] Z98.1 (ICD-10-CM) - Status post cervical spinal fusion [facility] Comment on above: Z98.1 (ICD-10-CM) - Status post cervical spinal fusion Start: 03-11-2025 End: 03-11-2025 ambulatory 03/11/2025 8:00 AM EDT OT/PT/Speech Visit [facility] [address] [place] [address] Manuela Liang, ENTRY EXAMINER [address] [facility] [address] Z98.1 (ICD-10-CM) - Status post cervical spinal fusion [facility] Comment on above: Z98.1 (ICD-10-CM) - Status post cervical spinal fusion Start: 03-10-2025 End: 03-10-2025 Patient encounter procedure Radiology Comment on above: MRI Cervial WO ICVOn CT Cervial Start: 03-09-2025 End: 03-09-2025 Patient encounter procedure 03/09/2025 2:45 PM EDT Office Visit [facility] [address] [place] [address] Marlee Overton MD [address] [phone] rt shoulder [facility] Comment on above: rt shoulder Start: 03-08-2025 End: 03-08-2025 ambulatory 03/08/2025 9:00 AM EDT OT/PT/Speech Visit [facility] [address] [place] [address] Valente Hernandez, PT [address] [place] [address] Z98.1 (ICD-10-CM) - Status post cervical spinal fusion [facility] Comment on above: Z98.1 (ICD-10-CM) - Status post cervical spinal fusion Start: 03-03-2025 End: 03-03-2025 ambulatory 03/03/2025 7:45 AM EDT OT/PT/Speech Visit [facility] [address] [place] [address] Valente Hernandez, PT [address] [facility] [place] [address] Z98.1 (ICD-10-CM) - Status post cervical spinal fusion [facility] Comment on above: Z98.1 (ICD-10-CM) - Status post cervical spinal fusion Start: 02-26-2025 End: 02-26-2025 ambulatory 02/26/2025 10:30 AM EDT OT/PT/Speech Visit [facility] [address] [place] [address] Sara Wiseman, PT [address] [place] [address] Status post cervical spinal fusion [Z98.1] [facility] Comment on above: Status post cervical spinal fusion [Z98. 1] Start: 02-25-2025 End: 02-25-2025 ambulatory 02/25/2025 9:15 AM EDT OT/PT/Speech Visit [facility] [address] [place] [address] Sara Wiseman, PT [address] [place] [address] Status post cervical spinal fusion [Z98.1] [facility] Comment on above: Status post cervical spinal fusion [Z98. 1] Start: 02-23-2025 End: 02-23-2025 Patient encounter procedure 02/23/2025 9:30 AM EDT Office Visit [facility] [address] [place] [address] Mayank Sheehan MD [address] [place] [phone] POSTOP C4-6 PSF, C5 laminectomy 6-week FU [facility] Comment on above: POSTOP C4-6 PSF, C5 laminectomy 6-week F U Start: 02-18-2025 End: 02-18-2025 ambulatory 02/18/2025 10:00 AM EDT OT/PT/Speech Visit [facility] [address] [place] [address] Sara Wiseman, PT [address] [place] [address] Status post cervical spinal fusion [Z98.1] [facility] Comment on above: Status post cervical spinal fusion [Z98. 1] Start: 02-16-2025 End: 02-16-2025 Patient encounter procedure 02/16/2025 8:30 AM EDT Office Visit Pain Management [address] [place] [address] Kobi Garsia PA-C [address] [place] [address] follow up Pain Management Comment on above: follow up Start: 02-15-2025 End: 02-15-2025 ambulatory 02/15/2025 8:45 AM EDT OT/PT/Speech Visit [facility] [address] [place] [address] Manuela Liang, ENTRY EXAMINER [address] [place] [address] Status post cervical spinal fusion [Z98.1] [facility] Comment on above: Status post cervical spinal fusion [Z98. 1] Start: 02-11-2025 End: 02-11-2025 ambulatory 02/11/2025 8:45 AM EDT OT/PT/Speech Visit [facility] [address] [place] [address] Manuela Liang, ENTRY EXAMINER [address] [place] [address] Status post cervical spinal fusion [Z98.1] [facility] Comment on above: Status post cervical spinal fusion [Z98. 1] Start: 02-09-2025 End: 02-09-2025 ambulatory 02/09/2025 9:30 AM EDT OT/PT/Speech Visit [facility] [address] [place] [address] Manuela Liang, ENTRY EXAMINER [address] [place] [address] Status post cervical spinal fusion [Z98.1] [facility] Comment on above: Status post cervical spinal fusion [Z98. 1] Start: 02-04-2025 End: 02-04-2025 ambulatory 02/04/2025 10:00 AM EDT OT/PT/Speech Visit [facility] [address] [place] [address] Sara Wiseman, PT [address] [place] [address] Status post cervical spinal fusion [Z98.1] [facility] Comment on above: Status post cervical spinal fusion [Z98. 1] Start: 02-02-2025 End: 02-02-2025 ambulatory 02/02/2025 9:30 AM EDT OT/PT/Speech Visit [facility] [address] [place] [address] Manuela Liang, ENTRY EXAMINER [address] [place] [address] Status post cervical spinal fusion [Z98.1] [facility] Comment on above: Status post cervical spinal fusion [Z98. 1] Start: 02-01-2025 End: 02-01-2025 Patient encounter procedure 02/01/2025 10:30 AM EDT Office Visit [facility] [address] [place] [address] Marlee Overton MD [address] [facility] [address] [place], [place] [phone] B/L shoulder pain - referred by Dr. Mayank Sheehan [facility] Comment on above: B/L shoulder pain - referred by Dr. Claudia Sheehan Start: 01-28-2025 End: 01-28-2025 ambulatory 01/28/2025 10:45 AM EDT OT/PT/Speech Visit [facility] [address] [place] [address] Sara Wiseman, PT [address] [place] [address] Status post cervical spinal fusion [Z98.1] [facility] Comment on above: Status post cervical spinal fusion [Z98. 1] Start: 01-26-2025 End: 01-26-2025 Patient encounter procedure 01/26/2025 11:00 AM EDT Office Visit [facility] [address] [place] [address] Marlee Overton MD [address] [place], [place] [id number] FU MRI R SHOULDER [facility]TH [facility] Comment on above: FU MRI R SHOULDER Start: 01-25-2025 End: 01-25-2025 ambulatory 01/25/2025 11:00 AM EDT OT/PT/Speech Visit [facility] [address] [place] [address] Manuela Liang, ENTRY EXAMINER [address] [place] [address] Status post cervical spinal fusion [Z98.1] [facility] Comment on above: Status post cervical spinal fusion [Z98. 1] Start: 01-21-2025 Subsequent hospital visit by physician 01/21/2025 8:00 AM EDT Hospital Encounter Radiology [address] [place] [address] Traumatic tear of right rotator cuff, unspecified tear extent, initial encounter [S46.011A] Radiology Comment on above: Traumatic tear of right rotator cuff, un specified tear extent, initial encounter [S46.011A] Start: 01-13-2025 End: 01-13-2025 ambulatory 01/13/2025 9:00 AM EDT OT/PT/Speech Visit [facility] [address] [place] [address] Sara Wiseman, PT [address] [place] [address] Status post cervical spinal fusion [Z98.1] [facility] Comment on above: Status post cervical spinal fusion [Z98. 1] Start: 01-12-2025 End: 01-12-2025 Patient encounter procedure 01/12/2025 9:45 AM EDT Office Visit [facility] [address] [facility] [address] [place] [address] Mayank Sheehan MD [address] [place] [address] POSTOP C4-6 PSF, C5 laminectomy [facility] Comment on above: POSTOP C4-6 PSF, C5 laminectomy Start: 12-15-2024 End: 12-15-2024 Patient encounter procedure 12/15/2024 10:30 AM EDT Office Visit [facility] [address] [place] [address] Mayank Sheehan MD [address] [place] [address] s/p C4-6 PSF, C5 laminectomy 11/30/24 [facility] Comment on above: s/p C4-6 PSF, C5 laminectomy 11/30/24 Start: 11-30-2024 End: 11-30-2024 Admission to same day surgery center 11/30/2024 2:50 PM EST - 11/30/2024 7:25 PM EST Surgery [facility] [address] [place] [address] Mayank Sheehan MD [address] [place] [address] ARTHRODESIS CERVICAL POSTERIOR, BELOW C2 1ST SINGLE LEVEL [facility] Comment on above: ARTHRODESIS CERVICAL POSTERIOR, BELOW C2 1ST SINGLE LEVEL Start: 11-30-2024 End: 11-30-2024 Arthrodesis posterior/posterolateral ea addl ARTHRODESIS CERVICAL BELOW C2, 2ND CERVICAL LEVEL Cervical myelopathy (HCC) 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 Spinal stenosis in cervical region 11/30/2024 2:50 PM EST MR OR Start: 11-30-2024 End: 11-30-2024 Arthrodesis pst/pstlat cervical belw c2 sgm ARTHRODESIS CERVICAL POSTERIOR, BELOW C2 1ST SINGLE LEVEL Cervical myelopathy (HCC) 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 Spinal stenosis in cervical region 11/30/2024 2:50 PM EST MR OR Start: 11-30-2024 End: 11-30-2024 Laminectomy w/o ffd > 2 vert seg cervical LAMINECTOMY CERVICAL POSTERIOR LEVEL 3 Cervical myelopathy (HCC) 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 Spinal stenosis in cervical region 11/30/2024 2:50 PM EST MR OR Start: 11-30-2024 Subsequent hospital visit by physician 11/30/2024 2:50 PM EST Hospital Encounter [facility] [address] [place] [address] [place] [address] Mayank Sheehan MD [address] [place] [address] Cervical myelopathy (HCC) [G95.9], 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 [M50.322, Z98.1], Spinal stenosis in cervical region [M48.02] [facility] Comment on above: Cervical myelopathy (HCC) [G95.9], Adjac ent segment disease of cervical spine at C5-C6 level with history of fusion procedure [M50.322, Z98.1], Spinal stenosis in cervical region [M48.02] Start: 11-30-2024 End: 11-30-2024 Transfusion blood/blood components TRANSFUSION BLOOD Cervical myelopathy (HCC) 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 Spinal stenosis in cervical region 11/30/2024 2:50 PM EST MR OR Start: 11-30-2024 End: 11-30-2024 Admission to same day surgery center 11/30/2024 11:15 AM EST - 11/30/2024 3:50 PM EST Surgery [facility] [address] [place] [address] [place] [address] Mayank Sheehan MD [address] [place] [address] ARTHRODESIS CERVICAL POSTERIOR, BELOW C2 1ST SINGLE LEVEL [facility] Comment on above: ARTHRODESIS CERVICAL POSTERIOR, BELOW C2 1ST SINGLE LEVEL Start: 11-30-2024 End: 11-30-2024 Arthrodesis posterior/posterolateral ea addl ARTHRODESIS CERVICAL BELOW C2, 2ND CERVICAL LEVEL Cervical myelopathy (HCC) 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 Spinal stenosis in cervical region 11/30/2024 11:15 AM EST MR OR Start: 11-30-2024 End: 11-30-2024 Arthrodesis pst/pstlat cervical belw c2 sgm ARTHRODESIS CERVICAL POSTERIOR, BELOW C2 1ST SINGLE LEVEL Cervical myelopathy (HCC) 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 Spinal stenosis in cervical region 11/30/2024 11:15 AM EST MR OR Start: 11-30-2024 End: 11-30-2024 Laminectomy w/o ffd > 2 vert seg cervical LAMINECTOMY CERVICAL POSTERIOR LEVEL 3 Cervical myelopathy (HCC) 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 Spinal stenosis in cervical region 11/30/2024 11:15 AM EST MR OR Start: 11-30-2024 Subsequent hospital visit by physician 11/30/2024 11:15 AM EST Hospital Encounter [facility] [address] [place] [address] Mayank Sheehan MD [address] [place] [address] [place] [address] Cervical myelopathy (HCC) [G95.9], 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 [M50.322, Z98.1], Spinal stenosis in cervical region [M48.02] [facility] Comment on above: Cervical myelopathy (HCC) [G95.9], Adjac ent segment disease of cervical spine at C5-C6 level with history of fusion procedure [M50.322, Z98.1], Spinal stenosis in cervical region [M48.02] Start: 11-30-2024 End: 11-30-2024 Transfusion blood/blood components TRANSFUSION BLOOD Cervical myelopathy (HCC) 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 Spinal stenosis in cervical region 11/30/2024 11:15 AM EST MR OR Start: 11-20-2024 End: 11-20-2024 ambulatory 11/20/2024 3:30 PM EST [facility] [address] [place] [address] Rene Day APRN.SINK MAKER [address] [place] [address] F/UP ON NECK AND SHOULDER PAIN Pain Management Comment on above: F/UP ON NECK AND SHOULDER PAIN Start: 11-16-2024 Lipid panel Lipid Screening [facility] Start: 11-11-2024 End: 11-11-2024 Patient encounter procedure 11/11/2024 3:30 PM EST Office Visit Pain Management [address] [place] [address] Jd Leslie APRN.SINK MAKER [address] [place] [address] 6 Week Follow Up Pain Management Comment on above: 6 Week Follow Up Start: 11-09-2024 End: 02-08-2025 Hemoglobin A1c in Blood [facility] Work Phone: Comment on above: Expected: 11/09/2024, Expires: Start: 10-27-2024 End: 10-27-2024 Patient encounter procedure 10/27/2024 2:00 PM EST Office Visit [facility] [address] [place] [address] Mayank Sheehan MD [address] [place] [address] [place] [address] [address] Results of cervial [facility] Comment on above: CT Results of cervial Start: 10-27-2024 Urine microalbumin profile DTaP,Tdap,Td Vaccine (2 - Td or Tdap) [facility] Start: 10-20-2024 End: 10-20-2024 Patient encounter procedure 10/20/2024 8:20 AM EST Appointment Cat Scan [address] [place], [place] [id number] Cervical Spine Cat Scan Comment on above: Cervical Spine Start: 10-09-2024 Screening for malignant neoplasm of colon [facility] Start: 10-09-2024 End: 10-09-2024 Patient encounter procedure 10/09/2024 8:30 AM EST Office Visit [facility] [address] [place] [address] [address] [place] [address] Mayank Sheehan MD [address] [place] [address] MRI Results [facility] Comment on above: MRI Results Start: 09-30-2024 Medicare Advantage Annual Wellness Visit Medicare Advantage Annual Wellness Visit [facility] Start: 09-21-2024 End: 09-21-2024 Patient encounter procedure 09/21/2024 12:30 PM EST Appointment Radiology [address] [place] [address] MRI Cervical Spine WO IVCON Radiology Comment on above: MRI Cervical Spine WO IVCON Start: 09-08-2024 End: 09-08-2024 Patient encounter procedure 09/08/2024 9:00 AM EST Office Visit [facility] [address] [place] [address] [address] [place] [address] Mayank Sheehan MD [address] [place] [address] Acute on chronic lumbar pain [facility] Comment on above: Acute on chronic lumbar pain Start: 2024 RSV Vaccine (1 - Risk 60-74 years 1-dose series) RSV Vaccine (1 - Risk 60-74 years 1-dose series) [facility] Start: 05-31-2024 Covid-19 Vaccine () Covid-19 Vaccine () [facility] Start: 05-31-2024 Influenza vaccination [facility] Start: 09-30-2023 Behavioral Health Screening Behavioral Health Screening [facility] Start: 05-31-2023 Covid-19 Vaccine ( season) Covid-19 Vaccine ( season) [facility] Start: 05-28-2023 Diabetes Screening Diabetes Screening [facility] Start: 02-14-2023 Diabetes Screening Diabetes Screening [facility] Start: 11-16-2020 Hepatitis B screening Urine Albumin:Creatinine Ratio [facility] Start: 09-21-2020 Screening for malignant neoplasm of breast Mammogram Screening [facility] Start: 06-23-2019 Spmtry w/vc expiratory shanique w/wo mxml vol vntj COMPLETE PULMONARY FUNCTION TESTING (PFT) (70959) Start: 23-Jun-2019 Intent Factyle; [facility] angelcam. Start: 06-17-2019 Urinls dip stick/tablet reagnt non-auto micrscpy URINALYSIS W MICROSCOPY (71660) Start: 17-Jun-2019 15:12-04:00 Request angelcam.; [employer]. Start: 06-17-2019 Culture bacterial quanttative colony count urine URINE ALETA CULTURE-DOREEN COL COUNT (81487) Start: 17-Jun-2019 15:11-04:00 Request angelcam.; [employer]. Start: 06-17-2019 Culture bct isol&prsmptv id isolate ea urine URINE ALETA CULTURE-ID ([id number]) Start: 17-Jun-2019 15:11-04:00 [facility] angelcam.; [facility]. Start: 06-17-2019 Iadna neisseria gonorrhoeae amplified probe tq NEISSERIA GONORRHEA - URINE SPEC AMP and/or PROBE ([id number]) Start: 17-Jun-2019 15:11-04:00 Request angelcam.; [employer]. Start: 06-17-2019 Iadna chlamydia trachomatis amplified probe tq CHLAMYDIA TRACHOMATIS - URINE SPEC AMP and/or PROBE ([id number]) Start: 17-Jun-2019 15:11-04:00 Request angelcam.; [employer]. Start: 06-17-2019 Dilated retinal exam w/evidence of retinopathy DILATED EYE EXAMINATION PERFORMED by EYE () Start: 17-Jun-2019 Intent [facility] Gl[employer].; [facility] [employer] [facility]. Start: 06-17-2019 Radiologic exam chest 2 views CHEST XRAY, PA & LATERAL (90750) Start: 17-Jun-2019 Intent [facility] [employer].; [facility] [employer] Start: 04-27-2019 Hemoglobin glycosylated a1c HGB A1C (59579) Start: 27-Apr-2019 14:15-04:00 Request angelcam.; [facility] Gl[employer]. Start: 12-05-2018 Patient Education KEGEL EXERCISES Indication: Pelvic floor dysfunction in female Start: 05-Dec-2018 Instruction Type: Patient Education [facility] [employer].; [facility] [employer]. Start: 11-26-2018 Hemoglobin glycosylated a1c HGB A1C (07984) Start: 26-Nov-2018 13:18-05:00 Request angelcam.; [facility] Start: 09-30-2018 Pneumococcal Vaccine: 50+ (2 of 2 - PCV) Pneumococcal Vaccine: 50+ (2 of 2 - PCV) [facility] Start: 09-19-2018 Patient Education [facility] [employer].; [facility] [employer]. Start: 09-03-2018 Lipid panel LIPID PANEL (68787) Start: 03-Sep-2018 16:30-05:00 Request angelcam.; [facility] [employer]. Start: 09-03-2018 Hemoglobin glycosylated a1c HGB A1C (11773) Start: 03-Sep-2018 16:29-05:00 Request [facility] [employer].; [facility] [employer]. Start: 09-03-2018 Patient Education [facility] [employer].; [facility] [employer]. Start: 07-07-2018 Urine albumin quantitative URINARY ALBUMIN/CREATININE RATIO (81395) (57884) Start: 07-Jul-2018 15:06-04:00 Request angelcam.; [facility]. Start: 07-07-2018 Basic metabolic panel calcium total BMP (35440) Start: 07-Jul-2018 15:06-04:00 [facility] Start: 07-07-2018 Hemoglobin glycosylated a1c HGB A1C (10534) Start: 07-Jul-2018 15:06-04:00 [facility] Start: 2014 Pneumococcal Vaccine: 50+ (1 of 1 - PCV) Pneumococcal Vaccine: 50+ (1 of 1 - PCV) [facility] Start: 2014 Shingrix Vaccine (1 of 2) Shingrix Vaccine (1 of 2) [facility] Start: 2009 Screening for malignant neoplasm of colon [facility] Start: 1985 Screening for malignant neoplasm of cervix Cervical Cancer Screening [facility] Start: 1983 Pneumococcal Vaccine: 50+ (1 of 2 - PCV) Pneumococcal Vaccine: 50+ (1 of 2 - PCV) [facility] Start: 1983 Urine microalbumin profile DTaP,Tdap,Td Vaccine (1 - Tdap) [facility] Start: 1982 Annual PCP Team Chronic Disease Visit Annual PCP Team Chronic Disease Visit [facility] Start: 1982 Anxiety Screening Anxiety Screening [facility] Start: 1982 BP Controlled (<130/80) BP Controlled (<130/80) [facility]ic Start: 1982 Depression Screening Depression Screening [facility] Start: 1982 Hepatitis B surface antibody level LDL Cholesterol [facility] Start: 1982 Hepatitis C screening Hepatitis C Screening [facility] Start: 1982 HIV screening HIV Screening [facility] Start: 1974 Diabetic foot examination Diabetic Foot Exam [facility] Start: 1974 Glaucoma screening Dilated Retinal Exam [facility] CT Cervical spine WO contrast CT CERVICAL SPINE WO IVCON Radiology Routine Spinal stenosis of cervical region Ordered: 10/09/2024 [facility] Work Phone: Comment on above: Ordered: 10/09/2024 End: 03-25-2026 CT Cervical spine WO contrast CT CERVICAL SPINE WO IVCON Radiology Routine Adverse effect of treatment, initial encounter 1 Occurrences starting 02/23/2025 until 03/25/2026 [facility] Work Phone: Comment on above: 1 Occurrences starting 02/23/2025 until 03/25/2026 [facility] End: 10-08-2025 MR Cervical spine WO contrast MRI CERVICAL SPINE WO IVCON Radiology Routine Spinal stenosis of cervical region 1 Occurrences starting 09/08/2024 until 10/08/2025 [facility] Work Phone: Comment on above: 1 Occurrences starting 09/08/2024 until 10/08/2025 End: 03-25-2026 MR Cervical spine WO contrast MRI CERVICAL SPINE WO IVCON Radiology Routine Adverse effect of treatment, initial encounter 1 Occurrences starting 02/23/2025 until 03/25/2026 [facility] Comment on above: 1 Occurrences starting 02/23/2025 until 03/25/2026 End: 12-04-2025 MR Lumbar spine WO contrast MRI LUMBAR SPINE WO IVCON Radiology Routine Spondylolisthesis of lumbar region 1 Occurrences starting 05/18/2025 until 12/04/2025 [facility] Work Phone: Comment on above: 1 Occurrences starting 05/18/2025 until 12/04/2025 End: 02-18-2026 MR Shoulder - right WO contrast MRI SHOULDER WO IVCON RIGHT Radiology Routine Traumatic tear of right rotator cuff, unspecified tear extent, initial encounter 1 Occurrences starting 01/19/2025 until 02/18/2026 [facility] Work Phone: Comment on above: 1 Occurrences starting 01/19/2025 until 02/18/2026 XR CERV OTHER 4V AP/LAT/FLX/EXT XR CERV OTHER 4V AP/LAT/FLX/EXT Radiology Routine Cervical myelopathy (HCC) 09/08/2024 10:03 AM EST [facility] XR Cervical spine AP and Lateral XR CERV GENERAL 2V AP/LAT Radiology Routine S/P cervical spinal fusion 12/15/2024 10:17 AM EDT [facility] Work Phone: XR Cervical spine AP and Lateral XR CERV GENERAL 2V AP/LAT Radiology Routine S/P cervical spinal fusion 01/12/2025 8:36 AM EDT [facility] Work Phone: XR Lumbar spine View s W flexion and W extension XR LUMBAR MOTION 4V AP/LAT/ FLEX/EXT Radiology Routine Low back pain, unspecified back pain laterality, unspecified chronicity, unspecified whether sciatica present 09/04/2024 8:19 AM EST [facility] Work Phone: End: 02-11-2026 XR Shoulder - right 3 Views XR SHOULDER GENERAL 3V OR MORE AP/TRUE AP/OTHER RIGHT Radiology Routine Status post cervical spinal fusion Chronic right shoulder pain 1 Occurrences starting 01/12/2025 until 02/11/2026 [facility] Work Phone: Comment on above: 1 Occurrences starting 01/12/2025 until 02/11/2026 XR Shoulder - right 3 Views XR SHOULDER GENERAL 3V OR MORE AP/TRUE AP/OTHER RIGHT Radiology Routine Status post cervical spinal fusion Chronic right shoulder pain 01/12/2025 10:10 AM EDT [facility] Immunizations Immunization Date Immunization Notes Care Provider [facility] 07-22-2024 influenza, injectabl e, quadrivalent, contains preservative; Translations: [Fluarix PF Prefilled Syringe ] [facility]SEPHINE WALTER [facility] 09-09-2019 influenza virus vaccine, unspecified formulation Sanjay GORDON Work Phone: [facility] 07-15-2018 influenza, injectabl e, quadrivalent, contains preservative Lazara DAMON MD Work Phone: [facility] [employer] [facility]. Comment on above: Site: Left DeltoidVI S Given: * Influenza - Inactivated (05/06/15) 07-15-2018 influenza virus vaccine, unspecified formulation Lazara DAMON MD Work Phone: [facility]. Comment on above: Given 07-15-2018 unknown vaccine or immune globulin Lazara DAMON MD Work Phone: [facility].; [facility] 10-26-2014 tetanus and diphther ia toxoids, adsorbed, preservative free, for adult use (2 Lf of tetanus toxoid and 2 Lf of diphtheria toxoid) Josephine MANZANO Work Phone: [facility] Payers Date Payer Category Payer Private Health Insurance [id number] 2025 Medicare (Managed Care) 1.2. [id number] 315 2025 Unknown [id number] 2024 Medicare [id number]. [id number]. 315 2024 Medicare [id number] 2024 Self-pay [id number] 2024 Medicaid [id number]. [id number] 2024 Unknown [id number] 2024 Unknown 2024 Unknown [id number] 1964 Unknown [id number] 2.16.84 0.1.562012.3.579.2.651 1964 Unknown [id number] 2.16.84 0.1.241807.3.579.2.651 1964 Unknown [id number] 2.16.8 40.1.144082.3.579.2.627 1964 Unknown [id number] 2.16.8 40.1.900878.3.579.2.627 1964 Unknown [id number] 2.16.8 40.1.976918.3.579.2.627 1964 Unknown [id number] 2.16.8 40.1.934639.3.579.2.627 1964 Unknown [id number] 2.16. 840.1.309898.3.579.2.297 1964 Unknown [id number] 2.16. 840.1.340406.3.579.2.627 1964 Unknown [id number] 2.16. 840.1.271481.3.579.2.627 1964 Unknown [id number] 2.16. 840.1.494367.3.579.2.627 1964 Unknown [id number] 2.16. 840.1.515066.3.579.2.627 1964 Unknown [id number] 2.16.8 40.1.062186.3.579.2.627 Private Health Insurance [id number] Unknown [id number] Unknown [id number] Unknown [id number] 2.16.8 40.1.090282.3.579.2.462 Unknown [id number] 2.16.8 40.1.415979.3.579.2.462 Unknown [id number] 2.16.8 40.1.022862.3.579.2.462 Unknown [id number] 2.16.8 40.1.619091.3.579.2.462 Unknown [id number] 2.16.8 40.1.089740.3.579.2.462 Unknown [id number] 2.16.8 40.1.749570.3.579.2.462 Unknown [id number] 2.16.8 40.1.137675.3.579.2.462 Unknown [id number] 2.16.8 40.1.634487.3.579.2.462 Unknown [id number] 2.16.8 40.1.215029.3.579.2.462 Unknown [id number] 2.16.8 40.1.331328.3.579.2.462 Unknown [id number] 2.16.8 40.1.051912.3.579.2.462 Unknown [id number] 2.16.8 40.1.448266.3.579.2.462 Unknown [id number] 2.16.8 40.1.856585.3.579.2.462 Unknown [id number] 2.16.8 40.1.459810.3.579.2.462 Unknown [id number] 2.16.8 40.1.169669.3.579.2.462 Unknown [id number] 2.16.8 40.1.483202.3.579.2.462 Unknown [id number] 2.16.8 40.1.870091.3.579.2.462 Unknown [id number] 2.16.8 40.1.695950.3.579.2.462 Unknown [id number] 2.16.8 40.1.979072.3.579.2.462 Unknown [id number] 2.16.8 40.1.106998.3.579.2.462 Unknown [id number] 2.16.8 40.1.385794.3.579.2.462 Unknown [id number] 2.16.8 40.1.306589.3.579.2.462 Unknown [id number] 2.16.8 40.1.257401.3.579.2.462 Social History Date Type Detail Facility Alcohol Use: Alcohol Use: ; Y es for Alcohol Use. Occasional alcohol use. Fact[employer]; [facility] [employer] Marital status: Marital status: ; . [employer]; [facility] [employer] Start: 03-24-2024 End: 12-15-2024 Most Recent Primary Occupation Most Recent Primary Occupation [employer]; [facility] [employer] [facility] Tobacco use: Tobacco use: ; C urrent every day smoker. [facility]; [facility] Start: 1965 [facility] Occasional alcohol use [facility]; [facility] Work Phone: Smokes tobacco daily [facility].; [facility] Work Phone: [facility] [employer]; [facility] Work Phone: Start: 07-04-2020 Tobacco smoking status Light t obacco smoker (finding) [facility] Sex Assigned At [facility] Start: 03-24-2024 End: 07-15-2025 Tobacco smoking status NHIS Ex-smoker [facility] History of tobacco use Current smoker [facility] History of tobacco use Cigarette Smoker C [facility] Start: 03-24-2024 End: 09-08-2024 Tobacco use and exposure Smokeless tobacco non-user [facility] Start: 03-24-2024 End: 12-15-2024 Tobacco use panel [facility] Start: 1965 Sex Assigned At Not on file C [facility] Start: 08-31-2012 National Score (1-10 0), lower number is lower risk 80 [facility] Start: 09-08-2024 End: 05-18-2025 Alcoholic beverage intake Current drinker of alcohol (finding) [facility] Has the [employer], or [place] threatened to shut off services in your home in past 12Mo No [facility] (I/We) worried wheth er (my/our) food would run out before (I/we) got money to buy more. Never true [facility] Start: 07-31-2016 Sex Female (finding) [facility] Medical Equipment Procedure Code Equipment Code Equipment Origin al Text Equipment Identifier Dates Arthroscopy, shoulder, with rotator cuff repair ANCHOR, 4.75 SWIVEL LOCK FDA Start: 07-19-2025 Arthroscopy, shoulder, with rotator cuff repair FIBERLINK [id number] FDA Start: 07-19-2025 Arthroscopy, shoulder, with rotator cuff repair PROXIMAL TENODESIS IMPLANT FDA Start: 07-19-2025 Dbm [id number] Start: 11-30-2024 Cap Quartex Lock ing Thread Spine - [id number] Start: 11-30-2024 Quartex Curved R od 4mm X 40mm [id number] Start: 11-30-2024 Screw Quartex 3. 5mm 14mm Bone Polyaxial Spine - [id number] Start: 11-30-2024 Peripheral arter y endovascular stent-graft, non-medicated ()[id number] FDA Start: 09-02-2024 Goals Date Patient Goal Desired Activity /State Personal health goal Functional Status Date Assessment Result Facility 12-02-2024 Are you deaf, or do you have serious difficulty hearing No 12/02/2024 1:35 PM Desiree Valle RN No [facility] 12-02-2024 Are you blind, or do you have serious difficulty seeing, even when wearing glasses No 12/02/2024 1:35 PM Desiree Valle RN No [facility] 12-02-2024 Do you have serious difficulty walking or climbing stairs No 12/02/2024 1:35 PM Desiree Valle RN No [facility] 12-02-2024 Do you have difficul ty dressing or bathing No 12/02/2024 1:35 PM Desiree Valle RN No [facility] 12-02-2024 Because of a physica l, mental, or emotional condition, do you have difficulty doing errands alone such as visiting a physician's office or shopping No 12/02/2024 1:35 PM Desiree Valle RN No [facility] Mental Status Date Assessment Result Facility 07-19-2025 Cognitive function Level Of Cons ciousness Awake [facility] Work Phone: 07-19-2025 Cognitive function Voice/Name [facility] Work Phone: 12-02-2024 Because of a physica l, mental, or emotional condition, do you have serious difficulty concentrating, remembering, or making decisions No 12/02/2024 1:35 PM Desiree Valle RN No [facility] Clinical Notes 03-24-2024 to 07-19-2025 Note Date & Type Note Facility 07-19-2025 Consult note [facility] 07-19-2025 Consult note Note Date/Time July 19, 2025 4:26pm [facility] Medical Records Department [address] [place] [address] Anesthesia Postop Eval II 07/19/25 1406 MR#: [id number] Acct: [id number] Name: CHIDI MUSA Rep #:[id number] : 1965 60 From: Uriel Meek MD PCP: MARQUIS LoyolaC Status:[facility] Y Race: C Location: [place] [address] Anesthesia Postop Eval I Sum Postop Eval Completion status Anesthesia document: Postop Eval 1 completed: Yes Anesthesia Postop Eval I Summary Anesthesia Postop Eval I Summary: Anesthesia Postop Eval I: Assessment Summary Airway patent Yes 07/19/25 13:37 RESEARCH INTERN.JBLOU Spontaneous unlabored Yes 07/19/25 13:37 RESEARCH INTERN.JBLOU respirations Mental status nausea No 07/19/25 13:37 RESEARCH INTERN.JBLOU Vomiting No 07/19/25 13:37 RESEARCH INTERN.JBLOU Anesthesia Postop Eval I: Fluid Summary Crystalloid volume administer 1,000 07/19/25 13:37 RESEARCH INTERN.JBLOU (ml) Colloids volume administered ( ml) Blood Product volume administered (ml) Total IV fluid infused 1,000 07/19/25 13:37 RESEARCH INTERN.JBLOU Anesthesia Postop Eval I: Summary Notes Anesthesia Complication No 07/19/25 13:37 RESEARCH INTERN.JBLOU Anesthesia Complication Comment: Post-operative progress note Anesthesia: Postop Eval II Evaluation Mental status: Awake Pain Level: 1 nausea: No Vomiting: No 07/19/25 1406 <Electronically signed by Uriel Meek MD > Date _ Uriel Bojorquez Signature: Date CC: ~ Signed [facility] Work Phone: 1(159) 693-665910-20-2025 Consult note Author Kaleb Cervantes [facility] Note Date/Time July 19, 2025 2 :37pm [facility] Medical Records Department [address] [place] [address] Anesthesia Postop Eval I 07/19/254 MR#: [id number] Acct: [id number] Name: CHIDI MUSA Rep #:[id number] : 1965 60 From: Kaleb JEREZ PCP: MARQUIS LoyolaC Status:[facility] [place] Race: C Location: [place] [address] Anesthesia: Postop Eval I Current Vital Signs Temperature: 97 F Pulse Rate: 78 Blood Pressure: 151/68 Respiratory Rate: 18 Pulse Ox: 95 Assessment Airway patent: Yes Spontaneous unlabored respirations: Yes nausea: No Vomiting: No Anesthesia Complication: No Fluid Hydration Crystalloid volume administer (ml): 1,000 Total IV fluid infused: 1,000 Progress Note Anesthesia document: Postop Eval 1 completed: Yes 07/19/251336 <Electronically signed by Kaleb Cervantes CRNA> Date _ Kaleb Bojorquez Signature: Date CC: ~ Signed [facility] Work Phone: 1(302) 746-324910-20-2025 Consult note [facility] Medical Records Department [address] [place] [address] Anesthesia Postop Eval I 07/19/254 MR#: [id number] Acct: [id number] Name: CHIDI MUSA Rep #:[id number] : 1965 60 From: Kaleb LOUISE NA PCP: MARQUIS LoyloaC Status[place]BIANKA [facility]ares [facility] [place] Race: C Location: [place] [address] Anesthesia: Postop Eval I Current Vital Signs Temperature: 97 F Pulse Rate: 78 Blood Pressure: 151/68 Respiratory Rate: 18 Pulse Ox: 95 Assessment Airway patent: Yes Spontaneous unlabored respirations: Yes nausea: No Vomiting: No Anesthesia Complication: No Fluid Hydration Crystalloid volume administer (ml): 1,000 Total IV fluid infused: 1,000 Progress Note Anesthesia document: Postop Eval 1 completed: Yes 07/19/25 1337 RESEARCH INTERN> Date _ Kaleb Cervantes RESEARCH INTERN Cosigner Signature: Date CC: ~ Signed [facility]10-20-2025 Procedure note [facility] Medical Records Department [address] [place] [id number] Operative Report 07/19/25 1318 MR#: [id number] Acct: [id number] Name: CHIDI MUSA Rep #:[id number] : 1965 60 From: Moiz rodriguez DO PCP: NATACHA Loyola Status[place]BIANKA Olivares [facility] [place] [address] Operative Report (Standard) Operative Information Date of Procedure: 07/19/25 Pre-Operative Diagnosis: 1. Right shoulder rotator cuff tear 2. Right shoulder adhesive capsulitis 3. Right shoulder superior labral tear anterior posterior Post-Operative Diagnosis: 1. Right shoulder rotator cuff tear 2. Right shoulder adhesive capsulitis 3. Right shoulder superior labral tear anterior posterior 4. Right shoulder long head of biceps tendinopathy Surgery/Procedure Performed: 1. Right shoulder arthroscopic rotator cuff repair 2. Right shoulder arthroscopic capsular release with manipulation under anesthesia 3. Right shoulder mini open subpectoral biceps tenodesis hvac r instructor: Yes Die Repair Machinist: Shefali Skinner Tasks completed by clinical education assistant: Opening & closing, Implanting device and Retracting Type of Anesthesia: General/Regional RN Documented Start/Stop Times: Operation Date: 07/19/25 12:30 Case Time Into Pre-Op 07/19/25 10:08 Anesthesia Start 07/19/25 12:01 Into Room 07/19/25 12:01 Procedure Start 07/19/25 12:26 Procedure Start Time: 12:26 Procedure Stop Time: 13:27 Select all DRAINS/GRAFTS/IMPLANTS that apply: Implanted device Implanted device details: Arthrex metallic biceps button, Arthrex 4.75 mm self punching bio composite swivel lock anchor Estimated Blood Loss: 5 cc Specimen collected: No Description of surgery: Patient was identified in preoperative holding area by name, medical record number, and date of . The operative extremity was marked. All questions were answered to the patient's satisfaction. An interscalene block was administered by anesthesia prior to the procedure. Patient was then brought to the operative suite at time of his procedure. She was positioned supinea sterile operating table. General anesthesia was inducedand LMA was placed. Patient was then placed in lateral decubitus position with the right side up. A beanbag was used to hold the patient in the lateral decubitus position. An axillary roll was placed. Pillows were placed beneath and between his legs to for any bony prominences. We prepped and draped the right upper extremity in normal, sterile orthopedic fashion. The operative extremity was placed in traction utilizing arthroscopic bedroom with 15 pounds of tension applied to the operative extremity throughout the arthroscopic portion of the case. We performed a timeout with all parties in attendance in agreement with the side, site, and operation be performed. No concerns were voiced and we elected to proceed with surgery. 2 g Ancef was administered IV prior to incision by anesthesia staff. I first established a standard posterior portal 2 fingerbreadths inferior medialto the posterior lateral border of the scapular spine. Blunt tipped trocar and arthroscopic cannula was introduced intothe glenohumeral joint. Joint was inflated with normal saline with epinephrine. Arthroscope was then introduced. Diagnostic arthroscopy was commenced. Upon entering the joint, I was unable to distend the joint at all to safely visualize the glenohumeral joint and made decision to remove arthroscopic instruments and perform a manipulation under anesthesia. Free manipulation range of motion was flexion to 90 degrees, external rotation 0 degrees. Multiple adhesions were then released with gradual overhead forward flexion and external rotation. There was full flexion to 160 degrees and external rotation to 40 degrees after completion of manipulation under anesthesia. I then reentered the shoulder in the posterior portal with the arthroscope andwas ableto do much better visualize the joint and joint suction was appropriate at this time. There was diffuse synovitis noted and some bleeding from our manipulation. This was cauterized. Capsular release was then performed through an anterior interval portal in the rotator interval carefully dissecting the interval. I released the anterior labrum from the capsule with the cautery. I then placed the arthroscope in the anterior portal and released the posterior capsule from the labrum with thecautery in standard fashion. The inferior capsule was visualized and appeared to be released with the manipulation. Glenohumeral cartilage was pristine. Superior labral tearing was noted with unstable biceps anchor. Tenotomy was performed at the biceps labral junction and the biceps tendon was allowed to retract into its groove. 60% articular sided tearing of the supraspinatus was noted and articular side was debrided with the shaver. Subscapularis was pristine. No loose bodies were identified. I then turned my attention to the subacromial space. Arthroscopic instruments were removed. I reentered the shoulder in the subacromial space with blunt tipped trocar. Standard lateral portal was established with an 11 blade scalpel. Passport was placed for suture management during rotator cuff repair. I then skeletonized the undersurface of the acromion. Acromion was unremarkable. The subacromial bursa was limitedly debrided. Bursitis was encountered. Bursal side of the supraspinatus tendon was then evaluated. I gently probed with a tissue elevator and easily fell until full-thickness tear in the crescent portion of the tendon. Limited debridement of adjacent tissue was performed with a shaver. Tear measured less than 1 cm in width. Tissue quality appeared reasonable. There was no significant delamination noted. Given the small cuff tear, I proceeded with a single anchor repair with a ripstop type configuration with a inverted mattress suture tape and FiberLink suture in the central portion of tendon medial to the suture tape. The 3 suturetails were then passed through the eyelet of a swivel lock anchor which was placed at the lateral margin of the footprint with good cortical purchase. There is small dogear anteriorly which was reduced with the knotless mechanism. Sutures werecut flush with the anchor. Anatomic reduction was achieved. I then thoroughly lavaged the subacromial space. Arthroscopic instruments were removed. Portal sites were closed in standard fashion with a [id number] 3-0 nylon suture. The arm was then taken out of traction. I turned my attention to the tenodesis. 2 cm oblique incision was made along the inferior border of the pectoralis major. Blunt dissection was carried down to level of the fascia which was opened just inferior to the pectoralis major. Long the biceps tendon was then retrieved beneath the pectoralis major. Partial tearing and tenosynovitis was noted in the tendon. Whipstitch was performed with a #2 fiber loop at the musculotendinous junction. The intercalary segment of the tendon was amputated and discarded. I then passed the suture tails alternatingly through a biceps button. Periosteum was elevated in the subpectoral region of the humerus. Unicortical agricultural pilot hole was established with a spade tip drill. Button was then placed in our agricultural pilot hole and deployed. Sutures were tensioned and tied. Suturetail was passed back through the tendon with a scorpion suture passer and reinforced with another set of knots. Wound was irrigated. Tenodesis was stable. Field block was administered with 10 cc quarter percent bupivacaine with epinephrine. Dermis was reapproximated buried 3-0 Vicryl suture. Skin finally reapproximated subsequent 4-0 Monocryl and Dermabond. Bulky sterile compression dressing was applied. Patient was placed in UltraSling. She tolerated theprocedure well without apparent complication. She was safely awoken the operative suite and [facility] condition. Need for skilled assistant education director: Shefali Skinner PA-C was critical to the outcome of thecase. During the course of the procedure the physician assistant education director played a vitalrole. Her intimate knowledge of my stepsin the procedure aided in safe and expedient completion of the procedure. The PA played a vital role in positioning particularly in obtaining the appropriate positioning. The PA was also vital in theretraction of soft tissues during the exposure and protecting vital structures. The PA was also vital and obtaining tendon reduction and assisting with hardware placement. She also played a vital role in closure and sling application with my direct supervision. Post Operative Plan: Weightbearing: Nonweightbearing right upper extremity, okay for pendulums. Range of motion of wristelbow and hand as tolerated. Physical therapy to startin 2 weeks. Antibiotics: 2 g Ancef IV prior to incision DVT Prophylaxis: Restart home aspirin and Plavix postoperative day #1, early mobilization Rockwell: None Dressing: Maintain dressing x 2 days then ok to shower X-Rays: None Pain Medication: Oxycodone Rx upon discharge Follow-up: 2 weeks post-operatively with me in the office Surgical Findings: Severe adhesive capsulitis. Improved range of motion after capsular release andMUA. Small partial thickness supraspinatus tear, at least 60%. Complications Complications: No Admit VTE Documentation VTE Present on Admission: No VTE Mechan Device Prophylaxis: SCD's VTE Pharm Prophylaxis ordered?: Yes 07/19/25 1331 Cosigner Signature (if applicable): CC: NATACHA Walter; Dr. Moiz Rodriguez, DO~ Signed [facility]10-20-2025 Consult note Author Uriel darcy [facility] Note Date/Time July 19, 2025 1 2:05pm [facility] Medical Records Department [address] [place] [address] Pre-Anesthesia Evaluation 07/19/25 1104 MR#: [id number] Acct: [id number] Name: CHIDI MUSA Rep #:[id number] : 1965 60 From: Uriel Meek MD PCP: NATACHA Loyola Status:RE G SDC Y Race: C Location: [place] [address] ASA Classification* ASA Classification ASA Classification: 3 Assessment & Plan Anesthesia* Anesthesia Assessment Anesthesia Assessment: Discussed sedation and/or anesthesia options, risks, benefits, and alternatives with patient/parents/legal guardian/POA. Questions invited. The patient/parents/legal guardian/POA seems to understand and agrees to proceedwith anesthesia plan. Reviewed the physical assessment, medical history, allergy history and patient home medications list prior to surgery/procedure/anesthetic and documented any changes. Performed airway and anesthesia risk assessments. Anesthesia Type Anesthesia Type: General and Block Anesthesia Focused Assessment* Temperature: 97.5 F Pulse Rate: 80 Blood Pressure: 117/79 Respiratory Rate: 16 Pulse Ox: 99 Airway Assessment Mouth opens: >3 cm Mallampati Score: II Labs Anesthesia Preop lab: CBC WBC, (4.4-11.0) 10.6 K/mm3 10/01/24, 11:39 RBC, (4.2-5.4) 5.31 M/mm3 10/01/24, 11:39 Hgb, (12.0-15.0) 16.3 g/dL H 10/01/24, 11:39 Hct, (37-47) 49.5 % H 10/01/24, 11:39 Plt Count, (150-450) 235 K/mm3 10/01/24, 11:39 CHEMISTRY Potassium, (3.5-5.1) 3.9 mmol/L 09/02/24, 08:59 Sodium, (136-145) 139 mmol/L 09/02/24, 08:59 BUN, (7-18) 17 mg/dL 09/02/24, 08:59 Creatinine, (0.55-1.02) 0.75 mg/dL 09/02/24, 08:59 Glucose, (74-106) 176 mg/dL H 09/02/24, 08:59 COAG Pre-Assessment Diagnosis/Proposed Procedure Planned Operative Procedure(s): RIGHT SHOULDER ARTHROSCOPY RTC REPAIR Anesthesia History Anesthesia History - telecom analyst: Anesthesia History - telecom analyst Hx Hospitalization No 07/15/25 09:28 Any Problems With Anesthesia No 07/15/25 09:28 Cholinesterase deficiency No 07/15/25 09:28 You/Your Family Experience No 07/15/25 09:28 fever (hyperthermia) with Relationship Recent Exposure to Contagious No 07/19/25 10:28 Disease Does patient have nerve No 07/15/25 09:28 stimulator Patient instructed to have device shut off --Does patient have Pacemaker No 07/19/25 10:28 or ICD? When Was Last Pacemaker Check QUESTION #4 FULL TEXT: You/Your Family Experience fever (hyperthermia) with Anesthesia Last Oral Intake Last Oral intake: Last Oral Intake NPO since 07:30 07/19/25 10:28 Meds taken in AM with sips of Yes 07/19/25 10:28 water? Meds patient instructed to take am of surgery PONV PONV - telecom analyst: PONV - telecom analyst Female Yes 07/15/25 09:28 HX of Motion Sickness No 07/15/25 09:28 HX of N/V After Surgery No 07/15/25 09:28 Non-Smoker Yes 07/15/25 09:28 Duration of Surgery greater Yes 07/15/25 09:28 than 60 minutes Number of Risk Factors 3 07/15/25 09:28 PONV Score Moderate Risk 07/15/25 09:28 Height & Weight Height & Weight: Anesthesia: Height & Weight Height 5 ft 2 in 07/19/25 10:28 Weight: 70 kg 07/19/25 10:28 Body Mass Index (BMI) 28.2 07/19/25 10:28 Respiratory Assessment Respiratory Assessment - telecom analyst: Respiratory Tract Infection Hx - telecom analyst Hx Respiratory Tract Infection No 07/15/25 09:28 STOP Sleep Apnea STOP Sleep Apnea - telecom analyst: STOP Sleep Apnea - telecom analyst Hx Hypertension Yes: CONTROLLED WITH MED 07/15/25 09:28 Hx Sleep Apnea Yes 07/15/25 09:28 CPAP Yes: NONCOMPLIANT 07/15/25 09:28 BIPAP No 07/15/25 09:28 Do you snore loudly (louder than talking or can be heard Do you often feel tired/ fatigued/ sleepy during daytime? Has anyone observed you stop breathing during sleep? STOP Results Positive 07/15/25 09:28 QUESTION #5 FULL TEXT : Do you snore loudly (louder than talking or can be heard through closed doors)? Tobacco Use History Tobacco Use History - telecom analyst: Tobacco Use History - telecom analyst Tobacco Use Smoking Status Former smoker 07/15/25 09:28 Hx Tobacco Use No 07/15/25 09:28 Years Smoking Packs Smoked per Day Smoking Cessation Date was Yes - quit smoking within 15 07/15/25 09:28 within the last 15 years years Hx Smoking Cessation Date 09/30/23 07/15/25 09:28 Hx Smoking Cessation No 07/15/25 09:28 Counseling Hematologic Medial History Hematologic Hx - telecom analyst: Hematologic Medical Hx - supervisor conditioning yard Hx of Blood Transfusion No 07/15/25 09:28 Hx of Transfusion in last 3 No 07/15/25 09:28 Months Date of Last Transfusion (if within last 3 months) Ever experience any problems No 07/15/25 09:28 with transfusion(s)? Specify any problems Hx of Preganancy in last 3 No 07/15/25 09:28 Months Nurse Filling Out Transfusion DSCHRIBER 07/15/25 09:28 & Questions: Date: 07/15/25 07/15/25 09:28 Time: 09:30 07/15/25 09:28 Patient unable to answer at this time (ie. confused, unrespo /Reproduction History /Reproductive History - telecom analyst: /Reproductive Hx- telecom analyst Hx Now No 07/15/25 09:28 Gestational Age (in weeks): EDC: Hx Hx Para Hx Section SAB No 07/15/25 09:28 Active Medications Active Medications: Current Medications Generic Name Dose Route Start Last Admin Trade Name Freq PRN Reason Stop Dose Admin Cefazolin Sodium 2 gm/ Sodium 110 mls @ 200 mls/hr 07/19/25 12:30 Chloride IV 07/19/25 13:02 INTRAOP ONE Lactated Ringer's 1,000 mls @ 15 mls/hr 07/19/25 10:15 07/19/25 10:47 IV 15 mls/hr .Q48H JOSE Administration PFSH Medical History Wears glasses Post-menopausal Marijuana use Alcohol use Ambulates with cane Arthritis Blood disorder Restless legs Injury of back Injury of head and neck Syncope Dietary restriction Gastric reflux Former smoker CPAP (continuous positive airway pressure) dependence Chronic cough Hypertension Leg cramps History of pain when walking History of normal Holter exam History of echocardiogram History of stress test Cardiology follow-up encounter Ventral hernia Coronary artery disease CALVIN (generalized anxiety disorder) MDD (major depressive disorder) Lumbar foraminal stenosis Hyperlipidemia Peripheral neuropathy Type 2 diabetes mellitus COPD (chronic obstructive pulmonary disease) Atherosclerosis of [place] arteries of extremities with rest pain, left leg Aortoiliac occlusive disease Home Medications ?Medication ?Instructions ?Recorded ?Last Taken ?Type atorvastatin 40 mg tablet 40 mg PO DAILY 05/12/24 Unkn own History methocarbamol 500 mg tablet 1,000 mg PO QHS 05/12/24 U nknown History pantoprazole 40 mg tablet,delayed 40 mg PO DAILY 05/1207/19/25 History release albuterol sulfate 90 mcg/actuation 1 inh inhalation Q4 H PRN shortness 05/20/24 Unknown History aerosol inhaler of breath or wheezing clopidogrel 75 mg tablet 75 mg PO QDAY 05/20/2407/14 History empagliflozin 10 mg tablet 10 mg PO DAILY 05/20/24 History (Jardiance) lidocaine 5 % topical patch 1 patch topical QHS Unknown History aripiprazole 5 mg tablet 5 mg PO QDAY 08/11/24 Unknow n History hydroxyzine HCl 25 mg tablet 25 mg PO TID PRN anxiety 08/11/24 Unknown History aspirin 81 mg tablet,delayed 81 mg PO QDAY 09/16/24 Un known History release fluticasone 250 mcg-salmeterol 50 1 ea inhalation BID 10/01/24 07/19/25 History mcg/dose blistr powdr for inhalation (Advair Diskus) fluticasone propionate 50 2 spray intranasal QDAY 11/24 Unknown History mcg/actuation nasal spray,suspension (Allergy Relief (fluticasone)) amlodipine 5 mg tablet 5 mg PO QDAY #90 tabs 07/19/25 07:30 Rx metoprolol succinate 50 mg 50 mg PO QDAY #90 tabs 12/2207/19/25 Rx tablet,extended release 24 hr tramadol 50 mg tablet 100 mg PO Q8H PRN pain 04/01 Unknown History cinnamon bark 500 mg capsule 2,000 mg PO BID 07/15/25 Unknown History (Cinnamon) naproxen 500 mg tablet,delayed 500 mg PO BID 07/15/25 07/14/25 History release pregabalin 200 mg capsule 200 mg PO TID PRN pain (scal e 07/15/25 Unknown History score 1-3) tirzepatide 5 mg/0.5 mL 5 mg subcut MO 07/15/2506/30 History subcutaneous pen injector (Mounjaro) tizanidine 4 mg tablet 4 mg PO BID PRN muscle spast icity 07/15/25 Unknown History Allergy/AdvReac Type Severity Reaction Status Date / Time No Known Allergies Allergy Verified 07/15/25 09:15 Family History Mother Heart disease Father Cancer Surgical History Hx of arthroscopic knee surgery H/O angioplasty S/P insertion of iliac artery stent (~05/2022) History of carotid endarterectomy History of oophorectomy History of cardiac catheterization History of spinal surgery History of colonoscopy Presence of stent in coronary artery Hx of CABG History of hysterectomy History of cholecystectomy Social History Smoking Status: Former smoker Tobacco: How many years used: 38 how long ago did patient quit smokin months second hand exposure: Yes Review of Systems (Anesthesia) ROS Narrative System reviewed and no additional complaints, except as documented. 07/19/251104 <Electronically signed by Uriel Meek MD > Date _ [facility]ek [facility] Signature: Date CC: ~ Signed [facility] Work Phone: 1(851) 240-955810-20-2025 Consult note [facility] Medical Records Department [address] [place] [address] Pre-Anesthesia Evaluation 07/19/251103 MR#: [id number] Acct: [id number] Name: CHIDI MUSA Rep #:[id number] : 1965 60 From: Uriel Meek MD PCP: MARQUIS LoyolaC Status:RE G ALJessica Y Race: C Location: [place] [address]- ASA Classification* ASA Classification ASA Classification: 3 Assessment & Plan Anesthesia* Anesthesia Assessment Anesthesia Assessment: Discussed sedation and/or anesthesia options, risks, benefits, and alternatives with patient/parents/legal guardian/POA. Questions invited. The patient/parents/legal guardian/POA seems to understand and agrees to proceedwith anesthesia plan. Reviewed the physical assessment, medical history, allergy history and patient home medications list prior to surgery/procedure/anesthetic and documented any changes. Performed airway and anesthesia risk assessments. Anesthesia Type Anesthesia Type: General and Block Anesthesia Focused Assessment* Temperature: 97.5 F Pulse Rate: 80 Blood Pressure: 117/79 Respiratory Rate: 16 Pulse Ox: 99 Airway Assessment Mouth opens: >3 cm Mallampati Score: II Labs Anesthesia Preop lab: CBC WBC, (4.4-11.0) 10.6 K/mm3 10/01/24, 11:39 RBC, (4.2-5.4) 5.31 M/mm3 10/01/24, 11:39 Hgb, (12.0-15.0) 16.3 g/dL H 10/01/24, 11:39 Hct, (37-47) 49.5 % H 10/01/24, 11:39 Plt Count, (150-450) 235 K/mm3 10/01/24, 11:39 CHEMISTRY Potassium, (3.5-5.1) 3.9 mmol/L 09/02/24, 08:59 Sodium, (136-145) 139 mmol/L 09/02/24, 08:59 BUN, (7-18) 17 mg/dL 09/02/24, 08:59 Creatinine, (0.55-1.02) 0.75 mg/dL 09/02/24, 08:59 Glucose, (74-106) 176 mg/dL H 09/02/24, 08:59 COAG Pre-Assessment Diagnosis/Proposed Procedure Planned Operative Procedure(s): RIGHT SHOULDER ARTHROSCOPY RTC REPAIR Anesthesia History Anesthesia History - telecom analyst: Anesthesia History - telecom analyst Hx Hospitalization No 07/15/25 09:28 Any Problems With Anesthesia No 07/15/25 09:28 Cholinesterase deficiency No 07/15/25 09:28 You/Your Family Experience No 07/15/25 09:28 fever (hyperthermia) with Relationship Recent Exposure to Contagious No 07/19/25 10:28 Disease Does patient have nerve No 07/15/25 09:28 stimulator Patient instructed to have device shut off --Does patient have Pacemaker No 07/19/25 10:28 or ICD? When Was Last Pacemaker Check QUESTION #4 FULL TEXT: You/Your Family Experience fever (hyperthermia) with Anesthesia Last Oral Intake Last Oral intake: Last Oral Intake NPO since 07:30 07/19/25 10:28 Meds taken in AM with sips of Yes 07/19/25 10:28 water? Meds patient instructed to take am of surgery PONV PONV - telecom analyst: PONV - telecom analyst Female Yes 07/15/25 09:28 HX of Motion Sickness No 07/15/25 09:28 HX of N/V After Surgery No 07/15/25 09:28 Non-Smoker Yes 07/15/25 09:28 Duration of Surgery greater Yes 07/15/25 09:28 than 60 minutes Number of Risk Factors 3 07/15/25 09:28 PONV Score Moderate Risk 07/15/25 09:28 Height & Weight Height & Weight: Anesthesia: Height & Weight Height 5 ft 2 in 07/19/25 10:28 Weight: 70 kg 07/19/25 10:28 Body Mass Index (BMI) 28.2 07/19/25 10:28 Respiratory Assessment Respiratory Assessment - telecom analyst: Respiratory Tract Infection Hx - telecom analyst Hx Respiratory Tract Infection No 07/15/25 09:28 STOP Sleep Apnea STOP Sleep Apnea - telecom analyst: STOP Sleep Apnea - telecom analyst Hx Hypertension Yes: CONTROLLED WITH MED 07/15/25 09:28 Hx Sleep Apnea Yes 07/15/25 09:28 CPAP Yes: NONCOMPLIANT 07/15/25 09:28 BIPAP No 07/15/25 09:28 Do you snore loudly (louder than talking or can be heard Do you often feel tired/ fatigued/ sleepy during daytime? Has anyone observed you stop breathing during sleep? STOP Results Positive 07/15/25 09:28 QUESTION #5 FULL TEXT : Do you snore loudly (louder than talking or can be heard through closeddoors)? Tobacco Use History Tobacco Use History - telecom analyst: Tobacco Use History - telecom analyst Tobacco Use Smoking Status Former smoker 07/15/25 09:28 Hx Tobacco Use No 07/15/25 09:28 Years Smoking Packs Smoked per Day Smoking Cessation Date was Yes - quit smoking within 15 07/15/25 09:28 within the last 15 years years Hx Smoking Cessation Date 09/30/23 07/15/25 09:28 Hx Smoking Cessation No 07/15/25 09:28 Counseling Hematologic Medial History Hematologic Hx - telecom analyst: Hematologic Medical Hx - supervisor conditioning yard Hx of Blood Transfusion No 07/15/25 09:28 Hx of Transfusion in last 3 No 07/15/25 09:28 Months Date of Last Transfusion (if within last 3 months) Ever experience any problems No 07/15/25 09:28 with transfusion(s)? Specify any problems Hx of Preganancy in last 3 No 07/15/25 09:28 Months Nurse Filling Out Transfusion DSCHRIBER 07/15/25 09:28 & Questions: Date: 07/15/25 07/15/25 09:28 Time: :30 07/15/25 09:28 Patient unable to answer at this time (ie. confused, unrespo /Reproduction History /Reproductive History - telecom analyst: /Reproductive Hx- telecom analyst Hx Now No 07/15/25 09:28 Gestational Age (in weeks): EDC: Hx Hx Para Hx Section SAB No 07/15/25 09:28 Active Medications Active Medications: Current Medications Generic Name Dose Route Start Last Admin Trade Name Freq PRN Reason Stop Dose Admin Cefazolin Sodium 2 gm/ Sodium 110 mls @ 200 mls/hr 07/19/25 12:30 Chloride IV 07/19/25 13:02 INTRAOP ONE Lactated Ringer's 1,000 mls @ 15 mls/hr 07/19/25 10:15 07/19/25 10:47 IV 15 mls/hr .Q48H JOSE Administration PFSH Medical History Wears glasses Post-menopausal Marijuana use Alcohol use Ambulates with cane Arthritis Blood disorder Restless legs Injury of back Injury of head and neck Syncope Dietary restriction Gastric reflux Former smoker CPAP (continuous positive airway pressure) dependence Chronic cough Hypertension Leg cramps History of pain when walking History of normal Holter exam History of echocardiogram History of stress test Cardiology follow-up encounter Ventral hernia Coronary artery disease CALVIN (generalized anxiety disorder) MDD (major depressive disorder) Lumbar foraminal stenosis Hyperlipidemia Peripheral neuropathy Type 2 diabetes mellitus COPD (chronic obstructive pulmonary disease) Atherosclerosis of [place] arteries of extremities with rest pain, left leg Aortoiliac occlusive disease Home Medications ?Medication ?Instructions ?Recorded ?Last Taken ?Type atorvastatin 40 mg tablet 40 mg PO DAILY 05/12/24 Unkn own History methocarbamol 500 mg tablet 1,000 mg PO QHS 05/12/24 U nknown History pantoprazole 40 mg tablet,delayed 40 mg PO DAILY 05/1207/19/25 History release albuterol sulfate 90 mcg/actuation 1 inh inhalation Q4 H PRN shortness 05/20/24 Unknown History aerosol inhaler of breath or wheezing clopidogrel 75 mg tablet 75 mg PO QDAY 05/20/2407/14 History empagliflozin 10 mg tablet 10 mg PO DAILY 05/20/24 History (Jardiance) lidocaine 5 % topical patch 1 patch topical QHS Unknown History aripiprazole 5 mg tablet 5 mg PO QDAY 08/11/24 Unknow n History hydroxyzine HCl 25 mg tablet 25 mg PO TID PRN anxiety 08/11/24 Unknown History aspirin 81 mg tablet,delayed 81 mg PO QDAY 09/16/24 Un known History release fluticasone 250 mcg-salmeterol 50 1 ea inhalation BID 10/01/24 07/19/25 History mcg/dose blistr powdr for inhalation (Advair Diskus) fluticasone propionate 50 2 spray intranasal QDAY 11/24 Unknown History mcg/actuation nasal spray,suspension (Allergy Relief (fluticasone)) amlodipine 5 mg tablet 5 mg PO QDAY #90 tabs 07/19/25 07:30 Rx metoprolol succinate 50 mg 50 mg PO QDAY #90 tabs 12/2207/19/25 Rx tablet,extended release 24 hr tramadol 50 mg tablet 100 mg PO Q8H PRN pain 04/01 Unknown History cinnamon bark 500 mg capsule 2,000 mg PO BID 07/15/25 Unknown History (Cinnamon) naproxen 500 mg tablet,delayed 500 mg PO BID 07/15/25 07/14/25 History release pregabalin 200 mg capsule 200 mg PO TID PRN pain (scal e 07/15/25 Unknown History score 1-3) tirzepatide 5 mg/0.5 mL 5 mg subcut MO 07/15/2506/30 History subcutaneous pen injector (Gertrudis) tizanidine 4 mg tablet 4 mg PO BID PRN muscle spast icity 07/15/25 Unknown History Allergy/AdvReac Type Severity Reaction Status Date / Time No Known Allergies Allergy Verified 07/15/25 09:15 Family History Mother Heart disease Father Cancer Surgical History Hx of arthroscopic knee surgery H/O angioplasty S/P insertion of iliac artery stent (~05/2022) History of carotid endarterectomy History of oophorectomy History of cardiac catheterization History of spinal surgery History of colonoscopy Presence of stent in coronary artery Hx of CABG History of hysterectomy History of cholecystectomy Social History Smoking Status: Former smoker Tobacco: How many years used: 38 how long ago did patient quit smokin months second hand exposure: Yes Review of Systems (Anesthesia) ROS Narrative System reviewed and no additional complaints, except as documented. 07/19/25 1105 > Date _ Uriel Meek MD Cosigner Signature: Date CC: ~ Signed [facility]09-25-2025 NoteHNO ID: [id number] Author: MAYANK SHEEHAN MD Service: ? Author Type: Physician Type: Progress Notes Filed: 06/24/2025 16:00 Note Text: Mayank Sheehan MD Orthopaedic Spine Surgery [address] [place] [address], [address], [place] [address] FAX: [phone] Spine Surgery Outpatient Note Service Date: 06/24/2025 Chief Complaint: Follow-up visit for lumbar radiculopathy History of Present Illness Chidi Musa is a 60 year old female with who was last seen in the office on 03/25/2025 for post-op follow-up of cervical spine surgery. At our prior visit I recommended follow-up at 1 year. Chidi Musa presents today for review of her recent lumbar MRI ordered by pain management. She reports pain in the lumbar spine radiating to the bilateral lower extremities. She has an ELKIN scheduled with pain management on 07/29/25, but wanted to discuss with me before proceeding. The following portions of the patient's history were reviewed and updated as appropriate: allergies, current medications, past family history, past medical history, past social history, past surgical history and problem list. ACTIVE PROBLEM LIST Cervical Spondylosis With Myelopathy Chronic Right Shoulder Pain Long-Term Current Use of Opiate Analgesic Lumbosacral Spondylosis Without Myelopathy Preop Testing Cervical Myelopathy (Formerly [facility]) Cad (Coronary Artery Disease) Sleep Apnea History of Coronary Artery Bypass Graft Stented Coronary Artery Htn (Hypertension) Diabetes Mellitus, Type 2 (Formerly [facility]) Arthritis History of Psychiatric Care Obesity, Class I, Bmi 30-34.9 Other Specified Postprocedural States S/P Cervical Spinal Fusion Lumbosacral Spondylosis With Radiculopathy PAST MEDICAL HISTORY Diagnosis Date Back pain [facility] Dr. Jorge follows Coronary artery disease 1 stent placed 09/08/19 Dr. Maldonado follows, started managaing care in 12/2023 Depression PCP manages Diabetes ([facility]) PCP manages Generalized anxiety disorder PCP manages GERD (gastroesophageal reflux disease) controlled with meds PCP follows Heart attack ([facility]) 05/2020 CABG X3-Shay Hypertension PCP manages/ controlled on meds Mixed hyperlipidemia controlled with meds PCP follows Neck pain Dr. Sheehan follows- reported falling off pickup truck bed 08/30/24 and has had problems since. muscle spasms down both arms/shoulders AVE (obstructive sleep apnea) sleep study completed 20[facility]. due to anxiety/depression noncompliant with cpap. unable to tolerate mask Other emphysema ([facility]) Maria T Seay N.P. pulmonology vickie. 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 [address] Quintana follows-aspirin/plavix PAST SURGICAL HISTORY Procedure Laterality Date ADDTL NECK SPINE FUSION 06/30/2007 [place] ARTHROTOMY W/MENISCUS REPAIR KNEE Left 06/18/2007 CABG (3) VEIN GRAFTS AND ARTERIAL GRAFT(S) 05/2020 Shiela Rendon PAST SURGICAL HISTORY OF Left 09/02/2024 stent placement Iliac artery PAST SURGICAL HISTORY OF 09/08/2019 1 stent placed in heart REMOVAL GALLBLADDER 04/11/1986 [facility] TOTAL ABDOM HYSTERECTOMY 08/30/2005 at [facility] No family history on file. SOCIAL HISTORY[1] ALLERGIES No Known Allergies Medications: pregablin (LYRICA) 200 mg capsule Take 1 capsule by mouth three times a day for 30 days. diclofenac (VOLTAREN) 1 % topical gel Apply 2 g to affected area four times daily. metoprolol succinate ER (TOPROL XL) 25 mg 24 hr tablet Take 2 tablets by mouth once daily. MOUNJARO 2.5 mg/0.5 mL pen injector Inject 2.5 mg subcutaneously one time a week. PCP amLODIPine (NORVASC) 5 mg tablet Take 1 tablet by mouth once daily. methylPREDNISolone (MEDROL DOSE-PACK) 4 mg Dose-Pack A directed ergocalciferol 50,000 unit capsule (VITAMIN D2, DRISDOL) Take 1 capsule by mouth one time a week. losartan (COZAAR) 25 mg tablet Take 25 mg by mouth once daily. Zttjb-4-HYD-EPA-Fish Oil (FISH OIL) 1,000 (120-180) mg cap Take 2 g by mouth once daily. Last dose 11/09 due to surgery JANUMET 50-1,000 mg per tablet Take 1 tablet by mouth two times a day with meals. (Patient not taking: Reported on 05/18/2025) ARIPiprazole (ABILIFY) 5 mg tablet Take 5 mg by mouth once daily. cariprazine (VRAYLAR) 1.5 mg capsule Take 1.5 mg by mouth once daily. JARDIANCE 10 mg tablet Take 10 mg by mouth once daily. fluconazole (DIFLUCAN) 100 mg tablet Take 100 mg by mouth as needed (yeast infections). fluticasone (FLONASE) 50 mcg/actuation nasal spray Use 2 Sprays in each nostril once daily. hydrOXYzine HCl (ATARAX) 25 mg tablet Take 25 mg by mouth once daily. lidocaine (LIDODERM) 5 % Apply 1 Patch as directed every 12 hours. ARMS aspirin 81 mg cap Take 81 mg by mouth once daily. Dr. Quintana manages. No instructions given albuterol HFA (PROVENTIL HFA, VENTOLIN HFA) (more content not included)...[facility]09-12-2025 Telephone encounter Note* Telephone Encounter - Phillip Haji RN - 06/11/2025 8:58 AM EDT Attempted to call pt, phone message states subscriber not in service, unable to leave a message Phillip Haji RN June 11, 2025 8:59 AM [facility]09-12-2025 Miscellaneous Notes* Telephone Encounter - Phillip Haji RN - 06/11/2025 8:58 AM EDT Attempted to call pt, phone message states subscriber not in service, unable to leave a message Phillip Haji RN June 11, 2025 8:59 AM * Telephone Encounter - Kobi aGrsia PA-C - 06/10/2025 5:19 PM EDT She is on a reasonable dose of Lyrica. I will not increase the dose because the medication was lastfilled on 04/05/2025 which indicates she is taking the less medication than prescribed. [place] remind her the Lyrica can be taken three times a day * Telephone Encounter - Jina Ramirez MA - 06/10/2025 3:17 PM EDT Patient left message on Rx refill line stating she would like a increase in her pregabalin . The current dose is like eating candy and does nothing for her. Would like a call from the office . Jina Ramirez MA June 10, 2025 3:18 PM documented in this encounterThe [facility] History of Present illness Narrative* Phillip Becker RT(R) - 06/11/2025 8:00 AM EDT Radiology Service Progress Note PATIENT NAME: Chidi Musa DATE OF SERVICE: June 11, 2025 TIME: 7:27 AM PATIENT IDENTITY VERIFICATION COMPLETED USING TWO (2) IDENTIFIERS: Name and Date of confirmedby patient verbally. FALL SCREENING: Has the patient had 2 falls in the last year or 1 fall with injury or currently using an Ambulatory Assistive Device (Walker, Cane, Wheelchair, Crutches, etc.)? No PATIENT GENDER DATA: Assigned female at . status: : No status:NO. PATIENT RELEVANT IMPLANT DATA REVIEWED: Yes PATIENT PRESENTS WITH AN IMPLANTABLE OR ATTACHED HEATER TENDER: No RADIOLOGY DEPARTMENT: MR; Exam(s) Completed: Spine: Lumbar spine. Anesthesia: No. Aromatherapy Administered: No PERIPHERAL IV DATA: Not applicable SIGNED BY: ARIANNA Silva) June 11, 2025 7:27 AM documented in this encounterThe [facility]09-12-2025 NoteHNO ID: [id number] Author: PHILLIP BECKER RT (R) Service: ? Author Type: Technologist Type: Progress Notes Filed: 06/11/2025 07:28 Note Text: Radiology Service Progress Note PATIENT NAME: Chidi Musa DATE OF SERVICE: June 11, 2025 TIME: 7:27 AM PATIENT IDENTITY VERIFICATION COMPLETED USING TWO (2) IDENTIFIERS: Name and Date of confirmed by patient verbally. FALL SCREENING: Has the patient had 2 falls in the last year or 1 fall with injury or currently using an Ambulatory Assistive Device (Walker, Cane, Wheelchair, Crutches, etc.)? No PATIENT GENDER DATA: Assigned female at . status: : No status: NO. PATIENT RELEVANT IMPLANT DATA REVIEWED: Yes PATIENT PRESENTS WITH AN IMPLANTABLE OR ATTACHED HEATER TENDER: No RADIOLOGY DEPARTMENT: MR; Exam(s) Completed: Spine: Lumbar spine. Anesthesia: No. Aromatherapy Administered: No PERIPHERAL IV DATA: Not applicable SIGNED BY: Phillip Becker, RT(R) June 11, 2025 7:27 [facility]09-11-2025 Telephone encounter Note* Telephone Encounter - Kobi Garsia PA-C - 06/10/2025 5:19 PM EDT She is on a reasonable dose of Lyrica. I will not increase the dose because the medication was lastfilled on 04/05/2025 which indicates she is taking the less medication than prescribed. [place] remind her the Lyrica can be taken three times a day [facility]09-11-2025 Telephone encounter Note* Telephone Encounter - Jina Ramirez MA - 06/10/2025 3:17 PM EDT Patient left message on Rx refill line stating she would like a increase in her pregabalin . The current dose is like eating candy and does nothing for her. Would like a call from the office . Jina Ramirez MA June 10, 2025 3:18 PM [facility]09-11-2025 Telephone encounter Note* Telephone Encounter - Dinora Galloway - 06/10/2025 7:57 AM EDT Diabetic clearance is in scanned documents. Dinora Galloway June 10, 2025 7:58 AM [facility]09-11-2025 Miscellaneous Notes* Telephone Encounter - Dinroa Galloway - 06/10/2025 7:57 AM EDT Diabetic clearance is in scanned documents. Dinora Galloway June 10, 2025 7:58 AM documented in this encounterThe [facility]09-[facility]-2025 Telephone encounter Note * Telephone Encounter - Palak Borjas LPN - 06/04/2025 2:44 PM EDT Spoke with pt who stated since she started to have chest pain after taking the NSAID, stopped using this, and I already use the lidocaine 5% patches. Discussed if TEN's is being used, stated I haven't for a while, it broke. Suggested asking for a new order next time having a OV and new order can be sent, especially since last purchased under private ins.. [facility]09-05-2025 Miscellaneous Notes* Telephone Encounter - Palak Borjas LPN - 06/04/2025 2:44 PM EDT Spoke with pt who stated since she started to have chest pain after taking the NSAID, stopped using this, and I already use the lidocaine 5% patches. Discussed if TEN's is being used, stated I haven't for a while, it broke. Suggested asking for a new order next time having a OV and new order can be sent, especially since last purchased under private ins.. * Telephone Encounter - Angela Rojo PA-C - 06/04/2025 1:20 PM EDT She could try lidocaine ointment and/or lidocaine patches/salon pas patches over the counter, but unfortunately there aren't any other anti-inflammatory creams to try, and as Kobi has told her previously, she shouldn't use an oral version of an NSAID due to being on plavix. If she has a TENS unit, she could try using that on her shoulder. * Telephone Encounter - Phillip Haji RN - 06/04/2025 12:58 PM EDT Pt states that she started the voltaren gel and developed heart palpitations. She then researched it and states it has heart attack and stroke warning, pt states she is already a heart patient and will not continue to use this medication. She is asking for something in its place to help with her pain. Phillip Haji RN June 04, 2025 1:00 PM documented in this encounterThe [facility]09-05-[facility]25 Evaluation + Plan note Future Scheduled Tests Laboratory* Complete Blood Count 06/04/25 [facility] 09-05-2025 Telephone encounter Note* Telephone Encounter - Angela Rojo PA-C - 06/04/2025 1:20 PM EDT She could try lidocaine ointment and/or lidocaine patches/salon pas patches over the counter, but unfortunately there aren't any other anti-inflammatory creams to try, and as Kobi has told her previously, she shouldn't use an oral version of an NSAID due to being on plavix. If she has a TENS unit, she could try using that on her shoulder. [facility] Work Phone: [phone]) 606-425009-05-2025 Telephone encounter Note* Telephone Encounter - Phillip Haji RN - 06/04/2025 12:58 PM EDT Pt states that she started the voltaren gel and developed heart palpitations. She then researched it and states it has heart attack and stroke warning, pt states she is already a heart patient and will not continue to use this medication. She is asking for something in its place to help with her pain. Phillip Haji RN June 04, 2025 1:00 PM [facility]09-02-2025 Telephone encounter Note* Telephone Encounter - Palak Borjas LPN - 06/01/2025 3:42 PM EDT Spoke with pt who stated she did not get the voltaren gel yet I don't know what pharmacy that wentto. Explained what pharmacy. Stated I don't think I have any lyrica also. Explained pregabalin is lyrica and script was sent on 05/18/25, to check with pharmacy on both orders. Encouraged use thesemedications for pain relief as ordered. [facility]09-02-2025 Miscellaneous Notes* Telephone Encounter - Palak Borjas LPN - 06/01/2025 3:42 PM EDT Spoke with pt who stated she did not get the voltaren gel yet I don't know what pharmacy that wentto. Explained what pharmacy. Stated I don't think I have any lyrica also. Explained pregabalin is lyrica and script was sent on 05/18/25, to check with pharmacy on both orders. Encouraged use thesemedications for pain relief as ordered. * Telephone Encounter - Palak Borjas LPN - 06/01/2025 1:47 PM EDT Left message on Id'd VM asking if she has used cream that was ordered and how often, to return callto Nurseline. * Telephone Encounter - Jina Ramirez MA - 06/01/2025 1:11 PM EDT Patient called Rx refill line asking for a call back. She states her pregabalin (LYRICA) 200 mg capsule isn't helping with her shoulder pain. Requesting something stronger Jina Ramirez MA June 01, 2025 1:13 PM documented in this encounterThe [facility]09-[facility]-2025 Telephone encounter Note * Telephone Encounter - Palak Borjas LPN - 06/01/2025 1:47 PM EDT Left message on Id'd VM asking if she has used cream that was ordered and how often, to return callto Nurseline. [facility]09-02-2025 Telephone encounter Note* Telephone Encounter - Jina Ramirez MA - 06/01/2025 1:11 PM EDT Patient called Rx refill line asking for a call back. She states her pregabalin (LYRICA) 200 mg capsule isn't helping with her shoulder pain. Requesting something stronger Jina Ramirez MA June 01, 2025 1:13 PM [facility]08-28-2025 Telephone encounter Note* Telephone Encounter - Palak Borjas LPN - 05/27/2025 2:45 PM EDT Attempted to reach pt to discuss, no answer or VM set up. [facility]08-28-2025 Miscellaneous Notes* Telephone Encounter - Palak Borjas LPN - 05/27/2025 2:45 PM EDT Attempted to reach pt to discuss, no answer or VM set up. * Telephone Encounter - Celine Hamilton MA - 05/26/2025 1:05 PM EDT Patient called in about a pain cream that was suppose to be ordered for her. documented in this encounterThe [facility]08-27-2025 Telephone encounter Note * Telephone Encounter - Celine Hamilton MA - 05/26/2025 1:05 PM EDT Patient called in about a pain cream that was suppose to be ordered for her. [facility]08-21-2025 Telephone encounter Note* Telephone Encounter - Paalk Borjas LPN - 05/20/2025 11:07 AM EDT Steroid clearance form faxed to Deo Walter PCP at this time. Pt informed of this information and that she will need to work with her PCP on a possible sliding scale and that she does not need to stopthe blood thinners for this procedure, stated ok. [facility]08-21-2025 Miscellaneous Notes* Telephone Encounter - Palak Borjas LPN - 05/20/2025 11:07 AM EDT Steroid clearance form faxed to Deo Walter PCP at this time. Pt informed of this information and that she will need to work with her PCP on a possible sliding scale and that she does not need to stopthe blood thinners for this procedure, stated ok. * Telephone Encounter - Kobi Garsia PA-C - 05/20/2025 8:08 AM EDT She does not need to stop her blood thinner for the nerve blk. She needs to discuss medication/sliding scale to manage her blood sugar due to the steroids. * Telephone Encounter - Phillip Haji RN - 05/19/2025 1:33 PM EDT Pt states she spoke to her vasuclar surgeon, harlan Quintana dr, Rehan, and medical provider , MURTAZA Walter, about stopping blood thinner for procedure, ASA 81 and Plavix 75. Pt states she has gotten the okay to procedure with procedure as scheduled. Phillip Haji RN May 19, 2025 1:44 PM documented in this encounterThe [facility]08-21-2025 Telephone encounter Note * Telephone Encounter - Kobi Garsia PA-C - 05/20/2025 8:08 AM EDT She does not need to stop her blood thinner for the nerve blk. She needs to discuss medication/sliding scale to manage her blood sugar due to the steroids. [facility]08-20-2025 Telephone encounter Note* Telephone Encounter - Phillip Haji RN - 05/19/2025 1:33 PM EDT Pt states she spoke to her vasuclar surgeon, Mariano, heart Joel william, and medical provider , MURTAZA Walter, about stopping blood thinner for procedure, ASA 81 and Plavix 75. Pt states she has gotten the okay to procedure with procedure as scheduled. Phillip Haji RN May 19, 2025 1:44 PM [facility]08-19-2025 Telephone encounter Note* Telephone Encounter - Chrissie Sarah RN - 05/18/2025 1:35 PM EDT Pt contacted as to below and acknowledges below as well as to contact [facility] with any updates, questions, or concerns. Chrissie Sarah RN May 18, 2025 1:36 PM [facility]08-19-2025 Miscellaneous Notes* Telephone Encounter - Chrissie Sarah RN - 05/18/2025 1:35 PM EDT Pt contacted as to below and acknowledges below as well as to contact [facility] with any updates, questions, or concerns. Chrissie Sarah RN May 18, 2025 1:36 PM * Telephone Encounter - Kobi Garsia PA-C - 05/18/2025 9:59 AM EDT Can you ask pt to contact her PCP and notify her of her upcoming procedure in case her diabetic medications need adjusted after the procedure? *Im unable to message the PCP directly (not [facility]) and was unable to reach the provider on the numbergiven documented in this encounterThe [facility]08-19-2025 Telephone encounter Note * Telephone Encounter - Kobi Garsia PA-C - 05/18/2025 9:59 AM EDT Can you ask pt to contact her PCP and notify her of her upcoming procedure in case her diabetic medications need adjusted after the procedure? *Im unable to message the PCP directly (not [facility]) and was unable to reach the provider on the numbergiven [facility]08-19-20[facility] Instructions* Patient Instructions* Kobi Garsia PA-C - 05/18/2025 9:38 AM EDT Order lumbar MRI to rule out nerve impingement. Lumbar CT and xray from 2023 showed spondylolisthesis at L1 on L2 reduced in flexion as well as b/l NF stenosis at L5-S1. Consider interventions for lumbar spine after MRI is reviewed Pt unable to afford PT at this time. Continue self guided exercises for neck pain. Proceed with right suprascapular nerve blk scheduled for May 20. Will message PCP in regards to use of steroids in the procedure (Pt is a brittle diabetic) - consider 1/2 dose of steroid. Consider RFA if procedure helps for short duration only Follow up with Dr Overton for shoulder pain as needed (not a surgical candidate unless able to reduce blood sugar) Increase Lyrica to 200 mg three times a day - if sedating, reduce it to twice a day Refill Tizanidine, recommend using primarily at night Pt is prescribed Tramadol by her PCP Follow up in 3 months documented in this encounterThe [facility]08-19-2025 NoteHNO ID: [id number] Author: KOBI GARSIA PA-C Service: ? Author Type: Physician Manufacturing Helper Type: Progress Notes Filed: 05/18/2025 10:02 Note Text: PATIENT: Chidi Musa : 1965 DATE OF SERVICE: 05/18/2025 REFERRING PRACTITIONER: No ref. provider found PRIMARY CARE PROVIDER: Josephine Walter CNP CHIEF COMPLAINT: Patient presents with: Pain: Neck Shoulder Low back HISTORY OF PRESENT ILLNESS: Chidi Musa is a 59 year old year old female who presents to the clinic today with chief complaint(s) as above. Following up for: chronic pain, neck pain, right shoulder pain, low back pain Response to treatment recommendations: Lyrica and Tizanidine reduces pain levels but pain is still difficult to control. PCP prescribes Tramadol, medication is not as helpful as before. Pt stopped PT due affordability.This was helping the neck pain but not right shoulder pain. Pt scheduled for suprascapular nerve blk on 05/20/2025. She has seen Dr Overton recently and is not a surgical candidate unless able to reduce blood sugar. Increased low back pain for the past 3 months, pain radiates to both legs, not improved with conservative treatment Current primary concern/description: low back pain/aching, throbbing Pain Level: 10 /10 Better with: heat, positioning Worse with: walking or sitting for long Numbness/Tingling: [x] Yes [] No both legs/calves Bladder/bowel fxn change: [] Yes [x] No --- Review of Systems HENT: Negative. Eyes: Negative. Cardiovascular: Positive for claudication. Respiratory: Negative. Endocrine: Negative. Skin: Negative. Musculoskeletal: Positive for back pain, joint pain, muscle weakness, myalgias, neck pain and stiffness. Gastrointestinal: Negative. Genitourinary: Negative. Neurological: Positive for loss of balance and paresthesias. Psychiatric/Behavioral: Positive for depression. The patient has insomnia. === HISTORY: ALLERGIES No Known Allergies PAST MEDICAL HISTORY Diagnosis Date Back pain [facility] Pain management Dr. Jorge follows Coronary artery disease 1 stent placed 09/08/19 Dr. Maldonado follows, started managaing care in 12/2023 Depression PCP manages Diabetes ([facility]) PCP manages Generalized anxiety disorder PCP manages GERD (gastroesophageal reflux disease) controlled with meds PCP follows Heart attack ([facility]) 05/2020 CABG X3-[place] Hypertension PCP manages/ controlled on meds Mixed hyperlipidemia controlled with meds PCP follows Neck pain Dr. Sheehan follows- reported falling off pickup truck bed 08/30/24 and has had problems since. muscle spasms down both arms/shoulders AVE (obstructive sleep apnea) sleep study completed 2023 in [facility]. due to anxiety/depression noncompliant with cpap. unable to tolerate mask Other emphysema ([facility]) Maria T Seay N.P. pulmonology [place]. 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 [address] Quintana follows-aspirin/plavix PAST SURGICAL HISTORY Procedure Laterality Date ADDTL NECK SPINE FUSION 06/30/2007 [place] ARTHROTOMY W/MENISCUS REPAIR KNEE Left 06/18/2007 CABG (3) VEIN GRAFTS AND ARTERIAL GRAFT(S) 05/2020 [facility] Rendon PAST SURGICAL HISTORY OF Left 09/02/2024 stent placement Iliac artery PAST SURGICAL HISTORY OF 09/08/2019 1 stent placed in heart REMOVAL GALLBLADDER 04/11/1986 [facility] TOTAL ABDOM HYSTERECTOMY 08/30/2005 at [facility] No family history on file. SOCIAL HISTORY[1] Current Outpatient Medications Medication Sig pregabalin (LYRICA) 150 mg capsule Take 1 capsule by mouth three times a day for 30 days. amLODIPine (NORVASC) 5 mg tablet Take 1 tablet by mouth once daily. methylPREDNISolone (MEDROL DOSE-PACK) 4 mg Dose-Pack A directed ergocalciferol 50,000 unit capsule (VITAMIN D2, DRISDOL) Take 1 capsule by mouth one time a week. losartan (COZAAR) 25 mg tablet Take 25 mg by mouth once daily. Jgwkn-5-PNL-EPA-Fish Oil (FISH OIL) 1,000 (120-180) mg cap Take 2 g by mouth once daily. Last dose 11/09 due to surgery JANUMET 50-1,000 mg per tablet Take 1 tablet by mouth two times a day with meals. ARIPiprazole (ABILIFY) 5 mg tablet Take 5 mg by mouth once daily. cariprazine (VRAYLAR) 1.5 mg capsule Take 1.5 mg by mouth once daily. JARDIANCE 10 mg tablet Take 10 mg by mouth once daily. fluconazole (DIFLUCAN) 100 mg tablet Take 100 mg by mouth as needed (yeast infections). fluticasone (FLONASE) 50 mcg/actuation nasal spray Use 2 Sprays in each nostril once daily. hydrOXYzine HCl (ATARAX) 25 mg tablet Take 25 mg by mouth once daily. lidocaine (LIDODERM) 5 % Apply 1 Patch as directed every 12 hours. ARMS aspirin 81 mg cap Take 81 mg by mouth once daily. Dr. Quintana manages. No instructions given albuterol HFA (PROVENTIL HFA, VENTOLIN HFA) 90 mcg/actuation inhaler Inhale 1-2 Puffs as (more content not included)...[facility]08-19-2025 History of Present illness Narrative* Kobi Garsia PA-C - 05/18/2025 9:04 AM EDT PATIENT: Chidi Musa : 1965 DATE OF SERVICE: 05/18/2025 REFERRING PRACTITIONER: No ref. provider found PRIMARY CARE PROVIDER: Josephine Walter CNP CHIEF COMPLAINT: Patient presents with: Pain: Neck Shoulder Low back HISTORY OF PRESENT ILLNESS: Chidi Musa is a 59 year old year old female who presents to the clinic today with chief complaint(s) as above. Following up for: chronic pain, neck pain, right shoulder pain, low back pain Response to treatment recommendations: Lyrica and Tizanidine reduces pain levels but pain is still difficult to control. PCP prescribes Tramadol, medication is not as helpful as before. Pt stopped PTdue affordability.This was helping the neck pain but not right shoulder pain. Pt scheduled for suprascapular nerve blk on 05/20/2025. She has seen Dr Overton recently and is not a surgical candidate unless able to reduce blood sugar. Increased low back pain for the past 3 months, pain radiates to both legs, not improved with conservative treatment Current primary concern/description: low back pain/aching, throbbing Pain Level: 10 /10 Better with: heat, positioning Worse with: walking or sitting for long Numbness/Tingling: [x] Yes [] No both legs/calves Bladder/bowel fxn change: [] Yes [x] No --- Review of Systems HENT: Negative. Eyes: Negative. Cardiovascular: Positive for claudication. Respiratory: Negative. Endocrine: Negative. Skin: Negative. Musculoskeletal: Positive for back pain, joint pain, muscle weakness, myalgias, neck pain and stiffness. Gastrointestinal: Negative. Genitourinary: Negative. Neurological: Positive for loss of balance and paresthesias. Psychiatric/Behavioral: Positive for depression. The patient has insomnia. === HISTORY: ALLERGIES No Known Allergies PAST MEDICAL HISTORY Diagnosis Date Back pain [facility] Pain management Dr. Jorge follows Coronary artery disease 1 stent placed 09/08/19 Dr. Maldonado follows, started managaing care in 12/2023 Depression PCP manages Diabetes ([facility]) PCP manages Generalized anxiety disorder PCP manages GERD (gastroesophageal reflux disease) controlled with meds PCP follows Heart attack ([facility]) 05/2020 CABG X3-[place] Hypertension PCP manages/ controlled on meds Mixed hyperlipidemia controlled with meds PCP follows Neck pain Dr. Sheehan follows- reported falling off pickup truck bed 08/30/24 and has had problems since. musclespasms down both arms/shoulders AVE (obstructive sleep apnea) sleep study completed 2023 in [facility]. due to anxiety/depression noncompliant with cpap. unable to tolerate mask Other emphysema ([facility]) Maria T Seay N.P. pulmonology [place]. 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 [address] Quintana follows-aspirin/plavix PAST SURGICAL HISTORY Procedure Laterality Date ADDTL NECK SPINE FUSION 06/30/2007 [place] ARTHROTOMY W/MENISCUS REPAIR KNEE Left 06/18/2007 CABG (3) VEIN GRAFTS & ARTERIAL GRAFT(S) 05/2020 [facility] Rendon PAST SURGICAL HISTORY OF Left 09/02/2024 stent placement Iliac artery PAST SURGICAL HISTORY OF 09/08/2019 1 stent placed in heart REMOVAL GALLBLADDER 04/11/1986 [facility] TOTAL ABDOM HYSTERECTOMY 08/30/2005 at [facility] No family history on file. SOCIAL HISTORY[1] Current Outpatient Medications Medication Sig pregabalin (LYRICA) 150 mg capsule Take 1 capsule by mouth three times a day for 30 days. amLODIPine (NORVASC) 5 mg tablet Take 1 tablet by mouth once daily. methylPREDNISolone (MEDROL DOSE-PACK) 4 mg Dose-Pack A directed ergocalciferol 50,000 unit capsule (VITAMIN D2, DRISDOL) Take 1 capsule by mouth one time a week. losartan (COZAAR) 25 mg tablet Take 25 mg by mouth once daily. Gozgt-4-PIK-EPA-Fish Oil (FISH OIL) 1,000 (120-180) mg cap Take 2 g by mouth once daily. Last dose 11/09 due to surgery JANUMET 50-1,000 mg per tablet Take 1 tablet by mouth two times a day with meals. ARIPiprazole (ABILIFY) 5 mg tablet Take 5 mg by mouth once daily. cariprazine (VRAYLAR) 1.5 mg capsule Take 1.5 mg by mouth once daily. JARDIANCE 10 mg tablet Take 10 mg by mouth once daily. fluconazole (DIFLUCAN) 100 mg tablet Take 100 mg by mouth as needed (yeast infections). fluticasone (FLONASE) 50 mcg/actuation nasal spray Use 2 Sprays in each nostril once daily. hydrOXYzine HCl (ATARAX) 25 mg tablet Take 25 mg by mouth once daily. lidocaine (LIDODERM) 5 % Apply 1 Patch as directed every 12 hours. ARMS aspirin 81 mg cap Take 81 mg by mouth once daily. Dr. Quintana manages. No instructions given albuterol HFA (PROVENTIL HFA, VENTOLIN HFA) 90 mcg/actuation inhaler Inhale 1-2 Puffs as instructedevery 6 hours as needed for wheezing/shortness of breath. atorvastatin (LIPITOR) 40 mg tablet Take 40 mg by mouth once daily. clopidogrel (PLAVIX) 75 mg tablet Take 75 mg by mouth once daily. Dr. Quintana manages fluticasone-salmeterol (ADVAIR, WIXELA) 250-50 mcg/dose inhaler Inhale 1 Inhalation as instructed two times a day. metoprolol succinate ER (TOPROL XL) 25 mg 24 hr tablet Take 25 mg by mouth once daily. (Patient taking differently: Take 50 mg by mouth once daily.) pantoprazole DR (PROTONIX) 40 mg tablet Take 40 mg by mouth every afternoon. No current facility-administered medications for this visit. OBJECTIVE: VS: BP 118/61 (BP Site: Left Arm, BP Position: Sitting, BP Cuff Size: Large Adult) Pulse 75 Resp 16 Ht 160 cm (5' 3) Wt 75.1 kg (165 lb 9.1 oz) SpO2 98% BMI 29.33 kg/m Body mass index is 29.33 kg/m . PHYSICAL EXAMINATION: Physical Exam Constitutional: Appearance: Normal appearance. HENT: Head: Normocephalic and atraumatic. Cardiovascular: Rate and Rhythm: Normal rate. Pulmonary: Effort: Pulmonary effort is normal. Musculoskeletal: General: minimal ROM of right shoulder-all planes, +impingement signs on the right, pt guards the arm Cervical: straighten lordosis, TTP trapezius bilateral. + Gray on the right Lumbar: pain with facet palpation, pain with palpation of right SI joint, neg SLR. Limited ROM on extension and lateral bending Right lower leg: No edema. Palpable pulse Left lower leg: No edema. Palpable pulse Skin: General: Skin is warm. Capillary Refill: Capillary refill takes less than 2 seconds. Neurological: Mental Status: pt is alert and oriented to person, place, and time. Mental status is at baseline. Sensory: No sensory deficit. Motor: diminished bicipital strength on the right Gait: leaning forward Psychiatric: Mood and Affect: Mood normal. Diagnostic Imaging: Last MRI Cervical Spine - Impression Only MRI CERVICAL SPINE WO IVCON Exam End: 03/10/2025 8:40 AM (Final result) Impression: IMPRESSION: Post surgical changes of the cervical spine with improved canal patency at C5-6, as discussed. Hardware is better characterized on same day CT. No new high-grade canal stenosis. Suboptimal evaluation of the neural foramina at C5-6, although suspect mild to moderate persistent neural foraminal narrowing. Similar myelomalacia at C5-6.... Last CT Cervical Spine - Impression Only CT CERVICAL SPINE WO IVCON Collected: 03/10/2025 8:51 AM (Final result) Impression: IMPRESSION: Interval postsurgical changes related to C5 posterior decompression and C4-C6 posterior instrumentation. Mild periprostatic lucency surrounding both C6 lateral mass screws, suspicious for hardware loosening. No evidence of hardware fracture. Stable postsurgical changes related to prior C6-7 ACDF. Canal and neural foraminal stenoses are better characterized on same-day ... Last MRI Shoulder - Impression Only MRI SHOULDER WO IVCON RIGHT Exam End: 01/21/2025 8:09 AM (Final result) Impression: IMPRESSION: Rotator cuff tendinosis with small high-grade partial-thickness supraspinatus rotator cuff tear at the leading edge. No atrophy. Capsular edema and thickening which can be seen with adhesive capsulitis. Superior labral tear. ... Last XR Lumbar Spine - Impression Only XR LUMBAR MOTION 4V AP/LAT/ FLEX/EXT Exam End: 09/04/2024 8:19 AM (Final result) Impression: IMPRESSION: See result. 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: PILLO Transcribe Date/Time: Sep 08 2024 1:33A ... CT LUMBAR (2023) RESULT: Lumbar spine: There are 5 lumbar type vertebral bodies. Normal lumbar lordosis is maintained. Vertebral body heights are maintained. There is mild multilevel intervertebral disc height loss. Multilevel facet hypertrophy is present. There is mild spinal canal stenosis at the L2-L3 level with mild bilateral neural foraminal narrowing. There is mild spinal canal stenosis at the L3-L4 level with moderate left and mild right neural foraminal narrowing. There is mild spinal canal stenosis at the L4-L5 level with moderate bilateral neural foraminal narrowing. There is moderate bilateral neural foraminal narrowing at the L5-S1 level. Calcified atherosclerosis is present and there is a vascular stent in the left external iliac artery. Sacrum and coccyx: Demineralization diminishes evaluation. Degenerative changes are present in the sacroiliac joints. There is no fracture or dislocation. Other Diagnostic Studies: The [facility] report has been reviewed and is consistent with the patients medical history and medication intake. IMPRESSION: (M54.16) Lumbar radiculopathy (primary encounter diagnosis) (M47.12) Cervical spondylosis with myelopathy (M25.511, G89.29) Chronic right shoulder pain (M75.01) Adhesive capsulitis of right shoulder (M79.18) Myofascial pain (M96.1) Cervical postlaminectomy syndrome (M47.816) Lumbar spondylosis (M47.817) Lumbosacral spondylosis without myelopathy (M43.06) Lumbar spondylolysis (M43.16) Spondylolisthesis of lumbar region Chidi Musa is a 59 year old female here with the following issues: Neck pain , s/p C4-6 PSF on 11/30/[address] Sheehan. Paresthesia improved. Neck is, overall, 75% better. Previously, she had C6-7 ACDF at [facility] in 2017 Myofascial pain Right shoulder pain. History of rotator cuff tear and currently with adhesive capsulitis. Pt sees Dr Overton but is not a surgical candidate due to poor glycemic control Pt saw Dr Sheehan on 03/25/2025 - CT Cervical showed a well decompressed canal and foramina at C5-6. It shows mild loosening around C6 screws concerning for early loosening. Nonetheless, Dr Sheehan cleared pt for shoulder surgery Increased low back pain with radiation to both legs following L5 dermatomal pattern. Pain worsen 3 months ago. Patient denies any injuries or trauma prior to the increased pain. On previous image, ptis known to have spondylolisthesis at L1-2 (with changes in flexion) and moderate NF stenosis at L5-S1 PLAN: -Recommend: Order lumbar MRI to rule out nerve impingement. Lumbar CT and xray from 2023 showed spondylolisthesis at L1 on L2 reduced in flexion as well as b/l NF stenosis at L5-S1. Consider interventions for lumbar spine after MRI is reviewed Pt unable to afford PT at this time. Continue self guided exercises for neck pain. Proceed with right suprascapular nerve blk scheduled for May 20. Patient will contact PCP in regards to use of steroids in the procedure - consider 1/2 dose of steroid only. Consider RFA if procedure helps for short duration only Follow up with Dr Overton for shoulder pain as needed (not a surgical candidate unless able to reduce blood sugar) Increase Lyrica to 200 mg three times a day - if sedating, reduce it to twice a day Refill Tizanidine, recommend using primarily at night Pt is prescribed Tramadol by her PCP Follow up in 3 months The risks, benefits, alternative treatment options and prognosis were discussed and all of patient's questions/concerns were addressed. Follow-up: 3 months May certainly follow up sooner if needed. This note was produced using voice recognition software and therefore may contain typos. Please contact the author with any questions or concerns. Author: Kobi Garsia PA-C 05/18/2025 9:04 AM During this patient visit I have spent approximately 30 minutes out of 50 in counseling regarding treatment options, test results,medications and coordinating care. [1] Social History Tobacco Use Smoking status: Former Current packs/day: 1.00 Average packs/day: 1 pack/day for 38.0 years (38.0 ttl pk-yrs) Types: Cigarettes Smokeless tobacco: Never Vaping Use Vaping status: Former Substance Use Topics Alcohol use: Yes Drug use: Not Currently Types: Marijuana Comment: occasionally marijuana [facility] NoteHNO ID: [id number] Author: VALENTE HERNANDEZ, PT Service: ? Author Type: Physical Therapist Type: Progress Notes Filed: 05/06/2025 15:32 Note Text: 05/06/2025 [facility] PHYSICAL THERAPY DISCONTINUANCE OF CARE Plan of Care Period: Start of Care Date: 01/13/25 Last Visit Date: 03/03/2025 Therapy Program: The following is a summary of the interventions provided for this episode of care; Therapeutic exercise, Manual therapy, and [facility] management Assessment: The following is the goal status: Updated: 02/04/25 and 02/26/25 Goals for Episode of Care: established 01/13/25 Patient reported outcome of physical function will increase T-score by a minimum 5 points. - MET, will monitor (improved by 7 points) [place] in home exercise program. - MET, will continue and progress to tolerance. Patient will decrease R shoulder pain rating by 2 points to meet minimal clinical important difference for numeric pain rating scale. - Not MET, will continue Patient will increase active ROM of R shoulder to WFL, symmetrical and pain-free to allow pt to to improve performance of ADLs. - Partially MET, will continue Perform reaching, lifting, dressing and grooming with decreased report of symptoms/pain in 6 weeks. - Not MET, will continue Patient will decrease neck pain rating by 2 points to meet minimal clinical important difference for numeric pain rating scale.- MET, will monitor Restore pain free cervical ROM to WFL to allow for improved tolerance with design tech. - Partially MET, will continue Sleep throughout the night without pain/symptoms. - Not MET, will continue Patient will increase strength of postural muscles to WFL to allow for improve ability to maintain proper posture, improve mechanics, and decrease pain. - Partially MET, will continue Patient Goals: decrease pain and be able to plant lira this spring. Walk dog - Not MET, will continue Based on the most recent progress report, patient was progressing slower than expected toward functional goals based on documented subjective information on progress and no improvement in R shoulder and UE. . Reason for Discontinuation of Care: Patient has not returned to therapy or scheduled additional follow-up appointments. Valente Hernandez, [facility]06-26-2025 NoteHNO ID: [id number] Author: MAYANK SHEEHAN MD Service: ? Author Type: Physician Type: Progress Notes Filed: 03/25/2025 11:57 Note Text: Mayank Sheehan MD [facility] General Orthopedics - Orthopaedic Spine Surgeon [address], [address], [address], [place] [address] Phone: [phone] FAX: [phone] Spine Surgery Post-op Follow-up Service Date: 03/25/2025 Surgery Date: 11/30/2024 Surgery(ies): C4-6 PSF, C5 laminectomy Pre-operative Symptoms: Cervical spine pain with radiation to bilateral upper extremities, bilateral upper extremity weakness, gait imbalance, dexterity issues HPI: Chidi Musa is seen for 3-month post operative follow up. At our prior visit Grant was having continued pain in the right shoulder. Although we felt this was likely related to intrinsic pathology in the shoulder itself I did recommend obtaining CT and MRI of the cervical spine. She presents today as a virtual visit. She has had no change in symptoms. She is anxious to get the right shoulder addressed. No worsening of neck pain. ALLERGIES No Known Allergies Current Outpatient Medications Medication Sig Dispense Refill pregabalin (LYRICA) 150 mg capsule Take 1 capsule by mouth three times a day for 30 days. 90 capsule 1 amLODIPine (NORVASC) 5 mg tablet Take 1 tablet by mouth once daily. methylPREDNISolone (MEDROL DOSE-PACK) 4 mg Dose-Pack A directed ergocalciferol 50,000 unit capsule (VITAMIN D2, DRISDOL) Take 1 capsule by mouth one time a week. losartan (COZAAR) 25 mg tablet Take 25 mg by mouth once daily. Uqokr-0-FJZ-EPA-Fish Oil (FISH OIL) 1,000 (120-180) mg cap Take 2 g by mouth once daily. Last dose 11/09 due to surgery JANUMET 50-1,000 mg per tablet Take 1 tablet by mouth two times a day with meals. ARIPiprazole (ABILIFY) 5 mg tablet Take 5 mg by mouth once daily. cariprazine (VRAYLAR) 1.5 mg capsule Take 1.5 mg by mouth once daily. JARDIANCE 10 mg tablet Take 10 mg by mouth once daily. fluconazole (DIFLUCAN) 100 mg tablet Take 100 mg by mouth as needed (yeast infections). fluticasone (FLONASE) 50 mcg/actuation nasal spray Use 2 Sprays in each nostril once daily. hydrOXYzine HCl (ATARAX) 25 mg tablet Take 25 mg by mouth once daily. lidocaine (LIDODERM) 5 % Apply 1 Patch as directed every 12 hours. ARMS aspirin 81 mg cap Take 81 mg by mouth once daily. Dr. Quintana manages. No instructions given albuterol HFA (PROVENTIL HFA, VENTOLIN HFA) 90 mcg/actuation inhaler Inhale 1-2 Puffs as instructed every 6 hours as needed for wheezing/shortness of breath. atorvastatin (LIPITOR) 40 mg tablet Take 40 mg by mouth once daily. clopidogrel (PLAVIX) 75 mg tablet Take 75 mg by mouth once daily. Dr. Quintana manages fluticasone-salmeterol (ADVAIR, WIXELA) 250-50 mcg/dose inhaler Inhale 1 Inhalation as instructed two times a day. metoprolol succinate ER (TOPROL XL) 25 mg 24 hr tablet Take 25 mg by mouth once daily. (Patient taking differently: Take 50 mg by mouth once daily.) pantoprazole DR (PROTONIX) 40 mg tablet Take 40 mg by mouth every afternoon. No current facility-administered medications for this visit. Physical Examination: No examination performed today as visit was conducted virtually. Imaging Last MRI Cervical Spine - Impression Only MRI CERVICAL SPINE WO IVCON Exam End: 03/10/2025 8:40 AM (Final result) Impression: IMPRESSION: Post surgical changes of the cervical spine with improved canal patency at C5-6, as discussed. Hardware is better characterized on same day CT. No new high-grade canal stenosis. Suboptimal evaluation of the neural foramina at C5-6, although suspect mild to moderate persistent neural foraminal narrowing. Similar myelomalacia at C5-6.... Last CT Cervical Spine - Impression Only CT CERVICAL SPINE WO IVCON Collected: 03/10/2025 8:51 AM (Final result) Impression: IMPRESSION: Interval postsurgical changes related to C5 posterior decompression and C4-C6 posterior instrumentation. Mild periprostatic lucency surrounding both C6 lateral mass screws, suspicious for hardware loosening. No evidence of hardware fracture. Stable postsurgical changes related to prior C6-7 ACDF. Canal and neural foraminal stenoses are better characterized on same-day ... CT and MRI of the cervical spine independently reviewed. Radiology reports reviewed. Imaging demonstrates C4-6 PSF instrumentation appropriate position. Mild loosening around C6 screws concerning for early loosening. Well decompressed canal and foramina C5-6. Assessment 59 year old female who presents 3 months status-post C4-6 PSF, C5 laminectomy: recovering well from cervical spine surgery with severe right shoulder pain secondary to adhesive capsulitis, labral tear, and rotator cuff tear. Plan May resume to all activities as tolerated. May proceed with right shoulder surgery with provider first choice at earliest convenience (more content not included)...[facility]06-26-2025 History of Present illness Narrative* Mayank Sheehan MD - 03/25/2025 11:53 AM EDT Images from the original note were not included. Mayank Sheehan MD [facility] - Orthopaedic Spine Surgeon [address] [facility], [address], [address], [place] [address] Phone: [phone] ([phone] FAX: [phone] Spine Surgery Post-op Follow-up Service Date: 03/25/2025 Surgery Date: 11/30/2024 Surgery(ies): C4-6 PSF, C5 laminectomy Pre-operative Symptoms: Cervical spine pain with radiation to bilateral upper extremities, bilateral upper extremity weakness, gait imbalance, dexterity issues HPI: Chidi Musa is seen for 3-month post operative follow up. At our prior visit Grant was having continued pain in the right shoulder. Although we felt this was likely related to intrinsic pathology in the shoulder itself I did recommend obtaining CT and MRI of the cervical spine. She presents today as a virtual visit. She has had no change in symptoms. She is anxious to get the right shoulder addressed. No worsening of neck pain. ALLERGIES No Known Allergies Current Outpatient Medications Medication Sig Dispense Refill pregabalin (LYRICA) 150 mg capsule Take 1 capsule by mouth three times a day for 30 days. 90 capsule 1 amLODIPine (NORVASC) 5 mg tablet Take 1 tablet by mouth once daily. methylPREDNISolone (MEDROL DOSE-PACK) 4 mg Dose-Pack A directed ergocalciferol 50,000 unit capsule (VITAMIN D2, DRISDOL) Take 1 capsule by mouth one time a week. losartan (COZAAR) 25 mg tablet Take 25 mg by mouth once daily. Ytdpc-6-AIK-EPA-Fish Oil (FISH OIL) 1,000 (120-180) mg cap Take 2 g by mouth once daily. Last dose 11/09 due to surgery JANUMET 50-1,000 mg per tablet Take 1 tablet by mouth two times a day with meals. ARIPiprazole (ABILIFY) 5 mg tablet Take 5 mg by mouth once daily. cariprazine (VRAYLAR) 1.5 mg capsule Take 1.5 mg by mouth once daily. JARDIANCE 10 mg tablet Take 10 mg by mouth once daily. fluconazole (DIFLUCAN) 100 mg tablet Take 100 mg by mouth as needed (yeast infections). fluticasone (FLONASE) 50 mcg/actuation nasal spray Use 2 Sprays in each nostril once daily. hydrOXYzine HCl (ATARAX) 25 mg tablet Take 25 mg by mouth once daily. lidocaine (LIDODERM) 5 % Apply 1 Patch as directed every 12 hours. ARMS aspirin 81 mg cap Take 81 mg by mouth once daily. Dr. Quintana manages. No instructions given albuterol HFA (PROVENTIL HFA, VENTOLIN HFA) 90 mcg/actuation inhaler Inhale 1-2 Puffs as instructedevery 6 hours as needed for wheezing/shortness of breath. atorvastatin (LIPITOR) 40 mg tablet Take 40 mg by mouth once daily. clopidogrel (PLAVIX) 75 mg tablet Take 75 mg by mouth once daily. Dr. Quintana manages fluticasone-salmeterol (ADVAIR, WIXELA) 250-50 mcg/dose inhaler Inhale 1 Inhalation as instructed two times a day. metoprolol succinate ER (TOPROL XL) 25 mg 24 hr tablet Take 25 mg by mouth once daily. (Patient taking differently: Take 50 mg by mouth once daily.) pantoprazole DR (PROTONIX) 40 mg tablet Take 40 mg by mouth every afternoon. No current facility-administered medications for this visit. Physical Examination: No examination performed today as visit was conducted virtually. Imaging Last MRI Cervical Spine - Impression Only MRI CERVICAL SPINE WO IVCON Exam End: 03/10/2025 8:40 AM (Final result) Impression: IMPRESSION: Post surgical changes of the cervical spine with improved canal patency at C5-6, as discussed. Hardware is better characterized on same day CT. No new high-grade canal stenosis. Suboptimal evaluation of the neural foramina at C5-6, although suspect mild to moderate persistent neural foraminal narrowing. Similar myelomalacia at C5-6.... Last CT Cervical Spine - Impression Only CT CERVICAL SPINE WO IVCON Collected: 03/10/2025 8:51 AM (Final result) Impression: IMPRESSION: Interval postsurgical changes related to C5 posterior decompression and C4-C6 posterior instrumentation. Mild periprostatic lucency surrounding both C6 lateral mass screws, suspicious for hardware loosening. No evidence of hardware fracture. Stable postsurgical changes related to prior C6-7 ACDF. Canal and neural foraminal stenoses are better characterized on same-day ... CT and MRI of the cervical spine independently reviewed. Radiology reports reviewed. Imaging demonstrates C4-6 PSF instrumentation appropriate position. Mild loosening around C6 screws concerning forearly loosening. Well decompressed canal and foramina C5-6. Assessment 59 year old female who presents 3 months status-post C4-6 PSF, C5 laminectomy: recovering well fromcervical spine surgery with severe right shoulder pain secondary to adhesive capsulitis, labral tear, and rotator cuff tear. Plan May resume to all activities as tolerated. May proceed with right shoulder surgery with provider first choice at earliest convenience. Follow-up in 9 months for 1 year postop. Advised to call the office if symptoms worsen or new symptoms develop. Patient expressed understanding and is in agreement with plan. Mayank Sheehan MD Orthopaedic Spine Surgery This note was generated all or in part using [employer] voice recognition software and [employer] dictation software. Please excuse any minor errors in spelling, grammar, or punctuation. documented in this encounterThe [facility]06[facility] History of Present illness Narrative* Kevin Robledo RT(R) - 03/10/2025 8:40 AM EDT Radiology Service Progress Note PATIENT NAME: Chidi Musa DATE OF SERVICE: March 10, 2025 TIME: 3:17 PM PATIENT IDENTITY VERIFICATION COMPLETED USING TWO (2) IDENTIFIERS: Name and Date of confirmedby patient verbally. FALL SCREENING: Has the patient had 2 falls in the last year or 1 fall with injury or currently using an Ambulatory Assistive Device (Walker, Cane, Wheelchair, Crutches, etc.)? No PATIENT GENDER DATA: Assigned female at . status: : No status:NO. PATIENT RELEVANT IMPLANT DATA REVIEWED: Yes PATIENT PRESENTS WITH AN IMPLANTABLE OR ATTACHED HEATER TENDER: No RADIOLOGY DEPARTMENT: CT; Exam(s) Completed: Spine PERIPHERAL IV DATA: Not applicable SIGNED BY: RT Verónica(Cale) March 10, 2025 3:17 PM documented in this encounterThe [facility]06-11-2025 NoteHNO ID: [id number] Author: KEVIN ROBLEDO RT(R) Service: ? Author Type: Disk Recordist Type: Progress Notes Filed: 03/10/2025 15:18 Note Text: Radiology Service Progress Note PATIENT NAME: Chidi Musa DATE OF SERVICE: March 10, 2025 TIME: 3:17 PM PATIENT IDENTITY VERIFICATION COMPLETED USING TWO (2) IDENTIFIERS: Name and Date of confirmed by patient verbally. FALL SCREENING: Has the patient had 2 falls in the last year or 1 fall with injury or currently using an Ambulatory Assistive Device (Walker, Cane, Wheelchair, Crutches, etc.)? No PATIENT GENDER DATA: Assigned female at . status: : No status: NO. PATIENT RELEVANT IMPLANT DATA REVIEWED: Yes PATIENT PRESENTS WITH AN IMPLANTABLE OR ATTACHED HEATER TENDER: No RADIOLOGY DEPARTMENT: CT; Exam(s) Completed: Spine PERIPHERAL IV DATA: Not applicable SIGNED BY: RT Verónica(Cale) March 10, 2025 3:17 [facility]06-11-2025 History of Present illness Narrative* Phillip Becker RT(R) - 03/10/2025 8:00 AM EDT Radiology Service Progress Note PATIENT NAME: Chidi Musa DATE OF SERVICE: March 10, 2025 TIME: 8:05 AM PATIENT IDENTITY VERIFICATION COMPLETED USING TWO (2) IDENTIFIERS: Name and Date of confirmedby patient verbally. FALL SCREENING: Has the patient had 2 falls in the last year or 1 fall with injury or currently using an Ambulatory Assistive Device (Walker, Cane, Wheelchair, Crutches, etc.)? No PATIENT GENDER DATA: Assigned female at . status: : No status:NO. PATIENT RELEVANT IMPLANT DATA REVIEWED: Yes PATIENT PRESENTS WITH AN IMPLANTABLE OR ATTACHED HEATER TENDER: No RADIOLOGY DEPARTMENT: MR; Exam(s) Completed: Spine: Cervical spine. Lavender Administered: No PERIPHERAL IV DATA: Not applicable SIGNED BY: RT Ricardo(Cale) March 10, 2025 8:05 AM documented in this encounterThe [facility]06-11-2025 NoteHNO ID: [id number] Author: PHILLIP BECKER RT(R) Service: ? Author Type: Technologist Type: Progress Notes Filed: 03/10/2025 08:05 Note Text: Radiology Service Progress Note PATIENT NAME: Chidi Musa DATE OF SERVICE: March 10, 2025 TIME: 8:05 AM PATIENT IDENTITY VERIFICATION COMPLETED USING TWO (2) IDENTIFIERS: Name and Date of confirmed by patient verbally. FALL SCREENING: Has the patient had 2 falls in the last year or 1 fall with injury or currently using an Ambulatory Assistive Device (Walker, Cane, Wheelchair, Crutches, etc.)? No PATIENT GENDER DATA: Assigned female at . status: : No status: NO. PATIENT RELEVANT IMPLANT DATA REVIEWED: Yes PATIENT PRESENTS WITH AN IMPLANTABLE OR ATTACHED HEATER TENDER: No RADIOLOGY DEPARTMENT: MR; Exam(s) Completed: Spine: Cervical spine. Lavender Administered: No PERIPHERAL IV DATA: Not applicable SIGNED BY: RT Ricardo(R) March 10, 2025 8:05 [facility]06-09-2025 Telephone encounter Note* Telephone Encounter - Kobi Garsia PA-C - 03/08/2025 12:05 PM EDT The following approved medication requests have been transmitted electronically. Requested Prescriptions Signed Prescriptions Disp Refills pregabalin (LYRICA) 150 mg capsule 90 capsule 1 Sig: Take 1 capsule by mouth three times a day for 30 days. Authorizing Provider: KOBI GARSIA PA-C [facility]06-09-2025 Miscellaneous Notes* Telephone Encounter - Kobi Garsia PA-C - 03/08/2025 12:05 PM EDT The following approved medication requests have been transmitted electronically. Requested Prescriptions Signed Prescriptions Disp Refills pregabalin (LYRICA) 150 mg capsule 90 capsule 1 Sig: Take 1 capsule by mouth three times a day for 30 days. Authorizing Provider: KOBI GARSIA PA-C * Telephone Encounter - Jina Ramirez MA - 03/08/2025 11:27 AM EDT Patient would like script sent to [facility] Patient phones requesting refills as follows: Requested Prescriptions Pending Prescriptions Disp Refills pregabalin (LYRICA) 150 mg capsule 90 capsule 2 Sig: Take 1 capsule by mouth three times a day for 30 days. Last UDS: NO UDS ON FILE [facility] Urine Drug Screen No results found for: [facility] Urine Drug Screen and Benzo Confirm Urine Panel: No results found for: UQCANN, UQBNZL, QUC6NDS, UQAMPH, UQMAMP, UQBUPRE, UQNORBUP, UQMTHD, UQEDDP, UQTRAM, UQDTRM, UQFNTL, UQNFTL, UQCODE, UQMORP, UQDCDN, UQHCOD, UQOXYC, UQHMOR, UQOXYM, UQCREA, UQPH, UQSPGR, UQOXID, UQSPQ None on file Recent Visits Date Type Provider Dept 02/16/25 Office Visit Kobi Garsia PA-C [facility] 09/28/24 Office Visit Newton Shine MD [facility] Showing recent visits within past 540 days with a meds authorizing provider and meeting all other requirements Future Appointments Date Type Provider Dept 05/18/25 Appointment Kobi Garsia PA-C [facility] Showing future appointments within next 150 days with a meds authorizing provider and meeting all other requirements Please review and advise. Jina Ramirez MA documented in this encounterThe [facility]06-09-[facility] Telephone encounter Note * Telephone Encounter - Jina Ramirez MA - 03/08/2025 11:27 AM EDT Patient would like script sent to [facility] Patient phones requesting refills as follows: Requested Prescriptions Pending Prescriptions Disp Refills pregabalin (LYRICA) 150 mg capsule 90 capsule 2 Sig: Take 1 capsule by mouth three times a day for 30 days. Last UDS: NO UDS ON FILE [facility] Urine Drug Screen No results found for: [facility] Urine Drug Screen and Benzo Confirm Urine Panel: No results found for: UQCANN, UQBNZL, EEI6PHR, UQAMPH, UQMAMP, UQBUPRE, UQNORBUP, UQMTHD, UQEDDP, UQTRAM, UQDTRM, UQFNTL, UQNFTL, UQCODE, UQMORP, UQDCDN, UQHCOD, UQOXYC, UQHMOR, UQOXYM, UQCREA, UQPH, UQSPGR, UQOXID, UQSPQ None on file Recent Visits Date Type Provider Dept 02/16/25 Office Visit Kobi Garsia PA-C [facility] 09/28/24 Office Visit Newton Shine MD [facility] Showing recent visits within past 540 days with a meds authorizing provider and meeting all other requirements Future Appointments Date Type Provider Dept 05/18/25 Appointment Kobi Garsia PA-C [facility] Showing future appointments within next 150 days with a meds authorizing provider and meeting all other requirements Please review and advise. Jina Ramirez MA [facility]06-04-2025 NoteHNO ID: [id number] Author: VALENTE HERNANDEZ PT Service: ? Author Type: Physical Therapist Type: Progress Notes Filed: 03/03/2025 10:20 Note Text: Episode Visit Count: 10 Therapist That Will Accept/Oversee The Plan Of Care: Sara Wiseman PT Start of Care Date: 01/13/25 Onset Date: 08/30/24 Plan of Care Certification Date: 02/26/25 Next Certification Due Date: 03/26/25 Patient Identified by Name and Date of : Yes REHABILITATION AND SPORTS THERAPY PHYSICAL THERAPY TREATMENT NOTE ASSESSMENT: Chidi Musa tolerated the session with decreased symptoms and expected muscle soreness. She demonstrated referral pattern recreation with RUT AND R Shani DN. The patient will continue to benefit from ongoing skilled physical therapy to progress toward set goals. PLAN FOR NEXT VISIT: Assess response to DN; ther-ex progressions and DN/MT as needed. SUBJECTIVE: States R shoulder sharp and intense pain this date; states yesterday her dog ran after a cat and she had to grab the leash with both hads to restrain the leash; States she is going to take pain meds when she gets home; states immediate pain and the pain is still lingering; states her neck DrLoi is re-ordering an MRI and CT Scan for her neck to clear the neck from her right shoulder pain. States she is seeing pain mgmt in April for an injection in the shoulder. Pain: Pain Pain Level: 0 (No pain feels like a bulge in lower center midline of c/s.) Pain Location: Neck Pain Level 2: 10 (States radiating pain anterior-lateral to forearm.) Pain Location 2: Shoulder - Right, Upper Arm - Right, Elbow - Right, Forearm - Right Description 2: Sharp, Stabbing, Aching Frequency 2: Continuous Post Treatment Pain Post Treatment Pain Level: Better Post Treatment Pain Location: Shoulder - Right Post Treatment Symptoms: Rates her pain at 5/10 NPRS. Improvements in pain of the R Shoulder and down the arm following DN. OBJECTIVE MEASURES WITH LEVEL OF FUNCTION: Localized Twitch Response appreciated AND observed with DN to respective muscles. Posture / Alignment R Shoulder Alignment: Protracted scapula, Elevated shoulder, Comments Shoulder Alignment Comment: Protracted Scap in supine position when compared to left. Elevated R Shoulder in seated and standing. Shoulder Observations R Shoulder Palpation Tenderness: Comments R Shoulder Palpation Tenderness Comments: Palpation to R UT AND Infraspinatus cause referral pattern recreation; also TTP RC tendon insertion at GT and Bicipital Groove. TREATMENT: Therapeutic Exercise: 1: Seated R UT Stretch w/ R Hand Table Hold: 3x30. 2: Repeated L Side Bend AAROM: 3x10. 3: R ER Stretch: 3x30. 4: *Reviewed and discussed HEP given by primary therapist. 5: Discussed Dry Needling Role in Overall POC; discussed importance of exercises (strength/stretch/mobility) for long-term relief and gains. Discussed that with therapy any needling treatment will always be followed w/ a complimentary exercise targeted at the same desired goal. 6: showed patient travell and camacho referred pain pattern for infraspinatus AND upper trap. As well as supraspinatus. 7: Educated on heat/ice, and water intake following DN. Skilled Intervention: Patient was educated in proper exercise technique and purpose for exercises. Skilled judgment was used in selection of appropriate interventions. Correct performance of therapeutic exercises was facilitated with verbal cuing. Patient education as noted. Manual Therapy: 1: Superficial Dry Needling AND Twisting to Right RC Tendon insertion at Greater Tubercle. (2) .[id number]. 2 Elwood Placed, 2 Elwood Withdrawn. Soft Tissue Mobilization: STM to R Infra and R UT + palpation examination for trigger points throughout R Neck/Shoulder/Periscap Area,: Push to tolerance. Trigger Point Release: TPR to R UT: 2x10, 5-sec holds. Dry Needling: Dry needling to following Trigger points: To R UT AND R Infraspinatus. Needle length: .[id number] . Elwood used 2, needles removed 2. Dry needling technique used: Pistoning, Fanning, and Deep needling. Patient education on purpose, precautions, safety, risks, and other treatment options regarding dry needling. Verbal consent received. (Improved neck tightness relief as well as decreased sxs down the RUE/chief complaint.) Skilled Intervention: Manual skills to improve joint mobility, ROM, and decrease pain. Utilized anatomy knowledge of the clinician, and assessment of patient's response to intervention. Daphne Therapeutic Exercise Treatment Minutes: 24 Manual TherapyTreatment Minutes: 17 Skilled Treatment Time Minutes (timed and untimed codes): 41 Total Session Time (minutes): 41 Session Start Time : 742 Session Stop Time : 823 Valente Hernandez, [facility]06-04-2025 History of Present illness Narrative* Valente Hernandez, PT - 03/03/2025 7:43 AM EDT Episode Visit Count: 10 Therapist That Will Accept/Oversee The Plan Of Care: Sara Wiseman PT Start of Care Date: 01/13/25 Onset Date: 08/30/24 Plan of Care Certification Date: 02/26/25 Next Certification Due Date: 03/26/25 Patient Identified by Name and Date of : Yes REHABILITATION AND SPORTS THERAPY PHYSICAL THERAPY TREATMENT NOTE ASSESSMENT: Chidi Musa tolerated the session with decreased symptoms and expected muscle soreness. She demonstrated referral pattern recreation with RUT & R Infra DN. The patient will continue to benefit from ongoing skilled physical therapy to progress toward set goals. PLAN FOR NEXT VISIT: Assess response to DN; ther-ex progressions and DN/MT as needed. SUBJECTIVE: States R shoulder sharp and intense pain this date; states yesterday her dog ran after a cat and she had to grab the leash with both hads to restrain the leash; States she is going to take pain meds when she gets home; states immediate pain and the pain is still lingering; states her neck DrLoi is re-ordering an MRI and CT Scan for her neck to clear the neck from her right shoulder pain. States she is seeing pain mgmt in April for an injection in the shoulder. Pain: Pain Pain Level: 0 (No pain feels like a bulge in lower center midline of c/s.) Pain Location: Neck Pain Level 2: 10 (States radiating pain anterior-lateral to forearm.) Pain Location 2: Shoulder - Right, Upper Arm - Right, Elbow - Right, Forearm - Right Description 2: Sharp, Stabbing, Aching Frequency 2: Continuous Post Treatment Pain Post Treatment Pain Level: Better Post Treatment Pain Location: Shoulder - Right Post Treatment Symptoms: Rates her pain at 5/10 NPRS. Improvements in pain of the R Shoulder and down the arm following DN. OBJECTIVE MEASURES WITH LEVEL OF FUNCTION: Localized Twitch Response appreciated & observed with DN to respective muscles. Posture / Alignment R Shoulder Alignment: Protracted scapula, Elevated shoulder, Comments Shoulder Alignment Comment: Protracted Scap in supine position when compared to left. Elevated R Shoulder in seated and standing. Shoulder Observations R Shoulder Palpation Tenderness: Comments R Shoulder Palpation Tenderness Comments: Palpation to R UT & Infraspinatus cause referral pattern recreation; also TTP RC tendon insertion at GT and Bicipital Groove. TREATMENT: Therapeutic Exercise: 1: Seated R UT Stretch w/ R Hand Table Hold: 3x30. 2: Repeated L Side Bend AAROM: 3x10. 3: R ER Stretch: 3x30. 4: *Reviewed and discussed HEP given by primary therapist. 5: Discussed Dry Needling Role in Overall POC; discussed importance of exercises (strength/stretch/mobility) for long-term relief and gains. Discussed that with therapy any needling treatment will always be followed w/ a complimentary exercise targeted at the same desired goal. 6: showed patient travell and camacho referred pain pattern for infraspinatus & upper trap. As well as supraspinatus. 7: Educated on heat/ice, and water intake following DN. Skilled Intervention: Patient was educated in proper exercise technique and purpose for exercises. Skilled judgment was used in selection of appropriate interventions. Correct performance of therapeutic exercises was facilitated with verbal cuing. Patient education as noted. Manual Therapy: 1: Superficial Dry Needling & Twisting to Right RC Tendon insertion at Greater Tubercle. (2) .[id number]. 2 Elwood Placed, 2 Elwood Withdrawn. Soft Tissue Mobilization: STM to R Infra and R UT + palpation examination for trigger points throughout R Neck/Shoulder/Periscap Area,: Push to tolerance. Trigger Point Release: TPR to R UT: 2x10, 5-sec holds. Dry Needling: Dry needling to following Trigger points: To R UT & R Infraspinatus. Needle length: .[id number] . Elwood used 2, needles removed 2. Dry needling technique used: Pistoning, Fanning, and Deep needling. Patient education on purpose, precautions, safety, risks, and other treatment options regarding dry needling. Verbal consent received. (Improved neck tightness relief as well as decreased sxs down the RUE/chief complaint.) Skilled Intervention: Manual skills to improve joint mobility, ROM, and decrease pain. Utilized anatomy knowledge of the clinician, and assessment of patient's response to intervention. Billing Therapeutic Exercise Treatment Minutes: 24 Manual TherapyTreatment Minutes: 17 Skilled Treatment Time Minutes (timed and untimed codes): 41 Total Session Time (minutes): 41 Session Start Time : 742 Session Stop Time : 823 Valente Hernandez PT documented in this encounterThe [facility]05-30-[facility]25 NoteHNO ID: [id number] Author: SARA WISEMAN PT Service: ? Author Type: Physical Therapist Type: Progress Notes Filed: 02/26/2025 17:21 Note Text: Episode Visit Count: 9 Therapist That Will Accept/Oversee The Plan Of Care: Sara Wiseman PT Start of Care Date: 01/13/25 Onset Date: 08/30/24 Plan of Care Certification Date: 02/26/25 Next Certification Due Date: 03/26/25 Patient Identified by Name and Date of : Yes REHABILITATION AND SPORTS THERAPY PHYSICAL THERAPY PROGRESS REPORT PLAN OF CARE UPDATE: Assessment: Chidi Musa demonstrates moderate improvement in cervical spine and no improvement in R shoulder and UE. The patient has progressed toward goals. Patient continues to present with impairments in ADL's, independence in exercise, overall function, range of motion, strength, symptom management, and tissue tenderness that interfere with reaching overhead, reaching behind back, dressing, lifting, sleeping, grooming . Current prognosis is Good due to: current objective clinical presentation, positive past response to therapy, within-session changes. The patient will benefit from continued skilled therapy services to meet the updated goals for this plan of care as noted below. Updated: 02/04/25 and 02/26/25 Goals for Episode of Care: established 01/13/25 Patient reported outcome of physical function will increase T-score by a minimum 5 points. - MET, will monitor (improved by 7 points) Boles in home exercise program. - MET, will continue and progress to tolerance. Patient will decrease R shoulder pain rating by 2 points to meet minimal clinical important difference for numeric pain rating scale. - Not MET, will continue Patient will increase active ROM of R shoulder to WFL, symmetrical and pain-free to allow pt to to improve performance of ADLs. - Partially MET, will continue Perform reaching, lifting, dressing and grooming with decreased report of symptoms/pain in 6 weeks. - Not MET, will continue Patient will decrease neck pain rating by 2 points to meet minimal clinical important difference for numeric pain rating scale.- MET, will monitor Restore pain free cervical ROM to WFL to allow for improved tolerance with design tech. - Partially MET, will continue Sleep throughout the night without pain/symptoms. - Not MET, will continue Patient will increase strength of postural muscles to WFL to allow for improve ability to maintain proper posture, improve mechanics, and decrease pain. - Partially MET, will continue Patient Goals: decrease pain and be able to plant lira this spring. Walk dog - Not MET, will continue Time Frame for Goals and Treatment : 03/26/25 Patient Goals: decrease pain and be able to plant lira this spring. Walk dog Planned Interventions, Frequency, and Duration: 2x/week, 4 weeks Total Number of Visits Planned: 8 Patient to be seen for Therapeutic exercise (80147), Neuromuscular re-education (44173), Manual therapy (70313), Therapeutic activities (64869), Self-[place] [facility] [place] management (10567), Patient/Family/Caregiver Education, Body Mechanics Training PLAN FOR NEXT VISIT: Continue with gentle therex for R UE and cervical spine. Continue manual therapy and incorporate dry needling 1x week. SUBJECTIVE: Pt reports that overall her neck is better since starting therapy 02/04/25. She reports improved ROM in cervical spine. She reports improved tolerance with driving. Pt reports that she had a follow up with referring provider yesterday. She reports being told by referring provider that her cervical spine is healing well and he has cleared her. She reports that she has no restrictions or limitations from Dr. Sheehan. She also reports being cleared by Dr. Sheehan to have R shoulder surgery if needed. She reports slight improvements with reaching. She denies any improvements with dressing, grooming and lifting with R UE. She denies any improvements with sleeping or design tech. She reports that she has not been able to do any gardening yet. Pt reports that R UE symptoms can radiate all the way to R fingers at times. Pt has declined manual therapy today. Patient Goals: decrease pain and be able to plant lira this spring. Walk dog Functional Limitations: reaching overhead, reaching behind back, dressing, lifting, sleeping, grooming Prior Level of Function: Independent without limitations Intake Information: Prescription present Previous Treatment: Surgery , Physical Therapy Pain: Pain Pain Level: 0 Pain Location: Neck Description: (pt denies any neck pain to start today) Frequency: Intermittent Pain Level 2: 10 Pain Location 2: Shoulder - Right, Upper Arm - Right, Elbow - Right, Forearm - Right Description 2: Sharp, Stabbing, Aching Frequency 2: Continuous Post Treatment Pain Post Treatment Pain Level: Better Post Treatment Pain Location: Neck Post Treatment Symptoms: After session pt reported that (more content not included)...[facility]05-30-2025 History of Present illness Narrative* Sara Wiseman, PT - 02/26/2025 5:18 PM EDT Images from the original note were not included. Episode Visit Count: 9 Therapist That Will Accept/Oversee The Plan Of Care: Sara Wiseman PT Start of Care Date: 01/13/25 Onset Date: 08/30/24 Plan of Care Certification Date: 02/26/25 Next Certification Due Date: 03/26/25 Patient Identified by Name and Date of : Yes REHABILITATION AND SPORTS THERAPY PHYSICAL THERAPY PROGRESS REPORT PLAN OF CARE UPDATE: Assessment: Chidi Musa demonstrates moderate improvement in cervical spine and no improvement in R shoulder and UE. The patient has progressed toward goals. Patient continues to present with impairments inADL's, independence in exercise, overall function, range of motion, strength, symptom management, and tissue tenderness that interfere with reaching overhead, reaching behind back, dressing, lifting,sleeping, grooming . Current prognosis is Good due to: current objective clinical presentation, positive past response to therapy, within- session changes. The patient will benefit from continued skilled therapy services to meet the updated goals for this plan of care as noted below. Updated: 02/04/25 and 02/26/25 Goals for Episode of Care: established 01/13/25 Patient reported outcome of physical function will increase T-score by a minimum 5 points. - MET, will monitor (improved by 7 points) Boles in home exercise program. - MET, will continue and progress to tolerance. Patient will decrease R shoulder pain rating by 2 points to meet minimal clinical important difference for numeric pain rating scale. - Not MET, will continue Patient will increase active ROM of R shoulder to WFL, symmetrical and pain-free to allow pt to to improve performance of ADLs. - Partially MET, will continue Perform reaching, lifting, dressing and grooming with decreased report of symptoms/pain in 6 weeks. - Not MET, will continue Patient will decrease neck pain rating by 2 points to meet minimal clinical important difference for numeric pain rating scale.- MET, will monitor Restore pain free cervical ROM to WFL to allow for improved tolerance with design tech. - Partially MET, will continue Sleep throughout the night without pain/symptoms. - Not MET, will continue Patient will increase strength of postural muscles to WFL to allow for improve ability to maintain proper posture, improve mechanics, and decrease pain. - Partially MET, will continue Patient Goals: decrease pain and be able to plant lira this spring. Walk dog - Not MET, will continue Time Frame for Goals and Treatment : 03/26/25 Patient Goals: decrease pain and be able to plant lira this spring. Walk dog Planned Interventions, Frequency, and Duration: 2x/week, 4 weeks Total Number of Visits Planned: 8 Patient to be seen for Therapeutic exercise (04151), Neuromuscular re-education (27787), Manual therapy (88516), Therapeutic activities (47736), Self-[place] [facility] [place] management (77965), Patient/Family/Caregiver Education, Body Mechanics Training PLAN FOR NEXT VISIT: Continue with gentle therex for R UE and cervical spine. Continue manual therapy and incorporate dry needling 1x week. SUBJECTIVE: Pt reports that overall her neck is better since starting therapy 02/04/25. She reports improved ROM in cervical spine. She reports improved tolerance with driving. Pt reports that she had a follow up with referring provider yesterday. She reports being told by referring provider that her cervical spine is healing well and he has cleared her. She reports that she has no restrictions or limitations from Dr. Sheehan. She also reports being cleared by Dr. Sheehan to have R shoulder surgery if needed. She reports slight improvements with reaching. She denies any improvements with dressing, grooming and lifting with R UE. She denies any improvements with sleeping or design tech. She re ports that she has not been able to do any gardening yet. Pt reports that R UE symptoms can radiateall the way to R fingers at times. Pt has declined manual therapy today. Patient Goals: decrease pain and be able to plant lira this spring. Walk dog Functional Limitations: reaching overhead, reaching behind back, dressing, lifting, sleeping, grooming Prior Level of Function: Independent without limitations Intake Information: Prescription present Previous Treatment: Surgery , Physical Therapy Pain: Pain Pain Level: 0 Pain Location: Neck Description: (pt denies any neck pain to start today) Frequency: Intermittent Pain Level 2: 10 Pain Location 2: Shoulder - Right, Upper Arm - Right, Elbow - Right, Forearm - Right Description 2: Sharp, Stabbing, Aching Frequency 2: Continuous Post Treatment Pain Post Treatment Pain Level: Better Post Treatment Pain Location: Neck Post Treatment Symptoms: After session pt reported that her neck loosened up. Post Treatment Pain Score 2: No Change Post Treatment Pain Location 2: Shoulder - Right PROMIS Scales 02/24/2025 02/11/2025 02/02/2025 Higher is Better Phys Func - T Score 31 (moderate dysfunction) 28 (severe dysfunction) Phys Func - Percentile 3 1 Self-Eff Symptom - T Score 37 (Low) Self-Eff Symptom - Percentile 10 Proxy-reported 01/12/2025 Lower is Better Pain Interference - T Score 81 (severe) Pain Interference - Percentile 0 T-scores: mean of general population = 50. 5 points is clinically meaningfully difference Percentiles provide an indication of how the patient's score ranks in relation to the general population. Higher percentile rankings indicate better function/quality of life. 50th percentile is the average of the general population and indicates half of respondents had a worse score. OBJECTIVE MEASURES WITH LEVEL OF FUNCTION: Cervical Spine ROM Cervical Flexion AROM (degrees) : 52 Degrees Cervical Extension AROM (degrees) : 60 Degrees Cervical Side-Bend Right AROM (degrees): 42 Degrees Cervical Side-Bend Left AROM (degrees) : 40 Degrees Cervical Rotation Right AROM (degrees) : 78 Degrees Cervical Rotation Left AROM (degrees) : 78 Degrees UE AROM R UE AROM: seated R Shoulder Extension: 30 Degrees R Shoulder Flex: 48 Degrees R Shoulder ABduction: 38 Degrees R Shoulder Internal Rotation (Functional): 49cm less than left reaching behind back R Shoulder External Rotation (Functional): unable to reach behind head UE PROM R UE PROM: seated R Shoulder Flex: 101 Degrees TREATMENT: Therapeutic Exercise: 1: AROM cervical rotation 2x10 B 2: AROM cervical flexion and extension 2x10 3: AROM cervical side bends 2x10 B 4: seated scapular retraction 3x10 in front of mirror with emphasis on avoiding scapular elevation 5: Cervical SB isometrics x10 B with 5 second hold 6: Cervical flexion isometric x10 with 5 second holds 7: Cervical extension isometric x10 with 5 second holds 8: seated rope and kristi AAROM for R shoulder flexion 2x10 9: seated rope and kristi AAROM for R shoulder abduction 2x10 10: R UE body blade arm at side blade horizontal 3x30 seconds 11: Re-assessment results were reviewed with patient and used as rationale for plan of care recommendations. Skilled Intervention: Patient was educated in proper exercise technique and purpose for exercises. Skilled judgment was used in selection of appropriate interventions. Correct performance of therapeutic exercises was facilitated with verbal, visual, and tactile cuing. Patient education as noted. Billing Therapeutic Exercise Treatment Minutes: 46 Skilled Treatment Time Minutes (timed and untimed codes): 46 Total Session Time (minutes): 46 Session Start Time : 1030 Session Stop Time : 1116 Sara Wiseman PT documented in [facility]The [facility] NoteHNO ID: [id number] Author: MAYANK SHEEHAN MD Service: ? Author Type: Physician Type: Progress Notes Filed: 02/23/2025 09:46 Note Text: Mayank Sheehan MD [facility] - Orthopaedic Spine Surgeon [address], [address], [place] [address] [place] [address], [address], [place] [address] Phone: [phone] FAX: [phone] Spine Surgery Post-op Follow-up Service Date: 02/23/2025 Surgery Date: 11/30/2024 Surgery(ies): C4-6 PSF, C5 laminectomy Pre-operative Symptoms: Cervical spine pain with radiation to bilateral upper extremities, bilateral upper extremity weakness, gait imbalance, dexterity issues HPI: Chidi Musa is seen for 3-month post operative follow up. Pain in cervical spine is can be improved significantly. She has severe pain in the right shoulder. This is her main complaint today. Pain only radiates down the arm to the level of the elbow with range of motion of the right shoulder. She is unable to sleep on the right side. Any range of motion of the right shoulder causes her severe pain. She did have an injection completed which she feels worsened her pain. Also states the range of motion of the shoulder has been worsening. She did receive a second opinion regarding the right shoulder from [facility] who recommended proceeding with surgery after she was cleared from spinal surgery standpoint. ALLERGIES No Known Allergies Current Outpatient Medications Medication Sig Dispense Refill amLODIPine (NORVASC) 5 mg tablet Take 1 tablet by mouth once daily. methylPREDNISolone (MEDROL DOSE-PACK) 4 mg Dose-Pack A directed ergocalciferol 50,000 unit capsule (VITAMIN D2, DRISDOL) Take 1 capsule by mouth one time a week. losartan (COZAAR) 25 mg tablet Take 25 mg by mouth once daily. pregabalin (LYRICA) 150 mg capsule Take 1 capsule by mouth three times a day for 30 days. 90 capsule 2 tiZANidine (ZANAFLEX) 4 mg tablet Take 1 tablet by mouth every 6 hours as needed. 30 tablet 1 acetaminophen (TYLENOL) 500 mg tablet Take 2 tablets by mouth every 6 hours. 720 tablet 0 JANUMET 50-1,000 mg per tablet Take 1 tablet by mouth two times a day with meals. ARIPiprazole (ABILIFY) 5 mg tablet Take 5 mg by mouth once daily. JARDIANCE 10 mg tablet Take 10 mg by mouth once daily. fluconazole (DIFLUCAN) 100 mg tablet Take 100 mg by mouth as needed (yeast infections). fluticasone (FLONASE) 50 mcg/actuation nasal spray Use 2 Sprays in each nostril once daily. hydrOXYzine HCl (ATARAX) 25 mg tablet Take 25 mg by mouth once daily. lidocaine (LIDODERM) 5 % Apply 1 Patch as directed every 12 hours. ARMS aspirin 81 mg cap Take 81 mg by mouth once daily. Dr. Quintana manages. No instructions given albuterol HFA (PROVENTIL HFA, VENTOLIN HFA) 90 mcg/actuation inhaler Inhale 1-2 Puffs as instructed every 6 hours as needed for wheezing/shortness of breath. atorvastatin (LIPITOR) 40 mg tablet Take 40 mg by mouth once daily. clopidogrel (PLAVIX) 75 mg tablet Take 75 mg by mouth once daily. Dr. Quintana manages fluticasone-salmeterol (ADVAIR, WIXELA) 250-50 mcg/dose inhaler Inhale 1 Inhalation as instructed two times a day. metoprolol succinate ER (TOPROL XL) 25 mg 24 hr tablet Take 25 mg by mouth once daily. (Patient taking differently: Take 50 mg by mouth once daily.) pantoprazole DR (PROTONIX) 40 mg tablet Take 40 mg by mouth every afternoon. Qnfit-5-VVJ-EPA-Fish Oil (FISH OIL) 1,000 (120-180) mg cap Take 2 g by mouth once daily. Last dose 11/09 due to surgery cariprazine (VRAYLAR) 1.5 mg capsule Take 1.5 mg by mouth once daily. No current facility-administered medications for this visit. Physical Examination: Vital Signs: Ht 160 cm (5' 3) Wt 73.9 kg (163 lb) BMI 28.87 kg/m? General Appearance: Well nourished, well developed, and no apparent distress. Incision: Clean, dry, and intact. No active drainage. No erythema. Cervical collar in place in appropriate position. Sensory: Sensation intact to light touch in C5-T1 and L1-S1 dermatomes. Motor: Upper Extremities Right Left Deltoid (C5) 3* 5 Biceps (C6) 5 5 Triceps (C7) 5 5 First Assistant (C8) 5 5 Interossei (T1) 5 5 Lower Extremities Right Left Psoas (L2) 5 5 Quadriceps (L3) 5 5 Dorsiflexion (L4) 5 5 EHL (L5) 5 5 Plantarflexion (S1) 5 5 *Severely limited secondary to pain. Gait: Smooth reciprocal gait. Long Tract Signs: No clonus. Ruben's present bilaterally. Reflexes: Symmetric, brisk bilateral patellar and Achilles reflexes. Right Shoulder: Severe pain with flexion, abduction, internal and external rotation of the right shoulder. Limited range of motion to 30 degrees flexion, 30 degrees abduction. Pain with short arc range of motion. Imaging AP and lateral x-rays cervical spine obtained and independently interpreted. Image demonstrates C4-6 posterior spinal fusion instrumentation in appropriate position. Stable as compared to prior imaging. Asse (more content not included)...[facility]05-27-2025 History of Present illness Narrative* Mayank Sheehan MD - 02/23/2025 9:43 AM EDT Images from the original note were not included. Mayank Sheehan MD [facility] - Orthopaedic Spine Surgeon [address] [facility], [address], [place] [address] Phone: [phone] ([phone] FAX: [phone] Spine Surgery Post-op Follow-up Service Date: 02/23/2025 Surgery Date: 11/30/2024 Surgery(ies): C4-6 PSF, C5 laminectomy Pre-operative Symptoms: Cervical spine pain with radiation to bilateral upper extremities, bilateral upper extremity weakness, gait imbalance, dexterity issues HPI: Chidi Musa is seen for 3-month post operative follow up. Pain in cervical spine is can be improved significantly. She has severe pain in the right shoulder. This is her main complaint today. Pain only radiates down the arm to the level of the elbow with range of motion of the right shoulder. She is unable to sleep on the right side. Any range of motion of the right shoulder causes her severe pain. She did have an injection completed which she feels worsened her pain. Also states the range of motion of the shoulder has been worsening. She did receive a second opinion regarding the right shoulder from [facility] who recommended proceeding with surgery after she was clearedfrom spinal surgery standpoint. ALLERGIES No Known Allergies Current Outpatient Medications Medication Sig Dispense Refill amLODIPine (NORVASC) 5 mg tablet Take 1 tablet by mouth once daily. methylPREDNISolone (MEDROL DOSE-PACK) 4 mg Dose-Pack A directed ergocalciferol 50,000 unit capsule (VITAMIN D2, DRISDOL) Take 1 capsule by mouth one time a week. losartan (COZAAR) 25 mg tablet Take 25 mg by mouth once daily. pregabalin (LYRICA) 150 mg capsule Take 1 capsule by mouth three times a day for 30 days. 90 capsule 2 tiZANidine (ZANAFLEX) 4 mg tablet Take 1 tablet by mouth every 6 hours as needed. 30 tablet 1 acetaminophen (TYLENOL) 500 mg tablet Take 2 tablets by mouth every 6 hours. 720 tablet 0 JANUMET 50-1,000 mg per tablet Take 1 tablet by mouth two times a day with meals. ARIPiprazole (ABILIFY) 5 mg tablet Take 5 mg by mouth once daily. JARDIANCE 10 mg tablet Take 10 mg by mouth once daily. fluconazole (DIFLUCAN) 100 mg tablet Take 100 mg by mouth as needed (yeast infections). fluticasone (FLONASE) 50 mcg/actuation nasal spray Use 2 Sprays in each nostril once daily. hydrOXYzine HCl (ATARAX) 25 mg tablet Take 25 mg by mouth once daily. lidocaine (LIDODERM) 5 % Apply 1 Patch as directed every 12 hours. ARMS aspirin 81 mg cap Take 81 mg by mouth once daily. Dr. Quintana manages. No instructions given albuterol HFA (PROVENTIL HFA, VENTOLIN HFA) 90 mcg/actuation inhaler Inhale 1-2 Puffs as instructedevery 6 hours as needed for wheezing/shortness of breath. atorvastatin (LIPITOR) 40 mg tablet Take 40 mg by mouth once daily. clopidogrel (PLAVIX) 75 mg tablet Take 75 mg by mouth once daily. Dr. Quintana manages fluticasone-salmeterol (ADVAIR, WIXELA) 250-50 mcg/dose inhaler Inhale 1 Inhalation as instructed two times a day. metoprolol succinate ER (TOPROL XL) 25 mg 24 hr tablet Take 25 mg by mouth once daily. (Patient taking differently: Take 50 mg by mouth once daily.) pantoprazole DR (PROTONIX) 40 mg tablet Take 40 mg by mouth every afternoon. Reulw-0-AWO-EPA-Fish Oil (FISH OIL) 1,000 (120-180) mg cap Take 2 g by mouth once daily. Last dose 11/09 due to surgery cariprazine (VRAYLAR) 1.5 mg capsule Take 1.5 mg by mouth once daily. No current facility-administered medications for this visit. Physical Examination: Vital Signs: Ht 160 cm (5' 3) Wt 73.9 kg (163 lb) BMI 28.87 kg/m General Appearance: Well nourished, well developed, and no apparent distress. Incision: Clean, dry, and intact. No active drainage. No erythema. Cervical collar in place in appropriate position. Sensory: Sensation intact to light touch in C5-T1 and L1-S1 dermatomes. Motor: Upper Extremities Right Left Deltoid (C5) 3* 5 Biceps (C6) 5 5 Triceps (C7) 5 5 First Assistant (C8) 5 5 Interossei (T1) 5 5 Lower Extremities Right Left Psoas (L2) 5 5 Quadriceps (L3) 5 5 Dorsiflexion (L4) 5 5 EHL (L5) 5 5 Plantarflexion (S1) 5 5 *Severely limited secondary to pain. Gait: Smooth reciprocal gait. Long Tract Signs: No clonus. Ruben's present bilaterally. Reflexes: Symmetric, brisk bilateral patellar and Achilles reflexes. Right Shoulder: Severe pain with flexion, abduction, internal and external rotation of the right shoulder. Limited range of motion to 30 degrees flexion, 30 degrees abduction. Pain with short arc range of motion. Imaging AP and lateral x-rays cervical spine obtained and independently interpreted. Image demonstrates C4-6 posterior spinal fusion instrumentation in appropriate position. Stable as compared to prior imaging. Assessment 59 year old female who presents 3 months status-post C4-6 PSF, C5 laminectomy: recovering well fromcervical spine surgery with severe right shoulder pain secondary to adhesive capsulitis, labral tear, and rotator cuff tear. Plan May resume to all activities as tolerated. Continue physical therapy. CT/MRI of the cervical spine ordered as additional precaution to rule out cervical spine as cause of symptoms. May proceed with right shoulder surgery with provider first choice at earliest convenience. Follow-up virtually for review of CT and MRI and in office in 9 months for 1 year postop. Advised to call the office if symptoms worsen or new symptoms develop. Patient expressed understanding and is in agreement with plan. Mayank Sheehan MD Orthopaedic Spine Surgery This note was generated all or in part using [employer] voice recognition software and [employer] dictation software. Please excuse any minor errors in spelling, grammar, or punctuation. * Hina Torres MA - 02/23/2025 9:05 AM EDT 59 y/o female presents to office for a routine post op appointment. Pain is radiating into the right shoulder. Xrays obtained today. documented in this [facility]The [facility] NoteHNO ID: [id number] Author: HINA TORRES MA Service: ? Author Type: Public Transportation Inspector Type: Progress Notes Filed: 02/23/2025 09:46 Note Text: 59 y/o female presents to office for a routine post op appointment. Pain is radiating into the right shoulder. Xrays obtained today.[facility]05-22-2025 NoteHNO ID: [id number] Author: SARA WISEMAN PT Service: ? Author Type: Physical Therapist Type: Progress Notes Filed: 02/18/2025 15:44 Note Text: Episode Visit Count: 8 Therapist That Will Accept/Oversee The Plan Of Care: Sara Wiseman PT Start of Care Date: 01/13/25 Onset Date: 08/30/24 Plan of Care Certification Date: 02/04/25 Next Certification Due Date: 03/18/25 Patient Identified by Name and Date of : Yes REHABILITATION AND SPORTS THERAPY PHYSICAL THERAPY TREATMENT NOTE ASSESSMENT: Chidi Musa tolerated the session with fatigue, expected muscle soreness, and no issues. She demonstrated improvements in ROM, pain and exercise tolerance. The patient will continue to benefit from ongoing skilled physical therapy to progress toward set goals. PLAN FOR NEXT VISIT: Continue with gentle therex for R UE and cervical spine. Continue manual therapy and incorporate dry needling 1x week. SUBJECTIVE: Pt reports that overall her neck is getting progressively better with less and less pain. Unfortunately, she reports continued pain and problems with R shoulder and radicular R UE symptoms. She reports that she is scheduled for a nerve block in April 2025 with pain management. She also reports having dry needling ordered for her trigger points in cervical spine musculature. She reports that the radiating R UE symptoms are not nearly as bad. She reports being scheduled to see referring provider/surgeon for her cervical spine fusion 02/23/25. She reports compliance with HEP 2x day. She feels that the manual therapy in PT helps. Pain: Pain Pain Level: 0 Pain Location: Neck Description: (no neck pain to start today.) Frequency: Intermittent Pain Level 2: 10 Pain Location 2: Shoulder - Right, Upper Arm - Right, Elbow - Right, Forearm - Right Description 2: Sharp, Stabbing Frequency 2: Continuous Post Treatment Pain Post Treatment Pain Level: Better Post Treatment Pain Location: Neck Post Treatment Pain Score 2: No Change Post Treatment Pain Location 2: Shoulder - Right OBJECTIVE MEASURES WITH LEVEL OF FUNCTION: TREATMENT: Therapeutic Exercise: 1: AROM cervical rotation 2x10 B 2: AROM cervical flexion and extension 2x10 3: AROM cervical side bends 2x10 B 4: seated scapular retraction 2x10 5: Cervical SB isometrics 2x10 B with 5 second hold 6: Cervical flexion isometric 2x10 with 5 second holds 7: Cervical extension isometric 2x10 with 5 second holds 8: seated rope and kristi AAROM for R shoulder flexion 2x10 9: seated rope and kristi AAROM for R shoulder abduction 2x10 10: R UE body blade arm at side blade horizontal 3x30 seconds Skilled Intervention: Patient was educated in proper exercise technique and purpose for exercises. Skilled judgment was used in selection of appropriate interventions. Correct performance of therapeutic exercises was facilitated with verbal, visual, and tactile cuing. Patient education as noted. Manual Therapy: 1: Gentle STM and trigger point release over lower cervical muscles with focus on R levator scapulae and UT x10 minutes with pressure to pt tolerance. Skilled Intervention: Manual skills to improve joint mobility, ROM, and decrease pain. Utilized anatomy knowledge of the clinician, and assessment of patient's response to intervention. Billing Therapeutic Exercise Treatment Minutes: 37 Manual TherapyTreatment Minutes: 10 Skilled Treatment Time Minutes (timed and untimed codes): 47 Total Session Time (minutes): 47 Session Start Time : 1003 Session Stop Time : 1050 Sara Wiseman [facility]05-22-2025 NoteHNO ID: [id number] Author: SYLVIE KIRBY Tech Service: ? Author Type: Technologist Type: Progress Notes Filed: 02/18/2025 11:26 Note Text: Radiology Service Progress Note PATIENT NAME: Chidi Musa DATE OF SERVICE: February 18, 2025 TIME: 11:16 AM PATIENT IDENTITY VERIFICATION COMPLETED USING TWO (2) IDENTIFIERS: Name and Date of confirmed by patient verbally. FALL SCREENING: Has the patient had 2 falls in the last year or 1 fall with injury or currently using an Ambulatory Assistive Device (Walker, Cane, Wheelchair, Crutches, etc.)? No PATIENT GENDER DATA: Assigned female at . status: : No status: NO. PATIENT RELEVANT IMPLANT DATA REVIEWED: Not Applicable PATIENT PRESENTS WITH AN IMPLANTABLE OR ATTACHED HEATER TENDER: No RADIOLOGY DEPARTMENT: General X-ray: Exam(s) Completed: Spine X-Ray(s): Cervical AP / LAT / FLEX-EXT PERIPHERAL IV DATA: Not applicable SIGNED BY: Ellen Dominguez February 18, 2025 11:16 [facility]05-20-2025 Instructions* Patient Instructions* Kobi Garsia PA-C - 02/16/2025 8:56 AM EDT Continue follow up with Dr Sheehan as needed for neck pain Continue with PT- suggest dry needling for myofascial pain. She will discuss this option with her therapist. If a new order is needed, she will contact me Continue follow up with ortho for shoulder pain No improvement from GH CSI. Trial Right suprascapular nerve blk . If effective but short in duration, will consider RFA Refill Lyrica 105 mg three times a day Refill Tizanidine, recommend using primarily at night Pt is prescribed Tramadol by her PCP Follow up in 3 months [facility] NoteHNO ID: [id number] Author: KOBI GARSIA PA-C Service: ? Author Type: Physician Manufacturing Helper Type: Progress Notes Filed: 02/16/2025 09:07 Note Text: PATIENT: Chidi Musa : 1965 DATE OF SERVICE: 02/16/2025 REFERRING PRACTITIONER: Donny PRIMARY CARE PROVIDER: Josephine Walter CNP, SINK MAKER CHIEF COMPLAINT: Patient presents with: Pain: Shoulder - right Neck HISTORY OF PRESENT ILLNESS: Chidi Musa is a 59 year old year old female who presents to the clinic today with chief complaint(s) as above. Following up for: chronic pain, right shoulder pain, neck pain, low back pain Response to treatment recommendations: Lyrica and Tizanidine help dull the pain. Pt continues with PT which is helping the neck pain but not right shoulder pain Current primary concern/description: right shoulder pain/aching, burning, dull Pain Level: 10 /10 Better with: medication, reposition, rest Worse with: at night, movement of right shoulder Numbness/Tingling: [] Yes [x] No Bladder/bowel fxn change: [] Yes [x] No --- Review of Systems Constitutional: Negative. HENT: Negative. Eyes: Negative. Cardiovascular: Negative. Respiratory: Negative. Endocrine: Negative. Skin: Negative. Musculoskeletal: Positive for back pain, joint pain, muscle weakness, myalgias, neck pain and stiffness. Gastrointestinal: Negative. Genitourinary: Negative. Neurological: Negative. Psychiatric/Behavioral: Positive for depression. The patient is nervous/anxious. === HISTORY: ALLERGIES No Known Allergies PAST MEDICAL HISTORY Diagnosis Date Back pain [facility] Dr. Jorge follows Coronary artery disease 1 stent placed 09/08/19 Dr. Maldonado follows, started managaing care in 12/2023 Depression PCP manages Diabetes ([facility]) PCP manages Generalized anxiety disorder PCP manages GERD (gastroesophageal reflux disease) controlled with meds PCP follows Heart attack ([facility]) 05/2020 CABG X3-[place] Hypertension PCP manages/ controlled on meds Mixed hyperlipidemia controlled with meds PCP follows Neck pain Dr. Sheehan follows- reported falling off pickup truck bed 08/30/24 and has had problems since. muscle spasms down both arms/shoulders AVE (obstructive sleep apnea) sleep study completed 2023 in [facility]. due to anxiety/depression noncompliant with cpap. unable to tolerate mask Other emphysema (HCC) Maria T Seay N.P. pulmonology [place]. 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 [address] Quintana follows-aspirin/plavix PAST SURGICAL HISTORY Procedure Laterality Date ADDTL NECK SPINE FUSION 06/30/2007 [place] ARTHROTOMY W/MENISCUS REPAIR KNEE Left 06/18/2007 CABG (3) VEIN GRAFTS AND ARTERIAL GRAFT(S) 05/2020 [place] Rendon PAST SURGICAL HISTORY OF Left 09/02/2024 stent placement Iliac artery PAST SURGICAL HISTORY OF 09/08/2019 1 stent placed in heart REMOVAL GALLBLADDER 04/11/1986 [facility] TOTAL ABDOM HYSTERECTOMY 08/30/2005 at [facility] No family history on file. Social History Tobacco Use Smoking status: Former Current packs/day: 1.00 Average packs/day: 1 pack/day for 38.0 years (38.0 ttl pk-yrs) Types: Cigarettes Smokeless tobacco: Never Vaping Use Vaping status: Former Substance Use Topics Alcohol use: Yes Drug use: Not Currently Types: Marijuana Comment: occasionally Current Outpatient Medications Medication Sig amLODIPine (NORVASC) 5 mg tablet Take 1 tablet by mouth once daily. methylPREDNISolone (MEDROL DOSE-PACK) 4 mg Dose-Pack A directed ergocalciferol 50,000 unit capsule (VITAMIN D2, DRISDOL) Take 1 capsule by mouth one time a week. losartan (COZAAR) 25 mg tablet Take 25 mg by mouth once daily. tiZANidine (ZANAFLEX) 4 mg tablet TAKE 1 TABLET BY MOUTH EVERY 6 HOURS NEEDED acetaminophen (TYLENOL) 500 mg tablet Take 2 tablets by mouth every 6 hours. JANUMET 50-1,000 mg per tablet Take 1 tablet by mouth two times a day with meals. ARIPiprazole (ABILIFY) 5 mg tablet Take 5 mg by mouth once daily. JARDIANCE 10 mg tablet Take 10 mg by mouth once daily. fluconazole (DIFLUCAN) 100 mg tablet Take 100 mg by mouth as needed (yeast infections). fluticasone (FLONASE) 50 mcg/actuation nasal spray Use 2 Sprays in each nostril once daily. hydrOXYzine HCl (ATARAX) 25 mg tablet Take 25 mg by mouth once daily. lidocaine (LIDODERM) 5 % Apply 1 Patch as directed every 12 hours. ARMS methocarbamol (ROBAXIN) 500 mg tablet Take 1,000 mg by mouth four times a day as needed (PAIN). aspirin 81 mg cap Take 81 mg by mouth once daily. Dr. Quintana manages. No instructions given albuterol HFA (PROVENTIL HFA, VENTOLIN HFA) 90 mcg/actuation inhaler Inhale 1-2 Puffs as instructed every 6 hours as needed for wheezing/shortness of breath. atorvastatin (LIPITOR) 40 mg tablet Take 40 mg by (more content not included)... [facility]05-20-2025 History of Present illness Narrative* Kobi Garsia PA-C - 02/16/2025 8:28 AM EDT PATIENT: Chidi Musa : 1965 DATE OF SERVICE: 02/16/2025 REFERRING PRACTITIONER: Donny PRIMARY CARE PROVIDER: Josephine Walter CNP, SINK MAKER CHIEF COMPLAINT: Patient presents with: Pain: Shoulder - right Neck HISTORY OF PRESENT ILLNESS: Chidi Musa is a 59 year old year old female who presents to the clinic today with chief complaint(s) as above. Following up for: chronic pain, right shoulder pain, neck pain, low back pain Response to treatment recommendations: Lyrica and Tizanidine help dull the pain. Pt continues with PT which is helping the neck pain but not right shoulder pain Current primary concern/description: right shoulder pain/aching, burning, dull Pain Level: 10 /10 Better with: medication, reposition, rest Worse with: at night, movement of right shoulder Numbness/Tingling: [] Yes [x] No Bladder/bowel fxn change: [] Yes [x] No --- Review of Systems Constitutional: Negative. HENT: Negative. Eyes: Negative. Cardiovascular: Negative. Respiratory: Negative. Endocrine: Negative. Skin: Negative. Musculoskeletal: Positive for back pain, joint pain, muscle weakness, myalgias, neck pain and stiffness. Gastrointestinal: Negative. Genitourinary: Negative. Neurological: Negative. Psychiatric/Behavioral: Positive for depression. The patient is nervous/anxious. === HISTORY: ALLERGIES No Known Allergies PAST MEDICAL HISTORY Diagnosis Date Back pain [facility] Pain management Dr. Jorge follows Coronary artery disease 1 stent placed 09/08/19 Dr. Maldonado follows, started managaing care in 12/2023 Depression PCP manages Diabetes ([facility]) PCP manages Generalized anxiety disorder PCP manages GERD (gastroesophageal reflux disease) controlled with meds PCP follows Heart attack ([facility]) 05/2020 CABG X3-[place] Hypertension PCP manages/ controlled on meds Mixed hyperlipidemia controlled with meds PCP follows Neck pain Dr. Sheehan follows- reported falling off pickup truck bed 08/30/24 and has had problems since. musclespasms down both arms/shoulders AVE (obstructive sleep apnea) sleep study completed 2023 in [facility]. due to anxiety/depression noncompliant with cpap. unable to tolerate mask Other emphysema ([facility]) Maria T Seay N.P. pulmonology [place]. 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 [address] Quintana follows-aspirin/plavix PAST SURGICAL HISTORY Procedure Laterality Date ADDTL NECK SPINE FUSION 06/30/2007 [place] ARTHROTOMY W/MENISCUS REPAIR KNEE Left 06/18/2007 CABG (3) VEIN GRAFTS & ARTERIAL GRAFT(S) 05/2020 [place] Rendon PAST SURGICAL HISTORY OF Left 09/02/2024 stent placement Iliac artery PAST SURGICAL HISTORY OF 09/08/2019 1 stent placed in heart REMOVAL GALLBLADDER 04/11/1986 [facility] TOTAL ABDOM HYSTERECTOMY 08/30/2005 at [facility] No family history on file. Social History Tobacco Use Smoking status: Former Current packs/day: 1.00 Average packs/day: 1 pack/day for 38.0 years (38.0 ttl pk-yrs) Types: Cigarettes Smokeless tobacco: Never Vaping Use Vaping status: Former Substance Use Topics Alcohol use: Yes Drug use: Not Currently Types: Marijuana Comment: occasionally Current Outpatient Medications Medication Sig amLODIPine (NORVASC) 5 mg tablet Take 1 tablet by mouth once daily. methylPREDNISolone (MEDROL DOSE-PACK) 4 mg Dose-Pack A directed ergocalciferol 50,000 unit capsule (VITAMIN D2, DRISDOL) Take 1 capsule by mouth one time a week. losartan (COZAAR) 25 mg tablet Take 25 mg by mouth once daily. tiZANidine (ZANAFLEX) 4 mg tablet TAKE 1 TABLET BY MOUTH EVERY 6 HOURS NEEDED acetaminophen (TYLENOL) 500 mg tablet Take 2 tablets by mouth every 6 hours. JANUMET 50-1,000 mg per tablet Take 1 tablet by mouth two times a day with meals. ARIPiprazole (ABILIFY) 5 mg tablet Take 5 mg by mouth once daily. JARDIANCE 10 mg tablet Take 10 mg by mouth once daily. fluconazole (DIFLUCAN) 100 mg tablet Take 100 mg by mouth as needed (yeast infections). fluticasone (FLONASE) 50 mcg/actuation nasal spray Use 2 Sprays in each nostril once daily. hydrOXYzine HCl (ATARAX) 25 mg tablet Take 25 mg by mouth once daily. lidocaine (LIDODERM) 5 % Apply 1 Patch as directed every 12 hours. ARMS methocarbamol (ROBAXIN) 500 mg tablet Take 1,000 mg by mouth four times a day as needed (PAIN). aspirin 81 mg cap Take 81 mg by mouth once daily. Dr. Quintana manages. No instructions given albuterol HFA (PROVENTIL HFA, VENTOLIN HFA) 90 mcg/actuation inhaler Inhale 1-2 Puffs as instructedevery 6 hours as needed for wheezing/shortness of breath. atorvastatin (LIPITOR) 40 mg tablet Take 40 mg by mouth once daily. clopidogrel (PLAVIX) 75 mg tablet Take 75 mg by mouth once daily. Dr. Quintana manages fluticasone-salmeterol (ADVAIR, WIXELA) 250-50 mcg/dose inhaler Inhale 1 Inhalation as instructed two times a day. metoprolol succinate ER (TOPROL XL) 25 mg 24 hr tablet Take 25 mg by mouth once daily. (Patient taking differently: Take 50 mg by mouth once daily.) pantoprazole DR (PROTONIX) 40 mg tablet Take 40 mg by mouth every afternoon. oxyCODONE IR (ROXICODONE) 10 mg tab pregabalin (LYRICA) 150 mg capsule Take 1 capsule by mouth three times a day for 30 days. Cdgji-9-VFL-EPA-Fish Oil (FISH OIL) 1,000 (120-180) mg cap Take 2 g by mouth once daily. Last dose 11/09 due to surgery cariprazine (VRAYLAR) 1.5 mg capsule Take 1.5 mg by mouth once daily. No current facility-administered medications for this visit. OBJECTIVE: VS: BP 125/68 (BP Site: Left Arm, BP Position: Sitting, BP Cuff Size: Large Adult) Pulse 77 Resp 16 Ht 157.5 cm (5' 2) Wt 74.4 kg (164 lb 0.4 oz) SpO2 98% BMI 30.00 kg/m Body mass index is 30 kg/m . PHYSICAL EXAMINATION: Physical Exam Constitutional: Appearance: Normal appearance. Guards the right shoulder HENT: Head: Normocephalic and atraumatic. Cardiovascular: Rate and Rhythm: Normal rate. Pulmonary: Effort: Pulmonary effort is normal. Musculoskeletal: General: minimal ROM of right shoulder-all planes, +impingement signes Cervical: straighten lordosis, TTP trapezius bilateral. + Gray on the right Right lower leg: No edema. Left lower leg: No edema. Skin: General: Skin is warm. Capillary Refill: Capillary refill takes less than 2 seconds. Neurological: Mental Status: pt is alert and oriented to person, place, and time. Mental status is at baseline. Sensory: No sensory deficit. Motor: diminished bicipital strength on the right Gait: Gait normal. Psychiatric: Mood and Affect: Mood normal. Diagnostic Imaging: Last CT Cervical Spine - Impression Only CT CERVICAL SPINE WO IVCON Exam End: 10/20/2024 9:05 AM (Final result) Impression: IMPRESSION: Degenerative disc disease is most pronounced at C5-C6 with small posterior disc osteophyte complex resulting in mild to moderate canal stenosis. Foraminal stenosis is better characterized on recent MRI. Chronic postsurgical changes of C6-C7 ACDF with plate and screw fixation and interbody grafting. Anatomic Variant: None. Assume 7 cervical vertebrae with counting from ... Last MRI Shoulder - Impression Only MRI SHOULDER WO IVCON RIGHT Exam End: 01/21/2025 8:09 AM (Final result) Impression: IMPRESSION: Rotator cuff tendinosis with small high-grade partial-thickness supraspinatus rotator cuff tear at the leading edge. No atrophy. Capsular edema and thickening which can be seen with adhesive capsulitis. Superior labral tear. ... Other Diagnostic Studies: The [facility] report has been reviewed and is consistent with the patients medical history and medication intake. 09/28/2024 02/16/2025 Pain Disability Index Family/Home Responsibilities: This category includes chores or duties performed around the house (e.g. yard work), errands or favors for other family members (e.g. driving the children to school) 9 8 Recreation: This category includes hobbies, sports, and other similar leisure time activities 9 10 Total disability Social Activity: This category refers to activities which involve participation with friends and acquaintances, other than family members. It includes parties, theater, concerts, dinning out, and other social functions 9 Occupation: This category refers to activities that are a part of or directly related to ones' job.This includes non-paying jobs as well, such as that of a housewife or volunteer worker 10 Total disability 0 No disability Sexual Behavior: This category refers to the frequency and quality of one's sex life 0 No disability 0 No disability Self Care: This category includes activities which involve personal maintenance and independent daily living (e.g. taking a shower, driving, getting dress, etc) 9 8 Life Support Activity: This category refers to basic-life supporting behaviors such as eating, sleeping, and breathing 10 Total disability 8 PDI Score 56 IMPRESSION: (M25.511, G89.29) Chronic right shoulder pain (primary encounter diagnosis) (M47.12) Cervical spondylosis with myelopathy (M79.18) Myofascial pain (M75.01) Adhesive capsulitis of right shoulder (M47.817) Lumbosacral spondylosis without myelopathy Chidi Musa is a 59 year old female here with the following issues: Chronic pain Neck pain , s/p C4-6 PSF on 11/30/[address]ehan. Paresthesia improved. Neck is, overall, 75% better. Previously, she had C6-7 ACDF at [facility] in 2017 Myofascial pain Right shoulder pain. History of rotator cuff tear and currently with adhesive capsulitis Pt is doing PT which is helping neck pain/mobility but not improving shoulder pain. [facility] CSI from Dr Overton did not improve pain. She obtained a second opinion at [facility]. Surgery was discussed but needs to wait 6 months from last neck surgery PLAN -Recommend: Continue follow up with Dr Sheehan as needed for neck pain Continue with PT- suggest dry needling for myofascial pain. She will discuss this option with her therapist. If a new order is needed, she will contact me Continue follow up with ortho for shoulder pain No improvement from [facility] CSI. Trial Right suprascapular nerve blk . If effective but short in duration, will consider RFA Refill Lyrica 105 mg three times a day Refill Tizanidine, recommend using primarily at night Pt is prescribed Tramadol by her PCP Follow up in 3 months The risks, benefits, alternative treatment options and prognosis were discussed and all of patient's questions/concerns were addressed. Follow-up: 3 months May certainly follow up sooner if needed. This note was produced using voice recognition software and therefore may contain typos. Please contact the author with any questions or concerns. Author: Kobi Garsia PA-C 02/16/2025 8:28 AM * Palak Borjas LPN - 02/16/2025 8:19 AM EDT Neck - Less radiating pain since going to PT (still going), feels like a knot in neck. Pain goes into rt arm Had steroid injection from Dr Overton, pain worse. Presently on oral steroids. Uses hemp cream Shoulder- right - pain goes into back. Pain feels deep. [facility] NoteHNO ID: [id number] Author: PALAK BORJAS LPN Service: ? Author Type: LICENSED NURSE Type: Progress Notes Filed: 02/16/2025 09:07 Note Text: Neck - Less radiating pain since going to PT (still going), feels like a knot in neck. Pain goes into rt arm Had steroid injection from Dr Overton, pain worse. Presently on oral steroids. Uses hemp cream Shoulder- right - pain goes into back. Pain feels deep.[facility] 02-15-2025 NoteHNO ID: [id number] Author: SARA WISEMAN, PT Service: ? Author Type: Physical Therapist Type: Progress Notes Filed: 02/15/2025 11:24 Note Text: Episode Visit Count: 7 Therapist That Will Accept/Oversee The Plan Of Care: Sara Wiseman PT Start of Care Date: 01/13/25 Onset Date: 08/30/24 Plan of Care Certification Date: 02/04/25 Next Certification Due Date: 03/18/25 Patient Identified by Name and Date of : Yes REHABILITATION AND SPORTS THERAPY PHYSICAL THERAPY TREATMENT NOTE ASSESSMENT: Chidi Musa tolerated the session with fatigue and expected muscle soreness. She demonstrated improvements in AAROM R shoulder flexion with pulleys. The patient will continue to benefit from ongoing skilled physical therapy to progress toward set goals. PLAN FOR NEXT VISIT: Continue with light cervical stremgthening and AROM. R shoulder AAROM. SUBJECTIVE: Pt reports that she is not feeling the greatest today, having constipation issues but is scheduled to see her doctor today about it. Also has a hernia. Pt states that the knot is back in her neck. The shoulder brace is helping with sleeping. Pain: Pain Pain Level: 6 Pain Location: Neck Description: Tightness Pain Level 2: 10 Pain Location 2: Shoulder - Right, Upper Arm - Right, Elbow - Right, Forearm - Right Description 2: Sharp, Stabbing Post Treatment Pain Post Treatment Pain Level: Better Post Treatment Pain Location: Neck Post Treatment Pain Score 2: (better) Post Treatment Pain Location 2: Shoulder - Right OBJECTIVE MEASURES WITH LEVEL OF FUNCTION: UE PROM R Shoulder Flex: 80 Degrees (AAROM with pulleys) TREATMENT: Therapeutic Exercise: 1: AROM cervical rotation 2x10 B 2: AROM cervical flexion and extension 2x10 3: AROM cervical side bends 2x10 B 4: Cervical SB isometrics x10 B with 5 second hold 5: Cervical flexion isometric x10 with 5 second holds 6: Cervical extension isometric x 10 with 5 second holds Skilled Intervention: Patient was educated in proper exercise technique and purpose for exercises. Skilled judgment was used in selection of appropriate interventions. Correct performance of therapeutic exercises was facilitated with verbal and visual cuing. Manual Therapy: 1: Gentle STM over B lower cervical paraspinals and upper thoracic paraspinals with pt in sitting. Skilled Intervention: Manual skills to improve joint mobility, ROM, and decrease pain. Utilized anatomy knowledge of the clinician, and assessment of patient's response to intervention. Billing Therapeutic Exercise Treatment Minutes: 34 Manual TherapyTreatment Minutes: 10 Skilled Treatment Time Minutes (timed and untimed codes): 44 Total Session Time (minutes): 44 Session Start Time : 839 Session Stop Time : 923 Manuela Liang, ENTRY EXAMINER Sara Wiseman, [facility]05-19-2025 History of Present illness Narrative* Trudyshaun Sara, PT - 02/15/2025 8:42 AM EDT Episode Visit Count: 7 Therapist That Will Accept/Oversee The Plan Of Care: Sara Wiseman PT Start of Care Date: 01/13/25 Onset Date: 08/30/24 Plan of Care Certification Date: 02/04/25 Next Certification Due Date: 03/18/25 Patient Identified by Name and Date of : Yes REHABILITATION AND SPORTS THERAPY PHYSICAL THERAPY TREATMENT NOTE ASSESSMENT: Chidi Musa tolerated the session with fatigue and expected muscle soreness. She demonstrated improvements in AAROM R shoulder flexion with pulleys. The patient will continue to benefit from ongoing skilled physical therapy to progress toward set goals. PLAN FOR NEXT VISIT: Continue with light cervical stremgthening and AROM. R shoulder AAROM. SUBJECTIVE: Pt reports that she is not feeling the greatest today, having constipation issues but is scheduled to see her doctor today about it. Also has a hernia. Pt states that the knot is back in her neck. The shoulder brace is helping with sleeping. Pain: Pain Pain Level: 6 Pain Location: Neck Description: Tightness Pain Level 2: 10 Pain Location 2: Shoulder - Right, Upper Arm - Right, Elbow - Right, Forearm - Right Description 2: Sharp, Stabbing Post Treatment Pain Post Treatment Pain Level: Better Post Treatment Pain Location: Neck Post Treatment Pain Score 2: (better) Post Treatment Pain Location 2: Shoulder - Right OBJECTIVE MEASURES WITH LEVEL OF FUNCTION: UE PROM R Shoulder Flex: 80 Degrees (AAROM with pulleys) TREATMENT: Therapeutic Exercise: 1: AROM cervical rotation 2x10 B 2: AROM cervical flexion and extension 2x10 3: AROM cervical side bends 2x10 B 4: Cervical SB isometrics x10 B with 5 second hold 5: Cervical flexion isometric x10 with 5 second holds 6: Cervical extension isometric x 10 with 5 second holds Skilled Intervention: Patient was educated in proper exercise technique and purpose for exercises. Skilled judgment was used in selection of appropriate interventions. Correct performance of therapeutic exercises was facilitated with verbal and visual cuing. Manual Therapy: 1: Gentle STM over B lower cervical paraspinals and upper thoracic paraspinals with pt in sitting. Skilled Intervention: Manual skills to improve joint mobility, ROM, and decrease pain. Utilized anatomy knowledge of the clinician, and assessment of patient's response to intervention. Billing Therapeutic Exercise Treatment Minutes: 34 Manual TherapyTreatment Minutes: 10 Skilled Treatment Time Minutes (timed and untimed codes): 44 Total Session Time (minutes): 44 Session Start Time : 839 Session Stop Time : 923 DURGA Castrejon PT documented in [facility]The [facility] History of Present illness Narrative* Manuela Liang PTA - 02/11/2025 9:25 AM EDT Program_ID:[id number] Access Code: [email or web address] URL: [email or web address] Date: 02-11-2025 Prepared By: Sara Wiseman Program Notes Exercises - Seated Cervical Flexion AROM - 3 x daily - 7 x weekly - 2 sets - 10 reps - Seated Cervical Extension AROM - 3 x daily - 7 x weekly - 2 sets - 10 reps - Seated Cervical Sidebending AROM - 3 x daily - 7 x weekly - 2 sets - 10 reps - Seated Cervical Rotation AROM - 3 x daily - 7 x weekly - 2 sets - 10 reps - Standing Isometric Cervical Sidebending with Manual Resistance - 1 x daily - 7 x weekly - 2 sets - 5-10 reps - Standing Isometric Cervical Extension with Manual Resistance - 1 x daily - 7 x weekly - 2 sets - 5-10 reps - Standing Isometric Cervical Flexion with Manual Resistance - 1 x daily - 7 x weekly - 2 sets - 5-10 reps - Seated Shoulder Flexion Towel Slide at Table Top - 1 x daily - 7 x weekly - 2 sets - 10 reps * Trudyshaun Sara, PT - 02/11/2025 8:44 AM EDT Episode Visit Count: 6 Therapist That Will Accept/Oversee The Plan Of Care: Sara Wiseman PT Start of Care Date: 01/13/25 Onset Date: 08/30/24 Plan of Care Certification Date: 02/04/25 Next Certification Due Date: 03/18/25 Patient Identified by Name and Date of : Yes REHABILITATION AND SPORTS THERAPY PHYSICAL THERAPY TREATMENT NOTE ASSESSMENT: Chidi Musa tolerated the session with fatigue and expected muscle soreness. She demonstrated improvements in tolerance to initiation of cervical strengthening through isometrics. The patient will continue to benefit from ongoing skilled physical therapy to progress toward set goals. PLAN FOR NEXT VISIT: Asses response to isometrics SUBJECTIVE: Pt reports that she saw a Shefali Mcmillan PA-C at [facility], for a second opinion. Pt states that no one will do any surgery until she is healed from her cervical surgery. Pt wasprescribed Prednisone and a RTC brace to help support her arm with sleeping. Pt states that after last session her neck was super sore and it lasted for 4 days, pt states it just calmed down and would like to defer manual therapy this visit. Pain: Pain Pain Level: 2 Pain Location: Neck Description: Tightness Pain Level 2: 10 Pain Location 2: Shoulder - Right, Upper Arm - Right, Elbow - Right, Forearm - Right Description 2: Sharp, Stabbing Post Treatment Pain Post Treatment Pain Level: (Feels a little overworked) Post Treatment Pain Location: Neck Post Treatment Pain Score 2: No Change Post Treatment Pain Location 2: Shoulder - Right OBJECTIVE MEASURES WITH LEVEL OF FUNCTION: Limited mobility with table slides TREATMENT: Therapeutic Exercise: 1: AROM cervical rotation 2x10 B 2: AROM cervical flexion and extension 2x10 3: AROM cervical side bends 2x10 B 4: seated scapular retraction 2x10 in front of mirror to avoid scapular elevation 5: standing R shoulder pendulums side to side and front to back 2x10 each 6: seated R shoulder flexion AAROM with rope and kristi 2x10 7: seated R shoulder abduction AAROM with rope and kristi x10 8: *Table slides for flexion 3x5 9: *Cervical SB isometrics x5 B with 5 second hold 10: *Cervical flexion isometric x5 with 5 second holds 11: *Cervical extension isometric x 5 with 5 second holds Skilled Intervention: Patient was educated in proper exercise technique and purpose for exercises. Reviewed and educated patient on additions/changes for home exercise program as above (*). Skilled judgment was used in selection of appropriate interventions. Provided written instruction for home exercise program to facilitate proper performance and compliance. Correct performance of therapeutic exercises was facilitated with verbal and visual cuing. Billing Therapeutic Exercise Treatment Minutes: 40 Skilled Treatment Time Minutes (timed and untimed codes): 40 Total Session Time (minutes): 40 Session Start Time : 841 Session Stop Time : 921 DURGA Castrejon PT documented in this encounterThe [facility] NoteHNO ID: [id number] Author: SARA WISEMAN PT Service: ? Author Type: Physical Therapist Type: Progress Notes Filed: 02/11/2025 14:29 Note Text: Episode Visit Count: 6 Therapist That Will Accept/Oversee The Plan Of Care: Sara Wiseman PT Start of Care Date: 01/13/25 Onset Date: 08/30/24 Plan of Care Certification Date: 02/04/25 Next Certification Due Date: 03/18/25 Patient Identified by Name and Date of : Yes REHABILITATION AND SPORTS THERAPY PHYSICAL THERAPY TREATMENT NOTE ASSESSMENT: Chidi Musa tolerated the session with fatigue and expected muscle soreness. She demonstrated improvements in tolerance to initiation of cervical strengthening through isometrics. The patient will continue to benefit from ongoing skilled physical therapy to progress toward set goals. PLAN FOR NEXT VISIT: Asses response to isometrics SUBJECTIVE: Pt reports that she saw a Shefali Mcmillan PA-C at [facility], for a second opinion. Pt states that no one will do any surgery until she is healed from her cervical surgery. Pt was prescribed Prednisone and a RTC brace to help support her arm with sleeping. Pt states that after last session her neck was super sore and it lasted for 4 days, pt states it just calmed down and would like to defer manual therapy this visit. Pain: Pain Pain Level: 2 Pain Location: Neck Description: Tightness Pain Level 2: 10 Pain Location 2: Shoulder - Right, Upper Arm - Right, Elbow - Right, Forearm - Right Description 2: Sharp, Stabbing Post Treatment Pain Post Treatment Pain Level: (Feels a little overworked) Post Treatment Pain Location: Neck Post Treatment Pain Score 2: No Change Post Treatment Pain Location 2: Shoulder - Right OBJECTIVE MEASURES WITH LEVEL OF FUNCTION: Limited mobility with table slides TREATMENT: Therapeutic Exercise: 1: AROM cervical rotation 2x10 B 2: AROM cervical flexion and extension 2x10 3: AROM cervical side bends 2x10 B 4: seated scapular retraction 2x10 in front of mirror to avoid scapular elevation 5: standing R shoulder pendulums side to side and front to back 2x10 each 6: seated R shoulder flexion AAROM with rope and kristi 2x10 7: seated R shoulder abduction AAROM with rope and kristi x10 8: *Table slides for flexion 3x5 9: *Cervical SB isometrics x5 B with 5 second hold 10: *Cervical flexion isometric x5 with 5 second holds 11: *Cervical extension isometric x 5 with 5 second holds Skilled Intervention: Patient was educated in proper exercise technique and purpose for exercises. Reviewed and educated patient on additions/changes for home exercise program as above (*). Skilled judgment was used in selection of appropriate interventions. Provided written instruction for home exercise program to facilitate proper performance and compliance. Correct performance of therapeutic exercises was facilitated with verbal and visual cuing. Billing Therapeutic Exercise Treatment Minutes: 40 Skilled Treatment Time Minutes (timed and untimed codes): 40 Total Session Time (minutes): 40 Session Start Time : 841 Session Stop Time : 921 Manuela Liang, DURGA Wiseman, [facility]05-09-2025 Telephone encounter Note* Telephone Encounter - Claudia Washington PSS - 02/05/2025 12:17 PM EDT [facility] Miscellaneous Notes* Telephone Encounter - Claudia Washington PSS - 02/05/2025 12:17 PM EDT Pt picked up * Telephone Encounter - Marte, Christelle - 02/03/2025 8:16 AM EDT Patient is requesting disc of 01/21/25 MRI Shoulder RT. PSS explained that a separate release would need signed for report and to provide the fax number ofthe non [facility] office. 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 documented in this encounterThe [facility]05-[facility]25 NoteHNO ID: [id number] Author: SARA WISEMAN PT Service: ? Author Type: Physical Therapist Type: Progress Notes Filed: 02/04/2025 17:38 Note Text: Episode Visit Count: 5 Therapist That Will Accept/Oversee The Plan Of Care: Sara Wiseman PT Start of Care Date: 01/13/25 Onset Date: 08/30/24 Plan of Care Certification Date: 02/04/25 Next Certification Due Date: 03/18/25 Patient Identified by Name and Date of : Yes REHABILITATION AND SPORTS THERAPY PHYSICAL THERAPY PROGRESS REPORT PLAN OF CARE UPDATE: Assessment: Chidi Paige Musa demonstrates moderate improvement in cervical spine, especially ROM and difficulty with R UE symptoms and function. The patient has progressed toward goals. Patient continues to present with impairments in ADL's, independence in exercise, overall function, patient reported outcome measures, posture, range of motion, soft tissue healing, strength, and symptom management that interfere with reaching overhead, reaching behind back, dressing, lifting, sleeping, grooming . Current prognosis is Good due to: current objective clinical presentation, positive past response to therapy, within-session changes. The patient will benefit from continued skilled therapy services to meet the updated goals for this plan of care as noted below. Updated: 02/04/25 Goals for Episode of Care: established 01/13/25 Patient reported outcome of physical function will increase T-score by a minimum 5 points. - Partially MET, will continue Boles in home exercise program. - MET, will continue and progress to tolerance. Patient will decrease R shoulder pain rating by 2 points to meet minimal clinical important difference for numeric pain rating scale. - Not MET, will continue Patient will increase active ROM of R shoulder to WFL, symmetrical and pain-free to allow pt to to improve performance of ADLs. - Not MET, will continue Perform reaching, lifting, dressing and grooming with decreased report of symptoms/pain in 6 weeks. - Not MET, will continue Patient will decrease neck pain rating by 2 points to meet minimal clinical important difference for numeric pain rating scale.- Partially MET, will continue Restore pain free cervical ROM to WFL to allow for improved tolerance with design tech. - Partially MET, will continue Sleep throughout the night without pain/symptoms. - Not MET, will continue Patient will increase strength of postural muscles to WFL to allow for improve ability to maintain proper posture, improve mechanics, and decrease pain. - Not MET, will continue Patient Goals: decrease pain and be able to plant lira this spring. Walk dog - Not MET, will continue Time Frame for Goals and Treatment : 03/18/25 Patient Goals: decrease pain and be able to plant lira this spring. Walk dog Planned Interventions, Frequency, and Duration: 2x/week, 6 weeks Total Number of Visits Planned: 12 Patient to be seen for Therapeutic exercise (64873), Neuromuscular re-education (41815), Manual therapy (60823), Therapeutic activities (88264), Self-[place] [facility] management ([id number]), Patient/Family/Caregiver Education, Body Mechanics Training PLAN FOR NEXT VISIT: Continue with gentle therex for R UE and cervical spine. Progress to tolerance and continue manual therapy. SUBJECTIVE: Pt reports that overall her neck is improved but R shoulder and UE symptoms are worse. She continues to report tightness in her neck but not actual pain. She reports that R UE symptoms are severe and constant. She reports that R UE symptoms are in shoulder, upper arm and forearm. She reports that the manual therapy treatments have provided relief for 2 days the last two sessions. She prefers to do this in seated position because laying down aggravates her shoulder and UE. She denies any improvements with sleeping. She reports that functionally, reaching, lifting, dressing and grooming are not improved. She denies any improvements with design tech. She reports that she is still not able to walk her dog either. Patient Goals: decrease pain and be able to plant lira this spring. Walk dog Functional Limitations: reaching overhead, reaching behind back, dressing, lifting, sleeping, grooming Prior Level of Function: Independent without limitations Intake Information: Prescription present Previous Treatment: Surgery Pain: Pain Pain Level: 5 Pain Location: Neck Description: Tightness (not really pain, just tightness) Frequency: Intermittent Additional Pain Information : Location 2 Pain Level 2: 10 Pain Location 2: Shoulder - Right, Upper Arm - Right, Elbow - Right, Forearm - Right Description 2: Sharp, Stabbing Frequency 2: Continuous Post Treatment Pain Post Treatment Pain Level: 1 Post Treatment Pain Location: Neck Post Treatment Pain Description: (better) Post Treatment Pain Score 2: 5/10 Post Treatment Pain Location 2: Shoulder - Right Post Treatment (more content not included)...[facility] 02-04-2025 History of Present illness Narrative* Sara Wiseman, PT - 02/04/2025 5:35 PM EDT Images from the original note were not included. Episode Visit Count: 5 Therapist That Will Accept/Oversee The Plan Of Care: Sara Wiseman PT Start of Care Date: 01/13/25 Onset Date: 08/30/24 Plan of Care Certification Date: 02/04/25 Next Certification Due Date: 03/18/25 Patient Identified by Name and Date of : Yes REHABILITATION AND SPORTS THERAPY PHYSICAL THERAPY PROGRESS REPORT PLAN OF CARE UPDATE: Assessment: Chidi Gibson Eva demonstrates moderate improvement in cervical spine, especially ROM and difficultywith R UE symptoms and function. The patient has progressed toward goals. Patient continues to present with impairments in ADL's, independence in exercise, overall function, patient reported outcome measures, posture, range of motion, soft tissue healing, strength, and symptom management that interfere with reaching overhead, reaching behind back, dressing, lifting, sleeping, grooming . Current prognosis is Good due to: current objective clinical presentation, positive past response to therapy,within-session changes. The patient will benefit from continued skilled therapy services to meet the updated goals for this plan of care as noted below. Updated: 02/04/25 Goals for Episode of Care: established 01/13/25 Patient reported outcome of physical function will increase T-score by a minimum 5 points. - Partially MET, will continue Boles in home exercise program. - MET, will continue and progress to tolerance. Patient will decrease R shoulder pain rating by 2 points to meet minimal clinical important difference for numeric pain rating scale. - Not MET, will continue Patient will increase active ROM of R shoulder to WFL, symmetrical and pain-free to allow pt to to improve performance of ADLs. - Not MET, will continue Perform reaching, lifting, dressing and grooming with decreased report of symptoms/pain in 6 weeks. - Not MET, will continue Patient will decrease neck pain rating by 2 points to meet minimal clinical important difference for numeric pain rating scale.- Partially MET, will continue Restore pain free cervical ROM to WFL to allow for improved tolerance with design tech. - Partially MET, will continue Sleep throughout the night without pain/symptoms. - Not MET, will continue Patient will increase strength of postural muscles to WFL to allow for improve ability to maintain proper posture, improve mechanics, and decrease pain. - Not MET, will continue Patient Goals: decrease pain and be able to plant lira this spring. Walk dog - Not MET, will continue Time Frame for Goals and Treatment : 03/18/25 Patient Goals: decrease pain and be able to plant lira this spring. Walk dog Planned Interventions, Frequency, and Duration: 2x/week, 6 weeks Total Number of Visits Planned: 12 Patient to be seen for Therapeutic exercise (99282), Neuromuscular re-education (20190), Manual therapy (68652), Therapeutic activities (14861), Self-[place] [facility] [place] management ([id number]), Patient/Family/Caregiver Education, Body Mechanics Training PLAN FOR NEXT VISIT: Continue with gentle therex for R UE and cervical spine. Progress to toleranceand continue manual therapy. SUBJECTIVE: Pt reports that overall her neck is improved but R shoulder and UE symptoms are worse. She continues to report tightness in her neck but not actual pain. She reports that R UE symptoms are severe and constant. She reports that R UE symptoms are in shoulder, upper arm and forearm. She reports that the manual therapy treatments have provided relief for 2 days the last two sessions. She prefers to do this in seated position because laying down aggravates her shoulder and UE. She deniesany improvements with sleeping. She reports that functionally, reaching, lifting, dressing and grooming are not improved. She denies any improvements with design tech. She reports that she is still not able to walk her dog either. Patient Goals: decrease pain and be able to plant lira this spring. Walk dog Functional Limitations: reaching overhead, reaching behind back, dressing, lifting, sleeping, grooming Prior Level of Function: Independent without limitations Intake Information: Prescription present Previous Treatment: Surgery Pain: Pain Pain Level: 5 Pain Location: Neck Description: Tightness (not really pain, just tightness) Frequency: Intermittent Additional Pain Information : Location 2 Pain Level 2: 10 Pain Location 2: Shoulder - Right, Upper Arm - Right, Elbow - Right, Forearm - Right Description 2: Sharp, Stabbing Frequency 2: Continuous Post Treatment Pain Post Treatment Pain Level: 1 Post Treatment Pain Location: Neck Post Treatment Pain Description: (better) Post Treatment Pain Score 2: 5/10 Post Treatment Pain Location 2: Shoulder - Right Post Treatment Pain Description 2: (better) PROMIS Scales 02/02/2025 01/12/2025 01/06/2025 Higher is Better Phys Func - T Score 28 (severe dysfunction) 24 (severe dysfunction) Phys Func - Percentile 1 0 Self-Eff Symptom - T Score 26 (Very Low) Self-Eff Symptom - Percentile 1 01/12/2025 Lower is Better Pain Interference - T Score 81 (severe) Pain Interference - Percentile 0 T-scores: mean of general population = 50. 5 points is clinically meaningfully difference Percentiles provide an indication of how the patient's score ranks in relation to the general population. Higher percentile rankings indicate better function/quality of life. 50th percentile is the average of the general population and indicates half of respondents had a worse score. OBJECTIVE MEASURES WITH LEVEL OF FUNCTION: Spine Observations R Cervical Spine Palpation Tenderness: Upper trapezius, Levator scapulae Cervical Spine ROM Cervical ROM : Measurement AROM Cervical Flexion AROM (degrees) : 55 Degrees Cervical Extension AROM (degrees) : 58 Degrees (this triggered symptoms down R UE to forearm and shot) Cervical Side-Bend Right AROM (degrees): 36 Degrees Cervical Side-Bend Left AROM (degrees) : 37 Degrees Cervical Rotation Right AROM (degrees) : 72 Degrees Cervical Rotation Left AROM (degrees) : 73 Degrees UE AROM R UE AROM: seated L UE AROM: seated R Shoulder Extension: 12 Degrees R Shoulder Flex: 41 Degrees R Shoulder ABduction: 27 Degrees R Shoulder Internal Rotation (Functional): unable to reach behind back R Shoulder External Rotation (Functional): unable to reach behind head Special Tests - Cervical Cervical Special Tests: (Active cervical spine extension reproduced her radicular symptoms in R UE to forearm) TREATMENT: Therapeutic Exercise: 1: AROM cervical rotation 2x10 B 2: AROM cervical flexion and extension 2x10 3: AROM cervical side bends 2x10 B 4: seated scapular retraction 2x10 in front of mirror to avoid scapular elevation 5: standing R shoulder pendulums side to side and front to back 2x10 each 6: seated R shoulder flexion AAROM with rope and kristi 2x10 7: seated R shoulder abduction AAROM with rope and kristi x10 8: Significant time spent educating patient on the likely etiology of her symptoms, the difference between radicular nerve symptoms and musculoskeletal pain and the rationale for treatment options. Her MRI results were clarified. Skilled Intervention: Patient was educated in proper exercise technique and purpose for exercises. Skilled judgment was used in selection of appropriate interventions. Correct performance of therapeutic exercises was facilitated with verbal and visual cuing. Patient education as noted. Manual Therapy: 1: Gentle STM and trigger point release over lower cervical muscles with focus on R levator scapulae and UT x10 minutes with pressure to pt tolerance. Skilled Intervention: Manual skills to improve joint mobility, ROM, and decrease pain. Utilized anatomy knowledge of the clinician, and assessment of patient's response to intervention. Billing Therapeutic Exercise Treatment Minutes: 41 Manual TherapyTreatment Minutes: 10 Skilled Treatment Time Minutes (timed and untimed codes): 51 Total Session Time (minutes): 51 Session Start Time : 955 Session Stop Time : 1046 Saar Wiseman PT documented [facility]The [facility] Telephone encounter Note * Telephone Encounter - Christelle Marte - 02/03/2025 8:16 AM EDT Patient is requesting disc of 01/21/25 MRI Shoulder RT. PSS explained that a separate release would need signed for report and to provide the fax number ofthe non [facility] office. 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 [facility]05-06-[facility] Telephone encounter Note* Telephone Encounter - Hina Torres MA - 02/02/2025 4:03 PM EDT Chidi called into the office today with concerns of worsened shoulder pain since an injection thatis radiating through the forearm. She was asking if Dr. Sheehan could take over the care for the shoulder and arm. I informed her that Dr. Sheehan only treats spine, that she would need to call and schedule a follow up with Dr. Overton. She verbalized understanding. [facility]05-06-[facility] Miscellaneous Notes* Telephone Encounter - Hina Torres MA - 02/02/2025 4:03 PM EDT Chidi called into the office today with concerns of worsened shoulder pain since an injection thatis radiating through the forearm. She was asking if Dr. Sheehan could take over the care for the shoulder and arm. I informed her that Dr. Sheehan only treats spine, that she would need to call and schedule a follow up with Dr. Overton. She verbalized understanding. documented in this encounterThe [facility]05-[facility]25 NoteHNO ID: [id number] Author: SARA WISEMAN PT Service: ? Author Type: Physical Therapist Type: Progress Notes Filed: 02/02/2025 14:19 Note Text: Episode Visit Count: 4 Therapist That Will Accept/Oversee The Plan Of Care: Sara Wiseman PT Start of Care Date: 01/13/25 Onset Date: 08/30/24 Plan of Care Certification Date: 01/13/25 Next Certification Due Date: 02/24/25 Patient Identified by Name and Date of : Yes REHABILITATION AND SPORTS THERAPY PHYSICAL THERAPY TREATMENT NOTE ASSESSMENT: Chidi Musa tolerated the session with fatigue, decreased symptoms, and expected muscle soreness. She demonstrated difficulty with pulleys for abduction. The patient will continue to benefit from ongoing skilled physical therapy to progress toward set goals. PLAN FOR NEXT VISIT: Asses response to STM in prone. Continue with gentle cervical AROM. AAROM for R shoulder as tolerated. SUBJECTIVE: Pt reports that she had 2 days relief in the neck from last session. Pt staes that she is calling her surgeon today about her arm, having more pain in her R upper arm and has increased since her injection. Pain: Pain Pain Level: 5 Pain Location: Neck Description: Dull, Aching Pain Level 2: 10 Pain Location 2: Shoulder - Right, Upper Arm - Right, Elbow - Right, Forearm - Right Description 2: Aching, Sharp, Stabbing Post Treatment Pain Post Treatment Pain Level: Better Post Treatment Pain Location: Neck Post Treatment Pain Location 2: Shoulder - Right Post Treatment Pain Description 2: (felt more relaxed) OBJECTIVE MEASURES WITH LEVEL OF FUNCTION: AROM elbow flexion to approx 90 degrees, but painful in biceps. TREATMENT: Therapeutic Exercise: 1: AROM cervical rotation 2x10 B 2: AROM cervical flexion and extension 2x10 3: AROM cervical side bends 2x10 B 4: seated scapular retraction 2x10 in front of mirror to avoid scapular elevation 5: standing R shoulder pendulums side to side and front to back 2x10 each 6: seated R shoulder flexion AAROM with rope and kristi 2x10 7: seated R shoulder abduction AAROM with rope and kristi 1x10 (very painful this visit.) Skilled Intervention: Patient was educated in proper exercise technique and purpose for exercises. Skilled judgment was used in selection of appropriate interventions. Correct performance of therapeutic exercises was facilitated with verbal and visual cuing. Manual Therapy: 1: Gentle STM over R UT and levator with pt in prone ( pt preferred this position) x 11 minutes after therapeutic exercise Skilled Intervention: Manual skills to improve joint mobility, ROM, and decrease pain. Utilized anatomy knowledge of the clinician, and assessment of patient's response to intervention. Billing Therapeutic Exercise Treatment Minutes: 33 Manual TherapyTreatment Minutes: 11 Skilled Treatment Time Minutes (timed and untimed codes): 44 Total Session Time (minutes): 44 Session Start Time : 925 Session Stop Time : 1009 DURGA Castrejon[facility] History of Present illness Narrative* Sara Wiseman, PT - 02/02/2025 9:39 AM EDT Episode Visit Count: 4 Therapist That Will Accept/Oversee The Plan Of Care: Sara Wiseman PT Start of Care Date: 01/13/25 Onset Date: 08/30/24 Plan of Care Certification Date: 01/13/25 Next Certification Due Date: 02/24/25 Patient Identified by Name and Date of : Yes REHABILITATION AND SPORTS THERAPY PHYSICAL THERAPY TREATMENT NOTE ASSESSMENT: Chidi Musa tolerated the session with fatigue, decreased symptoms, and expected muscle soreness. She demonstrated difficulty with pulleys for abduction. The patient will continue tobenefit from ongoing skilled physical therapy to progress toward set goals. PLAN FOR NEXT VISIT: Asses response to STM in prone. Continue with gentle cervical AROM. AAROM for R shoulder as tolerated. SUBJECTIVE: Pt reports that she had 2 days relief in the neck from last session. Pt staes that she is calling her surgeon today about her arm, having more pain in her R upper arm and has increased since her injection. Pain: Pain Pain Level: 5 Pain Location: Neck Description: Dull, Aching Pain Level 2: 10 Pain Location 2: Shoulder - Right, Upper Arm - Right, Elbow - Right, Forearm - Right Description 2: Aching, Sharp, Stabbing Post Treatment Pain Post Treatment Pain Level: Better Post Treatment Pain Location: Neck Post Treatment Pain Location 2: Shoulder - Right Post Treatment Pain Description 2: (felt more relaxed) OBJECTIVE MEASURES WITH LEVEL OF FUNCTION: AROM elbow flexion to approx 90 degrees, but painful in biceps. TREATMENT: Therapeutic Exercise: 1: AROM cervical rotation 2x10 B 2: AROM cervical flexion and extension 2x10 3: AROM cervical side bends 2x10 B 4: seated scapular retraction 2x10 in front of mirror to avoid scapular elevation 5: standing R shoulder pendulums side to side and front to back 2x10 each 6: seated R shoulder flexion AAROM with rope and kristi 2x10 7: seated R shoulder abduction AAROM with rope and kristi 1x10 (very painful this visit.) Skilled Intervention: Patient was educated in proper exercise technique and purpose for exercises. Skilled judgment was used in selection of appropriate interventions. Correct performance of therapeutic exercises was facilitated with verbal and visual cuing. Manual Therapy: 1: Gentle STM over R UT and levator with pt in prone ( pt preferred this position) x 11 minutes after therapeutic exercise Skilled Intervention: Manual skills to improve joint mobility, ROM, and decrease pain. Utilized anatomy knowledge of the clinician, and assessment of patient's response to intervention. Daphne Therapeutic Exercise Treatment Minutes: 33 Manual TherapyTreatment Minutes: 11 Skilled Treatment Time Minutes (timed and untimed codes): 44 Total Session Time (minutes): 44 Session Start Time : 925 Session Stop Time : 1009 Manuela Liang, ENTRY EXAMINER Sara Wiseman PT [facility] Telephone encounter Note * Telephone Encounter - Cornell KarimiCassie - 01/29/2025 1:11 PM EDT I just called Chidi back, but had to leave a message. I left her Dr. Overton's reply below on her voicemail. ^^^^^^^^^^^^^^^^^^^^^^^^^ ----- Message from Marlee Overton MD sent at 01/29/2025 12:04 PM EDT ----- Regarding: RE: Post injection complaints No I doubt the forearm pain is coming from her shoulder. She has a bad neck and probably is the reason her forearm is hurting. But tell her nothing to worry about. ----- Message ----- From: Cornell Karimi Cassie Sent: 01/29/2025 10:29 AM EDT To: Marlee Overton MD Subject: RE: Post injection complaints Did you mean this is normal side effect sometimes and just recheck in 6 wks? ----- Message ----- From: Marlee Overton MD Sent: 01/29/2025 9:31 AM EDT To: Cassie Karimi Subject: RE: Post injection complaints No need for MRI of forearm. This is likely coming from her neck. Just normalize and I'll check on her in 6 weeks. ----- Message ----- From: Cornell Karimi Cassie Sent: 01/29/2025 9:16 AM EDT To: Marlee Overton MD Subject: Post injection complaints Chidi called this morning stating since injection earlier this week she is having more shoulder pain that is going into her forearm. She thinks she needs an MRI of her forearm now and is asking for an order. I let her know you are in surgery all day, but that I would send message to see what is appropriatefor next step. [facility]05-[facility] Miscellaneous Notes* Telephone Encounter - Cornell KarimiCassie - 01/29/2025 1:11 PM EDT I just called Chidi back, but had to leave a message. I left her Dr. Overton's reply below on her voicemail. ^^^^^^^^^^^^^^^^^^^^^^^^^ ----- Message from Marlee Overton MD sent at 01/29/2025 12:04 PM EDT ----- Regarding: RE: Post injection complaints No I doubt the forearm pain is coming from her shoulder. She has a bad neck and probably is the reason her forearm is hurting. But tell her nothing to worry about. ----- Message ----- From: Cassie Lopez Sent: 01/29/2025 10:29 AM EDT To: Marlee Overton MD Subject: RE: Post injection complaints Did you mean this is normal side effect sometimes and just recheck in 6 wks? ----- Message ----- From: Marlee Overton MD Sent: 01/29/2025 9:31 AM EDT To: Cassie Karimi Subject: RE: Post injection complaints No need for MRI of forearm. This is likely coming from her neck. Just normalize and I'll check on her in 6 weeks. ----- Message ----- From: Cassie Lopez Sent: 01/29/2025 9:16 AM EDT To: Marlee Overton MD Subject: Post injection complaints Chidi called this morning stating since injection earlier this week she is having more shoulder pain that is going into her forearm. She thinks she needs an MRI of her forearm now and is asking for an order. I let her know you are in surgery all day, but that I would send message to see what is appropriatefor next step. documented in [facility] encounterThe [facility]05-[facility] Telephone encounter Note * Telephone Encounter - Neelam Manuel RN - 01/29/2025 8:49 AM EDT Pt called and LM on care line noting that [place] changed [place]. Pt asking to disregard previous message. Neelam Manuel RN January 29, 2025 8:51 AM [facility]05-02-20[facility] Miscellaneous Notes* Telephone Encounter - Neelam Manuel RN - 01/29/2025 8:49 AM EDT Pt called and LM on care line noting that she changed her mind and [place] keep [place] our [place] in [place]. Pt asking to disregard previous message. Neelam Manuel RN January 29, 2025 8:51 AM documented in this encounterThe [facility]05-[facility] Telephone encounter Note * Telephone Encounter - Fernando Camacho - 01/28/2025 1:02 PM EDT Patient stopped by the [place] office today, hoping to get scheduled with [facility]. She has been seeing another pain management practice recently so she signed a records release request and was told aboutthe release of care letter that is required. Notified her that once we have her records (and a release of car letter) from the other practice we will reach out to get her scheduled. Fernando Camacho [facility]05-01-2025 Miscellaneous Notes* Telephone Encounter - CamachoFernando flores - 01/28/2025 1:02 PM EDT Patient stopped by the [place] office today, hoping to get scheduled with [facility]. She has been seeing another pain management practice recently so she signed a records release request and was told aboutthe release of care letter that is required. Notified her that once we have her records (and a release of car letter) from the other practice we will reach out to get her scheduled. Fernando Camacho documented in this encounterThe [facility]05-01-2025 NoteHNO ID: [id number] Author: SARA WISEMAN PT Service: ? Author Type: Physical Therapist Type: Progress Notes Filed: 01/28/2025 11:35 Note Text: Episode Visit Count: 3 Therapist That Will Accept/Oversee The Plan Of Care: Sara Wiseman PT Start of Care Date: 01/13/25 Onset Date: 08/30/24 Plan of Care Certification Date: 01/13/25 Next Certification Due Date: 02/24/25 Patient Identified by Name and Date of : Yes REHABILITATION AND SPORTS THERAPY PHYSICAL THERAPY TREATMENT NOTE ASSESSMENT: Chidi Musa tolerated the session with decreased symptoms. She demonstrated improvements in pain and ROM in the short term. The patient will continue to benefit from ongoing skilled physical therapy to progress toward set goals and to continue with post-operative protocol. PLAN FOR NEXT VISIT: Continue with AROM for cervical spine with postural/scapular strengthening within lifting restrictions. Continue with gentle therex for R shoulder as tolerated. Continue manual therapy to tolerance. Consider supine for manual therapy and continued emphasis on R levator scapulae and UT. SUBJECTIVE: Pt reports that last session gave her 4 hours of relief but that symptoms returned and her neck is the same as it has been. She feels that manual therapy helped her. She reports that her R shoulder is still consistently painful and worse today without explanation. She reports no relief with injection that she received in R shoulder 01/26/25. Pain: Pain Pain Level: 8 Pain Location: Neck Description: Dull, Aching Frequency: Intermittent Additional Pain Information : Location 2 Pain Level 2: 10 Pain Location 2: Shoulder - Right, Upper Arm - Right, Elbow - Right, Forearm - Right Description 2: Aching, Sharp, Stabbing Frequency 2: Continuous Post Treatment Pain Post Treatment Pain Level: Better Post Treatment Pain Location: Neck Post Treatment Symptoms: After session pt reported that she had better ROM and less pain in her neck Post Treatment Pain Location 2: Shoulder - Right Post Treatment Pain Description 2: (after manual therapy pt reported that R UE symptoms were abolished.) OBJECTIVE MEASURES WITH LEVEL OF FUNCTION: TREATMENT: Therapeutic Exercise: 1: AROM cervical rotation 2x10 B 2: AROM cervical flexion and extension 2x10 3: AROM cervical side bends 2x10 B 4: seated scapular retraction 2x10 in front of mirror to avoid scapular elevation 5: standing R shoulder pendulums side to side and front to back 2x10 each 6: seated R shoulder flexion AAROM with rope and kristi 2x10 7: seated R shoulder abduction AAROM with rope and kristi 2x10 Skilled Intervention: Patient was educated in proper exercise technique and purpose for exercises. Skilled judgment was used in selection of appropriate interventions. Correct performance of therapeutic exercises was facilitated with verbal, visual, and tactile cuing. Patient education as noted. Manual Therapy: 1: Gentle STM and trigger point release over lower cervical muscles with focus on R levator scapulae and UT x10 minutes with pressure to pt tolerance. Skilled Intervention: Manual skills to improve joint mobility, ROM, and decrease pain. Utilized anatomy knowledge of the clinician, and assessment of patient's response to intervention. Daphne Therapeutic Exercise Treatment Minutes: 35 Manual TherapyTreatment Minutes: 10 Skilled Treatment Time Minutes (timed and untimed codes): 45 Total Session Time (minutes): 45 Session Start Time : 1047 Session Stop Time : 1132 Sara Wiseman [facility]05-01-2025 History of Present illness Narrative* Sara Wiseman PT - 01/28/2025 11:34 AM EDT Episode Visit Count: 3 Therapist That Will Accept/Oversee The Plan Of Care: Sara Wiseman PT Start of Care Date: 01/13/25 Onset Date: 08/30/24 Plan of Care Certification Date: 01/13/25 Next Certification Due Date: 02/24/25 Patient Identified by Name and Date of : Yes REHABILITATION AND SPORTS THERAPY PHYSICAL THERAPY TREATMENT NOTE ASSESSMENT: Chidi Musa tolerated the session with decreased symptoms. She demonstrated improvements in pain and ROM in the short term. The patient will continue to benefit from ongoing skilled physical therapy to progress toward set goals and to continue with post-operative protocol. PLAN FOR NEXT VISIT: Continue with AROM for cervical spine with postural/scapular strengthening within lifting restrictions. Continue with gentle therex for R shoulder as tolerated. Continue manual therapy to tolerance. Consider supine for manual therapy and continued emphasis on R levator scapulae and UT. SUBJECTIVE: Pt reports that last session gave her 4 hours of relief but that symptoms returned and her neck is the same as it has been. She feels that manual therapy helped her. She reports that her R shoulder is still consistently painful and worse today without explanation. She reports no relief with injection that she received in R shoulder 01/26/25. Pain: Pain Pain Level: 8 Pain Location: Neck Description: Dull, Aching Frequency: Intermittent Additional Pain Information : Location 2 Pain Level 2: 10 Pain Location 2: Shoulder - Right, Upper Arm - Right, Elbow - Right, Forearm - Right Description 2: Aching, Sharp, Stabbing Frequency 2: Continuous Post Treatment Pain Post Treatment Pain Level: Better Post Treatment Pain Location: Neck Post Treatment Symptoms: After session pt reported that she had better ROM and less pain in her neck Post Treatment Pain Location 2: Shoulder - Right Post Treatment Pain Description 2: (after manual therapy pt reported that R UE symptoms were abolished.) OBJECTIVE MEASURES WITH LEVEL OF FUNCTION: TREATMENT: Therapeutic Exercise: 1: AROM cervical rotation 2x10 B 2: AROM cervical flexion and extension 2x10 3: AROM cervical side bends 2x10 B 4: seated scapular retraction 2x10 in front of mirror to avoid scapular elevation 5: standing R shoulder pendulums side to side and front to back 2x10 each 6: seated R shoulder flexion AAROM with rope and kristi 2x10 7: seated R shoulder abduction AAROM with rope and kristi 2x10 Skilled Intervention: Patient was educated in proper exercise technique and purpose for exercises. Skilled judgment was used in selection of appropriate interventions. Correct performance of therapeutic exercises was facilitated with verbal, visual, and tactile cuing. Patient education as noted. Manual Therapy: 1: Gentle STM and trigger point release over lower cervical muscles with focus on R levator scapulae and UT x10 minutes with pressure to pt tolerance. Skilled Intervention: Manual skills to improve joint mobility, ROM, and decrease pain. Utilized anatomy knowledge of the clinician, and assessment of patient's response to intervention. Billing Therapeutic Exercise Treatment Minutes: 35 Manual TherapyTreatment Minutes: 10 Skilled Treatment Time Minutes (timed and untimed codes): 45 Total Session Time (minutes): 45 Session Start Time : 1047 Session Stop Time : 1132 Sara Wiseman PT documented in [facility] encounterThe [facility]04[facility] Evaluation note* Diagnosis Onset Date Resolution Status Admit Date Coronary artery disease chronic A pril 2024 9:06am Diabetes mellitus chronic December 312024 9:06am Diastolic dysfunction withou t heart failure chronic January 27, 2025 9:06am Dyslipidemia chronic January 27, 2025 9:06am Dyspnea on exertion chronic January 27, 2025 9:06am Hx of CABG chronic January 27 9:06am Hypertension chronic January 27, 2025 9:06am Peripheral arterial disease chronic January 27, 2025 9:06am Coronary artery disease chronic J 2024 9:50am Diabetes mellitus chronic March 9:50am Diastolic dysfunction withou t heart failure chronic April 01, 2025 9 :50am Dyslipidemia chronic April 01 9:50am Dyspnea on exertion chronic April 01, 2025 9:50am Hx of CABG chronic April 01, 2025 9:50am Hypertension chronic April 01 9:50am Peripheral arterial disease chronic April 01, 2025 9:50am [employer] Work Phone: 1(183) 983-527204-29-2025 NoteHNO ID: [id number] Author: ROBBIE LECHUGA LPN Service: ? Author Type: LICENSED NURSE Type: Progress Notes Filed: 01/26/2025 12:42 Note Text: Prepared medication injection 4ml of lidocaine, 4ml of bupivacaine, and 2ml of triamcinolone a for provider to administer to patient per order. Once prepared medication was handed to provider to administer to patient. Robbie Lechuga [facility]PDor[facility]04-29-[facility] History of Present illness Narrative* Robbie Lechuga LPN - 01/26/2025 11:17 AM EDT Prepared medication injection 4ml of lidocaine, 4ml of bupivacaine, and 2ml of triamcinolone a for provider to administer to patient per order. Once prepared medication was handed to provider to administer to patient. Robbie Lechuga LPN * Marlee Overton MD - 01/26/2025 11:07 AM EDTAssociated Order(s): Large Joint Arthro/Inj: R shoulder joint Post-Procedure Diagnose(s): Adhesive capsulitis of right shoulder; Traumatic tear of right rotator cuff, unspecified tear extent, initial encounter Images from the original note were not included. Marlee Overton MD Orthopedic Sports Medicine Surgery [address] [place] [address] [address] [id number] [address] [place] [address] [address] [facility] , [facility] [address] [id number] NAME: Chidi Musa : 1965 DATE: 01/26/2025 Reason for Visit/Chief Complaint: Right shoulder pain History of present illness: Chidi is a 59 year old female who presents for follow-up evaluation ofacute right shoulder pain after a fall in August 2024. At the patient's last visit, I ordered an MRI as I was concerned for a traumatic full-thickness rotator cuff tear. She presents 1 week later for MRI results. She continues to have excruciating pain in her right shoulder. A normal sprain started 2 years. She cannot lift her arm at all due to her significant right shoulder pain. I have reviewed and updated the patient's past medical history, past surgical history, social history, and family history. This is located both in the patient's note and their intake form that has been scanned into the medical record for today's visit. 14 point review of systems was reviewed per signed intake sheet and is otherwise negative except asnoted above. Objective: Constitutional: Well developed, well nourished, no acute distress HEENT: mucous membranes moist, normocephalic atraumatic Psychologic: appropriate mood and affect Chest: bilateral chest elevations, symmetric Cardiovascular: pink extremities, peripheral perfusion intact Respiratory: no respiratory distress, nonlabored on room air Abdomen: soft, nontender Neurologic: orientation to person, place and time Right SHOULDER EXAM Examination of the right shoulder very limited due to patient's pain. She has exquisite tenderness palpation around her entire right arm. She has active forward elevation 20 degrees. Passive forward elevation 90 degrees with significant pain. External rotation 30 degrees. Internal rotation to hip with significant pain. Unable to assess strength due to patient's significant pain and weakness. The patient has a warm and well-perfused upper extremity with capillary refill less than 2 seconds.Sensation is intact to light touch in terminal nerve distributions. The patient has no palpable epitrochlear lymphadenopathy. Imaging: X-Rays: 3 views right shoulder personally reviewed demonstrate no acute abnormalities. Evidence of sternal wires. MRI right shoulder personally reviewed demonstrating a partial-thickness rotator cuff tear with no full-thickness component. There is capsular edema consistent with adhesive capsulitis. Procedures: Large Joint Arthro/Inj: R shoulder joint 01/26/2025 12:41 PM The procedure site was prepped in the usual sterile fashion. Site: R shoulder joint Medications: 80 mg triamcinolone acetonide 40 mg/mL Anesthetics: 4 mL lidocaine (PF) 10 mg/mL (1 %); 4 mL BUPivacaine (PF) 0.5 % (5 mg/mL) Outcome: Tolerated well, no immediate complications Post-injection instructions were reviewed with the patient and the patient voiced understanding of these instructions. Informed Consent [place] Protocol SIGN IN Sign in communication not applicable due to emergent procedure. TIME OUT Relevant labs, photos, and/or imaging studies have been reviewed. Consent documented and matches the intended procedure. Assessment/Plan 59-year-old female with right shoulder partial rotator cuff tear, possible adhesive capsulitis - I discussed treatment options with the patient. I discussed the risk of right shoulder subacromial injection including bleeding, infection, continued pain, and she elected to proceed. This was administered in office without complication. See procedure note. Postinjection instructions given to patient. It is possible she is in the inflammatory phase of adhesive capsulitis following her cervical spine surgery. I will see her back in 6 weeks to monitor her progress. All questions were answered at today's visit. Marlee Overton MD 01/26/2025 12:40 PM documented in this encounterThe [facility]04-29-2025 NoteHNO ID: [id number] Author: MARLEE OVERTON MD Service: ? Author Type: Physician Type: Progress Notes Filed: 01/26/2025 12:42 Note Text: Marlee Overton MD Orthopedic Sports Medicine [facility] [address] [facility] [address], On [facility] of [facility] [id number] [address] [place] [address] [address] [facility] , [facility] [address], [place] [address] NAME: Chidi Musa : 1965 DATE: 01/26/2025 Reason for Visit/Chief Complaint: Right shoulder pain History of present illness: Chidi is a 59 year old female who presents for follow-up evaluation of acute right shoulder pain after a fall in August 2024. At the patient's last visit, I ordered an MRI as I was concerned for a traumatic full-thickness rotator cuff tear. She presents 1 week later for MRI results. She continues to have excruciating pain in her right shoulder. A normal sprain started 2 years. She cannot lift her arm at all due to her significant right shoulder pain. I have reviewed and updated the patient's past medical history, past surgical history, social history, and family history. This is located both in the patient's note and their intake form that has been scanned into the medical record for today's visit. 14 point review of systems was reviewed per signed intake sheet and is otherwise negative except as noted above. Objective: Constitutional: Well developed, well nourished, no acute distress HEENT: mucous membranes moist, normocephalic atraumatic Psychologic: appropriate mood and affect Chest: bilateral chest elevations, symmetric Cardiovascular: pink extremities, peripheral perfusion intact Respiratory: no respiratory distress, nonlabored on room air Abdomen: soft, nontender Neurologic: orientation to person, place and time Right SHOULDER EXAM Examination of the right shoulder very limited due to patient's pain. She has exquisite tenderness palpation around her entire right arm. She has active forward elevation 20 degrees. Passive forward elevation 90 degrees with significant pain. External rotation 30 degrees. Internal rotation to hip with significant pain. Unable to assess strength due to patient's significant pain and weakness. The patient has a warm and well-perfused upper extremity with capillary refill less than 2 seconds. Sensation is intact to light touch in terminal nerve distributions. The patient has no palpable epitrochlear lymphadenopathy. Imaging: X-Rays: 3 views right shoulder personally reviewed demonstrate no acute abnormalities. Evidence of sternal wires. MRI right shoulder personally reviewed demonstrating a partial-thickness rotator cuff tear with no full-thickness component. There is capsular edema consistent with adhesive capsulitis. Procedures: Large Joint Arthro/Inj: R shoulder joint 01/26/2025 12:41 PM The procedure site was prepped in the usual sterile fashion. Site: R shoulder joint Medications: 80 mg triamcinolone acetonide 40 mg/mL Anesthetics: 4 mL lidocaine (PF) 10 mg/mL (1 %); 4 mL BUPivacaine (PF) 0.5 % (5 mg/mL) Outcome: Tolerated well, no immediate complications Post-injection instructions were reviewed with the patient and the patient voiced understanding of these instructions. Informed Consent [place] Protocol SIGN IN Sign in communication not applicable due to emergent procedure. TIME OUT Relevant labs, photos, and/or imaging studies have been reviewed. Consent documented and matches the intended procedure. Assessment/Plan 59-year-old female with right shoulder partial rotator cuff tear, possible adhesive capsulitis - I discussed treatment options with the patient. I discussed the risk of right shoulder subacromial injection including bleeding, infection, continued pain, and she elected to proceed. This was administered in office without complication. See procedure note. Postinjection instructions given to patient. It is possible she is in the inflammatory phase of adhesive capsulitis following her cervical spine surgery. I will see her back in 6 weeks to monitor her progress. All questions were answered at today's visit. Marlee Overton MD 01/26/2025 12:40 [facility]04-28-2025 NoteHNO ID: [id number] Author: SARA WISEMAN PT Service: ? Author Type: Physical Therapist Type: Progress Notes Filed: 01/25/2025 12:59 Note Text: Episode Visit Count: 2 Therapist That Will Accept/Oversee The Plan Of Care: Sara Wiseman PT Start of Care Date: 01/13/25 Onset Date: 08/30/24 Plan of Care Certification Date: 01/13/25 Next Certification Due Date: 02/24/25 Patient Identified by Name and Date of : Yes REHABILITATION AND SPORTS THERAPY PHYSICAL THERAPY TREATMENT NOTE ASSESSMENT: Chidi Musa tolerated the session with fatigue, decreased symptoms, and expected muscle soreness. She demonstrated difficulty with full range cervical flexion and extension due to cathcing. The patient will continue to benefit from ongoing skilled physical therapy to progress toward set goals. PLAN FOR NEXT VISIT: Asses response to manual therapy. Go over plan for R shoulder per Marlee Overton's reccomendations. SUBJECTIVE: Pt reports that her R shoulder is very painful. Found out through her MRI that she has RTC tear and would not like to do anything with her shoulder today. until she sees Marlee Overton. Pt is scheduled to see Kandicealvaro Yomi tomorrow to go over results. Pain: Pain Pain Level: 8 Pain Location: Neck Pain Level 2: (it's really painful) Pain Location 2: Shoulder - Right, Upper Arm - Right, Elbow - Right, Forearm - Right Post Treatment Pain Post Treatment Pain Level: Better OBJECTIVE MEASURES WITH LEVEL OF FUNCTION: TTP R side of cervical scar. TREATMENT: Therapeutic Exercise: 1: AROM cervical rotation 2x10 B 2: *AROM cervical flexion and extension 2x10 (broken into 2 movents to decrease cathching in L side of neck with doing full range.) 3: AROM cervical side bends 2x10 B 4: Seated B UT stretch 1x30 seconds (Caused radicular symptoms on RUE when stretching L) Skilled Intervention: Patient was educated in proper exercise technique and purpose for exercises. Reviewed and educated patient on additions/changes for home exercise program as above (*). Skilled judgment was used in selection of appropriate interventions. Correct performance of therapeutic exercises was facilitated with verbal and visual cuing. Manual Therapy: 1: Gentle STM over lower cervical paraspinals x 8 minutes Skilled Intervention: Manual skills to improve joint mobility, ROM, and decrease pain. Utilized anatomy knowledge of the clinician, and assessment of patient's response to intervention. Self-Retirement Management: 1: Reviewd findings of MRI with pt and utilized visual aids for anatomy explanation of findings. 2: Education on getting into pendulum position to don deoderant and wash arm pits. Skilled Intervention: Skilled judgment in the selection of proper modification for activity of daily living/home management based on clinical presentation, deficits, and needs. Reviewed patient specific diagnosis in relation to activities of daily living/home management. Activity progression based on professional judgement. Billing Therapeutic Exercise Treatment Minutes: 22 Manual TherapyTreatment Minutes: 8 Self-Care/Home Management Treatment Minutes: 13 Skilled Treatment Time Minutes (timed and untimed codes): 43 Total Session Time (minutes): 43 Session Start Time : 1102 Session Stop Time : 1145 DURGA Castrejon, [facility]04-24-2025 NoteHNO ID: [id number] Author: PHILLIP BECKER RT(Cale) Service: ? Author Type: Technologist Type: Progress Notes Filed: 01/21/2025 07:56 Note Text: Radiology Service Progress Note PATIENT NAME: Chidi Musa DATE OF SERVICE: January 21, 2025 TIME: 7:56 AM PATIENT IDENTITY VERIFICATION COMPLETED USING TWO (2) IDENTIFIERS: Name and Date of confirmed by patient verbally. FALL SCREENING: Has the patient had 2 falls in the last year or 1 fall with injury or currently using an Ambulatory Assistive Device (Walker, Cane, Wheelchair, Crutches, etc.)? No PATIENT GENDER DATA: Assigned female at . status: : No status: NO. PATIENT RELEVANT IMPLANT DATA REVIEWED: Yes PATIENT PRESENTS WITH AN IMPLANTABLE OR ATTACHED HEATER TENDER: No RADIOLOGY DEPARTMENT: MR; Exam(s) Completed: Upper MSK: Shoulder, right PERIPHERAL IV DATA: Not applicable SIGNED BY: RT Ricardo(R) January 21, 2025 7:56 [facility]04-22-2025 Telephone encounter Note* Telephone Encounter - Hina Torres MA - 01/19/2025 10:39 AM EDT Patient phones requesting refills as follows: Pending Prescriptions: Disp Refills tiZANidine (ZANAFLEX) 4 mg tablet [Pharmac*360 ta*1 Sig: Take 1 tablet by mouth every 6 hours as needed. Please review and advise. Hina Torres MA [facility]04-22-2025 Miscellaneous Notes* Telephone Encounter - Hina Torres MA - 01/19/2025 10:39 AM EDT Patient phones requesting refills as follows: Pending Prescriptions: Disp Refills tiZANidine (ZANAFLEX) 4 mg tablet [Pharmac*360 ta*1 Sig: Take 1 tablet by mouth every 6 hours as needed. Please review and advise. Hina Torres MA documented [facility]The [facility]04[facility]25 NoteHNO ID: [id number] Author: MARLEE OVERTON MD Service: ? Author Type: Physician Type: Progress Notes Filed: 01/19/2025 10:43 Note Text: Marlee Overton MD Orthopedic Sports Medicine Surgery [address] [facility], [place], On license of [facility] [address] [facility] [place] [address] [place] [address] , [facility] [address], [place] [address] NAME: Chidi Musa : 1965 DATE: 01/19/2025 Reason for Visit/Chief Complaint: Right shoulder pain History of present illness: Chidi is a 59 year old female who presents as a consultation requested by Dr. Mayank Sheehan for an opinion regarding right shoulder pain. My final recommendations will be communicated back to the requesting physician by way of shared medical record or letter via US mail. The patient states she had a fall in August when she fell off a pickup truck. She was evaluated in the emergency department and eventually had surgery by Dr. Sheehan for her cervical spine. The patient states since her fall, she has been unable to lift her right arm. She has had extreme pain in her right shoulder going down her right arm into her elbow. She cannot sleep due to her pain. Today in my office, she is in exquisite pain. She does started physical therapy postoperative after her cervical spine. She states prior to her fall, she was having no right shoulder pain. She is right-hand dominant. 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 She used to smoke but has not smoked recently. I have reviewed and updated the patient's past medical history, past surgical history, social history, and family history. This is located both in the patient's note and their intake form that has been scanned into the medical record for today's visit. 14 point review of systems was reviewed per signed intake sheet and is otherwise negative except as noted above. Objective: Constitutional: Well developed, well nourished, no acute distress HEENT: mucous membranes moist, normocephalic atraumatic Psychologic: appropriate mood and affect Chest: bilateral chest elevations, symmetric Cardiovascular: pink extremities, peripheral perfusion intact Respiratory: no respiratory distress, nonlabored on room air Abdomen: soft, nontender Neurologic: orientation to person, place and time Right SHOULDER EXAM Examination of the right shoulder very limited due to patient's pain. She has exquisite tenderness palpation around her entire right arm. She has active forward elevation 20 degrees. Passive forward elevation 90 degrees with significant pain. External rotation 30 degrees. Internal rotation to hip with significant pain. Unable to assess strength due to patient's significant pain and weakness. The patient has a warm and well-perfused upper extremity with capillary refill less than 2 seconds. Sensation is intact to light touch in terminal nerve distributions. The patient has no palpable epitrochlear lymphadenopathy. Imaging: X-Rays: 3 views right shoulder personally reviewed demonstrate no acute abnormalities. Evidence of sternal wires. 3 views left shoulder ordered, obtained, reviewed in office today demonstrate no acute abnormalities. Assessment/Plan 59-year-old female with extreme right shoulder pain and weakness with unable to lift arm after fall in August 2024. - I discussed treatment options with the patient. This time, I will order an MRI to rule out a traumatic full-thickness rotator cuff tear. Patient is having pain out of proportion I discussed treatment options with the patient. This time, I will order an MRI to rule out a traumatic full-thickness rotator cuff tear. Patient is having pain out of proportion I did place a physical therapy order to start gentle range of motion exercises prior to MRI completion. Will continue to monitor patient for Left shoulder pain, unspecified chronicity (primary encounter diagnosis) Traumatic tear of right rotator cuff, unspecified tear extent, initial encounter, patient to schedule visit as per follow up discussed. Marlee Overton MD 01/19/2025[facility]04-22-2025 History of Present illness Narrative* Marlee Overton MD - 01/19/2025 10:33 AM EDT Images from the original note were not included. Marlee Overton MD Orthopedic Sports Medicine Surgery [address] [facility], [place] [address] [address] [place] [address] [address], [facility] [address], [place] [address] NAME: Chidi Musa : 1965 DATE: 01/19/2025 Reason for Visit/Chief Complaint: Right shoulder pain History of present illness: Chidi is a 59 year old female who presents as a consultation requestedby Dr. Mayank Sheehan for an opinion regarding right shoulder pain. My final recommendations will be communicated back to the requesting physician by way of shared medical record or letter via [place] mail.The patient states she had a fall in August when she fell off a pickup truck. She was evaluated in the emergency department and eventually had surgery by Dr. Sheehan for her cervical spine. The patient states since her fall, she has been unable to lift her right arm. She has had extreme pain in herright shoulder going down her right arm into her elbow. She cannot sleep due to her pain. Today in my office, she is in exquisite pain. She does started physical therapy postoperative after her cervical spine. She states prior to her fall, she was having no right shoulder pain. She is right-hand dominant. 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 She used to smoke but has not smoked recently. I have reviewed and updated the patient's past medical history, past surgical history, social history, and family history. This is located both in the patient's note and their intake form that has been scanned into the medical record for today's visit. 14 point review of systems was reviewed per signed intake sheet and is otherwise negative except asnoted above. Objective: Constitutional: Well developed, well nourished, no acute distress HEENT: mucous membranes moist, normocephalic atraumatic Psychologic: appropriate mood and affect Chest: bilateral chest elevations, symmetric Cardiovascular: pink extremities, peripheral perfusion intact Respiratory: no respiratory distress, nonlabored on room air Abdomen: soft, nontender Neurologic: orientation to person, place and time Right SHOULDER EXAM Examination of the right shoulder very limited due to patient's pain. She has exquisite tenderness palpation around her entire right arm. She has active forward elevation 20 degrees. Passive forward elevation 90 degrees with significant pain. External rotation 30 degrees. Internal rotation to hip with significant pain. Unable to assess strength due to patient's significant pain and weakness. The patient has a warm and well-perfused upper extremity with capillary refill less than 2 seconds.Sensation is intact to light touch in terminal nerve distributions. The patient has no palpable epitrochlear lymphadenopathy. Imaging: X-Rays: 3 views right shoulder personally reviewed demonstrate no acute abnormalities. Evidence of sternal wires. 3 views left shoulder ordered, obtained, reviewed in office today demonstrate no acute abnormalities. Assessment/Plan 59-year-old female with extreme right shoulder pain and weakness with unable to lift arm after fallin August 2024. - I discussed treatment options with the patient. This time, I will order an MRI to rule out a traumatic full-thickness rotator cuff tear. Patient is having pain out of proportion I discussed treatment options with the patient. This time, I will order an MRI to rule out a traumatic full-thickness rotator cuff tear. Patient is having pain out of proportion I did place a physical therapy order to start gentle range of motion exercises prior to MRI completion. Will continue to monitor patient for Left shoulder pain, unspecified chronicity (primary encounter diagnosis) Traumatic tear of right rotator cuff, unspecified tear extent, initial encounter, patient to schedule visit as per follow up discussed. Marlee Overton MD 01/19/2025 documented [facility]The [facility]04[facility]25 NoteHNO ID: [id number] Author: SARA WISEMAN PT Service: ? Author Type: Physical Therapist Type: Progress Notes Filed: 01/13/2025 15:35 Note Text: Episode Visit Count: 1 Therapist That Will Accept/Oversee The Plan Of Care: Sara Wiseman PT Start of Care Date: 01/13/25 Onset Date: 08/30/24 Plan of Care Certification Date: 01/13/25 Next Certification Due Date: 02/24/25 Patient Identified by Name and Date of : Yes REHABILITATION AND SPORTS THERAPY PHYSICAL THERAPY EVALUATION PLAN OF CARE: Assessment: Chidi Musa presents with diagnosis of 6 weeks s/p cervical spine fusion and R shoulder pain that interferes with reaching overhead, reaching behind back, dressing, lifting, sleeping, grooming (eating, design tech, yovanny-care) . The patient presents with impairments in ADL's, independence in exercise, overall function, range of motion, strength, symptom management, and tissue tenderness. PROMIS? (Patient-Reported Outcomes Measurement Information System) scores were reviewed and identified as a rehabilitation concern. Prognosis for therapy is Fair due to: clinical presentation, multiple co- morbidities, chronic nature of impairments, limited tolerance to activity, limited support system. The patient will benefit from skilled therapy services to meet the goals established for this plan of care as noted below. Goals for Episode of Care: established 01/13/25 Patient reported outcome of physical function will increase T-score by a minimum 5 points. Boles in home exercise program. Patient will decrease R shoulder pain rating by 2 points to meet minimal clinical important difference for numeric pain rating scale. Patient will increase active ROM of R shoulder to WFL, symmetrical and pain-free to allow pt to to improve performance of ADLs. Perform reaching, lifting, dressing and grooming with decreased report of symptoms/pain in 6 weeks. Patient will decrease neck pain rating by 2 points to meet minimal clinical important difference for numeric pain rating scale. Restore pain free cervical ROM to WFL to allow for improved tolerance with design tech. Sleep throughout the night without pain/symptoms. Patient will increase strength of postural muscles to WFL to allow for improve ability to maintain proper posture, improve mechanics, and decrease pain. Patient Goals: decrease pain and be able to plant lira this spring. Walk dog Time Frame for Goals and Treatment : 02/24/25 Planned Interventions, Frequency, and Duration: Current Frequency: 2x/week Duration: 6 weeks Total Number of Visits Planned: 12 Planned Treatment Interventions: Therapeutic exercise (77053), Neuromuscular re-education (43566), Manual therapy (18382), Therapeutic activities (25797), Self-[place] management (03192), Patient/Family/Caregiver Education, Body Mechanics Training PLAN FOR NEXT VISIT: Review, correct and progress HEP to tolerance. Focus on AROM and pain control through therex for R shoulder and cervical spine. Postural strengthening should be considered as well as gentle stretching of cervical spine musculature. Patient demonstrates good understanding of plan of care and treatment. The above goals and plan of care were discussed and agreed upon by patient/family. SUBJECTIVE: Pt reports falling off of a truck in 08/2024 and getting injured. She currently has R shoulder pain that radiates down to R upper arm, R elbow and R forearm. She has been referred to orthopedics for her R shoulder. She is scheduled to see Dr. Overton SaturdayFebruary 01. She also had cervical spine fusion surgery on 11/30/2024. She wore a hard cervical collar for 6 weeks and this was discontinued . She was also released to drive starting 01/12/2025. She reports intermittent neck pain that varies in intensity. She also reports feeling a lump at the base of her neck between her shoulder blades. She reports intermittent pain in R shoulder and UE that is aggravated by movement and use of R UE. She also reports falling twice last night without explanation when her knees gave out. She denies being injured in either of these falls. Patient Goals: decrease pain and be able to plant lira this spring. 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) Prior Level of Function: Independent without limitations Relevant History Past Relevant Surgical Conditions: Spine fusion - Cervical (cervical fusion 2006 and 12/01/2024, blood clot removal from groin 09/02/2025) Spine Fusion - Cervical Comments: 2006 and recent on 11/30/2024 Right or Left Handed: Right Employment: Medically Disabled Home Environment Patient Lives With: Self/Alone Assistance Available: PRN (friends have offered to help) Intake Information: Prescription present Previous Treatment: Surgery Falls Interview: Two or more falls in the (more content not included)... [facility]04-16-2025 History of Present illness Narrative* Sara Wiseman PT - 01/13/2025 3:23 PM EDT Images from the original note were not included. 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 The patient presents with impairments in ADL's, in dependence in exercise, overall function, range of motion, strength, symptom management, and tissuetenderness. PROMIS (Patient-Reported Outcomes Measurement Information System) scores were reviewed and identified as a rehabilitation concern. Prognosis for therapy is Fair due to: clinical presentation, multiple co- morbidities, chronic nature of impairments, limited tolerance to activity, limitedsupport system. The patient will benefit from skilled therapy services to meet the goals established for this plan of care as noted below. Goals for Episode of Care: established 01/13/25 Patient reported outcome of physical function will increase T-score by a minimum 5 points. Boles in home exercise program. Patient will decrease R shoulder pain rating by 2 points to meet minimal clinical important difference for numeric pain rating scale. Patient will increase active ROM of R shoulder to WFL, symmetrical and pain-free to allow pt to to improve performance of ADLs. Perform reaching, lifting, dressing and grooming with decreased report of symptoms/pain in 6 weeks. Patient will decrease neck pain rating by 2 points to meet minimal clinical important difference for numeric pain rating scale. Restore pain free cervical ROM to WFL to allow for improved tolerance with design tech. Sleep throughout the night without pain/symptoms. Patient will increase strength of postural muscles to WFL to allow for improve ability to maintain proper posture, improve mechanics, and decrease pain. Patient Goals: decrease pain and be able to plant lira this spring. Walk dog Time Frame for Goals and Treatment : 02/24/25 Planned Interventions, Frequency, and Duration: Current Frequency: 2x/week Duration: 6 weeks Total Number of Visits Planned: 12 Planned Treatment Interventions: Therapeutic exercise (80551), Neuromuscular re- education (31245), Manual therapy (18880), Therapeutic activities (28345), Self- [place] [facility] [place] management (17755), Patient/Family/Caregiver Education, Body Mechanics Training PLAN FOR NEXT VISIT: Review, correct and progress HEP to tolerance. Focus on AROM and pain control through therex for R shoulder and cervical spine. Postural strengthening should be considered as well as gentle stretching of cervical spine musculature. Patient demonstrates good understanding of plan of care and treatment. The above goals and plan of care were discussed and agreed upon by patient/family. SUBJECTIVE: Pt reports falling off of a truck in 08/2024 and getting injured. She currently has R shoulder painthat radiates down to R upper arm, R elbow and R forearm. She has been referred to orthopedics for her R shoulder. She is scheduled to see Dr. Overton SaturdayFebruary 01. She also had cervical spine fusion surgery on 11/30/2024. She wore a hard cervical collar for 6 weeks and this was discontinued . She was also released to drive starting 01/12/2025. She reports intermittent neck pain that varies in intensity. She also reports feeling a lump at the base of her neck between her shoulder blades. She reports intermittent pain in R shoulder and UE that is aggravated by movement and use of R UE. She also reports falling twice last night without explanation when her knees gave out. She denies being injured in either of these falls. Patient Goals: decrease pain and be able to plant lira this spring. 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) Prior Level of Function: Independent without limitations Relevant History Past Relevant Surgical Conditions: Spine fusion - Cervical (cervical fusion 2006 and 12/01/2024, blood clot removal from groin 09/02/2025) Spine Fusion - Cervical Comments: 2006 and recent on 11/30/2024 Right or Left Handed: Right Employment: Medically Disabled Home Environment Patient Lives With: Self/Alone Assistance Available: PRN (friends have offered to help) Intake Information: Prescription present Previous Treatment: Surgery Falls Interview: Two or more falls in the last year, Fall without injury in the last year Falls Intervention: Instructed patient on safety and use of assistive device and awareness in regards to falls prevention. Red Flags Vertebral Fracture Red Flags: Female Vertebral Fracture Clinical Reasoning: Proceed with caution due to the above (1- 2) risk factors Cancer Clinical Reasoning: No identified risk factors. Infection Clinical Reasoning: No identified risk factors. Cervical Arterial Dysfunction Clinical Reasoning: No identified risk factors Red Flags - Cervical Cancer Clinical Reasoning: No identified risk factors. Infection Clinical Reasoning: No identified risk factors. Cervical Arterial Dysfunction Clinical Reasoning: No identified risk factors Spine History Symptoms Location at Onset: Neck, Arm Symptoms Since Onset: Improving (a little better compared to pre-op) Pain is Worse Always: On the Move (movement and use aggravate neck and R UE) Previous Episodes: Yes Previous Spine Episodes: cervical spine fusion 2006 Sleeping Position: Side lying left Sleep Affected by Pain: Pain awakens, Pain keeps from falling asleep Pain: Pain Pain Level: 8 (when it occurs) Pain Location: Neck Description: Stabbing, Sharp, Throbbing, Aching Frequency: Intermittent Additional Pain Information : Location 2 Pain Level 2: 9 (when it occurs) Pain Location 2: Shoulder - Right, Upper Arm - Right, Elbow - Right, Forearm - Right Description 2: Aching, Dull, Sharp, Stabbing Frequency 2: Intermittent Post Treatment Pain Post Treatment Pain Level: Better Post Treatment Pain Location: Neck Post Treatment Symptoms: After session pt reported that her neck felt a little better Post Treatment Pain Score 2: 07/09 Post Treatment Pain Location 2: Shoulder - Right Post Treatment Pain Description 2: (Pt reported increased pain in R shoulder after evaluation and therefore no therex provided for R UE at this time) PROMIS Scales 01/12/2025 01/06/2025 12/08/2024 Higher is Better Phys Func - T Score 24 (severe dysfunction) 24 (severe dysfunction) Phys Func - Percentile 0 0 Self-Eff Symptom - T Score 26 (Very Low) Self-Eff Symptom - Percentile 1 01/12/2025 Lower is Better Pain Interference - T Score 81 (severe) Pain Interference - Percentile 0 T-scores: mean of general population = 50. 5 points is clinically meaningfully difference Percentiles provide an indication of how the patient's score ranks in relation to the general population. Higher percentile rankings indicate better function/quality of life. 50th percentile is the average of the general population and indicates half of respondents had a worse score. OBJECTIVE MEASURES WITH LEVEL OF FUNCTION: Posture / Alignment Posture: Good Shoulder Observations R Shoulder Palpation Tenderness: Bicipital groove (slight at sub AC region) L Shoulder Palpation Tenderness: No tenderness noted Reflexes - Upper Extremity R Brachioradialis : Normal R Biceps: Normal L Brachioradialis : Normal L Biceps: Normal Spine Observations R Cervical Spine Palpation Tenderness: Upper trapezius L Cervical Spine Palpation Tenderness: No tenderness noted Sensation - Cervical Spine Cervical Spine Sensation: Impaired Cervical Spine Sensation - Impaired: (Pt reports tingling throughout R UE but no loss of sensation. L UE is WNL) Cervical Spine ROM Cervical ROM : Measurement AROM Cervical Flexion AROM (degrees) : 15 Degrees Cervical Extension AROM (degrees) : 20 Degrees Cervical Side-Bend Right AROM (degrees): 20 Degrees Cervical Side-Bend Left AROM (degrees) : 18 Degrees Cervical Rotation Right AROM (degrees) : 24 Degrees Cervical Rotation Left AROM (degrees) : 27 Degrees UE AROM R UE AROM: seated L UE AROM: seated R Shoulder Extension: 8 Degrees R Shoulder Flex: 49 Degrees R Shoulder ABduction: 25 Degrees R Shoulder Internal Rotation (Functional): unable to reach behind back R Shoulder External Rotation (Functional): unable to reach behind head L Shoulder Extension: 70 Degrees L Shoulder Flex: 126 Degrees L Shoulder ABduction: 166 Degrees L Shoulder Internal Rotation (Functional): T6 behind back L Shoulder External Rotation (Functional): T2 behind head UE PROM R UE PROM: Pt reported extreme pain with attempted PROM of R shoulder in seated position. PROM had an empty end feel without passive restriction to movement felt. Spine Joint Mobility Spine Joint Mobility : Cervical/Thoracic UE and Cervical Strength Strength Tested: Cervical Cervical Strength: Pt's post-op status and reported functional difficulties indicate that she will benefit from increased postural strength. R UE Strength: MMT deferred secondary to pt report of extreme pain in R shoulder and UE. Special Tests - Cervical Cervical Special Tests: (deferred) Special Tests - Shoulder Shoulder Special Tests: Comments Shoulder Special Tests Comments: deferred secondary to pt report of extreme pain in R shoulder and UE. Vitals BP: 132/80 Pulse: 75 Education: Education Learning Preferences: Demonstration, Explanation, Performance, Printed Materials Barriers: None Learning/educational needs: Home exercise program, Plan of Care, Posture, Body Mechanics Education Provided: Yes, see treatment interventions for education provided Education Provided To: Patient Education Mode/Type: Demonstration, Explanation/Discussion, Literature/Printed Materials, Performance Response to Education/Teach Back: States/Identifies, Return Demonstration, Requires Review/Additional Education TREATMENT: PT Treatment Interventions: Therapeutic Exercise Evaluation Therapeutic Exercise: 1: Pt was educated on the anatomy of her symptomatic areas, possible etiologies of symptoms and rationale for plan of care recommendations. Her PT order and physician instructions found in the EMR were explained. 2: Pt was educated on the proper intensity of HEP and the importance of backing off or stopping anyexercise that causes pain. She was especially urged to do gentle pain-free AROM with cervical spinebut not to stretch to end range. It was explained to patient why therapist decided to hold on R shoulder therex/HEP at this time. 3: *AROM of cervical spine in pain-free range for flexion, extension, LSB, RSB, LR and RR 2x10 each. Skilled Intervention: Patient was educated in proper exercise technique and purpose for exercises. Reviewed and educated patient on additions/changes for home exercise program as above (*). Skilled judgment was used in selection of appropriate interventions. Provided written instruction for home exercise program to facilitate proper performance and compliance. Correct performance of therapeutic exercises was facilitated with verbal, visual, and tactile cuing. Patient education as noted. Billing * Evaluation Moderate Complexity: 1 Unit Therapeutic Exercise Treatment Minutes: 16 Skilled Treatment Time Minutes (timed and untimed codes): 46 Total Session Time (minutes): 46 Session Start Time : 904 Session Stop Time : 950 Sara Wiseman PT * Sara Wiseman PT - 01/13/2025 9:55 AM EDT Program_ID:[id number] Access Code: [email or web address] URL: [email or web address] Date: 01-13-2025 Prepared By: Sara Wiseman Program Notes Exercises - Seated Cervical Flexion AROM - 3 x daily - 7 x weekly - 2 sets - 10 reps - Seated Cervical Extension AROM - 3 x daily - 7 x weekly - 2 sets - 10 reps - Seated Cervical Sidebending AROM - 3 x daily - 7 x weekly - 2 sets - 10 reps - Seated Cervical Rotation AROM - 3 x daily - 7 x weekly - 2 sets - 10 reps [facility] History of Present illness Narrative* Tanya Gamboa RT(R) - 01/12/2025 10:00 AM EDT Radiology Service Progress Note PATIENT NAME: Chidi Musa DATE OF SERVICE: January 12, 2025 TIME: 10:03 AM PATIENT IDENTITY VERIFICATION COMPLETED USING TWO (2) IDENTIFIERS: Name and Date of confirmedby patient verbally and Name and Date of confirmed by identification band. FALL SCREENING: Has the patient had 2 falls in the last year or 1 fall with injury or currently using an Ambulatory Assistive Device (Walker, Cane, Wheelchair, Crutches, etc.)? No PATIENT GENDER DATA: Assigned female at . status: : No status:NO. PATIENT RELEVANT IMPLANT DATA REVIEWED: Not Applicable PATIENT PRESENTS WITH AN IMPLANTABLE OR ATTACHED HEATER TENDER: No RADIOLOGY DEPARTMENT: General X-ray: Exam(s) Completed: Upper Extremity X- Ray(s): Shoulder, AP / TRUE AP / AXILLARY right PERIPHERAL IV DATA: Not applicable SIGNED BY: RT Joo(Cale) January 12, 2025 10:03 AM documented in this encounterThe [facility]04-[facility]25 NoteHNO ID: [id number] Author: TANYA GAMBOA RT(R) Service: Radiology Author Type: Technologist Type: Progress Notes Filed: 01/12/2025 10:03 Note Text: Radiology Service Progress Note PATIENT NAME: Chidi Musa DATE OF SERVICE: January 12, 2025 TIME: 10:03 AM PATIENT IDENTITY VERIFICATION COMPLETED USING TWO (2) IDENTIFIERS: Name and Date of confirmed by patient verbally and Name and Date of confirmed by identification band. FALL SCREENING: Has the patient had 2 falls in the last year or 1 fall with injury or currently using an Ambulatory Assistive Device (Walker, Cane, Wheelchair, Crutches, etc.)? No PATIENT GENDER DATA: Assigned female at . status: : No status: NO. PATIENT RELEVANT IMPLANT DATA REVIEWED: Not Applicable PATIENT PRESENTS WITH AN IMPLANTABLE OR ATTACHED HEATER TENDER: No RADIOLOGY DEPARTMENT: General X-ray: Exam(s) Completed: Upper Extremity X-Ray(s): Shoulder, AP / TRUE AP / AXILLARY right PERIPHERAL IV DATA: Not applicable SIGNED BY: RT Joo(R) January 12, 2025 10:03 [facility]04-15-2025 NoteHNO ID: [id number] Author: MAYANK SHEEHAN MD Service: ? Author Type: Physician Type: Progress Notes Filed: 01/12/2025 09:28 Note Text: Mayank Sheehan MD [facility] Orthopedics - Orthopaedic Spine Surgeon [address] [facility], [address], [address], [facility] [address] [id number] Phone: [phone] FAX: [phone] Spine Surgery Post-op Follow-up Service Date: 01/12/2025 Surgery Date: 11/30/2024 Surgery(ies): C4-6 PSF, C5 laminectomy Pre-operative Symptoms: Cervical spine pain with radiation to bilateral upper extremities, bilateral upper extremity weakness, gait imbalance, dexterity issues HPI: Chidi Musa is seen for 6 week post operative follow up. She is doing very well. Has some continued pain in the posterior cervical spine but this is well-controlled with pain medication. Feels that strength, numbness, dexterity, and balance have all improved. She has been compliant with cervical collar wear. Chidi reports persistent shoulder pain that is affecting her sleep. The pain is localized to the shoulder, axilla, and across the upper chest. It is exacerbated by arm elevation, external rotation, and palpation. She denies any recent falls or trauma. She also reports a sensation of a big knot at the base of her right ear, which she finds bothersome. She denies hand numbness and notes improved cervical range of motion. She has been using lidocaine patches for pain relief, but they have not been effective. She also reports that Oxycodone initially provided 2.5 hours of sleep but became ineffective after 2 nights. She inquires about the possibility of trying a muscle relaxer for pain management. ALLERGIES No Known Allergies Current Outpatient Medications Medication Sig Dispense Refill oxyCODONE IR (ROXICODONE) 5 mg immediate release tablet Take 1 tablet by mouth every 6 hours as needed for pain for up to 5 days. 20 tablet 0 acetaminophen (TYLENOL) 500 mg tablet Take 2 tablets by mouth every 6 hours. 720 tablet 0 Iiqft-3-BSR-EPA-Fish Oil (FISH OIL) 1,000 (120-180) mg cap Take 2 g by mouth once daily. Last dose 11/09 due to surgery JANUMET 50-1,000 mg per tablet Take 1 tablet by mouth two times a day with meals. ARIPiprazole (ABILIFY) 5 mg tablet Take 5 mg by mouth once daily. JARDIANCE 10 mg tablet Take 10 mg by mouth once daily. fluconazole (DIFLUCAN) 100 mg tablet Take 100 mg by mouth as needed (yeast infections). fluticasone (FLONASE) 50 mcg/actuation nasal spray Use 2 Sprays in each nostril once daily. hydrOXYzine HCl (ATARAX) 25 mg tablet Take 25 mg by mouth once daily. lidocaine (LIDODERM) 5 % Apply 1 Patch as directed every 12 hours. ARMS methocarbamol (ROBAXIN) 500 mg tablet Take 1,000 mg by mouth four times a day as needed (PAIN). aspirin 81 mg cap Take 81 mg by mouth once daily. Dr. Quintana manages. No instructions given albuterol HFA (PROVENTIL HFA, VENTOLIN HFA) 90 mcg/actuation inhaler Inhale 1-2 Puffs as instructed every 6 hours as needed for wheezing/shortness of breath. atorvastatin (LIPITOR) 40 mg tablet Take 40 mg by mouth once daily. clopidogrel (PLAVIX) 75 mg tablet Take 75 mg by mouth once daily. Dr. Quintana manages fluticasone-salmeterol (ADVAIR, WIXELA) 250-50 mcg/dose inhaler Inhale 1 Inhalation as instructed two times a day. metoprolol succinate ER (TOPROL XL) 25 mg 24 hr tablet Take 25 mg by mouth once daily. pantoprazole DR (PROTONIX) 40 mg tablet Take 40 mg by mouth every afternoon. pregabalin (LYRICA) 150 mg capsule Take 1 capsule by mouth three times a day for 30 days. 90 capsule 1 cariprazine (VRAYLAR) 1.5 mg capsule Take 1.5 mg by mouth once daily. No current facility-administered medications for this visit. Physical Examination: Vital Signs: There were no vitals taken for this visit. General Appearance: Well nourished, well developed, and no apparent distress. Incision: Clean, dry, and intact. No active drainage. No erythema. Cervical collar in place in appropriate position. Sensory: Sensation intact to light touch in C5-T1 and L1-S1 dermatomes. Motor: Upper Extremities Right Left Deltoid (C5) 5 5 Biceps (C6) 5 5 Triceps (C7) 5 5 First Assistant (C8) 5 5 Interossei (T1) 5 5 Lower Extremities Right Left Psoas (L2) 5 5 Quadriceps (L3) 5 5 Dorsiflexion (L4) 5 5 EHL (L5) 5 5 Plantarflexion (S1) 5 5 Gait: Smooth reciprocal gait. Long Tract Signs: No clonus. Ruben's present bilaterally. Reflexes: Symmetric, brisk bilateral patellar and Achilles reflexes. Right Shoulder: Severe pain with flexion, abduction, internal and external rotation of the right shoulder. Imaging AP and lateral x-rays cervical spine obtained and independently interpreted. Image demonstrates C4-6 posterior spinal fusion instrumentation in appropriate position. Stable as compared to prior imaging. Assessment 59 year old female who presents 6 weeks status-post C4-6 PSF, C5 lami (more content not included)...[facility]04-15-2025 History of Present illness Narrative* Mayank Sheehan MD - 01/12/2025 9:26 AM EDT Images from the original note were not included. Mayank Sheehan MD [facility] Orthopedics - Orthopaedic Spine Surgeon [address] [facility], [address], [place] [address] Phone: [phone] FAX: [phone] Spine Surgery Post-op Follow-up Service Date: 01/12/2025 Surgery Date: 11/30/2024 Surgery(ies): C4-6 PSF, C5 laminectomy Pre-operative Symptoms: Cervical spine pain with radiation to bilateral upper extremities, bilateral upper extremity weakness, gait imbalance, dexterity issues HPI: Chidi Musa is seen for 6 week post operative follow up. She is doing very well. Has somecontinued pain in the posterior cervical spine but this is well-controlled with pain medication. Feels that strength, numbness, dexterity, and balance have all improved. She has been compliant with cervical collar wear. Chidi reports persistent shoulder pain that is affecting her sleep. The pain is localized to the shoulder, axilla, and across the upper chest. It is exacerbated by arm elevation,external rotation, and palpation. She denies any recent falls or trauma. She also reports a sensation of a big knot at the base of her right ear, which she finds bothersome. She denies hand numbness and notes improved cervical range of motion. She has been using lidocaine patches for pain relief, but they have not been effective. She also reports that Oxycodone initiallyprovided 2.5 hours of sleep but became ineffective after 2 nights. She inquires about the possibility of trying a muscle relaxer for pain management. ALLERGIES No Known Allergies Current Outpatient Medications Medication Sig Dispense Refill oxyCODONE IR (ROXICODONE) 5 mg immediate release tablet Take 1 tablet by mouth every 6 hours as needed for pain for up to 5 days. 20 tablet 0 acetaminophen (TYLENOL) 500 mg tablet Take 2 tablets by mouth every 6 hours. 720 tablet 0 Dxvjf-5-ZXU-EPA-Fish Oil (FISH OIL) 1,000 (120-180) mg cap Take 2 g by mouth once daily. Last dose 11/09 due to surgery JANUMET 50-1,000 mg per tablet Take 1 tablet by mouth two times a day with meals. ARIPiprazole (ABILIFY) 5 mg tablet Take 5 mg by mouth once daily. JARDIANCE 10 mg tablet Take 10 mg by mouth once daily. fluconazole (DIFLUCAN) 100 mg tablet Take 100 mg by mouth as needed (yeast infections). fluticasone (FLONASE) 50 mcg/actuation nasal spray Use 2 Sprays in each nostril once daily. hydrOXYzine HCl (ATARAX) 25 mg tablet Take 25 mg by mouth once daily. lidocaine (LIDODERM) 5 % Apply 1 Patch as directed every 12 hours. ARMS methocarbamol (ROBAXIN) 500 mg tablet Take 1,000 mg by mouth four times a day as needed (PAIN). aspirin 81 mg cap Take 81 mg by mouth once daily. Dr. Quintana manages. No instructions given albuterol HFA (PROVENTIL HFA, VENTOLIN HFA) 90 mcg/actuation inhaler Inhale 1-2 Puffs as instructedevery 6 hours as needed for wheezing/shortness of breath. atorvastatin (LIPITOR) 40 mg tablet Take 40 mg by mouth once daily. clopidogrel (PLAVIX) 75 mg tablet Take 75 mg by mouth once daily. Dr. Quintana manages fluticasone-salmeterol (ADVAIR, WIXELA) 250-50 mcg/dose inhaler Inhale 1 Inhalation as instructed two times a day. metoprolol succinate ER (TOPROL XL) 25 mg 24 hr tablet Take 25 mg by mouth once daily. pantoprazole DR (PROTONIX) 40 mg tablet Take 40 mg by mouth every afternoon. pregabalin (LYRICA) 150 mg capsule Take 1 capsule by mouth three times a day for 30 days. 90 capsule 1 cariprazine (VRAYLAR) 1.5 mg capsule Take 1.5 mg by mouth once daily. No current facility-administered medications for this visit. Physical Examination: Vital Signs: There were no vitals taken for this visit. General Appearance: Well nourished, well developed, and no apparent distress. Incision: Clean, dry, and intact. No active drainage. No erythema. Cervical collar in place in appropriate position. Sensory: Sensation intact to light touch in C5-T1 and L1-S1 dermatomes. Motor: Upper Extremities Right Left Deltoid (C5) 5 5 Biceps (C6) 5 5 Triceps (C7) 5 5 First Assistant (C8) 5 5 Interossei (T1) 5 5 Lower Extremities Right Left Psoas (L2) 5 5 Quadriceps (L3) 5 5 Dorsiflexion (L4) 5 5 EHL (L5) 5 5 Plantarflexion (S1) 5 5 Gait: Smooth reciprocal gait. Long Tract Signs: No clonus. Ruben's present bilaterally. Reflexes: Symmetric, brisk bilateral patellar and Achilles reflexes. Right Shoulder: Severe pain with flexion, abduction, internal and external rotation of the right shoulder. Imaging AP and lateral x-rays cervical spine obtained and independently interpreted. Image demonstrates C4-6 posterior spinal fusion instrumentation in appropriate position. Stable as compared to prior imaging. Assessment 59 year old female who presents 6 weeks status-post C4-6 PSF, C5 laminectomy: recovering well. Plan May discontinue use of hard cervical collar. Referral to physical therapy provided. Referral to Dr. Overton for evaluation of the right shoulder. X-rays of the right shoulder ordered. Continue with restrictions of bending, twisting, and lifting. Follow-up in 6 weeks for repeat x-ray evaluation. Advised to call the office if symptoms worsen or new symptoms develop. Patient expressed understanding and is in agreement with plan. Mayank Sheehan MD Orthopaedic Spine Surgery This note was generated all or in part using [employer] voice recognition software and [employer] dictation software. Please excuse any minor errors in spelling, grammar, or punctuation. * Hina Torres MA - 01/12/2025 9:05 AM EDT 59 y/o female presents to office for a routine post op appointment. She is wearing the cervical collar as prescribed. Xrays obtained. The pain is radiating down the right arm. She doesn't believe shehas had a muscle relaxer documented [facility]The [facility]04-[facility] NoteHNO ID: [id number] Author: HINA TORRES MA Service: ? Author Type: Public Transportation Inspector Type: Progress Notes Filed: 01/12/2025 09:28 Note Text: 59 y/o female presents to office for a routine post op appointment. She is wearing the cervical collar as prescribed. Xrays obtained. The pain is radiating down the right arm. She doesn't believe she has had a muscle relaxerM[facility] Tele[facility] encounter Note* Telephone Encounter - Kaleb Schultz LPN - 01/06/2025 1:35 PM EDT Patient called with c/o having increased pain and spasms to Rt arm. Patient has very little relief with Tramadol 50 mg. Pain on average is an 8, but today patient rates pain a 10. She has been using a heating pad, and OTC cream for pain as well. Patient wanting to know if she can increase the Tramadol or try a different pain medication. Kaleb Schultz LPN [facility]04-09-2025 Miscellaneous Notes* Telephone Encounter - Kaleb Schultz LPN - 01/06/2025 1:35 PM EDT Patient called with c/o having increased pain and spasms to Rt arm. Patient has very little relief with Tramadol 50 mg. Pain on average is an 8, but today patient rates pain a 10. She has been using a heating pad, and OTC cream for pain as well. Patient wanting to know if she can increase the Tramadol or try a different pain medication. Kaleb Schultz LPN documented in this encounterThe [facility]04-[facility] Telephone encounter Note * Telephone Encounter - Isaiah Quintana - 01/06/2025 1:29 PM EDT Spoke to patient I requested her to have x-rays done before seeing Dr Sheehan on 01-12-25, she will doso [facility]04-09-20[facility] Miscellaneous Notes* Telephone Encounter - Isaiah Quintana - 01/06/2025 1:29 PM EDT Spoke to patient I requested her to have x-rays done before seeing Dr Sheehan on 01-12-25, she will doso documented in this encounterThe [facility]04-[facility] Evaluation + Plan note Future Scheduled Tests Laboratory* A1C Hemoglobin 12/30/24 * Complete Blood Count 12/30/24 * Lipid Profile 12/30/24 * Complete Metabolic Panel 12/30/24 [facility] 03-18-2025 NoteHNO ID: [id number] Author: MAYANK SHEEHAN MD Service: ? Author Type: Physician Type: Progress Notes Filed: 12/15/2024 11:19 Note Text: Mayank Sheehan MD [facility] General Orthopedics - Orthopaedic Spine Surgeon [address] [facility], [address], [address], [address], [place] [address] Phone: [phone] ([phone] FAX: [phone] Spine Surgery Post-op Follow-up Service Date: 12/15/2024 Surgery Date: 11/30/2024 Surgery(ies): C4-6 PSF, C5 laminectomy Pre-operative Symptoms: Cervical spine pain with radiation to bilateral upper extremities, bilateral upper extremity weakness, gait imbalance, dexterity issues HPI: Chidi Musa is seen for 2 week post operative follow up. She is doing very well. Has some continued pain in the posterior cervical spine but this is well-controlled with pain medication. Radiating pain in the right extremity has significantly proved. Feels that strength, numbness, dexterity, and balance have all improved. She has been compliant with cervical collar wear. Denies new issues. ALLERGIES No Known Allergies Current Outpatient Medications Medication Sig Dispense Refill traMADol (ULTRAM) 50 mg tablet Take 1 tablet by mouth every 6 hours as needed for pain for up to 7 days. 28 tablet 0 pregabalin (LYRICA) 150 mg capsule Take 1 capsule by mouth three times a day for 30 days. 90 capsule 1 acetaminophen (TYLENOL) 500 mg tablet Take 2 tablets by mouth every 6 hours. 720 tablet 0 docusate sodium (COLACE) 100 mg capsule Take 1 capsule by mouth two times a day for 14 days. 28 capsule 0 Twmkz-6-LWJ-EPA-Fish Oil (FISH OIL) 1,000 (120-180) mg cap Take 2 g by mouth once daily. Last dose 11/09 due to surgery JANUMET 50-1,000 mg per tablet Take 1 tablet by mouth two times a day with meals. ARIPiprazole (ABILIFY) 5 mg tablet Take 5 mg by mouth once daily. JARDIANCE 10 mg tablet Take 10 mg by mouth once daily. fluconazole (DIFLUCAN) 100 mg tablet Take 100 mg by mouth as needed (yeast infections). fluticasone (FLONASE) 50 mcg/actuation nasal spray Use 2 Sprays in each nostril once daily. hydrOXYzine HCl (ATARAX) 25 mg tablet Take 25 mg by mouth once daily. lidocaine (LIDODERM) 5 % Apply 1 Patch as directed every 12 hours. ARMS methocarbamol (ROBAXIN) 500 mg tablet Take 1,000 mg by mouth four times a day as needed (PAIN). aspirin 81 mg cap Take 81 mg by mouth once daily. Dr. Quintana manages. No instructions given albuterol HFA (PROVENTIL HFA, VENTOLIN HFA) 90 mcg/actuation inhaler Inhale 1-2 Puffs as instructed every 6 hours as needed for wheezing/shortness of breath. atorvastatin (LIPITOR) 40 mg tablet Take 40 mg by mouth once daily. clopidogrel (PLAVIX) 75 mg tablet Take 75 mg by mouth once daily. Dr. Quintana manages fluticasone-salmeterol (ADVAIR, WIXELA) 250-50 mcg/dose inhaler Inhale 1 Inhalation as instructed two times a day. metoprolol succinate ER (TOPROL XL) 25 mg 24 hr tablet Take 25 mg by mouth once daily. pantoprazole DR (PROTONIX) 40 mg tablet Take 40 mg by mouth every afternoon. cariprazine (VRAYLAR) 1.5 mg capsule Take 1.5 mg by mouth once daily. No current facility-administered medications for this visit. Physical Examination: Vital Signs: Ht 157.5 cm (5' 2) Wt 75.3 kg (166 lb) BMI 30.36 kg/m? General Appearance: Well nourished, well developed, and no apparent distress. Incision: Clean, dry, and intact. No active drainage. No erythema. Cervical collar in place in appropriate position. Sensory: Sensation intact to light touch in C5-T1 and L1-S1 dermatomes. Motor: Upper Extremities Right Left Deltoid (C5) 5 5 Biceps (C6) 5 5 Triceps (C7) 5 5 First Assistant (C8) 5 5 Interossei (T1) 5 5 Lower Extremities Right Left Psoas (L2) 5 5 Quadriceps (L3) 5 5 Dorsiflexion (L4) 5 5 EHL (L5) 5 5 Plantarflexion (S1) 5 5 Gait: Smooth reciprocal gait. Long Tract Signs: No clonus. Ruben's present bilaterally. Reflexes: Symmetric, brisk bilateral patellar and Achilles reflexes. Imaging AP and lateral x-rays cervical spine obtained and independently interpreted. Image demonstrates C4-6 posterior spinal fusion instrumentation in appropriate position. Assessment 59 year old female who presents 2 weeks status-post C4-6 PSF, C5 laminectomy: recovering well. Plan Hard cervical collar may be removed when seated or lying down. Collar should be worn when upright and ambulatory. Continue with pain medication as prescribed. Continue with restrictions of bending, twisting, and lifting. Follow-up in 4 weeks for repeat x-ray evaluation. Advised to call the office if symptoms worsen or new symptoms develop. Patient expressed understanding and is in agreement with plan. Mayank Sheehan MD Orthopaedic Spine Surgery This note was generated all or in part using Tribe voice recognition software. Please excuse any minor errors in spelling, grammar, or punctuation.[facility]03-18-2025 History of Present illness Narrative* Mayank Sheehan MD - 12/15/2024 11:17 AM EDT Images from the original note were not included. Mayank Sheehan MD [facility] - Orthopaedic Spine Surgeon [address], [address], [place] [address] [address], [address] [id number] Phone: [phone] ([phone] FAX: [phone] Spine Surgery Post-op Follow-up Service Date: 12/15/2024 Surgery Date: 11/30/2024 Surgery(ies): C4-6 PSF, C5 laminectomy Pre-operative Symptoms: Cervical spine pain with radiation to bilateral upper extremities, bilateral upper extremity weakness, gait imbalance, dexterity issues HPI: Chidi Musa is seen for 2 week post operative follow up. She is doing very well. Has somecontinued pain in the posterior cervical spine but this is well-controlled with pain medication. Radiating pain in the right extremity has significantly proved. Feels that strength, numbness, dexterity, and balance have all improved. She has been compliant with cervical collar wear. Denies new issues. ALLERGIES No Known Allergies Current Outpatient Medications Medication Sig Dispense Refill traMADol (ULTRAM) 50 mg tablet Take 1 tablet by mouth every 6 hours as needed for pain for up to 7 days. 28 tablet 0 pregabalin (LYRICA) 150 mg capsule Take 1 capsule by mouth three times a day for 30 days. 90 capsule 1 acetaminophen (TYLENOL) 500 mg tablet Take 2 tablets by mouth every 6 hours. 720 tablet 0 docusate sodium (COLACE) 100 mg capsule Take 1 capsule by mouth two times a day for 14 days. 28 capsule 0 Izctk-2-MQU-EPA-Fish Oil (FISH OIL) 1,000 (120-180) mg cap Take 2 g by mouth once daily. Last dose 11/09 due to surgery JANUMET 50-1,000 mg per tablet Take 1 tablet by mouth two times a day with meals. ARIPiprazole (ABILIFY) 5 mg tablet Take 5 mg by mouth once daily. JARDIANCE 10 mg tablet Take 10 mg by mouth once daily. fluconazole (DIFLUCAN) 100 mg tablet Take 100 mg by mouth as needed (yeast infections). fluticasone (FLONASE) 50 mcg/actuation nasal spray Use 2 Sprays in each nostril once daily. hydrOXYzine HCl (ATARAX) 25 mg tablet Take 25 mg by mouth once daily. lidocaine (LIDODERM) 5 % Apply 1 Patch as directed every 12 hours. ARMS methocarbamol (ROBAXIN) 500 mg tablet Take 1,000 mg by mouth four times a day as needed (PAIN). aspirin 81 mg cap Take 81 mg by mouth once daily. Dr. Quintana manages. No instructions given albuterol HFA (PROVENTIL HFA, VENTOLIN HFA) 90 mcg/actuation inhaler Inhale 1-2 Puffs as instructedevery 6 hours as needed for wheezing/shortness of breath. atorvastatin (LIPITOR) 40 mg tablet Take 40 mg by mouth once daily. clopidogrel (PLAVIX) 75 mg tablet Take 75 mg by mouth once daily. Dr. Quintana manages fluticasone-salmeterol (ADVAIR, WIXELA) 250-50 mcg/dose inhaler Inhale 1 Inhalation as instructed two times a day. metoprolol succinate ER (TOPROL XL) 25 mg 24 hr tablet Take 25 mg by mouth once daily. pantoprazole DR (PROTONIX) 40 mg tablet Take 40 mg by mouth every afternoon. cariprazine (VRAYLAR) 1.5 mg capsule Take 1.5 mg by mouth once daily. No current facility-administered medications for this visit. Physical Examination: Vital Signs: Ht 157.5 cm (5' 2) Wt 75.3 kg (166 lb) BMI 30.36 kg/m General Appearance: Well nourished, well developed, and no apparent distress. Incision: Clean, dry, and intact. No active drainage. No erythema. Cervical collar in place in appropriate position. Sensory: Sensation intact to light touch in C5-T1 and L1-S1 dermatomes. Motor: Upper Extremities Right Left Deltoid (C5) 5 5 Biceps (C6) 5 5 Triceps (C7) 5 5 First Assistant (C8) 5 5 Interossei (T1) 5 5 Lower Extremities Right Left Psoas (L2) 5 5 Quadriceps (L3) 5 5 Dorsiflexion (L4) 5 5 EHL (L5) 5 5 Plantarflexion (S1) 5 5 Gait: Smooth reciprocal gait. Long Tract Signs: No clonus. Ruben's present bilaterally. Reflexes: Symmetric, brisk bilateral patellar and Achilles reflexes. Imaging AP and lateral x-rays cervical spine obtained and independently interpreted. Image demonstrates C4-6 posterior spinal fusion instrumentation in appropriate position. Assessment 59 year old female who presents 2 weeks status-post C4-6 PSF, C5 laminectomy: recovering well. Plan Hard cervical collar may be removed when seated or lying down. Collar should be worn when upright and ambulatory. Continue with pain medication as prescribed. Continue with restrictions of bending, twisting, and lifting. Follow-up in 4 weeks for repeat x-ray evaluation. Advised to call the office if symptoms worsen or new symptoms develop. Patient expressed understanding and is in agreement with plan. Mayank Sheehan MD Orthopaedic Spine Surgery This note was generated all or in part using Tribe voice recognition software. Please excuse any minor errors in spelling, grammar, or punctuation. * Hina Torres MA - 12/15/2024 10:44 AM EDT 59 y/o female presents to office for routine post op. Sx 11/30/24 cervical fusion. She reports overall she is feeling much better. Still having occasional pain. [facility] NoteHNO ID: [id number] Author: HINA TORRES MA Service: ? Author Type: Public Transportation Inspector Type: Progress Notes Filed: 12/15/2024 11:19 Note Text: 59 y/o female presents to office for routine post op. Sx 11/30/24 cervical fusion. She reports overall she is feeling much better. Still having occasional pain. [facility]03-18-2025 History of Present illness Narrative* Ute Moreau RT(R) - 12/15/2024 10:00 AM EDTSummary: xray Radiology Service Progress Note PATIENT NAME: Chidi Musa DATE OF SERVICE: December 15, 2024 TIME: 10:16 AM PATIENT IDENTITY VERIFICATION COMPLETED USING TWO (2) IDENTIFIERS: Name and Date of confirmedby patient verbally. FALL SCREENING: Has the patient had 2 falls in the last year or 1 fall with injury or currently using an Ambulatory Assistive Device (Walker, Cane, Wheelchair, Crutches, etc.)? No PATIENT GENDER DATA: Assigned female at . status: : No status:N/A PATIENT RELEVANT IMPLANT DATA REVIEWED: Not Applicable PATIENT PRESENTS WITH AN IMPLANTABLE OR ATTACHED HEATER TENDER: No RADIOLOGY DEPARTMENT: General X-ray: Exam(s) Completed: Spine X-Ray(s): Cervical AP / LAT PERIPHERAL IV DATA: Not applicable SIGNED BY: ARIANNA Choi) December 15, 2024 10:16 AM documented in this encounterThe [facility]25 NoteHNO ID: [id number] Author: UTE MOREAU RT (R) Service: Radiology Author Type: Technologist Type: Progress Notes Filed: 12/15/2024 10:17 Note Text: Summary: xray Radiology Service Progress Note PATIENT NAME: Chidi Musa DATE OF SERVICE: December 15, 2024 TIME: 10:16 AM PATIENT IDENTITY VERIFICATION COMPLETED USING TWO (2) IDENTIFIERS: Name and Date of confirmed by patient verbally. FALL SCREENING: Has the patient had 2 falls in the last year or 1 fall with injury or currently using an Ambulatory Assistive Device (Walker, Cane, Wheelchair, Crutches, etc.)? No PATIENT GENDER DATA: Assigned female at . status: : No status: N/A PATIENT RELEVANT IMPLANT DATA REVIEWED: Not Applicable PATIENT PRESENTS WITH AN IMPLANTABLE OR ATTACHED HEATER TENDER: No RADIOLOGY DEPARTMENT: General X-ray: Exam(s) Completed: Spine X-Ray(s): Cervical AP / LAT PERIPHERAL IV DATA: Not applicable SIGNED BY: RT Jimbo(R) December 15, 2024 10:16 [facility]03-12-2025 Telephone encounter Note* Telephone Encounter - Isaiah Quintana - 12/09/2024 2:24 PM EDT Called patient to inform her to have x-rays done before seeing Dr Sheehan on 12-15-24, She will do so. [facility]03-12-2025 Miscellaneous Notes* Telephone Encounter - Isaiah Quintana - 12/09/2024 2:24 PM EDT Called patient to inform her to have x-rays done before seeing Dr Sheehan on 12-15-24, She will do so. documented in this [facility]The [facility] Telephone encounter Note * Telephone Encounter - Belkis Jones RN - 12/07/2024 1:43 PM EDT Patient phones requesting refills as follows: Requested Prescriptions Pending Prescriptions Disp Refills pregabalin (LYRICA) 150 mg capsule 90 capsule 1 Sig: Take 1 capsule by mouth three times a day for 30 days. Last UDS: NO UDS ON FILE No results found for: SUMM, PREGAB No results found for: UQNOTE, OPIATEPNMGT, DRUGSCRPAIN Urine Panel: No results found for: UQCANN, UQBNZL, IHV0QOB, UQAMPH, UQMAMP, UQBUPRE, UQNORBUP, UQMTHD, UQEDDP, UQTRAM, UQDTRM, UQFNTL, UQNFTL, UQCODE, UQMORP, UQDCDN, UQHCOD, UQOXYC, UQHMOR, UQOXYM, UQCREA, UQPH, UQSPGR, UQOXID, UQSPQ No results found for: SUMM No results found for: SUMMAR None on file Please review and advise. Belkis Jones RN [facility]03-10-2025 Miscellaneous Notes* Telephone Encounter - Belkis Jones RN - 12/07/2024 1:43 PM EDT Patient phones requesting refills as follows: Requested Prescriptions Pending Prescriptions Disp Refills pregabalin (LYRICA) 150 mg capsule 90 capsule 1 Sig: Take 1 capsule by mouth three times a day for 30 days. Last UDS: NO UDS ON FILE No results found for: SUMM, PREGAB No results found for: UQNOTE, OPIATEPNMGT, DRUGSCRPAIN Urine Panel: No results found for: UQCANN, UQBNZL, SDS4RFO, UQAMPH, UQMAMP, UQBUPRE, UQNORBUP, UQMTHD, UQEDDP, UQTRAM, UQDTRM, UQFNTL, UQNFTL, UQCODE, UQMORP, UQDCDN, UQHCOD, UQOXYC, UQHMOR, UQOXYM, UQCREA, UQPH, UQSPGR, UQOXID, UQSPQ No results found for: SUMM No results found for: SUMMAR None on file Please review and advise. Belkis Jones RN documented in this encounterThe [facility]03-[facility]-2025 NoteHNO ID: [id number] Author: KYUNG ROMANO APRN.CNP Service: Orthopaedic Surgery Author Type: Nurse Practitioner Type: Progress Notes Filed: 12/02/2024 09:20 Note Text: Orthopaedic Surgery Inpatient Progress Note Assessment Chidi Musa is a 59 year old female who is POD #2 status-post C4-6 PSF with C5 laminectomy . Plan Pain control. Neuro checks Q4H. Activity: No cervical spine ROM. No lifting >15 lbs. Immobilization: Hard cervical collar at all times. Dressing(s): Aquacel - maintain until POD #5. Drain(s): 10 [place] Hemovac - maintain until output <30 mL/shift. 10 out overnight. Ok to remove PT/OT: Evaluation AND recommendations recommending home and cleared DVT PPx: SCDs. No chemoprophylaxis. Antibiotics: Ancef 2 g Q8H and Vancomycin 1 g Q12 H for 24 hours. Rockwell: None. Imaging: X-rays of C-spine on completed Anticipated Length of Stay/Disposition: plan for home today Subjective No acute events overnight. Pain well controlled. No fevers, chills, chest pain, or shortness of breath. No new complaints. Prior b/l arm weakness and paraesthesia have resolved. Overall happy with results. Physical Examination Vitals BP 132/59 Pulse 66 Temp 36.8 ?C (98.3 ?F) (Oral) Resp 16 Ht 157.5 cm (5' 2) Wt 75.4 kg (166 lb 3.6 oz) SpO2 97% BMI 30.40 kg/m? General Alert and oriented. No acute distress. Cooperative with interview. Spine Inspection: Dressing clean, dry, and intact. Cervical collar in place in good position. Hemovac drain in place with good seal and sanguinous output in cannister. Sensation: Sensation intact to light touch in C5-T1 and L1-S1 dermatomes. Motor: Upper Extremities Right Left Deltoid (C5) 5 5 Biceps (C6) 5 5 Triceps (C7) 5 5 First Assistant (C8) 5 5 Interossei (T1) 5 5 Lower Extremities Right Left Psoas (L2) 5 5 Quadriceps (L3) 5 5 Dorsiflexion (L4) 5 5 EHL (L5) 5 5 Plantarflexion (S1) 5 5 Special Tests: positive Gray's , clonus absent. Labs Recent Labs 12/02/24 0601 12/01/24 0522 NA 138 139 K 4.4 4.3 CHLOR 108* 105 CO2 23 28 BUN 12 12 CREAT 0.52 0.68 GLUC 157* 132* ANION 7 6 CA 9.4 9.1 WBC 12.43* 11.80* HB 15.2 14.3 HCT 45.2 43.8 PLT 198 202 Imaging Xr cervical spine 2V AP/LAT: Interval posterior decompression with construct C4-C6. The hardware is intact. Normal alignment. Kyung Romano SUZE Orthopaedic Spine [facility]03-05-2025 NoteHNO ID: [id number] Author: GARO MERRILL RN Service: Care Management Author Type: Registered Nurse Type: Care Mgt Progress Note Filed: 12/02/2024 07:11 Note Text: CARE MANAGEMENT PROGRESS NOTE SERVICE DATE: 12/02/2024 SERVICE TIME: 7:10 AM LOS: 2 days Needs Prior to Discharge: Other: See Comment (hemovac removal, medical clearance) Chart reviewed. Patient is AANDOX4 from home alone admitted for Elective Spinal Surgery. Ortho/Spine, PT/OT, internal med Following. Patient reports they're functionally independent with all ADLs and IADLs including driving at baseline. Reports none as DME use. Current with PCP on chart and has Medical Coverage. Patient reports no concerns for safety or ability to provided basic necessities. Patient has no Advance Directives on file, per [place] law, LNOK is puja Potter @ [phone]. Patient was educated on who their LNOK would be should the need arise and declined to fill out HCPOA paperwork at this time. POD #2 status-post C4-6 PSF with C5 laminectomy w/ Dr Sheehan. PT/OT evals completed and cleared for home going. Hemovac with documented output of -5cc needs removed prior to d/c. Plan: Pending hemovac removal, Home with self care, no equipment needs. Therapy Clearance Obtained. Family to transport. CM will continue to follow for d/c planning and needs. Please reach out if plan changes. SIGNATURE: Garo Merrill RN PATIENT NAME: Chidi Musa DATE: December 02, 2024 TIME: 7:10 AM [phone] NoteHNO ID: [id number] Author: GARO MERRILL RN Service: Care Management Author Type: Registered Nurse Type: Care Mgt Initial Assessment Filed: 12/01/2024 11:53 Note Text: CARE MANAGEMENT: ASSESSMENT AND DISCHARGE PLAN SERVICE DATE: December 01, 2024 SERVICE TIME: 11:51 AM PCP: Josephine Walter CNP, CNP Primary Contact: Extended Emergency Contact Information Primary Emergency Contact: KateTariq Address: [address] [place] [address] Mobile Relation: Son Admission Status: Inpatient Insurance Provider: MEDICARE A AND B Discharge Planning requested by: Per Department Practice Potential Transition Plans Home Advance Directives Current Advance Directive: None Donor Technician Attempted to Assist with AD Completion: Yes Action: Education Provided Current Living Arrangements and Support Lives with: Alone Type of Residence: Private Residence (House) Does the patient have to climb stairs at home?: stairs outside the home (3 stairs outside, none inside) Support: Children How do you manage to accomplish the following: Independent: Ambulation, Bathe/Shower, Meals/Meal Prep, Going to the bathroom, Dress, Medication Management, Transportation to appointments/community Current Services/Equipment Current Post-Acute Service(s): None Discharge Planning Patient Goal(s): Be able to go home, General wellness [place] of Choice Explained: Are you interested in bedside delivery of your medications? No Discharge Planning Participant(s): Patient Patient/Family Comments: Caregiver Assessment: Caregiver is ready, willing and able to meet the patient's needs as recommended by the inter-professional team: No Caregiver needed Transport at Discharge: Transportation Arrangements: Car Needs Prior to Discharge: Needs Prior to Discharge: Other: See Comment (hemovac removal, OT clearance) Post-Acute Discharge Plan: Intimate Partner Violence We have begun to talk to patients about safe and healthy relationships because it can have a large impact on your health. Do you feel safe around your partner or ex-partner?: Yes Food Insecurity Within the past 12 months, you worried that your food would run out before you got the money to buy more.: Never true Within the past 12 months, the food you bought just didn't last and you didn't have money to get more.: Never true Transportation Needs In the past 12 months, has lack of transportation kept you from medical appointments or from getting medications?: No In the past 12 months, has lack of transportation kept you from meetings, work, or from getting things needed for daily living?: No Housing Stability In the last 12 months, was there a time when you were not able to pay the mortgage or rent on time?: No At any time in the past 12 months, were you homeless or living in a mcc (including now)?: No Utilities In the past 12 months has the [employer], gas, oil, or water [employer] threatened to shut off services in your home?: No Social Information Financial Resources: Unemployed Chart reviewed. Patient is AANDOX4 from home alone admitted for Elective Spinal Surgery. Ortho/Spine, PT/OT, internal med Following. Patient reports they're functionally independent with all ADLs and IADLs including driving at baseline. Reports none as DME use. Current with PCP on chart and has Medical Coverage. Patient reports no concerns for safety or ability to provided basic necessities. Patient has no Advance Directives on file, per [place] law, LNOK is puja Potter @ [phone]. Patient was educated on who their LNOK would be should the need arise and declined to fill out HCPOA paperwork at this time. POD #1 status-post C4-6 PSF with C5 laminectomy w/ Dr Sheehan. PT cleared for home, OT eval pending. Hemovac with documented output of -20cc needs removed prior to d/c. Plan: Home with self care, no equipment needs. Pending OT clearance and hemovac removal. Family to transport. CM will continue to follow for d/c planning and needs. Please reach out if plan changes. SIGNATURE: Garo Merrill RN PATIENT NAME: Chidi Musa DATE: December 01, 2024 TIME: 11:50 AM [phone]03-[facility]25 NoteHNO ID: [id number] Author: MAYANK SHEEHAN MD Service: Orthopaedic Surgery Author Type: Physician Type: Progress Notes Filed: 12/01/2024 11:56 Note Text: Orthopaedic Spine Surgery Attending Addendum I personally saw and evaluated the patient. I agree with the history, physical examination, assessment, and plan as documented in the below note with the following additions/changes: No acute events overnight. Pain poorly controlled, switching to Tramadol. Pre-operative numbness, paresthesias, and weakness in arms improved. Tolerating cervical collar. Drain output 20 mL, maintain. PT recommending home. X-rays pending. Mayank Sheehan MD Orthopaedic Spine Surgery Orthopaedic Surgery Inpatient Progress Note Assessment Chidi Musa is a 59 year old female who is POD #1 status-post C4-6 PSF with C5 laminectomy . Plan Pain control. Neuro checks Q4H. Activity: No cervical spine ROM. No lifting >15 lbs. Immobilization: Hard cervical collar at all times. Dressing(s): Aquacel - maintain until POD #5. Drain(s): 10 [place] Hemovac - maintain until output <30 mL/shift. 20 out overnight. PT/OT: Evaluation AND recommendations. DVT PPx: SCDs. No chemoprophylaxis. Antibiotics: Ancef 2 g Q8H and Vancomycin 1 g Q12 H for 24 hours. Rockwell: None. Imaging: X-rays of C-spine on POD #2. Anticipated Length of Stay/Disposition: 3-4 days/Ho Subjective No acute events overnight. Pain well controlled. No fevers, chills, chest pain, or shortness of breath. No new complaints. Prior b/l arm weakness and paraesthesia have resolved. Overall happy with results. Physical Examination Vitals BP 165/69 Pulse 72 Temp 36.7 ?C (98.1 ?F) (Oral) Resp 18 Ht 157.5 cm (5' 2) Wt 75.4 kg (166 lb 3.6 oz) SpO2 97% BMI 30.40 kg/m? General Alert and oriented. No acute distress. Cooperative with interview. Spine Inspection: Dressing clean, dry, and intact. Cervical collar in place in good position. Hemovac drain in place with good seal and sanguinous output in cannister. Sensation: Sensation intact to light touch in C5-T1 and L1-S1 dermatomes. Motor: Upper Extremities Right Left Deltoid (C5) 5 5 Biceps (C6) 5 5 Triceps (C7) 5 5 First Assistant (C8) 5 5 Interossei (T1) 5 5 Lower Extremities Right Left Psoas (L2) 5 5 Quadriceps (L3) 5 5 Dorsiflexion (L4) 5 5 EHL (L5) 5 5 Plantarflexion (S1) 5 5 Special Tests: positive Gray's , clonus absent. Labs Recent Labs 12/01/24 0522 NA 139 K 4.3 CHLOR 105 CO2 28 BUN 12 CREAT 0.68 GLUC 132* ANION 6 CA 9.1 WBC 11.80* HB 14.3 HCT 43.8 PLT 202 Imaging None updated Kyung Romano APRN [facility]opaedic Sp[facility] SurgeryAsh[facility]03-[facility]-2025 NoteHNO ID: [id number] Author: ALLI DOMINGUEZ DO Service: Cardiovascular Surgery Author Type: Anesthesiologist Type: Anesthesia Procedure Notes Filed: 12/09/2024 09:52 Note Text: ANESTHESIOLOGY PROCEDURE NOTE A-Line General Information Procedure Start Time/Medication Administration: 11/30/2024 2:38 PM Procedure End Time: 11/30/2024 2:40 PM Consent Obtained: Yes Indications: continuous blood pressure monitoring Staffing Anesthesiologist: Alli Dominguez DO Performed by: anesthesiologist Preparation Sterility Preparation: sterile drape used during line insertion, skin prep agent completely dried prior to procedure Site Prep: Chlorhexidine Procedure Details Catheter Size: 20 G Catheter Length: 5.25 in Guidewire Used: Yes Laterality: right Site: radial artery Ultrasound Guided: No Line Secured: Tegaderm and tape SIGNATURE: Alli Dominguez DO PATIENT NAME: Chidi uMsa DATE: November 30, 2024 TIME: 3:29 PM [facility]N: [id number] NoteHNO ID: [id number] Author: BASIM WALTER APRN.CRNA Service: Cardiovascular Surgery Author Type: Nurse Lubricating Engineer Type: Anesthesia Procedure Notes Filed: 11/30/2024 15:26 Note Text: ANESTHESIOLOGY PROCEDURE NOTE PIV General Information Procedure Start Time/Medication Administration: 11/30/2024 2:40 PM Procedure End Time: 11/30/2024 2:40 PM Patient Location: OR Staffing RESEARCH INTERN: Basim Walter APRN.RESEARCH INTERN Performed by: DAVID Procedure Details Needle Size/Type: 18 gauge angiocath Orientation: Right Location: Forearm Imaging Guidance Used: No SIGNATURE: Basim Walter APRN.CRNA PATIENT NAME: Chidi Musa DATE: November 30, 2024 TIME: 3:26 PM CSN: [id number]25 NoteHNO ID: [id number] Author: BASIM WALTER APRN.CRNA Service: Cardiovascular Surgery Author Type: Nurse Lubricating Engineer Type: Anesthesia Procedure Notes Filed: 11/30/2024 15:25 Note Text: ANESTHESIOLOGY PROCEDURE NOTE Airway General Information Procedure Start Time/Medication Administration: 11/30/2024 2:38 PM Procedure End Time: 11/30/2024 2:38 PM Patient location during procedure: OR Staffing RESEARCH INTERN: Basim Walter APRN.RESEARCH INTERN Performed by: RESEARCH INTERN Indications and Patient Condition Indications for airway management: anesthesia Preoxygenated: yes anesthesia circuit Method: sleep Difficult Mask: No Final Airway Details Final airway type: endotracheal airway Final Endotracheal Airway: ETT Cuffed: yes Successful intubation technique: video laryngoscopy Devices used: Lanyrd ETT size (mm): 7.0 Measurement (cm): 21 Placement verified by: capnometry Cormack-Lehane Classification: grade I - full view of glottis Number of attempts at approach: 1 Airway not difficult SIGNATURE: Basim Walter APRN.CRNA PATIENT NAME: Chidi Musa DATE: November 30, 2024 TIME: 3:25 PM CSN: [id number] NoteHNO ID: [id number] Author: LINCOLN MORGAN RN Service: Nursing Author Type: Registered Nurse Type: Progress Notes Filed: 11/27/2024 15:06 Note Text: MEDICATION INSTRUCTIONS PRIOR TO SURGERY Please read below carefully for your personalized instructions. Medications: If you are on blood thinner or anticoagulants including aspirin, please confirm with your surgical team on when to stop these medications. Unless instructed differently by your surgical team, stay on all of your medications until your surgery. Pre-Surgery Med Instructions Medication Instructions Qxqdy-0-XVT-EPA-Fish Oil (FISH OIL) 1,000 (120-180) mg cap Follow surgeon's instructions JANUMET 50-1,000 mg per tablet DO NOT TAKE MORNING OF SURGERY ARIPiprazole (ABILIFY) 5 mg tablet Take morning of surgery with a sip of water, no other fluids cariprazine (VRAYLAR) 1.5 mg capsule Take morning of surgery with a sip of water, no other fluids JARDIANCE 10 mg tablet HOLD 3 DAYS PRIOR TO PROCEDURE fluconazole (DIFLUCAN) 100 mg tablet DO NOT TAKE MORNING OF SURGERY fluticasone (FLONASE) 50 mcg/actuation nasal spray PRN if needed hydrOXYzine HCl (ATARAX) 25 mg tablet Take morning of surgery with a sip of water, no other fluids lidocaine (LIDODERM) 5 % DO NOT TAKE MORNING OF SURGERY methocarbamol (ROBAXIN) 500 mg tablet PRN if needed pregabalin (LYRICA) 150 mg capsule Take morning of surgery with a sip of water, no other fluids aspirin 81 mg cap Follow Prescribers Instructions albuterol HFA (PROVENTIL HFA, VENTOLIN HFA) 90 mcg/actuation inhaler PRN if needed atorvastatin (LIPITOR) 40 mg tablet Take morning of surgery with a sip of water, no other fluids clopidogrel (PLAVIX) 75 mg tablet Follow Prescribers Instructions fluticasone-salmeterol (ADVAIR, WIXELA) 250-50 mcg/dose inhaler Use Day of Surgery metoprolol succinate ER (TOPROL XL) 25 mg 24 hr tablet Take morning of surgery with a sip of water, no other fluids pantoprazole DR (PROTONIX) 40 mg tablet Take morning of surgery with a sip of water, no other fluids traMADol (ULTRAM) 50 mg tablet PRN if needed If you have any medication changes between receiving these instructions and your surgery date, please provide this updated information with the nurse who calls you the week day prior to your surgical procedure so we can update your list and provide you with updated instructions for the morning of your procedure. PRE-PROCEDURE INSTRUCTIONS TO PREPARE FOR YOUR PROCEDURE: Your arrival time for your procedure is 1300. Do NOT eat any solid foods after MIDNIGHT the night prior to your procedure - this includes gum or mints. You can drink clear liquids* up until 1100, which is 2 hours before your arrival time. *Clear liquids = water, carbohydrate drink (sports drink that is clear or yellow in color), Ensure Pre-Surgery (given by LORENZO or your DrLoi), fruit juice without pulp (apple/cranberry), clear tea, black coffee (no cream). NO CARBONATED BEVERAGES AND NO ALCOHOL. Shower the morning of the procedure, put on clean clothes, and have clean sheets for your bed to help prevent infection after your procedure. Leave all valuables such as jewelry including rings, piercings, wallets, and purses at home. Wear comfortable, loose-fitting clothing. If you wear glasses or contacts, please bring a case. SPECIAL INSTRUCTIONS: If instructed, bring your first voided urine specimen with you. If you were provided skin preparation to use prior to your procedure, complete this as directed. If a bowel preparation has been ordered by your physician, it is very important to follow the bowel prep instructions or your procedure may need to be rescheduled. If you use crutches or a walker, bring them with you. If you have a home CPAP/BIPAP machine, bring it with you. If you were instructed to complete a fleets enema or bowel prep, complete as directed. Bring copy of Living Will/Power of Bottoming Room Supervisor. Do not smoke or chew. If you use tobacco, quit or at least cut down before surgery. Do not smoke or chew after midnight the day before your surgery. This effects bleeding, infection, healing, and so much more. Do not take any Diet or Herbal Supplements 2 weeks prior to your surgery date. Please notify your physician if there is any change in your physical condition such as a cold, cough, fever, sore throat, or skin irritation near the surgical site. Visitors under the age of 14 are restricted in the Surgery Center. UPON ARRIVAL: Access to [facility] ([facility] is located on [address] [place] parking is available for your convenience from 5am-5pm- there is a $5.00 charge for this service. Take the elevators directly inside the entrance to the 1st Floor Surgery Lobby. Sign in at the podium located to the left when you get off the elevators. A payment may be expected at the time of service. One visitor may come back to the preope (more content not included)...[facility]02-26-[facility] Telephone encounter Note* Telephone Encounter - Kaleb Schultz LPN - 11/25/2024 9:07 AM EST Left 2nd message for Dr. Walter's nurse requesting update on clearance form. Asked for nurse to return call. Kaleb Schultz LPN [facility]02-26-2025 Miscellaneous Notes* Telephone Encounter - Kaleb Schultz LPN - 11/25/2024 9:07 AM EST Left 2nd message for Dr. Walter's nurse requesting update on clearance form. Asked for nurse to return call. Kaleb Schultz LPN documented in this encounter[facility]02-[facility]25 NoteHNO ID: [id number] Author: STEPHY CARNES PA-C Service: ? Author Type: Physician Manufacturing Helper Type: Progress Notes Filed: 11/25/2024 07:19 Note Text: Summary: Vascular and cardiac clearances Vascular clearance from HEIDI Quintana - 11/17/2024 Ok to hold Plavix x 5 days prior to surgery. Continue with ASAif possible as she is <3 months s/p iliac stent placement but OK to hold x 5 days if necessary. Scan on 11/23/2024 6:25 AM by Kaleb Schultz LPN: Vascular clearance for 11/30/24 Neuro surgery w/Dr. Sheehan Cardiac clearance 11/04/2024 OK to DC blood thinner/anticoagulant type medications 7 days before surgery Scan on 11/23/2024 6:10 AM by Schultz, Kaleb, DRIVE WORKER: Cardiac clearance for 11/30/24 [facility] Telephone encounter Note* Telephone Encounter - Kaleb Schultz LPN - 11/24/2024 10:21 AM EST Vascular surgeon gave instructions for patient to hold Plavix x 5 days, he would prefer for patientto continue ASA 81 mg if possible, but he gave ok for patient to also hold for [address] Sheehan prefers. Per Dr. Sheehan, instructed patient to hold both Plavix and ASA for 5 days prior to surgery. He will have patient restart ASA on POD # 2. Patient voiced understanding. Kaleb Schultz LPN [facility]02-25-2025 Miscellaneous Notes* Telephone Encounter - Kaleb Schultz LPN - 11/24/2024 10:21 AM EST Vascular surgeon gave instructions for patient to hold Plavix x 5 days, he would prefer for patientto continue ASA 81 mg if possible, but he gave ok for patient to also hold for [address] Sheehan prefers. Per Dr. Sheehan, instructed patient to hold both Plavix and ASA for 5 days prior to surgery. He will have patient restart ASA on POD # 2. Patient voiced understanding. Kaleb Schultz LPN documented in this encounterThe [facility]02-19-2025 NoteHNO ID: [id number] Author: NEELAM TAN APRN.SINK MAKER Service: ? Author Type: Nurse Practitioner Type: Progress Notes Filed: 11/18/2024 06:51 Note Text: Summary: update Surgery moved to 11/30 due to not having clearances.[facility]02-18-20[facility] Evaluation note* Diagnosis Onset Date Resolution Status Admit Date Aortoiliac occlusive disease chronic November 17, 2024 1:53pm Coronary artery disease chronic A pril 2024 9:06am Diabetes mellitus chronic December 312024 9:06am Diastolic dysfunction withou t heart failure chronic January 27, 2025 9:06am Dyslipidemia chronic January 27, 2025 9:06am Dyspnea on exertion chronic January 27, 2025 9:06am Hx of CABG chronic January 27 9:06am Hypertension chronic January 27, 2025 9:06am Peripheral arterial disease chronic January 27, 2025 9:06am [facility] Work Phone: 1(229) 769-415802-17-2025 NoteHNO ID: [id number] Author: NEELAM TAN APRN.CNP Service: ? Author Type: Nurse Practitioner Type: Progress Notes Filed: 11/16/2024 09:17 Note Text: Summary: clearances Surgeon did request cardiac and vascular clearances- waiting on receipt.[facility]02-17-2025 NoteHNO ID: [id number] Author: NEELAM TAN APRN.CNP Service: ? Author Type: Nurse Practitioner Type: Progress Notes Filed: 11/16/2024 09:06 Note Text: Summary: cardiac studies/notes ECHO 05/2024: mild LVH, EF 65, stage I DD, LAE, neg PFO/ASD, mild MAC, triv TRScan on 11/09/2024 6:45 PM by Provider, External, PA-C: Echo Stress test 05/2024: EF 75%, neg ischemia or infarctScan on 11/09/2024 6:44 PM by Provider, External, PA-C: Stress Test PFTs 2019: NML FEV1 of 2.52 L. Cardiology OV notes from 04/2024: new patient, CAB 2019 with RODRIGUES LAD, SVG R PDA and OM. She had c/o dyspnea and chest pain, thus the cardiac testing above was ordered. EKG 04/2024: SR, LAE Scan on 11/09/2024 6:49 PM by Provider, External, PA-C: EKG [facility]02-14-2025 Telephone encounter Note* Telephone Encounter - Celine Hamilton MA - 11/13/2024 5:52 AM EST [employer] No-Show Documentation Chidi Musa no showed for an appointment on 11/11/2024 with N/Jer Day APRN. at [facility]. The patient was was scheduled for a follow up appointment. I called and spoke with the patient regarding missed appointment. No The patient stated the reason that they missed the appointment was because Could not make contact with patient . Resources discussed/offered to patient: No No show determined to be fault of patient: N/A This is the patients first no show in the last 12 months. Patient was rescheduled for 11/20/2024. Letter mailed regular mail AND certified : No Is this the Third or Fourth No Show? No Celine Hamilton MA November 13, 2024 5:53 AM [facility]02-14-2025 Miscellaneous Notes* Telephone Encounter - Celine Hamilton MA - 11/13/2024 5:52 AM EST [employer] No-Show Documentation Chidi L Eva no showed for an appointment on 11/11/2024 with N/Jer Day APRN. at [facility]. The patient was was scheduled for a follow up appointment. I called and spoke with the patient regarding missed appointment. No The patient stated the reason that they missed the appointment was because Could not make contact with patient . Resources discussed/offered to patient: No No show determined to be fault of patient: N/A This is the patients first no show in the last 12 months. Patient was rescheduled for 11/20/2024. Letter mailed regular mail AND certified : No Is this the Third or Fourth No Show? No Celine Hamilton MA November 13, 2024 5:53 AM documented in this encounterThe [facility]02[facility] Telephone encounter Note * Telephone Encounter - Patience Schwarz - 11/12/2024 7:51 AM EST [employer] No-Show Documentation Chidi L Eva no showed for an appointment on 11/11/2024 with Carmine Day APRN. at 4:00 pm. The patient was was scheduled for a consult. I called and spoke with the patient regarding missed appointment. Yes, patient given [facility] contact number [phone] to reschedule. The patient stated the reason that they missed the appointment was because forgot about appointment. Resources discussed/offered to patient: No No show determined to be fault of patient: Yes This is the patients first no show in the last 12 months. Patient was rescheduled for na. Letter mailed regular mail . Yes Is this the Third or Fourth No Show? No Patience Schwarz November 12, 2024 7:51 AM [facility]02-13-2025 Miscellaneous Notes* Telephone Encounter - Patience Schwarz - 11/12/2024 7:51 AM EST [employer] No-Show Documentation Chidi Paige esposito showed for an appointment on 11/11/2024 with Carmine Day APRN. at 4:00 pm. The patient was was scheduled for a consult. I called and spoke with the patient regarding missed appointment. Yes, patient given [facility] contact number [phone] to reschedule. The patient stated the reason that they missed the appointment was because forgot about appointment. Resources discussed/offered to patient: No No show determined to be fault of patient: Yes This is the patients first no show in the last 12 months. Patient was rescheduled for na. Letter mailed regular mail . Yes Is this the Third or Fourth No Show? No Patience Schwarz November 12, 2024 7:51 AM documented in this encounterThe [facility]02[facility]25 NoteHNO ID: [id number] Author: NEELAM TAN APRN.SINK MAKER Service: ? Author Type: Nurse Practitioner Type: Progress Notes Filed: 11/10/2024 09:03 Note Text: PACC Consult SERVICE DATE: 11/09/2024 SERVICE TIME: 10:21 AM PRIMARY CARE PHYSICIAN: Josephine A Jose Angel, SINK MAKER, SINK MAKER REASON FOR VISIT: Chidi Musa is a 59 year old female who is scheduled for C4-6 PSF, C5 lami at the request of Dr. SHEEHAN for consultation. My final recommendation will be communicated back to the requesting physician by way of shared medical record or letter. The patient has the following: ACTIVE PROBLEM LIST Cervical Spondylosis With Myelopathy Subjective CHIEF COMPLAINT: NECK PAIN 59yo female, exsmoker, occ MJN. 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 Jorge follows Coronary artery disease 1 stent placed 09/08/19 Dr. Maldonado follows, started managaing care in 12/2023 Depression PCP manages Diabetes ([facility]) PCP manages Generalized anxiety disorder PCP manages GERD (gastroesophageal reflux disease) controlled with meds PCP follows Heart attack (HCC) 05/2020 CABG X3-[place] Hypertension PCP manages/ controlled on meds Mixed hyperlipidemia controlled with meds PCP follows Neck pain Dr. Sheehan follows- reported falling off pickup truck bed 08/30/24 and has had problems since. muscle spasms down both arms/shoulders AVE (obstructive sleep apnea) sleep study completed 2023 in [facility]. due to anxiety/depression noncompliant with cpap. unable to tolerate mask Other emphysema ([facility]) Maria T Seay N.P. pulmonology [place]. 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 [address] Quintana follows-aspirin/plavix PAST SURGICAL HISTORY Procedure Laterality Date ADDTL NECK SPINE FUSION 06/30/2007 [place] ARTHROTOMY W/MENISCUS REPAIR KNEE Left 06/18/2007 CABG (3) VEIN GRAFTS AND ARTERIAL GRAFT(S) 05/2020 [facility] Rendon PAST SURGICAL HISTORY OF Left 09/02/2024 stent placement Iliac artery PAST SURGICAL HISTORY OF 09/08/2019 1 stent placed in heart REMOVAL GALLBLADDER 04/11/1986 [facility] TOTAL ABDOM HYSTERECTOMY 08/30/2005 at [facility] History reviewed. No pertinent family history. SOCIAL HISTORY: Social History Tobacco Use Smoking status: Former Current packs/day: 1.00 Average packs/day: 1 pack/day for 38.0 years (38.0 ttl pk-yrs) Types: Cigarettes Smokeless tobacco: Never Vaping Use Vaping status: Former Substance Use Topics Alcohol use: Yes Drug use: Not Currently Types: Marijuana Comment: occasionally Prior to Admission medications as of 11/09/24 0912 Medication Sig Last Dose Taking Vkfhp-4-MIV-EPA-Fish Oil (FISH OIL) 1,000 (120-180) mg cap Take 2 g by mouth once daily. Last dose 11/09 due to surgery Yes JANUMET 50-1,000 mg per tablet Take 1 tablet by mouth two times a day with meals. Yes ARIPiprazole (ABILIFY) 5 mg tablet Take 5 mg by mouth once daily. Yes cariprazine (VRAYLAR) 1.5 mg capsule Take 1.5 mg by mouth once daily. Yes JARDIANCE 10 mg tablet Take 10 mg by mouth once daily. Yes fluconazole (DIFLUCAN) 100 mg tablet Take 100 mg by mouth as needed (yeast infections). Yes fluticasone (FLONASE) 50 mcg/actuation nasal spray Use 2 Sprays in each nostril once daily. Yes hydrOXYzine HCl (ATARAX) 25 mg tablet Take 25 mg by mouth once daily. Yes lidocaine (LIDODERM) 5 % Apply 1 Patch as directed every 12 hours. ARMS Yes methocarbamol (ROBAXIN) 500 mg tablet Take 1,000 mg by mouth four times a day as needed (PAIN). Yes pregabalin (LYRICA) 150 mg capsule Take 1 capsule by mouth three times a day for 30 days. Yes aspirin 81 mg cap Take 81 mg by mouth once daily. Dr. Quintana manages. No instructions given Yes albuterol HFA (PROVENTIL HFA, VENTOLIN HFA) 90 mcg/actuation inhaler Inhale 1-2 Puffs as instructed every 6 hours as needed for wheezing/shortness of breath. Yes atorvastatin (LIPITOR) 40 mg tablet Take 40 mg by mouth once daily. Yes clopidogrel (PLAVIX) 75 mg tablet Take 75 mg by mouth once daily. Dr. Quintana manages Yes fluticasone-salmeterol (ADVAIR, WIXELA) 250-50 mcg/dose inhaler Inhale 1 Inhalation as instructed two times a day. Yes metoprolol succinate ER (TOPROL XL) 25 mg 24 hr tablet Take 25 mg by mouth once daily. Yes pantoprazole DR (PROTONIX) 40 mg tablet Take 40 mg by mouth every afternoon. Yes traMADol (ULTRAM) 50 mg tablet Take 50 mg by mouth every 6 hours as needed for pain. Yes benzonatate (TESSALON PERLE) 100 mg capsule Take 100 mg by mouth. PACC 11/04/24 no longer taking jsh Patient not taking: Reported on (more content not included)...[facility]02-10-[facility] History of Present illness Narrative* Manuela Gamboa APRN.SINK MAKER - 11/09/2024 10:21 AM EST PACC Consult SERVICE DATE: 11/09/2024 SERVICE TIME: 10:21 AM PRIMARY CARE PHYSICIAN: Josephine Walter, EUGENIE, SINK MAKER REASON FOR VISIT: Chidi Musa is a 59 year old female who is scheduled for C4-6 PSF, C5 lami at the request of Dr. SHEEHAN for consultation. My final recommendation will be communicated back to the requesting physician by way of shared medical record or letter. The patient has the following: ACTIVE PROBLEM LIST Cervical Spondylosis With Myelopathy Subjective CHIEF COMPLAINT: NECK PAIN 59yo female, exsmoker, occ MJN. PMH: +AVE noncompliant, HTN, HLD, CAD s/p PCI stent [place] s/p CABG x3 05/2020 on DAPT (Joel), PAD s/p iliac artery stent/thrombectomy 08/2024 ([facility]ariano), DM2 (Jardiance), GERD, previous ACDF with residual R vocal cord paralysis and dysphagia, CALVIN, depression PAST MEDICAL HISTORY Diagnosis Date Back pain [facility] Pain management Dr. Jorge follows Coronary artery disease 1 stent placed 09/08/19 Dr. Maldonado follows, started managaing care in 12/2023 Depression PCP manages Diabetes ([facility]) PCP manages Generalized anxiety disorder PCP manages GERD (gastroesophageal reflux disease) controlled with meds PCP follows Heart attack ([facility]) 05/2020 CABG X3-[facility] Hypertension PCP manages/ controlled on meds Mixed hyperlipidemia controlled with meds PCP follows Neck pain Dr. Sheehan follows- reported falling off pickup truck bed 08/30/24 and has had problems since. musclespasms down both arms/shoulders AVE (obstructive sleep apnea) sleep study completed 2023 in [facility]. due to anxiety/depression noncompliant with cpap. unable to tolerate mask Other emphysema (HCC) Maria T Seay N.P. pulmonology [place]. 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 [address] Quintana follows-aspirin/plavix PAST SURGICAL HISTORY Procedure Laterality Date ADDTL NECK SPINE FUSION 06/30/2007 [place] ARTHROTOMY W/MENISCUS REPAIR KNEE Left 06/18/2007 CABG (3) VEIN GRAFTS & ARTERIAL GRAFT(S) 05/2020 [facility] Rendon PAST SURGICAL HISTORY OF Left 09/02/2024 stent placement Iliac artery PAST SURGICAL HISTORY OF 09/08/2019 1 stent placed in heart REMOVAL GALLBLADDER 04/11/1986 [facility] TOTAL ABDOM HYSTERECTOMY 08/30/2005 at [facility] History reviewed. No pertinent family history. SOCIAL HISTORY: Social History Tobacco Use Smoking status: Former Current packs/day: 1.00 Average packs/day: 1 pack/day for 38.0 years (38.0 ttl pk-yrs) Types: Cigarettes Smokeless tobacco: Never Vaping Use Vaping status: Former Substance Use Topics Alcohol use: Yes Drug use: Not Currently Types: Marijuana Comment: occasionally Prior to Admission medications as of 11/09/24 0912 Medication Sig Last Dose Taking Gviax-4-[employer]S-EPA-Fish Oil (FISH OIL) 1,000 (120-180) mg cap Take 2 g by mouth once daily. Last dose 11/09 due to surgery Yes JANUMET 50-1,000 mg per tablet Take 1 tablet by mouth two times a day with meals. Yes ARIPiprazole (ABILIFY) 5 mg tablet Take 5 mg by mouth once daily. Yes cariprazine (VRAYLAR) 1.5 mg capsule Take 1.5 mg by mouth once daily. Yes JARDIANCE 10 mg tablet Take 10 mg by mouth once daily. Yes fluconazole (DIFLUCAN) 100 mg tablet Take 100 mg by mouth as needed (yeast infections). Yes fluticasone (FLONASE) 50 mcg/actuation nasal spray Use 2 Sprays in each nostril once daily. Yes hydrOXYzine HCl (ATARAX) 25 mg tablet Take 25 mg by mouth once daily. Yes lidocaine (LIDODERM) 5 % Apply 1 Patch as directed every 12 hours. ARMS Yes methocarbamol (ROBAXIN) 500 mg tablet Take 1,000 mg by mouth four times a day as needed (PAIN). Yes pregabalin (LYRICA) 150 mg capsule Take 1 capsule by mouth three times a day for 30 days. Yes aspirin 81 mg cap Take 81 mg by mouth once daily. Dr. Quintana manages. No instructions given Yes albuterol HFA (PROVENTIL HFA, VENTOLIN HFA) 90 mcg/actuation inhaler Inhale 1-2 Puffs as instructedevery 6 hours as needed for wheezing/shortness of breath. Yes atorvastatin (LIPITOR) 40 mg tablet Take 40 mg by mouth once daily. Yes clopidogrel (PLAVIX) 75 mg tablet Take 75 mg by mouth once daily. Dr. Quintana manages Yes fluticasone-salmeterol (ADVAIR, WIXELA) 250-50 mcg/dose inhaler Inhale 1 Inhalation as instructed two times a day. Yes metoprolol succinate ER (TOPROL XL) 25 mg 24 hr tablet Take 25 mg by mouth once daily. Yes pantoprazole DR (PROTONIX) 40 mg tablet Take 40 mg by mouth every afternoon. Yes traMADol (ULTRAM) 50 mg tablet Take 50 mg by mouth every 6 hours as needed for pain. Yes benzonatate (TESSALON PERLE) 100 mg capsule Take 100 mg by mouth. [facility] 11/04/24 no longer taking [facility] Patient not taking: Reported on 11/09/2024 cyclobenzaprine (FLEXERIL) 10 mg tablet [facility] 11/04/24 no longer taking [facility] doxycycline hyclate (VIBRAMYCIN) 100 mg capsule Take 1 capsule by mouth every 12 hours. [facility] 11/04/24no longer taking [facility] Patient not taking: Reported on 11/09/2024 losartan (COZAAR) 25 mg tablet Take 25 mg by mouth once daily. Patient not taking: Reported on 11/09/2024 metoprolol tartrate, short acting, (LOPRESSOR) 50 mg tablet Take 50 mg by mouth. [facility] 11/04/24 not taking js Patient not taking: Reported on 11/09/2024 montelukast (SINGULAIR) 10 mg tablet Take 10 mg by mouth. [facility] 11/04/24 no longer taking [facility] omeprazole (PRILOSEC) 40 mg capsule [facility] 11/04/24 no longer taking [facility] predniSONE (DELTASONE) 20 mg tablet [facility] 11/04/24 NOT TAKING JS Patient not taking: Reported on 11/09/2024 ticagrelor (BRILINTA) 90 mg tablet Take 90 mg by mouth once daily. Pt reports not taking [facility] 11/09 traZODone (DESYREL) 100 mg tablet Take 100 mg by mouth daily at bedtime. [facility] 11/04/24 NO LONGER TAKING [facility] Patient not taking: Reported on 11/09/2024 escitalopram oxalate (LEXAPRO) 10 mg tablet Take 10 mg by mouth every afternoon. Patient not taking: Reported on 11/09/2024 gabapentin (NEURONTIN) 300 mg capsule Take 600 mg by mouth three times a day. [facility] 11/04/24 NO LONGERTAKING [facility] Patient not taking: Reported on 11/09/2024 SITagliptin-metFORMIN (JANUMET XR) 50-1,000 mg TM24 Take 2 tablets by mouth once daily. [facility] 11/04/24duplicate entry d/t insurance [facility] tiotropium (SPIRIVA) 18 mcg inhalation capsule Inhale 18 mcg as instructed once daily. [facility] 11/04/24 no longer taking [facility] Patient not taking: Reported on 11/09/2024 No medication comments found. ALLERGIES No Known Allergies REVIEW OF SYSTEMS: PAIN ASSESSMENT: Pain Pain Level: 10 Pain Location: Neck Description: Burning, Stabbing, Stabbing/Not Incision Duration Units: Months Frequency: Continuous Intervention/Comfort measure: Medication General: No weight loss, malaise or fevers. Neuro: Postive for Impaired Sensorium Respiratory: Positive for Current cough HX smoker, COPD Cardiovascular: Positive for: CAD; Crozer: Dr. 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 : Denies, No LMP recorded. Patient has had a hysterectomy. Endocrine: Diabetes Mellitus on oral agent, Hypothyroidism Hematology: Chronic anti-coagulation / platelet meds (Aspirin, Plavix) Oncology: No history of CA metastasis, chemo within 30 days, or radiotherapy within 90 days. Has not lost 10% of body wt in 6 months. No history of oncological symptoms or problems. Psych: Anxiety, Depression Musculoskeletal: neck pain Skin: Negative for lesions, rash and itching. Objective PHYSICAL EXAM: VITALS: BP 136/76 Pulse 85 Resp 18 Ht 5' 2 (1.58m) Wt 162 lb (73.5kg) SpO2 96% BMI 29.62 kg/(m^2). General: Alert and oriented, No acute distress, Healthy appearance Skin: Normal color, no rash, no lesions. Diagnostic tests reviewed for today's visit: Lab Value Units Date High Low HB 15.6 g/dL 11/04/2024 15.5 11.5 HCT 48.0 % 11/04/2024 46.0 36.0 WBC 8.17 k/uL 11/04/2024 11.00 3.70 PLT 212 k/uL 11/04/2024 400 150 NA 139 mmol/L 11/04/2024 144 136 K 4.1 mmol/L 11/04/2024 5.1 3.7 GLUC 210 mg/dL 11/04/2024 99 74 BUN 9 mg/dL 11/04/2024 21 7 CREAT 0.58 mg/dL 11/04/2024 0.96 0.58 PTSEC 10.6 sec 11/04/2024 13.0 9.7 INR 1.0 no uni* 11/04/2024 1.3 0.9 APTT No results within date range. ALT No results within date range. AST No results within date range. TBILI No results within date range. TSH No results within date range. Lab Value Units Date High Low HCGQT No results within date range. UHCG No results within date range. HCG, BODY* No results within date range. Lab Value Units Date High Low ABORHD No results within date range. ABSCREEN No results within date range. No results found for: HBA1C PENDING Assessment/Plan ASSESSMENT/PLAN: 1. Preop testing - ICD9: V72.84, ICD10: Z01.818 (primary diagnosis) I met Chidi today in [facility] for her upcoming cervical spine surgery with Dr. Sheehan. She has significant neck pain that radiates into her shoulders and arms (R>L) and has jumping pain that goes all over her right arm. She notices weakness in her arm and hand and is unable to carry items or do her hair. She has an appt with her vascular surgeon 11/27 but will call regarding the aspirin and plavix instructions. She has also been having increased pain in her left groin which she will discuss. Her appt with PCP is 11/26; she will call to see if she can get in sooner - HEMOGLOBIN A1C - NT PRO BNP 2. Postprocedural hypoinsulinemia - ICD9: 251.3, ICD10: E89.1 Monitor accordingly - HEMOGLOBIN A1C 3. Unspecified abnormalities of breathing - ICD9: 786.00, ICD10: R06.9 COPD/emphysema per patient but PFT normal in 2019 and no repeat testing Quit smoking recently - NT PRO BNP 4. Cervical myelopathy (HCC) - ICD9: 721.1, ICD10: G95.9 - Neck pain that radiates to into her shoulders and arms (R>L) and has jumping pain that goes all over her arm - weakness in her arm and hand and is unable to carry items - follow with Dr. Sheehan - pending surgery 11/30/24 5. Spinal stenosis, cervical region - ICD9: 723.0, ICD10: M48.02 - Neck pain that radiates to into her shoulders and arms (R>L) and has jumping pain that goes all over her arm - weakness in her arm and hand and is unable to carry items - follow with Dr. Sheehan - pending surgery 11/30/24 6. Type 2 diabetes mellitus without complication, without long-term current use of insulin (HCC) - ICD9: 250.00, ICD10: E11.9 - Control undetermined, due for labs; does not check BS -last A1C was 7.6-7.8 and prior was >10 - Continue current medications; hold jardiance 3 days preop and hold janumet DOS - Counseled on healthy diet and regular exercise - follow with PCP 7. Gastroesophageal reflux disease, unspecified whether esophagitis present - ICD9: 530.81, ICD10: K21.9 - Discussed lifestyle modifications including losing weight, limiting caffeine, no meals three hours before sleep, and head of bed elevation - Continue treatment with protonix 40mg QD 8. Dysphagia, unspecified type - ICD9: 787.20, ICD10: R13.10 Paralyzed vocal cord since 2019 Difficulty swallowing at times 9. Unilateral vocal cord paralysis - ICD9: 478.31, ICD10: J38.01 Paralyzed vocal cord since 2019 Difficulty swallowing at times Breathy voice Weak voice and voice changes since her surgery 10. Coronary artery disease involving diomede coronary artery of diomede heart without angina pectoris - ICD9: 414.01, ICD10: I25.10 S/p stent 2018 and CABG 2019 Anginal equivalent symptoms was chest pain that radiated to her left arm after a week Denies CP or SOB with activity Patient is unsure if she needs cardiac clearance or not from Dr. Sheehan 11. PAD (peripheral artery disease) (HCC) - ICD9: 443.9, ICD10: I73.9 S/p revascularization with stent 08/[address] Quintana Has appt 11/27/24 but will call prior to appt for instructions on aspirin and plavix Pending clearance from Dr. Quintana 12. Hypertension, unspecified type - ICD9: 401.9, ICD10: I10 - Controlled - Continue current medications - Recommend home blood pressure monitoring, to bring results to next visit - Encouraged sodium restriction, DASH or Mediterranean diet - Recommend regular aerobic exercise once approved by Dr. Sheehan 13. Hyperlipidemia, unspecified hyperlipidemia type - ICD9: 272.4, ICD10: E78.5 - Control undetermined, due for labs - Continue current medications - Counseled on healthy diet and regular exercise Manuela Gamboa, BAR FINISH OPERATOR.SINK MAKER METS: Walk indoors, such as around the house (1.75 METs) Do light work around the house, such as dusting or washing dishes (2.70 METs) Partially dependent Limited most or all of the time (uses scooter, mobility device) Patient very limited with use of right arm (unable to carry anything, do hair, etc) and is limited by neck pain ANESTHESIA FINDINGS: Intubation History: right vocal cord paralysis Significant Anesthesia Considerations: None Airway History: History of head/neck surgery that distorted airway, including mouth, neck, or theirmobility Acquired pathologic states that can distort airway or airway management; vocal cord paralysis Planned Anesthetic: General and Per anesthesia choice Instructions Given to Patient: Instructions located in the after visit summary. Patient given verbal and written preop instructions and voices comprehension and compliance. SIGNATURE: Manuela Gamboa APRN.CNP PATIENT NAME: Chidi Musa DATE: November 09, 2024 TIME: 10:21 AM Manuela Guzman APRN.CNP - 11/09/2024 9:41 AM ESTSummary: DOS MEDS MEDICATION INSTRUCTIONS PRIOR TO SURGERY Please read below carefully for your personalized instructions. Medications: If you are on blood thinner or anticoagulants including aspirin, please confirm with your surgical team on when to stop these medications. Unless instructed differently by your surgical team, stay on all of your medications until your surgery. Pre-Surgery Med Instructions Medication Instructions Evgub-7-AAK-EPA-Fish Oil (FISH OIL) 1,000 (120-180) mg cap Follow surgeon's instructions JANUMET 50-1,000 mg per tablet DO NOT TAKE MORNING OF SURGERY ARIPiprazole (ABILIFY) 5 mg tablet Take morning of surgery with a sip of water, no other fluids cariprazine (VRAYLAR) 1.5 mg capsule Take morning of surgery with a sip of water, no other fluids JARDIANCE 10 mg tablet HOLD 3 DAYS PRIOR TO PROCEDURE fluconazole (DIFLUCAN) 100 mg tablet DO NOT TAKE MORNING OF SURGERY fluticasone (FLONASE) 50 mcg/actuation nasal spray PRN if needed hydrOXYzine HCl (ATARAX) 25 mg tablet Take morning of surgery with a sip of water, no other fluids lidocaine (LIDODERM) 5 % DO NOT TAKE MORNING OF SURGERY methocarbamol (ROBAXIN) 500 mg tablet PRN if needed pregabalin (LYRICA) 150 mg capsule Take morning of surgery with a sip of water, no other fluids aspirin 81 mg cap Follow Prescribers Instructions albuterol HFA (PROVENTIL HFA, VENTOLIN HFA) 90 mcg/actuation inhaler PRN if needed atorvastatin (LIPITOR) 40 mg tablet Take morning of surgery with a sip of water, no other fluids clopidogrel (PLAVIX) 75 mg tablet Follow Prescribers Instructions fluticasone-salmeterol (ADVAIR, WIXELA) 250-50 mcg/dose inhaler Use Day of Surgery metoprolol succinate ER (TOPROL XL) 25 mg 24 hr tablet Take morning of surgery with a sip of water,no other fluids pantoprazole DR (PROTONIX) 40 mg tablet Take morning of surgery with a sip of water, no other fluids traMADol (ULTRAM) 50 mg tablet PRN if needed If you have any medication changes between receiving these instructions and your surgery date, please provide this updated information with the nurse who calls you the week day prior to your surgicalprocedure so we can update your list and provide you with updated instructions for the morning of your procedure. Neelam North APRN.EUGENIE - 11/09/2024 9:00 AM ESTSummary: preanesthesia review C4-6 PSF, C5 lami 3/3 [place] (4hrs) Patient is myelopathic per surgeon 59yo female, exsmoker, occ MJN. PMH: +AVE noncompliant, HTN, HLD, CAD s/p PCI stent 2018/[place] s/p CABG x3 05/2020 on [facility]APT ([facility]), PAD s/p iliac artery stent/thrombectomy 08/2024 ([place]), DM2 (Jardiance), GERD, previous ACDF with residual R vocal cord paralysis and dysphagia, CALVIN, depression CT cervical spine 10/20/24 Degenerative disc disease is most pronounced at C5-C6 with small posterior disc osteophyte complex resulting in mild to moderate canal stenosis. Foraminal stenosis is better characterized on recent MRI. Chronic postsurgical changes of C6-C7 ACDF with plate and screw fixation and interbody grafting. Labs done 11/04 were unremarkable All cardiac studies available under this link: Scan on 11/05/2024 8:08 AM by Provider, External, SHELL: Shay keenan SPECT 2019: No evidence of ischemia. Mild inferior fixed defect, possibly artifactual, but given the history ofprior KS, mild nontransmural scarring/infarction cannot be entirely excluded. No baseline study available for comparison. No wall motion abnormality. Carotid US 2019: keny ICA 1-39 ECHO 04/2020, EF 55-60, mild MAC [facility] Instructions* Patient Instructions* Manuela Gamboa APRN.EUGENIE - 11/09/2024 9:45 AM EST MEDICATION INSTRUCTIONS PRIOR TO SURGERY Please read below carefully for your personalized instructions. Medications: If you are on blood thinner or anticoagulants including aspirin, please confirm with your surgical team on when to stop these medications. Unless instructed differently by your surgical team, stay on all of your medications until your surgery. Pre-Surgery Med Instructions Medication Instructions Zbocr-2-WMX-EPA-Fish Oil (FISH OIL) 1,000 (120-180) mg cap Follow surgeon's instructions JANUMET 50-1,000 mg per tablet DO NOT TAKE MORNING OF SURGERY ARIPiprazole (ABILIFY) 5 mg tablet Take morning of surgery with a sip of water, no other fluids cariprazine (VRAYLAR) 1.5 mg capsule Take morning of surgery with a sip of water, no other fluids JARDIANCE 10 mg tablet HOLD 3 DAYS PRIOR TO PROCEDURE fluconazole (DIFLUCAN) 100 mg tablet DO NOT TAKE MORNING OF SURGERY fluticasone (FLONASE) 50 mcg/actuation nasal spray PRN if needed hydrOXYzine HCl (ATARAX) 25 mg tablet Take morning of surgery with a sip of water, no other fluids lidocaine (LIDODERM) 5 % DO NOT TAKE MORNING OF SURGERY methocarbamol (ROBAXIN) 500 mg tablet PRN if needed pregabalin (LYRICA) 150 mg capsule Take morning of surgery with a sip of water, no other fluids aspirin 81 mg cap Follow Prescribers Instructions albuterol HFA (PROVENTIL HFA, VENTOLIN HFA) 90 mcg/actuation inhaler PRN if needed atorvastatin (LIPITOR) 40 mg tablet Take morning of surgery with a sip of water, no other fluids clopidogrel (PLAVIX) 75 mg tablet Follow Prescribers Instructions fluticasone-salmeterol (ADVAIR, WIXELA) 250-50 mcg/dose inhaler Use Day of Surgery metoprolol succinate ER (TOPROL XL) 25 mg 24 hr tablet Take morning of surgery with a sip of water,no other fluids pantoprazole DR (PROTONIX) 40 mg tablet Take morning of surgery with a sip of water, no other fluids traMADol (ULTRAM) 50 mg tablet PRN if needed If you have any medication changes between receiving these instructions and your surgery date, please provide this updated information with the nurse who calls you the week day prior to your surgicalprocedure so we can update your list and provide you with updated instructions for the morning of your procedure. documented in this encounterThe [facility]02-[facility]25 NoteHNO ID: [id number] Author: MANUELA GAMBOA APRN.CNP Service: ? Author Type: Nurse Practitioner Type: Progress Notes Filed: 11/09/2024 11:01 Note Text: Summary: DOS MEDS MEDICATION INSTRUCTIONS PRIOR TO SURGERY Please read below carefully for your personalized instructions. Medications: If you are on blood thinner or anticoagulants including aspirin, please confirm with your surgical team on when to stop these medications. Unless instructed differently by your surgical team, stay on all of your medications until your surgery. Pre-Surgery Med Instructions Medication Instructions Dbtry-4-IVI-EPA-Fish Oil (FISH OIL) 1,000 (120-180) mg cap Follow surgeon's instructions JANUMET 50-1,000 mg per tablet DO NOT TAKE MORNING OF SURGERY ARIPiprazole (ABILIFY) 5 mg tablet Take morning of surgery with a sip of water, no other fluids cariprazine (VRAYLAR) 1.5 mg capsule Take morning of surgery with a sip of water, no other fluids JARDIANCE 10 mg tablet HOLD 3 DAYS PRIOR TO PROCEDURE fluconazole (DIFLUCAN) 100 mg tablet DO NOT TAKE MORNING OF SURGERY fluticasone (FLONASE) 50 mcg/actuation nasal spray PRN if needed hydrOXYzine HCl (ATARAX) 25 mg tablet Take morning of surgery with a sip of water, no other fluids lidocaine (LIDODERM) 5 % DO NOT TAKE MORNING OF SURGERY methocarbamol (ROBAXIN) 500 mg tablet PRN if needed pregabalin (LYRICA) 150 mg capsule Take morning of surgery with a sip of water, no other fluids aspirin 81 mg cap Follow Prescribers Instructions albuterol HFA (PROVENTIL HFA, VENTOLIN HFA) 90 mcg/actuation inhaler PRN if needed atorvastatin (LIPITOR) 40 mg tablet Take morning of surgery with a sip of water, no other fluids clopidogrel (PLAVIX) 75 mg tablet Follow Prescribers Instructions fluticasone-salmeterol (ADVAIR, WIXELA) 250-50 mcg/dose inhaler Use Day of Surgery metoprolol succinate ER (TOPROL XL) 25 mg 24 hr tablet Take morning of surgery with a sip of water, no other fluids pantoprazole DR (PROTONIX) 40 mg tablet Take morning of surgery with a sip of water, no other fluids traMADol (ULTRAM) 50 mg tablet PRN if needed If you have any medication changes between receiving these instructions and your surgery date, please provide this updated information with the nurse who calls you the week day prior to your surgical procedure so we can update your list and provide you with updated instructions for the morning of your procedure.[facility]02-10-2025 NoteHNO ID: [id number] Author: NEELAM TAN APRN.EUGENIE Service: ? Author Type: Nurse Practitioner Type: Progress Notes Filed: 11/09/2024 11:01 Note Text: Summary: preanesthesia review C4-6 PSF, C5 lami 11/30 [place] (4hrs) Patient is myelopathic per surgeon 59yo female, exsmoker, occ MJN. PMH: +AVE noncompliant, HTN, HLD, CAD s/p PCI stent 2018/[place] s/p CABG x3 05/2020 on DAPT ([place]), PAD s/p iliac artery stent/thrombectomy 08/2024 ([place]), DM2 (Jardiance), GERD, previous ACDF with residual R vocal cord paralysis and dysphagia, CALVIN, depression CT cervical spine 10/20/24 Degenerative disc disease is most pronounced at C5-C6 with small posterior disc osteophyte complex resulting in mild to moderate canal stenosis. Foraminal stenosis is better characterized on recent MRI. Chronic postsurgical changes of C6-C7 ACDF with plate and screw fixation and interbody grafting. Labs done 11/04 were unremarkable All cardiac studies available under this link: Scan on 11/05/2024 8:08 AM by Provider, SHELL Fonseca: Shay keenan SPECT 2020: No evidence of ischemia. Mild inferior fixed defect, possibly artifactual, but given the history of prior KS, mild nontransmural scarring/infarction cannot be entirely excluded. No baseline study available for comparison. No wall motion abnormality. Carotid US 2020: keny ICA 1-39 ECHO 04/2020, EF 55-60, mild [facility]01-31-2025 Telephone encounter Note* Telephone Encounter - Kaleb Schultz LPN - 10/30/2024 8:35 AM EST Scheduled C4-6 PSF and C5 laminectomy on 11/30/24 at [facility]. POV with Dr. Sheehan is scheduledon 12/15/24, [facility]. Instructions, surgery guide, and skin prep were given to patient at 10/27/24 office visit. All questions were answered at that time. Faxed medical clearance to Josephine Walter CNP, cardiac clearance to Dr. Andrew Maldonado and vascular clearance to Dr. Alejandro Quintana. Kaleb Schultz LPN [facility]01-31-2025 Miscellaneous Notes* Telephone Encounter - Kaleb Schultz LPN - 10/30/2024 8:35 AM EST Scheduled C4-6 PSF and C5 laminectomy on 11/30/24 at [facility]. POV with Dr. Sheehan is scheduledon 12/15/24, [facility]. Instructions, surgery guide, and skin prep were given to patient at 10/27/24 office visit. All questions were answered at that time. Faxed medical clearance to Josephine Walter CNP, cardiac clearance to Dr. Andrew Maldonado and vascular clearance to Dr. Alejandro Quintana. Kaleb Schultz LPN documented in [facility] encounterThe [facility]01-[facility] Telephone encounter Note * Telephone Encounter - Isaiah Quintana - 10/28/2024 9:04 AM EST Spoke to patient to garbage pick up man her disc for the lumbar spine, she will pick this up the next time she is in to see Dr Sheehan. [facility]01-29-[facility] Miscellaneous Notes* Telephone Encounter - Isaiah Quintana - 10/28/2024 9:04 AM EST Spoke to patient to garbage pick up man her disc for the lumbar spine, she will pick this up the next time she is in to see Dr Sheehan. documented in [facility] encounterThe [facility]01-28-2025 NoteHNO ID: [id number] Author: MAYANK SHEEHAN MD Service: ? Author Type: Physician Type: Progress Notes Filed: 10/27/2024 16:25 Note Text: Mayank Sheehan MD [facility] Orthopaedic Surgery - Orthopaedic Spine Surgeon [address] [facility], [address], [address], [facility] [address] [id number] Phone: [phone] FAX: [phone] Spine Surgery Outpatient Note Service Date: 10/27/2024 Chief Complaint: Follow-up visit for cervical adjacent segment disease with myelopathy History of Present Illness Chidi Musa is a 59 year old female with who was last seen in the office on 10/09/2024 for chief complaint of cervical spine pain with radiation bilateral upper extremities, bilateral upper extremity weakness, dexterity issues, gait imbalance. At our prior visit I recommended CT of cervical spine for surgical planning. Chidi Musa presents today for repeat evaluation and surgical discussion. She reports progressive worsening of symptoms in the last visit. Radiating pain into the bilateral upper extremities, but appreciable the right upper extremity, has worsened. She is very anxious to proceed with surgery. Of note, the patient reports significant hoarseness following the initial surgery that has progressively worsened as well as continued difficulty swallowing after her initial ACDF. Summary of Symptoms Pain Location: Cervical and lumbar spine Radiation of Pain: Bilateral upper extremities, bilateral buttocks lateral thighs Weakness: Bilateral extremities Dexterity Issues: Yes Imbalance: Yes Falls: Yes Bowel/Bladder Dysfunction: No Change in Symptoms: Worsening pain in cervical spine as well as worsening bilateral hand numbness Prior Conservative Treatment Physical Therapy: Yes (>1 year ago) Medications: Gabapentin, tramadol Pain Management: No (previously effective, but no relief with most recent injection) Injections: Yes Surgery: ACDF (uncertain of surgeon name or level) Other: No The following portions of the patient's history were reviewed and updated as appropriate: allergies, current medications, past family history, past medical history, past social history, past surgical history and problem list. ACTIVE PROBLEM LIST Cervical Spondylosis With Myelopathy History reviewed. No pertinent past medical history. History reviewed. No pertinent surgical history. History reviewed. No pertinent family history. Social History Tobacco Use Smoking status: Former Current packs/day: 1.00 Average packs/day: 1 pack/day for 38.0 years (38.0 ttl pk-yrs) Types: Cigarettes Smokeless tobacco: Never Substance Use Topics Alcohol use: Yes Drug use: Not Currently ALLERGIES No Known Allergies Medications: JANUMET 50-1,000 mg per tablet ARIPiprazole (ABILIFY) 5 mg tablet benzonatate (TESSALON PERLE) 100 mg capsule Take 100 mg by mouth. doxycycline hyclate (VIBRAMYCIN) 100 mg capsule Take 1 capsule by mouth every 12 hours. JARDIANCE 10 mg tablet 10 mg. fluconazole (DIFLUCAN) 100 mg tablet fluticasone (FLONASE) 50 mcg/actuation nasal spray USE 1 SPRAY(S) IN EACH NOSTRIL ONCE DAILY hydrOXYzine HCl (ATARAX) 25 mg tablet lidocaine (LIDODERM) 5 % losartan (COZAAR) 25 mg tablet Take 25 mg by mouth. methocarbamol (ROBAXIN) 500 mg tablet Take 1,000 mg by mouth four times a day as needed. metoprolol tartrate, short acting, (LOPRESSOR) 50 mg tablet Take 50 mg by mouth. predniSONE (DELTASONE) 20 mg tablet ticagrelor (BRILINTA) 90 mg tablet Take 90 mg by mouth. traZODone (DESYREL) 100 mg tablet 100 mg. pregabalin (LYRICA) 150 mg capsule Take 1 capsule by mouth three times a day for 30 days. aspirin 81 mg cap Take by mouth. albuterol HFA (PROVENTIL HFA, VENTOLIN HFA) 90 mcg/actuation inhaler Inhale 1-2 Puffs as instructed every 6 hours as needed for wheezing/shortness of breath. atorvastatin (LIPITOR) 40 mg tablet Take 40 mg by mouth once daily. clopidogrel (PLAVIX) 75 mg tablet Take 1 tablet by mouth every afternoon. fluticasone-salmeterol (ADVAIR, WIXELA) 250-50 mcg/dose inhaler Inhale 1 Inhalation as instructed two times a day. metoprolol succinate ER (TOPROL XL) 25 mg 24 hr tablet Take 25 mg by mouth once daily. pantoprazole DR (PROTONIX) 40 mg tablet Take 1 tablet by mouth every afternoon. SITagliptin-metFORMIN (JANUMET XR) 50-1,000 mg TM24 Take 2 tablets by mouth once daily. tiotropium (SPIRIVA) 18 mcg inhalation capsule Inhale 18 mcg as instructed once daily. cariprazine (VRAYLAR) 1.5 mg capsule 1.5 mg. cyclobenzaprine (FLEXERIL) 10 mg tablet 1 tablet at bedtime as needed Orally Once a day montelukast (SINGULAIR) 10 mg tablet Take 10 mg by mouth. omeprazole (PRILOSEC) 40 mg capsule 1 capsule 30 minutes before morning meal Orally Once a day escitalopram oxalate (LEXAPRO) 10 mg tablet Take 1 tablet by mouth every afternoon. gabapentin (NEURONTIN) 300 mg capsule Take 600 mg (more content not included)... [facility]01-28-2025 History of Present illness Narrative* Mayank Sheehan MD - 10/27/2024 2:16 PM EST Images from the original note were not included. Mayank Sheehan MD [facility] Orthopaedic Surgery - Orthopaedic Spine Surgeon [address], [address] [address] [address] [facility], [address], [place] [address] Phone: [phone] FAX: [phone] Spine Surgery Outpatient Note Service Date: 10/27/2024 Chief Complaint: Follow-up visit for cervical adjacent segment disease with myelopathy History of Present Illness Chidi Musa is a 59 year old female with who was last seen in the office on 10/09/2024 for chief complaint of cervical spine pain with radiation bilateral upper extremities, bilateral upper extremity weakness, dexterity issues, gait imbalance. At our prior visit I recommended CT of cervical spine for surgical planning. Chidi Musa presents today for repeat evaluation and surgical discussion. She reports progressive worsening of symptoms in the last visit. Radiating pain into the bilateral upper extremities, but appreciable the right upper extremity, has worsened. She is very anxious to proceed with surgery. Of note, the patient reports significant hoarseness following the initial surgery that has progressively worsened as well as continued difficulty swallowing after her initial ACDF. Summary of Symptoms Pain Location: Cervical and lumbar spine Radiation of Pain: Bilateral upper extremities, bilateral buttocks lateral thighs Weakness: Bilateral extremities Dexterity Issues: Yes Imbalance: Yes Falls: Yes Bowel/Bladder Dysfunction: No Change in Symptoms: Worsening pain in cervical spine as well as worsening bilateral hand numbness Prior Conservative Treatment Physical Therapy: Yes (>1 year ago) Medications: Gabapentin, tramadol Pain Management: No (previously effective, but no relief with most recent injection) Injections: Yes Surgery: ACDF (uncertain of surgeon name or level) Other: No The following portions of the patient's history were reviewed and updated as appropriate: allergies, current medications, past family history, past medical history, past social history, past surgicalhistory and problem list. ACTIVE PROBLEM LIST Cervical Spondylosis With Myelopathy History reviewed. No pertinent past medical history. History reviewed. No pertinent surgical history. History reviewed. No pertinent family history. Social History Tobacco Use Smoking status: Former Current packs/day: 1.00 Average packs/day: 1 pack/day for 38.0 years (38.0 ttl pk-yrs) Types: Cigarettes Smokeless tobacco: Never Substance Use Topics Alcohol use: Yes Drug use: Not Currently ALLERGIES No Known Allergies Medications: JANUMET 50-1,000 mg per tablet ARIPiprazole (ABILIFY) 5 mg tablet benzonatate (TESSALON PERLE) 100 mg capsule Take 100 mg by mouth. doxycycline hyclate (VIBRAMYCIN) 100 mg capsule Take 1 capsule by mouth every 12 hours. JARDIANCE 10 mg tablet 10 mg. fluconazole (DIFLUCAN) 100 mg tablet fluticasone (FLONASE) 50 mcg/actuation nasal spray USE 1 SPRAY(S) IN EACH NOSTRIL ONCE DAILY hydrOXYzine HCl (ATARAX) 25 mg tablet lidocaine (LIDODERM) 5 % losartan (COZAAR) 25 mg tablet Take 25 mg by mouth. methocarbamol (ROBAXIN) 500 mg tablet Take 1,000 mg by mouth four times a day as needed. metoprolol tartrate, short acting, (LOPRESSOR) 50 mg tablet Take 50 mg by mouth. predniSONE (DELTASONE) 20 mg tablet ticagrelor (BRILINTA) 90 mg tablet Take 90 mg by mouth. traZODone (DESYREL) 100 mg tablet 100 mg. pregabalin (LYRICA) 150 mg capsule Take 1 capsule by mouth three times a day for 30 days. aspirin 81 mg cap Take by mouth. albuterol HFA (PROVENTIL HFA, VENTOLIN HFA) 90 mcg/actuation inhaler Inhale 1-2 Puffs as instructedevery 6 hours as needed for wheezing/shortness of breath. atorvastatin (LIPITOR) 40 mg tablet Take 40 mg by mouth once daily. clopidogrel (PLAVIX) 75 mg tablet Take 1 tablet by mouth every afternoon. fluticasone-salmeterol (ADVAIR, WIXELA) 250-50 mcg/dose inhaler Inhale 1 Inhalation as instructed two times a day. metoprolol succinate ER (TOPROL XL) 25 mg 24 hr tablet Take 25 mg by mouth once daily. pantoprazole DR (PROTONIX) 40 mg tablet Take 1 tablet by mouth every afternoon. SITagliptin-metFORMIN (JANUMET XR) 50-1,000 mg TM24 Take 2 tablets by mouth once daily. tiotropium (SPIRIVA) 18 mcg inhalation capsule Inhale 18 mcg as instructed once daily. cariprazine (VRAYLAR) 1.5 mg capsule 1.5 mg. cyclobenzaprine (FLEXERIL) 10 mg tablet 1 tablet at bedtime as needed Orally Once a day montelukast (SINGULAIR) 10 mg tablet Take 10 mg by mouth. omeprazole (PRILOSEC) 40 mg capsule 1 capsule 30 minutes before morning meal Orally Once a day escitalopram oxalate (LEXAPRO) 10 mg tablet Take 1 tablet by mouth every afternoon. gabapentin (NEURONTIN) 300 mg capsule Take 600 mg by mouth three times a day. (Patient not taking: Reported on 10/27/2024) traMADol (ULTRAM) 50 mg tablet Take 50 mg by mouth every 6 hours as needed for pain. (Patient not taking: Reported on 10/27/2024) Physical Examination: Vital Signs: Pulse 83 Ht 157.5 cm (5' 2.01) Wt 71.8 kg (158 lb 3.2 oz) SpO2 96% BMI 28.93 kg/m General Appearance: Well nourished, well developed, and no apparent distress. Musculoskeletal: No tenderness to palpation in the midline over the spinous processes or in the paraspinal musculature. Well-healed right anterior cervical incision. Muscle Tone and Bulk: Symmetrical in the upper & lower extremities. Sensory: Sensation intact to light touch in C5-T1 and L1-S1 dermatomes. Motor: Upper Extremities Right Left Deltoid (C5) 5 5 Biceps (C6) 5 4 Triceps (C7) 5 4 First Assistant (C8) 5 5 Interossei (T1) 5 5 Lower Extremities Right Left Psoas (L2) 5 5 Quadriceps (L3) 5 5 Dorsiflexion (L4) 5 5 EHL (L5) 5 5 Plantarflexion (S1) 5 5 Gait: Unable to perform tandem gait. Long Tract Signs: No clonus. Ruben's present bilaterally. Reflexes: Symmetric, brisk bilateral patellar and Achilles reflexes. Imaging Last CT Cervical Spine - Impression Only CT CERVICAL SPINE WO IVCON Exam End: 10/20/2024 9:05 AM (Final result) Impression: IMPRESSION: Degenerative disc disease is most pronounced at C5-C6 with small posterior disc osteophyte complex resulting in mild to moderate canal stenosis. Foraminal stenosis is better characterized on recent MRI. Chronic postsurgical changes of C6-C7 ACDF with plate and screw fixation and interbody grafting. Anatomic Variant: None. Assume 7 cervical vertebrae with counting from ... CT of the cervical spine independently reviewed. Image demonstrates C5-6 adjacent segment disease with large anterior osteophyte and small posterior osteophyte within the canal. Assessment 59 year old female who presents with cervical adjacent segment disease with myeloradiculopathy. Encounter Diagnosis ICD-10-CM 1. Cervical myelopathy (HCC) G95.9 2. 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 Spinal stenosis of cervical region M48.02 Informed Consent Risks of surgery were discussed in detail with the patient. Risks of surgery discussed include, butare not limited to, the risk of DVT, PE, and/or . Cardiovascular and pulmonary risk, as related to the patient's preoperative clearance and assessment by the perioperative team as well as anesthesia. The risk of neurological injury was discussed in great detail, including discussion of a spectrum of partial dysfunction through complete dysfunction. The risk of spinal cord or nerve root injury wasdiscussed that may result in weakness, paralysis, sensory loss, and/or intractable pain in the dermatome supplied by the nerve root that might either be transient or permanent in nature. The risk of compressive epidural hematoma and/or compressive epidural abscess was discussed with the patient that may or may not result in transient and/or permanent bowel and bladder dysfunction and/or transientand/or permanent upper and/or lower extremity dysfunction such as weakness, paralysis, sensory loss, and/or intractable pain. The risk of durotomy, and potential complications of spinal headache, vision changes, and persistent leakage, resulting in the need for further surgery, and/or drain placement was discussed. The risk of complications related to fusion were discussed in detail. The risk of pseudoarthrosis was discussed. The risk of hardware failure including hardware pullout, abel breakage, screw breakage was discussed. The risk of screw loosening was discussed. The risk of need for further surgery for hardware failure, pseudoarthrosis was discussed. The risk of screw misplacement resulting in radiculopathy or neurological injury was discussed. The risk of need for further surgery to alter trajectoryof hardware was discussed. The risk of needing to extend the fusion cephalad and/or caudad and the reasoning behind this was discussed. Adjacent segment breakdown that may or may not be symptomatic was discussed. The risk of instability status-post surgery was discussed, the risk of superficial and deep infection was discussed. No guarantees were offered nor implied regarding final outcome status post surgery or presence or absence of complication perioperatively. The risk of no improvement in symptoms despite technically adequate decompression of the compressedstructures was discussed in extreme detail. The risk of need for further surgery for any reason wasdiscussed. After a thorough discussion, the patient had many appropriate questions, all questions were answered to the patient's stated satisfaction. The patient voiced excellent understanding of both the reasoning for offering surgery, the potential complications regarding this particular surgery, and has elected to proceed. Surgical Risk Factors Revision Surgery: No BMI: 28.93 kg/m2 Diabetic: No Bone Mineral Density/DEXA/CT Hounsfield Units: Not applicable Immunocompromised: No Antiplatelet/anticoagulant: Yes (clopidogrel) Alcohol: Yes Smoking Status: No Surgery Details For Scheduling Procedure: C4-6 posterior cervical fusion, C5 laminectomy Bed/Position: Gilberto/Prone in [place] Imaging: C-arm Special Equipment: Globus Quartex Neuromonitoring: Yes Duration: 4 hour(s) Estimated Length of Stay: 3 day(s) Follow-up: 2 week(s) Plan The clinical and radiographic findings as well as the risks, benefits, and alternatives of treatment have been reviewed in detail with the patient. We had a discussion of symptoms, examination, and imaging findings. Will continue to monitor patient for Cervical myelopathy (hcc) (primary encounter diagnosis) Adjacent segment disease of cervical spine at c5-c6 level with history of fusion procedure Spinal stenosis of cervical region, patient to schedule visit as per follow up discussed. A summary of my recommendations is as follows: OR of C4-6 posterior cervical fusion with C5 laminectomy. Pre-op medical labs and clearance. Will coordinate anticoagulation with vascular surgery. Follow-up 2 weeks post-op. Advised to call the office if symptoms worsen or new symptoms develop. Patient expressed understanding and is in agreement with plan. Mayank Sheehan MD Orthopaedic Spine Surgery This note was generated all or in part using [employer] voice recognition software. Please excuse any minor errors in spelling, grammar, or punctuation. * Estela Foy MA - 10/27/2024 1:34 PM EST 59 year old female pt here for cervical pain and results. [facility] NoteHNO ID: [id number] Author: ESTELA FOY MA Service: ? Author Type: Public Transportation Inspector Type: Progress Notes Filed: 10/27/2024 16:25 Note Text: 59 year old female pt here for cervical pain and results.[facility] 10-20-2024 History of Present illness Narrative* Kevin Robledo RT(R) - 10/20/2024 8:20 AM EST Radiology Service Progress Note PATIENT NAME: Chidi Musa DATE OF SERVICE: October 20, 2024 TIME: 11:20 AM PATIENT IDENTITY VERIFICATION COMPLETED USING TWO (2) IDENTIFIERS: Name and Date of confirmedby patient verbally. FALL SCREENING: Has the patient had 2 falls in the last year or 1 fall with injury or currently using an Ambulatory Assistive Device (Walker, Cane, Wheelchair, Crutches, etc.)? No PATIENT GENDER DATA: Assigned female at . status: : No status:NO. PATIENT RELEVANT IMPLANT DATA REVIEWED: Yes PATIENT PRESENTS WITH AN IMPLANTABLE OR ATTACHED HEATER TENDER: No RADIOLOGY DEPARTMENT: CT; Exam(s) Completed: Spine PERIPHERAL IV DATA: Not applicable SIGNED BY: RT Verónica(R) October 20, 2024 11:20 AM documented in this [facility]The [facility]25 NoteHNO ID: [id number] Author: KEVIN ROBLEDO RT(Cale) Service: ? Author Type: Disk Recordist Type: Progress Notes Filed: 10/20/2024 11:20 Note Text: Radiology Service Progress Note PATIENT NAME: Chidi Musa DATE OF SERVICE: October 20, 2024 TIME: 11:20 AM PATIENT IDENTITY VERIFICATION COMPLETED USING TWO (2) IDENTIFIERS: Name and Date of confirmed by patient verbally. FALL SCREENING: Has the patient had 2 falls in the last year or 1 fall with injury or currently using an Ambulatory Assistive Device (Walker, Cane, Wheelchair, Crutches, etc.)? No PATIENT GENDER DATA: Assigned female at . status: : No status: NO. PATIENT RELEVANT IMPLANT DATA REVIEWED: Yes PATIENT PRESENTS WITH AN IMPLANTABLE OR ATTACHED HEATER TENDER: No RADIOLOGY DEPARTMENT: CT; Exam(s) Completed: Spine PERIPHERAL IV DATA: Not applicable SIGNED BY: RT Verónica(R) October 20, 2024 11:20 [facility]01-10-2025 NoteHNO ID: [id number] Author: MAYANK SHEEHAN MD Service: ? Author Type: Physician Type: Progress Notes Filed: 10/09/2024 08:38 Note Text: Mayank Sheehan MD [facility] General Orthopaedic Surgery - Orthopaedic Spine Surgeon [address], [facility] [address], [place] [address] Phone: [phone] FAX: [phone] Spine Surgery Outpatient Note Service Date: 10/09/2024 Chief Complaint: Follow-up visit for cervical myelopathy History of Present Illness Chidi Musa is a 59 year old female with who was last seen in the office on 09/08/2024 for chief complaint of lumbar back pain with radiation to bilateral buttocks and lateral thighs. At that visit she was additionally diagnosed with cervical myelopathy. At our prior visit I recommended MRI of the cervical spine. Chidi Musa presents today as a virtual visit for review of imaging and plan of care discussion. She feels that symptoms are worsening since her past visit. She is having severe pain in the cervical spine and states that radiating pain into the bilateral upper extremities and hands is increasing in intensity. Having significant difficulty with dexterity and is unable to perform some basic activities such as opening jars, etc. Balance is poor. She is very anxious to proceed with surgery as she feels symptoms are worsening. Had stent placed in left iliac artery on 09/02/24 at [facility]. Currently on Plavix for 6 months. Recently had a discussion with general surgeon about surgery for hernia and was advised by her vascular surgeon to wait for 6 months given recent stent placement. Summary of Symptoms Pain Location: Cervical and lumbar spine Radiation of Pain: Bilateral upper extremities, bilateral buttocks lateral thighs Weakness: Bilateral extremities Dexterity Issues: Yes Imbalance: Yes Falls: Yes Bowel/Bladder Dysfunction: No Change in Symptoms: Worsening pain in cervical spine as well as worsening bilateral hand numbness Prior Conservative Treatment Physical Therapy: Yes (>1 year ago) Medications: Gabapentin, tramadol Pain Management: No (previously effective, but no relief with most recent injection) Injections: Yes Surgery: ACDF (uncertain of surgeon name or level) Other: No The following portions of the patient's history were reviewed and updated as appropriate: allergies, current medications, past family history, past medical history, past social history, past surgical history and problem list. ACTIVE PROBLEM LIST Cervical Spondylosis With Myelopathy No past medical history on file. No past surgical history on file. No family history on file. Social History Tobacco Use Smoking status: Former Current packs/day: 1.00 Average packs/day: 1 pack/day for 38.0 years (38.0 ttl pk-yrs) Types: Cigarettes Smokeless tobacco: Never Substance Use Topics Alcohol use: Yes Drug use: Not Currently ALLERGIES No Known Allergies Medications: ARIPiprazole (ABILIFY) 5 mg tablet benzonatate (TESSALON PERLE) 100 mg capsule Take 100 mg by mouth. cariprazine (VRAYLAR) 1.5 mg capsule 1.5 mg. cyclobenzaprine (FLEXERIL) 10 mg tablet 1 tablet at bedtime as needed Orally Once a day doxycycline hyclate (VIBRAMYCIN) 100 mg capsule Take 1 capsule by mouth every 12 hours. JARDIANCE 10 mg tablet 10 mg. fluconazole (DIFLUCAN) 100 mg tablet fluticasone (FLONASE) 50 mcg/actuation nasal spray USE 1 SPRAY(S) IN EACH NOSTRIL ONCE DAILY hydrOXYzine HCl (ATARAX) 25 mg tablet lidocaine (LIDODERM) 5 % losartan (COZAAR) 25 mg tablet Take 25 mg by mouth. methocarbamol (ROBAXIN) 500 mg tablet Take 1,000 mg by mouth four times a day as needed. metoprolol tartrate, short acting, (LOPRESSOR) 50 mg tablet Take 50 mg by mouth. montelukast (SINGULAIR) 10 mg tablet Take 10 mg by mouth. omeprazole (PRILOSEC) 40 mg capsule 1 capsule 30 minutes before morning meal Orally Once a day predniSONE (DELTASONE) 20 mg tablet ticagrelor (BRILINTA) 90 mg tablet Take 90 mg by mouth. traZODone (DESYREL) 100 mg tablet 100 mg. pregabalin (LYRICA) 150 mg capsule Take 1 capsule by mouth three times a day for 30 days. aspirin 81 mg cap Take by mouth. albuterol HFA (PROVENTIL HFA, VENTOLIN HFA) 90 mcg/actuation inhaler Inhale 1-2 Puffs as instructed every 6 hours as needed for wheezing/shortness of breath. atorvastatin (LIPITOR) 40 mg tablet Take 40 mg by mouth once daily. clopidogrel (PLAVIX) 75 mg tablet Take 1 tablet by mouth every afternoon. escitalopram oxalate (LEXAPRO) 10 mg tablet Take 1 tablet by mouth every afternoon. fluticasone-salmeterol (ADVAIR, WIXELA) 250-50 mcg/dose inhaler Inhale 1 Inhalation as instructed two times a day. gabapentin (NEURONTIN) 300 mg capsule Take 600 mg by mouth three times a day. metoprolol succinate ER (TOPROL XL) 25 mg 24 hr tablet Take 25 mg by mouth once daily. pantoprazole DR (PROT (more content not included)...[facility] 10-09-2024 History of Present illness Narrative* Mayank Sheehan MD - 10/09/2024 8:24 AM EST Images from the original note were not included. Mayank Sheehan MD [facility] General Orthopaedic Surgery - Orthopaedic Spine Surgeon [address], [address], [address], [address], [place] [address] Phone: [phone] FAX: [phone] Spine Surgery Outpatient Note Service Date: 10/09/2024 Chief Complaint: Follow-up visit for cervical myelopathy History of Present Illness Chidi Musa is a 59 year old female with who was last seen in the office on 09/08/2024 for chief complaint of lumbar back pain with radiation to bilateral buttocks and lateral thighs. At that visit she was additionally diagnosed with cervical myelopathy. At our prior visit I recommended MRI ofthe cervical spine. Chidi Musa presents today as a virtual visit for review of imaging and anna n of care discussion. She feels that symptoms are worsening since her past visit. She is having severe pain in the cervical spine and states that radiating pain into the bilateral upper extremities and hands is increasing in intensity. Having significant difficulty with dexterity and is unable to perform some basic activities such as opening jars, etc. Balance is poor. She is very anxious to proceed with surgery as she feels symptoms are worsening. Had stent placed in left iliac artery on 09/02/24 at [facility]. Currently on Plavixfor 6 months. Recently had a discussion with general surgeon about surgery for hernia and was advised by her vascular surgeon to wait for 6 months given recent stent placement. Summary of Symptoms Pain Location: Cervical and lumbar spine Radiation of Pain: Bilateral upper extremities, bilateral buttocks lateral thighs Weakness: Bilateral extremities Dexterity Issues: Yes Imbalance: Yes Falls: Yes Bowel/Bladder Dysfunction: No Change in Symptoms: Worsening pain in cervical spine as well as worsening bilateral hand numbness Prior Conservative Treatment Physical Therapy: Yes (>1 year ago) Medications: Gabapentin, tramadol Pain Management: No (previously effective, but no relief with most recent injection) Injections: Yes Surgery: ACDF (uncertain of surgeon name or level) Other: No The following portions of the patient's history were reviewed and updated as appropriate: allergies, current medications, past family history, past medical history, past social history, past surgicalhistory and problem list. ACTIVE PROBLEM LIST Cervical Spondylosis With Myelopathy No past medical history on file. No past surgical history on file. No family history on file. Social History Tobacco Use Smoking status: Former Current packs/day: 1.00 Average packs/day: 1 pack/day for 38.0 years (38.0 ttl pk-yrs) Types: Cigarettes Smokeless tobacco: Never Substance Use Topics Alcohol use: Yes Drug use: Not Currently ALLERGIES No Known Allergies Medications: ARIPiprazole (ABILIFY) 5 mg tablet benzonatate (TESSALON PERLE) 100 mg capsule Take 100 mg by mouth. cariprazine (VRAYLAR) 1.5 mg capsule 1.5 mg. cyclobenzaprine (FLEXERIL) 10 mg tablet 1 tablet at bedtime as needed Orally Once a day doxycycline hyclate (VIBRAMYCIN) 100 mg capsule Take 1 capsule by mouth every 12 hours. JARDIANCE 10 mg tablet 10 mg. fluconazole (DIFLUCAN) 100 mg tablet fluticasone (FLONASE) 50 mcg/actuation nasal spray USE 1 SPRAY(S) IN EACH NOSTRIL ONCE DAILY hydrOXYzine HCl (ATARAX) 25 mg tablet lidocaine (LIDODERM) 5 % losartan (COZAAR) 25 mg tablet Take 25 mg by mouth. methocarbamol (ROBAXIN) 500 mg tablet Take 1,000 mg by mouth four times a day as needed. metoprolol tartrate, short acting, (LOPRESSOR) 50 mg tablet Take 50 mg by mouth. montelukast (SINGULAIR) 10 mg tablet Take 10 mg by mouth. omeprazole (PRILOSEC) 40 mg capsule 1 capsule 30 minutes before morning meal Orally Once a day predniSONE (DELTASONE) 20 mg tablet ticagrelor (BRILINTA) 90 mg tablet Take 90 mg by mouth. traZODone (DESYREL) 100 mg tablet 100 mg. pregabalin (LYRICA) 150 mg capsule Take 1 capsule by mouth three times a day for 30 days. aspirin 81 mg cap Take by mouth. albuterol HFA (PROVENTIL HFA, VENTOLIN HFA) 90 mcg/actuation inhaler Inhale 1-2 Puffs as instructedevery 6 hours as needed for wheezing/shortness of breath. atorvastatin (LIPITOR) 40 mg tablet Take 40 mg by mouth once daily. clopidogrel (PLAVIX) 75 mg tablet Take 1 tablet by mouth every afternoon. escitalopram oxalate (LEXAPRO) 10 mg tablet Take 1 tablet by mouth every afternoon. fluticasone-salmeterol (ADVAIR, WIXELA) 250-50 mcg/dose inhaler Inhale 1 Inhalation as instructed two times a day. gabapentin (NEURONTIN) 300 mg capsule Take 600 mg by mouth three times a day. metoprolol succinate ER (TOPROL XL) 25 mg 24 hr tablet Take 25 mg by mouth once daily. pantoprazole DR (PROTONIX) 40 mg tablet Take 1 tablet by mouth every afternoon. traMADol (ULTRAM) 50 mg tablet Take 50 mg by mouth every 6 hours as needed for pain. SITagliptin-metFORMIN (JANUMET XR) 50-1,000 mg TM24 Take 2 tablets by mouth once daily. tiotropium (SPIRIVA) 18 mcg inhalation capsule Inhale 18 mcg as instructed once daily. Physical Examination: Vital Signs: There were no vitals taken for this visit. General Appearance: Well nourished, well developed, and no apparent distress. Motor and Sensory: Unable to assess motor or sensory function given virtual visit. Imaging Last MRI Cervical Spine - Impression Only MRI CERVICAL SPINE WO IVCON Exam End: 09/21/2024 11:25 AM (Final result) Impression: IMPRESSION: Degenerative changes are most pronounced at C5-C6 resulting in mild to moderate canal stenosis as well as moderate right and mild left foraminal stenosis. Faint patchy T2 STIR hyperintense signal abnormality is present in the right lateral spinal cord at the level of the C5-C6 disc space, compatible with myelomalacia. ... Adjacent segment disease with severe central stenosis at C5-6 with myelomalacia. Assessment 59 year old female who presents with cervical adjacent segment disease and myelopathy. Encounter Diagnosis ICD-10-CM 1. Cervical myelopathy (HCC) G95.9 2. 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 We had a discussion of symptoms, examination, and imaging findings. Will continue to monitor patient for Cervical myelopathy (hcc) (primary encounter diagnosis) Adjacent segment disease of cervical spine at c5-c6 level with history of fusion procedure, patientto schedule visit as per follow up discussed. A summary of my recommendations is as follows: CT of the cervical spine ordered for operative planning. Follow-up after completion of imaging for surgical discussion. Will need clearance from vascular surgeon regarding appropriate timeline as patient will need to beoff of anticoagulation for surgery. Advised to call the office if symptoms worsen or new symptoms develop. Patient expressed understanding and is in agreement with plan. Mayank Sheehan MD Orthopaedic Spine Surgery This note was generated all or in part using [employer] voice recognition software. Please excuse any minor errors in spelling, grammar, or punctuation. This visit was conducted virtually. I spent 10 minutes on voice/video discussing with the patient. [facility] Instructions* Patient Instructions* Newton Shine MD - 09/28/2024 8:46 AM EST Thank you for coming in to the [facility], it was a pleasure to meet with you. The planfrom your visit is summarized here. - .Imaging/Lab orders : MRI reviewed 2. Medical management : Change to pregabaling as gabapentin not helping pregabalin 150 mg tid - Continue methocarbamol -Continue lidocaine patch and heating pad Continue tramadol twice daily consider amitriptilline after discussion with Psychiatry doctor 3. Interventions : Possible SUHA at T1-T2 Discuss with spine surgeon - Patient can not be off plavix- Sep 02 4. Musculoskeletal rehabilitation : Physical therapy 5. Consults/Referrals : Discuss with spine surgeon documented in [facility]The [facility] NoteHNO ID: [id number] Author: NEWTON SHINE MD Service: ? Author Type: Anesthesiologist Type: Progress Notes Filed: 09/30/2024 10:26 Note Text: [facility] Department of Pain Management New Patient Consultation PATIENT: Chidi Musa : 1965 DATE OF SERVICE: 09/28/2024 REFERRING PRACTITIONER: Mayank Sheehan MD PRIMARY CARE PROVIDER: Josephine Walter CNP, SINK [employer] CHIEF COMPLAINT: Patient presents with: Neck Pain: Neck, arms HISTORY OF PRESENT ILLNESS: Chidi Musa is a 59 year old year old female who presents to the clinic today with chief complaint(s) as above. Onset/Duration: 5 weeks Injury: ACDF unknown level at [facility] in 1989 Fell from truck and landed on tail bone in Jul 2024 Location/radiation/referral: Bacjk of the neck and radiates to upper back, bilateral shoulders, arm pit and arm and hands Lower back radiates along the back -radiates to the toes But neck pain is worse than low back pain. Description: The pain is described as aching, burning, and stabbing. Pain Level: Now: 10 /10 Best: 8 /10 Worst: 10 /10 Numbness/Tingling (location): In the upper extremity Weakness (location): Significant weakness in both upper extremities Aggravating Factors: sleeping Alleviating Factors: medications and heat. Smoking weed The pain does interfere with the patient's sleep at night and the patient reports 2 hours of uninterrupted sleep per night. Interference with: physical activity and sleeping Patient entered comments: Fever/Chills: [] Yes [x] No Recent significant weight change: [] Yes [x] No Bladder/Bowel incontinence: [] Yes [x] No Sudden significant weakness: [x] Yes [] No Using arms- significant weakness Is this visit directly related to a work or auto injury? [] Yes [x] No If so, pre-Injury Symptoms: n/a Past Treatments: Past Treatment: PT or Home exercise (for this condition): [x] Yes [] No Chiropractic (for this condition): [] Yes [x] No In the past 12 months, She completed 0 physical therapy sessions. Pain Medications: - Opioids: Tramadol 50 mg twice daily - NSAIDs: N - Anti-Depressants: N - Anti-Convulsants: gabapentin 600 mg tid- not helping much - Others: Desryl 100 mg - Lidocaine patch:Yes- - Muscle relaxants:Flexeril 10mg/ methocarbamol 500 OARRS report: Reviewed: The patient's OARRS report was reviewed and is consistent with the reported medication use. The patient has not seen other pain providers. Past pain treatment has included PT Past pain medications have included Tylenol Gabapentin Opioids: Tramadol She had relief from the following interventions: None She had relief from the following medications:Opioids: Tramadol Lidocaine patch Work/Functional Status Able to ambulate and perform ADL's without devices: [] Yes [x] No Review of Systems: GENERAL: No weight loss, malaise or fevers. HEENT: Negative for frequent or significant headaches. NECK: Negative for lumps, goiter, pain and significant neck swelling. RESPIRATORY: Negative for cough, wheezing or shortness of breath. Exsmoker CARDIOVASCULAR: Negative for chest pain, leg swelling or palpitations. PVD- Stents CABG Stents CAD GI: Negative for abdominal discomfort, blood in stools or black stools or change in bowel habits. HPL DM- Type-2. MUSCULOSKELETAL: Negative for joint pain or swelling, Positive for back pain or muscle pain. SKIN: Negative for lesions, rash, and itching. PSYCH: Positive for for sleep disturbance, mood disorder and recent psychosocial stressors. HEMATOLOGY/LYMPHOLOGY: Negative for prolonged bleeding, bruising easily or swollen nodes. NEURO: No history of syncope, paralysis, seizures or tremors. All other reviewed and negative other than HPI. 14 point ROS; pertinent positives listed above, the rest are reviewed and confirmed to be negative. === HISTORY: ALLERGIES No Known Allergies History reviewed. No pertinent past medical history. History reviewed. No pertinent surgical history. History reviewed. No pertinent family history. Social History Tobacco Use Smoking status: Former Current packs/day: 1.00 Average packs/day: 1 pack/day for 38.0 years (38.0 ttl pk-yrs) Types: Cigarettes Smokeless tobacco: Never Substance Use Topics Alcohol use: Yes Drug use: Not Currently Current Outpatient Medications Medication Sig ARIPiprazole (ABILIFY) 5 mg tablet benzonatate (TESSALON PERLE) 100 mg capsule Take 100 mg by mouth. cariprazine (VRAYLAR) 1.5 mg capsule 1.5 mg. cyclobenzaprine (FLEXERIL) 10 mg tablet 1 tablet at bedtime as needed Orally Once a day doxycycline hyclate (VIBRAMYCIN) 100 mg capsule Take 1 capsule by mouth every 12 hours. JARDIANCE 10 mg tablet 10 mg. fluconazole (DIFLUCAN) 100 mg tablet fluticasone (FLONASE) 50 mcg/actuation nasal spray USE 1 SPRAY(S) IN EACH NOSTRIL ONCE DAILY hyd (more content not included)...[facility]12-30-2024 History of Present illness Narrative* Newton Shine MD - 09/28/2024 8:14 AM EST Images from the original note were not included. [facility] Department of Pain Management New Patient Consultation PATIENT: Chidi Musa : 1965 DATE OF SERVICE: 09/28/2024 REFERRING PRACTITIONER: Mayank Sheehan MD PRIMARY CARE PROVIDER: Josephine Walter CNP, S[employer] CHIEF COMPLAINT: Patient presents with: Neck Pain: Neck, arms HISTORY OF PRESENT ILLNESS: Chidi Musa is a 59 year old year old female who presents to the clinic today with chief complaint(s) as above. Onset/Duration: 5 weeks Injury: ACDF unknown level at [facility] in 1989 Fell from truck and landed on tail bone in Jul 2024 Location/radiation/referral: Bacjk of the neck and radiates to upper back, bilateral shoulders, arm pit and arm and hands Lower back radiates along the back -radiates to the toes But neck pain is worse than low back pain. Description: The pain is described as aching, burning, and stabbing. Pain Level: Now: 10 /10 Best: 8 /10 Worst: 10 /10 Numbness/Tingling (location): In the upper extremity Weakness (location): Significant weakness in both upper extremities Aggravating Factors: sleeping Alleviating Factors: medications and heat. Smoking weed The pain does interfere with the patient's sleep at night and the patient reports 2 hours of uninterrupted sleep per night. Interference with: physical activity and sleeping Patient entered comments: Fever/Chills: [] Yes [x] No Recent significant weight change: [] Yes [x] No Bladder/Bowel incontinence: [] Yes [x] No Sudden significant weakness: [x] Yes [] No Using arms- significant weakness Is this visit directly related to a work or auto injury? [] Yes [x] No If so, pre-Injury Symptoms: n/a Past Treatments: Past Treatment: PT or Home exercise (for this condition): [x] Yes [] No Chiropractic (for this condition): [] Yes [x] No In the past 12 months, She completed 0 physical therapy sessions. Pain Medications: - Opioids: Tramadol 50 mg twice daily - NSAIDs: N - Anti-Depressants: N - Anti-Convulsants: gabapentin 600 mg tid- not helping much - Others: Desryl 100 mg - Lidocaine patch:Yes- - Muscle relaxants:Flexeril 10mg/ methocarbamol 500 OARRS report: Reviewed: The patient's OARRS report was reviewed and is consistent with the reportedmedication use. The patient has not seen other pain providers. Past pain treatment has included PT Past pain medications have included Tylenol Gabapentin Opioids: Tramadol She had relief from the following interventions: None She had relief from the following medications:Opioids: Tramadol Lidocaine patch Work/Functional Status Able to ambulate and perform ADL's without devices: [] Yes [x] No Review of Systems: GENERAL: No weight loss, malaise or fevers. HEENT: Negative for frequent or significant headaches. NECK: Negative for lumps, goiter, pain and significant neck swelling. RESPIRATORY: Negative for cough, wheezing or shortness of breath. Exsmoker CARDIOVASCULAR: Negative for chest pain, leg swelling or palpitations. PVD- Stents CABG Stents CAD GI: Negative for abdominal discomfort, blood in stools or black stools or change in bowel habits. HPL DM- Type-2. MUSCULOSKELETAL: Negative for joint pain or swelling, Positive for back pain or muscle pain. SKIN: Negative for lesions, rash, and itching. PSYCH: Positive for for sleep disturbance, mood disorder and recent psychosocial stressors. HEMATOLOGY/LYMPHOLOGY: Negative for prolonged bleeding, bruising easily or swollen nodes. NEURO: No history of syncope, paralysis, seizures or tremors. All other reviewed and negative other than HPI. 14 point ROS; pertinent positives listed above, the rest are reviewed and confirmed to be negative. === HISTORY: ALLERGIES No Known Allergies History reviewed. No pertinent past medical history. History reviewed. No pertinent surgical history. History reviewed. No pertinent family history. Social History Tobacco Use Smoking status: Former Current packs/day: 1.00 Average packs/day: 1 pack/day for 38.0 years (38.0 ttl pk-yrs) Types: Cigarettes Smokeless tobacco: Never Substance Use Topics Alcohol use: Yes Drug use: Not Currently Current Outpatient Medications Medication Sig ARIPiprazole (ABILIFY) 5 mg tablet benzonatate (TESSALON PERLE) 100 mg capsule Take 100 mg by mouth. cariprazine (VRAYLAR) 1.5 mg capsule 1.5 mg. cyclobenzaprine (FLEXERIL) 10 mg tablet 1 tablet at bedtime as needed Orally Once a day doxycycline hyclate (VIBRAMYCIN) 100 mg capsule Take 1 capsule by mouth every 12 hours. JARDIANCE 10 mg tablet 10 mg. fluconazole (DIFLUCAN) 100 mg tablet fluticasone (FLONASE) 50 mcg/actuation nasal spray USE 1 SPRAY(S) IN EACH NOSTRIL ONCE DAILY hydrOXYzine HCl (ATARAX) 25 mg tablet lidocaine (LIDODERM) 5 % losartan (COZAAR) 25 mg tablet Take 25 mg by mouth. methocarbamol (ROBAXIN) 500 mg tablet Take 1,000 mg by mouth four times a day as needed. metoprolol tartrate, short acting, (LOPRESSOR) 50 mg tablet Take 50 mg by mouth. montelukast (SINGULAIR) 10 mg tablet Take 10 mg by mouth. omeprazole (PRILOSEC) 40 mg capsule 1 capsule 30 minutes before morning meal Orally Once a day predniSONE (DELTASONE) 20 mg tablet ticagrelor (BRILINTA) 90 mg tablet Take 90 mg by mouth. traZODone (DESYREL) 100 mg tablet 100 mg. aspirin 81 mg cap Take by mouth. albuterol HFA (PROVENTIL HFA, VENTOLIN HFA) 90 mcg/actuation inhaler Inhale 1-2 Puffs as instructedevery 6 hours as needed for wheezing/shortness of breath. atorvastatin (LIPITOR) 40 mg tablet Take 40 mg by mouth once daily. clopidogrel (PLAVIX) 75 mg tablet Take 1 tablet by mouth every afternoon. escitalopram oxalate (LEXAPRO) 10 mg tablet Take 1 tablet by mouth every afternoon. fluticasone-salmeterol (ADVAIR, WIXELA) 250-50 mcg/dose inhaler Inhale 1 Inhalation as instructed two times a day. gabapentin (NEURONTIN) 300 mg capsule Take 600 mg by mouth three times a day. metoprolol succinate ER (TOPROL XL) 25 mg 24 hr tablet Take 25 mg by mouth once daily. pantoprazole DR (PROTONIX) 40 mg tablet Take 1 tablet by mouth every afternoon. traMADol (ULTRAM) 50 mg tablet Take 50 mg by mouth every 6 hours as needed for pain. SITagliptin-metFORMIN (JANUMET XR) 50-1,000 mg TM24 Take 2 tablets by mouth once daily. tiotropium (SPIRIVA) 18 mcg inhalation capsule Inhale 18 mcg as instructed once daily. No current facility-administered medications for this visit. OBJECTIVE: Vital Signs: BP 111/65 Pulse 70 Resp 16 Ht 157.5 cm (5' 2) Wt 70.8 kg (156 lb) SpO2 98% BMI 28.53 kg/m Body mass index is 28.53 kg/m . PHYSICAL EXAMINATION: Physical Exam General appearance: Well appearing, in no acute distress, alert. Psych: Mood and affect appropriate. Skin: Skin color, texture, turgor normal, no rashes or lesions. Head/face: Normocephalic, atraumatic. Neck: No pain to palpation over the cervical paraspinous muscles. Spurling Negative. No pain with neck flexion, extension, or lateral flexion. HEENT: Eyes: Conjunctivae clear. Normal upper and lower lids. Ears- Normal Pulmonary: Breathing easily without tachypnea or bradypnea. Cardiac: No LE edema. Regular rate and rhythm, bilateral radial pulses palpated and equal Abdomen: not distended. GI: Soft and non-tender. Ambulation: Gait is antalgic. Patient ambulates Neuro/Musculoskeletal: Cervical Spine: Spurling's Test: Right Positive; Left Positive Facet palpation: Right: tender; Left: tender Facet loading: Right tender; Left tender Shoulder: Shoulders ROM: Right restricted and reproduces pain; Left restricted and reproduces pain Upper Extremity: Motor Strength Left Right Shoulder Abduction: 3/5 3/5 Biceps: 4/5 4/5 Triceps: 5/5 5/5 Wrist Extension: 5/5 5/5 Wrist Flexion: 5/5 5/5 Interosseous: 5/5 5/5 Reflexes: Biceps: Bilateral 1+ Triceps: Bilateral 2+ Brachioradialis: Bilateral 2+ Sensory Exam Right UE: Intact Left UE: Intact Thoracic Spine: Lumbar Spine: Extension-Rotation Left: full without pain Facet Palpation: Right tender; Left tender Facet Loading: Right tender; Left tender Straight Leg Raise: Right Negative; Left Negative Sacroiliac Joint: Lower Extremity: Recent Imaging : Recent Imaging within 12 months cervical MRI was done in this month Degenerative changes are most pronounced at C5-C6 resulting in mild to moderate canal stenosis as well as moderate right and mild left foraminal stenosis. Faint patchy T2 STIR hyperintense signal abnormality is present in the right lateral spinal cord at the level of the C5-C6 disc space, compatible with myelomalacia. No residual canal or foraminal stenosis at C6-C7 following surgical decompression. Anatomic Variant: None. Assume 7 cervical vertebrae with counting from the craniocervical junction. Assessment: Chidi Musa is a 59 year old female with peripheral vascular disease, coronary artery disease and anticoagulants, s/p ACDF C6-C7. -Neck pain, radiating to bilateral upper extremities associated with numbness and paresthesias in bilateral hands -Has low back pain radiating to the buttocks and lateral thighs, worsened with activities. -However wanted to focus on the neck pain as it has been severe and she is unable to do any activities due to pain -She is s/p ACDF C6-C7 at [facility] in 2017 -Her symptoms and signs are suggestive of cervical radiculopathy C5-C6 region -Unfortunately she just had extensive vascular procedure involving 3 stents and she is on anticoagulants -Vascular surgeon has told her that she cannot have any procedures done for now -Will discuss with Dr. Sheehan about possibility of surgery as she has cervical myelopathy -I discussed in detail with the patient's about the need to continue anticoagulants and postpone any surgery or interventions unless they are causing neurological compromise -Will manage pain with conservative management -She has been started with the tramadol by the PCP. Tramadol twice a day helps with the pain. It does not cause any side effects to her (M47.817) Lumbosacral spondylosis without myelopathy (primary encounter diagnosis) (M47.12) Cervical spondylosis with myelopathy Plan: 1.Imaging/Lab orders : MRI reviewed 2. Medical management : Change to pregabaling as gabapentin not helping pregabalin 150 mg tid - Continue methocarbamol -Continue lidocaine patch and heating pad Continue tramadol twice daily consider amitriptilline after discussion with Psychiatry doctor 3. Interventions : Possible SUHA at M9-T2-tbisptry after 6 months Discuss with spine surgeon - Patient can not be off plavix-as he had a stents placed on Sep 02 4. Musculoskeletal rehabilitation : Physical therapy 5. Consults/Referrals : Discuss with spine surgeon Possible medical management as she just had three stents placed and is on Plavix 6. Follow up: Return to clinic in 4 weeks ( PRN , 6-8 weeks if pain persists, 6- 8 weeks with PA-C to determine the need for MRI/Injections, for procedure, for office follow to discuss imaging results, office follow up for medical management) 7. Complementary and Alternative Therapies: 8.Counseled patient regarding the importance of activity modification. We also discussed about multidisciplinary nature of pain management and risks/benefits/alternativesto medication management, pain management interventions, physical or occupational therapy, psychological pain management and surgical options as appropriate. The above plan and management options were discussed at length with patient. Patient is in agreement with the above and verbalized understanding. Medications may cause sedation and impairment of judgment. The patient is advised against driving or using heavy machinery. The patient is also advised against using alcohol or other substances that may have a further additive effect. Shared decision making utilized to continue current treatment plan and patient's questions were answered. Newton Shine MD September 28, 2024 Electronic signature Pain Disability Index 09/28/2024 Pain Disability Index PDI Score 56 Patient Entered Questionnaires PROMIS Score Percentiles Percentiles provide an indication of how the patient's score ranks in relation to the general population. Higher percentile rankings indicate better function/quality of life. 50th percentile is the average of the general population and indicates half of respondents had a worse score. > 31st percentile is within normal limits or better * < 31st percentile is at least SD worse than population, which may be clinically relevant < 16th percentile is at least 1 SD worse than population and warrants attention Depression Screening: PHQ-9 Self-Harm (Item 9) response options: 0 Not at all 1 Several days 2 More than half the days 3 Nearly every day PHQ-9 Levels: 0-4 Minimal depression 5-9 Mild depression 10-14 Moderate depression 15-19 Moderately severe depression 20-27 Severe depression No data to display (0-4) minimal depression, (5-9) mild depression, (10-14) moderate depression, (15-19) moderately severe depression, (20-27) severe depression 09/28/2024 Pain Disability Index PDI Score 56 09/28/2024 Pain Disability Index PDI Score 56 Patient Entered Questionnaires PROMIS Score Percentiles Percentiles provide an indication of how the patient's score ranks in relation to the general population. Higher percentile rankings indicate better function/quality of life. 50th percentile is the average of the general population and indicates half of respondents had a worse score. > 31st percentile is within normal limits or better * < 31st percentile is at least SD worse than population, which may be clinically relevant < 16th percentile is at least 1 SD worse than population and warrants attention 1. This office note has been dictated and may contain minor typographic errors that escaped review 2. The nursing staff and medical assistants are a major part of YOUR TREATMENT TEAM and will be handling your phone calls and inquiries, if any. Unless explicitly told otherwise at the time of your office visit, your study results and ensuing treatment plans will be discussed during your follow-up appointment. If you do not have a follow-up appointment and wish to discuss any issues directly withme, please feel free to obtain one. 3. It is my practice to not fill disability or any other insurance-related forms/documention. All of the office notes, study results, and other pertinent documentation generated as part of your evaluation will be available to you and to your Primary Care Physician (PCP). Use of this material to complete such forms will be at the discretion of your PCP/referring physician. documented in this encounterThe [facility]12-[facility] History of Present illness Narrative* Dariusz Maldonado, RT(R) - 09/21/2024 12:30 PM EST Radiology Service Progress Note PATIENT NAME: Chidi Musa DATE OF SERVICE: September 21, 2024 TIME: 11:03 AM PATIENT IDENTITY VERIFICATION COMPLETED USING TWO (2) IDENTIFIERS: Name and Date of confirmedby patient verbally. FALL SCREENING: Has the patient had 2 falls in the last year or 1 fall with injury or currently using an Ambulatory Assistive Device (Walker, Cane, Wheelchair, Crutches, etc.)? No PATIENT GENDER DATA: Female. status: status: NO. PATIENT RELEVANT IMPLANT DATA REVIEWED: Yes PATIENT PRESENTS WITH AN IMPLANTABLE OR ATTACHED HEATER TENDER: No RADIOLOGY DEPARTMENT: MR; Exam(s) Completed: Spine: Cervical spine PERIPHERAL IV DATA: Not applicable SIGNED BY: RT Luan(R) September 21, 2024 11:03 AM documented in this encounterThe [facility] Hospital12-23-2024 NoteHNO ID: [id number] Author: DARIUSZ MALDONADO RT(Cale) Service: ? Author Type: Technologist Type: Progress Notes Filed: 09/21/2024 11:04 Note Text: Radiology Service Progress Note PATIENT NAME: Chidi Musa DATE OF SERVICE: September 21, 2024 TIME: 11:03 AM PATIENT IDENTITY VERIFICATION COMPLETED USING TWO (2) IDENTIFIERS: Name and Date of confirmed by patient verbally. FALL SCREENING: Has the patient had 2 falls in the last year or 1 fall with injury or currently using an Ambulatory Assistive Device (Walker, Cane, Wheelchair, Crutches, etc.)? No PATIENT GENDER DATA: Female. status: status: NO. PATIENT RELEVANT IMPLANT DATA REVIEWED: Yes PATIENT PRESENTS WITH AN IMPLANTABLE OR ATTACHED HEATER TENDER: No RADIOLOGY DEPARTMENT: MR; Exam(s) Completed: Spine: Cervical spine PERIPHERAL IV DATA: Not applicable SIGNED BY: RT Luan(R) September 21, 2024 11:03 [facility]12-13-2024 Telephone encounter Note* Telephone Encounter - Rachael Pace - 09/11/2024 8:48 AM EST Spoke to the patient to see if she could garbage pick up man her records from [facility] as I have tried to get them and they are not coming through the fax machine properly. The patient said she will go pick them up and bring them to us when she has her next appointment. [facility]12-13-[facility]24 Miscellaneous Notes* Telephone Encounter - Rachael Pace - 09/11/2024 8:48 AM EST Spoke to the patient to see if she could garbage pick up man her records from [facility] as I have tried to get them and they are not coming through the fax machine properly. The patient said she will go pick them up and bring them to us when she has her next appointment. documented in this encounterThe [facility]12-10-[facility]24 History of Present illness Narrative* Debby Romano RT(R) - 09/08/2024 9:45 AM ESTSummary: xray Radiology Service Progress Note PATIENT NAME: Chidi Musa DATE OF SERVICE: September 08, 2024 TIME: 10:05 AM PATIENT IDENTITY VERIFICATION COMPLETED USING TWO (2) IDENTIFIERS: Name and Date of confirmedby patient verbally. FALL SCREENING: Has the patient had 2 falls in the last year or 1 fall with injury or currently using an Ambulatory Assistive Device (Walker, Cane, Wheelchair, Crutches, etc.)? No PATIENT GENDER DATA: Female. status: : No status: NO. PATIENT RELEVANT IMPLANT DATA REVIEWED: Not Applicable PATIENT PRESENTS WITH AN IMPLANTABLE OR ATTACHED HEATER TENDER: No RADIOLOGY DEPARTMENT: General X-ray: Exam(s) Completed: Spine X-Ray(s): Cervical AP / LAT / FLEX-EXT PERIPHERAL IV DATA: Not applicable SIGNED BY: RT Jose Manuel(R) September 08, 2024 10:05 AM documented in this encounterThe [facility]12-10-2024 NoteHNO ID: [id number] Author: DEBBY ROMANO RT(R) Service: Radiology Author Type: Technologist Type: Progress Notes Filed: 09/08/2024 10:06 Note Text: Summary: xray Radiology Service Progress Note PATIENT NAME: Chidi Musa DATE OF SERVICE: September 08, 2024 TIME: 10:05 AM PATIENT IDENTITY VERIFICATION COMPLETED USING TWO (2) IDENTIFIERS: Name and Date of confirmed by patient verbally. FALL SCREENING: Has the patient had 2 falls in the last year or 1 fall with injury or currently using an Ambulatory Assistive Device (Walker, Cane, Wheelchair, Crutches, etc.)? No PATIENT GENDER DATA: Female. status: : No status: NO. PATIENT RELEVANT IMPLANT DATA REVIEWED: Not Applicable PATIENT PRESENTS WITH AN IMPLANTABLE OR ATTACHED HEATER TENDER: No RADIOLOGY DEPARTMENT: General X-ray: Exam(s) Completed: Spine X-Ray(s): Cervical AP / LAT / FLEX-EXT PERIPHERAL IV DATA: Not applicable SIGNED BY: RT Jose Manuel(R) September 08, 2024 10:05 [facility]12-10-2024 NoteHNO ID: [id number] Author: MAYANK SHEEHAN MD Service: ? Author Type: Physician Type: Progress Notes Filed: 09/08/2024 09:16 Note Text: Mayank Sheehan MD [facility] Orthopaedic Surgery - Orthopaedic Spine Surgeon [address] [facility], [facility] [address], [facility] [address], [place] [address] Phone: [phone] ([phone]) FAX: [phone] Spine Surgery Outpatient Note Service Date: 09/08/2024 Referring Provider: [facility] [address] Chief Complaint: Lumbar back pain with radiation to the bilateral buttocks lateral thighs History of Present Illness Chidi Musa is a 59 year old female with medical history as below presenting alone as a new patient today. Chidi Musa presents with primary complaint of lumbar back pain with radiation to the bilateral buttocks lateral thighs. Patient reports that symptoms have been present for the past 3 years. She was previously seeing a spine surgeon in [place] who recommended multilevel decompression and fusion for symptoms of neurogenic claudication. However, surgeon reportedly moved and patient has not had surgery. She endorses pain in lumbar spine that radiates into the buttocks and lateral thighs and is worse with activity. Pain is relieved with sitting down. Additionally endorses generalized feeling weakness in the bilateral upper extremities as well as numbness and paresthesias in the bilateral hands. Has history of ACDF (uncertain of level) after having a near fall or head in 2017. Surgery was performed at [facility]. Additionally endorses difficulty with dexterity and balance that has been progressively worsening. No history of lumbar surgery. Summary of Symptoms Pain Location: Cervical and lumbar spine Radiation of Pain: Bilateral upper extremities, bilateral buttocks lateral thighs Weakness: Bilateral extremities Dexterity Issues: Yes Imbalance: Yes Falls: Yes Bowel/Bladder Dysfunction: No Prior Conservative Treatment Physical Therapy: Yes (>1 year ago) Medications: Gabapentin, tramadol Pain Management: No (previously effective, but no relief with most recent injection) Injections: Yes Surgery: ACDF (uncertain of surgeon name or level) Other: No The following portions of the patient's history were reviewed and updated as appropriate: allergies, current medications, past family history, past medical history, past social history, past surgical history and problem list. There is no problem list on file for this patient. History reviewed. No pertinent past medical history. History reviewed. No pertinent surgical history. History reviewed. No pertinent family history. Social History Tobacco Use Smoking status: Former Current packs/day: 1.00 Average packs/day: 1 pack/day for 38.0 years (38.0 ttl pk-yrs) Types: Cigarettes Smokeless tobacco: Never Substance Use Topics Alcohol use: Yes Drug use: Not Currently ALLERGIES No Known Allergies Medications: aspirin 81 mg cap Take by mouth. albuterol HFA (PROVENTIL HFA, VENTOLIN HFA) 90 mcg/actuation inhaler Inhale 1-2 Puffs as instructed every 6 hours as needed for wheezing/shortness of breath. atorvastatin (LIPITOR) 40 mg tablet Take 40 mg by mouth once daily. clopidogrel (PLAVIX) 75 mg tablet Take 1 tablet by mouth every afternoon. escitalopram oxalate (LEXAPRO) 10 mg tablet Take 1 tablet by mouth every afternoon. ezetimibe (ZETIA) 10 mg tablet Take 1 tablet by mouth every afternoon. fluticasone-salmeterol (ADVAIR, WIXELA) 250-50 mcg/dose inhaler Inhale 1 Inhalation as instructed two times a day. gabapentin (NEURONTIN) 300 mg capsule Take 600 mg by mouth three times a day. metoprolol succinate ER (TOPROL XL) 25 mg 24 hr tablet Take 25 mg by mouth once daily. pantoprazole DR (PROTONIX) 40 mg tablet Take 1 tablet by mouth every afternoon. traMADol (ULTRAM) 50 mg tablet Take 50 mg by mouth every 6 hours as needed for pain. SITagliptin-metFORMIN (JANUMET XR) 50-1,000 mg TM24 Take 2 tablets by mouth once daily. tiotropium (SPIRIVA) 18 mcg inhalation capsule Inhale 18 mcg as instructed once daily. Physical Examination: Vital Signs: Ht 157.5 cm (5' 2) Wt 64.4 kg (142 lb) BMI 25.97 kg/m? General Appearance: Well nourished, well developed, and no apparent distress. Neuro/Psych: Patient oriented to person, place, and time. Mood pleasant. Benign affect. Cardiovascular: Palpable pulses. No edema noted. No varicosities. Skin: Head, neck, trunk, and extremities dry, intact and without lesions. Lymphatics: No palpable nodes in cervical or axillae areas. Groin exam deferred. Musculoskeletal: No tenderness to palpation in the midline over the spinous processes or in the paraspinal musculature. Well-healed right anterior cervical incision. Muscle Tone and Bulk: Symmetrical in the upper AND lower extremities. Sensory: Sensation intact to light touch in C5-T1 and L1-S1 dermato (more content not included)...[facility]12-10-2024 History of Present illness Narrative* Mayank Sheehan MD - 09/08/2024 9:12 AM EST Images from the original note were not included. Mayank Sheehan MD [facility] Orthopaedic Surgery - Orthopaedic Spine Surgeon [address] [facility], [address], [address], [place] [address], [place] [address] Phone: [phone] ([phone]) FAX: [phone] Spine Surgery Outpatient Note Service Date: 09/08/2024 Referring Provider: Romeo Stafford [address] [place] [address] [facility] [address] Chief Complaint: Lumbar back pain with radiation to the bilateral buttocks lateral thighs History of Present Illness Chidi Musa is a 59 year old female with medical history as below presenting alone as a new patient today. Chidi Musa presents with primary complaint of lumbar back pain with radiation to the bilateral buttocks lateral thighs. Patient reports that symptoms have been present for the past 3 years. Shewas previously seeing a spine surgeon in [place] who recommended multilevel decompression and fusion for symptoms of neurogenic claudication. However, surgeon reportedly moved and patient has not hadsurgery. She endorses pain in lumbar spine that radiates into the buttocks and lateral thighs and is worse with activity. Pain is relieved with sitting down. Additionally endorses generalized feelingweakness in the bilateral upper extremities as well as numbness and paresthesias in the bilateral hands. Has history of ACDF (uncertain of level) after having a near fall or head in 2017. [facility]. Additionally endorses difficulty with dexterity and balance that has been progressively worsening. No history of lumbar surgery. Summary of Symptoms Pain Location: Cervical and lumbar spine Radiation of Pain: Bilateral upper extremities, bilateral buttocks lateral thighs Weakness: Bilateral extremities Dexterity Issues: Yes Imbalance: Yes Falls: Yes Bowel/Bladder Dysfunction: No Prior Conservative Treatment Physical Therapy: Yes (>1 year ago) Medications: Gabapentin, tramadol Pain Management: No (previously effective, but no relief with most recent injection) Injections: Yes Surgery: ACDF (uncertain of surgeon name or level) Other: No The following portions of the patient's history were reviewed and updated as appropriate: allergies, current medications, past family history, past medical history, past social history, past surgicalhistory and problem list. There is no problem list on file for this patient. History reviewed. No pertinent past medical history. History reviewed. No pertinent surgical history. History reviewed. No pertinent family history. Social History Tobacco Use Smoking status: Former Current packs/day: 1.00 Average packs/day: 1 pack/day for 38.0 years (38.0 ttl pk-yrs) Types: Cigarettes Smokeless tobacco: Never Substance Use Topics Alcohol use: Yes Drug use: Not Currently ALLERGIES No Known Allergies Medications: aspirin 81 mg cap Take by mouth. albuterol HFA (PROVENTIL HFA, VENTOLIN HFA) 90 mcg/actuation inhaler Inhale 1-2 Puffs as instructedevery 6 hours as needed for wheezing/shortness of breath. atorvastatin (LIPITOR) 40 mg tablet Take 40 mg by mouth once daily. clopidogrel (PLAVIX) 75 mg tablet Take 1 tablet by mouth every afternoon. escitalopram oxalate (LEXAPRO) 10 mg tablet Take 1 tablet by mouth every afternoon. ezetimibe (ZETIA) 10 mg tablet Take 1 tablet by mouth every afternoon. fluticasone-salmeterol (ADVAIR, WIXELA) 250-50 mcg/dose inhaler Inhale 1 Inhalation as instructed two times a day. gabapentin (NEURONTIN) 300 mg capsule Take 600 mg by mouth three times a day. metoprolol succinate ER (TOPROL XL) 25 mg 24 hr tablet Take 25 mg by mouth once daily. pantoprazole DR (PROTONIX) 40 mg tablet Take 1 tablet by mouth every afternoon. traMADol (ULTRAM) 50 mg tablet Take 50 mg by mouth every 6 hours as needed for pain. SITagliptin-metFORMIN (JANUMET XR) 50-1,000 mg TM24 Take 2 tablets by mouth once daily. tiotropium (SPIRIVA) 18 mcg inhalation capsule Inhale 18 mcg as instructed once daily. Physical Examination: Vital Signs: Ht 157.5 cm (5' 2) Wt 64.4 kg (142 lb) BMI 25.97 kg/m General Appearance: Well nourished, well developed, and no apparent distress. Neuro/Psych: Patient oriented to person, place, and time. Mood pleasant. Benign affect. Cardiovascular: Palpable pulses. No edema noted. No varicosities. Skin: Head, neck, trunk, and extremities dry, intact and without lesions. Lymphatics: No palpable nodes in cervical or axillae areas. Groin exam deferred. Musculoskeletal: No tenderness to palpation in the midline over the spinous processes or in the paraspinal musculature. Well-healed right anterior cervical incision. Muscle Tone and Bulk: Symmetrical in the upper & lower extremities. Sensory: Sensation intact to light touch in C5-T1 and L1-S1 dermatomes. Motor: Upper Extremities Right Left Deltoid (C5) 5 5 Biceps (C6) 5 4 Triceps (C7) 5 4 First Assistant (C8) 5 5 Interossei (T1) 5 5 Lower Extremities Right Left Psoas (L2) 5 5 Quadriceps (L3) 5 5 Dorsiflexion (L4) 5 5 EHL (L5) 5 5 Plantarflexion (S1) 5 5 Gait: Unable to perform tandem gait. Long Tract Signs: No clonus. Ruben's present bilaterally. Reflexes: Symmetric, brisk bilateral patellar and Achilles reflexes. Imaging AP, lateral, and lateral flexion/extension x-rays of the lumbar spine were obtained and independently interpreted. Image demonstrates maintained laminar coronal and sagittal plane. Disc degeneration with disc height loss and facet arthrosis L4-S1. Grade 1 L4-L5 spondylolisthesis. Assessment 59 year old female who presents with cervical myelopathy and lumbar spinal stenosis with neurogenicclaudication. Encounter Diagnosis ICD-10-CM 1. Cervical myelopathy (HCC) G95.9 XR CERV OTHER 4V AP/LAT/FLX/EXT 2. Spinal stenosis of lumbar region with neurogenic claudication M48.062 3. Spinal stenosis of cervical region M48.02 MRI CERVICAL SPINE WO IVCON Plan The clinical and radiographic findings as well as the risks, benefits, and alternatives of treatment have been reviewed in detail with the patient. We had a discussion of symptoms, examination, and imaging findings. Will continue to monitor patient for Cervical myelopathy (hcc) (primary encounter diagnosis) Spinal stenosis of lumbar region with neurogenic claudication Spinal stenosis of cervical region, patient to schedule visit as per follow up discussed. A summary of my recommendations is as follows: MRI of the cervical spine was ordered today. MRI will provide diagnostic evaluation of neural compression contributing to symptoms and documented examination findings. MRI results will help guide further conservative treatment measures including epidural steroid injections versus operative intervention. X-rays of the cervical spine ordered. Follow-up after completion of imaging. Advised to call the office if symptoms worsen or new symptoms develop. Patient expressed understanding and is in agreement with plan. Mayank Sheehan MD Orthopaedic Spine Surgery This note was generated all or in part using [employer] voice recognition software. Please excuse any minor errors in spelling, grammar, or punctuation. * Hina Torres MA - 09/08/2024 8:51 AM EST 59 y/o female presents to office with concerns of low back pain that has been present of 3+ years. She reports that she was receiving ELKIN that was working. [place] She hasn't completed recent PT. She reports that the pain is causing difficulty walking. She additionally adds that a few months ago she dropped a mirror on her head and has had neck pain as well. She admits she didn't inform us of this when the appointment was being made. Xrays of lumbar spine completed 09/04/2024. documented in this encounterThe [facility]12-10-2024 NoteHNO ID: [id number] Author: HINA TORRES MA Service: ? Author Type: Public Transportation Inspector Type: Progress Notes Filed: 09/08/2024 09:16 Note Text: 59 y/o female presents to office with concerns of low back pain that has been present of 3+ years. She reports that she was receiving ELKIN that was working. Her last injection was 05/2022 [place] She hasn't completed recent PT. She reports that the pain is causing difficulty walking. She additionally adds that a few months ago she dropped a mirror on her head and has had neck pain as well. She admits she didn't inform us of this when the appointment was being made. Xrays of lumbar spine completed 09/04/2024.[facility]12-06-[facility] History of Present illness Narrative* Claus Levi, RT(R) - 09/04/2024 8:00 AM EST Radiology Service Progress Note PATIENT NAME: Chidi Musa DATE OF SERVICE: September 04, 2024 TIME: 8:05 AM PATIENT IDENTITY VERIFICATION COMPLETED USING TWO (2) IDENTIFIERS: Name and Date of confirmedby patient verbally. FALL SCREENING: Has the patient had 2 falls in the last year or 1 fall with injury or currently using an Ambulatory Assistive Device (Walker, Cane, Wheelchair, Crutches, etc.)? No PATIENT GENDER DATA: Female. status: : No status: NO. PATIENT RELEVANT IMPLANT DATA REVIEWED: Yes PATIENT PRESENTS WITH AN IMPLANTABLE OR ATTACHED HEATER TENDER: No RADIOLOGY DEPARTMENT: General X-ray: Exam(s) Completed: Spine X-Ray(s): Lumbar AP / LAT / L5-S1 / FLEX-EXT PERIPHERAL IV DATA: Not applicable SIGNED BY: RT Risa(R) September 04, 2024 8:05 AM documented in this encounterThe [facility]12-06-2024 NoteHNO ID: [id number] Author: CLAUS LEVI RT(R) Service: ? Author Type: Disk Recordist Type: Progress Notes Filed: 09/04/2024 08:18 Note Text: Radiology Service Progress Note PATIENT NAME: Chidi Musa DATE OF SERVICE: September 04, 2024 TIME: 8:05 AM PATIENT IDENTITY VERIFICATION COMPLETED USING TWO (2) IDENTIFIERS: Name and Date of confirmed by patient verbally. FALL SCREENING: Has the patient had 2 falls in the last year or 1 fall with injury or currently using an Ambulatory Assistive Device (Walker, Cane, Wheelchair, Crutches, etc.)? No PATIENT GENDER DATA: Female. status: : No status: NO. PATIENT RELEVANT IMPLANT DATA REVIEWED: Yes PATIENT PRESENTS WITH AN IMPLANTABLE OR ATTACHED HEATER TENDER: No RADIOLOGY DEPARTMENT: General X-ray: Exam(s) Completed: Spine X-Ray(s): Lumbar AP / LAT / L5-S1 / FLEX-EXT PERIPHERAL IV DATA: Not applicable SIGNED BY: RT Risa(R) September 04, 2024 8:05 [facility]12-05-2024 Telephone encounter Note* Telephone Encounter - Rachael Pace - 09/03/2024 8:31 AM EST Spoke to the patient to let her know that Dr. Sheehan would like for her to have xrays done prior to her appointment on 09/08/24. I let her know that if these are not completed we will have to reschedule her appointment. She understood and said she will have them done at [facility] prior to her appointment. [facility]12-[facility] Miscellaneous Notes* Telephone Encounter - Rachael Pace - 09/03/2024 8:31 AM EST Spoke to the patient to let her know that Dr. Sheehan would like for her to have xrays done prior to her appointment on 09/08/24. I let her know that if these are not completed we will have to reschedule her appointment. She understood and said she will have them done at [facility] prior to her appointment. documented in this encounterThe [facility]12-04-2024 [facility] Medical Records Department [address] [place] [address] History Physical Exam 09/02/24 1024 MR#: [id number] Acct: [id number] Name: CHIDI MUSA Rep #: [id number] : 1965 59 From: Alejandro Quintana MD PCP: Josephine Walter, PATHOLOGY TECHNOLOGIST-C [place] [facility] [place]: [facility] HPI - General HPI Narrative CHIDI MSUA, is a 59 F who presents with prior left common iliac artery stent with stenosis proximal to leading edge adjacent to bifurcation. She presents for angiogram with possible intervention to preserve stent patency [facility] Medical History Aortoiliac occlusive disease Atherosclerosis of [place] arteries of extremities with rest pain, left leg COPD (chronic obstructive pulmonary disease) Coronary artery disease CALVIN (generalized anxiety disorder) Hyperlipidemia Lumbar foraminal stenosis MDD (major depressive disorder) AVE (obstructive sleep apnea) Peripheral neuropathy Type 2 diabetes mellitus Home Medications ???Medication ???Instructions ???Recorded ???Last Taken ???Type mometasone 220 mcg/actuation(60 220 mcg inhalation BID 07/03/14 Unknown History doses) breath activated powder inhaler (Asmanex Twisthaler) sitagliptin phosphate 50 1 ea PO BID 07/03/14 09/01/24 History mg-metformin 500 mg tablet (Janumet) atorvastatin 40 mg tablet 40 mg PO DAILY 05/12/24 Unknown History gabapentin 600 mg tablet 600 mg PO DAILY 05/12/24 Unknown History methocarbamol 500 mg tablet 500 mg PO QHS 05/12/24 Unknown History metoprolol succinate 25 mg capsule 25 mg PO DAILY 05/12/24 Unknown History sprinkle, ext. release 24 hr pantoprazole 40 mg tablet,delayed 40 mg PO DAILY 05/12/24 Unknown History release tiotropium bromide 2.5 2 puff inhalation DAILY 05/12/24 Unknown History mcg/actuation mist for inhalation (Spiriva Respimat) albuterol sulfate 90 mcg/actuation 1 inh inhalation ONCE 05/20/24 Unknown History aerosol inhaler clopidogrel 75 mg tablet 75 mg PO QDAY 05/20/24 09/01/24 History empagliflozin 10 mg tablet 10 mg PO DAILY 05/20/24 09/01/24 History (Jardiance) lidocaine 5 % topical patch 1 patch topical DAILY 05/20/24 Unknown History tramadol 50 mg tablet 50 mg PO DAILY 05/20/24 Unknown History aripiprazole 5 mg tablet 5 mg PO QDAY 08/11/24 Unknown History escitalopram oxalate 20 mg tablet 20 mg PO QDAY 08/11/24 Unknown History hydroxyzine HCl 25 mg tablet 25 mg PO TID 08/11/24 Unknown History Allergy/AdvReac Type Severity Reaction Status Date / Time No Known Allergies Allergy Verified 08/11/24 10:18 Family History Mother Heart disease Father Cancer Surgical History History of cardiac catheterization History of carotid endarterectomy History of cholecystectomy History of colonoscopy History of hysterectomy History of oophorectomy History of spinal surgery Hx of CABG Presence of stent in coronary artery S/P insertion of iliac artery stent ( 05/2022) Social History Smoking Status: Former smoker Tobacco: How many years used: 38 how long ago did patient quit smokin months Vital Signs Vital Signs Vital Signs: Weight Weight: 146 lb Body Mass Index (BMI) 25.0 Physical Exam Const alert, oriented x3, no apparent distress and healthy appearing General Appearance: cooperative; Negative for combative or lethargic Orientation / Consciousness: awake Exam Limitations: no limitations HEENT Head and Scalp: normocephalic and atraumatic Eyes EOMs intact bilaterally General Eye: normal appearance of both eyes Neck full ROM General: trachea midline Resp normal respiratory effort and no use of accessory muscles Effort and Inspection: Negative for labored, stridor or audible wheezes Cardio regular rate and regular rhythm Back/Spine Cervical Spine: cervical ROM normal Extremity full ROM, normal capillary refill and no clubbing, cyanosis or edema Skin no rashes or lesions noted and no wounds Neuro oriented x3, CN's II-XII intact bilaterally, no focal motor deficits and no sensory deficits noted Psych thought process normal, cooperative, affect normal, speech normal and activity/motor behavior normal Results Lab / Micro Data 09/02/24 08:59 09/02/24 08:59 Labs: Laboratory Results - last 24 hr 09/02/24 08:59: WBC 9.2, RBC 5.53 H, Hgb 16.7 H, Hct 50.8 H, MCV 91.9, MCH 30.2, MCHC 32.9, RDW Std Deviation 42.0, RDW Coeff of [place] 12.4, Plt Count 225, MPV 9.6, Immature Gran % (Auto) 0.800, Neut % (Auto) 60.8, Lymph % (Auto) 28.1, [place] % (Auto) 8.5, Eos % (Auto) 0.8, Baso % (Auto) 1.0, Absolute Neuts (auto) 5.6, Absolute Lymphs (auto) 2.5 (more content not included)... [facility]10-26-2024 Note. MICRO - Microbiology PROCEDURE: Stool Culture [^1 *1] SOURCE: Stool BODY SITE: COLLECTED DATE/TIME: 07/22/2024 13:25 EDT RECEIVED DATE/TIME: 07/22/2024 19:32 EDT START DATE/TIME: 07/22/2024 19:32 EDT FREE TEXT SOURCE: FINAL REPORTS Final Report [] Verified Date/Time/Personnel: 07/25/2024 08:20 EDT Normal stool rosa present. Salmonella: Negative Shigella: Negative Campylobacter: Negative PRELIMINARY REPORTS Preliminary Report [] Verified Date/Time/Personnel: 07/24/2024 08:58 EDT Normal stool rosa present. Negative for stool pathogens at 48 hours. Final report to follow. Interpretive Data ^1: Culture Stool Requests for alternative pathogens including Yersinia, E. coli 0157, C. difficile toxin, Rotavirus, Giardia and parasites require specific requests. Performing Locations *1: This test was performed at: [address], [address] [place], [place] [id number] Note. MICRO - Microbiology PROCEDURE: Shiga Toxins 1 and 2 [[id number]: [id number] ^1 *1] SOURCE: Stool BODY SITE: COLLECTED DATE/TIME: 07/22/2024 19:32 EDT RECEIVED DATE/TIME: 07/22/2024 19:32 EDT START DATE/TIME: 07/22/2024 19:32 EDT FREE TEXT SOURCE: FINAL REPORTS Final Report [] Verified Date/Time/Personnel: 07/23/2024 13:06 EDT Absence of Shiga toxin 1 Absence of Shiga toxin 2 Order Comments O1: Shiga Toxins 1 and 2 ordered by lab as part of Culture Stool Panel Interpretive Data ^1: Shiga Toxins 1 and 2 Testing performed by immunochromatography. Performing Locations *1: This test was performed at: [address], [address] [place], [place] [id number] History of Present illness Narrative* Sanjay Asencio PA - 03/24/2024 3:51 PM EDT 58-year-old female presents for bee sting to left foot. Patient states that she stepped on a bee about an hour ago. She is having shooting pains to her foot up into her leg. She states she is unable to bear weight on the foot due to pain. She states she is in severe pain. She denies any chest pain,shortness of breath, tongue or throat swelling. She denies any vomiting or diarrhea, no abdominal pa in, no fevers. She has been stung by bee in the past without a reaction. Patient has a small red spot on the bottom of her foot in the area of inoculation. She has several other red spots on the leftlower leg. Patient is very uncomfortable, I am unable to even touch her foot. She also states that she feels like her mouth is a little itchy. Based on severe pain and mouth itching, did recommend evaluation in the emergency room. Patient declines EMS. She will go to ER now. [facility] Future Appointments Appointment Date:06/03/2024 08:00:00 AM Scheduled Provider:JOSEPHINE WALTER Location:[facility] Appointment Type:PC OV Future Scheduled Tests Laboratory* Albumin/Creatinine Ratio, Random Urine 03/13/24 [facility] Evaluation + Plan note Future Appointments Appointment Date:09/02/2024 08:30:00 AM Scheduled Provider:JOSEPHINE WALTER Location:[facility] Appointment Type:PC OV Future Scheduled Tests Laboratory* Albumin/Creatinine Ratio, Random Urine 03/13/24 Radiology* CT Angio Abd/Pelvis/Bilat Lower Extrem 05/28/24 * CT Angio Abd/Pelvis/Bilat Lower Extrem 04/08/24 [facility] Evaluation + Plan note Future Appointments Appointment Date:09/02/2024 08:30:00 AM Scheduled Provider:JOSEPHINE WALTER Location:[facility] Appointment Type:PC OV Diagnostic Tests Pending * Shiga Toxins 1 and 2 07/22/24 * Stool Culture 07/22/24 Future Scheduled Tests Laboratory* Albumin/Creatinine Ratio, Random Urine 03/13/24 Radiology* CT Angio Abd/Pelvis/Bilat Lower Extrem 05/28/24 * CT Angio Abd/Pelvis/Bilat Lower Extrem 04/08/24 [facility] Evaluation + Plan note Future Appointments Appointment Date:05/24/2025 10:00:00 AM Scheduled Provider:JOSEPHINE WALTER Location:[facility] Appointment Type:PC OV Future Scheduled Tests Laboratory* A1C Hemoglobin 12/30/24 * Complete Blood Count 12/30/24 * Lipid Profile 12/30/24 * Complete Metabolic Panel 12/30/24 Radiology* CT Angio Abd/Pelvis/Bilat Lower Extrem 05/28/24 [facility] Evaluation note* Diagnosis Procedure not carried out- Primary Procedure not carried out for other reasons [facility] Diagnosis Low back pain, unspecified back pain laterality, unspecified chronicity, unspecified whether sciatica present [facility] Diagnosis Cervical myelopathy (HCC)- Primary Cervical spondylosis with myelopathy Spinal stenosis of lumbar region with neurogenic claudication Spinal stenosis, lumbar region, with neurogenic claudication Spinal stenosis of cervical region Spinal stenosis in cervical region [facility] Diagnosis Spinal stenosis of cervical region Spinal stenosis in cervical region [facility] Diagnosis Lumbosacral spondylosis without myelopathy- Primary Cervical spondylosis with myelopathy [facility]* Diagnosis Cervical myelopathy (HCC)- Primary Cervical spondylosis with myelopathy 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 Spinal stenosis of cervical region Spinal stenosis in cervical region [facility] Diagnosis Cervical myelopathy (HCC)- Primary Cervical spondylosis with myelopathy 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 Spinal stenosis of cervical region Spinal stenosis in cervical region [facility]* Diagnosis Preop testing Preoperative examination, unspecified Postprocedural hypoinsulinemia Postsurgical hypoinsulinemia Unspecified abnormalities of breathing Preop testing- Primary Preoperative examination, unspecified Postprocedural hypoinsulinemia Postsurgical hypoinsulinemia Unspecified abnormalities of breathing Cervical myelopathy (HCC) Cervical spondylosis with myelopathy Spinal stenosis, cervical region Type 2 diabetes mellitus without complication, without long-term current use of insulin (HCC) Gastroesophageal reflux disease, unspecified whether esophagitis present Dysphagia, unspecified type Unilateral vocal cord paralysis Paralysis of vocal cords or larynx, unspecified Coronary artery disease involving [place] coronary artery of [place] heart without angina pectoris PAD (peripheral artery disease) (HCC) Peripheral vascular disease, unspecified Hypertension, unspecified type Hyperlipidemia, unspecified hyperlipidemia type Cervical myelopathy (HCC) Cervical spondylosis with myelopathy 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 Spinal stenosis in cervical region [facility]* Diagnosis Cervical spondylosis with myelopathy Lumbosacral spondylosis without myelopathy [facility] Cervical myelopathy (HCC) Cervical spondylosis with myelopathy [facility] Diagnosis Status post cervical spinal fusion- Primary Arthrodesis status Cervical myelopathy (HCC) Cervical spondylosis with myelopathy [facility] Diagnosis S/P cervical spinal fusion Arthrodesis status [facility]* Diagnosis Status post cervical spinal fusion- Primary Arthrodesis status [facility] Diagnosis Status post cervical spinal fusion- Primary Arthrodesis status Chronic right shoulder pain Pain in joint, shoulder region [facility] Diagnosis Status post cervical spinal fusion Arthrodesis status Chronic right shoulder pain Pain in joint, shoulder region [facility] Diagnosis S/P cervical spinal fusion Arthrodesis status [facility] Diagnosis Status post cervical spinal fusion Arthrodesis status Chronic right shoulder pain Pain in joint, shoulder region [facility] Diagnosis Left shoulder pain, unspecified chronicity- Primary Traumatic tear of right rotator cuff, unspecified tear extent, initial encounter [facility] Diagnosis Traumatic tear of right rotator cuff, unspecified tear extent, initial encounter- Primary Adhesive capsulitis of right shoulder Adhesive capsulitis of shoulder [facility] Diagnosis Chronic right shoulder pain- Primary Pain in joint, shoulder region S/P cervical spinal fusion Arthrodesis status [facility] Diagnosis Chronic right shoulder pain- Primary Pain in joint, shoulder region S/P cervical spinal fusion Arthrodesis status [facility] Diagnosis Chronic right shoulder pain- Primary Pain in joint, shoulder region S/P cervical spinal fusion Arthrodesis status [facility] Diagnosis Chronic right shoulder pain- Primary Pain in joint, shoulder region S/P cervical spinal fusion Arthrodesis status [facility] Diagnosis Chronic right shoulder pain- Primary Pain in joint, shoulder region S/P cervical spinal fusion Arthrodesis status [facility] Diagnosis Chronic right shoulder pain- Primary Pain in joint, shoulder region Cervical spondylosis with myelopathy Myofascial pain Mylagia and myositis, unspecified Adhesive capsulitis of right shoulder Adhesive capsulitis of shoulder Lumbosacral spondylosis without myelopathy Chronic right shoulder pain Pain in joint, shoulder region [facility] Diagnosis Status post cervical spinal fusion- Primary Arthrodesis status Cervical myelopathy (HCC) Cervical spondylosis with myelopathy 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 Adverse effect of treatment, initial encounter Adhesive capsulitis of right shoulder Adhesive capsulitis of shoulder Traumatic tear of right rotator cuff, unspecified tear extent, initial encounter Chronic right shoulder pain Pain in joint, shoulder region Chronic right shoulder pain Pain in joint, shoulder region [facility] Diagnosis Chronic right shoulder pain- Primary Pain in joint, shoulder region S/P cervical spinal fusion Arthrodesis status Chronic right shoulder pain Pain in joint, shoulder region [facility] Diagnosis Chronic right shoulder pain- Primary Pain in joint, shoulder region S/P cervical spinal fusion Arthrodesis status Chronic right shoulder pain Pain in joint, shoulder region [facility]* Diagnosis Cervical spondylosis with myelopathy Lumbosacral spondylosis without myelopathy Chronic right shoulder pain Pain in joint, shoulder region [facility]* Diagnosis Adverse effect of treatment, initial encounter Chronic right shoulder pain Pain in joint, shoulder region [facility] Diagnosis Adverse effect of treatment, initial encounter Chronic right shoulder pain Pain in joint, shoulder region [facility]* Diagnosis Status post cervical spinal fusion- Primary Arthrodesis status Chronic right shoulder pain Pain in joint, shoulder region [facility]* Diagnosis Lumbar radiculopathy- Primary Thoracic or lumbosacral neuritis or radiculitis, unspecified Cervical spondylosis with myelopathy Chronic right shoulder pain Pain in joint, shoulder region Adhesive capsulitis of right shoulder Adhesive capsulitis of shoulder Myofascial pain Mylagia and myositis, unspecified Cervical postlaminectomy syndrome Postlaminectomy syndrome, cervical region Lumbar spondylosis Lumbosacral spondylosis without myelopathy Lumbosacral spondylosis without myelopathy Lumbar spondylolysis Acquired spondylolisthesis Spondylolisthesis of lumbar region Acquired spondylolisthesis Chronic right shoulder pain Pain in joint, shoulder region [facility]* Diagnosis Lumbosacral spondylosis without myelopathy- Primary Lumbosacral spondylosis with radiculopathy documented in this encounter [facility] note* Diagnosis Spondylolisthesis of lumbar region Acquired spondylolisthesis Lumbosacral spondylosis with radiculopathy documented in this encounter [facility] note* Diagnosis Onset Date Resolution Status Admit Date Anxiety chronic August 04, 2025 7:35am Asthma chronic August 04, 2025 7:35am MDD (major depressive disorder) chronic August 04 7:35am AVE (obstructive sleep apnea) chroni c August 04, 2025 7:35am Smoking greater than 20 pack years chronic August 04 7:35am [facility] Work Phone: Hospital course Narrative No data available for this section [facility] Hospital Discharge instructions No data available for this section [facility] Progress note No data available for this section [facility] Reason for referral (narrative)* Diagnostic Procedure Only (Routine) - Closed Specialty Diagnoses / Procedures Referred By Contac t Referred To Contact MR IMAGING Diagnoses Spinal stenosis of cervical region Procedures MRI CERVICAL SPINE [facility] MRI SPINAL CANAL CERVICAL W/O CONTRAST Mayank Reyes MD [address] [place] [address] [place] [id number] Referral ID Status Reason Start Date Expiration Date V isits Requested Visits Authorized [id number] Closed Auto-Generate d Referral 09/11/2024 11/10/2024 1 1 [facility] for referral (narrative)[facility] for [facility] Reason for visit Narrative* Diagnostic Procedure Only (Routine) - Closed Specialty Diagnoses / Procedures Referred By Contac t Referred To Contact XR IMAGING Diagnoses Low back pain, unspecified back pain laterality, unspecified chronicity, unspecified whether sciatica present Procedures XR LUMBAR MOTION 4V AP/LAT/ FLEX/EXT RADEX SPINE LUMBOSACRAL MINIMUM 4 VIEWS Mayank Sheehan MD [address] [place] [address] [place] [address] Referral ID Status Reason Start Date Expiration Date V isits Requested Visits Authorized [id number] Closed Auto-Generate d Referral 09/04/2024 09/29/2024 1 1 [facility] for visit Narrative* Diagnostic Procedure Only (Routine) - Closed Specialty Diagnoses / Procedures Referred By Contac t Referred To Contact XR IMAGING Diagnoses Cervical myelopathy (HCC) Procedures XR CERV OTHER 4V AP/LAT/FLX/EXT RADEX SPINE CERVICAL 4 OR 5 VIEWS Mayank Sheehan MD [address] [place], [place] [id number] [place] [address] Referral ID Status Reason Start Date Expiration Date V isits Requested Visits Authorized [id number] Closed Auto-Generate d Referral 09/08/2024 09/29/2024 1 1 [facility] for visit Narrative* Diagnostic Procedure Only (Routine) - Closed Specialty Diagnoses / Procedures Referred By Contac t Referred To Contact MR IMAGING Diagnoses Spinal stenosis of cervical region Procedures MRI CERVICAL SPINE WO IVCON MRI SPINAL CANAL CERVICAL W/O CONTRAST MATRL Mayank Sheehan MD [address] [place] [address] [place] [address] Referral ID Status Reason Start Date Expiration Date V isits Requested Visits Authorized [id number] Closed Auto-Generate d Referral 09/11/2024 11/10/2024 1 1 [facility] for visit Narrative* Diagnostic Procedure Only (Routine) - Closed Specialty Diagnoses / Procedures Referred By Contac t Referred To Contact XR IMAGING Diagnoses S/P cervical spinal fusion Procedures XR CERV GENERAL 2V AP/LAT RADEX SPINE CERVICAL 2 OR 3 VIEWS Mayank Sheehan MD [address] [place] [id number] Phone: tel: fax: [place] [address] Referral ID Status Reason Start Date Expiration Date V isits Requested Visits Authorized [id number] Closed Auto-Generate d Referral 12/09/2024 01/08/2026 1 1 [facility] for visit Narrative* Diagnostic Procedure Only (Routine) - Closed Specialty Diagnoses / Procedures Referred By Contac t Referred To Contact XR IMAGING Diagnoses Status post cervical spinal fusion Chronic right shoulder pain Procedures XR SHOULDER GENERAL 3V OR MORE AP/TRUE AP/OTHER RIGHT RADEX SHOULDER COMPLETE MINIMUM 2 VIEWS Mayank Sheehan MD [address] [place] [address] Phone: tel: fax: [place] [address] Referral ID Status Reason Start Date Expiration Date V isits Requested Visits Authorized [id number] Closed Auto-Generate d Referral 01/12/2025 02/11/2026 1 1 [facility] for visit Narrative* Diagnostic Procedure Only (Routine) - Closed Specialty Diagnoses / Procedures Referred By Contac t Referred To Contact XR IMAGING Diagnoses S/P cervical spinal fusion Procedures XR CERV GENERAL 2V AP/LAT RADEX SPINE CERVICAL 2 OR 3 VIEWS Mayank Sheehan MD [address] [place] [address] Phone: tel: fax: [place] [address] Referral ID Status Reason Start Date Expiration Date V isits Requested Visits Authorized [id number] Closed Auto-Generate d Referral 01/05/2025 02/03/2026 1 1 [facility] for visit Narrative* MRI/CT (Routine) - Closed Specialty Diagnoses / Procedures Referred By Contac t Referred To Contact MR IMAGING Diagnoses Adverse effect of treatment, initial encounter Procedures MRI CERVICAL SPINE WO IVCON MRI SPINAL CANAL CERVICAL W/O CONTRAST MATRL Mayank Sheehan MD [address] [place] [address] Phone: tel: fax: [place] [address] Referral ID Status Reason Start Date Expiration Date V isits Requested Visits Authorized [id number] Closed Auto-Generate d Referral 02/23/2025 03/25/2026 1 1 [facility] MRI/CT (Routine) - Closed Specialty Diagnoses / Procedures Referred By Cristina mac Referred To Contact MR IMAGING Diagnoses Spondylolisthesis of lumbar region Procedures MRI LUMBAR SPINE WO IVCON MRI SPINAL CANAL LUMBAR W/O CONTRAST MATERIAL Kobi Garsia PA-C [address] [place] [address] Phone: tel: fax: [place] [address] Referral ID Status Reason Start Date Expiration Date V isits Requested Visits Authorized [id number] Closed Auto-Generate d Referral 05/18/2025 06/17/2026 1 1 [facility] Summary Purpose Family History No Family History Records Found Brother (s) Status:Active Comments:0. Father Status:Active Comments:In good health. Mother Status:Active Comments: d. Coronary artery disease. Diabetes mellitus, Type II. did [place] age 56, very obese and heavy smoker. Sister (s) Status:Active Comments:1. does not get along so doesn't know. Relationship Condition Age at Onset Recorded Date/T ester mother Cardiac disease Unknown father Malignant neoplasm Unknown Advance Directives No Advanced Directives Records Found Date Activated Date Inactivated Comments 11/30/2024 8:05 PM 12/02/2024 4:35 PM Question Answer Comments Full Code Order Discussed With: Patient Date Activated Date Inactivated Comments 11/30/2024 8:05 PM 12/02/2024 4:35 PM Question Answer Comments Full Code Order Discussed With: Patient Advance Directive Response Recorded Date/ Time Advance Directives No November 04, 2024 9:58am Advance Directive Response Recorded Date/ Time Do you have a Healthcare Power of Bottoming Room Supervisor? No July 15, 2025 8:28am Advance Directives No November 04, 2024 8:58am Reason for Referral Specialty Diagnoses / Procedures Referred By Cristina mac Referred To Contact CT IMAGING Diagnoses Spinal stenosis of cervical region Procedures CT CERVICAL SPINE WO IVCON CT CERVICAL SPINE W/O CONTRAST MATERIAL Mayank Sheehan MD [address] [facility] [address] [place] [address] [place] [address] Referral ID Status Reason Start Date Expiration Date Visits Requested Visits Authorized [id number] Pending Review Auto-Generat ed Referral 10/09/2024 11/08/2025 1 1 Specialty Diagnoses / Procedures Referred By Contac t Referred To Contact MR IMAGING Diagnoses Spinal stenosis of cervical region Procedures MRI CERVICAL SPINE WO IVCON MRI SPINAL CANAL CERVICAL W/O CONTRAST MATRL Mayank Sheehan MD [address] [place] [address] [place] [address] Referral ID Status Reason Start Date Expiration Date Visits Requested Visits Authorized [id number] Pending Review Auto-Generat ed Referral 10/08/2025 1 1 Specialty Diagnoses / Procedures Referred By Contac t Referred To Contact XR IMAGING Diagnoses Cervical myelopathy (HCC) Procedures XR CERV OTHER 4V AP/LAT/FLX/EXT RADEX SPINE CERVICAL 4 OR 5 VIEWS Mayank Sheehan MD [address] [place] [address] [place] [address] Referral ID Status Reason Start Date Expiration Date V isits Requested Visits Authorized [id number] Closed Auto-Generate d Referral 09/08/2024 09/29/2024 1 1 Chief Complaint and Reason for Visit Chief Complaint Admit Date Surgical clearance November 17, 2024 1:53pm 6 M FU January 27, 2025 9:0 6am AFTERCARE March 04, 2025 8:32a m Reason for Visit Admit Date Aortoiliac occlusive disease November 172024 1:53pm Coronary artery disease January 27, 2025 9:06am Diabetes mellitus January 27, 2025 9:0 6am Diastolic dysfunction without heart fail ure January 27, 2025 9:06am Dyslipidemia January 27, 2025 9:0 6am Dyspnea on exertion January 27, 2025 9:0 6am Hx of CABG January 27, 2025 9:0 6am Hypertension January 27, 2025 9:0 6am Peripheral arterial disease January 27, 2025 9:06am Chief Complaint Admit Date 6 M FU January 27, 2025 9:0 6am AFTERCARE March 04, 2025 8:32a m 3 M FU April 01, 2025 9:50a m Reason for Visit Admit Date Coronary artery disease January 27, 2025 9:06am Diabetes mellitus January 27, 2025 9:0 6am Diastolic dysfunction without heart fail ure January 27, 2025 9:06am Dyslipidemia January 27, 2025 9:0 6am Dyspnea on exertion January 27, 2025 9:0 6am Hx of CABG January 27, 2025 9:0 6am Hypertension January 27, 2025 9:0 6am Peripheral arterial disease January 27, 2025 9:06am Coronary artery disease April 01, 2025 9 :50am Diabetes mellitus April 01, 2025 9:50a m Diastolic dysfunction without heart fail ure April 01, 2025 9:50am Dyslipidemia April 01, 2025 9:50a m Dyspnea on exertion April 01, 2025 9:50a m Hx of CABG April 01, 2025 9:50a m Hypertension April 01, 2025 9:50a m Peripheral arterial disease April 01 9:50am Chief Complaint Admit Date 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 Octo 2024 9:51am follow up August 04, 2025 7 :35am Reason for Visit Admit Date Anxiety August 04, 2025 7 :35am Asthma August 04, 2025 7 :35am MDD (major depressive disorder) August 04, 2025 7:35am AVE (obstructive sleep apnea) August 042024 7:35am Smoking greater than 20 pack years Novem 2024 7:35am Additional Source Comments INFORMATION SOURCE (unrecogn ized section and content) DATE CREATED AUTHOR 06/19/2019 [facility] DATE CREATED AUTHOR AUTHOR'S ORGANIZ ATION 05/21/2020 [facility] DATE CREATED AUTHOR AUTHOR'S ORGANIZ ATION 09/02/2023 [facility] DATE CREATED AUTHOR AUTHOR'S ORGANIZ ATION 06/04/2024 [facility] ([place]) DATE CREATED AUTHOR AUTHOR'S ORGANIZ ATION 10/16/2024 [facility] DATE CREATED AUTHOR AUTHOR'S ORGANIZ ATION 02/24/2025 [facility] DATE CREATED AUTHOR AUTHOR'S ORGANIZ ATION 06/13/2025 [facility] DATE CREATED AUTHOR AUTHOR'S ORGANIZ ATION 06/13/2025 [facility] DATE CREATED AUTHOR AUTHOR'S ORGANIZ ATION 07/22/2025 [facility] DATE CREATED AUTHOR AUTHOR'S ORGANIZ ATION 08/11/2025 [facility] Patient Care team informatio n (unrecognized section and content) 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 Relationship Specialty Start Date End Date Josephine Walter CNP [address] [place] [address] PCP - General Family Medicine 03/24/24 Restaurant Shift Leader Relationship Specialty Start Date End Date Josephine Walter CNP [address] [place] [address] PCP - General Family Medicine 03/24/24 Restaurant Shift Leader Relationship Specialty Start Date End Date Josephine Walter CNP [address] [place] [address] PCP - General Family Medicine 03/24/24 Restaurant Shift Leader Relationship Specialty Start Date End Date Josephine Walter CNP [address] [place] [address] PCP - General Family Medicine 03/24/24 Restaurant Shift Leader Relationship Specialty Start Date End Date Josephine Walter CNP [address] [place] [address] PCP - General Family Medicine 03/24/24 Restaurant Shift Leader Relationship Specialty Start Date End Date Josephine Walter CNP [address] [place] [address] PCP - General Family Medicine 03/24/24 Restaurant Shift Leader Relationship Specialty Start Date End Date Josephine Walter CNP [address] [place] [address] PCP - General Family Medicine 03/24/24 Restaurant Shift Leader Relationship Specialty Start Date End Date Josephine Walter CNP [address] [place] [address] PCP - General Family Medicine 03/24/24 Restaurant Shift Leader Relationship Specialty Start Date End Date Josephine Walter CNP [address] [place] [address] PCP - General Family Medicine 03/24/24 Alejandro Quintana MD [address] [place] [address] Vascular Surgery 10/27/24 Andrew Maldonado MD [address] [place] [address] Cardiology 10/27/24 Restaurant Shift Leader Relationship Specialty Start Date End Date Josephine Walter CNP [address] [place] [address] PCP - General Family Medicine 03/24/24 Alejandro Quintana MD [address] [place] [address] Vascular Surgery 10/27/24 Andrew Maldonado MD [address] [place] [address] Cardiology 10/27/24 Restaurant Shift Leader Relationship Specialty Start Date End Date Josephine Walter CNP [address] [place] [address] PCP - General Family Medicine 03/24/24 Alejandro Quintana MD [address] [place] [address] Vascular Surgery 10/27/24 Andrew Maldonado MD [address] [place] [address] Cardiology 10/27/24 Restaurant Shift Leader Relationship Specialty Start Date End Date Josepihne Walter CNP [address] [place] [address] PCP - General Family Medicine 03/24/24 Alejandro Quintana MD [address] [place] [address] Vascular Surgery 10/27/24 Andrew Maldonado MD [address] [place] [address] Cardiology 10/27/24 Sharron Seay [address] [place] [address] Vascular Medicine 11/04/24 Restaurant Shift Leader Relationship Specialty Start Date End Date Josephine Walter CNP [address] [place] [address] PCP - General Family Medicine 03/24/24 Alejandro Quintana MD [address] [place] [address] Vascular Surgery 10/27/24 Andrew Maldonado MD [address] [place] [address] Cardiology 10/27/24 Sharron Seay [address] [place] [address] Vascular Medicine 11/04/24 Restaurant Shift Leader Relationship Specialty Start Date End Date Josephine Walter CNP [address] [place] [address] PCP - General Family Medicine 03/24/24 Alejandro Quintana MD [address] [place] [address] Vascular Surgery 10/27/24 Andrew Maldonado MD [address] [place] [address] Cardiology 10/27/24 Sharron Seay [address] [place] [address] Vascular Medicine 11/04/24 Restaurant Shift Leader Relationship Specialty Start Date End Date Josephine Walter CNP [address] [place] [address] PCP - General Family Medicine 03/24/24 Alejandro Quintana MD [address] [place] [address] Vascular Surgery 10/27/24 Andrew Maldonado MD [address] [place] [address] Cardiology 10/27/24 Sharron Seay [address] [place] [address] Vascular Medicine 11/04/24 Restaurant Shift Leader Relationship Specialty Start Date End Date Josephine Walter CNP [address] [place] [address] PCP - General Family Medicine 03/24/24 Alejandro Quintana MD [address] [place] [address] Vascular Surgery 10/27/24 Andrew Maldonado MD [address] [place] [address] Cardiology 10/27/24 Sharron Seay [address] [place] [address] Vascular Medicine 11/04/24 Restaurant Shift Leader Relationship Specialty Start Date End Date Josephine Walter CNP [address] [place] [address] PCP - General Family Medicine 03/24/24 Alejandro Quintana MD [address] [place] [address] Vascular Surgery 10/27/24 Andrew Maldonado MD [address] [place] [address] Cardiology 10/27/24 Sharron Seay [address] [place] [address] Vascular Medicine 11/04/24 Restaurant Shift Leader Relationship Specialty Start Date End Date Josephine Walter CNP [address] [place] [address] PCP - General Family Medicine 03/24/24 Alejandro Quintana MD [address] [place] [address] Vascular Surgery 10/27/24 Andrew Maldonado MD [address] [place] [address] Cardiology 10/27/24 Sharron Seay [address] [place] [address] Vascular Medicine 11/04/24 Restaurant Shift Leader Relationship Specialty Start Date End Date Josephine Walter CNP [address] [place] [address] PCP - General Family Medicine 03/24/24 Alejandro Quintana MD [address] [place] [address] Vascular Surgery 10/27/24 Andrew Maldonado MD [address] [place] [address] Cardiology 10/27/24 Sharron Seay [address] [place] [address] Vascular Medicine 11/04/24 Restaurant Shift Leader Relationship Specialty Start Date End Date Josephine Walter CNP [address] [place] [address] PCP - General Family Medicine 03/24/24 Alejandro Quintana MD [address] [place] [address] Vascular Surgery 10/27/24 Andrew Maldonado MD [address] [place] [address] Cardiology 10/27/24 Sharron Seay [address] [place] [address] Vascular Medicine 11/04/24 Restaurant Shift Leader Relationship Specialty Start Date End Date Josephine Walter CNP [address] [place] [address] PCP - General Family Medicine 03/24/24 Alejandro Quintana MD [address] [place] [address] Vascular Surgery 10/27/24 Andrew Maldonado MD [address] [place] [address] Cardiology 10/27/24 Sharron Seay [address] [place] [address] Vascular Medicine 11/04/24 Restaurant Shift Leader Relationship Specialty Start Date End Date Josephine Walter CNP [address] [place] [address] PCP - General Family Medicine 03/24/24 Alejandro Quintana MD [address] [place] [address] Vascular Surgery 10/27/24 Andrew Maldonado MD [address] [place] [address] Cardiology 10/27/24 Sharron Seay [address] [place] [address] Vascular Medicine 11/04/24 Restaurant Shift Leader Relationship Specialty Start Date End Date Josephine Walter CNP [address] [place] [address] PCP - General Family Medicine 03/24/24 Alejandro Quintana MD [address] [place] [address] Vascular Surgery 10/27/24 Andrew Maldonado MD [address] [place] [address] Cardiology 10/27/24 Sharron Seay [address] [place] [address] Vascular Medicine 11/04/24 Restaurant Shift Leader Relationship Specialty Start Date End Date Josephine Walter CNP [address] [place] [address] PCP - General Family Medicine 03/24/24 Alejandro Quintana MD [address] [place] [address] Vascular Surgery 10/27/24 Andrew Maldonado MD [address] [place] [address] Cardiology 10/27/24 Sharron Seay [address] [place] [address] Vascular Medicine 11/04/24 Restaurant Shift Leader Relationship Specialty Start Date End Date Josephine Walter CNP [address] [place] [address] PCP - General Family Medicine 03/24/24 Alejandro Quintana MD [address] [place] [address] Vascular Surgery 10/27/24 Andrew Maldonado MD [address] [place] [address] Cardiology 10/27/24 Sharron Saey [address] [place] [address] Vascular Medicine 11/04/24 Restaurant Shift Leader Relationship Specialty Start Date End Date Josephine Walter CNP [address] [place] [address] PCP - General Family Medicine 03/24/24 Alejandro Quintana MD [address] [place] [address] Vascular Surgery 10/27/24 Andrwe Maldonado MD [address] [place] [address] Cardiology 10/27/24 Sharron Seay [address] [place] [address] Vascular Medicine 11/04/24 Restaurant Shift Leader Relationship Specialty Start Date End Date Josephine Walter CNP [address] [place] [address] PCP - General Family Medicine 03/24/24 Alejandro Quintana MD [address] [place] [address] Vascular Surgery 10/27/24 Andrew Maldonado MD [address] [place] [address] Cardiology 10/27/24 Sharron Seay [address] [place] [address] Vascular Medicine 11/04/24 Restaurant Shift Leader Relationship Specialty Start Date End Date Josephine Walter CNP [address] [place] [address] PCP - General Family Medicine 03/24/24 Alejandro Quintana MD [address] [place] [address] Vascular Surgery 10/27/24 Andrew Maldonado MD [address] [place] [address] Cardiology 10/27/24 Sharron Seay [address] [place] [address] Vascular Medicine 11/04/24 Restaurant Shift Leader Relationship Specialty Start Date End Date Josephine Walter CNP [address] [place] [address] PCP - General Family Medicine 03/24/24 Alejandro Quintana MD [address] [place] [address] Vascular Surgery 10/27/24 Andrew Maldonado MD [address] [place] [address] Cardiology 10/27/24 Sharron Seay [address] [place] [address] Vascular Medicine 11/04/24 Restaurant Shift Leader Relationship Specialty Start Date End Date Josephine Walter CNP [address] [place] [address] PCP - General Family Medicine 03/24/24 Alejandro Quintana MD [address] [place] [address] Vascular Surgery 10/27/24 Andrew Maldonado MD [address] [place] [address] Cardiology 10/27/24 Sharron Seay [address] [place] [address] Vascular Medicine 11/04/24 Restaurant Shift Leader Relationship Specialty Start Date End Date Josephine Walter CNP [address] [place] [address] PCP - General Family Medicine 03/24/24 Alejandro Quintana MD [address] [place] [address] Vascular Surgery 10/27/24 Andrew Maldonado MD [address] [place] [address] Cardiology 10/27/24 Sharron Seay [address] [place] [address] Vascular Medicine 11/04/24 Restaurant Shift Leader Relationship Specialty Start Date End Date Josephine Walter CNP [address] [place] [address] PCP - General Family Medicine 03/24/24 Alejandro Quintana MD [address] [place] [address] Vascular Surgery 10/27/24 Andrew Maldonado MD [address] [place] [address] Cardiology 10/27/24 Sharron Seay [address] [place] [address] Vascular Medicine 11/04/24 Restaurant Shift Leader Relationship Specialty Start Date End Date Josephine Walter CNP [address] [place] [address] PCP - General Family Medicine 03/24/24 Alejandro Quintana MD [address] [place] [address] Vascular Surgery 10/27/24 Andrew Maldonado MD [address] [place] [address] Cardiology 10/27/24 Sharron Seay [address] [place] [place] [address] Vascular Medicine 11/04/24 Restaurant Shift Leader Relationship Specialty Start Date End Date Josephine Walter CNP [address] [place] [address] [place] [address] PCP - General Family Medicine 03/24/24 Alejandro Quintana MD [address] [place] [address] Vascular Surgery 10/27/24 Andrew Maldonado MD [address] [place] [address] Cardiology 10/27/24 Sharron Seay [address] [place] [address] Vascular Medicine 11/04/24 Restaurant Shift Leader Relationship Specialty Start Date End Date Josephine Walter CNP [address] [place] [address] PCP - General Family Medicine 03/24/24 Alejandro Quintana MD [address] [place] [address] Vascular Surgery 10/27/24 Andrew Maldonado MD [address] [place] [address] Cardiology 10/27/24 Sharron Seay [address] [place] [address] Vascular Medicine 11/04/24 Restaurant Shift Leader Relationship Specialty Start Date End Date Josephine Walter CNP [address] [place] [address] PCP - General Family Medicine 03/24/24 Alejandro Quintana MD [address] [place] [address] Vascular Surgery 10/27/24 Andrew Maldonado MD [address] [place] [address] Cardiology 10/27/24 Sharron Seay [address] [place] [address] Vascular Medicine 11/04/24 Restaurant Shift Leader Relationship Specialty Start Date End Date Josephine Walter CNP [address] [place] [address] PCP - General Family Medicine 03/24/24 Alejandro Quintana MD [address] [place] [address] Vascular Surgery 10/27/24 Andrew Maldonado MD [address] [place] [address] Cardiology 10/27/24 Sharron Seay [address] [place] [address] Vascular Medicine 11/04/24 Team Status: Active Member Role Status Dates Josephine Walter PATHOLOGY TECHNOLOGIST, PATHOLOGY TECHNOLOGIST-C Primary Care Provider Activ e Team Status: Inactive Member Role Status Dates Josephine Walter NP, PATHOLOGY TECHNOLOGIST-C Referring Provider Active Start: November 17, 2024 End: November 17, 2024 HEIDI Allen Attending Provider Active Star t: November 17, 2024 End: November 17, 2024 Team Status: Inactive Member Role Status Dates Dr. Andrew Maldonado MD Attending Provider Active Start: January 27, 2025 End: January 27, 2025 Josephine Walter NP PATHOLOGY TECHNOLOGIST-C Primary Care Provider Activ e Start: January 27, 2025 End: January 27, 2025 Josephine Walter NP PATHOLOGY TECHNOLOGIST-C Referring Provider Active Start: January 27, 2025 End: January 27, 2025 Team Status: Inactive Member Role Status Dates Josephine Walter NP PATHOLOGY TECHNOLOGIST-C Primary Care Provider Activ e Start: March 04, 2025 End: March 04, 2025 HEIDI Allen Attending Provider Active Star t: March 04, 2025 End: March 04, 2025 HEIDI Allen Referring Provider Active Star t: March 04, 2025 End: March 04, 2025 Team Status: Active Member Role Status Dates Josephine Walter NP PATHOLOGY TECHNOLOGIST-C Primary Care Provider Activ e Start: March 04, 2025 Dr. Alejandro Quintana MD Attending Provider Active S tart: March 04, 2025 Restaurant Shift Leader Relationship Specialty Start Date End Date Josephine Walter CNP [address] [place] [address] PCP - General Family Medicine 03/24/24 Alejandro Quintana MD [address] [place] [address] Vascular Surgery 10/27/24 Andrew Maldonado MD [address] [place], [place] [address] Cardiology 10/27/24 Sharron Seay [address] [place] [address] Vascular Medicine 11/04/24 Restaurant Shift Leader Relationship Specialty Start Date End Date Josephine Walter CNP [address] [place] [address], [place] [address] PCP - General Family Medicine 03/24/24 Alejandro Quintana MD [address] [place] [address] Vascular Surgery 10/27/24 Andrew Maldonado MD [address] [place], [place] [address] Cardiology 10/27/24 Geena Sharron [address] [place] [address] Vascular Medicine 11/04/24 Team Status: Active Member Role/Relationship Status Dates Josephine Walter NP, PATHOLOGY TECHNOLOGIST-C Primary Care Provider Activ e Team Status: Inactive Member Role/Relationship Status Dates Dr. Andrew Maldonado MD Attending Provider Active Start: January 27, 2025 End: January 27, 2025 Josephine Walter NP, PATHOLOGY TECHNOLOGIST-C Primary Care Provider Activ e Start: January 27, 2025 End: January 27, 2025 Josephine Walter NP, PATHOLOGY TECHNOLOGIST-C Referring Provider Active Start: January 27, 2025 End: January 27, 2025 Team Status: Inactive Member Role/Relationship Status Dates Josephine Walter NP, PATHOLOGY TECHNOLOGIST-C Primary Care Provider Activ e Start: March 04, 2025 End: March 04, 2025 HEIDI Allen Attending Provider Active Star t: March 04, 2025 End: March 04, 2025 HEIDI Allen Referring Provider Active Star t: March 04, 2025 End: March 04, 2025 Team Status: Active Member Role/Relationship Status Dates Josephine Walter NP, PATHOLOGY TECHNOLOGIST-C Primary Care Provider Activ e Start: March 04, 2025 Dr. Alejandro Quintana MD Attending Provider Active S tart: March 04, 2025 HEIDI Allen Referring Provider Active Star t: March 04, 2025 Team Status: Inactive Member Role/Relationship Status Dates Josephine Jose Angel PATHOLOGY TECHNOLOGIST, PATHOLOGY TECHNOLOGIST-C Primary Care Provider Activ e Start: April 01, 2025 End: April 01, 2025 Josephine Walter PATHOLOGY TECHNOLOGIST, PATHOLOGY TECHNOLOGIST-C Referring Provider Active Start: April 01, 2025 End: April 01, 2025 Susanne Rabago PATHOLOGY TECHNOLOGIST, PATHOLOGY TECHNOLOGIST-C Attending Provider Active Start: April 01, 2025 End: April 01, 2025 Restaurant Shift Leader Relationship Specialty Start Date End Date Josephine Walter CNP [address] [place] [address] PCP - General Family Medicine 03/24/24 Alejandro Quintana MD [address] [place], [place] [address] Vascular Surgery 10/27/24 Andrew Maldonado MD [address] [place] [address] Cardiology 10/27/24 Sharron Seay [address] [place] [address] Vascular Medicine 11/04/24 Restaurant Shift Leader Relationship Specialty Start Date End Date Josephine Walter CNP [address] [place] [address] PCP - General Family Medicine 03/24/24 Alejandro Quintana MD [address] [place] [address] Vascular Surgery 10/27/24 Andrew Maldonado MD [address] [place] [address] Cardiology 10/27/24 Sharron Seay [address] [place] [address] Vascular Medicine 11/04/24 Restaurant Shift Leader Relationship Specialty Start Date End Date Josephine Walter CNP [address] [place] [address] PCP - General Family Medicine 03/24/24 Alejandro Quintana MD [address] [place] [address] Vascular Surgery 10/27/24 Andrew Maldonado MD [address] [place] [address] Cardiology 10/27/24 Sharron Seay [address] [place] [address] Vascular Medicine 11/04/24 Restaurant Shift Leader Relationship Specialty Start Date End Date Josephine Walter CNP [address] [place] [address] PCP - General Family Medicine 03/24/24 Alejandro Quintana MD [address] [place] [address] Vascular Surgery 10/27/24 Andrew Maldonado MD [address] [place] [address] Cardiology 10/27/24 Sharron Seay [address] [place] [address] Vascular Medicine 11/04/24 Restaurant Shift Leader Relationship Specialty Start Date End Date Josephine Walter CNP [address] [place] [address] PCP - General Family Medicine 03/24/24 Alejandro Quintana MD [address] [place] [address] Vascular Surgery 10/27/24 Andrew Maldonado MD [address] [place] [address] Cardiology 10/27/24 Sharron Seay [address] [place] [address] Vascular Medicine 11/04/24 Restaurant Shift Leader Relationship Specialty Start Date End Date Josephine Walter CNP [address] [place] [address] PCP - General Family Medicine 03/24/24 Alejandro Quintana MD [address] [place] [address] Vascular Surgery 10/27/24 Andrew Maldonado MD [address] [place] [address] Cardiology 10/27/24 Sharron Seay [address] [place] [address] Vascular Medicine 11/04/24 Restaurant Shift Leader Relationship Specialty Start Date End Date Josephine Walter CNP [address] [place] [address] PCP - General Family Medicine 03/24/24 Alejandro Quintana MD [address] [place] [address] Vascular Surgery 10/27/24 Andrew Maldonado MD [address] [place] [address] Cardiology 10/27/24 Sharron Seay [address] [place] [address] Vascular Medicine 11/04/24 Restaurant Shift Leader Relationship Specialty Start Date End Date Josephine Walter CNP [address] [place] [address] PCP - General Family Medicine 03/24/24 Alejandro Quintana MD [address] [place] [address] Vascular Surgery 10/27/24 Andrew Maldonado MD [address] [place] [address] Cardiology 10/27/24 Sharron Seay [address] [place] [address] Vascular Medicine 11/04/24 Restaurant Shift Leader Relationship Specialty Start Date End Date Josephine Walter CNP [address] [place] [address] PCP - General Family Medicine 03/24/24 Alejandro Quintana MD [address] [place], [place] [address] Vascular Surgery 10/27/24 Andrew Maldonado MD [address] [place], [place] [address] Cardiology 10/27/24 Sharron Seay [address] [place] [address] Vascular Medicine 11/04/24 Team Status: Active Member Role/Relationship Status Dates Josephine Walter NP, PATHOLOGY TECHNOLOGIST-C Primary care physician Acti ve Team Status: Inactive Member Role/Relationship Status Dates Josephine Walter NP, PATHOLOGY TECHNOLOGIST-C Primary care physician Acti ve Start: July 19, 2025 End: July 19, 2025 Dr. Moiz Rodriguez DO Attending physician Active Start: July 19, 2025 End: July 19, 2025 Dr. Moiz Rodriguez DO Referring Provider Active Start: July 19, 2025 End: July 19, 2025 Team Status: Inactive Member Role/Relationship Status Dates Josephine Walter NP, PATHOLOGY TECHNOLOGIST-C Primary care physician Acti ve Start: August 04, 2025 End: August 04, 2025 Josephine Walter NP, PATHOLOGY TECHNOLOGIST-C Referring Provider Active Start: August 04, 2025 End: August 04, 2025 Sharron Seay NP, PATHOLOGY TECHNOLOGIST-C Attending physician Active Start: August 04, 2025 End: August 04, 2025 Source Comments (unrecognize d section and content) In the event this informatio n is protected by the Federal Confidentiality of Alcohol and Drug Abuse Patient Records regulations: The Federal rules restrict any use of the information to criminally investigate or prosecute any alcohol or drug abuse patient.[facility] the event this information is protected by the Federal Confidentiality of Alcohol and Drug Abuse Patient Records regulations: The Federal rules restrict any use of the information to criminally investigate or prosecute any alcohol or drug abuse patient.[facility] the event this information is protected by the Federal Confidentiality of Alcohol and Drug Abuse Patient Records regulations: The Federal rules restrict any use of the information to criminally investigate or prosecute any alcohol or drug abuse patient.[facility] HospitalIn the event this information is protected by the Federal Confidentiality of Alcohol and Drug Abuse Patient Records regulations: The Federal rules restrict any use of the information to criminally investigate or prosecute any alcohol or drug abuse patient.[facility] HospitalIn the event this information is protected by the Federal Confidentiality of Alcohol and Drug Abuse Patient Records regulations: The Federal rules restrict any use of the information to criminally investigate or prosecute any alcohol or drug abuse patient.[facility] HospitalIn the event this information is protected by the Federal Confidentiality of Alcohol and Drug Abuse Patient Records regulations: The Federal rules restrict any use of the information to criminally investigate or prosecute any alcohol or drug abuse patient.[facility] HospitalIn the event this information is protected by the Federal Confidentiality of Alcohol and Drug Abuse Patient Records regulations: The Federal rules restrict any use of the information to criminally investigate or prosecute any alcohol or drug abuse patient.[facility] HospitalIn the event this information is protected by the Federal Confidentiality of Alcohol and Drug Abuse Patient Records regulations: The Federal rules restrict any use of the information to criminally investigate or prosecute any alcohol or drug abuse patient.[facility] HospitalIn the event this information is protected by the Federal Confidentiality of Alcohol and Drug Abuse Patient Records regulations: The Federal rules restrict any use of the information to criminally investigate or prosecute any alcohol or drug abuse patient.[facility] HospitalIn the event this information is protected by the Federal Confidentiality of Alcohol and Drug Abuse Patient Records regulations: The Federal rules restrict any use of the information to criminally investigate or prosecute any alcohol or drug abuse patient.[facility] HospitalIn the event this information is protected by the Federal Confidentiality of Alcohol and Drug Abuse Patient Records regulations: The Federal rules restrict any use of the information to criminally investigate or prosecute any alcohol or drug abuse patient.[facility] HospitalIn the event this information is protected by the Federal Confidentiality of Alcohol and Drug Abuse Patient Records regulations: The Federal rules restrict any use of the information to criminally investigate or prosecute any alcohol or drug abuse patient.[facility] HospitalIn the event this information is protected by the Federal Confidentiality of Alcohol and Drug Abuse Patient Records regulations: The Federal rules restrict any use of the information to criminally investigate or prosecute any alcohol or drug abuse patient.[facility] HospitalIn the event this information is protected by the Federal Confidentiality of Alcohol and Drug Abuse Patient Records regulations: The Federal rules restrict any use of the information to criminally investigate or prosecute any alcohol or drug abuse patient.[facility] HospitalIn the event this information is protected by the Federal Confidentiality of Alcohol and Drug Abuse Patient Records regulations: The Federal rules restrict any use of the information to criminally investigate or prosecute any alcohol or drug abuse patient.[facility] HospitalIn the event this information is protected by the Federal Confidentiality of Alcohol and Drug Abuse Patient Records regulations: The Federal rules restrict any use of the information to criminally investigate or prosecute any alcohol or drug abuse patient.[facility] HospitalIn the event this information is protected by the Federal Confidentiality of Alcohol and Drug Abuse Patient Records regulations: The Federal rules restrict any use of the information to criminally investigate or prosecute any alcohol or drug abuse patient.[facility] HospitalIn the event this information is protected by the Federal Confidentiality of Alcohol and Drug Abuse Patient Records regulations: The Federal rules restrict any use of the information to criminally investigate or prosecute any alcohol or drug abuse patient.[facility] HospitalIn the event this information is protected by the Federal Confidentiality of Alcohol and Drug Abuse Patient Records regulations: The Federal rules restrict any use of the information to criminally investigate or prosecute any alcohol or drug abuse patient.[facility] HospitalIn the event this information is protected by the Federal Confidentiality of Alcohol and Drug Abuse Patient Records regulations: The Federal rules restrict any use of the information to criminally investigate or prosecute any alcohol or drug abuse patient.[facility] HospitalIn the event this information is protected by the Federal Confidentiality of Alcohol and Drug Abuse Patient Records regulations: The Federal rules restrict any use of the information to criminally investigate or prosecute any alcohol or drug abuse patient.[facility] HospitalIn the event this information is protected by the Federal Confidentiality of Alcohol and Drug Abuse Patient Records regulations: The Federal rules restrict any use of the information to criminally investigate or prosecute any alcohol or drug abuse patient.[facility] HospitalIn the event this information is protected by the Federal Confidentiality of Alcohol and Drug Abuse Patient Records regulations: The Federal rules restrict any use of the information to criminally investigate or prosecute any alcohol or drug abuse patient.[facility] HospitalIn the event this information is protected by the Federal Confidentiality of Alcohol and Drug Abuse Patient Records regulations: The Federal rules restrict any use of the information to criminally investigate or prosecute any alcohol or drug abuse patient.[facility] HospitalIn the event this information is protected by the Federal Confidentiality of Alcohol and Drug Abuse Patient Records regulations: The Federal rules restrict any use of the information to criminally investigate or prosecute any alcohol or drug abuse patient.[facility] HospitalIn the event this information is protected by the Federal Confidentiality of Alcohol and Drug Abuse Patient Records regulations: The Federal rules restrict any use of the information to criminally investigate or prosecute any alcohol or drug abuse patient.[facility] HospitalIn the event this information is protected by the Federal Confidentiality of Alcohol and Drug Abuse Patient Records regulations: The Federal rules restrict any use of the information to criminally investigate or prosecute any alcohol or drug abuse patient.[facility] HospitalIn the event this information is protected by the Federal Confidentiality of Alcohol and Drug Abuse Patient Records regulations: The Federal rules restrict any use of the information to criminally investigate or prosecute any alcohol or drug abuse patient.[facility] HospitalIn the event this information is protected by the Federal Confidentiality of Alcohol and Drug Abuse Patient Records regulations: The Federal rules restrict any use of the information to criminally investigate or prosecute any alcohol or drug abuse patient.[facility] HospitalIn the event this information is protected by the Federal Confidentiality of Alcohol and Drug Abuse Patient Records regulations: The Federal rules restrict any use of the information to criminally investigate or prosecute any alcohol or drug abuse patient.[facility] HospitalIn the event this information is protected by the Federal Confidentiality of Alcohol and Drug Abuse Patient Records regulations: The Federal rules restrict any use of the information to criminally investigate or prosecute any alcohol or drug abuse patient.[facility] HospitalIn the event this information is protected by the Federal Confidentiality of Alcohol and Drug Abuse Patient Records regulations: The Federal rules restrict any use of the information to criminally investigate or prosecute any alcohol or drug abuse patient.[facility] HospitalIn the event this information is protected by the Federal Confidentiality of Alcohol and Drug Abuse Patient Records regulations: The Federal rules restrict any use of the information to criminally investigate or prosecute any alcohol or drug abuse patient.[facility] HospitalIn the event this information is protected by the Federal Confidentiality of Alcohol and Drug Abuse Patient Records regulations: The Federal rules restrict any use of the information to criminally investigate or prosecute any alcohol or drug abuse patient.[facility] HospitalIn the event this information is protected by the Federal Confidentiality of Alcohol and Drug Abuse Patient Records regulations: The Federal rules restrict any use of the information to criminally investigate or prosecute any alcohol or drug abuse patient.[facility] HospitalIn the event this information is protected by the Federal Confidentiality of Alcohol and Drug Abuse Patient Records regulations: The Federal rules restrict any use of the information to criminally investigate or prosecute any alcohol or drug abuse patient.[facility] HospitalIn the event this information is protected by the Federal Confidentiality of Alcohol and Drug Abuse Patient Records regulations: The Federal rules restrict any use of the information to criminally investigate or prosecute any alcohol or drug abuse patient.[facility] HospitalIn the event this information is protected by the Federal Confidentiality of Alcohol and Drug Abuse Patient Records regulations: The Federal rules restrict any use of the information to criminally investigate or prosecute any alcohol or drug abuse patient.[facility] HospitalIn the event this information is protected by the Federal Confidentiality of Alcohol and Drug Abuse Patient Records regulations: The Federal rules restrict any use of the information to criminally investigate or prosecute any alcohol or drug abuse patient.[facility] HospitalIn the event this information is protected by the Federal Confidentiality of Alcohol and Drug Abuse Patient Records regulations: The Federal rules restrict any use of the information to criminally investigate or prosecute any alcohol or drug abuse patient.[facility] HospitalIn the event this information is protected by the Federal Confidentiality of Alcohol and Drug Abuse Patient Records regulations: The Federal rules restrict any use of the information to criminally investigate or prosecute any alcohol or drug abuse patient.[facility] HospitalIn the event this information is protected by the Federal Confidentiality of Alcohol and Drug Abuse Patient Records regulations: The Federal rules restrict any use of the information to criminally investigate or prosecute any alcohol or drug abuse patient.[facility] HospitalIn the event this information is protected by the Federal Confidentiality of Alcohol and Drug Abuse Patient Records regulations: The Federal rules restrict any use of the information to criminally investigate or prosecute any alcohol or drug abuse patient.[facility] HospitalIn the event this information is protected by the Federal Confidentiality of Alcohol and Drug Abuse Patient Records regulations: The Federal rules restrict any use of the information to criminally investigate or prosecute any alcohol or drug abuse patient.[facility] HospitalIn the event this information is protected by the Federal Confidentiality of Alcohol and Drug Abuse Patient Records regulations: The Federal rules restrict any use of the information to criminally investigate or prosecute any alcohol or drug abuse patient.[facility] HospitalIn the event this information is protected by the Federal Confidentiality of Alcohol and Drug Abuse Patient Records regulations: The Federal rules restrict any use of the information to criminally investigate or prosecute any alcohol or drug abuse patient.[facility] HospitalIn the event this information is protected by the Federal Confidentiality of Alcohol and Drug Abuse Patient Records regulations: The Federal rules restrict any use of the information to criminally investigate or prosecute any alcohol or drug abuse patient.[facility] HospitalIn the event this information is protected by the Federal Confidentiality of Alcohol and Drug Abuse Patient Records regulations: The Federal rules restrict any use of the information to criminally investigate or prosecute any alcohol or drug abuse patient.[facility] HospitalIn the event this information is protected by the Federal Confidentiality of Alcohol and Drug Abuse Patient Records regulations: The Federal rules restrict any use of the information to criminally investigate or prosecute any alcohol or drug abuse patient.[facility] HospitalIn the event this information is protected by the Federal Confidentiality of Alcohol and Drug Abuse Patient Records regulations: The Federal rules restrict any use of the information to criminally investigate or prosecute any alcohol or drug abuse patient.[facility] HospitalIn the event this information is protected by the Federal Confidentiality of Alcohol and Drug Abuse Patient Records regulations: The Federal rules restrict any use of the information to criminally investigate or prosecute any alcohol or drug abuse patient.[facility] HospitalIn the event this information is protected by the Federal Confidentiality of Alcohol and Drug Abuse Patient Records regulations: The Federal rules restrict any use of the information to criminally investigate or prosecute any alcohol or drug abuse patient.[facility] HospitalIn the event this information is protected by the Federal Confidentiality of Alcohol and Drug Abuse Patient Records regulations: The Federal rules restrict any use of the information to criminally investigate or prosecute any alcohol or drug abuse patient.[facility] HospitalIn the event this information is protected by the Federal Confidentiality of Alcohol and Drug Abuse Patient Records regulations: The Federal rules restrict any use of the information to criminally investigate or prosecute any alcohol or drug abuse patient.[facility] HospitalIn the event this information is protected by the Federal Confidentiality of Alcohol and Drug Abuse Patient Records regulations: The Federal rules restrict any use of the information to criminally investigate or prosecute any alcohol or drug abuse patient.[facility] HospitalIn the event this information is protected by the Federal Confidentiality of Alcohol and Drug Abuse Patient Records regulations: The Federal rules restrict any use of the information to criminally investigate or prosecute any alcohol or drug abuse patient.[facility] HospitalIn the event this information is protected by the Federal Confidentiality of Alcohol and Drug Abuse Patient Records regulations: The Federal rules restrict any use of the information to criminally investigate or prosecute any alcohol or drug abuse patient.[facility] HospitalIn the event this information is protected by the Federal Confidentiality of Alcohol and Drug Abuse Patient Records regulations: The Federal rules restrict any use of the information to criminally investigate or prosecute any alcohol or drug abuse patient.[facility] HospitalIn the event this information is protected by the Federal Confidentiality of Alcohol and Drug Abuse Patient Records regulations: The Federal rules restrict any use of the information to criminally investigate or prosecute any alcohol or drug abuse patient.[facility] HospitalIn the event this information is protected by the Federal Confidentiality of Alcohol and Drug Abuse Patient Records regulations: The Federal rules restrict any use of the information to criminally investigate or prosecute any alcohol or drug abuse patient.[facility] HospitalIn the event this information is protected by the Federal Confidentiality of Alcohol and Drug Abuse Patient Records regulations: The Federal rules restrict any use of the information to criminally investigate or prosecute any alcohol or drug abuse patient.[facility] Reason for Visit (unrecogniz ed section and content) Reason Comments Physical Therapy PT Progress Note Specialty Diagnoses / Procedures Referred By Contac t Referred To Contact [facility] Diagnoses Status post cervical spinal fusion Chronic right shoulder pain Procedures CONSULT TO PHYSICAL THERAPY PHYSICAL THERAPY EVALUATION HIGH COMPLEX 45 MINS Mayank Sheehan MD [facility] [address] [place] [id number] Phone: tel: fax: [facility] [address] [place] [address] Referral ID Status Reason Start Date Expiration Date Visits Requested Visits Authorized [id number] Authorized PCP Requested Referral Auto-Generate d Referral 01/12/2025 01/12/2026 99 99 Reason Comments Trauma Left bottom of foot @ 3 pm, having shapr shooting pains up leg, red dots Reason Comments Appointment Reason Comments New Reason Comments Patient Update Reason Comments Neck Pain Neck, arms Specialty Diagnoses / Procedures Referred By Contac t Referred To Contact Pain Management Diagnoses Cervical spondylosis with myelopathy Procedures CONSULT TO PAIN MGT OFFICE/OUTPATIENT NEW HIGH MDM 60 MINUTES Mayank Sheehan MD [address] [place] [address] [facility] [address] [place] [address] Referral ID Status Reason Start Date Expiration Date V isits Requested Visits Authorized [id number] Closed PCP Requested Referral 09/21/2024 09/21/2025 1 1 Reason Comments Established Patient Reason Comments Radiology CT Specialty Diagnoses / Procedures Referred By Contac t Referred To Contact CT IMAGING Diagnoses Spinal stenosis of cervical region Procedures CT CERVICAL SPINE WO IVCON CT CERVICAL SPINE W/O CONTRAST MATERIAL Mayank Sheehan MD [address] [facility] [address] [place] [address] [place] [address] Referral ID Status Reason Start Date Expiration Date V isits Requested Visits Authorized [id number] Closed Auto-Generat ed Referral Patient Cleared - Admin/Chairm an/Director advise to proceed or did not respond 10/13/2024 12/12/2024 1 1 Reason Comments Neck Pain Reason Comments Preparations For Surgery Reason Comments Appointment No show Reason Comments Preparations For Surgery Medical clearan ce Reason Onset Date Comments Refill Request 12/07/2024 Reason Onset Date Comments Refill Request 12/09/2024 Reason Comments Post Op Sx 11/30/24 Reason Comments Patient Question Reason Comments Post Op Sx 11/30/24 Reason Comments PT Eval Physical Therapy Reason Comments New Pain Reason Comments Med Change Request Reason Comments Follow Up Results - Mri Reason Comments New Patient Evaluation Reason Comments Patient Update Pt not wanting to le [facility] PM Reason Comments Patient Update Returning Patient's Call Patient post in jection concern Reason Comments Physical Therapy Specialty Diagnoses / Procedures Referred By Contac t Referred To Contact [facility] Diagnoses Status post cervical spinal fusion Chronic right shoulder pain Procedures CONSULT TO PHYSICAL THERAPY PHYSICAL THERAPY EVALUATION HIGH COMPLEX 45 MINS Mayank Sheehan MD [address] [place] [address] Phone: tel: fax: [facility] [address] [place] [address] Referral ID Status Reason Start Date Expiration Date Visits Requested Visits Authorized [id number] Authorized PCP Requested Referral Auto-Generate d Referral 01/12/2025 01/12/2026 99 99 Reason Comments Pain Shoulder - right Nec k Reason Comments Post Op Sx 11/30/24 Reason Onset Date Comments Refill Request 03/08/[address] Specialty Diagnoses / Procedures Referred By Contac t Referred To Contact CT IMAGING Diagnoses Adverse effect of treatment, initial encounter Procedures CT CERVICAL SPINE WO IVCON CT CERVICAL SPINE W/O CONTRAST MATERIAL Mayank Sheehan MD [address] [place] [address] Phone: tel: fax: [facility] Referral ID Status Reason Start Date Expiration Date V isits Requested Visits Authorized [id number] Closed Auto-Generate d Referral 02/23/2025 03/25/2026 1 1 Reason Comments Follow Up Reason Comments Release Of Medical Records Imaging Reason Comments Pain NeckShoulderLow back Reason Comments Medication Problem Reason Comments Diabetic Clearance Received Goals (unrecognized section and content) Goals may be documented in a n alternate section FOR RECORDS PERTAINING TO PATIENTS WHO ARE OR HAVE BEEN ENROLLED IN A CHEMICAL DEPENDENCY/SUBSTANCEABUSE PROGRAM, SOME INFORMATION MAY BE OMITTED. This clinical summary was aggregated from multiple sources. Caution should be exercised in using it in the provision of clinical care. This summary normalizes information from multiple sources, and as a consequence, information in this document may materially change the coding, format and clinical context of patient data. In addition, data may be omitted in some cases. CLINICAL DECISIONS SHOULD BE BASED ON THE PRIMARY CLINICAL RECORDS. [email or web address] provides no warranty or guarantee of the accuracy or completeness of information in this document.
== END | disposition home or self-care (01) ==
LOC: SL 19:34
PROVIDERS: PCP Registered Nurse; Referring Provider Nurse Practitioner Acute Care; Visit Provider Nurse Practitioner Acute Care
DX: G47.33 Obstructive sleep apnea (adult) (pediatric) (principal)
CPT/HCPCS: 95810

== ENCOUNTER → 2025-08-20 | Outpatient (CLI) | payer MEDICARE, MEDICAID, SELFPAY ==
--- NOTE | 2025-08-20 13:34 | ART_ITS ---
Reason For Study Reason For Study: HX Lt YEIMY Stent Procedure A bilateral lower extremity continuous wave Doppler with analog waveform analysis,segmental pressures,and ankle brachial indexes without exercise. Left Segmental Pressures Left brachial= 124mmHg. Left posterior tibial artery = 130mmHg. Left dorsalis pedis artery = 136mmHg. Left digit = 87 mmHg. The left posterior tibial artery waveforms are triphasic. The left dorsalis pedis waveforms are triphasic. Right Segmental Pressures Right brachial= 112mmHg. Right posterior tibial artery = 137mmHg. Right dorsalis pedis artery = 139mmHg. Right digit = 103 mmHg. The right posterior tibial artery waveforms are triphasic. The right dorsalis pedis waveforms are triphasic. Indices The right ankle brachial index by the posterior tibial artery is 1.10. The right ankle brachial index by the dorsalis pedis is 1.12. The right digital-brachial index is 0.83. The right post exercise ankle brachial index is 1.12. The left ankle brachial index by the posterior tibial artery is 1.05. The left ankle brachial index by the dorsalis pedis is 1.10. The left digital-brachial index is 0.70. The left post exercise ankle brachial index is 0.99. VL/Lower Ext Art Exam w/ Exercise Interpretation Summary Right TASIA 1.12, normal. TBI and Doppler/PVR waveforms of the right leg normal a t rest. Right lower extremity exhibits normal response to exercise. Left TASIA 1.1, normal. Doppler/PVR waveforms of the left leg normal at rest. TBI diminished, pedal/digit disease vs spasm. Left lower extremity exhibits normal response to exercise. Ordering Physician: Marlee Araujo Referring Physician: Ce Loza Performed By: Bret Brady, RVT
== END | disposition home or self-care (01) ==
LOC: CVS 13:32
PROVIDERS: PCP Registered Nurse; Referring Provider Physician Assistant; Visit Provider Physician Assistant
DX: I73.9 Peripheral vascular disease, unspecified (principal)
CPT/HCPCS: 93924

== ENCOUNTER → 2025-09-03 | Outpatient (CLI) | payer MEDICARE, SELFPAY | END | disposition home or self-care (01) | LOC: SL 14:21 | PROVIDERS: PCP Registered Nurse; Visit Provider Nurse Practitioner Acute Care | DX: Z46.89 Encounter for fitting and adjustment of other specified devices (principal) ==

== ENCOUNTER 2025-09-22 11:09 | Day surgery (SDC) | payer MEDICARE, SELFPAY ==
--- NOTE | 2025-09-20 12:10 | PAT.ANESEVAL ---
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 When Was Last Pacemaker Check QUESTION #4 FULL TEXT: You/Your Family Experience fever (hyperthermia) with Anesthesia Last Oral Intake Last Oral intake: Last Oral Intake NPO since Meds taken in AM with sips of water? Meds patient instructed to take am of surgery PONV PONV - air transportation provider: PONV - air transportation provider Female Yes 09/20/25 11:03 HX of Motion Sickness No 09/20/25 11:03 HX of N/V After Surgery No 09/20/25 11:03 Non-Smoker Yes 09/20/25 11:03 Duration of Surgery greater No 09/20/25 11:03 than 60 minutes Number of Risk Factors 2 09/20/25 11:03 PONV Score Moderate Risk 09/20/25 11:03 Height & Weight Height & Weight: Anesthesia: Height & Weight Height 5 ft 2 in 08/04/25 07:57 Respiratory Assessment Respiratory Assessment - air transportation provider: Respiratory Tract Infection Hx - air transportation provider Hx Respiratory Tract Infection No 09/20/25 11:03 STOP Sleep Apnea STOP Sleep Apnea - air transportation provider: STOP Sleep Apnea - air transportation provider Hx Hypertension No 09/20/25 11:03 Hx Sleep Apnea Yes 09/20/25 11:03 CPAP Yes: ONLY 2-4 HOURS A NIGHT 09/20/25 11:03 BIPAP No 09/20/25 11:03 Do you snore loudly (louder than talking or can be heard Do you often feel tired/ fatigued/ sleepy during daytime? Has anyone observed you stop breathing during sleep? STOP Results Positive 09/20/25 11:03 QUESTION #5 FULL TEXT : Do you snore loudly (louder than talking or can be heard through closed doors)? Tobacco Use History Tobacco Use History - air transportation provider: Tobacco Use History - air transportation provider Tobacco Use Smoking Status Former smoker 09/20/25 11:03 Hx Tobacco Use No 09/20/25 11:03 Years Smoking Packs Smoked per Day Smoking Cessation Date was Yes - quit smoking within 15 09/20/25 11:03 within the last 15 years years Hx Smoking Cessation Date 09/30/23 09/20/25 11:03 Hx Smoking Cessation No 09/20/25 11:03 Counseling Hematologic Medial History Hematologic Hx - air transportation provider: Hematologic Medical Hx - documentation nurse Hx of Blood Transfusion No 09/20/25 11:03 Hx of Transfusion in last 3 No 09/20/25 11:03 Months Date of Last Transfusion (if within last 3 months) Ever experience any problems No 09/20/25 11:03 with transfusion(s)? Specify any problems Hx of Preganancy in last 3 No 09/20/25 11:03 Months Nurse Filling Out Transfusion JZOLLINGE 09/20/25 11:03 & Questions: Date: 09/20/25 09/20/25 11:03 Time: 11:06 09/20/25 11:03 Patient unable to answer at this time (ie. confused, unrespo /Reproduction History /Reproductive History - air transportation provider: /Reproductive Hx- air transportation provider Hx Now No 09/20/25 11:03 Gestational Age (in weeks): EDC: Hx Hx Para Hx Section SAB No 09/20/25 11:03 Does the father of the baby or his family experience fever w Father of the baby Malignant Hypertension history comment [facility] Medical History (Updated 09/20/25 @ 11:34 by Karina Lozano) Claustrophobia Hernia Wears glasses Post-menopausal Marijuana use Alcohol use Ambulates with cane Arthritis Blood disorder Restless legs Injury of back Injury of head and neck Syncope Dietary restriction Gastric reflux Former smoker CPAP (continuous positive airway pressure) dependence Chronic cough Hypertension Leg cramps History of pain when walking History of normal Holter exam History of echocardiogram History of stress test Cardiology follow-up encounter Ventral hernia Coronary artery disease CALVIN (generalized anxiety disorder) MDD (major depressive disorder) Lumbar foraminal stenosis Hyperlipidemia Peripheral neuropathy Type 2 diabetes mellitus COPD (chronic obstructive pulmonary disease) Atherosclerosis of cheesh-na arteries of extremities with rest pain, left leg Aortoiliac occlusive disease Home Medications ?Medication ?Instructions ?Recorded ?Last Taken ?Type atorvastatin 40 mg tablet 40 mg PO DAILY 05/12/24 Unknown History methocarbamol 500 mg tablet 1,000 mg PO .QID PRN pain 05/12/24 Unknown History pantoprazole 40 mg tablet,delayed 40 mg PO DAILY 05/12/24 07/19/25 History release albuterol sulfate 90 mcg/actuation 1 inh inhalation Q4H PRN shortness 05/20/24 Unknown History aerosol inhaler of breath or wheezing clopidogrel 75 mg tablet 75 mg PO QDAY 05/20/24 07/14/25 History empagliflozin 10 mg tablet 10 mg PO DAILY 05/20/24 07/14/25 History (Jardiance) lidocaine 5 % topical patch 1 patch topical QHS 05/20/24 Unknown History aripiprazole 5 mg tablet 5 mg PO QDAY 08/11/24 Unknown History hydroxyzine HCl 25 mg tablet 25 mg PO TID PRN anxiety 08/11/24 Unknown History aspirin 81 mg tablet,delayed 81 mg PO QDAY 09/16/24 Unknown History release fluticasone 250 mcg-salmeterol 50 1 ea inhalation BID 10/01/24 07/19/25 History mcg/dose blistr powdr for inhalation (Advair Diskus) fluticasone propionate 50 2 spray intranasal QDAY 10/01/24 Unknown History mcg/actuation nasal spray,suspension (Allergy Relief (fluticasone)) amlodipine 5 mg tablet 5 mg PO QDAY #90 tabs 04/01/25 07/19/25 07:30 Rx metoprolol succinate 50 mg 50 mg PO QDAY #90 tabs 04/01/25 07/19/25 Rx tablet,extended release 24 hr tramadol 50 mg tablet 100 mg PO Q8H PRN pain 04/01/25 Unknown History naproxen 500 mg tablet,delayed 500 mg PO BID 07/15/25 07/14/25 History release pregabalin 200 mg capsule 200 mg PO TID PRN pain (scale 07/15/25 Unknown History score 1-3) tizanidine 4 mg tablet 4 mg PO BID PRN muscle spasticity 07/15/25 Unknown History cariprazine 1.5 mg capsule 1.5 mg PO QDAY 08/04/25 Unknown History (Vraylar) ergocalciferol (vitamin D2) 50 mcg 50 mcg PO QWEEK 08/04/25 Unknown History (2,000 unit) capsule sennosides 8.6 mg capsule (senna) 17.2 mg PO QHS PRN constipation 08/04/25 Unknown History tirzepatide 7.5 mg/0.5 mL 7.5 mg subcut QWEEK 08/04/25 Unknown History subcutaneous pen injector (Mounjaro) CPAP - Continuous Positive Airway 09/03/25 Unknown History Pressure([facility] INFORM[facility] USE ONLY) polyethylene glycol 3350 17 4 g PO QDAY PRN constipation 09/15/25 Unknown History gram/dose oral powder (Miralax) acetaminophen 500 mg capsule 1,000 mg PO BID PRN pain 09/20/25 Unknown History Allergy/AdvReac Type Severity Reaction Status Date / Time No Known Allergies Allergy Verified 09/20/25 10:40 Family History Mother Heart disease Father Cancer Surgical History (Updated 09/20/25 @ 11:34 by Karina Lozano) H/O shoulder surgery Hx of arthroscopic knee surgery H/O angioplasty S/P insertion of iliac artery stent (~05/2022) History of carotid endarterectomy History of oophorectomy History of cardiac catheterization History of spinal surgery History of colonoscopy Presence of stent in coronary artery Hx of CABG History of hysterectomy History of cholecystectomy Social History Smoking Status: Former smoker Tobacco: How many years used: 38 how long ago did patient quit smokin months second hand exposure: Yes alcohol intake: never substance use type: does not use what type of physical activity do you participate in: none Audit: Pertinent Findings Pertinent Findings EKG Perinent findings: 05/20/2024. Sinus rhythm left atrial enlargement. Negative precordial T waves probably normal. Stress test pertinent findings: 06/15/2024. Negative EF 75%. Echo (EF%) pertinent findings: 06/12/2024. EF 65%. Consult pertinent findings: Cardiology 04/01/2025. History of CABG. Recent stress test 06/15/2024. Negative for ischemia. Continue current medical therapy. Hypertension. Chronic. Well-controlled. Recommendation Anesthesia Recommendation Anesthesia recommendation: OPTIMIZED for anesthesia
[2025-09-22] VITALS (8 sets, daily range): BP systolic 102–125; BP diastolic 17–81; PULSE 85–90; RESP 14–16; TEMP 36.5–36.8; O2SAT 98–100; BMI 27.3
--- OUTSIDE RECORDS SUMMARY | 2025-09-22 11:32 | XMS RPT_ITS | CCD ---
Author Organization [facility] Care Team Providers Care Antisqueak Applier Name Role Phone ALEJANDRO DAMON MD Admitting Unavailable ALEJANDRO DAMON MD Attending Unavailable ALEJANDRO DAMON MD Primary Care Unavailable ALEJANDRO DAMON MD Consulting Unavailable PROVIDER, UNKNOWN Consulting Unavailable PROVIDER, UNKNOWN Consulting Unavailable PROVIDER, UNKNOWN Consulting Unavailable DANAY WOODARD Admitting Unavailable DANAY WOODARD Attending Unavailable ALEJANDRO DMAON MD Referring Unavailable DANAY WOODARD Primary Care Unavailable ALEJANDRO DAMON MD Consulting Unavailable PROVIDER, UNKNOWN Consulting Unavailable PROVIDER, UNKNOWN Consulting Unavailable PROVIDER, UNKNOWN Consulting Unavailable No Family, Physician Primary Care Unavailable Lazara DAMON MD Unavailable JEYSON BLACK MD Unavailable [phone] Cale CARRILLO MD Unavailable [phone] Licha Merrill Unavailable Unavailable Kirit MCCLURE, Allison Unavailable Unavaila JOSE LUIS Jean Unavailable Unavailable DUGLAS MCCLURE, GERRI Unavailable Unavailable Aniya Holcomb Unavailable Unavailable Andrea Damon Unavailable Unavailable CARLA DAMON Unavailable Unavailable [...] Attending Unavailable Alejandro Quintana MD Unavailable Andrew Maldonado MD Unavailable SeaySharron Unavailable JOSEPHINE WALTER Primary Care Unavailable QIANA, MAYANK T Referring Unavailable MARLEE OVERTON Attending Unavailable JOSEPHINE WALTER Primary Care Unavailable MARLEE OVERTON Attending Unavailable Jose Angel SCREEN PRINTING EQUIPMENT SETTER-C, Josephine Referring Provider [phone] Marlee Del Rio Attending Provider [phone] Andrew Maldonado MD Attending Provider Jose Angel SCREEN PRINTING EQUIPMENT SETTER-C, Josephine Primary Care Provider [phone] Marlee Del Rio Referring Provider [phone] Alejandro Quintana MD Attending Provider [phone] Jose Angel SCREEN PRINTING EQUIPMENT SETTER-C, Josephine Referring Provider [phone] Marlee Del Rio Attending Provider [phone] [facility] SCREEN PRINTING EQUIPMENT SETTER-C, Susanne Attending Provider [phone] Jose Angel [facility] Primary Care Prov ider CONRY, MAYANK Referring Unavailable [facility], JOSEPHINE AMBERLE Primary Care Unava ilable CONRY, MAYANK Referring Unavailable JOSE ANGEL, JOSEPHINE AMBERLE Primary Care Unava ilable CONRY, MAYANK Referring Unavailable GOLIAS, SARA Attending Unavailable JOSE ANGEL, JOSEPHINE AMBERLE Primary Care Unava ilable CONRY, MAYANK Referring Unavailable JOSE ANGEL, JOSEPHINE AMBERLE Primary Care Unava ilable CONRY, MAYANK Referring Unavailable VALENTE HERNANDEZ Attending Unavailable JOSE ANGEL, JOSEPHINE AMBERLE Primary Care Unava ilable CONRY, MAYANK Referring Unavailable GOLIAS, SARA Attending Unavailable [facility], JOSEPHINE AMBERLE Primary Care Unava ilable CONRY, [...] AMBERLE Primary Care Unava ilable JOSE ANGEL SHEET SORTER-PASSENGER AGENT, JOSEPHINE A Attending Un available JOSE ANGEL SHEET SORTER-PASSENGER AGENT, JOSEPHINE A Primary Care Un available JOSE ANGEL SHEET SORTER-PASSENGER AGENT, JOSEPHINE A Attending Un available JOSE ANGEL SHEET SORTER-PASSENGER AGENT, JOSEPHINE A Primary Care Un available JOSE ANGEL SHEET SORTER-PASSENGER AGENT, JOSEPHINE A Attending Un available JOSE ANGEL SHEET SORTER-PASSENGER AGENT, JOSEPHINE A Primary Care Un available JOSE ANGEL SHEET SORTER-PASSENGER AGENT, JOSEPHINE A Attending Un available JOSE ANGEL SHEET SORTER-PASSENGER AGENT, JOSEPHINE A Primary Care Un available JOSE ANGEL SHEET SORTER-PASSENGER AGENT, JOSEPHINE A Attending Un available JOSE ANGEL SHEET SORTER-PASSENGER AGENT, JOSEPHINE A Primary Care Un available JOSE ANGEL, JOSEPHINE AMBERLE Primary Care Unava ilable ROMEO STAFFORD Attending Unavailable CONRY, MAYANK T Attending Unavailable ROMEO STAFFORD Referring Unavailable JOSE ANGEL, JOSEPHINE AMBERLE Primary Care Unava ilable CONRY, MAYANK T Referring Unavailable JOSE ANGEL, JOSEPHINE AMBER Primary Care Unava ilable NEWTON SHINE Attending Unavailable [facility], JOSEPHINE AMBER Primary Care Unava ilable CONRY, MAYANK T Referring Unavailable CONRY, MAYANK T Attending Unavailable [facility], JOSEPHINE AMBER Primary Care Unava ilable CONRY, MAYANK T Attending Unavailable [facility], JOSEPHINE AMBER Primary Care Unava ilable JOSE ANGEL, JOSEPHINE AMBER Primary Care Unava ilable CONRY, MAYANK T Referring Unavailable [facility], JOSEPHINE AMBER Primary Care Unava ilable CONRY, MAYANK T Attending Unavailable [facility], JOSEPHINE AMBER Primary Care Unava ilable CONRY, MAYANK T Referring Unavailable [facility], JOSEPHINE AMBER Primary Care Unava ilable CONRY, MAYANK T Attending Unavailable [facility], [facility] Primary Care Unava ilable CONRY, MAYANK T Referring Unavailable [facility], JOSEPHINE AMBER Primary Care Unava ilable KOBI GARSIA Attending Unavailable SELF Referring Unavailable [facility], [facility] Primary Care Unava ilable CONRY, MAYANK T Attending Unavailable [facility], [facility] Primary Care Unava ilable CONRY, MAYANK T Attending Unavailable [facility], [facility] Primary Care Unava ilable KOBI GARSIA Attending Unavailable [facility], [facility] Primary Care Unava ilable NEWTON SHINE Admitting Unavailable NEWTON SHINE Attending Unavailable [facility], [facility] Primary Care Unava ilable MISRY, AMYANK T Attending Unavailable [facility] Primary Care Unava ilable Jose Angel SCREEN PRINTING EQUIPMENT SETTER-C, Josephine Primary Care Physician Dr. Moiz Rodriguez DO Attending Physician [phone] Dr. Moiz Rodriguez DO Referring Provider Jose Angel SCREEN PRINTING EQUIPMENT SETTER-Josephine Lopez Referring Provider Sharron Moore Attending Physician Andrew Maldonado Referring Unavailable Andrew Maldoando Attending Unavailable Jose Angel SCREEN PRINTING EQUIPMENT SETTER, [facility] Unavailabl e Varinder Rendon Attending Unavailable Joel, Andrew Referring Unavailable Jose Angel SCREEN PRINTING EQUIPMENT SETTER, [facility] Unavailabl e Jose Angel SCREEN PRINTING EQUIPMENT SETTER, [facility] Unavailabl e Araujo, Marlee Referring Unavailable Araujo, Marlee Attending Unavailable Mariano, Alejandro Attending Unavailable Jose Angel SCREEN PRINTING EQUIPMENT SETTER, [facility] Unavailabl e Araujo, Marlee Referring Unavailable Jose Angel SCREEN PRINTING EQUIPMENT SETTER, [facility] Unavailabl e Jose Angel SCREEN PRINTING EQUIPMENT SETTER, [place] Referring Unavailabl e Sharron Seay Attending Unavailable Moiz Rodriguez Referring Unavailable Moiz Rodriguez Attending Unavailable Jose Angel SCREEN PRINTING EQUIPMENT SETTER, [facility] Unavailabl e Jose Angel SCREEN PRINTING EQUIPMENT SETTER, [facility] Unavailabl e Sharron Seay Referring Unavailable Sharron Seay Attending Unavailable Jose Angel SCREEN PRINTING EQUIPMENT SETTER, [facility] Unavailabl e Araujo, Marlee Referring Unavailable Araujo, Marlee Attending Unavailable Brown, Varinder Referring Unavailable BrownVarinder Attending Unavailable Jose Angel SCREEN PRINTING EQUIPMENT SETTER, [facility] Unavailabl e Brown, Varinder Referring Unavailable Jose Angel SCREEN PRINTING EQUIPMENT SETTER, [facility] Unavailabl e BrownVarinder Attending Unavailable Brown, Varinder Referring Unavailable Jose Angel SCREEN PRINTING EQUIPMENT SETTER, [facility] Unavailabl e Varinder Rendon Attending Unavailable Sanderson, Alejandro Referring Unavailable Mariano, Alejandro Attending Unavailable Jose Angel SCREEN PRINTING EQUIPMENT SETTER, [facility] Unavailabl e Araujo, Marlee Consulting Unavailable Jose Angel SCREEN PRINTING EQUIPMENT SETTER, [place] Referring Unavailabl e Araujo, Marlee Attending Unavailable Andrew Maldonado Attending Unavailable Jose Angel SCREEN PRINTING EQUIPMENT SETTER, [place] Referring Unavailabl e Jose Angel SCREEN PRINTING EQUIPMENT SETTER, [facility] Unavailabl e Varinder Rendon Attending Unavailable Jose Angel SCREEN PRINTING EQUIPMENT SETTER, [facility] Unavailabl e Fernando Cooper Referring Unavailable Jose Angel SCREEN PRINTING EQUIPMENT SETTER, [facility] Unavailabl e Jose Angel SCREEN PRINTING EQUIPMENT SETTER, [place] Referring Unavailabl e Araujo, Marlee Attending Unavailable Eric Casey Attending Unavailable Jose Angel SCREEN PRINTING EQUIPMENT SETTER, [facility] Unavailabl e Jose Angel SCREEN PRINTING EQUIPMENT SETTER, [place] Referring Unavailabl e Sanderson, Alejandro Attending Unavailable Jose Angel SCREEN PRINTING EQUIPMENT SETTER, [facility] Unavailabl e Araujo, Marlee Referring Unavailable Sanderson, Alejandro Referring Unavailable Mariano, Alejandro Attending Unavailable Jose Angel SCREEN PRINTING EQUIPMENT SETTER[facility] Marlee Consulting Unavailable Alejandro Quintana Consulting Unavailable Jose Angel [facility]USER, [facility] Walter SCREEN PRINTING EQUIPMENT SETTER, [place] Referring UnavailSusanne Pro Attending Unavailable Varinder Rendon Consulting Unavailable Varinder Rendon Referring Unavailable Jose Angel SCREEN PRINTING EQUIPMENT SETTER, [facility] UnavailVarinder Turner Attending Unavailable Jose Angel HAUSER, [facility] UnavailDahiana Enrique Referring Unavail able Dahiana Escamilla Attending Unavail able Jose Angel SCREEN PRINTING EQUIPMENT SETTER, [facility] Araujo, Marlee Referring Unavailable Marlee Araujo Attending Unavailable Medications Current Medications Medication Drug Class(es) Dates Sig (Normalized) Sig (Original) 0.5 ML tirzepatide 10 MG/ML Auto-Injector [Mounjaro] (3 sources) Start: 05-24-2025 End: 08-22-2025 inject 1 dose by subcutaneous injection every week Mounjaro 5 mg/0.5 mL subcutaneous solution Dose : 5 mg =, Subcutaneous, qWeek, rotate injection sites, # 4 EA, 2 Refill(s), Pharmacy: [facility], 160, cm, 05/24/25 9:47:00 EDT, Height, [...] 12/02/2024 1:26 PM EST 12/02/2024 03/02/2025 Active [id number] 200 actuat albuterol 0.09 mg/actuat metered dose inhaler (20 sources) beta2-Adrenergic Agonist Start: 09-07-2024 take 2 puff(s) by inhalation every six hours as needed for wheezing ProAir HFA MDI (90 mcg/inh) inhalation aerosol 2 puff(s), Inhalation, q6hr, PRN as needed for wheezing, # 3 EA, 3 Refill(s), Pharmacy: [facility], 158, cm, 07/22/24 8:29:00 EDT, [...] wheezing, # 3 EA, 0 Refill(s), Pharmacy: [facility], 158, loren, 06/03/24 7:47:00 EDT, [...] Comments: Mail order. Fax to ID #: [id number] Comment on above: Mail order. Fax to [phone] #: [id number] cariprazine 1.5 mg oral capsule (20 sources) [...] DAILY, # 3 EA, 3 Refill(s), Pharmacy: [facility], 158, cm, 07/22/24 8:29:00 EDT, [...] BID, # 3 EA, 0 Refill(s), Pharmacy: [facility], 158, cm, 10/12/24 11:24:00 EST, Height, kg, 10/12/24 11:24:00 EST, Dosing Weight Start Date: 11/05/24 Status: Ordered Medication Dispense Status: Completed Quantity: 3.0 Unit: EA Total Allowed Fills: 1 Fills Dispensed: 0 Start: 11-05-2024 take 1 dose by inhal ation twice daily Advair Diskus 250 mcg-50 mcg inhalation powder Dose = 1 puff(s), Inhalation, BID, # 3 EA, 0 Refill(s), Pharmacy: [facility], 158, cm, 10/12/24 11:24:00 EST, [...] BID, # 3 EA, 0 Refill(s), Pharmacy: [facility], 158, cm, 06/03/24 7:47:00 EDT, Height, [...] 17-Jun-2019 Comments: Mail order. Fax: Customer ID: [id number] Start: 07-15-2018 End: 09-03-2018 Advair Diskus 250-50 MCG/DOS E Inhalation Aerosol Powder Breath Activated ; 1 inhalation Aero Pow Br Act two times daily for 0 days Quantity: 1 {Disk} Refills: 3 Ordered: 03-Sep-2018 REN ARDON Start: 15-Jul-2018 End: 03-Sep-2018 Status: Inactive Comment on above: Mail order. Fax: 10-07 [phone] ID: [id number] hydrOXYzine hydrochloride 25 mg oral tablet (20 [...] 1 Refill(s), 09/20/24 9:27:00 AM EST, Pharmacy: [facility], Generalized anxiety disorder Major depression, [...] day(s), # 90 patch(es), 2 Refill(s), Pharmacy: [facility], 158, cm, 01/18/25 10:31:00 EDT, [...] day(s), # 30 patch(es), 2 Refill(s), Pharmacy: [facility], 158, cm, 06/03/24 7:47:00 EDT, [...] BID, # 180 tab(s), 3 Refill(s), Pharmacy: [facility], 158, cm, 06/03/24 7:47:00 EDT, Height, kg, 06/03/24 7:47:00 EDT, Dosing Weight Start Date: 06/03/24 Stop Date: 05/29/25 Status: Ordered Start: 02-15-2020 End: 11-09-2024 take 2 tablets by mouth once daily SITagliptin-metFORMIN (JANUMET XR) 50-1,000 mg TM24 Take 2 tablets by mouth once daily. [facility] 11/04/24 duplicate entry d/t insurance [facility] 02/15/2020 11/09/2024 Discontinued (Duplicate Entry) Start: [...] mg by mouth. [facility] 11/04/24 not taking [facility] 02/15/2020 11/09/2024 Discontinued (Changing Therapy/Dosage Form) [...] 14 days. 28 tablet 08/23/2024 09/06/2024 Active Tunzn-6-HFS-EPA-Fish Oil (FISH OIL) 1,000 (120-180) mg cap (20 sources) Acmji-3-HJT-EPA- Fish Oil (FISH OIL) 1,000 (120-180) mg [...] fill(s) Start Date: 07/22/24 Status: Ordered sennosides, fdc 8.6 mg oral capsule (5 sources) Start: 08-04-2025 take 2 capsules by m outh at bedtime as needed Start: 02-15-2025 senna (sennosi yessi) 8.6 mg oral tablet Dose : 17.2 mg = 2 tab(s), Oral, qHS, PRN as needed for constipation, # 50 tab(s), 0 Refill(s), Pharmacy: [facility]/pharmacy #[id number], Constipation due to opioid therapy, 160, [...] pain, # 60 tab(s), 2 Refill(s), Pharmacy: [facility], Spinal stenosis, lumbar region without [...] traumatic; Start: 04-01-2025 take 2 tablets by [facility] every eight hours as needed for pain Tramadol 50 mg tablet Active 100 mg PO Q8H as needed for pain April 01, 2025 10:00am Complies with drug therapy Start: 04-01-2025 take 2 tablets by [facility] every six hours Tramadol 50 mg tablet Active 100 mg PO EVERY 6 HOURS April 01, 2025 11:00am Start: 03-03-2025 End: 05-02-2025 traMADol 50 mg oral tablet D ose : 100 mg = 2 tab(s), Oral, q8h, PRN for pain, # 60 tab(s), 1 Refill(s), Pharmacy: [facility], Spinal stenosis, lumbar region without [...] qWeek, # 13 cap(s), 0 Refill(s), Pharmacy: [facility], 160, cm, 02/15/25 13:43:00 EDT, [...] qWeek, # 13 cap(s), 0 Refill(s), Pharmacy: [facility], 160, cm, 02/15/25 13:43:00 EDT, [...] by mouth. [facility] 11/04/24 no longer taking [facility] 01/06/2020 11/09/2024 Discontinued (Course of therapy [...] mg tablet [facility] 11/04/24 no longer taking [facility] 11/09/2024 Discontinued (Discontinued by another Health Care Provider) doxycycline hyclate 100 mg oral capsule (9 sources) Tetracycline-class Drug Start: 09-15-2024 End: 11-09-2024 take 1 capsule by mouth every twelve hours doxycycline hyclate (VIBRAMYCIN) 100 mg capsule Take 1 capsule by mouth every 12 hours. [facility] 11/04/24 no longer taking [facility] 09/15/2024 11/09/2024 Discontinued (Course of therapy completed) Start: 06-03-2024 End: 06-13-2024 doxycycline hyclate 100 mg o ral capsule Dose : 100 mg = 1 cap(s), Oral, BID, X 10 day(s), # 20 cap(s), 0 Refill(s), 06/13/24 9:27:00 AM EDT, Pharmacy: [facility] #[id number], COPD exacerbation, 158, cm, 06/03/24 7:47:00 EDT, [...] DAY, # 90 tab(s), 3 Refill(s), Pharmacy: [facility], 158, cm, 06/03/24 7:47:00 EDT, [...] mg by mouth three times a day. [facility] 11/04/24 NO LONGER TAKING JS 02/15/2020 [...] 50 MCG/ACT Nasal Suspension ; 2 (two) [place] each nostril qday for 90 days Quantity: [...] 2014 11:00pm May 20, 2024 8:58am nystatin [id number] unt/ml oral suspension (1 source) Polyene Antifungal Start: 11-03-2018 End: 11-03-2018 take 5 mL by mouth four times daily Nystatin [id number] UNIT/ML Mouth/Throat Suspension ; 5 Milliliter swish and swallow qid for 14 days Quantity: 150 {Milliliter} Refills: 0 Ordered: 03-Nov-2018 MD Cale CARRILLO Start: 03-Nov-2018 End: 03-Nov-2018 Status: Inactive Roland 9-Acj-Qbz-Fish Oil (Fish Oil) 900-1,400 mg capsule,delayed release(DR/EC) (3 sources) Start: 09-16-2024 End: 01-27-2025 Roland 3-Dok-Yjr-Fish Oil (Fish Oil) 900-1,400 mg capsule,delayed release(DR/EC) Discontinued NMA PO September 16, 2024 12:00am January 27, 2025 8:40am Start: 09-16-2024 End: 01-27-2025 Roland 4-Qce-Zdb-Fish Oil (Fi sh Oil) 900-1,400 mg capsule,delayed [...] End: 11-09-2024 predniSONE (DELTASONE) 20 mg tablet [facility] 11/04/24 NOT TAKING [facility] 06/03/2024 11/09/2024 Discontinued (Course of therapy [...] 2.5 ug by inhalation once daily Tiotropium [place] (Spiriva Respimat) 2.5 mcg/actuation mist Discontinued 2 NMA INHALATION DAILY May 11, 2024 11:00pm April 01, 2025 10:00am Start: 03-13-2024 End: 05-30-2025 Spiriva HandiHaler 18 mcg inhalation capsule Dose : 18 mcg = 1 cap(s), Inhalation, qDay, # 90 cap(s), 3 Refill(s), Pharmacy: [facility], 158, cm, 06/03/24 7:47:00 EDT, Height, kg, 06/03/24 7:47:00 EDT, Dosing Weight Start Date: 06/04/24 Stop Date: 05/30/25 Status: Ordered Start: 02-15-2020 End: 11-09-2024 take 1 capsule by inhalation once daily tiotropium (SPIRIVA) 18 mcg inhalation capsule Inhale 18 mcg as instructed once daily. [facility] 11/04/24 no longer taking [facility] 02/15/2020 11/09/2024 Discontinued (Discontinued by another Health Care Provider) traZODone hydrochloride 100 mg oral tablet (10 sources) Serotonin Reuptake Inhibitor Start: 03-13-2024 End: 11-09-2024 take 1 tablet by mouth once daily at bedtime traZODone (DESYREL) 100 mg tablet Take 100 mg by mouth daily at bedtime. [facility] 11/04/24 NO LONGER TAKING [facility] 03/13/2024 11/09/2024 Discontinued (Discontinued by another [...] Coronary arteriosclerosis; Translations: [Atherosclerotic heart disease of [place] coronary artery without angina pectoris] Onset: 5 [...] Onset: 5 07-27-2020 Chronic Comment on above: [id number] (02/19/18). ON MED Esophageal disorders (11 sources) [...] 09-16-2024 Episodic Other aftercare (2 sources) [place] [facility] [place]current[facility] drug therapy; Translations: [Other [place] [facility] [place] drug therapy] Onset: Episodic Other and [...] with minor complaints. The hospitalization was at [facility]. New medicaitons include: ASA and Isosorbide. Note for Follow-up after Hospitalization: going to [facility] with Dr Woodard for heart cath 05-27-20. [...] current use of opiate analgesic drug; Translations: [FCI (current) use of opiate analgesic] Onset: 11-10-2024 [...] for Coronary artery disease: Cardiac Surgery at [facility]. Has questions about Metoprolol ( blood pressures have been running low). Atorvastatin is currently on hold until cardio visit with Dr. Jignesh Yost on July 14, 2020. Also reported that surgeon for back wanted her to have surgery at some point for spinal stenosis, but needs to see ict analyst before proceeding with any other surgeries. 06-17-2020 Unclassified (1 source) [ADDITIONAL REASON] Transition into care - The patient is transitioning into care from a hospital ([facility]) and a summary of care was reviewed. 06-17-2020 Unclassified (1 source) !Patient notification of lab results - Dr. Damon. Note for !Patient notification of lab results : Chidi, your urine culture came back normal. So you do not have a urinary tract infection or obvious vaginal infection. Assuming you are still having trouble, I would recommend that you see a electric organ assembler and checker for that. If you want any help [...] Pt states had bilateral hip injections at [facility] Lidocaine/Kenalog on Oct 23 and Oct [...] for Transition into care: Moved here from [place] 07-07-2018 Results Test Name Value Interpretation Reference Range Facility Pulmonary Visit Reporton Pulmonary Visit Report [facility] Pulmonary Medicine [address] [place], [place] [address] OFFICE VISIT Date of Service: 08/04/25 MR#: [id number] Acct: [id number] Name: CHIDI MUSA Rep #: [id number] : 1965 Provider: NATACHA Seay Age/Sex: 60/F Location: [facility] Status: Signed Assessment and Plan Assessment and [...] Additional Comments: This note was generated with [employer] dictation software. It may contain incorrect words, [...] been se (more content not included)... [facility] Telephone (IVAN) CHIDI MUSA ([id number]) 1965 F Date Time Provider Department 07/21/25 [...] 25 mg by mouth once daily. - Vlyzq-2-OCE-EPA-Fish Oil (FISH OIL) 1,000 (120-180) mg cap [...] Encounter Status:Closed by PALAK BORJAS on 07/21/25 [facility] Bedside Glucoseon 07-19-2025 [facility] GLU 127 mg/dL High 74-106 [facility] Comment on above: Result Comment: KASSANDRA KENT OF PATIENT CARE PER NURSING PROTOCOL Performed By: #### L 501.080 #### [facility] [address] [place], [address] CNCOon 07-19-2025 [facility] Letter Text [facility] Glucose measurement at bedsi deOrdered By: Moiz Rodriguez on 07-19-2025 Glucose [Mass/Vol] 127 mg/dL High 74-106 [facility] Comment on above: MANAGEMENT OF PATIEN T CARE PER NURSING PROTOCOL MR/POSTOP.ANEon 07-19-2025 MR/POSTOP.[facility] Medical Records Department [address] [place] [address] Anesthesia Postop Eval I 07/19/25 1334 MR#: [id number] Acct: [id number] Name: CHIDI MUSA Rep #: [id number] : 1965 60 From: Kaleb Cervantes CRNA PCP: Josephine Walter NP-C Status:REG SDC Y Race: C Location: [address] Anesthesia: Postop Eval I Current Vital [...] completed: Yes 07/19/25 1337 Date Kaleb Blojailyn ACCOUNTING ADMINISTRATOR Cosigner Signature: Date CC: Signed Normal [facility] MR/[id number] 07-19-2025 [facility] Medical Records Department [address] [place] [address] Anesthesia Postop Eval II 07/19/25 1406 MR#: [id number] Acct: [id number] Name: CHIDI MUSA Rep #: [id number] : 1965 60 From: Uriel Meek MD PCP: NATACHA Loyola Status:REG [facility] Y Race: C Location: [place] [address] Anesthesia Postop Eval I Sum Postop Eval Completion status Anesthesia document: Postop Eval 1 completed: Yes Anesthesia Postop Eval I Summary Anesthesia Postop Eval I Summary: Anesthesia Postop Eval I: Assessment Summary Airway patent Yes 07/19/25 13:37 ACCOUNTING ADMINISTRATOR.JBLOU Spontaneous unlabored Yes 07/19/25 13:37 ACCOUNTING ADMINISTRATOR.JBLOU respirations Mental status nausea No 07/19/25 13:37 ACCOUNTING ADMINISTRATOR.JBLOU Vomiting No 07/19/25 13:37 ACCOUNTING ADMINISTRATOR.JBLOU Anesthesia Postop Eval I: Fluid Summary Crystalloid volume administer 1,000 07/19/25 13:37 ACCOUNTING ADMINISTRATOR.JBLOU (ml) Colloids volume administered ( ml) Blood Product volume administered (ml) Total IV fluid infused 1,000 07/19/25 13:37 ACCOUNTING ADMINISTRATOR.JBLOU Anesthesia Postop Eval I: Summary Notes Anesthesia Complication No 07/19/25 13:37 ACCOUNTING ADMINISTRATOR.JBLOU Anesthesia Complication Comment: Post-operative progress note Anesthesia: Postop Eval II Evaluation Mental status: Awake Pain Level: 1 nausea: No Vomiting: No 07/19/25 1406 Date Uriel Bojorquez Signature: Date CC: Signed Normal [facility] Operative Reporton 5 Operative Report [facility] Medical Records Department [address] [place] [address] Operative Report 07/19/25 1318 MR#: [id number] Acct: [id number] Name: CHIDI MUSA Rep #: [id number] : 1965 60 From: Moiz Rodriguez DO PCP: NATACHA Loyola Status:[facility] Location: [place] [address] Operative Report (Standard) Operative Information Date of [...] Right shoulder mini open subpectoral biceps tenodesis household refrigerator mechanic: Yes Awning Craftsman: Shefali Skinner Tasks completed by web production assistant: Opening closing, Implanting device and Retracting [...] Subscapularis was (more content not included)... Normal [facility] MR/PAT[facility] Medical Records Department [address] [place] [address] PAT - Anesthesia 07/15/25 1121 MR#: [id number] Acct: [id number] Name: CHIDI MUSA Rep #: [id number] : 1965 60 From: Wallace Wilson MD PCP: NATACHA Loyola Status:PRE [facility] Y Race: C Location: [facility] Pre-Assessment Diagnosis/Proposed Procedure Planned Operative Procedure(s): RIGHT SHOULDER ARTHROSCOPY RTC REPAIR Anesthesia History Anesthesia History - sourcing specialist: Anesthesia History - sourcing specialist Hx Hospitalization No 07/15/25 09:28 Any Problems [...] take am of surgery PONV PONV - sourcing specialist: PONV - sourcing specialist Female Yes 07/15/25 09:28 HX of Motion [...] 04/01/25 10:56 Respiratory Assessment Respiratory Assessment - sourcing specialist: Respiratory Tract Infection Hx - sourcing specialist Hx Respiratory Tract Infection No 07/15/25 09:28 STOP Sleep Apnea STOP Sleep Apnea - sourcing specialist: STOP Sleep Apnea - sourcing specialist Hx Hypertension Yes: CONTROLLED WITH MED 07/15/25 [...] Tobacco Use History Tobacco Use History - sourcing specialist: Tobacco Use History - sourcing specialist Tobacco Use Smoking Status Former smoker 07/15/25 09:28 Hx Tobacco Use No 07/15/25 09:28 Years Smoking Packs Smoked per Day Smoking Cessation Date was Yes - quit smoking within 15 07/15/25 09:28 within the last 15 years years Hx Smoking Cessation Date 09/30/23 07/15/25 09:28 Hx Smoking Cessation No 07/15/25 09:28 Counseling Hematologic Medial History 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 Normal [facility] .Auto Diffon 06-11-2025 Basophil, Absolute 0.1 10 3/mcL Normal 0.0-0.3 [facility] Comment on above: Performed By: #### T SH, GFR, CMP, A1C, ANEU, VIDH, CBC, LIPID, FT4, ADIFF #### [place] [id number] [place], [place] [address] Basophils/100 WBC (Bld) 1.1 % Normal 0.0-2.5 [facility] Comment on above: Performed By: #### T SH, GFR, CMP, A1C, ANEU, VIDH, CBC, LIPID, FT4, ADIFF #### [place] [id number] [place], [place] [address] Eosinophil, Absolute 0.1 10 3/mcL Normal 0.0-0.7 [facility] Comment on above: Performed By: #### T SH, GFR, CMP, A1C, ANEU, VIDH, CBC, LIPID, FT4, ADIFF #### [address] [address] Eosinophils/100 WBC (Bld) 1.3 % Normal 0.0-6.0 [facility] Comment on above: Performed By: #### T SH, GFR, CMP, A1C, ANEU, VIDH, CBC, LIPID, FT4, ADIFF #### [address] [address] Lymphocyte, Absolute 2.8 10 3/mcL Normal 0.9-4.3 [facility] Comment on above: Performed By: #### T SH, GFR, CMP, A1C, ANEU, VIDH, CBC, LIPID, FT4, ADIFF #### [address] [address] Lymphocytes/100 WBC (Bld) 26.5 % Normal 20.0-40.0 [facility] Comment on above: Performed By: #### T SH, GFR, CMP, A1C, ANEU, VIDH, CBC, LIPID, FT4, ADIFF #### [address] [address] Monocyte, Absolute 0.8 10 3/mcL Normal 0.1-1.4 [facility] Comment on above: Performed By: #### T SH, GFR, CMP, A1C, ANEU, VIDH, CBC, LIPID, FT4, ADIFF #### [address] [address] Monocytes/100 WBC (Bld) 7.6 % Normal 2.0-13.0 [facility] Comment on above: Performed By: #### T SH, GFR, CMP, A1C, ANEU, VIDH, CBC, LIPID, FT4, ADIFF #### [address] [address] Neutrophils/100 WBC (Bld) 63.5 % Normal 50.0-75.0 [facility] Comment on above: Performed By: #### T SH, GFR, CMP, A1C, ANEU, VIDH, CBC, LIPID, FT4, ADIFF #### [address] [address] .NEUABSon 06-11-2025 Neutrophil, Absolute 6.7 10 3/mcL Normal 2.3-8.1 [facility] Comment on above: Performed By: #### T SH, GFR, CMP, A1C, ANEU, VIDH, CBC, LIPID, FT4, ADIFF #### [place] [address] CBCon 06-11-2025 Erythrocyte distribution width (RBC) [Ratio] 13.8 % Normal 11.5-15.5 [facility] Comment on above: Performed By: #### T SH, GFR, CMP, A1C, ANEU, VIDH, CBC, LIPID, FT4, ADIFF #### [place] [address] Hematocrit (Bld) [Volume fraction] 47.9 % High 34.0-46.0 [facility] Comment on above: Performed By: #### T SH, GFR, CMP, A1C, ANEU, VIDH, CBC, LIPID, FT4, ADIFF #### [place] [address] Hgb 16.3 G/dL High 12.0-16.0 [facility] Comment on above: Performed By: #### T SH, GFR, CMP, A1C, ANEU, VIDH, CBC, LIPID, FT4, ADIFF #### [place] [address] MCH (RBC) [Entitic mass] 31.1 pg Normal 27.0-33.0 [facility] Comment on above: Performed By: #### T SH, GFR, CMP, A1C, ANEU, VIDH, CBC, LIPID, FT4, ADIFF #### [place] [address] MCHC 34.1 G/dL Normal 32.0-36.0 [facility] Comment on above: Performed By: #### T SH, GFR, CMP, A1C, ANEU, VIDH, CBC, LIPID, FT4, ADIFF #### [address] [address] MCV (RBC) [Entitic vol] 91.1 fL Normal 80.0-99.0 [facility] Comment on above: Performed By: #### T SH, GFR, CMP, A1C, ANEU, VIDH, CBC, LIPID, FT4, ADIFF #### [address] [address] Platelet 186 10 3/mcL Normal 150-450 [facility] Comment on above: Performed By: #### T SH, GFR, CMP, A1C, ANEU, VIDH, CBC, LIPID, FT4, ADIFF #### [place] [address] Platelet mean volume (Bld) [Entitic vol] 8.8 fL Normal 6.6-10.5 [facility] Comment on above: Performed By: #### T SH, GFR, CMP, A1C, ANEU, VIDH, CBC, LIPID, FT4, ADIFF #### [place] [id number] RBC 5.25 10 6/mcL Normal 4.10-5.30 [facility] Comment on above: Performed By: #### T SH, GFR, CMP, A1C, ANEU, VIDH, CBC, LIPID, FT4, ADIFF #### [address] [address] WBC 10.6 10 3/mcL Normal 4.5-10.8 [facility] Comment on above: Performed By: #### T SH, GFR, CMP, A1C, ANEU, VIDH, CBC, LIPID, FT4, ADIFF #### [address] [address] LABORATORYOrdered By: SYSTEM SYSTEM on 06-11-2025 Basophils [...] and assume there are 5 lumbar-type vertebrae. [employer] Retailer: PILLO Transcribe Date/Time: Jun 11 2025 8:56A Dictated by : ROMEO KIM MD This examination was interpreted and the report reviewed and electronically signed by: ROMEO KIM MD on Jun 11 2025 3:11PM [facility] DIVISION OF RADIOLOGY * * *Final Report* [...] within normal limits. DIVISION OF RADIOLOGY Provider, [facility] - 06/11/2025 * * *Final Report* * [...] and assume there are 5 lumbar-type vertebrae. [employer] Retailer: PILLO Transcribe Date/Time: Jun 11 2025 8:56A Dictated by : ROMEO KIM MD This examination was interpreted and the report reviewed and electronically signed by: ROMEO KIM MD on Jun 11 2025 3:11PM EST [facility] Radiology Study observation (narrative) [facility] MR Lumbar spine WO contrastO rdered By: Ccf Provider on 06-11-2025 [facility] MRI LUMBAR SPINE WO IVCONon 06-11-2025 [...] and assume there are 5 lumbar-type vertebrae. [employer] Retailer: PILLO Transcribe Date/Time: Jun 11 2025 8:56A Dictated by : ROMEO KIM MD This examination was interpreted and the report reviewed and electronically signed by: ROMEO KIM MD on Jun 11 2025 3:11PM EST [id number] Normal [facility] CNPN Telephone (PAIRayspan) CHIDI MUSA ([id number]) 1965 F Date Time Provider Department 06/10/25 [...] 25 mg by mouth once daily. - Tmyxi-0-AUC-EPA-Fish Oil (FISH OIL) 1,000 (120-180) mg cap [...] Encounter Status:Closed by DINORA GALLOWAY on 06/10/25 [facility] EUGENIEN Telephone (IVAN) CHIDI MUSA ([id number]) 1965 F Date Time Provider Department 06/10/25 [...] is taking the less medication than prescribed. [place] remind her the Lyrica can be taken [...] 25 mg by mouth once daily. - Hwtvn-1-LJE-EPA-Fish Oil (FISH OIL) 1,000 (120-180) mg cap [...] Encounter Status:Closed by PHILLIP HAJI on 06/11/25 [facility] .Auto Diffon 06-04-2025 Basophil, Absolute 0.1 10 3/mcL Normal 0.0-0.3 [facility] Comment on above: Performed By: #### L IPID, ANEU, CMP, GFR, CBC, ADIFF, A1C ####[facility] [place], [place] [address] Basophils/100 WBC (Bld) 1.3 % Normal 0.0-2.5 [facility] Comment on above: Performed By: #### L IPID, ANEU, CMP, GFR, CBC, ADIFF, A1C ####[facility] [place], [place] [address] Eosinophil, Absolute 0.1 10 3/mcL Normal 0.0-0.7 [facility] Comment on above: Performed By: #### L IPID, ANEU, CMP, GFR, CBC, ADIFF, A1C ####[facility] [place], [place] [address] Eosinophils/100 WBC (Bld) 1.6 % Normal 0.0-6.0 [facility] Comment on above: Performed By: #### L IPID, ANEU, CMP, GFR, CBC, ADIFF, A1C ####[place] [address] [place], [place] [address] Lymphocyte, Absolute 2.7 10 3/mcL Normal 0.9-4.3 [facility] Comment on above: Performed By: #### L IPID, ANEU, CMP, GFR, CBC, ADIFF, A1C ####[place] [address] [place], [place] [address] Lymphocytes/100 WBC (Bld) 30.7 % Normal 20.0-40.0 [facility] Comment on above: Performed By: #### L IPID, ANEU, CMP, GFR, CBC, ADIFF, A1C ####[address] [place], [place] [address] Monocyte, Absolute 0.8 10 3/mcL Normal 0.1-1.4 [facility] Comment on above: Performed By: #### L IPID, ANEU, CMP, GFR, CBC, ADIFF, A1C ####[place] [address] [place], [place] [address] Monocytes/100 WBC (Bld) 9.0 % Normal 2.0-13.0 [facility] Comment on above: Performed By: #### L IPID, ANEU, CMP, GFR, CBC, ADIFF, A1C ####[place] [address] [place], [place] [address] Neutrophils/100 WBC (Bld) 57.4 % Normal 50.0-75.0 [facility] Comment on above: Performed By: #### L IPID, ANEU, CMP, GFR, CBC, ADIFF, A1C ####[place] [address] [place], [place] [address] .GFRon 06-04-2025 Estimated Glomerular Filtration Rate 87 ml/min/1.73sqm Normal [facility] Comment on above: Result Comment: Stages of [...] IPID, ANEU, CMP, GFR, CBC, ADIFF, A1C ####[place] [address] [place], [place] [address] .NEUABSon 06-04-2025 Neutrophil, Absolute 5.0 10 3/mcL Normal 2.3-8.1 [facility] Comment on above: Performed By: #### L IPID, ANEU, CMP, GFR, CBC, ADIFF, A1C ####[place] [address] [place], [place] [address] A1Con 06-04-2025 Glucose [Mass/Vol] 171 mg/dL Normal [facility] Comment on above: Result Comment: Jacinta mated Average Glucose calculated by equation ((28.7xA1C)-46.7) Estimated average glucose (eAG) is a calculated value from Hemoglobin A1C and is personnel representative of the average blood glucose level in the last 2-3 month period. Normal range: less than 114 mg/dL Performed By: #### L IPID, ANEU, CMP, GFR, CBC, ADIFF, A1C ####[place] [address] [place], [place] [address] HbA1c (Bld) [Mass fraction] 7.6 % High 4.3-6.4 [facility] Comment on above: Performed By: #### L IPID, ANEU, CMP, GFR, CBC, ADIFF, A1C ####[place] [address] [place], [place] [address] CBCon 06-04-2025 Erythrocyte distribution width (RBC) [Ratio] 13.9 % Normal 11.5-15.5 [facility] Comment on above: Performed By: #### L IPID, ANEU, CMP, GFR, CBC, ADIFF, A1C ####[place] [address] [place], [place] [address] Hematocrit (Bld) [Volume fraction] 52.4 % High 34.0-46.0 [facility] Comment on above: Performed By: #### L IPID, ANEU, CMP, GFR, CBC, ADIFF, A1C ####[address] [address] [place], [place] [address] Hgb 17.5 G/dL High 12.0-16.0 [facility] Comment on above: Performed By: #### L IPID, ANEU, CMP, GFR, CBC, ADIFF, A1C ####[address] [place], [place] [address] MCH (RBC) [Entitic mass] 30.5 pg Normal 27.0-33.0 [facility] Comment on above: Performed By: #### L IPID, ANEU, CMP, GFR, CBC, ADIFF, A1C ####[address] [place], [place] [address] MCHC 33.4 G/dL Normal 32.0-36.0 [facility] Comment on above: Performed By: #### L IPID, ANEU, CMP, GFR, CBC, ADIFF, A1C ####[place] [address] [place], [place] [address] MCV (RBC) [Entitic vol] 91.4 fL Normal 80.0-99.0 [facility] Comment on above: Performed By: #### L IPID, ANEU, CMP, GFR, CBC, ADIFF, A1C ####[address] [place], [place] [address] Platelet 218 10 3/mcL Normal 150-450 [facility] Comment on above: Performed By: #### L IPID, ANEU, CMP, GFR, CBC, ADIFF, A1C ####[address] [place], [place] [address] Platelet mean volume (Bld) [Entitic vol] 8.8 fL Normal 6.6-10.5 [facility] Comment on above: Performed By: #### L IPID, ANEU, CMP, GFR, CBC, ADIFF, A1C ####[address] [place], [place] [address] RBC 5.73 10 6/mcL High 4.10-5.30 [facility] Comment on above: Performed By: #### L IPID, ANEU, CMP, GFR, CBC, ADIFF, A1C ####[address] [place], [place] [address] WBC 8.7 10 3/mcL Normal 4.5-10.8 [facility] Comment on above: Performed By: #### L IPID, ANEU, CMP, GFR, CBC, ADIFF, A1C ####[address] [place], [place] [address] CMPon 06-04-2025 Albumin Level 4.1 G/dL Normal 3.4-4.8 [facility] Comment on above: Performed By: #### L IPID, ANEU, CMP, GFR, CBC, ADIFF, A1C ####[address] [place], [place] [address] Albumin/Globulin [Mass ratio] 1.2 {ratio} Normal 1.1-2.5 [facility] Comment on above: Performed By: #### L IPID, ANEU, CMP, GFR, CBC, ADIFF, A1C ####[address] [address] [place], [place] [address] ALP [Catalytic activity/Vol] 76 U/L Normal 40-135 [facility] Comment on above: Performed By: #### L IPID, ANEU, CMP, GFR, CBC, ADIFF, A1C ####[place] [address] [place], [place] [address] ALT [Catalytic activity/Vol] 28 U/L Normal 14-59 [facility] Comment on above: Performed By: #### L IPID, ANEU, CMP, GFR, CBC, ADIFF, A1C ####[address] [place], [place] [address] AST [Catalytic activity/Vol] 12 U/L Normal 10-40 [facility] Comment on above: Performed By: #### L IPID, ANEU, CMP, GFR, CBC, ADIFF, A1C ####[address] [place], [place] [address] Bili Total 1.1 mg/dL High 0.2-1.0 [facility] Comment on above: Result Comment: Use of this assay is not recommended for patients undergoing treatment with eltrombopag due to the potential for falsely elevated results. Performed By: #### L IPID, ANEU, CMP, GFR, CBC, ADIFF, A1C ####[address] [place], [place] [address] BUN/Creatinine Ratio 28 ratio High 7-27 [facility] Comment on above: Performed By: #### L IPID, ANEU, CMP, GFR, CBC, ADIFF, A1C ####[address] [place], [place] [address] Calcium [Mass/Vol] 9.6 mg/dL Normal 8.4-10.2 [facility] Comment on above: Performed By: #### L IPID, ANEU, CMP, GFR, CBC, ADIFF, A1C ####[address] [place], [place] [address] Chloride [Moles/Vol] 102 mmol/L Normal 98-107 [facility] Comment on above: Performed By: #### L IPID, ANEU, CMP, GFR, CBC, ADIFF, A1C ####[address] [place], [place] [address] CO2 [Moles/Vol] 28 mmol/L Normal 23-31 [facility] Comment on above: Performed By: #### L IPID, ANEU, CMP, GFR, CBC, ADIFF, A1C ####[address] [place], [place] [address] Creatinine [Mass/Vol] 0.78 mg/dL Normal 0.51-0.95 [facility] Comment on above: Performed By: #### L IPID, ANEU, CMP, GFR, CBC, ADIFF, A1C ####[place] [address] [place], [place] [address] Electrolyte Balance 8.0 mEq/L Normal 4.0-15.0 [facility] Comment on above: Performed By: #### L IPID, ANEU, CMP, GFR, CBC, ADIFF, A1C ####[address] [address] [place], [place] [address] Globulin 3.3 G/dL Normal 2.7-4.4 [facility] Comment on above: Performed By: #### L IPID, ANEU, CMP, GFR, CBC, ADIFF, A1C ####[address] [place], [place] [address] Glucose [Mass/Vol] 161 mg/dL High 80-115 [facility] Comment on above: Performed By: #### L IPID, ANEU, CMP, GFR, CBC, ADIFF, A1C ####[address] [place], [place] [address] Potassium [Moles/Vol] 4.1 mmol/L Normal 3.5-5.1 [facility] Comment on above: Performed By: #### L IPID, ANEU, CMP, GFR, CBC, ADIFF, A1C ####[address] [address] Sodium [Moles/Vol] 138 mmol/L Normal 136-145 [facility] Comment on above: Performed By: #### L IPID, ANEU, CMP, GFR, CBC, ADIFF, A1C ####[address] [place], [place] [address] Total Protein 7.4 G/dL Normal 6.4-8.2 [facility] Comment on above: Performed By: #### L IPID, ANEU, CMP, GFR, CBC, ADIFF, A1C ####[address] [place], [place] [address] Urea nitrogen [Mass/Vol] 22 mg/dL High 7-18 [facility] Comment on above: Performed By: #### L IPID, ANEU, CMP, GFR, CBC, ADIFF, A1C ####[address] [place], [place] [address] James 06-04-2025 REUBEN Telephone (IVAN) CHIDI MUSA ([id number]) 1965 F Date Time Provider Department 06/04/25 [...] 25 mg by mouth once daily. - Ghixf-6-RFJ-EPA-Fish Oil (FISH OIL) 1,000 (120-180) mg cap [...] radiculopathy [M47 (more content not included)... Normal [facility] LABORATORYOrdered By: SYSTEM SYSTEM on 06-04-2025 Albumin [...] calculated value from Hemoglobin A1C and is personnel representative of the average blood glucose level [...] 06-04-2025 Cholesterol [Mass/Vol] 187 mg/dL Normal 0-200 [facility] Comment on above: Result Comment: Chol esterol Reference Interval: Less than 200 Desirable 200-239 Borderline high risk 240 and above High risk Performed By: #### L IPID, ANEU, CMP, GFR, CBC, ADIFF, A1C ####[facility] [place], [place] [address] Cholesterol in HDL [Mass/Vol] 31 mg/dL Low 40-60 [facility] Comment on above: Performed By: #### L IPID, ANEU, CMP, GFR, CBC, ADIFF, A1C ####[address] [place], [place] [address] Cholesterol in LDL [Mass/Vol] 115 mg/dL Normal 0-130 [facility] Comment on above: Performed By: #### L IPID, ANEU, CMP, GFR, CBC, ADIFF, A1C ####[address] [place], [place] [address] Triglyceride [Mass/Vol] 206 mg/dL High 0-150 [facility] Comment on above: Result Comment: Trig lyceride Reference Interval: Less than 150 Normal 150-199 Borderline high risk 200-499 High risk 500 or higher Very high risk Performed By: #### L IPID, ANEU, CMP, GFR, CBC, ADIFF, A1C ####[address] [place], [place] [address] James 06-01-2025 EUGENIE Telephone (IVAN) CHIDI MUSA ([id number]) 1965 F Date Time Provider Department 06/01/25 [...] 25 mg by mouth once daily. - Rvvrq-9-WGC-EPA-Fish Oil (FISH OIL) 1,000 (120-180) mg cap [...] Encounter Status:Closed by PALAK BORJAS on 06/01/25 [facility] CHIDI MUSA ([id number]) 1965 F Date Time Provider Department 05/26/25 NEWTON SHINE [facility] During your visit today, we recorded the [...] 25 mg by mouth once daily. - Ymdre-0-SRG-EPA-Fish Oil (FISH OIL) 1,000 (120-180) mg cap [...] Encounter Status:Closed by NEWTON SHINE on 05/27/25 [facility] James 05-25-2025 REUBEN Telephone (PAIMER) CHIDI MUSA ([id number]) 1965 F Date Time Provider Department 05/25/25 [...] 25 mg by mouth once daily. - Mhfxe-3-QHW-EPA-Fish Oil (FISH OIL) 1,000 (120-180) mg cap [...] Encounter Status:Closed by PHILLIP HAJI on 07/13/25 [facility] LABORATORYOrdered By: Yassine Govea on 05-24-2025 Amphetamines [...] Lizette 05-24-2025 Amphetamine (u) Negative Normal Negative [facility] Comment on above: Performed By: #### T SH, GFR, CMP, A1C, ANEU, VIDH, CBC, LIPID, FT4, ADIFF #### [address] [address] Barbiturate (u) Negative Normal Negative [facility] Comment on above: Performed By: #### T SH, GFR, CMP, A1C, ANEU, VIDH, CBC, LIPID, FT4, ADIFF #### [address] [address] Benzodiazepine (u) Negative Normal Negative [facility] Comment on above: Performed By: #### T SH, GFR, CMP, A1C, ANEU, VIDH, CBC, LIPID, FT4, ADIFF #### [address] [address] Cannabinoid (u) Positive Abnormal Negative [facility] Comment on above: Performed By: #### T SH, GFR, CMP, A1C, ANEU, VIDH, CBC, LIPID, FT4, ADIFF #### [address] [address] Cocaine Ql (U) Negative Normal Negative [facility] Comment on above: Performed By: #### T SH, GFR, CMP, A1C, ANEU, VIDH, CBC, LIPID, FT4, ADIFF #### [place] [address] Methadone Ql (U) Negative Normal Negative [facility] Comment on above: Performed By: #### T SH, GFR, CMP, A1C, ANEU, VIDH, CBC, LIPID, FT4, ADIFF #### [place] [address] Opiate (u) Negative Normal Negative [facility] Comment on above: Performed By: #### T SH, GFR, CMP, A1C, ANEU, VIDH, CBC, LIPID, FT4, ADIFF #### [place] [address] PCP (u) Negative Normal Negative [facility] Comment on above: Performed By: #### T SH, GFR, CMP, A1C, ANEU, VIDH, CBC, LIPID, FT4, ADIFF #### [place] [address] Urine Drugs screened: See Below [facility] Comment on above: Result Comment: This drug [...] ANEU, VIDH, CBC, LIPID, FT4, ADIFF #### [place] [address] CNCOon 05-20-2025 CNCO Letter Text [facility] OPERATIVE NOon 05-20-2025 OPERATIVE NO HNO ID: [id number] Author: NEWTON SHINE MD Service: Anesthesiology Author Type: Physician Type: Operative Report Filed: 05/20/2025 09:29 Note Text: OPERATIVE/PROCEDURE REPORT : LOG ID: [id number] SURGERY/PROCEDURE DATE: 05/20/2025 INCISION/PROCEDURE START TIME: 9:15 AM INCISION CLOSE/PROCEDURE END TIME: 9:27 AM PRE-OP/PRE-PROCEDURE DIAGNOSIS: Chronic right shoulder pain [M25.511, G89.29] POST-OP/POST-PROCEDUR E DIAGNOSIS: Chronic right shoulder pain [M25.511, G89.29] SURGERY/PROCEDURE(S): Right Suprascapular Nerve block under ultrasound guidance SURGEON(S)/PROCEDURAL IST(S) AND RECEPTION SPECIALIST(S): Surgeons and Role: * Newton Shine MD [...] None Newton Shine MD May 20, 2025 [facility] Post-Procedure Note Patient [...] at the time of discharge was Good eNwton Shine MD May 20, 2025 [facility] 05-19-2025 [facility] Telephone (IVAN) CHIDI MUSA ([id number]) 1965 F Date Time Provider Department 05/19/25 [...] 25 mg by mouth once daily. - Roovc-2-JGB-EPA-Fish Oil (FISH OIL) 1,000 (120-180) mg cap [...] Encounter Status:Closed by PALAK BORJAS on 05/20/25 [facility] CNOVon 05-18-2025 CNOV Office Visit (IVAN ) CHIDI MUSA ([id number]) 1965 F Date Time Provider Department 05/18/25 [...] PAST MEDICAL HISTORY Diagnosis Date Back pain [facility] Pain management Dr. Jorge follows Coronary artery disease 1 stent placed 09/08/19 Dr. Maldonado follows, started managaing care in 12/2023 Depression PCP manages Diabetes ([facility]) PCP manages Generalized anxiety disorder PCP manages GERD (gastroesophageal reflux disease) controlled with meds PCP follows Heart attack ([facility]) 05/2020 CABG X3-[place] Hypertension PCP manages/ controlled on meds Mixed hyperlipidemia controlled with meds PCP follows Neck pain Dr. Sheehan follows- reported falling off pickup truck bed 08/30/24 and has had problems since. muscle spasms down both arms/shoulders AVE (obstructive sleep apnea) sleep study completed 2023 in [facility]. due to anxiety/depression noncompliant with cpap. unable to tolerate mask Other emphysema ([facility]) Maria T Seay N.P. pulmonology [place]. 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 [address] Quintana follows-aspirin/plavi x PAST SURGICAL HISTORY Procedure Laterality Date ADDTL NECK SPINE FUSION 06/30/2007 [place] ARTHROTOMY W/MENISCUS REPAIR KNEE Left 06/18/2007 CABG (3) VEIN GRAFTS AND ARTERIAL GRAFT(S) 05/2020 [facility]. Rendon PAST SURGICAL HISTORY OF Left 09/02/2024 stent placement Iliac artery PAST SURGICAL HISTORY OF 09/08/2019 1 stent placed in heart REMOVAL GALLBLADDER 04/11/1986 [facility] TOTAL ABDOM HYSTERECTOMY 08/30/2005 at [facility] No family history on file. [...] Take 25 mg by mouth once daily. Vemgs-4-KCT-EPA-Fish Oil (FISH OIL) 1,000 (120-180) mg cap [...] mg by m (more content not included)... [facility] James 05-18-2025 REUBEN Telephone (IVAN) CHIDI MUSA ([id number]) 1965 F Date Time Provider Department 05/18/25 [...] well as to contact [facility] with any updates, questions, or concerns. [...] 25 mg by mouth once daily. - Pvwyn-1-WTP-EPA-Fish Oil (FISH OIL) 1,000 (120-180) mg cap [...] Status:Closed by CHRISSIE SARAH on 05/18/[address] [facility] .Auto Diffon 04-27-2025 Basophil, Absolute 0.2 10 3/mcL Normal 0.0-0.3 [facility] Comment on above: Performed By: #### T SH, GFR, CMP, A1C, ANEU, VIDH, CBC, LIPID, FT4, ADIFF ####[address] [place], [place] [address] Basophils/100 WBC (Bld) 1.9 % Normal 0.0-2.5 [facility] Comment on above: Performed By: #### T SH, GFR, CMP, A1C, ANEU, VIDH, CBC, LIPID, FT4, ADIFF ####[place] [address] [place], [place] [address] Eosinophil, Absolute 0.1 10 3/mcL Normal 0.0-0.7 [facility] Comment on above: Performed By: #### T SH, GFR, CMP, A1C, ANEU, VIDH, CBC, LIPID, FT4, ADIFF ####[facility] [place], [place] [address] Eosinophils/100 WBC (Bld) 1.4 % Normal 0.0-6.0 [facility] Comment on above: Performed By: #### T SH, GFR, CMP, A1C, ANEU, VIDH, CBC, LIPID, FT4, ADIFF ####[address] [place], [place] [address] Lymphocyte, Absolute 2.8 10 3/mcL Normal 0.9-4.3 [facility] Comment on above: Performed By: #### T SH, GFR, CMP, A1C, ANEU, VIDH, CBC, LIPID, FT4, ADIFF ####[facility] [place], [place] [address] Lymphocytes/100 WBC (Bld) 29.9 % Normal 20.0-40.0 [facility] Comment on above: Performed By: #### T SH, GFR, CMP, A1C, ANEU, VIDH, CBC, LIPID, FT4, ADIFF ####[address] [place], [place] [address] Monocyte, Absolute 0.8 10 3/mcL Normal 0.1-1.4 [facility] Comment on above: Performed By: #### T SH, GFR, CMP, A1C, ANEU, VIDH, CBC, LIPID, FT4, ADIFF ####[place] [address] [place], [place] [address] Monocytes/100 WBC (Bld) 8.1 % Normal 2.0-13.0 [facility] Comment on above: Performed By: #### T SH, GFR, CMP, A1C, ANEU, VIDH, CBC, LIPID, FT4, ADIFF ####[facility] [place], [place] [address] Neutrophils/100 WBC (Bld) 58.7 % Normal 50.0-75.0 [facility] Comment on above: Performed By: #### T SH, GFR, CMP, A1C, ANEU, VIDH, CBC, LIPID, FT4, ADIFF ####[facility] [place], [place] [address] .GFRon 04-27-2025 Estimated Glomerular Filtration Rate 100 ml/min/1.73sqm Normal [facility] Comment on above: Result Comment: Stages of [...] ANEU, VIDH, CBC, LIPID, FT4, ADIFF #### [facility] [address] [place], [place] [address] .NEUABSon 04-27-2025 Neutrophil, Absolute 5.4 10 3/mcL Normal 2.3-8.1 [facility] Comment on above: Performed By: #### T SH, GFR, CMP, A1C, ANEU, VIDH, CBC, LIPID, FT4, ADIFF ####[place] [address] [place], [place] [address] A1Con 04-27-2025 Glucose [Mass/Vol] 206 mg/dL Normal [facility] Comment on above: Result Comment: Jacinta mated Average Glucose calculated by equation ((28.7xA1C)-46.7) Estimated average glucose (eAG) is a calculated value from Hemoglobin A1C and is personnel representative of the average blood glucose level in the last 2-3 month period. Normal range: less than 114 mg/dL Performed By: #### T SH, GFR, CMP, A1C, ANEU, VIDH, CBC, LIPID, FT4, ADIFF #### [place] [address] HbA1c (Bld) [Mass fraction] 8.8 % High 4.3-6.4 [facility] Comment on above: Performed By: #### T SH, GFR, CMP, A1C, ANEU, VIDH, CBC, LIPID, FT4, ADIFF #### [place] [address] CBCon 04-27-2025 Erythrocyte distribution width (RBC) [Ratio] 14.4 % Normal 11.5-15.5 [facility] Comment on above: Performed By: #### T SH, GFR, CMP, A1C, ANEU, VIDH, CBC, LIPID, FT4, ADIFF #### [place] [address] Hematocrit (Bld) [Volume fraction] 47.1 % High 34.0-46.0 [facility] Comment on above: Performed By: #### T SH, GFR, CMP, A1C, ANEU, VIDH, CBC, LIPID, FT4, ADIFF #### [place] [address] Hgb 15.9 G/dL Normal 12.0-16.0 [facility] Comment on above: Performed By: #### T SH, GFR, CMP, A1C, ANEU, VIDH, CBC, LIPID, FT4, ADIFF #### [address] [address] MCH (RBC) [Entitic mass] 30.6 pg Normal 27.0-33.0 [facility] Comment on above: Performed By: #### T SH, GFR, CMP, A1C, ANEU, VIDH, CBC, LIPID, FT4, ADIFF #### [place] [address] MCHC 33.7 G/dL Normal 32.0-36.0 [facility] Comment on above: Performed By: #### T SH, GFR, CMP, A1C, ANEU, VIDH, CBC, LIPID, FT4, ADIFF #### [place] [address] MCV (RBC) [Entitic vol] 90.8 fL Normal 80.0-99.0 [facility] Comment on above: Performed By: #### T SH, GFR, CMP, A1C, ANEU, VIDH, CBC, LIPID, FT4, ADIFF #### [place] [address] Platelet 203 10 3/mcL Normal 150-450 [facility] Comment on above: Performed By: #### T SH, GFR, CMP, A1C, ANEU, VIDH, CBC, LIPID, FT4, ADIFF #### [place] [address] Platelet mean volume (Bld) [Entitic vol] 8.7 fL Normal 6.6-10.5 [facility] Comment on above: Performed By: #### T SH, GFR, CMP, A1C, ANEU, VIDH, CBC, LIPID, FT4, ADIFF #### [place] [address] RBC 5.19 10 6/mcL Normal 4.10-5.30 [facility] Comment on above: Performed By: #### T SH, GFR, CMP, A1C, ANEU, VIDH, CBC, LIPID, FT4, ADIFF #### [place] [id number] WBC 9.3 10 3/mcL Normal 4.5-10.8 [facility] Comment on above: Performed By: #### T SH, GFR, CMP, A1C, ANEU, VIDH, CBC, LIPID, FT4, ADIFF #### [address] [address] CMPon 04-27-2025 Albumin Level 3.5 G/dL Normal 3.4-4.8 [facility] Comment on above: Performed By: #### T SH, GFR, CMP, A1C, ANEU, VIDH, CBC, LIPID, FT4, ADIFF #### [address] [address] Albumin/Globulin [Mass ratio] 1.0 {ratio} Low 1.1-2.5 [facility] Comment on above: Performed By: #### T SH, GFR, CMP, A1C, ANEU, VIDH, CBC, LIPID, FT4, ADIFF #### [address] [address] ALP [Catalytic activity/Vol] 61 U/L Normal 40-135 [facility] Comment on above: Performed By: #### T SH, GFR, CMP, A1C, ANEU, VIDH, CBC, LIPID, FT4, ADIFF #### [address] [address] ALT [Catalytic activity/Vol] 19 U/L Normal 14-59 [facility] Comment on above: Performed By: #### T SH, GFR, CMP, A1C, ANEU, VIDH, CBC, LIPID, FT4, ADIFF #### [address] [address] AST [Catalytic activity/Vol] 13 U/L Normal 10-40 [facility] Comment on above: Performed By: #### T SH, GFR, CMP, A1C, ANEU, VIDH, CBC, LIPID, FT4, ADIFF #### [address] [address] Bili Total 0.9 mg/dL Normal 0.2-1.0 [facility] Comment on above: Result Comment: Use of this assay is not recommended for patients undergoing treatment with eltrombopag due to the potential for falsely elevated results. Performed By: #### T SH, GFR, CMP, A1C, ANEU, VIDH, CBC, LIPID, FT4, ADIFF #### [address] [address] BUN/Creatinine Ratio 23 ratio Normal 7-27 [facility] Comment on above: Performed By: #### T SH, GFR, CMP, A1C, ANEU, VIDH, CBC, LIPID, FT4, ADIFF #### [address] [address] Calcium [Mass/Vol] 9.4 mg/dL Normal 8.4-10.2 [facility] Comment on above: Performed By: #### T SH, GFR, CMP, A1C, ANEU, VIDH, CBC, LIPID, FT4, ADIFF #### [place] [address] Chloride [Moles/Vol] 105 mmol/L Normal 98-107 [facility] Comment on above: Performed By: #### T SH, GFR, CMP, A1C, ANEU, VIDH, CBC, LIPID, FT4, ADIFF #### [place] [address] CO2 [Moles/Vol] 28 mmol/L Normal 23-31 [facility] Comment on above: Performed By: #### T SH, GFR, CMP, A1C, ANEU, VIDH, CBC, LIPID, FT4, ADIFF #### [address] [address] Creatinine [Mass/Vol] 0.66 mg/dL Normal 0.51-0.95 [facility] Comment on above: Performed By: #### T SH, GFR, CMP, A1C, ANEU, VIDH, CBC, LIPID, FT4, ADIFF #### [address] [address] Electrolyte Balance 8.0 mEq/L Normal 4.0-15.0 [facility] Comment on above: Performed By: #### T SH, GFR, CMP, A1C, ANEU, VIDH, CBC, LIPID, FT4, ADIFF #### [address] [address] Globulin 3.5 G/dL Normal 2.7-4.4 [facility] Comment on above: Performed By: #### T SH, GFR, CMP, A1C, ANEU, VIDH, CBC, LIPID, FT4, ADIFF #### [address] [address] Glucose [Mass/Vol] 153 mg/dL High 80-115 [facility] Comment on above: Performed By: #### T SH, GFR, CMP, A1C, ANEU, VIDH, CBC, LIPID, FT4, ADIFF #### [address] [address] Potassium [Moles/Vol] 3.9 mmol/L Normal 3.5-5.1 [facility] Comment on above: Performed By: #### T SH, GFR, CMP, A1C, ANEU, VIDH, CBC, LIPID, FT4, ADIFF #### [address] [address] Sodium [Moles/Vol] 141 mmol/L Normal 136-145 [facility] Comment on above: Performed By: #### T SH, GFR, CMP, A1C, ANEU, VIDH, CBC, LIPID, FT4, ADIFF #### [address] [address] Total Protein 7.0 G/dL Normal 6.4-8.2 [facility] Comment on above: Performed By: #### T SH, GFR, CMP, A1C, ANEU, VIDH, CBC, LIPID, FT4, ADIFF #### [address] [address] Urea nitrogen [Mass/Vol] 15 mg/dL Normal 7-18 [facility] Comment on above: Performed By: #### T SH, GFR, CMP, A1C, ANEU, VIDH, CBC, LIPID, FT4, ADIFF #### [address] [address] FT4on 04-27-2025 Free T4 [Mass/Vol] 1.18 ng/dL Normal 0.76-1.46 [facility] Comment on above: Performed By: #### T SH, GFR, CMP, A1C, ANEU, VIDH, CBC, LIPID, FT4, ADIFF #### [address] [address] LABORATORYOrdered By: SYSTEM SYSTEM on 04-27-2025 25-hydroxyvitamin [...] calculated value from Hemoglobin A1C and is personnel representative of the average blood glucose level [...] 04-27-2025 Cholesterol [Mass/Vol] 140 mg/dL Normal 0-200 [facility] Comment on above: Result Comment: Chol esterol Reference Interval: Less than 200 Desirable 200-239 Borderline high risk 240 and above High risk Performed By: #### T SH, GFR, CMP, A1C, ANEU, VIDH, CBC, LIPID, FT4, ADIFF #### [address] [address] Cholesterol in HDL [Mass/Vol] 33 mg/dL Low 40-60 [facility] Comment on above: Performed By: #### T SH, GFR, CMP, A1C, ANEU, VIDH, CBC, LIPID, FT4, ADIFF #### [address] [address] Cholesterol in LDL [Mass/Vol] 57 mg/dL Normal 0-130 [facility] Comment on above: Performed By: #### T SH, GFR, CMP, A1C, ANEU, VIDH, CBC, LIPID, FT4, ADIFF #### [address] [address] Triglyceride [Mass/Vol] 252 mg/dL High 0-150 [facility] Comment on above: Result Comment: Trig lyceride Reference Interval: Less than 150 Normal 150-199 Borderline high risk 200-499 High risk 500 or higher Very high risk Performed By: #### T SH, GFR, CMP, A1C, ANEU, VIDH, CBC, LIPID, FT4, ADIFF #### [place] [id number] [place], [place] [address] TSHon 04-27-2025 TSH Qn 1.74 m[IU]/L Normal 0.36-3.74 [facility] Comment on above: Performed By: #### T SH, GFR, CMP, A1C, ANEU, VIDH, CBC, LIPID, FT4, ADIFF #### [place] [id number] [place], [place] [address] VIDHon 04-27-2025 Vit. D 25-Hydroxy 34.8 ng/mL Normal [facility] Comment on above: Result Comment: Inte rpretive Values Based on Total 25(OH) Vitamin D: Deficient <20 ng/mL Insufficient 20 - <30 ng/mL Sufficient 30-100 ng/mL Performed By: #### T SH, GFR, CMP, A1C, ANEU, VIDH, CBC, LIPID, FT4, ADIFF #### [address] [address] Cardiology Visit Reporton Cardiology Visit Report [facility] Heart [facility] [address] [place] [address] OFFICE VISIT Date of Service: 04/01/25 MR#: [id number] Acct: [id number] Name: CHIDI MUSA Rep #: [id number] : 1965 Provider: NATACHA michael Age/Sex: 59/F Location: [facility] Status: Signed HPI HPI History of Present Illness Details: This is a 59-year-old lady who presents today for cardiovascular follow-up visit. 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 Normal [facility] CT CERVICAL SPINE WO IVCONon 03-10-2025 CT CERVICAL SPINE WO IVCON * * *Final Report* * * DATE OF EXAM: Mar 10 2025 8:51AM [facility] 0505 - CT CERVICAL SPINE WO IVCON [...] Counting reference: Craniocervical junction. Anatomic Variants: None. Resin Shaver (topogram) images: Median sternotomy wires are present. [...] vertebrae with counting from the craniocervical junction. E Commerce Retailer: PILLO Transcribe Date/Time: Mar 10 2025 9:31A Dictated by : JAYLIN PETERSON MD This examination was interpreted and the report reviewed and electronically signed by: JAYLIN PETERSON MD on Mar 10 2025 9:40AM EST [id number] N Normal [facility] CT Cervical spine WO contras ton 03-10-2025 [...] vertebrae with counting from the craniocervical junction. E Commerce Retailer: [facility] Transcribe Date/Time: Mar 10 2025 9:31A Dictated by : JAYLIN PETERSON MD This examination was interpreted and the report reviewed and electronically signed by: JAYLIN PETERSON MD on Mar 10 2025 9:40AM EST DIVISION OF RADIOLOGY * * *Final Report* * * DATE OF EXAM: Mar 10 2025 8:51AM [facility] 0505 - CT CERVICAL SPINE WO IVCON [...] Counting reference: Craniocervical junction. Anatomic Variants: None. Resin Shaver (topogram) images: Median sternotomy wires are present. [...] neural foraminal stenosis. DIVISION OF RADIOLOGY Provider, [facility] - 03/10/2025 * * *Final Report* * * DATE OF EXAM: Mar 10 2025 8:51AM [facility] 0505 - CT CERVICAL SPINE WO IVCON [...] Counting reference: Craniocervical junction. Anatomic Variants: None. Resin Shaver (topogram) images: Median sternotomy wires are present. [...] vertebrae with counting from the craniocervical junction. E [employer] Retailer: PSCB Transcribe Date/Time: Mar 10 2025 9:31A Dictated by : JAYLIN PETERSON MD This examination was interpreted and the report reviewed and electronically signed by: JAYLIN PETERSON MD on Mar 10 2025 9:40AM EST [facility] CT Cervical spine WO contras tOrdered By: Ccf Provider on 03-10-2025 [facility] MR Cervical spine WO contras ton [...] vertebrae with counting from the craniocervical junction. E [employer] Retailer: PILLO Transcribe Date/Time: Mar 10 2025 9:21A Dictated by : JAYLIN PETERSON MD This examination was interpreted and the report reviewed and electronically signed by: JAYLIN PETERSON MD on Mar 10 2025 3:45PM [facility] DIVISION OF RADIOLOGY * * *Final Report* [...] neural foraminal stenosis. DIVISION OF RADIOLOGY Provider, [facility] - 03/10/2025 * * *Final Report* * * DATE OF EXAM: Mar 10 2025 8:25AM [facility] 0297 - MRI CERVICAL SPINE WO IVCON [...] vertebrae with counting from the craniocervical junction. E Commerce Retailer: PSCB Transcribe Date/Time: Mar 10 2025 9:21A Dictated by : JAYLIN PETERSON MD This examination was interpreted and the report reviewed and electronically signed by: JAYLIN PETERSON MD on Mar 10 2025 3:45PM [facility] MR Cervical spine WO contras tOrdered By: Ccf Provider on 03-10-2025 [facility] MRI CERVICAL SPINE WO IVCONo n [...] vertebrae with counting from the craniocervical junction. E Commerce Retailer: [facility] Transcribe Date/Time: Mar 10 2025 9:21A Dictated by : JAYLIN PETERSON MD This examination was interpreted and the report reviewed and electronically signed by: JAYLIN PETERSON MD on Mar 10 2025 3:45PM EST [id number] Normal [facility] No Panel Informationon 03-10 Radiology Study observation (narrative) [facility] Arterial study reportOrdered By: Alejandro Quintana on 03-04-2025 Noninvasive arteriosclerosis study report [facility] [address] [place] [address] Lower Ext Art Exam w/ Exercise 03/04/25 0856 MR#: [id number] Acct: [id number] Name: CHIDI MUSA Rep #:[id number] : 1965 59 From: Alejandro Green Attending Dr: HEIDI Allen Stat us: REG CLI Ordering Dr: Marlee Araujo Date: Location: [facility] Sex: F C Admitted: Reason For Study [...] Date Dictated: 03/04/25855 Date Transcribed: 03/04/25 1601 E Commerce Retailer: Signed [facility] Work Phone: Lower Ext Art Exam w/ Exerci mignon 03-04-2025 Lower Ext Art Exam w/ Exercise [facility] [place] [address] Lower Ext Art Exam w/ Exercise 03/04/2556 MR#: [id number] Acct: [id number] Name: CHIDI MUSA Rep #: [id number] : 1965 59 From: Alejandro Quintana MD [...] 03/04/25 1601 Date Alejandro Quintana MD CC: SCREEN PRINTING EQUIPMENT SETTER-C Josephine Walter; HEIDI Allen Date Dictated: 03/04/2556 Date Transcribed: 03/04/25 160 E Commerce Retailer: Signed Samira [facility] CNTHERAPYon 03-03-2025 CNTHERAPY OT/PT/Speech Visit (PTWS) CHIDI MUSA ([id number]) 1965 F Date Time Provider Department 03/03/25 7:45 AM VALENTE HERNANDEZ PTWS Date Time Provider Department Center 03/03/2025 7:45 AM [id number], COLIN PTWS [facility] Reason for Visit: Physical Therapy [503] [...] 25 mg by mouth once daily. - Oyzex-1-VRE-EPA-Fish Oil (FISH OIL) 1,000 (120-180) mg cap [...] 40 mg by mouth every afternoon. Normal [facility] CNTHERAPYon 02-26-2025 CNTHERAPY OT/PT/Speech Visit (PTWS) CHIDI MUSA ([id number]) 1965 F Date Time Provider Department 02/26/25 10:30 AM SARA WISEMAN PTWS Date Time Provider Department [place] 02/26/2025 10:30 AM [id number], BRENT PTWS Vickie Sam Reason for Visit: Physical Therapy [503] PT Progress Note [7326] Primary Visit Diagnosis:Chronic right shoulder pain [M25.511, [...] tablets by mouth every 6 hours. - Floch-9-WWA-EPA-Fish Oil (FISH OIL) 1,000 (120-180) mg cap [...] 40 mg by mouth every afternoon. Normal [facility] CNOVon 02-23-2025 CNOV Office Visit ([facility] ) CHIDI MUSA ([id number]) 1965 Date Time Provider Department 02/23/25 9:30 AM MAYANK SHEEHAN [facility] During your visit today, we recorded the following information about you: Weight Height 73.9 kg 1.6 m Hina Torres MA 02/23/2025 9:46 AM Signed 59 y/o female presents to office for a routine post op appointment. Pain is radiating into the right shoulder. Xrays obtained today. Mayank Sheehan MD 02/23/2025 9:46 AM Signed Mayank Sheehan MD [facility] Orthopedics - Orthopaedic Spine Surgeon [address], [address], [facility] [address], [place] [address] Phone: [phone] FAX: [phone] Spine Surgery Post-op Follow-up Service Date: 02/23/2025 [...] second opinion regarding the right shoulder from [facility] who recommended proceeding with surgery after [...] Take 40 mg by mouth every afternoon. Xiqnq-5-CRU-EPA-Fish Oil (FISH OIL) 1,000 (120-180) mg cap [...] (C6) 5 5 Triceps (C7) 5 5 Web Manager (C8) 5 5 Interossei (T1) 5 5 [...] pain wi (more content not included)... Normal [facility] CNTHERAPYon 02-18-2025 CNTHERAPY OT/PT/Speech Visit (PTWS) CHIDI MUSA ([id number]) 1965 F Date Time Provider Department 02/18/25 10:00 AM SARA WISEMAN PTMERARY Date Time Provider Department Center 02/18/2025 10:00 AM [id number], BRENT PTWS Vickie Sam Reason for Visit: [...] tablets by mouth every 6 hours. - Tqtil-9-WBF-EPA-Fish Oil (FISH OIL) 1,000 (120-180) mg cap [...] 40 mg by mouth every afternoon. Normal [facility] XR CERVICAL 4V AP/LAT/FLX/EX Ton 02-18-2025 XR [...] soft tissues are normal. No dynamic instability. E Commerce Retailer: [facility] Transcribe Date/Time: Feb 23 2025 8:10P Dictated by : JANELLE HORNER MD This examination was interpreted and the report reviewed and electronically signed by: JANELLE HORNER MD on Feb 23 2025 8:11PM EST [id number] Normal [facility] James 02-17-2025 [facility] Telephone ([facility]) CHIDI MUSA ([id number]) 1965 F Date Time Provider Department 02/17/25 MAYANK SHEEHAN [facility] During your visit today, we recorded the [...] tablets by mouth every 6 hours. - Vmgqk-4-RYF-EPA-Fish Oil (FISH OIL) 1,000 (120-180) mg cap [...] Encounter Status:Closed by ISAIAH QUINTANA on 02/17/25 [facility] Drea 02-16-2025 CNOV Office Visit ([facility] ) CHIDI MUSA ([id number]) 1965 F Date Time Provider Department 02/16/25 [...] PRACTITIONER: Donny PRIMARY CARE PROVIDER: Josephine Walter PASSENGER AGENT, PASSENGER AGENT CHIEF COMPLAINT: Patient presents with: Pain: Shoulder [...] PAST MEDICAL HISTORY Diagnosis Date Back pain [facility] Pain management Dr. Jorge follows Coronary artery disease 1 stent placed 09/08/19 Dr. Maldonado follows, started managaing care in 12/2023 Depression PCP manages Diabetes ([facility]) PCP manages Generalized anxiety disorder PCP manages GERD (gastroesophageal reflux disease) controlled with meds PCP follows Heart attack ([facility]) 05/2020 CABG X3-[place] Hypertension PCP manages/ controlled on meds Mixed hyperlipidemia controlled with meds PCP follows Neck pain Dr. Sheehan follows- reported falling off pickup truck bed 08/30/24 and has had problems since. muscle spasms down both arms/shoulders AVE (obstructive sleep apnea) sleep study completed 2023 in [facility]. due to anxiety/depression noncompliant with cpap. unable to tolerate mask Other emphysema ([facility]) Maria T Seay N.P. pulmonology [place]. 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 [address] Quintana follows-aspirin/plavi x PAST SURGICAL HISTORY Procedure Laterality Date ADDTL NECK SPINE FUSION 06/30/2007 [place] ARTHROTOMY W/MENISCUS REPAIR KNEE Left 06/18/2007 CABG (3) VEIN GRAFTS AND ARTERIAL GRAFT(S) 05/2020 [place]-Dr. Rendon PAST SURGICAL HISTORY OF Left 09/02/2024 stent placement Iliac artery PAST SURGICAL HISTORY OF 09/08/2019 1 stent placed in heart REMOVAL GALLBLADDER 04/11/1986 [facility] TOTAL ABDOM HYSTERECTOMY 08/30/2005 at [facility] No family history on file. [...] nasal spray Use (more content not included)... [facility] 02-16-2025 EUGENIEN Telephone (IVAN) CHIDI MUSA ([id number]) 1965 F Date Time Provider Department 02/16/25 KOBI GARSIA During your visit today, we recorded the following information about you: Neelam Manuel RN 02/16/2025 1:18 PM Signed Pt called and LM stating that her PT will do the dry needling. She needs order faxed to [phone]. Neelam Manuel RN February 16, 2025 1:17 [...] Diagnosis:Myofascial pain [M79.18] Order(s):CONSULT TO PHYSICAL THERAPY [1792] Order #: [id number]: 1 FUTURE Prescriptions as of 02/17/2025 - [...] tablets by mouth every 6 hours. - Jhucl-8-HQH-EPA-Fish Oil (FISH OIL) 1,000 (120-180) mg cap [...] Encounter Status:Closed by PHILLIP HAJI on 02/17/25 [facility] CNTHERAPYon 02-15-2025 CNTHERAPY OT/PT/Speech Visit (PTWS) CHIDI MUSA ([id number]) 1965 F Date Time Provider Department 02/15/25 8:45 AM MANUELA LIANG Date Time Provider Department [place] 02/15/2025 8:45 AM [id number] LIANG Reason for Visit: Physical Therapy [503] [...] tablets by mouth every 6 hours. - Ybrhz-9-PPI-EPA-Fish Oil (FISH OIL) 1,000 (120-180) mg cap [...] 40 mg by mouth every afternoon. Normal [facility] CNTHERAPYon 02-11-2025 CNTHERAPY OT/PT/Speech Visit (PTWS) CHIDI MUSA ([id number]) 1965 F Date Time Provider Department 02/11/25 8:45 AM MANUELA LIANG PTMERARY Date Time Provider Department Center 02/11/2025 8:45 AM [id number] LIANG Reason for Visit: Physical Therapy [503] [...] tablets by mouth every 6 hours. - Rtoqy-4-IRF-EPA-Fish Oil (FISH OIL) 1,000 (120-180) mg cap [...] Take 40 mg by mouth every afternoon. Furniture Assembler And Installer: Addendum Therapy (PT/OT/Speech/Resp) ID: [id number] 02/11/2025 9:25 AM Author: MANUELA LIANG Signed by MANUELA LIANG CLAIMS ADJUSTER SUPERVISOR on 02/11/2025 at 9:25 AM * * * This document replaces document [id number] * * * Document text: Program_ID:[id number] Access Code: [email or web address] URL: [email or web address] Date: 02-11-2025 Prepared By: Sara Wiseman Program [...] 2 sets - 10 reps ----- Normal [facility] THERAPY NTon 02-11-2025 THERAPY NT HNO ID: [id number] Author: MANUELA LIANG PTA Service: ? Author Type: Welder Tool [employer] Die Type: Therapy (PT/OT/Speech/Resp) Filed: 02/11/2025 09:25 Note Text: Program_ID:[id number] Access Code: [email or web address] URL: [email or web address] Date: 02-11-2025 Prepared By: Sara Wiseman Program [...] - 2 sets - 10 reps Normal [facility] [id number] 02-04-2025 [id number] HNO ID: [id number] Author: SARA WISEMAN PT Service: ? Author Type: Physical Therapist Type: [id number] Filed: 02/04/2025 17:38 Note Text: [facility] Rehabilitation and Sports Therapy Physical Therapy Plan of Care Certification Patient Name: Chidi Musa : 1965 [facility]CF #: [id number] Date: 02/04/2025 To: Mayank Sheehan MD From [...] 5 points. - Partially MET, will continue [place] in home exercise program. 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 - Partially MET, will continue Sleep throughout [...] Patient to be seen for Therapeutic exercise (12843), Neuromuscular re-education (77744), Manual therapy (90661), Therapeutic activities (54340), Self-fdc management (54195), Patient/Family/Caregi lena Education, Body Mechanics Training PLAN FOR NEXT VISIT: Continue with gentle therex for R UE and cervical spine. Progress to tolerance and continue manual therapy. For further details regarding this patient refer to the Physical Therapy electronically documented visit dated 02/04/2025. Provider Attestation I have reviewed the treatment plan for Chidi Paige Musa, [facility]# [id number] for the period of 02/04/25 -- 03/18/25, established on 02/04/2025. Signature certifies the need for therapy services. Normal [facility] CNTHERAPYon 02-04-2025 CNTHERAPY OT/PT/Speech Visit (PTWS) CHIDI MUSA ([id number]) 1965 F Date Time Provider Department 02/04/25 10:00 AM SARA WISEMAN PTWS Date Time Provider Department Center 02/04/2025 10:00 AM [id number], BRENT PTWS Vickie Sam Reason for Visit: [...] tablets by mouth every 6 hours. - Udbch-1-ETZ-EPA-Fish Oil (FISH OIL) 1,000 (120-180) mg cap [...] 40 mg by mouth every afternoon. [facility] REUBEN [facility]) CHIDI MUSA ([id number]) 1965 F Date Time Provider Department 02/03/25 [...] Specialty tomorrow, 02/04/25, and is wanting to picker/puller disc then. Claudia Washington, PSS 02/05/2025 12:17 [...] 25 mg by mouth once daily. - Abzgc-6-BEI-EPA-Fish Oil (FISH OIL) 1,000 (120-180) mg cap [...] Encounter Status:Closed by CHRISTELLE MARTE [facility] CHIDI MUSA ([id number]) 1965 F Date Time Provider Department 02/02/25 MAYANK SHEEHAN [facility] During your visit today, we recorded the [...] tablets by mouth every 6 hours. - Durcu-2-MJM-EPA-Fish Oil (FISH OIL) 1,000 (120-180) mg cap [...] Encounter Status:Closed by HINA TORRES on 02/02/25 [facility] CNTHERAPYon 02-02-2025 CNTHERAPY OT/PT/Speech Visit (PTWS) CHIDI MUSA ([id number]) 1965 F Date Time Provider Department 02/02/25 9:30 AM MANUELA LIANG PTWS Date Time Provider Department Center 02/02/2025 9:30 AM [id number] LIANG Reason for Visit: Physical Therapy [503] [...] tablets by mouth every 6 hours. - Qxhfe-1-YTJ-EPA-Fish Oil (FISH OIL) 1,000 (120-180) mg cap [...] 40 mg by mouth every afternoon. [facility] CNPN Telephone (AGPOB1) CHIDI MUSA ([id number]) 1965 F Date Time Provider Department 01/29/25 [...] tablets by mouth every 6 hours. - Hxkps-7-ZDE-EPA-Fish Oil (FISH OIL) 1,000 (120-180) mg cap [...] fusion [Z98.1] 12/08/2024 Encounter Status:Closed by CORNELL EXPERIENCE PLANNING STRATEGIST CASSIE KARIMI on 01/29/25 [facility] CNPN Telephone (PAIMER) CHIDI MUSA ([id number]) 1965 F Date Time Provider Department 01/29/25 [place] SHINE During your visit today, we recorded the following information about you: Neleam Manuel RN 01/29/2025 8:52 AM Signed Pt called and LM on care line noting that she changed her mind and does not want to see provider in [place]. She wants to keep seeing our PM in [place]. Pt asking to disregard previous message. Neelam Manuel RN January 29, 2025 8:51 AM Allergies As of Date: 01/29/2025 (No Known Allergies) Date Reviewed: 01/26/2025 Reviewed by: Marlee Overton MD - Fully Assessed Reason for Visit: Patient Update [1234] Cmt: Pt not wanting to leave [facility] PM Prescriptions as of 01/29/2025 - tiZANidine (ZANAFLEX) 4 mg tablet TAKE 1 TABLET BY MOUTH EVERY 6 HOURS NEEDED - oxyCODONE IR (ROXICODONE) 10 mg tab - pregabalin (LYRICA) 150 mg capsule Take 1 capsule by mouth three times a day for 30 days. - acetaminophen (TYLENOL) 500 mg tablet Take 2 tablets by mouth every 6 hours. - Eamvp-1-YMT-EPA-Fish Oil (FISH OIL) 1,000 (120-180) mg cap [...] Encounter Status:Closed by NEELAM MANUEL on 01/29/25 [facility] James 01-28-2025 CNPN Telephone (SPAGWO) CHIDI MUSA ([id number]) 1965 F Date Time Provider Department 01/28/25 PHILLIP BLAND During your visit today, we recorded the following information about you: DougFernando 01/28/2025 1:04 PM Signed Patient stopped by the [place] office today, hoping to get scheduled with [...] tablets by mouth every 6 hours. - Wmtql-7-DPS-EPA-Fish Oil (FISH OIL) 1,000 (120-180) mg cap [...] Encounter Status:Closed by FERNANDO CAMACHO on 01/28/25 [facility] CNTHERAPYon 01-28-2025 CNTHERAPY OT/PT/Speech Visit (PTWS) CHIDI MUSA ([id number]) 1965 F Date Time Provider Department 01/28/25 10:45 AM SARA WISEMAN PTMERARY Date Time Provider Department Center 01/28/2025 10:45 AM [id number], BRENT PTWS Vickie Sam Reason for Visit: [...] tablets by mouth every 6 hours. - Mprbd-2-BOV-EPA-Fish Oil (FISH OIL) 1,000 (120-180) mg cap [...] 40 mg by mouth every afternoon. Normal [facility] Cardiology Visit Reporton Cardiology Visit Report [facility] [address] [place] [address] OFFICE VISIT Date of Service: 01/27/25 MR#: [id number] Acct: [id number] Name: CHIDI MUSA Rep #: [id number] 2 : 1965 Provider: Dr. 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 [facility] (AGHWG1 ) CHIDI MUSA ([id number]) 1965 F Date Time Provider Department 01/26/25 11:00 AM [facility] During your visit today, we recorded the following information about you: Respiration Weight Height 17/minute 75.3 kg 1.575 m Marlee Overton MD 01/26/2025 12:42 PM Signed Marlee Overton MD Orthopedic Sports Medicine Surgery [address] [facility], [facility] [address] [address] [place] [address] [facility] [address], [facility] [address], [place] [address] NAME: Chidi Musa : 1965 DATE: 01/26/2025 [...] voiced understanding of these instructions. Informed Consent [place] Protocol SIGN IN Sign in communication not [...] of right (more content not included)... Normal [facility] Large Joint Arthro/Inj: R sh oulder [...] voiced understanding of these instructions. Informed Consent [place] Protocol SIGN IN Sign in communication not applicable due to emergent procedure. TIME OUT Relevant labs, photos, and/or imaging studies have been reviewed. Consent documented and matches the intended procedure. [facility] CNTHERAPYon 01-25-2025 CNTHERAPY OT/PT/Speech Visit (PTWS) CHIDI MUSA ([id number]) 1965 F Date Time Provider Department 01/25/25 11:00 AM MANUELA LIANG PTMERARY Date Time Provider Department [place] 01/25/2025 11:00 AM [id number], MARIAH PTWS Vickie Sam Reason for Visit: [...] tablets by mouth every 6 hours. - Amuci-6-ROS-EPA-Fish Oil (FISH OIL) 1,000 (120-180) mg cap [...] 40 mg by mouth every afternoon. Normal [facility] MRI SHOULDER WO IVCON RTon 0 01-21-2025 [...] seen with adhesive capsulitis. Superior labral tear. E Commerce Retailer: PSCB Transcribe Date/Time: Jan 21 2025 8:25A Dictated by : JOSÉ LUIS MOSS, DO This examination was interpreted and the report reviewed and electronically signed by: BASIM GO MD on Jan 21 2025 8:44AM EST [id number] Normal [facility] CNOVon 01-19-2025 CNOV Office Visit (AGHWG1 ) CHIDI MUSA ([id number]) 1965 F Date Time Provider Department 01/19/25 10:15 AM MARLEE OVERTON AGHWG1 During your visit today, we recorded the following information about you: Respiration Weight Height 18/minute 75.3 kg 1.575 m Marlee Overton MD 01/19/2025 10:43 AM Signed Marlee Overton MD Orthopedic Sports Medicine Surgery [address] [place] [address] [id number] [place] [address] [facility] [address], [place] [address] NAME: Chidi Musa : 1965 DATE: 01/19/2025 [...] is right-hand dominant. 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 She used to smoke but [...] Overton MD 01/19/2025 Referring Provider: MAYANK SHEEHAN [[id number]] Allergies As of Date: 01/19/2025 (No Known Allergies) Date Reviewed: 01/19/2025 Reviewed by: Marlee Overton MD - Fully Assessed Reason for Visit: New [299148] Pain [78] New [899995] Pain [78] Primary Visit Diagnosis:Left shoulder pain, unspecified chronicity [M25.512] Other Visit Diagnosis:Traumatic tear of right rotator cuff, unspecified tear extent, initial encounter [S46.011A] Order(s):XR SHOULDER GENERAL 3V OR MORE AP/TRUE AP/OTHER LEFT [9513807] Order #: [id number] CONSULT TO PHYSICAL THERAPY [9032] Order #: [id number]: 1 FUTURE MRI SHOULDER WO IVCON RIGHT [28359 (more content not included)... Normal [facility] XR Shoulder - left 3 Viewson 01-19-2025 3 views left shoulde r ordered, obtained, reviewed in office today demonstrate no acute abnormalities. [facility] RADIOLOGY [facility] Radiology Study observation (narrative) [facility] [id number] 01-13-2025 [id number] HNO ID: [id number] Author: SARA WISEMAN PT Service: ? 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 The patient presents with impairments [...] increase T-score by a minimum 5 points. Monroe in home exercise program. 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 Sleep throughout the night without pain/symptoms. Patient [...] Planned: 12 Planned Treatment Interventions: Therapeutic exercise (92618), Neuromuscular re-education (97356), Manual therapy (05000), Therapeutic activities (28420), Self-fdc management (42094), Patient/Family/Caregi lena Education, Body Mechanics Training PLAN [...] treatment plan for Chidi Paige Musa, F# [id number] for the period of 01/13/25 -- 02/24/25, established on 01/13/2025. Signature certifies the need for therapy services. Normal [facility] CNTHERAPYon 01-13-2025 CNTHERAPY OT/PT/Speech Visit (PTWS) EVACHIDI L ([id number]) 1965 F Date Time Provider Department 01/13/25 9:00 AM SARA WISEMAN PTWS Date Time Provider Department [place] 01/13/2025 9:00 AM [id number], BRENT PTWS Vickie Sam Reason for Visit: [...] tablets by mouth every 6 hours. - Vnpcj-4-AUP-EPA-Fish Oil (FISH OIL) 1,000 (120-180) mg cap [...] Take 40 mg by mouth every afternoon. Furniture Assembler And Installer: Addendum Therapy (PT/OT/Speech/Resp) ID: [id number] 01/13/2025 9:55 AM Author: SARA WISEMAN Signed by SARA WISEMAN PT on 01/13/2025 at 9:55 AM * * * This document replaces document [id number] * * * Document text: Program_ID:[id number] Access Code: [email or web address] URL: [email or web address] Date: 01-13-2025 Prepared By: Sara Wiseman Program [...] 2 sets - 10 reps ----- Normal [facility] THERAPY NTon 01-13-2025 THERAPY NT HNO ID: [id number] Author: SARA WISEMAN PT Service: ? Author Type: Physical Therapist Type: Therapy (PT/OT/Speech/Resp) Filed: 01/13/2025 09:55 Note Text: Program_ID:[id number] Access Code: [email or web address] URL: [email or web address]/ Date: 01-13-2025 Prepared By: Sara Wiseman Program [...] - 2 sets - 10 reps Normal [facility] CNOVon 01-12-2025 CNOV Office Visit (ORMB ) CHIDI MUSA ([id number]) 1965 F Date Time Provider Department 01/12/25 9:45 AM [facility] During your visit today, we recorded the [...] 01/12/2025 9:28 AM Signed Mayank Sheehan MD [facility] Orthopedics - Orthopaedic Spine Surgeon [address] [facility], [address], [place] [address] [place] [address], [address], [place] [address] Phone: [phone] ([phone] FAX: [phone] Spine Surgery Post-op Follow-up Service Date: 01/12/2025 [...] mouth every 6 hours. 720 tablet 0 Huzcm-5-PKC-EPA-Fish Oil (FISH OIL) 1,000 (120-180) mg cap [...] (C6) 5 5 Triceps (C7) 5 5 Web Manager (C8) 5 5 Interossei (T1) 5 5 Lower Extremities Right Left Psoas (L2) 5 5 Quadriceps (L3) 5 5 Dorsiflexion (L4) 5 5 EHL (L5) 5 5 Plantarflexion (S1) 5 5 Gait: Smooth reciprocal gait. Long Tract Signs: No clonus. Ruben's present bilaterally. Reflexes: S (more content not included)... [facility] XR CERVICAL 2V AP/LATon 12-29 XR CERVICAL [...] IMPRESSION: Stable postsurgical changes, no acute abnormality E Commerce Retailer: PILLO Transcribe Date/Time: Jan 13 2025 10:24A Dictated by : ALLI ASHER MD This examination was interpreted and the report reviewed and electronically signed by: ALLI ASHER MD on Jan 13 2025 10:26AM EST [id number] N [facility] XR SHLDR >/=3V AP/BUTCH AP/OTH R RTon [...] acute osseous abnormality. Moderate acromioclavicular degenerative change. E Commerce Retailer: PSCB Transcribe Date/Time: Jan 14 2025 7:03A Dictated by : CAREY DAMON MD This examination was interpreted and the report reviewed and electronically signed by: CAREY DAMON MD on Jan 14 2025 7:03AM EST [id number] N Normal [facility] 25([place])D3 [facility] 2024 25-hydroxyvitamin D3 [Mass/Vol] 17.1 ng/mL Low 31.0-80.0 [facility] Comment on above: Order Comment: Speci men Type: BLOOD SPECIMENOrdering Facility: [facility] Address: [address] [place] [address] Result Comment: Clas sification of 25 [place] Vitamin D status: Deficiency/Insufficiency: < or = 30 ng/ml. Sufficiency/Optimal Levels: 31-80 ng/mL Toxicity: > 100 ng/mL. Test performed by chemiluminescent immunoassay. Performed By: #### 1 989-3 ####[facility] LABIA [id number] [place] [address] [place] ALBUMIN/CREATININE RATIO, UR [facility] 01-07-2025 Albumin DL <= 20 mg/L (U) [Mass/Vol] mg/dL Normal [facility] Comment on above: Order Comment: Speci men Type: URINE SPECIMENOrdering Facility: [facility] Address: [address] [place] [address] Performed By: #### U ACR ####[facility] LABCLIA [id number] [place] [address] [place] Albumin/Creatinine (U) [Mass ratio] <25 Normal <30 [facility] Comment on above: Order Comment: Speci men Type: URINE SPECIMENOrdering Facility: [facility] Address: [address] [place] [address] Result Comment: Adul t Male and Female Nephrotic Criteria: <30 mg/g is considered normal to mildly increased 30-300 mg/g is considered moderately increased >300 mg/g is considered severely increased KDIGO. (2013). KDIGO 2012 Clinical Practice Guideline for the Evaluation and Management of Chronic Kidney Disease. Official Journal of the International Society of Nephrology, 3(1), 1-150. Performed By: #### U ACR ####[facility] LABCLIA [id number] [address] [place] Creatinine (U) [Mass/Vol] 47.1 mg/dL Normal 20.0-300.0 [facility] Comment on above: Order Comment: Maryellen gallardo Type: URINE SPECIMENOrdering Facility: [facility] Address: [address] [place] [address] Performed By: #### U ACR ####[facility] LABIA [id number] [address] [place] CBC panel Auto (Bld)on 01-07 Erythrocyte distribution width (RBC) [Ratio] 12.6 % Normal 11.5-15.0 [facility] Comment on above: Order Comment: Jadi men Type: BLOOD SPECIMENOrdering Facility: [facility] Address: [address] [place] [address] Performed By: #### 5 8410-2 ####[facility] LABIA [id number] [address] [place] Hematocrit (Bld) [Volume fraction] 50.4 % High 36.0-46.0 [facility] Comment on above: Order Comment: Jadi men Type: BLOOD SPECIMENOrdering Facility: [facility] Address: [address] [place] [address] Performed By: #### 5 8410-2 ####[facility] LABIA [id number] [address] OF [facility] Hemoglobin (Bld) [Mass/Vol] 16.7 g/dL High 11.5-15.5 [facility] Comment on above: Order Comment: Speci men Type: BLOOD SPECIMENOrdering Facility: [facility] Address: [address] [place] [address] Performed By: #### 5 8410-2 ####[facility] LABIA [id number] [address] [place] MCH (RBC) [Entitic mass] 29.9 pg Normal 26.0-34.0 [facility] Comment on above: Order Comment: Speci men Type: BLOOD SPECIMENOrdering Facility: [facility] Address: [address] [place] [address] Performed By: #### 5 8410-2 ####[facility] LABIA [id number] [address] MCHC (RBC) [Mass/Vol] 33.1 g/dL Normal 30.5-36.0 [facility] Comment on above: Order Comment: Speci men Type: BLOOD SPECIMENOrdering Facility: [facility] Address: [address] [place] [address] Performed By: #### 5 8410-2 ####[facility] LABIA [id number] [place] [id number] [place] [facility] MCV (RBC) [Entitic vol] 90.3 fL Normal 80.0-100.0 [facility] Comment on above: Order Comment: Speci men Type: BLOOD SPECIMENOrdering Facility: [facility] Address: [address] [place] [address] Performed By: #### 5 8410-2 ####[facility] LABCLIA [id number] [address] [address] [place] Nucleated RBC (Bld) [#/Vol] 10*3/uL Normal <0.01 [facility] Comment on above: Order Comment: Speci men Type: BLOOD SPECIMENOrdering Facility: [facility] Address: [address] [place] [address] Performed By: #### 5 8410-2 ####[facility] LABIA [id number] [place] [id number] [place] Platelet mean volume (Bld) [Entitic vol] 10.1 fL Normal 9.0-12.7 [facility] Comment on above: Order Comment: Speci men Type: BLOOD SPECIMENOrdering Facility: [facility] Address: [address] [place] [address] Performed By: #### 5 8410-2 ####[facility] LABIA [id number] [address] [place] Platelets (Bld) [#/Vol] 266 10*3/uL Normal 150-400 [facility] Comment on above: Order Comment: Speci men Type: BLOOD SPECIMENOrdering Facility: [facility] Address: [address] [place] [address] Performed By: #### 5 8410-2 ####[facility] LABIA [id number] [place] [id number] [place] RBC (Bld) [#/Vol] 5.58 10*6/uL High 3.90-5.20 [facility] Comment on above: Order Comment: Speci men Type: BLOOD SPECIMENOrdering Facility: [facility] Address: [address] [place] [address] Performed By: #### 5 8410-2 ####[facility] LABIA [id number] [place] [id number] [place] WBC (Bld) [#/Vol] 10.61 10*3/uL Normal 3.70-11.00 [facility] Comment on above: Order Comment: Speci men Type: BLOOD SPECIMENOrdering Facility: [facility] Address: [address] [place] [address] Performed By: #### 5 8410-2 ####[facility] LABCLIA [id number] [place] [id number] [place] Comprehensive metabolic 2000 panelon 01-07-2025 Albumin [Mass/Vol] 4.5 g/dL Normal 3.9-4.9 [facility] Comment on above: Order Comment: Speci men Type: BLOOD SPECIMENOrdering Facility: [facility] Address: [address] [place] [address] Performed By: #### 2 4323-8, 3016-3, 48419-9, 3024-7 ####[facility] LABCLIA [id number] [place] [id number] [place] ALP [Catalytic activity/Vol] 70 U/L Normal 34-123 [facility] Comment on above: Order Comment: Speci men Type: BLOOD SPECIMENOrdering Facility: [facility] Address: [address] [place] [address] Performed By: #### 2 4323-8, 3016-3, 12793-3, 3024-7 ####[facility] LABCLIA [id number] [place] [id number] [place] ALT [Catalytic activity/Vol] 22 U/L Normal 7-38 [facility] Comment on above: Order Comment: Speci men Type: BLOOD SPECIMENOrdering Facility: [facility] Address: [address] [place] [address] Performed By: #### 2 4323-8, 3016-3, 50726-8, 3024-7 ####[facility] LABCLIA [id number] [address] [address] [place] Anion gap [Moles/Vol] 14 mmol/L Normal 8-15 [facility] Comment on above: Order Comment: Speci men Type: BLOOD SPECIMENOrdering Facility: [facility] Address: [address] [place] [address] Performed By: #### 2 4323-8, 3016-3, 37482-7, 3024-7 ####[facility] LABCLIA [id number] [address] [address] [place] AST [Catalytic activity/Vol] 16 U/L Normal 13-35 [facility] Comment on above: Order Comment: Speci men Type: BLOOD SPECIMENOrdering Facility: [facility] Address: [address] [place] [address] Performed By: #### 2 4323-8, 3016-3, 04955-3, 3024-7 ####[facility] LABIA [id number] [address] [address] [place] Bilirubin [Mass/Vol] 0.9 mg/dL Normal 0.2-1.3 [facility] Comment on above: Order Comment: Speci men Type: BLOOD SPECIMENOrdering Facility: [facility] Address: [address] [place] [address] Performed By: #### 2 4323-8, 3016-3, 84479-1, 3024-7 ####[facility] LABCLIA [id number] [address] [address] [place] Calcium [Mass/Vol] 9.9 mg/dL Normal 8.5-10.2 [facility] Comment on above: Order Comment: Speci men Type: BLOOD SPECIMENOrdering Facility: [facility] Address: [address] [place] [address] Performed By: #### 2 4323-8, 3016-3, 70242-2, 3024-7 ####[facility] LABCLIA [id number] [address] [address] [place] Chloride [Moles/Vol] 103 mmol/L Normal 98-107 [facility] Comment on above: Order Comment: Speci men Type: BLOOD SPECIMENOrdering Facility: [facility] Address: [address] [place] [address] Performed By: #### 2 4323-8, 3016-3, 84480-6, 3024-7 ####[facility] LABIA [id number] [place] [id number] [place] CO2 [Moles/Vol] 21 mmol/L Low 22-30 [facility] Comment on above: Order Comment: Speci men Type: BLOOD SPECIMENOrdering Facility: [facility] Address: [address] [place] [address] Performed By: #### 2 4323-8, 3016-3, 88014-1, 3024-7 ####[facility] LABIA [id number] [place] [id number] [place] Creatinine [Mass/Vol] 0.59 mg/dL Normal 0.58-0.96 [facility] Comment on above: Order Comment: Speci men Type: BLOOD SPECIMENOrdering Facility: [facility] Address: [address] [place] [address] Performed By: #### 2 4323-8, 3016-3, 25507-9, 302-7 ####[facility] LABIA [id number] [place] [id number] [place] Creatinine and Glomerular filtration rate.predicted panel (S/P/Bld) 103 mL/min/1.73m??? Normal >=60 [facility] Comment on above: Order Comment: Speci men Type: BLOOD SPECIMENOrdering Facility: [facility] Address: [address] [place] [address] Result Comment: Jacinta mated Glomerular Filtration Rate [...] GFR. Performed By: #### 2 4323-8, 3016-3, 18840-2, 3023-7 ####[facility] LABCLIA [id number] [address] [address] [place] Glucose [Mass/Vol] 225 mg/dL High 74-99 [facility] Comment on above: Order Comment: Maryellen gallardo Type: BLOOD SPECIMENOrdering Facility: [facility] Address: [address] [place] [address] Result Comment: The [place] Diabetes Association (ADA) provides guidance for cutoff [...] Standards of Medical Care in Diabetes 2016, [place] [employer]. Diabetes Care. 2016.39(Suppl 1). Performed By: #### 2 4323-8, 3016-3, 80368-7, 302-7 ####[facility] LABIA [id number] [address] [address] [place] Potassium [Moles/Vol] 3.8 mmol/L Normal 3.7-5.1 [facility] Comment on above: Order Comment: Maryellen gallardo Type: BLOOD SPECIMENOrdering Facility: [facility] Address: [address] [place], [place] [address] Performed By: #### 2 4323-8, 3016-3, 17116-9, 3024-7 ####[facility] LABCLIA [id number] [facility] [address] [place] [address] [place] Protein [Mass/Vol] 7.5 g/dL Normal 6.3-8.0 [facility] Comment on above: Order Comment: Jadi men Type: BLOOD SPECIMENOrdering Facility: [facility] Address: [address] [place], [place] [address] Performed By: #### 2 4323-8, 3016-3, 66181-1, 302-7 ####[facility] LABCLIA [id number] [address] [address] [place] Sodium [Moles/Vol] 138 mmol/L Normal 136-144 [facility] Comment on above: Order Comment: Maryellen gallardo Type: BLOOD SPECIMENOrdering Facility: [facility] Address: [address] [place] [address] Performed By: #### 2 4323-8, 3016-3, 15722-4, 302-7 ####[facility] LABCLIA [id number] [address] [address] [place] Urea nitrogen [Mass/Vol] 12 mg/dL Normal 7-21 [facility] Comment on above: Order Comment: Maryellen gallardo Type: BLOOD SPECIMENOrdering Facility: [facility] Address: [address] [place] [address] Performed By: #### 2 4323-8, 3016-3, 46141-1, 3024-7 ####[facility] LABCLIA [id number] [address] [address] [place] HbA1c (Bld)on 01-07-2025 Average glucose Estimated from glycated hemoglobin (Bld) [Mass/Vol] 183 mg/dL Normal [facility] Comment on above: Order Comment: Speci men Type: BLOOD SPECIMENOrdering Facility: [facility] Address: [address] [place] [address] Result Comment: eAG: (Estimated average glucose) is a calculated value from HgbA1c and is personnel representative of the average blood glucose level in the last 2-3 month period. Performed By: #### 5 5454-3 ####[facility] LABCLIA [id number] [address] [address] [place] HbA1c (Bld) [Mass fraction] 8.0 % High 4.3-5.6 [facility] Comment on above: Order Comment: Maryellen [facility] Type: BLOOD SPECIMENOrdering Facility: [facility] Address: [address] [place] [address] Result Comment: [place] Diabetes Association guidelines indicate that patients with HgbA1c in the range 5.7-6.4% are at increased risk for development of diabetes, and intervention by lifestyle modification may be beneficial. HgbA1c greater or equal to 6.5% is considered diagnostic of diabetes. Performed By: #### 5 5454-3 ####[facility] LABCLIA [id number] [address] [address] [place] Lipid 1996 panelon 5 Cholesterol [Mass/Vol] 195 mg/dL Normal <200 [facility] Comment on above: Order Comment: Maryellen [facility] Type: BLOOD SPECIMENOrdering Facility: [facility] Address: [address] [place] [address] Result Comment: <200 mg/dL, Desirable 200-239 mg/dL, Borderline high >239 mg/dL, High Performed By: #### 2 4323-8, 3016-3, 63296-5, 3024-7 ####[facility] LABCLIA [id number] [address] [address] [place] Cholesterol in HDL [Mass/Vol] 39 mg/dL Low >39 [facility] Comment on above: Order Comment: Maryellen [facility] Type: BLOOD SPECIMENOrdering Facility: [facility] Address: [address] [place] [address] Result Comment: 40-5 9 mg/dL, Acceptable >59 mg/dL, High: Negative risk factor for coronary heart disease <40 mg/dL, Low: Positive risk factor for coronary heart disease Performed By: #### 2 4323-8, 3016-3, 79065-9, 302-7 ####[facility] LABCLIA [id number] [place] [id number] [facility] Cholesterol in LDL [Mass/Vol] 122 mg/dL High <100 [facility] Comment on above: Order Comment: Maryellen gallardo Type: BLOOD SPECIMENOrdering Facility: [facility] Address: [address] [place] [address] Result Comment: <100 mg/dL, Optimal 100-129 mg/dL, Near optimal/above optimal 130-159 mg/dL, Borderline high 160-189 mg/dL, High >189 mg/dL, Very high Secondary prevention optimal LDL Cholesterol levels are recommended to be < 70 mg/dL Performed By: #### 2 4323-8, 3016-3, 75417-9, 7 ####[facility] LABCLIA [id number] [address] [place] Cholesterol in LDL/Cholesterol in HDL [Mass ratio] 3.13 {ratio} High <2.54 [facility] Comment on above: Order Comment: Maryellen gallardo Type: BLOOD SPECIMENOrdering Facility: [facility] Address: [address] [place] [address] Result Comment: Refe rence: 1. National Cholesterol Education Program ATP III Guideline At-A-Glance Quick Desk Reference: National Heart, Lung, and Blood Igo. National Institutes of Health. 2001: NIH Publication No. 01-3305. 2. An International Atherosclerosis Society position paper: global recommendations for the management of dyslipidemia: executive summary, Atherosclerosis. 2014: 232(2):410-413. Performed By: #### 2 4323-8, 3016-3, 23425-7, 3023-7 ####[facility] LABCLIA [id number] [address] [address] [place] Cholesterol in VLDL [Mass/Vol] 34 mg/dL High <30 [facility] Comment on above: Order Comment: Speci men Type: BLOOD SPECIMENOrdering Facility: [facility] Address: [address] [place] [address] Performed By: #### 2 4323-8, 6-3, 98080-9, 3023-7 ####[facility] LABCLIA [id number] [address] [address] [place] Cholesterol non HDL [Mass/Vol] 156 mg/dL High <130 [facility] Comment on above: Order Comment: Speci men Type: BLOOD SPECIMENOrdering Facility: [facility] Address: [address] [place] [address] Result Comment: <130 mg/dL, Optimal 130-159 mg/dL, Near optimal/above optimal 160-189 mg/dL, Borderline high 190-219 mg/dL, High >219 mg/dL, Very high Secondary prevention optimal non HDL Cholesterol levels are recommended to be <100 mg/dL Performed By: #### 2 4323-8, 6-3, 85818-9, 7 ####[facility] LABCLIA [id number] [address] [place] [address] [place] Cholesterol.total/Ch olesterol in HDL [Mass ratio] 5.00 {ratio} Normal <5.10 [facility] Comment on above: Order Comment: Speci men Type: BLOOD SPECIMENOrdering Facility: [facility] Address: [address] [place] [address] Performed By: #### 2 4323-8, 6-3, 41519-6, 3023-7 ####[facility] LABCLIA [id number] [address] [address] [place] FASTING TIME 12 hrs Normal [facility] Comment on above: Order Comment: Speci men Type: BLOOD SPECIMENOrdering Facility: [facility] Address: [address] [place] [address] Performed By: #### 2 4323-8, 3016-3, 12886-3, 3027 ####[facility] LABCLIA [id number] [address] [address] [place] Triglyceride [Mass/Vol] 169 mg/dL High <150 [facility] Comment on above: Order Comment: Speci men Type: BLOOD SPECIMENOrdering Facility: [facility] Address: [address] [place] [address] Result Comment: <150 mg/dL, Normal 150-199 mg/dL, Borderline high 200-499 mg/dL, High >499 mg/dL, Very high Performed By: #### 2 4323-8, 3016-3, 94071-4, 3024-03 ####[facility] LABCLIA [id number] [address] [place] [address] [place] T4 Free SerPl-mCncon 025 Free T4 [Mass/Vol] 1.6 ng/dL Normal 0.9-1.7 [facility] Comment on above: Order Comment: Speci men Type: BLOOD SPECIMENOrdering Facility: [facility] Address: [address] [place] [address] Performed By: #### 2 4323-8, 3016-3, 99074-0, 7 ####[facility] LABCLIA [id number] [address] [address] [place] TSH SerPl-aCncon 01-07-2025 TSH Qn 1.330 m[IU]/L Normal 0.270-4.200 [facility] Comment on above: Order Comment: Speci men Type: BLOOD SPECIMENOrdering Facility: [facility] Address: [address] [place] [address] Performed By: #### 2 4323-8, 3016-3, 54458-6, 3024-7 ####[facility] VALERIE [id number] [address] [place] James 01-06-2025 CNPN Telephone ([facility]) CHIDI MUSA ([id number]) 1965 F Date Time Provider Department 01/06/25 MAYANK SHEEHAN [facility] During your visit today, we recorded the [...] tablets by mouth every 6 hours. - Ycuaj-0-EBM-EPA-Fish Oil (FISH OIL) 1,000 (120-180) mg cap [...] Encounter Status:Closed by ISAIAH QUINTANA on 01/06/25 [facility] CNPN Telephone ([employer]) CHIDI MUSA ([id number]) 1965 F Date Time Provider Department 01/06/25 MAYANK SHEEHAN [facility] During your visit today, we recorded the [...] Fully Assessed Reason for Visit: Patient Question [8039] Primary Visit Diagnosis:Status post cervical spinal fusion [...] tablets by mouth every 6 hours. - Jbxes-2-CSH-EPA-Fish Oil (FISH OIL) 1,000 (120-180) mg cap [...] Encounter Status:Closed by MAYANK SHEEHAN on 01/07/25 [facility] Drea 12-15-2024 CNOV Office Visit ([facility] ) CHIDI MUSA ([id number]) 1965 F Date Time Provider Department 12/15/24 [...] 12/15/2024 11:19 AM Signed Mayank Sheehan MD [facility] Orthopedics - Orthopaedic Spine Surgeon [address] [facility], [address], [address], [address], [place] [address] Phone: [phone] ([phone] FAX: [phone] Spine Surgery Post-op Follow-up Service Date: 12/15/2024 [...] day for 14 days. 28 capsule 0 Xmfcw-1-MHM-EPA-Fish Oil (FISH OIL) 1,000 (120-180) mg cap [...] (C6) 5 5 Triceps (C7) 5 5 Web Manager (C8) 5 5 Interossei (T1) 5 5 [...] of bending, twi (more content not included)... [facility] XR CERVICAL 2V AP/LATon 11-28 XR CERVICAL [...] No hardware complication or change in alignment. [employer]: [employer] Transcribe Date/Time: Dec 17 2024 7:03A Dictated by : CAREY DAMON MD This examination was interpreted and the report reviewed and electronically signed by: CAREY DAMON MD on Dec 17 2024 7:05AM EST [id number] N [facility] CHIDI MUSA ([id number]) 1965 F Date Time Provider Department 12/09/24 [...] pain for up to 7 days. - Ksmoz-6-JFA-EPA-Fish Oil (FISH OIL) 1,000 (120-180) mg cap [...] Status:Closed by ISAIAH QUINTANA on 12/09/[address] [facility] Basic metabolic 2000 panelon 12-02-2024 Anion gap [Moles/Vol] 7 mmol/L Normal 5-16 [facility] Comment on above: Order Comment: Speci men Type: BLOOD SPECIMENOrdering Facility: [facility] Address: [address] [place] [address] Performed By: #### 2 4321-2 ####[facility] [id number] [place] [id number] [place] Calcium [Mass/Vol] 9.4 mg/dL Normal 8.5-10.5 [facility] Comment on above: Order Comment: Speci men Type: BLOOD SPECIMENOrdering Facility: [facility] Address: [address] [place] [address] Performed By: #### 2 4321-2 ####[facility]ORYCLIA [id number] [place] [address] [place] Chloride [Moles/Vol] 108 mmol/L High 98-107 [facility] Comment on above: Order Comment: Speci men Type: BLOOD SPECIMENOrdering Facility: [facility] Address: [address] [place] [address] Performed By: #### 2 4321-2 ####[facility]ORYCLIA [id number] [place] [address] [place] CO2 [Moles/Vol] 23 mmol/L Normal 21-32 [facility] Comment on above: Order Comment: Speci men Type: BLOOD SPECIMENOrdering Facility: [facility] Address: [address] [place] [address] Performed By: #### 2 4321-2 ####[facility]ORYCLIA [id number] [place] [address] [place] Creatinine [Mass/Vol] 0.52 mg/dL Normal 0.51-0.95 [facility] Comment on above: Order Comment: Maryellen gallardo Type: BLOOD SPECIMENOrdering Facility: [facility] Address: [address] [place] [address] Result Comment: Kandice ents receiving either N-Acetylcysteine (NAC) or Metamizole prior to venipuncture, may have falsely depressed results. Performed By: #### 2 4321-2 ####[facility]ORYCL[facility] [id number] [address] OF [facility] Creatinine and Glomerular filtration rate.predicted panel (S/P/Bld) 107 mL/min/1.73m??? Normal >=60 [facility] Comment on above: Order Comment: Maryellen gallardo Type: BLOOD SPECIMENOrdering Facility: [facility] Address: [address] [place] [address] Result Comment: Jacinta mated Glomerular Filtration Rate [...] actual GFR. Performed By: #### 2 4321-2 ####[facility]ORYCLIA [id number] [place] [address] [place] Glucose [Mass/Vol] 157 mg/dL High 70-100 [facility] Comment on above: Order Comment: Maryellen gallardo Type: BLOOD SPECIMENOrdering Facility: [facility] Address: [address] [place] [address] Result Comment: The [place] Diabetes Association (ADA) provides guidance for cutoff [...] Standards of Medical Care in Diabetes 2016, [place] Diabetes Association. Diabetes Care. 2016.39(Suppl 1). Results may be falsely elevated after the administration of Sulfapyridine. Results may be falsely depressed after the administration of Sulfasalazine. Performed By: #### 2 4321-2 ####[facility]ORYCLIA [id number] [place] [address] [place] Potassium [Moles/Vol] 4.4 mmol/L Normal 3.5-5.1 [facility] Comment on above: Order Comment: Speci men Type: BLOOD SPECIMENOrdering Facility: [facility] Address: [address] [place] [address] Performed By: #### 2 4321-2 ####[facility]ORYCL[facility] [id number] [place] [address] [place] Sodium [Moles/Vol] 138 mmol/L Normal 136-145 [facility] Comment on above: Order Comment: Speci men Type: BLOOD SPECIMENOrdering Facility: [facility] Address: [address] [place] [address] Performed By: #### 2 4321-2 ####[facility]ORYCLIA [id number] [place] [id number] [place] Urea nitrogen [Mass/Vol] 12 mg/dL Normal 7-26 [facility] Comment on above: Order Comment: Speci men Type: BLOOD SPECIMENOrdering Facility: [facility] Address: [address] [place] [address] Performed By: #### 2 4321-2 ####[facility]ORYCLIA [id number] [place] [address] [place] CBC panel Auto (Bld)on 12-02 Erythrocyte distribution width (RBC) [Ratio] 12.7 % Normal 11.5-15.0 [facility] Comment on above: Order Comment: Speci men Type: BLOOD SPECIMENOrdering Facility: [facility] Address: [address] [place] [address] Performed By: #### 5 8410-2 ####[facility]ORYCLIA [id number] [address] [place] Hematocrit (Bld) [Volume fraction] 45.2 % Normal 36.0-46.0 [facility] Comment on above: Order Comment: Speci men Type: BLOOD SPECIMENOrdering Facility: [facility] Address: [address] [place] [address] Performed By: #### 5 8410-2 ####[facility]ATORYCLIA [id number] [place] [address] [place] Hemoglobin (Bld) [Mass/Vol] 15.2 g/dL Normal 11.5-15.5 [facility] Comment on above: Order Comment: Speci men Type: BLOOD SPECIMENOrdering Facility: [facility] Address: [address] [place] [address] Performed By: #### 5 8410-2 ####[facility]ATORYCLIA [id number] [address] [place] MCH (RBC) [Entitic mass] 30.7 pg Normal 26.0-34.0 [facility] Comment on above: Order Comment: Speci men Type: BLOOD SPECIMENOrdering Facility: [facility] Address: [address] [place] [address] Performed By: #### 5 8410-2 ####[facility]ATORYCLIA [id number] [place] [address] [place] MCHC (RBC) [Mass/Vol] 33.6 g/dL Normal 30.5-36.0 [facility] Comment on above: Order Comment: Speci men Type: BLOOD SPECIMENOrdering Facility: [facility] Address: [address] [place] [address] Performed By: #### 5 8410-2 ####[facility]ATORYCLIA [id number] [place] [address] [place] MCV (RBC) [Entitic vol] 91.3 fL Normal 80.0-100.0 [facility] Comment on above: Order Comment: Speci men Type: BLOOD SPECIMENOrdering Facility: [facility] Address: [address] [place] [address] Performed By: #### 5 8410-2 ####[facility]ORYCLIA [id number] [place] [id number] [place] Nucleated RBC (Bld) [#/Vol] 10*3/uL Normal <0.01 [facility] Comment on above: Order Comment: Speci men Type: BLOOD SPECIMENOrdering Facility: [facility] Address: [address] [place] [address] Performed By: #### 5 8410-2 ####[facility]ORYCLIA [id number] [place] [address] [place] Platelet mean volume (Bld) [Entitic vol] 10.2 fL Normal 9.0-12.7 [facility] Comment on above: Order Comment: Speci men Type: BLOOD SPECIMENOrdering Facility: [facility] Address: [address] [place] [address] Performed By: #### 5 8410-2 ####[facility]ATORYCLIA [id number] [place] [address] [place] Platelets (Bld) [#/Vol] 198 10*3/uL Normal 150-400 [facility] Comment on above: Order Comment: Speci men Type: BLOOD SPECIMENOrdering Facility: [facility] Address: [address] [place] [address] Performed By: #### 5 8410-2 ####[facility]ORYCLIA [id number] [place] [address] [place] RBC (Bld) [#/Vol] 4.95 10*6/uL Normal 3.90-5.20 [facility] Comment on above: Order Comment: Speci men Type: BLOOD SPECIMENOrdering Facility: [facility] Address: [address] [place] [address] Performed By: #### 5 8410-2 ####[facility]ATORYCLIA [id number] [address] [place] WBC (Bld) [#/Vol] 12.43 10*3/uL High 3.70-11.00 [facility] Comment on above: Order Comment: Speci men Type: BLOOD SPECIMENOrdering Facility: [facility] Address: [facility] [place] [address] Performed By: #### 5 8410-2 ####[facility] LABORATORYCLIA [id number] [place] [id number] [facility] CNDSon 12-02-2024 CNDS HNO ID: [id number] Author: MAYANK SHEEHAN MD Service: Orthopaedic Surgery [...] MR KELVIN FELICIANO APP2 Consulting: Andrea Harper APRN.PASSENGER AGENT FOLLOW-UP APPOINTMENTS ALREADY SCHEDULED WITH A [facility] PROVIDER: Future Appointments Date Time Provider Department [...] OiL 1,000 (120-180) mg Cap Generic drug: Kxivc-7-MXU-EPA-Fish Oil fluconazole 100 mg tablet Commonly known [...] Your Medications These medications were sent to [facility] [address] [place] [address] Hours: Saturday-Saturday 7am-7pm, Saturday 9am-1pm acetaminophen 500 mg tablet docusate sodium 100 mg capsule traMADol 50 mg tablet Discharge Physical Exam: VITAL SIGNS: BP 132/59 Pulse 66 Temp 36.8 ?C (98. (more content not included)... Normal [facility] CONSULT PROGon 12-02-2024 CONSULT PROG HNO ID: [id number] Author: ANDREA HARPER APRN.CNP Service: Hospital Medicine Author Type: Nurse Practitioner Type: Consult Progress Note Filed: 12/02/2024 14:13 Note Text: DEPARTMENT OF HOSPITAL MEDICINE CONSULT PROGRESS NOTE SERVICE DATE: 12/02/2024 SERVICE TIME: 1:08 PM Hospital Medicine/Primary Attending: Mayank Sheehan MD PRIMARY CARE PHYSICIAN: Josephine Walter CNP, PASSENGER AGENT Readmission: Highest Readmission Risk Score: 9 Subjective [...] C5 laminectomy with Dr. Sheehan on 11/30/24. [facility] is consulted for medical management. Principal Problem: #Cervical Stenosis - s/p C4-6 PSF with C5 laminectomy with Dr. Sheehan on 11/30/24 - Management including DVT prophylaxis and pain management per surgery primary. #CAD s/p PCI And CABG #HTN #HLD #PAD - Continue home A (more content not included)... Normal [facility] XR CERVICAL 2V AP/LATon 03-0 XR CERVICAL [...] decompression and fusion. No hardware complication identified. E Commerce Retailer: PSCB Transcribe Date/Time: Dec 02 2024 8:48A Dictated by : CAREY DAMON MD This examination was interpreted and the report reviewed and electronically signed by: CAREY DAMON MD on Dec 02 2024 8:49AM EST [id number] Normal [facility] Basic metabolic 2000 panelon 12-01-2024 Anion gap [Moles/Vol] 6 mmol/L Normal -16 [facility] Comment on above: Order Comment: Speci men Type: BLOOD SPECIMENOrdering Facility: [facility] Address: [address] [place] [address] Performed By: #### 2 4321-2 ####[facility] LABORATORYCLIA [id number] [place] [address] [place] Calcium [Mass/Vol] 9.1 mg/dL Normal 8.5-10.5 [facility] Comment on above: Order Comment: Speci men Type: BLOOD SPECIMENOrdering Facility: [facility] Address: [address] [place] [address] Performed By: #### 2 4321-2 ####[facility] LABORATORYCLIA [id number] [place] [address] [place] Chloride [Moles/Vol] 105 mmol/L Normal 98-107 [facility] Comment on above: Order Comment: Speci men Type: BLOOD SPECIMENOrdering Facility: [facility] Address: [address] [place] [address] Performed By: #### 2 4321-2 ####[facility] LABORATORYCLIA [id number] [place] [address] [place] CO2 [Moles/Vol] 28 mmol/L Normal 21-32 [facility] Comment on above: Order Comment: Speci men Type: BLOOD SPECIMENOrdering Facility: [facility] Address: [address] [place] [address] Performed By: #### 2 4321-2 ####[facility] LABORATORYCLIA [id number] [place] [address] [place] Creatinine [Mass/Vol] 0.68 mg/dL Normal 0.51-0.95 [facility] Comment on above: Order Comment: Speci men Type: BLOOD SPECIMENOrdering Facility: [facility] Address: [address] [place] [address] Result Comment: Kandice ents receiving either N-Acetylcysteine (NAC) or Metamizole prior to venipuncture, may have falsely depressed results. Performed By: #### 2 4321-2 ####[facility] LABORATORYCLIA [id number] [place] [address] [place] Creatinine and Glomerular filtration rate.predicted panel (S/P/Bld) 100 mL/min/1.73m??? Normal >=60 [facility] Comment on above: Order Comment: Speci men Type: BLOOD SPECIMENOrdering Facility: [facility] Address: [address] [place] [address] Result Comment: Jacinta mated Glomerular Filtration Rate [...] actual GFR. Performed By: #### 2 4321-2 ####[facility] LABORATORYCLIA [id number] [place] [address] [place] Glucose [Mass/Vol] 132 mg/dL High 70-100 [facility] Comment on above: Order Comment: Maryellen gallardo Type: BLOOD SPECIMENOrdering Facility: [facility] Address: [address] [place] [id number] Result Comment: The [place] Diabetes Association (ADA) provides guidance for cutoff [...] Standards of Medical Care in Diabetes 2016, [place] [employer] Association. Diabetes Care. 2016.39(Suppl 1). Results may be falsely elevated after the administration of Sulfapyridine. Results may be falsely depressed after the administration of Sulfasalazine. Performed By: #### 2 4321-2 ####[facility] LABORATORYCLIA [id number] [place] [address] [place] Potassium [Moles/Vol] 4.3 mmol/L Normal 3.5-5.1 [facility] Comment on above: Order Comment: Maryellen gallardo Type: BLOOD SPECIMENOrdering Facility: [facility] Address: [address] [place] [address] Performed By: #### 2 4321-2 ####[facility] LABORATORYCLIA [id number] [place] [address] [place] Sodium [Moles/Vol] 139 mmol/L Normal 136-145 [facility] Comment on above: Order Comment: Speci men Type: BLOOD SPECIMENOrdering Facility: [facility] Address: [address] [place] [address] Performed By: #### 2 4321-2 ####[facility] LABORATORYCLIA [id number] [place] [address] [place] Urea nitrogen [Mass/Vol] 12 mg/dL Normal 7-26 [facility] Comment on above: Order Comment: Speci men Type: BLOOD SPECIMENOrdering Facility: [facility] Address: [address] [place] [address] Performed By: #### 2 4321-2 ####[facility] LABORATORYCLIA [id number] [place] [address] [facility] CBC panel Auto (Bld)on 12-01 Erythrocyte distribution width (RBC) [Ratio] 12.4 % Normal 11.5-15.0 [facility] Comment on above: Order Comment: Speci men Type: BLOOD SPECIMENOrdering Facility: [facility] Address: [address] [place] [address] Performed By: #### 5 8410-2 ####[facility] LABORATORYCLIA [id number] [address] [place] Hematocrit (Bld) [Volume fraction] 43.8 % Normal 36.0-46.0 [facility] Comment on above: Order Comment: Speci men Type: BLOOD SPECIMENOrdering Facility: [facility] Address: [address] [place] [address] Performed By: #### 5 8410-2 ####[facility] LABORATORYCLIA [id number] [place] [address] [place] Hemoglobin (Bld) [Mass/Vol] 14.3 g/dL Normal 11.5-15.5 [facility] Comment on above: Order Comment: Speci men Type: BLOOD SPECIMENOrdering Facility: [facility] Address: [address] [place] [address] Performed By: #### 5 8410-2 ####[facility] LABORATORYCLIA [id number] [address] MCH (RBC) [Entitic mass] 30.4 pg Normal 26.0-34.0 [facility] Comment on above: Order Comment: Speci men Type: BLOOD SPECIMENOrdering Facility: [facility] Address: [address] [place] [address] Performed By: #### 5 8410-2 ####[facility] LABORATORYCLIA [id number] [address] [place] MCHC (RBC) [Mass/Vol] 32.6 g/dL Normal 30.5-36.0 [facility] Comment on above: Order Comment: Speci men Type: BLOOD SPECIMENOrdering Facility: [facility] Address: [address] [place] [address] Performed By: #### 5 8410-2 ####[facility] LABORATORYCLIA [id number] [address] MCV (RBC) [Entitic vol] 93.0 fL Normal 80.0-100.0 [facility] Comment on above: Order Comment: Speci men Type: BLOOD SPECIMENOrdering Facility: [facility] Address: [address] [place] [address] Performed By: #### 5 8410-2 ####[facility] LABORATORYCLIA [id number] [address] Nucleated RBC (Bld) [#/Vol] 10*3/uL Normal <0.01 [facility] Comment on above: Order Comment: Speci men Type: BLOOD SPECIMENOrdering Facility: [facility] Address: [address] [place] [address] Performed By: #### 5 8410-2 ####[facility] LABORATORYCLIA [id number] [address] [place] Platelet mean volume (Bld) [Entitic vol] 9.7 fL Normal 9.0-12.7 [facility] Comment on above: Order Comment: Speci men Type: BLOOD SPECIMENOrdering Facility: [facility] Address: [address] [place] [address] Performed By: #### 5 8410-2 ####[facility] LABORATORYCLIA [id number] [place] [address] [facility] Platelets (Bld) [#/Vol] 202 10*3/uL Normal 150-400 [facility] Comment on above: Order Comment: Speci men Type: BLOOD SPECIMENOrdering Facility: [facility] Address: [address] [place] [address] Performed By: #### 5 8410-2 ####[facility] LABORATORYCLIA [id number] [place] [address] [facility] RBC (Bld) [#/Vol] 4.71 10*6/uL Normal 3.90-5.20 [facility] Comment on above: Order Comment: Speci men Type: BLOOD SPECIMENOrdering Facility: [facility] Address: [address] [place] [address] Performed By: #### 5 8410-2 ####[facility] LABORATORYCLIA [id number] [place] [address] [facility] [place] WBC (Bld) [#/Vol] 11.80 10*3/uL High 3.70-11.00 [facility] Comment on above: Order Comment: Speci men Type: BLOOD SPECIMENOrdering Facility: [facility] Address: [address] [place] [address] Performed By: #### 5 8410-2 ####[facility] LABORATORYCLIA [id number] [place] [address] [facility] CONSULTon 12-01-2024 CONSULT HNO ID: [id number] Author: DANYELL CROOKS PA Service: Hospital Medicine Author Type: Physician Tire Spotter Type: Consults Filed: 12/01/2024 15:32 Note Text: [...] C5 laminectomy with Dr. Sheehan on 11/30/24. [facility] is consulted for medical management. Preoperative labwork [...] Prophylaxis/Anticoagu lants 11/30/242014 vte pharmacologic prophylaxis contraindicated (tx,ne) 11/30/242014 pneumatic compression sleeve(s) ([place]) 11/30/242014 activity - mobilize patient ([place]) VTE Prophylaxis: Other - Management including [...] TIME: 9:52 AM PAGER/CONTACT #: [phone] [facility] NURSING PROGon 12-01-2024 NURSING PROG HNO ID: [id number] Author: DESIREE BLAS RN Service: Nursing Author Type: Registered Nurse Type: Nursing Progress Note Filed: 12/01/2024 10:40 Note Text: Spoke to Cami at this time regarding LSO that was ordered Saturday, per Tammi , brace had to be special fitted and ordered and should be delivered to pt this afternoon. Case management and therapies updated at this time. [facility] THERAPY NTon 12-01-2024 THERAPY NT HNO ID: [id number] Author: TIERRA VU, OTR/L Service: Occupational Therapy Author Type: Occupational Therapist Type: Therapy (PT/OT/Speech/Resp) Filed: 12/01/2024 12:03 Note Text: Occupational Therapy Evaluation Summary SERVICE DATE: 12/01/2024 SERVICE TIME: 1108 to 1153 ROOM: [place] [address] OT 6 Clicks Score: 24 Total Joint [...] daily living (ADL) TREATMENT INTERVENTIONS Evaluation, Self Correction Management (26045) Timed Code Treatment (minutes): 30 Skilled Treatment Time (minutes): 45 TRAINING AND EDUCATION PROVIDED Activity Adaptation/Compensato ry Strategies, Bed Mobility, Benefits of In-Hospital Mobility, Discharge Planning, Edema Management, Energy Conservation, Functional Mobility Involving ADLs, Grooming Tasks, Insight into Deficits, Lower Extremity Bathing, Lower Extremity Dressing, Pain Management, Positioning, Precautions/Restricti ons, Role of Occupational Therapy, Safety/Judgment, Sitting Balance to Improve [place] with ADLs/Self-Care, Standing Balance to Improve [place] with ADLs/Self-Care, Transfer - Sit to Stand, [...] December 01, 2024 TIME: 12:[address] [facility] THERAPY NT HNO ID: [id number] Author: ARCENIO NOONAN PT Service: Physical Therapy Author Type: Physical Therapist Type: Therapy (PT/OT/Speech/Resp) Filed: 12/01/2024 10:54 Note Text: Physical Therapy Evaluation Summary SERVICE DATE: 12/01/2024 SERVICE TIME: 0930 to 0954 ROOM: [id number] PT 6 Clicks Score: 24 Total Joint [...] Reduced mobility-other TREATMENT INTERVENTIONS Evaluation, Therapeutic Activity (07329) Timed Code Treatment (minutes): 9 Skilled Treatment [...] December 01, 2024 TIME: 10:[address] [facility] ANES POSTPROC EVALon 025 ANES POSTPROC EVAL HNO ID: [id number] Author: KEN ZARATE MD Service: Anesthesiology Author [...] Surgeons: Mayank Sheehan MD Responsible Provider: Ken Zartae MD Anesthesia Type: general ASA Status: 3 [...] November 30, 2024 TIME: 6:53 PM CSN: [id number] [facility] ANES PRE-OPon 11-30-2024 ANES PRE-OP HNO ID: [id number] Author: ED DO DO Service: ? Author [...] and consent discussed: yes. Patient / Responsible Constitution Party agrees to proceed: yes Patient / [...] November 30, 2024 TIME: 11:36 AM CSN: [id number] [facility] BRIEF OP NOTon 11-30-2024 BRIEF OP NOT HNO ID: [id number] Author: MAYANK SHEEHAN MD Service: Orthopaedic Surgery Author Type: Physician Type: Brief Op Note Filed: 11/30/2024 17:16 Note Text: Orthopaedic Surgery Brief Operative Note Log ID: [id number] Surgery/Procedure Date: 11/30/2024 Incision/Procedure Start Time: 3:24 PM Incision Close/Procedure End Time: 4:59 PM Surgeon(s)/Procedural ist(s) and Tire Spotter(s): Surgeons and Role: * Mayank Sheehan MD - Primary Physician Tire Spotter: Hannah Morrow PA-C Gun Barrel Finisher: Gita Lindsey SA Procedure(s): C4-6 PSF with C5 laminectomy Anesthesia: General Pre-Op/Pre-Procedure Diagnosis: Cervical myelopathy Post-Op/Post-Procedur e Diagnosis: Same Fluids: 1,800 mL Estimated Blood Loss: 50 mL Rockwell: None Specimens: None Drains: 10 [place] Hemovac Findings: See operative report. Complications: None [...] - maintain until POD #5. Drain(s): 10 [place] Hemovac - maintain until output <30 mL/shift. PT/OT: Evaluation AND recommendations. DVT PPx: SCDs. No chemoprophylaxis. Antibiotics: Ancef 2 g Q8H and Vancomycin 1 g Q12 H for 24 hours. Rockwell: None. Imaging: X-rays of C-spine on POD #2. Anticipated Length of Stay/Disposition: 3-4 days/Home. Mayank Sheehan MD Orthopaedic Spine Surgery [facility] HISTORY PHYSICALon HISTORY PHYSICAL HNO ID: [id number] Author: MAYANK SHEEHAN MD Service: Orthopaedic Surgery [...] PAST MEDICAL HISTORY Diagnosis Date Back pain [facility] Pain management Dr. Jorge follows Coronary artery disease 1 stent placed 09/08/19 Dr. Maldonado follows, started managaing care in 12/2023 Depression PCP manages Diabetes ([facility]) PCP manages Generalized anxiety disorder PCP manages GERD (gastroesophageal reflux disease) controlled with meds PCP follows Heart attack ([facility]) 05/2020 CABG X3-Shay Hypertension PCP manages/ controlled on meds Mixed hyperlipidemia controlled with meds PCP follows Neck pain Dr. Sheehan follows- reported falling off pickup truck bed 08/30/24 and has had problems since. muscle spasms down both arms/shoulders AVE (obstructive sleep apnea) sleep study completed 2023 in [facility]. due to anxiety/depression noncompliant with cpap. unable to tolerate mask Other emphysema ([facility]) Maria T Seay N.P. pulmonology vickie. 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 [address] Quintana follows-aspirin/plavi x PAST SURGICAL HISTORY Procedure Laterality Date ADDTL NECK SPINE FUSION 06/30/2007 [place] ARTHROTOMY W/MENISCUS REPAIR KNEE Left 06/18/2007 CABG (3) VEIN GRAFTS AND ARTERIAL GRAFT(S) 05/2020 Shiela Rendon PAST SURGICAL HISTORY OF Left 09/02/2024 stent placement Iliac artery PAST SURGICAL HISTORY OF 09/08/2019 1 stent placed in heart REMOVAL GALLBLADDER 04/11/1986 [facility] TOTAL ABDOM HYSTERECTOMY 08/30/2005 at [facility] Depression Screening Never done Anxiety [...] 6 hours as needed for pain.Disp: Rfl: Qvmgh-4-REL-EPA-Fish Oil (FISH OIL) 1,000 (120-180) mg capTake 2 g by mouth once daily. Last dose 11/09 due to surgeryDisp: Rfl: Allergies (more content not included)... [facility] OPERATIVE NOon 11-30-2024 OPERATIVE NO HNO ID: [id number] Author: MAYANK SHEEHAN MD Service: Orthopaedic Surgery Author Type: Physician Type: Operative Report Filed: 11/30/2024 17:21 Note Text: Orthopaedic Surgery Operative Report Patient Name: Chidi Musa Log ID: [id number] Surgery/Procedure Date: 11/30/2024 Incision/Procedure Start Time: 3:24 PM Incision Close/Procedure End Time: 4:59 PM Surgeon(s): Mayank Sheehan MD Tire Spotter(s): Surgeons and Role: * Mayank Sheehan MD - Primary Physician Tire Spotter: Hannah Morrow PA-C Gun Barrel Finisher: Gita Lindsey SA PARTICIPATION IN SURGERY/PROCEDURE: The advanced practice provider provided surgical dressing maker services in a non-teaching setting. My assistant teacher was present during patient positioning, prepping, draping, [...] The patient head was stabilized using the [employer] cranial stabilization system. The patient was positioned [...] screw tulips and provisionally tightened. A final premises technician was then used. Copious irrigation was undertaken [...] interrupted 0-Ethibond. The fascia was closed with ddofhy-tv-vzauq 0-Ethibond, followed by inverted 2-0 Vicryl dermal stitches and a running 2-0 Nylon for skin closure. A sterile dressing was applied. The patient was flipped supine, and the Fernando was then (more content not included)... Normal [facility] XR VERIFY LEVEL [id number] 11-30-2024 XR VERIFY LEVEL C-SPINE-NB * * [...] surgeon at the time of the examination. E Commerce Retailer: PILLO Transcribe Date/Time: Nov 30 2024 3:46P Dictated by : CAREY DAMON MD This examination was interpreted and the report reviewed and electronically signed by: CAREY DAMON MD on Nov 30 2024 3:46PM EST [id number] [facility] CHIDI MUSA ([id number]) 1965 F Date Time Provider Department 11/25/24 MAYANK SHEEHAN [facility] During your visit today, we recorded the following information about you: Kaleb Schultz LPN 11/25/2024 9:09 AM Signed Left 2nd message for Dr. Walter's nurse requesting update on clearance form. Asked for nurse to return call. Kaleb Schultz LPN Allergies As of Date: 11/25/2024 (No Known Allergies) Date Reviewed: 11/09/2024 Reviewed by: Lincoln Morgan, REN - Fully Assessed Reason for Visit: Preparations For Surgery [898] Cmt: Medical clearance Prescriptions as of 11/25/2024 - Vuxwq-0-OWC-EPA-Fish Oil (FISH OIL) 1,000 (120-180) mg cap [...] Encounter Status:Closed by KALEB SCHULTZ on 11/25/24 [facility] James 11-24-2024 [place] Telephone ([facility]) CHIDI MUSA ([id number]) 1965 F Date Time Provider Department 11/24/24 [...] Surgery [898] Prescriptions as of 11/24/2024 - Adggt-9-ZOD-EPA-Fish Oil (FISH OIL) 1,000 (120-180) mg cap [...] Encounter Status:Closed by KALEB SCHULTZ on 11/24/24 [facility] MR/BMSTahmina 11-17-2024 MR/BMS.BRYANT [facility] Vascular Surgery [address] [place] [address]. [address] [place] [address] OFFICE VISIT Date of Service: 11/17/24 MR#: [id number] Acct: [id number] Name: EVACHIDI BASIL Rep #: [id number] : 1965 Provider: HEIDI Allen Age/Sex: 59/F Location: [facility] Status: Signed Intake Vital Signs 11/04/24 08:58 [...] QDAY 09/16/24 11/17/24 Hi story release omega 6-jwe-dsj-fish oil 900 cap PO 09/16/24 11/17/24 History [...] COPD (chronic obstructive pulmonary disease) Atherosclerosis of [place] arteries of extremities with rest pain, left [...] and she is scheduled for intervention with [facility] spine in early November. Recall that she recently underwent angioplasty and stent of the L YEIMY on 09/02/24 which was performed due to either recurrent or previously missed stenosis just proximal and inferior to her prior YEIMY stent which threatened the ongoing patency of this prior stent which had been placed when patient was living in [place]. Since this procedure, she has not had any new/worsened lower extremity pain, swelling, discoloration (more content not included)... [facility] CHIDI MUSA ([id number]) 1965 F Date Time Provider Department 11/13/24 RENE DAYRoshni During your visit today, we recorded the following information about you: Celine Hamilton MA 11/13/2024 5:58 AM Signed [employer] No-Show Documentation Chidi Musa no showed for an appointment on 11/11/2024 with N/Jer Day APRN. at [facility]. The patient was was scheduled for [...] Fully Assessed Prescriptions as of 11/13/2024 - Qcfgl-1-BTJ-EPA-Fish Oil (FISH OIL) 1,000 (120-180) mg cap [...] Encounter Status:Closed by CELINE HAMILTON on 11/13/24 [facility] CNCOon 11-12-2024 CNCO Letter Text [facility] EKGon 11-09-2024 Electrocardiogram Ventricular Rate : 7 4 BPM Atrial Rate : 74 BPM P-R Interval : 166 ms QRS Duration : 108 ms Q-T Interval : 406 ms QTC Calculation(Bazett) : 450 ms Calculated P [place] : 29 degrees Calculated R [place] : 4 degrees Calculated T [place] : 25 degrees Normal sinus rhythm Normal ECG No previous ECGs available Confirmed by REANNA SILVA MD ([id number]) on 11/09/2024 8:53:27 PM NAME : CHIDI MUSA PID : [id number] : 1965 Gender : Female Race : ORD : Procedure Date : Nov 09 2024 09:42:11 Edit Date : Nov 09 2024 20:53:31 Diagnosis: Normal sinus rhythm Normal ECG No previous ECGs available Confirmed by REANNA SILVA MD ([id number]) on 11/09/2024 8:53:27 PM Test Reason : Location : 2 : [facility] Overread By : REANNA SILVA MD Edited By : REANNA SILVA MD Referred By : QIANA Acquired by : TEMO [facility] HbA1c (Bld)on 11-09-2024 Average glucose Estimated from glycated hemoglobin (Bld) [Mass/Vol] 163 mg/dL [facility] Comment on above: Order Comment: Maryellen gallardo Type: BLOOD SPECIMENOrdering Facility: [facility] Address: [address] [place] [address] Result Comment: eAG: (Estimated average glucose) is a calculated value from HgbA1c and is personnel representative of the average blood glucose level in the last 2-3 month period. Performed By: #### 5 5454-3 ####[facility] LABCLIA [id number] [place] [address] [place] HbA1c (Bld) [Mass fraction] 7.3 % High 4.3-5.6 [facility] Comment on above: Order Comment: Maryellen gallardo Type: BLOOD SPECIMENOrdering Facility: [facility] Address: [address] [place] [address] Result Comment: Amer ican Diabetes Association guidelines indicate that patients with HgbA1c in the range 5.7-6.4% are at increased risk for development of diabetes, and intervention by lifestyle modification may be beneficial. HgbA1c greater or equal to 6.5% is considered diagnostic of diabetes. Performed By: #### 5 5454-3 ####[facility] LABCLIA [id number] [facility] [id number] [place] [address] [place] NT PRO BNPon 11-09-2024 Natriuretic peptide.B prohormone N-Terminal [Mass/Vol] 76 pg/mL NINF - 125 pg/mL [facility] Comment on above: NT-proBNP results of [...] prohormone N-Terminal [Mass/Vol] 76 pg/mL Normal <125 [facility] Comment on above: Order Comment: Speci sami Type: BLOOD SPECIMENOrdering Facility: [facility] Address: [address] [place] [address] Result Comment: NT-p roBNP results of less than 300 pg/mL likely rules out acute congestive heart failure with 99% predictive value. NOTE: These cutoff points are suggested for ACUTE CHF DIAGNOSIS only Less than 50 years\X09\ Greater than 450 pg/mL 50 - 75 years\X09\\X09\ Greater than 900 pg/mL Greater than 75 years\X09\ Greater than 1800 pg/mL Performed By: #### 3 3762-6 ####[facility]ORYCLIA [id number] [place] [address] [place] Natriuretic peptide.B prohor darinel N-Terminal [Mass/Vol]on 11-09-2024 Interpretation and review of laboratory results Normal [facility] STAPHYLOCOCCUS AUREUS AND MR SA SCREEN, PCR, NASALon 11-09-2024 S. aureus and MRSA panel JASON+probe (Nose) Not detected Normal Not Detected [facility] Comment on above: Order Comment: Speci men Type: SWABOrdering Facility: [facility] Address: [address] [place], [place] [address] Performed By: #### S APCR ####[facility]ORATORYCLIA [id number] [place] [address] [place] Basic metabolic 2000 panelon 11-04-2024 Anion gap [Moles/Vol] 10 mmol/L Normal 8-15 [facility] Comment on above: Order Comment: Speci men Type: BLOOD SPECIMENOrdering Facility: [facility] Address: [address] [place] [address] Performed By: #### 2 4321-2 ####[facility] LABCLIA [id number] [place] [address] [place] Calcium [Mass/Vol] 9.4 mg/dL Normal 8.5-10.2 [facility] Comment on above: Order Comment: Speci men Type: BLOOD SPECIMENOrdering Facility: [facility] Address: [address] [place], [place] [address] Performed By: #### 2 4321-2 ####[facility] LABCLIA [id number] [place] [address] [place] Chloride [Moles/Vol] 104 mmol/L Normal 98-107 [facility] Comment on above: Order Comment: Speci men Type: BLOOD SPECIMENOrdering Facility: [facility] Address: [address] [place], [place] [address] Performed By: #### 2 4321-2 ####[facility] LABCLIA [id number] [place] [address] [place] CO2 [Moles/Vol] 25 mmol/L Normal 22-30 [facility] Comment on above: Order Comment: Speci men Type: BLOOD SPECIMENOrdering Facility: [facility] Address: [address] [place], [place] [address] Performed By: #### 2 4321-2 ####[facility] LABCLIA [id number] [address] [place] Creatinine [Mass/Vol] 0.58 mg/dL Normal 0.58-0.96 [facility] Comment on above: Order Comment: Maryellen gallardo Type: BLOOD SPECIMENOrdering Facility: [facility] Address: [address] [place] [address] Performed By: #### 2 4321-2 ####[facility] LABIA [id number] [address] Creatinine and Glomerular filtration rate.predicted panel (S/P/Bld) 104 mL/min/1.73m??? Normal >=60 [facility] Comment on above: Order Comment: Maryellen gallardo Type: BLOOD SPECIMENOrdering Facility: [facility] Address: [address] [place] [address] Result Comment: Jacinta mated Glomerular Filtration Rate [...] actual GFR. Performed By: #### 2 4321-2 ####[facility] LABCLIA [id number] [place] [address] [place] Glucose [Mass/Vol] 210 mg/dL High 74-99 [facility] Comment on above: Order Comment: Maryellen gallardo Type: BLOOD SPECIMENOrdering Facility: [facility] Address: [address] [place] [address] Result Comment: The [place] Diabetes Association (ADA) provides guidance for cutoff [...] Standards of Medical Care in Diabetes 2016, [place] Diabetes Association. Diabetes Care. 2016.39(Suppl 1). Performed By: #### 2 4321-2 ####[facility] LABCLIA [id number] [place] [address] [place] Potassium [Moles/Vol] 4.1 mmol/L Normal 3.7-5.1 [facility] Comment on above: Order Comment: Speci men Type: BLOOD SPECIMENOrdering Facility: [facility] Address: [address] [place] [address] Performed By: #### 2 4321-2 ####[facility] LABCLIA [id number] [place] [address] [place] Sodium [Moles/Vol] 139 mmol/L Normal 136-144 [facility] Comment on above: Order Comment: Speci men Type: BLOOD SPECIMENOrdering Facility: [facility] Address: [address] [place] [address] Performed By: #### 2 4321-2 ####[facility] LABIA [id number] [place] [address] [place] Urea nitrogen [Mass/Vol] 9 mg/dL Normal 7-21 [facility] Comment on above: Order Comment: Speci men Type: BLOOD SPECIMENOrdering Facility: [facility] Address: [address] [place] [address] Performed By: #### 2 4321-2 ####[facility] LABIA [id number] [place] [address] [place] CBC panel Auto (Bld)on 11-04 Erythrocyte distribution width (RBC) [Ratio] 12.7 % Normal 11.5-15.0 [facility] Comment on above: Order Comment: Speci men Type: BLOOD SPECIMENOrdering Facility: [facility] Address: [address] [place] [address] Performed By: #### 5 8410-2 ####[facility] LABCLIA [id number] [place] [address] [place] Hematocrit (Bld) [Volume fraction] 48.0 % High 36.0-46.0 [facility] Comment on above: Order Comment: Speci men Type: BLOOD SPECIMENOrdering Facility: [facility] Address: [address] [place] [address] Performed By: #### 5 8410-2 ####[facility] LABIA [id number] [place] [address] [place] Hemoglobin (Bld) [Mass/Vol] 15.6 g/dL High 11.5-15.5 [facility] Comment on above: Order Comment: Speci men Type: BLOOD SPECIMENOrdering Facility: [facility] Address: [address] [place] [address] Performed By: #### 5 8410-2 ####[facility] LABIA [id number] [place] [address] [place] MCH (RBC) [Entitic mass] 30.6 pg Normal 26.0-34.0 [facility] Comment on above: Order Comment: Speci men Type: BLOOD SPECIMENOrdering Facility: [facility] Address: [address] [place] [address] Performed By: #### 5 8410-2 ####[facility] LABIA [id number] [place] [address] [place] MCHC (RBC) [Mass/Vol] 32.5 g/dL Normal 30.5-36.0 [facility] Comment on above: Order Comment: Speci men Type: BLOOD SPECIMENOrdering Facility: [facility] Address: [address] [place] [address] Performed By: #### 5 8410-2 ####[facility] LABCLIA [id number] [place] [address] [place] MCV (RBC) [Entitic vol] 94.1 fL Normal 80.0-100.0 [facility] Comment on above: Order Comment: Speci men Type: BLOOD SPECIMENOrdering Facility: [facility] Address: [address] [place] [address] Performed By: #### 5 8410-2 ####[facility] LABIA [id number] [place] [address] [place] Nucleated RBC (Bld) [#/Vol] 10*3/uL Normal <0.01 [facility] Comment on above: Order Comment: Speci men Type: BLOOD SPECIMENOrdering Facility: [facility] Address: [address] [place] [address] Performed By: #### 5 8410-2 ####[facility] LABIA [id number] [place] [address] [place] Platelet mean volume (Bld) [Entitic vol] 10.2 fL Normal 9.0-12.7 [facility] Comment on above: Order Comment: Speci men Type: BLOOD SPECIMENOrdering Facility: [facility] Address: [address] [place] [address] Performed By: #### 5 8410-2 ####[facility] LABIA [id number] [place] [address] [place] Platelets (Bld) [#/Vol] 212 10*3/uL Normal 150-400 [facility] Comment on above: Order Comment: Speci men Type: BLOOD SPECIMENOrdering Facility: [facility] Address: [address] [place] [address] Performed By: #### 5 8410-2 ####[facility] LABCLIA [id number] [place] [address] [place] RBC (Bld) [#/Vol] 5.10 10*6/uL Normal 3.90-5.20 [facility] Comment on above: Order Comment: Speci men Type: BLOOD SPECIMENOrdering Facility: [facility] Address: [address] [place] [address] Performed By: #### 5 8410-2 ####[facility] LABIA [id number] [place] [address] [place] WBC (Bld) [#/Vol] 8.17 10*3/uL Normal 3.70-11.00 [facility] Comment on above: Order Comment: Speci men Type: BLOOD SPECIMENOrdering Facility: [facility] Address: [address] [place] [address] Performed By: #### 5 8410-2 ####[facility] LABIA [id number] [place] [address] [place] CNCOon 11-04-2024 CNCO Letter Text [facility] CNPNon 11-04-2024 EUGENIEN Telephone (PRANMY) CHIDI MUSA ([id number]) 1965 F Date Time Provider Department 11/04/24 [...] patient regarding missed appointment. Yes, patient given [facility] contact number [phone] to reschedule. The patient stated the reason [...] No show Prescriptions as of 11/12/2024 - Gougd-5-XYI-EPA-Fish Oil (FISH OIL) 1,000 (120-180) mg cap [...] Status:Closed by PATIENCE SCHWARZ on 11/12/[address] [facility] PT panel Coag (PPP)on 2024 INR Coag (PPP) [Relative time] 1.0 {INR} Normal 0.9-1.3 [facility] Comment on above: Order Comment: Speci men Type: BLOOD SPECIMENOrdering Facility: [facility] Address: [address] [place] [address] Result Comment: Kayla min K Antagonist (VKA) Therapeutic Range: INR 2 to 3 (Target INR of 2.5) Note: For patients treated with VKA drugs, such as warfarin, the [place] [employer] 2012 Guideline recommends [...] Chest 2012, 141:7S-47S Michaela RA, et al. [facility] 2017, 70: 252-289 Performed By: #### 3 4528-0 ####[facility] LABCLIA [id number] [facility] [id number] [place] PT Coag (PPP) [Time] 10.6 s Normal 9.7-13.0 [facility] Comment on above: Order Comment: Speci men Type: BLOOD SPECIMENOrdering Facility: [facility] Address: [address] [place] [address] Performed By: #### 3 4528-0 ####[facility] LABCLIA [id number] [place] [address] [place] TYPE AND SCREEN,30 DAYon ABO A Normal [facility] Comment on above: Order Comment: Speci men Type: BLOOD SPECIMENOrdering Facility: [facility] Address: [address] [place] [address] Performed By: #### T SCR30 ####[facility] BLOOD BANKIA [id number] [place] [address] [place] Rh Nom (Bld) Positive Normal [facility] Comment on above: Order Comment: Speci men Type: BLOOD SPECIMENOrdering Facility: [facility] Address: [address] [place] [address] Performed By: #### T SCR30 ####[facility] BLOOD BANKCLIA [id number] [address] [place] Lipid Profileon 11-02-2024 Cholesterol [Mass/Vol] 184 mg/dL Normal 200 [facility] Comment on above: Result Comment: <200 mg/dL Desirable 200-240 mg/dL Borderline >240 mg/dL High Risk Performed By: #### L 500.3400, L500.4100 ####[facility] [address] [facility] [place], [address] Cholesterol in HDL [Mass/Vol] 44 mg/dL Normal [facility] Comment on above: Result Comment: The drugs N-Acetylcysteine and Metamizole may falsely depress this assay. Reference Range HDL <40 mg/dL Low HDL Cholesterol HDL >or= 60 mg/dL High HDL Cholesterol Performed By: #### L 500.3400, L500.4100 ####[facility] [address] [place], [address] Cholesterol in LDL [Mass/Vol] 92 mg/dL Normal 0-130 [facility] Comment on above: Performed By: #### L 500.3400, L500.4100 ####[facility] [address] [place], [address] Cholesterol in VLDL [Mass/Vol] 48 mg/dL High 5-40 [facility] Comment on above: Performed By: #### L 500.3400, L500.4100 ####[facility] [address] [place], [address] Triglyceride [Mass/Vol] 242 mg/dL High [facility] Comment on above: Result Comment: The drugs N-Acetylcysteine and Metamizole may falsely depress this assay. Serum Triglycerides Reference Interval Normal <150 mg/dL Borderline high 150 - 199 mg/dL High 200 - 499 mg/dL Very High > or = 500 mg/dL Performed By: #### L 500.3400, L500.4100 ####[facility] [address] [place], [address] Liver Profileon 11-02-2024 Albumin [Mass/Vol] 3.8 g/dL Normal 3.2-5.0 [facility] Comment on above: Performed By: #### L 500.3400, L500.4100 #### [facility] [address] [place], [address] ALK P 72 U/L Normal 45-117 [facility] Comment on above: Performed By: #### L 500.3400, L500.4100 #### [facility] [address] [place], [address] ALT [Catalytic activity/Vol] 20 U/L Normal 13-56 [facility] Comment on above: Performed By: #### L 500.3400, L500.4100 #### [facility] [address] [place], [address] AST [Catalytic activity/Vol] 9 U/L Low 15-37 [facility] Comment on above: Performed By: #### L 500.3400, L500.4100 #### [facility] [address] [place], [address] Bilirubin [Mass/Vol] 0.60 mg/dL Normal 0.20-1.00 [facility] Comment on above: Result Comment: For patients on eltrombopag therapy, use of Dimension [place] TBIL is not recommended. Performed By: #### L 500.3400, L500.4100 #### [facility] [address] [place], [address] Bilirubin.direct [Mass/Vol] 0.15 mg/dL Normal 0.00-0.30 [facility] Comment on above: Performed By: #### L 500.3400, L500.4100 #### [facility] [address] [place], [address] Globulin (S) [Mass/Vol] 3.9 g/dL Normal 2.2-4.2 [facility] Comment on above: Performed By: #### L 500.3400, L500.4100 #### [facility] [address] [place], [address] T PROT 7.7 g/dL Normal 6.4-8.2 [facility] Comment on above: Performed By: #### L 500.3400, L500.4100 #### [facility] [address] [place], [address] CNCOon 10-30-2024 CNCO Letter Text [facility] James 10-30-2024 [facility] CHIDI MUSA ([id number]) 1965 F Date Time Provider Department 10/30/24 MAYANK SHEEHAN During your visit today, we recorded the following information about you: Kaleb Schultz LPN 10/30/2024 8:39 AM Signed Scheduled C4-6 PSF and C5 laminectomy on 11/30/24 at [facility]. POV with Dr. Sheehan is scheduled on 12/15/24, [facility]. Instructions, surgery guide, and skin prep were [...] Encounter Status:Closed by KALEB SCHULTZ on 10/30/24 [facility] CHID[facility] MUSA ([id number]) 1965 F Date Time Provider Department 10/28[facility] During your visit today, we recorded the following information about you: Isaiah Quintana 10/28/2024 9:05 AM Signed Spoke to patient to picker/puller her disc for the lumbar spine, she [...] myelopathy [M47.12] 09/28/2024 Encounter Status:Closed by ISAIAH QUINTANA on 10/28/24 [facility] Drea 10-27-2024 [facility] Office [facility] CHIDI MUSA ([id number]) 1965 F Date Time Provider Department 10/27/24 2:00 PM MAYANK SHEEHAN During your visit today, we recorded the following information about you: Pulse Weight Height 83/minute 71.8 kg 1.575 m FoyEstela rivera MA 10/27/2024 4:25 PM Signed 59 year old female pt here for cervical pain and results. Mayank Sheehan MD 10/27/2024 4:25 PM Signed Mayank Sheehan MD [facility] Orthopaedic Surgery - Orthopaedic Spine Surgeon [address] [facility], [address], [facility] [address], [place] [address] Phone: [phone] ([phone]) FAX: [phone] Spine Surgery Outpatient Note Service Date: 10/27/2024 [...] mg tab (more content not included)... Normal [facility] CT CERVICAL SPINE WO IVCONon 10-20-2024 CT CERVICAL SPINE WO IVCON * * *Final Report* * * DATE OF EXAM: Oct 20 2024 9:05AM [facility] 0505 - CT CERVICAL SPINE WO IVCON [...] Counting reference: Craniocervical junction. Anatomic Variants: None. Resin Shaver (topogram) images: Median sternotomy wires are present. [...] vertebrae with counting from the craniocervical junction. [employer] Retailer: [facility] Transcribe Date/Time: Oct 20 2024 9:19A Dictated by : RENETTA URIBE MD This examination was interpreted and the report reviewed and electronically signed by: RENETTA URIBE MD on Oct 20 2024 9:24AM EST [id number] Normal [facility] CT Cervical spine WO contras ton 10-20-2024 [...] vertebrae with counting from the craniocervical junction. [employer] Retailer: [facility] Transcribe Date/Time: Oct 20 2024 9:19A Dictated by : RENETTA URIBE MD This examination was interpreted and the report reviewed and electronically signed by: RENETTA URIBE MD on Oct 20 2024 9:24AM EST DIVISION OF RADIOLOGY * * *Final Report* * * DATE OF EXAM: Oct 20 2024 9:05AM [facility] 0505 - CT CERVICAL SPINE WO IVCON [...] Counting reference: Craniocervical junction. Anatomic Variants: None. Resin Shaver (topogram) images: Median sternotomy wires are present. [...] the lung apices. DIVISION OF RADIOLOGY Provider, [facility] - 10/20/2024 * * *Final Report* * * DATE OF EXAM: Oct 20 2024 9:05AM [facility] 0505 - CT CERVICAL SPINE WO IVCON [...] Counting reference: Craniocervical junction. Anatomic Variants: None. Resin Shaver (topogram) images: Median sternotomy wires are present. [...] vertebrae with counting from the craniocervical junction. [employer] Retailer: [facility] Transcribe Date/Time: Oct 20 2024 9:19A Dictated by : RENETTA URIBE MD This examination was interpreted and the report reviewed and electronically signed by: RENETTA URIBE MD on Oct 20 2024 9:24AM EST [facility] Radiology Study observation (narrative) [facility] CT Cervical spine WO contras tOrdered By: Ccf Provider on 10-20-2024 [facility] 6 Minute Walk Teston 025 6 Minute Walk Test y [facility] Pulmonary Services/Neurology [address] [place] [address] MR#: [id number] Acct: [id number] Name: CHIDI MUSA BASIL Rep #: [id number] : 1965 59 From: Varinder Rendon DO Referring Dr: Varinder Rendon DO Status: REG CLI Location: PSN Date: Sex: F C PSN 6 Minute Walk Test 6 Minute Walk Test 6 Minute Walk Test: 6 Minute Walk Test PSN:6-Minute Walk Test Start: 10/15/24 11:38 Freq: Status: Active Protocol: RESP.6MINW Document 10/15/24 11:38 EW (Rec: 10/15/24 11:40 EW [id number]) 6 Minute Walk Test Date Performed 10/15/24 [...] Date Dictated: 10/19/24 102 Date Transcribed: 10/19/241028 [employer] Retailer: Dr. Varinder Rendon DO Signed Normal [facility] Low Dose CT Lung Screeningon 10-17-[address] Lung Screening [facility] Imaging Services [address] [place] [address] Lung Screening MR#: [id number] Acct: [id number] Name: CHIID MUSA Rep #: [id number] : 1965 F 59 From: Mode Nicolas MD PCP: Josephine Walter NP-C Status: [facility] Study: Low Dose CT Lung Screening Date of Exam: 10/17 Exam# [id number] Ordering Dr: Varinder Rendon DO [id number] EXAM: CT CHEST, LUNG CANCER SCREENING WITHOUT [...] CC: NATACHA Walter; Dr. Varinder Rendon DO [employer] Retailer: Signed Normal [facility] Ankle Brachial Indexon 10-14 Ankle Brachial Index [facility] Cardiovascular Services [address] [place] [address] Ankle Brachial Index 10/14/24 1251 MR#: [id number] Acct: [id number] Name: CHIDI MUSA Rep #: [id number] : 1965 59 From: Alejandro Quintana MD [...] Date Dictated: 10/14/24 1251 Date Transcribed: 10/14/241547 [employer] Retailer: Signed Normal [facility] Art Duplex Unilat Lower E xton 10-14-2024 Art Duplex Unilat Lower Ext [facility] Cardiovascular Services [address] [place] [address] [place] Art Duplex Unilat Lower Ext 10/14/24 1305 MR#: [id number] Acct: [id number] Name: CHIDI MUSA Rep #: [id number] : 1965 59 From: Alejandro Quintana MD [...] Dictated: 10/14/24 1305 Date Transcribed: 10/14/24 1549 [employer] Retailer: Signed Normal [facility] Immunoglobulin Fransico 5 IMMUNOGLOB E QN 8 IU/mL Normal 6-495 [facility] Comment on above: Result Comment: Perf ormed at: - [facility] [id number] Virtual Reality Specialist: Chris Chaparro MD, Phone: [phone] Performed By: #### L 5504.2194, W0200.1600, L100.0100 ####[facility] [address] [place], [address] Allergen Resp. Area 5on 010 5-2025 ALTERNARIA TEN <0.10 Normal Class 0 [facility] Comment on above: Order Comment: Reaso n for Exam: asthma Performed By: #### L 5500.0700, L3200.1600, L100.0100 ####[facility] [address] [place], [address] ISAIAH, WHITE <0.10 Normal Class 0 [facility] Comment on above: Order Comment: Reaso n for Exam: asthma Performed By: #### L 5500.0700, L3200.1600, L100.0100 ####[facility] [address] [place], [address] ASPERGILLUS FUM <0.10 Normal Class 0 [facility] Comment on above: Order Comment: Reaso n for Exam: asthma Performed By: #### L 5500.0700, L3200.1600, L100.0100 ####[facility] [address] [place], [address] BERMUDA GRASS <0.10 Normal Class 0 [facility] Comment on above: Order Comment: Reaso n for Exam: asthma Performed By: #### L 5500.0700, L3200.1600, L100.0100 ####[facility] [address] [place], [address] BIRCH <0.10 Normal Class 0 [facility] Comment on above: Order Comment: Reaso n for Exam: asthma Performed By: #### L 5500.0700, L3200.1600, L100.0100 ####[facility] [address] [place], [address] BLACK WALNUT <0.10 Normal Class 0 [facility] Comment on above: Order Comment: Reaso n for Exam: asthma Performed By: #### L 5500.0700, L3200.1600, L100.0100 ####[facility] [address] [place], [place], [address] CAT HAIR/DANDER <0.10 Normal Class 0 [facility] Comment on above: Order Comment: Reaso n for Exam: asthma Performed By: #### L 5500.0700, L3200.1600, L100.0100 ####[facility] [address] [place], [address] CLADOSPOR HERB <0.10 Normal Class 0 [facility] Comment on above: Order Comment: Reaso n for Exam: asthma Performed By: #### L 5500.0700, L3200.1600, L100.0100 ####[facility] [address] [place], [address] COCKROACH,AMER <0.10 Normal Class 0 [facility] Comment on above: Order Comment: Reaso n for Exam: asthma Performed By: #### L 5500.0700, L3200.1600, L100.0100 ####[facility] [address] [place], [address] COMMENT Comment Normal . [facility] Comment on above: Order Comment: Reaso [...] Performed By: #### L 5500.0700, L3200.1600, L100.0100 ####[facility] [address] [place], [address] COTTONWOOD <0.10 Normal Class 0 [facility] Comment on above: Order Comment: Reaso n for Exam: asthma Performed By: #### L 5500.0700, L3200.1600, L100.0100 ####[facility] [address] [place], [address] D FARINAE MITE <0.10 Normal Class 0 [facility] Comment on above: Order Comment: Reaso n for Exam: asthma Performed By: #### L 5500.0700, L3200.1600, L100.0100 ####[facility] [address] [place], [address] D PTERONYSSINUS <0.10 Normal Class 0 [facility] Comment on above: Order Comment: Reaso n for Exam: asthma Performed By: #### L 5500.0700, L3200.1600, L100.0100 ####[facility] [address] [place], [address] DOG EPITHELIA <0.10 Normal Class 0 [facility] Comment on above: Order Comment: Reaso n for Exam: asthma Performed By: #### L 5500.0700, L3200.1600, L100.0100 ####[facility] [address] [place], [address] ELM,AMER WHITE <0.10 Normal Class 0 [facility] Comment on above: Order Comment: Reaso n for Exam: asthma Performed By: #### L 5500.0700, L3200.1600, L100.0100 ####[facility] [address] [place], [address] IMMUNOGLOB E 9 IU/mL Normal 6-495 [facility] Comment on above: Order Comment: Reaso n for Exam: asthma Performed By: #### L 5500.0700, L3200.1600, L100.0100 ####[facility] [address] [place], [address] MAPLE/BOX ELDER <0.10 Normal Class 0 [facility] Comment on above: Order Comment: Reaso n for Exam: asthma Performed By: #### L 5500.0700, L3200.1600, L100.0100 ####[facility] [address] [place], [address] MOUNTAIN CEDAR <0.10 Normal Class 0 [facility] Comment on above: Order Comment: Reaso n for Exam: asthma Performed By: #### L 5500.0700, L3200.1600, L100.0100 ####[facility] [address] [place], [address] Mouse Urine <0.10 Normal Class 0 [facility] Comment on above: Order Comment: Reaso n for Exam: asthma Result Comment: Perf ormed at: - [facility] [id number] Virtual Reality Specialist: Chris Chaparro MD, Phone: [phone] Performed By: #### L 5500.0700, L3200.1600, L100.0100 ####[facility] [address] [place], [address] MULBERRY,WHITE <0.10 Normal Class 0 [facility] Comment on above: Order Comment: Reaso n for Exam: asthma Performed By: #### L 5500.0700, L3200.1600, L100.0100 ####[facility] [address] [place], [address] OAK, WHITE <0.10 Normal Class 0 [facility] Comment on above: Order Comment: Reaso n for Exam: asthma Performed By: #### L 5500.0700, L3200.1600, L100.0100 ####[facility] [address] [place], [address] PECAN <0.10 Normal Class 0 [facility] Comment on above: Order Comment: Reaso n for Exam: asthma Performed By: #### L 5500.0700, L3200.1600, L100.0100 ####[facility] [address] [place], [address] PEN NOTATUM <0.10 Normal Class 0 [facility] Comment on above: Order Comment: Reaso n for Exam: asthma Performed By: #### L 5500.0700, L3200.1600, L100.0100 ####[facility] [address] [place], [address] PIGWEED, ROUGH <0.10 Normal Class 0 [facility] Comment on above: Order Comment: Reaso n for Exam: asthma Performed By: #### L 5500.0700, L3200.1600, L100.0100 ####[facility] [address] [place], [address] RAGWEED SH/COM <0.10 Normal Class 0 [facility] Comment on above: Order Comment: Reaso n for Exam: asthma Performed By: #### L 5500.0700, L3200.1600, L100.0100 ####[facility] [address] [place], [address] ESTONIAN THISTLE <0.10 Normal Class 0 [facility] Comment on above: Order Comment: Reaso n for Exam: asthma Performed By: #### L 5500.0700, L3200.1600, L100.0100 ####[facility] [address] [place], [address] SHEEP SORREL <0.10 Normal Class 0 [facility] Comment on above: Order Comment: Reaso n for Exam: asthma Performed By: #### L 5500.0700, L3200.1600, L100.0100 ####[facility] [address] [place], [address] SYCAMORE, AMER <0.10 Normal Class 0 [facility] Comment on above: Order Comment: Reaso n for Exam: asthma Performed By: #### L 5500.0700, L3200.1600, L100.0100 ####[facility] [address] [place], [address] KAYLIE GRASS <0.10 Normal Class 0 [facility] Comment on above: Order Comment: Mariselao n for Exam: asthma Performed By: #### L 5500.0700, L3200.1600, L100.0100 ####[facility] [address] [place], [address] CBC W/Diff, Automatedon ATYPICAL LYMPH 1+ Normal [facility] Comment on above: Performed By: #### L 5500.0700, L3200.1600, L100.0100 ####[facility] [address] [place], [address] PLT EST ADEQUATE Normal ADEQ [facility] Comment on above: Performed By: #### L 5500.0700, L3200.1600, L100.0100 ####[facility] [address] [place], [address] RED CELL MORPH NORM C+C Normal NORM C C [facility] Comment on above: Performed By: #### L 5500.0700, L3200.1600, L100.0100 ####[facility] [address] [place], [address] Pulmonary Visit Reporton Pulmonary Visit Report [facility] [place] [address] [place] [address] OFFICE VISIT Date of Service: 10/01/24 MR#: [id number] Acct: [id number] Name: CHIDI MUSA Rep #: [id number] : 1965 Provider: Dr. Varinder Rendon DO Age/Sex: 59/F Location: [facility] Status: Signed Assessment and Plan Assessment and Plan (1) Asthma: Status: Suspected Plan: The patient initially presented today for the evaluation of COPD, having previously been under the care of a pulmonary provider in [place] and later by a pulmonary provider in [place] where she was residing until recently. Ironically, [...] pulmonary provider approximately 8 years ago in [facility]. Following this, the patient resided in [place], prior to relocating to the area. The patient reported to me that while living in [place], that she was being maintained on inhalers for COPD. However, the patient had pulmonary function studies completed in June 2023 which were grossly within normal limits, without any evidence of COPD. For reasons that are not entirely clear, she has been maintained on Advair, Spiriva and as needed albuterol. The patient has an approximate 62-giga-mlko smoking history, having quit completely in 2023. 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 She has a known history of anxiety and depression. She does currently keep a poodle as a pet in her home environment. The (more content not included)... Normal [facility] CNOVon 09-28-2024 CNOV Office Visit (IVAN ) CHIDI MUSA ([id number]) 1965 F Date Time Provider Department 09/28/24 7:45 AM NEWTON SHINE During your visit today, we recorded the following information about you: Pulse Respiration Blood pressure Weight 70/minute 16/minute 111/65 70.8 kg Height 1.575 m Newton Shine MD 09/30/2024 10:26 AM Signed [facility] Department of Pain Management New Patient Consultation PATIENT: Chidi Musa : 1965 DATE OF SERVICE: 09/28/2024 REFERRING PRACTITIONER: Mayank Sheehan MD PRIMARY CARE PROVIDER: Josephine Walter CNP, PASSENGER AGENT CHIEF COMPLAINT: Patient presents with: Neck Pain: Neck, arms HISTORY OF PRESENT ILLNESS: hCidi Musa is a 59 year old year [...] as needed (more content not included)... Normal [facility] MR Cervical spine WO michelle ton 09-21-2024 Radiology Study observation (narrative) [facility] IMPRESSION: Degenerative changes are most pronounced [...] vertebrae with counting from the craniocervical junction. [employer] Retailer: PSCB Transcribe Date/Time: Sep 21 2024 11:49A Dictated by : RENETTA URIBE MD This examination was interpreted and the report reviewed and electronically signed by: RENETTA URIBE MD on Sep 21 2024 11:54AM [facility] DIVISION OF RADIOLOGY * * *Final Report* * * DATE OF EXAM: Sep 21 2024 11:25AM [facility] 0297 - MRI CERVICAL SPINE WO IVCON [...] or foraminal stenosis. DIVISION OF RADIOLOGY Provider, [facility] - 09/21/2024 * * *Final Report* * * DATE OF EXAM: Sep 21 2024 11:25AM [facility] 0297 - MRI CERVICAL SPINE WO IVCON [...] vertebrae with counting from the craniocervical junction. [employer] Retailer: PILLO Transcribe Date/Time: Sep 21 2024 11:49A Dictated by : RENETTA URIBE MD This examination was interpreted and the report reviewed and electronically signed by: RENETTA URIBE MD on Sep 21 2024 11:54AM EST [facility] MR Cervical spine WO contras tOrdered By: Ccf Provider on 09-21-2024 [facility] MRI CERVICAL SPINE WO IVCONo n 09-21-2024 MRI CERVICAL SPINE WO IVCON * * *Final Report* * * DATE OF EXAM: Sep 21 2024 11:25AM [facility] 0297 - MRI CERVICAL SPINE WO IVCON [...] vertebrae with counting from the craniocervical junction. [employer] Retailer: PSCB Transcribe Date/Time: Sep 21 2024 11:49A Dictated by : RENETTA URIBE MD This examination was interpreted and the report reviewed and electronically signed by: RENETTA URIBE MD on Sep 21 2024 11:54AM EST [id number] Normal [facility] Surgery Visit Reporton 09-21 Surgery Visit Report [facility] [address] [place] [address]. [address] [place] [address] OFFICE VISIT Date of Service: 09/21/24 MR#: [id number] Acct: [id number] Name: EVACHIDI BASIL Rep #: [id number] : 1965 Provider: Dr. 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 She presents today for evaluation of this [...] heat intole (more content not included)... Normal [facility] MR/Ovidio 09-16-2024 MR/BMS.BRYANT [facility] [address] [place] [address] OFFICE VISIT Date of Service: 09/16/24 MR#: [id number] Acct: [id number] Name: CHIDI MUSA Rep #: [id number] : 1965 Provider: HEIDI Allen Age/Sex: 59/F Location: [facility] Status: Signed Intake Vital Signs 05/20/24 09:52 [...] PO QDAY 09/16/24 09/16/24 History release omega 9-hdq-lxx-fish oil 900 cap PO 09/16/24 09/16/24 History mg-1,400 mg capsule,delayed release (Fish Oil) Is last menstrual period known: No Post menopausal: Yes Patient : No Have you fallen in the past year?: Yes PFSH Medical History Aortoiliac occlusive disease Atherosclerosis of [place] arteries of extremities with rest pain, left [...] been placed when patient was living in [place]. The procedure was without complication, she reports she tolerated it well. Her initial stent was placed in [place] due to atypical leg pain/paresthesias, she did [...] be ev (more content not included)... Normal [facility] 09-11-2024 [facility] Telephone ([facility]) CHIDI MUSA ([id number]) 1965 F Date Time Provider Department 09/11/24 MAYANK SHEEHAN [facility] During your visit today, we recorded the following information about you: Rachael Pace 09/11/2024 8:49 AM Signed Spoke to the patient to see if she could picker/puller her records from [facility] as I have [...] Encounter Status:Closed by RACHAEL PACE on 09[facility]11/[facility] CHIDI MUSA ([id number]) 1965 F Date Time Provider Department 09/08/24 9:00 AM [facility] SHE[facility] During your visit today, we recorded the [...] 09/08/2024 9:16 AM Signed Mayank Sheehan MD [facility] Orthopaedic Surgery - Orthopaedic Spine Surgeon [address], [address], [place] [address] [address], [address], [place] [address] Phone: [phone] ([phone] FAX: [phone] Spine Surgery Outpatient Note Service Date: 09/08/2024 Referring Provider: Romeo Stafford [address] [place] [address] Dr [facility] [address] Chief Complaint: Lumbar back pain with radiation [...] was previously seeing a spine surgeon in [place] who recommended multilevel decompression and fusion for [...] as ins (more content not included)... Normal [facility] XR CERVICAL 4V AP/LAT/FLX/EX Ton 09-08-2024 XR [...] may relate to positioning or muscle spasm. [employer] Retailer: PSCB Transcribe Date/Time: Sep 10 2024 1:59P Dictated by : ANGELA MORALES MD This examination was interpreted and the report reviewed and electronically signed by: ANGELA MORALES MD on Sep 10 2024 2:01PM EST [id number] [facility] XR LUMBAR 4V AP/LAT/ FLEX/EX Ton 09-04-2024 [...] acute soft tissue abnormality. IMPRESSION: See result. [employer] Retailer: PSCB Transcribe Date/Time: Sep 08 2024 1:33A Dictated by : LETITIA PLATT MD This examination was interpreted and the report reviewed and electronically signed by: LETITIA PLATT MD on Sep 08 2024 1:41AM EST [id number] Normal [facility]03[facility]20[facility] CHIDI MUSA ([id number]) 1965 F Date Time Provider Department 09/03/24 MAYANK SHEEHAN [facility] During your visit today, we recorded the [...] said she will have them done at [facility] prior to her appointment. Allergies As of [...] Encounter Status:Closed by RACHAEL PACE on 09/03/24 [facility] Basic Metabolic Profile (BMP )on 09-02-2024 BUN/CRE 22.8 RATIO High 10-20 [facility] Comment on above: Performed By: #### L 100.0100, L500.2500 ####[facility] [address] [place], [address] CA,Total 9.4 mg/dL Normal 8.5-10.1 [facility] Comment on above: Performed By: #### L 100.0100, L500.2500 ####[facility] [address] [place], [address] Chloride [Moles/Vol] 108 mmol/L High 98-107 [facility] Comment on above: Performed By: #### L 100.0100, L500.2500 ####[facility] [address] [place], [address] CO2 [Moles/Vol] 26.0 mmol/L Normal 21.0-32.0 [facility] Comment on above: Performed By: #### L 100.0100, L500.2500 ####[facility] [address] [place], [address] Creatinine [Mass/Vol] 0.75 mg/dL Normal 0.55-1.02 [facility] Comment on above: Result Comment: The validity of the calculated GFR GFRAA in patients over 70 years has not been determined. Clinical correlation is essential. Performed By: #### L 100.0100, L500.2500 ####[facility] [address] [place], [address] ECRCL 74.69 ml/min Normal [facility] Comment on above: Performed By: #### L 100.0100, L500.2500 ####[facility] [address] [place], [address] EST GFR - AA 102 mL/min Normal >60 [facility] Comment on above: Result Comment: Afri can Tongan GFR Calc Performed By: #### L 100.0100, L500.2500 ####[facility] [address] [place], [address] GAP 5 Normal 5-15 [facility] Comment on above: Performed By: #### L 100.0100, L500.2500 ####[facility] [address] [place], [address] GFR/1.73 sq M.predicted among non-blacks MDRD (S/P/Bld) [Vol rate/Area] 84 mL/min/{1.73_m2} Normal >60 [facility] Comment on above: Result Comment: Non- GFR Calc Performed By: #### L 100.0100, L500.2500 ####[facility] [address] [place], [address] Glucose [Mass/Vol] 176 mg/dL High 74-106 [facility] Comment on above: Result Comment: Fast ing Glucose result greater than or equal to 126 mg/dL suggests DIABETES MELLITUS per A.D.A. criteria. Performed By: #### L 100.0100, L500.2500 ####[facility] [address] [place], [address] Potassium [Moles/Vol] 3.9 mmol/L Normal 3.5-5.1 [facility] Comment on above: Performed By: #### L 100.0100, L500.2500 ####[facility] [address] [place], [address] Sodium [Moles/Vol] 139 mmol/L Normal 136-145 [facility] Comment on above: Performed By: #### L 100.0100, L500.2500 ####[facility] [address] [place], [address] Urea nitrogen [Mass/Vol] 17 mg/dL Normal 7-18 [facility] Comment on above: Performed By: #### L 100.0100, L500.2500 ####[facility] [address] [place], [address] CBC W/Diff, Automatedon 12-0 -2023 Absolute Lymph 2.58 X10 3/uL Normal 0.83-4.51 [facility] Comment on above: Performed By: #### L 100.0100, L500.2500 ####[facility] [address] [place], [address] Absolute Neut 5.6 X10 3/uL Normal 2.0-7.7 [facility] Comment on above: Performed By: #### L 100.0100, L500.2500 ####[facility] [address] [place], [address] Basophils/100 WBC (Bld) 1.0 % Normal 0-1 [facility] Comment on above: Performed By: #### L 100.0100, L500.2500 ####[facility] [address] [place], [address] Eosinophils/100 WBC (Bld) 0.8 % Normal 0-5 [facility] Comment on above: Performed By: #### L 100.0100, L500.2500 ####[facility] [address] [place], [address] Erythrocyte distribution width (RBC) [Ratio] 12.4 % Normal 11.6-14.6 [facility] Comment on above: Performed By: #### L 100.0100, L500.2500 ####[facility] [address] [place], [address] Hematocrit (Bld) [Volume fraction] 50.8 % High 37-47 [facility] Comment on above: Performed By: #### L 100.0100, L500.2500 ####[facility] [address] [place], [address] Hemoglobin (Bld) [Mass/Vol] 16.7 g/dL High 12.0-15.0 [facility] Comment on above: Performed By: #### L 100.0100, L500.2500 ####[facility] [address] [place], [address] IG% 0.800 Normal 0.0-0.9 [facility] Comment on above: Result Comment: IG% - Immature Granulocytes (promyelocytes, myelocytes and metamyelocytes) > 1% indicates that a LEFT SHIFT is Present. Performed By: #### L 100.0100, L500.2500 ####[facility] [address] [place], [address] Lymphocytes/100 WBC (Bld) 28.1 % Normal 19-41 [facility] Comment on above: Performed By: #### L 100.0100, L500.2500 ####[facility] [address] [place], [address] MCH (RBC) [Entitic mass] 30.2 pg Normal 27.0-32.0 [facility] Comment on above: Performed By: #### L 100.0100, L500.2500 ####[facility] [address] [place], [address] MCHC (RBC) [Mass/Vol] 32.9 g/dL Normal 32-36 [facility] Comment on above: Performed By: #### L 100.0100, L500.2500 ####[facility] [address] [place], [address] MCV (RBC) [Entitic vol] 91.9 fL Normal 81-99 [facility] Comment on above: Performed By: #### L 100.0100, L500.2500 ####[facility] [address] [place], [address] Monocytes/100 WBC (Bld) 8.5 % Normal 0-10 [facility] Comment on above: Performed By: #### L 100.0100, L500.2500 ####[facility] [address] [place], [address] Neutrophils/100 WBC (Bld) 60.8 % Normal 47-70 [facility] Comment on above: Performed By: #### L 100.0100, L500.2500 ####[facility] [address] [place], [address] Nucleated RBC (Bld) [#/Vol] 0 10*3/uL Normal 0-5 [facility] Comment on above: Performed By: #### L 100.0100, L500.2500 ####[facility] [address] [place], [address] Platelet mean volume (Bld) [Entitic vol] 9.6 fL Normal 6.2-12.0 [facility] Comment on above: Performed By: #### L 100.0100, L500.2500 ####[facility] [address] [place], [address] Platelets (Bld) [#/Vol] 225 10*3/uL Normal 150-450 [facility] Comment on above: Performed By: #### L 100.0100, L500.2500 ####[facility] [address] [place], [address] RBC (Bld) [#/Vol] 5.53 10*6/uL High 4.2-5.[address] [facility] Comment on above: Performed By: #### L 100.0100, L500.2500 ####[facility] [address] [place], [address] RDW SD 42.0 fl Normal 35.1-43.9 [facility] Comment on above: Performed By: #### L 100.0100, L500.2500 ####[facility] [address] [place], [address] WBC (Bld) [#/Vol] 9.2 10*3/uL Normal 4.4-11.0 [facility] Comment on above: Performed By: #### L 100.0100, L500.2500 ####[facility] [address] [place], [address] Operative Reporton 4 Operative Report [facility] Medical Records Department [address] [place] [address] Operative Report 09/02/24 1642 MR#: [id number] Acct: [id number] Name: CHIDI MUSA Rep #: [id number] : 1965 59 From: Alejandro Quintana MD PCP: Josephine Walter NP-Jessica Status:REG [facility] Location: [facility] Operative Report (Standard) [...] procedure site patient was taken to the Can Top Setter where she was positioned prepped and draped [...] distal aspect. Through the micropuncture sheath a Intuitive User Interfacesson wire was advanced traversing the prior stent and into the abdominal aorta. The micropuncture sheath was exchanged for a short 5 Luxembourger sheath and through this an Omni Flush [...] stent was fairly undersized compared to the shishmaref ira vessel. Finally this confirmed that we were able to treat the culprit lesion without need to extend to the aorta. The patient was then heparinized allowed to circulate for 3 minutes. The intravascular ultrasound probe was withdrawn and the catheter readvanced, the 018 wire exchanged for the Rolltech wire and the 5 Luxembourger sheath exchanged for 7 Luxembourger Brite tip sheath. A marker catheter was [...] balloon was (more content not included)... Normal [facility] CT LUMBAR SPINE WO IVCONon 1 10-23-2023 CT LUMBAR SPINE WO IVCON * * *Final Report* * * DATE OF EXAM: Aug 23 2024 5:52PM [facility] 0508 - CT LUMBAR SPINE WO IVCON / PROCEDURE REASON: Low back pain, fall * * * * Physician Interpretation * * * * EXAMINATION: CT LUMBAR SPINE WO IVCON, CT SACRUM/COCCYX WO CONTRAST CLINICAL HISTORY: Low back pain, fall (accession [id number]), Trauma (accession [id number]) Technique: CT of the lumbar spine and [...] appreciable fracture in the sacrum or coccyx. E Commerce Retailer: PILLO Transcribe Date/Time: Aug 23 2024 7:45P Dictated by : PETROAN SALINAS MD This examination was interpreted and the report reviewed and electronically signed by: PETRONA SALINAS MD on Aug 23 2024 7:55PM EST [id number] N [facility] CT SACRUM/COCCYX WO CONTRAST on 08-23-2024 CT SACRUM/COCCYX WO CONTRAST * * *Final Report* * * DATE OF EXAM: Aug 23 2024 5:52PM [facility] 0088 - CT SACRUM/COCCYX WO CONTRAST / PROCEDURE REASON: Trauma * * * * Physician Interpretation * * * * EXAMINATION: CT LUMBAR SPINE WO IVCON, CT SACRUM/COCCYX WO CONTRAST CLINICAL HISTORY: Low back pain, fall (accession [id number]), Trauma (accession [id number]) Technique: CT of the lumbar spine and [...] appreciable fracture in the sacrum or coccyx. E Commerce Retailer: [facility] Transcribe Date/Time: Aug 23 2024 7:45P Dictated by : PETRONA SALINAS MD This examination was interpreted and the report reviewed and electronically signed by: PETRONA SALINAS MD on Aug 23 2024 7:55PM EST [id number] N [facility] ED NOTEon 08-23-2024 ED NOTE HNO ID: [id number] Author: DEMETRA WINSTON RN Service: Emergency Medicine Author Type: Registered Nurse Type: ED Notes Filed: 08/23/2024 22:20 Note Text: Pt ambulated in turner without issue. Dr Stafford notified. [facility] ED NOTE HNO ID: [id number] Author: DEMETRA WINSTON, REN Service: Emergency Medicine [...] staying due to her puppy at home. [facility] ED NOTE HNO ID: [id number] Author: TAMMI FLORES Tech Service: ? Author Type: Hospice Educator Type: ED Notes Filed: 08/23/2024 18:49 Note Text: Bed: 04-ED Expected date: Expected time: Means of arrival: Comments: room 16 [facility] ED NOTE HNO ID: [id number] Author: RAFFI BEASLEY RN Service: Emergency Medicine Author Type: Registered Nurse Type: ED Notes Filed: 08/23/2024 17:49 Note Text: Trauma downgraded to level 3 per Trauma Activation Criteria flowsheet. As a result, ELKIN was downgraded to a 3. [facility] ED NOTE HNO ID: [id number] Author: ANGELA AWAD RN Service: ? Author Type: Registered Nurse Type: ED Notes Filed: 08/23/2024 17:24 Note Text: Trauma activated [facility] ED PROV NOTEon 08-23-2024 ED PROV NOTE HNO ID: [id number] Author: ROMEO STAFFORD MD Service: ? Author [...] appreciable fracture in the sacrum or coccyx. [employer] Retailer: [facility] Transcribe Date/Time: Aug 23 2024 7:45P Dictated by : PETRONA SALINAS MD This examination was interpreted and the report reviewed and electronically signed by: PETRONA SALINAS MD on Aug 23 2024 7:55PM EST CT SACRUM/COCCYX WO IVCON Final Result IMPRESSION: No traumatic subluxation or fracture in the lumbar spine. No appreciable fracture in the sacrum or coccyx. [employer] Commerce Retailer: [facility] Transcribe Date/Time: Aug 23 2024 7:45P Dictated by : PETRONA MILLS (more content not included)... Normal [facility] ED Triage Noteon 08-23-2024 ED Triage Note HNO ID: [id number] Author: NORI CHRISTIAN PA-C Service: ? Author Type: Physician Tire Spotter Type: ED Triage Notes Filed: 08/23/2024 17:26 [...] injection (Toradol) SIGNATURE: Nori Christian PA-C Normal [facility] .Auto Diffon 07-22-2024 Basophil, Absolute 0.1 10 3/mcL Normal 0.0-0.2 [facility] Comment on above: Performed By: #### T SH, GFR, CMP, A1C, ANEU, VIDH, CBC, LIPID, FT4, ADIFF #### [address] [address] Basophils/100 WBC (Bld) 0.9 % Normal 0.0-2.5 [facility] Comment on above: Performed By: #### T SH, GFR, CMP, A1C, ANEU, VIDH, CBC, LIPID, FT4, ADIFF #### [address] [address] Eosinophil, Absolute 0.1 10 3/mcL Normal 0.0-0.7 [facility] Comment on above: Performed By: #### T SH, GFR, CMP, A1C, ANEU, VIDH, CBC, LIPID, FT4, ADIFF #### [address] [address] Eosinophils/100 WBC (Bld) 0.9 % Normal 0.0-7.0 [facility] Comment on above: Performed By: #### T SH, GFR, CMP, A1C, ANEU, VIDH, CBC, LIPID, FT4, ADIFF #### [address] [address] Lymphocyte, Absolute 3.6 10 3/mcL Normal 0.9-4.3 [facility] Comment on above: Performed By: #### T SH, GFR, CMP, A1C, ANEU, VIDH, CBC, LIPID, FT4, ADIFF #### [address] [address] Lymphocytes/100 WBC (Bld) 29.7 % Normal 20.0-40.0 [facility] Comment on above: Performed By: #### T SH, GFR, CMP, A1C, ANEU, VIDH, CBC, LIPID, FT4, ADIFF #### [address] [address] Monocyte, Absolute 0.7 10 3/mcL Normal 0.1-1.4 [facility] Comment on above: Performed By: #### T SH, GFR, CMP, A1C, ANEU, VIDH, CBC, LIPID, FT4, ADIFF #### [address] [address] Monocytes/100 WBC (Bld) 5.8 % Normal 2.0-13.0 [facility] Comment on above: Performed By: #### T SH, GFR, CMP, A1C, ANEU, VIDH, CBC, LIPID, FT4, ADIFF #### [id number] [place], [place] [address] Neutrophils/100 WBC (Bld) 62.7 % Normal 50.0-75.0 [facility] Comment on above: Performed By: #### T SH, GFR, CMP, A1C, ANEU, VIDH, CBC, LIPID, FT4, ADIFF #### [address] [address] .GFRon 07-22-2024 GFR 107 ml/min/1.73sqm Normal [facility] Comment on above: Result Comment: GFR Population [...] ANEU, VIDH, CBC, LIPID, FT4, ADIFF #### [address] [address] GFR Non- 88 ml/min/1.73sqm Normal [facility] Comment on above: Result Comment: GFR Population [...] ANEU, VIDH, CBC, LIPID, FT4, ADIFF #### [address] [address] .NEUABSon 07-22-2024 Neutrophil, Absolute 7.5 10 3/mcL Normal 2.3-8.1 [facility] Comment on above: Performed By: #### T SH, GFR, CMP, A1C, ANEU, VIDH, CBC, LIPID, FT4, ADIFF #### [address] [address] AMYon 07-22-2024 Amylase [Catalytic activity/Vol] 40 U/L Normal 25-115 [facility] Comment on above: Performed By: #### T SH, GFR, CMP, A1C, ANEU, VIDH, CBC, LIPID, FT4, ADIFF #### [address] [address] CBCon 07-22-2024 Erythrocyte distribution width (RBC) [Ratio] 13.7 % Normal 11.5-15.5 [facility] Comment on above: Performed By: #### T SH, GFR, CMP, A1C, ANEU, VIDH, CBC, LIPID, FT4, ADIFF #### [address] [address] Hematocrit (Bld) [Volume fraction] 48.0 % High 34.0-46.0 [facility] Comment on above: Performed By: #### T SH, GFR, CMP, A1C, ANEU, VIDH, CBC, LIPID, FT4, ADIFF #### [place] [address] Hgb 16.0 G/dL Normal 12.0-16.0 [facility] Comment on above: Performed By: #### T SH, GFR, CMP, A1C, ANEU, VIDH, CBC, LIPID, FT4, ADIFF #### [place] [address] MCH (RBC) [Entitic mass] 30.6 pg Normal 27.0-33.0 [facility] Comment on above: Performed By: #### T SH, GFR, CMP, A1C, ANEU, VIDH, CBC, LIPID, FT4, ADIFF #### [place] [address] MCHC 33.3 G/dL Normal 32.0-36.0 [facility] Comment on above: Performed By: #### T SH, GFR, CMP, A1C, ANEU, VIDH, CBC, LIPID, FT4, ADIFF #### [place] [address] MCV (RBC) [Entitic vol] 92.2 fL Normal 80.0-99.0 [facility] Comment on above: Performed By: #### T SH, GFR, CMP, A1C, ANEU, VIDH, CBC, LIPID, FT4, ADIFF #### [place] [address] Platelet 214 10 3/mcL Normal 150-450 [facility] Comment on above: Performed By: #### T SH, GFR, CMP, A1C, ANEU, VIDH, CBC, LIPID, FT4, ADIFF #### [place] [address] Platelet mean volume (Bld) [Entitic vol] 8.4 fL Normal 6.6-10.5 [facility] Comment on above: Performed By: #### T SH, GFR, CMP, A1C, ANEU, VIDH, CBC, LIPID, FT4, ADIFF #### [address] [address] RBC 5.21 10 6/mcL Normal 4.10-5.30 [facility] Comment on above: Performed By: #### T SH, GFR, CMP, A1C, ANEU, VIDH, CBC, LIPID, FT4, ADIFF #### [address] [address] WBC 12.0 10 3/mcL High 4.5-10.8 [facility] Comment on above: Performed By: #### T SH, GFR, CMP, A1C, ANEU, VIDH, CBC, LIPID, FT4, ADIFF #### [place] [address] CDIFPCRon 07-22-2024 Clostridium difficile PCR Negative Normal Negative [facility] Comment on above: Performed By: #### T SH, GFR, CMP, A1C, ANEU, VIDH, CBC, LIPID, FT4, ADIFF #### [address] [address] Clostridium difficile PCR Int Normal [facility] Comment on above: Result Comment: No t cdB gene DNA detected. Negative test results may occur from improper collection, handling or storage of specimen, technical error, or extremely low levels of target below the limit of detection of the assay. See Below Performed By: #### T SH, GFR, CMP, A1C, ANEU, VIDH, CBC, LIPID, FT4, ADIFF #### [address] [address] CMPon 07-22-2024 Albumin Level 4.1 G/dL Normal 3.4-4.8 [facility] Comment on above: Performed By: #### T SH, GFR, CMP, A1C, ANEU, VIDH, CBC, LIPID, FT4, ADIFF #### [address] [address] Albumin/Globulin [Mass ratio] 1.5 {ratio} Normal 1.1-2.5 [facility] Comment on above: Performed By: #### T SH, GFR, CMP, A1C, ANEU, VIDH, CBC, LIPID, FT4, ADIFF #### [address] [address] ALP [Catalytic activity/Vol] 69 U/L Normal 40-135 [facility] Comment on above: Performed By: #### T SH, GFR, CMP, A1C, ANEU, VIDH, CBC, LIPID, FT4, ADIFF #### [address] [address] ALT [Catalytic activity/Vol] 29 U/L Normal 14-59 [facility] Comment on above: Performed By: #### T SH, GFR, CMP, A1C, ANEU, VIDH, CBC, LIPID, FT4, ADIFF #### [address] [address] AST [Catalytic activity/Vol] 13 U/L Normal 10-40 [facility] Comment on above: Performed By: #### T SH, GFR, CMP, A1C, ANEU, VIDH, CBC, LIPID, FT4, ADIFF #### [address] [address] Bili Total 1.2 mg/dL High 0.2-1.0 [facility] Comment on above: Result Comment: Use of this assay is not recommended for patients undergoing treatment with eltrombopag due to the potential for falsely elevated results. Performed By: #### T SH, GFR, CMP, A1C, ANEU, VIDH, CBC, LIPID, FT4, ADIFF #### [address] [address] BUN/Creatinine Ratio 16 ratio Normal 7-27 [facility] Comment on above: Performed By: #### T SH, GFR, CMP, A1C, ANEU, VIDH, CBC, LIPID, FT4, ADIFF #### [address] [address] Calcium [Mass/Vol] 9.6 mg/dL Normal 8.4-10.2 [facility] Comment on above: Performed By: #### T SH, GFR, CMP, A1C, ANEU, VIDH, CBC, LIPID, FT4, ADIFF #### [address] [address] Chloride [Moles/Vol] 104 mmol/L Normal 98-107 [facility] Comment on above: Performed By: #### T SH, GFR, CMP, A1C, ANEU, VIDH, CBC, LIPID, FT4, ADIFF #### [address] [address] CO2 [Moles/Vol] 27 mmol/L Normal 23-31 [facility] Comment on above: Performed By: #### T SH, GFR, CMP, A1C, ANEU, VIDH, CBC, LIPID, FT4, ADIFF #### [place] [address] Creatinine [Mass/Vol] 0.68 mg/dL Normal 0.55-1.02 [facility] Comment on above: Result Comment: Test ing performed on Siemens Dimension EXL analyzer using a modified kinetic Rena technique. Performed By: #### T SH, GFR, CMP, A1C, ANEU, VIDH, CBC, LIPID, FT4, ADIFF #### [address] [address] Electrolyte Balance 9.0 mEq/L Normal 4.0-15.0 [facility] Comment on above: Performed By: #### T SH, GFR, CMP, A1C, ANEU, VIDH, CBC, LIPID, FT4, ADIFF #### [place] [id number] Globulin 2.7 G/dL Normal [facility] Comment on above: Performed By: #### T SH, GFR, CMP, A1C, ANEU, VIDH, CBC, LIPID, FT4, ADIFF #### [address] [address] Glucose [Mass/Vol] 150 mg/dL High 80-115 [facility] Comment on above: Performed By: #### T SH, GFR, CMP, A1C, ANEU, VIDH, CBC, LIPID, FT4, ADIFF #### [address] [address] Potassium [Moles/Vol] 4.1 mmol/L Normal 3.5-5.1 [facility] Comment on above: Performed By: #### T SH, GFR, CMP, A1C, ANEU, VIDH, CBC, LIPID, FT4, ADIFF #### [id number] [place], [place] [address] Sodium [Moles/Vol] 140 mmol/L Normal 136-145 [facility] Comment on above: Performed By: #### T SH, GFR, CMP, A1C, ANEU, VIDH, CBC, LIPID, FT4, ADIFF #### [id number] [place], [place] [address] Total Protein 6.8 G/dL Normal 6.4-8.2 [facility] Comment on above: Performed By: #### T SH, GFR, CMP, A1C, ANEU, VIDH, CBC, LIPID, FT4, ADIFF #### [id number] [place], [place] [address] Urea nitrogen [Mass/Vol] 11 mg/dL Normal 7-18 [facility] Comment on above: Performed By: #### T SH, GFR, CMP, A1C, ANEU, VIDH, CBC, LIPID, FT4, ADIFF #### [address] [address] LABORATORYOrdered By: Dannielle Finley on 07-22-2024 Adenovirus [...] Comment on above: Result Comment: T he chair finisher of the Stool GI PCR panel has [...] 07-22-2024 Lipase Level 48 U/L Normal 16-77 [facility] Comment on above: Performed By: #### T SH, GFR, CMP, A1C, ANEU, VIDH, CBC, LIPID, FT4, ADIFF #### [address] [address] OCC (LAB)on 07-22-2024 Occult Blood Fecal Negative Normal Negative [facility] Comment on above: Performed By: #### S TGIPCR ####[place] [address]#### OCC ####[address] [address] STGIPCRon 07-22-2024 Adenovirus F 40/41 Not detected Normal Not Detected [facility] Comment on above: Performed By: #### T SH, GFR, CMP, A1C, ANEU, VIDH, CBC, LIPID, FT4, ADIFF #### [address] [address] Astrovirus Not detected Normal Not Detected [facility] Comment on above: Performed By: #### T SH, GFR, CMP, A1C, ANEU, VIDH, CBC, LIPID, FT4, ADIFF #### [address] [address] Campy (jejuni/coli/ups) Not detected Normal Not Detected [facility] Comment on above: Performed By: #### T SH, GFR, CMP, A1C, ANEU, VIDH, CBC, LIPID, FT4, ADIFF #### [address] [address] Cryptosporidium Not detected Normal Not Detected [facility] Comment on above: Performed By: #### T SH, GFR, CMP, A1C, ANEU, VIDH, CBC, LIPID, FT4, ADIFF #### [address] [address] Cyclospora Not detected Normal Not Detected [facility] Comment on above: Performed By: #### T SH, GFR, CMP, A1C, ANEU, VIDH, CBC, LIPID, FT4, ADIFF #### [address] [address] E. coli (ETEC) Not detected Normal Not Detected [facility] Comment on above: Performed By: #### T SH, GFR, CMP, A1C, ANEU, VIDH, CBC, LIPID, FT4, ADIFF #### [place] [address] E. coli O157 Not Applicable Normal Not Detected [facility] Comment on above: Performed By: #### T SH, GFR, CMP, A1C, ANEU, VIDH, CBC, LIPID, FT4, ADIFF #### [place] [address] Entamoeba histolytica Not detected Normal Not Detected [facility] Comment on above: Performed By: #### T SH, GFR, CMP, A1C, ANEU, VIDH, CBC, LIPID, FT4, ADIFF #### [place] [address] Enteroaggregative E. coli (EAEC) Not detected Normal Not Detected [facility] Comment on above: Performed By: #### T SH, GFR, CMP, A1C, ANEU, VIDH, CBC, LIPID, FT4, ADIFF #### [place] [address] Enteropathogenic E. coli (EPEC) Not detected Normal Not Detected [facility] Comment on above: Performed By: #### T SH, GFR, CMP, A1C, ANEU, VIDH, CBC, LIPID, FT4, ADIFF #### [place] [address] Giardia lamblia Not detected Normal Not Detected [facility] Comment on above: Performed By: #### T SH, GFR, CMP, A1C, ANEU, VIDH, CBC, LIPID, FT4, ADIFF #### [place] [address] Norovirus GI/GII See below Normal Not Detected [facility] Comment on above: Result Comment: T he chair finisher of the Stool GI PCR panel has identified an increase of potential false positive results for Norovirus. A Norovirus positive result should correlate with the patient?s clinical history and presentation, along with travel history and disease severity. Performed By: #### T SH, GFR, CMP, A1C, ANEU, VIDH, CBC, LIPID, FT4, ADIFF #### [place] [address] Plesiomonas shigelloides Not detected Normal Not Detected [facility] Comment on above: Performed By: #### T SH, GFR, CMP, A1C, ANEU, VIDH, CBC, LIPID, FT4, ADIFF #### [place] [address] Rotavirus A Not detected Normal Not Detected [facility] Comment on above: Performed By: #### T SH, GFR, CMP, A1C, ANEU, VIDH, CBC, LIPID, FT4, ADIFF #### [place] [address] Salmonella species, stool Not detected Normal Not Detected [facility] Comment on above: Performed By: #### T SH, GFR, CMP, A1C, ANEU, VIDH, CBC, LIPID, FT4, ADIFF #### [place] [address] Sapovirus I,II,IV,V Not detected Normal Not Detected [facility] Comment on above: Performed By: #### T SH, GFR, CMP, A1C, ANEU, VIDH, CBC, LIPID, FT4, ADIFF #### [place] [address] Shig Tox E. coli (STEC) Not detected Normal Not Detected [facility] Comment on above: Performed By: #### T SH, GFR, CMP, A1C, ANEU, VIDH, CBC, LIPID, FT4, ADIFF #### [place] [address] Shigella/Enteroinvas elaine E. coli (EIEC) Not detected Normal Not Detected [facility] Comment on above: Performed By: #### T SH, GFR, CMP, A1C, ANEU, VIDH, CBC, LIPID, FT4, ADIFF #### [place] [address] Stool GI Comment See Comment Normal [facility] Comment on above: Result Comment: Viru s, [...] ANEU, VIDH, CBC, LIPID, FT4, ADIFF #### [id number] [place], [place] [address] Vibrio cholerae Not detected Normal Not Detected [facility] Comment on above: Performed By: #### T SH, GFR, CMP, A1C, ANEU, VIDH, CBC, LIPID, FT4, ADIFF #### [address] [address] Vibrio par/vul/chol Not detected Normal Not Detected [facility] Comment on above: Performed By: #### T SH, GFR, CMP, A1C, ANEU, VIDH, CBC, LIPID, FT4, ADIFF #### [address] [address] Yersinia enterocolitica Not detected Normal Not Detected [facility] Comment on above: Performed By: #### T SH, GFR, CMP, A1C, ANEU, VIDH, CBC, LIPID, FT4, ADIFF #### [address] [address] COVPCRon 06-03-2024 SARS-CoV-2 (COVID-19) RNA JASON+probe Ql (Unsp spec) Negative Normal Negative [facility] ([place]) Comment on above: Result Comment: Resu lts [...] Performed By: #### C OVPCR #### Shay [address] [address] LABORATORYOrdered By: Kelly Otriz on 06-03-2024 SARS-CoV-2 (COVID-19) RNA JASON+probe Ql [...] 06-03-2024 U Creatinine 74.6 mg/dL Normal 28.0-117.0 [facility] ([place]) Comment on above: Performed By: #### M ALBR #### [address] [address] U Microalb 442 mcg/dL Normal [facility] ([place]) Comment on above: Performed By: #### M ALBR #### [address] [address] U Ratio Alb/Cre 6 mcg/mg Normal 0-30 [facility] ([place]) Comment on above: Performed By: #### M ALBR #### [address] [address] .Auto Diffon 03-16-2024 Basophil, Absolute 0.1 10 3/mcL Normal 0.0-0.2 [facility] ([place]) Comment on above: Performed By: #### A DIFF, ANEU, CMP, GFR, CBC, LIPID #### [address] [address] Basophils/100 WBC (Bld) 0.8 % Normal 0.0-2.5 [facility] ([place]) Comment on above: Performed By: #### A DIFF, ANEU, CMP, GFR, CBC, LIPID #### [address] [address] Eosinophil, Absolute 0.1 10 3/mcL Normal 0.0-0.4 [facility] ([place]) Comment on above: Performed By: #### A DIFF, ANEU, CMP, GFR, CBC, LIPID #### [address] [address] Eosinophils/100 WBC (Bld) 0.9 % Normal 0.0-7.0 [facility] ([place]) Comment on above: Performed By: #### A DIFF, ANEU, CMP, GFR, CBC, LIPID #### [address] [address] Lymphocyte, Absolute 3.0 10 3/mcL Normal 0.8-3.9 [facility] ([place]) Comment on above: Performed By: #### A DIFF, ANEU, CMP, GFR, CBC, LIPID #### [address] [address] Lymphocytes/100 WBC (Bld) 25.0 % Normal 10.0-50.0 [facility] ([place]) Comment on above: Performed By: #### A DIFF, ANEU, CMP, GFR, CBC, LIPID #### [address] [address] Monocyte, Absolute 0.8 10 3/mcL Normal 0.2-1.0 [facility] ([place]) Comment on above: Performed By: #### A DIFF, ANEU, CMP, GFR, CBC, LIPID #### [address] [address] Monocytes/100 WBC (Bld) 6.9 % Normal 1.7-13.0 [facility] ([place]) Comment on above: Performed By: #### A DIFF, ANEU, CMP, GFR, CBC, LIPID #### [address] [address] Neutrophils/100 WBC (Bld) 66.4 % Normal 37.0-80.0 [facility] ([place]) Comment on above: Performed By: #### A DIFF, ANEU, CMP, GFR, CBC, LIPID #### [address] [address] .GFRon 03-16-2024 GFR 115 ml/min/1.73sqm Normal [facility] ([place]) Comment on above: Result Comment: GFR Population [...] DIFF, ANEU, CMP, GFR, CBC, LIPID #### [address] [address] GFR Non- 95 ml/min/1.73sqm Normal [facility] ([place]) Comment on above: Result Comment: GFR Population [...] DIFF, ANEU, CMP, GFR, CBC, LIPID #### [address] [address] .NEUABSon 03-16-2024 Neutrophil, Absolute 7.9 10 3/mcL High 2.9-6.2 [facility] ([place]) Comment on above: Performed By: #### A DIFF, ANEU, CMP, GFR, CBC, LIPID #### [address] [address] CBCon 03-16-2024 Erythrocyte distribution width (RBC) [Ratio] 13.6 % Normal 11.5-14.5 [facility] ([place]) Comment on above: Performed By: #### A DIFF, ANEU, CMP, GFR, CBC, LIPID #### [address] [address] Hematocrit (Bld) [Volume fraction] 47.6 % High 37.0-47.0 [facility] ([place]) Comment on above: Performed By: #### A DIFF, ANEU, CMP, GFR, CBC, LIPID #### [address] [address] Hgb 15.6 G/dL Normal 12.0-16.0 [facility] ([place] Comment on above: Performed By: #### A DIFF, ANEU, CMP, GFR, CBC, LIPID #### [address] [address] MCH (RBC) [Entitic mass] 30.2 pg Normal 27.0-31.2 [facility] ([place]) Comment on above: Performed By: #### A DIFF, ANEU, CMP, GFR, CBC, LIPID #### [place] [id number] MCHC 32.7 G/dL Low 33.0-37.0 [facility] [facility] ([place] Comment on above: Performed By: #### A DIFF, ANEU, CMP, GFR, CBC, LIPID #### [place] [address] MCV (RBC) [Entitic vol] 92.4 fL Normal 80.0-94.0 [facility] ([place] Comment on above: Performed By: #### A DIFF, ANEU, CMP, GFR, CBC, LIPID #### [place] [id number] Platelet 202 10 3/mcL Normal 130-400 [facility] ([place] Comment on above: Performed By: #### A DIFF, ANEU, CMP, GFR, CBC, LIPID #### [address] [address] Platelet mean volume (Bld) [Entitic vol] 8.8 fL Normal 7.4-10.4 [facility] ([place] Comment on above: Performed By: #### A DIFF, ANEU, CMP, GFR, CBC, LIPID #### [place] [id number] RBC 5.16 10 6/mcL Normal 4.20-5.40 [facility] ([place] Comment on above: Performed By: #### A DIFF, ANEU, CMP, GFR, CBC, LIPID #### [place] [id number] WBC 12.0 10 3/mcL High 4.6-10.8 [facility] ([place] Comment on above: Performed By: #### A DIFF, ANEU, CMP, GFR, CBC, LIPID #### [address] [address] CMPon 03-16-2024 Albumin Level 3.7 G/dL Normal 3.5-5.0 [facility] ([place] Comment on above: Performed By: #### A DIFF, ANEU, CMP, GFR, CBC, LIPID #### [address] [address] Albumin/Globulin [Mass ratio] 1.2 {ratio} Normal 1.1-2.5 [facility] ([place] Comment on above: Performed By: #### A DIFF, ANEU, CMP, GFR, CBC, LIPID #### [address] [address] ALP [Catalytic activity/Vol] 70 U/L Normal 40-135 [facility] ([place] Comment on above: Performed By: #### A DIFF, ANEU, CMP, GFR, CBC, LIPID #### [address] [address] ALT [Catalytic activity/Vol] 24 U/L Normal 14-59 [facility] ([place] Comment on above: Performed By: #### A DIFF, ANEU, CMP, GFR, CBC, LIPID #### [address] [address] AST [Catalytic activity/Vol] 13 U/L Normal 10-40 [facility] ([place] Comment on above: Performed By: #### A DIFF, ANEU, CMP, GFR, CBC, LIPID #### [address] [address] Bili Total 0.8 mg/dL Normal 0.2-1.0 [facility] ([place] Comment on above: Result Comment: Use of this assay is not recommended for patients undergoing treatment with eltrombopag due to the potential for falsely elevated results. Performed By: #### A DIFF, ANEU, CMP, GFR, CBC, LIPID #### [address] [address] BUN/Creatinine Ratio 20 ratio Normal 7-27 [facility] ([place]) Comment on above: Performed By: #### A DIFF, ANEU, CMP, GFR, CBC, LIPID #### [address] [address] Calcium [Mass/Vol] 8.6 mg/dL Normal 8.4-10.2 [facility] ([place] Comment on above: Performed By: #### A DIFF, ANEU, CMP, GFR, CBC, LIPID #### [address] [address] Chloride [Moles/Vol] 103 mmol/L Normal 98-107 [facility] ([place] Comment on above: Performed By: #### A DIFF, ANEU, CMP, GFR, CBC, LIPID #### [place] [address] CO2 [Moles/Vol] 27 mmol/L Normal 22-29 [facility] ([place]) Comment on above: Performed By: #### A DIFF, ANEU, CMP, GFR, CBC, LIPID #### [place] [address] Creatinine [Mass/Vol] 0.64 mg/dL Normal 0.55-1.02 [facility] ([place] Comment on above: Performed By: #### A DIFF, ANEU, CMP, GFR, CBC, LIPID #### [address] [address] Electrolyte Balance 9.0 mEq/L Normal 4.0-15.0 [facility] ([place] Comment on above: Performed By: #### A DIFF, ANEU, CMP, GFR, CBC, LIPID #### [address] [address] Globulin 3.1 G/dL Normal [facility] ([place] Comment on above: Performed By: #### A DIFF, ANEU, CMP, GFR, CBC, LIPID #### [address] [address] Glucose [Mass/Vol] 182 mg/dL High 70-105 [facility] ([place] Comment on above: Performed By: #### A DIFF, ANEU, CMP, GFR, CBC, LIPID #### [place] [id number] [place], [place] [address] Potassium [Moles/Vol] 4.0 mmol/L Normal 3.5-5.1 [facility] ([place] Comment on above: Performed By: #### A DIFF, ANEU, CMP, GFR, CBC, LIPID #### [place] [id number] [place], [place] [address] Sodium [Moles/Vol] 139 mmol/L Normal 136-145 [facility] ([place] Comment on above: Performed By: #### A DIFF, ANEU, CMP, GFR, CBC, LIPID #### [place] [address] [place], [place] [address] Total Protein 6.8 G/dL Normal 6.4-8.2 [facility] ([place] Comment on above: Performed By: #### A DIFF, ANEU, CMP, GFR, CBC, LIPID #### [place] [id number] [place], [place] [address] Urea nitrogen [Mass/Vol] 13 mg/dL Normal 7-18 [facility] ([place] Comment on above: Performed By: #### A DIFF, ANEU, CMP, GFR, CBC, LIPID #### [address] [address] LABORATORYOrdered By: SYSTEM SYSTEM on 03-16-2024 Albumin [...] 03-16-2024 Cholesterol [Mass/Vol] 111 mg/dL Normal 0-200 [facility] ([place] Comment on above: Result Comment: Chol esterol Reference Interval: Less than 200 Desirable 200-239 Borderline high risk 240 and above High risk Performed By: #### A DIFF, ANEU, CMP, GFR, CBC, LIPID #### [place] [id number] [place], [place] [address] Cholesterol in HDL [Mass/Vol] 37 mg/dL Low 40-60 [facility] [place] Comment on above: Performed By: #### A DIFF, ANEU, CMP, GFR, CBC, LIPID #### [place] [address] [address] Cholesterol in LDL [Mass/Vol] 30 mg/dL Normal 0-130 [facility] ([place] Comment on above: Performed By: #### A DIFF, ANEU, CMP, GFR, CBC, LIPID #### [place] [address] [address] Triglyceride [Mass/Vol] 222 mg/dL High 0-150 [facility] ([place] Comment on above: Result Comment: Trig lyceride Reference Interval: Less than 150 Normal 150-199 Borderline high risk 200-499 High risk 500 or higher Very high risk Performed By: #### A DIFF, ANEU, CMP, GFR, CBC, LIPID #### [place] [address] [address] CBC + DIFFon 05-21-2020 Basophils (Bld) [#/Vol] 0.10 x10EE3/UL Normal 0.00 - 0.10 [facility] Comment on above: Performed By: #### 2 17754 #### [facility],[address] [place] [address] Basophils/100 WBC (Bld) 1.3 % Normal 0.0 - 2.0 [facility] Comment on above: Performed By: #### 2 20977 #### [facility],[address] [place] [address] CBC + DIFF Normal [facility] Comment on above: Result Comment: CBC- COMPLETE BLOOD COUNT Performed By: #### 2 17469 #### [facility],[address] [place] [address] Eosinophils (Bld) [#/Vol] 0.20 x10EE3/UL Normal 0.00 - 0.50 [facility] Comment on above: Performed By: #### 2 78559 #### [facility],[address] [place] [address] Eosinophils/100 WBC (Bld) 1.6 % Normal 0.0 - 7.0 [facility] Comment on above: Performed By: #### 2 56404 #### [facility],[address] [place] [address] Erythrocyte distribution width (RBC) [Ratio] 13.2 % Normal 12.0 - 15.6 [facility] Comment on above: Performed By: #### 2 54581 #### [facility],[address] [place] [address] Hematocrit (Bld) [Volume fraction] 43.1 % Normal 34.0 - 46.0 [facility] Comment on above: Performed By: #### 2 44640 #### [facility],[address] [place] [address] Hemoglobin (Bld) [Mass/Vol] 14.9 g/dL Normal 12.0 - 16.0 [facility] Comment on above: Performed By: #### 2 06774 #### [facility],[address] [place] [address] Lymphocytes (Bld) [#/Vol] 3.00 x10EE3/UL High 0.80 - 2.80 [facility] Comment on above: Performed By: #### 2 26063 #### [facility],[address] [place] [address] Lymphocytes/100 WBC (Bld) 29.6 % Normal 20.0 - 45.0 [facility] Comment on above: Performed By: #### 2 89067 #### [facility],[address] [place] [address] MANUAL DIFF N/A Normal [facility] Comment on above: Performed By: #### 2 93592 #### [facility],[address] [place] [address] MCH (RBC) [Entitic mass] 32 pg Normal 27 - 33 [facility] Comment on above: Performed By: #### 2 64732 #### [facility],[address] [place] [address] MCHC (RBC) [Mass/Vol] 34 X10 3 Normal 32 - 36 [facility] Comment on above: Performed By: #### 2 79367 #### [facility],[address] [place] [address] MCV (RBC) [Entitic vol] 92 fL Normal 80 - 99 [facility] Comment on above: Performed By: #### 2 71581 #### [facility],[address] [place] [address] Monocytes (Bld) [#/Vol] 0.80 x10EE3/UL Normal 0.20 - 1.00 [facility] Comment on above: Performed By: #### 2 23443 #### [facility],[address] [place] [address] MONOS % 7.4 % Normal 0.0 - 10.0 [facility] Comment on above: Performed By: #### 2 41022 #### [facility],[address] [place] [address] Morphology Shamar (Bld) [Interp] N/A Normal [facility] Comment on above: Performed By: #### 2 89364 #### [facility],[address] [place] [address] Neutrophils (Bld) [#/Vol] 6.10 x10EE3/UL Normal 1.50 - 7.10 [facility] Comment on above: Performed By: #### 2 32101 #### [facility],[address] [place] [address] Neutrophils/100 WBC (Bld) 60.1 % Normal 46.0 - 76.0 [facility] Comment on above: Performed By: #### 2 75637 #### [facility],[address] [place] [address] Platelet mean volume (Bld) [Entitic vol] 8.5 fL Normal 6.6 - 10.5 [facility] Comment on above: Result Comment: AUTO MATED DIFFERENTIAL Performed By: #### 2 13309 #### [facility],[address] [place] [address] Platelets (Bld) [#/Vol] 243 x10EE3/UL Normal 150 - 450 [facility] Comment on above: Performed By: #### 2 94269 #### [facility],[address] [place] [address] RBC (Bld) [#/Vol] 4.70 x 10EE6/UL Normal 4.10 - 5.30 [facility] Comment on above: Performed By: #### 2 40116 #### [facility],[address] [place] [address] WBC (Bld) [#/Vol] 10.2 x 10EE3/UL Normal 4.5 - 10.8 [facility] Comment on above: Performed By: #### 2 64057 #### [facility],[address] [place] [address] CMP with eGFRon 05-21-2020 Age - Reported 54 years Normal [facility] Comment on above: Performed By: #### 2 20089 #### [facility],[address] [place] [address] Albumin [Mass/Vol] 4.0 g/dL Normal 3.4 - 4.8 [facility] Comment on above: Performed By: #### 2 66977 #### [facility],[address] [place] [address] Albumin/Globulin [Mass ratio] 1.5 {ratio} Normal 0.9 - 1.6 [facility] Comment on above: Performed By: #### 2 27702 #### [facility],[address] [place] [address] ALK PHOS 43 U/L Normal 38 - 126 [facility] Comment on above: Performed By: #### 2 20062 #### [facility],[address] [place] [address] ALT/SGPT 26 U/L Normal 8 - 35 [facility] Comment on above: Performed By: #### 2 71648 #### [facility],[address] [place] [address] Anion gap [Moles/Vol] 17 mmol/L Normal 10 - 20 [facility] Comment on above: Performed By: #### 2 23592 #### [facility],[address] [place] [address] AST/SGOT 20 U/L Normal 13 - 39 [facility] Comment on above: Performed By: #### 2 65768 #### [facility],[address] [place] [address] B/C RATIO 20 ratio Normal 0 - 30 [facility] Comment on above: Performed By: #### 2 22941 #### [facility],[address] [place] [address] Bilirubin [Mass/Vol] 1.0 mg/dL Normal 0.0 - 1.5 [facility] Comment on above: Performed By: #### 2 26026 #### [facility],[address] [place] [address] Calcium [Mass/Vol] 10.0 mg/dL Normal 8.6 - 10.2 [facility] Comment on above: Performed By: #### 2 51216 #### [facility],[address] [place] [address] Chloride [Moles/Vol] 105 mmol/L Normal 98 - 107 [facility] Comment on above: Performed By: #### 2 88217 #### [facility],[address] [place] [address] CO2 [Moles/Vol] 20.8 mmol/L Low 21.0 - 31.0 [facility] Comment on above: Performed By: #### 2 59232 #### [facility],[address] [place] [address] Creatinine [Mass/Vol] 0.6 mg/dL Normal 0.6 - 1.2 [facility] Comment on above: Performed By: #### 2 13837 #### [facility],[address] [place] [address] GFR/1.73 sq M predicted among non-blacks MDRD (S/P/Bld) [Vol rate/Area] mL/min/{1.73_m2} Normal 60 - 999 [facility] Comment on above: Performed By: #### 2 43469 #### [facility],[address] [place] [address] Result Comment: ACCO RDING TO THE NATIONAL KIDNEY DISEASE EDUCATION PROGRAM(NKDE), A NORMAL eGFR IS A VALUE GREATER THAN OR EQUAL TO 60 ML/MIN/1.73 SQ METERS. CHRONIC KIDNEY DISEASE: <60mL/MIN/1.73 SQ METERS KIDNEY FAILURE: <15mL/MIN/1.73 SQ METERS THIS TEST SHOULD ONLY BE USED FOR PATIENTS 18 YEARS OF AGE AND OLDER. GFR/1.73 sq M predicted among non-blacks MDRD (S/P/Bld) [Vol rate/Area] Normal [facility] Comment on above: Result Comment: COMP REHENSIVE METABOLIC PANEL Performed By: #### 2 16127 #### [place] [id number] Globulin (S) [Mass/Vol] 2.7 g/dL Normal 1.5 - 3.8 [facility] Comment on above: Performed By: #### 2 77911 #### [facility],[address] [place] [address] Glucose [Mass/Vol] 121 mg/dL High 74 - 106 [facility] Comment on above: Performed By: #### 2 94797 #### [address] [address] Potassium [Moles/Vol] 4.0 mmol/L Normal 3.5 - 5.1 [facility] Comment on above: Performed By: #### 2 41745 #### [place] [id number] Protein [Mass/Vol] 6.7 g/dL Normal 6.4 - 8.3 [facility] Comment on above: Performed By: #### 2 55108 #### [facility],[address] [place] [address] Sodium [Moles/Vol] 139 mmol/L Normal 136 - 145 [facility] Comment on above: Performed By: #### 2 49954 #### [facility],[address] [place] [address] Urea nitrogen [Mass/Vol] 12 mg/dL Normal 6 - 20 [facility] Comment on above: Performed By: #### 2 43336 #### [facility],[address] [place] [address] LIPID PROFILEon 05-21-2020 Cholesterol [Mass/Vol] 92 mg/dL Normal 0 - 200 [facility] Comment on above: Performed By: #### 2 50945 #### [facility],[address] [place] [address] Cholesterol in HDL [Mass/Vol] 32 mg/dL Low 40 - 60 [facility] Comment on above: Performed By: #### 2 88537 #### [facility],[address] [place] [address] Cholesterol in LDL [Mass/Vol] 36 mg/dL Normal 0 - 129 [facility] Comment on above: Performed By: #### 2 60369 #### [facility],[address] [place] [address] Cholesterol.total/Ch olesterol in HDL [Mass ratio] 2.9 {ratio} Normal 0.0 - 5.0 [facility] Comment on above: Performed By: #### 2 76703 #### [facility],[address] [place] [address] 77017 Lipid 1996 panel Normal [facility] Comment on above: Result Comment: LIPI D PROFILE Performed By: #### 2 28486 #### [facility],[address] [place] [address] Triglyceride [Mass/Vol] 121 mg/dL Normal 0 - 150 [facility] Comment on above: Performed By: #### 2 48179 #### [facility],[address] [place] [address]652 TSHon 05-21-2020 TSH Qn 1.64 uIU/ml Normal 0.34 - 5.60 [facility] Comment on above: Performed By: #### 2 39430 #### [facility],[address] [place] [address]459 GC/CHLAM AMPLIFICATION URINE [CCL]on 06-19-2019 Chlamydia Amplif, Ur Negative Normal [facility] Comment on above: Result Comment: For screening asymptomatic women, a vaginal swab specimen (APTIMA vaginal swab 952971) is optimal. Urine specimens have reduced sensitivity for Chlamydia trachomatis or Neisseria gonorrhoeae infection in female patients without symptoms. This test was developed and its performance characteristics determined by [facility]'s [facility] [place] ( [facility]). It has not been cleared or approved by the FDA. [facility] is regulated under CLIA as qualified to perform high complexity testing. This test is used for clinical purposes. It should not be regarded as investigational or for research. [facility] [place] [address] Coby Pierre M.D. [id number] Performed By: #### 2 44724 #### [facility],[address] [place] [address] UGCAMP Negative Normal [facility] Comment on above: Performed By: #### 2 43349 #### [facility],[address] [place] [address]652 GC/Chlamydia Amp, Uron 06-19 Chlamydia Amplif, Ur Normal [facility] Comment on above: Result Comment: Nega tive for For screening asymptomatic women, a vaginal swab specimen (APTIMA vaginal swab 589937) is optimal. Urine specimens have reduced sensitivity for Chlamydia trachomatis or Neisseria gonorrhoeae infection in female patients without symptoms. This test was developed and its performance characteristics determined by [facility] [place] ([facility]). It has not been cleared or approved by the FDA. [facility] is regulated under CLIA as qualified to perform high complexity testing. This test is used for clinical purposes. It should not be regarded as investigational or for research. Chlamydia For screening asymptomatic women, a vaginal swab specimen (APTIMA vaginal swab 199069) is optimal. Urine specimens have reduced sensitivity for Chlamydia trachomatis or Neisseria gonorrhoeae infection in female patients without symptoms. This test was developed and its performance characteristics determined by [facility] [place] ([facility]). It has not been cleared or approved by the FDA. [facility] is regulated under CLIA as qualified to perform high complexity testing. This test is used for clinical purposes. It should not be regarded as investigational or for research. trachomatis by For screening asymptomatic women, a vaginal swab specimen (APTIMA vaginal swab 394335) is optimal. Urine specimens have reduced sensitivity for Chlamydia trachomatis or Neisseria gonorrhoeae infection in female patients without symptoms. This test was developed and its performance characteristics determined by [facility] [place] ([facility]). It has not been cleared or approved by the FDA. [facility] is regulated under CLIA as qualified to perform high complexity testing. This test is used for clinical purposes. It should not be regarded as investigational or for research. amplification. For screening asymptomatic women, a vaginal swab specimen (APTIMA vaginal swab 870231) is optimal. Urine specimens have reduced sensitivity for Chlamydia trachomatis or Neisseria gonorrhoeae infection in female patients without symptoms. This test was developed and its performance characteristics determined by [facility] [place] ([facility]). It has not been cleared or approved by the FDA. [facility] is regulated under CLIA as qualified to perform high complexity testing. This test is used for clinical purposes. It should not be regarded as investigational or for research. Performed By: #### U GCCT #### [facility] Routine Lab [phone] GC Amplification, Ur NGNEG Normal [facility] Comment on above: Performed By: #### U GCCT #### [facility] Routine Lab [address] [place], [place] [address] CHEST 2 VIEWSon 06-17-2019 CHEST [address] [address] Patient: CHIDI SANDERSON Phone#: : 1965 Age: 54 Gender: F Pt. Type: Out Account: [id number] Location: Ordering: ALEJANDRO DAMON Exam Date: 06/17/2019/16:12 Family Phys: Charge Code: 275586 Physician: [place] Order #: [id number] DLP Dose#: PROCEDURE: X-RAY CHEST 2 VIEWS [...] Cuellar MD on 06/17/2019 at 16:35 Normal [facility] CULTURE URINEon 06-17-2019 CULTURE URINE CULTURE URINE _URINE CULTURE_ M I C R O B I O L O G Y R E P O R T FINAL Antimicrobial Susceptibility and Organism Identification Report Specimen Number : [id number] Requested : 06/17/19 Specimen Source : URINE Collected : 06/17/19 15:47 Rahman of Isolation : OUTPATIENT Received : 06/17/19 15:47 Requesting Physician : TOMMY PATRICK ------ Patient/Specimen Tests and Comments Specimen Comments FINAL REPORT: URINE COLONY COUNT: [id number] CFU/CC >OR=TO 3 COLONY TYPES CONTAMINATED WITH: GRAM POSITIVE ROSA ------ Tech : Source : URINE ID # : [id number] FINAL Report Date : / / : Collected : 06/17/19 15:47 06/20/19.1023.KLS. 06/19/19.0815.BKO. 06/20/19.1023.[employer] [facility]ANG[facility] Comment on above: Performed By: #### 2 31973 #### [facility],[address] [place], [place] [address] Laboratory - Chemistry and C hemistry - challengeon 06-17-2019 Glucose Glucometer (BldC) [Moles/Vol] 166 mg/dL Abnormal 60 - 105 mg/dL [facility] [place] - [facility] URINALYSISon 06-17-2019 Bilirubin [Mass/Vol] Negative Normal NORMAL: NEGATIVE [facility] Comment on above: Performed By: #### 2 44770 #### [facility],[address] [place] [address] 32429 Blood Negative Normal NORMAL: NEGATIVE [facility] Comment on above: Performed By: #### 2 15376 #### [facility],[address] [place], [place] [address] Clarity (U) clear Normal NORMAL: CLEAR [facility] Comment on above: Performed By: #### 2 91277 #### [facility],[address] [place], [place] [address] Color (U) p.yel Normal NORMAL: YELLOW [facility] Comment on above: Performed By: #### 2 95453 #### [facility],[address] [place] [address] 44231 Glucose [Mass/Vol] 100 Abnormal NORMAL: NORMAL [facility] Comment on above: Performed By: #### 2 16065 #### [facility],[address] [place] [address] 77293 Ketone Negative Normal NORMAL: NEGATIVE [facility] Comment on above: Performed By: #### 2 59107 #### [facility],[address] [place] [address] 32172 Microscopic NOT Normal [facility] Comment on above: Performed By: #### 2 69487 #### [facility],[address] [place] [address] 15816 Nitrite Ql (U) Negative Normal NORMAL: NEGATIVE [facility] Comment on above: Performed By: #### 2 38501 #### [facility],[address] [place] [address] pH (Bld) 6 Normal NORMAL: 5.0-8.0 [facility] Comment on above: Performed By: #### 2 66128 #### [facility],[address] [place] [address] Protein (U) [Mass/Vol] Negative Normal NORMAL: NEGATIVE [facility] Comment on above: Performed By: #### 2 60241 #### [facility],[address] [place] [address] Sp [place] 1.020 Normal NORMAL: 1.010-1.030 [facility] Comment on above: Performed By: #### 2 70702 #### [facility],[address] [place] [address] Specimen type Nom (Spec) UNSPECIFIED Normal [facility] Comment on above: Performed By: #### 2 21307 #### [facility],[address] [place] [address] 23345 Urobilinog NORM Normal NORMAL: NORMAL [facility] Comment on above: Performed By: #### 2 02051 #### [facility],[address] [place] [address] 76741 WBC (Bld) [#/Vol] Negative Normal NORMAL: NEGATIVE [facility] Comment on above: Performed By: #### 2 88033 #### [facility],[address] [place], [place] [address] Hemoglobin A1con 04-30-2019 HbA1c (Bld) [Mass fraction] 7.2 % High 4.3-5.6 [facility] Comment on above: Performed By: #### H BA1C #### [facility] Routine Lab [address] [place] [address] HbA1c (Bld) [Mass fraction] 160 mg/dL Normal [facility] Comment on above: Performed By: #### H BA1C #### [facility] Routine Lab [address] [place] [place] [address] Laboratory - Chemistry and C hemistry - challengeon 12-05-2018 Glucose Glucometer (BldC) [Moles/Vol] 160 mg/dL Abnormal 60 - 105 mg/dL [facility], [employer].; [facility] Hemoglobin A1con 12-02-2018 HbA1c (Bld) [Mass fraction] 9.1 % High 4.3-5.6 [facility] Comment on above: Performed By: #### H BA1C #### [facility] Laboratories Routine Lab [address] [address] HbA1c (Bld) [Mass fraction] 214 mg/dL Normal [facility] Comment on above: Performed By: #### H BA1C #### [facility] Routine Lab [address] [address] Laboratory - Chemistry and C hemistry - challengeon 11-03-2018 Glucose Glucometer (BldC) [Moles/Vol] 409 mg/dL Abnormal 60 - 105 mg/dL [facility].; [facility] Laboratory - Chemistry and C hemistry - challengeon 07-15-2018 Bilirubin Ql (U) Negative Normal [facility].; [facility] Ketones Ql (U) TRACE Abnormal [facility] pH (U) 5.5 [pH] Normal [facility] [employer] [facility] [employer].; [facility], [facility] Specific gravity (U) [Rel density] 1.030 Abnormal [facility] [employer] [facility] [employer].; [facility], [facility] Laboratory - Hematology and Cell countson 07-15-2018 Hemoglobin Ql (U) Negative Normal [facility] Laboratory - Specimen inform ationon 07-15-2018 Appearance (U) clear Normal [facility] Color (U) GEORGE Normal [facility] Laboratory - Urinalysison Glucose Test strip (U) [Mass/Vol] Negative Normal [facility], Inc.; [facility] Leukocyte esterase Test strip Ql (U) Negative Normal [facility], Inc.; [facility] Nitrite Ql (U) Negative Normal [facility], Inc.; [facility] Protein Ql (U) TRACE Abnormal [facility].; [facility] No Panel Informationon 07-15 UA - ODOR Negative Normal [facility], Inc.; [facility] UA - UROBILIGEN 1 Normal [facility].; [facility] Vital Signs Date Time Vital Sign Value Performing Clinician Faci lity 08-04-2025 07:57-0500 Body height 157.48 cm Josephine Winslow Work Phone: [facility] 08-04-2025 07:57-0500 Body mass index (BMI) [Ratio] 27.2 kg/m2 Josephine Walter NP-C Work Phone: [facility] 08-04-2025 07:57-0500 Body temperature 97.4 [degF] Josephine Walter NP -C Work Phone: [facility] 08-04-2025 07:57-0500 Body weight 67.58 kg Josephine Walter NP -C Work Phone: [facility] 08-04-2025 07:57-0500 Diastolic blood pressure 64 mm[Hg] Josephine Walter NP-C Work Phone: [facility] 08-04-2025 07:57-0500 Heart rate 93 /min Josephine Walter SCREEN PRINTING EQUIPMENT SETTER -C Work Phone: [facility] 08-04-2025 07:57-0500 Respiratory rate 18 /min Josephine Walter SCREEN PRINTING EQUIPMENT SETTER -C Work Phone: [facility] 08-04-2025 07:57-0500 SaO2% (BldA) [Mass fraction] 97 % Josephine Walter SCREEN PRINTING EQUIPMENT SETTER-C Work Phone: [facility] 08-04-2025 07:57-0500 Systolic blood pressure 111 mm[Hg] Josephine Walter SCREEN PRINTING EQUIPMENT SETTER-C Work Phone: [facility] 07-19-2025 14:06-0400 Body temperature 97 [degF] Josephine Walter SCREEN PRINTING EQUIPMENT SETTER -C Work Phone: [facility] 07-19-2025 14:06-0400 Diastolic blood pressure 78 mm[Hg] Josephine Lassiterer SCREEN PRINTING EQUIPMENT SETTER-C Work Phone: [facility] 07-19-2025 14:06-0400 Heart rate 82 /min Josephine Lassiterer SCREEN PRINTING EQUIPMENT SETTER -C Work Phone: [facility] 07-19-2025 14:06-0400 Respiratory rate 16 /min Josephine Lassiterer SCREEN PRINTING EQUIPMENT SETTER -C Work Phone: [facility] 07-19-2025 14:06-0400 SaO2% (BldA) [Mass fraction] 97 % Josephine Lassiterer SCREEN PRINTING EQUIPMENT SETTER-C Work Phone: [facility] 07-19-2025 14:06-0400 Systolic blood pressure 113 mm[Hg] Josephine Lassiterer SCREEN PRINTING EQUIPMENT SETTER-C Work Phone: [facility] 07-19-2025 10:28-0400 Body mass index (BMI) [Ratio] 28.2 kg/m2 Josephine Walter SCREEN PRINTING EQUIPMENT SETTER-C Work Phone: [facility] 07-19-2025 10:28-0400 Body weight 70 kg Josephine Walter SCREEN PRINTING EQUIPMENT SETTER -C Work Phone: [facility] 05-18-2025 09:11-0400 Body height 160 cm Kobi Jacque PA-C Work Phone: [facility] 05-18-2025 09:11-0400 Body mass index (BMI) [Ratio] 29.33 kg/m2 Kobi Jacque PA-C Work Phone: [facility] 05-18-2025 09:11-0400 Body weight 75.1 kg Kobi Jacque PA-C Work Phone: [facility] 05-18-2025 09:11-0400 Diastolic blood pressure 61 mm[Hg] Kobi Jacque PA-C Work Phone: [facility] 05-18-2025 09:11-0400 Heart rate 75 /min Kobi Jacque PA-C Work Phone: [facility] 05-18-2025 09:11-0400 Respiratory rate 16 /min Kobi Jacque PA-C Work Phone: [facility] 05-18-2025 09:11-0400 SaO2% (BldA) [Mass fraction] 98 % Kobi Jacque PA-C Work Phone: [facility] 05-18-2025 09:11-0400 Systolic blood pressure 118 mm[Hg] Kobi Jacque PA-C Work Phone: [facility] 04-01-2025 10:56-0400 Body height 157.48 cm Josephine Walter SCREEN PRINTING EQUIPMENT SETTER -C Work Phone: [facility] 04-01-2025 10:56-0400 Body mass index (BMI) [Ratio] 31.4 kg/m2 Josephine Waletr SCREEN PRINTING EQUIPMENT SETTER-C Work Phone: [facility] 04-01-2025 10:56-0400 Body weight 78.01 kg Josephine Walter SCREEN PRINTING EQUIPMENT SETTER -C Work Phone: [facility] 04-01-2025 10:56-0400 Diastolic blood pressure 71 mm[Hg] Josephine Walter SCREEN PRINTING EQUIPMENT SETTER-C Work Phone: [facility] 04-01-2025 10:56-0400 Heart rate 67 /min Josephine Walter SCREEN PRINTING EQUIPMENT SETTER -C Work Phone: [facility] 04-01-2025 10:56-0400 Respiratory rate 18 /min Josephine Walter SCREEN PRINTING EQUIPMENT SETTER -C Work Phone: [facility] 04-01-2025 10:56-0400 Systolic blood pressure 118 mm[Hg] Josephine Walter SCREEN PRINTING EQUIPMENT SETTER-C Work Phone: [facility] 02-23-2025 09:06-0400 Body height 160 cm Mayank Sheehan MD Work Phone: [facility] 02-23-2025 09:06-0400 Body mass index (BMI) [Ratio] 28.87 kg/m2 Mayank Sheehan MD Work Phone: [facility] 02-23-2025 09:06-0400 Body weight 73.94 kg Mayank Sheehan MD Work Phone: [facility] 02-16-2025 08:26-0400 Body height 157.5 cm Kobi Jacque PA-C Work Phone: [facility] 02-16-2025 08:26-0400 Body mass index (BMI) [Ratio] 30 kg/m2 Kobi Jacque PA-C Work Phone: [facility] 02-16-2025 08:26-0400 Body weight 74.4 kg Kobi Jacque PA-C Work Phone: [facility] 02-16-2025 08:26-0400 Diastolic blood pressure 68 mm[Hg] Kobi Jacque PA-C Work Phone: [facility] 02-16-2025 08:26-0400 Heart rate 77 /min Kobi Jacque PA-C Work Phone: [facility] 02-16-2025 08:26-0400 Respiratory rate 16 /min Kobi Rhdoesos PA-C Work Phone: [facility] 02-16-2025 08:26-0400 SaO2% (BldA) [Mass fraction] 98 % Kobi Rhodesos PA-C Work Phone: [facility] 02-16-2025 08:26-0400 Systolic blood pressure 125 mm[Hg] Kobi Garsia PA-C Work Phone: [facility] 01-27-2025 08:23-0400 Body height 157.48 cm Josephine Walter SCREEN PRINTING EQUIPMENT SETTER -C Work Phone: [facility] 01-27-2025 08:23-0400 Body mass index (BMI) [Ratio] 30.5 kg/m2 Josephine Walter SCREEN PRINTING EQUIPMENT SETTER-C Work Phone: [facility] 01-27-2025 08:23-0400 Body weight 75.74 kg Josephine Walter SCREEN PRINTING EQUIPMENT SETTER -C Work Phone: [facility] 01-27-2025 08:23-0400 Diastolic blood pressure 75 mm[Hg] Josephine Walter SCREEN PRINTING EQUIPMENT SETTER-C Work Phone: [facility] 01-27-2025 08:23-0400 Heart rate 76 /min Josephine Walter SCREEN PRINTING EQUIPMENT SETTER -C Work Phone: [facility] 01-27-2025 08:23-0400 Respiratory rate 18 /min Josephine Walter SCREEN PRINTING EQUIPMENT SETTER -C Work Phone: [facility] 01-27-2025 08:23-0400 Systolic blood pressure 130 mm[Hg] Josephine Walter SCREEN PRINTING EQUIPMENT SETTER-C Work Phone: [facility] 01-26-2025 10:51-0400 Body height 157.5 cm Marlee Overton MD Work Phone: [facility] 01-26-2025 10:51-0400 Body mass index (BMI) [Ratio] 30.36 kg/m2 Marlee Overton MD Work Phone: [facility] 01-26-2025 10:51-0400 Body weight 75.3 kg Marlee Overton MD Work Phone: [facility] 01-26-2025 10:51-0400 Respiratory rate 17 /min Marlee Overton MD Work Phone: [facility] 01-19-2025 10:18-0400 Body height 157.5 cm Marlee Overton MD Work Phone: [facility] 01-19-2025 10:18-0400 Body mass index (BMI) [Ratio] 30.36 kg/m2 Marlee Overton MD Work Phone: [facility] 01-19-2025 10:18-0400 Body weight 75.3 kg Marlee Overton MD Work Phone: [facility] 01-19-2025 10:18-0400 Respiratory rate 18 /min Marlee Overton MD Work Phone: [facility] 01-13-2025 09:00-0400 Diastolic blood pressure 80 mm[Hg] Sara Golias PT Work Phone: [facility] 01-13-2025 09:00-0400 Heart rate 75 /min Sara Golias PT Work Phone: [facility] 01-13-2025 09:00-0400 Systolic blood pressure 132 mm[Hg] Sara Golias PT Work Phone: [facility] 12-15-2024 10:48-0400 Body height 157.5 cm Mayank Sheehan MD Work Phone: [facility] 12-15-2024 10:48-0400 Body mass index (BMI) [Ratio] 30.36 kg/m2 Mayank Sheehan MD Work Phone: [facility] 12-15-2024 10:48-0400 Body weight 75.3 kg Mayank Sheehan MD Work Phone: [facility] 11-17-2024 14:16-0500 Body temperature 97.6 [degF] Josephine Walter SCREEN PRINTING EQUIPMENT SETTER -C Work Phone: [facility] 11-17-2024 14:16-0500 Body weight 75.29 kg Josephine Walter SCREEN PRINTING EQUIPMENT SETTER -C Work Phone: [facility] 11-17-2024 14:16-0500 Diastolic blood pressure 75 mm[Hg] Josephine Walter SCREEN PRINTING EQUIPMENT SETTER-C Work Phone: [facility] 11-17-2024 14:16-0500 Heart rate 90 /min Josephine Walter SCREEN PRINTING EQUIPMENT SETTER -C Work Phone: [facility] 11-17-2024 14:16-0500 Respiratory rate 16 /min Josephine Walter SCREEN PRINTING EQUIPMENT SETTER -C Work Phone: [facility] 11-17-2024 14:16-0500 SaO2% (BldA) [Mass fraction] 97 % Josephine Walter SCREEN PRINTING EQUIPMENT SETTER-C Work Phone: [facility] 11-17-2024 14:16-0500 Systolic blood pressure 153 mm[Hg] Josephine Walter SCREEN PRINTING EQUIPMENT SETTER-C Work Phone: [facility] 11-09-2024 09:07-0500 Body height 157.5 cm Pacc 1 Work Phone: [facility] 11-09-2024 09:07-0500 Body mass index (BMI) [Ratio] 29.63 kg/m2 Pacc 1 Work Phone: [facility] 11-09-2024 09:07-0500 Body weight 73.48 kg Pacc 1 Work Phone: [facility] 11-09-2024 09:07-0500 Diastolic blood pressure 76 mm[Hg] Pacc 1 Work Phone: [facility] 11-09-2024 09:07-0500 Heart rate 85 /min Pacc 1 Work Phone: [facility] 11-09-2024 09:07-0500 Respiratory rate 18 /min Pacc 1 Work Phone: [facility] 11-09-2024 09:07-0500 SaO2% (BldA) [Mass fraction] 96 % Pac 1 Work Phone: [facility] 11-09-2024 09:07-0500 Systolic blood pressure 136 mm[Hg] Pac 1 Work Phone: [facility] 10-27-2024 13:35-0500 Body height 157.5 cm Mayank Sheehan MD Work Phone: [facility] 10-27-2024 13:35-0500 Body mass index (BMI) [Ratio] 28.93 kg/m2 Mayank Sheehan MD Work Phone: [facility] 10-27-2024 13:35-0500 Body weight 71.76 kg Mayank Sheehan MD Work Phone: [facility] 10-27-2024 13:35-0500 Heart rate 83 /min Mayank Sheehan MD Work Phone: [facility] 10-27-2024 13:35-0500 SaO2% (BldA) [Mass fraction] 96 % Mayank Sheehan MD Work Phone: [facility] 09-28-2024 07:29-0500 Body height 157.5 cm Newton Shine MD Work Phone: [facility] 09-28-2024 07:29-0500 Body mass index (BMI) [Ratio] 28.53 kg/m2 Newton Shine MD Work Phone: [facility] 09-28-2024 07:29-0500 Body weight 70.76 kg Newton Shine MD Work Phone: [facility] 09-28-2024 07:29-0500 Diastolic blood pressure 65 mm[Hg] Newton Shine MD Work Phone: [facility] 09-28-2024 07:29-0500 Heart rate 70 /min Newton Shine MD Work Phone: [facility] 09-28-2024 07:29-0500 Respiratory rate 16 /min Newton Shine MD Work Phone: [facility] 09-28-2024 07:29-0500 SaO2% (BldA) [Mass fraction] 98 % Newton Shine MD Work Phone: [facility] 09-28-2024 07:29-0500 Systolic blood pressure 111 mm[Hg] Newton Shine MD Work Phone: [facility] 09-08-2024 08:56-0500 Body height 157.5 cm Mayank Sheehan MD Work Phone: [facility] 09-08-2024 08:56-0500 Body mass index (BMI) [Ratio] 25.97 kg/m2 Mayank Sheehan MD Work Phone: [facility] 09-08-2024 08:56-0500 Body weight 64.41 kg Mayank Sheehan MD Work Phone: [facility] 03-24-2024 15:44-0400 Body temperature 97.81 [degF] Krislyn Aberegg PA Work Phone: [facility] 03-24-2024 15:44-0400 Body weight 75 kg Krislyn Aberegg PA Work Phone: [facility] 03-24-2024 15:44-0400 Diastolic blood pressure 72 mm[Hg] Krislyn Aberegg PA Work Phone: [facility] 03-24-2024 15:44-0400 Heart rate 116 /min Krislyn Aberegg PA Work Phone: [facility] 03-24-2024 15:44-0400 Respiratory rate 20 /min Krislyn Aberegg PA Work Phone: [facility] 03-24-2024 15:44-0400 SaO2% (BldA) [Mass fraction] 97 % Krislyn Aberegg PA Work Phone: [facility] 03-24-2024 15:44-0400 Systolic blood pressure 125 mm[Hg] Sanjay GORDON Work Phone: [facility] 06-17-2020 15:36-0400 Body height 160.02 cm [facility] 06-17-2020 15:36-0400 Body mass index (BMI) [Ratio] 28.52 kg/m2 [facility] 06-17-2020 15:36-0400 Body surface area Derived from formula 1.76 m2 [facility], [facility].; [facility], [facility]. 06-17-2020 15:36-0400 Body weight 73.03 kg [facility], [facility].; [facility] 06-17-2020 15:36-0400 Diastolic blood pressure 77 mm[Hg] [facility] Comment on above: Patient Position: Sitting; Cuff Location : Left Arm; Cuff Size: Standard 06-17-2020 15:36-0400 Heart rate 102 /min [facility], Inc.; [employer] [facility], Inc[facility] Comment on above: Pattern: Regular 06-17-2020 15:36-0400 Systolic blood pressure 115 mm[Hg] [facility] Comment on above: Patient Position: Sitting; Cuff Location : Left Arm; Cuff Size: Standard 05-20-2020 15:44-0400 Body height 160.02 cm Allison Beth RN [facility] [employer].; [facility] 05-20-2020 15:44-0400 Body mass index (BMI) [Ratio] 27.81 kg/m2 Allison Beth RN [facility], Inc.; [facility] 05-20-2020 15:44-0400 Body surface area Derived from formula 1.74 m2 Allison Beth RN [facility], Inc.; [facility] 05-20-2020 15:44-0400 Body weight 71.22 kg Allison Beth RN [facility], [employer].; [facility] [employer] [facility], [facility] 05-20-2020 15:44-0400 Diastolic blood pressure 80 mm[Hg] Allison Beth RN [facility], Inc.; [facility] [employer] [facility], Inc[facility] Comment on above: Patient Position: Sitting; Cuff Location : Left Arm; Cuff Size: Large 05-20-2020 15:44-0400 Heart rate 78 /min Allison Beth RN [facility], [employer].; [facility], [employer]. Comment on above: Pattern: Regular 05-20-2020 15:44-0400 Systolic blood pressure 117 mm[Hg] Allison Beth RN [facility], Inc.; [employer] [facility] [employer] [facility], [employer]. Comment on above: Patient Position: Sitting; Cuff Location : Left Arm; Cuff Size: Large 06-17-2019 14:26-0400 Body height 160.02 cm GERRI ARDON RN [facility], Inc.; [facility] CENTERT[facility] Society [facility] [employer] [facility], Inc. 06-17-2019 14:26-0400 Body mass index (BMI) [Ratio] 31.53 kg/m2 GERRI GRATE REN [facility], Inc.; [facility], Inc. 06-17-2019 14:26-0400 Body surface area Derived from formula 1.84 m2 GERRI GRATE REN [facility], Inc.; [facility] [employer] [facility], Inc. 06-17-2019 14:26-0400 Body weight 80.74 kg GERRI GRATE REN [facility], Inc.; [facility] [employer] [facility], Inc. 06-17-2019 14:26-0400 Diastolic blood pressure 77 mm[Hg] GERRI GRATE REN [facility], Inc.; [employer] [facility] [employer] [facility], [employer]. Comment on above: Patient Position: Sitting; Cuff Location : Right Arm; Cuff Size: Large 06-17-2019 14:26-0400 Heart rate 87 /min GERRI ARDON RN [facility] [employer] [facility], Inc.; [facility] [employer] Inc. Comment on above: Pattern: Regular 06-17-2019 14:26-0400 Systolic blood pressure 127 mm[Hg] GERRIMCKINLEY ARDON REN [facility] [employer] [facility], Inc.; [facility] NATIONB[facility] [employer] Inc[employer] Inc. Comment on above: Patient Position: Sitting; Cuff Location : Right Arm; Cuff Size: Large 01-30-2019 13:37-0400 Body height 160.02 cm Allison Beth RN [facility] [employer] [facility], Inc.; [employer] [facility] [employer] Inc. 01-30-2019 13:37-0400 Body mass index (BMI) [Ratio] 31.44 kg/m2 Allison Beth RN [facility] [employer] [facility], Inc.; [employer] [facility] [employer] Inc. 01-30-2019 13:37-0400 Body surface area Derived from formula 1.84 m2 Allison Beth RN [facility] [employer] [facility], Inc.; Mov[employer] [facility] [employer] Inc. 01-30-2019 13:37-0400 Body temperature 98.1 [degF] Allison Beth RN [facility] [employer] [facility] [employer] Inc. Comment on above: Method: Oral 01-30-2019 13:37-0400 Body weight 80.51 kg Allison Beth RN [facility] [employer], Inc.; [employer] [facility] [employer] Inc. 01-30-2019 13:37-0400 Diastolic blood pressure 85 mm[Hg] Allison Beth RN [facility] [employer] Inc.; [employer], Inc. Comment on above: Patient Position: Sitting; Cuff Location : Left Arm; Cuff Size: Large 01-30-2019 13:37-0400 Heart rate 85 /min Allison Beth RN [facility] [employer], [employer], Inc. Comment on above: Pattern: Regular 01-30-2019 13:37-0400 Systolic blood pressure 145 mm[Hg] Allison Beth RN [facility] [employer].; [employer], [employer]. Comment on above: Patient Position: Sitting; Cuff Location : Left Arm; Cuff Size: Large 12-05-2018 10:35-0500 Body height 160.02 cm Allison Beth RN [facility], Inc.; [employer] [facility], Inc. 12-05-2018 10:35-0500 Body mass index (BMI) [Ratio] 32.95 kg/m2 Allison Beth RN [facility], Inc.; [facility], Inc[facility] 12-05-2018 10:35-0500 Body surface area Derived from formula 1.88 m2 Allison Beth RN [facility], Inc.; [facility], [employer]. 12-05-2018 10:35-0500 Body weight 84.37 kg Allison Beth RN [facility], Inc.; [facility], [employer]. 12-05-2018 10:35-0500 Diastolic blood pressure 83 mm[Hg] Allison Beth RN [facility], [employer].; [employer] [facility] [employer] [facility], [employer]. Comment on above: Patient Position: Sitting; Cuff Location : Left Arm; Cuff Size: Large 12-05-2018 10:35-0500 Heart rate 93 /min Allison Beth RN [facility], [employer].; [employer] [facility] [employer] [facility], Inc. Comment on above: Pattern: Regular 12-05-2018 10:35-0500 Systolic blood pressure 133 mm[Hg] Allison Beth RN [facility], [employer].; [employer] [facility] [employer] [facility], Inc. Comment on above: Patient Position: Sitting; Cuff Location : Left Arm; Cuff Size: Large 11-03-2018 16:06-0500 Body height 160.02 cm GERRI ARDON RN [facility] [employer] [facility], Inc.; [facility], [employer]. 11-03-2018 16:06-0500 Body mass index (BMI) [Ratio] 31.64 kg/m2 GERRI ARDON RN [facility], Inc.; [facility], [employer]. 11-03-2018 16:06-0500 Body surface area Derived from formula 1.84 m2 GERRI ARDON RN [facility] [employer] [facility], Inc.; [facility] [facility] [employer] [facility] [employer] [facility], Inc. 11-03-2018 16:06-0500 Body weight 81.01 kg GERRIMCKINLEY ARDON RN [facility] [employer] [facility], Inc.; [facility]WE[facility] [employer] [facility], Inc. 11-03-2018 16:06-0500 Diastolic blood pressure 78 mm[Hg] GERRI ARDON RN [facility] [employer] [facility], Inc.; [facility]WE[facility] [employer] [facility] [employer] [facility], Inc. Comment on above: Patient Position: Sitting; Cuff Location : Left Arm; Cuff Size: Standard 11-03-2018 16:06-0500 Heart rate 76 /min GERRI ARDON RN [facility] [employer] [facility], Inc.; [facility] [facility], Inc. Comment on above: Pattern: Regular 11-03-2018 16:06-0500 Systolic blood pressure 152 mm[Hg] GERRI ARDON RN [facility]burgHapt[facility], Inc.; [employer] [facility] [employer] [facility], Inc. Comment on above: Patient Position: Sitting; Cuff Location : Left Arm; Cuff Size: Standard 09-19-2018 11:06-0500 Body height 160.02 cm Andrea Barakat M/[employer] [facility], Inc.; [employer], [employer] 09-19-2018 11:06-0500 Body mass index (BMI) [Ratio] 31.53 kg/m2 Andrea Barakat Damon [facility] [employer] [facility], Inc.; [employer], Inc. 09-19-2018 11:06-0500 Body surface area Derived from formula 1.84 m2 Andrea Barakat [employer] [facility], Inc.; [employer], Inc. 09-19-2018 11:06-0500 Body temperature 98.7 [degF] Andrea Barakat [employer] Comment on above: Method: Oral 09-19-2018 11:06-0500 Body weight 80.74 kg Andrea Barakat [employer] 09-19-2018 11:06-0500 Diastolic blood pressure 72 mm[Hg] Andrea Barakat [facility], Inc.; [facility], [employer]. Comment on above: Patient Position: Sitting; Cuff Location : Right Arm; Cuff Size: Large 09-19-2018 11:06-0500 Heart rate 75 /min Andrea Barakat [facility], Inc.; [facility], Inc. Comment on above: Pattern: Regular 09-19-2018 11:06-0500 Systolic blood pressure 117 mm[Hg] Andrea Barakat [facility], Inc.; [facility] HospitalImage Engine Design. Comment on above: Patient Position: Sitting; Cuff Location : Right Arm; Cuff Size: Large 09-03-2018 16:00-0500 Body height 160.02 cm GERRI ARDON RN [facility], [facility], Inc. 09-03-2018 16:00-0500 Body mass index (BMI) [Ratio] 31.18 kg/m2 GERRI ARDON RN [facility], Inc.; [facility], Inc. 09-03-2018 16:00-0500 Body surface area Derived from formula 1.83 m2 GERRI ARDON RN [facility], Inc.; [facility], Inc. 09-03-2018 16:00-0500 Body weight 79.83 kg GERRI ARDON RN [facility], Inc.; [facility], Inc. 09-03-2018 16:00-0500 Diastolic blood pressure 68 mm[Hg] GERRI ARDON RN [facility], Inc.; [facility] Hospital[facility] [employer]. Comment on above: Patient Position: Sitting; Cuff Location : Left Arm; Cuff Size: Large 09-03-2018 16:00-0500 Heart rate 79 /min GERRI ARDON RN [facility], Inc.; [facility] [employer] [facility], Inc. Comment on above: Pattern: Regular 09-03-2018 16:00-0500 Systolic blood pressure 103 mm[Hg] GERRI ARDON RN [facility], Inc.; [facility] [employer] [facility], Inc. Comment on above: Patient Position: Sitting; Cuff Location : Left Arm; Cuff Size: Large 07-15-2018 15:48-0400 Body height 160.02 cm Andrea Barakat [employer] [facility], Inc.; [employer] 07-15-2018 15:48-0400 Body mass index (BMI) [Ratio] 30.72 kg/m2 Andrea Barakat [employer] [facility], Inc.; [facility] [employer], Inc. 07-15-2018 15:48-0400 Body surface area Derived from formula 1.82 m2 Andrea Barakat [employer] [facility], Inc.; [facility] [employer], Inc. 07-15-2018 15:48-0400 Body weight 78.65 kg Andrea Barakat [facility] [employer] [facility], Inc.; [facility] [employer], Inc. 07-15-2018 15:48-0400 Diastolic blood pressure 78 mm[Hg] Andrea Barakat [employer] [facility], Inc.; [facility] [employer], Inc. Comment on above: Patient Position: Sitting; Cuff Location : Left Arm; Cuff Size: Standard 07-15-2018 15:48-0400 Heart rate 80 /min Andrea Barakat [employer] [facility], Inc.; [employer]osticsCloudJay, Inc. Comment on above: Pattern: Regular 07-15-2018 15:48-0400 Systolic blood pressure 125 mm[Hg] Andrea Barakat [employer] [facility] [employer], [employer]. Comment on above: Patient Position: Sitting; Cuff Location : Left Arm; Cuff Size: Standard 07-07-2018 14:19-0400 Body height 160.02 cm [facility] Inc.; [employer] [facility] [employer] Inc. 07-07-2018 14:19-0400 Body mass index (BMI) [Ratio] 31 kg/m2 Aniya [employer] [facility] [employer], Inc.; [facility] [employer]awkin Inc[employer] Inc. 07-07-2018 14:19-0400 Body surface area Derived from formula 1.83 m2 Aniya [employer] Solutions[facility] Squawkin Inc., Inc.; [employer]. 07-07-2018 14:190400 Body weight 79.38 kg Aniya [facility] [facility] [employer].; [facility] [employer]. 07-07-2018 14:19-0400 Diastolic blood pressure 78 mm[Hg] Aniya [employer] [facility] [employer] [facility] [employer]. Comment on above: Patient Position: Sitting; Cuff Location : Left Arm; Cuff Size: Standard 07-07-2018 14:19-0400 Heart rate 82 /min Aniya [employer] [facility] [employer] [facility] [employer]. Comment on above: Pattern: Regular 07-07-2018 14:-0400 Systolic blood pressure 133 mm[Hg] Aniya [employer] SolutionsHistoPathway.; [employer] [facility] [employer]. Comment on above: Patient Position: Sitting; Cuff Location : Left Arm; Cuff Size: Standard Encounters Encounter Date Encounter Type Care Provider Facility Start: 08-20-2025 ambulatory Josephine ramires SCREEN PRINTING EQUIPMENT SETTER Facility:[facility] Start: 08-16-2025 ambulatory Josephine ramires SCREEN PRINTING EQUIPMENT SETTER Facility:[facility] Start: 08-04-2025 End: 08-04-2025 ambulatory Josephine Walter SCREEN PRINTING EQUIPMENT SETTER Facility:[facility] Start: 07-19-2025 End: 07-19-2025 Admission to same day surgery center Dr. Moiz Rodriguez DO -[facility] Start: 07-19-2025 End: 07-19-2025 ambulatory Josephine Walter SCREEN PRINTING EQUIPMENT SETTER-C Work Phone: -[facility] Start: 06-24-2025 End: 06-24-2025 ambulatory MAYANK SHEEHAN Facility:[id number] Start: 06-11-2025 End: 06-11-2025 Patient encounter procedure JOSEPHINE WALTER SHEET SORTER-PASSENGER AGENT [facility] Start: 06-11-2025 End: 06-11-2025 ambulatory KOBI GARSIA Facility:[facility] Start: 06-11-2025 End: 06-11-2025 Subsequent hospital visit by physician Mri Radio [facility] Wstr (I-Stat/1.5t) Work Phone: Radiology Comment on above: Spondylolisthesis of lumbar region [M43.16] Start: 06-10-2025 End: 06-11-2025 Telephone encounter Newton Shine MD Work Phone: Pain Management Comment on above: Diabetic Clearance R eceived Medication Problem Start: 06-04-2025 End: 06-04-2025 Telephone encounter Kobi Garsia PA-C Work Phone: Pain Management Comment on above: Medication Problem Start: 06-04-2025 End: 06-04-2025 ambulatory JOSEPHINE WALTER APRN-PASSENGER AGENT Facility:[facility] Start: 06-04-2025 End: 06-04-2025 Patient encounter procedure JOSEPHINE WALTER SHEET SORTER-PASSENGER AGENT [facility] Start: 06-01-2025 End: 06-01-2025 Telephone encounter Kobi Garsia PA-C Work Phone: Pain Management Comment on above: Medication Problem Start: 05-26-2025 End: 05-27-2025 Telephone encounter Newton Shine MD Work Phone: [facility] Start: 05-24-2025 End: 05-28-2025 ambulatory JOSEPHINE WALTER APRN-PASSENGER AGENT Facility:[facility] Start: 05-24-2025 End: 05-28-2025 Outreach Lab JOSEPHINE WALTER APRN-PASSENGER AGENT [facility] Start: 05-20-2025 End: 05-20-2025 ambulatory NEWTON SHINE Facility:[id number] Start: 05-19-2025 End: 05-20-2025 Telephone encounter Newton [...] Start: 04-27-2025 End: 04-27-2025 ambulatory JOSEPHINE WALTER APRN-PASSENGER AGENT Facility:[facility] Start: 04-27-2025 End: 04-27-2025 Patient encounter procedure JOSEPHINE WALTER APRN-PASSENGER AGENT [facility] Start: 04-01-2025 End: 04-01-2025 Patient encounter procedure Susanne CHOC [facility] Work Phone: Start: 04-01-2025 End: 04-01-2025 ambulatory Josephine Walter SCREEN PRINTING EQUIPMENT SETTER-C Work Phone: [facility] Start: 03-25-2025 End: 03-25-2025 Patient encounter procedure Mayank Sheehan MD Work Phone: [facility] Comment on above: Status post cervical spinal fusion (Primary Dx) Start: 03-25-2025 End: 03-25-2025 Telemedicine consultation with patient Mayank Sheehan MD Work Phone: [facility] Start: 03-25-2025 End: 03-25-2025 ambulatory MAYANK SHEEHAN Facility:[id number] Start: 03-10-2025 ambulatory JOSEPHINE WALTER Facility:[facility] Start: 03-10-2025 End: 03-10-2025 Subsequent hospital visit by physician Mri Radio [facility] Wstr (I-Stat/1.5t) Work Phone: Radiology Comment on above: Adverse effect of tr eatment, initial encounter [T88.9XXA] Start: 03-08-2025 End: 03-10-2025 Refill Kobi Garsia PA-C Work Phone: Pain Management Comment on above: Refill Request Start: 03-04-2025 Non-patient / Non-visit Dr. Alejandro benavides MD -[facility] Start: 03-04-2025 End: 03-04-2025 ambulatory Josephine Walter SCREEN PRINTING EQUIPMENT SETTER-C Work Phone: [facility] Work Phone: Start: 03-04-2025 End: 03-04-2025 Patient encounter procedure Marlee Araujo PA -[facility] Work Phone: Start: 03-03-2025 End: 03-04-2025 ambulatory Valente Hernandez PT Work Phone: [facility] Comment on above: Chronic right should er pain (Primary Dx); S/P cervical spinal fusion Start: 02-26-2025 End: 02-26-2025 ambulatory Sara Wiseman PT Work Phone: [facility] Comment on above: Chronic right should er pain (Primary Dx); S/P cervical spinal fusion Start: 02-23-2025 End: 02-23-2025 Patient encounter procedure Mayank Sheehan MD Work Phone: [facility] Comment on above: Status post cervical spinal fusion (Primary Dx); Cervical myelopathy (HCC); 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 Start: 02-18-2025 End: 02-18-2025 ambulatory MAYANK SHEEHAN Facility:[facility] Start: 02-16-2025 End: 02-16-2025 Office outpatient visit 25 minutes oKbi Garsia PA-C Work Phone: Pain Management Comment on above: Chronic right should er pain (Primary Dx); Cervical spondylosis with myelopathy; Myofascial pain; Adhesive capsulitis of right shoulder; Lumbosacral spondylosis without myelopathy Start: 02-16-2025 End: 02-16-2025 ambulatory KOBI GARSIA Facility:[id number] Start: 02-15-2025 End: 02-15-2025 ambulatory Manuela Liang CLAIMS ADJUSTER SUPERVISOR Work Phone: [facility] Comment on above: Chronic right should er pain (Primary Dx); S/P cervical spinal fusion Start: 02-11-2025 End: 02-11-2025 ambulatory Manuela Kascj CLAIMS ADJUSTER SUPERVISOR Work Phone: [facility] Comment on above: Chronic right should er pain (Primary Dx); S/P cervical spinal fusion Start: 02-04-2025 End: 02-04-2025 ambulatory Sara Wiseman PT Work Phone: [facility] Comment on above: Chronic right should er pain (Primary Dx); S/P cervical spinal fusion Start: 02-03-2025 End: 04-22-2025 Telephone encounter Claudia Washington PSS MR IMAGING Comment on above: Release Of Medical R ecords (Imaging) Start: 02-02-2025 End: 02-02-2025 Telephone encounter Mayank Sheehan MD Work Phone: [facility] Start: 02-02-2025 End: 02-02-2025 ambulatory Manuela Liang CLAIMS ADJUSTER SUPERVISOR Work Phone: [facility] Comment on above: Chronic right should er pain (Primary Dx); S/P cervical spinal fusion Start: 01-29-2025 End: 01-29-2025 Telephone encounter Newton Shine MD Work Phone: Pain Management Comment on above: Patient Update (Pt n ot wanting to leave [facility] PM) Patient Update; Retu rning Patient's Call (Patient post injection concern) Start: 01-28-2025 End: 01-28-2025 Telephone encounter Phillip Pineda LEDESMAPASSENGER AGENT Work Phone: [facility] Comment on above: New Patient Evaluati on Start: 01-28-2025 End: 01-28-2025 ambulatory Sara Wiseman PT Work Phone: [facility] Comment on above: Chronic right should er pain (Primary Dx); S/P cervical spinal fusion Start: 01-27-2025 End: 01-27-[address] Andrew Maldonado MD -[facility] Work Phone: Start: 01-27-2025 End: 01-27-2025 ambulatory Andrew Maldonado Facility:[facility] Start: 01-26-2025 End: 01-26-2025 Patient encounter procedure Marlee Overton MD Work Phone: [facility] Comment on above: Traumatic tear of ri ght rotator cuff, unspecified tear extent, initial encounter (Primary Dx); Adhesive capsulitis of right shoulder Start: 01-26-2025 End: 01-26-2025 ambulatory JOSEPHINE WALTER Facility:[facility] Start: 01-25-2025 End: 01-25-2025 ambulatory MAYANK SHEHEAN Facility:[facility] Start: 01-21-2025 ambulatory MARLEE OVERTON Facility :[facility] Start: 01-19-2025 End: 01-19-2025 Brandin Sheehan MD Work Phone: [facility] Comment on above: Med Change Request Start: 01-19-2025 End: 01-19-2025 Patient encounter procedure Marlee Overton MD Work Phone: [facility] Comment on above: Left shoulder pain, unspecified chronicity (Primary Dx); Traumatic tear of right rotator cuff, unspecified tear extent, initial encounter Start: 01-19-2025 End: 01-19-2025 ambulatory JOSEPHINE WALTER Facility:[facility] Start: 01-13-2025 End: 01-13-2025 ambulatory Sara Wiseman PT Work Phone: [facility] Comment on above: Status post cervical spinal fusion; Chronic right shoulder pain Start: 01-12-2025 End: 01-12-2025 Patient encounter procedure Mayank Sheehan MD Work Phone: [facility] Comment on above: Status post cervical spinal fusion (Primary Dx); Chronic right shoulder pain Start: 01-12-2025 End: 01-12-2025 Subsequent hospital visit by physician [facility] Comment on above: Status post cervical spinal fusion [Z98.1] Start: 01-12-2025 End: 01-12-2025 ambulatory MAYANK T CONRY Facility:[id number] Start: 01-12-2025 ambulatory AMYANK T CONRY Facility :[id number] Start: 01-12-2025 End: 01-12-2025 Subsequent hospital visit by physician [facility] Comment on above: S/P cervical spinal fusion [Z98.1] Start: 01-07-2025 End: 01-07-2025 ambulatory JOSEPHINE WALTER Facility:[facility] Start: 01-06-2025 End: 01-07-2025 Telephone encounter Mayank Sheehan MD Work Phone: [facility] Comment on above: Patient Question Start: 12-15-2024 End: 12-15-2024 Patient encounter procedure Mayank Sheehan MD Work Phone: [facility] Comment on above: Status post cervical spinal fusion (Primary Dx); Cervical myelopathy (HCC) Start: 12-15-2024 End: 12-15-2024 ambulatory MAYANK SHEEHAN Facility:[id number] Start: 12-15-2024 End: 12-15-2024 Subsequent hospital visit by physician Xr [facility] Comment on above: S/P cervical spinal fusion [Z98.1] Start: 12-09-2024 End: 12-09-2024 Telephone encounter Mayank Sheehan MD Work Phone: [facility] Comment on above: Refill Request Start: 12-07-2024 End: 12-08-2024 Refill Newton Shine MD Work Phone: Pain Management Comment on above: Refill Request Start: 12-02-2024 Patient encounter status Newton Shine MD Work Phone: [facility] Work Phone: Start: 11-25-2024 End: 11-25-2024 Telephone encounter Mayank Sheehan MD Work Phone: [facility] Comment on above: Preparations For Rafa noel (Medical clearance) Start: 11-24-2024 End: 11-24-2024 Telephone encounter Mayank Sheehan MD Work Phone: [facility] Comment on above: Preparations For Rafa noel Start: 11-17-2024 End: 11-17-2024 Patient encounter procedure Marlee GORDON -[facility] Work Phone: Start: 11-17-2024 End: 11-17-2024 ambulatory Josephine Walter NP Facility:[facility] Start: 11-13-2024 End: 11-13-2024 Telephone encounter Rene Day APRN.PASSENGER AGENT Work Phone: Pain Management Start: 11-09-2024 End: 11-09-2024 Office outpatient new 45 minutes [place] [address] Work Phone: Pre Anesthesia Comment on above: Preop testing (Prima ry Dx); Postprocedural hypoinsulinemia; Unspecified abnormalities of breathing; Cervical myelopathy (HCC); Spinal stenosis, cervical region; Type 2 diabetes mellitus without complication, without long-term current use of insulin (HCC); Gastroesophageal reflux disease, unspecified whether esophagitis present; Dysphagia, unspecified type; Unilateral vocal cord paralysis; Coronary artery disease involving [place] coronary artery of [place] heart without angina pectoris; PAD (peripheral artery disease) (HCC); Hypertension, unspecified type; Hyperlipidemia, unspecified hyperlipidemia type Start: 11-09-2024 End: 11-09-2024 Patient encounter status [facility] 1 Work Phone: [facility] Work Phone: Start: 11-09-2024 End: 11-09-2024 ambulatory JOSEPHINE WALTER Facility:[id number] Start: 11-09-2024 Encounter for other preprocedural examination JOSEPHINE [facility] Start: 11-04-2024 End: 11-12-2024 Telephone encounter Yoly Parr RN Pre Anesthesia Comment on above: Appointment (No show ) Start: 11-04-2024 End: 11-04-2024 ambulatory MAYANK SHEEHAN Facility:[facility] Start: 11-02-2024 End: 11-02-2024 ambulatory Josephine Walter NP Facility:[facility] Start: 10-30-2024 End: 10-30-2024 Telephone encounter Mayank Sheehan MD Work Phone: [facility] Comment on above: Preparations For Rafa noel Start: 10-28-2024 End: 10-28-2024 Telephone encounter Mayank Sheehan MD Work Phone: [facility] Start: 10-27-2024 End: 10-27-2024 Patient encounter procedure Mayank Sheehan MD Work Phone: [facility] Comment on above: Cervical myelopathy (HCC) (Primary Dx); 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; Spinal stenosis of cervical region Start: 10-27-2024 End: 10-27-2024 ambulatory MAYANK SHEEHAN Facility:[id number] Start: 10-20-2024 End: 10-20-2024 ambulatory MAYANK ABEBEDIDIER Facility:[facility] Start: 10-20-2024 End: 10-20-2024 Subsequent hospital visit by physician Dionna [facility] W[facility] (I-Stat) Work Phone: Cat Scan Comment on above: Spinal stenosis of c ervical region [M48.02] Start: 10-19-2024 ambulatory Varinder Rendon Facility:[facility] Start: 10-17-2024 End: 10-17-2024 ambulatory Varinder [facility] Facility:[facility] Start: 10-14-2024 End: 10-15-2024 ambulatory [facility] Facility:[facility] Start: 10-13-2024 End: 10-14-2024 [facility] Start: 10-09-2024 End: 10-09-2024 Patient encounter procedure Mayank Sheehan MD Work Phone: [facility] Comment on above: Cervical myelopathy (HCC) (Primary Dx); 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; Spinal stenosis of cervical region Start: 10-09-2024 End: 10-09-2024 Telemedicine consultation with patient Mayank Sheehan MD Work Phone: [facility] Start: 10-09-2024 End: 10-09-2024 ambulatory MAYANK SHEEHAN Facility:[id number] Start: 10-01-2024 End: 10-05-2024 Admission to same day surgery center Newton Shine MD Work Phone: Pain Management Comment on above: Re: Injections/Surge ry Start: 10-01-2024 End: 10-05-2024 E-mail encounter from caregiver Newton Shine MD Work Phone: Pain Management Start: 10-01-2024 End: 10-01-2024 ambulatory Varinder Rendon Facility:[facility] Start: 10-01-2024 End: 10-01-2024 ambulatory Varinder [facility] Facility:[facility] Start: 09-28-2024 End: 09-28-2024 Office outpatient new 45 minutes Newton Shine MD Work Phone: Pain Management Comment on above: Lumbosacral spondylo sis without myelopathy (Primary Dx); Cervical spondylosis with myelopathy Start: 09-28-2024 End: 09-28-2024 ambulatory NEWTON SHINE Facility:[id number] Start: 09-21-2024 End: 09-21-2024 ambulatory MAYANK SHEEHAN Facility:[facility] Start: 09-21-2024 End: 09-21-2024 Subsequent hospital visit by physician Mri Radio [facility] Wstr (I-Stat/1.5t) Work Phone: Radiology Comment on above: Spinal stenosis of c ervical region [M48.02] Start: 09-21-2024 End: 09-21-2024 ambulatory Eric Casey Facility:[facility] Start: 09-16-2024 End: 09-16-2024 ambulatory Josephine Walter NP Facility:[facility] Start: 09-11-2024 End: 09-11-2024 Telephone encounter Mayank Sheehan MD Work Phone: [facility] Comment on above: Patient Update Start: 09-08-2024 End: 09-08-2024 Subsequent hospital visit by physician Xr [facility] Comment on above: Cervical myelopathy (HCC) [G95.9] Start: 09-08-2024 End: 09-08-2024 Patient encounter procedure Mayank Sheehan MD Work Phone: [facility] Comment on above: Cervical myelopathy (HCC) (Primary Dx); Spinal stenosis of lumbar region with neurogenic claudication; Spinal stenosis of cervical region Start: 09-08-2024 End: 09-08-2024 ambulatory MAYANK SHEEHAN Facility:[id number] Start: 09-04-2024 End: 09-04-2024 ambulatory MAYANK ABEBEDIDIER Facility:[facility] Start: 09-04-2024 End: 09-04-2024 Subsequent hospital visit by physician Xr [facility] Vickie Work Phone: Radiology Comment on above: Low back pain, unspe cified back pain laterality, unspecified chronicity, unspecified whether sciatica present [M54.50] Start: 09-03-2024 End: 09-03-2024 Telephone encounter Mayank Sheehan MD Work Phone: [facility] Comment on above: Appointment Start: 09-02-2024 ambulatory Alejandro Mariano Facility:[facility] Start: 09-02-2024 End: 09-02-2024 ambulatory [facility] Facility:[facility] Start: 08-23-2024 End: 08-23-2024 Emergency department patient visit JOSEPHINE WALTER Facility:[id number] Start: 08-19-2024 ambulatory Varinder Rendon Facility:[facility] Start: 08-19-2024 End: 08-19-2024 ambulatory Andrew Maldonado Facility:[facility] Start: 07-22-2024 End: 07-22-2024 ambulatory JOSEPHINE WALTER SHEET SORTER-PASSENGER AGENT Facility:[facility] Start: 07-22-2024 End: 07-22-2024 Patient encounter procedure JOSEPHINE WALTER SHEET SORTER-PASSENGER AGENT [facility] Start: 06-03-2024 ambulatory JOSEPHINE WALTER Facil ity:[facility] Start: 06-03-2024 End: 06-07-2024 Outreach Lab JOSEPHINE WALTER SHEET SORTER-PASSENGER AGENT [facility] Start: 05-13-2024 ambulatory VARSHA MALONE MD Faci lity:[facility] Start: 04-01-2024 ambulatory VARSHA MALONE MD Faci lity:[facility] Start: 03-24-2024 End: 03-24-2024 Patient encounter procedure Sanjay GORDON Work Phone: [facility] Comment on above: Procedure not raven d out (Primary Dx) Start: 03-16-2024 End: 03-20-2024 ambulatory JOSEPHINE WALTER Facility:[facility] Start: 03-16-2024 End: 03-20-2024 Outreach Lab JOSEPHINE WALTER SHEET SORTER-PASSENGER AGENT [facility] Start: 08-22-2023 End: 08-22-2023 Emergency department patient visit Physician [facility] Start: 10-24-2021 End: 10-24-2021 Medication Refill/Order Lazara DAMON MD Work Phone: [employer] Start: 07-27-2020 End: 07-27-2020 Medication Refill/Order Lazara DAMON MD Work Phone: [place] [employer] Start: 07-04-2020 End: 07-05-2020 Medication Refill/Order Lazara DAMON MD Work Phone: [employer] [facility] [employer] Start: 06-17-2020 End: 06-17-2020 Historical Summary Lazara DAMON MD Work Phone: [employer] [facility] [employer]. Start: 06-17-2020 End: 06-17-2020 Office outpatient visit 25 minutes Lazara DAMON MD Work Phone: [employer] Start: 05-21-2020 End: 05-21-2020 Patient encounter procedure [facility] Start: 05-20-2020 End: 05-20-2020 Office outpatient visit 25 minutes Lazara DAMON MD Work Phone: [employer] [employer] [facility] [employer]. Start: 08-03-2019 End: 08-03-2019 Lab Only Lazara DAMON MD Work Phone: [facility] [employer] Start: 06-23-2019 End: 06-23-2019 Historical Summary Lazara DAMON MD Work Phone: [facility] [employer] Start: 06-18-2019 End: 06-19-2019 Results Review Lazara DAMON MD Work Phone: [place] [employer] [facility] [employer] Start: 06-17-2019 End: 06-17-2019 Patient encounter procedure ALEJANDRO DAMON [facility] Start: 06-17-2019 End: 06-17-2019 Medication Refill/Order Lazara DAMON MD Work Phone: [employer]. Start: 06-17-2019 End: 06-17-2019 Office outpatient visit 25 minutes Lazara DAMON MD Work Phone: [employer]. Start: 05-20-2019 End: 05-20-2019 Results Review Lazara DAMON MD Work Phone: [employer]. Start: 04-30-2019 End: 04-30-2019 Historical Summary Lazara DAMON MD Work Phone: [employer] Start: 04-27-2019 End: 04-27-2019 Lab Only Lazara DAMON MD Work Phone: [facility] [employer] Start: 04-27-2019 End: 04-27-2019 Medication Refill/Order Lazara DAMON MD Work Phone: [employer]. Start: 01-30-2019 End: 01-30-2019 Office outpatient visit 25 minutes Lazara DAMON MD Work Phone: [employer]. Start: 12-05-2018 End: 12-05-2018 Office outpatient visit 25 minutes Lazara DAMON MD Work Phone: [employer]. Start: 11-26-2018 End: 11-26-2018 Lab Only Lazara DAMON MD Work Phone: [employer]. Start: 11-03-2018 End: 11-03-2018 Medication Refill/Order Lazara DAMON MD Work Phone: [employer]. Start: 11-03-2018 End: 11-03-2018 Office outpatient visit 15 minutes Lazara DAMON MD Work Phone: [facility] [employer] Start: 09-19-2018 End: 09-19-2018 Office outpatient visit 15 minutes Lazara DAMON MD Work Phone: [facility] [employer] Start: 09-05-2018 End: 09-05-2018 Medication Refill/Order Lazara DAMON MD Work Phone: [employer] [place] [employer] Start: 09-03-2018 End: 09-04-2018 Results Review Lazara DAMON MD Work Phone: [employer] [employer] Start: 09-03-2018 End: 09-03-2018 Office outpatient visit 25 minutes Lazara DAMON MD Work Phone: [employer] [place] [employer] Start: 08-13-2018 End: 08-13-2018 Historical Summary Lazara DAMON MD Work Phone: [employer] [place] [employer] Start: 07-15-2018 End: 07-15-2018 Office outpatient visit 25 minutes Lazara DAMON MD Work Phone: [employer] Start: 07-07-2018 End: 07-07-2018 Medication Refill/Order Lazara DAMON MD Work Phone: [employer] Start: 07-07-2018 End: 07-07-2018 Office outpatient visit 25 minutes Lazara DAMON MD Work Phone: [employer] Start: 07-07-2018 End: 07-07-2018 Historical Summary Lazara DAMON MD Work Phone: [employer] Procedures Date Procedure Procedure Detail Performing Clinician [...] Work Phone: Start: 11-04-2024 Antibody screen MAYANK SHEEHNA Comment on above: Order Comment: Speci men Type: BLOOD SPECIMENOrdering Facility: [facility] Address: [address] [place] [address] Performed By: #### T [id number] ####CC MAIN BLOOD BANKCLIA [id number] [address] OF [place] Start: 10-20-2024 Ct cervical spine w/ o contrast material Mayank Sheehan MD Work Phone: Start: 09-21-2024 Mri spinal canal cer vical w/o contrast samuel Sheehan MD Work Phone: Start: 09-02-2024 Angiography JOSEPHINE WALTER APRN-PASSENGER AGENT Comment on above: had a stent placed i n iliac artery Start: 09-02-2024 Iliac artery stent NANDO WALTER APRN-PASSENGER AGENT Start: 06-17-2020 End: 06-17-2020 Collj & interpj [...] bypa ss grafts x 3 JOSEPHINE WALTER SHEET SORTERSensoraide Comment on above: 3-vessel coronary ar edwina bypass grafting using left internal mammary artery to the left anterior descending coronary artery with reverse saphenous vein, aortocoronary sequential graft [id number] to the posterior descending coronary artery and end-to-side to the distal obtuse marginal coronary artery. Start: 05-27-2020 Cardiac catheterization JOSEPHINE JOSE ANGEL SHEET [employer] Comment on above: SUMMARY: 1. Left ventricle: [...] 04-28-2020 Cardiovascular stres s testing JOSEPHINE WALTER [employer] Start: 11-16-2019 Lipid 1996 panel - S bronson or Plasma Sanjay GORDON Work Phone: Start: 09-08-2019 End: 09-08-2019 Percutaneous transluminal coronary angioplasty JAYESH JOSE ANGEL Comment on above: stent x1 (in [facility] ) Start: 12-10-2019 Stented coronary art tasha (finding) JOSEPHINE WALTER SHEET SORTER-PASSENGER AGENT Start: 06-17-2019 Urinalysis ALEJANDRO Madsen Comment on above: Result Comment: URIN ALYSIS Performed By: #### 2 [id number] #### [facility] [place] [address] Start: 06-17-2019 End: 06-17-2019 Collj & interpj [...] Gallbladder structur e (body structure) JOSEPHINE WALTER SHEET SORTER-PASSENGER AGENT H/O: surgery H/O neck surgery Josephine douglas SCREEN PRINTING EQUIPMENT SETTER-C Work Phone: Comment on above: 11/2024 History of coronary artery bypass grafting Hx of CABG Josephine Walter SCREEN PRINTING EQUIPMENT SETTER-C Work Phone: Comment on above: 06/01/2020 left fashion styling intern al mammary artery to the left anterior descending coronary artery with reverse saphenous vein, aortocoronary sequential graft [id number] to the posterior descending coronary artery and end-to-side to the distal obtuse marginal coronary artery History of coronary artery bypass grafting Hx of CABG Dr. Andrew Maldonado MD History of coronary artery bypass grafting Hx of CABG Susanne Rabago SCREEN PRINTING EQUIPMENT SETTER-C History of coronary artery bypass grafting Hx of CABG JOSEPHINE WALTER SHEET SORTER-PASSENGER AGENT Hysterectomy JOSEPHINE SOLIS SHEET SORTER-PASSENGER AGENT Knee meniscus repair JAYESH WALTER Comment on above: Left. about 2000. Neck structure (body structure) JOSEPHINE WALTER SHEET SORTER-PASSENGER AGENT Total hysterectomy JAYESH DOUGLAS Comment on above: uncertain dates, not for cancer. Plan of Treatment Date Care Activity Detail Author Start: 11-09-2027 Diabetes Screening Diabetes Screening [facility] Start: 11-04-2027 Diabetes Screening Diabetes Screening [facility] Start: 02-16-2026 BP Controlled (<130/80) BP Controlled (<130/80) [facility]ic Start: 01-07-2026 Hepatitis B screening Urine Albumin:Creatinine Ratio [facility] Start: 01-07-2026 Hepatitis B surface antibody level LDL Cholesterol [facility] Start: 11-25-2025 End: 11-25-2025 Patient encounter procedure 11/25/2025 8:30 AM EST Office Visit [facility] [address] [address] Mayank Sheehan MD [address] [place] [address] 9 month follow up [facility] Comment on above: 9 month follow up Start: 08-19-2025 End: 08-19-2025 Patient encounter procedure 08/19/2025 10:00 AM EST Office Visit Pain Management [address] [place] [address] Kobi Garsia PA-C [address] [place] [address] Follow Up Pain Management Comment on above: Follow Up Start: 08-04-2025 Polysomnography [facility] Start: 08-04-2025 End: 08-04-2025 Patient encounter procedure [facility] Work Phone: Start: 07-29-2025 End: 07-29-2025 Admission to same day surgery center [facility] Comment on above: LUMBAR EPIDURAL BLOCK W/INJECTION NON NE UROLYTIC W/IMAGE GUIDANCE L5-S1 Start: 07-29-2025 End: 07-29-2025 Njx dx/ther sbst intrlmnr lmbr/sac w/img gdn LUMBAR EPIDURAL BLOCK W/INJECTION NON NEUROLYTIC W/IMAGE GUIDANCE Lumbosacral spondylosis with radiculopathy 07/29/2025 8:00 AM EDT MR PAIN Start: 07-29-2025 Subsequent hospital visit by physician 07/29/2025 8:00 AM EDT Hospital Encounter [facility] [address] [facility] [place] [address] Newton Shine MD [address] [facility] [place] [address] Lumbosacral spondylosis with radiculopathy [M47.27] [facility] Comment on above: Lumbosacral spondylosis with radiculopat hy [M47.27] Start: 07-19-2025 Anchoring of tendon of biceps REPAIR BICEPS TENDON [facility] Start: 07-19-2025 Anes arthrs humeral h/n strnclav & shoulder nos ANESTH SURGERY OF SHOULDER [facility] Start: 07-19-2025 Arthroscopy of shoulder with biceps tenodesis FARRAH ARTHRS SRG RT8TR CUF RPR [facility] Start: 07-19-2025 Injection aa&/strd other peripheral nerve/branch NJX AA&/STRD OTHER PN/BRANCH [facility] Start: 07-19-2025 Surgical manipulation of shoulder joint MNPJ ANES FARRAH JT FIXJ APRATS [facility] Start: 07-19-2025 Application of ice collar, cap or bag [facility] Start: 07-19-2025 Catheterization of vein [facility] Start: 07-19-2025 Following clinical pathway protocol [facility] Start: 07-19-2025 Patient discharge [facility] Start: 07-19-2025 Procedure discontinued [facility] Start: 07-19-2025 Taking patient vital signs [facility] Start: 07-19-2025 Vital signs measurements [facility] Start: 07-19-2025 [facility] Start: 07-19-2025 Medication education [facility] Start: 06-11-2025 End: 06-11-2025 Patient encounter procedure 06/11/2025 8:00 AM EDT Appointment Radiology [address] [place] [address] Spondylolisthesis of lumbar region [M43.16] MRI LUMBAR SPINE WO [facility] Radiology Comment on above: Spondylolisthesis of lumbar region [M43. 16] MRI LUMBAR SPINE WO [facility] Start: 05-31-2025 Influenza vaccination [facility] Start: 05-20-2025 End: 05-20-2025 Admission to [...] Office Visit Pain Management [address] [place] [address] Kobi Garsia PA-C [address] [place] [address] 3 month follow up Pain Management Comment on above: 3 month follow up Start: 05-09-2025 Hemoglobin A1c measurement HbA1C [facility] Start: 04-08-2025 Hemoglobin A1c measurement HbA1C [facility] Start: 03-25-2025 End: 03-25-2025 Patient encounter procedure 03/25/2025 11:15 AM EDT [facility] [address] [place] [address] [place] [address] Mayank Sheehan MD [address] [facility] [address] [place] [address] results [facility] Comment on above: MRI CT results Start: 03-25-2025 End: 03-25-2025 ambulatory 03/25/2025 9:15 AM EDT OT/PT/Speech Visit [facility] Physical Therapy [address] [facility] [place] [address] Sara Wiseman, PT [address] [place] [address] Z98.1 (ICD-10-CM) - Status post cervical spinal fusion [facility] Comment on above: Z98.1 (ICD-10-CM) - Status post cervical spinal fusion Start: 03-22-2025 End: 03-22-2025 ambulatory 03/22/2025 9:00 AM EDT OT/PT/Speech Visit [facility] [address] [facility] [place] [address] Valente Hernandez, PT [address] [facility] [place] [address] Z98.1 (ICD-10-CM) - Status post cervical spinal fusion [facility] Comment on above: Z98.1 (ICD-10-CM) - Status post cervical spinal fusion Start: 03-19-2025 End: 03-19-2025 ambulatory 03/19/2025 11:15 AM EDT OT/PT/Speech Visit [facility] [address] [place] [address] Nisreen Wisemannt, PT [address] [place] [address] Z98.1 (ICD-10-CM) - Status post cervical spinal fusion [facility] Comment on above: Z98.1 (ICD-10-CM) - Status post cervical spinal fusion Start: 03-15-2025 End: 03-15-2025 Patient encounter procedure 03/15/2025 4:00 PM EDT Office Visit Pain Management [address] [place] [address] Newton Shine MD [address] [place] [address] follow up Pain Management Comment on above: follow up Start: 03-15-2025 End: 03-15-2025 ambulatory 03/15/2025 11:30 AM EDT OT/PT/Speech Visit [facility] [address] [place] [address] Valente Hernandez, PT [address] [place] [address] Z98.1 (ICD-10-CM) - Status post cervical spinal fusion [facility] Comment on above: Z98.1 (ICD-10-CM) - Status post cervical spinal fusion Start: 03-11-2025 End: 03-11-2025 ambulatory 03/11/2025 8:00 AM EDT OT/PT/Speech Visit [facility] [address] [place] [address] Manuela Liang, CLAIMS ADJUSTER SUPERVISOR [address] [place] [address] Z98.1 (ICD-10-CM) - Status post cervical spinal fusion [facility] Comment on above: Z98.1 (ICD-10-CM) - Status post cervical spinal fusion Start: 03-10-2025 End: 03-10-2025 Patient encounter procedure Radiology Comment on above: MRI Cervial WO ICVOn CT Cervial Start: 03-09-2025 End: 03-09-2025 Patient encounter procedure 03/09/2025 2:45 PM EDT Office Visit [facility] [address] [place] [address] Marlee Overton MD [address] [phone] rt shoulder [facility] Comment on above: rt shoulder Start: 03-08-2025 End: 03-08-2025 ambulatory 03/08/2025 9:00 AM EDT OT/PT/Speech Visit [facility] [address] [facility] [place] [address] Valente Hernandez, PT [address] [place] [address] Z98.1 (ICD-10-CM) - Status post cervical spinal fusion [facility] Comment on above: Z98.1 (ICD-10-CM) - Status post cervical spinal fusion Start: 03-03-2025 End: 03-03-2025 ambulatory 03/03/2025 7:45 AM EDT OT/PT/Speech Visit [facility] [address] [place] [address] Valente Hernandez, PT [address] [facility] [place] [facility] [place] [address] Z98.1 (ICD-10-CM) - Status post cervical spinal fusion [facility] Comment on above: Z98.1 (ICD-10-CM) - Status post cervical spinal fusion Start: 02-26-2025 End: 02-26-2025 ambulatory 02/26/2025 10:30 AM EDT OT/PT/Speech Visit [facility] [address] [place] [address] Sara Wiseman, PT [address] [place] [address] Status post cervical spinal fusion [Z98.1] [facility] Comment on above: Status post cervical spinal fusion [Z98. 1] Start: 02-25-2025 End: 02-25-2025 ambulatory 02/25/2025 9:15 AM EDT OT/PT/Speech Visit [facility] [address] [place] [address] Sara Wiseman, PT [address] [place] [address] Status post cervical spinal fusion [Z98.1] [facility] Comment on above: Status post cervical spinal fusion [Z98. 1] Start: 02-23-2025 End: 02-23-2025 Patient encounter procedure 02/23/2025 9:30 AM EDT Office Visit [facility] [address] [place] [address] Mayank Sheehan MD [address] [place] [phone] POSTOP C4-6 PSF, C5 laminectomy 6-week FU [facility] Comment on above: POSTOP C4-6 PSF, C5 laminectomy 6-week F U Start: 02-18-2025 End: 02-18-2025 ambulatory 02/18/2025 10:00 AM EDT OT/PT/Speech Visit [facility] [address] [place] [address] Sara Wiseman, PT [address] [place] [address] Status post cervical spinal fusion [Z98.1] [facility] Comment on above: Status post cervical spinal fusion [Z98. 1] Start: 02-16-2025 End: 02-16-2025 Patient encounter procedure 02/16/2025 8:30 AM EDT Office Visit Pain Management [address] [place] [address] Kobi Garsia PA-C [address] [place] [address] follow up Pain Management Comment on above: follow up Start: 02-15-2025 End: 02-15-2025 ambulatory 02/15/2025 8:45 AM EDT OT/PT/Speech Visit [facility] [address] [place] [address] Manuela Liang, CLAIMS ADJUSTER SUPERVISOR [address] [place] [address] Status post cervical spinal fusion [Z98.1] [facility] Comment on above: Status post cervical spinal fusion [Z98. 1] Start: 02-11-2025 End: 02-11-2025 ambulatory 02/11/2025 8:45 AM EDT OT/PT/Speech Visit [facility] [address] [place] [address] Manuela Liang, CLAIMS ADJUSTER SUPERVISOR [address] [place] [address] Status post cervical spinal fusion [Z98.1] [facility] Comment on above: Status post cervical spinal fusion [Z98. 1] Start: 02-09-2025 End: 02-09-2025 ambulatory 02/09/2025 9:30 AM EDT OT/PT/Speech Visit [facility] [address] [place] [address] Manuela Liang, CLAIMS ADJUSTER SUPERVISOR [address] [place] [address] Status post cervical spinal fusion [Z98.1] [facility] Comment on above: Status post cervical spinal fusion [Z98. 1] Start: 02-04-2025 End: 02-04-2025 ambulatory 02/04/2025 10:00 AM EDT OT/PT/Speech Visit [facility] [address] [place] [address] Sara Wiseman, PT [address] [place] [address] Status post cervical spinal fusion [Z98.1] [facility] Comment on above: Status post cervical spinal fusion [Z98. 1] Start: 02-02-2025 End: 02-02-2025 ambulatory 02/02/2025 9:30 AM EDT OT/PT/Speech Visit [facility] [address] [place] [address] Manuela Liang, CLAIMS ADJUSTER SUPERVISOR [address] [place] [address] Status post cervical spinal fusion [Z98.1] [facility] Comment on above: Status post cervical spinal fusion [Z98. 1] Start: 02-01-2025 End: 02-01-2025 Patient encounter procedure 02/01/2025 10:30 AM EDT Office Visit [facility] [address] [place] [address] Marlee Overton MD [address] [facility] [address] [place], [place] [id number] B/L shoulder pain - referred by Dr. Mayank Sheehan [facility] Comment on above: B/L shoulder pain - referred by Dr. Claudia Sheehan Start: 01-28-2025 End: 01-28-2025 ambulatory 01/28/2025 10:45 AM EDT OT/PT/Speech Visit [facility] [address] [place] [address] Sara Wiseman, PT [address] [place] [address] Status post cervical spinal fusion [Z98.1] [facility] Comment on above: Status post cervical spinal fusion [Z98. 1] Start: 01-26-2025 End: 01-26-2025 Patient encounter procedure 01/26/2025 11:00 AM EDT Office Visit [facility] [address] [place] [address] Marlee Overton MD [address] [place], [place] [phone] FU MRI R SHOULDER [facility]TH [facility] [place] Comment on above: FU MRI R SHOULDER Start: 01-25-2025 End: 01-25-2025 ambulatory 01/25/2025 11:00 AM EDT OT/PT/Speech Visit [facility] [address] [place] [address] Manuela Liang, CLAIMS ADJUSTER SUPERVISOR [address] [place] [address] Status post cervical spinal fusion [Z98.1] [facility] Comment on above: Status post cervical spinal fusion [Z98. 1] Start: 01-21-2025 Subsequent hospital visit by physician 01/21/2025 8:00 AM EDT Hospital Encounter Radiology [address] [place] [address] Traumatic tear of right rotator cuff, unspecified tear extent, initial encounter [S46.011A] Radiology Comment on above: Traumatic tear of right rotator cuff, un specified tear extent, initial encounter [S46.011A] Start: 01-13-2025 End: 01-13-2025 ambulatory 01/13/2025 9:00 AM EDT OT/PT/Speech Visit [facility] [address] [place] [address] Sara Wiseman, PT [address] [place] [address] Status post cervical spinal fusion [Z98.1] [facility] Comment on above: Status post cervical spinal fusion [Z98. 1] Start: 01-12-2025 End: 01-12-2025 Patient encounter procedure 01/12/2025 9:45 AM EDT Office Visit [facility] [address] [facility] [address] [place] [address] Mayank Sheehan MD [address] [place] [address] POSTOP C4-6 PSF, C5 laminectomy [facility] Comment on above: POSTOP C4-6 PSF, C5 laminectomy Start: 12-15-2024 End: 12-15-2024 Patient encounter procedure 12/15/2024 10:30 AM EDT Office Visit [facility] [address] [facility] [address] [place] [address] Mayank Sheehan MD [address] [place] [address] s/p C4-6 PSF, C5 laminectomy 11/30/24 [facility] Comment on above: s/p C4-6 PSF, C5 laminectomy 11/30/24 Start: 11-30-2024 End: 11-30-2024 Admission to same day surgery center 11/30/2024 2:50 PM EST - 11/30/2024 7:25 PM EST Surgery [facility] Surgery [address] [facility] [place] [address] Mayank Sheehan MD [address] [place] [address] ARTHRODESIS CERVICAL POSTERIOR, BELOW C2 1ST SINGLE LEVEL [facility] Surgery Comment on above: ARTHRODESIS CERVICAL POSTERIOR, [...] physician 11/30/2024 2:50 PM EST Hospital Encounter [facility] Surgery [address] [place] [address] [place] [address] Mayank Sheehan MD 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 [M50.322, Z98.1], Spinal stenosis in cervical region [M48.02] [facility] Surgery Comment on above: Cervical myelopathy (HCC) [...] [facility] [address] [place] [address] Rene Day APRN.PASSENGER AGENT [address] [place] [address] F/UP ON NECK AND SHOULDER PAIN Pain Management Comment on above: F/UP ON NECK AND SHOULDER PAIN Start: 11-16-2024 Lipid panel Lipid Screening [facility] Start: 11-11-2024 End: 11-11-2024 Patient encounter procedure 11/11/2024 3:30 PM EST Office Visit Pain Management [address] [place] [address] Jd Leslie APRN.PASSENGER AGENT [address] [place] [address] 6 Week Follow Up Pain Management Comment on above: 6 Week Follow Up Start: 11-09-2024 End: 02-08-2025 [address] A[address]c in Blood [facility] Work Phone: Comment on above: Expected: 11/09/2024, Expires: Start: 10-27-2024 End: 10-27-2024 Patient encounter procedure 10/27/2024 2:00 PM EST Office Visit [facility] [address] [place] [address] Mayank Sheehan MD [address] [place] [address] [place] [address] Results of cervial [facility] Comment on above: CT Results of cervial Start: 10-27-2024 Urine microalbumin profile DTaP,Tdap,Td Vaccine (2 - Td or Tdap) [facility] Start: 10-20-2024 End: 10-20-2024 Patient encounter procedure 10/20/2024 8:20 AM EST Appointment Cat Scan [address] [place], [place] [id number] Cervical Spine Cat Scan Comment on above: Cervical Spine Start: 10-09-2024 Screening for malignant neoplasm of colon [facility] Start: 10-09-2024 End: 10-09-2024 Patient encounter procedure 10/09/2024 8:30 AM EST Office Visit [facility] [address] [place] [address] [address] [place] [address] Mayank Sheehan MD [address] [place] [address] MRI Results [facility] Comment on above: MRI Results Start: 09-30-2024 Medicare Advantage Annual Wellness Visit Medicare Advantage Annual Wellness Visit [facility] Start: 09-21-2024 End: 09-21-2024 Patient encounter procedure 09/21/2024 12:30 PM EST Appointment Radiology [address] [place] [address] MRI Cervical Spine WO IVCON Radiology Comment on above: MRI Cervical Spine WO IVCON Start: 09-08-2024 End: 09-08-2024 Patient encounter procedure 09/08/2024 9:00 AM EST Office Visit [facility] [address] [place] [address] [address] [place] [address] Mayank Sheehan MD [address] [place] [address] Acute on chronic lumbar pain [facility] Comment on above: Acute on chronic lumbar pain Start: 2024 RSV Vaccine (1 - Risk 60-74 years 1-dose series) RSV Vaccine (1 - Risk 60-74 years 1-dose series) [facility] Start: 05-31-2024 Covid-19 Vaccine () Covid-19 Vaccine () [facility] Start: 05-31-2024 Influenza vaccination [facility] Start: 09-30-2023 Behavioral Health Screening Behavioral Health Screening [facility] Start: 05-31-2023 Covid-19 Vaccine ( season) Covid-19 Vaccine ( season) [facility] Start: 05-28-2023 Diabetes Screening Diabetes Screening [facility] Start: 02-14-2023 Diabetes Screening Diabetes Screening [facility] Start: 11-16-2020 Hepatitis B screening Urine Albumin:Creatinine Ratio [facility] Start: 09-21-2020 Screening for malignant neoplasm of breast Mammogram Screening [facility] Start: 06-23-2019 Spmtry w/vc expiratory shanique w/wo mxml vol vntj COMPLETE PULMONARY FUNCTION TESTING (PFT) (15697) Start: 23-Jun-2019 Intent [employer]; [facility] [employer]. Start: 06-17-2019 Urinls dip stick/tablet reagnt non-auto micrscpy URINALYSIS W MICROSCOPY (30652) Start: 17-Jun-2019 15:12-04:00 Request [employer].; [employer] A[employer]. Start: 06-17-2019 Culture bacterial quanttative colony count urine URINE ALETA CULTURE-DOREEN COL COUNT ([id number]) Start: 17-Jun-2019 15:11-04:00 Request [employer].; [employer]. Start: 06-17-2019 Culture bct isol&prsmptv id isolate ea urine URINE ALETA CULTURE-ID ([id number]) Start: 17-Jun-2019 15:11-04:00 Request [employer].; [facility] [employer]. Start: 06-17-2019 Iadna neisseria gonorrhoeae amplified probe tq NEISSERIA GONORRHEA - URINE SPEC AMP and/or PROBE ([id number]) Start: 17-Jun-2019 15:11-04:00 Request [employer].; [employer]SA. Start: 06-17-2019 Iadna chlamydia trachomatis amplified probe tq CHLAMYDIA TRACHOMATIS - URINE SPEC AMP and/or PROBE ([id number]) Start: 17-Jun-2019 15:11-04:00 Request [employer].; [employer]. Start: 06-17-2019 Dilated retinal exam w/evidence of retinopathy DILATED EYE EXAMINATION PERFORMED by EYE () Start: 17-Jun-2019 Intent [facility] [employer].; [facility] [employer]. Start: 06-17-2019 Radiologic exam chest 2 views CHEST XRAY, PA & LATERAL (43484) Start: 17-Jun-2019 Intent [facility] [employer].; [facility] [employer] Start: 04-27-2019 Hemoglobin glycosylated a1c HGB A1C (60669) Start: 27-Apr-2019 14:15-04:00 Request [employer].; [facility] [employer]. Start: 12-05-2018 Patient Education KEGEL EXERCISES Indication: Pelvic floor dysfunction in female Start: 05-Dec-2018 Instruction Type: Patient Education [facility] [employer].; [facility] [employer]. Start: 11-26-2018 Hemoglobin glycosylated a1c HGB A1C (64623) Start: 26-Nov-2018 13:18-05:00 Request [employer].; [facility]. Start: 09-30-2018 Pneumococcal Vaccine: 50+ (2 of 2 - PCV) Pneumococcal Vaccine: 50+ (2 of 2 - PCV) [facility] Start: 09-19-2018 Patient Education [facility] [employer].; [facility] [employer]. Start: 09-03-2018 Lipid panel LIPID PANEL (66861) Start: 03-Sep-2018 16:30-05:00 Request [employer].; [facility] [employer]. Start: 09-03-2018 Hemoglobin glycosylated a1c HGB A1C (92805) Start: 03-Sep-2018 16:29-05:00 Request [facility] [employer].; [facility] [employer]. Start: 09-03-2018 Patient Education [facility] [employer].; [facility] [employer]. Start: 07-07-2018 Urine albumin quantitative URINARY ALBUMIN/CREATININE RATIO (57885) (43913) Start: 07-Jul-2018 15:06-04:00 Request [employer].; [facility] [employer]. Start: 07-07-2018 Basic metabolic panel calcium total BMP (88494) Start: 07-Jul-2018 15:06-04:00 Request [facility].; [facility]. Start: 07-07-2018 Hemoglobin glycosylated a1c HGB A1C (95001) Start: 07-Jul-2018 15:06-04:00 Request [facility].; [facility]. Start: 2014 Pneumococcal Vaccine: 50+ (1 of 1 - PCV) Pneumococcal Vaccine: 50+ (1 of 1 - PCV) [facility] Start: 2014 Shingrix Vaccine (1 of 2) Shingrix Vaccine (1 of 2) [facility] Start: 2009 Screening for malignant neoplasm of colon [facility] Start: 1985 Screening for malignant neoplasm of cervix Cervical Cancer Screening [facility] Start: 1983 Pneumococcal Vaccine: 50+ (1 of 2 - PCV) Pneumococcal Vaccine: 50+ (1 of 2 - PCV) [facility] Start: 1983 Urine microalbumin profile DTaP,Tdap,Td Vaccine (1 - Tdap) [facility] Start: 1982 Annual PCP Team Chronic Disease Visit Annual PCP Team Chronic Disease Visit [facility] Start: 1982 Anxiety Screening Anxiety Screening [facility] Start: 1982 BP Controlled (<130/80) BP Controlled (<130/80) [facility] inic Start: 1982 Depression Screening Depression Screening [facility] Start: 1982 Hepatitis B surface antibody level LDL Cholesterol [facility] Start: 1982 Hepatitis C screening Hepatitis C Screening [facility] Start: 1982 HIV screening HIV Screening [facility] Start: 1974 Diabetic foot examination Diabetic Foot Exam [facility] Start: 1974 Glaucoma screening Dilated Retinal Exam [facility] CT Cervical spine WO contrast CT CERVICAL SPINE WO IVCON Radiology Routine Spinal stenosis of cervical region Ordered: 10/09/2024 [facility] Work Phone: Comment on above: Ordered: 10/09/2024 End: 03-25-2026 CT Cervical spine WO contrast CT CERVICAL SPINE WO IVCON Radiology Routine Adverse effect of treatment, initial encounter 1 Occurrences starting 02/23/2025 until 03/25/2026 [facility] Work Phone: Comment on above: 1 Occurrences starting 02/23/2025 until 03/25/2026 [facility] End: 10-08-2025 MR Cervical spine WO contrast MRI CERVICAL SPINE WO IVCON Radiology Routine Spinal stenosis of cervical region 1 Occurrences starting 09/08/2024 until 10/08/2025 [facility] Work Phone: Comment on above: 1 Occurrences starting 09/08/2024 until 10/08/2025 End: 03-25-2026 MR Cervical spine WO contrast MRI CERVICAL SPINE WO IVCON Radiology Routine Adverse effect of treatment, initial encounter 1 Occurrences starting 02/23/2025 until 03/25/2026 [facility] Comment on above: 1 Occurrences starting 02/23/2025 until 03/25/2026 End: 12-04-2025 MR Lumbar spine WO contrast MRI LUMBAR SPINE WO IVCON Radiology Routine Spondylolisthesis of lumbar region 1 Occurrences starting 05/18/2025 until 12/04/2025 [facility] Work Phone: Comment on above: 1 Occurrences starting 05/18/2025 until 12/04/2025 End: 02-18-2026 MR Shoulder - right WO contrast MRI SHOULDER WO IVCON RIGHT Radiology Routine Traumatic tear of right rotator cuff, unspecified tear extent, initial encounter 1 Occurrences starting 01/19/2025 until 02/18/2026 [facility] Work Phone: Comment on above: 1 Occurrences starting 01/19/2025 until 02/18/2026 XR CERV OTHER 4V AP/LAT/FLX/EXT XR CERV OTHER 4V AP/LAT/FLX/EXT Radiology Routine Cervical myelopathy (HCC) 09/08/2024 10:03 AM EST [facility] XR Cervical spine AP and Lateral XR CERV GENERAL 2V AP/LAT Radiology Routine S/P cervical spinal fusion 12/15/2024 10:[address] [facility] Work Phone: XR Cervical spine AP and Lateral XR CERV GENERAL 2V AP/LAT Radiology Routine S/P cervical spinal fusion 01/12/2025 8:[address] [facility] Work Phone: XR Lumbar spine View s W flexion and W extension XR LUMBAR MOTION 4V AP/LAT/ FLEX/EXT Radiology Routine Low back pain, unspecified back pain laterality, unspecified chronicity, unspecified whether sciatica present 09/04/2024 8:[address] [facility] Work Phone: End: 02-11-2026 XR Shoulder - right 3 Views XR SHOULDER GENERAL 3V OR MORE AP/TRUE AP/OTHER RIGHT Radiology Routine Status post cervical spinal fusion Chronic right shoulder pain 1 Occurrences starting 01/12/2025 until 02/11/2026 [facility] Work Phone: Comment on above: 1 Occurrences starting 01/12/2025 until 02/11/2026 XR Shoulder - right 3 Views XR SHOULDER GENERAL 3V OR MORE AP/TRUE AP/OTHER RIGHT Radiology Routine Status post cervical spinal fusion Chronic right shoulder pain 01/12/2025 10:10 AM EDT [facility] Immunizations Immunization Date Immunization Notes Care Provider [facility] 07-22-2024 influenza, injectabl e, quadrivalent, contains preservative; Translations: [Fluarix PF Prefilled Syringe ] [facility] 09-09-2019 influenza virus vaccine, unspecified formulation Sanjay GORDON Work Phone: [facility] 07-15-2018 influenza, injectabl e, quadrivalent, contains preservative Lazara DAMON MD Work Phone: [facility].; [facility]. Comment on above: Site: Left DeltoidVI S Given: * Influenza - Inactivated (05/06/15) 07-15-2018 influenza virus vaccine, unspecified formulation Lazara DAMON MD Work Phone: [facility].; [facility]. Comment on above: Given 07-15-2018 unknown vaccine or immune globulin Lazara DAMON MD Work Phone: [facility].; [facility] 10-26-2014 tetanus and diphther ia toxoids, adsorbed, preservative free, for adult use (2 Lf of tetanus toxoid and 2 Lf of diphtheria toxoid) Josephine MANZANO Work Phone: [facility] Payers Date Payer Category Payer Private Health Insurance [id number] 2025 Medicare (Managed Care) 1.2. [id number] 315 2025 Unknown [id number] 2024 Medicare [id number]. [id number]. 315 2024 Medicare [id number] 2024 Self-pay [id number] 2024 Medicaid [id number]. [id number] 2024 Unknown [id number] 2024 Unknown 2024 Unknown [id number] 1965 Unknown [id number] 2.16.84 0.1.291748.3.579.2.651 1964 Unknown [id number] 2.16.84 0.1.740638.3.579.2.651 1964 Unknown [id number] 2.16.8 40.1.494273.3.579.2.627 1964 Unknown [id number] 2.16.8 40.1.397541.3.579.2.627 1964 Unknown [id number] 2.16.8 40.1.098907.3.579.2.627 1964 Unknown [id number] 2.16.8 40.1.727352.3.579.2.627 1964 Unknown [id number] 2.16. 840.1.181357.3.579.2.297 1964 Unknown [id number] 2.16. 840.1.434758.3.579.2.627 1964 Unknown [id number] 2.16. 840.1.011626.3.579.2.627 1964 Unknown [id number] 2.16. 840.1.573337.3.579.2.627 1964 Unknown [id number] 2.16. 840.1.217482.3.579.2.627 1964 Unknown [id number] 2.16.8 40.1.824465.3.579.2.627 Private Health Insurance [id number] Unknown [id number] Unknown [id number] Unknown [id number] 2.16.8 40.1.960548.3.579.2.462 Unknown [id number] 2.16.8 40.1.260867.3.579.2.462 Unknown [id number] 2.16.8 40.1.059864.3.579.2.462 Unknown [id number] 2.16.8 40.1.636690.3.579.2.462 Unknown [id number] 2.16.8 40.1.281995.3.579.2.462 Unknown [id number] 2.16.8 40.1.471395.3.579.2.462 Unknown [id number] 2.16.8 40.1.454336.3.579.2.462 Unknown [id number] 2.16.8 40.1.003498.3.579.2.462 Unknown [id number] 2.16.8 40.1.952517.3.579.2.462 Unknown [id number] 2.16.8 40.1.393768.3.579.2.462 Unknown [id number] 2.16.8 40.1.093472.3.579.2.462 Unknown [id number] 2.16.8 40.1.042861.3.579.2.462 Unknown [id number] 2.16.8 40.1.025544.3.579.2.462 Unknown [id number] 2.16.8 40.1.910418.3.579.2.462 Unknown [id number] 2.16.8 40.1.268904.3.579.2.462 Unknown [id number] 2.16.8 40.1.381794.3.579.2.462 Unknown [id number] 2.16.8 40.1.272903.3.579.2.462 Unknown [id number] 2.16.8 40.1.862753.3.579.2.462 Unknown [id number] 2.16.8 40.1.031833.3.579.2.462 Unknown [id number] 2.16.8 40.1.869714.3.579.2.462 Unknown [id number] 2.16.8 40.1.537838.3.579.2.462 Unknown [id number] 2.16.8 40.1.789455.3.579.2.462 Unknown [id number] 2.16.8 40.1.105261.3.579.2.462 Social History Date Type Detail Facility Alcohol Use: Alcohol Use: ; Y es for Alcohol Use. Occasional alcohol use. [employer]; [facility] [employer] Marital status: Marital status: ; . [employer] [employer] Start: 03-24-2024 End: 12-15-2024 Most Recent Primary Occupation Most Recent Primary Occupation [employer] Tobacco use: Tobacco use: ; C urrent every day smoker. [facility]; [facility] Start: [address] [facility] Occasional alcohol use [facility]; [facility] Work Phone: Smokes tobacco daily [facility].; [facility] Work Phone: [facility]; [facility] Work Phone: Start: 07-04-2020 Tobacco smoking status Light t obacco smoker (finding) [facility] Sex Assigned At [facility] Start: 03-24-2024 End: 07-15-2025 Tobacco smoking status NHIS Ex-smoker [facility] History of tobacco use Current smoker [facility] History of tobacco use Cigarette Smoker C [facility] Start: 03-24-2024 End: 09-08-2024 Tobacco use and exposure Smokeless tobacco non-user [facility] Start: 03-24-2024 End: 12-15-2024 Tobacco use panel [facility] Start: 1965 Sex Assigned At Not on file C [facility] Start: 08-31-2012 National Score (1-10 0), lower number is lower risk 80 [facility] Start: 09-08-2024 End: 05-18-2025 Alcoholic beverage intake Current drinker of alcohol (finding) [facility] Has the [employer], or [employer] threatened to shut off services in your home in past 12Mo No [facility] (I/We) worried wheth er (my/our) food would run out before (I/we) got money to buy more. Never true [facility] Start: 07-31-2016 Sex Female (finding) [facility] Medical Equipment Procedure Code Equipment Code Equipment Origin al Text Equipment Identifier Dates Arthroscopy, shoulder, with rotator cuff repair ANCHOR, 4.75 SWIVEL LOCK FDA Start: 07-19-2025 Arthroscopy, shoulder, with rotator cuff repair FIBERLINK [id number] FDA Start: 07-19-2025 Arthroscopy, shoulder, with rotator cuff repair PROXIMAL TENODESIS IMPLANT FDA Start: 07-19-2025 Dbm [id number] Start: 11-30-2024 Cap Quartex Lock ing Thread Spine - [id number] Start: 11-30-2024 Quartex Curved R od 4mm X 40mm [id number] Start: 11-30-2024 Screw Quartex 3. 5mm 14mm Bone Polyaxial Spine - [id number] Start: 11-30-2024 Peripheral arter y endovascular stent-graft, non-medicated ()[id number] FDA Start: 09-02-2024 Goals Date Patient Goal Desired Activity /State Personal health goal Functional Status Date Assessment Result Facility 12-02-2024 Are you deaf, or do you have serious difficulty hearing No 12/02/2024 1:35 PM Desiree Valle RN No [facility] 12-02-2024 Are you blind, or do you have serious difficulty seeing, even when wearing glasses No 12/02/2024 1:35 PM Desiree Valle RN No [facility] 12-02-2024 Do you have serious difficulty walking or climbing stairs No 12/02/2024 1:35 PM Desiree Valle RN No [facility] 12-02-2024 Do you have difficul ty dressing or bathing No 12/02/2024 1:35 PM Desiree Valle RN No [facility] 12-02-2024 Because of a physica l, mental, or emotional condition, do you have difficulty doing errands alone such as visiting a physician's office or shopping No 12/02/2024 1:35 PM Desiree Valle RN No [facility] Mental Status Date Assessment Result Facility 07-19-2025 Cognitive function Level Of Cons ciousness Awake [facility] Work Phone: 07-19-2025 Cognitive function Voice/Name [facility] Work Phone: 12-02-2024 Because of a physica l, mental, or emotional condition, do you have serious difficulty concentrating, remembering, or making decisions No 12/02/2024 1:35 PM Desiree Valle RN No [facility] Clinical Notes 03-24-2024 to 07-19-2025 Note Date & Type Note Facility 07-19-2025 Consult note [facility] 07-19-2025 Consult note Note Date/Time July 19, 2025 4:26pm [facility] Medical Records Department [address] [place] [address] Anesthesia Postop Eval II 07/19/25 1406 MR#: [id number] Acct: [id number] Name: CHIDI MUSA Rep #:[id number] : 1965 60 From: Uriel Meek MD PCP: MARQUIS LoyolaC Status:[facility] Y Race: C Location: [place] [address] Anesthesia Postop Eval I Sum Postop Eval Completion status Anesthesia document: Postop Eval 1 completed: Yes Anesthesia Postop Eval I Summary Anesthesia Postop Eval I Summary: Anesthesia Postop Eval I: Assessment Summary Airway patent Yes 07/19/25 13:37 ACCOUNTING ADMINISTRATOR.[email or web address] Spontaneous unlabored Yes 07/19/25 13:37 ACCOUNTING ADMINISTRATOR.JBLOU respirations Mental status nausea No 07/19/25 13:37 ACCOUNTING ADMINISTRATOR.JBLOU Vomiting No 07/19/25 13:37 ACCOUNTING ADMINISTRATOR.JBLOU Anesthesia Postop Eval I: Fluid Summary Crystalloid volume administer 1,000 07/19/25 13:37 ACCOUNTING ADMINISTRATOR.JBLOU (ml) Colloids volume administered ( ml) Blood Product volume administered (ml) Total IV fluid infused 1,000 07/19/25 13:37 ACCOUNTING ADMINISTRATOR.JBLOU Anesthesia Postop Eval I: Summary Notes Anesthesia Complication No 07/19/25 13:37 ACCOUNTING ADMINISTRATOR.JBLOU Anesthesia Complication Comment: Post-operative progress note Anesthesia: Postop Eval II Evaluation Mental status: Awake Pain Level: 1 nausea: No Vomiting: No 07/19/25 1406 <Electronically signed by Uriel Meek MD > Date _ Uriel Bojorquez Signature: Date CC: ~ Signed [facility] Work Phone: 1(873) 953-285410-20-2025 Consult note Author Kaleb Cervantes [facility] Note Date/Time July 19, 2025 2 :37pm [facility] Medical Records Department [address] [place] [address] Anesthesia Postop Eval I 07/19/254 MR#: [id number] Acct: [id number] Name: CHIDI MUSA Rep #:[id number] : 1965 60 From: Kaleb JEREZ PCP: MARQUIS LoyolaC Status:RE G [facility] Y Race: C Location: [place] [address] Anesthesia: Postop Eval I Current Vital Signs [...] Kaleb Bojorquez Signature: Date CC: ~ Signed [facility] Work Phone: 1(354) 532-420110-20-2025 Consult note [facility] Medical Records Department [address] [place] [address] Anesthesia Postop Eval I 07/19/254 MR#: [id number] Acct: [id number] Name: CHIDI MUSA Rep #:[id number] : 1965 60 From: Kaleb LOUISE NA PCP: MARQUIS LoyolaC Status:BIANKA Olivares [facility] Y Race: C Location: [place] [address] Anesthesia: Postop Eval I Current Vital Signs Temperature: 97 F Pulse Rate: 78 Blood Pressure: 151/68 Respiratory Rate: 18 Pulse Ox: 95 Assessment Airway patent: Yes Spontaneous unlabored respirations: Yes nausea: No Vomiting: No Anesthesia Complication: No Fluid Hydration Crystalloid volume administer (ml): 1,000 Total IV fluid infused: 1,000 Progress Note Anesthesia document: Postop Eval 1 completed: Yes 07/19/25 1337 ACCOUNTING ADMINISTRATOR> Date _ Kaleb Cervantes ACCOUNTING ADMINISTRATOR Cosigner Signature: Date CC: ~ Signed [facility]10-20-2025 Procedure note [facility] Medical Records Department [address] [place] [id number] Operative Report 07/19/25 1318 MR#: [id number] Acct: [id number] Name: CHIDI MUSA Rep #:[id number] : 1965 60 From: Moiz rodriguez DO PCP: NATACHA Loyola Status:BIANKA Olivares [facility] Location: [place] [address] Operative Report (Standard) Operative Information Date of [...] Right shoulder mini open subpectoral biceps tenodesis household refrigerator mechanic: Yes Awning Craftsman: Shefali Skinner Tasks completed by web production assistant: Opening & closing, Implanting device and [...] were closed in standard fashion with a onhnzf-uf-tegok 3-0 nylon suture. The arm was then [...] the subpectoral region of the humerus. Unicortical towing pilot hole was established with a spade tip drill. Button was then placed in our towing pilot hole and deployed. Sutures were tensioned [...] operative suite and extubated. [facility] condition. Need for skilled assistant teacher: Shefali Skinner PA-C was critical to the outcome of thecase. During the course of the procedure the physician assistant teacher played a vitalrole. Her intimate knowledge of [...] NATACHA Walter; Dr. Moiz Rodriguez, DO~ Signed [facility]10-20-2025 Consult note Author Uriel darcy [facility] Note Date/Time July 19, 2025 1 2:05pm [facility] Medical Records Department [address] [place] [address] Pre-Anesthesia Evaluation 07/19/25 1104 MR#: [id number] Acct: [id number] Name: CHIDI MUSA Rep #:[id number] : 1965 60 From: Uriel Meek MD PCP: NATACHA Loyola Status:RE G SDC Y Race: C Location: [place] [address] ASA Classification* ASA Classification ASA Classification: 3 [...] RTC REPAIR Anesthesia History Anesthesia History - sourcing specialist: Anesthesia History - sourcing specialist Hx Hospitalization No 07/15/25 09:28 Any Problems [...] take am of surgery PONV PONV - sourcing specialist: PONV - sourcing specialist Female Yes 07/15/25 09:28 HX of Motion [...] 07/19/25 10:28 Respiratory Assessment Respiratory Assessment - sourcing specialist: Respiratory Tract Infection Hx - sourcing specialist Hx Respiratory Tract Infection No 07/15/25 09:28 STOP Sleep Apnea STOP Sleep Apnea - sourcing specialist: STOP Sleep Apnea - sourcing specialist Hx Hypertension Yes: CONTROLLED WITH MED 07/15/25 [...] Tobacco Use History Tobacco Use History - sourcing specialist: Tobacco Use History - sourcing specialist Tobacco Use Smoking Status Former smoker 07/15/25 09:28 Hx Tobacco Use No 07/15/25 09:28 Years Smoking Packs Smoked per Day Smoking Cessation Date was Yes - quit smoking within 15 07/15/25 09:28 within the last 15 years years Hx Smoking Cessation Date 09/30/23 07/15/25 09:28 Hx Smoking Cessation No 07/15/25 09:28 Counseling Hematologic Medial History Hematologic Hx - sourcing specialist: Hematologic Medical 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 Hx of Blood Transfusion No 07/15/25 09:28 [...] confused, unrespo /Reproduction History /Reproductive History - sourcing specialist: /Reproductive Hx- sourcing specialist Hx Now No 07/15/25 09:28 Gestational Age [...] COPD (chronic obstructive pulmonary disease) Atherosclerosis of [place] arteries of extremities with rest pain, left [...] MD > Date _ [facility]: Date CC: ~ Signed [facility] Work Phone: 1(437) 581-222410-20-2025 Consult note [facility] Medical Records Department [address] [place] [id number] Pre-Anesthesia Evaluation 07/19/251103 MR#: [id number] Acct: [id number] Name: CHIDI MUSA Rep #:[id number] : 1965 60 From: Uriel Meek MD PCP: MARQUIS LoyolaC Status:RE G UTJessica Y Race: C Location: [place] [address]- ASA Classification* ASA Classification ASA Classification: 3 [...] RTC REPAIR Anesthesia History Anesthesia History - sourcing specialist: Anesthesia History - sourcing specialist Hx Hospitalization No 07/15/25 09:28 Any Problems [...] take am of surgery PONV PONV - sourcing specialist: PONV - sourcing specialist Female Yes 07/15/25 09:28 HX of Motion [...] 07/19/25 10:28 Respiratory Assessment Respiratory Assessment - sourcing specialist: Respiratory Tract Infection Hx - sourcing specialist Hx Respiratory Tract Infection No 07/15/25 09:28 STOP Sleep Apnea STOP Sleep Apnea - sourcing specialist: STOP Sleep Apnea - sourcing specialist Hx Hypertension Yes: CONTROLLED WITH MED 07/15/25 [...] Tobacco Use History Tobacco Use History - sourcing specialist: Tobacco Use History - sourcing specialist Tobacco Use Smoking Status Former smoker 07/15/25 09:28 Hx Tobacco Use No 07/15/25 09:28 Years Smoking Packs Smoked per Day Smoking Cessation Date was Yes - quit smoking within 15 07/15/25 09:28 within the last 15 years years Hx Smoking Cessation Date 09/30/23 07/15/25 09:28 Hx Smoking Cessation No 07/15/25 09:28 Counseling Hematologic Medial History Hematologic Hx - sourcing specialist: 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 Author Type: Physician Type: Progress Notes Filed: 06/24/2025 16:00 Note Text: Mayank Sheehan MD Orthopaedic Spine Surgery [address] [place] [address], [address], [place] [address] FAX: [phone] Spine Surgery Outpatient Note Service Date: 06/24/2025 [...] Spondylosis Without Myelopathy Preop Testing Cervical Myelopathy ([facility]) Cad (Coronary Artery Disease) Sleep Apnea History of Coronary Artery Bypass Graft Stented Coronary Artery Htn (Hypertension) Diabetes Mellitus, Type 2 ([facility]) Arthritis History of Psychiatric Care Obesity, Class I, Bmi 30-34.9 Other Specified Postprocedural States S/P Cervical Spinal Fusion Lumbosacral Spondylosis With Radiculopathy PAST MEDICAL HISTORY Diagnosis Date Back pain [facility] Dr. Jorge follows Coronary artery disease 1 stent placed 09/08/19 Dr. Maldonado follows, started managaing care in 12/2023 Depression PCP manages Diabetes ([facility]) PCP manages Generalized anxiety disorder PCP manages GERD (gastroesophageal reflux disease) controlled with meds PCP follows Heart attack ([facility]) 05/2020 CABG X3-[place] Hypertension PCP manages/ controlled on meds Mixed hyperlipidemia controlled with meds PCP follows Neck pain Dr. Sheehan follows- reported falling off pickup truck bed 08/30/24 and has had problems since. muscle spasms down both arms/shoulders AVE (obstructive sleep apnea) sleep study completed 2023 in [facility]. due to anxiety/depression noncompliant with cpap. unable to tolerate mask Other emphysema ([facility]) Maria T Seay N.P. pulmonology [place]. 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 [address] Quintana follows-aspirin/plavix PAST SURGICAL HISTORY Procedure Laterality Date ADDTL NECK SPINE FUSION 06/30/2007 [place] ARTHROTOMY W/MENISCUS REPAIR KNEE Left 06/18/2007 CABG (3) VEIN GRAFTS AND ARTERIAL GRAFT(S) 05/2020 Shiela Rendon PAST SURGICAL HISTORY OF Left 09/02/2024 stent placement Iliac artery PAST SURGICAL HISTORY OF 09/08/2019 1 stent placed in heart REMOVAL GALLBLADDER 04/11/1986 [facility] TOTAL ABDOM HYSTERECTOMY 08/30/2005 at [facility] No family history on file. [...] Take 25 mg by mouth once daily. Qutny-0-UBQ-EPA-Fish Oil (FISH OIL) 1,000 (120-180) mg cap [...] (PROVENTIL HFA, VENTOLIN HFA) (more content not included)...[facility]09-12-2025 Telephone encounter Note* Telephone Encounter - Phillip Haji RN - 06/11/2025 8:58 AM EDT Attempted to call pt, phone message states subscriber not in service, unable to leave a message Phillip Haji RN June 11, 2025 8:59 AM [facility]09-12-2025 Miscellaneous Notes* Telephone Encounter - Phillip Haji RN - 06/11/2025 8:58 AM EDT Attempted to call pt, phone message states subscriber not in service, unable to leave a message Phillip Haji RN June 11, 2025 8:59 AM * Telephone Encounter - Kobi Garsia PA-C - 06/10/2025 5:19 PM EDT She is on a reasonable dose of Lyrica. I will not increase the dose because the medication was lastfilled on 04/05/2025 which indicates she is taking the less medication than prescribed. [place] remind her the Lyrica can be taken [...] 10, 2025 3:18 PM documented in this encounterMer[facility] History of Present illness Narrative* Phillip [...] PATIENT PRESENTS WITH AN IMPLANTABLE OR ATTACHED MANAGER TRAFFIC: No RADIOLOGY DEPARTMENT: MR; Exam(s) Completed: Spine: Lumbar spine. Anesthesia: No. Aromatherapy Administered: No PERIPHERAL IV DATA: Not applicable SIGNED BY: ARIANNA Silva) June 11, 2025 7:27 AM documented in this encounterMer[facility]09-12-2025 NoteHNO ID: [id number] Author: PHILLIP BECKER RT (R) Service: ? [...] PATIENT PRESENTS WITH AN IMPLANTABLE OR ATTACHED MANAGER TRAFFIC: No RADIOLOGY DEPARTMENT: MR; Exam(s) Completed: Spine: Lumbar spine. Anesthesia: No. Aromatherapy Administered: No PERIPHERAL IV DATA: Not applicable SIGNED BY: Phillip Becker, RT(R) June 11, 2025 7:27 [facility]09-11-2025 Telephone encounter Note* Telephone Encounter - Kobi Garsia PA-C - 06/10/2025 5:19 PM EDT She is on a reasonable dose of Lyrica. I will not increase the dose because the medication was lastfilled on 04/05/2025 which indicates she is taking the less medication than prescribed. Yahaira remind her the Lyrica can be taken three times a day [facility]09-11-2025 Telephone encounter Note* Telephone Encounter - Jina Ramirez MA - 06/10/2025 3:17 PM EDT Patient left message on Rx refill line stating she would like a increase in her pregabalin . The current dose is like eating candy and does nothing for her. Would like a call from the office . Jina Ramirez MA June 10, 2025 3:18 PM [facility]09-11-2025 Telephone encounter Note* Telephone Encounter - Dinora Galloway - 06/10/2025 7:57 AM EDT Diabetic clearance is in scanned documents. Dinora Galloway June 10, 2025 7:58 AM [facility]09-11-2025 Miscellaneous Notes* Telephone Encounter - Dinora Galloway - 06/10/2025 7:57 AM EDT Diabetic clearance is in scanned documents. Dinora Galloway June 10, 2025 7:58 AM documented in this encounterMer[facility]09-[facility]-2025 Telephone encounter Note * Telephone Encounter [...] especially since last purchased under private ins.. [facility]09-05-2025 Miscellaneous Notes* Telephone Encounter - Palak [...] 04, 2025 1:00 PM documented in this encounterMercy [facility]09-05-2025 Evaluation + Plan note Future Scheduled Tests Laboratory* Complete Blood Count 06/04/25 [facility] 09-05-2025 Telephone encounter Note* Telephone [...] could try using that on her shoulder. [facility] Work Phone: 1(432) 308-999709-05-2025 Telephone encounter Note* Telephone Encounter - Phillip [...] Haji RN June 04, 2025 1:00 PM [facility]09-02-2025 Telephone encounter Note* Telephone Encounter - [...] use thesemedications for pain relief as ordered. [facility]09-02-2025 Miscellaneous Notes* Telephone Encounter - Palak [...] 01, 2025 1:13 PM documented in this encounterMercy Health [facility]09-02-2025 Telephone encounter Note * Telephone Encounter - Palak Borjas LPN - 06/01/2025 1:47 PM EDT Left message on Id'd VM asking if she has used cream that was ordered and how often, to return callto Nurseline. [facility]09-02-2025 Telephone encounter Note* Telephone Encounter - Jina Ramirez MA - 06/01/2025 1:11 PM EDT Patient called Rx refill line asking for a call back. She states her pregabalin (LYRICA) 200 mg capsule isn't helping with her shoulder pain. Requesting something stronger Jina Ramirez MA June 01, 2025 1:13 PM [facility]08-28-2025 Telephone encounter Note* Telephone Encounter - Palak Borjas LPN - 05/27/2025 2:45 PM EDT Attempted to reach pt to discuss, no answer or VM set up. [facility]08-28-2025 Miscellaneous Notes* Telephone Encounter - Palak Borjas LPN - 05/27/2025 2:45 PM EDT Attempted to reach pt to discuss, no answer or VM set up. * Telephone Encounter - Celine Hamilton MA - 05/26/2025 1:05 PM EDT Patient called in about a pain cream that was suppose to be ordered for her. documented in this encounterMer[facility]08-27-2025 Telephone encounter Note * Telephone Encounter - Celine Hamilton MA - 05/26/2025 1:05 PM EDT Patient called in about a pain cream that was suppose to be ordered for her. [facility]08-21-2025 Telephone encounter Note* Telephone Encounter - Palak Borjas LPN - 05/20/2025 11:07 AM EDT Steroid clearance form faxed to Deo Walter PCP at this time. Pt informed of this information and that she will need to work with her PCP on a possible sliding scale and that she does not need to stopthe blood thinners for this procedure, stated ok. [facility]08-21-2025 Miscellaneous Notes* Telephone Encounter - Palak [...] 19, 2025 1:44 PM documented in this encounterMercy [facility]08-21-2025 Telephone encounter Note * Telephone Encounter - Kobi Garsia PA-C - 05/20/2025 8:08 AM EDT She does not need to stop her blood thinner for the nerve blk. She needs to discuss medication/sliding scale to manage her blood sugar due to the steroids. [facility]08-20-2025 Telephone encounter Note* Telephone Encounter - [...] Haji RN May 19, 2025 1:44 PM [facility]08-19-2025 Telephone encounter Note* Telephone Encounter - Chrissie Sarah RN - 05/18/2025 1:35 PM EDT Pt contacted as to below and acknowledges below as well as to contact [facility] with any updates, questions, or concerns. Chrissie Sarah RN May 18, 2025 1:36 PM [facility]08-19-2025 Miscellaneous Notes* Telephone Encounter - Chrissie Sarah RN - 05/18/2025 1:35 PM EDT Pt contacted as to below and acknowledges below as well as to contact [facility] with any updates, questions, or concerns. [...] provider on the numbergiven documented in this encounterMercy [facility]08-19-2025 Telephone encounter Note * Telephone Encounter - Kobi Garsia PA-C - 05/18/2025 9:59 AM EDT Can you ask pt to contact her PCP and notify her of her upcoming procedure in case her diabetic medications need adjusted after the procedure? *Im unable to message the PCP directly (not [facility]) and was unable to reach the provider on the numbergiven [facility]08-19-2025 Instructions* Patient Instructions* Kobi Garsia PA-C [...] up in 3 months documented in this encounterMercy Health [facility]08-19-2025 NoteHNO ID: [id number] Author: KOBI GARSIA PA-C Service: ? Author Type: Physician Tire Spotter Type: Progress Notes Filed: 05/18/2025 10:02 Note [...] PAST MEDICAL HISTORY Diagnosis Date Back pain [facility] Pain management Dr. Jorge follows Coronary artery disease 1 stent placed 09/08/19 Dr. Maldonado follows, started managaing care in 12/2023 Depression PCP manages Diabetes ([facility]) PCP manages Generalized anxiety disorder PCP manages GERD (gastroesophageal reflux disease) controlled with meds PCP follows Heart attack ([facility]) 05/2020 CABG X3-[place] Hypertension PCP manages/ controlled on meds Mixed hyperlipidemia controlled with meds PCP follows Neck pain Dr. Sheehan follows- reported falling off pickup truck bed 08/30/24 and has had problems since. muscle spasms down both arms/shoulders AVE (obstructive sleep apnea) sleep study completed 2023 in [facility]. due to anxiety/depression noncompliant with cpap. unable to tolerate mask Other emphysema ([facility]) Maria T Seay N.P. pulmonology [place]. 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 [address] Quintana follows-aspirin/plavix PAST SURGICAL HISTORY Procedure Laterality Date ADDTL NECK SPINE FUSION 06/30/2007 [place] ARTHROTOMY W/MENISCUS REPAIR KNEE Left 06/18/2007 CABG (3) VEIN GRAFTS AND ARTERIAL GRAFT(S) 05/2020 [facility]-Dr. Renodn PAST SURGICAL HISTORY OF Left 09/02/2024 stent placement Iliac artery PAST SURGICAL HISTORY OF 09/08/2019 1 stent placed in heart REMOVAL GALLBLADDER 04/11/1986 [facility] TOTAL ABDOM HYSTERECTOMY 08/30/2005 at [facility] No family history on file. [...] Take 25 mg by mouth once daily. Firjd-1-WIQ-EPA-Fish Oil (FISH OIL) 1,000 (120-180) mg cap [...] Inhale 1-2 Puffs as (more content not included)...[facility]08-19-2025 History of Present illness Narrative* Kobi Garsia [...] care in 12/2023 Depression PCP manages Diabetes ([facility]) PCP manages Generalized anxiety disorder PCP manages GERD (gastroesophageal reflux disease) controlled with meds PCP follows Heart attack ([facility]) 05/2020 CABG X3-[place] Hypertension PCP manages/ controlled on meds Mixed hyperlipidemia controlled with meds PCP follows Neck pain Dr. Sheehan follows- reported falling off pickup truck bed 08/30/24 and has had problems since. musclespasms down both arms/shoulders AVE (obstructive sleep apnea) sleep study completed 2023 in [facility]. due to anxiety/depression noncompliant with cpap. unable to tolerate mask Other emphysema ([facility]) Maria T Seay N.P. pulmonology [place]. 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 [address] Quintana follows-aspirin/plavix PAST SURGICAL HISTORY Procedure Laterality Date ADDTL NECK SPINE FUSION 06/30/2007 [place] ARTHROTOMY W/MENISCUS REPAIR KNEE Left 06/18/2007 CABG (3) VEIN GRAFTS & ARTERIAL GRAFT(S) 05/2020 [place]-Dr. Rendon PAST SURGICAL HISTORY OF Left 09/02/2024 stent placement Iliac artery PAST SURGICAL HISTORY OF 09/08/2019 1 stent placed in heart REMOVAL GALLBLADDER 04/11/1986 [facility] TOTAL ABDOM HYSTERECTOMY 08/30/2005 at [facility] No family history on file. [...] Take 25 mg by mouth once daily. Wdfrd-9-ADF-EPA-Fish Oil (FISH OIL) 1,000 (120-180) mg cap [...] AM (Final result) Impression: IMPRESSION: See result. [employer] Retailer: PILLO Transcribe Date/Time: Sep 08 2024 1:33A [...] Marijuana Comment: occasionally marijuana documented in this encounterMercy [facility]08-07-2025 NoteHNO ID: [id number] Author: VALENTE HERNANDEZ, PT Service: ? Author Type: Physical Therapist Type: Progress Notes Filed: 05/06/2025 15:32 Note Text: 05/06/2025 [facility] PHYSICAL THERAPY DISCONTINUANCE OF CARE Plan of Care Period: Start of Care Date: 01/13/25 Last Visit Date: 03/03/2025 Therapy Program: The following is a summary of the interventions provided for this episode of care; Therapeutic exercise, Manual therapy, and Self-fdc management Assessment: The following is the goal status: Updated: 02/04/25 and 02/26/25 Goals for Episode of Care: established 01/13/25 Patient reported outcome of physical function will increase T-score by a minimum 5 points. - MET, will monitor (improved by 7 points) [place] in home exercise program. 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 - Partially MET, will continue Sleep throughout [...] or scheduled additional follow-up appointments. Valente Hernandez, [facility]06-26-2025 NoteHNO ID: [id number] Author: MAYANK SHEEHAN MD Service: ? Author Type: Physician Type: Progress Notes Filed: 03/25/2025 11:57 Note Text: Mayank Sheehan MD [facility] General Orthopedics - Orthopaedic Spine Surgeon [address], [address], [address], [place] [address] Phone: [phone] ([phone] FAX: [phone] Spine Surgery Post-op Follow-up Service Date: 03/25/2025 [...] Take 25 mg by mouth once daily. Ikanq-4-JBB-EPA-Fish Oil (FISH OIL) 1,000 (120-180) mg cap [...] choice at earliest convenience (more content not included)...[facility]06-26-2025 History of Present illness Narrative* Mayank Sheehan MD - 03/25/2025 11:53 AM EDT Images from the original note were not included. Mayank Sheehan MD [facility] Orthopedics - Orthopaedic Spine Surgeon [address] [facility], [address], [address], [place] [address] Phone: [phone] ([phone] FAX: [phone] Spine Surgery Post-op Follow-up Service Date: 03/25/2025 [...] Take 25 mg by mouth once daily. Gegob-3-CZI-EPA-Fish Oil (FISH OIL) 1,000 (120-180) mg cap [...] was generated all or in part using [employer] voice recognition software and [employer] dictation software. Please excuse any minor errors in spelling, grammar, or punctuation. documented in this encounterMercy Health [facility]06-11-2025 History of Present illness Narrative* Kevin [...] PATIENT PRESENTS WITH AN IMPLANTABLE OR ATTACHED MANAGER TRAFFIC: No RADIOLOGY DEPARTMENT: CT; Exam(s) Completed: Spine PERIPHERAL IV DATA: Not applicable SIGNED BY: RT Verónica(Cale) March 10, 2025 3:17 PM documented in this encounterMercy Health [facility]06-11-2025 NoteHNO ID: [id number] Author: KEVIN ROBLEDO RT(R) Service: ? Author Type: Hospice Educator Type: Progress Notes Filed: 03/10/2025 15:18 Note [...] PATIENT PRESENTS WITH AN IMPLANTABLE OR ATTACHED MANAGER TRAFFIC: No RADIOLOGY DEPARTMENT: CT; Exam(s) Completed: Spine PERIPHERAL IV DATA: Not applicable SIGNED BY: RT Verónica(Cale) March 10, 2025 3:17 [facility]06-11-2025 History of Present illness Narrative* Phillip [...] PATIENT PRESENTS WITH AN IMPLANTABLE OR ATTACHED MANAGER TRAFFIC: No RADIOLOGY DEPARTMENT: MR; Exam(s) Completed: Spine: Cervical spine. [place] Administered: No PERIPHERAL IV DATA: Not applicable SIGNED BY: RT Ricardo(Cale) March 10, 2025 8:05 AM documented in this encounterMercy Health [facility]06-11-2025 NoteHNO ID: [id number] Author: PHILLIP BECKER RT(R) Service: ? Author [...] PATIENT PRESENTS WITH AN IMPLANTABLE OR ATTACHED MANAGER TRAFFIC: No RADIOLOGY DEPARTMENT: MR; Exam(s) Completed: Spine: Cervical spine. [place] Administered: No PERIPHERAL IV DATA: Not applicable SIGNED BY: RT Ricardo(R) March 10, 2025 8:05 [facility]06-09-2025 Telephone encounter Note* Telephone Encounter - Kobi Garsia PA-C - 03/08/2025 12:05 PM EDT The following approved medication requests have been transmitted electronically. Requested Prescriptions Signed Prescriptions Disp Refills pregabalin (LYRICA) 150 mg capsule 90 capsule 1 Sig: Take 1 capsule by mouth three times a day for 30 days. Authorizing Provider: KOBI GARSIA PA-C [facility]06-09-2025 Miscellaneous Notes* Telephone Encounter - Kobi [...] EDT Patient would like script sent to [facility] Patient phones requesting refills as follows: Requested Prescriptions Pending Prescriptions Disp Refills pregabalin (LYRICA) 150 mg capsule 90 capsule 2 Sig: Take 1 capsule by mouth three times a day for 30 days. Last UDS: NO UDS ON FILE [facility] Urine Drug Screen No results found for: [facility] Urine Drug Screen and Benzo Confirm Urine Panel: No results found for: UQCANN, UQBNZL, JLO2CWM, UQAMPH, UQMAMP, UQBUPRE, UQNORBUP, UQMTHD, UQEDDP, UQTRAM, [...] advise. Jina Ramirez MA documented in this encounterMercy Health [facility]06-09-2025 Telephone encounter Note * Telephone Encounter - Jina Ramirez MA - 03/08/2025 11:27 AM EDT Patient would like script sent to [facility] Patient phones requesting refills as follows: Requested Prescriptions Pending Prescriptions Disp Refills pregabalin (LYRICA) 150 mg capsule 90 capsule 2 Sig: Take 1 capsule by mouth three times a day for 30 days. Last UDS: NO UDS ON FILE [facility] Urine Drug Screen No results found for: [facility] Urine Drug Screen and Benzo Confirm Urine Panel: No results found for: UQCANN, UQBNZL, ETF2JLR, UQAMPH, UQMAMP, UQBUPRE, UQNORBUP, UQMTHD, UQEDDP, UQTRAM, [...] Please review and advise. Jina Ramirez MA [facility]06-04-2025 NoteHNO ID: [id number] Author: VALENTE HERNANDEZ PT Service: ? Author [...] RC Tendon insertion at Greater Tubercle. (2) .36b85hf. 2 [place] Placed, 2 [place] Withdrawn. Soft Tissue Mobilization: STM to R Infra and R UT + palpation examination for trigger points throughout R Neck/Shoulder/Periscap Area,: Push to tolerance. Trigger Point Release: TPR to R UT: 2x10, 5-sec holds. Dry Needling: Dry needling to following Trigger points: To R UT AND R Infraspinatus. Needle length: .46j59iv . [place] used 2, needles removed 2. Dry needling [...] Session Stop Time : 823 Valente Hernandez, [facility]06-04-2025 History of Present illness Narrative* Valente Hernandez, [...] RC Tendon insertion at Greater Tubercle. (2) .03i90hu. 2 [place] Placed, 2 [place] Withdrawn. Soft Tissue Mobilization: STM to R Infra and R UT + palpation examination for trigger points throughout R Neck/Shoulder/Periscap Area,: Push to tolerance. Trigger Point Release: TPR to R UT: 2x10, 5-sec holds. Dry Needling: Dry needling to following Trigger points: To R UT & R Infraspinatus. Needle length: .92w47hc . [place] used 2, needles removed 2. Dry needling [...] 823 Valente Hernandez PT documented in this encounterMercy Health Clermont Hospital05-30-2025 NoteHNO ID: [id number] Author: SARA WISEMAN PT Service: ? Author [...] MET, will monitor (improved by 7 points) Monroe in home exercise program. 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 She reports that she has not been [...] session pt reported that (more content not included)...[facility]05-30-2025 History of Present illness Narrative* Sara Wiseman, [...] MET, will monitor (improved by 7 points) Monroe in home exercise program. 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 She re ports that she has not [...] 1116 Sara Wiseman PT documented in this encounterMercy Health Clermont Hospital05-27-2025 NoteHNO ID: [id number] Author: MAYANK SHEEHAN MD Service: ? Author Type: Physician Type: Progress Notes Filed: 02/23/2025 09:46 Note Text: Mayank Sheehan MD [facility] Orthopedics - Orthopaedic Spine Surgeon [address] [facility] [address] [facility] [address], [address], [place] [address] [place] [address], [address], [place] [address] Phone: [phone] ([phone]) FAX: [phone] Spine Surgery Post-op Follow-up Service Date: 02/23/2025 [...] second opinion regarding the right shoulder from [facility] who recommended proceeding with surgery after [...] Take 40 mg by mouth every afternoon. Qpcfl-9-JQZ-EPA-Fish Oil (FISH OIL) 1,000 (120-180) mg cap [...] (C6) 5 5 Triceps (C7) 5 5 Web Manager (C8) 5 5 Interossei (T1) 5 5 [...] to prior imaging. Asse (more content not included)...[facility]05-27-2025 History of Present illness Narrative* Mayank Sheehan MD - 02/23/2025 9:43 AM EDT Images from the original note were not included. Mayank Sheehan MD [facility] Orthopedics - Orthopaedic Spine Surgeon [address] [facility], [address], [place] [address] Phone: [phone] ([phone] FAX: [phone] Spine Surgery Post-op Follow-up Service Date: 02/23/2025 [...] second opinion regarding the right shoulder from [facility] who recommended proceeding with surgery after [...] Take 40 mg by mouth every afternoon. Ovhvb-7-IQO-EPA-Fish Oil (FISH OIL) 1,000 (120-180) mg cap [...] (C6) 5 5 Triceps (C7) 5 5 Web Manager (C8) 5 5 Interossei (T1) 5 5 [...] was generated all or in part using [employer] voice recognition software and [employer] dictation software. Please excuse any minor errors in spelling, grammar, or punctuation. * Hina Torres MA - 02/23/2025 9:05 AM EDT 59 y/o female presents to office for a routine post op appointment. Pain is radiating into the right shoulder. Xrays obtained today. documented in this encounterMercy Health Clermont Hospital05-27-2025 NoteHNO ID: [id number] Author: HINA TORRES MA Service: ? Author Type: Store Team Member Type: Progress Notes Filed: 02/23/2025 09:46 Note Text: 59 y/o female presents to office for a routine post op appointment. Pain is radiating into the right shoulder. Xrays obtained today.[facility]05-22-2025 NoteHNO ID: [id number] Author: SARA WISEMAN PT Service: ? Author [...] Session Stop Time : 1050 Sara Wiseman [facility]05-22-2025 NoteHNO ID: [id number] Author: SYLVIE KIRBY Tech Service: ? Author [...] PATIENT PRESENTS WITH AN IMPLANTABLE OR ATTACHED MANAGER TRAFFIC: No RADIOLOGY DEPARTMENT: General X-ray: Exam(s) Completed: Spine X-Ray(s): Cervical AP / LAT / FLEX-EXT PERIPHERAL IV DATA: Not applicable SIGNED BY: Ellen Dominguez February 18, 2025 11:16 [facility]05-20-2025 Instructions* Patient Instructions* Kobi Garsia [...] up in 3 months documented in this encounterMercy Health Clermont Hospital05-20-2025 NoteHNO ID: [id number] Author: KOBI GARSIA PA-C Service: ? Author Type: Physician Tire Spotter Type: Progress Notes Filed: 02/16/2025 09:07 Note Text: PATIENT: Chidi Musa : 1965 DATE OF SERVICE: 02/16/2025 REFERRING PRACTITIONER: Donny PRIMARY CARE PROVIDER: Josephine Walter CNP, PASSENGER AGENT CHIEF COMPLAINT: Patient presents with: Pain: Shoulder [...] care in 12/2023 Depression PCP manages Diabetes ([facility]) PCP manages Generalized anxiety disorder PCP manages GERD (gastroesophageal reflux disease) controlled with meds PCP follows Heart attack ([facility]) 05/2020 CABG X3-[place] Hypertension PCP manages/ controlled on meds Mixed hyperlipidemia controlled with meds PCP follows Neck pain Dr. Sheehan follows- reported falling off pickup truck bed 08/30/24 and has had problems since. muscle spasms down both arms/shoulders AVE (obstructive sleep apnea) sleep study completed 2023 in [facility]. due to anxiety/depression noncompliant with cpap. unable to tolerate mask Other emphysema (HCC) Maria T Seay N.P. [facility] [place]. 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 [address] Quintana follows-aspirin/plavix PAST SURGICAL HISTORY Procedure Laterality Date ADDTL NECK SPINE FUSION 06/30/2007 [facility] W/MENISCUS REPAIR KNEE Left 06/18/2007 CABG (3) VEIN GRAFTS AND ARTERIAL GRAFT(S) 05/2020 [facility]. Rendon PAST SURGICAL HISTORY OF Left 09/02/2024 stent placement Iliac artery PAST SURGICAL HISTORY OF 09/08/2019 1 stent placed in heart REMOVAL GALLBLADDER 04/11/1986 [facility] TOTAL ABDOM HYSTERECTOMY 08/30/2005 at [facility] No family history on file. [...] 40 mg by (more content not included)... [facility]05-20-2025 History of Present illness Narrative* Kobi Garsia PA-C - 02/16/2025 8:28 AM EDT PATIENT: Chidi Musa : 1965 DATE OF SERVICE: 02/16/2025 REFERRING PRACTITIONER: Donny PRIMARY CARE PROVIDER: Josephine Walter CNP, PASSENGER AGENT CHIEF COMPLAINT: Patient presents with: Pain: Shoulder [...] PAST MEDICAL HISTORY Diagnosis Date Back pain [facility] Pain management Dr. Jorge follows Coronary artery disease 1 stent placed 09/08/19 Dr. Maldonado follows, started managaing care in 12/2023 Depression PCP manages Diabetes ([facility]) PCP manages Generalized anxiety disorder PCP manages GERD (gastroesophageal reflux disease) controlled with meds PCP follows Heart attack ([facility]) 05/2020 CABG X3-[place] Hypertension PCP manages/ controlled on meds Mixed hyperlipidemia controlled with meds PCP follows Neck pain Dr. Sheehan follows- reported falling off pickup truck bed 08/30/24 and has had problems since. musclespasms down both arms/shoulders AVE (obstructive sleep apnea) sleep study completed 2023 in [facility]. due to anxiety/depression noncompliant with cpap. unable to tolerate mask Other emphysema ([facility]) Maria T Seay N.P. pulmon[facility] [place]. 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 Quintana follows-aspirin/plavix PAST SURGICAL HISTORY Procedure Laterality Date ADDTL NECK SPINE FUSION 06/30/2007 [place] ARTHROTOMY W/MENISCUS REPAIR KNEE Left 06/18/2007 CABG (3) VEIN GRAFTS & ARTERIAL GRAFT(S) 05/2020 [facility] Rendon PAST SURGICAL HISTORY OF Left 09/02/2024 stent placement Iliac artery PAST SURGICAL HISTORY OF 09/08/2019 1 stent placed in heart REMOVAL GALLBLADDER 04/11/1986 [facility] TOTAL ABDOM HYSTERECTOMY 08/30/2005 at [facility] No family history on file. [...] three times a day for 30 days. Lbstj-9-SMW-EPA-Fish Oil (FISH OIL) 1,000 (120-180) mg cap [...] pain. She obtained a second opinion at [facility]. Surgery was discussed but needs to [...] back. Pain feels deep. documented in this encounterMercy Health Clermont Hospital05-20-2025 NoteHNO ID: [id number] Author: PALAK BORJAS LPN Service: ? Author [...] - pain goes into back. Pain feels deep.[facility] 02-15-2025 NoteHNO ID: [id number] Author: SARA WISEMAN, PT Service: ? Author [...] Session Stop Time : 923 Manuela Liang, CLAIMS ADJUSTER SUPERVISOR Sara Wiseman, [facility]05-19-2025 History of Present illness Narrative* Trudyshaun Sara, [...] 923 DURGA Castrejon PT documented in this encounterMercy Health Clermont Hospital05-15-2025 History of Present illness Narrative* Manuela Liang PTA - 02/11/2025 9:25 AM EDT Program_ID:[id number] Access Code: [email or web address] URL: [email or web address] Date: 02-11-2025 Prepared By: Sara Wiseman Program [...] she saw a Shefali Mcmillan PA-C at [facility], for a second opinion. Pt states [...] 921 DURGA Castrejon PT documented in this encounterMercy Health Clermont Hospital05-15-2025 NoteHNO ID: [id number] Author: SARA WISEMAN PT Service: ? Author [...] she saw a Shefali Mcmillan PA-C at [facility], for a second opinion. Pt states [...] Time : 921 Manuela Liang, DURGA Wiseman, [facility]05-09-2025 Telephone encounter Note* Telephone Encounter - Claudia Washington PSS - 02/05/2025 12:17 PM EDT Pt picked up [facility]05-09-2025 Miscellaneous Notes* Telephone Encounter - Claudia Washington PSS - 02/05/2025 12:17 PM EDT Pt picked up * Telephone Encounter - Marte, Christelle - 02/03/2025 8:16 AM EDT Patient is requesting disc of 01/21/25 MRI Shoulder RT. PSS explained that a separate release would need signed for report and to provide the fax number ofthe non [facility] office. Patient has appointment tomorrow at [facility] tomorrow, 02/04/25, and is wanting to picker/puller disc then. documented in this encounterMercy Health Clermont Hospital05-08-2025 NoteHNO ID: [id number] Author: SARA WISEMAN PT Service: ? Author [...] 5 points. - Partially MET, will continue Monroe in home exercise program. 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 - Partially MET, will continue Sleep throughout [...] Patient to be seen for Therapeutic exercise (58775), Neuromuscular re-education (70108), Manual therapy (93599), Therapeutic activities (29340), Self-fdc management (64314), Patient/Family/Caregiver Education, Body Mechanics Training PLAN FOR [...] not improved. 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 She reports that she is still not [...] - Right Post Treatment (more content not included)...[facility] 02-04-2025 History of Present illness Narrative* Sara [...] 5 points. - Partially MET, will continue Monroe in home exercise program. 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 - Partially MET, will continue Sleep throughout [...] Patient to be seen for Therapeutic exercise (66420), Neuromuscular re-education (99896), Manual therapy (28315), Therapeutic activities (87311), Self-fdc management (94442), Patient/Family/Caregiver Education, Body Mechanics Training PLAN FOR [...] not improved. 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 She reports that she is still not [...] : 955 Session Stop Time : 1046 Sara Wiseman PT documented in this encounterMercy Health Clermont Hospital05-07-2025 Telephone encounter Note * Telephone Encounter - Christelle Marte - 02/03/2025 8:16 AM EDT Patient is requesting disc of 01/21/25 MRI Shoulder RT. PSS explained that a separate release would need signed for report and to provide the fax number ofthe non [facility] office. Patient has appointment tomorrow at [facility] tomorrow, 02/04/25, and is wanting to picker/puller disc then. [facility]05-06-[facility] Telephone encounter Note* Telephone Encounter - [...] up with Dr. Overton. She verbalized understanding. [facility]05-06-2025 Miscellaneous Notes* Telephone Encounter - Hina Torres MA - 02/02/2025 4:03 PM EDT Chiid called into the office today with concerns [...] Overton. She verbalized understanding. documented in this encounterMercy Health Clermont Hospital05-06-2025 NoteHNO ID: [id number] Author: SARA WISEMAN PT Service: ? Author [...] Session Stop Time : 1009 DURGA Castrejon, [facility] History of Present illness Narrative* Sara Wiseman, [...] R shoulder flexion AAROM with rope and kirsti 2x10 7: seated R shoulder abduction AAROM [...] Session Stop Time : 1009 Manuela Liang, CLAIMS ADJUSTER SUPERVISOR Sara Wiseman PT documented in this encounterMercy Health Clermont Hospital05-02-2025 Telephone encounter Note * Telephone Encounter [...] to see what is appropriatefor next step. [facility]05-02-2025 Miscellaneous Notes* Telephone Encounter - Cornell [...] is appropriatefor next step. documented in this encounterMercy Health Clermont Hospital05-02-2025 Telephone encounter Note * Telephone Encounter - Neelam Manuel RN - 01/29/2025 8:49 AM EDT Pt called and LM on care line noting that she changed [place] keep [place] our PM in [place]. Pt asking to disregard previous message. Neelam Manuel RN January 29, 2025 8:51 AM [facility]05-02-2025 Miscellaneous Notes* Telephone Encounter - Neelam Manuel RN - 01/29/2025 8:49 AM EDT Pt called and LM on care line noting that she changed her mind and [place]. She wants to keep seeing our PM in [place]. Pt asking to disregard previous message. Neelam Manuel RN January 29, 2025 8:51 AM documented in this encounterMercy Health Clermont Hospital05-01-2025 Telephone encounter Note * Telephone Encounter - Fernando Camacho - 01/28/2025 1:02 PM EDT Patient stopped by the [facility] office today, hoping to get scheduled with [facility]. She has been seeing another pain management practice recently so she signed a records release request and was told aboutthe release of care letter that is required. Notified her that once we have her records (and a release of car letter) from the other practice we will reach out to get her scheduled. Fernando Camacho [facility]05-01-2025 Miscellaneous Notes* Telephone Encounter - CamachoFernando flores - 01/28/2025 1:02 PM EDT Patient stopped by the [facility] office today, hoping to get scheduled with [facility]. She has been seeing another pain management practice recently so she signed a records release request and was told aboutthe release of care letter that is required. Notified her that once we have her records (and a release of car letter) from the other practice we will reach out to get her scheduled. Fernando Camacho documented in this encounterMercy Health Clermont Hospital05-01-2025 NoteHNO ID: [id number] Author: SARA WISEMAN PT Service: ? Author [...] Session Stop Time : 1132 Sara Wiseman [facility]05-01-2025 History of Present illness Narrative* Sara Wiseman [...] 1132 Sara Wiseman PT documented in this encounterMercy Health Clermont Hospital04-30-2025 Evaluation note* Diagnosis Onset Date Resolution [...] arterial disease chronic April 01, 2025 9:50am [facility] [facility] Work Phone: 1(917) 382-917804-29-2025 NoteHNO ID: [id number] Author: ROBBIE LECHUGA LPN Service: ? Author Type: LICENSED NURSE Type: Progress Notes Filed: 01/26/2025 12:42 Note Text: Prepared medication injection 4ml of lidocaine, 4ml of bupivacaine, and 2ml of triamcinolone a for provider to administer to patient per order. Once prepared medication was handed to provider to administer to patient. Robbie Lechuga [facility] History of Present illness Narrative* Robbie Lechuga [...] Marlee Overton MD Orthopedic Sports Medicine Surgery [address] [place] [address] [address] [address] [address] [place] [address] [address] [facility] , [facility] [address] [id number] NAME: Chidi Musa : 1965 DATE: 01/26/2025 [...] voiced understanding of these instructions. Informed Consent [place] Protocol SIGN IN Sign in communication not [...] MD 01/26/2025 12:40 PM documented in this encounterMercy Health Clermont Hospital04-29-2025 NoteHNO ID: [id number] Author: MARLEE OVERTON MD Service: ? Author Type: Physician Type: Progress Notes Filed: 01/26/2025 12:42 Note Text: Marlee Overton MD Orthopedic Sports Medicine Surgery [address] [facility] [address], [facility] [address] [address] [place] [address] [address] [facility] , [facility] [address], [place] [address] NAME: Chidi Musa : 1965 DATE: 01/26/2025 [...] voiced understanding of these instructions. Informed Consent [place] Protocol SIGN IN Sign in communication not [...] today's visit. Marlee Overton MD 01/26/2025 12:40 [facility]04-28-2025 NoteHNO ID: [id number] Author: SARA WISEMAN PT Service: ? Author [...] and assessment of patient's response to intervention. Self-Correction Management: 1: Reviewd findings of MRI with [...] Session Stop Time : 1145 DURGA Castrejon, [facility]04-24-2025 NoteHNO ID: [id number] Author: PHILLIP BECKER RT(Cale) Service: ? Author [...] PATIENT PRESENTS WITH AN IMPLANTABLE OR ATTACHED MANAGER TRAFFIC: No RADIOLOGY DEPARTMENT: MR; Exam(s) Completed: Upper MSK: Shoulder, right PERIPHERAL IV DATA: Not applicable SIGNED BY: RT Ricardo(R) January 21, 2025 7:56 [facility]04-22-2025 Telephone encounter Note* Telephone Encounter - Hina Torres MA - 01/19/2025 10:39 AM EDT Patient phones requesting refills as follows: Pending Prescriptions: Disp Refills tiZANidine (ZANAFLEX) 4 mg tablet [Pharmac*360 ta*1 Sig: Take 1 tablet by mouth every 6 hours as needed. Please review and advise. Hina Torres MA [facility]04-22-2025 Miscellaneous Notes* Telephone Encounter - Hina Torres MA - 01/19/2025 10:39 AM EDT Patient phones requesting refills as follows: Pending Prescriptions: Disp Refills tiZANidine (ZANAFLEX) 4 mg tablet [Pharmac*360 ta*1 Sig: Take 1 tablet by mouth every 6 hours as needed. Please review and advise. Hina Torres MA documented in this encounterMercy Health Clermont Hospital04-22-2025 NoteHNO ID: [id number] Author: MARLEE OVERTON MD Service: ? Author Type: Physician Type: Progress Notes Filed: 01/19/2025 10:43 Note Text: Marlee Overton MD Orthopedic Sports Medicine Surgery [address] [facility] [address], [facility] [address] [facility] [place] [address] [place] [address] , [facility] [address], [place] [address] NAME: Chidi Musa : 1965 DATE: 01/19/2025 [...] is right-hand dominant. 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 She used to smoke but [...] per follow up discussed. Marlee Overton MD 01/19/2025[facility]04-22-2025 History of Present illness Narrative* Marlee Overton MD - 01/19/2025 10:33 AM EDT Images from the original note were not included. Marlee Overton MD Orthopedic Sports Medicine Surgery [address] [facility], [place] [address] [address] [place] [address] [address], [facility] [address], [place] [address] NAME: Chidi Musa : 1965 DATE: 01/19/2025 [...] is right-hand dominant. 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 She used to smoke but [...] Marlee Overton MD 01/19/2025 documented in this encounterMercy Health Clermont Hospital04-16-2025 NoteHNO ID: [id number] Author: SARA WISEMAN PT Service: ? 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 The patient presents with impairments [...] increase T-score by a minimum 5 points. Monroe in home exercise program. 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 Sleep throughout the night without pain/symptoms. 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 The patient presents with impairments [...] increase T-score by a minimum 5 points. Monroe in home exercise program. 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 Sleep throughout the night without pain/symptoms. 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-care) Prior Level of Function: Independent without [...] Wiseman PT - 01/13/2025 9:55 AM EDT Program_ID:[id number] Access Code: [email or web address] URL: [email or web address] Date: 01-13-2025 Prepared By: Sara Wiseman Program [...] sets - 10 reps documented in this encounterMercy Health Clermont Hospital04-15-2025 History of Present illness Narrative* Tanya [...] PATIENT PRESENTS WITH AN IMPLANTABLE OR ATTACHED MANAGER TRAFFIC: No RADIOLOGY DEPARTMENT: General X-ray: Exam(s) Completed: Upper Extremity X- Ray(s): Shoulder, AP / TRUE AP / AXILLARY right PERIPHERAL IV DATA: Not applicable SIGNED BY: RT Joo(Cale) January 12, 2025 10:03 AM documented in this encounterMercy Health Clermont [facility] NoteHNO ID: [id number] Author: TANYA GAMBOA RT(R) Service: Radiology Author [...] PATIENT PRESENTS WITH AN IMPLANTABLE OR ATTACHED MANAGER TRAFFIC: No RADIOLOGY DEPARTMENT: General X-ray: Exam(s) Completed: Upper Extremity X-Ray(s): Shoulder, AP / TRUE AP / AXILLARY right PERIPHERAL IV DATA: Not applicable SIGNED BY: RT Joo(R) January 12, 2025 10:03 [facility]04-15-2025 NoteHNO ID: [id number] Author: MAYANK SHEEHAN MD Service: ? Author Type: Physician Type: Progress Notes Filed: 01/12/2025 09:28 Note Text: Mayank Sheehan MD [facility] Orthopedics - Orthopaedic Spine Surgeon [address] [facility], [address], [address], [facility] [address] [address] Phone: [phone] ([phone] FAX: [phone] Spine Surgery Post-op Follow-up Service Date: 01/12/2025 [...] mouth every 6 hours. 720 tablet 0 Excgb-7-TIG-EPA-Fish Oil (FISH OIL) 1,000 (120-180) mg cap [...] (C6) 5 5 Triceps (C7) 5 5 Web Manager (C8) 5 5 Interossei (T1) 5 5 [...] C4-6 PSF, C5 lami (more content not included)...[facility]04-15-2025 History of Present illness Narrative* Mayank Sheehan MD - 01/12/2025 9:26 AM EDT Images from the original note were not included. Mayank Sheehan MD [facility] Orthopedics - Orthopaedic Spine Surgeon [address] [facility], [address], [place] [address] Phone: [phone] FAX: [phone] Spine Surgery Post-op Follow-up Service Date: 01/12/2025 [...] mouth every 6 hours. 720 tablet 0 Gdmdt-3-FDC-EPA-Fish Oil (FISH OIL) 1,000 (120-180) mg cap [...] (C6) 5 5 Triceps (C7) 5 5 Web Manager (C8) 5 5 Interossei (T1) 5 5 [...] was generated all or in part using [employer] voice recognition software and [employer] dictation software. Please excuse any minor errors in spelling, grammar, or punctuation. * Hina Torres MA - 01/12/2025 9:05 AM EDT 59 y/o female presents to office for a routine post op appointment. She is wearing the cervical collar as prescribed. Xrays obtained. The pain is radiating down the right arm. She doesn't believe shehas had a muscle relaxer documented [facility]25 NoteHNO ID: [id number] Author: HINA TORRES MA Service: ? Author Type: Store Team Member Type: Progress Notes Filed: 01/12/2025 09:28 Note Text: 59 y/o female presents to office for a routine post op appointment. She is wearing the cervical collar as prescribed. Xrays obtained. The pain is radiating down the right arm. She doesn't believe she has had a muscle relaxerMLegacy [facility]04[facility] Telephone encounter Note* Telephone Encounter - Kaleb [...] a different pain medication. Kaleb Schultz LPN [facility]04-09-2025 Miscellaneous Notes* Telephone Encounter - Kaleb [...] medication. Kaleb Schultz LPN documented in this encounterMer[facility]04-09-2025 Telephone encounter Note * Telephone Encounter - Isaiah Quintana - 01/06/2025 1:29 PM EDT Spoke to patient I requested her to have x-rays done before seeing Dr Sheehan on 01-12-25, she will doso [facility]04-09-2025 Miscellaneous Notes* Telephone Encounter - Isaiah Quintana - 01/06/2025 1:29 PM EDT Spoke to patient I requested her to have x-rays done before seeing Dr Sheehan on 01-12-25, she will doso documented in this encounterMer[facility]04-02-2025 Evaluation + Plan note Future Scheduled Tests Laboratory* A1C Hemoglobin 12/30/24 * Complete Blood Count 12/30/24 * Lipid Profile 12/30/24 * Complete Metabolic Panel 12/30/24 [facility] 03-18-2025 NoteHNO ID: [id number] Author: MAYANK SHEEHAN MD Service: ? Author Type: Physician Type: Progress Notes Filed: 12/15/2024 11:19 Note Text: Mayank Sheehan MD [facility] General Orthopedics - Orthopaedic Spine Surgeon [address] [facility], [address], [address], [address], [place] [address] Phone: [phone] ([phone] FAX: [phone] Spine Surgery Post-op Follow-up Service Date: 12/15/2024 [...] day for 14 days. 28 capsule 0 Vkuss-7-SWG-EPA-Fish Oil (FISH OIL) 1,000 (120-180) mg cap [...] (C6) 5 5 Triceps (C7) 5 5 Web Manager (C8) 5 5 Interossei (T1) 5 5 [...] was generated all or in part using [employer] voice recognition software. Please excuse any minor errors in spelling, grammar, or punctuation.[facility]03-18-2025 History of Present illness Narrative* Mayank Sheehan MD - 12/15/2024 11:17 AM EDT Images from the original note were not included. Mayank Sheehan MD [facility] Orthopedics - Orthopaedic Spine Surgeon [address] [facility], [address], [place] [address] [address] [facility], [address] [address] Phone: [phone] ([phone] FAX: [phone] Spine Surgery Post-op Follow-up Service Date: 12/15/2024 [...] day for 14 days. 28 capsule 0 Nedwo-1-FJQ-EPA-Fish Oil (FISH OIL) 1,000 (120-180) mg cap [...] (C6) 5 5 Triceps (C7) 5 5 Web Manager (C8) 5 5 Interossei (T1) 5 5 [...] was generated all or in part using [employer] voice recognition software. Please excuse any minor errors in spelling, grammar, or punctuation. * Hina Torres MA - 12/15/2024 10:44 AM EDT 59 y/o female presents to office for routine post op. Sx 11/30/24 cervical fusion. She reports overall she is feeling much better. Still having occasional pain. documented in this encounterMercy [facility]03-18-2025 NoteHNO ID: [id number] Author: HINA TORRES MA Service: ? Author Type: Store Team Member Type: Progress Notes Filed: 12/15/2024 11:19 Note Text: 59 y/o female presents to office for routine post op. Sx 11/30/24 cervical fusion. She reports overall she is feeling much better. Still having occasional pain. [facility]03-18-2025 History of Present illness Narrative* Ute Moreau [...] PATIENT PRESENTS WITH AN IMPLANTABLE OR ATTACHED MANAGER TRAFFIC: No RADIOLOGY DEPARTMENT: General X-ray: Exam(s) Completed: Spine X-Ray(s): Cervical AP / LAT PERIPHERAL IV DATA: Not applicable SIGNED BY: ARIANNA Choi) December 15, 2024 10:16 AM documented in this encounterMercy Health [facility]03-18-2025 NoteHNO ID: [id number] Author: UTE MOREAU RT (R) Service: Radiology [...] PATIENT PRESENTS WITH AN IMPLANTABLE OR ATTACHED MANAGER TRAFFIC: No RADIOLOGY DEPARTMENT: General X-ray: Exam(s) Completed: Spine X-Ray(s): Cervical AP / LAT PERIPHERAL IV DATA: Not applicable SIGNED BY: RT Jimbo(R) December 15, 2024 10:16 [facility]03-12-2025 Telephone encounter Note* Telephone Encounter - Isaiah Quintana - 12/09/2024 2:24 PM EDT Called patient to inform her to have x-rays done before seeing Dr Sheehan on 12-15-24, She will do so. [facility]03-12-2025 Miscellaneous Notes* Telephone Encounter - Isaiah Quintana - 12/09/2024 2:24 PM EDT Called patient to inform her to have x-rays done before seeing Dr Sheehan on 12-15-24, She will do so. documented in this encounterMercy [facility]03-10-2025 Telephone encounter Note * Telephone Encounter [...] Panel: No results found for: UQCANN, UQBNZL, CDP3VCE, UQAMPH, UQMAMP, UQBUPRE, UQNORBUP, UQMTHD, UQEDDP, UQTRAM, UQDTRM, UQFNTL, UQNFTL, UQCODE, UQMORP, UQDCDN, UQHCOD, UQOXYC, UQHMOR, UQOXYM, UQCREA, UQPH, UQSPGR, UQOXID, UQSPQ No results found for: SUMM No results found for: SUMMAR None on file Please review and advise. Belkis Jones RN [facility]03-10-2025 Miscellaneous Notes* Telephone Encounter - Belkis [...] Panel: No results found for: UQCANN, UQBNZL, VMC7KXE, UQAMPH, UQMAMP, UQBUPRE, UQNORBUP, UQMTHD, UQEDDP, UQTRAM, UQDTRM, UQFNTL, UQNFTL, UQCODE, UQMORP, UQDCDN, UQHCOD, UQOXYC, UQHMOR, UQOXYM, UQCREA, UQPH, UQSPGR, UQOXID, UQSPQ No results found for: SUMM No results found for: SUMMAR None on file Please review and advise. Belkis Jones RN documented in this encounterMercy [facility]03-05-2025 NoteHNO ID: [id number] Author: KYUNG ROMANO APRN.CNP Service: Orthopaedic Surgery [...] - maintain until POD #5. Drain(s): 10 Luxembourger Hemovac - maintain until output <30 mL/shift. [...] (C6) 5 5 Triceps (C7) 5 5 Web Manager (C8) 5 5 Interossei (T1) 5 5 [...] Normal alignment. Kyung Romano SUZE Orthopaedic Spine [facility]03-05-2025 NoteHNO ID: [id number] Author: GARO MERRILL RN Service: Care Management [...] has no Advance Directives on file, per [place] law, LNOK is puja Potter @ [phone]. Patient was educated on who their LNOK [...] DATE: December 02, 2024 TIME: 7:10 AM [phone]. [facility]03-04-2025 NoteHNO ID: [id number] Author: GARO MERRILL RN Service: Care Management Author Type: Registered Nurse Type: Care Mgt Initial Assessment Filed: 12/01/2024 11:53 Note Text: CARE MANAGEMENT: ASSESSMENT AND DISCHARGE PLAN SERVICE DATE: December 01, 2024 SERVICE TIME: 11:51 AM PCP: Josephine Walter CNP, CNP Primary Contact: Extended Emergency Contact Information Primary Emergency Contact: KateTariq Address: [address] [place] [address] Mobile Relation: Son Admission Status: Inpatient Insurance Provider: MEDICARE A AND B Discharge Planning requested by: Per Department Practice Potential Transition Plans Home Advance Directives Current Advance Directive: None 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 Patient was educated on who their LNOK [...] DATE: December 01, 2024 TIME: 11:50 AM [phone]. [facility]03-04-2025 NoteHNO ID: [id number] Author: MAYANK SHEEHAN MD Service: Orthopaedic Surgery [...] - maintain until POD #5. Drain(s): 10 Luxembourger Hemovac - maintain until output <30 mL/shift. [...] (C6) 5 5 Triceps (C7) 5 5 Web Manager (C8) 5 5 Interossei (T1) 5 5 [...] None updated Kyung Romano APRN Orthopaedic Spine SurgerySt. [facility]03-03-2025 NoteHNO ID: [id number] Author: ALLI DOMINGUEZ DO Service: Cardiovascular Surgery [...] SIGNATURE: Alli Dominguez DO PATIENT NAME: Chidi Musa DATE: November 30, 2024 TIME: 3:29 PM CSN: [id number]. Charles Medical Center [facility]03-03-2025 NoteHNO ID: [id number] Author: BASIM WALTER APRN.CRNA Service: Cardiovascular Surgery Author Type: Nurse Fugitive Investigator Type: Anesthesia Procedure Notes Filed: 11/30/2024 15:26 Note Text: ANESTHESIOLOGY PROCEDURE NOTE PIV General Information Procedure Start Time/Medication Administration: 11/30/2024 2:40 PM Procedure End Time: 11/30/2024 2:40 PM Patient Location: OR Staffing ACCOUNTING ADMINISTRATOR: Basim Walter APRN.ACCOUNTING ADMINISTRATOR Performed by: DAVID Procedure Details Needle Size/Type: 18 gauge angiocath Orientation: Right Location: Forearm Imaging Guidance Used: No SIGNATURE: Basim Walter APRN.CRNA PATIENT NAME: Chidi Musa DATE: November 30, 2024 TIME: 3:26 PM CSN: [id number]. [facility] Medical [facility] [place]03-03-2025 NoteHNO ID: [id number] Author: BASIM WALTER APRN.CRNA Service: Cardiovascular Surgery Author Type: Nurse Fugitive Investigator Type: Anesthesia Procedure Notes Filed: 11/30/2024 15:25 Note Text: ANESTHESIOLOGY PROCEDURE NOTE Airway General Information Procedure Start Time/Medication Administration: 11/30/2024 2:38 PM Procedure End Time: 11/30/2024 2:38 PM Patient location during procedure: OR Staffing ACCOUNTING ADMINISTRATOR: Basim Walter APRN.ACCOUNTING ADMINISTRATOR Performed by: ACCOUNTING ADMINISTRATOR Indications and Patient Condition Indications for airway management: anesthesia Preoxygenated: yes anesthesia circuit Method: sleep Difficult Mask: No Final Airway Details Final airway type: endotracheal airway Final Endotracheal Airway: ETT Cuffed: yes Successful intubation technique: video laryngoscopy Devices used: [email or web address] ETT size (mm): 7.0 Measurement (cm): 21 Placement verified by: capnometry Cormack-Lehane Classification: grade I - full view of glottis Number of attempts at approach: 1 Airway not difficult SIGNATURE: Basim Walter APRN.CRNA PATIENT NAME: Chidi Musa DATE: November 30, 2024 TIME: 3:25 PM CSN: [id number]. [facility] Medical [facility] [place]02-28-2025 NoteHNO ID: [id number] Author: LINCOLN MORGAN RN Service: Nursing Author [...] your surgery. Pre-Surgery Med Instructions Medication Instructions Hdbup-7-RGZ-EPA-Fish Oil (FISH OIL) 1,000 (120-180) mg cap [...] directed. Bring copy of Living Will/Power of Special Weapons Unit Officer. Do not smoke or chew. If you [...] the Surgery Center. UPON ARRIVAL: Access to [facility] ([facility]) is located on [address] Sidewalk Inspector parking is available for your convenience from [...] back to the preope (more content not included)...[facility]02-26-2025 Telephone encounter Note* Telephone Encounter - Kaleb Schultz LPN - 11/25/2024 9:07 AM EST Left 2nd message for Dr. Walter's nurse requesting update on clearance form. Asked for nurse to return call. Kaleb Schultz LPN [facility]02-26-2025 Miscellaneous Notes* Telephone Encounter - Kaleb Schultz LPN - 11/25/2024 9:07 AM EST Left 2nd message for Dr. Walter's nurse requesting update on clearance form. Asked for nurse to return call. Kaleb Schultz LPN documented in this encounterMercy Health [facility]02-26-2025 NoteHNO ID: [id number] Author: STEPHY CARNES PA-C Service: ? Author Type: Physician Tire Spotter Type: Progress Notes Filed: 11/25/2024 07:19 Note [...] on 11/23/2024 6:10 AM by Schultz, Kaleb, MOLD BURNER: Cardiac clearance for 11/30/24 Neuro surgery w/Dr. SheehanSt. [facility]02-25-2025 Telephone encounter Note* Telephone Encounter - Kaleb Schultz LPN - 11/24/2024 10:21 AM EST Vascular surgeon gave instructions for patient to hold Plavix x 5 days, he would prefer for patientto continue ASA 81 mg if possible, but he gave ok for patient to also hold for [address] Sheehan prefers. Per Dr. Sheeahn, instructed patient to hold both Plavix and ASA for 5 days prior to surgery. He will have patient restart ASA on POD # 2. Patient voiced understanding. Kaleb Schultz LPN [facility]02-25-2025 Miscellaneous Notes* Telephone Encounter - Kaleb [...] understanding. Kaleb Schultz LPN documented in this encounterMercy Health [facility]02-19-2025 NoteHNO ID: [id number] Author: NEELAM TAN APRN.PASSENGER AGENT Service: ? Author Type: Nurse Practitioner Type: Progress Notes Filed: 11/18/2024 06:51 Note Text: Summary: update Surgery moved to 11/30 due to not having clearances.[facility]02-18-2025 Evaluation note* Diagnosis Onset Date Resolution Status [...] arterial disease chronic January 27, 2025 9:06am [facility] Work Phone: [phone]) 700-543602-17-2025 NoteHNO ID: [id number] Author: NEELAM TAN APRN.CNP Service: ? Author Type: Nurse Practitioner Type: Progress Notes Filed: 11/16/2024 09:17 Note Text: Summary: clearances Surgeon did request cardiac and vascular clearances- waiting on receipt.[facility]02-17-2025 NoteHNO ID: [id number] Author: NEELAM TAN APRN.CNP Service: ? Author [...] 6:49 PM by Provider, External, PA-C: EKG [facility]02-14-2025 Telephone encounter Note* Telephone Encounter - Celine Hamilton MA - 11/13/2024 5:52 AM EST [employer] No-Show Documentation Chidi Musa no showed for an appointment on 11/11/2024 with N/Jer Day APRN. at [facility]. The patient was was scheduled for [...] Hamilton MA November 13, 2024 5:53 AM [facility]02-14-2025 Miscellaneous Notes* Telephone Encounter - Celine Hamilton MA - 11/13/2024 5:52 AM EST [employer] No[employer]Show Documentation Chidi L Eva no showed for an appointment on 11/11/2024 with N/Jer Day APRN. at [facility]. The patient was was scheduled for [...] 13, 2024 5:53 AM documented in this encounterMercy Health [facility]02-13-2025 Telephone encounter Note * Telephone Encounter - Patience Schwarz - 11/12/2024 7:51 AM EST [employer] No[employer]Show Documentation Chidi L Eva no showed for an appointment on 11/11/2024 with Carmine Day APRN. at 4:00 pm. The patient was was scheduled for a consult. I called and spoke with the patient regarding missed appointment. Yes, patient given [facility] contact number [phone] to reschedule. The patient stated the reason [...] Patience Schwarz November 12, 2024 7:51 AM [facility]02-13-2025 Miscellaneous Notes* Telephone Encounter - Patience Schwarz - 11/12/2024 7:51 AM EST [employer] No-Show Documentation Chidi Paige esposito showed for an appointment on 11/11/2024 with Carmine Day APRN. at 4:00 pm. The patient was was scheduled for a consult. I called and spoke with the patient regarding missed appointment. Yes, patient given [facility] contact number [phone] to reschedule. The patient stated the reason [...] 12, 2024 7:51 AM documented in this encounterMercy Health [facility]02-10-2025 NoteHNO ID: [id number] Author: NEELAM TAN APRN.PASSENGER AGENT Service: ? 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 Jorge follows Coronary artery disease 1 stent placed 09/08/19 Dr. Maldonado follows, started managaing care in 12/2023 Depression PCP manages Diabetes ([facility]) PCP manages Generalized anxiety disorder PCP manages GERD (gastroesophageal reflux disease) controlled with meds PCP follows Heart attack (HCC) 05/2020 CABG X3-[place] Hypertension PCP manages/ controlled on meds Mixed hyperlipidemia controlled with meds PCP follows Neck pain Dr. Sheehan follows- reported falling off pickup truck bed 08/30/24 and has had problems since. muscle spasms down both arms/shoulders AVE (obstructive sleep apnea) sleep study completed 2023 in [facility]. due to anxiety/depression noncompliant with cpap. unable to tolerate mask Other emphysema ([facility]) Maria T Seay N.P. pulmonology [place]. 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 [address] Quintana follows-aspirin/plavix PAST SURGICAL HISTORY Procedure Laterality Date ADDTL NECK SPINE FUSION 06/30/2007 [place] ARTHROTOMY W/MENISCUS REPAIR KNEE Left 06/18/2007 CABG (3) VEIN GRAFTS AND ARTERIAL GRAFT(S) 05/2020 [facility]. Rendon PAST SURGICAL HISTORY OF Left 09/02/2024 stent placement Iliac artery PAST SURGICAL HISTORY OF 09/08/2019 1 stent placed in heart REMOVAL GALLBLADDER 04/11/1986 [facility] TOTAL ABDOM HYSTERECTOMY 08/30/2005 at [facility] History reviewed. No pertinent family [...] 11/09/24 0912 Medication Sig Last Dose Taking Lmreb-2-MWO-EPA-Fish Oil (FISH OIL) 1,000 (120-180) mg cap [...] not taking: Reported on (more content not included)...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 Jorge follows Coronary artery disease 1 stent placed 09/08/19 Dr. Maldonado follows, started managaing care in 12/2023 Depression PCP manages Diabetes ([facility]) PCP manages Generalized anxiety disorder PCP manages GERD (gastroesophageal reflux disease) controlled with meds PCP follows Heart attack ([facility]) 05/2020 CABG X3-[facility] Hypertension PCP manages/ controlled on meds Mixed hyperlipidemia controlled with meds PCP follows Neck pain Dr. Sheehan follows- reported falling off pickup truck bed 08/30/24 and has had problems since. musclespasms down both arms/shoulders AVE (obstructive sleep apnea) sleep study completed 2023 in [facility]. due to anxiety/depression noncompliant with cpap. unable to tolerate mask Other emphysema (HCC) Maria T Seay N.P. pulmonology [place]. 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 [address] Quintana follows-aspirin/plavix PAST SURGICAL HISTORY Procedure Laterality Date ADDTL NECK SPINE FUSION 06/30/2007 [place] ARTHROTOMY W/MENISCUS REPAIR KNEE Left 06/18/2007 CABG (3) VEIN GRAFTS & ARTERIAL GRAFT(S) 05/2020 [facility]. Rendon PAST SURGICAL HISTORY OF Left 09/02/2024 stent placement Iliac artery PAST SURGICAL HISTORY OF 09/08/2019 1 stent placed in heart REMOVAL GALLBLADDER 04/11/1986 [facility] TOTAL ABDOM HYSTERECTOMY 08/30/2005 at [facility] History reviewed. No pertinent family [...] 11/09/24 0912 Medication Sig Last Dose Taking Pvtwg-4-YPE-EPA-Fish Oil (FISH OIL) 1,000 (120-180) mg cap [...] by mouth. [facility] 11/04/24 no longer taking [facility] Patient not taking: Reported on 11/09/2024 cyclobenzaprine (FLEXERIL) 10 mg tablet [facility] 11/04/24 no longer taking [facility] doxycycline hyclate (VIBRAMYCIN) 100 mg capsule Take 1 capsule by mouth every 12 hours. [facility] 11/04/24no longer taking [facility] Patient not taking: Reported on 11/09/2024 losartan (COZAAR) 25 mg tablet Take 25 mg by mouth once daily. Patient not taking: Reported on 11/09/2024 metoprolol tartrate, short acting, (LOPRESSOR) 50 mg tablet Take 50 mg by mouth. [facility] 11/04/24 not taking js Patient not taking: Reported on 11/09/2024 montelukast (SINGULAIR) 10 mg tablet Take 10 mg by mouth. [facility] 11/04/24 no longer taking [facility] omeprazole (PRILOSEC) 40 mg capsule [facility] 11/04/24 no longer taking [facility] predniSONE (DELTASONE) 20 mg tablet [facility] 11/04/24 NOT TAKING JS Patient not taking: Reported on 11/09/2024 ticagrelor (BRILINTA) 90 mg tablet Take 90 mg by mouth once daily. Pt reports not taking [facility] 11/09 traZODone (DESYREL) 100 mg tablet Take 100 mg by mouth daily at bedtime. [facility] 11/04/24 NO LONGER TAKING [facility] Patient not taking: Reported on 11/09/2024 escitalopram oxalate (LEXAPRO) 10 mg tablet Take 10 mg by mouth every afternoon. Patient not taking: Reported on 11/09/2024 gabapentin (NEURONTIN) 300 mg capsule Take 600 mg by mouth three times a day. [facility] 11/04/24 NO LONGERTAKING [facility] Patient not taking: Reported on 11/09/2024 SITagliptin-metFORMIN (JANUMET XR) 50-1,000 mg TM24 Take 2 tablets by mouth once daily. [facility] [facility] 11/04/24duplicate entry d/t insurance [facility] tiotropium (SPIRIVA) 18 mcg inhalation capsule Inhale 18 mcg as instructed once daily. [facility] 11/04/24 no longer taking [facility] Patient not taking: Reported on 11/09/2024 [...] HX smoker, COPD Cardiovascular: Positive for: CAD; Tool Design Checker: Dr. Maldonado, HLD, Hypertension, PVD; Symptomatic claudication recurrent since Aug and Revascularization 08/2024 GI: Positive for GERD, dysphagia : No history of dysuria, frequency or incontinence,, stones or chronic kidney disease SPIRITUAL COUNSELOR: Negative for abnormal vaginal bleeding, abnormal vaginal [...] her surgery 10. Coronary artery disease involving [place] ira coronary artery of [place] heart without angina pectoris - ICD9: 414.01, [...] healthy diet and regular exercise Manuela Gamboa, SHEET SORTER.PASSENGER AGENT METS: Walk indoors, such as around the [...] your surgery. Pre-Surgery Med Instructions Medication Instructions Ngrxr-0-VYB-EPA-Fish Oil (FISH OIL) 1,000 (120-180) mg cap [...] noncompliant, HTN, HLD, CAD s/p PCI stent 2018/[place] s/p CABG x3 05/2020 on DAPT ([facility]), PAD s/p iliac artery stent/thrombectomy 08/2024 ([facility]), DM2 ([facility]), GERD, previous ACDF with residual [...] possibly artifactual, but given the history ofprior NC, mild nontransmural scarring/infarction cannot be entirely excluded. No baseline study available for comparison. No wall motion abnormality. Carotid US 2019: keny ICA 1-39 ECHO 04/2020, EF 55-60, mild MAC documented in this encounterMer[facility]02-10-[facility]25 Instructions* Patient Instructions* Manuela Gamboa APRN.EUGENIE [...] your surgery. Pre-Surgery Med Instructions Medication Instructions Sjvzg-8-SMP-EPA-Fish Oil (FISH OIL) 1,000 (120-180) mg cap [...] morning of your procedure. documented in this encounterMercy Health Clerm[facility]02-10-2025 NoteHNO ID: [id number] Author: MANUELA GAMBOA APRN.CNP Service: ? Author [...] your surgery. Pre-Surgery Med Instructions Medication Instructions Kkcfg-1-PKV-EPA-Fish Oil (FISH OIL) 1,000 (120-180) mg cap [...] updated instructions for the morning of your procedure.[facility]02-10-2025 NoteHNO ID: [id number] Author: NEELAM TAN APRN.EUGENIE Service: ? Author Type: Nurse Practitioner Type: Progress Notes Filed: 11/09/2024 11:01 Note Text: Summary: preanesthesia review C4-6 PSF, C5 lami 11/30 Qiana (4hrs) Patient is myelopathic per surgeon 59yo female, exsmoker, occ MJN. PMH: +AVE noncompliant, HTN, HLD, CAD s/p PCI stent 2018/[place] s/p CABG x3 05/2020 on DAPT ([facility]), [...] artifactual, but given the history of prior NC, mild nontransmural scarring/infarction cannot be entirely excluded. No baseline study available for comparison. No wall motion abnormality. Carotid US 2020: keny ICA 1-39 ECHO 04/2020, EF 55-60, mild [facility]01-31-2025 Telephone encounter Note* Telephone Encounter - Kaleb Schultz LPN - 10/30/2024 8:35 AM EST Scheduled C4-6 PSF and C5 laminectomy on 11/30/24 at [facility]. POV with Dr. Sheehan is scheduledon 12/15/24, [facility]. Instructions, surgery guide, and skin prep were given to patient at 10/27/24 office visit. All questions were answered at that time. Faxed medical clearance to Josephine Walter CNP, cardiac clearance to Dr. Andrew Maldonado and vascular clearance to Dr. Alejandro Quintana. Kaleb Schultz LPN [facility]01-31-2025 Miscellaneous Notes* Telephone Encounter - Kaleb Schultz LPN - 10/30/2024 8:35 AM EST Scheduled C4-6 PSF and C5 laminectomy on 11/30/24 at [facility]. POV with Dr. Sheehan is scheduledon 12/15/24, [facility]. Instructions, surgery guide, and skin prep were given to patient at 10/27/24 office visit. All questions were answered at that time. Faxed medical clearance to Josephine Walter CNP, cardiac clearance to Dr. Andrew Maldonado and vascular clearance to Dr. Alejandro Quintana. Kaleb Schultz LPN documented in this encounterMercy Health [facility]01-29-2025 Telephone encounter Note * Telephone Encounter - Isaiah Quintana - 10/28/2024 9:04 AM EST Spoke to patient to picker/puller her disc for the lumbar spine, she will pick this up the next time she is in to see Dr Sheehan. [facility]01-29-[facility]25 Miscellaneous Notes* Telephone Encounter - Isaiah Quintana - 10/28/2024 9:04 AM EST Spoke to patient to picker/puller her disc for the lumbar spine, she will pick this up the next time she is in to see Dr Sheehan. documented in this encounterMercy Health Clerm[facility]01-28-2025 NoteHNO ID: [id number] Author: MAYANK SHEEHAN MD Service: ? Author Type: Physician Type: Progress Notes Filed: 10/27/2024 16:25 Note Text: Mayank Sheehan MD [facility] Orthopaedic Surgery - Orthopaedic Spine Surgeon [address] [facility], [address], [address], [facility] [address] [id number] Phone: [phone] ([phone]) FAX: [phone] Spine Surgery Outpatient Note Service Date: 10/27/2024 [...] Take 600 mg (more content not included)... [facility]01-28-2025 History of Present illness Narrative* Mayakn Sheehan MD - 10/27/2024 2:16 PM EST Images from the original note were not included. Mayank Sheehan MD [facility] Orthopaedic Surgery - Orthopaedic Spine Surgeon [address] [facility], [address] [address] [address] [facility], [address], [place] [address] Phone: [phone] ([phone] FAX: [phone] Spine Surgery Outpatient Note Service Date: 10/27/2024 [...] (C6) 5 4 Triceps (C7) 5 4 Web Manager (C8) 5 5 Interossei (T1) 5 5 [...] cervical fusion, C5 laminectomy Bed/Position: Gilberto/Prone in [place] Imaging: C-arm Special Equipment: Globus Quartex Neuromonitoring: [...] was generated all or in part using [employer] voice recognition software. Please excuse any minor errors in spelling, grammar, or punctuation. * Estela Foy MA - 10/27/2024 1:34 PM EST 59 year old female pt here for cervical pain and results. documented in this encounterMercy Health Clerm[facility]01-28-2025 NoteHNO ID: [id number] Author: ESTELA FOY MA Service: ? Author Type: Store Team Member Type: Progress Notes Filed: 10/27/2024 16:25 Note Text: 59 year old female pt here for cervical pain and results.[facility] 10-20-2024 History of Present illness Narrative* Kevin [...] PATIENT PRESENTS WITH AN IMPLANTABLE OR ATTACHED MANAGER TRAFFIC: No RADIOLOGY DEPARTMENT: CT; Exam(s) Completed: Spine PERIPHERAL IV DATA: Not applicable SIGNED BY: RT Verónica(R) October 20, 2024 11:20 AM documented in this encounterMercy Health Clerm[facility] Hospital01-21-2025 NoteHNO ID: [id number] Author: KEVIN ROBLEDO RT(Cale) Service: ? Author Type: Hospice Educator Type: Progress Notes Filed: 10/20/2024 11:20 Note [...] PATIENT PRESENTS WITH AN IMPLANTABLE OR ATTACHED MANAGER TRAFFIC: No RADIOLOGY DEPARTMENT: CT; Exam(s) Completed: Spine PERIPHERAL IV DATA: Not applicable SIGNED BY: RT Verónica(R) October 20, 2024 11:20 [facility]01-10-2025 NoteHNO ID: [id number] Author: MAYANK SHEEHAN MD Service: ? Author Type: Physician Type: Progress Notes Filed: 10/09/2024 08:38 Note Text: Mayank Sheehan MD [facility] General Orthopaedic Surgery - Orthopaedic Spine Surgeon [address] [facility], [facility] [address], [place] [address] Phone: [phone] ([phone] FAX: [phone] Spine Surgery Outpatient Note Service Date: 10/09/2024 [...] in left iliac artery on 09/02/24 at [facility]. Currently on Plavix for 6 months. [...] daily. pantoprazole DR (PROT (more content not included)...[facility] 10-09-2024 History of Present illness Narrative* Mayank Sheehan MD - 10/09/2024 8:24 AM EST Images from the original note were not included. Mayank Sheehan MD [facility] General Orthopaedic Surgery - Orthopaedic Spine Surgeon [address] [facility], [address], [address], [address], [place] [address] Phone: [phone] ([phone]) FAX: [phone] Spine Surgery Outpatient Note Service Date: 10/09/2024 [...] in left iliac artery on 09/02/24 at [facility]. Currently on Plavixfor 6 months. Recently [...] was generated all or in part using [employer] voice recognition software. Please excuse any minor errors in spelling, grammar, or punctuation. This visit was conducted virtually. I spent 10 minutes on voice/video discussing with the patient. documented in this encounterMercy Health Clerm[facility] Hospital12-30-2024 Instructions* Patient Instructions* Newton Shine MD [...] Discuss with spine surgeon documented in this encounterMercy Health Clermont Hospital12-30-2024 NoteHNO ID: [id number] Author: NEWTON SHINE MD Service: ? Author Type: Anesthesiologist Type: Progress Notes Filed: 09/30/2024 10:26 Note Text: [facility] Department of Pain Management New Patient Consultation PATIENT: Chidi Musa : 1965 DATE OF SERVICE: 09/28/2024 REFERRING PRACTITIONER: Mayank Sheehan MD PRIMARY CARE PROVIDER: Josephine Walter CNP, PASSENGER AGENT CHIEF COMPLAINT: Patient presents with: Neck Pain: [...] NOSTRIL ONCE DAILY hyd (more content not included)...[facility]12-30-2024 History of Present illness Narrative* Newton Shine MD - 09/28/2024 8:14 AM EST Images from the original note were not included. [facility] Department of Pain Management New Patient Consultation PATIENT: Chidi Musa : 1965 DATE OF SERVICE: 09/28/2024 REFERRING PRACTITIONER: Mayank Sheehan MD PRIMARY CARE PROVIDER: Josephine Walter CNP, PASSENGER AGENT CHIEF COMPLAINT: Patient presents with: Neck Pain: [...] doctor 3. Interventions : Possible SUHA at V1-V5-nymimdtd after 6 months Discuss with spine surgeon [...] of your PCP/referring physician. documented in this encounterMercy Health Clerm[facility] Hospital12-23-2024 History of Present illness Narrative* Dariusz [...] PATIENT PRESENTS WITH AN IMPLANTABLE OR ATTACHED MANAGER TRAFFIC: No RADIOLOGY DEPARTMENT: MR; Exam(s) Completed: Spine: Cervical spine PERIPHERAL IV DATA: Not applicable SIGNED BY: RT Luan(R) September 21, 2024 11:03 AM documented in this encounterMercy Health Clerm[facility] Hospital12-23-2024 NoteHNO ID: [id number] Author: DARIUSZ MALDONADO RT(Cale) Service: ? Author [...] PATIENT PRESENTS WITH AN IMPLANTABLE OR ATTACHED MANAGER TRAFFIC: No RADIOLOGY DEPARTMENT: MR; Exam(s) Completed: Spine: Cervical spine PERIPHERAL IV DATA: Not applicable SIGNED BY: RT Luan(R) September 21, 2024 11:03 [facility]12-13-2024 Telephone encounter Note* Telephone Encounter - Rachael Pace - 09/11/2024 8:48 AM EST Spoke to the patient to see if she could picker/puller her records from [facility] as I have tried to get them and they are not coming through the fax machine properly. The patient said she will go pick them up and bring them to us when she has her next appointment. [facility]12-13-2024 Miscellaneous Notes* Telephone Encounter - Rachael Pace - 09/11/2024 8:48 AM EST Spoke to the patient to see if she could picker/puller her records from [facility] as I have tried to get them and they are not coming through the fax machine properly. The patient said she will go pick them up and bring them to us when she has her next appointment. documented in this encounterMercy Health Cl[facility]12-10-2024 History of Present illness Narrative* Debby [...] PATIENT PRESENTS WITH AN IMPLANTABLE OR ATTACHED MANAGER TRAFFIC: No RADIOLOGY DEPARTMENT: General X-ray: Exam(s) Completed: Spine X-Ray(s): Cervical AP / LAT / FLEX-EXT PERIPHERAL IV DATA: Not applicable SIGNED BY: RT Jose Manuel(R) September 08, 2024 10:05 AM documented in this encounterMercy Health Clerm[facility] Hospital12-10-2024 NoteHNO ID: [id number] Author: DEBBY ROMANO RT(R) Service: Radiology Author [...] PATIENT PRESENTS WITH AN IMPLANTABLE OR ATTACHED MANAGER TRAFFIC: No RADIOLOGY DEPARTMENT: General X-ray: Exam(s) Completed: Spine X-Ray(s): Cervical AP / LAT / FLEX-EXT PERIPHERAL IV DATA: Not applicable SIGNED BY: RT Jose Manuel(R) September 08, 2024 10:05 [facility]12-10-2024 NoteHNO ID: [id number] Author: MAYANK SHEEHAN MD Service: ? Author Type: Physician Type: Progress Notes Filed: 09/08/2024 09:16 Note Text: Mayank Sheehan MD [facility] Orthopaedic Surgery - Orthopaedic Spine Surgeon [address] [facility], [facility] [address], [facility] [address], [place] [address] Phone: [phone] ([phone]) FAX: [phone] Spine Surgery Outpatient Note Service Date: 09/08/2024 Referring Provider: [facility]o Stafford [facility] [address] Chief Complaint: Lumbar back pain with radiation [...] was previously seeing a spine surgeon in [place] who recommended multilevel decompression and fusion for [...] C5-T1 and L1-S1 dermato (more content not included)...[facility]12-10-2024 History of Present illness Narrative* Mayank Sheehan MD - 09/08/2024 9:12 AM EST Images from the original note were not included. Mayank Sheehan MD [facility] Orthopaedic Surgery - Orthopaedic Spine Surgeon [address] [facility], [address], [address], [place] [address], [place] [address] Phone: [phone] FAX: [phone] Spine Surgery Outpatient Note Service Date: 09/08/2024 Referring Provider: Romeo Stafford [address] [place] [address] [facility] [address] Chief Complaint: Lumbar back pain with radiation [...] Shewas previously seeing a spine surgeon in [place] who recommended multilevel decompression and fusion for [...] (C6) 5 4 Triceps (C7) 5 4 Web Manager (C8) 5 5 Interossei (T1) 5 5 [...] was generated all or in part using [employer] voice recognition software. Please excuse any minor [...] lumbar spine completed 09/04/2024. documented in this encounterMercy Health [facility]12-10-2024 NoteHNO ID: [id number] Author: HINA TORRES MA Service: ? Author Type: Store Team Member Type: Progress Notes Filed: 09/08/2024 09:16 Note [...] being made. Xrays of lumbar spine completed 09/04/2024.[facility]12-06-2024 History of Present illness Narrative* Claus Levi, [...] PATIENT PRESENTS WITH AN IMPLANTABLE OR ATTACHED MANAGER TRAFFIC: No RADIOLOGY DEPARTMENT: General X-ray: Exam(s) Completed: Spine X-Ray(s): Lumbar AP / LAT / L5-S1 / FLEX-EXT PERIPHERAL IV DATA: Not applicable SIGNED BY: RT Risa(R) September 04, 2024 8:05 AM documented in this encounterMercy Health Cl[facility]12-06-2024 NoteHNO ID: [id number] Author: CLAUS LEVI RT(R) Service: ? Author Type: Hospice Educator Type: Progress Notes Filed: 09/04/2024 08:18 Note [...] PATIENT PRESENTS WITH AN IMPLANTABLE OR ATTACHED MANAGER TRAFFIC: No RADIOLOGY DEPARTMENT: General X-ray: Exam(s) Completed: Spine X-Ray(s): Lumbar AP / LAT / L5-S1 / FLEX-EXT PERIPHERAL IV DATA: Not applicable SIGNED BY: RT Risa(R) September 04, 2024 8:05 [facility]12-05-2024 Telephone encounter Note* Telephone Encounter [...] said she will have them done at [facility] prior to her appointment. [facility]12-05-2024 Miscellaneous Notes* Telephone Encounter - Rachael [...] said she will have them done at [facility] prior to her appointment. documented in this encounterMercy Health Clermont Hospital12-04-2024 [facility] Medical Records Department [address] [place] [address] History Physical Exam 09/02/24 1024 MR#: [id number] Acct: [id number] Name: CHIDI MUSA Rep #: [id number] : 1965 59 From: Alejandro Quintana MD PCP: Josephine Walter, SCREEN PRINTING EQUIPMENT SETTER-C Status:REG [facility] Location: [facility] HPI - General HPI Narrative CHIDI MUSA, is a 59 F who presents with prior left common iliac artery stent with stenosis proximal to leading edge adjacent to bifurcation. She presents for angiogram with possible intervention to preserve stent patency [facility] Medical History Aortoiliac occlusive disease Atherosclerosis of [place] arteries of extremities with rest pain, left [...] % (Auto) 60.8, Lymph % (Auto) 28.1, Swisher % (Auto) 8.5, Eos % (Auto) 0.8, Baso % (Auto) 1.0, Absolute Neuts (auto) 5.6, Absolute Lymphs (auto) 2.5 (more content not included)... [facility]10-26-2024 Note. MICRO - Microbiology PROCEDURE: Stool [...] Locations *1: This test was performed at: [address], [address] [place], [place] [address]-24-2024 Note. MICRO - Microbiology PROCEDURE: Shiga Toxins 1 and 2 [[id number]: [id number] ^1 *1] SOURCE: Stool BODY SITE: COLLECTED [...] Locations *1: This test was performed at: [address], [address] [place], [place] [address]-25-2024 History of Present illness Narrative* Sanjay Asencio [...] go to ER now. documented in this encounterMercy Health Clermont HospitalEvaluation + Plan note Future Appointments Appointment Date:06/03/2024 08:00:00 AM Scheduled Provider:JOSEPHINE WALTER Location:[facility] Appointment Type:PC OV Future Scheduled Tests Laboratory* Albumin/Creatinine Ratio, Random Urine 03/13/24 [facility] Evaluation + Plan note Future Appointments Appointment Date:09/02/2024 08:30:00 AM Scheduled Provider:JOSEPHINE WALTER Location:[facility] Appointment Type:PC OV Future Scheduled Tests Laboratory* Albumin/Creatinine Ratio, Random Urine 03/13/24 Radiology* CT Angio Abd/Pelvis/Bilat Lower Extrem 05/28/24 * CT Angio Abd/Pelvis/Bilat Lower Extrem 04/08/24 [facility] Evaluation + Plan note Future Appointments Appointment Date:09/02/2024 08:30:00 AM Scheduled Provider:JOSEPHINE WALTER Location:[facility] Appointment Type:PC OV Diagnostic Tests Pending * Shiga Toxins 1 and 2 07/22/24 * Stool Culture 07/22/24 Future Scheduled Tests Laboratory* Albumin/Creatinine Ratio, Random Urine 03/13/24 Radiology* CT Angio Abd/Pelvis/Bilat Lower Extrem 05/28/24 * CT Angio Abd/Pelvis/Bilat Lower Extrem 04/08/24 [facility] Evaluation + Plan note Future Appointments Appointment Date:05/24/2025 10:00:00 AM Scheduled Provider:JOSEPHINE WALTER Location:[facility] Appointment Type:PC OV Future Scheduled Tests Laboratory* A1C Hemoglobin 12/30/24 * Complete Blood Count 12/30/24 * Lipid Profile 12/30/24 * Complete Metabolic Panel 12/30/24 Radiology* CT Angio Abd/Pelvis/Bilat Lower Extrem 05/28/24 [facility] Evaluation note* Diagnosis Procedure not carried out- Primary Procedure not carried out for other reasons documented in this encounter [facility]* Diagnosis Low back pain, unspecified back pain laterality, unspecified chronicity, unspecified whether sciatica present [facility]* Diagnosis Cervical myelopathy (HCC)- Primary Cervical spondylosis with myelopathy Spinal stenosis of lumbar region with neurogenic claudication Spinal stenosis, lumbar region, with neurogenic claudication Spinal stenosis of cervical region Spinal stenosis in cervical region documented in this encounter [facility]* Diagnosis Spinal stenosis of cervical region Spinal stenosis in cervical region documented in this encounter [facility]* Diagnosis Lumbosacral spondylosis without myelopathy- Primary Cervical spondylosis with myelopathy documented in this encounter [facility]* Diagnosis Cervical myelopathy (HCC)- Primary Cervical spondylosis with myelopathy 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 Spinal stenosis of cervical region Spinal stenosis in cervical region documented [facility] this [facility]* Diagnosis Cervical myelopathy (HCC)- Primary Cervical spondylosis with myelopathy 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 Spinal stenosis of cervical region Spinal stenosis in cervical region documented in this encounter [facility]* Diagnosis Preop testing Preoperative examination, [...] or larynx, unspecified Coronary artery disease involving sh[place] ira coronary artery of [place] ir[place] heart without angina pectoris PAD (peripheral artery disease) (HCC) Peripheral vascular disease, unspecified Hypertension, unspecified type Hyperlipidemia, unspecified hyperlipidemia type Cervical myelopathy (HCC) Cervical spondylosis with myelopathy 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 Spinal stenosis in cervical region documented [facility] this encounter [facility]* Diagnosis Cervical spondylosis with myelopathy [...] joint, shoulder region documented [facility] this [facility]* Diagnosis Lumbosacral spondylosis without myelopathy- Primary Lumbosacral spondylosis with radiculopathy documented in this encounter [facility] note* Diagnosis Spondylolisthesis of lumbar region Acquired spondylolisthesis Lumbosacral spondylosis with radiculopathy documented in this encounter [facility] note* Diagnosis Onset Date Resolution Status Admit Date Anxiety chronic August 04, 2025 7:35am Asthma chronic August 04, 2025 7:35am MDD (major depressive disorder) chronic August 04 7:35am AVE (obstructive sleep apnea) chroni c August 04, 2025 7:35am Smoking greater than 20 pack years chronic August 04 7:35am [facility] Work Phone: Hospital course Narrative No data available for this section [facility] Hospital Discharge instructions No data available for this section [facility] Progress note No data available for this section [facility] Reason for referral (narrative)* Diagnostic Procedure Only (Routine) - Closed Specialty Diagnoses / Procedures Referred By Contac t Referred To Contact MR IMAGING Diagnoses Spinal stenosis of cervical region Procedures MRI CERVICAL SPINE [facility] MRI SPINAL CANAL CERVICAL W/O CONTRAST Mayank Reyes MD [address] [place] [address] [place] [address] Referral ID Status Reason Start Date Expiration Date V isits Requested Visits Authorized [id number] Closed Auto-Generate d Referral 09/11/2024 11/10/2024 1 1 [facility] for referral (narrative)No reason for referral information availableWKindred Healthcare Work Phone: Reason for visit Narrative* Diagnostic Procedure Only (Routine) - Closed Specialty Diagnoses / Procedures Referred By Contac t Referred To Contact XR IMAGING Diagnoses Low back pain, unspecified back pain laterality, unspecified chronicity, unspecified whether sciatica present Procedures XR LUMBAR MOTION 4V AP/LAT/ FLEX/EXT RADEX SPINE LUMBOSACRAL MINIMUM 4 VIEWS Mayank Sheehan MD [address] [place] [address] [place] [address] Referral ID Status Reason Start Date Expiration Date V isits Requested Visits Authorized [id number] Closed Auto-Generate d Referral 09/04/2024 09/29/2024 1 1 [facility] for visit Narrative* Diagnostic Procedure Only (Routine) - Closed Specialty Diagnoses / Procedures Referred By Contac t Referred To Contact XR IMAGING Diagnoses Cervical myelopathy (HCC) Procedures XR CERV OTHER 4V AP/LAT/FLX/EXT RADEX SPINE CERVICAL 4 OR 5 VIEWS Mayank Sheehan MD [address] [place], [place] [id number] [place] [address] Referral ID Status Reason Start Date Expiration Date V isits Requested Visits Authorized [id number] Closed Auto-Generate d Referral 09/08/2024 09/29/2024 1 1 [facility] for visit Narrative* Diagnostic Procedure Only (Routine) - Closed Specialty Diagnoses / Procedures Referred By Contac t Referred To Contact MR IMAGING Diagnoses Spinal stenosis of cervical region Procedures MRI CERVICAL SPINE WO IVCON MRI SPINAL CANAL CERVICAL W/O CONTRAST MATRL Mayank Sheehan MD [address] [place] [address] [place] [address] Referral ID Status Reason Start Date Expiration Date V isits Requested Visits Authorized [id number] Closed Auto-Generate d Referral 09/11/2024 11/10/2024 1 1 [facility] for visit Narrative* Diagnostic Procedure Only (Routine) - Closed Specialty Diagnoses / Procedures Referred By Contac t Referred To Contact XR IMAGING Diagnoses S/P cervical spinal fusion Procedures XR CERV GENERAL 2V AP/LAT RADEX SPINE CERVICAL 2 OR 3 VIEWS Mayank Sheehan MD [address] [place] [id number] Phone: tel: fax: [place] [address] Referral ID Status Reason Start Date Expiration Date V isits Requested Visits Authorized [id number] Closed Auto-Generate d Referral 12/09/2024 01/08/2026 1 1 [facility] for visit Narrative* Diagnostic Procedure Only (Routine) - Closed Specialty Diagnoses / Procedures Referred By Contac t Referred To Contact XR IMAGING Diagnoses Status post cervical spinal fusion Chronic right shoulder pain Procedures XR SHOULDER GENERAL 3V OR MORE AP/TRUE AP/OTHER RIGHT RADEX SHOULDER COMPLETE MINIMUM 2 VIEWS Mayank Sheehan MD [address] [place] [address] Phone: tel: fax: [place] [address] Referral ID Status Reason Start Date Expiration Date V isits Requested Visits Authorized [id number] Closed Auto-Generate d Referral 01/12/2025 02/11/2026 1 1 [facility] for visit Narrative* Diagnostic Procedure Only (Routine) - Closed Specialty Diagnoses / Procedures Referred By Contac t Referred To Contact XR IMAGING Diagnoses S/P cervical spinal fusion Procedures XR CERV GENERAL 2V AP/LAT RADEX SPINE CERVICAL 2 OR 3 VIEWS Mayank Sheehan MD [address] [place] [address] Phone: tel: fax: [place] [address] Referral ID Status Reason Start Date Expiration Date V isits Requested Visits Authorized [id number] Closed Auto-Generate d Referral 01/05/2025 02/03/2026 1 1 [facility] for visit Narrative* MRI/CT (Routine) - Closed Specialty Diagnoses / Procedures Referred By Contac t Referred To Contact MR IMAGING Diagnoses Adverse effect of treatment, initial encounter Procedures MRI CERVICAL SPINE WO IVCON MRI SPINAL CANAL CERVICAL W/O CONTRAST MATRL Mayank Sheehan MD [address] [place] [address] Phone: tel: fax: [place] [address] Referral ID Status Reason Start Date Expiration Date V isits Requested Visits Authorized [id number] Closed Auto-Generate d Referral 02/23/2025 03/25/2026 1 [facility]/CT (Routine) - Closed Specialty Diagnoses / Procedures Referred By Cristina mac Referred To Contact MR IMAGING Diagnoses Spondylolisthesis of lumbar region Procedures MRI LUMBAR SPINE WO IVCON MRI SPINAL CANAL LUMBAR W/O CONTRAST MATERIAL Kobi Garsia PA-C [address] [facility] [place] [address] Phone: tel: fax: [place] [address] Referral ID Status Reason Start Date Expiration Date V isits Requested Visits Authorized [id number] Closed Auto-Generate d Referral 05/18/2025 06/17/2026 1 1 [facility] Summary Purpose Family History No Family History Records Found Brother (s) Status:Active Comments:0. Father Status:Active Comments:In good health. Mother Status:Active Comments: d. Coronary artery disease. Diabetes mellitus, Type II. did [place] age 55, very obese and heavy smoker. [...] Do you have a Healthcare Power of Special Weapons Unit Officer? No July 15, 2025 8:28am Advance Directives No November 04, 2024 8:58am Reason for Referral Specialty Diagnoses / Procedures Referred By Cristina mac Referred To Contact CT IMAGING Diagnoses Spinal stenosis of cervical region Procedures CT CERVICAL SPINE WO IVCON CT CERVICAL SPINE W/O CONTRAST MATERIAL Mayank Sheehan MD [address] [place] [address] [place] [address] Referral ID Status Reason Start Date Expiration Date Visits Requested Visits Authorized [id number] Pending Review Auto-Generat ed Referral 10/09/2024 11/08/2025 1 1 Specialty Diagnoses / Procedures Referred By Contac t Referred To Contact MR IMAGING Diagnoses Spinal stenosis of cervical region Procedures MRI CERVICAL SPINE WO IVCON MRI SPINAL CANAL CERVICAL W/O CONTRAST MATRL Mayank Sheehan MD [address] [place] [address] [place] [address] Referral ID Status Reason Start Date Expiration Date Visits Requested Visits Authorized [id number] Pending Review Auto-Generat ed Referral 10/08/2025 1 1 Specialty Diagnoses / Procedures Referred By Contac t Referred To Contact XR IMAGING Diagnoses Cervical myelopathy (HCC) Procedures XR CERV OTHER 4V AP/LAT/FLX/EXT RADEX SPINE CERVICAL 4 OR 5 VIEWS Mayank Sheehan MD [address] [place] [address] [place] [address] Referral ID Status Reason Start Date Expiration Date V isits Requested Visits Authorized [id number] Closed Auto-Generate d Referral 09/08/2024 09/29/2024 1 [...] section and content) DATE CREATED AUTHOR 06/19/2019 [facility] DATE CREATED AUTHOR AUTHOR'S ORGANIZ ATION 05/21/2020 [facility] DATE CREATED AUTHOR AUTHOR'S ORGANIZ ATION 09/02/2023 [facility] DATE CREATED AUTHOR AUTHOR'S ORGANIZ ATION 06/04/2024 [facility] ([place]) DATE CREATED AUTHOR AUTHOR'S ORGANIZ ATION 10/16/2024 [facility] DATE CREATED AUTHOR AUTHOR'S ORGANIZ ATION 02/24/2025 [facility] DATE CREATED AUTHOR AUTHOR'S ORGANIZ ATION 06/13/2025 [facility] DATE CREATED AUTHOR AUTHOR'S ORGANIZ ATION 06/13/2025 [facility] DATE CREATED AUTHOR AUTHOR'S ORGANIZ ATION 07/22/2025 [facility] DATE CREATED AUTHOR AUTHOR'S ORGANIZ ATION 08/11/2025 [facility] Patient Care team informatio n (unrecognized section and content) Antisqueak Applier Relationship Specialty Start Date End Date Josephine Walter CNP [address] [place] [address] PCP - General Family Medicine 03/24/24 Antisqueak Applier Relationship Specialty Start Date End Date Josephine Walter CNP [address] [place] [address] PCP - General Family Medicine 03/24/24 Antisqueak Applier Relationship Specialty Start Date End Date Josephine Walter CNP [address] [place] [address] PCP - General Family Medicine 03/24/24 Antisqueak Applier Relationship Specialty Start Date End Date Josephine Walter CNP [address] [place] [address] PCP - General Family Medicine 03/24/24 Antisqueak Applier Relationship Specialty Start Date End Date Josephine Walter CNP [address] [place] [address] PCP - General Family Medicine 03/24/24 Antisqueak Applier Relationship Specialty Start Date End Date Josephine Walter CNP [address] [place] [address] PCP - General Family Medicine 03/24/24 Antisqueak Applier Relationship Specialty Start Date End Date Josephine Walter CNP [address] [place] [address] PCP - General Family Medicine 03/24/24 Antisqueak Applier Relationship Specialty Start Date End Date Josephine Walter CNP [address] [place] [address] PCP - General Family Medicine 03/24/24 Antisqueak Applier Relationship Specialty Start Date End Date Josephine Walter CNP [address] [place] [address] PCP - General Family Medicine 03/24/24 Antisqueak Applier Relationship Specialty Start Date End Date Josephine Walter CNP [address] [place] [address] PCP - General Family Medicine 03/24/24 Alejandro Quintana MD [address] [place] [address] Vascular Surgery 10/27/24 Andrew Maldonado MD [address] [place] [address] Cardiology 10/27/24 Antisqueak Applier Relationship Specialty Start Date End Date Josephine Walter CNP [address] [place] [address] PCP - General Family Medicine 03/24/24 Alejandro Quintana MD [address] [place] [address] Vascular Surgery 10/27/24 Andrew Maldonado MD [address] [place] [address] Cardiology 10/27/24 Antisqueak Applier Relationship Specialty Start Date End Date Josephine Walter CNP [address] [place] [address] PCP - General Family Medicine 03/24/24 Alejandro Quintana MD [address] [place] [address] Vascular Surgery 10/27/24 Andrew Maldonado MD [address] [place] [address] Cardiology 10/27/24 Antisqueak Applier Relationship Specialty Start Date End Date Josephine Walter CNP [address] [place] [address] PCP - General Family Medicine 03/24/24 Alejandro Quintana MD [address] [place] [address] Vascular Surgery 10/27/24 Andrew Maldonado MD [address] [place] [address] Cardiology 10/27/24 Sharron Seay [address] [place] [address] Vascular Medicine 11/04/24 Antisqueak Applier Relationship Specialty Start Date End Date Josephine Walter CNP [address] [place] [address] PCP - General Family Medicine 03/24/24 Alejandro Quintana MD [address] [place] [address] Vascular Surgery 10/27/24 Andrew Maldonado MD [address] [place] [address] Cardiology 10/27/24 Sharron Seay [address] [place] [address] Vascular Medicine 11/04/24 Antisqueak Applier Relationship Specialty Start Date End Date Josephine Walter CNP [address] [place] [address] PCP - General Family Medicine 03/24/24 Alejandro Quintana MD [address] [place] [address] Vascular Surgery 10/27/24 Andrew Maldonado MD [address] [place] [address] Cardiology 10/27/24 Sharron Seay [address] [place] [address] Vascular Medicine 11/04/24 Antisqueak Applier Relationship Specialty Start Date End Date Josephine Walter CNP [address] [place] [address] PCP - General Family Medicine 03/24/24 Alejandro Quintana MD [address] [place] [address] Vascular Surgery 10/27/24 Andrew Maldonado MD [address] [place] [address] Cardiology 10/27/24 Sharron Seay [address] [place] [address] Vascular Medicine 11/04/24 Antisqueak Applier Relationship Specialty Start Date End Date Josephine Walter CNP [address] [place] [address] PCP - General Family Medicine 03/24/24 Alejandro Quintana MD [address] [place] [address] Vascular Surgery 10/27/24 Andrew Maldonado MD [address] [place] [address] Cardiology 10/27/24 Sharron Seay [address] [place] [address] Vascular Medicine 11/04/24 Antisqueak Applier Relationship Specialty Start Date End Date Josephine Walter CNP [address] [place] [address] PCP - General Family Medicine 03/24/24 Alejandro Quintana MD [address] [place] [address] Vascular Surgery 10/27/24 Andrew Maldonado MD [address] [place] [address] Cardiology 10/27/24 Sharron Seay [address] [place] [phone] Vascular Medicine 11/04/24 Antisqueak Applier Relationship Specialty Start Date End Date Josephine Walter CNP [address] [place] [address] PCP - General Family Medicine 03/24/24 Alejandro Quintana MD [address] [place] [address] Vascular Surgery 10/27/24 Andrew Maldonado MD [address] [place] [address] Cardiology 10/27/24 Sharron Seay [address] [place] [address] Vascular Medicine 11/04/24 Antisqueak Applier Relationship Specialty Start Date End Date Josephine Walter CNP [address] [place] [address] PCP - General Family Medicine 03/24/24 Alejandro Quintana MD [address] [place] [address] Vascular Surgery 10/27/24 Andrew Maldonado MD [address] [place] [address] Cardiology 10/27/24 Sharron Seay [address] [place] [address] Vascular Medicine 11/04/24 Antisqueak Applier Relationship Specialty Start Date End Date Josephine Walter CNP [address] [place] [address] PCP - General Family Medicine 03/24/24 Alejandro Quintana MD [address] [place] [address] Vascular Surgery 10/27/24 Andrew Maldonado MD [address] [place] [address] Cardiology 10/27/24 Sharron Seay [address] [place] [address] Vascular Medicine 11/04/24 Antisqueak Applier Relationship Specialty Start Date End Date Josephine Walter CNP [address] [place] [address] PCP - General Family Medicine 03/24/24 Alejandro Quintana MD [address] [place] [address] Vascular Surgery 10/27/24 Andrew Maldonado MD [address] [place] [address] Cardiology 10/27/24 Sharron Seay [address] [place] [phone] Vascular Medicine 11/04/24 Antisqueak Applier Relationship Specialty Start Date End Date Josephine Walter CNP [address] [place] [address] PCP - General Family Medicine 03/24/24 Alejandro Quintana MD [address] [place] [address] Vascular Surgery 10/27/24 Andrew Maldonado MD [address] [place] [address] Cardiology 10/27/24 Sharron Seay [address] [place] [phone] Vascular Medicine 11/04/24 Antisqueak Applier Relationship Specialty Start Date End Date Josephine Walter CNP [address] [place] [address] PCP - General Family Medicine 03/24/24 Alejandro Quintana MD [address] [place] [address] Vascular Surgery 10/27/24 Andrew Maldonado MD [address] [place] [address] Cardiology 10/27/24 Sharron Seay [address] [place] [address] Vascular Medicine 11/04/24 Antisqueak Applier Relationship Specialty Start Date End Date Josephine Walter CNP [address] [place] [address] PCP - General Family Medicine 03/24/24 Alejandro Quintana MD [address] [place] [address] Vascular Surgery 10/27/24 Andrew Maldonado MD [address] [place] [address] Cardiology 10/27/24 Sharron Seay [address] [place] [address] Vascular Medicine 11/04/24 Antisqueak Applier Relationship Specialty Start Date End Date Josephine Walter CNP [address] [place] [address] PCP - General Family Medicine 03/24/24 Alejandro Quintana MD [address] [place] [address] Vascular Surgery 10/27/24 Andrew Maldonado MD [address] [place] [address] Cardiology 10/27/24 Sharron Seay [address] [place] [address] Vascular Medicine 11/04/24 Antisqueak Applier Relationship Specialty Start Date End Date Josephine Walter CNP [address] [place] [address] PCP - General Family Medicine 03/24/24 Alejandro Quintana MD [address] [place] [address] Vascular Surgery 10/27/24 Andrew Maldonado MD [address] [place] [address] Cardiology 10/27/24 Sharron Seay [address] [place] [address] Vascular Medicine 11/04/24 Antisqueak Applier Relationship Specialty Start Date End Date Josephine Walter CNP [address] [place] [address] PCP - General Family Medicine 03/24/24 Alejandro Quintana MD [address] [place] [address] Vascular Surgery 10/27/24 Andrew Maldonado MD [address] [place] [address] Cardiology 10/27/24 Sharron Seay [address] [place] [address] Vascular Medicine 11/04/24 Antisqueak Applier Relationship Specialty Start Date End Date Josephine Walter CNP [address] [place] [address] PCP - General Family Medicine 03/24/24 Alejandro Quintana MD [address] [place] [address] Vascular Surgery 10/27/24 Andrew Maldonado MD [address] [place] [address] Cardiology 10/27/24 Sharron Seay [address] [place] [address] Vascular Medicine 11/04/24 Antisqueak Applier Relationship Specialty Start Date End Date Josephine Walter CNP [address] [place] [address] PCP - General Family Medicine 03/24/24 Alejandro Quintana MD [address] [place] [address] Vascular Surgery 10/27/24 Andrew Maldonado MD [address] [place] [address] Cardiology 10/27/24 Sharron Seay [address] [place] [address] Vascular Medicine 11/04/24 Antisqueak Applier Relationship Specialty Start Date End Date Josephine Walter CNP [address] [place] [address] PCP - General Family Medicine 03/24/24 Alejandro Quintana MD [address] [place] [address] Vascular Surgery 10/27/24 Andrew Maldonado MD [address] [place] [address] Cardiology 10/27/24 Sharron Seay [address] [place] [address] Vascular Medicine 11/04/24 Antisqueak Applier Relationship Specialty Start Date End Date Josephine Walter CNP [address] [place] [address] PCP - General Family Medicine 03/24/24 Alejandro Quintana MD [address] [place] [address] Vascular Surgery 10/27/24 Andrew Maldonado MD [address] [place] [address] Cardiology 10/27/24 Sharron Seay [address] [place] [address] Vascular Medicine 11/04/24 Antisqueak Applier Relationship Specialty Start Date End Date Josephine Walter CNP [address] [place] [address] PCP - General Family Medicine 03/24/24 Alejandro Quintana MD [address] [place] [address] Vascular Surgery 10/27/24 Andrew Maldonado MD [address] [place] [address] Cardiology 10/27/24 Sharron Seay [address] [place] [address] Vascular Medicine 11/04/24 Antisqueak Applier Relationship Specialty Start Date End Date Josephine Walter CNP [address] [place] [address] PCP - General Family Medicine 03/24/24 Alejandro Quintana MD [address] [place] [address] Vascular Surgery 10/27/24 Andrew Maldonado MD [address] [place] [address] Cardiology 10/27/24 Sharron Seay [address] [place] [address] Vascular Medicine 11/04/24 Antisqueak Applier Relationship Specialty Start Date End Date Josephine Walter CNP [address] [place] [address] [place] [address] PCP - General Family Medicine 03/24/24 Alejandro Quintana MD [address] [place] [address] Vascular Surgery 10/27/24 Andrew Maldonado MD [address] [place] [address] Cardiology 10/27/24 Sharron Seay [address] [place] [address] Vascular Medicine 11/04/24 Antisqueak Applier Relationship Specialty Start Date End Date Josephine Walter CNP [address] [place] [address] PCP - General Family Medicine 03/24/24 Alejandro Quintana MD [address] [place] [address] Vascular Surgery 10/27/24 Andrew Maldonado MD [address] [place] [address] Cardiology 10/27/24 Sharron Seay [address] [place] [address] Vascular Medicine 11/04/24 Antisqueak Applier Relationship Specialty Start Date End Date Josephine Walter CNP [address] [place] [address] PCP - General Family Medicine 03/24/24 Alejandro Quintana MD [address] [place] [address] Vascular Surgery 10/27/24 Andrew Maldonado MD [address] [place] [address] Cardiology 10/27/24 Sharron Seay [address] [place] [address] Vascular Medicine 11/04/24 Antisqueak Applier Relationship Specialty Start Date End Date Josephine Walter CNP [address] [place] [address] PCP - General Family Medicine 03/24/24 Alejandro Quintana MD [address] [place] [address] Vascular Surgery 10/27/24 Andrew Maldonado MD [address] [place] [address] Cardiology 10/27/24 Sharron Seay [address] [place] [address] Vascular Medicine 11/04/24 Team Status: Active Member Role Status Dates Josephine Walter SCREEN PRINTING EQUIPMENT SETTER, SCREEN PRINTING EQUIPMENT SETTER-C Primary Care Provider Activ e Team Status: Inactive Member Role Status Dates Josephine Walter NP, SCREEN PRINTING EQUIPMENT SETTER-C Referring Provider Active Start: November 17, 2024 End: November 17, 2024 HEIDI Allen Attending Provider Active Star t: November 17, 2024 End: November 17, 2024 Team Status: Inactive Member Role Status Dates Dr. Andrew Maldonado MD Attending Provider Active Start: January 27, 2025 End: January 27, 2025 Josephine Walter NP SCREEN PRINTING EQUIPMENT SETTER-C Primary Care Provider Activ e Start: January 27, 2025 End: January 27, 2025 Josephine Walter NP SCREEN PRINTING EQUIPMENT SETTER-C Referring Provider Active Start: January 27, 2025 End: January 27, 2025 Team Status: Inactive Member Role Status Dates Josephine Walter NP SCREEN PRINTING EQUIPMENT SETTER-C Primary Care Provider Activ e Start: March 04, 2025 End: March 04, 2025 HEIDI Allen Attending Provider Active Star t: March 04, 2025 End: March 04, 2025 HEIDI Allen Referring Provider Active Star t: March 04, 2025 End: March 04, 2025 Team Status: Active Member Role Status Dates Josephine Walter NP SCREEN PRINTING EQUIPMENT SETTER-C Primary Care Provider Activ e Start: March 04, 2025 Dr. Alejandro Quintana MD Attending Provider Active S tart: March 04, 2025 Antisqueak Applier Relationship Specialty Start Date End Date Josephine Walter CNP [address] [place] [address] PCP - General Family Medicine 03/24/24 Alejandro Quintana MD [address] [place], [place] [address] Vascular Surgery 10/27/24 Adnrew Maldonado MD [address] [place], [place] [address] Cardiology 10/27/24 Sharron Seay [address] [place] [phone] Vascular Medicine 11/04/24 Antisqueak Applier Relationship Specialty Start Date End Date Josephine Walter CNP [address] [place] [address], [place] [address] PCP - General Family Medicine 03/24/24 Alejandro Quintana MD [address] [place] [address] Vascular Surgery 10/27/24 Andrew Maldonado MD [address] [place], [place] [address] Cardiology 10/27/24 Geena Sharron [address] [place] [address] Vascular Medicine 11/04/24 Team Status: Active Member Role/Relationship Status Dates Josephine Walter NP, SCREEN PRINTING EQUIPMENT SETTER-C Primary Care Provider Activ e Team Status: Inactive Member Role/Relationship Status Dates Dr. Andrew Maldonado MD Attending Provider Active Start: January 27, 2025 End: January 27, 2025 Josephine Walter NP, SCREEN PRINTING EQUIPMENT SETTER-C Primary Care Provider Activ e Start: January 27, 2025 End: January 27, 2025 Josephine Walter NP, SCREEN PRINTING EQUIPMENT SETTER-C Referring Provider Active Start: January 27, 2025 End: January 27, 2025 Team Status: Inactive Member Role/Relationship Status Dates Josephine Walter NP, SCREEN PRINTING EQUIPMENT SETTER-C Primary Care Provider Activ e Start: March 04, 2025 End: March 04, 2025 HEIDI Allen Attending Provider Active Star t: March 04, 2025 End: March 04, 2025 HEIDI Allen Referring Provider Active Star t: March 04, 2025 End: March 04, 2025 Team Status: Active Member Role/Relationship Status Dates Josephine Walter NP, SCREEN PRINTING EQUIPMENT SETTER-C Primary Care Provider Activ e Start: March 04, 2025 Dr. Alejandro Quintana MD Attending Provider Active S tart: March 04, 2025 HEIDI Allen Referring Provider Active Star t: March 04, 2025 Team Status: Inactive Member Role/Relationship Status Dates Josephine Jose Angel SCREEN PRINTING EQUIPMENT SETTER, SCREEN PRINTING EQUIPMENT SETTER-C Primary Care Provider Activ e Start: April 01, 2025 End: April 01, 2025 Josephine Walter SCREEN PRINTING EQUIPMENT SETTER, SCREEN PRINTING EQUIPMENT SETTER-C Referring Provider Active Start: April 01, 2025 End: April 01, 2025 Susanne Rabago SCREEN PRINTING EQUIPMENT SETTER, SCREEN PRINTING EQUIPMENT SETTER-C Attending Provider Active Start: April 01, 2025 End: April 01, 2025 Antisqueak Applier Relationship Specialty Start Date End Date Josephine Walter CNP [address] [place] [address] PCP - General Family Medicine 03/24/24 Alejandro Quintana MD [address] [place], [place] [address] Vascular Surgery 10/27/24 Andrew Maldonado MD [address] [place] [address] Cardiology 10/27/24 Sharron Seya [address] [place] [phone] Vascular Medicine 11/04/24 Antisqueak Applier Relationship Specialty Start Date End Date Josephine Walter CNP [address] [place] [address] PCP - General Family Medicine 03/24/24 Alejandro Quintana MD [address] [place] [address] Vascular Surgery 10/27/24 Andrew Maldonado MD [address] [place] [address] Cardiology 10/27/24 Sharron Seay [address] [place] [address] Vascular Medicine 11/04/24 Antisqueak Applier Relationship Specialty Start Date End Date Josephine Walter CNP [address] [place] [address] PCP - General Family Medicine 03/24/24 Alejandro Quintana MD [address] [place] [address] Vascular Surgery 10/27/24 Andrew Maldonado MD [address] [place] [address] Cardiology 10/27/24 Sharron Seay [address] [place] [address] Vascular Medicine 11/04/24 Antisqueak Applier Relationship Specialty Start Date End Date Josephine Walter CNP [address] [place] [address] PCP - General Family Medicine 03/24/24 Alejandro Quintana MD [address] [place] [address] Vascular Surgery 10/27/24 Andrew Maldonado MD [address] [place] [address] Cardiology 10/27/24 Sharron Seay [address] [place] [address] Vascular Medicine 11/04/24 Antisqueak Applier Relationship Specialty Start Date End Date Josephine Walter CNP [address] [place] [address] PCP - General Family Medicine 03/24/24 Alejandro Quintana MD [address] [place] [address] Vascular Surgery 10/27/24 Andrew Maldonado MD [address] [place] [address] Cardiology 10/27/24 Sharron Seay [address] [place] [address] Vascular Medicine 11/04/24 Antisqueak Applier Relationship Specialty Start Date End Date Josephine Walter CNP [address] [place] [address] PCP - General Family Medicine 03/24/24 Alejandro Quintana MD [address] [place] [address] Vascular Surgery 10/27/24 Andrew Maldonado MD [address] [place] [address] Cardiology 10/27/24 Sharron Seay [address] [place] [address] Vascular Medicine 11/04/24 Antisqueak Applier Relationship Specialty Start Date End Date Josephine Walter CNP [address] [place] [address] PCP - General Family Medicine 03/24/24 Alejandro Quintana MD [address] [place] [address] Vascular Surgery 10/27/24 Andrew Maldonado MD [address] [place] [address] Cardiology 10/27/24 Sharron Seay [address] [place] [phone] Vascular Medicine 11/04/24 Antisqueak Applier Relationship Specialty Start Date End Date Josephine Walter CNP [address] [place] [address] PCP - General Family Medicine 03/24/24 Alejandro Quintana MD [address] [place] [address] Vascular Surgery 10/27/24 Andrew Maldonado MD [address] [place] [address] Cardiology 10/27/24 Sahrron Seay [address] [place] [address] Vascular Medicine 11/04/24 Antisqueak Applier Relationship Specialty Start Date End Date Josephine Walter CNP [address] [place] [address] PCP - General Family Medicine 03/24/24 Alejandro Quintana MD [address] [place], [place] [address] Vascular Surgery 10/27/24 Andrew Maldonado MD [address] [place], [place] [id number] Cardiology 10/27/24 Sharron Seay [address] [place] [phone] Vascular Medicine 11/04/24 Team Status: Active Member Role/Relationship Status Dates Josephine Walter NP, [employer]TER[employer] Primary care physician Acti ve Team Status: Inactive Member Role/Relationship Status Dates Josephine Walter NP, [employer]TER[employer]C Primary care physician Acti ve Start: July 19, 2025 End: July 19, 2025 Dr. Moiz Rodriguez DO Attending physician Active Start: July 19, 2025 End: July 19, 2025 Dr. Moiz Rodriguez DO Referring Provider Active Start: July 19, 2025 End: July 19, 2025 Team Status: Inactive Member Role/Relationship Status Dates Josephine Walter NP, [employer] SETTER-C Primary care physician Acti ve Start: August 04, 2025 End: August 04, 2025 Josephine Walter NP, [employer]CRE[employer]MENT SETTER-C Referring Provider Active Start: August 04, 2025 End: August 04, 2025 Sharron Seay NP, [employer]MENT SETTER-C Attending physician Active Start: August 04, 2025 End: August 04, 2025 Source Comments (unrecognize d section and content) In the event this informatio n is protected by the Federal Confidentiality of Alcohol and Drug Abuse Patient Records regulations: The Federal rules restrict any use of the information to criminally investigate or prosecute any alcohol or drug abuse patient.[facility] the event this information is protected by the Federal Confidentiality of Alcohol and Drug Abuse Patient Records regulations: The Federal rules restrict any use of the information to criminally investigate or prosecute any alcohol or drug abuse patient.[facility] HospitalIn the event this information is protected by the Federal Confidentiality of Alcohol and Drug Abuse Patient Records regulations: The Federal rules restrict any use of the information to criminally investigate or prosecute any alcohol or drug abuse patient.[facility] HospitalIn the event this information is protected by the Federal Confidentiality of Alcohol and Drug Abuse Patient Records regulations: The Federal rules restrict any use of the information to criminally investigate or prosecute any alcohol or drug abuse patient.[facility] HospitalIn the event this information is protected by the Federal Confidentiality of Alcohol and Drug Abuse Patient Records regulations: The Federal rules restrict any use of the information to criminally investigate or prosecute any alcohol or drug abuse patient.[facility] HospitalIn the event this information is protected by the Federal Confidentiality of Alcohol and Drug Abuse Patient Records regulations: The Federal rules restrict any use of the information to criminally investigate or prosecute any alcohol or drug abuse patient.[facility] HospitalIn the event this information is protected by the Federal Confidentiality of Alcohol and Drug Abuse Patient Records regulations: The Federal rules restrict any use of the information to criminally investigate or prosecute any alcohol or drug abuse patient.[facility] HospitalIn the event this information is protected by the Federal Confidentiality of Alcohol and Drug Abuse Patient Records regulations: The Federal rules restrict any use of the information to criminally investigate or prosecute any alcohol or drug abuse patient.[facility] HospitalIn the event this information is protected by the Federal Confidentiality of Alcohol and Drug Abuse Patient Records regulations: The Federal rules restrict any use of the information to criminally investigate or prosecute any alcohol or drug abuse patient.[facility] HospitalIn the event this information is protected by the Federal Confidentiality of Alcohol and Drug Abuse Patient Records regulations: The Federal rules restrict any use of the information to criminally investigate or prosecute any alcohol or drug abuse patient.[facility] HospitalIn the event this information is protected by the Federal Confidentiality of Alcohol and Drug Abuse Patient Records regulations: The Federal rules restrict any use of the information to criminally investigate or prosecute any alcohol or drug abuse patient.[facility] HospitalIn the event this information is protected by the Federal Confidentiality of Alcohol and Drug Abuse Patient Records regulations: The Federal rules restrict any use of the information to criminally investigate or prosecute any alcohol or drug abuse patient.[facility] HospitalIn the event this information is protected by the Federal Confidentiality of Alcohol and Drug Abuse Patient Records regulations: The Federal rules restrict any use of the information to criminally investigate or prosecute any alcohol or drug abuse patient.[facility] HospitalIn the event this information is protected by the Federal Confidentiality of Alcohol and Drug Abuse Patient Records regulations: The Federal rules restrict any use of the information to criminally investigate or prosecute any alcohol or drug abuse patient.[facility] HospitalIn the event this information is protected by the Federal Confidentiality of Alcohol and Drug Abuse Patient Records regulations: The Federal rules restrict any use of the information to criminally investigate or prosecute any alcohol or drug abuse patient.[facility] HospitalIn the event this information is protected by the Federal Confidentiality of Alcohol and Drug Abuse Patient Records regulations: The Federal rules restrict any use of the information to criminally investigate or prosecute any alcohol or drug abuse patient.[facility] HospitalIn the event this information is protected by the Federal Confidentiality of Alcohol and Drug Abuse Patient Records regulations: The Federal rules restrict any use of the information to criminally investigate or prosecute any alcohol or drug abuse patient.[facility] HospitalIn the event this information is protected by the Federal Confidentiality of Alcohol and Drug Abuse Patient Records regulations: The Federal rules restrict any use of the information to criminally investigate or prosecute any alcohol or drug abuse patient.[facility] HospitalIn the event this information is protected by the Federal Confidentiality of Alcohol and Drug Abuse Patient Records regulations: The Federal rules restrict any use of the information to criminally investigate or prosecute any alcohol or drug abuse patient.[facility] HospitalIn the event this information is protected by the Federal Confidentiality of Alcohol and Drug Abuse Patient Records regulations: The Federal rules restrict any use of the information to criminally investigate or prosecute any alcohol or drug abuse patient.[facility] HospitalIn the event this information is protected by the Federal Confidentiality of Alcohol and Drug Abuse Patient Records regulations: The Federal rules restrict any use of the information to criminally investigate or prosecute any alcohol or drug abuse patient.[facility] HospitalIn the event this information is protected by the Federal Confidentiality of Alcohol and Drug Abuse Patient Records regulations: The Federal rules restrict any use of the information to criminally investigate or prosecute any alcohol or drug abuse patient.[facility] HospitalIn the event this information is protected by the Federal Confidentiality of Alcohol and Drug Abuse Patient Records regulations: The Federal rules restrict any use of the information to criminally investigate or prosecute any alcohol or drug abuse patient.[facility] HospitalIn the event this information is protected by the Federal Confidentiality of Alcohol and Drug Abuse Patient Records regulations: The Federal rules restrict any use of the information to criminally investigate or prosecute any alcohol or drug abuse patient.[facility] HospitalIn the event this information is protected by the Federal Confidentiality of Alcohol and Drug Abuse Patient Records regulations: The Federal rules restrict any use of the information to criminally investigate or prosecute any alcohol or drug abuse patient.[facility] HospitalIn the event this information is protected by the Federal Confidentiality of Alcohol and Drug Abuse Patient Records regulations: The Federal rules restrict any use of the information to criminally investigate or prosecute any alcohol or drug abuse patient.[facility] HospitalIn the event this information is protected by the Federal Confidentiality of Alcohol and Drug Abuse Patient Records regulations: The Federal rules restrict any use of the information to criminally investigate or prosecute any alcohol or drug abuse patient.[facility] HospitalIn the event this information is protected by the Federal Confidentiality of Alcohol and Drug Abuse Patient Records regulations: The Federal rules restrict any use of the information to criminally investigate or prosecute any alcohol or drug abuse patient.[facility] HospitalIn the event this information is protected by the Federal Confidentiality of Alcohol and Drug Abuse Patient Records regulations: The Federal rules restrict any use of the information to criminally investigate or prosecute any alcohol or drug abuse patient.[facility] HospitalIn the event this information is protected by the Federal Confidentiality of Alcohol and Drug Abuse Patient Records regulations: The Federal rules restrict any use of the information to criminally investigate or prosecute any alcohol or drug abuse patient.[facility] HospitalIn the event this information is protected by the Federal Confidentiality of Alcohol and Drug Abuse Patient Records regulations: The Federal rules restrict any use of the information to criminally investigate or prosecute any alcohol or drug abuse patient.[facility] HospitalIn the event this information is protected by the Federal Confidentiality of Alcohol and Drug Abuse Patient Records regulations: The Federal rules restrict any use of the information to criminally investigate or prosecute any alcohol or drug abuse patient.[facility] HospitalIn the event this information is protected by the Federal Confidentiality of Alcohol and Drug Abuse Patient Records regulations: The Federal rules restrict any use of the information to criminally investigate or prosecute any alcohol or drug abuse patient.[facility] HospitalIn the event this information is protected by the Federal Confidentiality of Alcohol and Drug Abuse Patient Records regulations: The Federal rules restrict any use of the information to criminally investigate or prosecute any alcohol or drug abuse patient.[facility] HospitalIn the event this information is protected by the Federal Confidentiality of Alcohol and Drug Abuse Patient Records regulations: The Federal rules restrict any use of the information to criminally investigate or prosecute any alcohol or drug abuse patient.[facility] HospitalIn the event this information is protected by the Federal Confidentiality of Alcohol and Drug Abuse Patient Records regulations: The Federal rules restrict any use of the information to criminally investigate or prosecute any alcohol or drug abuse patient.[facility] HospitalIn the event this information is protected by the Federal Confidentiality of Alcohol and Drug Abuse Patient Records regulations: The Federal rules restrict any use of the information to criminally investigate or prosecute any alcohol or drug abuse patient.[facility] HospitalIn the event this information is protected by the Federal Confidentiality of Alcohol and Drug Abuse Patient Records regulations: The Federal rules restrict any use of the information to criminally investigate or prosecute any alcohol or drug abuse patient.[facility] HospitalIn the event this information is protected by the Federal Confidentiality of Alcohol and Drug Abuse Patient Records regulations: The Federal rules restrict any use of the information to criminally investigate or prosecute any alcohol or drug abuse patient.[facility] HospitalIn the event this information is protected by the Federal Confidentiality of Alcohol and Drug Abuse Patient Records regulations: The Federal rules restrict any use of the information to criminally investigate or prosecute any alcohol or drug abuse patient.[facility] HospitalIn the event this information is protected by the Federal Confidentiality of Alcohol and Drug Abuse Patient Records regulations: The Federal rules restrict any use of the information to criminally investigate or prosecute any alcohol or drug abuse patient.[facility] HospitalIn the event this information is protected by the Federal Confidentiality of Alcohol and Drug Abuse Patient Records regulations: The Federal rules restrict any use of the information to criminally investigate or prosecute any alcohol or drug abuse patient.[facility] HospitalIn the event this information is protected by the Federal Confidentiality of Alcohol and Drug Abuse Patient Records regulations: The Federal rules restrict any use of the information to criminally investigate or prosecute any alcohol or drug abuse patient.[facility] HospitalIn the event this information is protected by the Federal Confidentiality of Alcohol and Drug Abuse Patient Records regulations: The Federal rules restrict any use of the information to criminally investigate or prosecute any alcohol or drug abuse patient.[facility] HospitalIn the event this information is protected by the Federal Confidentiality of Alcohol and Drug Abuse Patient Records regulations: The Federal rules restrict any use of the information to criminally investigate or prosecute any alcohol or drug abuse patient.[facility] HospitalIn the event this information is protected by the Federal Confidentiality of Alcohol and Drug Abuse Patient Records regulations: The Federal rules restrict any use of the information to criminally investigate or prosecute any alcohol or drug abuse patient.[facility] HospitalIn the event this information is protected by the Federal Confidentiality of Alcohol and Drug Abuse Patient Records regulations: The Federal rules restrict any use of the information to criminally investigate or prosecute any alcohol or drug abuse patient.[facility] HospitalIn the event this information is protected by the Federal Confidentiality of Alcohol and Drug Abuse Patient Records regulations: The Federal rules restrict any use of the information to criminally investigate or prosecute any alcohol or drug abuse patient.[facility] HospitalIn the event this information is protected by the Federal Confidentiality of Alcohol and Drug Abuse Patient Records regulations: The Federal rules restrict any use of the information to criminally investigate or prosecute any alcohol or drug abuse patient.[facility] HospitalIn the event this information is protected by the Federal Confidentiality of Alcohol and Drug Abuse Patient Records regulations: The Federal rules restrict any use of the information to criminally investigate or prosecute any alcohol or drug abuse patient.[facility] HospitalIn the event this information is protected by the Federal Confidentiality of Alcohol and Drug Abuse Patient Records regulations: The Federal rules restrict any use of the information to criminally investigate or prosecute any alcohol or drug abuse patient.[facility] HospitalIn the event this information is protected by the Federal Confidentiality of Alcohol and Drug Abuse Patient Records regulations: The Federal rules restrict any use of the information to criminally investigate or prosecute any alcohol or drug abuse patient.[facility] HospitalIn the event this information is protected by the Federal Confidentiality of Alcohol and Drug Abuse Patient Records regulations: The Federal rules restrict any use of the information to criminally investigate or prosecute any alcohol or drug abuse patient.[facility] HospitalIn the event this information is protected by the Federal Confidentiality of Alcohol and Drug Abuse Patient Records regulations: The Federal rules restrict any use of the information to criminally investigate or prosecute any alcohol or drug abuse patient.[facility] HospitalIn the event this information is protected by the Federal Confidentiality of Alcohol and Drug Abuse Patient Records regulations: The Federal rules restrict any use of the information to criminally investigate or prosecute any alcohol or drug abuse patient.[facility] HospitalIn the event this information is protected by the Federal Confidentiality of Alcohol and Drug Abuse Patient Records regulations: The Federal rules restrict any use of the information to criminally investigate or prosecute any alcohol or drug abuse patient.[facility] HospitalIn the event this information is protected by the Federal Confidentiality of Alcohol and Drug Abuse Patient Records regulations: The Federal rules restrict any use of the information to criminally investigate or prosecute any alcohol or drug abuse patient.[facility] HospitalIn the event this information is protected by the Federal Confidentiality of Alcohol and Drug Abuse Patient Records regulations: The Federal rules restrict any use of the information to criminally investigate or prosecute any alcohol or drug abuse patient.[facility] HospitalIn the event this information is protected by the Federal Confidentiality of Alcohol and Drug Abuse Patient Records regulations: The Federal rules restrict any use of the information to criminally investigate or prosecute any alcohol or drug abuse patient.[facility] HospitalIn the event this information is protected by the Federal Confidentiality of Alcohol and Drug Abuse Patient Records regulations: The Federal rules restrict any use of the information to criminally investigate or prosecute any alcohol or drug abuse patient.[facility] HospitalIn the event this information is protected by the Federal Confidentiality of Alcohol and Drug Abuse Patient Records regulations: The Federal rules restrict any use of the information to criminally investigate or prosecute any alcohol or drug abuse patient.[facility] Reason for Visit (unrecogniz ed section and content) Reason Comments Physical Therapy PT Progress Note Specialty Diagnoses / Procedures Referred By Contac t Referred To Contact [facility] Diagnoses Status post cervical spinal fusion Chronic right shoulder pain Procedures CONSULT TO PHYSICAL THERAPY PHYSICAL THERAPY EVALUATION HIGH COMPLEX 45 MINS May[facility] Sheehan [facility] [address] [place] [address] Phone: tel: fax: [facility] [address] [place] [address] Referral ID Status Reason Start Date Expiration Date Visits Requested Visits Authorized [id number] Authorized PCP Requested Referral Auto-Generate d Referral [...] Sheehan MD [address] [place] [address] [facility] [address] [place] [address] Referral ID Status Reason Start Date Expiration Date V isits Requested Visits Authorized [id number] Closed PCP Requested Referral 09/21/2024 09/21/2025 1 1 Reason Comments Established Patient Reason Comments Radiology CT Specialty Diagnoses / Procedures Referred By Contac t Referred To Contact CT IMAGING Diagnoses Spinal stenosis of cervical region Procedures CT CERVICAL SPINE WO IVCON CT CERVICAL SPINE W/O CONTRAST MATERIAL Mayank Sheehan [facility] [address] [facility] [address] [place] [address] [place] [address] Referral ID Status Reason Start Date Expiration Date V isits Requested Visits Authorized [id number] Closed Auto-Generat ed Referral Patient Cleared - [...] not wanting to le [facility] PM Reason Comments Patient Update Returning Patient's [...] MD [address] [place] [address] Phone: tel: fax: [facility] [address] [address] Referral ID Status Reason Start Date Expiration Date Visits Requested Visits Authorized [id number] Authorized PCP Requested Referral Auto-Generate d Referral [...] MD [address] [place] [address] Phone: tel: fax: [facility] Referral ID Status Reason Start Date Expiration Date V isits Requested Visits Authorized [id number] Closed Auto-Generate d Referral 02/23/2025 03/25/2026 1 [...] BE BASED ON THE PRIMARY CLINICAL RECORDS. [employer] provides no warranty or guarantee of the accuracy or completeness of information in this document.
--- NOTE | 2025-09-22 11:55 | PCM.HP.STD ---
HPI - General General Date of Admission: 09/22/25 Date of Service: 09/22/25 Chief Complaint: Positive Cologuard and GERD HPI Narrative Patient referred from her primary care provider due to positive Cologuard test a few months ago. Patient's last colonoscopy was 6 to 7 years ago and she notes she had polyps that were benign. Patient takes a lot of pain medication and psychiatric medications which cause constipation. She typically has a bowel movement daily but does have intermittent constipation will take MiraLAX as needed. She had not noted any significant changes in her bowel habits. She denies blood in her stool,, unintentional weight loss, diarrhea or abdominal pain. Patient's father had metastatic cancer but she is unsure of the primary cancer. Patient also endorses a long history of GERD and is taking pantoprazole for many years. She does not currently smoke or drink alcohol. She is currently on Mounjaro and has lost 40 pounds and had a reduction in her A1c. [facility] Medical History Claustrophobia Hernia Wears glasses Post-menopausal Marijuana use Alcohol use Ambulates with cane Arthritis Blood disorder Restless legs Injury of back Injury of head and neck Syncope Dietary restriction Gastric reflux Former smoker CPAP (continuous positive airway pressure) dependence Chronic cough Hypertension Leg cramps History of pain when walking History of normal Holter exam History of echocardiogram History of stress test Cardiology follow-up encounter Ventral hernia Coronary artery disease CALVIN (generalized anxiety disorder) MDD (major depressive disorder) Lumbar foraminal stenosis Hyperlipidemia Peripheral neuropathy Type 2 diabetes mellitus COPD (chronic obstructive pulmonary disease) Atherosclerosis of [place] arteries of extremities with rest pain, left leg Aortoiliac occlusive disease Home Medications ?Medication ?Instructions ?Recorded ?Last Taken ?Type atorvastatin 40 mg tablet 40 mg PO DAILY 05/12/24 09/21/25 History methocarbamol 500 mg tablet 1,000 mg PO .QID PRN pain 05/12/24 09/21/25 History pantoprazole 40 mg tablet,delayed 40 mg PO DAILY 05/12/24 09/21/25 History release albuterol sulfate 90 mcg/actuation 1 inh inhalation Q4H PRN shortness 05/20/24 09/22/25 History aerosol inhaler of breath or wheezing clopidogrel 75 mg tablet 75 mg PO QDAY 05/20/24 09/16/25 History empagliflozin 10 mg tablet 10 mg PO DAILY 05/20/24 09/16/25 History (Jardiance) lidocaine 5 % topical patch 1 patch topical QHS 05/20/24 Unknown History aripiprazole 5 mg tablet 5 mg PO QDAY 08/11/24 09/22/25 History hydroxyzine HCl 25 mg tablet 25 mg PO TID PRN anxiety 08/11/24 09/21/25 History aspirin 81 mg tablet,delayed 81 mg PO QDAY 09/16/24 09/16/25 History release fluticasone 250 mcg-salmeterol 50 1 ea inhalation BID 10/01/24 09/20/25 History mcg/dose blistr powdr for inhalation (Advair Diskus) fluticasone propionate 50 2 spray intranasal QDAY 10/01/24 Unknown History mcg/actuation nasal spray,suspension (Allergy Relief (fluticasone)) amlodipine 5 mg tablet 5 mg PO QDAY #90 tabs 04/01/25 09/22/25 Rx metoprolol succinate 50 mg 50 mg PO QDAY #90 tabs 04/01/25 09/22/25 Rx tablet,extended release 24 hr tramadol 50 mg tablet 100 mg PO Q8H PRN pain 04/01/25 09/21/25 History naproxen 500 mg tablet,delayed 500 mg PO BID 07/15/25 09/21/25 History release pregabalin 200 mg capsule 200 mg PO TID PRN pain (scale 07/15/25 09/21/25 History score 1-3) tizanidine 4 mg tablet 4 mg PO BID PRN muscle spasticity 07/15/25 09/21/25 History cariprazine 1.5 mg capsule 1.5 mg PO QDAY 08/04/25 09/22/25 History (Vraylar) ergocalciferol (vitamin D2) 50 mcg 50 mcg PO QWEEK 08/04/25 09/15/25 History (2,000 unit) capsule sennosides 8.6 mg capsule (senna) 17.2 mg PO QHS PRN constipation 08/04/25 Unknown History tirzepatide 7.5 mg/0.5 mL 7.5 mg subcut QWEEK 08/04/25 09/13/25 History subcutaneous pen injector (Gertrudis) CPAP - Continuous Positive Airway 09/03/25 Unknown History Pressure([facility] INFORMATIONAL USE ONLY) polyethylene glycol 3350 17 4 g PO QDAY PRN constipation 09/15/25 09/22/25 History gram/dose oral powder (Miralax) acetaminophen 500 mg capsule 1,000 mg PO BID PRN pain 09/20/25 09/21/25 History Allergy/AdvReac Type Severity Reaction Status Date / Time No Known Allergies Allergy Verified 09/22/25 11:43 Family History Mother Heart disease Father Cancer Surgical History H/O shoulder surgery Hx of arthroscopic knee surgery H/O angioplasty S/P insertion of iliac artery stent (~05/2022) History of carotid endarterectomy History of oophorectomy History of cardiac catheterization History of spinal surgery History of colonoscopy Presence of stent in coronary artery Hx of CABG History of hysterectomy History of cholecystectomy Social History Smoking Status: Former smoker Tobacco: How many years used: 38 how long ago did patient quit smokin months second hand exposure: Yes alcohol intake: never substance use type: does not use what type of physical activity do you participate in: none ROS Constitutional Constitutional: Denies fatigue, fever(s), poor appetite, weight gain or weight loss Gastrointestinal Gastrointestinal: Denies belching, bloating, change in bowel habits, change in stool character, chewing difficulty, coffee ground emesis, constipation, cramping, diarrhea, dyspepsia, dysphagia, early satiety, excessive flatus, fecal incontinence, heartburn, hematemesis, hematochezia, hemorrhoids, loose stools, melena, nausea, odynophagia, rectal bleeding, tenesmus, vomiting or weight changes Patient's Goals Of Care . What would you like to achieve or improve as a result of your hospital stay?: none Vital Signs Vital Signs Vital Signs: 09/22/25 11:48 09/22/25 11:48 09/22/25 11:48 Temperature 98.0 F Temperature Source Temporal Pulse Rate 87 Respiratory Rate 14 Respiratory Pattern Normal Blood Pressure 102/17 L Blood Pressure Mean 45 Blood Pressure Source Monitor Blood Pressure Position Semi-Fowlers Blood Pressure Location Left Arm Baseline BP 102/77 Pulse Ox 100 Oxygen Delivery Method Room Air Weight Weight: 149 lb 14.629 oz Body Mass Index (BMI) 27.3 Physical Exam Const alert, oriented x3, no apparent distress and healthy appearing General Appearance: cooperative GI normal to inspection, nondistended, normoactive bowel sounds, soft to palpation, non-tender and non-distended Percussion: normal to percussion Rectal Exam: deferred Assessment & Plan Assessment/Plan (1) GERD (gastroesophageal reflux disease): (2) Positive colorectal cancer screening using Cologuard test: PLAN: Assessment and Plan Assessment and Plan (1) Positive colorectal cancer screening using Cologuard test: Status: Acute Plan: Grant is a 60-year-old female patient with a past medical history of diabetes, hyperlipidemia, COPD, AVE, coronary artery disease status post CABG, and hypertension here today for evaluation. Patient recently had a positive Cologuard test done with her primary care provider was referred to GI for colonoscopy. Per patient, last colonoscopy was 6 to 7 years ago with benign polyps. She denies any recent significant changes in her bowel habits. She does have constipation due to her pain medication and psychiatric meds. She takes MiraLAX as needed for this. Patient also with a history of GERD. She has had an EGD but it was many years ago. She takes pantoprazole daily. She will undergo colonoscopy and EGD for further evaluation. Risk and procedure was explained to patient and she was agreeable to proceed. - EGD - Colonoscopy - Continue MiraLAX as needed - Continue pantoprazole Note: Portions of this note may have been selectively carried forward from previous documentation to ensure continuity and accuracy of the clinical record. All imported information has been reviewed and updated as necessary to reflect the current patient status, findings, and clinical decision-making for this encounter. [employer] speech recognition vest maker software was used to create portions of this document. Sound alike and misspelled words, as well as other vest maker errors may be contained in the documentation. (2) GERD (gastroesophageal reflux disease): Status: Acute ]
[2025-09-22] MEDS: Lactated Ringers 1,000 ML 15 ML IV (12:00)
--- NOTE | 2025-09-22 12:30 | COLBX_PTH ---
PATIENT: CIHDI VELASQUEZ LOC: EN U#:[id number] AGE/SX: 60/F ROOM: RE09/22/[address]: Dr. Duc Ortiz DO : 1965 BED: DIS: 09/22/2025 SPEC #: [id number] RECD: 09/24/25 07:20 STATUS: HENRRY SINAN #: [id number] POWER: 09/22/25 12:[address]: Duc Ortiz DEPT: SURGICAL PATHOLOGY RECD BY: Dustin Agustin ENTERED: 09/24/25 10:30 SP TYPE: COLON BX OTHR DR: Ce Loza, COORDINATOR CARDIOPULMONARY SERVICES-C Tissues: A - Esophagus, NOS B - Gastric mucous membrane C - Ascending colon D - SPLENIC FLEXURE E - Sigmoid colon biopsy Procedures: Immunohistochemical Stains Surgery Specimen Level IV HEADER OPERATION: Colonoscopy with polypectomy, EGD with biopsy PRE-OP DIAGNOSIS: GERD, positive colorectal cancer screening using Cologuard test TISSUE SUBMITTED: A- Distal esophagus biopsy, B- Gastric body biopsy, C- Ascending colon polyp, D- Splenic flexure polyp, E- Sigmoid colon polyp MICROSCOPIC DIAGNOSIS A. Esophagus, distal, biopsy: - Squamous mucosa with reactive changes and focal acute inflammation. - Columnar mucosa with reactive epithelial change, negative for dysplasia. - No definitive goblet cell metaplasia observed. - PASD stain is negative for fungal organisms. B. Stomach, body, biopsy: - Oxyntic mucosa with features of reactive gastropathy. - IHC negative for H. pylori organisms. C. Colon, ascending, polyp, biopsy: - Tubular adenoma. D. Colon, splenic flexure, polyp, biopsy: - Tubular adenoma. E. Colon, sigmoid, polyp, biopsy: - Features suggestive of hyperplastic polyp - see note. Note: The tissue is distorted with cautery artifact, limiting the assessment. Low grade dysplasia cannot be completely ruled out. MICROSCOPIC DESCRIPTION Slides are reviewed. All matched controls reacted appropriately. These tests were developed and their performance characteristics determined by [facility]. They may not have been cleared or approved by the U.S. Food and Drug Administration. The FDA has determined that such clearance or approval is not necessary. The above immunohistochemical markers and/or special?stains have been reviewed by the Pathologist. GROSS DESCRIPTION A. Received in fixative is one container labeled with the patient's name and designated Distal esophagus biopsy. The specimen consists of two irregular fragments of garcia tissue that measure 1.2 x 0.4 x 0.2 cm. The specimen is totally submitted in one cassette. B. Received in fixative is one container labeled with the patient's name and designated Gastric body biopsy. The specimen consists of two irregular fragments of garcia tissue that measure 0.5 x 0.5 x 0.3 cm. The specimen is totally submitted in one cassette. C. Received in fixative is one container labeled with the patient's name and designated Ascending colon polyp. The specimen consists of multiple irregular fragments of garcia tissue that in aggregate measure 0.6 x 0.5 x 0.3 cm. The specimen is totally submitted in one cassette. D. Received in fixative is one container labeled with the patient's name and designated Splenic flexure polyp. The specimen consists of multiple irregular fragments of garcia tissue that in aggregate measure 0.6 x 0.5 x 0.2 cm. The specimen is totally submitted in one cassette. E. Received in fixative is one container labeled with the patient's name and designated Sigmoid colon polyp. The specimen consists of multiple irregular fragments of garcia tissue that in aggregate measure 1 x 0.3 x 0.2 cm. The specimen is totally submitted in one cassette. 09/24/2025 CPT:[id number]
--- NOTE | 2025-09-22 12:39 | PRE.ANES_ITS ---
ASA Classification* ASA Classification ASA Classification: 3 Assessment & Plan Anesthesia* Anesthesia Assessment Anesthesia Assessment: Discussed sedation and/or anesthesia options, risks, benefits, and alternatives with patient/parents/legal guardian/POA. Questions invited. The patient/parents/legal guardian/POA seems to understand and agrees to proceed with anesthesia plan. Reviewed the physical assessment, medical history, allergy history and patient home medications list prior to surgery/procedure/anesthetic and documented any changes. Performed airway and anesthesia risk assessments. Anesthesia Type Anesthesia Type: MAC Anesthesia Focused Assessment* Temperature: 98.0 F Pulse Rate: 87 Blood Pressure: 102/17 Respiratory Rate: 14 Pulse Ox: 100 Airway Assessment Mouth opens: >3 cm Mallampati Score: II Labs Anesthesia Preop lab: CBC WBC, (4.4-11.0) 10.6 K/mm3 10/01/24, 11:39 RBC, (4.2-5.4) 5.31 M/mm3 10/01/24, 11:39 Hgb, (12.0-15.0) 16.3 g/dL H 10/01/24, 11:39 Hct, (37-47) 49.5 % H 10/01/24, 11:39 Plt Count, (150-450) 235 K/mm3 10/01/24, 11:39 CHEMISTRY Potassium, (3.5-5.1) 3.9 mmol/L 09/02/24, 08:59 Sodium, (136-145) 139 mmol/L 09/02/24, 08:59 BUN, (7-18) 17 mg/dL 09/02/24, 08:59 Creatinine, (0.55-1.02) 0.75 mg/dL 09/02/24, 08:59 Glucose, (74-106) 176 mg/dL H 09/02/24, 08:59 POC Glucose, (74-106) 147 mg/dL H Today, 11:42 COAG Pre-Assessment Diagnosis/Proposed Procedure Planned Operative Procedure(s): Colonoscopy,EGD Anesthesia History 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 When Was Last Pacemaker Check QUESTION #4 FULL TEXT: You/Your Family Experience fever (hyperthermia) with Anesthesia Last Oral Intake Last Oral intake: Last Oral Intake NPO since 05:00 09/22/25 11:48 Meds taken in AM with sips of water? Meds patient instructed to take am of surgery PONV PONV - utilities service investigator: PONV - utilities service investigator Female Yes 09/20/25 11:03 HX of Motion Sickness No 09/20/25 11:03 HX of N/V After Surgery No 09/20/25 11:03 Non-Smoker Yes 09/20/25 11:03 Duration of Surgery greater No 09/20/25 11:03 than 60 minutes Number of Risk Factors 2 09/20/25 11:03 PONV Score Moderate Risk 09/20/25 11:03 Height & Weight Height & Weight: Anesthesia: Height & Weight Height 5 ft 2 in 09/22/25 11:48 Weight: 68 kg 09/22/25 11:48 Body Mass Index (BMI) 27.3 09/22/25 11:48 Respiratory Assessment Respiratory Assessment - utilities service investigator: Respiratory Tract Infection Hx - utilities service investigator Hx Respiratory Tract Infection No 09/20/25 11:03 STOP Sleep Apnea STOP Sleep Apnea - utilities service investigator: STOP Sleep Apnea - utilities service investigator Hx Hypertension No 09/20/25 11:03 Hx Sleep Apnea Yes 09/20/25 11:03 CPAP Yes: ONLY 2-4 HOURS A NIGHT 09/20/25 11:03 BIPAP No 09/20/25 11:03 Do you snore loudly (louder than talking or can be heard Do you often feel tired/ fatigued/ sleepy during daytime? Has anyone observed you stop breathing during sleep? STOP Results Positive 09/20/25 11:03 QUESTION #5 FULL TEXT : Do you snore loudly (louder than talking or can be heard through closed doors)? Tobacco Use History Tobacco Use History - utilities service investigator: Tobacco Use History - utilities service investigator Tobacco Use Smoking Status Former smoker 09/20/25 11:03 Hx Tobacco Use No 09/20/25 11:03 Years Smoking Packs Smoked per Day Smoking Cessation Date was Yes - quit smoking within 15 09/20/25 11:03 within the last 15 years years Hx Smoking Cessation Date 09/30/23 09/20/25 11:03 Hx Smoking Cessation No 09/20/25 11:03 Counseling Hematologic Medial History Hematologic Hx - utilities service investigator: Hematologic Medical Hx - translational specialist Hx of Blood Transfusion No 09/20/25 11:03 Hx of Transfusion in last 3 No 09/20/25 11:03 Months Date of Last Transfusion (if within last 3 months) Ever experience any problems No 09/20/25 11:03 with transfusion(s)? Specify any problems Hx of Preganancy in last 3 No 09/20/25 11:03 Months Nurse Filling Out Transfusion JZOLLINGE 09/20/25 11:03 & Questions: Date: 09/20/25 09/20/25 11:03 Time: 11:06 09/20/25 11:03 Patient unable to answer at this time (ie. confused, unrespo /Reproduction History /Reproductive History - utilities service investigator: /Reproductive Hx- utilities service investigator Hx Now No 09/20/25 11:03 Gestational Age (in weeks): EDC: Hx Hx Para Hx Section SAB No 09/20/25 11:03 Does the father of the baby or his family experience fever w Father of the baby Malignant Hypertension history comment Active Medications Active Medications: Current Medications Generic Name Dose Route Start Last Admin Trade Name Freq PRN Reason Stop Dose Admin Lactated Ringer's 1,000 mls @ 15 mls/hr 09/22/25 11:30 09/22/25 12:00 IV 15 mls/hr .Q48H JOSE Administration PFSH Medical History Claustrophobia Hernia Wears glasses Post-menopausal Marijuana use Alcohol use Ambulates with cane Arthritis Blood disorder Restless legs Injury of back Injury of head and neck Syncope Dietary restriction Gastric reflux Former smoker CPAP (continuous positive airway pressure) dependence Chronic cough Hypertension Leg cramps History of pain when walking History of normal Holter exam History of echocardiogram History of stress test Cardiology follow-up encounter Ventral hernia Coronary artery disease CALVIN (generalized anxiety disorder) MDD (major depressive disorder) Lumbar foraminal stenosis Hyperlipidemia Peripheral neuropathy Type 2 diabetes mellitus COPD (chronic obstructive pulmonary disease) Atherosclerosis of [place] arteries of extremities with rest pain, left leg Aortoiliac occlusive disease Home Medications ?Medication ?Instructions ?Recorded ?Last Taken ?Type atorvastatin 40 mg tablet 40 mg PO DAILY 05/12/2408/31 History methocarbamol 500 mg tablet 1,000 mg PO .QID PRN pain 05/12/24 09/21/25 History pantoprazole 40 mg tablet,delayed 40 mg PO DAILY 05/1209/21/25 History release albuterol sulfate 90 mcg/actuation 1 inh inhalation Q4 H PRN shortness 05/20/24 09/22/25 History aerosol inhaler of breath or wheezing clopidogrel 75 mg tablet 75 mg PO QDAY 05/20/2409/16 History empagliflozin 10 mg tablet 10 mg PO DAILY 05/20/24 History (Jardiance) lidocaine 5 % topical patch 1 patch topical QHS Unknown History aripiprazole 5 mg tablet 5 mg PO QDAY 08/11/24 History hydroxyzine HCl 25 mg tablet 25 mg PO TID PRN anxiety 08/11/24 09/21/25 History aspirin 81 mg tablet,delayed 81 mg PO QDAY 09/16/24 History release fluticasone 250 mcg-salmeterol 50 1 ea inhalation BID 10/01/24 09/20/25 History mcg/dose blistr powdr for inhalation (Advair Diskus) fluticasone propionate 50 2 spray intranasal QDAY 11/24 Unknown History mcg/actuation nasal spray,suspension (Allergy Relief (fluticasone)) amlodipine 5 mg tablet 5 mg PO QDAY #90 tabs 09/22/25 Rx metoprolol succinate 50 mg 50 mg PO QDAY #90 tabs 12/2209/22/25 Rx tablet,extended release 24 hr tramadol 50 mg tablet 100 mg PO Q8H PRN pain 04/0109/21/25 History naproxen 500 mg tablet,delayed 500 mg PO BID 07/15/25 09/21/25 History release pregabalin 200 mg capsule 200 mg PO TID PRN pain (scal e 07/15/25 09/21/25 History score 1-3) tizanidine 4 mg tablet 4 mg PO BID PRN muscle spast icity 07/15/25 09/21/25 History cariprazine 1.5 mg capsule 1.5 mg PO QDAY 08/04/25 History (Vraylar) ergocalciferol (vitamin D2) 50 mcg 50 mcg PO QWEEK 02/2109/15/25 History (2,000 unit) capsule sennosides 8.6 mg capsule (senna) 17.2 mg PO QHS PRN c onstipation 08/04/25 Unkno wn History tirzepatide 7.5 mg/0.5 mL 7.5 mg subcut QWEEK 08/04/25 09/13/25 History subcutaneous pen injector (Gertrudis) CPAP - Continuous Positive Airway 09/03/25 Unknown Hi story Pressure([facility] INFORMATIONAL USE ONLY) polyethylene glycol 3350 17 4 g PO QDAY PRN constipati on 09/15/25 09/22/25 History gram/dose oral powder (Miralax) acetaminophen 500 mg capsule 1,000 mg PO BID PRN pain 09/20/25 09/21/25 History Allergy/AdvReac Type Severity Reaction Status Date / Time No Known Allergies Allergy Verified 09/22/25 11:43 Family History Mother Heart disease Father Cancer Surgical History H/O shoulder surgery Hx of arthroscopic knee surgery H/O angioplasty S/P insertion of iliac artery stent (~05/2022) History of carotid endarterectomy History of oophorectomy History of cardiac catheterization History of spinal surgery History of colonoscopy Presence of stent in coronary artery Hx of CABG History of hysterectomy History of cholecystectomy Social History Smoking Status: Former smoker Tobacco: How many years used: 38 how long ago did patient quit smokin months second hand exposure: Yes alcohol intake: never substance use type: does not use what type of physical activity do you participate in: none Review of Systems (Anesthesia) ROS Narrative System reviewed and no additional complaints, except as documented.
[2025-09-22] MEDS: Lidocaine 1% (5 ml sdv) 5 ML Vial 8 ML IV (13:42)
--- NOTE | 2025-09-22 14:15 | OP.PROVAT_ITS ---
09/22/2025 Lee Loyola Re : Upper GI endoscopy procedure for Mge Musa Dear Denia This procedure was performed on Monday, September 22, 2025. My impressions and recommendations are as follows: Impressions : - Z-line irregular, 39 cm from the incisors. Biopsied. - Chronic gastritis. Biopsied. - No gross lesions in the second portion of the duodenum. Recommendations : - Discharge patient to home. - Resume previous diet. - Continue present medications. - Await pathology results. My findings are described in the full procedure note, which is enclosed. If I can be of further assistance, please feel free to contact me at . Sincerely, Duc Ortiz, 09/22/2025 2:15:23 PM This report has been signed electronically.
--- NOTE | 2025-09-22 14:15 | OP.EGD_ITS ---
Patient Name: Meg Musa Procedure Date: 09/22/2025 1:30 PM Date of : 1965 Age: 60 Procedure: Upper GI endoscopy Indications: Heartburn Providers: DO Javier Verdin MD: Lee Loyola Medicines: Monitored Anesthesia Care Patient Profile: This is a 60 year old female. Refer to note in patient chart for documentation of history and physical. Patient has symptoms of chronic heartburn. Complications: No immediate complications. Procedure: Pre-Anesthesia Assessment: - Prior to the procedure, a History and Physical was performed, and patient medications and allergies were reviewed. The patient is competent. The risks and benefits of the procedure and the sedation options and risks were discussed with the patient. All questions were answered and informed consent was obtained. Patient identification and proposed procedure were verified by the physician in the pre-procedure area. Mental Status Examination: alert and oriented. Airway Examination: normal oropharyngeal airway and neck mobility. Respiratory Examination: clear to auscultation. CV Examination: normal. Prophylactic Antibiotics: The patient does not require prophylactic antibiotics. Prior Anticoagulants: The patient has taken no anticoagulant or antiplatelet agents except for NSAID medication. ASA Grade Assessment: II - A patient with mild systemic disease. After reviewing the risks and benefits, the patient was deemed in satisfactory condition to undergo the procedure. The anesthesia plan was to use monitored anesthesia care (MAC). Immediately prior to administration of medications, the patient was re-assessed for adequacy to receive sedatives. The heart rate, respiratory rate, oxygen saturations, blood pressure, adequacy of pulmonary ventilation, and response to care were monitored throughout the procedure. The physical status of the patient was re-assessed after the procedure. After obtaining informed consent, the endoscope was passed under direct vision. Throughout the procedure, the patient's blood pressure, pulse, and oxygen saturations were monitored continuously. The Colonoscope was introduced through the mouth, and advanced to the second part of duodenum. The upper GI endoscopy was accomplished without difficulty. The patient tolerated the procedure well. Scope In: 1:44:39 PM Scope Out: 1:47:53 PM Total Procedure Duration Time 0 hours 3 minutes 14 seconds Findings: The Z-line was irregular and was found 39 cm from the incisors. Biopsies were taken with a cold forceps for histology. Localized moderate inflammation characterized by erosions and erythema was found in the gastric body. Biopsies were taken with a cold forceps for histology. Biopsies were taken with a cold forceps for Helicobacter pylori testing. Verification of patient identification for the specimen was done. Estimated blood loss was minimal. No gross lesions were noted in the second portion of the duodenum. Impression: - Z-line irregular, 39 cm from the incisors. Biopsied. - Chronic gastritis. Biopsied. - No gross lesions in the second portion of the duodenum. Recommendation: - Discharge patient to home. - Resume previous diet. - Continue present medications. - Await pathology results. Procedure Code(s): --- Professional --- 85723, Esophagogastroduodenoscopy, flexible, transoral; with biopsy, single or multiple CPT copyright 2021 [employer]. All rights reserved. The codes documented in this report are preliminary and upon employment adjudicator review may be revised to meet current compliance requirements. Duc Ortiz DO 09/22/2025 2:15:23 PM This report has been signed electronically. Number of Addenda: 0 Note Initiated On: 09/22/2025 1:30 PM
--- NOTE | 2025-09-22 14:20 | OP.COLON_ITS ---
Patient Name: Meg Musa Procedure Date: 09/22/2025 1:48 PM Date of : 1965 Age: 60 Procedure: Colonoscopy Indications: Screening for colorectal malignant neoplasm Providers: DO Javier Verdin MD: Lee Loyola Medicines: Monitored Anesthesia Care Patient Profile: This is a 60 year old female. Refer to note in patient chart for documentation of history and physical. Patient has symptoms of chronic heartburn. Last Colonoscopy: none. The patient's first colonoscopy is today. Complications: No immediate complications. Procedure: Pre-Anesthesia Assessment: - Prior to the procedure, a History and Physical was performed, and patient medications and allergies were reviewed. The patient is competent. The risks and benefits of the procedure and the sedation options and risks were discussed with the patient. All questions were answered and informed consent was obtained. Patient identification and proposed procedure were verified by the physician in the pre-procedure area. Mental Status Examination: alert and oriented. Airway Examination: normal oropharyngeal airway and neck mobility. Respiratory Examination: clear to auscultation. CV Examination: normal. Prophylactic Antibiotics: The patient does not require prophylactic antibiotics. Prior Anticoagulants: The patient has taken no anticoagulant or antiplatelet agents except for NSAID medication. ASA Grade Assessment: II - A patient with mild systemic disease. After reviewing the risks and benefits, the patient was deemed in satisfactory condition to undergo the procedure. The anesthesia plan was to use monitored anesthesia care (MAC). Immediately prior to administration of medications, the patient was re-assessed for adequacy to receive sedatives. The heart rate, respiratory rate, oxygen saturations, blood pressure, adequacy of pulmonary ventilation, and response to care were monitored throughout the procedure. The physical status of the patient was re-assessed after the procedure. After I obtained informed consent, the scope was passed under direct vision. Throughout the procedure, the patient's blood pressure, pulse, and oxygen saturations were monitored continuously. The Colonoscope was introduced through the anus and advanced to the cecum, identified by appendiceal orifice and ileocecal valve. The colonoscopy was performed without difficulty. The patient tolerated the procedure well. The quality of the bowel preparation was adequate. The ileocecal valve, appendiceal orifice, and rectum were photographed. Scope In: 1:51:19 PM Scope Withdrawal Time 0 hours 16 minutes 22 seconds Scope Out: 2:10:42 PM Total Procedure Duration Time 0 hours 19 minutes 23 seconds Findings: The perianal and digital rectal examinations were normal. Non-bleeding external and internal hemorrhoids were found during retroflexion. The hemorrhoids were Grade II (internal hemorrhoids that prolapse but reduce spontaneously). Two sessile polyps were found in the splenic flexure and ascending colon. The polyps were 5 mm in size. These polyps were removed with a hot snare. Resection and retrieval were complete. Verification of patient identification for the specimen was done. Estimated blood loss was minimal. A 5 mm polyp was found in the sigmoid colon. The polyp was sessile. The polyp was removed with a hot snare. Resection and retrieval were complete. Biopsies were taken with a cold forceps for histology. The exam was otherwise without abnormality. Impression: - Non-bleeding external and internal hemorrhoids. - Two 5 mm polyps at the splenic flexure and in the ascending colon, removed with a hot snare. Resected and retrieved. - One 5 mm polyp in the sigmoid colon, removed with a hot snare. Resected and retrieved. Biopsied. - The examination was otherwise normal. Recommendation: - Discharge patient to home. - Resume previous diet. - Continue present medications. - Await pathology results. - Repeat colonoscopy in 3 years for surveillance. Procedure Code(s): --- Professional --- 05190, Colonoscopy, flexible; with removal of tumor(s), polyp(s), or other lesion(s) by snare technique CPT copyright 2021 [employer]. All rights reserved. The codes documented in this report are preliminary and upon cook enchilada review may be revised to meet current compliance requirements. Duc Ortiz DO 09/22/2025 2:19:53 PM This report has been signed electronically. Number of Addenda: 0 Note Initiated On: 09/22/2025 1:48 PM
--- NOTE | 2025-09-22 14:20 | OP.PROVAT_ITS ---
09/22/2025 Lee Loyola Re : Colonoscopy procedure for Meg Musa Dear Denia This procedure was performed on Monday, September 22, 2025. My impressions and recommendations are as follows: Impressions : - Non-bleeding external and internal hemorrhoids. - Two 5 mm polyps at the splenic flexure and in the ascending colon, removed with a hot snare. Resected and retrieved. - One 5 mm polyp in the sigmoid colon, removed with a hot snare. Resected and retrieved. Biopsied. - The examination was otherwise normal. Recommendations : - Discharge patient to home. - Resume previous diet. - Continue present medications. - Await pathology results. - Repeat colonoscopy in 3 years for surveillance. My findings are described in the full procedure note, which is enclosed. If I can be of further assistance, please feel free to contact me at . Sincerely, Duc Friend, 09/22/2025 2:19:53 PM This report has been signed electronically.
--- NOTE | 2025-09-22 14:21 | PCM.POST.ANE ---
Anesthesia: Postop Eval I Current Vital Signs Temperature: 98.1 F Pulse Rate: 88 Blood Pressure: 125/77 Respiratory Rate: 16 Pulse Ox: 99 Assessment Airway patent: Yes Spontaneous unlabored respirations: Yes nausea: No Vomiting: No Anesthesia Complication: No Fluid Hydration Crystalloid volume administer (ml): 700 Total IV fluid infused: 700 Progress Note Anesthesia document: Postop Eval 1 completed: Yes
--- NOTE | 2025-09-22 15:09 | POSTOPAN2_ITS ---
Anesthesia Postop Eval I Sum Postop Eval Completion status Anesthesia document: Postop Eval 1 completed: Yes Anesthesia Postop Eval I Summary Anesthesia Postop Eval I Summary: Anesthesia Postop Eval I: Assessment Summary Airway patent Yes 09/22/25 14:21 [email or web address] Spontaneous unlabored Yes 09/22/25 14:21 [email or web address] respirations Mental status nausea No 09/22/25 14:21 [email or web address] Vomiting No 09/22/25 14:21 [email or web address] Anesthesia Postop Eval I: Fluid Summary Crystalloid volume administer 700 09/22/25 14:21 [email or web address] (ml) Colloids volume administered ( ml) Blood Product volume administered (ml) Total IV fluid infused 700 09/22/25 14:21 [email or web address] Anesthesia Postop Eval I: Summary Notes Anesthesia Complication No 09/22/25 14:21 [email or web address] Anesthesia Complication Comment: Post-operative progress note Anesthesia: Postop Eval II Evaluation Mental status: Awake Pain Level: 0 nausea: No Vomiting: No
--- NOTE | 2025-09-22 15:09 | PCM.POSTANE2 ---
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 [email or web address] respirations Mental status nausea No 09/22/25 14:21 WORKERS COMPENSATION CLAIMS [email or web address] Vomiting No 09/22/25 14:21 WORKERS COMPENSATION CLAIMS [email or web address] Anesthesia Postop Eval I: Fluid Summary Crystalloid volume administer 700 09/22/25 14:21 WORKERS COMPENSATION CLAIMS [email or web address] (ml) Colloids volume administered ( ml) Blood Product volume administered (ml) Total IV fluid infused 700 09/22/25 14:21 WORKERS COMPENSATION CLAIMS [email or web address] Anesthesia Postop Eval I: Summary Notes Anesthesia Complication No 09/22/25 14:21 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
== END 2025-09-22 14:49 | disposition home or self-care (01) ==
LOC: EN 11:09 → AC 11:11
PROVIDERS: PCP Registered Nurse; Referring Provider Registered Nurse; Visit Provider Internal Medicine Gastroenterology
PROC: 0DJD8ZZ Inspection of Lower Intestinal Tract, Via Natural or Artificial Opening Endoscopic (ICD-10-PCS; CPT 45378; principal; 2025-09-22 12:25)
DX: K21.00 Gastro-esophageal reflux disease with esophagitis, without bleeding (principal); J44.9 Chronic obstructive pulmonary disease, unspecified; E11.9 Type 2 diabetes mellitus without complications; E78.5 Hyperlipidemia, unspecified; I25.10 Atherosclerotic heart disease of native coronary artery without angina pectoris; K64.4 Residual hemorrhoidal skin tags; Z87.891 Personal history of nicotine dependence; I10 Essential (primary) hypertension; R19.5 Other fecal abnormalities; Z79.85 Long-term (current) use of injectable non-insulin antidiabetic drugs; Z79.899 Other long term (current) drug therapy; K25.9 Gastric ulcer, unspecified as acute or chronic, without hemorrhage or perforation; K64.1 Second degree hemorrhoids; Z79.82 Long term (current) use of aspirin; K20.90 Esophagitis, unspecified without bleeding; D12.2 Benign neoplasm of ascending colon; D12.3 Benign neoplasm of transverse colon; K63.5 Polyp of colon
CPT/HCPCS: 45380; 45385; 43239; 82962; 88305; 88342